=== PATIENT | male | born 1945 | race Caucasian/White ===

== ENCOUNTER → 2016-05-07 | Outpatient (REF) | payer MEDICARE ==
[~2016-05-07] MED LIST: ASPI81TA45 PO; CITA20TA4 PO; CO Q1CAP PO; CORE3.12 PO; ECHI80CA PO; FURO40TA2 PO; GLIP10TA6 PO; VITAD1000T PO
[2016-05-08 11:35] LABS: ALBUMIN 3.4 GM/DL (3.2-5.2); ALBUMIN/GLOBULIN RATIO 0.87 (1.00-1.93); BILIRUBIN,TOTAL 0.4 MG/DL (0.2-1.0); CALCIUM LEVEL 8.8 MG/DL (8.8-10.2); CREATININE FOR GFR 1.91 MG/DL (0.70-1.30); FOLATE 6.1 NG/ML (>5.4); GLOMERULAR FILTRATION RATE 37.2 (>42); POTASSIUM SERUM 4.4 MEQ/L (3.5-5.1); TOTAL PROTEIN 7.3 GM/DL (6.4-8.2)
[2016-05-08 11:41] LABS: BASO # 0.1 K/mm3 (0.0-0.2); BASO % 1.1 % (0.0-1.0); EOS # 0.2 K/mm3 (0.0-0.50); EOS % 2.7 % (0.0-3.0); LARGE UNSTAINED CELL # 0.2 K/mm3 (0.0-0.4); LARGE UNSTAINED CELL % 3.1 % (0.0-4.0); LYMPH # 1.5 K/mm3 (1.5-4.5); LYMPH % 21.2 % (24.0-44.0); MEAN CORPUSCULAR HEMOGLOBIN 31.5 pg (27.0-33.0); MEAN CORPUSCULAR HGB CONC 32.8 g/dl (32.0-36.5); MONO # 0.4 K/mm3 (0.0-0.8); MONO % 4.9 % (0.0-5.0); NEUTROPHILS # 4.8 K/mm3 (1.8-7.7); NEUTROPHILS % 67.1 % (36.0-66.0); PLATELET COUNT, AUTOMATED 149 k/mm3 (150-450); RED CELL DISTRIBUTION WIDTH 12.4 % (11.5-14.5); WHITE BLOOD COUNT 7.1 K/mm3 (4.0-10.0)
== END ==
LOC: M SFHCCLAY 14:51
PROVIDERS: ATTEND Family Medicine
DX: R06.02 Shortness of breath (principal); D64.9 Anemia, unspecified; E11.9 Type 2 diabetes mellitus without complications

== ENCOUNTER → 2016-05-07 | Outpatient (CLI) | payer MEDICARE ==
--- NOTE | 2016-05-07 15:59 | REP ---
Chest x-ray: Two views: History: Shortness of breath and dizziness. Findings: There is a granulomatous calcification projecting in the right upper lobe. The lungs are otherwise well inflated and clear. Pleural angles are sharp. Heart size is normal. There are degenerative changes in the thoracic spine. Impression: No active disease.
== END ==
LOC: M CLY 15:07
PROVIDERS: ATTEND Family Medicine
DX: R06.02 Shortness of breath (principal); D64.9 Anemia, unspecified; Z79.82 Long term (current) use of aspirin; Z79.899 Other long term (current) drug therapy
CPT/HCPCS: 71020; 80053; 82607; 82746; 83540; 85025; 93005; G0463

== ENCOUNTER → 2016-05-30 | Outpatient (REF) | payer MEDICARE ==
[2016-05-30 11:55] LABS: CALCIUM LEVEL 8.9 MG/DL (8.8-10.2); CREATININE FOR GFR 1.67 MG/DL (0.70-1.30); GLOMERULAR FILTRATION RATE 43.4 (>42); POTASSIUM SERUM 4.7 MEQ/L (3.5-5.1)
== END ==
LOC: M LABDRAWC 11:23
PROVIDERS: ATTEND Internal Medicine Cardiovascular Disease
DX: N18.9 Chronic kidney disease, unspecified (principal); I12.9 Hypertensive chronic kidney disease with stage 1 through stage 4 chronic kidney disease, or unspecified chronic kidney disease

== ENCOUNTER 2016-08-01 17:51 | Emergency (ER) | payer MEDICARE ==
[~2016-08-01] VITALS: Ht 177.8 cm; Wt 90.7 kg
[2016-08-01 17:53] VITALS: BP 159/81
[2016-08-01] MEDS ORDERED: TOUJ1.2I SQ (18:19)
[2016-08-01] MEDS ORDERED: CLEO300C2 PO (19:08)
== END 2016-08-01 20:09 | disposition home or self-care (01) ==
LOC: M ED 19:07
DX: L97.929 Non-pressure chronic ulcer of unspecified part of left lower leg with unspecified severity (principal); I25.10 Atherosclerotic heart disease of native coronary artery without angina pectoris; I10 Essential (primary) hypertension; E10.9 Type 1 diabetes mellitus without complications; Z79.82 Long term (current) use of aspirin; Z79.899 Other long term (current) drug therapy; Z91.018 Allergy to other foods; Z88.0 Allergy status to penicillin

== ENCOUNTER → 2016-10-18 | Outpatient (REF) | payer MEDICARE ==
[~2016-10-18] MED LIST changes: +CLEO300C2 PO; +CO Q100C PO; -CO Q1CAP PO; +TOUJ1.2I SQ
[2016-10-18 11:39] LABS: CALCIUM LEVEL 8.7 MG/DL (8.8-10.2); CREATININE FOR GFR 1.61 MG/DL (0.70-1.30); GLOMERULAR FILTRATION RATE 45.3 (>42); POTASSIUM SERUM 4.3 MEQ/L (3.5-5.1)
== END ==
LOC: M SFHCCLAY 07:40
PROVIDERS: ATTEND Family Medicine
DX: E11.9 Type 2 diabetes mellitus without complications (principal)
CPT/HCPCS: 80048; 83036; G0463

== ENCOUNTER → 2017-04-23 | Outpatient (REF) | payer MEDICARE ==
[2017-04-23 11:32] LABS: BASO # 0.1 10^3/uL (0.0-0.2); BASO % 0.7 % (0.0-1.0); EOS # 0.3 10^3/uL (0.0-0.50); EOS % 2.9 % (0.0-3.0); HEMATOCRIT 36.8 % (42.0-52.0); HEMOGLOBIN 12.2 g/dl (14.0-18.0); IMMATURE GRANULOCYTE % 0.4 % (0-0); LYMPH # 1.4 10^3/uL (1.5-4.5); LYMPH % 14.3 % (24.0-44.0); MEAN CORPUSCULAR HEMOGLOBIN 31.6 pg (27.0-33.0); MEAN CORPUSCULAR HGB CONC 33.2 g/dl (32.0-36.5); MEAN CORPUSCULAR VOLUME 95.3 fl (80.0-96.0); MONO # 0.9 10^3/uL (0.0-0.8); NEUTROPHILS % 72.7 % (36.0-66.0); PLATELET COUNT, AUTOMATED 169 10^3/uL (150-450); RED BLOOD COUNT 3.86 10^6/uL (4.30-6.10); RED CELL DISTRIBUTION WIDTH 13.7 % (11.5-14.5); WHITE BLOOD COUNT 9.7 10^3/uL (4.0-10.0)
[2017-04-23 11:51] LABS: ALBUMIN 3.2 GM/DL (3.2-5.2); ALBUMIN/GLOBULIN RATIO 0.73 (1.00-1.93); ALKALINE PHOSPHATASE 65 U/L (45-117); ALT/SGPT 16 U/L (12-78); ANION GAP 7 MEQ/L (8-16); AST/SGOT 20 U/L (7-37); BILIRUBIN,TOTAL 0.5 MG/DL (0.2-1.0); BLOOD UREA NITROGEN 35 MG/DL (7-18); CALCIUM LEVEL 8.8 MG/DL (8.8-10.2); CARBON DIOXIDE LEVEL 29 MEQ/L (21-32); CHLORIDE LEVEL 103 MEQ/L (98-107); CHOLESTEROL LEVEL 229 MG/DL (<200); CHOLESTEROL RISK RATIO 6.542 (<5); GLOMERULAR FILTRATION RATE 39.7 (>42); GLUCOSE, FASTING 230 MG/DL (83-110); HDL CHOLESTEROL 35 MG/DL (>40); IRON (FE) 68 UG/DL (65-175); NON-HDL-C 194 MG/DL; POTASSIUM SERUM 4.5 MEQ/L (3.5-5.1); SODIUM LEVEL 139 MEQ/L (136-145); TOTAL PROTEIN 7.6 GM/DL (6.4-8.2); TRIGLYCERIDES LEVEL 180 MG/DL (<150)
[2017-04-23 12:39] LABS: ESTIMATED AVERAGE GLUCOSE 235 MG/DL (60-110); HEMOGLOBIN A1c 9.8 %
== END ==
LOC: M SFHCCLAY 07:32
DX: E11.29 Type 2 diabetes mellitus with other diabetic kidney complication (principal); D64.9 Anemia, unspecified
CPT/HCPCS: 83540

== ENCOUNTER → 2017-05-10 | Outpatient (REF) | payer MEDICARE ==
[2017-05-10 12:57] LABS: INFLUENZA A AMPLIFICATION NEGATIVE (NEGATIVE); INFLUENZA B AMPLIFICATION NEGATIVE (NEGATIVE); RSV AMPLIFICATION NEGATIVE (NEGATIVE)
== END ==
LOC: M LAB REF 11:58
DX: J09.X2 Influenza due to identified novel influenza A virus with other respiratory manifestations (principal)
CPT/HCPCS: 87631

== ENCOUNTER → 2017-06-28 | Outpatient (CLI) | payer MEDICARE | LOC: M RAD 12:23 | DX: R06.02 Shortness of breath (principal); I27.20 Pulmonary hypertension, unspecified | CPT/HCPCS: 71046 ==

== ENCOUNTER → 2017-07-30 | Outpatient (REF) | payer MEDICARE ==
[2017-07-31 11:40] LABS: HEMATOCRIT 35.8 % (42.0-52.0); HEMOGLOBIN 11.9 g/dl (13.5-17.5); MEAN CORPUSCULAR HEMOGLOBIN 30.8 pg (27.0-33.0); MEAN CORPUSCULAR HGB CONC 33.2 g/dl (32.0-36.5); MEAN CORPUSCULAR VOLUME 92.7 fl (80.0-96.0); PLATELET COUNT, AUTOMATED 161 10^3/uL (150-450); RED BLOOD COUNT 3.86 10^6/uL (4.30-6.10); WHITE BLOOD COUNT 8.5 10^3/uL (4.0-10.0)
[2017-07-31 11:54] LABS: ANION GAP 8 MEQ/L (8-16); BLOOD UREA NITROGEN 31 MG/DL (7-18); CALCIUM LEVEL 8.8 MG/DL (8.8-10.2); CARBON DIOXIDE LEVEL 25 MEQ/L (21-32); CHLORIDE LEVEL 107 MEQ/L (98-107); CREATININE FOR GFR 1.77 MG/DL (0.70-1.30); GLOMERULAR FILTRATION RATE 40.5 (>42); GLUCOSE, FASTING 238 MG/DL (70-100); POTASSIUM SERUM 4.4 MEQ/L (3.5-5.1); SODIUM LEVEL 140 MEQ/L (136-145)
== END ==
LOC: M SFHCCLAY 15:21
DX: R53.83 Other fatigue (principal); E11.9 Type 2 diabetes mellitus without complications; F41.9 Anxiety disorder, unspecified
CPT/HCPCS: 84443

== ENCOUNTER → 2017-10-14 | Outpatient (CLI) | payer MEDICARE | LOC: M CLY 08:06 | DX: R06.02 Shortness of breath (principal); E11.9 Type 2 diabetes mellitus without complications; D64.9 Anemia, unspecified | CPT/HCPCS: 71046; 80053 ==

== ENCOUNTER → 2017-10-14 | Outpatient (REF) | payer MEDICARE ==
[2017-10-14 11:55] LABS: BASO # 0.1 10^3/uL (0.0-0.2); BASO % 0.6 % (0.0-1.0); EOS # 0.2 10^3/uL (0.0-0.50); EOS % 2.6 % (0.0-3.0); HEMATOCRIT 34.3 % (42.0-52.0); IMMATURE GRANULOCYTE % 0.4 % (0-3.0); LYMPH # 1.1 10^3/uL (1.5-4.5); LYMPH % 12.3 % (24.0-44.0); MEAN CORPUSCULAR HEMOGLOBIN 31.1 pg (27.0-33.0); MEAN CORPUSCULAR HGB CONC 32.1 g/dl (32.0-36.5); MEAN CORPUSCULAR VOLUME 96.9 fl (80.0-96.0); MONO # 0.8 10^3/uL (0.0-0.8); MONO % 8.3 % (0.0-5.0); NEUTROPHILS # 6.9 10^3/uL (1.8-7.7); NEUTROPHILS % 75.8 % (36.0-66.0); PLATELET COUNT, AUTOMATED 171 10^3/uL (150-450); RED BLOOD COUNT 3.54 10^6/uL (4.30-6.10); RED CELL DISTRIBUTION WIDTH 14.3 % (11.5-14.5); WHITE BLOOD COUNT 9.1 10^3/uL (4.0-10.0)
[2017-10-14 12:42] LABS: ALBUMIN 2.9 GM/DL (3.2-5.2); ALBUMIN/GLOBULIN RATIO 0.78 (1.00-1.93); ALKALINE PHOSPHATASE 85 U/L (45-117); ALT/SGPT 30 U/L (12-78); ANION GAP 7 MEQ/L (8-16); AST/SGOT 14 U/L (7-37); BILIRUBIN,TOTAL 0.9 MG/DL (0.2-1.0); BLOOD UREA NITROGEN 31 MG/DL (7-18); CALCIUM LEVEL 8.6 MG/DL (8.8-10.2); CARBON DIOXIDE LEVEL 26 MEQ/L (21-32); CHLORIDE LEVEL 110 MEQ/L (98-107); CREATININE FOR GFR 1.74 MG/DL (0.70-1.30); GLOMERULAR FILTRATION RATE 41.3 (>42); GLUCOSE, FASTING 233 MG/DL (70-100); POTASSIUM SERUM 5.1 MEQ/L (3.5-5.1); SODIUM LEVEL 143 MEQ/L (136-145); TOTAL PROTEIN 6.6 GM/DL (6.4-8.2)
[2017-10-14 13:49] LABS: ESTIMATED AVERAGE GLUCOSE 192 MG/DL (60-110); HEMOGLOBIN A1c 8.3 %
== END ==
LOC: M SFHCCLAY 07:51
DX: E11.9 Type 2 diabetes mellitus without complications (principal); D64.9 Anemia, unspecified
CPT/HCPCS: 80053

== ENCOUNTER → 2017-10-18 | Outpatient (REF) | payer MEDICARE ==
[2017-10-18 11:45] LABS: ANION GAP 8 MEQ/L (8-16); BLOOD UREA NITROGEN 37 MG/DL (7-18); CARBON DIOXIDE LEVEL 29 MEQ/L (21-32); CHLORIDE LEVEL 102 MEQ/L (98-107); CREATININE FOR GFR 1.84 MG/DL (0.70-1.30); GLOMERULAR FILTRATION RATE 38.7 (>42); GLUCOSE, FASTING 334 MG/DL (70-100); POTASSIUM SERUM 4.1 MEQ/L (3.5-5.1); SODIUM LEVEL 139 MEQ/L (136-145)
== END ==
LOC: M SFHCCLAY 08:02
DX: E11.9 Type 2 diabetes mellitus without complications (principal)
CPT/HCPCS: 80048

== ENCOUNTER → 2017-12-18 | Outpatient (REF) | payer MEDICARE ==
[2017-12-18 13:08] LABS: CREATININE FOR GFR 1.67 MG/DL (0.70-1.30); GLOMERULAR FILTRATION RATE 43.3 (>42)
== END ==
LOC: M LABDRAWC 12:01
DX: Z00.00 Encounter for general adult medical examination without abnormal findings (principal)
CPT/HCPCS: 82565

== ENCOUNTER → 2018-02-13 | Outpatient (CLI) | payer MEDICARE | LOC: M SMT 09:25 | DX: J90 Pleural effusion, not elsewhere classified (principal); J98.4 Other disorders of lung; R06.02 Shortness of breath ==

== ENCOUNTER → 2018-02-13 | Outpatient (CLI) | payer MEDICARE | LOC: M CARPUL 06:40 | DX: J90 Pleural effusion, not elsewhere classified (principal); J98.4 Other disorders of lung; R06.02 Shortness of breath | CPT/HCPCS: 94060 ==

== ENCOUNTER 2018-02-16 20:20 | Inpatient (IN) | payer MEDICARE ==
[2018-02-16 20:50] LABS: BASO % 0.4 % (0.0-1.0); EOS # 0.2 10^3/uL (0.0-0.50); EOS % 2.2 % (0.0-3.0); HEMATOCRIT 34.5 % (42.0-52.0); HEMOGLOBIN 11.7 g/dl (13.5-17.5); IMMATURE GRANULOCYTE % 0.9 % (0-3.0); LYMPH # 1.1 10^3/uL (1.5-4.5); LYMPH % 12.5 % (24.0-44.0); MEAN CORPUSCULAR HEMOGLOBIN 32.3 pg (27.0-33.0); MEAN CORPUSCULAR HGB CONC 33.9 g/dl (32.0-36.5); MEAN CORPUSCULAR VOLUME 95.3 fl (80.0-96.0); MONO # 0.7 10^3/uL (0.0-0.8); NEUTROPHILS # 6.8 10^3/uL (1.8-7.7); PLATELET COUNT, AUTOMATED 139 10^3/uL (150-450); RED BLOOD COUNT 3.62 10^6/uL (4.30-6.10); RED CELL DISTRIBUTION WIDTH 13.9 % (11.5-14.5)
[2018-02-16 21:00] LABS: PROTHROMBIN TIME 13.3 SECONDS (12.1-14.4)
[2018-02-16 21:01] LABS: PARTIAL THROMBOPLASTIN TIME 30.5 SECONDS (25.4-37.6)
[2018-02-16 21:10] LABS: ABG BASE EXCESS -1.6 (-2.0-2.0); ABG HCO3 21.1 MEQ/L (22.0-26.0); ABG O2 SATURATION 93.2 % (95.0-99.0); ABG PARTIAL PRESSURE CO2 29.9 mmHg (35.0-45.0); ABG PARTIAL PRESSURE O2 65.6 mmHg (75.0-100.0); ABG pH (ARTERIAL) 7.467 UNITS (7.350-7.450)
[2018-02-16] MEDS: NORCO, ANEXSIA 5/325MG TABLET (HYDROcodone/ACETAMINOPHEN) PO (21:10)
[2018-02-16 21:52] LABS: LACTIC ACID SEPSIS PROTOCOL 2.4 MMOL/L (0.4-2.0)
[2018-02-16 21:55] LABS: ANION GAP 9 MEQ/L (8-16); BLOOD UREA NITROGEN 42 MG/DL (7-18); CALCIUM LEVEL 8.6 MG/DL (8.8-10.2); CARBON DIOXIDE LEVEL 25 MEQ/L (21-32); CHLORIDE LEVEL 105 MEQ/L (98-107); CPK CREATINE PHOSPHOKINASE 138 U/L (39-308); CREATININE FOR GFR 1.94 MG/DL (0.70-1.30); GLOMERULAR FILTRATION RATE 36.3 (>42); GLUCOSE, FASTING 299 MG/DL (70-100); MB/CK RELATIVE INDEX 3.26 (< OR =4); NT-PRO BNP 1777 PG/ML (<125); POTASSIUM SERUM 3.9 MEQ/L (3.5-5.1); SODIUM LEVEL 139 MEQ/L (136-145); TROPONIN I 0.04 NG/ML (< 0.10)
[2018-02-16] MEDS: NS 1,000 ML IV (23:28)
[2018-02-16 23:30] LABS: APPEARANCE, URINE CLEAR (CLEAR); BACTERIA, URINE AUTO NEGATIVE (NEGATIVE); BILIRUBIN, URINE AUTO NEGATIVE (NEGATIVE); BLOOD, URINE BLOOD 1+ (NEGATIVE); COLOR, URINE YELLOW (YELLOW); GLUCOSE, URINE (UA) AUTO 3+ mg/dL (NEGATIVE); KETONE, URINE AUTO NEGATIVE (NEGATIVE); LEUKOCYTE ESTERASE, URINE AUTO NEGATIVE (NEGATIVE); NITRITE, URINE AUTO NEGATIVE (NEGATIVE); PROTEIN, URINE AUTO 2+ mg/dL (NEGATIVE); RBC, URINE AUTO 4 /HPF (0-3); SPECIFIC GRAVITY URINE AUTO 1.012 (1.002-1.035); SQUAMOUS EPITHELIAL CELL UR AU 0 /HPF (0-6); UROBILINOGEN, URINE AUTO 0.2 mg/dL (0.0-2.0); WBC, URINE AUTO 2 /HPF (0-3)
[2018-02-17 00:24] LABS: D-DIMER QUANT > 4000.0 ng/ml (<500)
[2018-02-17] MEDS: LABETALOL HCL 100 MG/20 ML VIAL IV (00:26)
[2018-02-17] MEDS ORDERED: ISOVUE-370 76% 100ML VIAL (Q9967) As Ordered (00:34)
[2018-02-17] MEDS ORDERED: LORazepam 2 MG TAB PO (01:30)
[2018-02-17] MEDS ORDERED: ACETAMINOPHEN TAB 650MG DOSE (2X325MG) PO (01:30)
[2018-02-17] MEDS: CARVedilol 3.125 MG TAB PO ×2 (01:37→08:52)
[2018-02-17] MEDS: CitaloPRAM (CeleXA) 20 MG TAB PO (01:37)
[2018-02-17] MEDS: POTASSIUM CHLORIDE 10 MEQ SR TABLET PO (01:38)
[2018-02-17] MEDS: ASPIRIN 81 MG ENTERIC TAB PO ×2 (01:45→09:02)
[2018-02-17] MEDS ORDERED: GLUCAGON FOR INJ 1 MG VIAL (J1610) SC (01:45)
[2018-02-17] MEDS ORDERED: DEXTROSE 50% 50 ML SYRINGE IV (01:45)
[2018-02-17] MEDS ORDERED: GLUCOSE 4 GM CHEW TABLET PO (01:45)
[2018-02-17 02:28] LABS: BEDSIDE GLUCOSE 239 MG/DL (83-110)
[2018-02-17] MEDS: NS 1,000 ML IV (04:29)
[2018-02-17] MEDS: PERCOCET 5MG/325MG TAB PO ×2 (04:33→11:58)
[2018-02-17] MEDS: HEPARIN SOD (PORCINE) 5000 UNITS/ML VIAL SC (05:34)
[2018-02-17 06:46] LABS: HEMATOCRIT 30.6 % (42.0-52.0); HEMOGLOBIN 10.6 g/dl (13.5-17.5); MEAN CORPUSCULAR HEMOGLOBIN 32.1 pg (27.0-33.0); MEAN CORPUSCULAR HGB CONC 34.6 g/dl (32.0-36.5); MEAN CORPUSCULAR VOLUME 92.7 fl (80.0-96.0); PLATELET COUNT, AUTOMATED 132 10^3/uL (150-450); WHITE BLOOD COUNT 9.7 10^3/uL (4.0-10.0)
[2018-02-17 07:14] LABS: ALBUMIN 2.6 GM/DL (3.2-5.2); ALKALINE PHOSPHATASE 66 U/L (45-117); ALT/SGPT 23 U/L (12-78); ANION GAP 9 MEQ/L (8-16); AST/SGOT 22 U/L (7-37); BILIRUBIN,TOTAL 0.6 MG/DL (0.2-1.0); BLOOD UREA NITROGEN 41 MG/DL (7-18); CALCIUM LEVEL 7.8 MG/DL (8.8-10.2); CARBON DIOXIDE LEVEL 22 MEQ/L (21-32); CHLORIDE LEVEL 109 MEQ/L (98-107); CREATININE FOR GFR 1.67 MG/DL (0.70-1.30); FREE T4 1.02 NG/DL (0.76-1.46); GLOMERULAR FILTRATION RATE 43.1 (>42); GLUCOSE, FASTING 210 MG/DL (70-100); NT-PRO BNP 2488 PG/ML (<125); POTASSIUM SERUM 4.1 MEQ/L (3.5-5.1); SODIUM LEVEL 140 MEQ/L (136-145); TOTAL PROTEIN 6.3 GM/DL (6.4-8.2)
[2018-02-17] MEDS: HumaLOG INSULIN (NovoLOG) PER UNIT SC ×2 (08:50→12:00)
[2018-02-17] MEDS: VITAMIN D 1,000 INTERNATIONAL UNITS TABLET PO (08:51)
[2018-02-17] MEDS: glipiZIDE (GLUCOTROL) 5 MG TAB PO (08:51)
[2018-02-17] MEDS: TORSEMIDE 20 MG TAB PO (08:52)
[2018-02-17] MEDS ORDERED: PANTOPRAZOLE 40MG INJ (PROTONIX) (C9113) IV (09:00)
[2018-02-17] MEDS ORDERED: SLF 3 ML SYR IV ×2 (11:30→14:00)
[2018-02-17 11:53] LABS: BEDSIDE GLUCOSE 184 MG/DL (83-110)
[2018-02-17 14:31] LABS: ESTIMATED AVERAGE GLUCOSE 206 MG/DL (60-110); HEMOGLOBIN A1c 8.8 %
[2018-02-17 14:58] LABS: LDH LACTATE DEHYDROGENASE 225 U/L (87-241)
[2018-02-17] MEDS ORDERED: MIDAZOLAM HCL 100 MG in D5W 80 ML IV (15:09)
[2018-02-17] MEDS ORDERED: MIDAZOLAM INJ 2 MG/2 ML VIAL (J2250) As Ordered (15:11)
[2018-02-17] MEDS: MIDAZOLAM INJ 2 MG/2 ML VIAL (J2250) IV (15:13)
[2018-02-17] MEDS ORDERED: REFRIGERATOR IV KEYS XX ×2 (15:15)
[2018-02-17] MEDS ORDERED: LIDOCAINE 2% MDV 20 ML VIAL As Ordered (15:20)
[2018-02-17] MEDS ORDERED: NOREPINEPHRINE 4 MG/4 ML AMP As Ordered (15:22)
[2018-02-17] MEDS: NOREPINEPHRINE BITARTRATE 8 MG in D5W 492 ML IV (15:32)
[2018-02-17] MEDS: MIDAZOLAM HCL 100 MG in D5W 80 ML IV (15:34)
[2018-02-17 15:59] LABS: BASO # 0.1 10^3/uL (0.0-0.2); BASO % 0.5 % (0.0-1.0); EOS # 0.3 10^3/uL (0.0-0.50); HEMATOCRIT 33.4 % (42.0-52.0); IMMATURE GRANULOCYTE % 3.1 % (0-3.0); LYMPH # 3.2 10^3/uL (1.5-4.5); LYMPH % 24.4 % (24.0-44.0); MEAN CORPUSCULAR HEMOGLOBIN 32.3 pg (27.0-33.0); MEAN CORPUSCULAR HGB CONC 32.9 g/dl (32.0-36.5); MEAN CORPUSCULAR VOLUME 97.9 fl (80.0-96.0); MONO # 0.6 10^3/uL (0.0-0.8); MONO % 4.8 % (0.0-5.0); NEUTROPHILS # 8.5 10^3/uL (1.8-7.7); NEUTROPHILS % 65.2 % (36.0-66.0); PLATELET COUNT, AUTOMATED 144 10^3/uL (150-450); RED BLOOD COUNT 3.41 10^6/uL (4.30-6.10); RED CELL DISTRIBUTION WIDTH 14.4 % (11.5-14.5); WHITE BLOOD COUNT 13.1 10^3/uL (4.0-10.0)
[2018-02-17 16:15] LABS: ABG BASE EXCESS -11.6 (-2.0-2.0); ABG HCO3 12.7 MEQ/L (22.0-26.0); ABG O2 SATURATION 99.4 % (95.0-99.0); ABG PARTIAL PRESSURE CO2 24.9 mmHg (35.0-45.0); ABG PARTIAL PRESSURE O2 295.6 mmHg (75.0-100.0); ABG STANDARD HCO3 15.4 MEQ/L (22.0-26.0); ABG TOTAL CO2 13.5 MEQ/L (23.0-31.0); ABG pH (ARTERIAL) 7.327 UNITS (7.350-7.450)
[2018-02-17] MEDS ORDERED: CISATRACURIUM 200 MG in NS 480 ML IV (16:30)
[2018-02-17 16:31] LABS: ALBUMIN 2.6 GM/DL (3.2-5.2); ALBUMIN/GLOBULIN RATIO 0.58 (1.00-1.93); ALKALINE PHOSPHATASE 88 U/L (45-117); ALT/SGPT 228 U/L (12-78); ANION GAP 15 MEQ/L (8-16); AST/SGOT 269 U/L (7-37); BF MONONUCLEAR CELL % 82.2 % (0-0); BF POLYMORPHONUCLEAR CELL % 17.8 % (0-0); BILIRUBIN,TOTAL 0.6 MG/DL (0.2-1.0); BLOOD UREA NITROGEN 40 MG/DL (7-18); CALCIUM LEVEL 8.3 MG/DL (8.8-10.2); CARBON DIOXIDE LEVEL 20 MEQ/L (21-32); CHLORIDE LEVEL 103 MEQ/L (98-107); CPK CREATINE PHOSPHOKINASE 307 U/L (39-308); GLOMERULAR FILTRATION RATE 33.1 (>42); GLUCOSE, FASTING 229 MG/DL (70-100); MAGNESIUM LEVEL 2.2 MG/DL (1.8-2.4); MB/CK RELATIVE INDEX 1.56 (< OR =4); POTASSIUM SERUM 3.4 MEQ/L (3.5-5.1); RBC BODY FLUID 9 10^3/uL (<2); SODIUM LEVEL 138 MEQ/L (136-145); TOTAL PROTEIN 7.1 GM/DL (6.4-8.2); TROPONIN I 0.08 NG/ML (< 0.10); WBC BODY FLUID 404 /uL (0-10)
[2018-02-17 16:33] LABS: APPEARANCE, BODY FLUID HAZY (CLEAR); BF DIFF IF INDICATED? YES (NO); PLEURAL FL COLOR YELLOW (COLORLESS); SOURCE, BODY FLUID PLEURAL
[2018-02-17 16:37] LABS: LACTIC ACID SEPSIS PROTOCOL 7.4 MMOL/L (0.4-2.0)
[2018-02-17 16:37] LABS: AMYLASE, BODY FLUID 39 U/L (NOT ESTABLISHED); CHOLESTEROL, BODY FLUID 70 MG/DL (NOT ESTABLISHED); LDH, BODY FLUID 111 U/L (NOT ESTABLISHED); SOURCE, BODY FLUID ALBUMIN PLEURAL; SOURCE, BODY FLUID AMYLASE PLEURAL; SOURCE, BODY FLUID CHOL PLEURAL; SOURCE, BODY FLUID GLUCOSE PLEURAL; SOURCE, BODY FLUID LDH PLEURAL; SOURCE, BODY FLUID TOT PROTEIN PLEURAL; SOURCE, BODY FLUID TRIG PLEURAL; TOTAL PROTEIN, BODY FLUID 4.2 G/DL (NOT ESTABLISHED); TRIGLYCERIDE, BODY FLUID 33 MG/DL (NOT ESTABLISHED)
[2018-02-17 16:47] LABS: PH BODY FLUID 7.587 UNITS (NOT ESTABLISHED); SOURCE, BODY FLUID pH PLEURAL
[2018-02-17] MEDS ORDERED: HumaLOG INSULIN (NovoLOG) PER UNIT SC ×2 (18:00→21:00)
[2018-02-17] MEDS ORDERED: EPINEPHrine 1MG/10ML SYRINGE 1.5IN (18:34)
[2018-02-17] MEDS ORDERED: CHLORHEXIDINE ORAL RINSE 0.12%/15ML 120ML BOTTLE MT (21:00)
[2018-02-18] MEDS ORDERED: NOREPINEPHRINE BITARTRATE 8 MG in D5W 492 ML IV (03:30)
== END 2018-02-17 18:35 | disposition short-term general hospital (02) | DRG 306 ==
LOC: M ED INP 02-17 01:24 → M MSPAV 02-17 03:03 → M ED 20:20 → M PCU 02-17 11:04 → M ICU 02-17 15:04
PROC: 5A1935Z Respiratory Ventilation, Less than 24 Consecutive Hours (ICD-10-PCS; principal; 2018-02-17)
PROC: 0W9930Z Drainage of Right Pleural Cavity with Drainage Device, Percutaneous Approach (ICD-10-PCS; 2018-02-17)
PROC: 04HY32Z Insertion of Monitoring Device into Lower Artery, Percutaneous Approach (ICD-10-PCS; 2018-02-17)
PROC: 0BH17YZ Insertion of Other Device into Trachea, Via Natural or Artificial Opening (ICD-10-PCS; 2018-02-17)
DX: I35.0 Nonrheumatic aortic (valve) stenosis (principal); I46.2 Cardiac arrest due to underlying cardiac condition; I49.01 Ventricular fibrillation; J90 Pleural effusion, not elsewhere classified; Q25.1 Coarctation of aorta; R55 Syncope and collapse; I50.9 Heart failure, unspecified; E11.9 Type 2 diabetes mellitus without complications; I25.10 Atherosclerotic heart disease of native coronary artery without angina pectoris; N18.9 Chronic kidney disease, unspecified; Z79.82 Long term (current) use of aspirin; Z79.899 Other long term (current) drug therapy; Z88.0 Allergy status to penicillin; Z91.018 Allergy to other foods; I95.9 Hypotension, unspecified; I25.2 Old myocardial infarction

== ENCOUNTER 2018-04-11 10:40 | Inpatient (IN) | payer MEDICARE ==
[~2018-04-11] VITALS: Ht 177.8 cm; Wt 75.4 kg
[~2018-04-11 10:40] MED LIST changes: +ASPI1TAB PO; +Acetaminophen Tab PO; +DEXT50IN6 IV; +GLUC1INJ21 SC; +GLUC4CHW19 PO; +INSUHUMDS SC; +MAGN200T PO; +Non-Formulary Medication XX; +PERCOCET PO; +PERI12LIQ MT; +POTA10TA67 PO; +PROT40IN4 IV; +SLF3ML IV; +TORS10TA3 PO; +TORS20TA2 PO; +[UNRECOGNIZED DRUG - CODE] IV; +[UNRECOGNIZED DRUG - CODE] SC
[2018-04-11 14:00] VITALS: BP 111/60
[2018-04-11] MEDS ORDERED: AMLO10TA5 GT (15:12)
[2018-04-11] MEDS ORDERED: AMMO12LO TOP (15:19)
[2018-04-11] MEDS ORDERED: LACROIN OU (15:19)
[2018-04-11] MEDS ORDERED: DOCU5LIQ GT (15:19)
[2018-04-11] MEDS ORDERED: ASPI81CH3 GT (15:19)
[2018-04-11] MEDS ORDERED: CLON-412 GT (15:19)
[2018-04-11] MEDS ORDERED: EPOG1000 SC (15:19)
[2018-04-11] MEDS ORDERED: FURO20TA2 GT (15:24)
[2018-04-11] MEDS ORDERED: FOLI1TAB11 GT (15:24)
[2018-04-11] MEDS ORDERED: FERR325T16 GT (15:24)
[2018-04-11] MEDS ORDERED: LANTINJ4 SC (15:24)
[2018-04-11] MEDS ORDERED: INSUN SC ×2 (15:24→15:31)
[2018-04-11] MEDS ORDERED: HYDR50TA GT (15:24)
[2018-04-11] MEDS ORDERED: GLUCAGON FOR INJ 1 MG VIAL (J1610) SC PRN (15:30)
[2018-04-11] MEDS ORDERED: traZODone 25MG PER 1/2 TABLET PEG PRN (15:30)
[2018-04-11] MEDS ORDERED: POLYVINYL ALCOHOL OPHTH SOLN 15 ML(LIQUITEARS) OU PRN (15:30)
[2018-04-11] MEDS ORDERED: DEXTROSE 50% 50 ML SYRINGE IV PRN (15:30)
[2018-04-11] MEDS ORDERED: ONDANSETRON 4MG/2ML VIAL (J2405) IM PRN (15:30)
[2018-04-11] MEDS ORDERED: GLUCOSE 4 GM CHEW TABLET PO PRN (15:30)
[2018-04-11] MEDS ORDERED: METO50TA7 GT (15:31)
[2018-04-11] MEDS ORDERED: OCEA0.654 NARES (15:31)
[2018-04-11] MEDS ORDERED: RAMI1CAP21 GT (15:31)
[2018-04-11] MEDS ORDERED: QUET1TAB7 GT (15:31)
[2018-04-11] MEDS ORDERED: NYST50SS SSP (15:31)
[2018-04-11] MEDS ORDERED: RANI1SYP GT (15:31)
[2018-04-11] MEDS ORDERED: NITR0.4S14 SL (15:31)
[2018-04-11] MEDS ORDERED: COUM1TAB14 GT (15:31)
[2018-04-11] MEDS ORDERED: VITA100066 GT (15:33)
[2018-04-11] MEDS ORDERED: APAP325T4 GT (15:33)
[2018-04-11] MEDS ORDERED: CITA-230 GT (15:33)
[2018-04-11] MEDS ORDERED: VITA500T GT (15:37)
[2018-04-11] MEDS ORDERED: GUAI100S27 PO (15:37)
[2018-04-11] MEDS ORDERED: THERTAB30 GT (15:37)
[2018-04-11] MEDS ORDERED: HEPA10004 INJ (15:42)
[2018-04-11] MEDS ORDERED: MIRA3350 PO (15:42)
[2018-04-11] MEDS ORDERED: SYST1SOL OU (15:42)
[2018-04-11] MEDS ORDERED: INSUR SC (15:56)
[2018-04-11] MEDS ORDERED: WARFARIN SOD 4 MG TAB PO ONE (17:00)
[2018-04-11] MEDS: CHLORHEXIDINE GLUCONATE 0.12 % 15ML UDC (PERIDEX ORAL RINSE) MT SCH ×2 (17:09→20:06)
--- NOTE | 2018-04-11 17:19 | CR.PDOC ---
General Date of Consultation: Apr 11, 2017 Consultation REASON FOR CONSULTATION/CHIEF COMPLAINT: This is a 73 y/o male here for acute rehab s/p 6-vessel bypass and aortic valve replacement at [facility] on 02/21/18. HISTORY OF PRESENT ILLNESS: This patient initially was hospitalized at our facility in Feb 2018 for syncope work up and found incidentally to have a pleural effusion of which he ultimately ended up receiving a chest tube for. He unfortunately sustained a cardiac event in the hospital at that time, he went into coarse ventricular fibrillation requiring defibrillation and ICU stay with intubation, the ultimate decision was made to life flight the patient out of the hospital to [facility] for cardiac procedure and aortic valve replacement. Upon review of patients lengthy hospital stay in [facility] it seems like he had under gone 6 vessel bypass and AV replacement but this was complicated post-op by anuria, and difficulty with weaning from vent. IABP was apparently placed POD #3. He was also given TPN. He ultimately received a tracheostomy POD #7 according to records. He was maintained on vasopressors as well in ICU and treated with ciprofloxacin, vancomycin and aztreonam for supposed sepsis, he did have a sputum culture that was positive for GNR and was found to have a possible left sided pneumonia. He had poor output post-op anuric and received CRRT while hospitalized at [facility] ICU. Hematology was also consulted for thrombocytopenia and placed on IV argatroban due to worsening thrombocytopenia until a repeat (first KITTY negative) KITTY confirmed negative HIT. He did experience bradycardia and junctional rhythm while in ICU, AV paced. According to notes, he was eventually weaned off of vasopressors and renal function did improve. PEG tube had been placed on 03.14.18. B/L chest tubes were removed on 04.10.18. He also experienced post-op a. fib and was started on and remains on Coumadin for this. ALLERGIES: Please see below. HOME MEDICATIONS: Please see below. PAST MEDICAL HISTORY: CHF Squamous cell cancer Depression DM PAST SURGICAL HISTORY: cardiac cath back surgery skin biopsies FAMILY HISTORY: mother had DM2 and HTN Father had history of [facility] SOCIAL HISTORY: non smoker, no ETOH use or drug use REVIEW OF SYSTEMS: CONSTITUTIONAL: patient denies discomfort on exam, states he feels well HEENT: no change in vision or headache CARDIOVASCULAR: no chest pain, palpitations or syncope RESPIRATORY: no cough or wheezing or SOB GENITOURINARY: no pain with urination, patient is making good urine output MUSCULOSKELETAL: no new muscle aches or joint pain GASTROINTESTINAL: no constipation PHYSICAL EXAMINATION: VITAL SIGNS: Please see below. GENERAL APPEARANCE: NAD, comfortable, no complaints on exam HEENT: EOMI, nares patent b/l, moist mucus membranes RESPIRATORY: cta b/l, no wheezing, rales or rhonchi CARDIOVASCULAR: normal s1, s2, no murmurs, rubs or gallops ABDOMEN: nabsx4, no pain on palpitation, peg tube in place with good ouput of tube feeds without surrounding erythema or pus/blood exudation, no distension, no rebound, no guarding EXTREMITIES: no swelling, cyanosis or mottling NEUROLOGICAL: no focal deficits PSYCHIATRIC: affect appropriate SKIN: well healed chest tube insertion sites b/l lower thoracic posteriorly, well healed mid-line sternotomy site without hypertrophy, erythema, pus or blood exudation, peg tube site as described above, right femoral access line site is well healed LABORATORY DATA: Please see below. ASSESSMENT/PLAN: 1. CAD s/p cardiac cath and CABG -continue Coumadin, daily INR'v-wav-mrifyzccnto this morning 1.26, recheck in AM, dose adjustment recommendation based upon that -continue with aspirin daily -CBC with diff pending, pt documented to be thrombocytopenic on recent hospitalization at [facility] 2. HTN -BP appears acceptable at this time, can c/w Norvasc, hydralazine, clonidine, Lasix and ramipril with Lopressor 3. DM2 -c/w sliding scale insulin -c/w 12 units levemir daily -monitor BS -HgA1C pending, BMP pending 4. PEG tube -would consider this admission bed side swallow eval and pending results possible PO trial if able -continue tube feeds as ordered for now 5. Constipation -can continue with bowel regimen mediations 6. History of AKF s/p CABG/AV replacement -kidney function seems improved, he is making good urine output without difficulty, continue to monitor cr/gfr with bmp 7. History of a. fib post-operatively -appears to be in NSR now, c/w coumidin at current dose, noted to be sub- therapeutic, await INR in AM, possible adjustments based upon that 8. Depression -can continue with home celexa 9. DVT px -pt is on Coumadin therapy Vital Signs/I&O Vital Signs Date Time Temp Pulse Resp B/P (MAP) Pulse Ox O2 Delivery O2 Flow Rate FiO2 04/11/18 14:00 97.5 67 20 111/60 (77) 99 Room Air Allergies Coded Allergies: [place] (Verified Allergy, Severe, ANAPHYLAXIS, 11/09/14) Penicillins (Verified Allergy, Severe, ANAPHYLAXIS, 08/04/14) Metformin (Verified Allergy, Unknown, 02/16/18) Statins (Verified Allergy, Unknown, 02/16/18) Duloxetine (Unverified Adverse Reaction, Unknown, N/V, 04/11/18) Home Medications Scheduled (Aspirin Childrens) 81 Mg Chw, 81 MG GT DAILY, (Reported) (Theragran-M) 1 Tab Tab, 1 TAB GT DAILY, (Reported) Amlodipine Besylate (Amlodipine Besylate) 10 Mg Tab, 10 MG GT DAILY, (Reported) Ascorbic Acid (Vitamin C) 500 Mg Tab, 500 MG GT DAILY, (Reported) Cholecalciferol (Vitamin D) 1,000 Unit Tab, 1,000 UNIT GT DAILY, (Reported) Citalopram Hydrobromide (Citalopram) 20 Mg Tab, 10 MG GT DAILY, (Reported) Clonidine Hydrochloride (Clonidine HCl) 0.1 Mg Tab, 0.1 MG GT BID, (Reported) HOLD FOR SYSTOLIC BP <120 Docusate Sodium (Docusate Sodium) 50 Mg/5 Ml Liq, 10 ML GT BID, (Reported) Epoetin Jos (Epogen) 10,000 Unit/Ml Inj, 0.3 ML SC 3XW, (Reported) NEXT DOSE DUE 04/11/18 AT 1999. SAT/SAT/SAT Ferrous Gluconate (Ferrous Gluconate) 324 Mg Tab, 324 MG GT BID, (Reported) Folic Acid (Folic Acid) 1 Mg Tab, 1 MG GT DAILY, (Reported) Furosemide (Furosemide) 20 Mg Tab, 20 MG GT DAILY, (Reported) Guaifenesin (Guaifenesin) 100 Mg/5 Ml Syp, 5 ML PO QID, (Reported) Heparin Sodium (Porcine) (Heparin Sodium) 5,000 Unit/0.5 Ml Inj, 5,000 UNIT INJ Q8H, (Reported) Hydralazine HCl (Hydralazine HCl) 50 Mg Tab, 50 MG GT Q8H, (Reported) Insulin Glargine (Lantus Solostar) 100 Unit/Ml Inj, 18 UNITS SC QHS, (Reported) Insulin Human Regular (Novolin R) 1 Ml Soln, 1 DOSE SC Q6H, (Reported) PER SLIDING SCALE, 2-9 UNITS Metoprolol Tartrate (Metoprolol Tartrate) 50 Mg Tab, 50 MG GT BID, (Reported) Nystatin (Nystatin Oral Susp) 5 Ml Susp, 5 ML SSP QID, (Reported) X 7 DAYS. Polyethylene Glycol (Systane 0.4-0.3 %) 15 Ml Mehreen, 1-2 DROP OU Q4H, (Reported) Polyethylene Glycol (Miralax) 1 Pow Pow, 17 GM PO DAILY, (Reported) dilute in 8 ounces of water or juice Ramipril (Ramipril) 1.25 Mg Cap, 1.25 MG GT QHS, (Reported) Ranitidine Hcl (Ranitidine HCl) 15 Mg/Ml Syrp, 10 ML GT QHS, (Reported) Warfarin Sod (Coumadin) 4 Mg Tab, 8 MG GT DAILY, (Reported) Scheduled PRN (Refresh Lacri-Lube) 1 Oin Oin, 1 APLCT OU DAILY PRN for DRY EYES, (Reported) Acetaminophen (Apap) 325 Mg Tab, 650 MG GT Q6H PRN for FEVER, (Reported) Ammonium Lactate (Ammonium Lactate) 12 % Lot, 1 APLCT TOP BID PRN for DRY SKIN, (Reported) Insulin Human NPH (Novolin N) 1 Ml Susp, 1 DOSE SC Q6H PRN for HIGH BLOOD SUGAR, (Reported) FOR HIGH BLOOD PRESSURE IF ENTERAL FEEDING IS INTERRUPTED. Nitroglycerin (Nitroglycerin) 0.4 Mg Sub, 0.4 MG SL Q5MP PRN for CHEST PAIN, (Reported) Quetiapine Fumerate (Quetiapine Fumarate) 25 Mg Tab, 12.5 MG GT QHS PRN for SLEEP, (Reported) Sodium Chloride ([place] Nasal [place]) 0.65 % Spr, 2 SPRAY NARES PRN PRN for ALPA, (Reported) EACH NOSTRIL GME ATTESTATION GME ATTESTATION My faculty preceptor for this patient encounter was physically present during the encounter and was fully available. All aspects of the patient interview, examination, medical decision making process, and medical care plan development were reviewed and approved by the faculty preceptor. The faculty preceptor is aware and concurs with the plan as stated in the body of this note and will attest to such by his/her cosignature. ATTENDING NOTE I have both independently examined this patient as well as reviewed the H and P. I have discussed in detail with the resident the findings and plan of treatment as documented in the resident's note. AYAN BLISS DO Apr 11, 2018 17:19 ELY BOWERS MD Apr 11, 2018 22:28
[2018-04-11] MEDS ORDERED: HumaLOG INSULIN (NovoLOG) PER UNIT SC SCH (17:30)
[2018-04-11] MEDS: HumaLOG INSULIN (NovoLOG) PER UNIT SC SCH ×2 (18:05→23:04)
[2018-04-11 19:03] LABS: CALCIUM LEVEL 8.8 MG/DL (8.8-10.2); CREATININE FOR GFR 1.77 MG/DL (0.70-1.30); GLOMERULAR FILTRATION RATE 40.3 (>42); POTASSIUM SERUM 4.9 MEQ/L (3.5-5.1)
[2018-04-11 19:13] LABS: BASO # 0.1 10^3/uL (0.0-0.2); BASO % 0.9 % (0.0-1.0); EOS # 0.3 10^3/uL (0.0-0.50); EOS % 3.6 % (0.0-3.0); HEMATOCRIT 27.9 % (42.0-52.0); LYMPH # 1.8 10^3/uL (1.5-4.5); LYMPH % 22.4 % (24.0-44.0); MEAN CORPUSCULAR HEMOGLOBIN 32.4 pg (27.0-33.0); MEAN CORPUSCULAR HGB CONC 32.3 g/dl (32.0-36.5); MEAN CORPUSCULAR VOLUME 100.4 fl (80.0-96.0); MONO # 0.6 10^3/uL (0.0-0.8); NEUTROPHILS # 5.1 10^3/uL (1.8-7.7); NEUTROPHILS % 64.5 % (36.0-66.0); PLATELET COUNT, AUTOMATED 137 10^3/uL (150-450); RED BLOOD COUNT 2.78 10^6/uL (4.30-6.10); WHITE BLOOD COUNT 7.9 10^3/uL (4.0-10.0)
[2018-04-11 20:00] VITALS: BP 132/68
[2018-04-11] MEDS: RAMIPRIL 1.25 MG CAP PO SCH (20:04)
[2018-04-11] MEDS: FERROUS GLUCONATE 324 MG TAB PEG SCH (20:04)
[2018-04-11] MEDS: cloNIDine 0.1 MG TAB GT SCH (20:05)
[2018-04-11] MEDS: CitaloPRAM (CeleXA) 10 MG TABLET PEG SCH (20:05)
[2018-04-11] MEDS: ASCORBIC ACID 500 MG TAB PEG SCH (20:05)
[2018-04-11] MEDS: METOPROLOL TART 50 MG TAB PO SCH (20:05)
[2018-04-11] MEDS: raNITIdine SYRUP 150 MG/10 ML UDC GT SCH (20:06)
[2018-04-11] MEDS: SODIUM CHLORIDE NASAL 0.65% SPRAY BTL (OCEAN) SCH ×2 (20:06→20:36)
[2018-04-11] MEDS: LEVEMIR (INSULIN DETEMIR) 1 UNITS/0.01ML SC SCH ×2 (20:06→21:26)
[2018-04-11] MEDS: traZODone 25MG PER 1/2 TABLET PEG SCH (20:06)
[2018-04-11] MEDS: BOUDREAUX'S BUTT PASTE 4OZ TOP SCH (20:08)
[2018-04-11] MEDS: **hydrALAZINE HCL** 25 MG TAB PO SCH (22:00)
[2018-04-12 06:00] VITALS: BP 142/73
[2018-04-12] MEDS: **hydrALAZINE HCL** 25 MG TAB PO SCH ×3 (06:19→20:59)
[2018-04-12] MEDS: HumaLOG INSULIN (NovoLOG) PER UNIT SC SCH ×4 (06:20→23:56)
[2018-04-12 06:43] LABS: BASO # 0.1 10^3/uL (0.0-0.2); BASO % 0.9 % (0.0-1.0); EOS # 0.3 10^3/uL (0.0-0.50); EOS % 5.3 % (0.0-3.0); HEMATOCRIT 27.8 % (42.0-52.0); HEMOGLOBIN 8.9 g/dl (13.5-17.5); LYMPH # 1.4 10^3/uL (1.5-4.5); LYMPH % 21.1 % (24.0-44.0); MEAN CORPUSCULAR HEMOGLOBIN 32.8 pg (27.0-33.0); MEAN CORPUSCULAR VOLUME 102.6 fl (80.0-96.0); MONO # 0.6 10^3/uL (0.0-0.8); MONO % 8.6 % (0.0-5.0); NEUTROPHILS # 4.1 10^3/uL (1.8-7.7); NEUTROPHILS % 63.6 % (36.0-66.0); PLATELET COUNT, AUTOMATED 143 10^3/uL (150-450); RED BLOOD COUNT 2.71 10^6/uL (4.30-6.10); WHITE BLOOD COUNT 6.4 10^3/uL (4.0-10.0)
[2018-04-12 06:48] LABS: APPEARANCE, URINE CLEAR (CLEAR); BACTERIA, URINE AUTO NEGATIVE (NEGATIVE); BILIRUBIN, URINE AUTO NEGATIVE (NEGATIVE); BLOOD, URINE BLOOD NEGATIVE (NEGATIVE); COLOR, URINE YELLOW (YELLOW); GLUCOSE, URINE (UA) AUTO NEGATIVE (NEGATIVE); KETONE, URINE AUTO NEGATIVE (NEGATIVE); LEUKOCYTE ESTERASE, URINE AUTO NEGATIVE (NEGATIVE); MUCUS, URINE SMALL (NEGATIVE); NITRITE, URINE AUTO NEGATIVE (NEGATIVE); PROTEIN, URINE AUTO 1+ mg/dL (NEGATIVE); RBC, URINE AUTO 2 /HPF (0-3); SPECIFIC GRAVITY URINE AUTO 1.013 (1.002-1.035); SQUAMOUS EPITHELIAL CELL UR AU 0 /HPF (0-6); UROBILINOGEN, URINE AUTO 0.2 mg/dL (0.0-2.0); WBC, URINE AUTO 1 /HPF (0-3)
[2018-04-12 06:57] LABS: INR 1.42; PROTHROMBIN TIME 17.5 SECONDS (12.1-14.4)
[2018-04-12 07:16] LABS: ALBUMIN 2.5 GM/DL (3.2-5.2); BILIRUBIN,TOTAL 0.6 MG/DL (0.2-1.0); CREATININE FOR GFR 1.71 MG/DL (0.70-1.30); POTASSIUM SERUM 4.3 MEQ/L (3.5-5.1); TOTAL PROTEIN 8.7 GM/DL (6.4-8.2)
[2018-04-12] MEDS: ASPIRIN 81 MG ENTERIC TAB PEG SCH (09:00)
[2018-04-12] MEDS: FERROUS GLUCONATE 324 MG TAB PEG SCH ×2 (09:00→21:00)
[2018-04-12] MEDS: CHLORHEXIDINE GLUCONATE 0.12 % 15ML UDC (PERIDEX ORAL RINSE) MT SCH ×3 (09:51→20:58)
[2018-04-12] MEDS: raNITIdine SYRUP 150 MG/10 ML UDC GT SCH ×2 (09:51→20:58)
[2018-04-12] MEDS: FOLIC ACID 1 MG TAB PEG SCH (09:51)
[2018-04-12] MEDS: amLODIPine 10 MG TAB PEG SCH (09:51)
[2018-04-12] MEDS: METOPROLOL TART 50 MG TAB PO SCH ×2 (09:52→20:59)
[2018-04-12] MEDS: FUROSEMIDE 20 MG TAB PEG SCH (09:52)
[2018-04-12] MEDS: SODIUM CHLORIDE NASAL 0.65% SPRAY BTL (OCEAN) SCH ×2 (09:52→21:00)
[2018-04-12] MEDS: cloNIDine 0.1 MG TAB GT SCH ×2 (09:52→21:01)
[2018-04-12] MEDS: ASCORBIC ACID 500 MG TAB PEG SCH ×2 (09:52→21:00)
[2018-04-12] MEDS: BOUDREAUX'S BUTT PASTE 4OZ TOP SCH ×2 (09:53→21:00)
--- NOTE | 2018-04-12 12:29 | NUR ---
Recommend continuing NPO status at this time with PEG tube continuous feedings as primary source of nutrition. Carl free nectar thick water protocol in place with the following recommendations: Pt. may consume nectar thick water, straws ok, once oral care has been completed and while in an upright position. Pt. demonstrates post-extubation dysphagia characterized by: delayed swallow onset, decreased laryngeal elevation, and throat clearance with thin liquid intake Addendum: 04/12/18 at 1232 by JANINA HUITRON Amended: Links added.
[2018-04-12 14:00] VITALS: BP 123/64
--- NOTE | 2018-04-12 15:13 | HPEPDOC ---
Handling Tech Note DATE OF ADMISSION: Apr 11, 2018 at 13:45 SOURCE OF ADMISSION INFORMATION: Patient and [facility] records CHIEF COMPLAINT: debility secondary to CABG, AVR, and vent-dependent respiratory failure HISTORY OF PRESENT ILLNESS: 73M pmh Aortic stenosis, CAD, DM2, CKD who presented initially to [facility] ED with a syncopal episode and went into cardiac arrest twice, was resuscitated and transferred to [facility] on vasopressors. He was admitted to the ICU where a chest tube was placed for a right sided pleural effusion. Cardiology was consulted for severe aortic stenosis and EF of 40% noted on his ROSEANN. He underwent a 6 vessel CABG on 02-21-18 in addition to an aortic valve replacement performed by Dr. Mccloud. He continued to require ventilatory and v asopressors/inotrope support and an intra-aortic balloon pump was placed on 02-24-18. There was concern for a possible pneumonia for which he was placed on empiric antibiotics. He was seen by renal for worsening creatinine and a had PermCath placement for dialysis in addition to being diuresed. He had episodes of junctional rhythm with bradycardia and was unable to tolerate beta-blockers for many days, however this did resolve. He had a PEG tube placed on 03-14-18 and he was weaned off of the vent with eventual decannulation on 04-04-18. He developed post-op Afib and was started on COumadin. Additionally he had thrombocytopenaia and was treated with argatroban. On POD43 he was transferred out of the ICU, chest tubes removed on 04-10-18, was evaluated by therapy and found to have significant deconditioning and deemed medically appropriate for discharge to ARU on 04-11-18. REVIEW OF SYSTEMS: The following is a completed review of systems and has been reviewed. Review of systems otherwise unremarkable. PAIN: Patient self reports no pain EYES: Negative for recent vision changes or pain EARS, NOSE, & THROAT: +dysphagia CARDIOVASCULAR: denies chest pain or palpitations, +CABG PULMONARY: Negative. Denies shortness of breath, +trach stoma GASTROINTESTINAL: Negative for diarrhea/constipation, +PEG GENITOURINARY: Negative for dysuria MUSCULOSKELETAL: +LE weakness NEUROLOGICAL: no seizure or tremor SKIN: multiple chest tube incisions, sternotomy scar, trach stoma PSYCHIATRIC: Unremarkable All other review of systems found to be negative. PAST MEDICAL HISTORY: Aortic stenosis, CAD, DM2, CKD, HTN, recent respiratory failure, HTN PAST SURGICAL HISTORY: CABGx6 vessels, and AVR , left LE vein harvesting ALLERGIES: Please see below. MEDICATIONS: Please see below. FAMILY HISTORY: non-contributory SOCIAL HISTORY: Lives with , denies smoking or ETOH, retired, enjoys hunting DIET: NPO, PEG feeds PHYSICAL EXAMINATION: VITAL SIGNS: Please see below. GENERAL: Pleasant and cooperative. No acute distress. HEENT: PERRL. Extraocular movements intact. Clear conjunctiva, +trach stoma CARDIOVASCULAR: Iregular rate and rhythm. No murmurs, rubs, or gallops, +sternal incision LUNGS: Clear to auscultation bilaterally. No wheezes. No rhonchi ABDOMEN: Soft, nontender, nondistended. Positive bowel sounds., +PEG skin c/d/i NEUROLOGICAL: Alert and oriented times three. Cranial nerves II through XII grossly intact. Sensation grossly intact EXTREMITIES: 5\5 strength bilateral upper extremities. 4+\5 strength right lower extremity. 4+/5 strength in left lower extremity. intact range of motion in left lower extremity SKIN: bilateral chest tube incisions healing well, +sacral stage 1 ulcer, trach site and PEG site c/d/i IMAGING: Imaging documentation personally reviewed by record FUNCTIONAL STATUS: Premorbid: Independent with all activities of daily life as well as mobility On Admission: Mod Assist for ambulation with RW, mid-Mod assist for bed mobility and Mod for functional transfers. GOALS: Mod-I with RW for ambulation, Mod for grooming, bathing, dressing, showering, medical optimization, family training, assess for DMEs. ASSESSMENT:73-year-old M with past medical history of DM and aortic stenosis who presents status post CABGx6, aortic valve replacement complicated by long hospital course s/p vent-dependence and PEG for dysphagia admitted for debility. PLAN: 1. Rehab: PT/OT, METAL DRESSER- no need for sternal precautions at this time as incision >6 weeks old, plan for MBS and advance diet -Max HR 120 bpm 2. Neuro: stable 3. CArdio: s/p CABG x6 with AVR with post-op Afib- continue on metoprolol and warfarin, daily weights, medicine consulted pmh HTN-continue BP meds 4. Resp: s/p vent-dependent respiratory failure, 02 prn, Incentive spirometry and monitor for signs of infection 5. GI ppx: protonix 6. DVT ppx: on Warfarin 7. : f/u admission UA and Ucx, monitor pVRs 8. Endo: pmh DM, continue insulin coverage 9. Nutrition: continue PEG feeds with aspiration precautions 10. Skin: daily dressing changes for trach/PEG, chest tube incisions, +stage one sacral ulcer, balmex and mepilex 11. Dispo: TBD POST ADMISSION PHYSICIAN EVALUATION: Medical and functional status: Description of medical status, medical assessment: As above. Rehabilitation diagnosis and current and prior cold morbid medical conditions as above. Risk of complications and plans to mitigate them as above. Description of functional status current status is as above. Prior status as above. Status compared to preadmission: There are no clinically significant differences between the patient's current status and the information described on the preadmission screening document. Treatment plan anticipated: Treatment plan is as described above. Required disciplines including physical therapy, occupational therapy, others as noted above. Intensity of services: 3 hours a day, 6 days a week. Special considerations: There are no specific special or safety considerations that would likely preclude immediate implementation of an intensive rehabilitation program or subsequently influence the plan of care ATTESTATION: Considering all the information above, it is my best judgment that this patient requires intensive rehabilitation therapy as described above and an inpatient hospital environment due to the complexity of nursing, medical, and rehabilitation needs required by the patient. Furthermore, this patient can reasonably be expected to participate in an benefit from an inpatient rehabilitation stay with an interdisciplinary team approach to the delivery of rehabilitation care under the direction and supervision of rehabilitation physician PROGNOSIS: Excellent ESTIMATED LENGTH OF STAY:14-18 days. PROJECTED DISCHARGE DESTINATION: Home with family support and any durable medical equipment required to increase functional safety and mobility. TIME SPENT COUNSELING AND COORDINATING INITIAL CARE: Greater than 70 minutes. Vital Signs Vital Sign - Last 24 Hours 04/11/18 04/11/18 04/11/18 04/11/18 14:00 20:00 20:04 20:05 Temp 97.5 97.5 Pulse 67 72 72 Resp 20 18 B/P (MAP) 111/60 (77) 132/68 (89) 132/68 132/68 Pulse Ox 99 99 O2 Delivery Room Air Room Air 04/11/18 04/12/18 04/12/18 04/12/18 22:00 06:00 06:19 09:51 Temp 97.3 Pulse 71 71 Resp 18 B/P (MAP) 109/58 142/73 (96) 142/73 142/73 Pulse Ox 96 O2 Delivery Room Air 04/12/18 09:52 Pulse 71 B/P (MAP) 142/73 Laboratory Data CBC/BMP Laboratory Tests 04/11/18 18:32 Red Blood Count 2.78 L, Mean Corpuscular Volume 100.4 H, Mean Corpuscular Hemog lobin 32.4, Mean Corpuscular Hemoglobin Concent 32.3, Red Cell Distribution Width 19.9 H, Neutrophils (%) (Auto) 64.5, Lymphocytes (%) (Auto) 22.4 L, Monocytes (%) (Auto) 8.0 H, Eosinophils (%) (Auto) 3.6 H, Basophils (%) (Auto) 0.9, Neutrophils # (Auto) 5.1, Lymphocytes # (Auto) 1.8, Monocytes # (Auto) 0.6, Eosinophils # (Auto) 0.3, Basophils # (Auto) 0.1, Calcium Level 8.8 04/12/18 06:23 Red Blood Count 2.71 L, Mean Corpuscular Volume 102.6 H, Mean Corpuscular Hemoglobin 32.8, Mean Corpuscular Hemoglobin Concent 32.0, Red Cell Distribution Width 20.0 H, Neutrophils (%) (Auto) 63.6, Lymphocytes (%) (Auto) 21.1 L, Monocytes (%) (Auto) 8.6 H, Eosinophils (%) (Auto) 5.3 H, Basophils (%) (Auto) 0.9, Neutrophils # (Auto) 4.1, Lymphocytes # (Auto) 1.4 L, Monocytes # (Auto) 0.6, Eosinophils # (Auto) 0.3, Basophils # (Auto) 0.1, Calcium Level 9.0, Aspartate Amino Transf (AST/SGOT) 22, Alanine Aminotransferase (ALT/SGPT) 23, Alkaline Phosphatase 130 H, Total Bilirubin 0.6, Total Protein 8.7 H, Albumin 2.5 L Labs 24H Laboratory Tests 2 04/11/18 17:54: Bedside Glucose (Misc Panel) 174H 04/11/18 18:32: Immature Granulocyte % (Auto) 0.6, White Blood Count 7.9, Red Blood Count 2.78L, Hemoglobin 9.0L, Hematocrit 27.9L, Mean Corpuscular Volume 100.4H, Mean Corpuscular Hemoglobin 32.4, Mean Corpuscular Hemoglobin Concent 32.3, Red Cell Distribution Width 19.9H, Platelet Count 137L, Neutrophils (%) (Auto) 64.5, Lymphocytes (%) (Auto) 22.4L, Monocytes (%) (Auto) 8.0H, Eosinophils (%) (Auto) 3.6H, Basophils (%) (Auto) 0.9, Neutrophils # (Auto) 5.1, Lymphocytes # (Auto) 1.8, Monocytes # (Auto) 0.6, Eosinophils # (Auto) 0.3, Basophils # (Auto) 0.1, Nucleated Red Blood Cells % (auto) 0.0, Anion Gap 6L, Glomerular Filtration Rate 40.3L, Estimated Mean Plasma Glucose 126H, Hemoglobin A1c 6.0, Blood Urea Nitrogen 59H, Creatinine 1.77H, Sodium Level 139, Potassium Level 4.9, Chloride Level 106, Carbon Dioxide Level 27, Calcium Level 8.8 04/11/18 19:54: Bedside Glucose (Misc Panel) 177H 04/11/18 22:54: Bedside Glucose (Misc Panel) 166H 04/12/18 06:08: Bedside Glucose (Misc Panel) 178H 04/12/18 06:21: Urine Appearance CLEAR, Urine Color YELLOW, Urine pH 7.0, Urine Specific [place] 1.013, Urine Protein 1+H, Urine Glucose (UA) NEGATIVE, Urine Ketones NEGATIVE, Urine Urobilinogen 0.2, Urine Bilirubin NEGATIVE, Urine Leukocyte Esterase NEGATIVE, Urine Blood NEGATIVE, Urine Nitrite NEGATIVE, Urine WBC (Auto) 1, Urine RBC (Auto) 2, Urine Hyaline Casts (Auto) 0, Urine Bacteria (Auto) NEGATIVE, Urine Squamous Epithelial Cells 0, Urine Mucus (Auto) SMALL, Urine Sperm (Auto) 04/12/18 06:23: Immature Granulocyte % (Auto) 0.5, White Blood Count 6.4, Red Blood Count 2.71L, Hemoglobin 8.9L, Hematocrit 27.8L, Mean Corpuscular Volume 102.6H, Mean Corpuscular Hemoglobin 32.8, Mean Corpuscular Hemoglobin Concent 32.0, Red Cell Distribution Width 20.0H, Platelet Count 143L, Neutrophils (%) (Auto) 63.6, Lymphocytes (%) (Auto) 21.1L, Monocytes (%) (Auto) 8.6H, Eosinophils (%) (Auto) 5.3H, Basophils (%) (Auto) 0.9, Neutrophils # (Auto) 4.1, Lymphocytes # (Auto) 1.4L, Monocytes # (Auto) 0.6, Eosinophils # (Auto) 0.3, Basophils # (Auto) 0.1, Nucleated Red Blood Cells % (auto) 0.3H, Prothrombin Time 17.5H, Prothromb Time International Ratio 1.42, Anion Gap 7L, Glomerular Filtration Rate 42.0, Blood Urea Nitrogen 56H, Creatinine 1.71H, Sodium Level 141, Potassium Level 4.3, Chloride Level 107, Carbon Dioxide Level 27, Calcium Level 9.0, Aspartate Amino Transf (AST/SGOT) 22, Alanine Aminotransferase (ALT/SGPT) 23, Alkaline Phosphatase 130H, Total Bilirubin 0.6, Total Protein 8.7H, Albumin 2.5L, Albumin/Globulin Ratio 0.40L 04/12/18 11:32: Bedside Glucose (Misc Panel) 145H FSBS Laboratory Tests Test 04/11/18 17:54 04/11/18 19:54 04/11/18 22:54 04/12/18 06:08 Range/Units Bedside Glucose (Misc Panel) 174 177 166 178 83-110 MG/DL Test 04/12/18 11:32 Range/Units Bedside Glucose (Misc Panel) 145 83-110 MG/DL Microbiology Microbiology 04/12/18 Urine Culture, Received Pending Home Medications Scheduled (Aspirin Childrens) 81 Mg Chw, 81 MG GT DAILY, (Reported) (Theragran-M) 1 Tab Tab, 1 TAB GT DAILY, (Reported) Amlodipine Besylate (Amlodipine Besylate) 10 Mg Tab, 10 MG GT DAILY, (Reported) Ascorbic Acid (Vitamin C) 500 Mg Tab, 500 MG GT DAILY, (Reported) Cholecalciferol (Vitamin D) 1,000 Unit Tab, 1,000 UNIT GT DAILY, (Reported) Citalopram Hydrobromide (Citalopram) 20 Mg Tab, 10 MG GT DAILY, (Reported) Clonidine Hydrochloride (Clonidine HCl) 0.1 Mg Tab, 0.1 MG GT BID, (Reported) HOLD FOR SYSTOLIC BP <120 Docusate Sodium (Docusate Sodium) 50 Mg/5 Ml Liq, 10 ML GT BID, (Reported) Epoetin Jos (Epogen) 10,000 Unit/Ml Inj, 0.3 ML SC 3XW, (Reported) NEXT DOSE DUE 04/11/18 AT 2000. MON/WED/FRI Ferrous Gluconate (Ferrous Gluconate) 324 Mg Tab, 324 MG GT BID, (Reported) Folic Acid (Folic Acid) 1 Mg Tab, 1 MG GT DAILY, (Reported) Furosemide (Furosemide) 20 Mg Tab, 20 MG GT DAILY, (Reported) Guaifenesin (Guaifenesin) 100 Mg/5 Ml Syp, 5 ML PO QID, (Reported) Heparin Sodium (Porcine) (Heparin Sodium) 5,000 Unit/0.5 Ml Inj, 5,000 UNIT INJ Q8H, (Reported) Hydralazine HCl (Hydralazine HCl) 50 Mg Tab, 50 MG GT Q8H, (Reported) Insulin Glargine (Lantus Solostar) 100 Unit/Ml Inj, 18 UNITS SC QHS, (Reported) Insulin Human Regular (Novolin R) 1 Ml Soln, 1 DOSE SC Q6H, (Reported) PER SLIDING SCALE, 2-9 UNITS Metoprolol Tartrate (Metoprolol Tartrate) 50 Mg Tab, 50 MG GT BID, (Reported) Nystatin (Nystatin Oral Susp) 5 Ml Susp, 5 ML SSP QID, (Reported) X 7 DAYS. Polyethylene Glycol (Systane 0.4-0.3 %) 15 Ml Mehreen, 1-2 DROP OU Q4H, (Reported) Polyethylene Glycol (Miralax) 1 Pow Pow, 17 GM PO DAILY, (Reported) dilute in 8 ounces of water or juice Ramipril (Ramipril) 1.25 Mg Cap, 1.25 MG GT QHS, (Reported) Ranitidine Hcl (Ranitidine HCl) 15 Mg/Ml Syrp, 10 ML GT QHS, (Reported) Warfarin Sod (Coumadin) 4 Mg Tab, 8 MG GT DAILY, (Reported) Scheduled PRN (Refresh Lacri-Lube) 1 Oin Oin, 1 APLCT OU DAILY PRN for DRY EYES, (Reported) Acetaminophen (Apap) 325 Mg Tab, 650 MG GT Q6H PRN for FEVER, (Reported) Ammonium Lactate (Ammonium Lactate) 12 % Lot, 1 APLCT TOP BID PRN for DRY SKIN, (Reported) Insulin Human NPH (Novolin N) 1 Ml Susp, 1 DOSE SC Q6H PRN for HIGH BLOOD SUGAR, (Reported) FOR HIGH BLOOD PRESSURE IF ENTERAL FEEDING IS INTERRUPTED. Nitroglycerin (Nitroglycerin) 0.4 Mg Sub, 0.4 MG SL Q5MP PRN for CHEST PAIN, (Reported) Quetiapine Fumerate (Quetiapine Fumarate) 25 Mg Tab, 12.5 MG GT QHS PRN for SLEEP, (Reported) Sodium Chloride ([place] Nasal [place]) 0.65 % Spr, 2 SPRAY NARES PRN PRN for ALPA, (Reported) EACH NOSTRIL Allergies Coded Allergies: [place] (Verified Allergy, Severe, ANAPHYLAXIS, 11/09/14) Penicillins (Verified Allergy, Severe, ANAPHYLAXIS, 08/04/14) Metformin (Verified Allergy, Unknown, 02/16/18) Statins (Verified Allergy, Unknown, 02/16/18) Duloxetine (Unverified Adverse Reaction, Unknown, N/V, 04/11/18) CACHORRO MEDEL MD Apr 12, 2018 13:58
[2018-04-12] MEDS ORDERED: SALIVA SUBSTITUTE(MOUTHKOTE) BTL MT PRN (15:15)
[2018-04-12 20:00] VITALS: BP 136/71
[2018-04-12] MEDS: LEVEMIR (INSULIN DETEMIR) 1 UNITS/0.01ML SC SCH (20:58)
[2018-04-12] MEDS: RAMIPRIL 1.25 MG CAP PO SCH (20:59)
[2018-04-12] MEDS: CitaloPRAM (CeleXA) 10 MG TABLET PEG SCH (20:59)
[2018-04-12] MEDS: traZODone 25MG PER 1/2 TABLET PEG SCH (21:00)
[2018-04-13 06:00] VITALS: BP 124/68
[2018-04-13] MEDS: HumaLOG INSULIN (NovoLOG) PER UNIT SC SCH ×3 (06:37→18:00)
[2018-04-13 06:38] VITALS: BP 124/70
[2018-04-13] MEDS: **hydrALAZINE HCL** 25 MG TAB PO SCH ×3 (06:38→22:00)
[2018-04-13 06:57] LABS: INR 1.54; PROTHROMBIN TIME 18.7 SECONDS (12.1-14.4)
[2018-04-13] MEDS: FERROUS GLUCONATE 324 MG TAB PEG SCH ×2 (09:00→21:00)
[2018-04-13] MEDS: ASPIRIN 81 MG ENTERIC TAB PEG SCH (09:00)
[2018-04-13] MEDS: FOLIC ACID 1 MG TAB PEG SCH (10:01)
[2018-04-13] MEDS: CHLORHEXIDINE GLUCONATE 0.12 % 15ML UDC (PERIDEX ORAL RINSE) MT SCH ×3 (10:01→21:00)
[2018-04-13] MEDS: ASCORBIC ACID 500 MG TAB PEG SCH ×2 (10:02→21:09)
[2018-04-13] MEDS: cloNIDine 0.1 MG TAB GT SCH ×2 (10:02→21:07)
[2018-04-13] MEDS: FUROSEMIDE 20 MG TAB PEG SCH (10:02)
[2018-04-13] MEDS: amLODIPine 10 MG TAB PEG SCH (10:02)
[2018-04-13] MEDS: SODIUM CHLORIDE NASAL 0.65% SPRAY BTL (OCEAN) SCH ×2 (10:03→21:00)
[2018-04-13] MEDS: BOUDREAUX'S BUTT PASTE 4OZ TOP SCH ×2 (10:03→21:11)
[2018-04-13] MEDS: METOPROLOL TART 50 MG TAB PO SCH ×2 (10:03→21:10)
--- NOTE | 2018-04-13 10:12 | NUR ---
Recommend pureed pleasure feedings and to continue [place]ito free nectar thick water protocol pending MBS completion. Addendum: 04/13/18 at 1013 by JANINA HUITRON JR Amended: Links added.
[2018-04-13] MEDS: raNITIdine SYRUP 150 MG/10 ML UDC GT SCH ×2 (10:13→21:07)
[2018-04-13 14:00] VITALS: BP 129/68
[2018-04-13 20:00] VITALS: BP 126/64
[2018-04-13] MEDS: traZODone 25MG PER 1/2 TABLET PEG SCH (21:08)
[2018-04-13] MEDS: CitaloPRAM (CeleXA) 10 MG TABLET PEG SCH (21:08)
[2018-04-13] MEDS: RAMIPRIL 1.25 MG CAP PO SCH (21:09)
[2018-04-13] MEDS: LEVEMIR (INSULIN DETEMIR) 1 UNITS/0.01ML SC SCH (21:11)
[2018-04-14] MEDS: HumaLOG INSULIN (NovoLOG) PER UNIT SC SCH ×4 (01:58→18:40)
[2018-04-14 06:00] VITALS: BP 142/72
[2018-04-14] MEDS: **hydrALAZINE HCL** 25 MG TAB PO SCH ×3 (06:03→21:40)
[2018-04-14 07:02] LABS: INR 1.47
[2018-04-14] MEDS: ASCORBIC ACID 500 MG TAB PEG SCH ×2 (08:26→21:37)
[2018-04-14] MEDS: raNITIdine SYRUP 150 MG/10 ML UDC GT SCH ×2 (08:26→21:37)
[2018-04-14] MEDS: FOLIC ACID 1 MG TAB PEG SCH (08:26)
[2018-04-14] MEDS: amLODIPine 10 MG TAB PEG SCH (08:27)
[2018-04-14] MEDS: FUROSEMIDE 20 MG TAB PEG SCH (08:27)
[2018-04-14] MEDS: cloNIDine 0.1 MG TAB GT SCH ×2 (08:27→21:00)
[2018-04-14] MEDS: METOPROLOL TART 50 MG TAB PO SCH ×2 (08:28→21:36)
[2018-04-14] MEDS: ASPIRIN 81 MG ENTERIC TAB PEG SCH (08:28)
[2018-04-14] MEDS: CHLORHEXIDINE GLUCONATE 0.12 % 15ML UDC (PERIDEX ORAL RINSE) MT SCH ×3 (08:28→21:38)
[2018-04-14] MEDS: FERROUS GLUCONATE 324 MG TAB PEG SCH (08:28)
[2018-04-14] MEDS: BOUDREAUX'S BUTT PASTE 4OZ TOP SCH ×2 (08:29→21:40)
[2018-04-14] MEDS: SODIUM CHLORIDE NASAL 0.65% SPRAY BTL (OCEAN) SCH ×2 (08:29→21:39)
[2018-04-14] MEDS ORDERED: VARIBAR PUDDING 40% w/v 230ML TUBE As Ordered ONE (12:37)
[2018-04-14] MEDS ORDERED: E-Z-PAQUE 96% w/w SUSP 176GM BTL As Ordered ONE (12:38)
[2018-04-14] MEDS ORDERED: VARIBAR NECTAR 40% w/v 240ML SUSP BTL As Ordered ONE (12:38)
--- NOTE | 2018-04-14 13:22 | IPNPDOC ---
Date Seen The patient was seen on 04/14/18. Progress Note HPI: This patient initially was hospitalized at our facility in Feb 2018 for syncope work up and found incidentally to have a pleural effusion of which he ultimately ended up receiving a chest tube for. He unfortunately sustained a cardiac event in the hospital at that time, he went into coarse ventricular fibrillation requiring defibrillation and ICU stay with intubation, the ultimate decision was made to life flight the [facility] and aortic valve replacement. Upon review of patients lengthy [facility] stay [facility] it seems like he had undergone 6 vessel bypass and AV replacement but this was complicated post-op by anuria, and difficulty with weaning from vent. IABP was apparently placed POD #3. He was also given TPN. He ultimately received a tracheostomy POD #7 according to records. He was maintained on vasopressors as well in ICU and treated with ciprofloxacin, vancomycin and aztreonam for supposed sepsis, he did have a sputum culture that was positive for GNR and was found to have a possible left sided pneumonia. He had poor output post-op anuric and received CRRT while hospitalized [facility]. Hematology was also consulted for thrombocytopenia and placed on IV argatroban due to worsening thrombocytopenia until a repeat (first KITTY negative) KITTY confirmed negative HIT. He did experience bradycardia and junctional rhythm while in ICU, AV paced. According to notes, he was eventually weaned off of vasopressors and renal function did improve. PEG tube had been placed on . B/L chest tubes were removed on 04.10.18. He also experienced post-op a. fib and was started on and remains on Coumadin for this. Denies any fevers, chills, weakness, fatigue, Headache, Chest Pain, Shortness of breath, cough, palpitations, abdominal pain, N/V/D or changes in bowel or bladder habits. PAST MEDICAL HISTORY: CHF Squamous cell cancer Depression DM PAST SURGICAL HISTORY: cardiac cath back surgery skin biopsies PE: GEN: 73yoM, appears stated age. Alert and oriented x 3. Pleasant, interactive. NAD, comfortable, no complaints on exam. HEENT: EOMI, nares patent b/l, moist mucus membranes RESPIRATORY: cta b/l, no wheezing, rales or rhonchi CARDIOVASCULAR: normal s1, s2, no murmurs, rubs or gallops ABDOMEN: no pain on palpitation, peg tube in place without surrounding erythema or pus/blood exudation, no distension, no rebound, no guarding EXTREMITIES: no swelling, cyanosis or mottling NEUROLOGICAL: no focal deficits PSYCHIATRIC: affect appropriate SKIN: well healed chest tube insertion sites b/l lower thoracic posteriorly, well healed mid-line sternotomy site, no erythema. A&P: This patient initially was hospitalized at our facility in Feb 2018 for syncope work up and found incidentally to have a pleural effusion of which he ultimately ended up receiving a chest tube for. He unfortunately sustained a cardiac event in the hospital at that time, he went into coarse ventricular fibrillation requiring defibrillation and ICU stay with intubation, the ultimate decision was made to life flight the patient out of the [facility] cardiac procedure and aortic valve replacement. Upon review of patients lengthy hospital stay [facility] it seems like he had undergone 6 vessel bypass and AV replacement but this was complicated post-op by anuria, and difficulty with weaning from vent. IABP was apparently placed POD #3. He was also given TPN. He ultimately received a tracheostomy POD #7 according to records. He was maintained on vasopressors as well in ICU and treated with ciprofloxacin, vancomycin and aztreonam for supposed sepsis, he did have a sputum culture that was positive for GNR and was found to have a possible left sided pneumonia. He had poor output post-op anuric and received CRRT while hospitalized [facility]. Hematology was also consulted for thrombocytopenia and placed on IV argatroban due to worsening thrombocytopenia until a repeat (first KITTY negative) KITTY confirmed negative HIT. He did experience bradycardia and junctional rhythm while in ICU, AV paced. According to notes, he was eventually weaned off of vasopressors and renal function did improve. PEG tube had been placed on 03.14.18. B/L chest tubes were removed on 04.10.18. He also experienced post-op a. fib and was started on and remains on Coumadin for this. 1. CAD s/p cardiac cath and CABG Continue Coumadin, received 8 mg 04/11/18, 10 mg ordered today. Continue daily INR'[id number] this morning 1.47, recheck in AM. continue with aspirin daily Plt 143. Monitor. ARU as per Dr Lezama. Pain control as per Dr Lezama. Bowel care as per Dr Lezama. ST/Peg tube as per Dr Lezama. 2. HTN Continue Norvasc, hydralazine, clonidine, Lasix, ramipril, Lopressor 3. DM2 sliding scale insulin levemir daily monitor BS HgA1C 6.0 4. History of AKF s/p CABG/AV replacement SCr 1.71. Monitor. 5. History of a. fib post-operatively Coumadin, noted to be sub-therapeutic, 10 mg po x [address] Lezama. await INR in AM, further dosing pending INR. 6. Depression Celexa 7. DVT px -pt is on Coumadin therapy VS, I&O, 24H, Fishbone Vital Signs/I&O Vital Signs Date Time Temp Pulse Resp B/P (MAP) Pulse Ox O2 Delivery O2 Flow Rate FiO2 04/14/18 08:27 120/67 04/14/18 08:27 66 04/14/18 06:00 97.3 16 99 Room Air I&O- Last 24 Hours up to 6 AM 04/14/18 06:00 Intake Total 948 ml Output Total 501 ml Balance 447 ml Laboratory Data 24H LABS Laboratory Tests 2 04/13/18 17:20: Bedside Glucose (Misc Panel) 56L 04/13/18 18:48: Bedside Glucose (Misc Panel) 116H 04/14/18 06:32: Prothrombin Time 18.0H, Prothromb Time International Ratio 1.47 Microbiology Microbiology 04/12/18 Urine Culture - Final, Complete Indy Lewis Apr 14, 2018 13:22 ABHILASH NUÑEZ MD Apr 19, 2018 13:59
[2018-04-14 14:00] VITALS: BP 122/63
--- NOTE | 2018-04-14 15:48 | NUR ---
[facility] completed this date to assess tolerance of oral intake. Pt presents with moderate pharyngeal phase dysphagia as characterized by pooling in the vallecular space. Pooling clears with compensatory strategies only. Recommend: Continue puree solids and upgrade liquids to thin liquids. Alternate solids and liquids frequently throughout meal. Meds crushed in puree assist followed by liquid wash using a chin tuck. Therapy to target pharyngeal strengthening exercises and mastering compensatory strategy for possible upgrade Addendum: 04/14/18 at 1551 by SOL [facility] JR Amended: Links added.
--- NOTE | 2018-04-14 16:15 | IPNPDOC ---
PM&R Progress Note DATE OF SERVICE: Apr 14, 2018 [employer] Progress Note Subjective: Patient reports he has a frontal headache and feels his sinuses congested, otherwise he is happy to be able to eat. REVIEW OF SYSTEMS: The following is a completed review of systems and has been reviewed. Review of systems otherwise unremarkable. PAIN: Patient self reports no pain EYES: Negative for recent vision changes or pain EARS, NOSE, & THROAT: +dysphagia CARDIOVASCULAR: denies chest pain or palpitations, +CABG PULMONARY: Negative. Denies shortness of breath, +trach stoma GASTROINTESTINAL: Negative for diarrhea/constipation, +PEG GENITOURINARY: Negative for dysuria MUSCULOSKELETAL: +LE weakness NEUROLOGICAL: no seizure or tremor SKIN: multiple chest tube incisions, sternotomy scar, trach stoma PSYCHIATRIC: Unremarkable All other review of systems found to be negative. PHYSICAL EXAMINATION: VITAL SIGNS: Please see below. GENERAL: Pleasant and cooperative. No acute distress. HEENT: PERRL. Extraocular movements intact. Clear conjunctiva, +trach stoma CARDIOVASCULAR: Iregular rate and rhythm. No murmurs, rubs, or gallops, +sternal incision LUNGS: Clear to auscultation bilaterally. No wheezes. No rhonchi ABDOMEN: Soft, nontender, nondistended. Positive bowel sounds., +PEG skin c/d/i NEUROLOGICAL: Alert and oriented times three. Cranial nerves II through XII grossly intact. Sensation grossly intact EXTREMITIES: 5\5 strength bilateral upper extremities. 4+\5 strength right lower extremity. 4+/5 strength in left lower extremity. intact range of motion in left lower extremity SKIN: bilateral chest tube incisions healing well, +sacral stage 1 ulcer, trach site and PEG site c/d/i ASSESSMENT:73-year-old M with past medical history of DM and aortic stenosis who presents status post CABGx6, aortic valve replacement complicated by long hospital course s/p vent-dependence and PEG for dysphagia admitted for debility. PLAN: 1. 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 Neuro: stable, however concerned he has residual right eye blurred vision since he had bilateral eye infection and she is worried about possible stroke, no slurred speech, or focal weakness, however will order MRI 3. CArdio: s/p CABG x6 with AVR with post-op Afib- continue on metoprolol and warfarin, medicine consulted pmh HTN-continue BP meds 4. Resp: s/p vent-dependent respiratory failure, 02 prn, Incentive spirometry and monitor for signs of infection- breathing comfortably 5. GI ppx: protonix 6. DVT ppx: on Warfarin 7. : admission UA and Ucx negative, monitor pVRs 8. Endo: pmh DM, continue insulin coverage 9. Nutrition: s/p PEG, on puree diet 10. Skin: daily dressing changes for trach/PEG, chest tube incisions, +stage one sacral ulcer, balmex and mepilex 11. Pain: bilateral frontal headache with sinus pressure- will start Claritin, Flonase, and nasal saline 11. Dispo: TBD, progressing towards goals Allergies Coded Allergies: Clyo (Verified Allergy, Severe, ANAPHYLAXIS, 11/09/14) Penicillins (Verified Allergy, Severe, ANAPHYLAXIS, 08/04/14) Metformin (Verified Allergy, Unknown, 02/16/18) Statins (Verified Allergy, Unknown, 02/16/18) Duloxetine (Unverified Adverse Reaction, Unknown, N/V, 04/11/18) Vital Signs Vital Signs Date Time Temp Pulse Resp B/P (MAP) Pulse Ox O2 Delivery O2 Flow Rate FiO2 04/14/18 14:00 98.0 63 20 122/63 (82) 100 Room Air Laboratory Data Labs 24H Laboratory Tests 2 04/13/18 17:20: Bedside Glucose (Misc Panel) 56L 04/13/18 18:48: Bedside Glucose (Misc Panel) 116H 04/14/18 06:32: Prothrombin Time 18.0H, Prothromb Time International Ratio 1.47 Microbiology Microbiology 04/12/18 Urine Culture - Final, Complete Current Medications Current Medications Current Medications Acetaminophen (Tylenol Tab) 650 mg Q4HP PRN PEG MILD PAIN (PS 1-4); Start 04/11/18 at 15:30 Amlodipine Besylate (Norvasc) 10 mg DAILY PEG Last administered on 04/14/18at 08:27; Start 04/12/18 at 09:00 Artificial Tears ([place]wa Tears) 2 drop TIDP PRN OU DRY EYES; Start 04/11/18 at 15:30 Ascorbic Acid (Vitamin C) 500 mg BID PEG Last administered on 04/14/18at 08:26; Start 04/11/18 at 21:00 Aspirin (Ecotrin) 81 mg DAILY PEG ; Start 04/12/18 at 09:00 Chlorhexidine Gluconate (Peridex Oral Rinse) 15 ml TID MT Last administered on 04/14/18at 08:28; Start 04/11/18 at 16:00 Citalopram Hydrobromide (CeleXA) 10 mg QHS PEG Last administered on 04/13/18 21:08; Start 04/11/18 at 21:00 Clonidine HCl (Catapres) 0.1 mg BID GT Last administered on 04/13/18at 21:07; Start 04/11/18 at 21:00 Dextrose (Dextrose 50%) 25 ml ASDIRECTED PRN IV SEE LABEL COMMENTS; Start 04/11/18 at 15:30 Ferrous Gluconate (Fergon) 324 mg BID PEG Last administered on 04/12/18at 21:00; Start 04/11/18 at 21:00 Folic Acid (Folic Acid) 1 mg DAILY PEG Last administered on 04/14/18 08:26; Start 04/12/18 at 09:00 Furosemide (Lasix) 20 mg DAILY PEG Last administered on 04/14/18at 08:27; Start 04/12/18 at 09:00 Glucagon (Glucagon) 1 mg ASDIRECTED PRN SC SEE LABEL COMMENTS; Start 04/11/18 at 15:30 Glucose (Glucose) 16 GM ASDIRECTED PRN PO SEE LABEL COMMENTS; Start 04/11/18 at 15:30 Home Med (Med Rec Complete!) ASDIRECTED XX ; Start 04/11/18 at 16:00; Stop 04/11/18 at 16:06; Status DC Hydralazine HCl (Apresoline) 25 mg Q8H PO Last administered on 04/14/18at 13:57; Start 04/11/18 at 22:00 Insulin Detemir (Levemir Insulin) 5 units QHS SC ; Start 04/14/18 at 21:00 Insulin Detemir (Levemir Insulin) 12 units QHS SC Last administered on 04/13/18at 21:11; Start 04/11/18 at 21:00; Stop 04/14/18 at 10:28; Status DC Insulin Human Lispro (HumaLOG INSULIN) SEE PROTOCOL TABLE AC SC ; Start 04/11/18 at 17:30; Stop 04/11/18 at 17:30; Status DC Insulin Human Lispro (HumaLOG INSULIN) SEE PROTOCOL TABLE Q6H SC Last administered on 04/14/18at 12:15; Start 04/11/18 at 18:00 Metoprolol Tartrate (Lopressor) 50 mg BID PO Last administered on 04/14/18 08:28; Start 04/11/18 at 21:00 Nitroglycerin (Nitrostat (1/ 150)) 0.4 mg Q5MP PRN SL CHEST PAIN; Start 04/11/18 at 15:30 Ondansetron HCl (ZOFRAN INJection) 4 mg Q6HP PRN IM NAUSEA; Start 04/11/18 at 15:30 Ramipril (Altace) 1.25 mg QPM PO Last administered on 04/13/18 21:09; Start 04/11/18 at 21:00 Ranitidine HCl (Zantac) 150 mg BID GT Last administered on 04/14/18 08:26; Start 04/11/18 at 21:00 Saliva Substitute (Mouthkote) 2 sprays Q4HP PRN MT SYMPTOM RELIEF; Start 04/12/18 at 15:15 Sodium Chloride ([place] Nasal [place]) 2 spray BID NA Last administered on 04/13/18at 10:03; Start 04/11/18 at 21:00 Trazodone HCl (Desyrel) 25 mg Q6HP PRN PEG AGITATION; Start 04/11/18 at 15:30 Trazodone HCl (Desyrel) 25 mg QHS PEG Last administered on 04/13/18 21:08; Start 04/11/18 at 21:00 Zinc Oxide ([place]s Butt Paste) sacrum (inner crease) BID TOP Last administered on 04/14/18 08:29; Start 04/11/18 at 21:00 CACHORRO MEDEL MD Apr 14, 2018 16:14
[2018-04-14] MEDS: LORATADINE 10 MG TAB PO SCH (17:00)
[2018-04-14] MEDS ORDERED: WARFARIN SOD 5 MG TAB PO ONE (17:00)
[2018-04-14] MEDS: FLUTICASONE PROP 0.05% NASAL SPRAY 16 GM (FLONASE) NARES SCH ×2 (17:01→21:46)
--- NOTE | 2018-04-14 19:24 | REP ---
COOKIE SWALLOW The procedure was performed under the direct supervision of Dr. Moser. The procedure was performed with Vianney Kim from speech pathology present. 5 ml aliquots of honey, nectar, pudding, thin, solid and soft fruit consistency barium was administered. There is no evidence of penetration or aspiration. The detailed report of this examination will be provided by speech pathology. 1.5 minutes of fluoroscopy time was utilized for this procedure. Reviewed by GARRY Workman 04/14/2018 03:47 P Electronically Signed by Jesus Moser MD 04/14/2018 07:15 P
[2018-04-14 20:00] VITALS: BP 110/62
[2018-04-14] MEDS: RAMIPRIL 1.25 MG CAP PO SCH (21:00)
[2018-04-14] MEDS: CitaloPRAM (CeleXA) 10 MG TABLET PEG SCH (21:35)
[2018-04-14] MEDS: traZODone 25MG PER 1/2 TABLET PEG SCH (21:38)
[2018-04-14] MEDS: LEVEMIR (INSULIN DETEMIR) 1 UNITS/0.01ML SC SCH (21:39)
[2018-04-15 06:00] VITALS: BP 137/71
[2018-04-15] MEDS: **hydrALAZINE HCL** 25 MG TAB PO SCH ×3 (06:23→21:48)
[2018-04-15] MEDS: HumaLOG INSULIN (NovoLOG) PER UNIT SC SCH ×4 (06:23→17:41)
[2018-04-15 07:08] LABS: BASO # 0.1 10^3/uL (0.0-0.2); EOS # 0.4 10^3/uL (0.0-0.50); EOS % 6.5 % (0.0-3.0); LYMPH # 1.3 10^3/uL (1.5-4.5); LYMPH % 21.3 % (24.0-44.0); MEAN CORPUSCULAR HEMOGLOBIN 33.5 pg (27.0-33.0); MEAN CORPUSCULAR HGB CONC 33.3 g/dl (32.0-36.5); MEAN CORPUSCULAR VOLUME 100.4 fl (80.0-96.0); MONO # 0.5 10^3/uL (0.0-0.8); MONO % 8.7 % (0.0-5.0); NEUTROPHILS # 3.7 10^3/uL (1.8-7.7); NEUTROPHILS % 62.2 % (36.0-66.0); PLATELET COUNT, AUTOMATED 113 10^3/uL (150-450); RED BLOOD COUNT 2.69 10^6/uL (4.30-6.10)
[2018-04-15 07:21] LABS: INR 1.41; PROTHROMBIN TIME 17.5 SECONDS (12.1-14.4)
[2018-04-15 07:40] LABS: CALCIUM LEVEL 8.6 MG/DL (8.8-10.2); CREATININE FOR GFR 1.56 MG/DL (0.70-1.30); GLOMERULAR FILTRATION RATE 46.7 (>42); POTASSIUM SERUM 3.8 MEQ/L (3.5-5.1)
[2018-04-15] MEDS: LORATADINE 10 MG TAB PO SCH (08:16)
[2018-04-15] MEDS: amLODIPine 10 MG TAB PEG SCH (08:16)
[2018-04-15] MEDS: FOLIC ACID 1 MG TAB PEG SCH (08:16)
[2018-04-15] MEDS: cloNIDine 0.1 MG TAB GT SCH ×2 (08:16→21:00)
[2018-04-15] MEDS: METOPROLOL TART 50 MG TAB PO SCH ×2 (08:16→21:00)
[2018-04-15] MEDS: FUROSEMIDE 20 MG TAB PEG SCH (08:16)
[2018-04-15] MEDS: BOUDREAUX'S BUTT PASTE 4OZ TOP SCH ×2 (08:17→21:47)
[2018-04-15] MEDS: raNITIdine SYRUP 150 MG/10 ML UDC GT SCH (08:17)
[2018-04-15] MEDS: CHLORHEXIDINE GLUCONATE 0.12 % 15ML UDC (PERIDEX ORAL RINSE) MT SCH ×3 (08:17→21:45)
[2018-04-15] MEDS: ASCORBIC ACID 500 MG TAB PEG SCH ×2 (08:17→21:48)
[2018-04-15] MEDS: ASPIRIN 81 MG ENTERIC TAB PEG SCH (08:17)
[2018-04-15] MEDS: FLUTICASONE PROP 0.05% NASAL SPRAY 16 GM (FLONASE) NARES SCH ×2 (08:18→21:47)
[2018-04-15] MEDS: SODIUM CHLORIDE NASAL 0.65% SPRAY BTL (OCEAN) SCH ×3 (08:18→21:45)
--- NOTE | 2018-04-15 10:14 | REP ---
MR BRAIN WITHOUT CONTRAST: HISTORY: Rule out infarction. COMPARISON: CT 02/17/2018 Small areas of increased signal intensity on diffusion and T2-weighted images are present in the right frontal and left parietal lobes. These are decreased in signal intensity on ADC images and are consistent with acute infarctions. A small focus of increased signal intensity on diffusion and T2-weighted images is present on the right parietal lobe. This is isointense in signal on ADC images and is consistent with a subacute infarction. Areas of increased signal intensity on T2-weighted images are present in the periventricular and subcortical white matter and alea. This represent small vessel ischemic disease. Scattered punctate areas of decreased signal intensity on T2 gradient echo images are present in the cerebral hemispheres. This represents hemosiderin secondary to chronic micro hemorrhage. There is no acute intraparenchymal hemorrhage, mass or midline shift. The ventricular system and cortical sulci are dilated consistent with mild volume loss. There is no extracerebral collection. Mucosal thickening is present in the sphenoid sinus. IMPRESSION: 1. 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 2. Small subacute right parietal lobe infarction. 3. Small vessel ischemic disease. 4. Mild volume loss. Electronically Signed by Jl Wren MD 04/15/2018 10:18 A
[2018-04-15 14:00] VITALS: BP 116/56
[2018-04-15] MEDS: FLUoxetine 20 MG CAP PO SCH (16:34)
[2018-04-15] MEDS: ACETAMINOPHEN TAB 650MG DOSE (2X325MG) PEG PRN (16:35)
[2018-04-15] MEDS ORDERED: WARFARIN SOD 7.5 MG TAB PO ONE (17:00)
--- NOTE | 2018-04-15 18:42 | IPNPDOC ---
PM&R Progress Note DATE OF SERVICE: Apr 15, 2018 Plant Director Progress Note Subjective: Patient reports he is feeling stronger, happy to be eating food and has persistent right eye blurriness which he has had since his bilateral eye infection. REVIEW OF SYSTEMS: The following is a completed review of systems and has been reviewed. Review of systems otherwise unremarkable. PAIN: Patient self reports no pain EYES: Negative for recent vision changes or pain EARS, NOSE, & THROAT: +dysphagia CARDIOVASCULAR: denies chest pain or palpitations, +CABG PULMONARY: Negative. Denies shortness of breath, +trach stoma GASTROINTESTINAL: Negative for diarrhea/constipation, +PEG GENITOURINARY: Negative for dysuria MUSCULOSKELETAL: +LE weakness NEUROLOGICAL: no seizure or tremor SKIN: multiple chest tube incisions, sternotomy scar, trach stoma PSYCHIATRIC: Unremarkable All other review of systems found to be negative. PHYSICAL EXAMINATION: VITAL SIGNS: Please see below. GENERAL: Pleasant and cooperative. No acute distress. HEENT: PERRL. Extraocular movements intact. Clear conjunctiva, +trach stoma CARDIOVASCULAR: Iregular rate and rhythm. No murmurs, rubs, or gallops, +sternal incision LUNGS: Clear to auscultation bilaterally. No wheezes. No rhonchi ABDOMEN: Soft, nontender, nondistended. Positive bowel sounds., +PEG skin c/d/i NEUROLOGICAL: Alert and oriented times three. Cranial nerves II through XII grossly intact. Sensation grossly intact EXTREMITIES: 5\\5 strength bilateral upper extremities. 4+\\5 strength right lower extremity. 4+/5 strength in left lower extremity. intact range of motion in left lower extremity SKIN: bilateral chest tube incisions healing well, +sacral stage 1 ulcer, trach site and PEG site c/d/i ASSESSMENT:73-year-old M with past medical history of DM and aortic stenosis who presents status post CABGx6, aortic valve replacement complicated by long hospital course s/p vent-dependence and PEG for dysphagia admitted for debility. PLAN: 1. 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 CArdio: s/p CABG x6 with AVR with post-op Afib- continue on metoprolol and warfarin, medicine consulted pmh HTN-continue BP meds 4. Resp: s/p vent-dependent respiratory failure, 02 prn, Incentive spirometry and monitor for signs of infection- breathing comfortably 5. GI ppx: protonix 6. DVT ppx: on Warfarin 7. : admission UA and Ucx negative, monitor pVRs 8. Endo: pmh DM, continue insulin coverage 9. Nutrition: s/p PEG, on puree diet, tube feeds discontinued 10. Skin: daily dressing changes for trach/PEG, chest tube incisions, +stage one sacral ulcer, balmex and mepilex 11. Pain: bilateral frontal headache with sinus pressure- continue Claritin, Flonase, and nasal saline 11. Dispo: 05-01-18, progressing towards goals Allergies Coded Allergies: [place] (Verified Allergy, Severe, ANAPHYLAXIS, 11/09/14) Penicillins (Verified Allergy, Severe, ANAPHYLAXIS, 08/04/14) Metformin (Verified Allergy, Unknown, 02/16/18) Statins (Verified Allergy, Unknown, 02/16/18) Duloxetine (Unverified Adverse Reaction, Unknown, N/V, 04/11/18) Vital Signs Vital Signs Date Time Temp Pulse Resp B/P (MAP) Pulse Ox O2 Delivery O2 Flow Rate FiO2 04/15/18 14:51 116/56 04/15/18 14:00 97.9 72 21 98 Room Air Laboratory Data CBC/BMP Laboratory Tests 04/15/18 06:50 Red Blood Count 2.69 L, Mean Corpuscular Volume 100.4 H, Mean Corpuscular Hemoglobin 33.5 H, Mean Corpuscular Hemoglobin Concent 33.3, Red Cell Distribution Width 19.4 H, Neutrophils (%) (Auto) 62.2, Lymphocytes (%) (Auto) 21.3 L, Monocytes (%) (Auto) 8.7 H, Eosinophils (%) (Auto) 6.5 H, Basophils (%) (Auto) 1.0, Neutrophils # (Auto) 3.7, Lymphocytes # (Auto) 1.3 L, Monocytes # (Auto) 0.5, Eosinophils # (Auto) 0.4, Basophils # (Auto) 0.1, Calcium Level 8.6 L Labs 24H Laboratory Tests 2 04/14/18 20:45: Bedside Glucose (Misc Panel) 103 04/15/18 01:13: Bedside Glucose (Misc Panel) 143H 04/15/18 05:51: Bedside Glucose (Misc Panel) 133H 04/15/18 06:50: Immature Granulocyte % (Auto) 0.3, White Blood Count 6.0, Red Blood Count 2.69L, Hemoglobin 9.0L, Hematocrit 27.0L, Mean Corpuscular Volume 100.4H, Mean Corpuscular Hemoglobin 33.5H, Mean Corpuscular Hemoglobin Concent 33.3, Red Cell Distribution Width 19.4H, Platelet Count 113L, Neutrophils (%) (Auto) 62.2, L ymphocytes (%) (Auto) 21.3L, Monocytes (%) (Auto) 8.7H, Eosinophils (%) (Auto) 6.5H, Basophils (%) (Auto) 1.0, Neutrophils # (Auto) 3.7, Lymphocytes # (Auto) 1.3L, Monocytes # (Auto) 0.5, Eosinophils # (Auto) 0.4, Basophils # (Auto) 0.1, Nucleated Red Blood Cells % (auto) 0.0, Prothrombin Time 17.5H, Prothromb Time International Ratio 1.41, Anion Gap 7L, Glomerular Filtration Rate 46.7, Blood Urea Nitrogen 44H, Creatinine 1.56H, Sodium Level 134L, Potassium Level 3.8, Chloride Level 101, Carbon Dioxide Level 26, Calcium Level 8.6L 04/15/18 11:55: Bedside Glucose (Misc Panel) 281H 04/15/18 16:57: Bedside Glucose (Misc Panel) 188H Microbiology Microbiology 04/12/18 Urine Culture - Final, Complete Current Medications Current Medications Current Medications Acetaminophen (Tylenol Tab) 650 mg Q4HP PRN PEG MILD PAIN (PS 1-4) Last administered on 04/15/18 16:35; Start 04/11/18 at 15:30 Amlodipine Besylate (Norvasc) 10 mg DAILY PEG Last administered on 04/15/18 08:16; Start 04/12/18 at 09:00 Artificial Tears ([place] Tears) 2 drop TIDP PRN OU DRY EYES; Start 04/11/18 at 15:30 Ascorbic Acid (Vitamin C) 500 mg BID PEG Last administered on 04/15/18 08:17; Start 04/11/18 at 21:00 Aspirin (Ecotrin) 81 mg DAILY PEG Last administered on 04/15/18 08:17; Start 04/12/18 at 09:00 Chlorhexidine Gluconate (Peridex Oral Rinse) 15 ml TID MT Last administered on 04/15/18 16:35; Start 04/11/18 at 16:00 Citalopram Hydrobromide (CeleXA) 10 mg QHS PEG Last administered on 04/14/18 21:35; Start 04/11/18 at 21:00; Stop 04/15/18 at 15:58; Status DC Clonidine HCl (Catapres) 0.1 mg BID GT Last administered on 04/15/18 08:16; Start 04/11/18 at 21:00 Dextrose (Dextrose 50%) 25 ml ASDIRECTED PRN IV SEE LABEL COMMENTS; Start 04/11/18 at 15:30 Fenofibrate (Tricor) 145 mg DAILY PO ; Start 04/16/18 at 09:00 Ferrous Gluconate (Fergon) 324 mg BID PEG Last administered on 04/12/18 21:00; Start 04/11/18 at 21:00; Stop 04/14/18 at 16:16; Status DC Fluoxetine HCl (PROzac) 20 mg DAILY PO Last administered on 04/15/18 16:34; Start 04/15/18 at 16:00 Fluticasone Propionate (Flonase 0.05% Nasal Stetson) 1 spray BID NARES Last administered on 04/15/18 08:18; Start 04/14/18 at 16:15 Folic Acid (Folic Acid) 1 mg DAILY PEG Last administered on 04/15/18 08:16; Start 04/12/18 at 09:00 Furosemide (Lasix) 20 mg DAILY PEG Last administered on 04/15/18at 08:16; Start 04/12/18 at 09:00 Glucagon (Glucagon) 1 mg ASDIRECTED PRN SC SEE LABEL COMMENTS; Start 04/11/18 at 15:30 Glucose (Glucose) 16 GM ASDIRECTED PRN PO SEE LABEL COMMENTS; Start 04/11/18 at 15:30 Home Med (Med Rec Complete!) ASDIRECTED XX ; Start 04/11/18 at 16:00; Stop 04/11/18 at 16:06; Status DC Hydralazine HCl (Apresoline) 25 mg Q8H PO Last administered on 04/15/18at 06:23; Start 04/11/18 at 22:00 Insulin Detemir (Levemir Insulin) 5 units QHS SC Last administered on 04/14/18at 21:39; Start 04/14/18 at 21:00 Insulin Detemir (Levemir Insulin) 12 units QHS SC Last administered on 04/13/18at 21:11; Start 04/11/18 at 21:00; Stop 04/14/18 at 10:28; Status DC Insulin Human Lispro (HumaLOG INSULIN) SEE PROTOCOL TABLE AC SC ; Start 04/11/18 at 17:30; Stop 04/11/18 at 17:30; Status DC Insulin Human Lispro (HumaLOG INSULIN) SEE PROTOCOL TABLE Q6H SC Last administered on 04/15/18at 17:41; Start 04/11/18 at 18:00 Loratadine (Claritin) 10 mg DAILY PO Last administered on 04/15/18at 08:16; Start 04/14/18 at 16:15 Metoprolol Tartrate (Lopressor) 50 mg BID PO Last administered on 04/15/18at 08:16; Start 04/11/18 at 21:00 Nitroglycerin (Nitrostat (1/ 150)) 0.4 mg Q5MP PRN SL CHEST PAIN; Start 04/11/18 at 15:30 Ondansetron HCl (ZOFRAN INJection) 4 mg Q6HP PRN IM NAUSEA; Start 04/11/18 at 15:30 Ramipril (Altace) 1.25 mg QPM PO Last administered on 04/13/18at 21:09; Start 04/11/18 at 21:00 Ranitidine HCl (Zantac) 150 mg BID GT Last administered on 04/15/18 08:17; Start 04/11/18 at 21:00 Saliva Substitute ([place]) 2 sprays Q4HP PRN MT SYMPTOM RELIEF; Start 04/12/18 at 15:15 Sodium Chloride ([place] Nasal Stetson) 2 spray BID NA Last administered on 04/13/18 10:03; Start 04/11/18 at 21:00; Stop 04/14/18 at 16:20; Status DC Sodium Chloride ([place] Nasal Stetson) 2 spray TID NA Last administered on 04/15/18 08:18; Start 04/14/18 at 21:00 Trazodone HCl (Desyrel) 25 mg Q6HP PRN PEG AGITATION; Start 04/11/18 at 15:30 Trazodone HCl (Desyrel) 25 mg QHS PEG Last administered on 04/14/18at 21:38; Start 04/11/18 at 21:00 Zinc Oxide ([place] Butt Paste) sacrum (inner crease) BID TOP Last administered on 04/15/18 08:17; Start 04/11/18 at 21:00 CACHORRO MEDEL MD Apr 15, 2018 18:42
[2018-04-15 20:21] VITALS: BP 108/59
[2018-04-15] MEDS ORDERED: GLUCOSE 4 GM CHEW TABLET PO PRN (21:00)
[2018-04-15] MEDS ORDERED: DEXTROSE 50% 50 ML SYRINGE IV PRN (21:00)
[2018-04-15] MEDS ORDERED: GLUCAGON FOR INJ 1 MG VIAL (J1610) SC PRN (21:00)
[2018-04-15] MEDS: RAMIPRIL 1.25 MG CAP PO SCH (21:00)
[2018-04-15] MEDS: traZODone 25MG PER 1/2 TABLET PEG SCH (21:45)
[2018-04-15] MEDS: LEVEMIR (INSULIN DETEMIR) 1 UNITS/0.01ML SC SCH (21:46)
[2018-04-15] MEDS: raNITIdine SYRUP 150 MG/10 ML UDC PO SCH (21:46)
[2018-04-16] MEDS: **hydrALAZINE HCL** 25 MG TAB PO SCH ×3 (05:57→21:17)
[2018-04-16 06:03] VITALS: BP 125/70
[2018-04-16 07:08] LABS: HEMATOCRIT 24.9 % (42.0-52.0); HEMOGLOBIN 8.3 g/dl (13.5-17.5); MEAN CORPUSCULAR HEMOGLOBIN 32.8 pg (27.0-33.0); MEAN CORPUSCULAR HGB CONC 33.3 g/dl (32.0-36.5); MEAN CORPUSCULAR VOLUME 98.4 fl (80.0-96.0); PLATELET COUNT, AUTOMATED 100 10^3/uL (150-450); RED BLOOD COUNT 2.53 10^6/uL (4.30-6.10); WHITE BLOOD COUNT 7.6 10^3/uL (4.0-10.0)
[2018-04-16 07:18] LABS: INR 1.79; PROTHROMBIN TIME 21.1 SECONDS (12.1-14.4)
[2018-04-16 07:31] LABS: ALBUMIN 2.3 GM/DL (3.2-5.2); BILIRUBIN,TOTAL 0.6 MG/DL (0.2-1.0); CALCIUM LEVEL 8.3 MG/DL (8.8-10.2); CREATININE FOR GFR 1.78 MG/DL (0.70-1.30); GLOMERULAR FILTRATION RATE 40.1 (>42); POTASSIUM SERUM 3.9 MEQ/L (3.5-5.1); TOTAL PROTEIN 7.5 GM/DL (6.4-8.2)
[2018-04-16] MEDS: raNITIdine SYRUP 150 MG/10 ML UDC PO SCH (08:37)
[2018-04-16] MEDS: ACETAMINOPHEN TAB 650MG DOSE (2X325MG) PEG PRN (08:44)
[2018-04-16] MEDS: amLODIPine 10 MG TAB PEG SCH (09:00)
[2018-04-16] MEDS: FLUoxetine 20 MG CAP PO SCH (10:00)
[2018-04-16] MEDS: HumaLOG INSULIN (NovoLOG) PER UNIT SC SCH ×4 (10:00→17:30)
[2018-04-16] MEDS: METOPROLOL TART 50 MG TAB PO SCH ×2 (10:00→21:17)
[2018-04-16] MEDS: FUROSEMIDE 20 MG TAB PEG SCH (10:00)
[2018-04-16] MEDS: FOLIC ACID 1 MG TAB PEG SCH (10:00)
[2018-04-16] MEDS: LORATADINE 10 MG TAB PO SCH (10:00)
[2018-04-16] MEDS: FENOFIBRATE 145 MG TAB (TRICOR) PO SCH (10:00)
[2018-04-16] MEDS: ASCORBIC ACID 500 MG TAB PEG SCH (10:00)
[2018-04-16] MEDS: cloNIDine 0.1 MG TAB GT SCH (10:00)
[2018-04-16] MEDS: CHLORHEXIDINE GLUCONATE 0.12 % 15ML UDC (PERIDEX ORAL RINSE) MT SCH ×3 (10:00→21:15)
[2018-04-16] MEDS: ASPIRIN 81 MG ENTERIC TAB PEG SCH (11:15)
--- NOTE | 2018-04-16 11:55 | REP ---
CHEST X-RAY: Two views. HISTORY: Question infiltrate. COMPARISON CHEST X-RAY: February 17, 2018. FINDINGS: The patient is status post median sternotomy and aortic valve replacement. Heart size is normal. The left lung is clear. Pleural angles are sharp bilaterally. There is a pleural opacity projecting in the right base measuring approximately 4.5 cm in diameter which is felt to be fissural fluid or pleural thickening. This is seen on lateral film anteriorly in the minor fissure. There are degenerative changes in the thoracic spine. There is slight wedging of what appears to be the T12 vertebral body level. This appears to be a new finding from February 17, 2018. IMPRESSION: Status post aortic valve replacement. 4.5 cm pleural opacity at the right base is felt to be intrafissural fluid and/or intrafissural pleural thickening. There is interval mild wedge compression fracture deformity at T12. Otherwise no acute disease. Electronically Signed by Jesus Moser MD 04/16/2018 05:43 P
[2018-04-16] MEDS: FLUTICASONE PROP 0.05% NASAL SPRAY 16 GM (FLONASE) NARES SCH ×2 (13:03→21:18)
[2018-04-16] MEDS: SODIUM CHLORIDE NASAL 0.65% SPRAY BTL (OCEAN) SCH ×3 (13:03→21:18)
[2018-04-16] MEDS: BOUDREAUX'S BUTT PASTE 4OZ TOP SCH ×2 (13:04→21:18)
--- NOTE | 2018-04-16 13:54 | IPNPDOC ---
Date Seen The patient was seen on 04/16/18. Progress Note HPI: This patient initially was hospitalized at our facility in Feb 2018 for syncope work up and found incidentally to have a pleural effusion of which he ultimately ended up receiving a chest tube for. He unfortunately sustained a cardiac event in the hospital at that time, he went into coarse ventricular fibrillation requiring defibrillation and ICU stay with intubation, the ultimate decision was made to life flight the patient out of the hospital to [facility] for cardiac procedure and aortic valve replacement. Upon review of patients lengthy hospital stay in [facility] it seems like he had undergone 6 vessel bypass and AV replacement but this was complicated post-op by anuria, and difficulty with weaning from vent. IABP was apparently placed POD #3. He was also given TPN. He ultimately received a tracheostomy POD #7 according to records. He was maintained on vasopressors as well in ICU and treated with ciprofloxacin, vancomycin and aztreonam for supposed sepsis, he did have a sputum culture that was positive for GNR and was found to have a possible left sided pneumonia. He had poor output post-op anuric and received CRRT while hospitalized at [facility] ICU. Hematology was also consulted for thrombocytopenia and placed on IV argatroban due to worsening thrombocytopenia until a repeat (first KITTY negative) KITTY confirmed negative HIT. He did experience bradycardia and junctional rhythm while in ICU, AV paced. According to notes, he was eventually weaned off of vasopressors and renal function did improve. PEG tube had been placed on 03.14.18. B/L chest tubes were removed on 04.10.18. He also experienced post-op a. fib and was started on and remains on Coumadin for this. Pt states he woke up chilled today, denies SOB/Sputum. The pt has been afebrile. Feels tired. Denies any fevers,Headache, Chest Pain, Shortness of breath, cough, palpitations, abdominal pain, N/V/D or changes in bowel or bladder habits. PAST MEDICAL HISTORY: CHF Squamous cell cancer Depression DM PAST SURGICAL HISTORY: cardiac cath back surgery skin biopsies PE: GEN: 73yoM, appears stated age. Alert and oriented x 3. Pleasant, interactive. NAD, comfortable, no complaints on exam. HEENT: EOMI, moist mucus membranes RESPIRATORY: cta b/l, no wheezing, rales or rhonchi CARDIOVASCULAR: normal s1, s2, no murmurs, rubs or gallops ABDOMEN: no pain on palpitation, peg tube in place without surrounding erythema or pus/blood exudation, no distension, no rebound, no guarding EXTREMITIES: no swelling, cyanosis or mottling NEUROLOGICAL: no focal deficits PSYCHIATRIC: affect appropriate SKIN: well healed chest tube insertion sites b/l lower thoracic posteriorly, well healed mid-line sternotomy site, no erythema. A&P: This patient initially was hospitalized at our facility in Feb 2018 for syncope work up and found incidentally to have a pleural effusion of which he ultimately ended up receiving a chest tube for. He unfortunately sustained a cardiac event in the hospital at that time, he went into coarse ventricular fibrillation requiring defibrillation and ICU stay with intubation, the ultimate decision was made to life flight the patient out of the hospital to [facility] for cardiac procedure and aortic valve replacement. Upon review of patients lengthy hospital stay in [facility] it seems like he had undergone 6 vessel bypass and AV replacement but this was complicated post-op by anuria, and difficulty with weaning from vent. IABP was apparently placed POD #3. He was also given TPN. He ultimately received a tracheostomy POD #7 according to records. He was maintained on vasopressors as well in ICU and treated with ciprofloxacin, vancomycin and aztreonam for supposed sepsis, he did have a sputum culture that was positive for GNR and was found to have a possible left sided pneumonia. He had poor output post-op anuric and received CRRT while hospitalized at [facility] ICU. Hematology was also consulted for thrombocytopenia and placed on IV argatroban due to worsening thrombocytopenia until a repeat (first KITTY negative) KITTY confirmed negative HIT. He did experience bradycardia and junctional rhythm while in ICU, AV paced. According to notes, he was eventually weaned off of vasopressors and renal function did improve. PEG tube had been placed on 03.14.18. B/L chest tubes were removed on 04.10.18. He also experienced post-op a. fib and was started on and remains on Coumadin for this. 1. CAD s/p cardiac cath and CABG Continue Coumadin, 10 mg ordered today. Continue daily INR'a-pxy-soxevcterqd this morning 1.79, recheck in AM. continue with aspirin daily Hgb8.3, Plt 100, trending downward. Previously followed by hematology at [facility], Dr Lezama plans to Clt Hematology for any further recommendations. Fe studies, B12, folate, FOB pending. Peripheral smear pending. ARU as per Dr Lezama. Pain control as per Dr Lezama. Bowel care as per Dr Lezama. ST/Peg tube as per Dr Lezama. 2. HTN Currently Norvasc, hydralazine, clonidine, Lasix, ramipril, Lopressor with hold parameters. 3. DM2 sliding scale insulin levemir daily monitor BS HgA1C 6.0 4. History of AKF s/p CABG/AV replacement SCr 1.78. Monitor. 5. History of a. fib post-operatively Coumadin, noted to be sub-therapeutic but trending upward, 10 mg po x [address] Lezama. await INR in AM, further dosing pending INR. CVA's likely related to Afib, could consider further work to r/o other etiologies, no acute change during ARU stay 6. Depression Celexa 7. Chills. Pt states he woke up chilled today, denies SOB/Sputum. Feels tired. The pt has been afebrile. CXR requested. UA with reflex culture pending. Respiratory panel pending. Add BC and LA as well. Monitor. DVT px -pt is on Coumadin therapy VS, I&O, 24H, Libby Vital Signs/I&O Vital Signs Date Time Temp Pulse Resp B/P (MAP) Pulse Ox O2 Delivery O2 Flow Rate FiO2 04/16/18 06:03 97.7 84 18 125/70 (88) 99 Room Air I&O- Last 24 Hours up to 6 AM 04/16/18 06:00 Intake Total 1322 ml Output Total 0 ml Balance 1322 ml Laboratory Data 24H LABS Laboratory Tests 2 04/15/18 16:57: Bedside Glucose (Misc Panel) 188H 04/15/18 20:12: Bedside Glucose (Misc Panel) 186H 04/16/18 06:24: Nucleated Red Blood Cells % (auto) 0.0, Prothrombin Time 21.1H, Prothromb Time International Ratio 1.79, Anion Gap 7L, Glomerular Filtration Rate 40.1L, Blood Urea Nitrogen 43H, Creatinine 1.78H, Sodium Level 133L, Potassium Level 3.9, Chloride Level 100, Carbon Dioxide Level 26, Calcium Level 8.3L, Aspartate Amino Transf (AST/SGOT) 18, Alanine Aminotransferase (ALT/SGPT) 18, Alkaline Phosphatase 114, Total Bilirubin 0.6, Total Protein 7.5, Albumin 2.3L, Albumin/Globulin Ratio 0.44L 04/16/18 11:50: Bedside Glucose (Misc Panel) 278H CBC/BMP Laboratory Tests 04/16/18 06:24 Red Blood Count 2.53 L, Mean Corpuscular Volume 98.4 H, Mean Corpuscular Hemoglobin 32.8, Mean Corpuscular Hemoglobin Concent 33.3, Red Cell Distribution Width 19.5 H, Calcium Level 8.3 L, Aspartate Amino Transf (AST/SGOT) 18, Alanine Aminotransferase (ALT/SGPT) 18, Alkaline Phosphatase 114, Total Bilirubin 0.6, Total Protein 7.5, Albumin 2.3 L Microbiology Microbiology 04/12/18 Urine Culture - Final, Complete Indy Lewis Apr 16, 2018 13:54 ABHILASH NUÑEZ MD Apr 19, 2018 14:01
[2018-04-16 14:00] VITALS: BP 102/55
[2018-04-16] MEDS ORDERED: traZODone 25MG PER 1/2 TABLET PO PRN (14:15)
[2018-04-16] MEDS ORDERED: ACETAMINOPHEN TAB 650MG DOSE (2X325MG) PO PRN (14:15)
--- NOTE | 2018-04-16 14:36 | IPNPDOC ---
PM&R Progress Note DATE OF SERVICE: Apr 16, 2018 Placement Specialist Progress Note Subjective: Patient reports he felt nauseous this morning, denies coughing, but has sinus congestion and runny nose. He had low grade temp and his nausea improved by meaghan ch time. REVIEW OF SYSTEMS: The following is a completed review of systems and has been reviewed. Review of systems otherwise unremarkable. PAIN: Patient self reports no pain EYES: Negative for recent vision changes or pain EARS, NOSE, & THROAT: +dysphagia CARDIOVASCULAR: denies chest pain or palpitations, +CABG PULMONARY: Negative. Denies shortness of breath, +trach stoma GASTROINTESTINAL: Negative for diarrhea/constipation, +PEG GENITOURINARY: Negative for dysuria MUSCULOSKELETAL: +LE weakness-improving NEUROLOGICAL: no seizure or tremor SKIN: multiple chest tube incisions, sternotomy scar, trach stoma PSYCHIATRIC: Unremarkable All other review of systems found to be negative. PHYSICAL EXAMINATION: VITAL SIGNS: Please see below. GENERAL: Pleasant and cooperative. No acute distress. HEENT: PERRL. Extraocular movements intact. Clear conjunctiva, +trach stoma CARDIOVASCULAR: Iregular rate and rhythm. No murmurs, rubs, or gallops, +sternal incision LUNGS: Clear to auscultation bilaterally. No wheezes. No rhonchi ABDOMEN: Soft, nontender, nondistended. Positive bowel sounds., +PEG skin c/d/i NEUROLOGICAL: Alert and oriented times three. Cranial nerves II through XII grossly intact. Sensation grossly intact EXTREMITIES: 5\\5 strength bilateral upper extremities. 4+\\5 strength right lower extremity. 4+/5 strength in left lower extremity. intact range of motion in left lower extremity SKIN: bilateral chest tube incisions healing well, +sacral stage 1 ulcer, trach site and PEG site c/d/i ASSESSMENT:73-year-old M with past medical history of DM and aortic stenosis who presents status post CABGx6, aortic valve replacement complicated by long hospital course s/p vent-dependence and PEG for dysphagia admitted for debility. PLAN: 1. Rehab: PT/OT, [employer]- no need for sternal precautions at this time as incision >6 weeks old however will still avoid propelling wheelchair as not functionally necessary -19 MBS and advanced diet to puree and thins, will trial honey for sore throat -Max HR 120 bpm based on Karvonen formula 2. 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 CArdio: s/p CABG x6 with AVR with post-op Afib- continue on metoprolol and warfarin, medicine consulted pmh HTN-continue BP meds 4. Resp: s/p vent-dependent respiratory failure, 02 prn, Incentive spirometry and monitor for signs of infection- breathing comfortably -CXR ordered today to look for aspiration/infiltrate, however does not show active process, patient without cough 5. GI ppx: protonix, patient complaining of nausea today which improved 6. DVT ppx: on Warfarin 7. : admission UA and Ucx negative, monitor pVRs 8. Endo: pmh DM, continue insulin coverage 9. Nutrition: s/p PEG, on puree diet, tube feeds discontinued 10. Skin: daily dressing changes for trach/PEG, chest tube incisions, +stage one sacral ulcer, balmex and mepilex 11. Pain: bilateral frontal headache with sinus pressure- continue Claritin, Flonase, and nasal saline 12. ID: aliya order fu swab for low grade temp and repeat UA 13. Dispo: 05-01-18, progressing towards goals Allergies Coded Allergies: [place] (Verified Allergy, Severe, ANAPHYLAXIS, 11/09/14) Penicillins (Verified Allergy, Severe, ANAPHYLAXIS, 08/04/14) Metformin (Verified Allergy, Unknown, 02/16/18) Statins (Verified Allergy, Unknown, 02/16/18) Duloxetine (Unverified Adverse Reaction, Unknown, N/V, 04/11/18) Vital Signs Vital Signs Date Time Temp Pulse Resp B/P (MAP) Pulse Ox O2 Delivery O2 Flow Rate FiO2 04/16/18 14:00 102/55 04/16/18 06:03 97.7 84 18 99 Room Air Laboratory Data CBC/BMP Laboratory Tests 04/16/18 06:24 Red Blood Count 2.53 L, Mean Corpuscular Volume 98.4 H, Mean Corpuscular Hemoglobin 32.8, Mean Corpuscular Hemoglobin Concent 33.3, Red Cell Distribution Width 19.5 H, Calcium Level 8.3 L, Aspartate Amino Transf (AST/SGOT) 18, Alanine Aminotransferase (ALT/SGPT) 18, Alkaline Phosphatase 114, Total Bilirubin 0.6, Total Protein 7.5, Albumin 2.3 L Labs 24H Laboratory Tests 2 04/15/18 16:57: Bedside Glucose (Misc Panel) 188H 04/15/18 20:12: Bedside Glucose (Misc Panel) 186H 04/16/18 06:24: Nucleated Red Blood Cells % (auto) 0.0, Prothrombin Time 21.1H, Prothromb Time International Ratio 1.79, Anion Gap 7L, Glomerular Filtration Rate 40.1L, Blood Urea Nitrogen 43H, Creatinine 1.78H, Sodium Level 133L, Potassium Level 3.9, Chloride Level 100, Carbon Dioxide Level 26, Calcium Level 8.3L, Aspartate Amino Transf (AST/SGOT) 18, Alanine Aminotransferase (ALT/SGPT) 18, Alkaline Phosphatase 114, Total Bilirubin 0.6, Total Protein 7.5, Albumin 2.3L, Albumin/Globulin Ratio 0.44L 04/16/18 11:50: Bedside Glucose (Misc Panel) 278H Microbiology Microbiology 04/12/18 Urine Culture - Final, Complete Current Medications Current Medications Current Medications Acetaminophen (Tylenol Tab) 650 mg Q4HP PRN PEG MILD PAIN (PS 1-4) Last administered on 04/16/18at 08:44; Start 04/11/18 at 15:30; Stop 04/16/18 at 14:11; Status DC Acetaminophen (Tylenol Tab) 650 mg Q4HP PRN PO MILD PAIN (PS 1-4); Start 04/16/18 at 14:15 Amlodipine Besylate (Norvasc) 10 mg DAILY PEG Last administered on 04/15/18at 08:16; Start 04/12/18 at 09:00; Stop 04/16/18 at 14:11; Status DC Amlodipine Besylate (Norvasc) 10 mg DAILY PO ; Start 04/17/18 at 09:00 Artificial Tears ([place] Tears) 2 drop TIDP PRN OU DRY EYES; Start 04/11/18 at 15:30 Ascorbic Acid (Vitamin C) 500 mg BID PEG Last administered on 04/15/18at 21:48; Start 04/11/18 at 21:00; Stop 04/16/18 at 14:11; Status DC Ascorbic Acid (Vitamin C) 500 mg BID PO ; Start 04/16/18 at 21:00 Aspirin (Ecotrin) 81 mg DAILY PEG Last administered on 04/16/18at 11:15; Start 04/12/18 at 09:00 Chlorhexidine Gluconate (Peridex Oral Rinse) 15 ml TID MT Last administered on 04/15/18at 21:45; Start 04/11/18 at 16:00 Citalopram Hydrobromide (CeleXA) 10 mg QHS PEG Last administered on 04/14/18at 21:35; Start 04/11/18 at 21:00; Stop 04/15/18 at 15:58; Status DC Clonidine HCl (Catapres) 0.1 mg BID GT Last administered on 04/15/18at 08:16; Start 04/11/18 at 21:00; Stop 04/16/18 at 14:11; Status DC Clonidine HCl (Catapres) 0.1 mg BID PO ; Start 04/16/18 at 21:00 Dextrose (Dextrose 50%) 25 ml ASDIRECTED PRN IV SEE LABEL COMMENTS; Start 04/11/18 at 15:30; Stop 04/15/18 at 20:56; Status DC Dextrose (Dextrose 50%) 25 ml ASDIRECTED PRN IV SEE LABEL COMMENTS; Start 04/15/18 at 21:00 Fenofibrate (Tricor) 145 mg DAILY PO ; Start 04/16/18 at 09:00 Ferrous Gluconate (Fergon) 324 mg BID PEG Last administered on 04/12/18at 21:00; Start 04/11/18 at 21:00; Stop 04/14/18 at 16:16; Status DC Fluoxetine HCl (PROzac) 20 mg DAILY PO Last administered on 04/15/18at 16:34; Start 04/15/18 at 16:00 Fluticasone Propionate (Flonase 0.05% Nasal [place]) 1 spray BID NARES Last administered on 04/16/18at 13:03; Start 04/14/18 at 16:15 Folic Acid (Folic Acid) 1 mg DAILY PEG Last administered on 04/15/18at 08:16; Start 04/12/18 at 09:00; Stop 04/16/18 at 14:11; Status DC Folic Acid (Folic Acid) 1 mg DAILY PO ; Start 04/17/18 at 09:00 Furosemide (Lasix) 20 mg DAILY PEG Last administered on 04/15/18at 08:16; Start 04/12/18 at 09:00; Stop 04/16/18 at 14:11; Status DC Furosemide (Lasix) 20 mg DAILY PO ; Start 04/17/18 at 09:00 Glucagon (Glucagon) 1 mg ASDIRECTED PRN SC SEE LABEL COMMENTS; Start 04/11/18 at 15:30; Stop 04/15/18 at 20:56; Status DC Glucagon (Glucagon) 1 mg ASDIRECTED PRN SC SEE LABEL COMMENTS; Start 04/15/18 at 21:00 Glucose (Glucose) 16 GM ASDIRECTED PRN PO SEE LABEL COMMENTS; Start 04/11/18 at 15:30; Stop 04/15/18 at 20:56; Status DC Glucose (Glucose) 16 GM ASDIRECTED PRN PO SEE LABEL COMMENTS; Start 04/15/18 at 21:00 Home Med (Med Rec Complete!) ASDIRECTED XX ; Start 04/11/18 at 16:00; Stop 04/11/18 at 16:06; Status DC Hydralazine HCl (Apresoline) 25 mg Q8H PO Last administered on 04/16/18at 05:57; Start 04/11/18 at 22:00 Insulin Detemir (Levemir Insulin) 5 units QHS SC Last administered on 04/15/18at 21:46; Start 04/14/18 at 21:00 Insulin Detemir (Levemir Insulin) 12 units QHS SC Last administered on 04/13/18at 21:11; Start 04/11/18 at 21:00; Stop 04/14/18 at 10:28; Status DC Insulin Human Lispro (HumaLOG INSULIN) 2 units AC SC ; Start 04/16/18 at 17:30; Status UNV Insulin Human Lispro (HumaLOG INSULIN) SEE PROTOCOL TABLE AC SC ; Start 04/11/18 at 17:30; Stop 04/11/18 at 17:30; Status DC Insulin Human Lispro (HumaLOG INSULIN) SEE PROTOCOL TABLE Q6H SC Last administered on 04/15/18at 17:41; Start 04/11/18 at 18:00; Stop 04/15/18 at 20:46; Status DC Insulin Human Lispro (HumaLOG INSULIN) See Protocol Table AC SC Last administered on 04/16/18at 12:00; Start 04/16/18 at 07:30 Loratadine (Claritin) 10 mg DAILY PO Last administered on 04/15/18at 08:16; Start 04/14/18 at 16:15 Metoprolol Tartrate (Lopressor) 50 mg BID PO Last administered on 04/15/18at 08:16; Start 04/11/18 at 21:00 Nitroglycerin (Nitrostat (1/ 150)) 0.4 mg Q5MP PRN SL CHEST PAIN; Start 04/11/18 at 15:30 Ondansetron HCl (ZOFRAN INJection) 4 mg Q6HP PRN IM NAUSEA; Start 04/11/18 at 15:30 Ramipril (Altace) 1.25 mg QPM PO Last administered on 04/13/18at 21:09; Start 04/11/18 at 21:00 Ranitidine HCl (Zantac) 150 mg BID GT Last administered on 04/15/18 08:17; Start 04/11/18 at 21:00; Stop 04/15/18 at 20:58; Status DC Ranitidine HCl (Zantac) 150 mg BID PO Last administered on 04/16/18at 08:37; Start 04/15/18 at 21:00 Saliva Substitute (Mouthkote) 2 sprays Q4HP PRN MT SYMPTOM RELIEF; Start 04/12/18 at 15:15 Sodium Chloride ([place] Nasal [place]) 2 spray BID NA Last administered on 04/13/18at 10:03; Start 04/11/18 at 21:00; Stop 04/14/18 at 16:20; Status DC Sodium Chloride ([place] Nasal [place]) 2 spray TID NA Last administered on 04/16/18at 13:03; Start 04/14/18 at 21:00 Trazodone HCl (Desyrel) 25 mg Q6HP PRN PEG AGITATION; Start 04/11/18 at 15:30; Stop 04/16/18 at 14:11; Status DC Trazodone HCl (Desyrel) 25 mg Q6HP PRN PO AGITATION; Start 04/16/18 at 14:15 Trazodone HCl (Desyrel) 25 mg QHS PEG Last administered on 04/15/18at 21:45; Start 04/11/18 at 21:00; Stop 04/16/18 at 14:11; Status DC Trazodone HCl (Desyrel) 25 mg QHS PO ; Start 04/16/18 at 21:00 Zinc Oxide (Boudreauxs Butt Paste) sacrum (inner crease) BID TOP Last administered on 04/16/18at 13:04; Start 04/11/18 at 21:00 CACHORRO MEDEL MD Apr 16, 2018 14:36
[2018-04-16] MEDS ORDERED: WARFARIN SOD 5 MG TAB PO ONE (17:00)
[2018-04-16] MEDS: SUCRALFATE SUSP 1GM/10ML UD PO SCH (18:35)
[2018-04-16 20:00] VITALS: BP 146/74
[2018-04-16] MEDS ORDERED: traZODone 25MG PER 1/2 TABLET PO SCH (21:00)
[2018-04-16] MEDS ORDERED: cloNIDine 0.1 MG TAB PO SCH (21:00)
[2018-04-16] MEDS: ERYTHROMYCIN OPHTH OINT OD SCH (21:15)
[2018-04-16] MEDS: ASCORBIC ACID 500 MG TAB PO SCH (21:15)
[2018-04-16] MEDS: LEVEMIR (INSULIN DETEMIR) 1 UNITS/0.01ML SC SCH (21:15)
[2018-04-17] VITALS (7 sets, daily range): BP systolic 120–160; BP diastolic 72–80
[2018-04-17] MEDS: **hydrALAZINE HCL** 25 MG TAB PO SCH ×3 (05:43→21:37)
[2018-04-17 06:44] LABS: HEMATOCRIT 25.8 % (42.0-52.0); HEMOGLOBIN 8.7 g/dl (13.5-17.5); MEAN CORPUSCULAR HEMOGLOBIN 33.3 pg (27.0-33.0); MEAN CORPUSCULAR HGB CONC 33.7 g/dl (32.0-36.5); MEAN CORPUSCULAR VOLUME 98.9 fl (80.0-96.0); PLATELET COUNT, AUTOMATED 101 10^3/uL (150-450); RED BLOOD COUNT 2.61 10^6/uL (4.30-6.10); WHITE BLOOD COUNT 8.6 10^3/uL (4.0-10.0)
[2018-04-17 06:58] LABS: INR 2.64; PROTHROMBIN TIME 28.8 SECONDS (12.1-14.4)
[2018-04-17 07:06] LABS: ALBUMIN 2.5 GM/DL (3.2-5.2); BILIRUBIN,TOTAL 0.6 MG/DL (0.2-1.0); CALCIUM LEVEL 8.6 MG/DL (8.8-10.2); CREATININE FOR GFR 1.73 MG/DL (0.70-1.30); GLOMERULAR FILTRATION RATE 41.4 (>42); POTASSIUM SERUM 4.6 MEQ/L (3.5-5.1); TOTAL PROTEIN 8.2 GM/DL (6.4-8.2)
[2018-04-17 07:09] LABS: PERCENT SATURATION 21.8 % (19.7-50.0)
[2018-04-17] MEDS: SUCRALFATE SUSP 1GM/10ML UD PO SCH ×3 (08:53→17:06)
[2018-04-17] MEDS: CHLORHEXIDINE GLUCONATE 0.12 % 15ML UDC (PERIDEX ORAL RINSE) MT SCH ×3 (08:54→21:37)
[2018-04-17] MEDS: HumaLOG INSULIN (NovoLOG) PER UNIT SC SCH ×6 (08:54→17:08)
[2018-04-17] MEDS: FENOFIBRATE 145 MG TAB (TRICOR) PO SCH (08:55)
[2018-04-17] MEDS: ASPIRIN 81 MG ENTERIC TAB PEG SCH (08:55)
[2018-04-17] MEDS: ASCORBIC ACID 500 MG TAB PO SCH ×2 (08:55→21:37)
[2018-04-17] MEDS: FLUoxetine 20 MG CAP PO SCH (08:55)
[2018-04-17] MEDS: LORATADINE 10 MG TAB PO SCH (08:55)
[2018-04-17] MEDS: SODIUM CHLORIDE NASAL 0.65% SPRAY BTL (OCEAN) SCH ×3 (08:56→21:39)
[2018-04-17] MEDS: FLUTICASONE PROP 0.05% NASAL SPRAY 16 GM (FLONASE) NARES SCH ×2 (08:56→21:39)
[2018-04-17] MEDS: BOUDREAUX'S BUTT PASTE 4OZ TOP SCH ×2 (08:56→21:00)
[2018-04-17] MEDS: METOPROLOL TART 50 MG TAB PO SCH ×3 (08:56→21:37)
[2018-04-17] MEDS: ERYTHROMYCIN OPHTH OINT OD SCH ×3 (08:57→21:00)
[2018-04-17] MEDS ORDERED: FUROSEMIDE 20 MG TAB PO SCH (09:00)
[2018-04-17] MEDS ORDERED: FOLIC ACID 1 MG TAB PO SCH (09:00)
[2018-04-17] MEDS ORDERED: amLODIPine 10 MG TAB PO SCH (09:00)
--- NOTE | 2018-04-17 13:20 | IPNPDOC ---
Date Seen The patient was seen on 04/17/18. Progress Note HPI: This patient initially was hospitalized at our facility in Feb 2018 for syncope work up and found incidentally to have a pleural effusion of which he ultimately ended up receiving a chest tube for. He unfortunately sustained a cardiac event in the hospital at that time, he went into coarse ventricular fibrillation requiring defibrillation and ICU stay with intubation, the ultimate decision was made to life flight the patient out of the hospital to [facility] for cardiac procedure and aortic valve replacement. Upon review of patients lengthy hospital stay in [facility] it seems like he had undergone 6 vessel bypass and AV replacement but this was complicated post-op by anuria, and difficulty with weaning from vent. IABP was apparently placed POD #3. He was also given TPN. He ultimately received a tracheostomy POD #7 according to records. He was maintained on vasopressors as well in ICU and treated with ciprofloxacin, vancomycin and aztreonam for supposed sepsis, he did have a sputum culture that was positive for GNR and was found to have a possible left sided pneumonia. He had poor output post-op anuric and received CRRT while hospitalized at [facility] ICU. Hematology was also consulted for thrombocytopenia and placed on IV argatroban due to worsening thrombocytopenia until a repeat (first KITTY negative) KITTY confirmed negative HIT. He did experience bradycardia and junctional rhythm while in ICU, AV paced. According to notes, he was eventually weaned off of vasopressors and renal function did improve. PEG tube had been placed on 03.14.18. B/L chest tubes were removed on 04.10.18. He also experienced post-op a. fib and was started on and remains on Coumadin for this. The pt states he feels much better today. States he worries about getting labs drawn in AM, disturbs his sleep and feels nauseated when he gets it drawn. Denies any fevers,Headache, Chest Pain, Shortness of breath, cough, palpitations, abdominal pain, N/V/D or changes in bowel or bladder habits. PAST MEDICAL HISTORY: CHF Squamous cell cancer Depression DM PAST SURGICAL HISTORY: cardiac cath back surgery skin biopsies PE: GEN: 73yoM, appears stated age. Alert and oriented x 3. Pleasant, interactive. NAD, comfortable, no complaints on exam. HEENT: EOMI, moist mucus membranes RESPIRATORY: cta b/l, no wheezing, rales or rhonchi CARDIOVASCULAR: normal s1, s2, no murmurs, rubs or gallops ABDOMEN: no pain on palpitation, peg tube in place without surrounding erythema or drainage. no distension, no rebound, no guarding EXTREMITIES: no swelling, cyanosis or mottling NEUROLOGICAL: no focal deficits PSYCHIATRIC: affect appropriate SKIN: no rashes. A&P: This patient initially was hospitalized at our facility in Feb 2018 for syncope work up and found incidentally to have a pleural effusion of which he ultimately ended up receiving a chest tube for. He unfortunately sustained a cardiac event in the hospital at that time, he went into coarse ventricular fibrillation requiring defibrillation and ICU stay with intubation, the ultimate decision was made to life flight the patient out of the hospital to [facility] for cardiac procedure and aortic valve replacement. Upon review of patients lengthy hospital stay in [facility] it seems like he had undergone 6 vessel bypass and AV replacement but this was complicated post-op by anuria, and difficulty with weaning from vent. IABP was apparently placed POD #3. He was also given TPN. He ultimately received a tracheostomy POD #7 according to records. He was maintained on vasopressors as well in ICU and treated with ciprofloxacin, vancomycin and aztreonam for supposed sepsis, he did have a sputum culture that was positive for GNR and was found to have a possible left sided pneumonia. He had poor output post-op anuric and received CRRT while hospitalized at [facility] ICU. Hematology was also consulted for thrombocytopenia and placed on IV argatroban due to worsening thrombocytopenia until a repeat (first KITTY negative) KITTY confirmed negative HIT. He did experience bradycardia and junctional rhythm while in ICU, AV paced. According to notes, he was eventually weaned off of vasopressors and renal function did improve. PEG tube had been placed on 03.14.18. B/L chest tubes were removed on 04.10.18. He also experienced post-op a. fib and was started on and remains on Coumadin for this. 1. CAD s/p cardiac cath and CABG Continue Coumadin, 5 mg ordered today. Continue daily INR 2.64, recheck in AM. continue with aspirin daily ARU as per Dr Lezama. Pain control as per Dr Lezama. Bowel care as per Dr Lezama. ST/Peg tube as per Dr Lezama. 2. Anemia/Thrombocytopenia. Hgb stable 8.7. PLt stable 101. Fe studies, B12, folate pending. FOB pending. Peripheral smear 04/16/18 Chronic anemia, borderline macrocytic, consistent with anemia of chronic disease, Chronic thrombocytopenia, no platelet clumps are noted, correlation with clinical findings is recommended to rule out ITP. WBCs are unremarkable. Final: Electronically Signed by: Melissa Coto M.D. 04/17/18 [id number] Hematology consulted 04/16/18 re thrombocytopenia. Zantac d/cd. 3. HTN Currently hydralazine, Lasix, Lopressor with hold parameters. Norvasc, Clonidine, Ramipril d/cd. Monitor trend. 3. DM2 sliding scale insulin levemir daily BS 125-204. HgA1C 6.0 4. History of AKF s/p CABG/AV replacement SCr 1.73. Monitor. 5. History of Afib post-operatively Coumadin. 5 mg ordered today. INR this AM 2.64. await INR in AM, further dosing pending INR. CVA likely 2' to new afib while at OSH, will consider neurology cons 6. Depression Celexa 7. Chills. Pt states he woke up chilled 04/16/18, symptoms are currently resolved and he states he feels much better today. The pt has been afebrile. CXR 04/16/18 NAD. UA unremarkable. Respiratory panel neg. BC pending LA 1.5. Monitor. BP meds were adjusted and pt reports he is feeling better today. DVT px -pt is on Coumadin therapy VS, I&O, 24H, Fishbone Vital Signs/I&O Vital Signs Date Time Temp Pulse Resp B/P (MAP) Pulse Ox O2 Delivery O2 Flow Rate FiO2 04/17/18 12:48 154/72 04/17/18 08:56 80 04/17/18 05:50 98.7 16 97 04/16/18 20:00 Room Air I&O- Last 24 Hours up to 6 AM0 04/17/18 05:59 Intake Total 1580 ml Output Total 1400 ml Balance 180 ml Laboratory Data 24H LABS Laboratory Tests 2 04/16/18 15:53: Lactic Acid Level 1.5 04/16/18 16:53: Urine Color YELLOW, Urine Appearance CLEAR, Urine pH 5.0, Urine Specific Success 1.005, Urine Protein 1+H, Urine Glucose (UA) NEGATIVE, Urine Ketones NEGATIVE, Urine Blood NEGATIVE, Urine Nitrite NEGATIVE, Urine Bilirubin NEGATIVE, Urine Urobilinogen 0.2, Urine Leukocyte Esterase NEGATIVE, Urine WBC (Auto) 0, Urine RBC (Auto) 1, Urine Hyaline Casts (Auto) 0, Urine Bacteria (Auto) NEGATIVE, Urine Squamous Epithelial Cells 0, Urine Sperm (Auto) 04/16/18 17:13: Bedside Glucose (Misc Panel) 125H 04/16/18 19:44: Bedside Glucose (Misc Panel) 177H 04/17/18 06:21: Nucleated Red Blood Cells % (auto) 0.2H, Prothrombin Time 28.8H, Prothromb Time International Ratio 2.64, Anion Gap 8, Glomerular Filtration Rate 41.4L, Blood Urea Nitrogen 40H, Creatinine 1.73H, Sodium Level 134L, Potassium Level 4.6, Chloride Level 102, Carbon Dioxide Level 24, Calcium Level 8.6L, Aspartate Amino Transf (AST/SGOT) 17, Alanine Aminotransferase (ALT/SGPT) 19, Alkaline Phosphatase 121H, Total Bilirubin 0.6, Total Protein 8.2, Albumin 2.5L, Iron Level 42L, Total Iron Binding Capacity 193L, Transferrin % Saturation 21.8, Ferritin 683H, Albumin/Globulin Ratio 0.44L 04/17/18 06:41: Bedside Glucose (Misc Panel) 204H 04/17/18 12:06: Bedside Glucose (Misc Panel) 144H CBC/BMP Laboratory Tests 04/17/18 06:21 Red Blood Count 2.61 L, Mean Corpuscular Volume 98.9 H, Mean Corpuscular Hemoglobin 33.3 H, Mean Corpuscular Hemoglobin Concent 33.7, Red Cell Distribution Width 19.6 H, Calcium Level 8.6 L, Aspartate Amino Transf (AST/SGOT ) 17, Alanine Aminotransferase (ALT/SGPT) 19, Alkaline Phosphatase 121 H, Total Bilirubin 0.6, Total Protein 8.2, Albumin 2.5 L Microbiology Microbiology 04/16/18 Blood Culture, Received Pending 04/16/18 Respiratory Virus Panel (PCR) (MANDIE) - Final, Complete 04/12/18 Urine Culture - Final, Complete Indy Lewis Apr 17, 2018 13:19 ABHILASH NUÑEZ MD Apr 19, 2018 14:07
[2018-04-17] MEDS ORDERED: WARFARIN SOD 5 MG TAB PO ONE (17:00)
[2018-04-17] MEDS ORDERED: ONDANSETRON 4 MG TAB (S0181) PO PRN (19:45)
[2018-04-17] MEDS: LEVEMIR (INSULIN DETEMIR) 1 UNITS/0.01ML SC SCH (21:38)
[2018-04-18] VITALS (10 sets, daily range): BP systolic 127–192; BP diastolic 70–93; PULSE 75–82
[2018-04-18] MEDS: NITROGLYCERIN 0.4 MG SUBL TABLET SL PRN ×2 (04:42→05:02)
[2018-04-18] MEDS ORDERED: MORPHINE 4 MG/ML 1ML VIAL/SYRINGE (J2270) IM ONE (05:00)
[2018-04-18] MEDS ORDERED: MORPHINE 4 MG/ML 1ML VIAL/SYRINGE (J2270) As Ordered ONE (05:11)
[2018-04-18] MEDS ORDERED: ASPIRIN 325 MG TAB As Ordered ONE (05:12)
[2018-04-18] MEDS ORDERED: METOCLOPRAMIDE 10 MG TAB PO ONE (05:15)
[2018-04-18] MEDS ORDERED: ASPIRIN 325 MG TAB PO ONE (05:15)
[2018-04-18] MEDS: **hydrALAZINE HCL** 25 MG TAB PO SCH (05:22)
[2018-04-18 05:40] LABS: HEMATOCRIT 26.9 % (42.0-52.0); HEMOGLOBIN 9.2 g/dl (13.5-17.5); MEAN CORPUSCULAR HEMOGLOBIN 33.1 pg (27.0-33.0); MEAN CORPUSCULAR HGB CONC 34.2 g/dl (32.0-36.5); MEAN CORPUSCULAR VOLUME 96.8 fl (80.0-96.0); PLATELET COUNT, AUTOMATED 120 10^3/uL (150-450); RED BLOOD COUNT 2.78 10^6/uL (4.30-6.10); WHITE BLOOD COUNT 7.4 10^3/uL (4.0-10.0)
[2018-04-18 05:55] LABS: INR 3.33; PROTHROMBIN TIME 34.6 SECONDS (12.1-14.4)
[2018-04-18 06:04] LABS: PARTIAL THROMBOPLASTIN TIME 51.4 SECONDS (25.4-37.6)
[2018-04-18 06:10] LABS: ALBUMIN 2.6 GM/DL (3.2-5.2); ALT/SGPT 20 U/L (12-78); BILIRUBIN,TOTAL 0.8 MG/DL (0.2-1.0); BLOOD UREA NITROGEN 36 MG/DL (7-18); CALCIUM LEVEL 8.6 MG/DL (8.8-10.2); CARBON DIOXIDE LEVEL 23 MEQ/L (21-32); CHLORIDE LEVEL 100 MEQ/L (98-107); CPK CREATINE PHOSPHOKINASE 65 U/L (39-308); CREATININE FOR GFR 1.59 MG/DL (0.70-1.30); GLOMERULAR FILTRATION RATE 45.7 (>42); GLUCOSE, FASTING 205 MG/DL (70-100); MAGNESIUM LEVEL 1.9 MG/DL (1.8-2.4); MB/CK RELATIVE INDEX 5.23 (< OR =4); POTASSIUM SERUM 3.5 MEQ/L (3.5-5.1); SODIUM LEVEL 134 MEQ/L (136-145); TOTAL PROTEIN 8.6 GM/DL (6.4-8.2); TROPONIN I < 0.02 NG/ML (< 0.10)
[2018-04-18] MEDS ORDERED: PERI0.126 MT (07:32)
[2018-04-18] MEDS ORDERED: SUCR10SS GT (07:32)
[2018-04-18] MEDS ORDERED: LORA-243 GT (07:32)
[2018-04-18] MEDS ORDERED: HYDR-3910 GT (07:32)
[2018-04-18] MEDS ORDERED: FENO145T13 GT (07:32)
[2018-04-18] MEDS ORDERED: FLUO40CA GT (07:32)
[2018-04-18] MEDS ORDERED: FLUTISP (07:32)
[2018-04-18] MEDS ORDERED: CITA-230 PO (10:12)
--- NOTE | 2018-04-18 15:53 | IPNPDOC ---
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 REVIEW OF SYSTEMS: The following is a completed review of systems and has been reviewed. Review of systems otherwise unremarkable. PAIN: Patient self reports no pain EYES: Negative for recent vision changes or pain EARS, NOSE, & THROAT: +dysphagia-improving CARDIOVASCULAR: denies chest pain or palpitations, +CABG PULMONARY: Negative. Denies shortness of breath, +trach stoma GASTROINTESTINAL: Negative for diarrhea/constipation, +PEG GENITOURINARY: Negative for dysuria MUSCULOSKELETAL: +LE weakness-improving NEUROLOGICAL: no seizure or tremor SKIN: multiple chest tube incisions, sternotomy scar, trach stoma PSYCHIATRIC: Unremarkable All other review of systems found to be negative. PHYSICAL EXAMINATION: VITAL SIGNS: Please see below. GENERAL: Pleasant and cooperative. No acute distress. HEENT: PERRL. Extraocular movements intact. Clear conjunctiva, +trach stoma CARDIOVASCULAR: Iregular rate and rhythm. No murmurs, rubs, or gallops, +sternal incision LUNGS: Clear to auscultation bilaterally. No wheezes. No rhonchi ABDOMEN: Soft, nontender, nondistended. Positive bowel sounds., +PEG skin c/d/i NEUROLOGICAL: Alert and oriented times three. Cranial nerves II through XII grossly intact. Sensation grossly intact EXTREMITIES: 5\\5 strength bilateral upper extremities. 4+\\5 strength right lower extremity. 4+/5 strength in left lower extremity. intact range of motion in left lower extremity SKIN: bilateral chest tube incisions healing well, +sacral stage 1 ulcer, trach site and PEG site c/d/i ASSESSMENT:73-year-old M with past medical history of DM and aortic stenosis who presents status post CABGx6, aortic valve replacement complicated by long hospital course s/p vent-dependence and PEG for dysphagia admitted for debility. PLAN: 1. Rehab: PT/OT, [employer]- no need for sternal precautions at this time as incision >6 weeks old however will still avoid propelling wheelchair as not functionally necessary -19 MBS and advanced diet to puree and thins, will trial honey for sore throat -Max HR 120 bpm based on Karvonen formula 2. 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 CArdio: s/p CABG x6 with AVR with post-op Afib- continue on metoprolol and warfarin, medicine consulted pmh HTN-continue BP meds 4. Resp: s/p vent-dependent respiratory failure, 02 prn, Incentive spirometry and monitor for signs of infection- breathing comfortably -CXR ordered today to look for aspiration/infiltrate, however does not show active process, patient without cough 5. GI ppx: protonix, no nausea today 6. DVT ppx: on Warfarin 7. : admission UA and Ucx negative, monitor pVRs 8. Endo: pmh DM, continue insulin coverage 9. Nutrition: s/p PEG, on puree diet, tube feeds discontinued, eating well 10. Skin: daily dressing changes for trach/PEG, chest tube incisions, +stage one sacral ulcer, balmex and mepilex 11. Pain: bilateral frontal headache with sinus pressure- continue Claritin, Flonase, and nasal saline, headache also related to right eye blurry vision, instructed patient to wear eye patch while watching television and consulted ophthalmology, continue erythromycin ointment to right eye 12. ID: low grade temps, lactic acid within normal limits, blood and urine cultures no growth, negative respiratory panel- FOBT negative, clinically improved today, less nasal congestion and less nausea in the afternoon, per patient he has a needle phobia and get nauseous every morning and dizzy during the blood draws and would like to stop getting them- 13. Heme: persistent thrombocytopenia, stopped Zantac and stable around 100, no obvious infectious source, Dr. De Paz consulted 13. Dispo: 05-01-18, progressing towards goals Allergies Coded Allergies: Sequim (Verified Allergy, Severe, ANAPHYLAXIS, 11/09/14) Penicillins (Verified Allergy, Severe, ANAPHYLAXIS, 08/04/14) Metformin (Verified Allergy, Unknown, 02/16/18) Statins (Verified Allergy, Unknown, 02/16/18) Duloxetine (Unverified Adverse Reaction, Mild, N/V, 04/16/18) Vital Signs Vital Signs Date Time Temp Pulse Resp B/P (MAP) Pulse Ox O2 Delivery O2 Flow Rate FiO2 04/18/18 05:40 80 20 188/88 (121) 100 Nasal Cannula 2.0 04/17/18 20:00 97.8 Laboratory Data CBC/BMP Laboratory Tests 04/18/18 05:20 Red Blood Count 2.78 L, Mean Corpuscular Volume 96.8 H, Mean Corpuscular Hemoglobin 33.1 H, Mean Corpuscular Hemoglobin Concent 34.2, Red Cell Distribution Width 19.4 H, Calcium Level 8.6 L, Aspartate Amino Transf ( T/SGOT) 22, Alanine Aminotransferase (ALT/SGPT) 20, Total Creatine Kinase 65, Alkaline Phosphatase 128 H, Total Bilirubin 0.8, Total Protein 8.6 H, Albumin 2.6 L Labs 24H Laboratory Tests 2 04/17/18 16:39: Bedside Glucose (Misc Panel) 159H 04/17/18 18:20: Bedside Glucose (Misc Panel) 162H 04/17/18 19:38: Bedside Glucose (Misc Panel) 175H 04/18/18 05:19: Bedside Glucose (Misc Panel) 204H 04/18/18 05:20: Nucleated Red Blood Cells % (auto) 0.0, Prothrombin Time 34.6H, Prothromb Time International Ratio 3.33, Activated Partial Thromboplast Time 51.4H, Anion Gap 11, Glomerular Filtration Rate 45.7, Blood Urea Nitrogen 36H, Creatinine 1.59H, Sodium Level 134L, Potassium Level 3.5#, Chloride Level 100, Carbon Dioxide Level 23, Calcium Level 8.6L, Aspartate Amino Transf (AST/SGOT) 22, Alanine Aminotransferase (ALT/SGPT) 20, Total Creatine Kinase 65, Alkaline Phosphatase 128H, Total Bilirubin 0.8, Total Protein 8.6H, Albumin 2.6L, Magnesium Level 1.9, Creatine Kinase MB 3.0, Creatine Kinase MB Relative Index 5.23H, Troponin I < 0.02, Albumin/Globulin Ratio 0.43L Microbiology Microbiology 04/16/18 Blood Culture - Preliminary, Resulted No growth after 24 hours . All specim... 04/17/18 Stool Occult Blood (MANDIE) - Final, Complete 04/16/18 Respiratory Virus Panel (PCR) (MANDIE) - Final, Complete 04/12/18 Urine Culture - Final, Complete Current Medications Current Medications Current Medications Acetaminophen (Tylenol Tab) 650 mg Q4HP PRN PEG MILD PAIN (PS 1-4) Last administered on 04/16/18at 08:44; Start 04/11/18 at 15:30; Stop 04/16/18 at 14:11; Status DC Acetaminophen (Tylenol Tab) 650 mg Q4HP PRN PO MILD PAIN (PS 1-4) Last administered on 04/17/18at 08:55; Start 04/16/18 at 14:15; Stop 04/18/18 at 08:21; Status DC Amlodipine Besylate (Norvasc) 10 mg DAILY PEG Last administered on 04/15/18at 08:16; Start 04/12/18 at 09:00; Stop 04/16/18 at 14:11; Status DC Amlodipine Besylate (Norvasc) 10 mg DAILY PO ; Start 04/17/18 at 09:00; Stop 04/17/18 at 09:00; Status DC Artificial Tears (Akwa Tears) 2 drop TIDP PRN OU DRY EYES; Start 04/11/18 at 15: 30; Stop 04/18/18 at 08:21; Status DC Ascorbic Acid (Vitamin C) 500 mg BID PEG Last administered on 04/15/18at 21:48; Start 04/11/18 at 21:00; Stop 04/16/18 at 14:11; Status DC Ascorbic Acid (Vitamin C) 500 mg BID PO Last administered on 04/17/18at 21:37; Start 04/16/18 at 21:00; Stop 04/18/18 at 08:21; Status DC Aspirin (Ecotrin) 81 mg DAILY PEG Last administered on 04/17/18at 08:55; Start 04/12/18 at 09:00; Stop 04/18/18 at 08:21; Status DC Chlorhexidine Gluconate (Peridex Oral Rinse) 15 ml TID MT Last administered on 04/17/18at 21:37; Start 04/11/18 at 16:00; Stop 04/18/18 at 08:21; Status DC Citalopram Hydrobromide (CeleXA) 10 mg QHS PEG Last administered on 04/14/18at 21:35; Start 04/11/18 at 21:00; Stop 04/15/18 at 15:58; Status DC Clonidine HCl (Catapres) 0.1 mg BID GT Last administered on 04/15/18at 08:16; Start 04/11/18 at 21:00; Stop 04/16/18 at 14:11; Status DC Clonidine HCl (Catapres) 0.1 mg BID PO ; Start 04/16/18 at 21:00; Stop 04/16/18 at 21:00; Status DC Dextrose (Dextrose 50%) 25 ml ASDIRECTED PRN IV SEE LABEL COMMENTS; Start 04/11/18 at 15:30; Stop 04/15/18 at 20:56; Status DC Dextrose (Dextrose 50%) 25 ml ASDIRECTED PRN IV SEE LABEL COMMENTS; Start 04/15/18 at 21:00; Stop 04/18/18 at 08:21; Status DC Erythromycin (Ilotycin) 1 CM RIBBON TID OD Last administered on 04/16/18at 21:15; Start 04/16/18 at 20:00; Stop 04/18/18 at 08:21; Status DC Fenofibrate (Tricor) 145 mg DAILY PO Last administered on 04/17/18at 08:55; Start 04/16/18 at 09:00; Stop 04/18/18 at 08:21; Status DC Ferrous Gluconate (Fergon) 324 mg BID PEG Last administered on 04/12/18at 21:00; Start 04/11/18 at 21:00; Stop 04/14/18 at 16:16; Status DC Fluoxetine HCl (PROzac) 20 mg DAILY PO Last administered on 04/17/18at 08:55; Start 04/15/18 at 16:00; Stop 04/18/18 at 08:21; Status DC Fluticasone Propionate (Flonase 0.05% Nasal [place]) 1 spray BID NARES Last administered on 04/17/18at 21:39; Start 04/14/18 at 16:15; Stop 04/18/18 at 08:21; Status DC Folic Acid (Folic Acid) 1 mg DAILY PEG Last administered on 04/15/18at 08:16; Start 04/12/18 at 09:00; Stop 04/16/18 at 14:11; Status DC Folic Acid (Folic Acid) 1 mg DAILY PO Last administered on 04/17/18at 08:56; Start 04/17/18 at 09:00; Stop 04/18/18 at 08:21; Status DC Furosemide (Lasix) 20 mg DAILY PEG Last administered on 04/15/18at 08:16; Start 04/12/18 at 09:00; Stop 04/16/18 at 14:11; Status DC Furosemide (Lasix) 20 mg DAILY PO Last administered on 04/17/18at 08:55; Start 04/17/18 at 09:00; Stop 04/18/18 at 08:21; Status DC Glucagon (Glucagon) 1 mg ASDIRECTED PRN SC SEE LABEL COMMENTS; Start 04/11/18 at 15:30; Stop 04/15/18 at 20:56; Status DC Glucagon (Glucagon) 1 mg ASDIRECTED PRN SC SEE LABEL COMMENTS; Start 04/15/18 at 21:00; Stop 04/18/18 at 08:21; Status DC Glucose (Glucose) 16 GM ASDIRECTED PRN PO SEE LABEL COMMENTS; Start 04/11/18 at 15:30; Stop 04/15/18 at 20:56; Status DC Glucose (Glucose) 16 GM ASDIRECTED PRN PO SEE LABEL COMMENTS; Start 04/15/18 at 21:00; Stop 04/18/18 at 08:21; Status DC Home Med (Med Rec Complete!) ASDIRECTED XX ; Start 04/11/18 at 16:00; Stop 04/11/18 at 16:06; Status DC Hydralazine HCl (Apresoline) 25 mg Q8H PO Last administered on 04/18/18at 05:22; Start 04/11/18 at 22:00; Stop 04/18/18 at 08:21; Status DC Insulin Detemir (Levemir Insulin) 5 units QHS SC Last administered on 04/17/18at 21:38; Start 04/14/18 at 21:00; Stop 04/18/18 at 08:21; Status DC Insulin Detemir (Levemir Insulin) 12 units QHS SC Last administered on 04/13/18at 21:11; Start 04/11/18 at 21:00; Stop 04/14/18 at 10:28; Status DC Insulin Human Lispro (HumaLOG INSULIN) 2 units AC SC Last administered on 04/17/18at 17:08; Start 04/16/18 at 17:30; Stop 04/18/18 at 08:21; Status DC Insulin Human Lispro (HumaLOG INSULIN) SEE PROTOCOL TABLE AC SC ; Start 04/11/18 at 17:30; Stop 04/11/18 at 17:30; Status DC Insulin Human Lispro (HumaLOG INSULIN) SEE PROTOCOL TABLE Q6H SC Last administered on 04/15/18at 17:41; Start 04/11/18 at 18:00; Stop 04/15/18 at 20:46; Status DC Insulin Human Lispro (HumaLOG INSULIN) See Protocol Table AC SC Last administered on 04/17/18at 17:07; Start 04/16/18 at 07:30; Stop 04/18/18 at 08:21; Status DC Loratadine (Claritin) 10 mg DAILY PO Last administered on 04/17/18at 08:55; Start 04/14/18 at 16:15; Stop 04/18/18 at 08:21; Status DC Metoprolol Tartrate (Lopressor) 50 mg BID PO Last administered on 04/17/18at 08:56; Start 04/11/18 at 21:00; Stop 04/17/18 at 13:34; Status DC Metoprolol Tartrate (Lopressor) 50 mg TID PO Last administered on 04/17/18at 21:37; Start 04/17/18 at 16:00; Stop 04/18/18 at 08:21; Status DC Nitroglycerin (Nitrostat (1/ 150)) 0.4 mg Q5MP PRN SL CHEST PAIN Last administered on 04/18/18at 05:02; Start 04/11/18 at 15:30; Stop 04/18/18 at 08:21; Status DC Ondansetron HCl (ZOFRAN INJection) 4 mg Q6HP PRN IM NAUSEA; Start 04/11/18 at 15:30; Stop 04/17/18 at 19:45; Status DC Ondansetron HCl (Zofran) 4 mg Q6HP PRN PO NAUSEA OR VOMITING Last administered on 04/18/18at 03:51; Start 04/17/18 at 19:45; Stop 04/18/18 at 08:21; Status DC Ramipril (Altace) 1.25 mg QPM PO Last administered on 04/13/18at 21:09; Start 04/11/18 at 21:00; Stop 04/16/18 at 15:33; Status DC Ranitidine HCl (Zantac) 150 mg BID GT Last administered on 04/15/18at 08:17; Start 04/11/18 at 21:00; Stop 04/15/18 at 20:58; Status DC Ranitidine HCl (Zantac) 150 mg BID PO Last administered on 04/16/18at 08:37; Start 04/15/18 at 21:00; Stop 04/16/18 at 16:11; Status DC Saliva Substitute (Mouthkote) 2 sprays Q4HP PRN MT SYMPTOM RELIEF; Start 04/12/18 at 15:15; Stop 04/18/18 at 08:21; Status DC Sodium Chloride (Lewis Nasal [place]) 2 spray BID NA Last administered on 04/13/18at 10:03; Start 04/11/18 at 21:00; Stop 04/14/18 at 16:20; Status DC Sodium Chloride (Lewis Nasal [place]) 2 spray TID NA Last administered on 04/17/18at 21:39; Start 04/14/18 at 21:00; Stop 04/18/18 at 08:21; Status DC Sucralfate (Carafate Suspension) 1 gm AC PO Last administered on 04/17/18at 17:06; Start 04/16/18 at 17:30; Stop 04/18/18 at 08:21; Status DC Trazodone HCl (Desyrel) 25 mg Q6HP PRN PEG AGITATION; Start 04/11/18 at 15:30; Stop 04/16/18 at 14:11; Status DC Trazodone HCl (Desyrel) 25 mg Q6HP PRN PO AGITATION; Start 04/16/18 at 14:15; Stop 04/16/18 at 18:44; Status DC Trazodone HCl (Desyrel) 25 mg QHS PEG Last administered on 04/15/18at 21:45; Start 04/11/18 at 21:00; Stop 04/16/18 at 14:11; Status DC Trazodone HCl (Desyrel) 25 mg QHS PO ; Start 04/16/18 at 21:00; Stop 04/16/18 at 21:00; Status DC Zinc Oxide (Boudreauxs Butt Paste) sacrum (inner crease) BID TOP Last administered on 04/16/18at 21:18; Start 04/11/18 at 21:00; Stop 04/18/18 at 08:21; Status DC CACHORRO MEDEL MD Apr 18, 2018 15:53
--- NOTE | 2018-04-18 22:01 | ECGEPIP ---
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
--- NOTE | 2018-04-24 08:50 | PMRDS ---
DATE OF ADMISSION: 04/11/2018 DATE OF DISCHARGE: 04/18/2018 CHIEF COMPLAINT/DISCHARGE DIAGNOSES: Debility secondary to recent coronary artery bypass graft (CABG) and aortic valve replacement with ventilator dependent respiratory failure and stroke. HISTORY OF PRESENT ILLNESS: This is a 73-year-old man with past medical history of aortic stenosis, coronary artery disease (CAD), diabetes type 2, and chronic kidney disease (CKD) who presented initially to [facility] emergency department (ED) with a syncopal episode and went into cardiac arrest twice. He was resuscitated and transferred to [facility] on vasopressors. He was admitted to the intensive care unit (ICU) where a chest tube was placed for right sided pleural effusion. Cardiology was consulted for severe aortic stenosis and an ejection fraction (EF) of 40% noted on his transesophageal echocardiogram (ROSEANN). He underwent a successful CABG on 02/21/2018 in addition to an aortic valve replacement performed by Dr. Mccloud. He continued to require ventilatory and vasopressor/inotrope support and an intra-aortic balloon pump was placed on 02/24/2018. There was concern for a possible pneumonia for which he was placed on empiric antibiotics. He was seen by renal for worsening creatinine and had a PermaCath placed for dialysis in addition to being diuresed. He had episodes of junctional rhythm and was bradycardic and was unable to tolerate beta blockers for many days, however, this did resolve. He had a percutaneous endoscopic gastrostomy (PEG) tube placed on 03/14/2018 and was weaned off the vent with eventual decannulation on 03/25/2018. He developed postoperative atrial fibrillation and was started on Coumadin. Additionally, he had thrombocytopenia and was treated with argatroban. On postoperative day 43, he was transferred out of the ICU and chest tubes removed on 04/10/2018. He was evaluated by therapy and found to have significant deconditioning and deemed medically appropriate for discharge to acute rehabilitation unit (ARU) on 04/11/2018. PAST MEDICAL HISTORY: Aortic stenosis. CAD. Diabetes type 2. CKD. Hypertension. Respiratory failure. Hypertension. HOSPITAL COURSE: The patient was admitted and enrolled in a comprehensive physical therapy (PT), occupational therapy (OT) and speech language pathology program. 24 hour nursing supervision was provided and weekly team meetings were held to discuss his prognosis and improvements. On 04/14/2018, he underwent a modified barium swallow and his diet was advanced to pureed with thinned. His was concerned that he might have had a stroke during his hospital course at [facility] and requested a MRI which was ordered on 04/14/2018 showing "Small acute right frontal and left parietal lobe infarct... Small subacute right parietal lobe infarcts". He was continued on aspirin and Coumadin for his atrial fibrillation. Given his allergy to statins, he was started on fenofibrate for secondary stroke prevention and continued on Prozac for motor recovery and mood. His blood pressures on Coumadin were monitored by medicine. He had thrombocytopenia upon admission stable around 100 and hematology was consulted for recommendations. Infectious workup was negative. Chest x-ray showing no aspiration or infiltrate. He did not have a cough. Admission urinalysis (UA) and urine culture were negative. He had persistent right eye blurriness, reporting that during his hospital stay at [facility] he had had bilateral eye swelling with pain and was given erythromycin antibiotic ointment treatment and ever since had had right sided blurry vision without pain. He also complained of bilateral frontal headache with sinus pressure and was started on Claritin, Flonase and nasal saline with improvement in his headaches. On 04/18/2018, he developed crushing chest pain and was transferred to ICU for cardiac workup. DISCHARGE MEDICATIONS: - aspirin - Coumadin - metoprolol - amlodipine - Lasix - vitamin C - trazodone - erythromycin - insulin - sucralfate - fenofibrate - ranitidine FUNCTIONAL HISTORY: Upon discharge to ICU, he was stand by assist for functional transfers, able to ambulate 300 feet also standby assist, and he was upgraded to a level 2 diet with thin liquids.
== END 2018-04-18 05:30 | disposition short-term general hospital (02) | DRG 948 ==
LOC: M PM&R 13:45
PROVIDERS: ADMIT Physical Medicine & Rehabilitation; ATTEND Physical Medicine & Rehabilitation
DX: R53.81 Other malaise (principal); Z95.2 Presence of prosthetic heart valve; I25.10 Atherosclerotic heart disease of native coronary artery without angina pectoris; E11.22 Type 2 diabetes mellitus with diabetic chronic kidney disease; N18.9 Chronic kidney disease, unspecified; Z86.74 Personal history of sudden cardiac arrest; I48.91 Unspecified atrial fibrillation; I12.9 Hypertensive chronic kidney disease with stage 1 through stage 4 chronic kidney disease, or unspecified chronic kidney disease; Z79.4 Long term (current) use of insulin; Z79.01 Long term (current) use of 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s; Z79.899 Other long term (current) drug therapy; Z88.0 Allergy status to penicillin; Z88.8 Allergy status to other drugs, medicaments and biological substances; Z91.018 Allergy to other foods; Z93.0 Tracheostomy status; I35.0 Nonrheumatic aortic (valve) stenosis; Z79.82 Long term (current) use of aspirin; K59.00 Constipation, unspecified; F32.9 Major depressive disorder, single episode, unspecified; D69.6 Thrombocytopenia, unspecified; D64.9 Anemia, unspecified; R07.9 Chest pain, unspecified

== ENCOUNTER 2018-04-18 05:26 | Inpatient (IN) | payer MEDICARE ==
[2018-04-18] VITALS (21 sets, daily range): BP systolic 102–195; BP diastolic 59–99; PULSE 78–88
[~2018-04-18] VITALS: Ht 177.8 cm; Wt 76.9 kg
[~2018-04-18 05:26] MED LIST changes: +AMLO10TA5 GT; +AMMO12LO TOP; +APAP325T4 GT; +ASPI81CH3 GT; +CITA-230 GT; +CLON-412 GT; +COUM1TAB14 GT; +DOCU5LIQ GT; +EPOG1000 SC; +FERR325T16 GT; +FOLI1TAB11 GT; +FURO20TA2 GT; +GUAI100S27 PO; +HEPA10004 INJ; +HYDR50TA GT; +INSUN SC; +INSUR SC; +LACROIN OU; +LANTINJ4 SC; +METO50TA7 GT; +MIRA3350 PO; +NITR0.4S14 SL; +NYST50SS SSP; +OCEA0.654 NARES; +QUET1TAB7 GT; +RAMI1CAP21 GT; +RANI1SYP GT; +SYST1SOL OU; +THERTAB30 GT; +VITA100066 GT; +VITA500T GT
[2018-04-18] MEDS ORDERED: MORPHINE 4 MG/ML 1ML VIAL/SYRINGE (J2270) IV PRN (05:30)
[2018-04-18] MEDS ORDERED: LABETALOL HCL 100 MG/20 ML VIAL IV STA (05:36)
[2018-04-18] MEDS ORDERED: MORPHINE 4 MG/ML 1ML VIAL/SYRINGE (J2270) As Ordered ONE (05:37)
[2018-04-18] MEDS ORDERED: LABETALOL HCL 100 MG/20 ML VIAL As Ordered ONE (05:49)
[2018-04-18] MEDS ORDERED: SUCRALFATE SUSP 1GM/10ML UD PO SCH (06:00)
[2018-04-18] MEDS ORDERED: ENOXAPARIN 80 MG/0.8 ML SYRINGE (J1650) SC SCH (06:00)
[2018-04-18] MEDS: HumaLOG INSULIN (NovoLOG) PER UNIT SC SCH ×3 (06:00→17:53)
[2018-04-18] MEDS: ONDANSETRON 4MG/2ML VIAL (J2405) IV SCH ×5 (06:55→21:48)
[2018-04-18] MEDS ORDERED: GLUCOSE 4 GM CHEW TABLET PO PRN (07:15)
[2018-04-18] MEDS ORDERED: DEXTROSE 50% 50 ML SYRINGE IV PRN (07:15)
[2018-04-18] MEDS ORDERED: PROMETHAZINE INJ 25 MG/ML VIAL (J2550) IV PRN (07:15)
[2018-04-18] MEDS ORDERED: GLUCAGON FOR INJ 1 MG VIAL (J1610) SC PRN (07:15)
[2018-04-18] MEDS ORDERED: FLUO40CA GT (07:32)
[2018-04-18] MEDS ORDERED: FENO145T13 GT (07:32)
[2018-04-18] MEDS ORDERED: PERI0.126 MT (07:32)
[2018-04-18] MEDS ORDERED: FLUTISP (07:32)
[2018-04-18] MEDS ORDERED: LORA-243 GT (07:32)
[2018-04-18] MEDS ORDERED: HYDR-3910 GT (07:32)
[2018-04-18] MEDS ORDERED: SUCR10SS GT (07:32)
[2018-04-18] MEDS ORDERED: PANTOPRAZOLE 40MG INJ (PROTONIX) (C9113) IV SCH (08:00)
[2018-04-18] MEDS ORDERED: QUEtiapine FUMARATE 25 MG TAB GT PRN (08:45)
[2018-04-18] MEDS ORDERED: CHLORHEXIDINE GLUCONATE 0.12 % 15ML UDC (PERIDEX ORAL RINSE) MT SCH (09:00)
[2018-04-18] MEDS ORDERED: METOPROLOL TART 50 MG TAB PO SCH (09:00)
[2018-04-18] MEDS: FLUoxetine 20 MG CAP GT SCH ×2 (09:00→09:41)
[2018-04-18] MEDS ORDERED: CitaloPRAM (CeleXA) 10 MG TABLET GT SCH (09:00)
--- NOTE | 2018-04-18 09:16 | REP ---
CT abdomen and pelvis without IV contrast: History: Nausea and vomiting. Comparison CT abdomen study November 08, 2014. CT findings: Preliminary digital basketball scout radiograph shows a feeding gastrostomy tube and orally ingested barium throughout the nondilated large bowel. There are small bilateral pleural effusions, right slightly larger than left. There is some pericardial thickening and pericardial calcification. Mitral annular and vascular calcification is noted. There is evidence of an aortic valve replacement. There is a 4 mm nodule in the right middle lobe of the lung which is unchanged from the 2015 study and felt to be benign. There is some discoid atelectasis in the lower lobes bilaterally. Gastrostomy tube is seen in place along the mid stomach anteriorly. No adrenal lesion is seen. The liver and the spleen are normal in size, homogeneous in texture. There is some increased attenuation material in the dependent portion of the gallbladder suggesting sludge and/or stones. No pericholecystic fluid or gallbladder wall thickening is seen. No pancreatic abnormality is observed. Small bowel loops are normal in caliber. No obstructive lesion is seen. The colon is fairly well opacified by the previously ingested oral contrast. No acute colonic abnormality is appreciated. The appendix is not separately identified but no inflammatory changes are seen adjacent to the cecum. There is no evidence of hydronephrosis or intrarenal calculus on either side. No renal mass lesion is observed. Urinary bladder is somewhat distended but appears intact. Dystrophic calcifications are noted in the prostate. No abdominal wall defect is seen. No acute bony abnormality is observed. Impression: The colon is opacified from previously administered oral contrast but appears unremarkable. No obstructive gastrointestinal lesion is seen. Mildly distended urinary bladder and dystrophic calcifications in the prostate. No hydronephrosis. Small bilateral pleural effusions, right a little larger than left. Gastrostomy tube in place. Electronically Signed by Jesus Moser MD 04/18/2018 10:21 A
--- NOTE | 2018-04-18 09:21 | HPEPDOC ---
[facility] Medical History & Physical Date of Admission Apr 18, 2018 Attending Physician: ABHILASH NUÑEZ MD History and Physical CHIEF COMPLAINT: Nausea, vomiting chest discomfort. HISTORY OF PRESENT ILLNESS: 73 y/o male with multiple co-morbidities who was admitted to ARU on 04/11/18 s/p 6-vessel bypass and aortic valve replacement at [facility] on 02/21/18. I was called at bedside on the morning of 04/16/17 because the patient was complaining of nausea and chest discomfort. The patient has been been complaining of nausea throughout the night but 5o-clock in the morning he began to experience chest discomfort that he rated 10/10. He stated the chest discomfort felt heavy on his chest and has this feeling in the past when he had his LA. He was given 1 0.4SL nitroglycerin which reduced the pain 5/10. His blood pressure at the time was elevated systolic in 180 and he was placed on oxygen and given 2 mg IM morphine. The patient was continue to be diaphoretic, nausea with vomiting that was not improved with Zofran and Phenergan. EKG at bedside was done but because of the patient extensive recent cardiac history and no improvement of symptoms patient was transfer to ICU for ACS rule out. PAST MEDICAL HISTORY: 1. Congestive Heart Failure 2. Hx of Squamous cell cancer 3. Coronary Artery Disease with angina pectoris 4. Hx Cardiopulmonary Arrest 02/2018 5. Type 2 Diabetes Mellitus 6. Hx Of Postoperative Cardiogenic Shock 7. Hx of Post Op Atrial Fibrillation 8. Depression 9. Hx of LA (2007) PAST SURGICAL HISTORY: 1. CABG X 6 vessels 02/2018 2. Percutaneous Endogastrostomy Tube Trip 3. Aortic Valve Bioprosthetic Bovine Replacement #25 Magna Ease 02/2018 4. Hx of Skin biopsies . SOCIAL HISTORY: Marital status: Tobacco use: non smoker ETOH: Denies Etoh use Illicit drug use: Denies FAMILY HISTORY: Father: Hx of LA Mother: HTN and DM2 ALLERGIES: Please see below. REVIEW OF SYSTEMS: CONSTITUTIONAL: HEENT: Denies Vision change, rhinorrhea. CARDIOVASCULAR: Admits to chest discomfort/pressure and lightheadedness. denies palpitations. RESPIRATORY: Denies shortness of breath, GASTROINTESTINAL: Admits to Nausea, Vomiting. Denies abdominal Discomfort MUSCULOSKELETAL: no new muscle aches or joint pain. Admits to chronic low back pain. HOME MEDICATIONS: Please see below. PHYSICAL EXAMINATION: VITAL SIGNS: Please see below. GENERAL APPEARANCE: Diaphoretic, Nausea pale in color. RESPIRATORY: Clear to auscultate bilateral b/l, no wheezing, rales or rhonchi CARDIOVASCULAR: normal s1, s2, no murmurs, rubs or gallops. ABDOMEN: Bowl sounds in all four quadrants. peg tube in place without surrounding erythema or pus/blood exudation, no distension, no rebound, no guarding EXTREMITIES: no swelling, cyanosis or mottling. Chronic venous changes on the shins. PSYCHIATRIC: slightly anxious SKIN: Well healed chest tube insertion sites b/l lower thoracic posteriorly, well healed mid-line sternotomy site without hypertrophy, erythema, pus or blood exudation LABORATORY DATA: See below. MICROBIOLOGY: Please see below. ASSESSMENT/PLAN: 1. Nausea, vomiting chest discomfort. Unsure if this is an NSTEMI or acid reflux. with the patient extensive cardiac history and that he got relief with nitroglycerin, morphine and oxygen. I would like to rule an underlying cardiac cause such as NTEMI. We will transfer him to the ICU. Trend his Troponin X3. EKG done at bedside in ARU showed poor r-wave progression but no S-T changes can be noted. Cardiology was consulted. We will also get a CT abdomen pelvis to evaluate if there is any possible GI pathology such gastroparesis. Will start him on Pantoprazole and Carafate and keep him NPO. 2. CAD s/p cardiac cath and CABG. -c/w coumadin and aspirin daily. 3. HTN -c/w hydralazine, clonidine, Lasix, Lopressor and ramipril 4. DM2 -c/w sliding scale insulin and 5 units levemir daily -NPO currently because of N/V. FSBS Q6H. 5. PEG tube -continue tube feeds when Diet changes. 6. History of AKF s/p CABG/AV replacement -Good urine output -kidney function improving. will continue to monitor 7. History of a. fib post-operatively -Normal Sinus rhythm currently c/w coumidin at current dose, 8. Depression -Continue with fluroxene 9 Hx severe Aortic stenosis s/p Bovine Aortic Valve replacement. Continue with Coumadin with daily INR check. Therapeutic levels for tissue valve is in 2.0-3.0 10. Abnormal Brain MRI. 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 As well as small subacute right parietal lobe infarction. -Was working with ARU for failure to thrive. currently not complaining of neuro deficit. Will need to look into about possible cause of multiple stoke once current acute condition is managed. 11. DVT px c/w Coumadin therapy Disposition: The patient will be admitted to Dr. Serna Service at 04/18/18 at 7 AM . Vital Signs Vital Signs Date Time Temp Pulse Resp B/P (MAP) Pulse Ox O2 Delivery O2 Flow Rate FiO2 04/18/18 06:26 76 19 174/90 (118) 100 Nasal Cannula 2.0 04/18/18 05:57 98.8 Home Medications Scheduled (Aspirin Childrens) 81 Mg Chw, 81 MG GT DAILY (Theragran-M) 1 Tab Tab, 1 TAB GT DAILY Amlodipine Besylate (Amlodipine Besylate) 10 Mg Tab, 10 MG GT DAILY D/C'D AT PMR Ascorbic Acid (Vitamin C) 500 Mg Tab, 500 MG GT BID Chlorhexidine Gluconate (Peridex) 0.12 % Mehreen, 15 ML MT TID STARTED IN PMR Cholecalciferol (Vitamin D) 1,000 Unit Tab, 1,000 UNIT GT DAILY Citalopram Hydrobromide (Citalopram) 20 Mg Tab, 10 MG PO DAILY Clonidine Hydrochloride (Clonidine HCl) 0.1 Mg Tab, 0.1 MG GT BID HOLD FOR SYSTOLIC BP <120 Docusate Sodium (Docusate Sodium) 50 Mg/5 Ml Liq, 10 ML GT BID Epoetin Jos (Epogen) 10,000 Unit/Ml Inj, 0.3 ML SC 3XW NEXT DOSE DUE 04/11/18 AT 2000. MON/WED/FRI Fenofibrate (Fenofibrate) 145 Mg Tab, 145 MG GT DAILY STARTED AT PMR Ferrous Gluconate (Ferrous Gluconate) 324 Mg Tab, 324 MG GT BID Fluticasone Propionate (Fluticasone Propionate) 50 Mcg/Act Spr, 1 SPRAY NA BID STARTED AT PMR Folic Acid (Folic Acid) 1 Mg Tab, 1 MG GT DAILY Furosemide (Furosemide) 20 Mg Tab, 20 MG GT DAILY Guaifenesin (Guaifenesin) 100 Mg/5 Ml Syp, 5 ML PO QID Heparin Sodium (Porcine) (Heparin Sodium) 5,000 Unit/0.5 Ml Inj, 5,000 UNIT INJ Q8H Hydralazine HCl (Hydralazine HCl) 25 Mg Tab, 25 MG GT Q8H CHANGE FROM 50MG TO 25MG AT PMR Insulin Glargine (Lantus Solostar) 100 Unit/Ml Inj, 5 UNITS SC QHS CHANGE FROM 18 UNITS TO 5 UNITS AT PMR Insulin Human Regular (Novolin R) 1 Ml Soln, 1 DOSE SC Q6H PER SLIDING SCALE, 2-9 UNITS Loratadine (Loratadine) 10 Mg Tab, 10 MG GT DAILY STARTED AT PMR Metoprolol Tartrate (Metoprolol Tartrate) 50 Mg Tab, 50 MG GT BID Nystatin (Nystatin Oral Susp) 5 Ml Susp, 5 ML SSP QID X 7 DAYS. Polyethylene Glycol (Systane 0.4-0.3 %) 15 Ml Mehreen, 1-2 DROP OU Q4H Polyethylene Glycol (Miralax) 1 Pow Pow, 17 GM PO DAILY dilute in 8 ounces of water or juice Ramipril (Ramipril) 1.25 Mg Cap, 1.25 MG GT QHS Ranitidine Hcl (Ranitidine HCl) 15 Mg/Ml Syrp, 10 ML GT QHS Sucralfate (Sucralfate) 1 Gm/10 Ml Marjan, 1 GM GT AC STARTED AT PMR Warfarin Sod (Coumadin) 4 Mg Tab, 8 MG GT DAILY Scheduled PRN (Refresh Lacri-Lube) 1 Oin Oin, 1 APLCT OU DAILY PRN for DRY EYES Acetaminophen (Apap) 325 Mg Tab, 650 MG GT Q4H PRN for FEVER Ammonium Lactate (Ammonium Lactate) 12 % Lot, 1 APLCT TOP BID PRN for DRY SKIN Insulin Human NPH (Novolin N) 1 Ml Susp, 1 DOSE SC Q6H PRN for HIGH BLOOD SUGAR FOR HIGH BLOOD PRESSURE IF ENTERAL FEEDING IS INTERRUPTED. Nitroglycerin (Nitroglycerin) 0.4 Mg Sub, 0.4 MG SL Q5MP PRN for CHEST PAIN Quetiapine Fumerate (Quetiapine Fumarate) 25 Mg Tab, 12.5 MG GT QHS PRN for SLEEP Sodium Chloride ([place] Nasal [place]) 0.65 % Spr, 2 SPRAY NARES TID PRN for ALPA EACH NOSTRIL Allergies Coded Allergies: [place] (Verified Allergy, Severe, ANAPHYLAXIS, 8/4/15) Penicillins (Verified Allergy, Severe, ANAPHYLAXIS, 08/04/14) Metformin (Verified Allergy, Unknown, 02/16/18) Statins (Verified Allergy, Unknown, 02/16/18) Duloxetine (Unverified Adverse Reaction, Mild, N/V, 04/16/18) GME ATTESTATION GME ATTESTATION My faculty preceptor for this patient encounter was physically present during the encounter and was fully available. All aspects of the patient interview, examination, medical decision making process, and medical care plan development were reviewed and approved by the faculty preceptor. The faculty preceptor is aware and concurs with the plan as stated in the body of this note and will attest to such by his/her cosignature. ATTENDING NOTE Attestation: I have supervised the biomedical field service engineer and discussed patients evaluation and medical management. I agree with the outlined management plan as documented in the residents note. DAKSHA ARZOLA DO Apr 18, 2018 08:52 EMILY LOPEZ MD Apr 18, 2018 19:38
[2018-04-18] MEDS: FENOFIBRATE 145 MG TAB (TRICOR) GT SCH ×2 (09:40→10:02)
[2018-04-18] MEDS: PANTOPRAZOLE 40MG INJ (PROTONIX) (C9113) IV SCH ×2 (09:40→20:28)
[2018-04-18] MEDS: LORATADINE 10 MG TAB GT SCH ×2 (09:41→10:03)
[2018-04-18] MEDS: FUROSEMIDE 20 MG TAB GT SCH ×2 (09:41→10:02)
[2018-04-18] MEDS: cloNIDine 0.1 MG TAB GT SCH ×3 (09:41→20:30)
[2018-04-18] MEDS: guaiFENesin SYRUP 200 MG/10 ML UDC PO SCH ×4 (10:01→20:28)
[2018-04-18] MEDS ORDERED: CITA-230 PO (10:12)
[2018-04-18] MEDS ORDERED: METOCLOPRAMIDE INJ 10MG/2ML VIAL (J2765) As Ordered ONE (11:59)
[2018-04-18] MEDS ORDERED: FLEET OIL RETENTION ENEMA PR PRN (12:00)
[2018-04-18] MEDS ORDERED: MIRALAX *UNIT DOSE* 17GM PACKET PO ONE (12:00)
[2018-04-18] MEDS ORDERED: METOCLOPRAMIDE INJ 10MG/2ML VIAL (J2765) IV ONE (12:00)
[2018-04-18] MEDS: CitaloPRAM (CeleXA) 10 MG TABLET PEG SCH (12:04)
[2018-04-18] MEDS: SUCRALFATE SUSP 1GM/10ML UD GT SCH ×2 (12:04→17:52)
--- NOTE | 2018-04-18 14:03 | CR ---
DATE OF CONSULTATION: 04/18/2018 REASON FOR CONSULTATION: Thrombocytopenia. This is a very pleasant 73-year-old gentleman who had been transferred from a rehab facility status post six vessel bypass, aortic valve replacement and TAVR procedure at [facility] in [place] on 02/21/2018. The patient had suffered complications regarding this procedure including a pleural effusion and atrial fibrillation requiring defibrillation, intubation, long hospital stay with thrombocytopenia and required argatroban therapy intravenously for anticoagulation until he was out of the ICU. He was then seen in the hospital here and was noted to have a platelet count of about 100,000 with some ecchymosis area. Currently, the patient is here in the ICU at [facility]. He is awake. He is alert. His is at the bedside for further discussions. He is currently on Coumadin therapy for anticoagulation and has had minimal nosebleeds. He has not required any transfusions of any platelets to date. ALLERGIES: His allergies are to: 1. Cucumbers. 2. PENICILLINS. 3. METFORMIN. 4. STATINS. 5. DULOXETINE. HOME MEDICATIONS: His medications include: - insulin one dose subcu q.6 h p.r.n. - nitroglycerin - quetiapine fumarate 25 mg he takes 12.5 mg p.o. for sleep - [place] mist nasal spray - amlodipine besylate 10 mg p.o. daily, discontinued - ascorbic acid 500 mg p.o. daily - aspirin 81 mg p.o. daily - chlorhexidine gluconate 15 mg p.o. t.i.d. - cholecalciferol 1000 units p.o. daily - citalopram hydrobromide 20 mg p.o. daily - clonidine hydrochlorothiazide 0.1 mg p.o. b.i.d. - docusate sodium 50 mg p.o. b.i.d. - Epogen rishabh 10,000 units/mL, he gets that three times a week - fenofibrate 140 mg p.o. daily - ferrous gluconate 325 mg p.o. daily - folic acid 1 mg p.o. daily - Lasix 20 mg p.o. daily - guaifenesin 100 mg p.o. q.i.d. - hydralazine 25 mg p.o. q.8 h - 5 units of insulin subcu q.h.s. - loratadine 10 mg p.o. daily - metoprolol 50 mg p.o. b.i.d. - nystatin 5 mL p.o. q.i.d.. - ranitidine 15 mg/mL q.h.s. - Carafate 1 gram GT a.c. - Coumadin PAST MEDICAL HISTORY: Includes: Above noted surgery. Congestive heart failure (CHF). Squamous cell carcinoma. Depression. Diabetes. PAST SURGICAL HISTORY: Cardiac catheterization. Bypass times six vessels. Transcatheter aortic valve replacement (TAVR). Skin biopsies. FAMILY HISTORY: Mother had diabetes type 2 and hypertension. Father has a history of an [place]. SOCIAL HISTORY: Nonsmoker. Negative for EtOH. REVIEW OF SYSTEMS: The patient currently relates that he has a scant nosebleed. He has had no visual problems. Taste is decreased. He has had constipation since he has been in the hospital. He has had no bleeding, hematuria, or any dark tarry stools. He has no signs of any current extremity swelling. He has a GT tube in place without any pain. He has generalized fatigue, weakness. PHYSICAL EXAMINATION: Vitals are per RN sheet. HEENT is normocephalic, atraumatic. Sclera is white, nonicteric. He has generalized pallor. Oropharynx is otherwise clear. His neck is supple. Chest has decreased breath sounds at the bases. Cardiovascular S1 and S2 are appreciated with no murmurs. His abdomen is somewhat globoid. He has a GT tube in place. He has some ecchymosis on the extremities. LABORATORY DATA: On his laboratories his WBC count is 7.4, hemoglobin is 9.2/26.9, MCV of 96.8, MCH is 33.1, RDW is 19.4, platelets 120,000, neutrophils of 62%, lymphocytes 21% and platelets are 120,000. A review of the patient's prior laboratories show the patient has not had a drop below 80,000. Thrombocytopenia may be secondary to medication effect, ITP is unlikely. Status post bypass the patient's usually will have some destruction of platelets, however, this should be recovering with an approximately 2-3 weeks time period and should be normalizing. The patient has a normochromic normocytic anemia which could be anemia of chronic disease. Also, he has had some blood loss from going through the bypass surgery. His ferritin is over 683 and his iron saturation is 21.8, serum iron is about 42. Would reevaluate his platelet counts and his hemoglobin/hematocrit after he has been out of the acute setting. Also continue Coumadin therapy unless the patient's platelet counts of 50,000 or below, I would continue any anticoagulation for current diagnosis of atrial fibrillation. Would be happy to see the patient if his platelet count should fall below 100,000.
[2018-04-18] MEDS ORDERED: WARFARIN SOD 4 MG TAB GT ONE (17:00)
[2018-04-18] MEDS ORDERED: MAG SULF 1GM/100ML (MAG RUN) 1 GM in APPROPRIATE DILUENT 1 EA IV ONE (18:15)
--- NOTE | 2018-04-18 18:44 | IPNPDOC ---
Date Seen The patient was seen on 04/18/18. Progress Note SUBJECTIVE: Patient is a 73-year-old male with nausea, vomiting, abdominal pain. His evaluated bedside. His is present. Brief synopsis of patient's hospital course - patient was transferred from [facility] to acute rehabilitation on 04/11/2018. Prior to his discharge from [facility] he had initially been seen at [facility] on 02/17/2018 for syncope. Patient was found to have right-sided pleural effusion with a severe aortic stenosis. He sustained cardiac arrest 2. He was intubated, right-sided chest tube was inserted, right-sided femoral arterial line placed, and left-sided central line placed in femoral vein. Head CT was obtained which did not reveal any acute hemorrhage. He was subsequently transferred to [facility]. A transesophageal echocardiogram was obtained which revealed left ejection fraction 40%. Patient underwent a 6 vessel coronary artery bypass graft on 02/21/2018 with an aortic valve replacement. She remained intubated for vasopressor/inotropic support. An intra-aortic balloon pump was placed on 02/24/2018. Started on empiric antibiotics for suspected pneumonia. In light of renal failure PermCath was placed for CRRT. Developed junctional rhythm with bradycardia with inability to tolerate beta blockers. This resolved. PEG tube was placed on 03/14/2018 with extubation on 04/04/2018. Patient developed postoperative atrial fibrillation was started on Coumadin. Was also found to be thrombocytopenic and treated with Argatroban. Chest tubes removed on 04/10/2018. Brief synopsis of patient's ARU course - patient admitted to a review on 04/11/2018. Remained on PEG feedings at that time. Metoprolol and Warfarin continued; however, patient appeared to remain subtherapeutic until 04/17/2018. is concerned with patient's right eye blurry vision and an MRI brain was obtained 04/14/2018 which did reveal an acute right-sided frontal infarction and an acute left-sided parietal infarction. Patient remained on aspirin and Coumadin. He was started on fenofibrate secondary to statin allergy. Patient was thrombocytopenic for which hematology/oncology was consulted. Zantac was discontinued. His diet was advanced as no penetration or aspiration was noted on speech evaluation. Patient developed nausea with chest discomfort 04/18/2018. He was given nitroglycerin which improved his chest discomfort. He is noted to have an elevated systolic pressure was given morphine. He remained diaphoretic with nausea and vomiting that did not improve with Zofran or Phenergan. Due to his significant cardiac history decision was made to transfer the patient to the ICU for further evaluation. OBJECTIVE PHYSICAL EXAMINATION: VITAL SIGNS: Please see below. GENERAL: Pale elderly male, alert and conversant during follow-up evaluation, laying in bed in the supine position and appears to be comfortable, appropriately dressed in hospital attire, no acute distress. HEENT: Atraumatic, normocephalic, PERRL, EOMI, oral mucosa appears pink and moist, nasal septum is midline, nares are patent, midline healed surgical anterior chest incision. CARDIOVASCULAR: Regular rate and rhythm, normal S1 and S2, no murmur, rub, click. RESPIRATORY: Clear to auscultation bilaterally, but with diminished breath sounds throughout, no audible wheeze, rhonchi, crackles. ABDOMINAL: Soft, nontender, somewhat distended, PEG tube noted, bowel sounds appreciated throughout. EXTREMITIES: Knee-high sequential compression stockings in place, no clubbing, no cyanosis, no peripheral edema. NEUROLOGICAL: No visible focal neurological deficits. PSYCHOLOGICAL: Mood and affect appropriate. LABORATORY DATA, IMAGING STUDIES, MICROBIOLOGY: Please see below. Modified barium cookie swallow on 04/14/2018 - no evidence of penetration or aspiration. MRI brain without contrast on 04/14/2018 - small acute right frontal and left parietal lobe infarctions. Small subacute right parietal lobe infarction. Small vessel ischemic disease. Mild volume loss. Chest x-ray, two-view, PA and lateral 04/16/2018 - status post aortic valve replacement. 4.5 cm pleural opacity at the right base, mild wedge compression fracture deformity T12. CT abdomen and pelvis without contrast on 04/18/2018 - colon opacified from previously administered oral contrast, no obstructive gastrointestinal lesion, mildly distended urinary bladder, dystrophic calcifications of the prostate, no hydronephrosis, small bilateral pleural effusions, gastrostomy tube. Echocardiogram: Completed. DVT prophylaxis ordered?: Warfarin 8 mg by mouth daily. ASSESSMENT AND PLAN: This is a 73-year-old male with nausea, vomiting, and abdominal pain. PROBLEMS: 1. Nausea, vomiting, and abdominal pain: General surgery consulted. Recommended Reglan 10 mg IV as one-time dose. Patient is nothing by mouth for the time being. Patient appears to have slow colonic transit if there is still oral contrast noted in his colon from the modified barium swallow from 04/14/2018. Have administered a mineral oil enema. Will administer magnesium citrate. Patient received one packet of MiraLAX. Patient remains on Protonix 40 mg IV every 12 hours. Continue with Carafate. Zofran and Phenergan IV. Fecal occult blood test was negative. Speech evaluation was negative for penetration or aspiration. 2. 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 Was started on Coumadin at that time. Appears to remain subtherapeutic until 04/17/2018. Patient was started on fenofibrate. Will continue warfarin 8 mg by mouth daily with daily INR evaluations. Ordered carotid ultrasound, transthoracic echocardiogram, and MRA brain. Neurology has been consulted. Started patient on aspirin 81 mg by mouth daily. Patient is less likely requiring 24-48 permissive hypertension. 3. Mild wedge compression fracture deformity, T12: Orthopedics consulted. No intervention at this time. Patient is hemodynamically stable. 4. Coronary artery disease status post 6 vessel coronary artery bypass graft: Continue metoprolol 50 mg via G-tube twice daily. Restarted patient's aspirin 81 mg by mouth daily. Troponins have been <0.02. No evidence of acute ischemia on EKG. Patient currently remains in the intensive care unit and on telemetry. Cardiology was consulted. 5. Postoperative atrial fibrillation: Patient was started on warfarin 8 mg at outlying facility. The patient remained subtherapeutic until 04/17/2018. Is currently supratherapeutic with INR 3.33. Will resume warfarin 8 mg by mouth daily starting tomorrow. 6. Severe aortic stenosis status post aortic valve replacement: Stable. Obtaining transthoracic echocardiogram. 7. Thrombocytopenia and anemia: Hematology/oncology consulted. Peripheral smear obtained revealed underlying chronic anemia. B12 level was above normal. Folate was within normal limits. Iron studies revealed anemia of chronic disease. No intervention needed at this time his thrombocytopenia is improving. Less likely secondary to immune thrombocytopenia this patient is also anemic without leukopenia. Anemia stable at this point. 8. Chronic kidney disease: Creatinine appears around baseline. Continue Lasix 20 mg. Supplementing magnesium for a low normal magnesium level. 9. Hypertension: Continue ramipril 1.25 mg nightly, clonidine 0.1 mg twice daily with hold parameters for systolic blood pressure < 120 and/or heart rate < 60. 10. Depression: Continue citalopram 10 mg daily. 11. Allergies: Continue loratadine 10 mg daily and Robitussin 5 mg four times daily. 12. Diabetes mellitus: Patient is nothing by mouth for the time being. Bolus i nsulin every 6 hours, fingersticks every 6 hours, and hypoglycemic protocol. DISPOSITION: Pending clinical improvement. Readmission to acute rehabilitative unit once medically stable. VS, I&O, 24H, Fishbone Vital Signs/I&O Vital Signs Date Time Temp Pulse Resp B/P (MAP) Pulse Ox O2 Delivery O2 Flow Rate FiO2 04/18/18 16:00 98.0 63 16 114/62 (79) 99 Room Air 04/18/18 10:00 2.0 Laboratory Data 24H LABS Laboratory Tests 2 04/18/18 09:19: Troponin I 0.02 04/18/18 13:54: Bedside Glucose (Misc Panel) 313H 04/18/18 14:04: Troponin I < 0.02 XU KEMP DO Apr 18, 2018 18:44
[2018-04-18] MEDS ORDERED: MAGNESIUM CITRATE 300 ML BTL GT ONE (19:00)
--- NOTE | 2018-04-18 19:32 | ECHO ---
DATE OF PROCEDURE: 04/18/2018 REFERRING PHYSICIAN: Dr. Hill INDICATION: CVA. HEIGHT: 178 cm WEIGHT: 75 kg DIMENSIONS: IVS: 1.3 LV: 4.1 LVPW: 1.3 LA: 4.3. Left atrial volume index: 34 mL per meter square. IVC: 1.9 Mitral E wave velocity: 109 A-wave: 90 E prime septal: 3.5 E prime lateral: 6.4 FINDINGS: The study is of acceptable technical quality. Left ventricle is of normal size. Mild left ventricular hypertrophy is noted. There is septal wall motion abnormality consistent with recent open heart surgery. Other than that, I cannot appreciate any distinct wall motion abnormalities based on somewhat limited views. Overall left ventricular ejection fraction (LVEF) approximately 55-60%. The right ventricle also appears grossly normal size and contractility. Left atrium is moderately enlarged, right atrium was poorly visualized but grossly appears normal. No pericardial effusion is noted. There is a bioprosthesis in aortic position; it appears structurally intact. Mitral valve exhibits prominent degenerative abnormalities with heavy mitral annular calcifications but mobility of leaflets is preserved. Tricuspid valve appears normal. Pulmonic valve was not seen. No pericardial effusion is noted. Inferior vena cava is normal size. Aortic root is normal. Aortic arch and abdominal aorta were not visualized. Doppler interrogation of aortic bioprosthesis reveals no insufficiency and normal gradient, mean gradient was 7 mmHg. There is mild mitral insufficiency and mild tricuspid insufficiency. Calculated pulmonary artery pressure is in high 40s, low 50s corresponding to moderate pulmonary hypertension. Mitral inflow pattern and tissue Doppler imaging of mitral annulus revealed grade 2 diastolic dysfunction. CONCLUSIONS: 1. Study is of acceptable technical quality. 2. Normal left ventricular (LV) size with mild left ventricular hypertrophy, overall preserved left ventricle systolic function and grade 2 diastolic dysfunction. 3. Normally functioning bioprosthesis in aortic position. 4. Mild mitral and tricuspid insufficiency. 5. Normal central venous pressure. 6. Suggestive of moderate pulmonary hypertension. COMMENT: Subacute bacterial endocarditis (SBE) prophylaxis is recommended.
--- NOTE | 2018-04-18 20:58 | REP ---
Duplex carotid sonography: History: CVA. Findings: Antegrade flow was observed in both vertebral arteries. Right carotid: The right common carotid artery shows minimal intimal thickening. There is mild mixed plaquing in the bulb and proximal ICA on two-dimensional scanning on the right side. Color flow and spectral Doppler interrogation are unremarkable however. Velocity chart right carotid: Right CCA PSV 62 cm/S Right ICA PSV 66 EDV 18 Right ECA/PSV 81 Right ICA/CCA ratio normal 1.1. Impression: 16-49% category narrowing in the right ICA by Doppler velocity criteria. Left carotid: Left common carotid artery shows mild diffuse intimal thickening. There is mixed plaquing in the bulb and proximal ICA on the left side, mild in degree. Color flow and spectral Doppler interrogation are unremarkable on the left. Velocity chart left carotid: Left CCA PSV 59 cm/S Left ICA PSV 47 EDV 12 Left ECA PSV 74 Left ICA/CCA ratio normal 0.8. Impression: 16-49% category narrowing in the left ICA by Doppler velocity criteria. Electronically Signed by Jesus Moser MD 04/19/2018 08:17 A
[2018-04-18] MEDS ORDERED: LEVEMIR (INSULIN DETEMIR) 1 UNITS/0.01ML SC SCH (21:00)
[2018-04-18] MEDS ORDERED: raNITIdine SYRUP 150 MG/10 ML UDC GT SCH (21:00)
[2018-04-18] MEDS: METOPROLOL TART 50 MG TAB GT SCH (21:00)
[2018-04-18] MEDS ORDERED: RAMIPRIL 1.25 MG CAP GT SCH (21:00)
--- NOTE | 2018-04-18 21:50 | CR ---
DATE OF CONSULTATION: 04/18/2018 INDICATION: Chest pain, nausea. REFERRING PHYSICIAN: Dr. Lisa Rain HISTORY OF PRESENT ILLNESS: Mr. Bernard is previously unknown to me. He is a 73-year-old man who has a rather dramatic an extensive recent medical history. He was in our facility in February 2018 after he suffered a syncopal event at home, then during his hospital stay he had cardiac arrest initially in the form of ventricular fibrillation and later in the form of pulseless electrical activity. Both times he was successfully resuscitated and was transferred to [facility] in [place] where coronary angiography revealed severe three-vessel coronary artery disease and transesophageal echocardiogram revealed severe aortic stenosis and estimated ejection fraction approximately 40%. He underwent aortic valve replacement with #25 Magna Ease bioprosthesis plus six-vessel coronary artery bypass graft (CABG); (LOPEZ to LAD, Y graft to diagonal, second diagonal and obtuse marginal, and sequential SVG to RCA and PDA) on February 21, [address] Mccloud. Subsequent postoperative course was very bumpy and was complicated by shock requiring placement of intra-aortic balloon pump on postoperative day #3. He had respiratory failure. He had acute renal failure that required renal replacement therapy. There was failure to thrive, which prompted eventually percutaneous endoscopic gastrostomy (PEG) tube placement. But, nevertheless, with prolonged postoperative course, he eventually improved and was transferred to our facility for rehabilitation. He was doing quite well but then at about 5 o'clock this morning he started developing fairly severe nausea with vomiting and chest discomfort. He was transferred to our intensive care, and I was asked to see him. When I saw him in the morning, he was extremely nauseated and was panting rapidly. He was complaining besides nausea also about pressure-like discomfort throughout his chest, but the nausea and vomiting was clearly the dominant complaint. He was vomiting clear fluid without any obvious particular matter it. His ECG at that point revealed left anterior fascicular hemiblock, but there were no ischemic abnormalities. His cardiac enzymes were also negative, and it was my impression that this presentation is not ischemic in nature. Subsequently, he continued to rule out for a new myocardial infarction and his troponin remained negative from 5:20 to 9:20 and 14:04. The last one is pending currently and was drawn around 8 o'clock in the evening. When I attended to him again this evening, he feels already much improved. He says that his nausea has essentially resolved after he received multiple doses of antiemetic medications. He also reports resolution of chest discomfort, and he does not feel short of breath. Besides serial ECGs, he also had an echocardiogram earlier today that I interpreted. It revealed normal function of bioprosthesis in aortic position and preserved left ventricular systolic function. PAST MEDICAL HISTORY: 1. Coronary artery disease, as above. 2. Type 2 diabetes. 3. Depression. 4. Obstructive sleep apnea. 5. History of postoperative atrial fibrillation and delirium. 6. Obesity. 7. Cerebrovascular accident. It is unclear what was the clinical manifestation but MRI in our facility on April 14, 2018 revealed acute right fontal and left parietal and subacute right parietal stroke. ALLERGIES: He reports allergies to DULOXETINE, METFORMIN, PENICILLIN, STATINS and CUCUMBERS. MEDICATIONS: Currently receiving warfarin, aspirin 81 mg, magnesium citrate, metoprolol 50 mg twice a day, ramipril 1.25 mg a day, sucralfate 1 gram every 6 hours, Protonix 40 mg IV twice a day, clonidine 1 mg through the nasogastric (NG) tube twice a day, fenofibrate 145 mg a day, furosemide 20 mg daily, Claritin 10 mg daily, Celexa 10 mg daily, plus antiemetics and insulin. FAMILY HISTORY: His father of myocardial infarction. His mother had diabetes and hypertension. SOCIAL HISTORY: The patient is a lifetime nonsmoker and does not drink alcohol. REVIEW OF SYSTEMS: He currently denies any chest pain or shortness of breath. He also denies any prior episodes of nausea or vomiting until he had his open heart surgery. There has been no diarrhea. No recent obvious bleeding. The rest as per history of the present illness or otherwise negative. PHYSICAL EXAMINATION: Mr. Bernard currently is comfortable. He dozing off but is easily arousable and answers simple questions appropriately. Blood pressure 109/66, heart rate has been in 60s. He is afebrile. Saturation 97% on room air. His jugular venous pressure (JVP) is not high. I do not appreciate carotid bruit. Lungs are clear to auscultation with good air movement. Heart: Exam reveals regular rhythm without gallop, rub or murmur. Abdomen is slightly tender in the epigastrium. There is a PEG tube in place that appears intact. Bowel sounds are positive. Extremities are free of edema. Peripheral pulses are detectable on both lower extremities even though the quality is poor. I do not appreciate any distinct trophic defects on his feet. Neurologically, I did not formally test his strengths, but he moves all four extremities and his speech is intact. LABORATORY: Basic metabolic panel: As of this morning, sodium 134, potassium 3.5, BUN 36, creatinine 1.6 for a GFR of 46 and glucose of 205, magnesium 1.7, ferritin 683, transferrin saturation 22%. Normal liver function tests. Cardiac enzymes negative. Albumin 2.6. CBC: Hemoglobin 9.2, hematocrit 26.9, and platelet count 120,000. His INR is therapeutic at 3.3. The imaging and ECG as per history of present illness. ASSESSMENT/PLAN: Mr. Bernard is a 73-year-old man who recently, specifically on February 21, 2018, underwent aortic valve replacement with bioprosthesis and six vessel coronary artery bypass graft. He today he presents to ICU with nausea and associated chest discomfort. At this point, I do not believe that his current symptoms are ischemic or cardiac in nature. My leading diagnosis would be gastroparesis consistent with his recent very stressful course and long history of type 2 diabetes. But as far as the cardiac management is concerned, I am very encouraged that he has preserved left ventricular systolic function and his valvular function is preserved. He is already on appropriate medications with the exception of no statin because he has a history of intolerance. Unfortunately, he has evidence for recent multiple ischemic strokes, most likely embolic events because he had postoperative atrial fibrillation and also episode of thrombocytopenia that ultimately was negative for heparin-induced thrombocytopenia (HIT), but I suspect that these are very likely the etiologic factors. Consequently, he will need to be anticoagulated probably permanently, but at a minimum for at least several months. Even though he is on Coumadin, and we could consider alternatives, in this situation I think it is probably most appropriate to continue with Coumadin because the absorption of alternatives is not totally guaranteed. Otherwise, I do not have much else to contribute to his medical care. His beater operator is Dr. Nair in [place]. [facility]
--- NOTE | 2018-04-18 22:02 | ECGEPIP ---
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
[2018-04-18] MEDS ORDERED: MAGNESIUM CITRATE 300 ML BTL GT PRN (23:00)
[2018-04-19] VITALS (38 sets, daily range): BP systolic 89–139; BP diastolic 50–71
[2018-04-19] MEDS: SUCRALFATE SUSP 1GM/10ML UD GT SCH ×5 (00:13→23:37)
[2018-04-19] MEDS: HumaLOG INSULIN (NovoLOG) PER UNIT SC SCH ×5 (00:13→21:00)
[2018-04-19] MEDS ORDERED: ONDANSETRON 4MG/2ML VIAL (J2405) IV PRN (01:30)
[2018-04-19] MEDS: ACETAMINOPHEN 325 MG/10.15 ML UDC GT PRN ×2 (02:09→21:07)
[2018-04-19 02:39] LABS: HEMOGLOBIN 8.8 g/dl (13.5-17.5); MEAN CORPUSCULAR HEMOGLOBIN 33.8 pg (27.0-33.0); MEAN CORPUSCULAR HGB CONC 32.6 g/dl (32.0-36.5); MEAN CORPUSCULAR VOLUME 103.8 fl (80.0-96.0); PLATELET COUNT, AUTOMATED 127 10^3/uL (150-450); WHITE BLOOD COUNT 6.7 10^3/uL (4.0-10.0)
[2018-04-19 02:50] LABS: INR 4.5; PROTHROMBIN TIME 43.8 SECONDS (12.1-14.4)
[2018-04-19 03:05] LABS: CALCIUM LEVEL 8.3 MG/DL (8.8-10.2); CREATININE FOR GFR 1.8 MG/DL (0.70-1.30); GLOMERULAR FILTRATION RATE 39.6 (>42); POTASSIUM SERUM 4.2 MEQ/L (3.5-5.1); TROPONIN I 0.02 NG/ML (< 0.10)
--- NOTE | 2018-04-19 08:50 | REP ---
MR angiography the brain without contrast: History: CVA. Technique: 3-D [id number] MR angiography of the brain is acquired in the usual fashion and maximal intensity projection images were generated in rotational format about the vertical and horizontal axes. In addition, source axial T1-weighted images are viewed in cine mode. MR angiographic findings: The distal vertebral arteries are patent and co-dominant. Basilar artery is a little tortuous but widely patent. The posterior cerebral and superior cerebellar vessels are patent, however, there is some atherosclerotic irregularity in the proximal posterior cerebral artery on the left. No high-grade stenosis. The distal internal carotid arteries are unremarkable. Anterior and middle cerebral arteries appear intact. There is no visible de aneurysm or arteriovenous malformation. Impression: Mild atherosclerotic irregularity in the proximal posterior cerebral artery on the left, otherwise unremarkable MR angiography the brain. Electronically Signed by Jesus Moser MD 04/19/2018 08:41 A
[2018-04-19] MEDS ORDERED: CitaloPRAM (CeleXA) 10 MG TABLET PEG SCH (09:00)
[2018-04-19] MEDS: METOPROLOL TART 50 MG TAB GT SCH ×2 (09:00→21:14)
[2018-04-19] MEDS ORDERED: ASPIRIN 81 MG ENTERIC TAB PO SCH (09:00)
[2018-04-19] MEDS: PANTOPRAZOLE 40MG INJ (PROTONIX) (C9113) IV SCH ×2 (09:45→21:08)
[2018-04-19] MEDS: guaiFENesin SYRUP 200 MG/10 ML UDC PO SCH ×4 (09:46→21:07)
[2018-04-19] MEDS: CitaloPRAM (CeleXA) 10 MG TABLET PEG SCH (09:46)
[2018-04-19] MEDS: ASPIRIN 81 MG CHEW TABLET PEG SCH (09:46)
[2018-04-19] MEDS: FENOFIBRATE 145 MG TAB (TRICOR) GT SCH (09:46)
[2018-04-19] MEDS: LORATADINE 10 MG TAB GT SCH (09:46)
--- NOTE | 2018-04-19 10:15 | CR ---
DATE OF CONSULTATION: 04/19/2018 CHIEF COMPLAINT: T12 compression fracture. HISTORY OF PRESENT ILLNESS: This 73-year-old man had an apparently complicated course with cardiac arrest and subsequent bypass grafting and a number of other medical issues. Apparently, he did have a fall and on his CT abdomen they found a compression fracture at T12. In speaking to the patient, apparently he does have a history of back surgery and he states that this had been done quite a few years ago in [place], [place]. He is not having any pain in his back or problems with bowel or bladder function. He is not having any numbness, tingling or weakness in his lower extremities. PAST MEDICAL HISTORY: 1. Abdominal pain. 2. Skin ulcer. 3. Lactic acidosis. 4. Congestive heart failure (CHF). 5. Pleural effusion. 6. Syncope. 7. Cardiac arrest. 8. Diabetes. 9. Atrial fibrillation (AFib). 10. Chest pain. MEDICATIONS: - acetaminophen - aspirin - citalopram - dextrose - enoxaparin sodium - fenofibrate - glucagon - glucose - guaifenesin - insulin - loratadine - metoprolol - mineral oil - morphine - ondansetron - pantoprazole - promethazine - sucralfate ALLERGIES: To CUCUMBER, DULOXETINE, METFORMIN, PENICILLINS, and STATINS. SURGICAL HISTORY: Cataracts, drainage of right pleural cavity, coronary artery bypass graft and aortic valve replacement. SOCIAL HISTORY: He is . Denies smoking, ethyl alcohol (EtOH) use or illicit drug use. PHYSICAL EXAMINATION: Vital signs: Temperature 100.9. Blood pressure 98/70, mean arterial pressure (MAP) 79, pulse rate 97, 97% on 2 liters nasal prongs. On inspection of his entire spine, there is no obvious erythema, ecchymosis, deformities, or skin changes. Palpation revealed no tenderness along the length of the cervical (C) spine, thoracic (T) spine or lumbar (L) spine in the midline or off midline. There is no obvious steps or gaps. Normal sensation from L2-S1 all 2/2. Good strength from L2-S1 again 5/5. Reflexes were 2+ and symmetric at the knees and 1+ and symmetric at the ankles. No evidence of clonus. Plantar is equivocal. Imaging was reviewed. CT scan was reviewed at the site of the fracture. There is T12 anterior compression fracture that may be new or old. There is minimal height loss. Minimal to no canal retropulsion. No evidence of pedicle or laminar fractures at this level. Overall the alignment is normal above and below the site of fracture. ASSESSMENT AND PLAN: This 73-year-old man with what may be an old or new mild compression fracture of T12 with good alignments, no neurologic deficits and no canal narrowing I believe we can treat this nonoperatively. He should be weightbearing as tolerated. If he does develop pain, I would suggest repeat imaging and/or using a thoracolumbar ortho assist. Edited: mavis 04/26/2018 1315 MTDD
--- NOTE | 2018-04-19 10:28 | REP ---
Portable chest x-ray: Single AP view. History: Fever. Question pneumonia, question aspiration. Comparison chest x-ray: April 16, 2018. Findings: The patient is status post aortic valve replacement. Today's radiograph is exposed at a lesser level of inspiration. The pleural opacity seen in the minor fissure on the April 16, 2018 study has decreased in size. There is some persistent fissural thickening. No pleural effusion is seen in the pleural angles. Heart is not unchanged in size. No new infiltrate is seen. Impression: No new infiltrate noted. Electronically Signed by Jesus Moser MD 04/19/2018 10:19 A
--- NOTE | 2018-04-19 12:28 | IPNPDOC ---
Date Seen The patient was seen on 04/19/18. Progress Note SUBJECTIVE: Patient is a 73-year-old male with nausea, vomiting, and abdominal pain. He is evaluated at bedside. His is present via Facetime. Patient reports improvement in his nausea, vomiting, abdominal pain. He has not had a bowel movement at my time of evaluation. Further denies chest pain or shortness of breath. Brief synopsis of patient's hospital course - patient was transferred from [facility] to acute rehabilitation on 04/11/2018. Prior to his discharge from [facility] he had initially been seen at [facility] on 02/17/2018 for syncope. Patient was found to have right-sided pleural effusion with a severe aortic stenosis. He sustained cardiac arrest 2. He was intubated, right-sided chest tube was inserted, right-sided femoral arterial line placed, and left-sided central line placed in femoral vein. Head CT was obtained which did not reveal any acute hemorrhage. He was subsequently transferred to [facility]. A transesophageal echocardiogram was obtained which revealed left ejection fraction 40%. Patient underwent a 6 vessel coronary artery bypass graft on 02/21/2018 with an aortic valve replacement. She remained intubated for vasopressor/inotropic support. An intra-aortic balloon pump was placed on 02/24/2018. Started on empiric antibiotics for suspected pneumonia. In light of renal failure PermCath was placed for CRRT. Developed junctional rhythm with bradycardia with inability to tolerate beta blockers. This resolved. PEG tube was placed on 03/14/2018 with extubation on 04/04/2018. Patient developed postoperative atrial fibrillation was started on Coumadin. Was also found to be thrombocytopenic and treated with Argatroban. Chest tubes removed on 04/10/2018. Brief synopsis of patient's ARU course - patient admitted to a review on 04/11/2018. Remained on PEG feedings at that time. Metoprolol and Warfarin continued; however, patient appeared to remain subtherapeutic until 04/17/2018. is concerned with patient's right eye blurry vision and an MRI brain was obtained 04/14/2018 which did reveal an acute right-sided frontal infarction and an acute left-sided parietal infarction. Patient remained on aspirin and Coumadin. He was started on fenofibrate secondary to statin allergy. Patient was thrombocytopenic for which hematology/oncology was consulted. Zantac was discontinued. His diet was advanced as no penetration or aspiration was noted on speech evaluation. Patient developed nausea with chest discomfort 04/18/2018. He was given nitroglycerin which improved his chest discomfort. He is noted to have an elevated systolic pressure was given morphine. He remained diaphoretic with nausea and vomiting that did not improve with Zofran or Phenergan. Due to his significant cardiac history decision was made to transfer the patient to the ICU for further evaluation. OBJECTIVE PHYSICAL EXAMINATION: VITAL SIGNS: Please see below. GENERAL: Pale elderly male, alert and conversant, laying in bed in the supine position and appears to be comfortable, appropriately dressed in hospital attire, no acute distress. HEENT: Atraumatic, normocephalic, PERRL, EOMI, oral mucosa appears somewhat dry, nasal septum is midline, nares are patent, midline healed surgical anterior chest incision. CARDIOVASCULAR: Regular rate and rhythm, normal S1 and S2, no murmur, rub, click no significant or appreciable JVD. RESPIRATORY: Crackles appreciated bilaterally, left >right; otherwise adequate airway entry in the upper lobes, no wheeze, rhonchi. ABDOMINAL: Soft, nontender, nondistended, confluent portable and red ecchymoses noted in the bilateral lower quadrants, bowel sounds appreciated throughout. EXTREMITIES: Knee-high sequential compression stockings in place, no clubbing, no cyanosis, no peripheral edema, significantly dry skin noted on lower extremities bilaterally. NEUROLOGICAL: No focal neurological deficits. PSYCHOLOGICAL: Mood and affect appropriate. LABORATORY DATA, IMAGING STUDIES, MICROBIOLOGY: Please see below. Modified barium cookie swallow on 04/14/2018 - no evidence of penetration or aspiration. MRI brain without contrast on 04/14/2018 - small acute right frontal and left parietal lobe infarctions. Small subacute right parietal lobe infarction. Small vessel ischemic disease. Mild volume loss. Chest x-ray, two-view, PA and lateral 04/16/2018 - status post aortic valve replacement. 4.5 cm pleural opacity at the right base, mild wedge compression fracture deformity T12. CT abdomen and pelvis without contrast on 04/18/2018 - colon opacified from previously administered oral contrast, no obstructive gastrointestinal lesion, mildly distended urinary bladder, dystrophic calcifications of the prostate, no hydronephrosis, small bilateral pleural effusions, gastrostomy tube. Brain MRI without contrast a without contrast on 04/18/2018 - mild atherosclerotic irregularity in the proximal posterior cerebral artery on the left, otherwise unremarkable. Portable chest x-ray on 04/19/2018 - no new infiltrate. Echocardiogram - mild left ventricular hypertrophy, grade 2 diastolic dysfunction, preserved left ventricular systolic function, bioprosthetic aortic valve, mild mitral and tricuspid insufficiency, moderate pulmonary hypertension. DVT prophylaxis ordered?: Warfarin 8 mg by mouth daily; on hold as patient's INR is supratherapeutic. ASSESSMENT AND PLAN: This is a 73-year-old male with nausea, vomiting, and abdominal pain likely secondary to constipation. PROBLEMS: 1. Fever, hypotension, and lactic acidosis: Blood cultures pending. Urinalysis and urine culture ordered. Chest x-ray reveals no acute infiltrate. Aggressive bowel regimen resulted in patient having a bowel movement this morning. Repeat lactic acid this morning was 2, down from 4. No intravenous fluid resuscitation at this time. 2. Nausea, vomiting, and abdominal pain: Likely secondary to constipation. General surgery consulted. Received one-time dose of Reglan 10 mg IV. Patient received significant bowel regimen yesterday, including magnesium citrate, mineral oil enema, and MiraLAX. Patient subsequently had a bowel movement and symptoms are somewhat improved. Patient may start with clear liquid diet and advanced as tolerated. Patient appears to have slow colonic transit if there is still oral contrast noted in his colon from the modified barium swallow from 04/14/2018. Patient remains on Protonix 40 mg IV every 12 hours. Continue with Carafate, Zofran, and Phenergan IV. Fecal occult blood test was negative. Speech evaluation was negative for penetration or aspiration. 3. 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 Was started on Coumadin at that time. Appeared to remain subtherapeutic until 04/17/2018. Patient was started on fenofibrate. Warfarin on hold as patient's INR is supratherapeutic at 4.50. Carotid ultrasound revealed bilateral 16-49% internal carotid artery narrowing. No intervention required at this time. Transthoracic echocardiogram with results as above. Brain MRA reveals mild atherosclerotic irregularity in the proximal posterior cerebral artery on the left. Neurology has been consulted. Started patient on aspirin 81 mg by mouth daily. Patient is less likely requiring 24-48 permissive hypertension. 4. Mild wedge compression fracture deformity, T12: Orthopedics consulted. Recommendations include weightbearing as tolerated. If patient does experience pain the suggestion is to repeat imaging and/or use a thoracolumbar orthopedic assist. 5. Coronary artery disease status post 6 vessel coronary artery bypass graft: Continue metoprolol 50 mg via G-tube twice daily. Restarted patient's aspirin 81 mg by mouth daily. Troponins have been <0.02. No evidence of acute ischemia on EKG. Patient currently remains in the intensive care unit and on telemetry. Cardiology consulted. 6. Postoperative atrial fibrillation: Patient was started on warfarin 8 mg at outlying facility. The patient remained subtherapeutic until 04/17/2018. Is currently supratherapeutic with INR 4.50. Will continue to hold Warfarin. Daily INR. 7. Severe aortic stenosis status post aortic valve replacement: Stable. Transthoracic echocardiogram obtained with results above. 8. Thrombocytopenia and anemia: Hematology/oncology consulted. Peripheral smear obtained revealed underlying chronic anemia. B12 level was above normal. Folate was within normal limits. Iron studies revealed anemia of chronic disease. No intervention needed at this time his thrombocytopenia is improving. Less likely secondary to immune thrombocytopenia this patient is also anemic without leukopenia. Anemia stable at this point. 9. Chronic kidney disease: Slight increase in creatinine to 1.8. Holding ramipril and Lasix at this time. 10. Hypertension: Blood pressure appears somewhat labile. Holding ramipril and Lasix. 11. Depression: Continue citalopram 10 mg daily. 12. Allergies: Continue loratadine 10 mg daily and Robitussin 5 mg four times daily. 13. Diabetes mellitus: Patient is nothing by mouth for the time being. Bolus insulin every 6 hours, fingersticks every 6 hours, and hypoglycemic protocol. DISPOSITION: Pending clinical improvement. Readmission to acute rehabilitative unit once medically stable. VS, I&O, 24H, Libby Vital Signs/I&O Vital Signs Date Time Temp Pulse Resp B/P (MAP) Pulse Ox O2 Delivery O2 Flow Rate FiO2 04/19/18 09:00 99 103/54 04/19/18 08:00 100.9 26 97 Nasal Cannula 2.0 I&O- Last 24 Hours up to 6 AM 04/19/18 06:00 Intake Total 530 ml Output Total 1140 ml Balance -610 ml Laboratory Data 24H LABS Laboratory Tests 2 04/18/18 13:54: Bedside Glucose (Misc Panel) 313H 04/18/18 14:04: Troponin I < 0.02 04/18/18 17:47: Bedside Glucose (Misc Panel) 280H 04/18/18 19:50: Troponin I < 0.02 04/19/18 00:10: Bedside Glucose (Misc Panel) 113H 04/19/18 02:30: Nucleated Red Blood Cells % (auto) 0.0, Prothrombin Time 43.8H, Prothromb Time International Ratio 4.50, Anion Gap 9, Glomerular Filtration Rate 39.6L, Lactic Acid Level 4.0*H, Blood Urea Nitrogen 43H, Creatinine 1.80H, Sodium Level 137, Potassium Level 4.2, Chloride Level 104, Carbon Dioxide Level 24, Calcium Level 8.3L, Troponin I 0.02 04/19/18 06:04: Bedside Glucose (Misc Panel) 151H 04/19/18 06:55: Lactic Acid Followup at 4 Hours 2.0 CBC/BMP Laboratory Tests 04/19/18 02:30 Red Blood Count 2.60 L, Mean Corpuscular Volume 103.8 H, Mean Corpuscular Hemoglobin 33.8 H, Mean Corpuscular Hemoglobin Concent 32.6, Red Cell Distribution Width 19.9 H, Calcium Level 8.3 L Microbiology Microbiology 04/19/18 Blood Culture, Received Pending 04/19/18 Blood Culture, Received Pending XU KEMP DO Apr 19, 2018 12:28
--- NOTE | 2018-04-19 13:10 | IPN ---
DATE: 04/19/2018 Mr. Zheng is feeling much better. He had bowel movement this morning and his nausea is completely gone, but he has not eaten since yesterday. Denies any chest pain or shortness of breath. Vital signs: This morning blood pressure 103/54, heart rate has been mostly in 80s and 90s. He is slightly febrile. Maximum temperature (Tmax) this morning was 100.9. Saturation 97% on liters of oxygen. Weight 76.5 kg. He is a alert and oriented appropriate. His jugular venous pulse (JVP) is not up. Lungs are clear. Good air movement. Heart exam reveals regular rhythm. I do not appreciate any gallop, rub or murmur. Abdomen is soft. I do not appreciate distinct tenderness, maybe slightly about his percutaneous endoscopic gastrostomy (PEG) tube. No guarding. Extremities are free of edema. Neurologically, he is intact. Laboratory almazan: As of this morning, potassium 4.2, BUN 43, creatinine 1.8 for GFR 40 and glucose 94. Troponin was 0.02. CBC: Hemoglobin 8 with hematocrit 27, platelet count 127,000. INR was high at 4.5 today. ASSESSMENT AND PLAN: Mr. Zheng is a 73-year-old man who underwent extensive cardiac surgery in February that involved aortic valve replacement and six- vessel bypass grafting that was complicated by numerous problems, including shock, recurrent pleural effusions. He was having repeated thoracenteses, had a PEG tube placed and had intraaortic balloon pump temporarily. He eventually reasonably well recovered and was transferred to our facility for rehab where he was doing very well, but when he started being fed he developed nausea. He developed nausea, vomiting and chest pain. I do think that the chest pain was purely due to the stress from vomiting. His symptoms pretty much resolved by today. There was no evolution ECG and his cardiac enzymes stayed normal. Echocardiogram revealed preserved LV systolic function and normal valvular function. I do not think that the presentation is cardiac in nature. Numerous other services are involved. I am going to sign off his care. He will follow with cardiology in [place] after discharge. Please contact me back if any assistance is desired. FABRICIO
--- NOTE | 2018-04-19 13:34 | IPNPDOC ---
Subjective General Date/Time Seen The patient was seen on 04/19/18 at 13:30. Subject Chief Complaint/History The patient is a 73-year-old male admitted with a reason for visit of Nstemi. Patient seen this morning. He feels much better today. He reports his nausea has resolved about last night. His gastrostomy tube has been clamped since last night. He has had 2 bowel movements this morning. Current Medications Current Medications Current Medications Acetaminophen (Tylenol Suspension) 650 mg Q4H PRN GT FEVER Last administered on 04/19/18at 02:09; Start 04/18/18 at 08:45 Aspirin (Aspirin Chewable) 81 mg DAILY PEG Last administered on 04/19/18at 09:46; Start 04/19/18 at 09:00 Aspirin (Ecotrin) 81 mg DAILY PO ; Start 04/19/18 at 09:00; Status Cancel Chlorhexidine Gluconate (Peridex Oral Rinse) 15 ml TID MT ; Start 04/18/18 at 09:00; Stop 04/18/18 at 18:17; Status DC Citalopram Hydrobromide (CeleXA) 10 mg DAILY PEG Last administered on 04/19/18at 09:46; Start 04/18/18 at 09:00 Citalopram Hydrobromide (CeleXA) 15 mg DAILY GT ; Start 04/18/18 at 09:00; Stop 04/18/18 at 09:07; Status DC Citalopram Hydrobromide (CeleXA) 15 mg DAILY PEG ; Start 04/19/18 at 09:00; Stop 04/19/18 at 09:00; Status DC Clonidine HCl (Catapres) 0.1 mg BID GT Last administered on 04/18/18at 10:02; Start 04/18/18 at 09:00; Stop 04/19/18 at 06:58; Status DC Dextrose (Dextrose 50%) 25 ml ASDIRECTED PRN IV SEE LABEL COMMENTS; Start 04/18/18 at 07:15 Enoxaparin Sodium (Lovenox) 75 mg Q12H SC ; Start 04/18/18 at 06:00; Stop 04/18/18 at 06:56; Status DC Fenofibrate (Tricor) 145 mg DAILY GT Last administered on 04/19/18at 09:46; Start 04/18/18 at 09:00 Fluoxetine HCl (PROzac) 40 mg DAILY GT ; Start 04/18/18 at 09:00; Stop 04/18/18 at 10:12; Status DC Furosemide (Lasix) 20 mg DAILY GT Last administered on 04/18/18at 10:02; Start 04/18/18 at 09:00; Stop 04/19/18 at 06:58; Status DC Glucagon (Glucagon) 1 mg ASDIRECTED PRN SC SEE LABEL COMMENTS; Start 04/18/18 at 07:15 Glucose (Glucose) 16 GM ASDIRECTED PRN PO SEE LABEL COMMENTS; Start 04/18/18 at 07:15 Guaifenesin (Robitussin) 5 ml QID PO Last administered on 04/19/18at 09:46; Start 04/18/18 at 09:00 Home Med (Med Rec Complete!) ASDIRECTED XX ; Start 04/18/18 at 07:45; Stop 04/18/18 at 07:45; Status DC Insulin Detemir (Levemir Insulin) 5 units QHS SC ; Start 04/18/18 at 21:00; Stop 04/18/18 at 21:00; Status DC Insulin Human Lispro (HumaLOG INSULIN) SEE PROTOCOL TABLE Q6H SC Last administered on 04/19/18at 06:08; Start 04/18/18 at 06:00 Labetalol HCl (Normodyne, Trandate) 20 mg STAT STAT IV Last administered on 04/18/18at 05:55; Start 04/18/18 at 05:36; Stop 04/18/18 at 05:37; Status DC Loratadine (Claritin) 10 mg DAILY GT Last administered on 04/19/18at 09:46; Start 04/18/18 at 09:00 Magnesium Citrate (Citrate Of Magnesia) 150 ml ONCE PRN GT if no results Last administered on 04/19/18at 01:23; Start 04/18/18 at 23:00; Stop 04/19/18 at 03:00; Status DC Metoprolol Tartrate (Lopressor) 50 mg BID GT ; Start 04/18/18 at 21:00 Metoprolol Tartrate (Lopressor) 50 mg TID PO Last administered on 04/18/18at 08:21; Start 04/18/18 at 09:00; Stop 04/18/18 at 09:00; Status DC Mineral Oil (Fleet Oil Retention Enema) 1 ea DAILYPRN PRN GA CONSTIPATION Last administered on 04/18/18at 16:49; Start 04/18/18 at 12:00 Morphine Sulfate (Morphine Sulfate Inj) 2 mg Q5MP PRN IV SEE LABEL COMMENTS; Start 04/18/18 at 05:30 Ondansetron HCl (ZOFRAN INJection) 4 mg Q4H IV Last administered on 04/18/18at 21:48; Start 04/18/18 at 06:00; Stop 04/19/18 at 01:22; Status DC Ondansetron HCl (ZOFRAN INJection) 4 mg Q4H PRN IV NAUSEA; Start 04/19/18 at 01:30 Pantoprazole Sodium (Protonix) 40 mg Q12H IV Last administered on 04/19/18at 09:45; Start 04/18/18 at 09:00 Pantoprazole Sodium (Protonix) 40 mg Q24H IV ; Start 04/18/18 at 08:00; Stop 04/18/18 at 08:13; Status DC Promethazine HCl (PHENERGAN INJection) 25 mg Q6HP PRN IV NAUSEA Last administered on 04/18/18at 07:37; Start 04/18/18 at 07:15 Quetiapine Fumarate (SEROquel) 12.5 mg QHS PRN GT SLEEP; Start 04/18/18 at 08:45; Stop 04/18/18 at 09:07; Status DC Ramipril (Altace) 1.25 mg QHS GT Last administered on 04/18/18at 20:30; Start 04/18/18 at 21:00; Stop 04/19/18 at 06:58; Status DC Ranitidine HCl (Zantac) 150 mg QHS GT ; Start 04/18/18 at 21:00; Stop 04/18/18 at 21:00; Status DC Sucralfate (Carafate Suspension) 1 gm Q6H GT Last administered on 04/19/18at 06:08; Start 04/18/18 at 12:00 Sucralfate (Carafate Suspension) 1 gm Q6H PO ; Start 04/18/18 at 06:00; Stop 04/18/18 at 08:38; Status DC Warfarin Sodium (Coumadin) 8 mg DAILY@17 PO ; Start 04/19/18 at 17:00; Stop 04/19/18 at 17:00; Status DC Allergies Coded Allergies: [place] (Verified Allergy, Severe, ANAPHYLAXIS, 11/09/14) Penicillins (Verified Allergy, Severe, ANAPHYLAXIS, 08/04/14) Metformin (Verified Allergy, Unknown, 02/16/18) Statins (Verified Allergy, Unknown, 02/16/18) Duloxetine (Unverified Adverse Reaction, Mild, N/V, 04/16/18) Objective Physical Examination Examination GENERAL APPEARANCE: Looks comfortable. SKIN: Warm and moist. ABDOMEN: Abdomen is mild obese, nondistended, soft, gastrostomy tube site without any infection. Nontender on palpation.. Vital Signs Vital Signs Date Time Temp Pulse Resp B/P (MAP) Pulse Ox O2 Delivery O2 Flow Rate FiO2 04/19/18 13:00 97 100/52 (68) 04/19/18 12:00 100.6 22 97 Nasal Cannula 2.0 I&Os I&O- Last 24 Hours up to 6 AM 04/19/18 06:00 Intake Total 530 ml Output Total 1140 ml Balance -610 ml Laboratory Data Labs 24H Laboratory Tests 2 04/18/18 13:54: Bedside Glucose (Misc Panel) 313H 04/18/18 14:04: Troponin I < 0.02 04/18/18 17:47: Bedside Glucose (Misc Panel) 280H 04/18/18 19:50: Troponin I < 0.02 04/19/18 00:10: Bedside Glucose (Misc Panel) 113H 04/19/18 02:30: Nucleated Red Blood Cells % (auto) 0.0, Prothrombin Time 43.8H, Prothromb Time International Ratio 4.50, Anion Gap 9, Glomerular Filtration Rate 39.6L, Lactic Acid Level 4.0*H, Blood Urea Nitrogen 43H, Creatinine 1.80H, Sodium Level 137, Potassium Level 4.2, Chloride Level 104, Carbon Dioxide Level 24, Calcium Level 8.3L, Troponin I 0.02 04/19/18 06:04: Bedside Glucose (Misc Panel) 151H 04/19/18 06:55: Lactic Acid Followup at 4 Hours 2.0 04/19/18 13:22: Bedside Glucose (Misc Panel) 201H CBC/BMP Laboratory Tests 04/19/18 02:30 Red Blood Count 2.60 L, Mean Corpuscular Volume 103.8 H, Mean Corpuscular Hemoglobin 33.8 H, Mean Corpuscular Hemoglobin Concent 32.6, Red Cell Distributi on Width 19.9 H, Calcium Level 8.3 L Microbiology Microbiology 04/19/18 Blood Culture, Received Pending 04/19/18 Blood Culture, Received Pending Impression Nausea Constipation He has 2 bowel movements today. He has already been improving urine prior to bowel movement. I did not think that the constipation is causing the nausea. Still unexplained Y he had some exacerbation of the nausea. He could have some element of gastroparesis. I think we can advance his diet. He tells me he takes MiraLAX every night prior to him getting sick. He has a long-standing history of constipation. If he gets nauseated, I told him that we can vent and the gastrostomy tube and allow the nausea or gastric distention to pass. At this point I don't think he has any surgical issues left. I'll sign off. Plan / VTE VTE Prophylaxis Ordered?: Yes KRAIG PACHECO MD Apr 19, 2018 13:33
[2018-04-19] MEDS: SENOKOT S TAB PO SCH (14:51)
[2018-04-19] MEDS ORDERED: WARFARIN SOD 4 MG TAB PO SCH (17:00)
[2018-04-19] MEDS: CEFEPIME HCL 2 GM in D5W MINI-BAG PLUS 50 ML IV SCH (17:53)
[2018-04-19] MEDS ORDERED: NS 1,000 ML IV SCH (23:00)
[2018-04-19] MEDS ORDERED: NS 500 ML IV ONE (23:00)
[2018-04-20] VITALS (20 sets, daily range): BP systolic 92–135; BP diastolic 49–79
[2018-04-20 04:53] LABS: HEMATOCRIT 23.5 % (42.0-52.0); HEMOGLOBIN 7.5 g/dl (13.5-17.5); MEAN CORPUSCULAR HEMOGLOBIN 32.8 pg (27.0-33.0); MEAN CORPUSCULAR HGB CONC 31.9 g/dl (32.0-36.5); MEAN CORPUSCULAR VOLUME 102.6 fl (80.0-96.0); RED BLOOD COUNT 2.29 10^6/uL (4.30-6.10); WHITE BLOOD COUNT 10.6 10^3/uL (4.0-10.0)
[2018-04-20 04:54] LABS: CALCIUM LEVEL 8.1 MG/DL (8.8-10.2); CREATININE FOR GFR 2.3 MG/DL (0.70-1.30); GLOMERULAR FILTRATION RATE 29.8 (>42); POTASSIUM SERUM 4.7 MEQ/L (3.5-5.1)
[2018-04-20 05:04] LABS: PLATELET COUNT, AUTOMATED 98 10^3/uL (150-450); PROTHROMBIN TIME 89.8 SECONDS (12.1-14.4)
[2018-04-20 05:07] LABS: INR 11.09
[2018-04-20 05:41] LABS: INR 11.59
[2018-04-20 05:43] LABS: PARTIAL THROMBOPLASTIN TIME 85.1 SECONDS (25.4-37.6); PROTHROMBIN TIME 92.7 SECONDS (12.1-14.4)
[2018-04-20 05:45] LABS: D-DIMER QUANT 3528.61 ng/ml (<500)
[2018-04-20 05:49] LABS: INR 11.54
[2018-04-20] MEDS: CEFEPIME HCL 2 GM in D5W MINI-BAG PLUS 50 ML IV SCH ×2 (05:55→17:12)
[2018-04-20] MEDS: SUCRALFATE SUSP 1GM/10ML UD GT SCH (05:55)
[2018-04-20 06:04] LABS: ALBUMIN 1.9 GM/DL (3.2-5.2); BILIRUBIN,DIRECT 0.4 MG/DL (0.0-0.2); BILIRUBIN,TOTAL 0.6 MG/DL (0.2-1.0); TOTAL PROTEIN 6.8 GM/DL (6.4-8.2)
[2018-04-20 06:23] LABS: MAGNESIUM LEVEL 2.3 MG/DL (1.8-2.4)
[2018-04-20] MEDS ORDERED: VANCOMYCIN HCL 1,000 MG, VIAL MATE ADAPTER 1 EACH in D5W 250 ML IV ONE (07:15)
--- NOTE | 2018-04-20 07:34 | REPVR ---
EXAM: CT Chest Without Contrast EXAM DATE/TIME: 04/20/2018 6:40 AM CLINICAL HISTORY: 73 years old, male; Signs and symptoms; Other: Potential infection; Additional info: R/O lung infection TECHNIQUE: Axial computed tomography images of the chest without intravenous contrast. All CT scans at this facility use at least one of these dose optimization techniques: automated exposure control; mA and/or kV adjustment per patient size (includes targeted exams where dose is matched to clinical indication); or iterative reconstruction. Coronal and sagittal reformatted images were created and reviewed. COMPARISON: CT ANGIO CHEST 02/17/2018 12:37 AM FINDINGS: Limitations: Evaluation is somewhat limited by lack of IV contrast. Lungs: Dense infiltrate involves most of the left lower lobe. Lesser patchy infiltrates are present in the right upper and lower lobes. A 5 mm nodule in the left lower lobe appears stable (image [id number]). Previous left upper lobe nodule is presently not evident. A 5 mm nodule is now present in the right middle lobe (image [id number]). Pleural space: There are small bilateral pleural effusions. No pneumothorax is identified. Heart: Coronary artery calcifications are again present. There has been interval replacement of the aortic valve. Aorta: The thoracic aorta is nonaneurysmal. Atherosclerotic vascular calcifications are again present. Lymph nodes: There are densely calcified mediastinal and right hilar lymph nodes. There is mild new subcarinal lymphadenopathy, measuring up to 1.6 cm short axis. Bones/joints: There has been interval median sternotomy. Minimal callus formation is present. Degenerative changes again involve the spine. There are new chronic appearing fractures of the right second through sixth and the left fourth through seventh ribs anteriorly. There is also mild new anterior compression of the T12 vertebral body, which appears recent. Soft tissues: Unremarkable. Upper abdomen: Dedicated abdominal CT has been performed, and findings below the diaphragm will be reported separately. IMPRESSION: 1. Dense left lower lobe infiltrate with lesser patchy infiltrates in the right upper and lower lobes, suggesting multifocal pneumonia. 2. Small bilateral pleural effusions. 3. 5 mm left lower lobe nodule, stable since 02/17/18, with a newly apparent 5 mm right middle lobe nodule. For patients at low risk (minimal or absent history of smoking and of other known risk factors), no routine follow-up is indicated. For patients at high risk (history of smoking or of other known risk factors), consider optional CT at 12 months. (Ger et al., Fleischner Society, 2017). 4. Mild new subcarinal lymphadenopathy, could be reactive. Attention to this on followup. 5. Interval median sternotomy and aortic valve replacement. 6. Multiple new, but chronic appearing bilateral rib fractures. 7. Mild anterior compression of the T12 vertebral body, appears recent. Electronically signed by: Hari Chamberlain On 04/20/2018 07:34:31 AM
--- NOTE | 2018-04-20 07:42 | REPVR ---
EXAM: CT Abdomen and Pelvis Without Contrast EXAM DATE/TIME: 04/20/2018 6:40 AM CLINICAL HISTORY: 73 years old, male; Signs and symptoms; Other: Potential infection; Additional info: R/O abdominal infection TECHNIQUE: Axial computed tomography images of the abdomen and pelvis without contrast. All CT scans at this facility use at least one of these dose optimization techniques: automated exposure control; mA and/or kV adjustment per patient size (includes targeted exams where dose is matched to clinical indication); or iterative reconstruction. Coronal and sagittal reformatted images were created and reviewed. COMPARISON: CT ABD PELVIS W/O CONTRAST 04/18/2018 8:31 AM FINDINGS: Limitations: Evaluation is somewhat limited by lack of IV contrast. Tubes, catheters and devices: A PEG tube is again present. Lower thorax: See separate chest CT report for findings above the diaphragm. ABDOMEN: Liver: The liver contains a calcified granuloma. It appears otherwise grossly unremarkable. Gallbladder and bile ducts: No gallstones are evident, but ultrasound would be more sensitive. No gross biliary ductal dilatation. Pancreas: Grossly unremarkable. Spleen: Grossly unremarkable. Adrenals: Grossly unremarkable. Kidneys and ureters: The left kidney again contains a punctate nonobstructing stone. It appears otherwise grossly unremarkable. There is a stable 2.0 cm cystic lesion in the right kidney anteriorly with thin mural calcification. Kidney appears otherwise grossly unremarkable. There is no hydronephrosis or ureteral calculus on either side. Stomach and bowel: The small bowel is not significantly distended to suggest obstruction, but contrast has not yet reached the large bowel. The large bowel is grossly unremarkable in appearance. Appendix: The appendix appears normal. PELVIS: Bladder: Unremarkable as visualized. Reproductive: The prostate again contains coarse calcifications. ABDOMEN and PELVIS: Intraperitoneal space: Normal. No free air. No significant fluid collection. Bones/joints: Degenerative changes again involve the spine, hips and sacroiliac joints. There is similar mild, recent appearing compression of the T12 vertebral body superiorly. Soft tissues: A small fat-containing umbilical hernia is again present. Vasculature: The abdominal aorta is nonaneurysmal. Atherosclerotic vascular calcifications are again present. Lymph nodes: No gross pathologic lymphadenopathy. IMPRESSION: No gross acute abnormality, aside from mild recent appearing compression of the T12 vertebral body, which is similar to 04/18/18. Nonurgent findings are similar as above. Electronically signed by: Hari Chamberlain On 04/20/2018 07:42:10 AM
[2018-04-20 07:45] LABS: BASOPHILS 1 % (0-4); LYMPHOCYTES 17 % (16-52); MONOCYTES 8 % (0-8); NEUTROPHILS 52 % (35-75)
[2018-04-20 07:47] LABS: ANISOCYTOSIS 1+; PLATELET ESTIMATE DECREASED (NORMAL)
[2018-04-20 07:48] LABS: DOHLE BODIES 1+; HYPOCHROMASIA 1+; POIKILOCYTOSIS 1+; POLYCHROMASIA 1+
[2018-04-20] MEDS ORDERED: PHYTONADIONE 2.5 MG **1/2 TAB PO ONE (08:00)
[2018-04-20] MEDS: PANTOPRAZOLE 40MG INJ (PROTONIX) (C9113) IV SCH (08:02)
[2018-04-20] MEDS: CitaloPRAM (CeleXA) 10 MG TABLET PEG SCH (08:02)
[2018-04-20] MEDS: HumaLOG INSULIN (NovoLOG) PER UNIT SC SCH ×4 (08:02→20:42)
[2018-04-20] MEDS: LORATADINE 10 MG TAB GT SCH (08:02)
[2018-04-20] MEDS: FENOFIBRATE 145 MG TAB (TRICOR) GT SCH (08:02)
[2018-04-20] MEDS: SENOKOT S TAB PO SCH (08:03)
[2018-04-20] MEDS: guaiFENesin SYRUP 200 MG/10 ML UDC PO SCH ×4 (08:03→20:41)
[2018-04-20] MEDS ORDERED: PHYTONADIONE 5 MG TAB PO ONE (08:15)
[2018-04-20] MEDS: ASPIRIN 81 MG CHEW TABLET PEG SCH (08:44)
[2018-04-20] MEDS: METOPROLOL TART 50 MG TAB GT SCH ×2 (08:45→20:42)
--- NOTE | 2018-04-20 09:20 | PHACANCOPD ---
PHARMACY VANCOMYCIN DOSING Pt Demographics Demographics Patient Age:73 , Weight:76.700 , Gender: male Adjusted Body Weight Date: 04/20/18, Adjusted Body Weight: [NA] Kg Events Past 24 Hours Events Past 24 Hours: YES: Change in CrCl, Elevation in WBC; NO: Dialysis, Diuretic Therapy, Fever, Pending Diagnostics, Pending Procedures, Other Vancomycin Vancomycin indication: HCAP Vancomycin Target Ranges: 10-20 mcg/ml Vancomycin Load Y/N: Yes Load Dose Date Time Vancomycin Load Dose: 1000MG Date: 04/20 Time: ~08:00 Vancomycin Dose Date: 04/20/18. Current Vancomycin Dose: [1g IV q24h @11] Intermittent Dosing?: No Labs Labs Item Value Date Time Creatinine 2.30 MG/DL H 04/20/18 042 Creatinine 1.80 MG/DL H 04/19/18 0230 White Blood Count 6.7 10^3/uL 04/19/18 0230 White Blood Count 10.6 10^3/uL H 04/20/18 0421 Micro Microbiology 04/19/18 Blood Culture, Received Pending 04/19/18 Blood Culture - Preliminary, Resulted 04/20/18 MRSA Screen, Received Pending Creatinine Clearance Date:04/20/18. Creatinine Clearance: [~29 ml/min]. Pending Labs Random vancomycin level ordered 04/21 in AM Assessment and Plan Maintaining Current Dose?: No Reason for dose change: Change in serum Cr Pharmacist Note Pharmacist Note Date: 04/20/18. Pharmacist note: pt has been started on Vancomycin for HCAP. Chest CT suggests multifocal pneumonia. Pt was also started on Cefepime last evening. He has not been on vancomycin at our facility in the past, nor does he have an apparent Hx of MRSA. Blood cultures 1/2 is preliminary positive for gram + cocci cl, MRSA screen is pending. He was transferred from [facility] a few days ago. SCr is trending up, he received vancomycin 1g at ~08:00 this morning and I will start 1g q24h dosing ~3 hours later this morning. I have a random scheduled for tomorrow morning. We will continue to monitor and follow up with his level tomorrow. Rashard Mahajan Pharm.D. Apr 20, 2018 09:20
--- NOTE | 2018-04-20 12:11 | CR ---
DATE OF CONSULTATION: 04/19/2018 REFERRING PHYSICIAN: Dr. Romulo Duke HISTORY OF PRESENT ILLNESS: Newton Bernard is a 73-year-old man who was admitted at [facility] in February 2018 and had six vessel coronary artery bypass and aortic valve replacement with bioprosthetic valve. He was in cardiac rehabilitation at [facility] since 04/11/2018. According to the patient's , he has been appearing off since his heart surgery in February 2018. He had reactions to different medications when he was admitted there. At some point, he was seen by psychiatry who recommended to take him off a couple of medications. There was an episode of confusion and agitation when he was admitted at [facility]. He had another episode of nausea, vomiting, chest discomfort, and agitation on 09/14/2017. He complained of nausea throughout the night and in the morning felt chest discomfort. He felt heaviness on his chest. His chest pain improved with nitroglycerin. His systolic blood pressure was 180. He was given oxygen and morphine. He had nausea, vomiting, diaphoresis. Patient's international normalized ratio (INR) was running between 1.4 - 1.7 between 04/12/2018 - . He had MRI scan of his brain on 04/14/2018, which showed small acute left parietal and frontal small ischemic strokes. The patient also felt blurred vision on right side. He also had severe headache. He denies any neck pain. He has off-and-on back pain. He has trouble sleeping at night. Over last few days, he had noted that his right side was slightly weaker than left side. He denies any dysphagia, dysarthria, diplopia or urinary incontinence. He denies any falls or loss of consciousness. PAST MEDICAL HISTORY: 1. Congestive heart failure. 2. History of squamous cell carcinoma. 3. Coronary artery disease status post myocardial infarction (NM) and six vessel coronary artery bypass graft. 4. History of cardiopulmonary arrest in February 2018. 5. Type 2 diabetes. 6. Postoperative cardiogenic shock. 7. Postoperative atrial fibrillation. 8. Depression. 9. Aortic valve replacement with a bioprosthetic bovine valve. 10. Percutaneous Endo gastrostomy tube. 11. Skin biopsies. SOCIAL HISTORY: Patient is . There are no reports of smoking currently. FAMILY HISTORY: Father had coronary disease. Mother had diabetes. REVIEW OF SYSTEMS: All systems were reviewed and found to be noncontributory except as mentioned history present illness. HOME MEDICATIONS; - aspirin 81 mg p.o. daily - amlodipine 10 mg by mouth daily - Celexa 20 mg by mouth daily - clonidine 0.1 mg by mouth twice a day - fenofibrate 145 mg daily - Colace 10 mL gastrostomy (G) tube twice a day - Epogen 0.3 mL subcutaneous three times a week - ferrous gluconate 35 mg G-tube twice a day - folic acid 1 mg daily - Lasix 20 mg by mouth in the morning - hydralazine 25 mg every 8 hours - insulin Lantus 5 units subcutaneous daily - insulin Novolin sliding scale - Claritin 10 mg daily - metoprolol 50 mg twice a day - ramipril 1.25 mg daily - Zantac 10 mL twice a day - Coumadin 8 mg daily - sucralfate 1 gram daily - nitroglycerin as needed - quetiapine 12.5 mg nightly as needed ALLERGIES: PENICILLIN, METFORMIN, STATINS, DULOXETINE. PHYSICAL EXAMINATION: Temperature 99, blood pressure 103/54, respiratory rate 26, pulse 95. Heart: Regular rate rhythm. Lungs: Clear to auscultation. Abdomen: Soft, nontender, nondistended. No pedal edema. No musculoskeletal abnormalities. No rash. No signs of meningeal irritation. No tremor. The patient is awake, alert, oriented to place, person and time. Normal speech comprehension and repetition. Extraocular muscles are intact. No facial weakness. Tongue and uvula are midline. 5/5 strength in all four extremities. Deep tendon flexes are 1+ throughout. He has decreased cold pinprick vibration sensation in his feet. Gait could not be tested. DIAGNOSTIC STUDIES: His MRI scan of brain showed small acute left parietal and right frontal ischemic strokes. MRA brain showed mild atherosclerosis of posterior cerebral arteries. Carotid ultrasound showed 15-49% bilateral carotid stenosis. His INR range between 1.4 - 1.7 between 04/12/2018 - . His current INR is 4.5. His Coumadin is currently on hold. ASSESSMENT: 1. Small left parietal and right frontal acute ischemic strokes, likely embolic. 2. Paroxysmal atrial fibrillation. 3. Six vessel coronary artery bypass and aortic bioprosthetic valve. 4. Mild-moderate bilateral carotid artery stenosis and posterior cerebral artery atherosclerosis. PLAN: 1. Aspirin 81 mg by mouth daily. 2. Continue Coumadin with target INR 2-3. His Coumadin is currently on hold due to his high capital INR. It was running low before. 3. Followup cardiology and follow with our office in 1 month after hospital discharge.
--- NOTE | 2018-04-20 12:45 | IPNPDOC ---
Date Seen The patient was seen on 04/20/18. Progress Note SUBJECTIVE: Patient tells me that he is feeling better today he denies any nausea or vomiting or any pain whatsoever. He complains of cough which is new within the last couple of days OBJECTIVE PHYSICAL EXAMINATION: VITAL SIGNS: Please see below. GENERAL: Frail elderly man sitting up in bed he is awake alert and asked appropriate questions she does not appear to be in any acute distress HEENT: Cranial nerves appear to be grossly intact he has moist mucous membranes CARDIOVASCULAR: S1-S2 regular she is not tachycardic at the time of my exam. RESPIRATORY: Clear to auscultation bilaterally there transmitted upper airway sounds some's possibly some scattered rales at the bases bilaterally he gives a poor effort. ABDOMINAL: Bowel sounds are present abdomen soft and nontender today EXTREMITIES: No clubbing cyanosis or edema LABORATORY DATA, IMAGING STUDIES, MICROBIOLOGY: Please see below. Echocardiogram: 1. Study is of acceptable technical quality. 2. Normal left ventricular (LV) size with mild left ventricular hypertrophy, overall preserved left ventricle systolic function and grade 2 diastolic dysfunction. 3. Normally functioning bioprosthesis in aortic position. 4. Mild mitral and tricuspid insufficiency. 5. Normal central venous pressure. 6. Suggestive of moderate pulmonary hypertension.. DVT prophylaxis ordered?: Supratherapeutic INR ASSESSMENT AND PLAN: This is a 73-year-old male with recent CABG and aortic valve replacement, complicated by renal failure respiratory failure who developed nausea and vomiting while on acute rehabilitation PROBLEMS: 1. Fever, hypotension, and lactic acidosis: Blood cultures pending. My suspicion is for aspiration pneumonia related to his episodes of vomiting. Urinalysis is quite benign. We'll have this swallow evaluation completed transition him to more digestible diet at this time. Lactic acid is normal at this time. We did provide some gentle hydration overnight he is continued on ceftaroline and cefepime today 2. Nausea, vomiting, and abdominal pain: Likely secondary to constipation. Appears of resolved at this time with having a bowel movement we'll continue him on a standing bowel regimen and monitor closely 3. 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 Was started on Coumadin at that time CVA likely related to this. Otherwise stroke workup has thus far been negative. Aspirin and Coumadin are currently on hold given his low platelets and elevated INR. He is on fenofibrate he has a statin allergy. His blood pressures were well-controlled in fact it is slightly low related to problem 1 4. Mild wedge compression fracture deformity, T12: Orthopedics consulted. Recommendations include weightbearing as tolerated. If patient does experience pain the suggestion is to repeat imaging and/or use a thoracolumbar orthopedic assist. Continue with rehabilitation when able 5. Coronary artery disease status post 6 vessel coronary artery bypass graft: Continue metoprolol 50 mg with holding parameters via G-tube continue fenofibrate aspirin on hold as outlined above. Cardiology consult appreciated did not feel symptoms are related to acute coronary issues 6. Postoperative atrial fibrillation: As outlined above INR supratherapeutic with provide a one-time dose of 2-1/2 mg of vitamin K monitors INR daily rate controlled with metoprolol 7. Severe aortic stenosis status post aortic valve replacement: Stable. Transthoracic echocardiogram obtained with results above. 8. Thrombocytopenia and anemia: Hematology/oncology consulted. He'll receive 1 unit of PRBCs we will have to monitor his bone status closely, platelets appear to be fairly stable over the last 4 days we'll continue to monitor daily I'm less suspicious for DIC at this point and suspect that is around is related to his significantly elevated INR. I'll check an occult stool for blood a peripheral smear has been ordered I feel hemolytic anemia is less likely given his normal potassium and T bili. We'll continue to monitor closely 9. Acute on chronic Chronic kidney disease: Slight increase in creatinine again today possibly related to sepsis he did have an elevated lactic acid he may have some prerenal azotemia with providing him with blood cautiously watching her volume status and renal function should he continue to worsen tomorrow would consider inpatient nephrology consultation 10. Hypertension: Blood pressure appears somewhat labile. Holding ramipril and Lasix. Premature placed on metoprolol as well as outlined above 11. Depression: Continue citalopram 10 mg daily. 12. Allergies: Continue loratadine 10 mg daily and Robitussin 5 mg four times daily. 13. Diabetes mellitus: hypoglycemic protocol. An insulin sliding scale DISPOSITION: Pending clinical improvement. Given his multitude of problems and, complicated hospital course as his prognosis is currently guarded. I did have a lengthy discussion with the patient's today who explained to be her frustrations with [facility] care he is [place] at [facility] [place] greater than 2 months and prior to his initial cardiac arrest I did my best answer questions to her satisfaction I explained to her current state of his care DISPOSITION: . VS, I&O, 24H, Fishbone Vital Signs/I&O Vital Signs Date Time Temp Pulse Resp B/P (MAP) Pulse Ox O2 Delivery O2 Flow Rate FiO2 04/20/18 11:00 95 135/79 (97) 04/20/18 08:00 99.3 18 97 Nasal Cannula 2.0 I&O- Last 24 Hours up to 6 AM 04/20/18 06:00 Intake Total 2040 ml Output Total 500 ml Balance 1540 ml Laboratory Data 24H LABS Laboratory Tests 2 04/19/18 13:22: Bedside Glucose (Misc Panel) 201H 04/19/18 16:55: Bedside Glucose (Misc Panel) 224H 04/19/18 21:14: Bedside Glucose (Misc Panel) 221H 04/20/18 04:15: Urine Color YELLOW, Urine Appearance CLEAR, Urine pH 5.0, Urine Specific Edmondson 1.015, Urine Protein 2+H, Urine Glucose (UA) 1+H, Urine Ketones NEGATIVE, Urine Blood NEGATIVE, Urine Nitrite NEGATIVE, Urine Bilirubin NEGATIVE, Urine Urobilinogen 0.2, Urine Leukocyte Esterase NEGATIVE, Urine WBC (Auto) 2, Urine RBC (Auto) 2, Urine Hyaline Casts (Auto) 1, Urine Bacteria (Auto) NEGATIVE, Urine Squamous Epithelial Cells 0, Urine Transitional Epithelial Cells <1, Urine Mucus (Auto) SMALL, Urine Sperm (Auto) 04/20/18 04:21: Reticulocyte # (auto) 100.8H, Nucleated Red Blood Cells % (auto) 0.0, Neutrophils 52, Band Neutrophils 22H, Lymphocytes (Manual) 17, Monocytes (Manual) 8, Basophils (Manual) 1, Polychromasia 1+, Hypochromasia 1+, Poikilocytosis 1+, Anisocytosis 1+, Macrocytosis 1+, Dohle Bodies 1+, Platelet Estimate DECREASED, Immature Platelet Fraction 1.3, Percent Reticulocyte Count 4.4H, Reticulocyte Hemoglobin Equivalent 33.5, Prothrombin Time 89.8H, Prothromb Time International Ratio 11.09*H, Anion Gap 7L, Glomerular Filtration Rate 29.8L, Blood Urea Nitrogen 51H, Creatinine 2.30H, Sodium Level 138, Potassium Level 4.7, Chloride Level 107, Carbon Dioxide Level 24, Calcium Level 8.1L 04/20/18 05:17: Prothrombin Time 92.7H, Prothromb Time International Ratio 11.54*H, Activated Partial Thromboplast Time 85.1H, Fibrinogen 613H, D-Dimer, Quantitative 3528.61H, Magnesium Level 2.3, Aspartate Amino Transf (AST/SGOT) 12, Alanine Aminotransferase (ALT/SGPT) 13, Alkaline Phosphatase 83, Total Bilirubin 0.6, Direct Bilirubin 0.4H, Total Protein 6.8#, Albumin 1.9#L, Albumin/Globulin Ratio 0.39L 04/20/18 06:17: Differential Slide Review Report, Peripheral Blood Smear Path Consult PERIPHERAL SMEAR 04/20/18 07:03: Lactic Acid Level 2.6*H 04/20/18 11:19: Lactic Acid Followup at 4 Hours 2.0 CBC/BMP Laboratory Tests 04/20/18 04:21 Red Blood Count 2.29 L, Mean Corpuscular Volume 102.6 H, Mean Corpuscular Hemoglobin 32.8, Mean Corpuscular Hemoglobin Concent 31.9 L, Red Cell Distribution Width 20.6 H, Calcium Level 8.1 L Microbiology Microbiology 04/20/18 Blood Culture, Received Pending 04/19/18 Blood Culture - Preliminary, Resulted No growth after 24 hours . All specim... 04/19/18 Blood Culture - Preliminary, Resulted 04/20/18 MRSA Screen, Received Pending ABHILASH NUÑEZ MD Apr 20, 2018 12:45
[2018-04-20] MEDS: VANCOMYCIN HCL 1,000 MG, VIAL MATE ADAPTER 1 EACH in D5W 250 ML IV SCH (15:45)
[2018-04-20] MEDS: ACETYLCYSTEINE 10% 30 ML VIAL INH SCH (20:00)
[2018-04-21] VITALS (8 sets, daily range): BP systolic 104–142; BP diastolic 54–72
[2018-04-21 04:39] LABS: HEMATOCRIT 24.2 % (42.0-52.0); HEMOGLOBIN 8.1 g/dl (13.5-17.5); MEAN CORPUSCULAR HEMOGLOBIN 33.2 pg (27.0-33.0); MEAN CORPUSCULAR HGB CONC 33.5 g/dl (32.0-36.5); MEAN CORPUSCULAR VOLUME 99.2 fl (80.0-96.0); RED BLOOD COUNT 2.44 10^6/uL (4.30-6.10); WHITE BLOOD COUNT 11.6 10^3/uL (4.0-10.0)
[2018-04-21 04:40] LABS: PLATELET COUNT, AUTOMATED 69 10^3/uL (150-450)
[2018-04-21 04:48] LABS: INR 3.31; PROTHROMBIN TIME 34.4 SECONDS (12.1-14.4)
[2018-04-21 05:04] LABS: CREATININE FOR GFR 1.9 MG/DL (0.70-1.30); GLOMERULAR FILTRATION RATE 37.2 (>42); POTASSIUM SERUM 3.9 MEQ/L (3.5-5.1); VANCOMYCIN RANDOM 17.5 UG/ML
[2018-04-21] MEDS: CEFEPIME HCL 2 GM in D5W MINI-BAG PLUS 50 ML IV SCH ×2 (05:15→18:31)
--- NOTE | 2018-04-21 05:23 | PHACANCOPD ---
PHARMACY VANCOMYCIN DOSING Pt Demographics Demographics Patient Age:73 , Weight:76.700 , Gender: male Adjusted Body Weight Date: 04/20/18, Adjusted Body Weight: [NA] Kg Vancomycin Vancomycin indication: HCAP Vancomycin Target Ranges: 10-20 mcg/ml Vancomycin Load Y/N: Yes Load Dose Date Time Vancomycin Load Dose: 1000MG Date: 04/20 Time: ~08:00 Vancomycin Dose Date: 04/20/18. Current Vancomycin Dose: [1g IV q24h @11] Intermittent Dosing?: No Labs Micro Microbiology 04/20/18 Blood Culture, Received Pending 04/19/18 Blood Culture - Preliminary, Resulted No growth after 24 hours . All specim... 04/19/18 Blood Culture - Preliminary, Resulted 04/20/18 MRSA Screen, Received Pending Creatinine Clearance Date:04/20/18. Creatinine Clearance: [~29 ml/min]. Pending Labs Random vancomycin level ordered 04/21 in AM Assessment and Plan Maintaining Current Dose?: Yes Reason for dose change: No Dose Change Pharmacist Note Pharmacist Note Date: 04/21/18. Pharmacist note:Vancomycin level drawn @4:19 this morning reported as 17.5-will maintain current regimen of Vancomycin 1 gram iv [id number] at this time-will continue to follow Date: 04/20/18. Pharmacist note: pt has been started on Vancomycin for HCAP. Chest CT suggests multifocal pneumonia. Pt was also started on Cefepime last evening. He has not been on vancomycin at our facility in the past, nor does he have an apparent Hx of MRSA. Blood cultures 1/2 is preliminary positive for gram + cocci cl, MRSA screen is pending. He was transferred from [facility] a few days ago. SCr is trending up, he received vancomycin 1g at ~08:00 this morning and I will start 1g q24h dosing ~3 hours later this morning. I have a random scheduled for tomorrow morning. We will continue to monitor and follow up with his level tomorrow. KRISTYN AKHTAR PHARMACY Apr 21, 2018 05:23
[2018-04-21] MEDS: ACETYLCYSTEINE 10% 30 ML VIAL INH SCH ×2 (08:00→19:53)
[2018-04-21] MEDS: PANTOPRAZOLE 40MG INJ (PROTONIX) (C9113) IV SCH (08:30)
[2018-04-21] MEDS: ASPIRIN 81 MG CHEW TABLET PEG SCH (08:30)
[2018-04-21] MEDS: HumaLOG INSULIN (NovoLOG) PER UNIT SC SCH ×4 (08:30→20:33)
[2018-04-21] MEDS: FENOFIBRATE 145 MG TAB (TRICOR) GT SCH (08:31)
[2018-04-21] MEDS: CitaloPRAM (CeleXA) 10 MG TABLET PEG SCH (08:31)
[2018-04-21] MEDS: guaiFENesin SYRUP 200 MG/10 ML UDC PO SCH ×4 (08:31→20:33)
[2018-04-21] MEDS: LORATADINE 10 MG TAB GT SCH (08:31)
[2018-04-21] MEDS: SENOKOT S TAB PO SCH (08:32)
[2018-04-21] MEDS: METOPROLOL TART 50 MG TAB GT SCH (08:33)
--- NOTE | 2018-04-21 09:15 | NUR ---
Pt w/o s/sx aspiration/penetration during clinical swallow evaluation today. Results of MBSS 04/14/18 revealed mild pharyngeal phase dysphagia characterized by vallecular pooling which was only cleared with compensatory strategy use. Pt has been trained on compensatory strategies and uses these independently. Recommend mechanical soft diet and thin liquids w/ chin tuck, effortful swallow, and alternating solids and liquids. Addendum: 04/21/[address] [facility] Amended: Links added.
[2018-04-21] MEDS: VANCOMYCIN HCL 1,000 MG, VIAL MATE ADAPTER 1 EACH in D5W 250 ML IV SCH (11:33)
[2018-04-21] MEDS: FUROSEMIDE 20 MG TAB PO SCH (11:34)
--- NOTE | 2018-04-21 15:21 | REP ---
Duplex extremity venous ultrasound: Left lower extremity. History: Ecchymosis. History of left greater saphenous vein harvest for coronary artery bypass graft, February 25, 2018. Findings: The deep veins are anechoic and fully compressible from the groin to the popliteal fossa in the left lower extremity. Color flow imaging is homogeneous. Spectral Doppler interrogation demonstrates intact respiratory variation in flow and normal manual augmentation of flow. There is no evidence of deep vein thrombosis. Impression: Negative left lower extremity duplex venous ultrasound. No evidence of deep vein thrombosis. Electronically Signed by Jesus Moser MD 04/21/2018 03:12 P
[2018-04-21 15:24] LABS: HEMATOCRIT 22.3 % (42.0-52.0); HEMOGLOBIN 7.6 g/dl (13.5-17.5); MEAN CORPUSCULAR HEMOGLOBIN 32.8 pg (27.0-33.0); MEAN CORPUSCULAR HGB CONC 34.1 g/dl (32.0-36.5); MEAN CORPUSCULAR VOLUME 96.1 fl (80.0-96.0); RED BLOOD COUNT 2.32 10^6/uL (4.30-6.10); WHITE BLOOD COUNT 12.2 10^3/uL (4.0-10.0)
[2018-04-21 15:29] LABS: PLATELET COUNT, AUTOMATED 60 10^3/uL (150-450)
[2018-04-21 15:43] LABS: EOSINOPHILS 3 % (0-5); LYMPHOCYTES 10 % (16-52); NEUTROPHILS 87 % (35-75)
[2018-04-21 15:44] LABS: PLATELET ESTIMATE DECREASED (NORMAL)
--- NOTE | 2018-04-21 16:28 | IPNPDOC ---
Date Seen The patient was seen on 04/21/18. Progress Note SUBJECTIVE: Patient is a 73-year-old male with nausea, vomiting, and abdominal pain. He is evaluated at bedside. He states that he feels much improved from the gastrointestinal standpoint; however, he is currently experiencing nosebleeds. He does not feel short of breath or having chest pain. He has bruising of his left lower extremity, but states that was from his recent vein grafting for coronary artery bypass graft. He is not having pain in his leg or any swelling. OBJECTIVE PHYSICAL EXAMINATION: VITAL SIGNS: Please see below. GENERAL: Pale elderly male, alert and conversant, sitting up in the hospital bed, answers questions appropriately, no acute distress. HEENT: Normocephalic, PERRL, EOMI, bright red blood noted on mustache proximal to right nares, oral mucosa appears pink and moist, nasal septum is midline, midline healed surgical anterior chest incision. CARDIOVASCULAR: Regular rate and rhythm, normal S1 and S2, no murmur, rub. RESPIRATORY: Improvement in crackles, more clear to auscultation bilaterally, no wheeze or rhonchi. ABDOMINAL: Soft, nontender, nondistended, improvement in lower abdominal ecchymoses, bowel sounds appreciated. EXTREMITIES: Purple confluent ecchymoses noted on left lower extremity that appear almost circumferential around the ankle extending up the leg, eschar on medial aspect of left lower leg from vein grafting, skin is dry, no appreciable edema, no clubbing, no cyanosis. NEUROLOGICAL: No focal neurological deficits. PSYCHOLOGICAL: Mood and affect appropriate. LABORATORY DATA, IMAGING STUDIES, MICROBIOLOGY: Please see below. Modified barium cookie swallow on 04/14/2018 - no evidence of penetration or aspiration. MRI brain without contrast on 04/14/2018 - small acute right frontal and left parietal lobe infarctions. Small subacute right parietal lobe infarction. Small vessel ischemic disease. Mild volume loss. Chest x-ray, two-view, PA and lateral 04/16/2018 - status post aortic valve replacement. 4.5 cm pleural opacity at the right base, mild wedge compression fracture deformity T12. CT abdomen and pelvis without contrast on 04/18/2018 - colon opacified from previously administered oral contrast, no obstructive gastrointestinal lesion, mildly distended urinary bladder, dystrophic calcifications of the prostate, no hydronephrosis, small bilateral pleural effusions, gastrostomy tube. Brain MRA without contrast a without contrast on 04/18/2018 - mild atherosclerotic irregularity in the proximal posterior cerebral artery on the left, otherwise unremarkable. Portable chest x-ray on 04/19/2018 - no new infiltrate. CT chest without contrast 04/20/2018 - Dense left lower lobe infiltrate with lesser patchy infiltrates in the right upper and lower lobes. Small bilateral pleural effusions. 5 mm left lower lobe nodule (stable) with a newly apparent 5 mm right middle lobe nodule. Mild new subcarinal lymphadenopathy, could be reactive. Interval median sternotomy and aortic valve replacement. Multiple new, but chronic appearing bilateral rib fractures. Mild anterior compression of the T12 vertebral body, appears recent. Echocardiogram - mild left ventricular hypertrophy, grade 2 diastolic dysfunction, preserved left ventricular systolic function, bioprosthetic aortic valve, mild mitral and tricuspid insufficiency, moderate pulmonary hypertension. DVT prophylaxis ordered?: Warfarin 8 mg by mouth daily; on hold as patient's INR is supratherapeutic. ASSESSMENT AND PLAN: This is a 73-year-old male with nausea, vomiting, and abdominal pain likely secondary to constipation; sepsis secondary to multifocal pneumonia. PROBLEMS: 1. Sepsis secondary to multifocal pneumonia from possible aspiration: One blood culture tube from 04/19/2018 positive for Staphylococcus aureus. Monitor for the time being. Subsequent blood cultures have been negative. Currently on Vancomycin and Cefepime. CT chest indicates multifocal pneumonia. Afebrile since 04/20/2018. Last documented fever on 04/19/2018 at 8PM of 102.6. Blood pressure improved. MRSA screen pending. Urinalysis negative. Continue EZPap and incentive spirometer. Continue Mucomyst twice daily. Continue with Guaifenesin. Sputum culture and gram stain ordered. 2. Nausea, vomiting, and abdominal pain: Significantly improved. Speech therapy consulted. Modified barium swallow study on 04/14/2018 revealed "mild pharyngeal phase dysphagia characterized by vallecular pooling which was only cleared with compensatory strategy use." Patient has been trained on compensatory strategies and uses them. ST recommends mechanical soft diet which has been instituted. Continue with Senokot S scheduled daily and mineral oil enema as needed. Discontinued Phenergan as last use was on 04/18/2018. Continue with Zofran as needed. General surgery have completed their consultation. Continue with Protonix 40 mg IV every 12 hours. Fecal occult blood test was negative. 3. 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 Was started on Coumadin at that time. Appeared to remain subtherapeutic until 04/17/2018. Patient was started on fenofibrate. Warfarin on hold as patient's INR is supratherapeutic at 11.54 on 04/20/2018. Given Vitamin K. INR today is 3.31. Carotid ultrasound revealed bilateral 16-49% internal carotid artery narrowing. No intervention required at this time. Transthoracic echocardiogram with results as above. Brain MRA reveals mild atherosclerotic irregularity in the proximal posterior cerebral artery on the left. Neurology has been consulted. Continue aspirin 81 mg by mouth daily. 4. Mild wedge compression fracture deformity, T12: Orthopedics consulted. Recommendations include weightbearing as tolerated. If patient does experience pain the suggestion is to repeat imaging and/or use a thoracolumbar orthopedic assist. 5. Coronary artery disease status post 6 vessel coronary artery bypass graft: Continue metoprolol 50 mg by mouth twice daily. Continue aspirin 81 mg by mouth daily. Troponins have been <0.02. No evidence of acute ischemia on EKG. Patient currently remains in the intensive care unit and on telemetry. Cardiology completed consultation. 6. Postoperative atrial fibrillation: Patient was started on warfarin 8 mg at outlying facility. The patient remained subtherapeutic until 04/17/2018. Supratherapeutic at 11.54 on 04/20/2018 requiring Vitamin K administration. Currently 3.31. Continue to hold Warfarin. Daily INR. 7. Severe aortic stenosis status post aortic valve replacement: Stable. Transthoracic echocardiogram obtained with results above. 8. Thrombocytopenia and anemia: Worsening thrombocytopenia. Hematology/oncology consulted. Peripheral smear obtained revealed underlying chronic anemia. B12 level was above normal. Folate was within normal limits. Iron studies revealed anemia of chronic disease. 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 Ordered HIT Ab. Repeat platelet count pending. 9. Acute on chronic kidney disease with hyponatremia: Hypervolemic hypovolemia. Restarted Lasix. Continue to hold Ramipril. 10. Urinary retention: Worsening renal function. Decreasing urinary output. Urinary catheter inserted. Adequate urinary output. Would consider post-void residual bladder scan once Pittman catheter is removed to observe any retention. 11. Hypertension: Blood pressure appears somewhat labile. Holding ramipril. Restarted Lasix. 12. Depression: Continue citalopram 10 mg daily. 13. Allergies: Continue loratadine 10 mg daily and Robitussin 5 mg four times daily. 14. Diabetes mellitus: Mechanical soft diet per ST recommendations. Insulin and fingersticks before meals and at bedtime. Hypoglycemic protocol. DISPOSITION: Pending improvement from pneumonia, urinary retention. Readmission to acute rehabilitative unit once medically stable. VS, I&O, 24H, Fishbone Vital Signs/I&O Vital Signs Date Time Temp Pulse Resp B/P (MAP) Pulse Ox O2 Delivery O2 Flow Rate FiO2 04/21/18 11:43 98.0 81 18 113/60 (77) 94 Room Air 04/21/18 08:00 2.0 I&O- Last 24 Hours up to 6 AM 04/21/18 06:00 Intake Total 1550 ml Output Total 1650 ml Balance -100 ml Laboratory Data 24H LABS Laboratory Tests 2 04/20/18 16:58: Bedside Glucose (Misc Panel) 215H 04/20/18 20:39: Bedside Glucose (Misc Panel) 167H 04/21/18 04:19: Nucleated Red Blood Cells % (auto) 0.0, Prothrombin Time 34.4H, Prothromb Time International Ratio 3.31, Anion Gap 10, Glomerular Filtration Rate 37.2L, Blood Urea Nitrogen 49H, Creatinine 1.90H, Sodium Level 131#L, Potassium Level 3.9, Chloride Level 101, Carbon Dioxide Level 20L, Calcium Level 8.0L, Random Vancomycin Level 17.5 04/21/18 11:17: Bedside Glucose (Misc Panel) 224H 04/21/18 14:31: CBC/BMP Laboratory Tests 04/21/18 04:19 Red Blood Count 2.44 L, Mean Corpuscular Volume 99.2 H, Mean Corpuscular Hemoglobin 33.2 H, Mean Corpuscular Hemoglobin Concent 33.5, Red Cell Distribution Width 20.1 H, Calcium Level 8.0 L Microbiology Microbiology 04/20/18 Blood Culture - Preliminary, Resulted No growth after 24 hours . All specim... 04/19/18 Blood Culture - Preliminary, Resulted No Growth after 48 hours. All Specime... 04/19/18 Blood Culture - Preliminary, Resulted Staphylococcus Aureus 04/20/18 MRSA Screen - Final, Complete OOSTHUIZEN,XU DO Apr 21, 2018 16:28
[2018-04-21] MEDS ORDERED: ACETAMINOPHEN 325 MG/10.15 ML UDC PO PRN (16:45)
[2018-04-21] MEDS: METOPROLOL TART 50 MG TAB PO SCH (20:17)
[2018-04-22] VITALS: BP 121/63
[2018-04-22 04:00] VITALS: BP 141/77
[2018-04-22 04:46] LABS: HEMATOCRIT 24.2 % (42.0-52.0); HEMOGLOBIN 8.1 g/dl (13.5-17.5); MEAN CORPUSCULAR HEMOGLOBIN 32.1 pg (27.0-33.0); MEAN CORPUSCULAR HGB CONC 33.5 g/dl (32.0-36.5); RED BLOOD COUNT 2.52 10^6/uL (4.30-6.10); WHITE BLOOD COUNT 14.5 10^3/uL (4.0-10.0)
[2018-04-22 04:51] LABS: PLATELET COUNT, AUTOMATED 54 10^3/uL (150-450)
[2018-04-22 04:58] LABS: CREATININE FOR GFR 1.69 MG/DL (0.70-1.30); GLOMERULAR FILTRATION RATE 42.6 (>42); POTASSIUM SERUM 3.6 MEQ/L (3.5-5.1)
[2018-04-22 05:04] LABS: INR 1.78; PROTHROMBIN TIME 21.1 SECONDS (12.1-14.4)
[2018-04-22] MEDS: CEFEPIME HCL 2 GM in D5W MINI-BAG PLUS 50 ML IV SCH (05:14)
[2018-04-22 08:00] VITALS: BP 145/74
[2018-04-22] MEDS: HumaLOG INSULIN (NovoLOG) PER UNIT SC SCH ×4 (08:22→20:27)
[2018-04-22] MEDS: CitaloPRAM (CeleXA) 10 MG TABLET PO SCH (08:24)
[2018-04-22] MEDS: FENOFIBRATE 145 MG TAB (TRICOR) PO SCH (08:24)
[2018-04-22] MEDS: SENOKOT S TAB PO SCH (08:24)
[2018-04-22] MEDS: LORATADINE 10 MG TAB PO SCH (08:25)
[2018-04-22] MEDS: FUROSEMIDE 20 MG TAB PO SCH (08:25)
[2018-04-22] MEDS: METOPROLOL TART 50 MG TAB PO SCH ×2 (08:26→20:20)
[2018-04-22] MEDS: PANTOPRAZOLE 40MG INJ (PROTONIX) (C9113) IV SCH (08:26)
[2018-04-22] MEDS: guaiFENesin SYRUP 200 MG/10 ML UDC PO SCH ×4 (08:26→20:19)
[2018-04-22] MEDS ORDERED: ASPIRIN 81 MG CHEW TABLET PO SCH (09:00)
--- NOTE | 2018-04-22 09:28 | REP ---
Portable chest x-ray: Single view. History: Shortness of breath. Comparison study: April 19, 2018. Findings: The patient is status post prior median sternotomy and aortic valve replacement. EKG monitoring electrodes are seen overlying the chest. There is fissural thickening on the right and some pleural opacity is seen inferior to the minor fissure. This has increased slightly since April 19, 2018 indicating slight increased in the right pleural fluid. There is also blunting of the left pleural angle which has increased. Impression: Small but increased bilateral pleural effusions. Electronically Signed by Jesus Moser MD 04/22/2018 10:45 A
[2018-04-22 12:00] VITALS: BP 123/60
[2018-04-22] MEDS: VANCOMYCIN HCL 1,000 MG, VIAL MATE ADAPTER 1 EACH in D5W 250 ML IV SCH (12:32)
[2018-04-22] MEDS: ACETYLCYSTEINE 10% 30 ML VIAL INH SCH ×2 (15:00→19:04)
[2018-04-22 15:32] LABS: C REACTIVE PROTEIN QUANTITATIV 23.6 MG/DL (0.00-0.30)
--- NOTE | 2018-04-22 15:40 | IPNPDOC ---
Date Seen The patient was seen on 04/22/18. Progress Note SUBJECTIVE: Patient is a 73-year-old male with nausea, vomiting, and abdominal pain. He is evaluated at bedside. He states that from a gastrointestinal standpoint he is much improved. He feels short of breath. He is not having chest pain. OBJECTIVE PHYSICAL EXAMINATION: VITAL SIGNS: Please see below. GENERAL: Pale elderly male, alert and conversant, sitting up in the ho spital bed, answers questions appropriately, appears to be having some difficulty catching his breath. HEENT: Normocephalic, PERRL, EOMI, oral mucosa appears pink and moist, nasal septum is midline, nares are patent. CARDIOVASCULAR: Regular rate and rhythm, normal S1 and S2, no murmur, rub, healed midline anterior mediastinal surgical incision. RESPIRATORY: Crackles appreciated on the left side of the posterior chest, course breath sounds noted in the superior portions of the posterior chest, di minished pulmonary auscultation in the right lower lobes, no wheeze or rhonchi. ABDOMINAL: Soft, nontender, nondistended, improvement in lower abdominal ecchymoses, bowel sounds appreciated, PEG tube. EXTREMITIES: Purple confluent ecchymoses noted on left lower extremity that appear almost circumferential around the ankle extending up the leg, eschar on medial aspect of left lower leg from vein grafting, skin is dry, no appreciable edema, no clubbing, no cyanosis. NEUROLOGICAL: No focal neurological deficits. PSYCHOLOGICAL: Mood and affect appropriate. LABORATORY DATA, IMAGING STUDIES, MICROBIOLOGY: Please see below. Modified barium cookie swallow on 04/14/2018 - no evidence of penetration or aspiration. MRI brain without contrast on 04/14/2018 - small acute right frontal and left parietal lobe infarctions. Small subacute right parietal lobe infarction. Small vessel ischemic disease. Mild volume loss. Chest x-ray, two-view, PA and lateral 04/16/2018 - status post aortic valve replacement. 4.5 cm pleural opacity at the right base, mild wedge compression fracture deformity T12. CT abdomen and pelvis without contrast on 04/18/2018 - colon opacified from previously administered oral contrast, no obstructive gastrointestinal lesion, mildly distended urinary bladder, dystrophic calcifications of the prostate, no hydronephrosis, small bilateral pleural effusions, gastrostomy tube. Brain MRA without contrast a without contrast on 04/18/2018 - mild atherosclerotic irregularity in the proximal posterior cerebral artery on the left, otherwise unremarkable. Portable chest x-ray on 04/19/2018 - no new infiltrate. CT chest without contrast 04/20/2018 - Dense left lower lobe infiltrate with lesser patchy infiltrates in the right upper and lower lobes. Small bilateral pleural effusions. 5 mm left lower lobe nodule (stable) with a newly apparent 5 mm right middle lobe nodule. Mild new subcarinal lymphadenopathy, could be reactive. Interval median sternotomy and aortic valve replacement. Multiple new, but chronic appearing bilateral rib fractures. Mild anterior compression of the T12 vertebral body, appears recent. Left lower extremity duplex ultrasound on 04/21/2018 - Negative left lower extremity duplex venous ultrasound. Portable chest x-ray on 04/22/2018 - Small, but increased bilateral pleural effusions. Echocardiogram - mild left ventricular hypertrophy, grade 2 diastolic dysfunction, preserved left ventricular systolic function, bioprosthetic aortic valve, mild mitral and tricuspid insufficiency, moderate pulmonary hypertension. DVT prophylaxis ordered?: Warfarin 4 mg by mouth daily. ASSESSMENT AND PLAN: This is a 73-year-old male with nausea, vomiting, and abdominal pain likely secondary to constipation; sepsis secondary to multifocal pneumonia. PROBLEMS: 1. Sepsis secondary to multifocal pneumonia from possible aspiration: One blood culture tube from 04/19/2018 positive for methicillin resistant Staphylococcus aureus. Infectious disease consulted. Repeat blood cultures ordered. Second blood culture from 04/19/2018 10:03 is negative after 72 hours of growth. Blood culture form 04/20/2018 11:19 is negative after 48 hours of growth. Currently on Vancomycin and Cefepime. CT chest indicates multifocal pneumonia. Afebrile since 04/20/2018. Last documented fever on 04/19/2018 at 8PM of 102.6. Blood pressure improved. MRSA screen negative. Urinalysis negative. Continue EZPap and incentive spirometer. Continue Mucomyst twice daily. Continue with Guaifenesin. Sputum culture and gram stain ordered. Repeat lactic acid is within normal limits. Increasing leukocytosis. Mildly hypertensive and tachycardiac. 2. Thrombocytopenia and anemia: Worsening thrombocytopenia. Hematology/oncology consulted. Peripheral smear obtained revealed underlying chronic anemia. B12 level was above normal. Folate was within normal limits. Iron studies revealed anemia of chronic disease. 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 Ordered HIT Ab. Discontinued Aspirin. 3. Acute on chronic kidney disease with hyponatremia: Patient has received 5.9L of intravenous fluid. Bilateral pleural effusions noted on imaging. Continue Lasix 20mg by mouth daily. Monitor strict I/Os, daily weights. Holding Ramipril. Improving creatinine. 4. Nausea, vomiting, and abdominal pain: Significantly improved. Speech therapy consulted. Modified barium swallow study on 04/14/2018 revealed "mild pharyngeal phase dysphagia characterized by vallecular pooling which was only cleared with compensatory strategy use." Patient has been trained on compensatory strategies and uses them. ST recommends mechanical soft diet which has been instituted. Continue with Senokot S scheduled daily and mineral oil enema as needed. Continue with Zofran as needed. General surgery have completed their consultation. Continue with Protonix 40 mg IV every 12 hours. Fecal occult blood test was negative. 5. 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 Was started on Coumadin at that time. Appeared to remain subtherap eutic until 04/17/2018. Patient was started on fenofibrate. Warfarin on hold as patient's INR is supratherapeutic at 11.54 on 04/20/2018. Given Vitamin K. INR today is subtherapeutic. Will reinstitute Warfarin at 4mg by mouth daily. Monitor INR daily. Carotid ultrasound revealed bilateral 16-49% internal carotid artery narrowing. No intervention required at this time. Transthoracic echocardiogram with results as above. Brain MRA reveals mild atherosclerotic irregularity in the proximal posterior cerebral artery on the left. Neurology has been consulted. Aspirin discontinued due to worsening platelet level. 6. Mild wedge compression fracture deformity, T12: Orthopedics consulted. Recomm endations include weightbearing as tolerated. If patient does experience pain the suggestion is to repeat imaging and/or use a thoracolumbar orthopedic assist. 7. Coronary artery disease status post 6 vessel coronary artery bypass graft: Continue metoprolol 50 mg by mouth twice daily. Continue aspirin 81 mg by mouth daily. Troponins have been <0.02. No evidence of acute ischemia on EKG. Patient currently remains in the intensive care unit and on telemetry. Cardiology completed consultation. 8. Postoperative atrial fibrillation: Patient was started on warfarin 8 mg at outlying facility. The patient remained subtherapeutic until 04/17/2018. Supratherapeutic at 11.54 on 04/20/2018 requiring Vitamin K administration. Currently 3.31. Continue to hold Warfarin. Daily INR. 9. Severe aortic stenosis status post aortic valve replacement: Stable. Transthoracic echocardiogram obtained with results above. 10. Urinary retention: Worsening renal function. Decreasing urinary output. Urinary catheter inserted. Adequate urinary output. Would consider post-void residual bladder scan once Pittman catheter is removed to observe any retention. 11. Hypertension: Blood pressure appears somewhat labile. Holding ramipril. Continue Lasix. 12. Depression: Continue citalopram 10 mg daily. 13. Allergies: Continue loratadine 10 mg daily and Robitussin 5 mg four times daily. 14. Diabetes mellitus: Mechanical soft diet per ST recommendations. Insulin and fingersticks before meals and at bedtime. Hypoglycemic protocol. DISPOSITION: Pending improvement from pneumonia, urinary retention. Readmission to acute rehabilitative unit once medically stable. VS, I&O, 24H, Fishbone Vital Signs/I&O Vital Signs Date Time Temp Pulse Resp B/P (MAP) Pulse Ox O2 Delivery O2 Flow Rate FiO2 04/22/18 08:26 104 145/74 04/22/18 04:00 98.6 16 94 Room Air 04/21/18 08:00 2.0 I&O- Last 24 Hours up to 6 AM 04/22/18 06:00 Intake Total 1752 ml Output Total 1425 ml Balance 327 ml Laboratory Data 24H LABS Laboratory Tests 2 04/21/18 17:17: Bedside Glucose (Misc Panel) 144H 04/21/18 20:30: Bedside Glucose (Misc Panel) 170H 04/22/18 04:27: Nucleated Red Blood Cells % (auto) 0.0, Prothrombin Time 21.1H, Prothromb Time International Ratio 1.78, Anion Gap 10, Glomerular Filtration Rate 42.6, Blood Urea Nitrogen 51H, Creatinine 1.69H, Sodium Level 130L, Potassium Level 3.6, Chloride Level 99, Carbon Dioxide Level 21, Calcium Level 8.0L 04/22/18 08:48: Osmolality 295, Lactic Acid Level 1.1 04/22/18 08:58: Urine Random Osmolality 362L 04/22/18 12:19: Bedside Glucose (Misc Panel) 246H CBC/BMP Laboratory Tests 04/22/18 04:27 Red Blood Count 2.52 L, Mean Corpuscular Volume 96.0, Mean Corpuscular Hemoglobin 32.1, Mean Corpuscular Hemoglobin Concent 33.5, Red Cell Distribution Width 18.7 H, Calcium Level 8.0 L Microbiology Microbiology 04/22/18 Blood Culture, Received Pending 04/22/18 Blood Culture, Received Pending 04/20/18 Blood Culture - Preliminary, Resulted No Growth after 48 hours. All Specime... 04/19/18 Blood Culture - Preliminary, Resulted No Growth after 72 hours. All specime... 04/19/18 Blood Culture - Final, Complete Staph.aureus Methicillin Resis 04/20/18 MRSA Screen - Final, Complete XU KEMP DO Apr 22, 2018 15:40
[2018-04-22 15:50] LABS: CHOLESTEROL RISK RATIO 10.363 (<5)
[2018-04-22 16:00] VITALS: BP 135/77
[2018-04-22] MEDS ORDERED: METOCLOPRAMIDE INJ 10MG/2ML VIAL (J2765) IV ONE (16:45)
--- NOTE | 2018-04-22 16:50 | IPN ---
DATE OF SERVICE: 04/22/2018 REASON FOR VISIT: Dropping platelet counts. Follow up hospital visit Subsequent hospital care The patient and his , who is at his bedside, had discussions regarding his low platelet count. He had been noted to have a platelet count of 98,000 on April 20 and has dropped down to 54,000. Heparin has subsequently been discontinued. The patient had been on Coumadin but had this held due to an elevated PT/INR that was over 11. His PT/INR today is 1.78. He has had no bleeding and no petechiae. Has some old ecchymoses that are currently in different stages of healing. His medications still and include: - acetaminophen - amlodipine besylate - ascorbic acid - 81 mg of aspirin - chlorhexidine gluconate - clonidine hydrochlorothiazide - EPO - fenofibrate - ferrous gluconate 324 mg by mouth daily - Flonase - folic acid 1 mg by mouth daily - hydralazine 25 mg per GT tube - insulin 5 units subcutaneous - loratadine 10 mg - metoprolol 50 mg - nitroglycerin - nystatin - quetiapine - ramipril - Carafate PHYSICAL EXAMINATION: The patient appears to be tired, fatigued, lethargic. Reports that patient had been up and walking around the room with physical therapy, as reported by the . The patient is now on his supine position. His temperature is 98.6, his blood pressure (BP) is 141/77, pulse oximetry is 94, respiratory rate is 16. HEENT is normocephalic, atraumatic, pupils equal, round, and reactive to light (PERRL), extraocular muscles intact (EOMI). Sclerae are otherwise white and nonicteric. Oropharynx is otherwise clear. NECK: Supple. CHEST: Clear to auscultation and percussion. CARDIOVASCULAR: S1 and S2 are appreciated. ABDOMEN: Large, globoid, soft. EXTREMITIES: Show some ecchymosis. On his current laboratories, his WBC count is 14.5, hemoglobin is 8.1/24.2, RDW of 33.5, platelet count is 54,000. His serotonin release assay was sent off as well as his heparin-induced antibody. Both of these results are pending. 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 PLAN: Hold any heparin, even in the flushes that the patient may have with his intravenous, as this can cause thrombocytopenia. He shows no signs of any thrombosis and currently has been resumed back on Coumadin. Currently, his value is subtherapeutic, and with his aortic valve, his values should be between 2.5 and 3.5 INR results. Plan is to repeat complete blood count (CBC) on a daily basis, monitor for any bleeding, and monitor for thrombosis. If the serotonin release assay is positive, the patient definitely has heparin-induced thrombocytopenia. Due to the patient's exposure to heparin, with his multiple cardiac procedures it would not be unusual for him to have heparin-induced antibodies. Although patients may have positive heparin-induced antibodies, this does not mean that they have heparin-induced thrombocytopenia. It is simply that they have been exposed prior. The serotonin release assay is the more accurate diagnosis of heparin-induced thrombocytopenia (HIT) along with clinical presentation. Restart coumadin ( done ) Edited: mavis 04/26/2018 1315 MTDD
[2018-04-22] MEDS ORDERED: WARFARIN SOD 4 MG TAB PO SCH (17:00)
[2018-04-22] MEDS: ONDANSETRON 4MG/2ML VIAL (J2405) IV SCH (19:04)
[2018-04-22 20:00] VITALS: BP 135/71
[2018-04-23] VITALS: BP 116/64
[2018-04-23] MEDS: ONDANSETRON 4MG/2ML VIAL (J2405) IV SCH ×4 (00:36→20:18)
[2018-04-23 04:00] VITALS: BP 156/79
[2018-04-23 05:16] LABS: HEMATOCRIT 24.5 % (42.0-52.0); HEMOGLOBIN 8.2 g/dl (13.5-17.5); MEAN CORPUSCULAR HEMOGLOBIN 32.3 pg (27.0-33.0); MEAN CORPUSCULAR HGB CONC 33.5 g/dl (32.0-36.5); MEAN CORPUSCULAR VOLUME 96.5 fl (80.0-96.0); RED BLOOD COUNT 2.54 10^6/uL (4.30-6.10); WHITE BLOOD COUNT 10.9 10^3/uL (4.0-10.0)
[2018-04-23 05:17] LABS: PLATELET COUNT, AUTOMATED 66 10^3/uL (150-450)
[2018-04-23 05:29] LABS: INR 1.75; PROTHROMBIN TIME 20.7 SECONDS (12.1-14.4)
[2018-04-23 05:33] LABS: CALCIUM LEVEL 7.7 MG/DL (8.8-10.2); CREATININE FOR GFR 1.51 MG/DL (0.70-1.30); GLOMERULAR FILTRATION RATE 48.5 (>42); POTASSIUM SERUM 3.5 MEQ/L (3.5-5.1)
[2018-04-23 05:38] LABS: ERYTHROCYTE SEDIMENTATION RATE 129 mm/hr (0-20)
--- NOTE | 2018-04-23 07:19 | CR ---
DATE OF CONSULTATION: 04/22/2018 REQUESTING PROVIDER: Dr. Delilah Clements REASON FOR CONSULTATION: Multifocal pneumonia, concern for methicillin- resistant Staphylococcus aureus (MRSA) bacteremia in the setting of a replaced mitral valve Mr. Bernard is a very pleasant 73-year-old male who has had a very unfortunate last few months. In February 2018, he was admitted for a syncopal episode at home and then during his hospital stay had cardiac arrest initially in the form of ventricular fibrillation and then later in the form of pulseless electrical activity. Both times he had been successfully resuscitated and was subsequently transferred to [facility] in [place] where he underwent a successful coronary artery bypass graft (CABG) an aortic valve replacement, and developed atrial fibrillation that required defibrillation. His postoperative course was complicated by respiratory failure that required tracheostomy, acute renal failure that required renal replacement therapy, and failure to thrive which prompted a percutaneous endoscopic gastrostomy (PEG) tube placement. He also had hematology consulted during his postoperative course for thrombocytopenia, though blood work did not confirm heparin-induced thrombocytopenia (HIT). He eventually improved and was transferred to our facility for rehabilitation on 04/11/2018. On the morning of 04/18/2018, the patient was complaining of nausea and chest discomfort that the patient had described as similar to when he had his heart attack. He had been given one 0.4 sublingual nitroglycerin which reduced his pain to 5 out of 10, his blood pressure was elevated and he was placed on oxygen and given 2 mg of IM morphine. To rule out acute coronary syndrome (ACS), he was transferred to the intensive care unit (ICU) and subsequently seen by cardiology as well as by hematology for thrombocytopenia. His workup ruled out a new myocardial infarction, though his electrocardiogram (EKG) showed a left anterior fascicular hemiblock. He had been vomiting clear fluid without any obvious particulate matter and his nausea eventually resolved after receiving multiple doses of antiemetic medications. Transthoracic echocardiogram revealed normal function of bioprosthesis in aortic position and preserved left ventricular systolic function. Since then, he has been complaining of nausea intermittently. On 04/19/2018, neurology was consulted due to weakness of the right side. MRI showed a small acute left parietal and frontal ischemic stroke which may have happened during his hospitalization in [place]. Of note, the patient does have a history of diabetes and gastroparesis remains on the differential for his persistent nausea. His G-tube has been clamped and is vented as needed. Speech therapy has recommended a mechanical soft diet with thin liquids. The patient has had an increasing white count during his hospital stay. He had one culture on the that positive for MRSA, the other culture was negative. Repeat blood culture on the was negative. Chest x-ray on 04/19/2018 showed no infiltrate; however, chest CT done 04/20/2018 showed left lower lobe infiltrates with lesser patchy infiltrates in the right upper and lower lobes suggesting multifocal pneumonia with small bilateral pleural effusions. The patient was started on cefepime 2 grams every 12 hours IV on the and vancomycin 1 gram every 24 hours IV was added on the . Chest x-ray on 04/22/2018 showed small but increased bilateral pleural effusions, thus infectious disease was called for consultation. This afternoon, the patient is still complaining of being nauseous. He currently has Zofran ordered every 4 hours p.r.n., which it seems like he has not been using. He does cough periodically, but does not think he is bringing anything up. Despite having nausea, he has not vomited, though he does have a vomit bag ready. He denies diarrhea. He denies any chest pain. He denies any fevers or chills. He denies any new lumps or bumps anywhere, or rashes. REVIEW OF SYSTEMS Constitutional: Denies fevers, chills, night sweats. HEENT: Denies headache, double vision, sinus pain or odynophagia. Does admit to epistaxis and of feeling like blood is running down the back of his throat. Cardiovascular: Denies any chest pain, shortness of breath, paroxysmal nocturnal dyspnea (PND), orthopnea, edema or palpitations. Respiratory: Positive for cough and hemoptysis. Negative for sputum, wheezes or shortness of breath Gastrointestinal: Positive for nausea. Negative for vomiting, diarrhea, constipation, obstipation, hematemesis, hematochezia, melena or tenesmus. Genitourinary: Patient admits to having a Pittman catheter. Denies hematuria, hesitancy, dribbling or dysuria. Musculoskeletal: Denies joint swelling, decreased range of motion, crepitus or stiffness. Integumentary: Denies pruritus, rashes, striae, lesions, or wounds. He has a healing incision on his chest from his cardiac surgery. Neurological: Admits to right-sided weakness, especially in his right lower leg. Otherwise denies changes in sight, smell, hearing, taste, seizures, headaches, or paresthesias. Psychiatric: Denies paranoia, anhedonia, manic episodes, or anxiety Endocrine: Denies diarrhea, tremor, palpitations, constipation, dry skin or polydipsia. Hematologic: Positive for easy bruising and epistaxis. The patient is unsure as to whether or not he bleeds easily. Lymphatic: No new lumps or bumps anywhere. PAST MEDICAL HISTORY 1. Congestive heart failure. 2. History of squamous cell cancer. 3. Coronary artery disease with a history of cardiopulmonary arrest times two in February with subsequent successful CABG, aortic valve replacement, and atrial fibrillation requiring defibrillation. 4. Severe aortic stenosis status post transcatheter aortic valve replacement in February. 5. Type 2 diabetes mellitus. 6. Depression. 6. History of myocardial infarction in 2007. PAST SURGICAL HISTORY: 1. Successful CABG in February with aortic valve bioprosthetic replacement. 2. Percutaneous gastrostomy tube. 3. Tracheostomy 4. History of skin biopsies. SOCIAL HISTORY: The patient is and is a nonsmoker. Denies alcohol or drug use. FAMILY HISTORY: His father of myocardial fraction and his mother had diabetes and hypertension. ALLERGIES: - CUCUMBER - DULOXETINE - METFORMIN - PENICILLINS - STATINS PHYSICAL EXAMINATION: Vitals: Pulse is 88 and regular. Respiratory rate is 18. Blood pressure is 114/57. Pulse oximetry 97% on room air. General: Elderly male lying in his bed in the ICU in no apparent distress. HEENT: Atraumatic, normocephalic. Mucous membranes are moist. Eyes are clear. There are no sores or ulcers inside the mouth. The patient has some dried blood on the inside of his nose. Posterior pharynx does show a little bit of erythema. Neck: Supple. No neck stiffness. No masses. Lungs: Bilateral crackles appreciate at the bases. No wheezing or rhonchi were noted. Otherwise clear to auscultation at the apices. Heart: Regular rate and rhythm with a systolic murmur 2/6 heard best at the left sternal border in the second intercostal space. Chest: The patient has a long vertical incision down his chest from his CABG surgery that is well healing. There is no surrounding erythema or exudate. There is no sternal tenderness. Abdomen: Soft. No masses are palpated. No organomegaly is appreciated. Extremities: There is some bruising on the extremities. Pulses are intact bilaterally. No rashes or erythema is noted. Back: No costovertebral angle (CVA) tenderness bilaterally. Psych: Appropriate mood and affect. Neurologic: Speech is intact. The patient is alert and oriented. Muscle strength was not formally tested, the patient can move all four of his extremities independently. LABORATORY DATA: CBC: WBC 14.5, hemoglobin 8.1, hematocrit 24.2, platelets 54. Chemistry: Sodium 130, potassium 3.6, chloride 99, carbon dioxide 21, BUN 51, creatinine 1.69, fasting glucose 170, osmolality 295, lactic acid 1.1, calcium 8.0, CRP 23.6, triglycerides 207, total cholesterol 114, LDL 62, non HDL 103, total HDL 11. Coagulation Studies: PT 21.1, INR 1.78. Urine (04/20/2018): Yellow and clear with a specific gravity of 1.015, pH of 5.0, 2+ protein, 1+ glucose. IMMUNOLOGY: Heparin-induced antibodies pending, KITTY pending. MICROBIOLOGY: 1/2 blood cultures from 04/19/2018 positive for Staph aureus, the other was negative. MRSA screen on 04/20/2018 was negative. Blood culture on 04/20/2018 was negative. Repeat blood cultures from 04/22/2018 are pending. IMAGING STUDIES: CT of abdomen and pelvis from 04/18/2018 showed small bilateral pleural effusions, the right slightly larger than the left. An unremarkable colon. No obstructive gastrointestinal lesion. Mildly distended urinary bladder and dystrophic calcifications in the prostate. No hydronephrosis. Gastrostomy tube in place. Vascular ultrasound from 04/18/2018 of the carotids showed 16-49% category narrowing in the right internal carotid artery (ICA) by Doppler velocity criteria and 16-49% category narrowing in the left ICA by Doppler velocity criteria. Brain MRA from 04/18/2018 showed mild atherosclerotic irregularity in the proximal posterior cerebral artery on the left, otherwise unremarkable. Chest x-ray from 04/19/2018 showed no new infiltrate. Abdomen and pelvis CT from 04/20/2018 showed no gross acute abnormality aside from a mild recent appearing compression of the T12 vertebral body similar to 04/18/2018. Vascular ultrasound of the left lower extremity on 04/21/2018 was negative for a deep vein thrombosis (DVT). Chest x-ray from 04/22/2018 showed small, but increased bilateral pleural effusions. ASSESSMENT/PLAN: This is a 73-year-old gentleman with a very unfortunate past medical history over the last 2 months as described above. He has had an increasing white count and has a significantly elevated CRP. There is a question as to whether or not he might have aspiration pneumonia. He also had one positive blood culture for MRSA on 04/19/2017. In light of the recent aortic valve replacement, we recommend getting a transesophageal echocardiogram as the patient is 2 months status post his replacement and could have seeded his new valve. We have stopped his cefepime; however, will continue the vancomycin 1 gram every 24 hours. If his transesophageal echocardiogram (ROSAENN) is negative, vancomycin should be continued IV for about 2 weeks from the first negative culture. End date of antibiotic therapy will be on 05/04/2018 as long as the patient's ROSEANN is negative. My faculty preceptor for this patient encounter was physically present during the encounter and was fully available. All aspects of the patient interview, examination, medical decision making process, and medical care plan development were reviewed and approved by the faculty preceptor. The faculty preceptor is aware and concurs with the plan as stated in the body of this note and will attest to such by his/her co-signature. FABRICIO
[2018-04-23] MEDS: HumaLOG INSULIN (NovoLOG) PER UNIT SC SCH ×4 (07:57→21:00)
[2018-04-23 08:00] VITALS: BP 155/76
[2018-04-23 08:13] LABS: ALBUMIN 1.8 GM/DL (3.2-5.2)
[2018-04-23] MEDS: PANTOPRAZOLE 40MG TAB (PROTONIX) PO SCH (09:01)
[2018-04-23] MEDS: METOPROLOL TART 50 MG TAB PO SCH ×2 (09:01→21:01)
[2018-04-23] MEDS: SENOKOT S TAB PO SCH (09:01)
[2018-04-23] MEDS: CitaloPRAM (CeleXA) 10 MG TABLET PO SCH (09:02)
[2018-04-23] MEDS: FUROSEMIDE 20 MG TAB PO SCH (09:02)
[2018-04-23] MEDS: METOCLOPRAMIDE 5 MG TAB PO SCH ×3 (09:02→18:01)
[2018-04-23] MEDS: LORATADINE 10 MG TAB PO SCH (09:02)
[2018-04-23] MEDS: FENOFIBRATE 145 MG TAB (TRICOR) PO SCH (09:02)
[2018-04-23] MEDS: guaiFENesin SYRUP 200 MG/10 ML UDC PO SCH ×4 (09:03→21:02)
[2018-04-23 12:00] VITALS: BP 148/77
[2018-04-23] MEDS: ASPIRIN 81 MG CHEW TABLET PO SCH (12:41)
[2018-04-23] MEDS: ALBUTEROL SULFATE 2.5 MG/0.5 ML INH NEB SOLN NEB PRN (12:47)
[2018-04-23] MEDS: ACETYLCYSTEINE 20% 4 ML VIAL (200MG/ML) INH SCH ×2 (12:47→20:00)
--- NOTE | 2018-04-23 12:55 | IPNPDOC ---
Date Seen The patient was seen on 04/23/18. Progress Note SUBJECTIVE: Patient is a 73-year-old male with nausea, vomiting, and abdominal pain. He is evaluated at bedside. Patient states that he feels somewhat nauseous and has the sensation of fullness after only a few bites of food. He is not vomiting. He denies chest pain, shortness of breath, or fever. He is alert and conversant during my evaluation. OBJECTIVE PHYSICAL EXAMINATION: VITAL SIGNS: Please see below. GENERAL: Pale elderly male, alert and conversant, laying in hospital bed, answers questions appropriately, no acute distress. HEENT: Normocephalic, PERRL, EOMI, oral mucosa appears pink and moist, nasal septum is midline, nares are patent. CARDIOVASCULAR: Regular rate and rhythm, normal S1 and S2, no murmur, rub, healed midline anterior mediastinal surgical incision. RESPIRATORY: Crackles appreciated on the left side of the posterior chest, course breath sounds noted in the superior portions of the posterior chest, diminished pulmonary auscultation in the right lower lobes, no wheeze or rhonchi. ABDOMINAL: Soft, nontender, nondistended, improvement in lower abdominal ecchymoses, bowel sounds appreciated, PEG tube. EXTREMITIES: Purple confluent ecchymoses noted on left lower extremity that appear almost circumferential around the ankle extending up the leg, eschar on medial aspect of left lower leg from vein grafting, skin is dry, trace edema in left lower extremity, no clubbing, no cyanosis. NEUROLOGICAL: No focal neurological deficits. PSYCHOLOGICAL: Mood and affect appropriate. LABORATORY DATA, IMAGING STUDIES, MICROBIOLOGY: Please see below. Modified barium cookie swallow on 04/14/2018 - no evidence of penetration or aspiration. MRI brain without contrast on 04/14/2018 - small acute right frontal and left parietal lobe infarctions. Small subacute right parietal lobe infarction. Small vessel ischemic disease. Mild volume loss. Chest x-ray, two-view, PA and lateral 04/16/2018 - status post aortic valve replacement. 4.5 cm pleural opacity at the right base, mild wedge compression fracture deformity T12. CT abdomen and pelvis without contrast on 04/18/2018 - colon opacified from previously administered oral contrast, no obstructive gastrointestinal lesion, mildly distended urinary bladder, dystrophic calcifications of the prostate, no hydronephrosis, small bilateral pleural effusions, gastrostomy tube. Brain MRA without contrast a without contrast on 04/18/2018 - mild atherosclerotic irregularity in the proximal posterior cerebral artery on the left, otherwise unremarkable. Portable chest x-ray on 04/19/2018 - no new infiltrate. CT chest without contrast 04/20/2018 - Dense left lower lobe infiltrate with lesser patchy infiltrates in the right upper and lower lobes. Small bilateral pleural effusions. 5 mm left lower lobe nodule (stable) with a newly apparent 5 mm right middle lobe nodule. Mild new subcarinal lymphadenopathy, could be reactive. Interval median sternotomy and aortic valve replacement. Multiple new, but chronic appearing bilateral rib fractures. Mild anterior compression of the T12 vertebral body, appears recent. Left lower extremity duplex ultrasound on 04/21/2018 - Negative left lower extremity duplex venous ultrasound. Portable chest x-ray on 04/22/2018 - Small, but increased bilateral pleural effusions. Echocardiogram - mild left ventricular hypertrophy, grade 2 diastolic dysfu nction, preserved left ventricular systolic function, bioprosthetic aortic valve, mild mitral and tricuspid insufficiency, moderate pulmonary hypertension. DVT prophylaxis ordered?: Warfarin 4 mg by mouth daily. ASSESSMENT AND PLAN: This is a 73-year-old male with nausea, vomiting, and abdominal pain likely secondary to constipation; sepsis secondary to multifocal pneumonia. PROBLEMS: 1. Sepsis secondary to multifocal pneumonia from possible aspiration: One blood culture tube from 04/19/2018 positive for methicillin resistant Staphylococcus aureus. Infectious disease consulted. Recommended transesophageal echocardiogram. Cefepime has been discontinued. If ROSEANN is negative, then patient should receive 2 weeks of IV Vancomycin from first negative culture result which would be 05/04/2018. Repeat blood cultures ordered. Second blood culture from 04/19/2018 10:03 is negative after 72 hours of growth. Blood culture form 04/20/2018 11:19 is negative after 72 hours of growth. Blood cultures from 04/22/2018 are both negative after 24 hours of growth. Continue Vancomycin CT chest indicates multifocal pneumonia. Afebrile since 04/20/2018. Last documented fever on 04/19/2018 at 8PM of 102.6. Blood pressure improved. MRSA screen negative. Urinalysis negative. Continue EZPap and incentive spirometer. Continue Mucomyst twice daily. Continue with Guaifenesin. Sputum culture and gram stain ordered. Repeat lactic acid is within normal limits. Improving leukocytosis. Mildly hypertensive. Inflammatory markers (CRP, ESR) are significantly elevated. 2. Thrombocytopenia and anemia: Hematology/oncology consulted. Mild improvement in platelet count. Peripheral smear obtained revealed underlying chronic anemia. B12 level was above normal. Folate was within normal limits. Iron studies revealed anemia of chronic disease. 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 Ordered HIT Ab. Platelet count is > 50, so Aspirin has been reinitiated. 3. Acute on chronic kidney disease with hyponatremia: Patient has received 7.6L of intravenous fluid. Bilateral pleural effusions noted on imaging. Continue Lasix 20mg by mouth daily. Monitor strict I/Os, daily weights. Holding Ramipril. Improving creatinine. 4. Nausea, vomiting, and abdominal pain with possible underlying gastroparesis: Have started Metoclopramide 5mg by mouth before meals. Speech therapy have recommended mechanical soft diet based on modified barium swallow study on 04/14/2018 which revealed "mild pharyngeal phase dysphagia characterized by vallecular pooling which was only cleared with compensatory strategy use." Patient has been trained on compensatory strategies and uses them. Continue with Senokot S scheduled daily and mineral oil enema as needed. Zofran has been discontinued. Adjusted Protonix to 40mg by mouth daily. Fecal occult blood test was negative. 5. 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 Was started on Coumadin at that time. Appeared to remain subtherapeutic until 04/17/2018. Patient was started on fenofibrate. Warfarin on hold as patient's INR is supratherapeutic at 11.54 on 04/20/2018. Given Vitamin K. INR today is subtherapeutic. Monitor INR daily. Will increase Warfarin to 6mg. Carotid ultrasound revealed bilateral 16-49% internal carotid artery narrowing. No intervention required at this time. Transthoracic echocardiogram with results as above. Brain MRA reveals mild atherosclerotic irregularity in the proximal posterior cerebral artery on the left. Neurology has been consulted. Aspirin restarted as platelet count is > 50. 6. Mild wedge compression fracture deformity, T12: Orthopedics consulted. Recommendations include weightbearing as tolerated. If patient does experience pain the suggestion is to repeat imaging and/or use a thoracolumbar orthopedic assist. 7. Coronary artery disease status post 6 vessel coronary artery bypass graft: Continue metoprolol 50 mg by mouth twice daily. Continue aspirin 81 mg by mouth daily. Troponins have been <0.02. No evidence of acute ischemia on EKG. Patient currently remains in the intensive care unit and on telemetry. Cardiology completed consultation. 8. Postoperative atrial fibrillation: Patient was started on warfarin 8 mg at outlying facility. The patient remained subtherapeutic until 04/17/2018. Supratherapeutic at 11.54 on 04/20/2018 requiring Vitamin K administration. Currently 1.75. Received one dose of Warfarin 4mg yesterday. Will increase Wa rfarin to 6mg for today's dose. Daily INR. 9. Severe aortic stenosis status post aortic valve replacement: Stable. Transthoracic echocardiogram obtained with results above. Due to bacteremia with MRSA detected in one blood culture tube, will obtain ROSEANN. 10. Urinary retention: Improving renal function. Attempt to discontinue urinary catheter today. Post-void residual to be obtained. 11. Hypertension: Blood pressure appears somewhat labile. Holding ramipril. Continue Lasix. 12. Depression: Continue citalopram 10 mg daily. 13. Allergies: Continue loratadine 10 mg daily and Robitussin 5 mg four times daily. 14. Diabetes mellitus: Mechanical soft diet per ST recommendations. Insulin and fingersticks before meals and at bedtime. Hypoglycemic protocol. DISPOSITION: Transfer to PCU. Discontinue urinary catheter. ROSEANN. Readmission to acute rehabilitative unit once medically stable. VS, I&O, 24H, [facility] Vital Signs/I&O Vital Signs Date Time Temp Pulse Resp B/P (MAP) Pulse Ox O2 Delivery O2 Flow Rate FiO2 04/23/18 09:01 97 155/76 04/23/18 08:00 98.3 22 94 Room Air 04/21/18 08:00 2.0 I&O- Last 24 Hours up to 6 AM 04/23/18 06:00 Intake Total 1800 ml Output Total 1850 ml Balance -50 ml Laboratory Data 24H LABS Laboratory Tests 2 04/22/18 16:15: Bedside Glucose (Misc Panel) 195H 04/22/18 20:26: Bedside Glucose (Misc Panel) 232H 04/23/18 04:57: Nucleated Red Blood Cells % (auto) 0.0, Immature Platelet Fraction 2.4, Erythrocyte Sedimentation Rate 129H, Prothrombin Time 20.7H, Prothromb Time International Ratio 1.75, Anion Gap 10, Glomerular Filtration Rate 48.5, Blood Urea Nitrogen 39H, Creatinine 1.51H, Sodium Level 132L, Potassium Level 3.5, Chloride Level 101, Carbon Dioxide Level 21, Calcium Level 7.7L, Albumin 1.8L 04/23/18 07:23: Bedside Glucose (Misc Panel) 228H 04/23/18 09:56: Vancomycin Level Trough 19.7 04/23/18 12:23: Bedside Glucose (Misc Panel) 261H CBC/BMP Laboratory Tests 04/23/18 04:57 Red Blood Count 2.54 L, Mean Corpuscular Volume 96.5 H, Mean Corpuscular Hemoglobin 32.3, Mean Corpuscular Hemoglobin Concent 33.5, Red Cell Distribution Width 18.5 H, Calcium Level 7.7 L Microbiology Microbiology 04/22/18 Blood Culture - Preliminary, Resulted No growth after 24 hours . All specim... 04/22/18 Blood Culture - Preliminary, Resulted No growth after 24 hours . All specim... 04/20/18 Blood Culture - Preliminary, Resulted No Growth after 72 hours. All specime... 04/19/18 Blood Culture - Preliminary, Resulted No Growth after 72 hours. All specime... 04/19/18 Blood Culture - Final, Complete Staph.aureus Methicillin Resis 04/20/18 MRSA Screen - Final, Complete XU KEMP DO Apr 23, 2018 12:55
[2018-04-23] MEDS: VANCOMYCIN HCL 1,000 MG, VIAL MATE ADAPTER 1 EACH in D5W 250 ML IV SCH (14:49)
[2018-04-23 15:30] VITALS: BP 150/68
[2018-04-23] MEDS: WARFARIN SOD 3 MG TAB PO SCH (18:01)
[2018-04-23 20:00] VITALS: BP 131/78
[2018-04-24] VITALS (10 sets, daily range): BP systolic 120–177; BP diastolic 56–94
[2018-04-24 06:11] LABS: HEMATOCRIT 23.7 % (42.0-52.0); MEAN CORPUSCULAR HEMOGLOBIN 32.1 pg (27.0-33.0); MEAN CORPUSCULAR HGB CONC 33.8 g/dl (32.0-36.5); MEAN CORPUSCULAR VOLUME 95.2 fl (80.0-96.0); RED BLOOD COUNT 2.49 10^6/uL (4.30-6.10); WHITE BLOOD COUNT 11.2 10^3/uL (4.0-10.0)
[2018-04-24 06:12] LABS: PLATELET COUNT, AUTOMATED 91 10^3/uL (150-450)
[2018-04-24 06:22] LABS: INR 2.04; PROTHROMBIN TIME 23.4 SECONDS (12.1-14.4)
[2018-04-24 06:37] LABS: CALCIUM LEVEL 8.1 MG/DL (8.8-10.2); CREATININE FOR GFR 1.62 MG/DL (0.70-1.30); GLOMERULAR FILTRATION RATE 44.7 (>42); POTASSIUM SERUM 3.4 MEQ/L (3.5-5.1)
[2018-04-24] MEDS: HumaLOG INSULIN (NovoLOG) PER UNIT SC SCH ×4 (06:50→21:00)
[2018-04-24] MEDS: METOCLOPRAMIDE 5 MG TAB PO SCH ×3 (06:50→19:38)
[2018-04-24] MEDS: ALBUTEROL SULFATE 2.5 MG/0.5 ML INH NEB SOLN NEB PRN ×2 (07:17→20:49)
[2018-04-24] MEDS: ACETYLCYSTEINE 20% 4 ML VIAL (200MG/ML) INH SCH ×2 (07:17→20:48)
[2018-04-24] MEDS ORDERED: POTASSIUM CHLORIDE 10 MEQ SR TABLET PO ONE (08:00)
[2018-04-24] MEDS: CitaloPRAM (CeleXA) 10 MG TABLET PO SCH (08:15)
[2018-04-24] MEDS: guaiFENesin SYRUP 200 MG/10 ML UDC PO SCH ×4 (08:15→22:29)
[2018-04-24] MEDS: SENOKOT S TAB PO SCH (08:16)
[2018-04-24] MEDS: ASPIRIN 81 MG CHEW TABLET PO SCH (08:16)
[2018-04-24] MEDS: LORATADINE 10 MG TAB PO SCH (08:16)
[2018-04-24] MEDS: METOPROLOL TART 50 MG TAB PO SCH ×2 (08:17→22:30)
[2018-04-24] MEDS: FUROSEMIDE 20 MG TAB PO SCH (08:17)
[2018-04-24] MEDS: PANTOPRAZOLE 40MG TAB (PROTONIX) PO SCH (08:17)
[2018-04-24] MEDS: FENOFIBRATE 145 MG TAB (TRICOR) PO SCH (08:17)
--- NOTE | 2018-04-24 09:26 | IPN ---
DATE: 04/24/2018 I met with Mr. Pabon to discuss transesophageal echocardiogram planned for this afternoon. I already talked to him about the procedure yesterday extensively. I was able to reach Dr. Mccloud in [place], as was the patient's 's wish and got his blessing to proceed with the procedure. The patient himself seems to be improving. His platelet count is improving as well. His examination is unchanged compared to previous. I do not appreciate any murmur by cardiac exam. I answered the patient's questions. Procedure is scheduled for later today.
--- NOTE | 2018-04-24 10:58 | IPNPDOC ---
Date Seen The patient was seen on 04/24/18. Progress Note SUBJECTIVE: Patient is a 73-year-old male with nausea, vomiting, and abdominal pain. He is evaluated at bedside. Patient is laying in bed in supine position appears to be comfortable. He denies nausea, vomiting, abdominal pain, chest pain. He is alert and conversant during my evaluation. OBJECTIVE PHYSICAL EXAMINATION: VITAL SIGNS: Please see below. GENERAL: Pale elderly male, alert and conversant, laying in hospital bed, answers questions appropriately, no acute distress. HEENT: Normocephalic, PERRL, EOMI, oral mucosa appears pink and moist, nasal septum is midline, nares are patent. CARDIOVASCULAR: Regular rate and rhythm, normal S1 and S2, no murmur, rub, heal ed midline anterior mediastinal surgical incision. RESPIRATORY: Improved crackles appreciated on the left side of the posterior chest, course breath sounds noted in the superior portions of the posterior chest, diminished pulmonary auscultation in the right lower lobes, no wheeze or rhonchi. ABDOMINAL: Soft, nontender, nondistended, improvement in lower abdominal ecchymoses, bowel sounds appreciated, PEG tube. EXTREMITIES: Purple confluent ecchymoses noted on left lower extremity that appear almost circumferential around the ankle extending up the leg, eschar on medial aspect of left lower leg from vein grafting, skin is dry, trace bilateral lower extremity edema, no clubbing, no cyanosis. NEUROLOGICAL: No focal neurological deficits. PSYCHOLOGICAL: Mood and affect appropriate. LABORATORY DATA, IMAGING STUDIES, MICROBIOLOGY: Please see below. Modified barium cookie swallow on 04/14/2018 - no evidence of penetration or aspiration. MRI brain without contrast on 04/14/2018 - small acute right frontal and left parietal lobe infarctions. Small subacute right parietal lobe infarction. Small vessel ischemic disease. Mild volume loss. Chest x-ray, two-view, PA and lateral 04/16/2018 - status post aortic valve replacement. 4.5 cm pleural opacity at the right base, mild wedge compression fracture deformity T12. CT abdomen and pelvis without contrast on 04/18/2018 - colon opacified from previously administered oral contrast, no obstructive gastrointestinal lesion, mildly distended urinary bladder, dystrophic calcifications of the prostate, no hydronephrosis, small bilateral pleural effusions, gastrostomy tube. Brain MRA without contrast a without contrast on 04/18/2018 - mild atherosclerotic irregularity in the proximal posterior cerebral artery on the left, otherwise unremarkable. Portable chest x-ray on 04/19/2018 - no new infiltrate. CT chest without contrast 04/20/2018 - Dense left lower lobe infiltrate with lesser patchy infiltrates in the right upper and lower lobes. Small bilateral pleural effusions. 5 mm left lower lobe nodule (stable) with a newly apparent 5 mm right middle lobe nodule. Mild new subcarinal lymphadenopathy, could be reactive. Interval median sternotomy and aortic valve replacement. Multiple new, but chronic appearing bilateral rib fractures. Mild anterior compression of the T12 vertebral body, appears recent. Left lower extremity duplex ultrasound on 04/21/2018 - Negative left lower extremity duplex venous ultrasound. Portable chest x-ray on 04/22/2018 - Small, but increased bilateral pleural effusions. Echocardiogram - mild left ventricular hypertrophy, grade 2 diastolic dysfunction, preserved left ventricular systolic function, bioprosthetic aortic valve, mild mitral and tricuspid insufficiency, moderate pulmonary hypertension. DVT prophylaxis ordered?: Warfarin 6 mg by mouth daily. ASSESSMENT AND PLAN: This is a 73-year-old male with nausea, vomiting, and abdominal pain likely secondary to constipation; sepsis secondary to multifocal pneumonia. PROBLEMS: 1. Sepsis secondary to multifocal pneumonia from possible aspiration with underlying bacteremia: One blood culture tube from 04/19/2018 positive for m ethicillin resistant Staphylococcus aureus. Infectious disease consulted. Recommended transesophageal echocardiogram which is scheduled for 04/24/2018 at 5 PM. If ROSEANN is negative, then patient should receive 2 weeks of IV Vancomycin from first negative culture result which would be 05/04/2018. Repeat blood cultures ordered. Second blood culture from 04/19/2018 10:03 is negative. Blood culture form 04/20/2018 11:19 is negative after 72 hours of growth. Blood cultures from 04/22/2018 are both negative after 48 hours of growth. Continue Vancomycin. CT chest indicates multifocal pneumonia. Afebrile since 04/20/2018. Last documented fever on 04/19/2018 at 8PM of 102.6. Blood pressure improved. MRSA screen negative. Urinalysis negative. Continue EZPap and incentive spirometer. Continue Mucomyst twice daily. Continue with Guaifenesin. Sputum culture and gram stain ordered. Repeat lactic acid is within normal limits. Improving leukocytosis. Mildly hypertensive. Inflammato ry markers (CRP, ESR) are significantly elevated. 2. Thrombocytopenia and anemia: Hematology/oncology consulted. Mild improvement in platelet count. Peripheral smear obtained revealed underlying chronic anemia. B12 level was above normal. Folate was within normal limits. Iron studies revealed anemia of chronic disease. Heparin-induced antibodies were positive at 1.155. Serotonin release assays are pending. Platelet count is 91. Continue with aspirin. 3. Acute on chronic kidney disease with hyponatremia: Patient has received 8.8L of intravenous fluid. Bilateral pleural effusions noted on imaging. Continue Lasix 20mg by mouth daily. Monitor strict I/Os, daily weights. Holding Ramipril. Creatinine appears stable. 4. Nausea, vomiting, and abdominal pain with possible underlying gastroparesis: Continue Metoclopramide 5mg by mouth before meals. Speech therapy have recommended mechanical soft diet based on modified barium swallow study on 04/14/2018 which revealed "mild pharyngeal phase dysphagia characterized by vallecular pooling which was only cleared with compensatory strategy use." Patient has been trained on compensatory strategies and uses them. Continue with Senokot S scheduled daily and mineral oil enema as needed. Zofran has been discontinued. Continue Protonix to 40mg by mouth daily. Fecal occult blood test was negative. 5. 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 Was started on Coumadin at that time. Appeared to remain subtherapeut ic until 04/17/2018. Patient was started on fenofibrate. Warfarin on hold as patient's INR is supratherapeutic at 11.54 on 04/20/2018. Given Vitamin K. INR today is subtherapeutic. Monitor INR daily. Will increase Warfarin to 6mg. Carotid ultrasound revealed bilateral 16-49% internal carotid artery narrowing. No intervention required at this time. Transthoracic echocardiogram with results as above. Brain MRA reveals mild atherosclerotic irregularity in the proximal posterior cerebral artery on the left. Neurology has been consulted. Continue Aspirin as platelet count is > 50. 6. Mild wedge compression fracture deformity, T12: Orthopedics consulted. Recommendations include weightbearing as tolerated. If patient does experience pain the suggestion is to repeat imaging and/or use a thoracolumbar orthopedic assist. 7. Coronary artery disease status post 6 vessel coronary artery bypass graft: Continue metoprolol 50 mg by mouth twice daily. Continue aspirin 81 mg by mouth daily. Troponins have been <0.02. No evidence of acute ischemia on EKG. Patient currently remains in the intensive care unit and on telemetry. Cardiology completed consultation. 8. Postoperative atrial fibrillation: Patient was started on warfarin 8 mg at outlying facility. The patient remained subtherapeutic until 04/17/2018. Supratherapeutic at 11.54 on 04/20/2018 requiring Vitamin K administration. Currently 1.75. Received one dose of Warfarin 4mg yesterday. Will increase Warfarin to 6mg for today's dose. Daily INR. 9. Severe aortic stenosis status post aortic valve replacement: Stable. Transthoracic echocardiogram obtained with results above. Due to bacteremia with MRSA detected in one blood culture tube, transesophageal echocardiogram will be obtained today, 04/24/2018. 10. Urinary retention: Pittman catheter was removed yesterday following protocol. Patient is producing urine independently and able to void independently without difficulty. 11. Hypertension: Blood pressure appears somewhat labile. Holding ramipril. Continue Lasix. 12. Depression: Continue citalopram 10 mg daily. 13. Allergies: Continue loratadine 10 mg daily and Robitussin 5 mg four times daily. 14. Diabetes mellitus: Mechanical soft diet per ST recommendations. Insulin and fingersticks before meals and at bedtime. Hypoglycemic protocol. DISPOSITION: Transesophageal echocardiogram today, 04/24/2018. Readmission to acute rehabilitative unit once medically stable. VS, I&O, 24H, [facility] Vital Signs/I&O Vital Signs Date Time Temp Pulse Resp B/P (MAP) Pulse Ox O2 Delivery O2 Flow Rate FiO2 04/24/18 08:17 70 124/68 04/24/18 08:00 97.5 18 97 Room Air 04/21/18 08:00 2.0 I&O- Last 24 Hours up to 6 AM 04/24/18 05:59 Intake Total 1670 ml Output Total 1975 ml Balance -305 ml Laboratory Data 24H LABS Laboratory Tests 2 04/23/18 12:23: Bedside Glucose (Misc Panel) 261H 04/23/18 16:58: Bedside Glucose (Misc Panel) 120H 04/23/18 20:19: Bedside Glucose (Misc Panel) 156H 04/24/18 05:29: Nucleated Red Blood Cells % (auto) 0.0, Immature Platelet Fraction 3.0, Prothrombin Time 23.4H, Prothromb Time International Ratio 2.04, Anion Gap 9, Glomerular Filtration Rate 44.7, Blood Urea Nitrogen 33H, Creatinine 1.62H, Sodium Level 134L, Potassium Level 3.4L, Chloride Level 103, Carbon Dioxide Level 22, Calcium Level 8.1L CBC/BMP Laboratory Tests 04/24/18 05:29 Red Blood Count 2.49 L, Mean Corpuscular Volume 95.2, Mean Corpuscular Hemoglobin 32.1, Mean Corpuscular Hemoglobin Concent 33.8, Red Cell Distribution Width 18.6 H, Calcium Level 8.1 L Microbiology Microbiology 04/22/18 Blood Culture - Preliminary, Resulted No growth after 24 hours . All specim... 04/22/18 Blood Culture - Preliminary, Resulted No Growth after 48 hours. All Specime... 04/20/18 Blood Culture - Preliminary, Resulted No Growth after 72 hours. All specime... 04/19/18 Blood Culture - Final, Complete NO GROWTH AFTER 5 DAYS 04/19/18 Blood Culture - Final, Complete Staph.aureus Methicillin Resis 04/20/18 MRSA Screen - Final, Complete XU KEMP DO Apr 24, 2018 10:46
[2018-04-24] MEDS: VANCOMYCIN HCL 1,000 MG, VIAL MATE ADAPTER 1 EACH in D5W 250 ML IV SCH (14:26)
[2018-04-24] MEDS ORDERED: PROPOFOL 200 MG/20 ML VIAL As Ordered ONE ×2 (15:36→16:38)
[2018-04-24] MEDS ORDERED: ONDANSETRON 4MG/2ML VIAL (J2405) As Ordered ONE (15:36)
[2018-04-24] MEDS ORDERED: LIDOCAINE 2% INJ 100 MG/5 ML SDV (FOR ANES.) As Ordered ONE ×2 (15:36→16:38)
[2018-04-24] MEDS ORDERED: dexameTHASONE 4 MG/ML 1ML VIAL (J1100) As Ordered ONE (15:36)
[2018-04-24] MEDS ORDERED: PROPOFOL 500 MG/50 ML VIAL As Ordered ONE (15:37)
[2018-04-24] MEDS ORDERED: MIDAZOLAM INJ 2 MG/2 ML VIAL (J2250) As Ordered ONE ×2 (15:37→16:38)
[2018-04-24] MEDS ORDERED: fentaNYL 100 MCG/2 ML INJECTION (J3010) As Ordered ONE ×2 (15:37→16:38)
[2018-04-24] MEDS ORDERED: CETACAINE SPRAY 5GM As Ordered ONE (15:47)
[2018-04-24] MEDS ORDERED: LIDOCAINE VISCOUS 2% SOLN 15ML UDC As Ordered ONE (16:21)
[2018-04-24] MEDS ORDERED: LR 1,000 ML IV SCH (18:30)
[2018-04-24] MEDS ORDERED: ONDANSETRON 4MG/2ML VIAL (J2405) IV PRN (18:30)
--- NOTE | 2018-04-24 19:49 | RO ---
DATE OF PROCEDURE: 04/24/2018 REFERRING PHYSICIAN: Dr. Cevallos and Dr. Duke INDICATION: Bacteremia, suspicion for endocarditis. PROCEDURE: Transesophageal echocardiogram. Anesthesiology provided by Roshan Mahajan CRNA BRIEF HISTORY: Mr. Zheng is 73-year-old man who has underwent extensive cardiac surgery in February 2018 after suffering cardiac arrest. It was aortic valve replacement and six-vessel coronary artery bypass graft. He had very bumpy postoperative course that included numerous complications, but eventually was able to leave [facility] and was transferred to rehab at [facility] but then condition deteriorated with nausea or vomiting and chest discomfort, together with intermittent fever and thrombocytopenia. Because he grew staph aureus from his blood transesophageal echocardiogram was requested by ID service with suspicion for endocarditis. I discussed the nature of the procedure with the patient and his on two separate occasions prior to prior he is signed appropriate consent. The procedure was then done in the operating room. PROCEDURE NOTE: The patient was brought to OR in fasting condition. His posterior pharynx was anesthetized using viscous lidocaine and Cetacaine spray. After a time-out was obtained he was sedated after he was previously positioned in left lateral decubitus position. Probe was introduced into esophagus and later stomach. After appropriate images were obtained it was withdrawn. There were no obvious complications and the patient tolerated the procedure hemodynamically well. There were no desaturations. FINDINGS: Left ventricle is of normal systolic function. I estimate EF around 60%. No segmental wall motion abnormalities are appreciated. Right ventricle also appears normal systolic function. Both atria are likely severely enlarged. There is a bioprosthetic valve in aortic position. It has normal mobility, no vegetations were seen by color Doppler imaging. There is no stenosis and trivial insufficiency. No perivalvular insufficiency. Mitral valve appears structurally grossly normal but for mild degenerative abnormalities. I do not appreciate any prolapse. I do not appreciate any vegetations. By color Doppler imaging there is moderate mitral insufficiency. Tricuspid valve appears normal. Mild tricuspid insufficiency is seen. Calculated pulmonary artery pressure is in 30s corresponding to mild pulmonary hypertension. Pulmonic valve was relatively poorly seen but by color Doppler imaging there is no stenosis or insufficiency. Atrial septum is intact based on 2-D and color Doppler imaging. Left atrial appendage is large and free of thrombi. There is no flow reversal in left-sided or right-sided pulmonary veins. There is diffuse but mild atherosclerosis of aortic arch and visualized segment of descending aorta. CONCLUSIONS: 1. Preserved LV systolic function. 2. Normal function of aortic bioprosthesis. 3. Moderate mitral insufficiency. 4. Mild tricuspid insufficiency. 5. Intact atrial septum. 6. Normal flow in right-sided and left-sided pulmonary veins. 7. Atherosclerosis of aortic arch and descending aorta. COMMENT: SBE prophylaxis is recommended. No evidence for vegetations. Results of the study were communicated to Dr. Cevallos. FABRICIO
[2018-04-24] MEDS: WARFARIN SOD 3 MG TAB PO SCH (22:29)
[2018-04-24] MEDS ORDERED: EUCERIN 120GM CREAM TOP PRN (23:15)
[2018-04-25] VITALS: BP 166/88
[2018-04-25 04:00] VITALS: BP 143/79
[2018-04-25 06:02] LABS: HEMATOCRIT 25.1 % (42.0-52.0); HEMOGLOBIN 8.2 g/dl (13.5-17.5); MEAN CORPUSCULAR HEMOGLOBIN 32.5 pg (27.0-33.0); MEAN CORPUSCULAR HGB CONC 32.7 g/dl (32.0-36.5); MEAN CORPUSCULAR VOLUME 99.6 fl (80.0-96.0); PLATELET COUNT, AUTOMATED 116 10^3/uL (150-450); RED BLOOD COUNT 2.52 10^6/uL (4.30-6.10); WHITE BLOOD COUNT 9.8 10^3/uL (4.0-10.0)
[2018-04-25 06:13] LABS: INR 2.61; PROTHROMBIN TIME 28.5 SECONDS (12.1-14.4)
[2018-04-25 06:46] LABS: CALCIUM LEVEL 8.1 MG/DL (8.8-10.2); CREATININE FOR GFR 1.59 MG/DL (0.70-1.30); GLOMERULAR FILTRATION RATE 45.7 (>42); POTASSIUM SERUM 4.5 MEQ/L (3.5-5.1)
[2018-04-25] MEDS: ACETYLCYSTEINE 20% 4 ML VIAL (200MG/ML) INH SCH (07:27)
[2018-04-25] MEDS: ALBUTEROL SULFATE 2.5 MG/0.5 ML INH NEB SOLN NEB PRN (07:27)
[2018-04-25 07:28] VITALS: O2SAT 99
[2018-04-25 08:00] VITALS: BP 169/89
[2018-04-25] MEDS: HumaLOG INSULIN (NovoLOG) PER UNIT SC SCH ×3 (08:07→17:25)
[2018-04-25] MEDS: ASPIRIN 81 MG CHEW TABLET PO SCH (08:08)
[2018-04-25] MEDS: SENOKOT S TAB PO SCH (08:08)
[2018-04-25] MEDS: FENOFIBRATE 145 MG TAB (TRICOR) PO SCH (08:08)
[2018-04-25] MEDS: CitaloPRAM (CeleXA) 10 MG TABLET PO SCH (08:08)
[2018-04-25] MEDS: guaiFENesin SYRUP 200 MG/10 ML UDC PO SCH ×3 (08:08→17:23)
[2018-04-25] MEDS: METOCLOPRAMIDE 5 MG TAB PO SCH ×3 (08:08→17:23)
[2018-04-25] MEDS: LORATADINE 10 MG TAB PO SCH (08:08)
[2018-04-25] MEDS: FUROSEMIDE 20 MG TAB PO SCH (08:08)
[2018-04-25 08:09] VITALS: BP 136/66
[2018-04-25] MEDS: PANTOPRAZOLE 40MG TAB (PROTONIX) PO SCH (08:09)
[2018-04-25] MEDS: METOPROLOL TART 50 MG TAB PO SCH (08:09)
[2018-04-25 10:23] LABS: UNFRACTIONATED HEPARIN HI DOSE 1 % (0-20); UNFRACTIONATED HEPARIN LOW DOS 1 % (0-20)
[2018-04-25 12:00] VITALS: BP 132/73
[2018-04-25] MEDS ORDERED: CEPACOL LOZENGE PO PRN (14:00)
--- NOTE | 2018-04-25 14:20 | PHACANCOPD ---
PHARMACY VANCOMYCIN DOSING Pt Demographics Demographics Patient Age:73 , Weight:76.900 , Gender: male Adjusted Body Weight Date: 04/20/18, Adjusted Body Weight: [NA] Kg Events Past 24 Hours Events Past 24 Hours: YES: Pending Diagnostics; NO: Dialysis, Diuretic Therapy, Change in CrCl, Fever, Elevation in WBC, Pending Procedures, Other Vancomycin Vancomycin indication: HCAP Vancomycin Target Ranges: 10-20 mcg/ml Vancomycin Load Y/N: Yes Load Dose Date Time Vancomycin Load Dose: 1000MG Date: 04/20 Time: ~08:00 Vancomycin Dose Date: 04/25/18. Current Vancomycin Dose: [750mg IV q24h @15] Date: 04/23/18. Current Vancomycin Dose: [1g IV q24h @14] Date: 04/20/18. Current Vancomycin Dose: [1g IV q24h @11] Intermittent Dosing?: No Labs Labs Item Value Date Time Vancomycin Level Trough 20.5 UG/ML H 04/25/18 1311 Vancomycin Level Trough 19.7 UG/ML 04/23/18 0956 Creatinine 1.51 MG/DL H 04/23/18 0457 Creatinine 1.62 MG/DL H 04/24/18 0529 Creatinine 1.59 MG/DL H 04/25/18 0524 Micro Microbiology 04/22/18 Blood Culture - Preliminary, Resulted No Growth after 72 hours. All specime... 04/22/18 Blood Culture - Preliminary, Resulted No Growth after 72 hours. All specime... 04/20/18 Blood Culture - Final, Complete NO GROWTH AFTER 5 DAYS 04/19/18 Blood Culture - Final, Complete NO GROWTH AFTER 5 DAYS 04/19/18 Blood Culture - Final, Complete Staph.aureus Methicillin Resis 04/20/18 MRSA Screen - Final, Complete Creatinine Clearance Date:04/25/18. Creatinine Clearance: [~42 ml/min]. Date:04/20/18. Creatinine Clearance: [~29 ml/min]. Assessment and Plan Maintaining Current Dose?: No Reason for dose change: Trough too high Pharmacist Note Pharmacist Note Date: 04/25/18. Pharmacist note: Repeat vancomycin level drawn ~45 min before the dose came back at 20.5mcg/ml. I have reduced vancomycin to 750mg IV q24h, SCr has been holding at ~1.6 mg/dl. One of two of the first set of blood cultures was positive for MRSA (MANDIE = 1); repeat blood cultures have been negative. ROSEANN done today showed no evidence for vegetation per Dr. Peng, end date for Vancomycin per Dr. Cevallos is 05/04/18. Pt is currently on day #6 of vancomycin therapy. We will continue to monitor and make adjustments as necessary. Date: 04/21/18. Pharmacist note:Vancomycin level drawn @4:19 this morning reported as 17.5-will maintain current regimen of Vancomycin 1 gram iv [id number] at this time-will continue to follow Date: 04/20/18. Pharmacist note: pt has been started on Vancomycin for HCAP. Chest CT suggests multifocal pneumonia. Pt was also started on Cefepime last evening. He has not been on vancomycin at our facility in the past, nor does he have an apparent Hx of MRSA. Blood cultures 2 is preliminary positive for gram + cocci cl, MRSA screen is pending. He was transferred from ARU a few days ago. SCr is trending up, he received vancomycin 1g at ~08:00 this morning and I will start 1g q24h dosing ~3 hours later this morning. I have a random scheduled for tomorrow morning. We will continue to monitor and follow up with his level tomorrow. Rashard Mahajan Pharm.D. Apr 25, 2018 14:20
[2018-04-25] MEDS ORDERED: VANCOMYCIN HCL 750 MG, VIAL MATE ADAPTER 1 EACH in D5W 250 ML IV SCH (15:00)
[2018-04-25] MEDS ORDERED: PANT40TA3 PO (15:37)
[2018-04-25] MEDS ORDERED: CELE10TA PO (15:37)
[2018-04-25] MEDS ORDERED: FURO20TA2 PO (15:37)
[2018-04-25] MEDS ORDERED: METO5TAB2 PO (15:37)
[2018-04-25] MEDS ORDERED: EUCE12CR TOP (15:37)
[2018-04-25] MEDS ORDERED: CHIL81CH2 PO (15:37)
[2018-04-25] MEDS ORDERED: GLUC4CHW19 PO (15:37)
[2018-04-25] MEDS ORDERED: Docusate Sod/Senna PO (15:37)
[2018-04-25] MEDS ORDERED: ACET20%4ML INH (15:37)
[2018-04-25] MEDS ORDERED: INSUHUMDS SC ×2 (15:37)
[2018-04-25] MEDS ORDERED: DEXT50IN6 IV (15:37)
[2018-04-25] MEDS ORDERED: LOPR1TAB6 PO (15:37)
[2018-04-25] MEDS ORDERED: ALB2.5NEB NEB (15:37)
[2018-04-25] MEDS ORDERED: GUAI5EL PO (15:37)
[2018-04-25] MEDS ORDERED: CLAR1TAB2 PO (15:37)
[2018-04-25] MEDS ORDERED: FLEETOIL PR (15:37)
[2018-04-25] MEDS ORDERED: ACET160S3 PO (15:37)
[2018-04-25] MEDS ORDERED: FENO145T13 PO (15:37)
[2018-04-25] MEDS ORDERED: CEPA1LOZ2 PO (15:37)
[2018-04-25] MEDS ORDERED: GLUC1INJ21 SC (15:37)
[2018-04-25] MEDS ORDERED: COUM1TAB19 PO (15:37)
[2018-04-25] MEDS ORDERED: INSUDET SC (15:37)
[2018-04-25] MEDS: WARFARIN SOD 3 MG TAB PO SCH (17:24)
--- NOTE | 2018-04-25 17:30 | DS.PDOC ---
Discharge Summary General Date of Admission Apr 18, 2018 at 05:46 Date of Discharge 04/25/2018 Attending Physician: RYLAND NEAL MD Specialist/Consultants Involve: KRAIG PACHECO MD Specialist/Consultants Involve Neurology: Dr. Nagel Orthopedics: Dr. Eisenberg Infectious disease: Dr. Renetta Cevallos Discharge Summary PROCEDURES PERFORMED DURING STAY: 1. Transthoracic echocardiogram - Study is of acceptable technical quality. Normal left ventricular (LV) size with mild left ventricular hypertrophy, overall preserved left ventricle systolic function and grade 2 diastolic dysfunction. Normally functioning bioprosthesis in aortic position. Mild mitral and tricuspid insufficiency. Normal central venous pressure. Suggestive of moderate pulmonary hypertension. ADMITTING DIAGNOSES: 1. N/V, chest discomfort. 2. HTN. 3. DM2. 4. PEG tube. 5. History of AKF status-post CABG/AV replacement. 6. History of atrial fibrillation post-operatively. 7. Depression. 8. History of severe aortic stenosis status-post bovine aortic valve replacement. 9. Abnormal brain MRI. DISCHARGE DIAGNOSES: 1. Sepsis secondary to multifocal pneumonia. 2. MRSA bacteremia. 3. Constipation. 4. Probable gastroparesis. 5. T12 mild wedge compression fracture. 6. 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 7. Post-operative atrial fibrillation. 8. Acute on chronic disease. 9. Severe aortic stenosis status-post bovine prosthetic valve replacement. 10. Coronary artery disease status-post 6-vessel coronary artery bypass grafting. COMPLICATIONS/CHIEF COMPLAINT: NSTEMI. HISTORY OF PRESENT ILLNESS: Mr. Pabon is a 73-year-old male with multiple co-morbidities who was admitted to ARU on 04/11/18 status-post 6-vessel bypass and aortic valve replacement at [facility] on 02/21/18. I was called at bedside on the morning of 04/16/17 because the patient was complaining of nausea and chest discomfort. The patient has been been complaining of nausea throughout the night but 5o-clock in the morning he began to experience chest discomfort that he rated 10/10. He stated the chest discomfort felt heavy on his chest and has this feeling in the past when he had his [place]. He was given 1 0.4SL nitroglycerin which reduced the pain 5/10. His blood pressure at the time was elevated systolic in 180 and he was placed on oxygen and given 2 mg IM morphine. The patient was continue to be diaphoretic, nausea with vomiting that was not improved with Zofran and Phenergan. EKG at bedside was done but because of the patient extensive recent cardiac history and no improvement of symptoms patient was transfer to ICU for ACS rule out. HOSPITAL COURSE: Patient was transferred to the ICU for further evaluation. Was given Nitroglycerin, Morphine, and oxygen with relief of chest discomfort. Troponins were trended and were negative. Restarted patient's Aspirin and continued patient's Metoprolol. No evidence of ischemia on EKG. Cardiology was consulted. Recommended possible lifelong anticoagulation based multiple ischemic strokes noted on imaging. Abdominal imaging revealed possible slow colonic transit based on retained contrast form esophagram completed on 04/16/18 and constipation. Administered mineral oil enema, Magnesium Citrate, MiraLAX. Continued Protonix and Carafate. Zofran and Phenergan for nausea. General surgery consulted. Metoclopramide was started for probable underlying gastroparesis with improvement in patient's symptoms. Speech therapy consulted and recommended a soft mechanical diet. T12 wedge compression fracture noted on imaging. Orthopedics was consulted with no intervention recommended. Patient may be weight-bearing as tolerated. If pain develops, orthopedics recommends repeat imaging and/or using a thoracolumbar ortho-assist. Patient was on Warfarin 8mg for post-operative atrial fibrillation and was subtherapeutic until 04/17/18, but then became supratherapeutic. Vitamin K was administered. Became subtherapeutic. Restarted Warfarin at 4mg and increased to 6mg based on daily INR levels. Patient is currently therapeutic. Brain MRI ordered in ARU did reveal acute right frontal and left parietal lobe infarctions. Started on Fenofibrate. Ordered follow-up imaging as resulted below. Started Aspirin, but discontinued due to worsening thrombocytopenia, and restarted once it improved. Neurology consulted. Recommend out-patient follow-up in 1 month after discharge. Patient found to be thrombocytopenic. Peripheral smear and iron studies revealed anemia of chronic disease. Hematology/oncology consulted. Thrombocytopenia worsened. HIT antibodies were ordered (which were positive; although serotonin release assay was negative) and Aspirin was discontinued. Patient also noted to have blurry vision with ophthalmology consulted. Recommended out-patient follow-up. Patient became septic from possible underlying multifocal pneumonia. Started on Vancomycin and Cefepime. Cefepime eventually discontinued. MRSA screen (negative), urinalysis (negative), sputum gram stain and culture ordered. Started on EZPap, incentive spirometer, and Mucomyst (although patient has been refusing it). Continued Guaifenesin. One blood culture tube from 04/19/18 was positive for MRSA. Subsequent blood cultures were negative. Infectious disease was consulted. ROSEANN was recommended and was found to be negative. Cefepime was discontinued. Since ROSEANN was negative, recommendation was to continue Vancomycin from last negative blood culture until 05/04/18. Developed urinary retention. Urinary catheter inserted and eventually discontinued with patient able to void without difficulty. Ramip ril was on hold during acute hospitalization due to acute on chronic kidney disease. Physical and occupational therapy were ordered and patient participated. Improvements made in therapy sessions with recommendation for patient to return to ARU for continued rehabilitation once medically stable. Patient made clinical and symptomatic improvements and was stable for transfer to ARU for continued rehabilitation. DISCHARGE MEDICATIONS: Please see below. ALLERGIES: Please see below. PHYSICAL EXAMINATION ON DISCHARGE: VITAL SIGNS: Please see below. GENERAL: Pale elderly male, alert and conversant, laying in hospital bed, answers questions appropriately, no acute distress. HEENT: Normocephalic, PERRL, EOMI, oral mucosa appears pink and moist, nasal septum is midline, nares are patent. CARDIOVASCULAR: Regular rate and rhythm, normal S1 and S2, no murmur, rub, healed midline anterior mediastinal surgical incision. RESPIRATORY: Improved crackles appreciated on the left side of the posterior chest, course breath sounds noted in the superior portions of the posterior chest, diminished pulmonary auscultation in the right lower lobes, no wheeze or rhonchi. ABDOMINAL: Soft, nontender, nondistended, improvement in lower abdominal ecchymoses, bowel sounds appreciated, PEG tube. EXTREMITIES: Purple confluent ecchymoses noted on left lower extremity that appear almost circumferential around the ankle extending up the leg, eschar on medial aspect of left lower leg from vein grafting, skin is dry, trace bilateral lower extremity edema, no clubbing, no cyanosis. NEUROLOGICAL: No focal neurological deficits. PSYCHOLOGICAL: Mood and affect appropriate. LABORATORY DATA: Please see below. IMAGIN. CT abdomen and pelvis without contrast on 04/18/2018 - The colon is opacified from previously administered oral contrast but appears unremarkable. No obstructive gastrointestinal lesion is seen. Mildly distended urinary bladder and dystrophic calcifications in the prostate. No hydronephrosis. Small bilateral pleural effusions, right a little larger than left. Gastrostomy tube in place. 2. Carotid duplex ultrasound on 04/18/2018 - 16-49% category narrowing in the bilateral ICA by Doppler velocity criteria. 3. MRA brain without contrast on 04/18/2018 - Mild atherosclerotic irregularity in the proximal posterior cerebral artery on the left, otherwise unremarkable MR angiography the brain. 4. Portable chest x-ray on 04/19/2018 - No new infiltrate noted. 5. CT abdomen and pelvis without contrast 04/20/2018 - No gross acute abnormality, aside from mild recent appearing compression of the T12 vertebral body, which is similar to 04/18/18. Nonurgent findings are similar as above. 6. CT chest without contrast 04/20/2018 - Dense left lower lobe infiltrate with lesser patchy infiltrates in the right upper and lower lobes. Small bilateral pleural effusions. 5 mm left lower lobe nodule, stable since 02/17/18, with a newly apparent 5 mm right middle lobe nodule. Mild new subcarinal lymphadenopathy. Interval median sternotomy and aortic valve replacement. Multiple new, but chronic appearing bilateral rib fractures. Mild anterior compression of the T12 vertebral body, appears recent. 7. Left lower extremity duplex ultrasound 04/21/2018 - Negative. Lower extremity duplex venous ultrasound. No evidence of deep venous thrombosis. 8. Portable chest x-ray on 04/22/2018 - Small but increased bilateral pleural effusions. PROGNOSIS: Stable. ACTIVITY: Per physical and occupational therapy recommendations. DIET: Soft mechanical. DISCHARGE PLAN: Problem: Managing health at home Goal: Improve health & wellness Instructions: Follow DC Instruction DISPOSITION: ARU. DISCHARGE INSTRUCTIONS: 1. Continued rehabilitation at ARU. 2. Continue current medical therapy. 3. Monitor INR daily due to Warfarin use. ITEMS TO FOLLOWUP ON ON OUTPATIENT: 1. Physical therapy. 2. Occupational therapy. DISCHARGE CONDITION: Stable. TIME SPENT ON DISCHARGE: Greater than 60 minutes. Vital Signs/I&Os Vital Signs Date Time Temp Pulse Resp B/P (MAP) Pulse Ox O2 Delivery O2 Flow Rate FiO2 04/25/18 12:00 97.6 85 22 132/73 (92) 95 Room Air 04/25/18 07:28 1.0 I&O- Last 24 Hours up to 6 AM 04/25/18 06:00 Intake Total 570 ml Output Total 1500 ml Balance -930 ml Laboratory Data Labs 24H Laboratory Tests 2 04/24/18 20:37: Bedside Glucose (Misc Panel) 238H 04/25/18 05:24: Nucleated Red Blood Cells % (auto) 0.0, Prothrombin Time 28.5H, Prothromb Time International Ratio 2.61, Anion Gap 12, Glomerular Filtration Rate 45.7, Blood Urea Nitrogen 35H, Creatinine 1.59H, Sodium Level 134L, Potassium Level 4.5#, Chloride Level 102, Carbon Dioxide Level 20L, Calcium Level 8.1L 04/25/18 11:33: Bedside Glucose (Misc Panel) 298H 04/25/18 13:11: Vancomycin Level Trough 20.5H CBC/BMP Laboratory Tests 04/25/18 05:24 Red Blood Count 2.52 L, Mean Corpuscular Volume 99.6 H, Mean Corpuscular Hemoglobin 32.5, Mean Corpuscular Hemoglobin Concent 32.7, Red Cell Distribution Width 19.0 H, Calcium Level 8.1 L FSBS Laboratory Tests Test 04/24/18 20:37 04/25/18 11:33 Range/Units Bedside Glucose (Misc Panel) 238 298 83-110 MG/DL Microbiology Microbiology 04/22/18 Blood Culture - Preliminary, Resulted No Growth after 72 hours. All specime... 04/22/18 Blood Culture - Preliminary, Resulted No Growth after 72 hours. All specime... 04/20/18 Blood Culture - Final, Complete NO GROWTH AFTER 5 DAYS 04/19/18 Blood Culture - Final, Complete NO GROWTH AFTER 5 DAYS 04/19/18 Blood Culture - Final, Complete Staph.aureus Methicillin Resis 04/20/18 MRSA Screen - Final, Complete Discharge Medications Scheduled Acetylcysteine (Acetylcysteine) 800 Mg/4 Ml Mehreen, 400 MG INH RBID Aspirin (Childrens Aspirin) 81 Mg Chew, 81 MG PO DAILY Citalopram Hydrobromide (Celexa) 10 Mg Tab, 10 MG PO DAILY Fenofibrate (Fenofibrate) 145 Mg Tab, 145 MG PO DAILY Furosemide (Furosemide) 20 Mg Tab, 20 MG PO DAILY Guaifenesin (Guaifenesin) 5 Ml Syrp, 5 ML PO QID Insulin Detemir (Levemir) 1 Units/0.01 Ml Susp, 5 UNITS SC QHS Insulin Human Lispro (Humalog) 1 Units/0.01 Ml Inj, 0 UNITS SC AC Insulin Human Lispro (Humalog) 1 Units/0.01 Ml Inj, 0 UNITS SC QHS Loratadine (Claritin) 10 Mg Tab, 10 MG PO DAILY Metoclopramide HCl (Metoclopramide HCl) 5 Mg Tab, 5 MG PO AC Metoprolol Tartrate (Lopressor) 50 Mg Tab, 50 MG PO BID Pantoprazole Sodium (Pantoprazole Sodium) 40 Mg Tab, 40 MG PO DAILY Warfarin Sod (Coumadin) 3 Mg Tab, 6 MG PO DAILY@17 [Docusate Sod/Senna] 1 TAB TAB, 2 TAB PO DAILY Scheduled PRN (Hydrocerin) 1 Cre Cre, 0 DOSE TOP BIDP PRN for Dry/Flaking (Cepacol Sore Throat Extra 15-3.6 mg) 1 Angella Angella, 1 ANGELLA PO Q2HP PRN for COUGH/SORE THROAT Acetaminophen (Acetaminophen) 160 Mg/5 Ml Mehreen, 650 MG PO Q4H PRN for FEVER Albuterol Sulfate (Albuterol Sulfate) 2.5 Mg/0.5 Ml Neb, 2.5 MG NEB Q6HP PRN for SOB/WHEEZING Dextrose (Dextrose 50%) 50 % Inj, 25 ML IV ASDIRECTED PRN for SEE LABEL COMMENTS Glucagon (Glucagen Diagnostic) 1 Mg Inj, 1 MG SC ASDIRECTED PRN for SEE LABEL COMMENTS Glucose (Glucose) 4 Gm Chw, 0 GM PO ASDIRECTED PRN for SEE LABEL COMMENTS Mineral Oil (Fleet Oil) 0 Mehreen, 1 EA NV DAILYPRN PRN for CONSTIPATION Allergies Coded Allergies: [place] (Verified Allergy, Severe, ANAPHYLAXIS, 11/09/14) Penicillins (Verified Allergy, Severe, ANAPHYLAXIS, 08/04/14) Metformin (Verified Allergy, Unknown, 02/16/18) Statins (Verified Allergy, Unknown, 02/16/18) Duloxetine (Unverified Adverse Reaction, Mild, N/V, 04/16/18) XU KEMP DO Apr 25, 2018 17:30
[2018-04-25] MEDS ORDERED: LEVEMIR (INSULIN DETEMIR) 1 UNITS/0.01ML SC SCH (21:00)
--- NOTE | 2018-04-26 07:09 | IPN ---
DATE: 04/25/2018 Mr. Bernard seems to be doing fairly well except for being sleepy. He denied any complaint of chest pain, shortness of breath, nausea, vomiting or diarrhea. He just stated that he was tired. Yesterday, he had a transesophageal echocardiogram with some sedation. He tolerated that well. He showed a well functioning aortic bioprosthetic valve with no evidence of vegetation. Labs: White count is 9.8, hemoglobin 8.2, hematocrit 25.1, platelets 116 with lowest being 54. Sodium 134, potassium 4.5, chloride 102, bicarb 20, BUN 35, creatinine 1.59, glucose 322, calcium 8.1, albumin 1.8. Blood culture one out of two sets was positive on April 19. On April 20, one blood culture was negative. On April 22, two sets of blood cultures were negative. Transesophageal echocardiogram (ROSEANN) with no evidence of vegetation, well functioning valve. Chest x-ray shows small but increased bilateral pleural effusions. Chest CT done on April 20 showed multifocal pneumonia and lower lobe infiltrates with lesser patchy infiltrates in the right upper and lower lobe. Pulmonary nodules are stable. Mild subcarinal adenopathy. IMPRESSION: 1. Multifocal pneumonia with methicillin-resistant Staphylococcus aureus (MRSA) bacteremia. The patient is being treated for MRSA bursa pneumonia with IV vancomycin 750 mg every 24 hours. Most recent vancomycin trough was 20.5 on April 25. The patient is doing well. Transesophageal echocardiogram showed no evidence of vegetation. My only concern is that the patient has a sed rate of 129 and a CRP of 23.6. ROSEANN was done 5 days after bacteremia and showed no vegetation. The fact that he only had transient bacteremia with only set that was positive out of two on April 19, being afebrile within 24 hours with negative blood cultures and improvement, makes the diagnosis of endocarditis very unlikely, but his aortic valve is very freshly placed and the patient is at very high risk of a complication if he gets an infection of his valve, and therefore I am somewhat reluctant to treat him for only 2 weeks. I will discuss the case with infectious disease at [facility] to make sure that 2 weeks of IV vancomycin will be sufficient in this patient with multiple complications. 2. Acute on chronic kidney disease. Seems to be improving. Creatinine is 1.59. Plan for the time being is to continue IV vancomycin at least until May 04. Monitor CBC, basic profile, vancomycin trough on Saturday, sed rate and CRP. Will review the case with infectious disease at [facility] prior to making final recommendations.
== END 2018-04-25 19:57 | DRG 871 ==
LOC: M ICU 05:46 → EEVIPCON 05:46 → M PCU 04-23 13:36
PROVIDERS: ADMIT Internal Medicine; ATTEND Internal Medicine
PROC: B246ZZ4 Ultrasonography of Right and Left Heart, Transesophageal (ICD-10-PCS; principal; 2018-04-24 17:00)
DX: A41.9 Sepsis, unspecified organism (principal); J69.0 Pneumonitis due to inhalation of food and vomit; I63.9 Cerebral infarction, unspecified; M48.54XA Collapsed vertebra, not elsewhere classified, thoracic region, initial encounter for fracture; I13.0 Hypertensive heart and chronic kidney disease with heart failure and stage 1 through stage 4 chronic kidney disease, or unspecified chronic kidney disease; E11.43 Type 2 diabetes mellitus with diabetic autonomic (poly)neuropathy; K59.00 Constipation, unspecified; I27.20 Pulmonary hypertension, unspecified; I48.0 Paroxysmal atrial fibrillation; Z95.1 Presence of aortocoronary bypass graft; Z95.2 Presence of prosthetic heart valve; I35.0 Nonrheumatic aortic (valve) stenosis; I25.10 Atherosclerotic heart disease of native coronary artery without angina pectoris; D69.6 Thrombocytopenia, unspecified; Z79.82 Long term (current) use of aspirin; Z79.899 Other long term (current) drug therapy; Z79.4 Long term (current) use of insulin; Z88.0 Allergy status to penicillin; Z88.8 Allergy status to other drugs, medicaments and biological substances; Z91.018 Allergy to other foods; I50.9 Heart failure, unspecified; I25.2 Old myocardial infarction; Z93.1 Gastrostomy status; Z79.01 Long term (current) use of 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s; N18.9 Chronic kidney disease, unspecified; G47.33 Obstructive sleep apnea (adult) (pediatric); E66.9 Obesity, unspecified

== ENCOUNTER 2018-04-25 16:24 | Inpatient (IN) | payer MEDICARE ==
[~2018-04-25] VITALS: Ht 177.8 cm; Wt 81.5 kg
[~2018-04-25 16:24] MED LIST changes: +ACET160S3 PO; +ACET20%4ML INH; +ALB2.5NEB NEB; +CELE10TA PO; +CEPA1LOZ2 PO; +CHIL81CH2 PO; +CITA-230 PO; +CLAR1TAB2 PO; +COUM1TAB19 PO; +Docusate Sod/Senna PO; +EUCE12CR TOP; +FENO145T13 GT; +FENO145T13 PO; +FLEETOIL PR; +FLUO40CA GT; +FLUTISP; +FURO20TA2 PO; +GUAI5EL PO; +HYDR-3910 GT; +INSUDET SC; +LOPR1TAB6 PO; +LORA-243 GT; +METO5TAB2 PO; +PANT40TA3 PO; +PERI0.126 MT; +SUCR10SS GT
[2018-04-25] MEDS ORDERED: CEPACOL LOZENGE PO PRN (17:00)
[2018-04-25] MEDS ORDERED: guaiFENesin 200 MG TAB PO PRN (17:00)
[2018-04-25] MEDS ORDERED: BISACODYL 10 MG SUPP PR PRN (17:00)
[2018-04-25] MEDS ORDERED: GLUCOSE 4 GM CHEW TABLET PO PRN (17:00)
[2018-04-25] MEDS ORDERED: ALBUTEROL 90 MCG/ACT 8GM HFA INHALER INH PRN (17:00)
[2018-04-25] MEDS ORDERED: DEXTROSE 50% 50 ML SYRINGE IV PRN (17:00)
[2018-04-25] MEDS ORDERED: GLUCAGON FOR INJ 1 MG VIAL (J1610) SC PRN (17:00)
[2018-04-25 18:15] VITALS: BP 158/79
[2018-04-25 20:00] VITALS: BP 140/78
[2018-04-25] MEDS: ACETYLCYSTEINE 10% 30 ML VIAL INH SCH (20:00)
[2018-04-25] MEDS: ALBUTEROL SULFATE 2.5 MG/0.5 ML INH NEB SOLN NEB PRN (20:58)
[2018-04-25] MEDS ORDERED: LEVEMIR (INSULIN DETEMIR) 1 UNITS/0.01ML SC SCH (21:00)
[2018-04-25] MEDS ORDERED: HumaLOG INSULIN (NovoLOG) PER UNIT SC SCH (21:00)
[2018-04-25] MEDS: BOUDREAUX'S BUTT PASTE 4OZ TOP SCH (22:18)
[2018-04-25] MEDS: FERROUS GLUCONATE 324 MG TAB PO SCH (22:44)
[2018-04-25] MEDS: METOCLOPRAMIDE 5 MG TAB PO SCH (22:44)
[2018-04-25] MEDS: METOPROLOL TART 50 MG TAB PO SCH (22:44)
[2018-04-25] MEDS: SENOKOT S TAB PO SCH (22:44)
[2018-04-26 06:00] VITALS: BP 135/70
[2018-04-26 07:54] LABS: BASO % 0.2 % (0.0-1.0); EOS # 0.1 10^3/uL (0.0-0.50); EOS % 0.8 % (0.0-3.0); HEMATOCRIT 23.1 % (42.0-52.0); HEMOGLOBIN 7.6 g/dl (13.5-17.5); LYMPH # 1.4 10^3/uL (1.5-4.5); MEAN CORPUSCULAR HEMOGLOBIN 32.2 pg (27.0-33.0); MEAN CORPUSCULAR HGB CONC 32.9 g/dl (32.0-36.5); MEAN CORPUSCULAR VOLUME 97.9 fl (80.0-96.0); MONO # 0.7 10^3/uL (0.0-0.8); MONO % 4.6 % (0.0-5.0); NEUTROPHILS # 12.7 10^3/uL (1.8-7.7); NEUTROPHILS % 81.5 % (36.0-66.0); PLATELET COUNT, AUTOMATED 150 10^3/uL (150-450); RED BLOOD COUNT 2.36 10^6/uL (4.30-6.10); WHITE BLOOD COUNT 15.6 10^3/uL (4.0-10.0)
[2018-04-26 07:56] LABS: ALBUMIN 1.8 GM/DL (3.2-5.2); BILIRUBIN,TOTAL 0.6 MG/DL (0.2-1.0); C REACTIVE PROTEIN QUANTITATIV 9.2 MG/DL (0.00-0.30); CALCIUM LEVEL 7.7 MG/DL (8.8-10.2); CREATININE FOR GFR 1.56 MG/DL (0.70-1.30); GLOMERULAR FILTRATION RATE 46.7 (>42); POTASSIUM SERUM 3.9 MEQ/L (3.5-5.1); TOTAL PROTEIN 6.3 GM/DL (6.4-8.2)
[2018-04-26] MEDS: ALBUTEROL SULFATE 2.5 MG/0.5 ML INH NEB SOLN NEB PRN (08:07)
[2018-04-26] MEDS: ACETYLCYSTEINE 10% 30 ML VIAL INH SCH (08:07)
[2018-04-26] MEDS: HumaLOG INSULIN (NovoLOG) PER UNIT SC SCH ×4 (09:30→22:27)
[2018-04-26] MEDS: ASPIRIN 81 MG ENTERIC TAB PO SCH (09:30)
[2018-04-26] MEDS: CitaloPRAM (CeleXA) 10 MG TABLET PO SCH (09:30)
[2018-04-26] MEDS: FENOFIBRATE 145 MG TAB (TRICOR) PO SCH (09:30)
[2018-04-26] MEDS: FERROUS GLUCONATE 324 MG TAB PO SCH ×2 (09:31→22:25)
[2018-04-26] MEDS: PANTOPRAZOLE 40MG TAB (PROTONIX) PO SCH (09:31)
[2018-04-26] MEDS: FUROSEMIDE 20 MG TAB PO SCH (09:31)
[2018-04-26] MEDS: METOPROLOL TART 50 MG TAB PO SCH ×2 (09:31→22:26)
[2018-04-26] MEDS: LORATADINE 10 MG TAB PO SCH (09:31)
[2018-04-26] MEDS: SENOKOT S TAB PO SCH ×2 (09:32→21:00)
[2018-04-26] MEDS: BOUDREAUX'S BUTT PASTE 4OZ TOP SCH ×3 (09:32→21:00)
[2018-04-26] MEDS: METOCLOPRAMIDE 5 MG TAB PO SCH ×4 (09:32→22:26)
[2018-04-26 10:18] LABS: INR 4.32; PROTHROMBIN TIME 42.5 SECONDS (12.1-14.4)
--- NOTE | 2018-04-26 11:28 | NUR ---
Pt seen upon admission to ARU for a clinical swallow evaluation to r/o aspiration. Cough noted prior to exam. Noted hoarse/breathy voice quality. Slow but purposeful and effective mastication. Inconsistent throat clear/mild cough noted s/p thin liquids. Recommend: Mechanical soft solids (level 3) and regular thin liquids. Please ensure Pt is in full upright position for all meals and medication administration. Oral care 3x a day. Addendum: 04/26/18 at 1141 by SOL ORTIZ [facility] Amended: Links added.
[2018-04-26 12:28] LABS: HEMATOCRIT 25.2 % (42.0-52.0)
[2018-04-26 14:00] VITALS: BP 119/69
--- NOTE | 2018-04-26 14:30 | IPNPDOC ---
Date Seen The patient was seen on 04/26/18. Progress Note SUBJECTIVE: Patient is a 73-year-old male with MRSA bacteremia, multifocal pneumonia, gastroparesis, and constipation. He is evaluated at bedside in ARU. He is currently receiving a nebulized treatment. Phlebotomy is also present to draw his morning INR. Speech therapy is also present. Patient states that he is well, but does not like getting blood draws and experiences anxiety associated with it. Denies chest pain, shortness of breath, abdominal pain, nausea, or vomiting. Brief synopsis of patient's [facility] and [facility] course - patient was transferred from [facility] to acute rehabilitation on 04/11/2018. Prior to his discharge from [facility] he had initially been seen at [facility] on 02/17/2018 for syncope. Patient was found to have right-sided pleural effusion with a severe aortic stenosis. He sustained cardiac arrest 2. He was intubated, right-sided chest tube was inserted, right-sided femoral arterial line placed, and left-sided central line placed in femoral vein. Head CT was obtained which did not reveal any acute hemorrhage. He was subsequently transferred to [facility]. A transesophageal echocardiogram was obtained which revealed left ejection fraction 40%. Patient underwent a 6 vessel coronary artery bypass graft on 02/21/2018 with an aortic valve replacement. She remained intubated for vasopressor/inotropic support. An intra-aortic balloon pump was placed on 02/24/2018. Started on empiric antibiotics for suspected pneumonia. In light of renal failure PermCath was placed for CRRT. Developed hugh ctional rhythm with bradycardia with inability to tolerate beta blockers. This resolved. PEG tube was placed on 03/14/2018 with extubation on 04/04/2018. Patient developed postoperative atrial fibrillation was started on Coumadin. Was also found to be thrombocytopenic and treated with Argatroban. Chest tubes removed on 04/10/2018. Brief synopsis of patient's ARU course - patient admitted to a review on 04/11/2018. Remained on PEG feedings at that time. Metoprolol and Warfarin continued; however, patient appeared to remain subtherapeutic until 04/17/2018. is concerned with patient's right eye blurry vision and an MRI brain was obtained 04/14/2018 which did reveal an acute right-sided frontal infarction and an acute left-sided parietal infarction. Patient remained on aspirin and Coumad in. He was started on fenofibrate secondary to statin allergy. Patient was thrombocytopenic for which hematology/oncology was consulted. Zantac was discontinued. His diet was advanced as no penetration or aspiration was noted on speech evaluation. Patient developed nausea with chest discomfort 04/18/2018. He was given nitroglycerin which improved his chest discomfort. He is noted to have an elevated systolic pressure was given morphine. He remained diaphoretic with nausea and vomiting that did not improve with Zofran or Phenergan. Due to his significant cardiac history decision was made to transfer the patient to the ICU for further evaluation. Brief synopsis of patient's acute [facility] hospital course - Patient was transferred to the ICU for further evaluation. Was given Nitroglycerin, Morphine, and oxygen with relief of chest discomfort. Troponins were trended and were negative. Restarted patient's Aspirin and continued patient's Metoprolol. No evidence of ischemia on EKG. Cardiology was consulted. Recommended possible lifelong anticoagulation based multiple ischemic strokes noted on imaging. Abdominal imaging revealed possible slow colonic transit based on retained contrast form esophagram completed on 04/16/18 and constipation. Administered mineral oil enema, Magnesium Citrate, MiraLAX. Continued Protonix and Carafate. Zofran and Phenergan for nausea. General surgery consulted. Metoclopramide was started for probable underlying gastroparesis with improvement in patient's symptoms. Speech therapy consulted and recommended a soft mechanical diet. T12 wedge compression fracture noted on imaging. Orthopedics was consulted with no intervention recommended. Patient may be weight-bearing as tolerated. If pain develops, orthopedics recommends repeat imaging and/or using a thoracolumbar ortho-assist. Patient was on Warfarin 8mg for post-operative atrial fibr illation and was subtherapeutic until 04/17/18, but then became supratherapeutic. Vitamin K was administered. Became subtherapeutic. Restarted Warfarin at 4mg and increased to 6mg based on daily INR levels. Patient is currently therapeutic. Brain MRI ordered in ARU did reveal acute right frontal and left parietal lobe infarctions. Started on Fenofibrate. Ordered follow-up imaging as resulted below. Started Aspirin, but discontinued due to worsening thrombocytopenia, and restarted once it improved. Neurology consulted. Recommend out-patient follow-up in 1 month after discharge. Patient found to be thrombocytopenic. Peripheral smear and iron studies revealed anemia of chronic disease. Hematology/oncology consulted. Thrombocytopenia worsened. HIT antibodies were ordered (which were positive; although serotonin release assay was negative) and Aspirin was discontinued. Patient also noted to have blurry vision with ophthalmology consulted. Recommended out-patient follow-up. Patient became septic from possible underlying multifocal pneumonia. Started on Vancomycin and Cefepime. Cefepime eventually discontinued. MRSA screen (negative), urinalysis (negative), sputum gram stain and culture ordered. Started on EZPap, incentive spirometer, and Mucomyst (although patient has been refusing it). Continued Guaifenesin. One blood culture tube from 04/19/18 was positive for MRSA. Subsequent blood cultures were negative. Infectious disease was consulted. ROSEANN was recommended and was found to be negative. Cefepime was discontinued. Since ROSEANN was negative, recommendation was to continue Vancomycin from last negative blood culture until 05/04/18. Developed urinary retention. Urinary catheter inserted and eventually discontinued with patient able to void without difficulty. Ramipril was on hold during acute hospitalization due to acute on chronic kidney disease. Physical and occupational therapy were ordered and patient participated. Improvements made in therapy sessions with recommendation for patient to return to ARU for continued rehabilitation once m edically stable. Patient made clinical and symptomatic improvements and was stable for transfer to ARU for continued rehabilitation. OBJECTIVE PHYSICAL EXAMINATION: VITAL SIGNS: Please see below. GENERAL: Pale elderly male, alert and conversant, laying in hospital bed with nebulizer mask in place, answers questions appropriately, no acute distress. HEENT: Normocephalic, PERRL, EOMI, oral mucosa appears pink and moist, nasal septum is midline, nares are patent. CARDIOVASCULAR: Regular rate and rhythm, normal S1 and S2, no murmur, rub, healed midline anterior mediastinal surgical incision. RESPIRATORY: Improved crackles appreciated on the left side of the posterior chest, course breath sounds noted in the superior portions of the posterior chest, diminished pulmonary auscultation in the right lower lobes, no wheeze or rhonchi. ABDOMINAL: Soft, nontender, nondistended, bowel sounds appreciated, PEG tube with 4x4 in place around PEG tube insertion. EXTREMITIES: Purple confluent ecchymoses noted on left lower extremity that appear almost circumferential around the ankle extending up the leg, eschar on medial aspect of left lower leg from vein grafting, skin is dry, no peripheral edema, no clubbing, no cyanosis. NEUROLOGICAL: No focal neurological deficits. PSYCHOLOGICAL: Mood and affect appropriate. LABORATORY DATA, IMAGING STUDIES, MICROBIOLOGY: Please see below. Modified barium cookie swallow on 04/14/2018 - no evidence of penetration or aspiration. MRI brain without contrast on 04/14/2018 - small acute right frontal and left parietal lobe infarctions. Small subacute right parietal lobe infarction. Small vessel ischemic disease. Mild volume loss. Chest x-ray, two-view, PA and lateral 04/16/2018 - status post aortic valve replacement. 4.5 cm pleural opacity at the right base, mild wedge compression fracture deformity T12. CT abdomen and pelvis without contrast on 04/18/2018 - colon opacified from previously administered oral contrast, no obstructive gastrointestinal lesion, mildly distended urinary bladder, dystrophic calcifications of the prostate, no hydronephrosis, small bilateral pleural effusions, gastrostomy tube. Brain MRA without contrast a without contrast on 04/18/2018 - mild atherosclerotic irregularity in the proximal posterior cerebral artery on the left, otherwise unremarkable. Portable chest x-ray on 04/19/2018 - no new infiltrate. CT chest without contrast 04/20/2018 - Dense left lower lobe infiltrate with lesser patchy infiltrates in the right upper and lower lobes. Small bilateral pleural effusions. 5 mm left lower lobe nodule (stable) with a newly apparent 5 mm right middle lobe nodule. Mild new subcarinal lymphadenopathy, could be reactive. Interval median sternotomy and aortic valve replacement. Multiple new, but chronic appearing bilateral rib fractures. Mild anterior compression of the T12 vertebral body, appears recent. Left lower extremity duplex ultrasound on 04/21/2018 - Negative left lower extremity duplex venous ultrasound. Portable chest x-ray on 04/22/2018 - Small, but increased bilateral pleural effusions. Echocardiogram - mild left ventricular hypertrophy, grade 2 diastolic dysfunction, preserved left ventricular systolic function, bioprosthetic aortic valve, mild mitral and tricuspid insufficiency, moderate pulmonary hypertension. DVT prophylaxis ordered?: Warfarin 6 mg by mouth daily; currently on hold due to supratherapeutic INR. 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 PROBLEMS: 1. Sepsis secondary to multifocal pneumonia with MRSA bacteremia: Blood culture from 04/19/2018 positive for methicillin resistant Staphylococcus aureus (MRSA). Continue Vancomycin 1gm IV every 24 hours with completion on 05/04/2018. TTE negative for vegetations. PICC line has been ordered. 2. Thrombocytopenia and anemia: Significantly improved thrombocytopenia. Peripheral smear from 04/21/2018 revealed underlying chronic anemia. B12 level was above normal. Folate was within normal limits. Iron studies revealed anemia of chronic disease. Heparin-induced antibodies were positive at 1.155. Serotonin release assays are negative. Warfarin on hold due to supratherapeutic INR. Monitor daily INR and adjust Warfarin dose based on result. Continue ASA. Continue Ferrous Gluconate. 3. Acute on chronic kidney disease: Continue Lasix 20mg by mouth daily. Creatinine appears at baseline. Could consider adding Ramipril should blood pressure require management. 4. Diabetes mellitus with probably gastroparesis: Continue Metoclopramide 5mg by mouth before meals. Continue with mechanical soft diet. Follow speech therapy recommendations. Modified barium swallow study on 04/14/2018 which revealed "mild pharyngeal phase dysphagia characterized by vallecular pooling which was only cleared with compensatory strategy use." Patient has been trained on compensatory strategies and uses them. Added Levemir 5 units subcutaneously nightly. Continue hypoglycemic protocol, fingersticks before meals and at bed time, and insulin sliding scale. 5. Constipation: Continue with Senokot S scheduled daily. 6. Acute right frontal and acute left parietal infarctions: Noted on MRI brain from 04/14/2018. On Warfarin for post-operative atrial fibrillation; however, on hold due to supratherapeutic INR. Monitor daily for adjustments. Continue Aspirin and Fenofibrate. 7. Coronary artery disease status post 6 vessel coronary artery bypass graft: Continue metoprolol 50 mg by mouth twice daily. Continue aspirin 81 mg by mouth daily. Troponins have been <0.02. No evidence of acute ischemia on EKG. 8. Postoperative atrial fibrillation: Warfarin 6mg by mouth daily on hold due to supratherapeutic INR. Monitor INR daily and adjust Warfarin as needed. 9. Severe aortic stenosis status post aortic valve replacement: Stable. TTE revealed stable prosthetic valve. 10. Mild wedge compression fracture deformity, T12: Weightbearing as tolerated. If patient does experience pain the suggestion is to repeat imaging and/or use a thoracolumbar orthopedic assist. 11. Hypertension: Continue Lasix. Restart Ramipril is blood pressure requires further management. Creatinine appears at baseline. 12. Depression: Continue citalopram 10 mg daily. 13. Allergies: Continue loratadine 10 mg daily and Robitussin 5 mg four times daily. 14. Gastroesophageal reflux disease: Continue Protonix 40mg by mouth daily. 15. Critical illness myopathy: Requiring PT/OT/ST. Currently admitted to ARU for continued rehabilitation. Defer further recommendations to physiotherapist and treatment team. DISPOSITION: Further improvements with ARU team, continued IV antibiotic treatment for MRSA bacteremia, PICC line placement. VS, I&O, 24H, [facility] Vital Signs/I&O Vital Signs Date Time Temp Pulse Resp B/P (MAP) Pulse Ox O2 Delivery O2 Flow Rate FiO2 04/26/18 09:31 93 135/70 04/26/18 06:00 98.6 18 91 Room Air I&O- Last 24 Hours up to 6 AM 04/26/18 06:00 Intake Total 240 ml Output Total 0 ml Balance 240 ml Laboratory Data 24H LABS Laboratory Tests 2 04/25/18 20:24: Bedside Glucose (Misc Panel) 180H 04/26/18 05:16: Bedside Glucose (Misc Panel) 335H 04/26/18 06:24: Immature Granulocyte % (Auto) 3.9H, White Blood Count 15.6H, Red Blood Count 2.36L, Hemoglobin 7.6L, Hematocrit 23.1L, Mean Corpuscular Volume 97.9H, Mean Corpuscular Hemoglobin 32.2, Mean Corpuscular Hemoglobin Concent 32.9, Red Cell Distribution Width 19.7H, Platelet Count 150, Neutrophils (%) (Auto) 81.5H, Lymphocytes (%) (Auto) 9.0L, Monocytes (%) (Auto) 4.6, Eosinophils (%) (Auto) 0.8, Basophils (%) (Auto) 0.2, Neutrophils # (Auto) 12.7H, Lymphocytes # (Auto) 1.4L, Monocytes # (Auto) 0.7, Eosinophils # (Auto) 0.1, Basophils # (Auto) 0.0, Nucleated Red Blood Cells % (auto) 0.0, Anion Gap 7L, Glomerular Filtration Rate 46.7, Blood Urea Nitrogen 32H, Creatinine 1.56H, Sodium Level 135L, Potassium Level 3.9, Chloride Level 105, Carbon Dioxide Level 23, Calcium Level 7.7L, Aspartate Amino Transf (AST/SGOT) 12, Alanine Aminotransferase (ALT/SGPT) 10L, Alkaline Phosphatase 85, Total Bilirubin 0.6, Total Protein 6.3L, Albumin 1.8L, C-Reactive Protein, Quantitative 9.20H, Albumin/Globulin Ratio 0.40L 04/26/18 09:30: Prothrombin Time 42.5H, Prothromb Time International Ratio 4.32 04/26/18 11:44: Bedside Glucose (Misc Panel) 277H CBC/BMP Laboratory Tests 04/26/18 06:24 Red Blood Count 2.36 L, Mean Corpuscular Volume 97.9 H, Mean Corpuscular Hemoglobin 32.2, Mean Corpuscular Hemoglobin Concent 32.9, Red Cell Distribution Width 19.7 H, Neutrophils (%) (Auto) 81.5 H, Lymphocytes (%) (Auto) 9.0 L, Monocytes (%) (Auto) 4.6, Eosinophils (%) (Auto) 0.8, Basophils (%) (Auto) 0.2, Neutrophils # (Auto) 12.7 H, Lymphocytes # (Auto) 1.4 L, Monocytes # (Auto) 0.7, Eosinophils # (Auto) 0.1, Basophils # (Auto) 0.0, Calcium Level 7.7 L, Aspartate Amino Transf (AST/SGOT) 12, Alanine Aminotransferase (ALT/SGPT) 10 L, Alkaline Phosphatase 85, Total Bilirubin 0.6, Total Protein 6.3 L, Albumin 1.8 L 04/26/18 12:15 GME ATTESTATION GME ATTESTATION My faculty preceptor for this patient encounter was physically present during the encounter and was fully available. All aspects of the patient interview, examination, medical decision making process, and medical care plan development were reviewed and approved by the faculty preceptor. The faculty preceptor is aware and concurs with the plan as stated in the body of this note and will attest to such by his/her cosignature. ATTENDING NOTE I, Delilah Neal, have both independently examined this patient as well as reviewed the documentation. I have discussed in detail with the resident the findings and plan of treatment as documented in the residents documentation. I will continue to follow the patient and offer further guidance to the patients care as necessary during this hospital stay. XU KEMP DO Apr 26, 2018 14:30 DELILAH NEAL MD May 21, 2018 19:05
[2018-04-26] MEDS: VANCOMYCIN HCL 750 MG, VIAL MATE ADAPTER 1 EACH in D5W 250 ML IV SCH (15:34)
--- NOTE | 2018-04-26 15:39 | HPEPDOC ---
Horse Trainer Note DATE OF ADMISSION: Apr 25, 2018 at 18:15 SOURCE OF ADMISSION INFORMATION: [facility] records, patient SOURCE OF ADMISSION INFORMATION: Patient and [place] [facility] CHIEF COMPLAINT: Multifocal MRSA pneumonia in setting of debility secondary to CABG, AVR, and vent-dependent respiratory failure and recently diagnosed CVA HISTORY OF PRESENT ILLNESS: 73M pmh Aortic stenosis, CAD, DM2, CKD who presented initially to [facility] ED with a syncopal episode and went into cardiac arrest twice, was resuscitated and transferred to [facility] on vasopressors. He was admitted to the ICU where a chest tube was placed for a right sided pleural effusion. Cardiology was consulted for severe aortic stenosis and EF of 40% noted on his ROSEANN. He underwent a 6 vessel CABG on 02-21-18 in addition to an aortic valve replacement performed by Dr. Mccloud. He continued to require ventilatory and vasopressors/inotrope support and an intra-aortic balloon pump was placed on 02-24-18. There was concern for a possible pneumonia for which he was placed on empiric antibiotics. He was seen by renal for worsening creatinine and a had PermCath placement for dialysis in addition to being diuresed. He had episodes of junctional rhythm with bradycardia and was unable to tolerate beta-blockers for many days, however this did resolve. He had a PEG tube placed on 03-14-18 and he was weaned off of the vent with eventual decannulation on 04-04-18. He developed post-op Afib and was started on COumadin. Additionally he had thrombocytopenaia and was treated with argatroban. On POD43 he was transferred out of the ICU, chest tubes removed on 04-10-18, was evaluated by therapy and found to have significant deconditioning and deemed medically appropriate for discharge to ARU on 04-11-18. During his initial rehab stay his requested an MRI of his brain because she was concerned he might have had a stroke at [facility] where imaging of the brain was not performed, and so MRI on 04-14-18 was ordered revealing, "small acute right frontal and left parietal lobe infarc tions. Small subacute right parietal lobe infarction. Small vessel ischemic disease. Mild volume loss." Patient had no focal deficits or sensory impairments at the time, his dysphagia was presumed to be from terminal supervisor ventilation and likely critical illness myopathy, but had improved immediately on admission to ARU once po trials were started. He was started on Fenofibrate, continued on ASA and Coumadin for his recently diagnosed Afib for stroke prevention. He performed well in therapy, however his thrombocytopenia worsened, initially infectious work-up was negative, but he had episodes of vomiting with chills, then urgently transferred out to the ICU on 04-18-18 for chest pain for NSTEMI work-up where ultimately he was not found to have elevated cardiac enzymes. However, blood cultures on 04-19-[address] chest revealed multifocal pneumonia, "Dense left lower lobe infiltrate with lesser patchy infiltrates in the right upper and lower lobes. Small bilateral pleural effusions. 5 mm left lower lobe nodule (stable) with a newly apparent 5 mm right middle lobe nodule. Mild new ren bcarinal lymphadenopathy, could be reactive. Interval median sternotomy and aortic valve replacement. Multiple new, but chronic appearing bilateral rib fractures. Mild anterior compression of the T12 vertebral body, appears recent" and he was started on IV Vancomycin. He had a supratherapeutic INR, was given vitamin K, had worsening thrombocytopenia for which Hematology recommended discontinuing any heparin flushes and his thrombocytopenia gradually improved. Infectious disease recommended a ROSEANN to rule out vegetations which on 04-24-18 was negative for vegetations. His leuokocytosis improved, he was re-evaluated by therapy and deemed medically appropriate for discharge to ARU on 04-25-18. REVIEW OF SYSTEMS: The following is a completed review of systems and has been reviewed. Review of systems otherwise unremarkable. PAIN: Patient self reports no pain EYES: Negative for recent vision changes or pain EARS, NOSE, & THROAT: blurred vision in right eye (for 2 months), mild dysphagia, +sore throat CARDIOVASCULAR: denies chest pain or palpitations, +CABG and AVR PULMONARY: Negative. Denies shortness of breath, +trach stoma GASTROINTESTINAL: Negative for diarrhea/constipation, +PEG, +nausea with meals GENITOURINARY: Negative for dysuria MUSCULOSKELETAL: general weakness NEUROLOGICAL: no seizure or tremor SKIN: multiple healed chest tube incisions, sternotomy scar, trach stoma, PEG s ite, sacral ulcer PSYCHIATRIC: Unremarkable All other review of systems found to be negative. PAST MEDICAL HISTORY: Aortic stenosis, CAD, DM2, CKD, HTN, recent respiratory failure, HTN, multifocal PNA, CVAs PAST SURGICAL HISTORY: CABGx6 vessels, and AVR , left LE vein harvesting ALLERGIES: Please see below. MEDICATIONS: Please see below. 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 GENERAL: Pleasant and cooperative. No acute distress. HEENT: PERRL. Extraocular movements intact. Clear conjunctiva, +trach stoma CARDIOVASCULAR: Irregular rate and rhythm. No murmurs, rubs, or gallops, +sternal incision-healed LUNGS: Clear to auscultation bilaterally. No wheezes. +LLL rhonchi ABDOMEN: Soft, nontender, nondistended. Positive bowel sounds., +PEG skin with exudate NEUROLOGICAL: Alert and oriented times three. Cranial nerves II through XII grossly intact. Sensation grossly intact EXTREMITIES: 5-\\5 strength bilateral upper extremities. 5-\\5 strength right lower extremity. 5-/5 strength in left lower extremity. intact range of motion in left lower extremity SKIN: bilateral chest tube incisions healing well, +sacral stage 1 ulcer, trach site -diffuse echymosis in UE and abdomen with bilat UE petechia IMAGING: Imaging documentation personally reviewed by record FUNCTIONAL STATUS: Premorbid: Independent with all activities of daily life as well as mobility On Admission: Min Assist for ambulation with RW, mid assist for bed mobility and CG for functional transfers. GOALS: Mod-I with RW for ambulation, Mod for grooming, bathing, dressing, showering, medical optimization, family training, assess for DMEs. ASSESSMENT:73-year-old M with past medical history of DM and aortic stenosis who presents status post CABGx6, aortic valve replacement complicated by long hospital course s/p vent-dependence and PEG for dysphagia admitted for debility secondary to multifocal MRSA pneumonia of recent 6vessel CABG, AVR, and vent-dep endent respiratory failure and recently diagnosed CVAs. PLAN: 1. 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 Neuro: diagnosed with Acute right frontal and acute left parietal infarctions on 04-14-18 sustained at [facility] -Carotid ultrasound revealed bilateral 16-49% internal carotid artery narrowing. -Brain MRA reveals mild atherosclerotic irregularity in the proximal posterior cerebral artery on the left. -continue Coumadin for Afib, ASA, and Fenofribrate (allergy to satins) for secondary stroke prevention 2. CArdio: s/p CABG6 vessel and AVR, TTE positive for diastolic CHF, ROSEANN 04-24-18 negative for vegetations, recently diagnosed post-op Afib continue beta-christian, coumadin and ASA 3. Resp: Sepsis secondary to Multifocal PNA with MRSA bacteremia on Vancomycin, ID following, recs appreciated-DUonebs 4. Endo: pmh DM with possible gastropareisis, continue insulin therapy and Metoclopramide pre-meals, encouraging smaller meals for possible SMA syndrome in setting of recent weight loss, will monitor and pursue further work-up if post- prandial cramping and nausea persists. 5. : f/u admission UA and Ucx, monitor PVRs 6. DVT ppx: on Coumadin, recent Dopplers negative for DVT, TEds 7. Ortho: T12 compression fracture, no surgery recommended 8. GI: protonix for ppx, will defer PEG removal for [facility] surgeon in setting of fluctuating INRs and thrombocytopenia 9. Skin: daily PEG site cleaning, and butt paste to sacrum with turning q2h 10. Dispo: TBD POST ADMISSION PHYSICIAN EVALUATION: Medical and functional status: Description of medical status, medical assessment: As above. Rehabilitation diagnosis and current and prior cold morbid medical conditions as above. Risk of complications and plans to mitigate them as above. Description of functional status current status is as above. Prior status as above. Status compared to preadmission: There are no clinically significant differences between the patient's current status and the information described on the preadmission screening document. Treatment plan anticipated: Treatment plan is as described above. Required dis ciplines including physical therapy, occupational therapy, others as noted above. Intensity of services: 3 hours a day, 6 days a week. Special considerations: There are no specific special or safety considerations that would likely preclude immediate implementation of an intensive rehabilitation program or subsequently influence the plan of care ATTESTATION: Considering all the information above, it is my best judgment that this patient requires intensive rehabilitation therapy as described above and an inpatient hospital environment due to the complexity of nursing, medical, and rehabilitation needs required by the patient. Furthermore, this patient can reasonably be expected to participate in an benefit from an inpatient rehabilitation stay with an interdisciplinary team approach to the delivery of rehabilitation care under the direction and supervision of rehabilitation physician PROGNOSIS: Good ESTIMATED LENGTH OF STAY:14-18 days. PROJECTED DISCHARGE DESTINATION: Home with family support and any durable medical equipment required to increase functional safety and mobility. TIME SPENT COUNSELING AND COORDINATING INITIAL CARE: Greater than 70 minutes. Vital Signs Vital Sign - Last 24 Hours 04/25/18 04/25/18 04/25/18 04/26/18 18:15 20:00 22:44 06:00 Temp 97.2 98.3 98.6 Pulse 82 88 84 93 Resp 15 17 18 B/P (MAP) 158/79 (105) 140/78 (98) 118/60 135/70 (91) Pulse Ox 97 98 91 O2 Delivery Room Air Room Air Room Air 04/26/18 09:31 Pulse 93 B/P (MAP) 135/70 Laboratory Data CBC/BMP Laboratory Tests 04/26/18 06:24 Red Blood Count 2.36 L, Mean Corpuscular Volume 97.9 H, Mean Corpuscular Hemoglobin 32.2, Mean Corpuscular Hemoglobin Concent 32.9, Red Cell Distribution Width 19.7 H, Neutrophils (%) (Auto) 81.5 H, Lymphocytes (%) (Auto) 9.0 L, Monocytes (%) (Auto) 4.6, Eosinophils (%) (Auto) 0.8, Basophils (%) (Auto) 0.2, Neutrophils # (Auto) 12.7 H, Lymphocytes # (Auto) 1.4 L, Monocytes # (Auto) 0.7, Eosinophils # (Auto) 0.1, Basophils # (Auto) 0.0, Calcium Level 7.7 L, Aspartate Amino Transf (AST/SGOT) 12, Alanine Aminotransferase (ALT/SGPT) 10 L, Alkaline Phosphatase 85, Total Bilirubin 0.6, Total Protein 6.3 L, Albumin 1.8 L 04/26/18 12:15 Labs 24H Laboratory Tests 2 04/25/18 20:24: Bedside Glucose (Misc Panel) 180H 04/26/18 05:16: Bedside Glucose (Misc Panel) 335H 04/26/18 06:24: Immature Granulocyte % (Auto) 3.9H, White Blood Count 15.6H, Red Blood Count 2.36L, Hemoglobin 7.6L, Hematocrit 23.1L, Mean Corpuscular Volume 97.9H, Mean Corpuscular Hemoglobin 32.2, Mean Corpuscular Hemoglobin Concent 32.9, Red Cell Distribution Width 19.7H, Platelet Count 150, Neutrophils (%) (Auto) 81.5H, Lymphocytes (%) (Auto) 9.0L, Monocytes (%) (Auto) 4.6, Eosinophils (%) (Auto) 0.8, Basophils (%) (Auto) 0.2, Neutrophils # (Auto) 12.7H, Lymphocytes # (Auto) 1.4L, Monocytes # (Auto) 0.7, Eosinophils # (Auto) 0.1, Basophils # (Auto) 0.0, Nucleated Red Blood Cells % (auto) 0.0, Anion Gap 7L, Glomerular Filtration Rate 46.7, Blood Urea Nitrogen 32H, Creatinine 1.56H, Sodium Level 135L, Potassium Level 3.9, Chloride Level 105, Carbon Dioxide Level 23, Calcium Level 7.7L, Aspartate Amino Transf (AST/SGOT) 12, Alanine Aminotransferase (ALT/SGPT) 10L, Alkaline Phosphatase 85, Total Bilirubin 0.6, Total Protein 6.3L, Albumin 1.8L, C-Reactive Protein, Quantitative 9.20H, Albumin/Globulin Ratio 0.40L 04/26/18 09:30: Prothrombin Time 42.5H, Prothromb Time International Ratio 4.32 04/26/18 11:44: Bedside Glucose (Misc Panel) 277H FSBS Laboratory Tests Test 04/25/18 20:24 04/26/18 05:16 04/26/18 11:44 Range/Units Bedside Glucose (Misc Panel) 180 335 277 83-110 MG/DL Home Medications Scheduled Acetylcysteine (Acetylcysteine) 800 Mg/4 Ml Mehreen, 400 MG INH RBID Aspirin (Childrens Aspirin) 81 Mg Chew, 81 MG PO DAILY Citalopram Hydrobromide (Celexa) 10 Mg Tab, 10 MG PO DAILY Fenofibrate (Fenofibrate) 145 Mg Tab, 145 MG PO DAILY Furosemide (Furosemide) 20 Mg Tab, 20 MG PO DAILY Guaifenesin (Guaifenesin) 5 Ml Syrp, 5 ML PO QID Insulin Detemir (Levemir) 1 Units/0.01 Ml Susp, 5 UNITS SC QHS Insulin Human Lispro (Humalog) 1 Units/0.01 Ml Inj, 0 UNITS SC AC Insulin Human Lispro (Humalog) 1 Units/0.01 Ml Inj, 0 UNITS SC QHS Loratadine (Claritin) 10 Mg Tab, 10 MG PO DAILY Metoclopramide HCl (Metoclopramide HCl) 5 Mg Tab, 5 MG PO AC Metoprolol Tartrate (Lopressor) 50 Mg Tab, 50 MG PO BID Pantoprazole Sodium (Pantoprazole Sodium) 40 Mg Tab, 40 MG PO DAILY Warfarin Sod (Coumadin) 3 Mg Tab, 6 MG PO DAILY@17 [Docusate Sod/Senna] 1 TAB TAB, 2 TAB PO DAILY Scheduled PRN (Hydrocerin) 1 Cre Cre, 0 DOSE TOP BIDP PRN for Dry/Flaking (Cepacol Sore Throat Extra 15-3.6 mg) 1 Angella Angella, 1 ANGELLA PO Q2HP PRN for COUGH/SORE THROAT Acetaminophen (Acetaminophen) 160 Mg/5 Ml Mehreen, 650 MG PO Q4H PRN for FEVER Albuterol Sulfate (Albuterol Sulfate) 2.5 Mg/0.5 Ml Neb, 2.5 MG NEB Q6HP PRN for SOB/WHEEZING Dextrose (Dextrose 50%) 50 % Inj, 25 ML IV ASDIRECTED PRN for SEE LABEL COMMENTS Glucagon (Glucagen Diagnostic) 1 Mg Inj, 1 MG SC ASDIRECTED PRN for SEE LABEL COMMENTS Glucose (Glucose) 4 Gm Chw, 0 GM PO ASDIRECTED PRN for SEE LABEL COMMENTS Mineral Oil (Fleet Oil) 0 Mehreen, 1 EA RI DAILYPRN PRN for CONSTIPATION Allergies Coded Allergies: [place] (Verified Allergy, Severe, ANAPHYLAXIS, 11/09/14) Penicillins (Verified Allergy, Severe, ANAPHYLAXIS, 08/04/14) Metformin (Verified Allergy, Unknown, 02/16/18) Statins (Verified Allergy, Unknown, 02/16/18) Duloxetine (Unverified Adverse Reaction, Mild, N/V, 04/16/18) CACHORRO MEDEL MD Apr 26, 2018 14:26
[2018-04-26] MEDS: SODIUM CHLORIDE NASAL 0.65% SPRAY BTL (OCEAN) SCH ×2 (16:00→22:26)
[2018-04-26] MEDS ORDERED: WARFARIN SOD 3 MG TAB PO SCH (17:00)
[2018-04-26] MEDS: IPRATROPIUM 0.5MG/ALBUTEROL 2.5MG INH SOL UD 3ML (DUONEB)(J7620) NEB SCH (19:53)
[2018-04-26 20:00] VITALS: BP 116/61
[2018-04-26] MEDS: LEVEMIR (INSULIN DETEMIR) 1 UNITS/0.01ML SC SCH (22:27)
[2018-04-27 06:00] VITALS: BP 138/66
[2018-04-27 06:22] LABS: BASO % 0.3 % (0.0-1.0); EOS # 0.3 10^3/uL (0.0-0.50); EOS % 1.8 % (0.0-3.0); HEMATOCRIT 22.9 % (42.0-52.0); HEMOGLOBIN 7.6 g/dl (13.5-17.5); LYMPH # 1.9 10^3/uL (1.5-4.5); LYMPH % 13.1 % (24.0-44.0); MEAN CORPUSCULAR HEMOGLOBIN 32.9 pg (27.0-33.0); MEAN CORPUSCULAR HGB CONC 33.2 g/dl (32.0-36.5); MEAN CORPUSCULAR VOLUME 99.1 fl (80.0-96.0); MONO # 0.7 10^3/uL (0.0-0.8); MONO % 5.2 % (0.0-5.0); NEUTROPHILS # 10.8 10^3/uL (1.8-7.7); NEUTROPHILS % 75.8 % (36.0-66.0); PLATELET COUNT, AUTOMATED 151 10^3/uL (150-450); RED BLOOD COUNT 2.31 10^6/uL (4.30-6.10); WHITE BLOOD COUNT 14.2 10^3/uL (4.0-10.0)
[2018-04-27 06:32] LABS: INR 3.54; PROTHROMBIN TIME 36.3 SECONDS (12.1-14.4)
[2018-04-27 06:50] LABS: CALCIUM LEVEL 7.9 MG/DL (8.8-10.2); CREATININE FOR GFR 1.45 MG/DL (0.70-1.30); GLOMERULAR FILTRATION RATE 50.8 (>42); POTASSIUM SERUM 3.6 MEQ/L (3.5-5.1)
[2018-04-27] MEDS: IPRATROPIUM 0.5MG/ALBUTEROL 2.5MG INH SOL UD 3ML (DUONEB)(J7620) NEB SCH ×2 (07:23→20:00)
[2018-04-27] MEDS: FERROUS GLUCONATE 324 MG TAB PO SCH ×2 (09:00→22:18)
[2018-04-27] MEDS: SODIUM CHLORIDE NASAL 0.65% SPRAY BTL (OCEAN) SCH ×3 (09:00→22:20)
[2018-04-27] MEDS: PANTOPRAZOLE 40MG TAB (PROTONIX) PO SCH (09:04)
[2018-04-27] MEDS: FENOFIBRATE 145 MG TAB (TRICOR) PO SCH (09:05)
[2018-04-27] MEDS: HumaLOG INSULIN (NovoLOG) PER UNIT SC SCH ×4 (09:05→21:00)
[2018-04-27] MEDS: CitaloPRAM (CeleXA) 10 MG TABLET PO SCH (09:05)
[2018-04-27] MEDS: SENOKOT S TAB PO SCH ×2 (09:05→22:19)
[2018-04-27] MEDS: FUROSEMIDE 20 MG TAB PO SCH (09:07)
[2018-04-27] MEDS: LORATADINE 10 MG TAB PO SCH (09:07)
[2018-04-27] MEDS: METOPROLOL TART 50 MG TAB PO SCH ×2 (09:07→22:19)
[2018-04-27] MEDS: ASPIRIN 81 MG ENTERIC TAB PO SCH (09:07)
[2018-04-27] MEDS: METOCLOPRAMIDE 5 MG TAB PO SCH ×4 (09:07→22:19)
[2018-04-27] MEDS: FLUTICASONE PROP 0.05% NASAL SPRAY 16 GM (FLONASE) NARES SCH (09:08)
[2018-04-27] MEDS: BOUDREAUX'S BUTT PASTE 4OZ TOP SCH ×3 (09:09→22:20)
[2018-04-27 12:20] LABS: HEMATOCRIT 24.2 % (42.0-52.0); HEMOGLOBIN 7.8 g/dl (13.5-17.5)
--- NOTE | 2018-04-27 14:47 | IPNPDOC ---
Text Note Date of Service The patient was seen on 04/27/18. NOTE Subjective: Patient was seen and examined at the bedside. Currently patient denies any chest pain, short of breath or palpitations. He denies nausea, vomiting, abdominal pain, constipation, diarrhea or discomfort with urination Objective: Vitals (See below) General: Lying in bed, no acute distress, comfortable, AAOx3 HEENT: NC, AT CVS: RRR, +S1S2 Lungs: Fair air entry b/l, auscultation does reveal mild rhonchi at left lung base. There does not appear to be any wheezing or rales Abdomen: Soft, ND, NT, + PEG Extremities: - Edema, - Calf tenderness Assessment and plan: s/p Sepsis - 2/2 multifocal pneumonia, and MRSA bacteremia - Clinically patient does not improve in his breathing, still expresses mild cough - Remains afebrile and hemodynamically stable - Leukocytosis appears to be improving; CRP is been downtrending - Review blood cultures have been negative - Transesophageal echocardiogram does not reveal any signs of vegetations - Infectious disease has recommended vancomycin IV for 2 weeks duration (to be completed on 05/04/2018) - Will get PICC line s/p Thrombocytopenia Macrocytic anemia - No signs of bleeding - Folate and B12 remain normal - s/p 1 unit PRBC transfusion on 04/20/2018 - Will follow H&H for now CKD3 - Creatinine appears to be at baseline DM2 - c/w ISS and Levemir Possible gastroparesis - c/w Modified diet Constipation - c/w Bowel regimen Acute R frontal / Acute L parietal infarctions - likely 2/2 atrial fibrillation - MRI on 04/14/2018 - c/w ASA and Fenofibrate - c/w Warfarin CAD s/p 6 vessel CABG and AV replacement - c/w ASA, Fenofibrate - c/w Warfarin HTN - BP well controlled - c/w Metoprolol, Lasix Post-operative atrial fibrillation - c/w rate / rhythm control with metoprolol - c/w Warfarin Mild wedge compression fracture at T12 - c/w PT / OT Depression - c/w Citalopram Allergies - c/w Loratadine GERD - c/w Protonix DVT prophylaxis - c/w full anticoagulation with Warfarin VS,Fishbone, I+O VS, Fishbone, I+O Laboratory Tests 04/27/18 06:00 Red Blood Count 2.31 L, Mean Corpuscular Volume 99.1 H, Mean Corpuscular Hemoglobin 32.9, Mean Corpuscular Hemoglobin Concent 33.2, Red Cell Distribution Width 19.1 H, Neutrophils (%) (Auto) 75.8 H, Lymphocytes (%) (Auto) 13.1 L, Monocytes (%) (Auto) 5.2 H, Eosinophils (%) (Auto) 1.8, Basophils (%) (Auto) 0.3, Neutrophils # (Auto) 10.8 H, Lymphocytes # (Auto) 1.9, Monocytes # (Auto) 0.7, Eosinophils # (Auto) 0.3, Basophils # (Auto) 0.0, Calcium Level 7.9 L 04/27/18 12:10 Vital Signs Date Time Temp Pulse Resp B/P (MAP) Pulse Ox O2 Delivery O2 Flow Rate FiO2 04/27/18 09:07 88 140/66 04/27/18 06:00 98.6 18 92 Room Air I&O- Last 24 Hours up to 6 AM 04/27/18 06:00 Intake Total 960 ml Balance 960 ml RYLAND NEAL MD Apr 27, 2018 14:47
[2018-04-27 16:00] VITALS: BP 129/60
[2018-04-27] MEDS: VANCOMYCIN HCL 750 MG, VIAL MATE ADAPTER 1 EACH in D5W 250 ML IV SCH (16:25)
[2018-04-27 20:00] VITALS: BP 162/90
[2018-04-27] MEDS: LEVEMIR (INSULIN DETEMIR) 1 UNITS/0.01ML SC SCH (22:20)
[2018-04-28 06:00] VITALS: BP 141/68
[2018-04-28 06:08] LABS: BASO % 0.2 % (0.0-1.0); EOS # 0.2 10^3/uL (0.0-0.50); EOS % 1.7 % (0.0-3.0); HEMATOCRIT 22.5 % (42.0-52.0); HEMOGLOBIN 7.4 g/dl (13.5-17.5); LYMPH # 1.8 10^3/uL (1.5-4.5); LYMPH % 13.5 % (24.0-44.0); MEAN CORPUSCULAR HGB CONC 32.9 g/dl (32.0-36.5); MEAN CORPUSCULAR VOLUME 97.4 fl (80.0-96.0); MONO # 0.6 10^3/uL (0.0-0.8); MONO % 4.2 % (0.0-5.0); NEUTROPHILS # 10.3 10^3/uL (1.8-7.7); NEUTROPHILS % 77.5 % (36.0-66.0); PLATELET COUNT, AUTOMATED 177 10^3/uL (150-450); RED BLOOD COUNT 2.31 10^6/uL (4.30-6.10); WHITE BLOOD COUNT 13.3 10^3/uL (4.0-10.0)
[2018-04-28 06:23] LABS: INR 3.14
[2018-04-28 06:39] LABS: CALCIUM LEVEL 7.6 MG/DL (8.8-10.2); CREATININE FOR GFR 1.42 MG/DL (0.70-1.30); POTASSIUM SERUM 3.6 MEQ/L (3.5-5.1)
[2018-04-28] MEDS: IPRATROPIUM 0.5MG/ALBUTEROL 2.5MG INH SOL UD 3ML (DUONEB)(J7620) NEB SCH ×2 (07:17→20:09)
[2018-04-28] MEDS: CitaloPRAM (CeleXA) 10 MG TABLET PO SCH (07:55)
[2018-04-28] MEDS: METOCLOPRAMIDE 5 MG TAB PO SCH ×4 (07:55→22:17)
[2018-04-28] MEDS: FUROSEMIDE 20 MG TAB PO SCH (07:55)
[2018-04-28] MEDS: PANTOPRAZOLE 40MG TAB (PROTONIX) PO SCH (07:55)
[2018-04-28] MEDS: LORATADINE 10 MG TAB PO SCH (07:55)
[2018-04-28] MEDS: HumaLOG INSULIN (NovoLOG) PER UNIT SC SCH ×4 (07:55→21:00)
[2018-04-28] MEDS: SENOKOT S TAB PO SCH ×2 (07:55→22:16)
[2018-04-28] MEDS: FENOFIBRATE 145 MG TAB (TRICOR) PO SCH (07:55)
[2018-04-28] MEDS: SODIUM CHLORIDE NASAL 0.65% SPRAY BTL (OCEAN) SCH ×3 (07:56→22:17)
[2018-04-28] MEDS: METOPROLOL TART 50 MG TAB PO SCH ×2 (07:56→22:17)
[2018-04-28] MEDS: FERROUS GLUCONATE 324 MG TAB PO SCH ×2 (07:56→22:16)
[2018-04-28] MEDS: ASPIRIN 81 MG ENTERIC TAB PO SCH (07:56)
[2018-04-28] MEDS: FLUTICASONE PROP 0.05% NASAL SPRAY 16 GM (FLONASE) NARES SCH (07:57)
[2018-04-28] MEDS: BOUDREAUX'S BUTT PASTE 4OZ TOP SCH ×3 (07:57→21:00)
--- NOTE | 2018-04-28 11:28 | IPNPDOC ---
Date Seen The patient was seen on 04/28/18. Progress Note HPI: This patient initially was hospitalized at our facility in Feb 2018 for syncope work up and found incidentally to have a pleural effusion of which he ultimately ended up receiving a chest tube for. He unfortunately sustained a cardiac event in the hospital at that time, he went into coarse ventricular fibrillation requiring defibrillation and ICU stay with intubation, the ultimate decision was made to life flight the patient out of the hospital to [facility] for cardiac procedure and aortic valve replacement. The pt underwent 6 vessel bypass and AV replacement 02/21/18 complicated post-op by anuria, and difficulty with weaning from vent. IABP was apparently placed POD #3. He was also given TPN. He ultimately received a tracheostomy POD #7 according to records. He was maintained on vasopressors as well in ICU and treated with ciprofloxacin, vancomycin and aztreonam for supposed sepsis, he did have a sputum culture that was positive for GNR and was found to have a possible left sided pneumonia. He had poor output post-op anuric and received CRRT while hospitalized at [facility] ICU. Hematology was also consulted for thrombocytopenia and placed on IV argatroban due to worsening thrombocytopenia until a repeat (first KITTY negative) KITTY confirmed negative HIT. He did experience bradycardia and junctional rhythm while in ICU, AV paced. According to notes, he was eventually weaned off of vasopressors and renal function did improve. PEG tube had been placed on 03.14.18. B/L chest tubes were removed on 04.10.18. He also experienced post-op a. fib and was started on and remains on Coumadin for this. The pt was transferred to ARU, Dr Lezama, 04/11/18-04/18/18. The pt was treated 04/18/18-04/25/18 [facility] for multifocal pneumonia and gastroparesis. Now transferred back to ARU, Dr Lezama to continue rehabilitation. No acute medical complaints today. OOB to chair. Denies any fevers, chills, weakness, fatigue, Headache, Chest Pain, Shortness of breath, cough, palpitations, abdominal pain, N/V/D or changes in bowel or bladder habits. PE: GEN: 73yoM, appears stated age. No acute distress. Alert and oriented x 3. HEENT: Normocephalic, atraumatic. Sclera are nonicteric. Conjunctiva without injection. No facial asymmetry. Moist mucous membranes. Neck supple. CHEST: Regular rate and rhythm, +S1, +S2 LUNGS: Clear to auscultation bilaterally. No wheezes, rales, or rhonchi. Breathing appears symmetric and easy. ABD: Round, soft, non-tender, non-distended. +Bowel sounds throughout. No rebound or guarding. EXT: No lower extremity edema appreciated. SKIN: [place], dry, warm. No rashes. NEURO: Alert and oriented x 3. No focal deficits appreciated. A&P: Debility. PT/OT as per ARU Disposition as per ARU DVT prophylaxis. Pt is on Coumadin. s/p Sepsis - 2/2 multifocal pneumonia, and MRSA bacteremia Tmax 99.6 Leukocytosis appears to be improving; CRP is been downtrending Blood cultures have been negative Transesophageal echocardiogram does not reveal any signs of vegetations Infectious disease has recommended vancomycin IV for 2 weeks duration (to be completed on 05/04/2018) PICC line pending. Resp panel this AM pending PCXR pending UC 04/27/18 pending s/p Thrombocytopenia Macrocytic anemia No signs of bleeding Folate and B12 remain normal s/p 1 unit PRBC transfusion on 04/20/2018 Will follow H&H for now, monitor need for transfusion. CKD3 Creatinine appears to be at baseline DM2 ISS and Levemir Possible gastroparesis c/w Modified diet Constipation c/w Bowel regimen Acute R frontal / Acute L parietal infarctions - likely 2/2 atrial fibrillation MRI on 04/14/2018 c/w ASA and Fenofibrate c/w Warfarin CAD s/p 6 vessel CABG and AV replacement c/w ASA, Fenofibrate c/w Warfarin HTN BP well controlled c/w Metoprolol, Lasix Post-operative atrial fibrillation c/w rate / rhythm control with metoprolol c/w Warfarin On hold currently, INR 3.14. Monitor daily INR. Mild wedge compression fracture at T12 c/w PT / OT Depression c/w Citalopram Allergies c/w Loratadine GERD c/w Protonix VS, I&O, 24H, Fishbone Vital Signs/I&O Vital Signs Date Time Temp Pulse Resp B/P (MAP) Pulse Ox O2 Delivery O2 Flow Rate FiO2 04/28/18 07:56 83 141/68 04/28/18 06:00 99.2 18 93 Room Air I&O- Last 24 Hours up to 6 AM 04/28/18 06:00 Intake Total 1815 ml Output Total 650 ml Balance 1165 ml Laboratory Data 24H LABS Laboratory Tests 2 04/27/18 11:46: Bedside Glucose (Misc Panel) 229H 04/27/18 17:12: Bedside Glucose (Misc Panel) 146H 04/27/18 21:44: Bedside Glucose (Misc Panel) 251H 04/28/18 05:21: Immature Granulocyte % (Auto) 2.9, White Blood Count 13.3H, Red Blood Count 2.31L, Hemoglobin 7.4L, Hematocrit 22.5L, Mean Corpuscular Volume 97.4H, Mean Corpuscular Hemoglobin 32.0, Mean Corpuscular Hemoglobin Concent 32.9, Red Cell Distribution Width 18.6H, Platelet Count 177, Neutrophils (%) (Auto) 77.5H, Lymphocytes (%) (Auto) 13.5L, Monocytes (%) (Auto) 4.2, Eosinophils (%) (Auto) 1.7, Basophils (%) (Auto) 0.2, Neutrophils # (Auto) 10.3H, Lymphocytes # (Auto) 1.8, Monocytes # (Auto) 0.6, Eosinophils # (Auto) 0.2, Basophils # (Auto) 0.0, Nucleated Red Blood Cells % (auto) 0.0, Prothrombin Time 33.0H, Prothromb Time International Ratio 3.14, Anion Gap 7L, Glomerular Filtration Rate 52.0, Blood Urea Nitrogen 22H, Creatinine 1.42H, Sodium Level 134L, Potassium Level 3.6, Chloride Level 103, Carbon Dioxide Level 24, Calcium Level 7.6L 04/28/18 06:52: Bedside Glucose (Misc Panel) 164H CBC/BMP Laboratory Tests 04/27/18 12:10 04/28/18 05:21 Red Blood Count 2.31 L, Mean Corpuscular Volume 97.4 H, Mean Corpuscular Hemoglobin 32.0, Mean Corpuscular Hemoglobin Concent 32.9, Red Cell Distribution Width 18.6 H, Neutrophils (%) (Auto) 77.5 H, Lymphocytes (%) (Auto) 13.5 L, Monocytes (%) (Auto) 4.2, Eosinophils (%) (Auto) 1.7, Basophils (%) (Auto) 0.2, Neutrophils # (Auto) 10.3 H, Lymphocytes # (Auto) 1.8, Monocytes # (Auto) 0.6, Eosinophils # (Auto) 0.2, Basophils # (Auto) 0.0, Calcium Level 7.6 L Microbiology Microbiology 04/27/18 Urine Culture, Received Pending Indy Lewis Apr 28, 2018 11:28
--- NOTE | 2018-04-28 12:31 | REP ---
PORTABLE CHEST, ONE VIEW: HISTORY: Rule out infiltrate. COMPARISON: 04/22/2018. The lungs are clear. There is a decrease in the right pleural effusion compared to the previous study. The heart is normal in size. The pulmonary vasculature is normal in appearance. IMPRESSION: Right pleural effusion decreased compared to the previous study. Electronically Signed by Jl Wren MD 04/28/2018 12:39 P
[2018-04-28] MEDS ORDERED: diphenhydrAMINE INJ 50MG/ML VIAL (J1200) IM ONE (13:00)
[2018-04-28] MEDS ORDERED: FUROSEMIDE 40 MG/4 ML VIAL (J1940) IV ONE (13:00)
[2018-04-28] MEDS ORDERED: ACETAMINOPHEN TAB 650MG DOSE (2X325MG) PO ONE (13:00)
[2018-04-28] MEDS ORDERED: LIDOCAINE 1% MDV 20ML VIAL As Ordered ONE (13:06)
[2018-04-28 14:00] VITALS: BP 144/74
[2018-04-28] MEDS: VANCOMYCIN HCL 750 MG, VIAL MATE ADAPTER 1 EACH in D5W 250 ML IV SCH (16:49)
[2018-04-28] MEDS: SODIUM CHLORIDE 0.9% INJ 10 ML SYR IV SCH (18:00)
--- NOTE | 2018-04-28 18:58 | IPNPDOC ---
PM&R Progress Note DATE OF SERVICE: Apr 28, 2018 Park Activities Coordinator Progress Note Subjective: Patient reports feeling fatigued with ambulation, but overall better and denies fevers or chills, no significant cough. REVIEW OF SYSTEMS: The following is a completed review of systems and has been reviewed. Review of systems otherwise unremarkable. PAIN: Patient self reports no pain EYES: Negative for recent vision changes or pain EARS, NOSE, & THROAT: blurred vision in right eye (for 2 months), mild dysphagia, +sore throat CARDIOVASCULAR: denies chest pain or palpitations, +CABG and AVR PULMONARY: Negative. Denies shortness of breath, +trach stoma GASTROINTESTINAL: Negative for diarrhea/constipation, +PEG, +nausea with meals- improving GENITOURINARY: Negative for dysuria MUSCULOSKELETAL: general weakness NEUROLOGICAL: no seizure or tremor SKIN: multiple healed chest tube incisions, sternotomy scar, trach stoma, PEG site, sacral ulcer PSYCHIATRIC: Unremarkable All other review of systems found to be negative. PHYSICAL EXAMINATION: VITAL SIGNS: Please see below. GENERAL: Pleasant and cooperative. No acute distress. HEENT: PERRL. Extraocular movements intact. Clear conjunctiva, +trach stoma CARDIOVASCULAR: Irregular rate and rhythm. No murmurs, rubs, or gallops, +sternal incision-healed LUNGS: Clear to auscultation bilaterally. No wheezes. +LLL rhonchi ABDOMEN: Soft, nontender, nondistended. Positive bowel sounds., +PEG skin with exudate NEUROLOGICAL: Alert and oriented times three. Cranial nerves II through XII grossly intact. Sensation grossly intact EXTREMITIES: 5-\5 strength bilateral upper extremities. 5-\5 strength right lower extremity. 5-/5 strength in left lower extremity. intact range of motion in left lower extremity SKIN: bilateral chest tube incisions healing well, +sacral stage 1 ulcer, trach site -diffuse echymosis in UE and abdomen with bilat UE petechia +RUE PICC in place ASSESSMENT:73-year-old M with past medical history of DM and aortic stenosis who presents status post CABGx6, aortic valve replacement complicated by long hospital course s/p vent-dependence and PEG for dysphagia admitted for debility secondary to multifocal MRSA pneumonia of recent 6vessel CABG, AVR, and vent- dependent respiratory failure and recently diagnosed CVAs. PLAN: 1. 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 Neuro: diagnosed with Acute right frontal and acute left parietal infarctions on 04-14-18 sustained at [facility] -Carotid ultrasound revealed bilateral 16-49% internal carotid artery narrowing. -Brain MRA reveals mild atherosclerotic irregularity in the proximal posterior cerebral artery on the left. -continue Coumadin for Afib, ASA, and Fenofribrate (allergy to satins) for se condary stroke prevention 2. CArdio: s/p CABG6 vessel and AVR, TTE positive for diastolic CHF, ROSEANN 04-24-18 negative for vegetations, recently diagnosed post-op Afib continue beta-christian, coumadin and ASA 3. Resp: Sepsis secondary to Multifocal PNA with MRSA bacteremia on Vancomycin, ID following, recs appreciated-DUonebs -repeat CXR ordered tor leukocytosis, no infiltrate -Respiratory panel ordered for leukocytosis, negative 04/28/18 4. Endo: pmh DM with possible gastroparesis, continue insulin therapy and Metoclopramide pre-meals, encouraging smaller meals for possible SMA syndrome in setting of recent weight loss, will monitor and pursue further work-up if post- prandial cramping and nausea persists. 5. : f/u admission UA and Ucx, monitor PVRs 6. DVT ppx: on Coumadin, recent Dopplers negative for DVT, TEds 7. Ortho: T12 compression fracture, no surgery recommended 8. GI: protonix for ppx, will defer PEG removal for [place]'s surgeon in setting of fluctuating INRs and thrombocytopenia 9. Skin: daily PEG site cleaning, and butt paste to sacrum with turning q2h 10. Heme: recent history of thrombocytopenia, improving, however Hgb around 7 and fatiguing in therapy, will give 2 units prbcs with lasix to avoid fluid overloading 10. Dispo: TBD Allergies Coded Allergies: [place] (Verified Allergy, Severe, ANAPHYLAXIS, 11/09/14) Penicillins (Verified Allergy, Severe, ANAPHYLAXIS, 08/04/14) Metformin (Verified Allergy, Unknown, 02/16/18) Statins (Verified Allergy, Unknown, 02/16/18) Duloxetine (Unverified Adverse Reaction, Mild, N/V, 04/16/18) Vital Signs Vital Signs Date Time Temp Pulse Resp B/P (MAP) Pulse Ox O2 Delivery O2 Flow Rate FiO2 04/28/18 14:00 98.1 77 18 144/74 (97) 99 04/28/18 06:00 Room Air Laboratory Data CBC/BMP Laboratory Tests 04/28/18 05:21 Red Blood Count 2.31 L, Mean Corpuscular Volume 97.4 H, Mean Corpuscular Hemoglobin 32.0, Mean Corpuscular Hemoglobin Concent 32.9, Red Cell Distribution Width 18.6 H, Neutrophils (%) (Auto) 77.5 H, Lymphocytes (%) (Auto) 13.5 L, Monocytes (%) (Auto) 4.2, Eosinophils (%) (Auto) 1.7, Basophils (%) (Auto) 0.2, Neutrophils # (Auto) 10.3 H, Lymphocytes # (Auto) 1.8, Monocytes # (Auto) 0.6, Eosinophils # (Auto) 0.2, Basophils # (Auto) 0.0, Calcium Level 7.6 L Labs 24H Laboratory Tests 2 04/27/18 21:44: Bedside Glucose (Misc Panel) 251H 04/28/18 05:21: Immature Granulocyte % (Auto) 2.9, White Blood Count 13.3H, Red Blood Count 2.31L, Hemoglobin 7.4L, Hematocrit 22.5L, Mean Corpuscular Volume 97.4H, Mean Corpuscular Hemoglobin 32.0, Mean Corpuscular Hemoglobin Concent 32.9, Red Cell Distribution Width 18.6H, Platelet Count 177, Neutrophils (%) (Auto) 77.5H, Lymphocytes (%) (Auto) 13.5L, Monocytes (%) (Auto) 4.2, Eosinophils (%) (Auto) 1.7, Basophils (%) (Auto) 0.2, Neutrophils # (Auto) 10.3H, Lymphocytes # (Auto) 1.8, Monocytes # (Auto) 0.6, Eosinophils # (Auto) 0.2, Basophils # (Auto) 0.0, Nucleated Red Blood Cells % (auto) 0.0, Prothrombin Time 33.0H, Prothromb Time International Ratio 3.14, Anion Gap 7L, Glomerular Filtration Rate 52.0, Blood Urea Nitrogen 22H, Creatinine 1.42H, Sodium Level 134L, Potassium Level 3.6, Chloride Level 103, Carbon Dioxide Level 24, Calcium Level 7.6L 04/28/18 06:52: Bedside Glucose (Misc Panel) 164H 04/28/18 11:57: Bedside Glucose (Misc Panel) 223H 04/28/18 15:31: Vancomycin Level Trough 15.6 04/28/18 17:09: Bedside Glucose (Misc Panel) 135H Microbiology Microbiology 04/28/18 Respiratory Virus Panel (PCR) (MANDIE) - Final, Complete 04/27/18 Urine Culture - Final, Complete Current Medications Current Medications Current Medications Acetaminophen (Tylenol Tab) 650 mg Q4HP PRN PO MILD PAIN (PS 1-4); Start 04/25/18 at 17:00 Acetylcysteine (Mucomyst 10 % (100mg/ml)) 400 mg RBID INH Last administered on 04/26/18at 08:07; Start 04/25/18 at 20:00; Stop 04/26/18 at 09:24; Status DC Albuterol Sulfate (Proventil Neb) 2.5 mg Q6HP PRN NEB SOB/WHEEZING Last administered on 04/26/18at 08:07; Start 04/25/18 at 20:30 Albuterol Sulfate (Proventil, Ventolin Hfa) 2 puff Q4HP PRN INH SHORTNESS OF BREATH; Start 04/25/18 at 17:00 Albuterol/ Ipratropium (Duoneb (Ipr 0.5mg/Alb 2.5mg)) 3 ml RBID NEB Last administered on 04/28/18at 07:17; Start 04/26/18 at 20:00 Aspirin (Ecotrin) 81 mg DAILY PO Last administered on 04/28/18at 07:56; Start 04/26/18 at 09:00 Bisacodyl (Dulcolax Suppository) 10 mg DAILYPRN PRN [place] CONSTIPATION; Start 04/25/18 at 17:00 Cetylpyridinium Chloride (Cepacol) 1 chuck Q2HP PRN PO COUGH; Start 04/25/18 at 17:00 Citalopram Hydrobromide (CeleXA) 10 mg DAILY PO Last administered on 04/28/18at 07:55; Start 04/26/18 at 09:00 Dextrose (Dextrose 50%) 25 ml ASDIRECTED PRN IV SEE LABEL COMMENTS; Start 04/25/18 at 17:00 Fenofibrate (Tricor) 145 mg DAILY PO Last administered on 04/28/18at 07:55; Start 04/26/18 at 09:00 Ferrous Gluconate (Fergon) 324 mg BID PO Last administered on 04/28/18at 07:56; Start 04/25/18 at 21:00 Fluticasone Propionate (Flonase 0.05% Nasal [place]) 2 spray DAILY NARES Last administered on 04/28/18at 07:57; Start 04/27/18 at 09:00 Furosemide (Lasix) 20 mg DAILY PO Last administered on 04/28/18at 07:55; Start 04/26/18 at 09:00 Glucagon (Glucagon) 1 mg ASDIRECTED PRN SC SEE LABEL COMMENTS; Start 04/25/18 at 17:00 Glucose (Glucose) 16 GM ASDIRECTED PRN PO SEE LABEL COMMENTS; Start 04/25/18 at 17:00 Guaifenesin (Robitussin Tab) 200 mg Q4HP PRN PO COUGH; Start 04/25/18 at 17:00 Heparin Sodium (Heparin (Flush)) 200 units ASDIRECTED PRN IV SEE LABEL COMMENTS; Start 04/28/18 at 16:45 Heparin Sodium (Heparin (Flush)) 200 units PICC IV ; Start 04/28/18 at 18:00 Home Med (Med Rec Complete!) ASDIRECTED XX ; Start 04/25/18 at 19:00; Stop 04/25/18 at 19:00; Status DC Insulin Detemir (Levemir Insulin) 5 units QHS SC ; Start 04/25/18 at 21:00; Stop 04/25/18 at 22:17; Status DC Insulin Detemir (Levemir Insulin) 5 units QHS SC Last administered on 04/27/18at 22:20; Start 04/26/18 at 21:00 Insulin Human Lispro (HumaLOG INSULIN) SEE PROTOCOL TABLE AC SC Last administered on 04/28/18at 17:33; Start 04/26/18 at 07:30 Insulin Human Lispro (HumaLOG INSULIN) SEE PROTOCOL TABLE QHS SC Last administered on 04/26/18at 22:27; Start 04/26/18 at 21:00 Insulin Human Lispro (HumaLOG INSULIN) See Protocol Table QHS SC ; Start 04/25/18 at 21:00; Stop 04/25/18 at 22:17; Status DC Loratadine (Claritin) 10 mg DAILY PO Last administered on 04/28/18at 07:55; Start 04/26/18 at 09:00 Metoclopramide HCl (Reglan) 5 mg ACHS PO Last administered on 04/28/18at 18:20; Start 04/25/18 at 21:00 Metoprolol Tartrate (Lopressor) 50 mg BID PO Last administered on 04/28/18 07:56; Start 04/25/18 at 21:00 Pantoprazole Sodium (Protonix) 40 mg DAILY PO Last administered on 04/28/18 07:55; Start 04/26/18 at 09:00 Senna/Docusate Sodium (Senokot S) 1 tab BID PO Last administered on 04/28/18 07:55; Start 04/25/18 at 21:00 Sodium Chloride ([place] Nasal [place]) 2 spray TID NA Last administered on 04/28/18at 16:49; Start 04/26/18 at 16:00 Sodium Chloride (Saline Lock Flush) 10 ml ASDIRECTED PRN IV SEE LABEL COMMENTS; Start 04/28/18 at 16:45 Sodium Chloride (Saline Lock Flush) 10 ml PICC IV ; Start 04/28/18 at 18:00 Vancomycin HCl 750 mg/IV Miscellaneous Supplies 1 each/ Dextrose 275 ml @ 275 mls/hr Q24H IV Last administered on 04/28/18at 16:49; Start 04/26/18 at 15:00; Stop 05/04/18 at 14:59 Warfarin Sodium (Coumadin) 6 mg DAILY@17 PO ; Start 04/26/18 at 17:00; Stop 04/27/18 at 14:44; Status DC Zinc Oxide (Boudreauxs Butt Paste) sacrum TID TOP Last administered on 04/28/18at 07:57; Start 04/25/18 at 22:18 CACHORRO MEDEL MD Apr 28, 2018 18:58
--- NOTE | 2018-04-28 19:14 | REP ---
Procedure: PICC line insertion with Antonio The procedure was performed under the direct supervision of Dr. Moser. The risks and benefits of the procedure were explained to the patient and informed consent was obtained. The right basilic vein was localized using ultrasound guidance. The skin was prepped and draped in a sterile fashion. 2% lidocaine was used as a local anesthetic. Using ultrasound guidance the basilic vein was cannulated and a 0.018 guidewire was inserted and advanced to the SVC using fluoroscopic guidance. The needle was removed and a 5.5 German dilator and peel-away sheath was inserted over the guide wire. A 5.5 German dual lumen catheter was cut to length of 40 cm. The dilator was removed and the catheter was inserted over the guide wire with the tip ending in the SVC. The peel-away sheath was removed and the catheter was flushed with heparinized saline as per Hospital protocol. The catheter was affixed to the skin and a sterile dressing was applied. The patient tolerated the procedure well and there were no immediate complications. 0.2 minutes of fluoro time was utilized for this procedure. Reviewed by GARRY Workman 04/28/2018 04:26 P Electronically Signed by Jesus Moser MD 04/28/2018 07:05 P
[2018-04-28 20:00] VITALS: BP 164/98
[2018-04-28] MEDS: LEVEMIR (INSULIN DETEMIR) 1 UNITS/0.01ML SC SCH (22:16)
[2018-04-29] MEDS: SODIUM CHLORIDE 0.9% INJ 10 ML SYR IV PRN (01:56)
[2018-04-29] MEDS: SODIUM CHLORIDE 0.9% INJ 10 ML SYR IV SCH ×2 (05:39→17:24)
[2018-04-29 05:58] LABS: BASO # 0.1 10^3/uL (0.0-0.2); BASO % 0.4 % (0.0-1.0); EOS # 0.2 10^3/uL (0.0-0.50); EOS % 1.7 % (0.0-3.0); HEMATOCRIT 29.9 % (42.0-52.0); HEMOGLOBIN 9.9 g/dl (13.5-17.5); LYMPH # 1.4 10^3/uL (1.5-4.5); MEAN CORPUSCULAR HEMOGLOBIN 31.3 pg (27.0-33.0); MEAN CORPUSCULAR HGB CONC 33.1 g/dl (32.0-36.5); MEAN CORPUSCULAR VOLUME 94.6 fl (80.0-96.0); MONO # 0.6 10^3/uL (0.0-0.8); MONO % 4.9 % (0.0-5.0); NEUTROPHILS # 9.2 10^3/uL (1.8-7.7); NEUTROPHILS % 78.6 % (36.0-66.0); PLATELET COUNT, AUTOMATED 189 10^3/uL (150-450); RED BLOOD COUNT 3.16 10^6/uL (4.30-6.10); WHITE BLOOD COUNT 11.7 10^3/uL (4.0-10.0)
[2018-04-29 06:00] VITALS: BP 160/88
[2018-04-29 06:22] LABS: CALCIUM LEVEL 7.9 MG/DL (8.8-10.2); CREATININE FOR GFR 1.55 MG/DL (0.70-1.30); POTASSIUM SERUM 3.6 MEQ/L (3.5-5.1)
[2018-04-29 06:35] LABS: INR 1.82; PROTHROMBIN TIME 21.4 SECONDS (12.1-14.4)
[2018-04-29] MEDS: IPRATROPIUM 0.5MG/ALBUTEROL 2.5MG INH SOL UD 3ML (DUONEB)(J7620) NEB SCH ×2 (07:13→19:20)
[2018-04-29] MEDS: FERROUS GLUCONATE 324 MG TAB PO SCH ×2 (08:08→21:12)
[2018-04-29] MEDS: CitaloPRAM (CeleXA) 10 MG TABLET PO SCH (08:08)
[2018-04-29] MEDS: FUROSEMIDE 20 MG TAB PO SCH (08:08)
[2018-04-29] MEDS: SENOKOT S TAB PO SCH ×2 (08:08→21:12)
[2018-04-29] MEDS: ASPIRIN 81 MG ENTERIC TAB PO SCH (08:08)
[2018-04-29] MEDS: FENOFIBRATE 145 MG TAB (TRICOR) PO SCH (08:09)
[2018-04-29] MEDS: METOCLOPRAMIDE 5 MG TAB PO SCH ×4 (08:09→21:12)
[2018-04-29] MEDS: PANTOPRAZOLE 40MG TAB (PROTONIX) PO SCH (08:09)
[2018-04-29] MEDS: HumaLOG INSULIN (NovoLOG) PER UNIT SC SCH ×4 (08:09→21:05)
[2018-04-29] MEDS: METOPROLOL TART 50 MG TAB PO SCH ×2 (08:09→21:12)
[2018-04-29] MEDS: LORATADINE 10 MG TAB PO SCH (08:09)
[2018-04-29] MEDS: FLUTICASONE PROP 0.05% NASAL SPRAY 16 GM (FLONASE) NARES SCH (08:10)
[2018-04-29] MEDS: BOUDREAUX'S BUTT PASTE 4OZ TOP SCH ×3 (08:10→21:13)
[2018-04-29] MEDS: SODIUM CHLORIDE NASAL 0.65% SPRAY BTL (OCEAN) SCH ×3 (08:10→21:13)
[2018-04-29 14:00] VITALS: BP 126/72
[2018-04-29] MEDS: VANCOMYCIN HCL 750 MG, VIAL MATE ADAPTER 1 EACH in D5W 250 ML IV SCH (15:19)
--- NOTE | 2018-04-29 19:08 | IPNPDOC ---
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 REVIEW OF SYSTEMS: The following is a completed review of systems and has been reviewed. Review of systems otherwise unremarkable. PAIN: Patient self reports no pain EYES: Negative for recent vision changes or pain EARS, NOSE, & THROAT: blurred vision in right eye (for 2 months), mild dysphagia(improving) CARDIOVASCULAR: denies chest pain or palpitations, +CABG and AVR PULMONARY: Negative. Denies shortness of breath, +trach stoma GASTROINTESTINAL: Negative for diarrhea/constipation, +PEG, +nausea with meals- improving GENITOURINARY: Negative for dysuria MUSCULOSKELETAL: general weakness NEUROLOGICAL: no seizure or tremor SKIN: multiple healed chest tube incisions, sternotomy scar, trach stoma, PEG site, sacral ulcer PSYCHIATRIC: Unremarkable All other review of systems found to be negative. PHYSICAL EXAMINATION: VITAL SIGNS: Please see below. GENERAL: Pleasant and cooperative. No acute distress. HEENT: PERRL. Extraocular movements intact. Clear conjunctiva, +trach stoma CARDIOVASCULAR: Irregular rate and rhythm. No murmurs, rubs, or gallops, +sternal incision-healed LUNGS: Clear to auscultation bilaterally. No wheezes. +LLL rhonchi ABDOMEN: Soft, nontender, nondistended. Positive bowel sounds., +PEG skin c/d/i NEUROLOGICAL: Alert and oriented times three. Cranial nerves II through XII grossly intact. Sensation grossly intact EXTREMITIES: 5-\5 strength bilateral upper extremities. 5-\5 strength right lower extremity. 5-/5 strength in left lower extremity. intact range of motion in left lower extremity SKIN: bilateral chest tube incisions healing well, +sacral stage 1 ulcer, trach site -diffuse ecchymosis in UE and abdomen +RUE PICC in place ASSESSMENT:73-year-old M with past medical history of DM and aortic stenosis who presents status post CABGx6, aortic valve replacement complicated by long hospital course s/p vent-dependence and PEG for dysphagia admitted for debility secondary to multifocal MRSA pneumonia of recent 6vessel CABG, AVR, and vent- dependent respiratory failure and recently diagnosed CVAs. PLAN: 1. 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 Neuro: diagnosed with Acute right frontal and acute left parietal infarctions on 04-14-[address] [facility] -Carotid ultrasound revealed bilateral 16-49% internal carotid artery narrowing. -Brain MRA reveals mild atherosclerotic irregularity in the proximal posterior cerebral artery on the left. -continue Coumadin for Afib, ASA, and Fenofribrate (allergy to satins) for secondary stroke prevention 2. CArdio: s/p CABG6 vessel and AVR, TTE positive for diastolic CHF, ROSEANN 04-24-18 negative for vegetations, recently diagnosed post-op Afib continue beta-christian, coumadin and ASA- INR management per medicine 3. Resp: Sepsis secondary to Multifocal PNA with MRSA bacteremia on Vancomycin, ID following, recs appreciated-DUonebs -repeat CXR ordered for leukocytosis, no infiltrate on 04/28/18 negative for active disease -Respiratory panel ordered for leukocytosis, negative 04/28/18 4. Endo: pmh DM with possible gastroparesis, continue insulin therapy and Metoclopramide pre-meals, encouraging smaller meals for possible SMA syndrome in setting of recent weight loss, will monitor and pursue further work-up if post- prandial cramping and nausea persists. 5. : admission UA and Ucx negative, monitor PVRs 6. DVT ppx: on Coumadin, recent Dopplers negative for DVT, TEds 7. Ortho: T12 compression fracture, no surgery recommended 8. GI: protonix for ppx, will defer PEG removal for [place]'s surgeon in setting of fluctuating INRs and thrombocytopenia 9. Skin: daily PEG site cleaning, and butt paste to sacrum with turning q2h 10. Heme: recent history of thrombocytopenia, improving, s/p 2 units prbcs on 04/28/18 with Hgb around 9, more energetic and feeling well 10. Dispo: 05/06/18, progressing towards goals Allergies Coded Allergies: [place] (Verified Allergy, Severe, ANAPHYLAXIS, 11/09/14) Penicillins (Verified Allergy, Severe, ANAPHYLAXIS, 08/04/14) Metformin (Verified Allergy, Unknown, 02/16/18) Statins (Verified Allergy, Unknown, 02/16/18) Duloxetine (Unverified Adverse Reaction, Mild, N/V, 04/16/18) Vital Signs Vital Signs Date Time Temp Pulse Resp B/P (MAP) Pulse Ox O2 Delivery O2 Flow Rate FiO2 04/29/18 14:00 98.0 78 19 126/72 (90) 96 Room Air Laboratory Data CBC/BMP Laboratory Tests 04/29/18 05:48 Red Blood Count 3.16 L, Mean Corpuscular Volume 94.6, Mean Corpuscular Hemoglobin 31.3, Mean Corpuscular Hemoglobin Concent 33.1, Red Cell Distribution Width 19.2 H, Neutrophils (%) (Auto) 78.6 H, Lymphocytes (%) (Auto) 12.0 L, Monocytes (%) (Auto) 4.9, Eosinophils (%) (Auto) 1.7, Basophils (%) (Auto) 0.4, Neutrophils # (Auto) 9.2 H, Lymphocytes # (Auto) 1.4 L, Monocytes # (Auto) 0.6, Eosinophils # (Auto) 0.2, Basophils # (Auto) 0.1, Calcium Level 7.9 L Labs 24H Laboratory Tests 2 04/28/18 21:57: Bedside Glucose (Misc Panel) 198H 04/29/18 05:48: Immature Granulocyte % (Auto) 2.4, White Blood Count 11.7H, Red Blood Count 3.16L, Hemoglobin 9.9#L, Hematocrit 29.9L, Mean Corpuscular Volume 94.6, Mean C orpuscular Hemoglobin 31.3, Mean Corpuscular Hemoglobin Concent 33.1, Red Cell Distribution Width 19.2H, Platelet Count 189, Neutrophils (%) (Auto) 78.6H, Lymphocytes (%) (Auto) 12.0L, Monocytes (%) (Auto) 4.9, Eosinophils (%) (Auto) 1.7, Basophils (%) (Auto) 0.4, Neutrophils # (Auto) 9.2H, Lymphocytes # (Auto) 1.4L, Monocytes # (Auto) 0.6, Eosinophils # (Auto) 0.2, Basophils # (Auto) 0.1, Nucleated Red Blood Cells % (auto) 0.0, Prothrombin Time 21.4H, Prothromb Time International Ratio 1.82, Anion Gap 6L, Glomerular Filtration Rate 47.0, Blood Urea Nitrogen 22H, Creatinine 1.55H, Sodium Level 137, Potassium Level 3.6, Chloride Level 103, Carbon Dioxide Level 28, Calcium Level 7.9L 04/29/18 11:22: Bedside Glucose (Misc Panel) 182H 04/29/18 16:46: Bedside Glucose (Misc Panel) 163H Microbiology Microbiology 04/28/18 Respiratory Virus Panel (PCR) (MANDIE) - Final, Complete 04/27/18 Urine Culture - Final, Complete Current Medications Current Medications Current Medications Acetaminophen (Tylenol Tab) 650 mg Q4HP PRN PO MILD PAIN (PS 1-4); Start 04/25/18 at 17:00 Acetylcysteine (Mucomyst 10 % (100mg/ml)) 400 mg RBID INH Last administered on 04/26/18at 08:07; Start 04/25/18 at 20:00; Stop 04/26/18 at 09:24; Status DC Albuterol Sulfate (Proventil Neb) 2.5 mg Q6HP PRN NEB SOB/WHEEZING Last administered on 04/26/18at 08:07; Start 04/25/18 at 20:30 Albuterol Sulfate (Proventil, Ventolin Hfa) 2 puff Q4HP PRN INH SHORTNESS OF BREATH; Start 04/25/18 at 17:00 Albuterol/ Ipratropium (Duoneb (Ipr 0.5mg/Alb 2.5mg)) 3 ml RBID NEB Last administered on 04/29/18at 07:13; Start 04/26/18 at 20:00 Aspirin (Ecotrin) 81 mg DAILY PO Last administered on 04/29/18at 08:08; Start 04/26/18 at 09:00 Bisacodyl (Dulcolax Suppository) 10 mg DAILYPRN PRN [place] CONSTIPATION; Start 04/25/18 at 17:00 Cetylpyridinium Chloride (Cepacol) 1 chuck Q2HP PRN PO COUGH; Start 04/25/18 at 17:00 Citalopram Hydrobromide (CeleXA) 10 mg DAILY PO Last administered on 04/29/18at 08:08; Start 04/26/18 at 09:00 Dextrose (Dextrose 50%) 25 ml ASDIRECTED PRN IV SEE LABEL COMMENTS; Start 04/25/18 at 17:00 Fenofibrate (Tricor) 145 mg DAILY PO Last administered on 04/29/18at 08:09; Start 04/26/18 at 09:00 Ferrous Gluconate (Fergon) 324 mg BID PO Last administered on 04/29/18at 08:08; Start 04/25/18 at 21:00 Fluticasone Propionate (Flonase 0.05% Nasal [place]) 2 spray DAILY NARES Last administered on 04/29/18at 08:10; Start 04/27/18 at 09:00 Furosemide (Lasix) 20 mg DAILY PO Last administered on 04/29/18at 08:08; Start 04/26/18 at 09:00 Glucagon (Glucagon) 1 mg ASDIRECTED PRN SC SEE LABEL COMMENTS; Start 04/25/18 at 17:00 Glucose (Glucose) 16 GM ASDIRECTED PRN PO SEE LABEL COMMENTS; Start 04/25/18 at 17:00 Guaifenesin (Robitussin Tab) 200 mg Q4HP PRN PO COUGH; Start 04/25/18 at 17:00 Heparin Sodium (Heparin (Flush)) 200 units ASDIRECTED PRN IV SEE LABEL COMMENTS Last administered on 04/29/18at 01:56; Start 04/28/18 at 16:45 Heparin Sodium (Heparin (Flush)) 200 units PICC IV Last administered on 04/29/18at 17:24; Start 04/28/18 at 18:00 Home Med (Med Rec Complete!) ASDIRECTED XX ; Start 04/25/18 at 19:00; Stop 04/25/18 at 19:00; Status DC Insulin Detemir (Levemir Insulin) 5 units QHS SC ; Start 04/25/18 at 21:00; Stop 04/25/18 at 22:17; Status DC Insulin Detemir (Levemir Insulin) 5 units QHS SC Last administered on 04/28/18at 22:16; Start 04/26/18 at 21:00 Insulin Human Lispro (HumaLOG INSULIN) SEE PROTOCOL TABLE AC SC Last administered on 04/29/18at 17:03; Start 04/26/18 at 07:30 Insulin Human Lispro (HumaLOG INSULIN) SEE PROTOCOL TABLE QHS SC Last administered on 04/26/18at 22:27; Start 04/26/18 at 21:00 Insulin Human Lispro (HumaLOG INSULIN) See Protocol Table QHS SC ; Start 04/25/18 at 21:00; Stop 04/25/18 at 22:17; Status DC Loratadine (Claritin) 10 mg DAILY PO Last administered on 04/29/18 08:09; Start 04/26/18 at 09:00 Metoclopramide HCl (Reglan) 5 mg ACHS PO Last administered on 04/29/18 17:02; Start 04/25/18 at 21:00 Metoprolol Tartrate (Lopressor) 50 mg BID PO Last administered on 04/29/18 08:09; Start 04/25/18 at 21:00 Pantoprazole Sodium (Protonix) 40 mg DAILY PO Last administered on 04/29/18 08:09; Start 04/26/18 at 09:00 Senna/Docusate Sodium (Senokot S) 1 tab BID PO Last administered on 04/29/18 08:08; Start 04/25/18 at 21:00 Sodium Chloride ([place] Nasal [place]) 2 spray TID NA Last administered on 04/29/18 17:03; Start 04/26/18 at 16:00 Sodium Chloride (Saline Lock Flush) 10 ml ASDIRECTED PRN IV SEE LABEL COMMENTS Last administered on 04/29/18 01:56; Start 04/28/18 at 16:45 Sodium Chloride (Saline Lock Flush) 10 ml PICC IV Last administered on 04/29/18 17:24; Start 04/28/18 at 18:00 Vancomycin HCl 750 mg/IV Miscellaneous Supplies 1 each/ Dextrose 275 ml @ 275 mls/hr Q24H IV Last administered on 04/29/18 15:19; Start 04/26/18 at 15:00; Stop 05/04/18 at 14:59 Warfarin Sodium (Coumadin) 6 mg DAILY@17 PO ; Start 04/26/18 at 17:00; Stop 04/27/18 at 14:44; Status DC Zinc Oxide (Boudreauxs Butt Paste) sacrum TID TOP Last administered on 04/29/18 08:10; Start 04/25/18 at 22:18 CACHORRO MEDEL MD Apr 29, 2018 19:08
[2018-04-29 20:00] VITALS: BP 166/84
[2018-04-29] MEDS: LEVEMIR (INSULIN DETEMIR) 1 UNITS/0.01ML SC SCH (21:12)
[2018-04-30] MEDS: SODIUM CHLORIDE 0.9% INJ 10 ML SYR IV SCH ×2 (05:21→17:41)
[2018-04-30 05:40] LABS: BASO % 0.3 % (0.0-1.0); EOS # 0.2 10^3/uL (0.0-0.50); EOS % 1.2 % (0.0-3.0); HEMATOCRIT 30.1 % (42.0-52.0); HEMOGLOBIN 9.8 g/dl (13.5-17.5); LYMPH # 1.5 10^3/uL (1.5-4.5); LYMPH % 11.9 % (24.0-44.0); MEAN CORPUSCULAR HEMOGLOBIN 31.1 pg (27.0-33.0); MEAN CORPUSCULAR HGB CONC 32.6 g/dl (32.0-36.5); MEAN CORPUSCULAR VOLUME 95.6 fl (80.0-96.0); MONO # 0.7 10^3/uL (0.0-0.8); MONO % 5.2 % (0.0-5.0); NEUTROPHILS # 10.4 10^3/uL (1.8-7.7); NEUTROPHILS % 80.2 % (36.0-66.0); PLATELET COUNT, AUTOMATED 211 10^3/uL (150-450); RED BLOOD COUNT 3.15 10^6/uL (4.30-6.10)
[2018-04-30 05:51] LABS: INR 1.72; PROTHROMBIN TIME 20.5 SECONDS (12.1-14.4)
[2018-04-30 06:00] VITALS: BP 162/80
[2018-04-30] MEDS: IPRATROPIUM 0.5MG/ALBUTEROL 2.5MG INH SOL UD 3ML (DUONEB)(J7620) NEB SCH ×3 (06:08→20:00)
[2018-04-30 06:10] LABS: CALCIUM LEVEL 7.7 MG/DL (8.8-10.2); CREATININE FOR GFR 1.56 MG/DL (0.70-1.30); GLOMERULAR FILTRATION RATE 46.7 (>42)
[2018-04-30] MEDS: METOCLOPRAMIDE 5 MG TAB PO SCH ×2 (08:27→12:20)
[2018-04-30] MEDS: ASPIRIN 81 MG ENTERIC TAB PO SCH (08:27)
[2018-04-30] MEDS: HumaLOG INSULIN (NovoLOG) PER UNIT SC SCH ×4 (08:27→21:00)
[2018-04-30] MEDS: FERROUS GLUCONATE 324 MG TAB PO SCH ×2 (08:27→22:13)
[2018-04-30] MEDS: PANTOPRAZOLE 40MG TAB (PROTONIX) PO SCH (08:28)
[2018-04-30] MEDS: LORATADINE 10 MG TAB PO SCH (08:28)
[2018-04-30] MEDS: FUROSEMIDE 20 MG TAB PO SCH (08:28)
[2018-04-30] MEDS: FENOFIBRATE 145 MG TAB (TRICOR) PO SCH (08:28)
[2018-04-30] MEDS: METOPROLOL TART 50 MG TAB PO SCH ×3 (08:28→22:17)
[2018-04-30] MEDS: SENOKOT S TAB PO SCH ×2 (08:28→21:00)
[2018-04-30] MEDS: CitaloPRAM (CeleXA) 10 MG TABLET PO SCH (08:28)
[2018-04-30] MEDS: SODIUM CHLORIDE NASAL 0.65% SPRAY BTL (OCEAN) SCH ×3 (08:29→21:00)
[2018-04-30] MEDS: FLUTICASONE PROP 0.05% NASAL SPRAY 16 GM (FLONASE) NARES SCH (08:29)
[2018-04-30] MEDS: BOUDREAUX'S BUTT PASTE 4OZ TOP SCH ×3 (08:30→21:00)
[2018-04-30 12:32] LABS: C REACTIVE PROTEIN QUANTITATIV 8.18 MG/DL (0.00-0.30)
--- NOTE | 2018-04-30 12:58 | IPNPDOC ---
Date Seen The patient was seen on 04/30/18. Progress Note HPI: This patient initially was hospitalized at our facility in Feb 2018 for syncope work up and found incidentally to have a pleural effusion of which he ultimately ended up receiving a chest tube for. He unfortunately sustained a cardiac event in the hospital at that time, he went into coarse ventricular fibrillation requiring defibrillation and ICU stay with intubation, the ultimate decision was made to life flight the patient out of the hospital to [facility] for cardiac procedure and aortic valve replacement. The pt underwent 6 vessel bypass and AV replacement 02/21/18 complicated post-op by anuria, and difficulty with weaning from vent. IABP was apparently placed POD #3. He was also given TPN. He ultimately received a tracheostomy POD #7 according to records. He was maintained on vasopressors as well in ICU and treated with ciprofloxacin, vancomycin and aztreonam for supposed sepsis, he did have a sputum culture that was positive for GNR and was found to have a possible left sided pneumonia. He had poor output post-op anuric and received CRRT while hospitalized at [facility] ICU. Hematology was also consulted for thrombocytopenia and placed on IV argatroban due to worsening thrombocytopenia until a repeat (first KITTY negative) KITTY confirmed negative HIT. He did experience bradycardia and junctional rhythm while in ICU, AV paced. According to notes, he was eventually weaned off of vasopressors and renal function did improve. PEG tube had been placed on 03.14.18. B/L chest tubes were removed on 04.10.18. He also experienced post-op a. fib and was started on and remains on Coumadin for this. The pt was transferred to ARU, Dr Lezama, 04/11/18-04/18/18. The pt was treated 04/18/18-04/25/18 [facility] for multifocal pneumonia and gastroparesis. Now transferred back to ARU, Dr Lezama to continue rehabilitation. Pt is OOB to chair, feeling well. No concerns at this time. Denies any fevers, chills, weakness, fatigue, Headache, Chest Pain, Shortness of breath, cough, palpitations, abdominal pain, N/V/D or changes in bowel or bladder habits. PE: GEN: 73yoM, appears stated age. No acute distress. Alert and oriented x 3. HEENT: Normocephalic, atraumatic. Sclera are nonicteric. Conjunctiva without injection. No facial asymmetry. Moist mucous membranes. Neck supple. CHEST: Regular rate and rhythm, +S1, +S2 LUNGS: Clear to auscultation bilaterally. No wheezes, rales, or rhonchi. Breathing appears symmetric and easy. ABD: Round, soft, non-tender, non-distended. +Bowel sounds throughout. No rebound or guarding. EXT: No lower extremity edema appreciated. SKIN: [place], dry, warm. No rashes. NEURO: Alert and oriented x 3. No focal deficits appreciated. A&P: Debility. PT/OT/ST as per ARU Disposition as per ARU DVT prophylaxis. Pt is on Coumadin. Bowel care as per ARU. pain control as per ARU. s/p Sepsis - 2/2 multifocal pneumonia, and MRSA bacteremia Tmax 99.2 WBC 13.0 CRP has been downtrending, 8.18. Blood cultures have been negative Transesophageal echocardiogram does not reveal any signs of vegetations Infectious disease has recommended vancomycin IV for 2 weeks duration (to be completed on 05/04/2018) s/p Thrombocytopenia. Resolved. Macrocytic anemia No signs of bleeding Folate and B12 remain normal s/p 1 unit PRBC transfusion on 04/20/2018, 2U 04/28/18 monitor need for transfusion. CKD3 Creatinine appears to be at baseline SCr 1.56 DM2 ISS Levemir Possible gastroparesis Modified diet Acute R frontal / Acute L parietal infarctions - likely 2/2 atrial fibrillation MRI on 04/14/2018 ASA and Fenofibrate Warfarin CAD s/p 6 vessel CABG and AV replacement ASA, Fenofibrate Warfarin HTN BP well controlled Metoprolol, Lasix Post-operative atrial fibrillation rate / rhythm control with metoprolol INR 1.72. Coumadin 5 mg today. Monitor daily INR. Mild wedge compression fracture at T12 PT / OT Depression Citalopram Allergies Loratadine GERD Protonix VS, I&O, 24H, Fishbone Vital Signs/I&O Vital Signs Date Time Temp Pulse Resp B/P (MAP) Pulse Ox O2 Delivery O2 Flow Rate FiO2 04/30/18 08:28 86 162/80 04/30/18 06:00 98.1 19 93 Room Air I&O- Last 24 Hours up to 6 AM 04/30/18 06:00 Intake Total 825 ml Output Total 200 ml Balance 625 ml Laboratory Data 24H LABS Laboratory Tests 2 04/29/18 16:46: Bedside Glucose (Misc Panel) 163H 04/29/18 19:36: Bedside Glucose (Misc Panel) 138H 04/30/18 05:23: Immature Granulocyte % (Auto) 1.2, White Blood Count 13.0H, Red Blood Count 3.15L, Hemoglobin 9.8L, Hematocrit 30.1L, Mean Corpuscular Volume 95.6, Mean Corpuscular Hemoglobin 31.1, Mean Corpuscular Hemoglobin Concent 32.6, Red Cell Distribution Width 19.1H, Platelet Count 211, Neutrophils (%) (Auto) 80.2H, Lymphocytes (%) (Auto) 11.9L, Monocytes (%) (Auto) 5.2H, Eosinophils (%) (Auto) 1.2, Basophils (%) (Auto) 0.3, Neutrophils # (Auto) 10.4H, Lymphocytes # (Auto) 1.5, Monocytes # (Auto) 0.7, Eosinophils # (Auto) 0.2, Basophils # (Auto) 0.0, Nucleated Red Blood Cells % (auto) 0.0, Anion Gap 7L, Glomerular Filtration Rate 46.7, Blood Urea Nitrogen 20H, Creatinine 1.56H, Sodium Level 136, Potassium Level 4.0, Chloride Level 101, Carbon Dioxide Level 28, Calcium Level 7.7L, C-R eactive Protein, Quantitative 8.18H 04/30/18 05:24: Prothrombin Time 20.5H, Prothromb Time International Ratio 1.72 CBC/BMP Laboratory Tests 04/30/18 05:23 Red Blood Count 3.15 L, Mean Corpuscular Volume 95.6, Mean Corpuscular Hemoglobin 31.1, Mean Corpuscular Hemoglobin Concent 32.6, Red Cell Distribution Width 19.1 H, Neutrophils (%) (Auto) 80.2 H, Lymphocytes (%) (Auto) 11.9 L, Monocytes (%) (Auto) 5.2 H, Eosinophils (%) (Auto) 1.2, Basophils (%) (Auto) 0.3, Neutrophils # (Auto) 10.4 H, Lymphocytes # (Auto) 1.5, Monocytes # (Auto) 0.7, Eosinophils # (Auto) 0.2, Basophils # (Auto) 0.0, Calcium Level 7.7 L Microbiology Microbiology 04/28/18 Respiratory Virus Panel (PCR) (MANDIE) - Final, Complete 04/27/18 Urine Culture - Final, Complete Indy Lewis Apr 30, 2018 12:58
[2018-04-30 14:00] VITALS: BP 160/80
[2018-04-30] MEDS: VANCOMYCIN HCL 750 MG, VIAL MATE ADAPTER 1 EACH in D5W 250 ML IV SCH (16:25)
[2018-04-30] MEDS ORDERED: WARFARIN SOD 5 MG TAB PO ONE (17:00)
--- NOTE | 2018-04-30 19:26 | IPNPDOC ---
PM&R Progress Note DATE OF SERVICE: Apr 30, 2018 [employer] [employer] Progress Note Subjective: Patient reports he has no significant cough, no fevers or chills, rufus is digesting his meal well. He would like room privileges soon. REVIEW OF SYSTEMS: The following is a completed review of systems and has been reviewed. Review of systems otherwise unremarkable. PAIN: Patient self reports no pain EYES: Negative for recent vision changes or pain EARS, NOSE, & THROAT: blurred vision in right eye (for 2 months), mild dysphagia(improving) CARDIOVASCULAR: denies chest pain or palpitations, +CABG and AVR PULMONARY: Negative. Denies shortness of breath, +trach stoma GASTROINTESTINAL: Negative for diarrhea/constipation, +PEG, +nausea with meals-improving GENITOURINARY: Negative for dysuria MUSCULOSKELETAL: general weakness NEUROLOGICAL: no seizure or tremor SKIN: multiple healed chest tube incisions, sternotomy scar, trach stoma, PEG site, sacral ulcer PSYCHIATRIC: Unremarkable All other review of systems found to be negative. PHYSICAL EXAMINATION: VITAL SIGNS: Please see below. GENERAL: Pleasant and cooperative. No acute distress. HEENT: PERRL. Extraocular movements intact. Clear conjunctiva, +trach stoma CARDIOVASCULAR: Irregular rate and rhythm. No murmurs, rubs, or gallops, +sternal incision-healed LUNGS: Clear to auscultation bilaterally. No wheezes. +LLL rhonchi ABDOMEN: Soft, nontender, nondistended. Positive bowel sounds., +PEG skin c/d/i NEUROLOGICAL: Alert and oriented times three. Cranial nerves II through XII grossly intact. Sensation grossly intact EXTREMITIES: 5-\5 strength bilateral upper extremities. 5-\5 strength right lower extremity. 5-/5 strength in left lower extremity. intact range of motion in left lower extremity SKIN: bilateral chest tube incisions healing well, +sacral stage 1 ulcer, trach site -diffuse ecchymosis in UE and abdomen +RUE PICC in place ASSESSMENT:73-year-old M with past medical history of DM and aortic stenosis who presents status post CABGx6, aortic valve replacement complicated by long hospital course s/p vent-dependence and PEG for dysphagia admitted for debility secondary to multifocal MRSA pneumonia of recent 6vessel CABG, AVR, and vent- dependent respiratory failure and recently diagnosed CVAs. PLAN: 1. Rehab: PT/OT, [facility]- no need for sternal precautions at this time as incision >6 weeks old, advanced diet to regular -Max HR 120 bpm 1. Neuro: diagnosed with Acute right frontal and acute left parietal infarctions on 04-14-18 sustained at [facility] -Carotid ultrasound revealed bilateral 16-49% internal carotid artery narrowing. -Brain MRA reveals mild atherosclerotic irregularity in the proximal posterior cerebral artery on the left. -continue Coumadin for Afib, ASA, and Fenofribrate (allergy to satins) for secondary stroke prevention 2. CArdio: s/p CABG6 vessel and AVR, TTE positive for diastolic CHF, ROSEANN 04-24-18 negative for vegetations, recently diagnosed post-op Afib continue beta-christian, coumadin and ASA- INR management per medicine 3. Resp: Sepsis secondary to Multifocal PNA with MRSA bacteremia on Vancomycin, ID following, recs appreciated-DUonebs -repeat CXR ordered for leukocytosis, no infiltrate on 04/28/18 negative for active disease -Respiratory panel ordered for leukocytosis, negative 04/28/18 4. Endo: pmh DM with possible gastroparesis, continue insulin therapy and will trial off of Metoclopramide, continue to encouraging smaller meals 5. : admission UA and Ucx negative, monitor PVRs 6. DVT ppx: on Coumadin, recent Dopplers negative for DVT, TEds 7. Ortho: T12 compression fracture, no surgery recommended 8. GI: protonix for ppx, [facility] in setting of fluctuating INRs and thrombocytopenia 9. Skin: daily PEG site cleaning- will add bacitracin, and butt paste to sacrum with turning q2h 10. Heme: recent history of thrombocytopenia, improving, s/p 2 units prbcs on 04/28/18 with Hgb around 9, more energetic and feeling well 10. Dispo: 05/06/18, progressing towards goals- will obtain Cardiac outpatient rehab consult for building endurance Allergies Coded Allergies: [place] (Verified Allergy, Severe, ANAPHYLAXIS, 11/09/14) Penicillins (Verified Allergy, Severe, ANAPHYLAXIS, 08/04/14) Metformin (Verified Allergy, Unknown, 02/16/18) Statins (Verified Allergy, Unknown, 02/16/18) Duloxetine (Unverified Adverse Reaction, Mild, N/V, 04/16/18) Vital Signs Vital Signs Date Time Temp Pulse Resp B/P (MAP) Pulse Ox O2 Delivery O2 Flow Rate FiO2 04/30/18 16:29 75 160/80 04/30/18 14:00 97.7 18 97 Room Air Laboratory Data CBC/BMP Laboratory Tests 04/30/18 05:23 Red Blood Count 3.15 L, Mean Corpuscular Volume 95.6, Mean Corpuscular Hemoglobin 31.1, Mean Corpuscular Hemoglobin Concent 32.6, Red Cell Distribution Width 19.1 H, Neutrophils (%) (Auto) 80.2 H, Lymphocytes (%) (Auto) 11.9 L, Monocytes (%) (Auto) 5.2 H, Eosinophils (%) (Auto) 1.2, Basophils (%) (Auto) 0.3, Neutrophils # (Auto) 10.4 H, Lymphocytes # (Auto) 1.5, Monocytes # (Auto) 0.7, Eosinophils # (Auto) 0.2, Basophils # (Auto) 0.0, Calcium Level 7.7 L Labs 24H Laboratory Tests 2 04/29/18 19:36: Bedside Glucose (Misc Panel) 138H 04/30/18 05:23: Immature Granulocyte % (Auto) 1.2, White Blood Count 13.0H, Red Blood Count 3.15L, Hemoglobin 9.8L, Hematocrit 30.1L, Mean Corpuscular Volume 95.6, Mean Corpuscular Hemoglobin 31.1, Mean Corpuscular Hemoglobin Concent 32.6, Red Cell Distribution Width 19.1H, Platelet Count 211, Neutrophils (%) (Auto) 80.2H, Lymphocytes (%) (Auto) 11.9L, Monocytes (%) (Auto) 5.2H, Eosinophils (%) (Auto) 1.2, Basophils (%) (Auto) 0.3, Neutrophils # (Auto) 10.4H, Lymphocytes # (Auto) 1.5, Monocytes # (Auto) 0.7, Eosinophils # (Auto) 0.2, Basophils # (Auto) 0.0, Nucleated Red Blood Cells % (auto) 0.0, Anion Gap 7L, Glomerular Filtration Rate 46.7, Blood Urea Nitrogen 20H, Creatinine 1.56H, Sodium Level 136, Potassium Level 4.0, Chloride Level 101, Carbon Dioxide Level 28, Calcium Level 7.7L, C- Reactive Protein, Quantitative 8.18H 04/30/18 05:24: Prothrombin Time 20.5H, Prothromb Time International Ratio 1.72 Microbiology Microbiology 04/28/18 Respiratory Virus Panel (PCR) (MANDIE) - Final, Complete 04/27/18 Urine Culture - Final, Complete Current Medications Current Medications Current Medications Acetaminophen (Tylenol Tab) 650 mg Q4HP PRN PO MILD PAIN (PS 1-4); Start 04/25/18 at 17:00 Acetylcysteine (Mucomyst 10 % (100mg/ml)) 400 mg RBID INH Last administered on 04/26/18at 08:07; Start 04/25/18 at 20:00; Stop 04/26/18 at 09:24; Status DC Albuterol Sulfate (Proventil Neb) 2.5 mg Q6HP PRN NEB SOB/WHEEZING Last administered on 04/26/18at 08:07; Start 04/25/18 at 20:30 Albuterol Sulfate (Proventil, Ventolin Hfa) 2 puff Q4HP PRN INH SHORTNESS OF BREATH; Start 04/25/18 at 17:00 Albuterol/ Ipratropium (Duoneb (Ipr 0.5mg/Alb 2.5mg)) 3 ml RBID NEB Last administered on 04/30/18at 06:08; Start 04/26/18 at 20:00 Albuterol/ Ipratropium (Duoneb (Ipr 0.5mg/Alb 2.5mg)) 3 ml RBID NEB ; Start 04/30/18 at 20:00 Aspirin (Ecotrin) 81 mg DAILY PO Last administered on 04/30/18at 08:27; Start 04/26/18 at 09:00 Bisacodyl (Dulcolax Suppository) 10 mg DAILYPRN PRN [place] CONSTIPATION; Start 04/25/18 at 17:00 Cetylpyridinium Chloride (Cepacol) 1 chuck Q2HP PRN PO COUGH; Start 04/25/18 at 17:00 Citalopram Hydrobromide (CeleXA) 10 mg DAILY PO Last administered on 04/30/18at 08:28; Start 04/26/18 at 09:00 Dextrose (Dextrose 50%) 25 ml ASDIRECTED PRN IV SEE LABEL COMMENTS; Start 04/25/18 at 17:00 Fenofibrate (Tricor) 145 mg DAILY PO Last administered on 04/30/18at 08:28; Start 04/26/18 at 09:00 Ferrous Gluconate (Fergon) 324 mg BID PO Last administered on 04/30/18at 08:27; Start 04/25/18 at 21:00 Fluticasone Propionate (Flonase 0.05% Nasal [place]) 2 spray DAILY NARES Last administered on 04/30/18at 08:29; Start 04/27/18 at 09:00 Furosemide (Lasix) 20 mg DAILY PO Last administered on 04/30/18at 08:28; Start 04/26/18 at 09:00 Glucagon (Glucagon) 1 mg ASDIRECTED PRN SC SEE LABEL COMMENTS; Start 04/25/18 at 17:00 Glucose (Glucose) 16 GM ASDIRECTED PRN PO SEE LABEL COMMENTS; Start 04/25/18 at 17:00 Guaifenesin (Robitussin Tab) 200 mg Q4HP PRN PO COUGH; Start 04/25/18 at 17:00; Stop 04/30/18 at 17:30; Status DC Guaifenesin (Robitussin Tab) 400 mg TID PO ; Start 04/30/18 at 21:00 Heparin Sodium (Heparin (Flush)) 200 units ASDIRECTED PRN IV SEE LABEL COMMENTS Last administered on 04/29/18at 01:56; Start 04/28/18 at 16:45 Heparin Sodium (Heparin (Flush)) 200 units PICC IV Last administered on 04/30/18at 17:41; Start 04/28/18 at 18:00 Home Med (Med Rec Complete!) ASDIRECTED XX ; Start 04/25/18 at 19:00; Stop 04/25/18 at 19:00; Status DC Insulin Detemir (Levemir Insulin) 5 units QHS SC ; Start 04/25/18 at 21:00; St op 04/25/18 at 22:17; Status DC Insulin Detemir (Levemir Insulin) 5 units QHS SC Last administered on 04/29/18at 21:12; Start 04/26/18 at 21:00 Insulin Human Lispro (HumaLOG INSULIN) SEE PROTOCOL TABLE AC SC Last administered on 04/30/18at 12:20; Start 04/26/18 at 07:30 Insulin Human Lispro (HumaLOG INSULIN) SEE PROTOCOL TABLE QHS SC Last administered on 04/26/18at 22:27; Start 04/26/18 at 21:00 Insulin Human Lispro (HumaLOG INSULIN) See Protocol Table QHS SC ; Start 04/25/18 at 21:00; Stop 04/25/18 at 22:17; Status DC Loratadine (Claritin) 10 mg DAILY PO Last administered on 04/30/18 08:28; Start 04/26/18 at 09:00 Metoclopramide HCl (Reglan) 5 mg ACHS PO Last administered on 04/30/18at 12:20; Start 04/25/18 at 21:00; Stop 04/30/18 at 17:09; Status DC Metoprolol Tartrate (Lopressor) 50 mg BID PO Last administered on 04/30/18 08:28; Start 04/25/18 at 21:00; Stop 04/30/18 at 11:08; Status DC Metoprolol Tartrate (Lopressor) 50 mg TID PO Last administered on 04/30/18at 16:29; Start 04/30/18 at 16:00 Pantoprazole Sodium (Protonix) 40 mg DAILY PO Last administered on 04/30/18 08:28; Start 04/26/18 at 09:00 Senna/Docusate Sodium (Senokot S) 1 tab BID PO Last administered on 04/30/18 08:28; Start 04/25/18 at 21:00 Sodium Chloride ([place] Nasal [place]) 2 spray TID NA Last administered on 04/30/18 16:26; Start 04/26/18 at 16:00 Sodium Chloride ([place] Flush) 10 ml ASDIRECTED PRN IV SEE LABEL COMMENTS Last administered on 04/29/18 01:56; Start 04/28/18 at 16:45 Sodium Chloride ([place] Flush) 10 ml PICC IV Last administered on 04/30/18at 17:41; Start 04/28/18 at 18:00 Vancomycin HCl 750 mg/IV Miscellaneous Supplies 1 each/ Dextrose 275 ml @ 275 mls/hr Q24H IV Last administered on 04/30/18 16:25; Start 04/26/18 at 15:00; Stop 05/04/18 at 14:59 Warfarin Sodium (Coumadin) 6 mg DAILY@17 PO ; Start 04/26/18 at 17:00; Stop 04/27/18 at 14:44; Status DC Zinc Oxide ([place] Butt Paste) sacrum TID TOP Last administered on 04/30/18at 16:26; Start 04/25/18 at 22:18 Zolpidem Tartrate (Ambien) 5 mg QHSP PRN PO INSOMNIA; Start 04/30/18 at 17:15 CACHORRO MEDEL MD Apr 30, 2018 19:26
[2018-04-30 21:00] VITALS: BP 144/78
[2018-04-30] MEDS: guaiFENesin 200 MG TAB PO SCH (22:12)
[2018-04-30] MEDS: LEVEMIR (INSULIN DETEMIR) 1 UNITS/0.01ML SC SCH (22:18)
[2018-05-01 06:00] VITALS: BP 150/80
[2018-05-01] MEDS: SODIUM CHLORIDE 0.9% INJ 10 ML SYR IV SCH ×2 (06:28→17:00)
[2018-05-01 06:48] LABS: BASO # 0.1 10^3/uL (0.0-0.2); BASO % 0.5 % (0.0-1.0); EOS # 0.1 10^3/uL (0.0-0.50); EOS % 1.3 % (0.0-3.0); HEMATOCRIT 27.8 % (42.0-52.0); HEMOGLOBIN 9.3 g/dl (13.5-17.5); LYMPH # 1.4 10^3/uL (1.5-4.5); LYMPH % 12.5 % (24.0-44.0); MEAN CORPUSCULAR HEMOGLOBIN 31.7 pg (27.0-33.0); MEAN CORPUSCULAR HGB CONC 33.5 g/dl (32.0-36.5); MEAN CORPUSCULAR VOLUME 94.9 fl (80.0-96.0); MONO # 0.7 10^3/uL (0.0-0.8); MONO % 6.8 % (0.0-5.0); NEUTROPHILS # 8.4 10^3/uL (1.8-7.7); NEUTROPHILS % 77.8 % (36.0-66.0); PLATELET COUNT, AUTOMATED 214 10^3/uL (150-450); RED BLOOD COUNT 2.93 10^6/uL (4.30-6.10); WHITE BLOOD COUNT 10.8 10^3/uL (4.0-10.0)
[2018-05-01 06:59] LABS: INR 1.48; PROTHROMBIN TIME 18.2 SECONDS (12.1-14.4)
[2018-05-01 07:14] LABS: CALCIUM LEVEL 7.9 MG/DL (8.8-10.2); CREATININE FOR GFR 1.4 MG/DL (0.70-1.30); GLOMERULAR FILTRATION RATE 52.9 (>42); POTASSIUM SERUM 3.9 MEQ/L (3.5-5.1)
[2018-05-01] MEDS: IPRATROPIUM 0.5MG/ALBUTEROL 2.5MG INH SOL UD 3ML (DUONEB)(J7620) NEB SCH ×3 (07:26→20:00)
[2018-05-01] MEDS: PANTOPRAZOLE 40MG TAB (PROTONIX) PO SCH (08:29)
[2018-05-01] MEDS: FUROSEMIDE 20 MG TAB PO SCH (08:29)
[2018-05-01] MEDS: METOPROLOL TART 50 MG TAB PO SCH ×3 (08:30→20:40)
[2018-05-01] MEDS: HumaLOG INSULIN (NovoLOG) PER UNIT SC SCH ×4 (08:30→21:00)
[2018-05-01] MEDS: guaiFENesin 200 MG TAB PO SCH ×3 (08:30→20:40)
[2018-05-01] MEDS: LORATADINE 10 MG TAB PO SCH (08:30)
[2018-05-01] MEDS: ASPIRIN 81 MG ENTERIC TAB PO SCH (08:30)
[2018-05-01] MEDS: FENOFIBRATE 145 MG TAB (TRICOR) PO SCH (08:30)
[2018-05-01] MEDS: SENOKOT S TAB PO SCH ×2 (08:30→20:40)
[2018-05-01] MEDS: FERROUS GLUCONATE 324 MG TAB PO SCH ×2 (08:30→20:40)
[2018-05-01] MEDS: CitaloPRAM (CeleXA) 10 MG TABLET PO SCH (08:30)
[2018-05-01] MEDS: BOUDREAUX'S BUTT PASTE 4OZ TOP SCH ×3 (08:31→21:00)
[2018-05-01] MEDS: FLUTICASONE PROP 0.05% NASAL SPRAY 16 GM (FLONASE) NARES SCH (08:31)
[2018-05-01] MEDS: SODIUM CHLORIDE NASAL 0.65% SPRAY BTL (OCEAN) SCH ×3 (08:31→21:00)
--- NOTE | 2018-05-01 13:31 | IPNPDOC ---
Date Seen The patient was seen on 05/01/18. Progress Note HPI: This patient initially was hospitalized at our facility in Feb 2018 for syncope work up and found incidentally to have a pleural effusion of which he ultimately ended up receiving a chest tube for. He unfortunately sustained a cardiac event in the hospital at that time, he went into coarse ventricular fibrillation requiring defibrillation and ICU stay with intubation, the ultimate decision was made to life flight the patient out of the hospital to [facility] for cardiac procedure and aortic valve replacement. The pt underwent 6 vessel bypass and AV replacement 02/21/18 complicated post-op by anuria, and difficulty with weaning from vent. IABP was apparently placed POD #3. He was also given TPN. He ultimately received a tracheostomy POD #7 according to records. He was maintained on vasopressors as well in ICU and treated with ciprofloxacin, vancomycin and aztreonam for supposed sepsis, he did have a sputum culture that was positive for GNR and was found to have a possible left sided pneumonia. He had poor output post-op anuric and received CRRT while hospitalized at [facility] ICU. Hematology was also consulted for thrombocytopenia and placed on IV argatroban due to worsening thrombocytopenia until a repeat (first KITTY negative) KITTY confirmed negative HIT. He did experience bradycardia and junctional rhythm while in ICU, AV paced. According to notes, he was eventually weaned off of vasopressors and renal function did improve. PEG tube had been placed on 03.14.18. B/L chest tubes were removed on 04.10.18. He also experienced post-op a. fib and was started on and remains on Coumadin for this. The pt was transferred to ARU, Dr Lezama, 04/11/18-04/18/18. The pt was treated 04/18/18-04/25/18 [facility] for multifocal pneumonia and gastroparesis. Now transferred back to ARU, Dr Lezama to continue rehabilitation. The pt has been OOB with therapy today, feeling stronger. Denies any fevers, chills, weakness, fatigue, Headache, Chest Pain, Shortness of breath, cough, palpitations, abdominal pain, N/V/D or changes in bowel or bladder habits. PE: GEN: 73yoM, appears stated age. No acute distress. Alert and oriented x 3. HEENT: Normocephalic, atraumatic. Sclera are nonicteric. Conjunctiva without injection. No facial asymmetry. Moist mucous membranes. Neck supple. CHEST: Regular rate and rhythm, +S1, +S2 LUNGS: Clear to auscultation bilaterally. No wheezes, rales, or rhonchi. Breathing appears symmetric and easy. ABD: Round, soft, non-tender, non-distended. +Bowel sounds throughout. No rebound or guarding. EXT: No lower extremity edema appreciated. SKIN: [place], dry, warm. No rashes. NEURO: Alert and oriented x 3. No focal deficits appreciated. A&P: Debility. PT/OT/ST as per ARU Disposition as per ARU DVT prophylaxis. Pt is on Coumadin. Bowel care as per ARU. pain control as per ARU. s/p Sepsis - 2/2 multifocal pneumonia, and MRSA bacteremia Afebrile. WBC 10.8 CRP has been downtrending, 8.18. Blood cultures have been negative Transesophageal echocardiogram 04/18/18 with no signs of vegetations Infectious disease has recommended vancomycin IV for 2 weeks duration (to be completed on 05/04/2018) s/p Thrombocytopenia. Resolved. Macrocytic anemia No signs of bleeding Folate and B12 remain normal s/p 1 unit PRBC transfusion on 04/20/2018, 2U 04/28/18 monitor need for transfusion. Hgb 9.3. CKD3 Creatinine appears to be at baseline SCr 1.48 Monitor. DM2 ISS Levemir Possible gastroparesis Modified diet ST as per ARU. Acute R frontal / Acute L parietal infarctions - likely 2/2 atrial fibrillation MRI on 04/14/2018 ASA and Fenofibrate Warfarin CAD s/p 6 vessel CABG and AV replacement ASA, Fenofibrate Warfarin HTN BP well controlled Metoprolol, Lasix Post-operative atrial fibrillation rate / rhythm control with metoprolol INR 1.48. Coumadin 6 mg today. (5 mg 04/30/18). Monitor daily INR. Mild wedge compression fracture at T12 PT / OT Depression Citalopram Allergies Loratadine GERD Protonix VS, I&O, 24H, Fishbone Vital Signs/I&O Vital Signs Date Time Temp Pulse Resp B/P (MAP) Pulse Ox O2 Delivery O2 Flow Rate FiO2 05/01/18 08:30 87 150/80 05/01/18 06:00 98.1 20 91 Room Air I&O- Last 24 Hours up to 6 AM 05/01/18 06:00 Intake Total 1220 ml Balance 1220 ml Laboratory Data 24H LABS Laboratory Tests 2 04/30/18 16:32: Bedside Glucose (Misc Panel) 93 04/30/18 21:38: Bedside Glucose (Misc Panel) 183H 05/01/18 06:35: Immature Granulocyte % (Auto) 1.1, White Blood Count 10.8H, Red Blood Count 2.93L, Hemoglobin 9.3L, Hematocrit 27.8L, Mean Corpuscular Volume 94.9, Mean Corpuscular Hemoglobin 31.7, Mean Corpuscular Hemoglobin Concent 33.5, Red Cell Distribution Width 18.3H, Platelet Count 214, Neutrophils (%) (Auto) 77.8H, Lymphocytes (%) (Auto) 12.5L, Monocytes (%) (Auto) 6.8H, Eosinophils (%) (Auto) 1.3, Basophils (%) (Auto) 0.5, Neutrophils # (Auto) 8.4H, Lymphocytes # (Auto) 1.4L, Monocytes # (Auto) 0.7, Eosinophils # (Auto) 0.1, Basophils # (Auto) 0.1, Nucleated Red Blood Cells % (auto) 0.0, Prothrombin Time 18.2H, Prothromb Time International Ratio 1.48, Anion Gap 6L, Glomerular Filtration Rate 52.9, Blood Urea Nitrogen 21H, Creatinine 1.40H, Sodium Level 135L, Potassium Level 3.9, Chloride Level 102, Carbon Dioxide Level 27, Calcium Level 7.9L CBC/BMP Laboratory Tests 05/01/18 06:35 Red Blood Count 2.93 L, Mean Corpuscular Volume 94.9, Mean Corpuscular Hemoglobin 31.7, Mean Corpuscular Hemoglobin Concent 33.5, Red Cell Distribution Width 18.3 H, Neutrophils (%) (Auto) 77.8 H, Lymphocytes (%) (Auto) 12.5 L, Monocytes (%) (Auto) 6.8 H, Eosinophils (%) (Auto) 1.3, Basophils (%) (Auto) 0.5, Neutrophils # (Auto) 8.4 H, Lymphocytes # (Auto) 1.4 L, Monocytes # (Auto) 0.7, Eosinophils # (Auto) 0.1, Basophils # (Auto) 0.1, Calcium Level 7.9 L Microbiology Microbiology 04/28/18 Respiratory Virus Panel (PCR) (MANDIE) - Final, Complete 04/27/18 Urine Culture - Final, Complete Indy Lewis May 01, 2018 13:31
[2018-05-01 14:00] VITALS: BP 156/78
--- NOTE | 2018-05-01 14:55 | PHACANCOPD ---
PHARMACY VANCOMYCIN DOSING Pt Demographics Demographics Patient Age:73 , Weight:77.800 , Gender: male Adjusted Body Weight Date: 05/01/18, Adjusted Body Weight: Kg Events Past 24 Hours Events Past 24 Hours: NO: Dialysis, Diuretic Therapy, Change in CrCl, Fever, Elevation in WBC, Pending Diagnostics, Pending Procedures, Other Vancomycin Vancomycin Target Ranges: 10-20 mcg/ml Vancomycin Load Y/N: No Load Dose Date Time Vancomycin Load Dose: Date: Time: Vancomycin Dose Date: 05/01/18. Current Vancomycin Dose: Intermittent Dosing?: No Labs Labs Vital Signs Label Value Date Time Patient Temperature 98.1 degrees F 05/01/18 0600 Temperature Source Temporal 05/01/18 0600 Patient Temperature 98.4 degrees F 04/30/18 2100 Temperature Source Temporal 04/30/18 2100 Patient Temperature 97.7 degrees F 04/30/18 1400 Temperature Source Temporal 04/30/18 1400 Item Value Date Time White Blood Count 10.8 10^3/uL H 05/01/18 0635 White Blood Count 13.0 10^3/uL H 04/30/18 0523 White Blood Count 11.7 10^3/uL H 04/29/18 0548 Creatinine 1.40 MG/DL H 05/01/18 0635 Creatinine 1.56 MG/DL H 04/30/18 0523 Creatinine 1.55 MG/DL H 04/29/18 0548 Vancomycin Level Trough 13.5 UG/ML 05/01/18 1351 Vancomycin Level Trough 15.6 UG/ML 04/28/18 1531 Micro Microbiology 04/28/18 Respiratory Virus Panel (PCR) (MANDIE) - Final, Complete 04/27/18 Urine Culture - Final, Complete Creatinine Clearance Date:05/01/18. Creatinine Clearance: . Assessment and Plan Maintaining Current Dose?: Yes Reason for dose change: No Dose Change Pharmacist Note Pharmacist Note Date: 05/01/18. Pharmacist note: Trough today resulted at 13.5mcg/ml. Pt. is nearing end of treatment. Will continue current dose until finished 05/04 unless renal function changes significantly before then. KRYSTYNA CORREIA PHARMACY May 01, 2018 14:55
[2018-05-01] MEDS: VANCOMYCIN HCL 750 MG, VIAL MATE ADAPTER 1 EACH in D5W 250 ML IV SCH (15:34)
[2018-05-01] MEDS ORDERED: WARFARIN SOD 3 MG TAB PO ONE (17:00)
[2018-05-01 20:00] VITALS: BP 158/80
--- NOTE | 2018-05-01 20:22 | IPN ---
DATE: 05/01/2018 Mr. Pabon was seen in rehab. He seems to be doing very well. He has no cough or shortness of breath. No fever or chills. No chest pain. He is on IV vancomycin and tolerating well. He is being treated for Methicillin-resistant Staphylococcus aureus (MRSA) bacteremia diagnosed on April 19 in one out of two blood cultures. The patient has been on IV vancomycin since then. He underwent a transesophageal echocardiogram done by Dr. Peng on April 24 to rule out vegetation of his prosthetic valve; that was negative. He has a normal functioning aortic bioprosthesis, moderate mitral insufficiency, mild tricuspid insufficiency and normal flow right-sided and left-sided pulmonary veins. The patient remains afebrile for the past 10 days. Temperature is 98.2, pulse 79, respirations 20, blood pressure 156/78, O2 sat 98% on room air. Heart: Normal S1,S2 with a holosystolic ejection murmur 2/6 best heard at the left upper sternal border. Lungs are clear. No wheezes, rales or rhonchi. Abdomen is soft, nontender. No hepatosplenomegaly. Extremities: No edema. LABORATORY DATA White count is 10.8, hemoglobin 9.3, hematocrit 27.8, platelets 214, 78% neutrophils, 12% lymphocytes, 7% monocytes. Sodium 135, potassium 3.9, chloride 102, bicarb 27, BUN 21, creatinine 1.4, glucose 177, calcium 7.9, CRP 8.18 down from 23.6 on April 22. Blood cultures one out of two was positive on April 19. Negative on April 20 and . IMPRESSION/ PLAN MRSA pneumonia with bacteremia in a patient who had a recent aortic bioprosthesis done February 2018. The patient has no evidence of endocarditis by transesophageal echocardiogram done 5 days after bacteremia. He will be treated with a total of 14 days of IV vancomycin from negative cultures. End of therapy would be May 04. The patient anticipated discharge home in May 05. The case has been discussed with Dr. Lezama. FABRICIO
[2018-05-01] MEDS: LEVEMIR (INSULIN DETEMIR) 1 UNITS/0.01ML SC SCH (20:39)
[2018-05-01] MEDS: zolPIDEM TARTRATE 5 MG TAB PO PRN (20:40)
--- NOTE | 2018-05-01 21:31 | IPNPDOC ---
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 He is happy to have room privileges and to attend outpatient cardiac ther apy as outpatient, REVIEW OF SYSTEMS: The following is a completed review of systems and has been r eviewed. Review of systems otherwise unremarkable. PAIN: Patient self reports no pain EYES: Negative for recent vision changes or pain EARS, NOSE, & THROAT: blurred vision in right eye (for 2 months-improving), mild dysphagia-rsolved CARDIOVASCULAR: denies chest pain or palpitations, +CABG and AVR PULMONARY: Negative. Denies shortness of breath, +trach stoma GASTROINTESTINAL: Negative for diarrhea/constipation, +PEG, +nausea with meals- improving GENITOURINARY: Negative for dysuria MUSCULOSKELETAL: general weakness NEUROLOGICAL: no seizure or tremor SKIN: multiple healed chest tube incisions, sternotomy scar, trach stoma, PEG site, sacral ulcer PSYCHIATRIC: Unremarkable All other review of systems found to be negative. PHYSICAL EXAMINATION: VITAL SIGNS: Please see below. GENERAL: Pleasant and cooperative. No acute distress. HEENT: PERRL. Extraocular movements intact. Clear conjunctiva, +trach stoma CARDIOVASCULAR: Irregular rate and rhythm. No murmurs, rubs, or gallops, +sternal incision-healed LUNGS: Clear to auscultation bilaterally. No wheezes. +LLL rhonchi ABDOMEN: Soft, nontender, nondistended. Positive bowel sounds., +PEG skin c/d/i NEUROLOGICAL: Alert and oriented times three. Cranial nerves II through XII grossly intact. Sensation grossly intact EXTREMITIES: 5-\5 strength bilateral upper extremities. 5-\5 strength right lower extremity. 5-/5 strength in left lower extremity. intact range of motion in left lower extremity SKIN: bilateral chest tube incisions healing well, +sacral stage 1 ulcer, trach site -diffuse ecchymosis in UE and abdomen +RUE PICC in place ASSESSMENT:73-year-old M with past medical history of DM and aortic stenosis who presents status post CABGx6, aortic valve replacement complicated by long hospital course s/p vent-dependence and PEG for dysphagia admitted for debility secondary to multifocal MRSA pneumonia of recent 6vessel CABG, AVR, and vent- dependent respiratory failure and recently diagnosed CVAs. PLAN: 1. 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 Neuro: diagnosed with Acute right frontal and acute left parietal infarctions on 04-14-18 sustained at [facility] -Carotid ultrasound revealed bilateral 16-49% internal carotid artery narrowing. -Brain MRA reveals mild atherosclerotic irregularity in the proximal posterior cerebral artery on the left. -continue Coumadin for Afib, ASA, and Fenofribrate (allergy to satins) for secondary stroke prevention 2. CArdio: s/p CABG6 vessel and AVR, TTE positive for diastolic CHF, ROSEANN 04-24-18 negative for vegetations, recently diagnosed post-op Afib continue beta-christian, coumadin and ASA- INR management per medicine 3. Resp: Sepsis secondary to Multifocal PNA with MRSA bacteremia on Vancomycin stop date 05/04/18, ID following, recs appreciated-DUonebs -repeat CXR ordered for leukocytosis, no infiltrate on 04/28/18 negative for active disease -Respiratory panel ordered for leukocytosis, negative 04/28/18 will reorder today for low grade temp 99.1 4. Endo: pmh DM with possible gastroparesis, continue insulin therapy and will trial off of Metoclopramide, continue to encouraging smaller meals-patient denies any postprandial nausea 5. : admission UA and Ucx negative, monitor PVRs 6. DVT ppx: on Coumadin, recent Dopplers negative for DVT, TEds 7. Ortho: T12 compression fracture, no surgery recommended 8. GI: protonix for ppx, will defer PEG removal for [facility] surgeon in setting of fluctuating INRs and thrombocytopenia 9. Skin: daily PEG site cleaning- will add bacitracin, and butt paste to sacrum with turning q2h 10. Heme: recent history of thrombocytopenia, improving, s/p 2 units prbcs on 04/28/18 with Hgb around 9, more energetic and feeling well 10. Dispo: 05/06/18, progressing towards goals- Cardiac outpatient rehab consult for building endurance Allergies Coded Allergies: Nimitz (Verified Allergy, Severe, ANAPHYLAXIS, 11/09/14) Penicillins (Verified Allergy, Severe, ANAPHYLAXIS, 08/04/14) Metformin (Verified Allergy, Unknown, 02/16/18) Statins (Verified Allergy, Unknown, 02/16/18) Duloxetine (Unverified Adverse Reaction, Mild, N/V, 04/16/18) Vital Signs Vital Signs Date Time Temp Pulse Resp B/P (MAP) Pulse Ox O2 Delivery O2 Flow Rate FiO2 05/01/18 20:40 80 158/80 05/01/18 20:00 99.1 18 95 Room Air Laboratory Data CBC/BMP Laboratory Tests 05/01/18 06:35 Red Blood Count 2.93 L, Mean Corpuscular Volume 94.9, Mean Corpuscular Hemoglobin 31.7, Mean Corpuscular Hemoglobin Concent 33.5, Red Cell Distribution Width 18.3 H, Neutrophils (%) (Auto) 77.8 H, Lymphocytes (%) (Auto) 12.5 L, Mo nocytes (%) (Auto) 6.8 H, Eosinophils (%) (Auto) 1.3, Basophils (%) (Auto) 0.5, Neutrophils # (Auto) 8.4 H, Lymphocytes # (Auto) 1.4 L, Monocytes # (Auto) 0.7, Eosinophils # (Auto) 0.1, Basophils # (Auto) 0.1, Calcium Level 7.9 L Labs 24H Laboratory Tests 2 04/30/18 21:38: Bedside Glucose (Misc Panel) 183H 05/01/18 06:35: Immature Granulocyte % (Auto) 1.1, White Blood Count 10.8H, Red Blood Count 2.93L, Hemoglobin 9.3L, Hematocrit 27.8L, Mean Corpuscular Volume 94.9, Mean Corpuscular Hemoglobin 31.7, Mean Corpuscular Hemoglobin Concent 33.5, Red Cell Distribution Width 18.3H, Platelet Count 214, Neutrophils (%) (Auto) 77.8H, Lymphocytes (%) (Auto) 12.5L, Monocytes (%) (Auto) 6.8H, Eosinophils (%) (Auto) 1.3, Basophils (%) (Auto) 0.5, Neutrophils # (Auto) 8.4H, Lymphocytes # (Auto) 1.4L, Monocytes # (Auto) 0.7, Eosinophils # (Auto) 0.1, Basophils # (Auto) 0.1, Nucleated Red Blood Cells % (auto) 0.0, Prothrombin Time 18.2H, Prothromb Time International Ratio 1.48, Anion Gap 6L, Glomerular Filtration Rate 52.9, Blood Urea Nitrogen 21H, Creatinine 1.40H, Sodium Level 135L, Potassium Level 3.9, Chloride Level 102, Carbon Dioxide Level 27, Calcium Level 7.9L 05/01/18 07:17: Bedside Glucose (Misc Panel) 179H 05/01/18 11:45: Bedside Glucose (Misc Panel) 228H 05/01/18 13:51: Vancomycin Level Trough 13.5 05/01/18 16:31: Bedside Glucose (Misc Panel) 232H 05/01/18 20:38: Bedside Glucose (Misc Panel) 167H Microbiology Microbiology 04/28/18 Respiratory Virus Panel (PCR) (MANDIE) - Final, Complete 04/27/18 Urine Culture - Final, Complete Current Medications Current Medications Current Medications Acetaminophen (Tylenol Tab) 650 mg Q4HP PRN PO MILD PAIN (PS 1-4); Start 04/25/18 at 17:00 Acetylcysteine (Mucomyst 10 % (100mg/ml)) 400 mg RBID INH Last administered on 04/26/18at 08:07; Start 04/25/18 at 20:00; Stop 04/26/18 at 09:24; Status DC Albuterol Sulfate (Proventil Neb) 2.5 mg Q6HP PRN NEB SOB/WHEEZING Last ad ministered on 04/26/18at 08:07; Start 04/25/18 at 20:30 Albuterol Sulfate (Proventil, Ventolin Hfa) 2 puff Q4HP PRN INH SHORTNESS OF BREATH; Start 04/25/18 at 17:00 Albuterol/ Ipratropium (Duoneb (Ipr 0.5mg/Alb 2.5mg)) 3 ml RBID NEB Last administered on 05/01/18at 07:26; Start 04/26/18 at 20:00; Stop 05/01/18 at 12:09; Status DC Albuterol/ Ipratropium (Duoneb (Ipr 0.5mg/Alb 2.5mg)) 3 ml RBID NEB ; Start 04/30/18 at 20:00 Aspirin (Ecotrin) 81 mg DAILY PO Last administered on 05/01/18at 08:30; Start 04/26/18 at 09:00 Bisacodyl (Dulcolax Suppository) 10 mg DAILYPRN PRN VT CONSTIPATION; Start at 17:00 Cetylpyridinium Chloride (Cepacol) 1 chuck Q2HP PRN PO COUGH; Start 04/25/18 at 17:00 Citalopram Hydrobromide (CeleXA) 10 mg DAILY PO Last administered on 05/01/18at 08:30; Start 04/26/18 at 09:00 Dextrose (Dextrose 50%) 25 ml ASDIRECTED PRN IV SEE LABEL COMMENTS; Start 04/25/18 at 17:00 Fenofibrate (Tricor) 145 mg DAILY PO Last administered on 05/01/18at 08:30; Start 04/26/18 at 09:00 Ferrous Gluconate (Fergon) 324 mg BID PO Last administered on 05/01/18at 20:40; Start 04/25/18 at 21:00 Fluticasone Propionate (Flonase 0.05% Nasal [place]) 2 spray DAILY NARES Last administered on 05/01/18at 08:31; Start 04/27/18 at 09:00 Furosemide (Lasix) 20 mg DAILY PO Last administered on 05/01/18at 08:29; Start 04/26/18 at 09:00 Glucagon (Glucagon) 1 mg ASDIRECTED PRN SC SEE LABEL COMMENTS; Start 04/25/18 at 17:00 Glucose (Glucose) 16 GM ASDIRECTED PRN PO SEE LABEL COMMENTS; Start 04/25/18 at 17:00 Guaifenesin (Robitussin Tab) 200 mg Q4HP PRN PO COUGH; Start 04/25/18 at 17:00; Stop 04/30/18 at 17:30; Status DC Guaifenesin (Robitussin Tab) 400 mg TID PO Last administered on 05/01/18at 20:40; Start 04/30/18 at 21:00 Heparin Sodium (Heparin (Flush)) 200 units ASDIRECTED PRN IV SEE LABEL COMMENTS Last administered on 04/29/18at 01:56; Start 04/28/18 at 16:45 Heparin Sodium (Heparin (Flush)) 200 units PICC IV Last administered on 05/01/18at 17:00; Start 04/28/18 at 18:00 Home Med (Med Rec Complete!) ASDIRECTED XX ; Start 04/25/18 at 19:00; Stop 04/25/18 at 19:00; Status DC Insulin Detemir (Levemir Insulin) 5 units QHS SC ; Start 04/25/18 at 21:00; Stop 04/25/18 at 22:17; Status DC Insulin Detemir (Levemir Insulin) 5 units QHS SC Last administered on 05/01/18at 20:39; Start 04/26/18 at 21:00 Insulin Human Lispro (HumaLOG INSULIN) SEE PROTOCOL TABLE AC SC Last adminis tered on 05/01/18at 16:58; Start 04/26/18 at 07:30 Insulin Human Lispro (HumaLOG INSULIN) SEE PROTOCOL TABLE QHS SC Last administered on 04/26/18at 22:27; Start 04/26/18 at 21:00 Insulin Human Lispro (HumaLOG INSULIN) See Protocol Table QHS SC ; Start 04/25/18 at 21:00; Stop 04/25/18 at 22:17; Status DC Loratadine (Claritin) 10 mg DAILY PO Last administered on 05/01/18at 08:30; Start 04/26/18 at 09:00 Metoclopramide HCl (Reglan) 5 mg ACHS PO Last administered on 04/30/18at 12:20; Start 04/25/18 at 21:00; Stop 04/30/18 at 17:09; Status DC Metoprolol Tartrate (Lopressor) 50 mg BID PO Last administered on 04/30/18at 08:28; Start 04/25/18 at 21:00; Stop 04/30/18 at 11:08; Status DC Metoprolol Tartrate (Lopressor) 50 mg TID PO Last administered on 05/01/18at 20:40; Start 04/30/18 at 16:00 Pantoprazole Sodium (Protonix) 40 mg DAILY PO Last administered on 05/01/18 08:29; Start 04/26/18 at 09:00 Senna/Docusate Sodium (Senokot S) 1 tab BID PO Last administered on 05/01/18at 20:40; Start 04/25/18 at 21:00 Sodium Chloride ([place] Nasal Railroad) 2 spray TID NA Last administered on 05/01/18at 21:00; Start 04/26/18 at 16:00 Sodium Chloride ([place] Flush) 10 ml ASDIRECTED PRN IV SEE LABEL COMMENTS Last administered on 04/29/18at 01:56; Start 04/28/18 at 16:45 Sodium Chloride (Sal[place] Flush) 10 ml PICC IV Last administered on 05/01/18at 17:00; Start 04/28/18 at 18:00 Vancomycin HCl 750 mg/IV Miscellaneous Supplies 1 each/ Dextrose 275 ml @ 275 mls/hr Q24H IV Last administered on 05/01/18 15:34; Start 04/26/18 at 15:00; Stop 05/04/18 at 14:59 Warfarin Sodium (Coumadin) 6 mg DAILY@17 PO ; Start 04/26/18 at 17:00; Stop 04/27/18 at 14:44; Status DC Zinc Oxide (B[place]auxs Butt Paste) sacrum TID TOP Last administered on 05/01/18 21:00; Start 04/25/18 at 22:18 Zolpidem Tartrate (Ambien) 5 mg QHSP PRN PO INSOMNIA Last administered on 05/01/18at 20:40; Start 04/30/18 at 17:15 CACHORRO MEDEL MD May 01, 2018 21:31
[2018-05-02] MEDS: SODIUM CHLORIDE 0.9% INJ 10 ML SYR IV SCH ×2 (05:57→16:57)
[2018-05-02 06:00] VITALS: BP 162/88
[2018-05-02 06:23] LABS: BASO # 0.1 10^3/uL (0.0-0.2); BASO % 0.5 % (0.0-1.0); EOS # 0.1 10^3/uL (0.0-0.50); EOS % 1.1 % (0.0-3.0); HEMATOCRIT 28.8 % (42.0-52.0); HEMOGLOBIN 9.3 g/dl (13.5-17.5); LYMPH # 1.4 10^3/uL (1.5-4.5); LYMPH % 12.6 % (24.0-44.0); MEAN CORPUSCULAR HEMOGLOBIN 31.5 pg (27.0-33.0); MEAN CORPUSCULAR HGB CONC 32.3 g/dl (32.0-36.5); MEAN CORPUSCULAR VOLUME 97.6 fl (80.0-96.0); MONO % 8.9 % (0.0-5.0); NEUTROPHILS # 8.4 10^3/uL (1.8-7.7); PLATELET COUNT, AUTOMATED 226 10^3/uL (150-450); RED BLOOD COUNT 2.95 10^6/uL (4.30-6.10); WHITE BLOOD COUNT 11.1 10^3/uL (4.0-10.0)
[2018-05-02 06:43] LABS: INR 1.63; PROTHROMBIN TIME 19.6 SECONDS (12.1-14.4)
[2018-05-02 06:45] LABS: CALCIUM LEVEL 7.8 MG/DL (8.8-10.2); CREATININE FOR GFR 1.46 MG/DL (0.70-1.30); GLOMERULAR FILTRATION RATE 50.4 (>42); POTASSIUM SERUM 3.8 MEQ/L (3.5-5.1)
[2018-05-02] MEDS: HumaLOG INSULIN (NovoLOG) PER UNIT SC SCH ×4 (08:05→21:00)
[2018-05-02] MEDS: PANTOPRAZOLE 40MG TAB (PROTONIX) PO SCH (08:06)
[2018-05-02] MEDS: FERROUS GLUCONATE 324 MG TAB PO SCH ×2 (08:06→20:58)
[2018-05-02] MEDS: METOPROLOL TART 50 MG TAB PO SCH ×3 (08:06→20:58)
[2018-05-02] MEDS: FUROSEMIDE 20 MG TAB PO SCH (08:06)
[2018-05-02] MEDS: LORATADINE 10 MG TAB PO SCH (08:06)
[2018-05-02] MEDS: ASPIRIN 81 MG ENTERIC TAB PO SCH (08:06)
[2018-05-02] MEDS: CitaloPRAM (CeleXA) 10 MG TABLET PO SCH (08:06)
[2018-05-02] MEDS: BOUDREAUX'S BUTT PASTE 4OZ TOP SCH ×3 (08:07→21:00)
[2018-05-02] MEDS: FENOFIBRATE 145 MG TAB (TRICOR) PO SCH (08:07)
[2018-05-02] MEDS: SENOKOT S TAB PO SCH ×2 (08:07→20:58)
[2018-05-02] MEDS: FLUTICASONE PROP 0.05% NASAL SPRAY 16 GM (FLONASE) NARES SCH (08:07)
[2018-05-02] MEDS: SODIUM CHLORIDE NASAL 0.65% SPRAY BTL (OCEAN) SCH ×3 (08:07→21:00)
[2018-05-02] MEDS: guaiFENesin 200 MG TAB PO SCH ×3 (08:07→20:59)
[2018-05-02] MEDS: BACITRACIN OINT 30GM TOP SCH (09:00)
[2018-05-02] MEDS: EUCERIN 120GM CREAM TOP SCH ×2 (09:00→20:59)
[2018-05-02 09:23] LABS: C REACTIVE PROTEIN QUANTITATIV 6.51 MG/DL (0.00-0.30)
[2018-05-02] MEDS: IPRATROPIUM 0.5MG/ALBUTEROL 2.5MG INH SOL UD 3ML (DUONEB)(J7620) NEB SCH ×2 (11:58→20:00)
--- NOTE | 2018-05-02 13:38 | IPNPDOC ---
Date Seen The patient was seen on 05/02/18. Progress Note HPI: This patient initially was hospitalized at our facility in Feb 2018 for syncope work up and found incidentally to have a pleural effusion of which he ultimately ended up receiving a chest tube for. He unfortunately sustained a cardiac event in the hospital at that time, he went into coarse ventricular fibrillation requiring defibrillation and ICU stay with intubation, the ultimate decision was made to life flight the patient out of the hospital to [facility] for cardiac procedure and aortic valve replacement. The pt underwent 6 vessel bypass and AV replacement 02/21/18 complicated post-op by anuria, and difficulty with weaning from vent. IABP was apparently placed POD #3. He was also given TPN. He ultimately received a tracheostomy POD #7 according to records. He was maintained on vasopressors as well in ICU and treated with ciprofloxacin, vancomycin and aztreonam for supposed sepsis, he did have a sputum culture that was positive for GNR and was found to have a possible left sided pneumonia. He had poor output post-op anuric and received CRRT while hospitalized at [facility] ICU. Hematology was also consulted for thrombocytopenia and placed on IV argatroban due to worsening thrombocytopenia until a repeat (first KITTY negative) KITTY confirmed negative HIT. He did experience bradycardia and junctional rhythm while in ICU, AV paced. According to notes, he was eventually weaned off of vasopressors and renal function did improve. PEG tube had been placed on 03.14.18. B/L chest tubes were removed on 04.10.18. He also experienced post-op a. fib and was started on and remains on Coumadin for this. The pt was transferred to ARU, Dr Lezama, 04/11/18-04/18/18. The pt was treated 04/18/18-04/25/18 [facility] for multifocal pneumonia and gastroparesis. Now transferred back to ARU, Dr Lezama to continue rehabilitation. The pt is sitting on the side of bed for lunch. No verbalized concerns. Denies any fevers, chills, weakness, fatigue, Headache, Chest Pain, Shortness of breath, cough, palpitations, abdominal pain, N/V/D or changes in bowel or bladder habits. PE: GEN: 73yoM, appears stated age. No acute distress. Alert and oriented x 3. HEENT: Normocephalic, atraumatic. Sclera are nonicteric. Conjunctiva without injection. No facial asymmetry. Moist mucous membranes. Neck supple. CHEST: Regular rate and rhythm, +S1, +S2 LUNGS: Clear to auscultation bilaterally. No wheezes, rales, or rhonchi. Breathing appears symmetric and easy. ABD: Round, soft, non-tender, non-distended. +Bowel sounds throughout. No rebound or guarding. EXT: No lower extremity edema appreciated. SKIN: [place], dry, warm. No rashes. NEURO: Alert and oriented x 3. No focal deficits appreciated. A&P: Debility. PT/OT/ST as per ARU Disposition as per ARU DVT prophylaxis. Pt is on Coumadin. Bowel care as per ARU. pain control as per ARU. s/p Sepsis - 2/2 multifocal pneumonia, and MRSA bacteremia Afebrile. WBC 11.1 CRP has been downtrending, 8.18. Blood cultures have been negative Transesophageal echocardiogram 04/18/18 with no signs of vegetations Infectious disease has recommended vancomycin IV for 2 weeks duration (to be completed on 05/04/2018) s/p Thrombocytopenia. Resolved. Macrocytic anemia No signs of bleeding Folate and B12 remain normal s/p 1 unit PRBC transfusion on 04/20/2018, 2U 04/28/18 monitor need for transfusion. Hgb 9.3. CKD3 Creatinine appears to be at baseline SCr 1.63 Monitor. DM2 ISS Levemir Possible gastroparesis Modified diet ST as per ARU. Acute R frontal / Acute L parietal infarctions - likely 2/2 atrial fibrillation MRI on 04/14/2018 ASA and Fenofibrate Warfarin CAD s/p 6 vessel CABG and AV replacement ASA, Fenofibrate Warfarin HTN BP well controlled Metoprolol, Lasix Post-operative atrial fibrillation rate / rhythm control with metoprolol Coumadin 6 mg today. INR 1.63 trending upward. Monitor daily INR. Mild wedge compression fracture at T12 PT / OT Depression Citalopram Allergies Loratadine GERD Protonix VS, I&O, 24H, Fishbone Vital Signs/I&O Vital Signs Date Time Temp Pulse Resp B/P (MAP) Pulse Ox O2 Delivery O2 Flow Rate FiO2 05/02/18 08:06 86 162/92 05/02/18 06:00 98.7 18 94 Room Air I&O- Last 24 Hours up to 6 AM 05/02/18 06:00 Intake Total 1920 ml Balance 1920 ml Laboratory Data 24H LABS Laboratory Tests 2 05/01/18 13:51: Vancomycin Level Trough 13.5 05/01/18 16:31: Bedside Glucose (Misc Panel) 232H 05/01/18 20:38: Bedside Glucose (Misc Panel) 167H 05/02/18 06:01: Bedside Glucose (Misc Panel) 190H 05/02/18 06:06: Immature Granulocyte % (Auto) 0.9, White Blood Count 11.1H, Red Blood Count 2.95L, Hemoglobin 9.3L, Hematocrit 28.8L, Mean Corpuscular Volume 97.6H, Mean Corpuscular Hemoglobin 31.5, Mean Corpuscular Hemoglobin Concent 32.3, Red Cell Distribution Width 18.3H, Platelet Count 226, Neutrophils (%) (Auto) 76.0H, Lymphocytes (%) (Auto) 12.6L, Monocytes (%) (Auto) 8.9H, Eosinophils (%) (Auto) 1.1, Basophils (%) (Auto) 0.5, Neutrophils # (Auto) 8.4H, Lymphocytes # (Auto) 1.4L, Monocytes # (Auto) 1.0H, Eosinophils # (Auto) 0.1, Basophils # (Auto) 0.1, Nucleated Red Blood Cells % (auto) 0.0, Prothrombin Time 19.6H, Prothromb Time International Ratio 1.63, Anion Gap 8, Glomerular Filtration Rate 50.4, Blood Ur ea Nitrogen 22H, Creatinine 1.46H, Sodium Level 138, Potassium Level 3.8, Chloride Level 104, Carbon Dioxide Level 26, Calcium Level 7.8L, C-Reactive Protein, Quantitative 6.51H 05/02/18 11:30: Bedside Glucose (Misc Panel) 216H CBC/BMP Laboratory Tests 05/02/18 06:06 Red Blood Count 2.95 L, Mean Corpuscular Volume 97.6 H, Mean Corpuscular Hemoglobin 31.5, Mean Corpuscular Hemoglobin Concent 32.3, Red Cell Distribution Width 18.3 H, Neutrophils (%) (Auto) 76.0 H, Lymphocytes (%) (Auto) 12.6 L, Monocytes (%) (Auto) 8.9 H, Eosinophils (%) (Auto) 1.1, Basophils (%) (Auto) 0.5, Neutrophils # (Auto) 8.4 H, Lymphocytes # (Auto) 1.4 L, Monocytes # (Auto) 1.0 H, Eosinophils # (Auto) 0.1, Basophils # (Auto) 0.1, Calcium Level 7.8 L Microbiology Microbiology 05/02/18 Respiratory Virus Panel (PCR) (MANIDE) - Final, Complete 04/28/18 Respiratory Virus Panel (PCR) (MANDIE) - Final, Complete 04/27/18 Urine Culture - Final, Complete Indy Lewis May 02, 2018 13:38
[2018-05-02 14:00] VITALS: BP 156/86
[2018-05-02] MEDS: VANCOMYCIN HCL 750 MG, VIAL MATE ADAPTER 1 EACH in D5W 250 ML IV SCH (14:58)
[2018-05-02] MEDS: SODIUM CHLORIDE 0.9% INJ 10 ML SYR IV PRN (16:10)
[2018-05-02] MEDS ORDERED: WARFARIN SOD 3 MG TAB PO ONE (17:00)
[2018-05-02 20:00] VITALS: BP 149/84
[2018-05-02] MEDS: zolPIDEM TARTRATE 5 MG TAB PO PRN (20:58)
[2018-05-02] MEDS: LEVEMIR (INSULIN DETEMIR) 1 UNITS/0.01ML SC SCH (20:58)
[2018-05-03] MEDS: ACETAMINOPHEN TAB 650MG DOSE (2X325MG) PO PRN ×4 (00:14→21:58)
[2018-05-03] MEDS: SODIUM CHLORIDE 0.9% INJ 10 ML SYR IV SCH ×2 (05:08→17:38)
[2018-05-03 05:27] LABS: BASO # 0.1 10^3/uL (0.0-0.2); BASO % 0.5 % (0.0-1.0); EOS # 0.1 10^3/uL (0.0-0.50); EOS % 0.9 % (0.0-3.0); HEMATOCRIT 26.9 % (42.0-52.0); HEMOGLOBIN 8.6 g/dl (13.5-17.5); LYMPH # 1.5 10^3/uL (1.5-4.5); LYMPH % 14.6 % (24.0-44.0); MEAN CORPUSCULAR HEMOGLOBIN 30.8 pg (27.0-33.0); MEAN CORPUSCULAR VOLUME 96.4 fl (80.0-96.0); MONO # 0.8 10^3/uL (0.0-0.8); NEUTROPHILS # 7.7 10^3/uL (1.8-7.7); NEUTROPHILS % 75.3 % (36.0-66.0); PLATELET COUNT, AUTOMATED 221 10^3/uL (150-450); RED BLOOD COUNT 2.79 10^6/uL (4.30-6.10); WHITE BLOOD COUNT 10.2 10^3/uL (4.0-10.0)
[2018-05-03 05:38] LABS: INR 1.95; PROTHROMBIN TIME 22.6 SECONDS (12.1-14.4)
[2018-05-03 05:45] VITALS: BP 166/88
[2018-05-03 05:46] LABS: CALCIUM LEVEL 7.5 MG/DL (8.8-10.2); CREATININE FOR GFR 1.44 MG/DL (0.70-1.30); GLOMERULAR FILTRATION RATE 51.2 (>42); POTASSIUM SERUM 3.8 MEQ/L (3.5-5.1)
[2018-05-03] MEDS: IPRATROPIUM 0.5MG/ALBUTEROL 2.5MG INH SOL UD 3ML (DUONEB)(J7620) NEB SCH ×2 (07:36→19:32)
[2018-05-03] MEDS: LORATADINE 10 MG TAB PO SCH (08:45)
[2018-05-03] MEDS: HumaLOG INSULIN (NovoLOG) PER UNIT SC SCH ×4 (08:45→20:10)
[2018-05-03] MEDS: guaiFENesin 200 MG TAB PO SCH ×3 (08:45→21:13)
[2018-05-03] MEDS: CitaloPRAM (CeleXA) 10 MG TABLET PO SCH (08:45)
[2018-05-03] MEDS: FERROUS GLUCONATE 324 MG TAB PO SCH ×2 (08:45→21:15)
[2018-05-03] MEDS: PANTOPRAZOLE 40MG TAB (PROTONIX) PO SCH (08:45)
[2018-05-03] MEDS: FENOFIBRATE 145 MG TAB (TRICOR) PO SCH (08:45)
[2018-05-03] MEDS: FUROSEMIDE 20 MG TAB PO SCH (08:45)
[2018-05-03] MEDS: FLUTICASONE PROP 0.05% NASAL SPRAY 16 GM (FLONASE) NARES SCH (08:46)
[2018-05-03] MEDS: SODIUM CHLORIDE NASAL 0.65% SPRAY BTL (OCEAN) SCH ×3 (08:46→21:16)
[2018-05-03] MEDS: METOPROLOL TART 50 MG TAB PO SCH ×3 (08:46→21:00)
[2018-05-03] MEDS: SENOKOT S TAB PO SCH ×2 (08:46→21:15)
[2018-05-03] MEDS: ASPIRIN 81 MG ENTERIC TAB PO SCH (08:46)
[2018-05-03] MEDS: BACITRACIN OINT 30GM TOP SCH (08:47)
[2018-05-03] MEDS: BOUDREAUX'S BUTT PASTE 4OZ TOP SCH ×3 (08:47→21:00)
[2018-05-03] MEDS: EUCERIN 120GM CREAM TOP SCH ×2 (08:47→21:15)
--- NOTE | 2018-05-03 12:07 | IPNPDOC ---
PM&R Progress Note DATE OF SERVICE: May 02, 2018 [employer] Progress Note Subjective: Patient reports no chest pain or shortness of breath at rest, he continues to eat well and denies any fevers or chills. REVIEW OF SYSTEMS: The following is a completed review of systems and has been reviewed. Review of systems otherwise unremarkable. PAIN: Patient self reports no pain EYES: Negative for recent vision changes or pain EARS, NOSE, & THROAT: blurred vision in right eye (for 2 months-improving), mild dysphagia-rsolved CARDIOVASCULAR: denies chest pain or palpitations, +CABG and AVR PULMONARY: Negative. Denies shortness of breath, +trach stoma GASTROINTESTINAL: Negative for diarrhea/constipation, +PEG, +nausea with meals- improving GENITOURINARY: Negative for dysuria MUSCULOSKELETAL: general weakness NEUROLOGICAL: no seizure or tremor SKIN: multiple healed chest tube incisions, sternotomy scar, trach stoma, PEG site, sacral ulcer PSYCHIATRIC: Unremarkable All other review of systems found to be negative. PHYSICAL EXAMINATION: VITAL SIGNS: Please see below. GENERAL: Pleasant and cooperative. No acute distress. HEENT: PERRL. Extraocular movements intact. Clear conjunctiva, +trach stoma CARDIOVASCULAR: Irregular rate and rhythm. No murmurs, rubs, or gallops, +sternal incision-healed LUNGS: Clear to auscultation bilaterally. No wheezes. +LLL rhonchi ABDOMEN: Soft, nontender, nondistended. Positive bowel sounds., +PEG skin mild exudate no induration NEUROLOGICAL: Alert and oriented times three. Cranial nerves II through XII grossly intact. Sensation grossly intact EXTREMITIES: 5-\5 strength bilateral upper extremities. 5-\5 strength right lower extremity. 5-/5 strength in left lower extremity. intact range of motion in left lower extremity SKIN: bilateral chest tube incisions healing well, +sacral stage 1 ulcer, trach site -diffuse ecchymosis in UE and abdomen +RUE PICC in place ASSESSMENT:73-year-old M with past medical history of DM and aortic stenosis who presents status post CABGx6, aortic valve replacement complicated by long hospital course s/p vent-dependence and PEG for dysphagia admitted for debility secondary to multifocal MRSA pneumonia of recent 6vessel CABG, AVR, and vent- dependent respiratory failure and recently diagnosed CVAs. PLAN: 1. Rehab: PT/OT, PHLEBOTOMY PROGRAM COORDINATOR- no need for sternal precautions at this time as incision >6 weeks old, advanced diet to regular- room privileges -Max HR 120 bpm 1. Neuro: diagnosed with Acute right frontal and acute left parietal infarctions on 04-14-18 sustained at [facility] -Carotid ultrasound revealed bilateral 16-49% internal carotid artery narrowing. -Brain MRA reveals mild atherosclerotic irregularity in the proximal posterior cerebral artery on the left. -continue Coumadin for Afib, ASA, and Fenofribrate (allergy to satins) for secondary stroke prevention 2. CArdio: s/p CABG6 vessel and AVR, TTE positive for diastolic CHF, ROSEANN 04-24-18 negative for vegetations, recently diagnosed post-op Afib continue beta-christian, coumadin and ASA- INR management per medicine 3. Resp: Sepsis secondary to Multifocal PNA with MRSA bacteremia on Vancomycin stop date 05/04/18, ID following, recs appreciated-DUonebs -repeat CXR ordered for leukocytosis, no infiltrate on 04/28/18 negative for active disease -Respiratory panel ordered for leukocytosis, negative 04/28/18 and negative again on 05/01/18 4. Endo: pmh DM with possible gastroparesis, continue insulin therapy, doing well off of Metoclopramide, continue to encouraging smaller meals-patient denies any postprandial nausea 5. : admission UA and Ucx negative, monitor PVRs 6. DVT ppx: on Coumadin, recent Dopplers negative for DVT, TEds 7. Ortho: T12 compression fracture, no surgery recommended 8. GI: protonix for ppx, will defer PEG removal for [facility] surgeon in setting of fluctuating INRs and thrombocytopenia 9. Skin: daily PEG site cleaning with bacitracin, and butt paste to sacrum with turning q2h 10. Heme: recent history of thrombocytopenia, improving, s/p 2 units prbcs on with Hgb around 9, more energetic and feeling well 10. Dispo: 05/06/18, progressing towards goals- Cardiac outpatient rehab consult for building endurance Allergies Coded Allergies: [place] (Verified Allergy, Severe, ANAPHYLAXIS, 11/09/14) Penicillins (Verified Allergy, Severe, ANAPHYLAXIS, 08/04/14) Metformin (Verified Allergy, Unknown, 02/16/18) Statins (Verified Allergy, Unknown, 11/11/18) Duloxetine (Unverified Adverse Reaction, Mild, N/V, 04/16/18) Vital Signs Vital Signs Date Time Temp Pulse Resp B/P (MAP) Pulse Ox O2 Delivery O2 Flow Rate FiO2 05/03/18 08:46 71 166/88 05/03/18 05:45 97.9 16 96 Room Air Laboratory Data CBC/BMP Laboratory Tests 05/03/18 05:06 Red Blood Count 2.79 L, Mean Corpuscular Volume 96.4 H, Mean Corpuscular Hemoglobin 30.8, Mean Corpuscular Hemoglobin Concent 32.0, Red Cell Distribution Width 18.2 H, Neutrophils (%) (Auto) 75.3 H, Lymphocytes (%) (Auto) 14.6 L, Monocytes (%) (Auto) 8.0 H, Eosinophils (%) (Auto) 0.9, Basophils (%) (Auto) 0.5, Neutrophils # (Auto) 7.7, Lymphocytes # (Auto) 1.5, Monocytes # (Auto) 0.8, Eosinophils # (Auto) 0.1, Basophils # (Auto) 0.1, Calcium Level 7.5 L Labs 24H Laboratory Tests 2 05/02/18 16:30: Bedside Glucose (Misc Panel) 183H 05/02/18 17:45: Urine Color YELLOW, Urine Appearance CLEAR, Urine pH 5.0, Urine Specific [place] 1.008, Urine Protein 2+H, Urine Glucose (UA) 1+H, Urine Ketones NEGATIVE, Urine Blood NEGATIVE, Urine Nitrite NEGATIVE, Urine Bilirubin NEGATIVE, Urine Urobilinogen 0.2, Urine Leukocyte Esterase NEGATIVE, Urine WBC (Auto) 2, Urine RBC (Auto) 2, Urine Hyaline Casts (Auto) 0, Urine Bacteria (Auto) NEGATIVE, Urine Squamous Epithelial Cells 0, Urine Sperm (Auto) 05/02/18 20:17: Bedside Glucose (Misc Panel) 213H 05/03/18 05:06: Immature Granulocyte % (Auto) 0.7, White Blood Count 10.2H, Red Blood Count 2.79L, Hemoglobin 8.6L, Hematocrit 26.9L, Mean Corpuscular Volume 96.4H, Mean Corpuscular Hemoglobin 30.8, Mean Corpuscular Hemoglobin Concent 32.0, Red Cell Distribution Width 18.2H, Platelet Count 221, Neutrophils (%) (Auto) 75.3H, Lymphocytes (%) (Auto) 14.6L, Monocytes (%) (Auto) 8.0H, Eosinophils (%) (Auto) 0.9, Basophils (%) (Auto) 0.5, Neutrophils # (Auto) 7.7, Lymphocytes # (Auto) 1.5, Monocytes # (Auto) 0.8, Eosinophils # (Auto) 0.1, Basophils # (Auto) 0.1, Nucleated Red Blood Cells % (auto) 0.0, Prothrombin Time 22.6H, Prothromb Time International Ratio 1.95, Anion Gap 7L, Glomerular Filtration Rate 51.2, Blood Urea Nitrogen 21H, Creatinine 1.44H, Sodium Level 137, Potassium Level 3.8, Chloride Level 103, Carbon Dioxide Level 27, Calcium Level 7.5L 05/03/18 06:44: Bedside Glucose (Misc Panel) 202H 05/03/18 11:36: Bedside Glucose (Misc Panel) 241H Microbiology Microbiology 05/02/18 Respiratory Virus Panel (PCR) (MANDIE) - Final, Complete 04/28/18 Respiratory Virus Panel (PCR) (MANDIE) - Final, Complete 04/27/18 Urine Culture - Final, Complete Current Medications Current Medications Current Medications Acetaminophen (Tylenol Tab) 650 mg Q4HP PRN PO MILD PAIN (PS 1-4) Last administered on 05/03/18at 08:54; Start 04/25/18 at 17:00 Acetylcysteine (Mucomyst 10 % (100mg/ml)) 400 mg RBID INH Last administered on 04/26/18at 08:07; Start 04/25/18 at 20:00; Stop 04/26/18 at 09:24; Status DC Albuterol Sulfate (Proventil Neb) 2.5 mg Q6HP PRN NEB SOB/WHEEZING Last administered on 04/26/18at 08:07; Start 04/25/18 at 20:30 Albuterol Sulfate (Proventil, Ventolin Hfa) 2 puff Q4HP PRN INH SHORTNESS OF BREATH; Start 04/25/18 at 17:00 Albuterol/ Ipratropium (Duoneb (Ipr 0.5mg/Alb 2.5mg)) 3 ml RBID NEB Last administered on 05/01/18at 07:26; Start 04/26/18 at 20:00; Stop 05/01/18 at 12:09; Status DC Albuterol/ Ipratropium (Duoneb (Ipr 0.5mg/Alb 2.5mg)) 3 ml RBID NEB Last administered on 05/03/18at 07:36; Start 04/30/18 at 20:00 Aspirin (Ecotrin) 81 mg DAILY PO Last administered on 05/03/18at 08:46; Start 04/26/18 at 09:00 Bacitracin (Bacitracin Oint) apply around ost... DAILY TOP Last administered on 05/03/18at 08:47; Start 05/02/18 at 09:00 Bisacodyl (Dulcolax Suppository) 10 mg DAILYPRN PRN NV CONSTIPATION; Start 04/25/18 at 17:00 Cetylpyridinium Chloride (Cepacol) 1 chuck Q2HP PRN PO COUGH; Start 04/25/18 at 17:00 Citalopram Hydrobromide (CeleXA) 10 mg DAILY PO Last administered on 05/03/18at 08:45; Start 04/26/18 at 09:00 Dextrose (Dextrose 50%) 25 ml ASDIRECTED PRN IV SEE LABEL COMMENTS; Start 04/25/18 at 17:00 Fenofibrate (Tricor) 145 mg DAILY PO Last administered on 05/03/18at 08:45; Start 04/26/18 at 09:00 Ferrous Gluconate (Fergon) 324 mg BID PO Last administered on 05/03/18at 08:45; Start 04/25/18 at 21:00 Fluticasone Propionate (Flonase 0.05% Nasal [place]) 2 spray DAILY NARES Last administered on 05/03/18at 08:46; Start 04/27/18 at 09:00 Furosemide (Lasix) 20 mg DAILY PO Last administered on 05/03/18at 08:45; Start 04/26/18 at 09:00 Glucagon (Glucagon) 1 mg ASDIRECTED PRN SC SEE LABEL COMMENTS; Start 04/25/18 at 17:00 Glucose (Glucose) 16 GM ASDIRECTED PRN PO SEE LABEL COMMENTS; Start 04/25/18 at 17:00 Guaifenesin (Robitussin Tab) 200 mg Q4HP PRN PO COUGH; Start 04/25/18 at 17:00; Stop 04/30/18 at 17:30; Status DC Guaifenesin (Robitussin Tab) 400 mg TID PO Last administered on 05/03/18at 08:45; Start 04/30/18 at 21:00 Heparin Sodium (Heparin (Flush)) 200 units ASDIRECTED PRN IV SEE LABEL COMMENTS Last administered on 05/02/18at 16:09; Start 04/28/18 at 16:45 Heparin Sodium (Heparin (Flush)) 200 units PICC IV Last administered on 05/03/18at 05:08; Start 04/28/18 at 18:00 Home Med (Med Rec Complete!) ASDIRECTED XX ; Start 04/25/18 at 19:00; Stop 04/25/18 at 19:00; Status DC Insulin Detemir (Levemir Insulin) 5 units QHS SC ; Start 04/25/18 at 21:00; Stop 04/25/18 at 22:17; Status DC Insulin Detemir (Levemir Insulin) 5 units QHS SC Last administered on 05/02/18at 20:58; Start 04/26/18 at 21:00 Insulin Human Lispro (HumaLOG INSULIN) SEE PROTOCOL TABLE AC SC Last administered on 05/03/18at 08:45; Start 04/26/18 at 07:30 Insulin Human Lispro (HumaLOG INSULIN) SEE PROTOCOL TABLE QHS SC Last admi nistered on 04/26/18at 22:27; Start 04/26/18 at 21:00 Insulin Human Lispro (HumaLOG INSULIN) See Protocol Table QHS SC ; Start 04/25/18 at 21:00; Stop 04/25/18 at 22:17; Status DC Loratadine (Claritin) 10 mg DAILY PO Last administered on 05/03/18at 08:45; Start 04/26/18 at 09:00 Metoclopramide HCl (Reglan) 5 mg ACHS PO Last administered on 04/30/18at 12:20; Start 04/25/18 at 21:00; Stop 04/30/18 at 17:09; Status DC Metoprolol Tartrate (Lopressor) 50 mg BID PO Last administered on 04/30/18at 08: 28; Start 04/25/18 at 21:00; Stop 04/30/18 at 11:08; Status DC Metoprolol Tartrate (Lopressor) 50 mg TID PO Last administered on 05/03/18 08:46; Start 04/30/18 at 16:00 Mineral Oil/White Petrolatum (Eucerin) 1 dose BID TOP Last administered on 05/03/18 08:47; Start 05/02/18 at 09:00 Pantoprazole Sodium (Protonix) 40 mg DAILY PO Last administered on 05/03/18 08:45; Start 04/26/18 at 09:00 Senna/Docusate Sodium (Senokot S) 1 tab BID PO Last administered on 05/03/18 08:46; Start 04/25/18 at 21:00 Sodium Chloride (Christian Nasal [place]) 2 spray TID NA Last administered on 05/03/18 08:46; Start 04/26/18 at 16:00 Sodium Chloride (Saline Lock Flush) 10 ml ASDIRECTED PRN IV SEE LABEL COMMENTS Last administered on 05/02/18 16:10; Start 04/28/18 at 16:45 Sodium Chloride (Saline Lock Flush) 10 ml PICC IV Last administered on 05/03/18 05:08; Start 04/28/18 at 18:00 Vancomycin HCl 750 mg/IV Miscellaneous Supplies 1 each/ Dextrose 275 ml @ 275 mls/hr Q24H IV Last administered on 05/02/18 14:58; Start 04/26/18 at 15:00; Stop 05/04/18 at 14:59 Warfarin Sodium (Coumadin) 6 mg DAILY@17 PO ; Start 04/26/18 at 17:00; Stop 04/27/18 at 14:44; Status DC Zinc Oxide (B[place]auxs Butt Paste) sacrum TID TOP Last administered on 05/03/18 08:47; Start 04/25/18 at 22:18 Zolpidem Tartrate (Ambien) 5 mg QHSP PRN PO INSOMNIA Last administered on 05/02/18 20:58; Start 04/30/18 at 17:15 CACHORRO MEDEL MD May 03, 2018 12:07
--- NOTE | 2018-05-03 12:16 | REP ---
Clinical: Acute shortness of breath. Technique: PA and lateral. Comparison: 04/28/2018. Findings: Moderate bilateral pleural effusions and diffuse bilateral alveolar and interstitial infiltrates are increased from prior examination. No pneumothorax. Mediastinum and cardiac silhouette are stable. Evidence of prior sternotomy, CABG, and valve repair again noted. Right PICC line extends into the SVC. Skeletal structures are intact. Impression: Moderate bilateral pleural effusions (right greater than left) and increased diffuse bilateral alveolar and interstitial infiltrates. Electronically Signed by Sebas Sun MD 05/03/2018 12:08 P
[2018-05-03 14:00] VITALS: BP 144/90
[2018-05-03] MEDS ORDERED: FUROSEMIDE 40 MG/4 ML VIAL (J1940) IV ONE (14:45)
[2018-05-03] MEDS: VANCOMYCIN HCL 750 MG, VIAL MATE ADAPTER 1 EACH in D5W 250 ML IV SCH (15:09)
[2018-05-03] MEDS ORDERED: WARFARIN SOD 4 MG TAB PO ONE (17:00)
[2018-05-03 20:00] VITALS: BP 158/82
[2018-05-03] MEDS: LEVEMIR (INSULIN DETEMIR) 1 UNITS/0.01ML SC SCH (21:13)
[2018-05-04 06:00] VITALS: BP 158/92
[2018-05-04] MEDS: SODIUM CHLORIDE 0.9% INJ 10 ML SYR IV SCH ×2 (06:07→17:39)
[2018-05-04 06:51] LABS: INR 2.6; PROTHROMBIN TIME 28.4 SECONDS (12.1-14.4)
[2018-05-04] MEDS: IPRATROPIUM 0.5MG/ALBUTEROL 2.5MG INH SOL UD 3ML (DUONEB)(J7620) NEB SCH ×2 (07:59→20:43)
[2018-05-04] MEDS: LORATADINE 10 MG TAB PO SCH (08:27)
[2018-05-04] MEDS: PANTOPRAZOLE 40MG TAB (PROTONIX) PO SCH (08:27)
[2018-05-04] MEDS: FENOFIBRATE 145 MG TAB (TRICOR) PO SCH (08:27)
[2018-05-04] MEDS: METOPROLOL TART 50 MG TAB PO SCH ×3 (08:27→20:34)
[2018-05-04] MEDS: guaiFENesin 200 MG TAB PO SCH ×3 (08:27→20:33)
[2018-05-04] MEDS: HumaLOG INSULIN (NovoLOG) PER UNIT SC SCH ×4 (08:27→20:35)
[2018-05-04] MEDS: SENOKOT S TAB PO SCH ×2 (08:28→20:33)
[2018-05-04] MEDS: FERROUS GLUCONATE 324 MG TAB PO SCH ×2 (08:28→20:33)
[2018-05-04] MEDS: ASPIRIN 81 MG ENTERIC TAB PO SCH (08:28)
[2018-05-04] MEDS: FUROSEMIDE 20 MG TAB PO SCH (08:28)
[2018-05-04] MEDS: CitaloPRAM (CeleXA) 10 MG TABLET PO SCH (08:28)
[2018-05-04] MEDS: ACETAMINOPHEN TAB 650MG DOSE (2X325MG) PO PRN ×3 (08:29→20:34)
[2018-05-04] MEDS: EUCERIN 120GM CREAM TOP SCH ×2 (08:29→20:36)
[2018-05-04] MEDS: BOUDREAUX'S BUTT PASTE 4OZ TOP SCH ×3 (08:29→20:36)
[2018-05-04] MEDS: BACITRACIN OINT 30GM TOP SCH (08:29)
[2018-05-04] MEDS: SODIUM CHLORIDE NASAL 0.65% SPRAY BTL (OCEAN) SCH ×3 (08:30→20:36)
[2018-05-04] MEDS: FLUTICASONE PROP 0.05% NASAL SPRAY 16 GM (FLONASE) NARES SCH (08:30)
[2018-05-04 13:43] VITALS: BP 150/78
[2018-05-04 20:00] VITALS: BP 150/86
[2018-05-04] MEDS: LEVEMIR (INSULIN DETEMIR) 1 UNITS/0.01ML SC SCH (20:35)
[2018-05-05] MEDS: SODIUM CHLORIDE 0.9% INJ 10 ML SYR IV SCH (05:10)
[2018-05-05] MEDS: SODIUM CHLORIDE 0.9% INJ 10 ML SYR IV PRN (05:11)
[2018-05-05 05:39] LABS: INR 2.55
[2018-05-05 06:00] VITALS: BP 156/58
[2018-05-05] MEDS: IPRATROPIUM 0.5MG/ALBUTEROL 2.5MG INH SOL UD 3ML (DUONEB)(J7620) NEB SCH (08:00)
[2018-05-05] MEDS: guaiFENesin 200 MG TAB PO SCH (08:05)
[2018-05-05] MEDS: EUCERIN 120GM CREAM TOP SCH (08:05)
[2018-05-05] MEDS: BACITRACIN OINT 30GM TOP SCH (08:05)
[2018-05-05] MEDS: SENOKOT S TAB PO SCH (08:06)
[2018-05-05] MEDS: ASPIRIN 81 MG ENTERIC TAB PO SCH (08:06)
[2018-05-05] MEDS: HumaLOG INSULIN (NovoLOG) PER UNIT SC SCH ×2 (08:06→12:27)
[2018-05-05] MEDS: CitaloPRAM (CeleXA) 10 MG TABLET PO SCH (08:06)
[2018-05-05] MEDS: LORATADINE 10 MG TAB PO SCH (08:06)
[2018-05-05] MEDS: FERROUS GLUCONATE 324 MG TAB PO SCH (08:06)
[2018-05-05] MEDS: PANTOPRAZOLE 40MG TAB (PROTONIX) PO SCH (08:06)
[2018-05-05] MEDS: FUROSEMIDE 20 MG TAB PO SCH (08:06)
[2018-05-05] MEDS: FENOFIBRATE 145 MG TAB (TRICOR) PO SCH (08:06)
[2018-05-05 08:07] VITALS: BP 156/58
[2018-05-05] MEDS: FLUTICASONE PROP 0.05% NASAL SPRAY 16 GM (FLONASE) NARES SCH (08:07)
[2018-05-05] MEDS: METOPROLOL TART 50 MG TAB PO SCH (08:07)
[2018-05-05] MEDS: SODIUM CHLORIDE NASAL 0.65% SPRAY BTL (OCEAN) SCH (08:07)
[2018-05-05] MEDS: BOUDREAUX'S BUTT PASTE 4OZ TOP SCH (08:08)
[2018-05-05] MEDS ORDERED: CLAR1TAB2 PO (11:17)
[2018-05-05] MEDS ORDERED: FERR32TA PO (11:17)
[2018-05-05] MEDS ORDERED: ASPI81TAEC PO (11:17)
[2018-05-05] MEDS ORDERED: VENTAER INH (11:17)
[2018-05-05] MEDS ORDERED: COUM1TAB19 PO (11:17)
[2018-05-05] MEDS ORDERED: WARF-20 PO (11:17)
[2018-05-05] MEDS ORDERED: LOPR1TAB6 PO (11:17)
[2018-05-05] MEDS ORDERED: FURO20TA2 PO (11:17)
[2018-05-05] MEDS ORDERED: INSUDET SC (11:17)
[2018-05-05] MEDS ORDERED: FLUTISP NARES (11:17)
[2018-05-05] MEDS ORDERED: FENO145T13 PO (11:17)
[2018-05-05] MEDS ORDERED: CELE10TA PO (11:17)
[2018-05-05] MEDS ORDERED: INSUHUMDS SC (11:17)
[2018-05-05] MEDS ORDERED: PANT40TA3 PO (11:17)
--- NOTE | 2018-05-20 16:16 | PMRDS ---
DATE OF ADMISSION: 04/25/2018 DATE OF DISCHARGE: 05/05/2018 CHIEF COMPLAINT/DISCHARGE DIAGNOSIS: Multifocal methicillin-resistant Staphylococcus aureus (MRSA) pneumonia in the setting of debility secondary to coronary artery bypass graft (CABG), aortic valve replacement (AVR), and recently diagnosed cerebrovascular accident (CVA). HISTORY OF PRESENT ILLNESS: This is a 73-year-old male with a past medical history of aortic stenosis, coronary artery disease (CAD), diabetes type 2, chronic kidney disease (CKD) who presented initially to [facility] Emergency Department (ED) with a syncopal episode and went into cardiac arrest twice. He was resuscitated and transferred to [facility] on vasopressors. He was admitted to the intensive care unit (ICU) where a chest tube was placed for a right-sided pleural effusion. Cardiology was consulted for severe aortic stenosis and an ejection fraction (EF) of 40% noted on his transesophageal echocardiogram (ROSEANN). He underwent a six vessel coronary artery bypass graft (CABG) on 02/21/2018 in addition to an aortic valve replacement performed by Dr. Mccloud. He continued to require ventilatory and vasopressor/ionotropic support and an intraaortic balloon pump was placed on 02/24/2018. There was concern for a possible pneumonia for which he was placed on empiric antibiotics. He was seen by renal for worsening creatinine and had PermaCath placement for dialysis in addition to being diuresed. He had episodes of junctional rhythm with bradycardia and was unable to tolerate beta blockers for many days. However, this did resolve. He had a percutaneous endoscopic gastrostomy (PEG) tube placed on 03/14/2018 and was weaned off of the ventilator and eventual decannulation on 04/04/2018. He developed postoperative atrial fibrillation and was started on Coumadin. Additionally, he had thrombocytopenia and was treated with argatroban. On postoperative day 43, he was transferred out of the ICU. Chest tube was removed on 04/10/2018. He was evaluated by therapy and found to have significant deconditioning and deemed medically appropriate to discharge to acute rehabilitation unit (ARU) on 04/11/2017. During his initial rehabilitation stay, his requested an MRI of his brain because she was concerned he might have had a stroke at [facility] where imaging of the brain was not performed. MRI on 04/14/2018 was ordered revealing "small acute right frontal and left parietal lobe infarcts, small subacute right parietal lobe infarcts, small vessel ischemic disease, mild volume loss." The patient had no focal deficits or sensory impairments at the time. His dysphagia was presumed to be from long term ventilation and likely critical illness myopathy but had improved immediately on admission to ARU once by mouth trials were started. He was started on fenofibrate, continued on aspirin and Coumadin for his recently diagnosed atrial fibrillation for stroke prevention. He performed well in therapy. However, his thrombocytopenia worsened. Initially, infectious workup was negative but he had episodes of vomiting and chills and urgently transferred back to the ICU on 04/18/2018 for chest pain for [id number] myocardial infarction (NSTEMI) workup, where ultimately he was found not to have elevated cardiac enzymes. However, blood cultures on 04/19/2018 grew methicillin-resistant Staphylococcus aureus (MRSA) and CT chest revealed multifocal pneumonia, "dense left lower lobe infiltrates with lesser patchy infiltrates in the right upper and lower lobes, small bilateral pleural effusions, 5 mm left lower lobe nodule stable with a newly apparent 5 mm right middle lobe nodule, mild new subcarinal lymphadenopathy could be reactive, median sternotomy and aortic valve replacement, multiple new but chronic-appearing bilateral rib fractures, mild anterior compression of the T12 vertebral body appears recent." He was started on IV vancomycin. He had a supratherapeutic international normalized ratio (INR) and was given vitamin K. He had worsening thrombocytopenia for which hematology recommended discontinuing any heparin flushes and his thrombocytopenia gradually improved. Infectious disease recommended a ROSEANN to rule out vegetations which on 04/24/2018 was negative for vegetations. His leukocytosis improved. He was reevaluated by therapy and deemed medically appropriate for discharge back to ARU on 04/25/2018. PAST MEDICAL HISTORY: 1. Aortic stenosis. 2. Coronary artery disease (CAD). 3. Diabetes. 4. Chronic kidney disease (CKD). 5. Hypertension. 6. Recent respiratory failure. 7. Multifocal pneumonia. 8. Cerebrovascular accident (CVA). HOSPITAL COURSE: The patient received 24-hour nursing supervision and weekly team meetings were held to discuss his progress. His diet was advanced to regular. For his recent diagnosis of acute right frontal and acute left parietal infarct, he was maintained on aspirin and fenofibrate due to an elevated statin with good blood pressure control. For his atrial fibrillation and diastolic congestive heart failure (CHF), he was continued on beta blockers, Coumadin and aspirin. He finished up a course of IV vancomycin for his methicillin-resistant Staphylococcus aureus (MRSA) bacteremia and repeat chest x-ray on 04/28/2018 was negative for active disease. Respiratory panel was ordered twice for persistent leukocytosis and was negative on 04/28/2018 and 05/01/2018. The patient initially was taking Reglan prior to meals for postprandial nausea. However, he was weaned off of this and was able to tolerate oral intake. His admission urinalysis (UA) and urine culture was negative. His percutaneous endoscopic gastrostomy (PEG) site was cleaned daily and bacitracin was applied. His thrombocytopenia resolved and he received two units of packed red blood cells (PRBCs) on 04/28/2018. After which, he felt more energetic. The patient was consulted by cardiac outpatient rehabilitation and overall did very well and was deemed medically and functionally appropriate to return to home. DISCHARGE MEDICATIONS: Albuterol, aspirin, Celexa, fenofibrate, iron, Flonase, Lasix, Levemir, loratadine, metoprolol, Protonix, warfarin. FUNCTIONAL HISTORY: Upon discharge, the patient was modified independent with all functional transfers, bed mobility, able to ambulate 100 feet with a rolling walker. He was provided with room privileges and made significant gains on his endurance during his hospital course.
== END 2018-05-05 14:30 | disposition home health service (06) | DRG 91 ==
LOC: M PM&R 18:15
PROVIDERS: ADMIT Physical Medicine & Rehabilitation; ATTEND Physical Medicine & Rehabilitation
PROC: 30233N1 Transfusion of Nonautologous Red Blood Cells into Peripheral Vein, Percutaneous Approach (ICD-10-PCS; principal; 2018-04-28)
PROC: 02HV33Z Insertion of Infusion Device into Superior Vena Cava, Percutaneous Approach (ICD-10-PCS; 2018-04-28)
DX: G72.81 Critical illness myopathy (principal); A41.02 Sepsis due to Methicillin resistant Staphylococcus aureus; I50.30 Unspecified diastolic (congestive) heart failure; R53.81 Other malaise; I25.10 Atherosclerotic heart disease of native coronary artery without angina pectoris; E11.22 Type 2 diabetes mellitus with diabetic chronic kidney disease; N18.3 Chronic kidney disease, stage 3 (moderate); Z86.74 Personal history of sudden cardiac arrest; E11.43 Type 2 diabetes mellitus with diabetic autonomic (poly)neuropathy; K31.84 Gastroparesis; D64.9 Anemia, unspecified; K59.00 Constipation, unspecified; Z79.82 Long term (current) use of aspirin; Z79.4 Long term (current) use of insulin; Z79.01 Long term (current) use of 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s; Z79.899 Other long term (current) drug therapy; Z88.0 Allergy status to penicillin; Z88.8 Allergy status to other drugs, medicaments and biological substances; Z91.018 Allergy to other foods; I48.91 Unspecified atrial fibrillation; Z95.1 Presence of aortocoronary bypass graft; Z95.2 Presence of prosthetic heart valve; I35.0 Nonrheumatic aortic (valve) stenosis; R13.10 Dysphagia, unspecified; D69.6 Thrombocytopenia, unspecified; K21.9 Gastro-esophageal reflux disease without esophagitis; F32.9 Major depressive disorder, single episode, unspecified

== ENCOUNTER → 2018-05-12 | Outpatient (REF) | payer MEDICARE ==
[~2018-05-12] MED LIST changes: +ASPI81TAEC PO; +FERR32TA PO; +FLUTISP NARES; +VENTAER INH; +WARF-20 PO
[2018-05-12 11:55] LABS: INR 1.24; PROTHROMBIN TIME 15.8 SECONDS (12.1-14.4)
== END ==
LOC: M SFHCCLAY 08:33
PROVIDERS: ATTEND Family Medicine
DX: I35.0 Nonrheumatic aortic (valve) stenosis (principal)

== ENCOUNTER → 2018-05-14 | Outpatient (REF) | payer MEDICARE ==
[2018-05-14 11:48] LABS: INR 1.27; PROTHROMBIN TIME 16.1 SECONDS (12.1-14.4)
== END ==
LOC: M SFHCCLAY 09:13
PROVIDERS: ATTEND Family Medicine
DX: I35.0 Nonrheumatic aortic (valve) stenosis (principal); Z79.01 Long term (current) use of 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s

== ENCOUNTER → 2018-05-23 | Outpatient (CLI) | payer MEDICARE ==
[~2018-05-23] MED LIST changes: +ACET1TAB55 PO; +AMLO5TAB6 PO; +DOXY-350 PO; +FURO20TA2; +GLIP10TA6; +LEVA750T7 PO; +LORA10TA3 PO; +METO50TA7 PO; +MIRA33504 PO; +OMEP20CA3 PO; +POTA99TA PO; +TYLE500T78 PO; +VITA-122 PO
--- NOTE | 2018-05-23 14:45 | REP ---
PA and lateral chest: Comparison is 05/03/2018. The previous bilateral pleural effusions have decreased. The previous bilateral interstitial and alveolar infiltrates have decreased, however, there is a persisting density inferiorly on the right. Cardiomegaly and sternotomy wires are unchanged. Electronically Signed by Loki Rivera MD 05/23/2018 02:36 P
== END ==
LOC: M CLY 13:56
PROVIDERS: ATTEND Family Medicine
DX: R91.8 Other nonspecific abnormal finding of lung field (principal); I51.7 Cardiomegaly; R06.02 Shortness of breath; Z95.818 Presence of other cardiac implants and grafts
CPT/HCPCS: 71046; G0463

== ENCOUNTER → 2018-05-29 | Outpatient (REF) | payer MEDICARE ==
[~2018-05-29] MED LIST changes: -DOXY-350 PO; -FURO20TA2; -GLIP10TA6; -LEVA750T7 PO; -MIRA33504 PO; -OMEP20CA3 PO; -TYLE500T78 PO
[2018-05-29 18:34] LABS: ALBUMIN 2.6 GM/DL (3.2-5.2); BILIRUBIN,TOTAL 0.6 MG/DL (0.2-1.0); CALCIUM LEVEL 8.4 MG/DL (8.8-10.2); CREATININE FOR GFR 1.56 MG/DL (0.70-1.30); GLOMERULAR FILTRATION RATE 46.7 (>42); MAGNESIUM LEVEL 2.3 MG/DL (1.8-2.4); POTASSIUM SERUM 4.5 MEQ/L (3.5-5.1); TOTAL PROTEIN 7.9 GM/DL (6.4-8.2)
[2018-05-29 18:37] LABS: BASO # 0.1 10^3/uL (0.0-0.2); BASO % 0.7 % (0.0-1.0); EOS # 0.2 10^3/uL (0.0-0.50); EOS % 2.2 % (0.0-3.0); HEMATOCRIT 24.4 % (42.0-52.0); HEMOGLOBIN 7.9 g/dl (13.5-17.5); LYMPH # 1.2 10^3/uL (1.5-4.5); MEAN CORPUSCULAR HEMOGLOBIN 32.2 pg (27.0-33.0); MEAN CORPUSCULAR HGB CONC 32.4 g/dl (32.0-36.5); MEAN CORPUSCULAR VOLUME 99.6 fl (80.0-96.0); MONO # 0.6 10^3/uL (0.0-0.8); MONO % 8.3 % (0.0-5.0); NEUTROPHILS # 5.2 10^3/uL (1.8-7.7); NEUTROPHILS % 71.2 % (36.0-66.0); PLATELET COUNT, AUTOMATED 158 10^3/uL (150-450); RED BLOOD COUNT 2.45 10^6/uL (4.30-6.10); WHITE BLOOD COUNT 7.3 10^3/uL (4.0-10.0)
[2018-05-29 19:01] LABS: HEMOGLOBIN A1c 6.1 %
== END ==
LOC: M LAB REF 16:42
PROVIDERS: ATTEND Family Medicine
DX: E11.22 Type 2 diabetes mellitus with diabetic chronic kidney disease (principal); N18.3 Chronic kidney disease, stage 3 (moderate)

== ENCOUNTER 2018-05-30 08:08 | Inpatient (IN) | payer MEDICARE ==
[~2018-05-30] VITALS: Ht 177.8 cm; Wt 74.4 kg
[~2018-05-30 08:08] MED LIST changes: -ACET1TAB55 PO; -AMLO5TAB6 PO; -LORA10TA3 PO; -METO50TA7 PO; -POTA99TA PO; -VITA-122 PO
[2018-05-30 08:52] LABS: BASO # 0.1 10^3/uL (0.0-0.2); BASO % 0.7 % (0.0-1.0); EOS # 0.2 10^3/uL (0.0-0.50); EOS % 2.2 % (0.0-3.0); HEMATOCRIT 26.8 % (42.0-52.0); HEMOGLOBIN 8.8 g/dl (13.5-17.5); LYMPH # 1.4 10^3/uL (1.5-4.5); LYMPH % 15.7 % (24.0-44.0); MEAN CORPUSCULAR HEMOGLOBIN 32.5 pg (27.0-33.0); MEAN CORPUSCULAR HGB CONC 32.8 g/dl (32.0-36.5); MEAN CORPUSCULAR VOLUME 98.9 fl (80.0-96.0); MONO # 0.9 10^3/uL (0.0-0.8); NEUTROPHILS # 6.2 10^3/uL (1.8-7.7); NEUTROPHILS % 71.1 % (36.0-66.0); PLATELET COUNT, AUTOMATED 142 10^3/uL (150-450); RED BLOOD COUNT 2.71 10^6/uL (4.30-6.10); WHITE BLOOD COUNT 8.7 10^3/uL (4.0-10.0)
[2018-05-30 09:20] LABS: INR 2.06; PROTHROMBIN TIME 23.6 SECONDS (12.1-14.4)
[2018-05-30 09:24] LABS: ALBUMIN 2.4 GM/DL (3.2-5.2); BILIRUBIN,DIRECT 0.1 MG/DL (0.0-0.2); BILIRUBIN,TOTAL 0.7 MG/DL (0.2-1.0); CALCIUM LEVEL 8.2 MG/DL (8.8-10.2); CREATININE FOR GFR 1.65 MG/DL (0.70-1.30); GLOMERULAR FILTRATION RATE 43.8 (>42); MB/CK RELATIVE INDEX 2.48 (< OR =4); POTASSIUM SERUM 5.5 MEQ/L (3.5-5.1); THYROID STIMULATING HORMONE 5.02 uIU/ML (0.358-3.740); TOTAL PROTEIN 7.8 GM/DL (6.4-8.2); TROPONIN I 0.03 NG/ML (< 0.10)
--- NOTE | 2018-05-30 09:32 | REP ---
Chest two views HISTORY: Short as of breath Comparison: None Parenchymal densities densities are present in the lungs consistent with infiltrates that are unchanged compared to the previous study. . There is blunting of the costophrenic angles due to small pleural effusions unchanged on the left and slightly increased on the right. The pulmonary vasculature is normal in appearance. The bony structure is intact. IMPRESSION: 1. Bilateral infiltrates unchanged compared to the previous study. 2. Bilateral pleural effusions slightly increased on the right and unchanged on the left. Electronically Signed by Jl Wren MD 05/30/2018 09:23 A
[2018-05-30] MEDS ORDERED: GLUCOSE 4 GM CHEW TABLET PO PRN (09:45)
[2018-05-30] MEDS ORDERED: FUROSEMIDE 40 MG/4 ML VIAL (J1940) IV ONE (09:45)
[2018-05-30] MEDS ORDERED: DEXTROSE 50% 50 ML SYRINGE IV PRN (09:45)
[2018-05-30] MEDS ORDERED: GLUCAGON FOR INJ 1 MG VIAL (J1610) SC PRN (09:45)
[2018-05-30] MEDS ORDERED: IPRATROPIUM 0.5MG/ALBUTEROL 2.5MG INH SOL UD 3ML (DUONEB)(J7620) NEB ONE (10:15)
[2018-05-30] MEDS ORDERED: IPRATROPIUM 0.5MG/ALBUTEROL 2.5MG INH SOL UD 3ML (DUONEB)(J7620) NEB PRN (10:15)
[2018-05-30] MEDS ORDERED: CALCIUM GLUCONATE 1,000 MG in D5W MINI-BAG PLUS 100 ML IV ONE (10:15)
[2018-05-30] MEDS ORDERED: POTA99TA PO (10:16)
[2018-05-30] MEDS ORDERED: FURO20TA2 PO (10:16)
[2018-05-30] MEDS ORDERED: ASPI81TAEC PO (10:16)
[2018-05-30] MEDS ORDERED: FERR32TA PO (10:16)
[2018-05-30] MEDS ORDERED: WARF-20 PO (10:16)
[2018-05-30] MEDS ORDERED: VITA-122 PO (10:16)
[2018-05-30] MEDS ORDERED: METO50TA7 PO (10:16)
[2018-05-30] MEDS ORDERED: CITA20TA4 PO (10:16)
[2018-05-30] MEDS ORDERED: MIRA3350 PO (10:16)
[2018-05-30] MEDS ORDERED: GLIP10TA6 PO (10:16)
[2018-05-30] MEDS ORDERED: ACET1TAB55 PO (10:16)
[2018-05-30] MEDS ORDERED: LORA10TA3 PO (10:17)
[2018-05-30 10:30] LABS: INFLUENZA A AMPLIFICATION NEGATIVE (NEGATIVE); INFLUENZA B AMPLIFICATION NEGATIVE (NEGATIVE)
--- NOTE | 2018-05-30 10:58 | REP ---
CT of the chest without IV contrast: Comparisons are 04/20/2018 and 02/17/2018. The left lower lobe, right upper lobe and right lower lobe infiltrates identified on 04/20/2018 have decreased in size. The left pleural effusion identified on 04/20 2018 is unchanged. The right pleural effusion identified on 04/20/2018 is slightly larger. There are two small ground-glass densities laterally in the right middle lobe, one measuring 8 mm measuring 7 ml. These are nonspecific and could be a small infiltrates or nodules. Follow-up is recommended. The subcarinal adenopathy identified and 04/20/2018 is unchanged. Impression: The multifocal infiltrates have decreased in size. The left pleural effusion is unchanged. The right pleural effusion is slightly larger. The sub carinal adenopathy is unchanged. Two small ground-glass densities in the right middle lobe, infiltrates versus nodules. Electronically Signed by Loki Rivera MD 05/30/2018 10:47 A
[2018-05-30 11:16] LABS: PERCENT SATURATION 21.9 % (19.7-50.0)
[2018-05-30] MEDS ORDERED: HumaLOG INSULIN (NovoLOG) PER UNIT SC SCH (12:00)
[2018-05-30] MEDS: IPRATROPIUM 0.5MG/ALBUTEROL 2.5MG INH SOL UD 3ML (DUONEB)(J7620) NEB SCH ×3 (12:00→20:00)
[2018-05-30 12:37] LABS: MB/CK RELATIVE INDEX 5.97 (< OR =4); POTASSIUM SERUM 3.8 MEQ/L (3.5-5.1); TROPONIN I 0.03 NG/ML (< 0.10)
--- NOTE | 2018-05-30 12:51 | HPEPDOC ---
[facility] Medical History & Physical Date of Admission May 30, 2018 Primary Care Physician: Magdaleno Reno History and Physical CHIEF COMPLAINT:SOB x 2 weeks worsened in the past 2 days, weight gain from 165 lbs to 176 lbs, and increased LE edema x 1 wk HISTORY OF PRESENT ILLNESS: 73M male with past medical history significant for Multifocal MRSA pneumonia in setting of debility secondary to CABG 02/2018 [facility], AVR, and vent-dependent respiratory failure and recently diagnosed CVA in April 2018 at [facility], Aortic stenosis s/p porcine valve replacement, Atrial Fibrillation on coumadin, CAD, DM2, CKD3 who presented initially to [facility] ED in 02/2018 with a syncopal episode and went into cardiac arrest twice, was resuscitated and transferred to [facility] on vasopressors. He was admitted to the ICU where a chest tube was placed for a right sided pleural effusion. Cardiology was consulted for severe aortic stenosis and EF of 40% noted on his ROSEANN. He underwent a 6 vessel CABG on 02-21-18 in addition to an aortic valve replacement performed by Dr. Mccloud. He continued to require ventilatory and vasopressors/inotrope support and an intra-aortic balloon pump was placed on 02-24-18. There was concern for a possible pneumonia for which he was placed on empiric antibiotics. He was seen by renal for worsening creatinine and a had PermCath placement for dialysis in addition to being diuresed. He had episodes of junctional rhythm with bradycardia and was unable to tolerate beta-blockers for many days, however this did resolve. He had a PEG tube placed on 03-14-18 and he was weaned off of the vent with eventual decannulation on 04-04-18. He developed post-op Afib and was started on COumadin. Additionally he had thrombocytopenaia and was treated with argatroban. On POD43 he was transferred out of the ICU, chest tubes removed on 04-10-18, was evaluated by therapy and found to have significant deconditioning and deemed [facility]. During his initial rehab stay his requested an MRI of his brain because she was concerned he might have had a stroke at [facility] where imaging of the brain was not performed, and so MRI on 04-14-18 was ordered revealing, "small acute right frontal and left parietal lobe infarctions. Small subacute right parietal lobe infarction. Small vessel ischemic disease. Mild volume loss." Patient had no focal deficits or sensory impairments at the time, his dysphagia was presumed to be from nursing home ventilation and likely critical illness myopathy, but had improved immediately on admission to ARU once po trials were started. He was started on Fenofibrate, continued on ASA and Coumadin for his recently diagnosed Afib for stroke prevention. He performed well in therapy, however his thrombocytopenia worsened, initially infectious work-up was negative, but he had episodes of vomiting with chills, then urgently transferred out to the ICU on 04-18-18 for chest pain for NSTEMI work-up where ultimately he was not found to have elevated cardiac enzymes. However, blood cultures on 04-19-[address] chest revealed multifocal pneumonia, "Dense left lower lobe infiltrate with lesser patchy infiltrates in the right upper and lower lobes. Small bilateral pleural effusions. 5 mm left lower lobe nodule (stable) with a newly apparent 5 mm right middle lobe nodule. Mild new subcarinal lymphadenopathy, could be reactive. Interval median sternotomy and aortic valve replacement. Multiple new, but chronic appearing bilateral rib fractures. Mild anterior compression of the T12 vertebral body, appears recent" and he was started on IV Vancomycin. He had a supratherapeutic INR, was given vitamin K, had worsening thrombocytopenia for which Hematology recommended discontinuing any heparin flushes and his thrombocytopenia gradually improved. Infectious disease recommended a ROSEANN to rule out vegetations which on 04-24-18 was negative for vegetations. His leuokocytosis improved, he was re-evaluated by therapy and deemed medically appropriate for discharge to ARU on 04-25-18. Since he has been home, has noted increasing weight, shortness of breath at rest and with exertion, and persistent hoarse voice since ROSEANN done by Dr. peng to rule out endocarditis. For the past 2 days, sob has worsened despite increased doses of lasix managed as outpt by [facility] from 20mg daily to 40 mg daily. Pt denied any chest pain, pressure, tightness, dizziness, or lightheadedness, and has been compliant both with his decreased salt intake as well as fluid restriction of about 4 cups of liquids daily per the . SOB prompted the to bring the patient in for further evaluation with findings of bilateral pleural effusions on cxr at [facility] er on 05/30/18. Hospitalist was called for admission for CHF. EKG showed no acute ischemia. Of note, pt was adamant about discontinuing his insulin, and had several episodes of hypoglycemia on oral glipizide given by his PCP. EMS had been called to the house on Saturday with glucose of 47 , improved on D50 iv and after eating a peanut butter sandwich and drinking green tea. PAST MEDICAL HISTORY: Aortic stenosis, CAD, DM2, CKD, HTN, recent respiratory failure, HTN, multifocal PNA with MRSA, CVAs PAST SURGICAL HISTORY: CABGx6 vessels, and AVR , left LE vein harvesting ALLERGIES: Please see below. MEDICATIONS: Please see below. 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 Review of systems otherwise unremarkable. PAIN: Patient self reports no pain EYES: Negative for recent vision changes or pain EARS, NOSE, & THROAT: blurred vision in right eye (for 2 months), mild dysphagia, +sore throat, hoarse voice since ROSEANN one month ago CARDIOVASCULAR: denies chest pain or palpitations, +CABG and AVR PULMONARY: shortness of breath at rest and with exertion, +trach stoma GASTROINTESTINAL: Negative for diarrhea/constipation, s/p +PEG, +nausea with me als GENITOURINARY: Negative for dysuria MUSCULOSKELETAL: general weakness NEUROLOGICAL: no seizure or tremor SKIN: multiple healed chest tube incisions, sternotomy scar, trach stoma, PEG site, sacral ulcer PSYCHIATRIC: Unremarkable All other review of systems found to be negative. PHYSICAL EXAMINATION: VITAL SIGNS: Please see below. GENERAL: Pleasant and cooperative. No acute distress. HEENT: PERRL. JVD positive Extraocular movements intact. Clear conjunctiva, +trach scar, no stridor, mouth breathing. hoarse voice and whispers CARDIOVASCULAR: Irregular rate and rhythm. No murmurs, rubs, or gallops, +sternal incision-healed LUNGS: diminished breath sounds, rales ABDOMEN: Soft, nontender, nondistended. Positive bowel sounds., NEUROLOGICAL: Alert and oriented times three. Cranial nerves II through XII grossly intact. Sensation grossly intact EXTREMITIES: (+) pitting edema. 5-\\5 strength bilateral upper extremities. 5-\\5 strength right lower extremity. 5-/5 strength in left lower extremity. intact range of motion in left lower extremity SKIN: bilateral chest tube incisions healing well, trach site with bilat UE petechia LABORATORY DATA: PLS SEE BELOW IMAGING: Chest two views HISTORY: Short as of breath Comparison: None Parenchymal densities densities are present in the lungs consistent with infiltrates that are unchanged compared to the previous study. . There is blunting of the costophrenic angles due to small pleural effusions unchanged on the left and slightly increased on the right. The pulmonary vasculature is normal in appearance. The bony structure is intact. IMPRESSION: 1. Bilateral infiltrates unchanged compared to the previous study. 2. Bilateral pleural effusions slightly increased on the right and unchanged on the left. Electronically Signed by Jl Wren MD 05/30/2018 09:23 A DATE OF PROCEDURE: 04/18/2018 REFERRING PHYSICIAN: Dr. Hill INDICATION: CVA. HEIGHT: 178 cm WEIGHT: 75 kg DIMENSIONS: IVS: 1.3 LV: 4.1 LVPW: 1.3 LA: 4.3. Left atrial volume index: 34 mL per meter square. IVC: 1.9 Mitral E wave velocity: 109 A-wave: 90 E prime septal: 3.5 E prime lateral: 6.4 FINDINGS: The study is of acceptable technical quality. Left ventricle is of normal size. Mild left ventricular hypertrophy is noted. There is septal wall motion abnormality consistent with recent open heart surgery. Other than that, I cannot appreciate any distinct wall motion abnormalities based on somewhat limited views. Overall left ventricular ejection fraction (LVEF) approximately 55-60%. The right ventricle also appears grossly normal size and contractility. Left atrium is moderately enlarged, right atrium was poorly visualized but grossly appears normal. No pericardial effusion is noted. There is a bioprosthesis in aortic position; it appears structurally intact. Mitral valve exhibits prominent degenerative abnormalities with heavy mitral annular calcifications but mobility of leaflets is preserved. Tricuspid valve appears normal. Pulmonic valve was not seen. No pericardial effusion is noted. Inferior vena cava is normal size. Aortic root is normal. Aortic arch and abdominal aorta were not visualized. Doppler interrogation of aortic bioprosthesis reveals no insufficiency and normal gradient, mean gradient was 7 mmHg. There is mild mitral insufficiency and mild tricuspid insufficiency. Calculated pulmonary artery pressure is in high 40s, low 50s corresponding to moderate pulmonary hypertension. Mitral inflow pattern and tissue Doppler imaging of mitral annulus revealed grade 2 diastolic dysfunction. CONCLUSIONS: 1. Study is of acceptable technical quality. 2. Normal left ventricular (LV) size with mild left ventricular hypertrophy, overall preserved left ventricle systolic function and grade 2 diastolic dysfunction. 3. Normally functioning bioprosthesis in aortic position. 4. Mild mitral and tricuspid insufficiency. 5. Normal central venous pressure. 6. Suggestive of moderate pulmonary hypertension. COMMENT: Subacute bacterial endocarditis (SBE) prophylaxis is recommended. DD: Juhi Peng MD 04/18/181900 DT: MITCH 04/18/181924 DS: ANGELA 04/20/181932 <Electronically signed by Juhi Peng MD> 04/20/181932 ASSESSMENT AND PLAN: 73M male with past medical history significant for Multifocal MRSA pneumonia in setting of debility secondary to CABG 02/2018 [facility], AVR, and vent-dependent respiratory failure and recently diagnosed CVA in April 2018 at [facility], Aortic stenosis s/p porcine valve replacement, Atrial Fibrillation on coumadin, CAD, DM2, CKD3 who presented initially to [facility] ED in 02/2018 with a syncopal episode and went into cardiac arrest twice, was resuscitated and transferred to [facility] on vasopressors. He was admitted to the ICU where a chest tube was placed for a right sided pleural effusion. Cardiology was consulted for severe aortic stenosis and EF of 40% noted on his ROSEANN. He underwent a 6 vessel CABG on 02-21-18 in addition to an aortic valve replacement performed by Dr. Mccloud. He continued to require ventilatory and vasopressors/inotrope support and an intra-aortic balloon pump was placed on 02-24-18. There was concern for a possible pneumonia for which he was placed on empiric antibiotics. He was seen by renal for worsening creatinine and a had PermCath placement for dialysis in addition to being diuresed. He had episodes of junctional rhythm with bradycardia and was unable to tolerate beta-blockers for many days, however this did resolve. He had a PEG tube placed on 03-14-18 and he was weaned off of the vent with eventual decannulation on 04-04-18. He developed post-op Afib and was started on COumadin. Additionally he had thrombocytopenaia and was treated with argatroban. On POD43 he was transferred out of the ICU, chest tubes removed on 04-10-18, was evaluated by therapy and found to have significant deconditioning and deemed medically appropriate for discharge to [facility] ARU on 04-11-18. During his initial rehab stay his requested an MRI of his brain because she was concerned he might have had a stroke at [facility] where imaging of the brain was not performed, and so MRI on 04-14-18 was ordered revealing, "small acute right frontal and left parietal lobe infarctions. Small subacute right parietal lobe infarction. Small vessel ischemic disease. Mild volume loss." Patient had no focal deficits or sensory impairments at the time, his dysphagia was presumed to be from nursing home ventilation and likely critical illness myopathy, but had improved immediately on admission to ARU once po trials were started. He was started on Fenofibrate, continued on ASA and Coumadin for his recently diagnosed Afib for stroke prevention. He performed well in therapy, however his thrombocytopenia worsened, initially infectious work-up was negative, but he had episodes of vomiting with chills, then urgently transferred out to the ICU on 04-18-18 for chest pain for NSTEMI work-up where ultimately he was not found to have elevated cardiac enzymes. However, blood cultures on 04-19-[address] chest revealed multifocal pneumonia, "Dense left lower lobe infiltrate with lesser patchy infiltrates in the right upper and lower lobes. Small bilateral pleural effusions. 5 mm left lower lobe nodule (stable) with a newly apparent 5 mm right middle lobe nodule. Mild new subcarinal lymphadenopathy, could be reactive. Interval median sternotomy and aortic valve replacement. Multiple new, but chronic appearing bilateral rib fractures. Mild anterior compression of the T12 vertebral body, appears recent" and he was started on IV Vancomycin. He had a supratherapeutic INR, was given vitamin K, had worsening thrombocytopenia for which Hematology recommended discontinuing any heparin flushes and his thrombocytopenia gradually improved. Infectious disease recommended a ROSEANN to rule out vegetations which on 04-24-18 was negative for vegetations. His leuokocytosis improved, he was re-evaluated by therapy and deemed medically appropriate for discharge to ARU on 04-25-18. Since he has been home, has noted increasing weight, shortness of breath at rest and with exertion, and persistent hoarse voice since ROSEANN done by Dr. peng to rule out endocarditis. For the past 2 days, sob has worsened despite increased doses of lasix managed as outpt by [facility] from 20mg daily to 40 mg daily. Pt denied any chest pain, pressure, tightness, dizziness, or lightheadedness, and has been compliant both with his decreased salt intake as well as fluid restriction of about 4 cups of liquids daily per the . SOB prompted the to bring the patient in for further evaluation with findings of bilateral pleural effusions on cxr at [facility] er on 05/30/18. Hospitalist was called for admission for CHF. EKG showed no acute ischemia. Of note, pt was adamant about discontinuing his insulin, and had several episodes of hypoglycemia on oral glipizide given by his PCP. EMS had been called to the house on Saturday with glucose of 47 , improved on D50 iv and after eating a peanut butter sandwich and drinking green tea. Acute on Chronic Congestive Heart Failure exacerbation Diastolic dysfunction EF 60% with good compliance with salt and water restriction, as well as medication. Per the , pt has had an increase in wt from 165 lbs to 176 lbs with 2-3 pillow orthopnea, and PATEL with worsening LE edema. EKG on admission : sinus 64, LAFB, nonspecific ST-T wave abnormality, prolonged QT. Pt has been admitted to PCU for lasix diuresis with net negative goal of 1liter daily, strict i/o, daily weights, and 1.8 liter fluid restriction. card chen checked serially, and if ischemic symptoms were to arise, recheck serial EKGS to rule out acute coronary syndrome. Telemetry to rule out uncontrolled arrhythmia with history of atrial fibrillation, but currently sinus rhythm. in light of current acute CHF, glipizide will be held. CXR: bilateral effusions left >>right and elevated bnp. If creatinine worsens, nephrology consult for fluid mgt. repeat echo if worsens clinically. Hyperkalemia due to potassium supplements. no t waves , sine wave on EKG. Atrial Fibrillation on coumadin continue with rate control medication and warfarin for anticoagulation currently at goal of 2-3. resumed home dose of coumadin CKD3 at baseline creatinine. since the patient is receiving diuresis, will need to monitor more closely to prevent worsening azotemia, and may need to consult nephrology if creatinine>2 and persistent fluid overload. pt did receive hemodialysis during his admission at [facility] in february 2018 after CABG. History of right frontal and acute left parietal infarctions on 04-14-18 sustained at [facility] -Carotid ultrasound revealed bilateral 16-49% internal carotid artery narrowing. -Brain MRA reveals mild atherosclerotic irregularity in the proximal posterior cerebral artery on the left. -continue Coumadin for Afib, ASA, and Fenofribrate (allergy to satins) for secondary stroke prevention CAD s/p CABG6 vessel and AVR, TTE positive for diastolic CHF, ROSEANN 04-24-18 negative for vegetations, recently diagnosed post-op Afib continue beta-christian, coumadin and ASA History of Multifocal PNA with MRSA bacteremia completed vanco. ROSEANN negative for endocarditis 04/26. repeat mrsa screen. contact isolation if positive DM with possible gastropareisis, continue insulin therapy and Metoclopramide pre-meals, encouraging smaller meals. in light of active CHF, will dc glipizide. Aortic stenosis s/p porcine valve replacement 02/2018 Hoarse voice DDX: tracheal stenosis. no stridor on exam and saturating well >90% on room air. once CHF is resolved, and pt is clinically stable, ENT consult for further evaluation either as inpt or outpt. DVT ppx: on Coumadin Vital Signs Vital Signs Date Time Temp Pulse Resp B/P (MAP) Pulse Ox O2 Delivery O2 Flow Rate FiO2 05/30/18 08:59 Room Air 05/30/18 08:59 05/30/18 08:08 97.9 65 18 98 Laboratory Data Labs 24H Laboratory Tests 2 05/30/18 08:33: Immature Granulocyte % (Auto) 0.3, White Blood Count 8.7, Red Blood Count 2.71L, Hemoglobin 8.8L, Hematocrit 26.8L, Mean Corpuscular Volume 98.9H, Mean Corpuscular Hemoglobin 32.5, Mean Corpuscular Hemoglobin Concent 32.8, Red Cell Distribution Width 17.4H, Platelet Count 142L, Neutrophils (%) (Auto) 71.1H, Lymphocytes (%) (Auto) 15.7L, Monocytes (%) (Auto) 10.0H, Eosinophils (%) (Auto) 2.2, Basophils (%) (Auto) 0.7, Neutrophils # (Auto) 6.2, Lymphocytes # (Auto) 1.4L, Monocytes # (Auto) 0.9H, Eosinophils # (Auto) 0.2, Basophils # (Auto) 0.1, Nucleated Red Blood Cells % (auto) 0.0, Prothrombin Time 23.6H, Prothromb Time International Ratio 2.06, Activated Partial Thromboplast Time 40.0H, Anion Gap 6L, Glomerular Filtration Rate 43.8, Calcium Level 8.2L, Aspartate Amino Transf (AST/SGOT) 43H, Alanine Aminotransferase (ALT/SGPT) 21, Alkaline Phosphatase 99, Total Bilirubin 0.7, Direct Bilirubin 0.1, Total Creatine Kinase 125, Creatine Kinase MB 3.0, Creatine Kinase MB Relative Index 2.48, Troponin I 0.03, NI-Bfd-V-Type Natriuretic Peptide 6717H, Total Protein 7.8, Albumin 2.4L, Albumin/Globulin Ratio 0.44L, Thyroid Stimulating Hormone (TSH) 5.020H CBC/BMP Laboratory Tests 05/30/18 08:33 Red Blood Count 2.71 L, Mean Corpuscular Volume 98.9 H, Mean Corpuscular Hemoglobin 32.5, Mean Corpuscular Hemoglobin Concent 32.8, Red Cell Distribution Width 17.4 H, Neutrophils (%) (Auto) 71.1 H, Lymphocytes (%) (Auto) 15.7 L, Monocytes (%) (Auto) 10.0 H, Eosinophils (%) (Auto) 2.2, Basophils (%) (Auto) 0.7, Neutrophils # (Auto) 6.2, Lymphocytes # (Auto) 1.4 L, Monocytes # (Auto) 0.9 H, Eosinophils # (Auto) 0.2, Basophils # (Auto) 0.1 Home Medications Scheduled Aspirin (Aspirin EC) 81 Mg Tabec, 81 MG PO DAILY Cholecalciferol (Vitamin D3) 1,000 Unit Tab, 1,000 UNIT PO DAILY Citalopram Hydrobromide (Citalopram Hydrobromide) 20 Mg Tab, 10 MG PO QHS Ferrous Gluconate (Ferrous Gluconate) 324 Mg Tab, 324 MG PO BID Furosemide (Furosemide) 20 Mg Tab, 20 MG PO DAILY Glipizide (Glipizide) 10 Mg Tab, 20 MG PO BID IF BLOOD SUGAR IS CONSISTENTLY ABOVE 170, PT TAKES 20MG BID, IF IT IS BELOW 170 PT WILL TAKE 10MG OR NO DOSE DEPENDING ON BLOOD SUGAR LEVEL Metoprolol Tartrate (Metoprolol Tartrate) 50 Mg Tab, 50 MG PO TID Polyethylene Glycol (Miralax) 1 Pow Pow, 17 GRAM PO QHS for constipation dissolve in water Potassium (Potassium) 99 Mg Tab, 99 MG PO DAILY Warfarin Sod (Warfarin Sodium) 4 Mg Tab, 4 MG PO QPM Scheduled PRN Acetaminophen (Acetaminophen) 325 Mg Tab, 650 MG PO Q4H PRN for PAIN Loratadine (Loratadine) 10 Mg Tab, 10 MG PO DAILY PRN for ALLERGIES Allergies Coded Allergies: [place] (Verified Allergy, Severe, ANAPHYLAXIS, 11/09/14) Penicillins (Verified Allergy, Severe, ANAPHYLAXIS, 08/04/14) Metformin (Verified Allergy, Unknown, 05/30/18) TONGUE SWELLING Statins (Verified Allergy, Unknown, 05/30/18) AMS Duloxetine (Unverified Adverse Reaction, Mild, N/V, 04/16/18) MAYELA GOULD MD May 30, 2018 09:43
[2018-05-30 13:12] VITALS: BP 143/84
[2018-05-30] MEDS: HumaLOG INSULIN (NovoLOG) PER UNIT SC SCH ×3 (13:18→20:41)
[2018-05-30] MEDS: PANTOPRAZOLE 40MG TAB (PROTONIX) PO SCH (13:43)
[2018-05-30] MEDS: FUROSEMIDE 40 MG/4 ML VIAL (J1940) IV SCH ×2 (13:43→18:10)
[2018-05-30 14:28] LABS: HEMOGLOBIN A1c 6.1 %
[2018-05-30 16:00] VITALS: BP 150/75
[2018-05-30 16:45] VITALS: BP 155/88
[2018-05-30 17:09] VITALS: BP 150/76
--- NOTE | 2018-05-30 17:36 | ECGEPIP ---
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
[2018-05-30] MEDS: WARFARIN SOD 4 MG TAB PO SCH (18:11)
[2018-05-30] MEDS: METOPROLOL TART 50 MG TAB PO SCH ×2 (18:11→20:41)
[2018-05-30 18:38] LABS: CALCIUM LEVEL 8.7 MG/DL (8.8-10.2); CREATININE FOR GFR 1.75 MG/DL (0.70-1.30); GLOMERULAR FILTRATION RATE 40.9 (>42); MAGNESIUM LEVEL 2.2 MG/DL (1.8-2.4); MB/CK RELATIVE INDEX 6.56 (< OR =4); POTASSIUM SERUM 3.5 MEQ/L (3.5-5.1); TROPONIN I 0.03 NG/ML (< 0.10)
--- NOTE | 2018-05-30 18:54 | ECGEPIP ---
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 No change from earlier the same day Electronically Signed On 05-30-2018 18:54:28 EST by Martin Nunez
[2018-05-30 20:00] VITALS: BP 161/72
[2018-05-30] MEDS: CitaloPRAM (CeleXA) 10 MG TABLET PO SCH (20:40)
[2018-05-31] VITALS (8 sets, daily range): BP systolic 140–160; BP diastolic 70–92
[2018-05-31] MEDS: FUROSEMIDE 40 MG/4 ML VIAL (J1940) IV SCH ×4 (00:45→17:18)
[2018-05-31 04:18] LABS: BASO # 0.1 10^3/uL (0.0-0.2); BASO % 0.6 % (0.0-1.0); EOS # 0.3 10^3/uL (0.0-0.50); EOS % 3.4 % (0.0-3.0); HEMATOCRIT 28.1 % (42.0-52.0); HEMOGLOBIN 9.2 g/dl (13.5-17.5); LYMPH # 1.4 10^3/uL (1.5-4.5); LYMPH % 17.1 % (24.0-44.0); MEAN CORPUSCULAR HEMOGLOBIN 32.4 pg (27.0-33.0); MEAN CORPUSCULAR HGB CONC 32.7 g/dl (32.0-36.5); MEAN CORPUSCULAR VOLUME 98.9 fl (80.0-96.0); MONO # 0.9 10^3/uL (0.0-0.8); MONO % 10.6 % (0.0-5.0); NEUTROPHILS # 5.6 10^3/uL (1.8-7.7); NEUTROPHILS % 67.8 % (36.0-66.0); PLATELET COUNT, AUTOMATED 147 10^3/uL (150-450); RED BLOOD COUNT 2.84 10^6/uL (4.30-6.10); WHITE BLOOD COUNT 8.3 10^3/uL (4.0-10.0)
[2018-05-31 04:29] LABS: INR 1.89
[2018-05-31 04:45] LABS: CALCIUM LEVEL 8.7 MG/DL (8.8-10.2); CREATININE FOR GFR 1.71 MG/DL (0.70-1.30); MB/CK RELATIVE INDEX 5.93 (< OR =4); POTASSIUM SERUM 3.7 MEQ/L (3.5-5.1); TROPONIN I 0.03 NG/ML (< 0.10)
[2018-05-31] MEDS: IPRATROPIUM 0.5MG/ALBUTEROL 2.5MG INH SOL UD 3ML (DUONEB)(J7620) NEB SCH ×4 (07:14→19:08)
[2018-05-31] MEDS: HumaLOG INSULIN (NovoLOG) PER UNIT SC SCH ×4 (07:30→20:28)
--- NOTE | 2018-05-31 08:36 | REP ---
[address] Rene portable chest, 22 a.m., 05/31/2018, single AP view, the patient semi upright: Comparisons are the portable chest dated 05/30/[address] dated 05/30/2018. There is a right pleural effusion. A portion of this pleural effusion is loculated along the right lateral chest wall. This is unchanged. By CT there is a density in the left lower lobe that could be atelectasis/infiltrate/mass and a small left pleural effusion. These findings are obscured by the left hemidiaphragm on the current portable chest. There are small nodular densities, similar to the comparison CT, nonspecific. Cardiac size is enlarged. There are sternotomy wires. Electronically Signed by Loki Rivera MD 05/31/2018 08:28 A
[2018-05-31] MEDS ORDERED: FENOFIBRATE 145 MG TAB (TRICOR) PO SCH (09:00)
[2018-05-31] MEDS ORDERED: FLUTICASONE PROP 0.05% NASAL SPRAY 16 GM (FLONASE) NARES SCH (09:00)
[2018-05-31] MEDS ORDERED: ASCORBIC ACID 500 MG TAB PO SCH (09:00)
[2018-05-31] MEDS: PANTOPRAZOLE 40MG TAB (PROTONIX) PO SCH (09:02)
[2018-05-31] MEDS: ASPIRIN 81 MG ENTERIC TAB PO SCH (09:03)
[2018-05-31] MEDS: METOPROLOL TART 50 MG TAB PO SCH ×3 (09:03→20:33)
--- NOTE | 2018-05-31 10:37 | IPNPDOC ---
Date Seen The patient was seen on 05/31/18. Progress Note SUBJECTIVE: Overnight, pt diuresed 3.4 liters out with improvement in sob. denies any chest pain,pressure,tightness, lightheadedness. TEle was unremarkable overnight. weight is 72 kg. c/o feeling thirsty. no dizziness, fever, chills, or cough. still w hoarse voice. PHYSICAL EXAMINATION: VITAL SIGNS: Please see below. GENERAL: Pleasant and cooperative. No acute distress. HEENT: PERRL. JVD positive Extraocular movements intact. Clear conjunctiva, +trach scar, no stridor, mouth breathing. hoarse voice and whispers CARDIOVASCULAR:reg rate and rhythm. No murmurs, rubs, or gallops, +sternal in cision-healed LUNGS: diminished breath sounds fine crackles at the bases ABDOMEN: Soft, nontender, nondistended. Positive bowel sounds., NEUROLOGICAL: Alert and oriented times three. Cranial nerves II through XII grossly intact. Sensation grossly intact EXTREMITIES: no pitting edema. 5-\\5 strength bilateral upper extremities. 5-\\5 strength right lower extremity. 5-/5 strength in left lower extremity. intact range of motion in left lower extremity SKIN: bilateral chest tube incisions healing well, trach site with bilat UE petechia LABORATORY DATA: PLS SEE BELOW IMAGING: Chest two views HISTORY: Short as of breath Comparison: None Parenchymal densities densities are present in the lungs consistent with infiltrates that are unchanged compared to the previous study. . There is blunting of the costophrenic angles due to small pleural effusions unchanged on the left and slightly increased on the right. The pulmonary vasculature is normal in appearance. The bony structure is intact. IMPRESSION: 1. Bilateral infiltrates unchanged compared to the previous study. 2. Bilateral pleural effusions slightly increased on the right and unchanged on the left. Electronically Signed by Jl Wren MD 05/30/2018 09:23 A DATE OF PROCEDURE: 04/18/2018 REFERRING PHYSICIAN: Dr. Hill INDICATION: CVA. HEIGHT: 178 cm WEIGHT: 75 kg DIMENSIONS: IVS: 1.3 LV: 4.1 LVPW: 1.3 LA: 4.3. Left atrial volume index: 34 mL per meter square. IVC: 1.9 Mitral E wave velocity: 109 A-wave: 90 E prime septal: 3.5 E prime lateral: 6.4 FINDINGS: The study is of acceptable technical quality. Left ventricle is of normal size. Mild left ventricular hypertrophy is noted. There is septal wall motion abnormality consistent with recent open heart surgery. Other than that, I cannot appreciate any distinct wall motion abnormalities based on somewhat limited views. Overall left ventricular ejection fraction (LVEF) approximately 55-60%. The right ventricle also appears grossly normal size and contractility. Left atrium is moderately enlarged, right atrium was poorly visualized but grossly appears normal. No pericardial effusion is noted. There is a bioprosthesis in aortic position; it appears structurally intact. Mitral valve exhibits prominent degenerative abnormalities with heavy mitral annular calcifications but mobility of leaflets is preserved. Tricuspid valve appears normal. Pulmonic valve was not seen. No pericardial effusion is noted. Inferior vena cava is normal size. Aortic root is normal. Aortic arch and abdominal aorta were not visualized. Doppler interrogation of aortic bioprosthesis reveals no insufficiency and normal gradient, mean gradient was 7 mmHg. There is mild mitral insufficiency and mild tricuspid insufficiency. Calculated pulmonary artery pressure is in high 40s, low 50s corresponding to moderate pulmonary hypertension. Mitral inflow pattern and tissue Doppler imaging of mitral annulus revealed grade 2 diastolic dysfunction. CONCLUSIONS: 1. Study is of acceptable technical quality. 2. Normal left ventricular (LV) size with mild left ventricular hypertrophy, overall preserved left ventricle systolic function and grade 2 diastolic dysfunction. 3. Normally functioning bioprosthesis in aortic position. 4. Mild mitral and tricuspid insufficiency. 5. Normal central venous pressure. 6. Suggestive of moderate pulmonary hypertension. COMMENT: Subacute bacterial endocarditis (SBE) prophylaxis is recommended. DD: Juhi Peng MD 04/18/181900 DT: MITCH 04/18/181924 DS: ANGELA 04/20/181932 <Electronically signed by Juhi Peng MD> 04/20/181932 ASSESSMENT AND PLAN: 73M male with past medical history significant for Multifocal MRSA pneumonia in setting of debility secondary to CABG 02/2018 [facility], AVR, and vent-dependent respiratory failure and recently diagnosed CVA in April 2018 at [facility], Aortic stenosis s/p porcine valve replacement, Atrial Fibrillation on coumadin, CAD, DM2, CKD3 who presented initially to [facility] ED in 02/2018 with a syncopal episode and went into cardiac arrest twice, was resuscitated and transferred to [facility] on vasopressors. He was admitted to the ICU where a chest tube was placed for a right sided pleural effusion. Cardiology was consulted for severe aortic stenosis and EF of 40% noted on his ROSEANN. He underwent a 6 vessel CABG on 02-21-18 in addition to an aortic valve replacement performed by Dr. Mccloud. He continued to require ventilatory and vasopressors/inotrope support and an intra-aortic balloon pump was placed on 02-24-18. There was concern for a possible pneumonia for which he was placed on empiric antibiotics. He was seen by renal for worsening creatinine and a had PermCath placement for dialysis in addition to being diuresed. He had episodes of junctional rhythm with bradycardia and was unable to tolerate beta-blockers for many days, however this did resolve. He had a PEG tube placed on 03-14-18 and he was weaned off of the vent with eventual decannulation on 04-04-18. He developed post-op Afib and was started on COumadin. Additionally he had thrombocytopenaia and was treated with argatroban. On POD43 he was transferred out of the ICU, chest tubes removed on 04-10-18, was evaluated by therapy and found to have significant deconditioning and deemed medically appropriate for discharge to [facility] ARU on 04-11-18. During his initial rehab stay his requested an MRI of his brain because she was concerned he might have had a stroke at [facility] where imaging of the brain was not performed, and so MRI on 04-14-18 was ordered revealing, "small acute right frontal and left parietal lobe infarctions. Small subacute right parietal lobe infarction. Small vessel ischemic disease. Mild volume loss." Patient had no focal deficits or sensory impairments at the time, his dysphagia was presumed to be from fci ventilation and likely critical illness myopathy, but had improved immediately on admission to ARU once po trials were started. He was started on Fenofibrate, continued on ASA and Coumadin for his recently diagnosed Afib for stroke prevention. He performed well in therapy, however his thrombocytopenia worsened, initially infectious work-up was negative, but he had episodes of vomiting with chills, then urgently transferred out to the ICU on 04-18-18 for chest pain for NSTEMI work-up where ultimately he was not found to have elevated cardiac enzymes. However, blood cultures on 04-19-[address] chest revealed multifocal pneumonia, "Dense left lower lobe infiltrate with lesser patchy infiltrates in the right upper and lower lobes. Small bilateral pleural effusions. 5 mm left lower lobe nodule (stable) with a newly apparent 5 mm right middle lobe nodule. Mild new subcarinal lymphadenopathy, could be reactive. Interval median sternotomy and aortic valve replacement. Multiple new, but chronic appearing bilateral rib fractures. Mild anterior compression of the T12 vertebral body, appears recent" and he was started on IV Vancomycin. He had a supratherapeutic INR, was given vitamin K, had worsening thrombocytopenia for which Hematology recommended discontinuing any heparin flushes and his thrombocytopenia gradually improved. Infectious disease recommended a ROSEANN to rule out vegetations which on 04-24-18 was negative for vegetations. His leuokocytosis improved, he was re-evaluated by therapy and deemed medically appropriate for discharge to ARU on 04-25-18. Since he has been home, has noted increasing weight, shortness of breath at rest and with exertion, and persistent hoarse voice since ROSEANN done by Dr. peng to rule out endocarditis. For the past 2 days, sob has worsened despite increased doses of lasix managed as outpt by [facility] from 20mg daily to 40 mg daily. Pt denied any chest pain, pressure, tightness, dizziness, or lightheadedness, and has been compliant both with his decreased salt intake as well as fluid restriction of about 4 cups of liquids daily per the . SOB prompted the to bring the patient in for further evaluation with findings of bilateral pleural effusions on cxr at [facility] er on 05/30/18. Hospitalist was called for admission for CHF. EKG showed no acute ischemia. Of note, pt was adamant about discontinuing his insulin, and had several episodes of hypoglycemia on oral glipizide given by his PCP. EMS had been called to the house on Saturday with glucose of 47 , improved on D50 iv and after eating a peanut butter sandwich and drinking green tea. Acute on Chronic Congestive Heart Failure exacerbation Diastolic dysfunction EF 60% with good compliance with salt and water restriction, as well as medication. Per the , pt has had an increase in wt from 165 lbs to 176 lbs with 2-3 pillow orthopnea, and PATEL with worsening LE edema. EKG on admission : sinus 64, LAFB, nonspecific ST-T wave abnormality, prolonged QT. Pt has been admitted to PCU for lasix diuresis with net negative goal of 1liter daily, strict i/o, daily weights, and 1.8 liter fluid restriction. card chen checked serially, and if ischemic symptoms were to arise, recheck serial EKGS to rule out acute coronary syndrome. Telemetry to rule out uncontrolled arrhythmia with history of atrial fibrillation, but currently sinus rhythm. in light of current acute CHF, glipizide will be held. CXR: bilateral effusions left >>right and elevated bnp. If creatinine worsens, nephrology consult for fluid mgt. repeat echo if worsens clinically. Hyperkalemia due to potassium supplements. no t waves , sine wave on EKG. Atrial Fibrillation on coumadin continue with rate control medication and warfarin for anticoagulation currently at goal of 2-3. resumed home dose of coumadin CKD3 at baseline creatinine. since the patient is receiving diuresis, will need to monitor more closely to prevent worsening azotemia, and may need to consult nephrology if creatinine>2 and persistent fluid overload. pt did receive hemodialysis during his admission at [facility] in february 2018 after CABG. History of right frontal and acute left parietal infarctions on 04-14-18 sustained at [facility] -Carotid ultrasound revealed bilateral 16-49% internal carotid artery narrowing. -Brain MRA reveals mild atherosclerotic irregularity in the proximal posterior cerebral artery on the left. -continue Coumadin for Afib, ASA, and Fenofribrate (allergy to satins) for secondary stroke prevention CAD s/p CABG6 vessel and AVR, TTE positive for diastolic CHF, ROSEANN 04-24-18 negative for vegetations, recently diagnosed post-op Afib continue beta-christian, coumadin and ASA History of Multifocal PNA with MRSA bacteremia completed vanco. ROSEANN negative for endocarditis 04/26. repeat mrsa screen. contact isolation if positive DM with possible gastropareisis, continue insulin therapy and Metoclopramide pre-meals, encouraging smaller meals. in light of active CHF, will dc glipizide. Aortic stenosis s/p porcine valve replacement 02/2018 Hoarse voice DDX: tracheal stenosis. no stridor on exam and saturating well >90% on room air. once CHF is resolved, and pt is clinically stable, ENT consult for further evaluation either as inpt or outpt. DVT ppx: on Coumadin VS, I&O, 24H, [facility] Vital Signs/I&O Vital Signs Date Time Temp Pulse Resp B/P (MAP) Pulse Ox O2 Delivery O2 Flow Rate FiO2 05/31/18 09:03 60 150/71 05/31/18 08:00 98.3 18 95 05/30/18 12:45 Room Air I&O- Last 24 Hours up to 6 AM 05/31/18 06:00 Intake Total 1424 ml Output Total 3500 ml Balance -2076 ml Laboratory Data 24H LABS Laboratory Tests 2 05/30/18 11:53: Potassium Level 3.8#, Total Creatine Kinase 62, Creatine Kinase MB 4.0H, Creatine Kinase MB Relative Index 5.97H, Troponin I 0.03 05/30/18 13:16: Bedside Glucose (Misc Panel) 67L 05/30/18 17:54: Bedside Glucose (Misc Panel) 159H 05/30/18 17:55: Potassium Level 3.5, Total Creatine Kinase 61, Creatine Kinase MB 4.0H, Creatine Kinase MB Relative Index 6.56H, Troponin I 0.03, Anion Gap 9, Glomerular Filtration Rate 40.9L, Blood Urea Nitrogen 45H, Creatinine 1.75H, Sodium Level 139, Chloride Level 101, Carbon Dioxide Level 29, Calcium Level 8.7L, Magnesium Level 2.2 05/30/18 20:29: Bedside Glucose (Misc Panel) 114H 05/30/18 23:32: Bedside Glucose (Misc Panel) 54L 05/31/18 00:01: Bedside Glucose (Misc Panel) 79L 05/31/18 04:03: Immature Granulocyte % (Auto) 0.5, White Blood Count 8.3, Red Blood Count 2.84L, Hemoglobin 9.2L, Hematocrit 28.1L, Mean Corpuscular Volume 98.9H, Mean Corpuscular Hemoglobin 32.4, Mean Corpuscular Hemoglobin Concent 32.7, Red Cell Distribution Width 17.2H, Platelet Count 147L, Neutrophils (%) (Auto) 67.8H, Lymphocytes (%) (Auto) 17.1L, Monocytes (%) (Auto) 10.6H, Eosinophils (%) (Auto) 3.4H, Basophils (%) (Auto) 0.6, Neutrophils # (Auto) 5.6, Lymphocytes # (Auto) 1.4L, Monocytes # (Auto) 0.9H, Eosinophils # (Auto) 0.3, Basophils # (Auto) 0.1, Nucleated Red Blood Cells % (auto) 0.0, Prothrombin Time 22.0H, Prothromb Time International Ratio 1.89, Anion Gap 9, Glomerular Filtration Rate 42.0, Blood Urea Nitrogen 42H, Creatinine 1.71H, Sodium Level 137, Potassium Level 3.7, Chloride Level 102, Carbon Dioxide Level 26, Calcium Level 8.7L, Total Creatine Kinase 54, Magnesium Level 2.0, Creatine Kinase MB 3.0, Creatine Kinase MB Relative Index 5.93H, Troponin I 0.03 CBC/BMP Laboratory Tests 05/30/18 11:53 Total Creatine Kinase 62 05/30/18 17:55 Total Creatine Kinase 61, Calcium Level 8.7 L 05/31/18 04:03 Total Creatine Kinase 54, Calcium Level 8.7 L, Red Blood Count 2.84 L, Mean Corpuscular Volume 98.9 H, Mean Corpuscular Hemoglobin 32.4, Mean Corpuscular Hemoglobin Concent 32.7, Red Cell Distribution Width 17.2 H, Neutrophils (%) (Auto) 67.8 H, Lymphocytes (%) (Auto) 17.1 L, Monocytes (%) (Auto) 10.6 H, Eosinophils (%) (Auto) 3.4 H, Basophils (%) (Auto) 0.6, Neutrophils # (Auto) 5.6, Lymphocytes # (Auto) 1.4 L, Monocytes # (Auto) 0.9 H, Eosinophils # (Auto) 0.3, Basophils # (Auto) 0.1 Microbiology Microbiology 05/30/18 Stool Occult Blood (MANDIE) - Final, Complete 05/30/18 MRSA Screen, Resulted Pending 05/30/18 Respiratory Virus Panel (PCR) (MANDIE) - Final, Resulted MAYELA GOULD MD May 31, 2018 10:37
[2018-05-31] MEDS: WARFARIN SOD 4 MG TAB PO SCH (16:10)
[2018-05-31] MEDS: ACETAMINOPHEN TAB 650MG DOSE (2X325MG) PO PRN ×2 (16:45→20:32)
[2018-05-31] MEDS ORDERED: POTASSIUM CHLORIDE 10 MEQ SR TABLET PO ONE (17:00)
[2018-05-31 18:51] LABS: CALCIUM LEVEL 8.6 MG/DL (8.8-10.2); CREATININE FOR GFR 1.94 MG/DL (0.70-1.30); GLOMERULAR FILTRATION RATE 36.3 (>42); MAGNESIUM LEVEL 1.9 MG/DL (1.8-2.4); POTASSIUM SERUM 3.8 MEQ/L (3.5-5.1)
[2018-05-31] MEDS: CitaloPRAM (CeleXA) 10 MG TABLET PO SCH (20:33)
[2018-05-31] MEDS: amLODIPine 5 MG TAB PO SCH (20:33)
[2018-06-01 04:00] VITALS: BP 141/70
[2018-06-01 05:41] LABS: BASO # 0.1 10^3/uL (0.0-0.2); BASO % 0.7 % (0.0-1.0); EOS # 0.3 10^3/uL (0.0-0.50); EOS % 4.4 % (0.0-3.0); HEMATOCRIT 28.2 % (42.0-52.0); HEMOGLOBIN 9.2 g/dl (13.5-17.5); LYMPH # 1.6 10^3/uL (1.5-4.5); LYMPH % 21.6 % (24.0-44.0); MEAN CORPUSCULAR HEMOGLOBIN 32.2 pg (27.0-33.0); MEAN CORPUSCULAR HGB CONC 32.6 g/dl (32.0-36.5); MEAN CORPUSCULAR VOLUME 98.6 fl (80.0-96.0); MONO # 0.8 10^3/uL (0.0-0.8); MONO % 10.6 % (0.0-5.0); NEUTROPHILS # 4.6 10^3/uL (1.8-7.7); NEUTROPHILS % 61.9 % (36.0-66.0); PLATELET COUNT, AUTOMATED 154 10^3/uL (150-450); RED BLOOD COUNT 2.86 10^6/uL (4.30-6.10); WHITE BLOOD COUNT 7.4 10^3/uL (4.0-10.0)
[2018-06-01 06:01] LABS: INR 2.02; PROTHROMBIN TIME 23.2 SECONDS (12.1-14.4)
[2018-06-01 06:09] LABS: CALCIUM LEVEL 8.7 MG/DL (8.8-10.2); CREATININE FOR GFR 1.8 MG/DL (0.70-1.30); GLOMERULAR FILTRATION RATE 39.6 (>42); MAGNESIUM LEVEL 2.1 MG/DL (1.8-2.4); POTASSIUM SERUM 3.9 MEQ/L (3.5-5.1)
[2018-06-01 07:13] LABS: C REACTIVE PROTEIN QUANTITATIV 4.06 MG/DL (0.00-0.30)
[2018-06-01] MEDS: HumaLOG INSULIN (NovoLOG) PER UNIT SC SCH ×4 (07:30→21:00)
[2018-06-01 07:37] LABS: ERYTHROCYTE SEDIMENTATION RATE 127 mm/hr (0-20)
[2018-06-01 08:00] VITALS: BP 145/71
[2018-06-01] MEDS: amLODIPine 5 MG TAB PO SCH ×2 (08:00→21:07)
[2018-06-01] MEDS: IPRATROPIUM 0.5MG/ALBUTEROL 2.5MG INH SOL UD 3ML (DUONEB)(J7620) NEB SCH ×4 (08:00→20:00)
[2018-06-01] MEDS: PANTOPRAZOLE 40MG TAB (PROTONIX) PO SCH (08:00)
[2018-06-01] MEDS: METOPROLOL TART 50 MG TAB PO SCH ×3 (08:01→21:07)
[2018-06-01] MEDS: ASPIRIN 81 MG ENTERIC TAB PO SCH (08:01)
--- NOTE | 2018-06-01 09:20 | IPNPDOC ---
Date Seen The patient was seen on 06/01/18. Progress Note SUBJECTIVE: Due to worsening creatinine, pt's q6hrs lasix was discontinued. Pt remains in net negative balance since admission with improvement in sob. denies any chest pain,pressure,tightness, lightheadedness. TEle was unremarkable overnight. weight is 69.5 kg. c/o feeling thirsty. no dizziness, fever, chills, or cough. still w hoarse voice. PHYSICAL EXAMINATION: VITAL SIGNS: Please see below. GENERAL: Pleasant and cooperative. No acute distress. HEENT: PERRL. JVD positive Extraocular movements intact. Clear conjunctiva, +trach scar, no stridor, mouth breathing. hoarse voice and whispers CARDIOVASCULAR:reg rate and rhythm. No murmurs, rubs, or gallops, +sternal incision-healed LUNGS: diminished breath sounds fine crackles at the bases ABDOMEN: Soft, nontender, nondistended. Positive bowel sounds., NEUROLOGICAL: Alert and oriented times three. Cranial nerves II through XII grossly intact. Sensation grossly intact EXTREMITIES: no pitting edema. 5-\\5 strength bilateral upper extremities. 5-\\5 strength right lower extremity. 5-/5 strength in left lower extremity. intact range of motion in left lower extremity SKIN: bilateral chest tube incisions healing well, trach site with bilat UE petechia LABORATORY DATA: PLS SEE BELOW IMAGING: Chest two views HISTORY: Short as of breath Comparison: None Parenchymal densities densities are present in the lungs consistent with infiltrates that are unchanged compared to the previous study. . There is blunting of the costophrenic angles due to small pleural effusions unchanged on the left and slightly increased on the right. The pulmonary vasculature is normal in appearance. The bony structure is intact. IMPRESSION: 1. Bilateral infiltrates unchanged compared to the previous study. 2. Bilateral pleural effusions slightly increased on the right and unchanged on the left. Electronically Signed by Jl Wren MD 05/30/2018 09:[address] of the chest without IV contrast: Comparisons are 04/20/2018 and 02/17/2018. The left lower lobe, right upper lobe and right lower lobe infiltrates identified on 04/20/2018 have decreased in size. The left pleural effusion identified on 04/20 2018 is unchanged. The right pleural effusion identified on 04/20/2018 is slightly larger. There are two small ground-glass densities laterally in the right middle lobe, one measuring 8 mm measuring 7 ml. These are nonspecific and could be a small infiltrates or nodules. Follow-up is recommended. The subcarinal adenopathy identified and 04/20/2018 is unchanged. Impression: The multifocal infiltrates have decreased in size. The left pleural effusion is unchanged. The right pleural effusion is slightly larger. The sub carinal adenopathy is unchanged. Two small ground-glass densities in the right middle lobe, infiltrates versus nodules. Electronically Signed by Loki Rivera MD 05/30/2018 10:47 A DD: Loki Rivera MD 05/30/18 1032 [id number] DS: JEIMY 05/30/18 1047 05/30/18 1047 05/31/2018, single AP view, the patient semi upright: Comparisons are the portable chest dated 05/30/[address] dated 05/30/2018. There is a right pleural effusion. A portion of this pleural effusion is loculated along the right lateral chest wall. This is unchanged. By CT there is a density in the left lower lobe that could be atelectasis/infiltrate/mass and a small left pleural effusion. These findings are obscured by the left hemidiaphragm on the current portable chest. There are small nodular densities, similar to the comparison CT, nonspecific. Cardiac size is enlarged. There are sternotomy wires. Electronically Signed by Loki Rivera MD 05/31/2018 08:28 A DD: Loki Rivera MD 05/31/18 0822 0828 DS: EJIMY 05/31/18 0828 05/31/1828 DATE OF PROCEDURE: 04/18/2018 REFERRING PHYSICIAN: Dr. Hill INDICATION: CVA. HEIGHT: 178 cm WEIGHT: 75 kg DIMENSIONS: IVS: 1.3 LV: 4.1 LVPW: 1.3 LA: 4.3. Left atrial volume index: 34 mL per meter square. IVC: 1.9 Mitral E wave velocity: 109 A-wave: 90 E prime septal: 3.5 E prime lateral: 6.4 FINDINGS: The study is of acceptable technical quality. Left ventricle is of normal size. Mild left ventricular hypertrophy is noted. There is septal wall motion abnormality consistent with recent open heart surgery. Other than that, I cannot appreciate any distinct wall motion abnormalities based on somewhat limited views. Overall left ventricular ejection fraction (LVEF) approximately 55-60%. The right ventricle also appears grossly normal size and contractility. Left atrium is moderately enlarged, right atrium was poorly visualized but grossly appears normal. No pericardial effusion is noted. There is a bioprosthesis in aortic position; it appears structurally intact. Mitral valve exhibits prominent degenerative abnormalities with heavy mitral annular calcifications but mobility of leaflets is preserved. Tricuspid valve appears normal. Pulmonic valve was not seen. No pericardial effusion is noted. Inferior vena cava is normal size. Aortic root is normal. Aortic arch and abdominal aorta were not visualized. Doppler interrogation of aortic bioprosthesis reveals no insufficiency and normal gradient, mean gradient was 7 mmHg. There is mild mitral insufficiency and mild tricuspid insufficiency. Calculated pulmonary artery pressure is in high 40s, low 50s corresponding to moderate pulmonary hypertension. Mitral inflow pattern and tissue Doppler imaging of mitral annulus revealed grade 2 diastolic dysfunction. CONCLUSIONS: 1. Study is of acceptable technical quality. 2. Normal left ventricular (LV) size with mild left ventricular hypertrophy, overall preserved left ventricle systolic function and grade 2 diastolic dysfunction. 3. Normally functioning bioprosthesis in aortic position. 4. Mild mitral and tricuspid insufficiency. 5. Normal central venous pressure. 6. Suggestive of moderate pulmonary hypertension. COMMENT: Subacute bacterial endocarditis (SBE) prophylaxis is recommended. DD: Juhi Peng MD 04/18/181900 DT: MITCH 04/18/181924 DS: ANGELA 04/20/181932 <Electronically signed by Juhi Peng MD> 04/20/181932 ASSESSMENT AND PLAN: 73M male with past medical history significant for Multifocal MRSA pneumonia in setting of debility secondary to CABG 02/2018 [facility], AVR, and vent-dependent respiratory failure and recently diagnosed CVA in April 2018 at [facility], Aortic stenosis s/p porcine valve replacement, Atrial Fibrillation on coumadin, CAD, DM2, CKD3 who presented initially to [facility] ED in 02/2018 with a syncopal episode and went into cardiac arrest twice, was resuscitated and transferred to [facility] on vasopressors. He was admitted to the ICU where a chest tube was placed for a right sided pleural effusion. Cardiology was consulted for severe aortic stenosis and EF of 40% noted on his ROSEANN. He underwent a 6 vessel CABG on 02-21-18 in addition to an aortic valve replacement performed by Dr. Mccloud. He continued to require ventilatory and vasopressors/inotrope support and an intra-aortic balloon pump was placed on 02-24-18. There was concern for a possible pneumonia for which he was placed on empiric antibiotics. He was seen by renal for worsening creatinine and a had PermCath placement for dialysis in addition to being diuresed. He had episodes of junctional rhythm with bradycardia and was unable to tolerate beta-blockers for many days, however this did resolve. He had a PEG tube placed on 03-14-18 and he was weaned off of the vent with eventual decannulation on 04-04-18. He deve loped post-op Afib and was started on COumadin. Additionally he had thrombocytopenaia and was treated with argatroban. On POD43 he was transferred out of the ICU, chest tubes removed on 04-10-18, was evaluated by therapy and found to have significant deconditioning and deemed medically appropriate for discharge to [facility] ARU on 04-11-18. During his initial rehab stay his requested an MRI of his brain because she was concerned he might have had a stroke at [facility] where imaging of the brain was not performed, and so MRI on 04-14-18 was ordered revealing, "small acute right frontal and left parietal lobe infarctions. Small subacute right parietal lobe infarction. Small vessel ischemic disease. Mild volume loss." Patient had no focal deficits or sensory impairments at the time, his dysphagia was presumed to be from jail ventilation and likely critical illness myopathy, but had improved immediately on admission to ARU once po trials were started. He was started on Fenofibrate, continued on ASA and Coumadin for his recently diagnosed Afib for stroke prevention. He performed well in therapy, however his thrombocytopenia worsened, initially infectious work-up was negative, but he had episodes of vomiting with chills, then urgently transferred out to the ICU on 04-18-18 for chest pain for NSTEMI work-up where ultimately he was not found to have elevated cardiac enzy mes. However, blood cultures on 04-19-[address] chest revealed multifocal pneumonia, "Dense left lower lobe infiltrate with lesser patchy infiltrates in the right upper and lower lobes. Small bilateral pleural effusions. 5 mm left lower lobe nodule (stable) with a newly apparent 5 mm right middle lobe nodule. Mild new subcarinal lymphadenopathy, could be reactive. Interval median sternotomy and aortic valve replacement. Multiple new, but chronic appearing bilateral rib fractures. Mild anterior compression of the T12 vertebral body, appears recent" and he was started on IV Vancomycin. He had a supratherapeutic INR, was given vitamin K, had worsening thrombocytopenia for which Hematology recommended discontinuing any heparin flushes and his thrombocytopenia gradually improved. Infectious disease recommended a ROSEANN to rule out vegetations which on 04-24-18 was negative for vegetations. His leuokocytosis improved, he was re-evaluated by therapy and deemed medically appropriate for discharge to ARU on 04-25-18. Since he has been home, has noted increasing weight, shortness of breath at rest and with exertion, and persistent hoarse voice since ROSEANN done by Dr. peng to rule out endocarditis. For the past 2 days, sob has worsened despite increased doses of lasix managed as outpt by [facility] from 20mg daily to 40 mg daily. Pt denied any chest pain, pressure, tightness, dizziness, or lightheadedness, and has been compliant both with his decreased salt intake as well as fluid restriction of about 4 cups of liquids daily per the . SOB prompted the to bring the patient in for further evaluation with findings of bilateral pleural effusions on cxr at [facility] er on 05/30/18. Hospitalist was called for admission for CHF. EKG showed no acute ischemia. Of note, pt was adamant about discontinuing his insulin, and had several episodes of hypoglycemia on oral glipizide given by his PCP. EMS had been called to the house on Saturday with glucose of 47 , improved on D50 iv and after eating a peanut butter sandwich and drinking green tea. Acute on Chronic Congestive Heart Failure exacerbation Diastolic dysfunction EF 60% with good compliance with salt and water restriction, as well as medication. Per the , pt has had an increase in wt from 165 lbs to 176 lbs with 2-3 pillow orthopnea, and PATEL with worsening LE edema. EKG on admission : sinus 64, LAFB, nonspecific ST-T wave abnormality, prolonged QT. Pt has been admitted to PCU for lasix diuresis with net negative goal of 1liter daily, strict i/o, daily weights, and 1.8 liter fluid restriction. card chen checked serially, and if ischemic symptoms were to arise, recheck serial EKGS to rule out acute coronary syndrome. Telemetry to rule out uncontrolled arrhythmia with history of atrial fibrillation, but currently sinus rhythm. in light of current acute CHF, glipizide will be held. CXR: bilateral effusions left >>right and elevated bnp. If creatinine worsens, nephrology consult for fluid mgt. repeat echo if worsens clinically. Hyperkalemia,resolved due to potassium supplements. no t waves , sine wave on EKG. discontinued outpatient potassium supplements Small loculated right pleural effusion on repeat cxr 05/31/[address] chest. Pt remains afebrile. no empiric antibiotics. Atrial Fibrillation on coumadin continue with rate control medication and warfarin for anticoagulation currently at goal of 2-3. resumed home dose of coumadin Acute on CKD baseline creatinine is usually around 1.7. since the patient is receiving diuresis, will need to monitor more closely to prevent worsening azotemia, and may need to consult nephrology if creatinine>2 and persistent fluid overload. pt did receive hemodialysis during his admission at [facility] in february 2018 after CABG. Since he has improved clinically, q6hrs lasix iv has been discontinued. His creatinine peaked at 1.9, with decrease to 1.8. will place on bid lasix. History of right frontal and acute left parietal infarctions on 04-14-18 sustained at [facility] -Carotid ultrasound revealed bilateral 16-49% internal carotid artery narrowing. -Brain MRA reveals mild atherosclerotic irregularity in the proximal posterior cerebral artery on the left. -continue Coumadin for Afib, ASA, and Fenofribrate (allergy to satins) for secondary stroke prevention CAD s/p CABG6 vessel and AVR, TTE positive for diastolic CHF, ROSEANN 04-24-18 negative for vegetations, recently diagnosed post-op Afib continue beta-christian, coumadin and ASA History of Multifocal PNA with MRSA bacteremia completed vanco. ROSEANN negative for endocarditis 04/26. repeat mrsa screen. contact isolation if positive DM with possible gastropareisis, continue insulin therapy and Metoclopramide pre-meals, encouraging smaller meals. in light of active CHF, will dc glipizide. Aortic stenosis s/p porcine valve replacement 02/2018 Hoarse voice DDX: tracheal stenosis. no stridor on exam and saturating well >90% on room air. once CHF is resolved, and pt is clinically stable and euvolemic, ENT consult for further evaluation either as inpt or outpt. DVT ppx: on Coumadin VS, I&O, 24H, Fishbone Vital Signs/I&O Vital Signs Date Time Temp Pulse Resp B/P (MAP) Pulse Ox O2 Delivery O2 Flow Rate FiO2 06/01/18 08:01 64 145/71 06/01/18 08:00 97.4 16 97 05/30/18 12:45 Room Air I&O- Last 24 Hours up to 6 AM 06/01/18 06:00 Intake Total 1060 ml Output Total 2000 ml Balance -940 ml Laboratory Data 24H LABS Laboratory Tests 2 05/31/18 12:03: Bedside Glucose (Misc Panel) 198H 05/31/18 16:38: Bedside Glucose (Misc Panel) 200H 05/31/18 18:05: Anion Gap 9, Glomerular Filtration Rate 36.3L, Blood Urea Nitrogen 44H, Creat inine 1.94H, Sodium Level 137, Potassium Level 3.8, Chloride Level 102, Carbon Dioxide Level 26, Calcium Level 8.6L, Magnesium Level 1.9 05/31/18 20:22: Bedside Glucose (Misc Panel) 107 06/01/18 05:03: Immature Granulocyte % (Auto) 0.8, White Blood Count 7.4, Red Blood Count 2.86L, Hemoglobin 9.2L, Hematocrit 28.2L, Mean Corpuscular Volume 98.6H, Mean Corpu scular Hemoglobin 32.2, Mean Corpuscular Hemoglobin Concent 32.6, Red Cell Distribution Width 17.1H, Platelet Count 154, Neutrophils (%) (Auto) 61.9, Lymphocytes (%) (Auto) 21.6L, Monocytes (%) (Auto) 10.6H, Eosinophils (%) (Auto) 4.4H, Basophils (%) (Auto) 0.7, Neutrophils # (Auto) 4.6, Lymphocytes # (Auto) 1.6, Monocytes # (Auto) 0.8, Eosinophils # (Auto) 0.3, Basophils # (Auto) 0.1, Nucleated Red Blood Cells % (auto) 0.0, Erythrocyte Sedimentation Rate 127H, Prothrombin Time 23.2H, Prothromb Time International Ratio 2.02, Anion Gap 7L, Glomerular Filtration Rate 39.6L, Blood Urea Nitrogen 47H, Creatinine 1.80H, Sodium Level 138, Potassium Level 3.9, Chloride Level 104, Carbon Dioxide Level 27, Calcium Level 8.7L, Magnesium Level 2.1, C-Reactive Protein, Quantitative 4.06H CBC/BMP Laboratory Tests 05/31/18 18:05 Calcium Level 8.6 L 06/01/18 05:03 Calcium Level 8.7 L, Red Blood Count 2.86 L, Mean Corpuscular Volume 98.6 H, Mean Corpuscular Hemoglobin 32.2, Mean Corpuscular Hemoglobin Concent 32.6, Red Cell Distribution Width 17.1 H, Neutrophils (%) (Auto) 61.9, Lymphocytes (%) (Auto) 21.6 L, Monocytes (%) (Auto) 10.6 H, Eosinophils (%) (Auto) 4.4 H, Basophils (%) (Auto) 0.7, Neutrophils # (Auto) 4.6, Lymphocytes # (Auto) 1.6, Monocytes # (Auto) 0.8, Eosinophils # (Auto) 0.3, Basophils # (Auto) 0.1 Microbiology Microbiology 05/30/18 Stool Occult Blood (MANDIE) - Final, Complete 05/30/18 MRSA Screen - Final, Complete 05/30/18 Respiratory Virus Panel (PCR) (MANDIE) - Final, Complete MAYELA GOULD MD Jun 01, 2018 09:13
[2018-06-01 12:00] VITALS: BP 144/71
[2018-06-01 16:00] VITALS: BP 138/68
[2018-06-01] MEDS: WARFARIN SOD 4 MG TAB PO SCH (16:59)
[2018-06-01 18:52] LABS: CALCIUM LEVEL 8.4 MG/DL (8.8-10.2); CREATININE FOR GFR 1.94 MG/DL (0.70-1.30); GLOMERULAR FILTRATION RATE 36.3 (>42); POTASSIUM SERUM 4.6 MEQ/L (3.5-5.1)
[2018-06-01 20:00] VITALS: BP 141/69
[2018-06-01] MEDS: CitaloPRAM (CeleXA) 10 MG TABLET PO SCH (21:06)
[2018-06-02] VITALS (7 sets, daily range): BP systolic 130–149; BP diastolic 64–75
[2018-06-02 05:30] LABS: BASO # 0.1 10^3/uL (0.0-0.2); BASO % 0.9 % (0.0-1.0); EOS # 0.3 10^3/uL (0.0-0.50); EOS % 3.4 % (0.0-3.0); HEMATOCRIT 27.8 % (42.0-52.0); HEMOGLOBIN 9.2 g/dl (13.5-17.5); LYMPH # 1.6 10^3/uL (1.5-4.5); LYMPH % 20.5 % (24.0-44.0); MEAN CORPUSCULAR HEMOGLOBIN 32.1 pg (27.0-33.0); MEAN CORPUSCULAR HGB CONC 33.1 g/dl (32.0-36.5); MEAN CORPUSCULAR VOLUME 96.9 fl (80.0-96.0); MONO # 0.8 10^3/uL (0.0-0.8); MONO % 10.1 % (0.0-5.0); NEUTROPHILS # 5.1 10^3/uL (1.8-7.7); NEUTROPHILS % 64.3 % (36.0-66.0); PLATELET COUNT, AUTOMATED 161 10^3/uL (150-450); RED BLOOD COUNT 2.87 10^6/uL (4.30-6.10)
[2018-06-02 05:34] LABS: INR 2.06; PROTHROMBIN TIME 23.6 SECONDS (12.1-14.4)
[2018-06-02 05:48] LABS: CALCIUM LEVEL 8.3 MG/DL (8.8-10.2); CREATININE FOR GFR 1.85 MG/DL (0.70-1.30); GLOMERULAR FILTRATION RATE 38.3 (>42); POTASSIUM SERUM 3.7 MEQ/L (3.5-5.1)
[2018-06-02] MEDS: HumaLOG INSULIN (NovoLOG) PER UNIT SC SCH ×4 (07:30→21:00)
[2018-06-02] MEDS: IPRATROPIUM 0.5MG/ALBUTEROL 2.5MG INH SOL UD 3ML (DUONEB)(J7620) NEB SCH ×4 (08:00→19:29)
[2018-06-02] MEDS: PANTOPRAZOLE 40MG TAB (PROTONIX) PO SCH (08:18)
[2018-06-02] MEDS: amLODIPine 5 MG TAB PO SCH ×2 (08:18→21:04)
[2018-06-02] MEDS: METOPROLOL TART 50 MG TAB PO SCH ×3 (08:18→21:04)
[2018-06-02] MEDS: ASPIRIN 81 MG ENTERIC TAB PO SCH (08:18)
[2018-06-02] MEDS: TORSEMIDE 10 MG TABLET PO SCH (13:13)
--- NOTE | 2018-06-02 14:01 | IPNPDOC ---
Date Seen The patient was seen on 06/02/18. Progress Note SUBJECTIVE: ENT consulted per patient's request for HOARSE VOICE s/p multiple intubations in the past to rule out TRACHEAL STENOSIS. No stridor on exam and saturating well on room air. He appears to be euvolemic. no c/o sob, chest pain, pressure, tightness. continues to have hoarse voice. is concerned about persistent hypoglycemia s/p oral hypoglycemics at home, and says she cannot pay for insulin at home. Review of previous CT chest and repeat CXR with radiologist: no significant change in the loculated fluid. pt has remained afebrile, with normal white count, and no cough or chills. should the pt become clinically unstable,and repeat CT chest shows enlargement of the loculated effusion, consider abx coverage and thoracic surgical consult. PHYSICAL EXAMINATION: VITAL SIGNS: Please see below. GENERAL: Pleasant and cooperative. No acute distress. hoarse voice, but no stridor HEENT: PERRL. JVD positive Extraocular movements intact. Clear conjunctiva no stridor, mouth breathing. CARDIOVASCULAR:reg rate and rhythm. No murmurs, rubs, or gallops, +sternal incision-healed LUNGS: diminished. fine crepitations at the bases. ABDOMEN: Soft, nontender, nondistended. Positive bowel sounds., NEUROLOGICAL: Alert and oriented times three. Cranial nerves II through XII grossly intact. Sensation grossly intact EXTREMITIES: no pitting edema. 5-\\5 strength bilateral upper extremities. 5-\\5 strength right lower extremity. 5-/5 strength in left lower extremity. intact range of motion in left lower extremity LABORATORY DATA: PLS SEE BELOW IMAGING: Chest two views HISTORY: Short as of breath Comparison: None Parenchymal densities densities are present in the lungs consistent with infiltrates that are unchanged compared to the previous study. . There is blunting of the costophrenic angles due to small pleural effusions unchanged on the left and slightly increased on the right. The pulmonary vasculature is normal in appearance. The bony structure is intact. IMPRESSION: 1. Bilateral infiltrates unchanged compared to the previous study. 2. Bilateral pleural effusions slightly increased on the right and unchanged on the left. Electronically Signed by Jl Wren MD 05/30/2018 09:[address] of the chest without IV contrast: Comparisons are 04/20/2018 and 02/17/2018. The left lower lobe, right upper lobe and right lower lobe infiltrates identified on 04/20/2018 have decreased in size. The left pleural effusion identified on 04/20 2018 is unchanged. The right pleural effusion identified on 04/20/2018 is slightly larger. There are two small ground-glass densities laterally in the right middle lobe, one measuring 8 mm measuring 7 ml. These are nonspecific and could be a small infiltrates or nodules. Follow-up is recommended. The subcarinal adenopathy identified and 04/20/2018 is unchanged. Impression: The multifocal infiltrates have decreased in size. The left pleural effusion is unchanged. The right pleural effusion is slightly larger. The sub carinal adenopathy is unchanged. Two small ground-glass densities in the right middle lobe, infiltrates versus nodules. Electronically Signed by Loki Rivera MD 05/30/2018 10:47 A DD: Loki Rivera MD 05/30/18 1032 [id number] DS: JEIMY 05/30/18 1047 05/30/18 1047 05/31/2018, single AP view, the patient semi upright: Comparisons are the portable chest dated 05/30/[address] dated 05/30/2018. There is a right pleural effusion. A portion of this pleural effusion is loculated along the right lateral chest wall. This is unchanged. By CT there is a density in the left lower lobe that could be atelectasis/infiltrate/mass and a small left pleural effusion. These findings are obscured by the left hemidiaphragm on the current portable chest. There are small nodular densities, similar to the comparison CT, nonspecific. Cardiac size is enlarged. There are sternotomy wires. Electronically Signed by Loki Rivera MD 05/31/2018 08:28 A DD: Loki Rivera MD 05/31/18 0822 0828 DS: JEIMY 05/31/18 0828 05/31/1828 DATE OF PROCEDURE: 04/18/2018 REFERRING PHYSICIAN: Dr. Hill INDICATION: CVA. HEIGHT: 178 cm WEIGHT: 75 kg DIMENSIONS: IVS: 1.3 LV: 4.1 LVPW: 1.3 LA: 4.3. Left atrial volume index: 34 mL per meter square. IVC: 1.9 Mitral E wave velocity: 109 A-wave: 90 E prime septal: 3.5 E prime lateral: 6.4 FINDINGS: The study is of acceptable technical quality. Left ventricle is of normal size. Mild left ventricular hypertrophy is noted. There is septal wall motion abnormality consistent with recent open heart surgery. Other than that, I cannot appreciate any distinct wall motion abnormalities based on somewhat limited views. Overall left ventricular ejection fraction (LVEF) approximately 55-60%. The right ventricle also appears grossly normal size and contractility. Left atrium is moderately enlarged, right atrium was poorly visualized but grossly appears normal. No pericardial effusion is noted. There is a bioprosthesis in aortic position; it appears structurally intact. Mitral valve exhibits prominent degenerative abnormalities with heavy mitral annular calcifications but mobility of leaflets is preserved. Tricuspid valve appears normal. Pulmonic valve was not seen. No pericardial effusion is noted. Inferior vena cava is normal size. Aortic root is normal. Aortic arch and abdominal aorta were not visualized. Doppler interrogation of aortic bioprosthesis reveals no insufficiency and normal gradient, mean gradient was 7 mmHg. There is mild mitral insufficiency and mild tricuspid insufficiency. Calculated pulmonary artery pressure is in high 40s, low 50s corresponding to moderate pulmonary hypertension. Mitral inflow pattern and tissue Doppler imaging of mitral annulus revealed grade 2 diastolic dysfunction. CONCLUSIONS: 1. Study is of acceptable technical quality. 2. Normal left ventricular (LV) size with mild left ventricular hypertrophy, overall preserved left ventricle systolic function and grade 2 diastolic dysfunction. 3. Normally functioning bioprosthesis in aortic position. 4. Mild mitral and tricuspid insufficiency. 5. Normal central venous pressure. 6. Suggestive of moderate pulmonary hypertension. COMMENT: Subacute bacterial endocarditis (SBE) prophylaxis is recommended. DD: Juhi Peng MD 04/18/181900 DT: MITCH 04/18/181924 DS: ANGELA 04/20/181932 <Electronically signed by Juhi Peng MD> 04/20/181932 ASSESSMENT AND PLAN: 73M male with past medical history significant for Multifocal MRSA pneumonia in setting of debility secondary to CABG 02/2018 [facility], AVR, and vent-dependent respiratory failure and recently diagnosed CVA in April 2018 at [facility], Aortic stenosis s/p porcine valve replacement, Atrial Fibrillation on coumadin, CAD, DM2, CKD3 who presented initially to [facility] ED in with a syncopal episode and went into cardiac arrest twice, was resuscitated and transferred to [facility] on vasopressors. He was admitted to the ICU where a chest tube was placed for a right sided pleural effusion. Cardiology was consulted for severe aortic stenosis and EF of 40% noted on his ROSEANN. He underwent a 6 vessel CABG on 02-21-18 in addition to an aortic valve replacement performed by Dr. Mccloud. He continued to require ventilatory and vasopressors/inotrope support and an intra-aortic balloon pump was placed on 02-24-18. There was concern for a possible pneumonia for which he was placed on empiric antibiotics. He was seen by renal for worsening creatinine and a had PermCath placement for dialysis in addition to being diuresed. He had episodes of junctional rhythm with bradycardia and was unable to tolerate beta-blockers for many days, however this did resolve. He had a PEG tube placed on 03-14-18 and he was weaned off of the vent with eventual decannulation on 04-04-18. He developed post-op Afib and was started on COumadin. Additionally he had thrombocytopenaia and was treated with argatroban. On POD43 he was transferred out of the ICU, chest tubes removed on 04-10-18, was evaluated by therapy and found to have significant deconditioning and deemed medically appropriate for discharge to [facility] ARU on 04-11-18. During his initial rehab stay his requested an MRI of his brain because she was concerned he might have had a stroke at [facility] where imaging of the brain was not performed, and so MRI on 04-14-18 was ordered revealing, "small acute right frontal and left parietal lobe infarctions. Small subacute right parietal lobe infarction. Small vessel ischemic disease. 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 He was started on Fenofibrate, continued on ASA and Coumadin for his recently diagnosed Afib for stroke prevention. He performed well in therapy, however his thrombocytopenia worsened, initially infectious work-up was negative, but he had episodes of vomiting with chills, then urgently transferred out to the ICU on 04-18-18 for chest pain for NSTEMI work-up where ultimately he was not found to have elevated cardiac enzymes. However, blood cultures on 04-19-[address] chest revealed multifocal pneumonia, "Dense left lower lobe infiltrate with lesser patchy infiltrates in the right upper and lower lobes. Small bilateral pleural effusions. 5 mm left lower lobe nodule (stable) with a newly apparent 5 mm right middle lobe nodule. Mild new subcarinal lymphadenopathy, could be reactive. Interval median sternotomy and aortic valve replacement. Multiple new, but chronic appearing bilateral rib fractures. Mild anterior compression of the T12 vertebral body, appears recent" and he was started on IV Vancomycin. He had a supratherapeutic INR, was given vitamin K, had worsening thrombocytopenia for which Hematology recommended discontinuing any heparin flushes and his thrombocytopenia gradually improved. Infectious disease recommended a ROSEANN to rule out vegetations which on 04-24-18 was negative for vegetations. His leuokocytosis improved, he was re-evaluated by therapy and deemed medically appropriate for discharge to ARU on 04-25-18. Since he has been home, has noted increasing weight, shortness of breath at rest and with exertion, and persistent hoarse voice since ROSEANN done by Dr. peng to rule out endocarditis. For the past 2 days, sob has worsened despite increased doses of lasix managed as outpt by [facility] from 20mg daily to 40 mg daily. Pt denied any chest pain, pressure, tightness, dizziness, or lightheadedness, and has been compliant both with his decreased salt intake as well as fluid restriction of about 4 cups of liquids daily per the . SOB prompted the to bring the patient in for further evaluation with findings of bilateral pleural effusions on cxr at [facility] er on 05/30/18. Hospitalist was called for admission for CHF. EKG showed no acute ischemia. Of note, pt was adamant about discontinuing his insulin, and had several episodes of hypoglycemia on oral glipizide given by his PCP. EMS had been called to the house on Saturday with glucose of 47 , improved on D50 iv and after eating a peanut butter sandwich and drinking green tea. Acute on Chronic Congestive Heart Failure exacerbation Diastolic dysfunction EF 60% with good compliance with salt and water restriction, as well as medication. Per the , pt has had an increase in wt from 165 lbs to 176 lbs with 2-3 pillow orthopnea, and PATEL with worsening LE edema. EKG on admission : sinus 64, LAFB, nonspecific ST-T wave abnormality, prolonged QT. Pt has been admitted to PCU for lasix diuresis with net negative goal of 1liter daily, strict i/o, daily weights, and 1.8 liter fluid restriction. card chen checked serially, and if ischemic symptoms were to arise, recheck serial EKGS to rule out acute coronary syndrome. Telemetry to rule out uncontrolled arrhythmia with history of atrial fibrillation, but currently sinus rhythm. in light of current acute CHF, glipizide will be held. CXR: bilateral effusions left >>right and elevated bnp. Hyperkalemia,resolved due to potassium supplements. no t waves , sine wave on EKG. discontinued outpatient potassium supplements Small loculated right pleural effusion on repeat cxr 05/31/[address] chest. Pt remains afebrile with no cough chills or elevated white count. no empiric antibiotics. Atrial Fibrillation on coumadin continue with rate control medication and warfarin for anticoagulation currently at goal of 2-3. resumed home dose of coumadin Acute on CKD baseline creatinine is usually around 1.7. since the patient is receiving diuresis, will need to monitor more closely to prevent worsening azotemia, and may need to consult nephrology if creatinine>2 and persistent fluid overload. pt did receive hemodialysis during his admission at [facility] in february 2018 after CABG. Since he has improved clinically, q6hrs lasix iv has been discontinued. His creatinine peaked at 1.9, with decrease to 1.8. nep hrology consulted and restarted on po torsemide daily. History of right frontal and acute left parietal infarctions on 04-14-18 sustained at [facility] -Carotid ultrasound revealed bilateral 16-49% internal carotid artery narrowing. -Brain MRA reveals mild atherosclerotic irregularity in the proximal posterior cerebral artery on the left. -continue Coumadin for Afib, ASA, and Fenofribrate (allergy to satins) for secondary stroke prevention CAD s/p CABG6 vessel and AVR, TTE positive for diastolic CHF, ROSEANN 04-24-18 negative for vegetations, recently diagnosed post-op Afib continue beta-christian, coumadin and ASA History of Multifocal PNA with MRSA bacteremia completed vanco. ROSEANN negative for endocarditis 04/26. repeat mrsa screen. contact isolation if positive DM with possible gastropareisis, continue insulin therapy and Metoclopramide pre-meals, encouraging smaller meals. in light of active CHF, will dc glipizide. Aortic stenosis s/p porcine valve replacement 02/2018 Hoarse voice DDX: tracheal stenosis. no stridor on exam and saturating well >90% on room air. once CHF is resolved, and pt is clinically stable and euvolemic, ENT consult for further evaluation either as inpt or outpt. DVT ppx: on Coumadin VS, I&O, 24H, Fishbone Vital Signs/I&O Vital Signs Date Time Temp Pulse Resp B/P (MAP) Pulse Ox O2 Delivery O2 Flow Rate FiO2 06/02/18 12:00 97.4 63 17 134/64 (87) 99 05/30/18 12:45 Room Air I&O- Last 24 Hours up to 6 AM 06/02/18 06:00 Intake Total 730 ml Output Total 1050 ml Balance -320 ml Laboratory Data 24H LABS Laboratory Tests 2 06/01/18 16:58: Bedside Glucose (Misc Panel) 105 06/01/18 18:07: Anion Gap 8, Glomerular Filtration Rate 36.3L, Blood Urea Nitrogen 53H, Cre atinine 1.94H, Sodium Level 139, Potassium Level 4.6, Chloride Level 105, Carbon Dioxide Level 26, Calcium Level 8.4L, Magnesium Level 2.0 06/01/18 20:34: Bedside Glucose (Misc Panel) 148H 06/02/18 04:54: Anion Gap 8, Glomerular Filtration Rate 38.3L, Blood Urea Nitrogen 52H, Creatinine 1.85H, Sodium Level 136, Potassium Level 3.7, Chloride Level 107, Carbon Dioxide Level 21, Calcium Level 8.3L, Magnesium Level 2.0, Immature Granulocyte % (Auto) 0.8, White Blood Count 8.0, Red Blood Count 2.87L, Hemoglobin 9.2L, Hematocrit 27.8L, Mean Corpuscular Volume 96.9H, Mean Corpuscular Hemoglobin 32.1, Mean Corpuscular Hemoglobin Concent 33.1, Red Cell Distribution Width 16.9H, Platelet Count 161, Neutrophils (%) (Auto) 64.3, Lymphocytes (%) (Auto) 20.5L, Monocytes (%) (Auto) 10.1H, Eosinophils (%) (Auto) 3.4H, Basophils (%) (Auto) 0.9, Neutrophils # (Auto) 5.1, Lymphocytes # (Auto) 1.6, Monocytes # (Auto) 0.8, Eosinophils # (Auto) 0.3, Basophils # (Auto) 0.1, Nucleated Red Blood Cells % (auto) 0.0, Prothrombin Time 23.6H, Prothromb Time International Ratio 2.06 06/02/18 12:51: Bedside Glucose (Misc Panel) 212H CBC/BMP Laboratory Tests 06/01/18 18:07 Calcium Level 8.4 L 06/02/18 04:54 Calcium Level 8.3 L, Red Blood Count 2.87 L, Mean Corpuscular Volume 96.9 H, Mean Corpuscular Hemoglobin 32.1, Mean Corpuscular Hemoglobin Concent 33.1, Red Cell Distribution Width 16.9 H, Neutrophils (%) (Auto) 64.3, Lymphocytes (%) (Auto) 20.5 L, Monocytes (%) (Auto) 10.1 H, Eosinophils (%) (Auto) 3.4 H, Basophils (%) (Auto) 0.9, Neutrophils # (Auto) 5.1, Lymphocytes # (Auto) 1.6, Monocytes # (Auto) 0.8, Eosinophils # (Auto) 0.3, Basophils # (Auto) 0.1 Microbiology Microbiology 05/30/18 Stool Occult Blood (MANDIE) - Final, Complete 05/30/18 MRSA Screen - Final, Complete 05/30/18 Respiratory Virus Panel (PCR) (MANDIE) - Final, Complete MAYELA GOULD MD Jun 02, 2018 13:56
[2018-06-02] MEDS: WARFARIN SOD 4 MG TAB PO SCH (17:10)
[2018-06-02 18:29] LABS: CALCIUM LEVEL 8.2 MG/DL (8.8-10.2); CREATININE FOR GFR 1.97 MG/DL (0.70-1.30); GLOMERULAR FILTRATION RATE 35.7 (>42); MAGNESIUM LEVEL 2.1 MG/DL (1.8-2.4); POTASSIUM SERUM 4.3 MEQ/L (3.5-5.1)
[2018-06-02] MEDS: CitaloPRAM (CeleXA) 10 MG TABLET PO SCH (21:04)
[2018-06-03 04:00] VITALS: BP 143/69
--- NOTE | 2018-06-03 04:38 | CR ---
DATE OF SERVICE: 06/02/2018 REQUESTING PHYSICIAN: Daniella Leon MD CONSULTING PHYSICIAN: Felisa Power MD REASON FOR CONSULTATION: Management of volume status and fluid overload in this patient with chronic kidney disease. CHIEF COMPLAINT: The patient presented to the hospital on May 30, 2018 with progressive shortness of breath for about 2 days. HISTORY OF PRESENT ILLNESS: Mr. Newton Bernard is a 73-year-old male with chronic kidney disease stage III, best baseline creatinine is 1.5 as per previous records, history of extensive coronary artery disease status post coronary artery bypass grafting in February of 2018 when he got aortic valve replacement and six coronary bypasses were done, history of cerebrovascular accident (CVA) times two. He recently stayed for about three months at [facility] in [place]. He was recently discharged about 3-1/2 weeks ago and he was at home where he felt progressive shortness of breath, weight gain and dyspnea on mild exertion. The patient was taking Lasix 20 mg daily at home which was not helping him. He was admitted under the hospitalist service. He was started on Intravenous (IV) diuretics. He was diuresed well on May 30 and May 31 with IV Lasix. His volume status is improving. Nephrology service was called for further help in the management of fluid status and recommendations according to hold diuretics before the patient is sent back home. I saw and evaluated the patient today morning at the bedside. The patient is afebrile, hemodynamically stable. He reports that his shortness of breath is significantly better after IV diuretics. He denies any active complaints at this point. PAST MEDICAL HISTORY: Past medical history of: 1. Aortic stenosis status post aortic valve replacement. 2. Coronary artery disease status post coronary artery bypass grafting (CABG) times six grafts. 3. Chronic kidney disease stage III. 4. Diabetes mellitus type 2. 5. Hypertension. 6. A recent ventilator dependent respiratory failure and prolonged hospital stay. 7. A recent pneumonia with methicillin-resistant Staphylococcus aureus (MRSA). 8. Cerebrovascular accident (CVA) times two. PAST SURGICAL HISTORY: 1. Status post coronary artery bypass grafting times six vessels in February of 2018. 2. Status post aortic valve replacement in February of 2018 and he required left lower extremity vein harvesting during coronary artery bypass grafting. ALLERGIES: The patient is allergic to DULOXETINE, CUCUMBER, METFORMIN, PENICILLIN, and STATINS. FAMILY HISTORY: No significant family history of end-stage renal disease requiring hemodialysis. SOCIAL HISTORY: He recently had a prolonged hospital stay for about 3 months in the hospital. He was living at home when he presented to the hospital. He denies any illicit drug abuse or alcohol abuse. REVIEW OF SYSTEMS: CONSTITUTIONAL: He denies any fevers or chills at this point. EYES: He denies any blurry vision, double vision. ENT: He denies any dysphagia, odynophagia or ear discharge. CARDIOVASCULAR: He denies any chest pain or palpitations. RESPIRATORY: He denies any shortness of breath. GASTROINTESTINAL (GI): He denies any nausea or vomiting. GENITOURINARY (): He denies any dysuria or hematuria. MUSCULOSKELETAL: He denies any muscle aches and pains. SKIN: He denies any rashes or ulcers. CENTRAL NERVOUS SYSTEM (PROCUREMENT REPRESENTATIVE): He denies any weakness. He does report recent history of cerebrovascular accident (CVA) times two. ENDOCRINE: He reports a history of diabetes mellitus type 2. HEMATOLOGICAL ONCOLOGICAL: He denies any easy bleeding or bruising. All other review of systems is negative. PHYSICAL EXAMINATION: GENERAL: The patient is awake, alert, oriented times three. Sitting up in the bed in no apparent distress. VITAL SIGNS: Temperature is 98.1 degrees Fahrenheit, blood pressure (BP) 137/73, pulse is 68, respiratory rate of 70, saturating 97% on room air. INTAKE AND OUTPUT: Urine output recorded as 1 liter yesterday. Weight on the bed scale is 73.5 kg. HEAD AND NECK EXAM: Extraocular muscles are intact. Pupils are equally round and reactive to light. Mucous membranes are moist. Neck is supple. There is mildly elevated jugular venous distention (JVD). CARDIOVASCULAR: S1, S2. No murmurs, rubs or gallops. Midline sternotomy scar is visible. Trace edema of the bilateral lower extremities. RESPIRATORY: Mildly decreased breath sounds at the bases with mild expiratory crackles at the bases on deep inspiration. Otherwise no active rales or rhonchi. ABDOMEN: Soft, positive bowel sounds. Nontender, no organomegaly. GENITOURINARY (): No hernia were noted. MUSCULOSKELETAL: No clubbing or cyanosis. Pulses are 2+. CENTRAL NERVOUS SYSTEM (PROCUREMENT REPRESENTATIVE): No focal deficits. Power is 5/5 in all extremities. LABORATORY REVIEW: Complete blood count (CBC) showed a white blood cell (WBC) of 8, hemoglobin is 9.2, platelets are 161. Basic metabolic panel (BMP) showed sodium 137, potassium 4.3, chloride 105, bicarbonate 24, BUN 52, creatinine is 1.9, calcium 8.2. Magnesium is 2.1. IMAGING: A CT of the chest was done on May 30, 2018 which showed multifocal infiltrates have decreased in size, left sided pleural effusion in unchanged, right sided pleural effusion was slightly larger. CURRENT INPATIENT MEDICATIONS: The patient's medications include: - Tylenol as needed - DuoNeb as needed for wheezing - amlodipine 5 mg by mouth twice a day - aspirin 81 mg daily - Celexa 10 mg at bedtime - insulin Humalog sliding scale - metoprolol 50 mg by mouth three times a day - Protonix 40 mg by mouth daily - He is currently not on any diuretics. - warfarin 4 mg by mouth daily ASSESSMENT AND PLAN: A 73-year-old male with chronic kidney disease stage III, coronary artery disease (CAD), atrial fibrillation admitted at this time with decompensated diastolic congestive heart failure. PLAN: 1. Chronic kidney disease stage III. The patient's renal function is stable close to baseline. His best baseline creatinine is 1.5. His creatinine right now is fluctuating around 1.6 to 1.7. It is okay to continue a low dose of diuretics. Electrolytes are within the acceptable range. 2. Acute on chronic diastolic congestive heart failure (CHF). The patient's volume status is significantly better. He responded very well to the intravenous (IV) diuretics. I have started him on low dose oral diuretic torsemide 10 mg by mouth daily. Continue to monitor intake and output and daily weight. 3. Atrial fibrillation. His heart rate is controlled with the current dose of metoprolol. He is anticoagulated with Coumadin. 4. Hypertension with chronic kidney disease and hypertensive heart disease. Continue current dose of amlodipine 5 mg by mouth daily. He is on metoprolol which is helping with atrial fibrillation and hypertension as well. Avoid use of CUONG inhibitors at this point because of chronic kidney disease (CKD). Thank you for involving me in the care of this patient. I shall be happy to follow the patient along with you tomorrow morning.
[2018-06-03 05:39] LABS: BASO # 0.1 10^3/uL (0.0-0.2); BASO % 0.7 % (0.0-1.0); EOS # 0.3 10^3/uL (0.0-0.50); EOS % 4.2 % (0.0-3.0); HEMATOCRIT 26.9 % (42.0-52.0); HEMOGLOBIN 8.7 g/dl (13.5-17.5); LYMPH # 1.3 10^3/uL (1.5-4.5); LYMPH % 18.4 % (24.0-44.0); MEAN CORPUSCULAR HEMOGLOBIN 32.1 pg (27.0-33.0); MEAN CORPUSCULAR HGB CONC 32.3 g/dl (32.0-36.5); MEAN CORPUSCULAR VOLUME 99.3 fl (80.0-96.0); MONO # 0.8 10^3/uL (0.0-0.8); MONO % 11.6 % (0.0-5.0); NEUTROPHILS # 4.6 10^3/uL (1.8-7.7); NEUTROPHILS % 64.4 % (36.0-66.0); PLATELET COUNT, AUTOMATED 154 10^3/uL (150-450); RED BLOOD COUNT 2.71 10^6/uL (4.30-6.10); WHITE BLOOD COUNT 7.2 10^3/uL (4.0-10.0)
[2018-06-03 05:48] LABS: INR 2.37; PROTHROMBIN TIME 26.4 SECONDS (12.1-14.4)
[2018-06-03 06:03] LABS: CALCIUM LEVEL 8.7 MG/DL (8.8-10.2); CREATININE FOR GFR 1.82 MG/DL (0.70-1.30); GLOMERULAR FILTRATION RATE 39.1 (>42); MAGNESIUM LEVEL 2.1 MG/DL (1.8-2.4); POTASSIUM SERUM 4.1 MEQ/L (3.5-5.1)
[2018-06-03] MEDS: HumaLOG INSULIN (NovoLOG) PER UNIT SC SCH ×3 (07:09→17:30)
[2018-06-03 08:00] VITALS: BP 126/60
[2018-06-03] MEDS: IPRATROPIUM 0.5MG/ALBUTEROL 2.5MG INH SOL UD 3ML (DUONEB)(J7620) NEB SCH ×3 (08:00→15:05)
[2018-06-03] MEDS: ASPIRIN 81 MG ENTERIC TAB PO SCH (08:44)
[2018-06-03] MEDS: PANTOPRAZOLE 40MG TAB (PROTONIX) PO SCH (08:44)
[2018-06-03] MEDS: METOPROLOL TART 50 MG TAB PO SCH ×2 (08:44→17:55)
[2018-06-03] MEDS: amLODIPine 5 MG TAB PO SCH (08:44)
[2018-06-03] MEDS: TORSEMIDE 10 MG TABLET PO SCH (08:45)
[2018-06-03 11:30] VITALS: BP 133/65
--- NOTE | 2018-06-03 12:33 | REP ---
PA and lateral chest: Comparison is 05/31/2018. There is a right pleural effusion with a portion of the effusion loculated along the inferolateral right chest wall, unchanged. There is atelectasis in the right lower lobe. There is a density in the left lower lobe, nonspecific, atelectasis, infiltrate, mass. There is a left pleural effusion. By CT there are small nodular densities throughout the lung sahu. These are better appreciated by CT and plain films. There are sternotomy wires and cardiac valve replacement. These are unchanged. Impression: Right pleural effusion, partially loculated. Left pleural effusion. Bibasilar densities. Nodular densities noted on CT are better appreciated by CT and plain films. Electronically Signed by Loki Rivera MD 06/01/2018 09:50 A
[2018-06-03] MEDS ORDERED: INSUHUMDS SC (15:34)
[2018-06-03] MEDS ORDERED: AMLO5TAB6 PO (15:34)
[2018-06-03] MEDS ORDERED: PANT40TA3 PO (15:34)
[2018-06-03] MEDS ORDERED: TORS10TA3 PO (15:34)
--- NOTE | 2018-06-03 16:04 | DS.PDOC ---
Discharge Summary General Date of Admission May 30, 2018 at 09:44 Date of Discharge 06/03/2018 Discharge Summary PROCEDURES PERFORMED DURING STAY: [None]. ADMITTING DIAGNOSES / DISCHARGE DIAGNOSES: Acute on Chronic Diastolic CHF s/p Hyperkalemia Small loculated R pleural effusion Atrial fibrillation Acute on Chronic renal failure Hx of R frontal and L parietal infarction CAD s/p CABG / Aortic stenosis s/p AVR with porcine valve; 02/2018 Hx of Multifocal PNA and MRSA bacteremia DM2 with possible gastroparesis and episodes of hypoglycemia Hoarse voice DVT prophylaxis COMPLICATIONS/CHIEF COMPLAINT: Shortness of breath HISTORY OF PRESENT ILLNESS: Patient is a 73-year-old male with a PMHx of Hx of CVA, Aortic Stenosis s/p AVR, CAD s/p CABG (02/2018), HTN, DM2, CKD3, Recent history of Multifocal PNA w/ MRSA presented to the ER with complaints of shortness of breath occurring over the last 2 weeks. Patient had noted a weight change from 165 to 176 pounds who. Patient was admitted to hospitalist service for suspected heart failure. Nephrology was called on consultation. HOSPITAL COURSE: Acute on Chronic Diastolic CHF - Clinically improved - Appears euvolemic; no signs of fluid overload - ECHO 04/2018: G2DD, Preserved EF, - c/w Torsemide - Nephrology on consultation s/p Hyperkalemia Small loculated R pleural effusion - CXR 06/01: Right pleural effusion, partially loculated. Left pleural effusion. Bibasilar densities. Nodular densities noted on CT are better appreciated by CT and plain films. - Patient has been described findings on imaging; expressed understanding and need for follow-up - Remains afebrile, No leukocytosis - Advised to f/u outpatient for follow-up and repeat imaging Atrial fibrillation - c/w rate control with metoprolol - c/w full anticoagulation with Coumadin Acute on Chronic renal failure - Baseline Cr of 1.6 to 1.7; approaching normalization - c/w Diuretics at adjusted dose Hx of R frontal and L parietal infarction - c/w ASA, Fenofibrate and anticoagulation for A. fib CAD s/p CABG / Aortic stenosis s/p AVR with porcine valve; 02/2018 - INR therapeutic - c/w ASA, - c/w Coumadin Hx of Multifocal PNA and MRSA bacteremia - ROSEANN 04/2018: Negative for vegetations - s/p Vancomycin DM2 with possible gastroparesis and episodes of hypoglycemia - Will c/w Adjusted ISS and Metoclopramide - Will DC Glipizide on discharge Hoarse voice - Patient has noted that he experienced this since his ROSEANN - Breathing without any distress, saturating well - ENT evaluated patient; but patient refused to have lidocaine spray; visualization could not be completed - Will have outpatient f/u with Dr. Zapata DVT prophylaxis - c/w full anticoagulation with Coumadin DISCHARGE MEDICATIONS: Please see below. ALLERGIES: Please see below. PHYSICAL EXAMINATION ON DISCHARGE: Vitals (See below) General: Lying in bed, no acute distress, comfortable, AAOx3 HEENT: NC, AT CVS: RRR, +S1S2 Lungs: Fair air entry b/l, -w/r/r Abdomen: Soft, ND, NT Extremities: - Edema, - Calf tenderness LABORATORY DATA: Please see below. ACTIVITY: [As tolerated]. DISCHARGE PLAN: Follow up with Dr. Melton, Dr. Mckeon and Dr. Zapata within 7 days Remain compliant with treatment plan and medications Return to the ER if you experience any problems Outpatient follow-up repeat imaging of chest DISPOSITION: Home DISCHARGE CONDITION: [Stable]. TIME SPENT ON DISCHARGE: Greater than [35] minutes. Vital Signs/I&Os Vital Signs Date Time Temp Pulse Resp B/P (MAP) Pulse Ox O2 Delivery O2 Flow Rate FiO2 06/03/18 11:30 97.8 66 18 133/65 (87) 97 05/30/18 12:45 Room Air I&O- Last 24 Hours up to 6 AM 06/03/18 06:00 Intake Total 1210 ml Output Total 1525 ml Balance -315 ml Laboratory Data Labs 24H Laboratory Tests 2 06/02/18 17:09: Bedside Glucose (Misc Panel) 236H 06/02/18 17:42: Anion Gap 8, Glomerular Filtration Rate 35.7L, Blood Urea Nitrogen 52H, Creatinine 1.97H, Sodium Level 137, Potassium Level 4.3, Chloride Level 105, Carbon Dioxide Level 24, Calcium Level 8.2L, Magnesium Level 2.1 06/02/18 21:02: Bedside Glucose (Misc Panel) 213H 06/03/18 05:17: Anion Gap 7L, Glomerular Filtration Rate 39.1L, Blood Urea Nitrogen 49H, Creatinine 1.82H, Sodium Level 137, Potassium Level 4.1, Chloride Level 105, Carbon Dioxide Level 25, Calcium Level 8.7L, Magnesium Level 2.1, Immature Granulocyte % (Auto) 0.7, White Blood Count 7.2, Red Blood Count 2.71L, Hemoglobin 8.7L, Hematocrit 26.9L, Mean Corpuscular Volume 99.3H, Mean C orpuscular Hemoglobin 32.1, Mean Corpuscular Hemoglobin Concent 32.3, Red Cell Distribution Width 17.1H, Platelet Count 154, Neutrophils (%) (Auto) 64.4, Lymphocytes (%) (Auto) 18.4L, Monocytes (%) (Auto) 11.6H, Eosinophils (%) (Auto) 4.2H, Basophils (%) (Auto) 0.7, Neutrophils # (Auto) 4.6, Lymphocytes # (Auto) 1.3L, Monocytes # (Auto) 0.8, Eosinophils # (Auto) 0.3, Basophils # (Auto) 0.1, Nucleated Red Blood Cells % (auto) 0.0, Prothrombin Time 26.4H, Prothromb Time International Ratio 2.37 06/03/18 11:54: Bedside Glucose (Misc Panel) 255H 06/03/18 15:25: Bedside Glucose (Misc Panel) 206H CBC/BMP Laboratory Tests 06/02/18 17:42 Calcium Level 8.2 L 06/03/18 05:17 Calcium Level 8.7 L, Red Blood Count 2.71 L, Mean Corpuscular Volume 99.3 H, Mean Corpuscular Hemoglobin 32.1, Mean Corpuscular Hemoglobin Concent 32.3, Red Cell Distribution Width 17.1 H, Neutrophils (%) (Auto) 64.4, Lymphocytes (%) (Auto) 18.4 L, Monocytes (%) (Auto) 11.6 H, Eosinophils (%) (Auto) 4.2 H, Basophils (%) (Auto) 0.7, Neutrophils # (Auto) 4.6, Lymphocytes # (Auto) 1.3 L, Monocytes # (Auto) 0.8, Eosinophils # (Auto) 0.3, Basophils # (Auto) 0.1 FSBS Laboratory Tests Test 06/02/18 17:09 06/02/18 21:02 06/03/18 11:54 06/03/18 15:25 Range/Units Bedside Glucose (Misc Panel) 236 213 255 206 83-110 MG/DL Microbiology Microbiology 05/30/18 Stool Occult Blood (MANDIE) - Final, Complete 05/30/18 MRSA Screen - Final, Complete 05/30/18 Respiratory Virus Panel (PCR) (MANDIE) - Final, Complete Discharge Medications Scheduled Amlodipine Besylate (Amlodipine Besylate) 5 Mg Tab, 5 MG PO BID Aspirin (Aspirin EC) 81 Mg Tabec, 81 MG PO DAILY, (Reported) Cholecalciferol (Vitamin D3) 1,000 Unit Tab, 1,000 UNIT PO DAILY, (Reported) Citalopram Hydrobromide (Citalopram Hydrobromide) 20 Mg Tab, 10 MG PO QHS, (Rep orted) Ferrous Gluconate (Ferrous Gluconate) 324 Mg Tab, 324 MG PO BID, (Reported) Insulin Human Lispro (Humalog) 1 Units/0.01 Ml Inj, 0 UNITS SC AC as per hospital adjusted sliding scale Metoprolol Tartrate (Metoprolol Tartrate) 50 Mg Tab, 50 MG PO TID, (Reported) Pantoprazole Sodium (Pantoprazole Sodium) 40 Mg Tab, 40 MG PO DAILY Polyethylene Glycol (Miralax) 1 Pow Pow, 17 GRAM PO QHS for constipation, (Reported) dissolve in water Potassium (Potassium) 99 Mg Tab, 99 MG PO DAILY, (Reported) Torsemide (Torsemide) 10 Mg Tab, 10 MG PO DAILY Warfarin Sod (Warfarin Sodium) 4 Mg Tab, 4 MG PO QPM, (Reported) Scheduled PRN Acetaminophen (Acetaminophen) 325 Mg Tab, 650 MG PO Q4H PRN for PAIN, (Reported) Loratadine (Loratadine) 10 Mg Tab, 10 MG PO DAILY PRN for ALLERGIES, (Reported) Allergies Coded Allergies: [place] (Verified Allergy, Severe, ANAPHYLAXIS, 11/09/14) Penicillins (Verified Allergy, Severe, ANAPHYLAXIS, 08/04/14) Metformin (Verified Allergy, Unknown, 05/30/18) TONGUE SWELLING Statins (Verified Allergy, Unknown, 05/30/18) AMS Duloxetine (Unverified Adverse Reaction, Mild, N/V, 04/16/18) RYLAND NEAL MD Jun 03, 2018 16:04
[2018-06-03] MEDS ORDERED: HumaLOG INSULIN (NovoLOG) PER UNIT SC SCH ×2 (17:30→21:00)
[2018-06-03 17:55] VITALS: BP 140/70
[2018-06-03] MEDS: WARFARIN SOD 4 MG TAB PO SCH (17:55)
--- NOTE | 2018-06-04 05:48 | IPN ---
DATE OF VISIT: 06/03/2018 SUBJECTIVE: The patient was seen and examined at the bed side this morning. He is afebrile and hemodynamically stable. He denies any active complaints. He was started on torsemide 10 mg by mouth daily. His renal function is stable. Creatinine is at 1.3 today. OBJECTIVE: VITAL SIGNS: Temperature 97.8 degrees Fahrenheit, blood pressure 133/65, pulse is 66, respiratory rate of 18, saturating 97% on room air. INTAKE AND OUTPUT: Urine output recorded as 1.6 liters yesterday, it is 1.2 liters so far today since over night. Weight in the bed scale is 74.4 kg. PHYSICAL EXAMINATION: GENERAL: The patient is awake, alert and oriented times three, laying in bed in no apparent distress. HEENT/NECK: Extraocular muscles intact. Pupils are equally round and reactive to light. Mucous membranes are moist. Neck is supple. There is no jugular venous distention (JVD). CARDIOVASCULAR: S1, S2. No murmurs, rubs or gallops. Midline sternotomy scar is visible. No edema of the bilateral lower extremities. RESPIRATORY: The chest is clear to auscultation bilaterally. Bilateral equal air entry, no rales or rhonchi. ABDOMEN: SOFT positive bowel sounds. Nontender, no organomegaly. MUSCULOSKELETAL: No clubbing or cyanosis. Pulses are 2+. CENTRAL NERVOUS SYSTEM (HAND CARVER): Pulses are 2+. No focal deficits. Power is 5/5 in all extremities. LABORATORY REVIEW: CBC showed WBC 7.2, hemoglobin 8.7, platelets are 154. Basic metabolic panel (BMP) showed sodium 137, potassium 4.1, chloride 105, bicarbonate 25, BUN 49, creatinine 1.8, magnesium is 2.1. CURRENT INPATIENT MEDICATIONS: The patient's medications were all reviewed by me. There is no change in the medications today as compared with yesterday. - He was started on torsemide 10 mg by mouth daily. ASSESSMENT AND PLAN: 1. Chronic diastolic congestive heart failure. The patient's volume status is opitmized, continue current dose of torsemide 10 mg daily. He needs to followup with nephrology as an outpatient. 2. Chronic kidney disease stage III. The patient's renal function is stable. Creatinine has been stable at 1.8 with a low dose of diuretic. 3. Hypertension with chronic kidney disease and hypertensive heart disease. Continue current dose of amlodipine and metoprolol. Avoid use of margaret inhibitors at this point. DISPOSITION: It is okay to discharge the patient from the nephrology standpoint. He will followup with nephrology as an outpatient.
== END 2018-06-03 18:15 | disposition home health service (06) | DRG 291 ==
LOC: M ED 08:08 → M ED INP 09:44 → M PCU 13:04
PROVIDERS: ADMIT General Practice; ATTEND Internal Medicine
DX: I13.0 Hypertensive heart and chronic kidney disease with heart failure and stage 1 through stage 4 chronic kidney disease, or unspecified chronic kidney disease (principal); I50.33 Acute on chronic diastolic (congestive) heart failure; J90 Pleural effusion, not elsewhere classified; N17.9 Acute kidney failure, unspecified; E11.22 Type 2 diabetes mellitus with diabetic chronic kidney disease; N18.3 Chronic kidney disease, stage 3 (moderate); E87.5 Hyperkalemia; I48.91 Unspecified atrial fibrillation; Z86.73 Personal history of transient ischemic attack (TIA), and cerebral infarction without residual deficits; I25.10 Atherosclerotic heart disease of native coronary artery without angina pectoris; E11.43 Type 2 diabetes mellitus with diabetic autonomic (poly)neuropathy; I35.0 Nonrheumatic aortic (valve) stenosis; Z95.2 Presence of prosthetic heart valve; E11.649 Type 2 diabetes mellitus with hypoglycemia without coma; R49.0 Dysphonia; Z79.82 Long term (current) use of aspirin; Z79.899 Other long term (current) drug therapy; Z88.0 Allergy status to penicillin; Z88.8 Allergy status to other drugs, medicaments and biological substances; Z91.018 Allergy to other foods; D63.1 Anemia in chronic kidney disease; Z79.01 Long term (current) use of 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s

== ENCOUNTER 2018-06-12 13:40 | Inpatient (IN) | payer MEDICARE ==
[~2018-06-12] VITALS: Ht 177.8 cm; Wt 80.1 kg
[~2018-06-12 13:40] MED LIST changes: +ACET1TAB55 PO; +AMLO5TAB6 PO; +LORA10TA3 PO; +METO50TA7 PO; +POTA99TA PO; +VITA-122 PO
[2018-06-12] MEDS ORDERED: FURO20TA2 (13:50)
[2018-06-12] MEDS ORDERED: GLIP10TA6 (13:50)
[2018-06-12 14:29] LABS: VENOUS BASE EXCESS 0.5 (-2.0-2.0); VENOUS HCO3 24.4 MEQ/L (23.0-27.0); VENOUS O2 SATURATION 58.8 % (60.0-80.0); VENOUS PARTIAL PRESSURE CO2 36.3 mmHg (38.0-50.0); VENOUS PARTIAL PRESSURE O2 32.2 mmHg (30.0-50.0); VENOUS PH 7.446 UNITS (7.330-7.430); VENOUS STANDARD HCO3 24.3 MEQ/L; VENOUS TOTAL CO2 25.6 MEQ/L (24.0-28.0)
[2018-06-12 14:32] LABS: BASO # 0.1 10^3/uL (0.0-0.2); BASO % 0.3 % (0.0-1.0); EOS # 0.4 10^3/uL (0.0-0.50); EOS % 2.5 % (0.0-3.0); HEMOGLOBIN 8.3 g/dl (13.5-17.5); LYMPH # 1.4 10^3/uL (1.5-4.5); LYMPH % 9.1 % (24.0-44.0); MEAN CORPUSCULAR HEMOGLOBIN 32.8 pg (27.0-33.0); MEAN CORPUSCULAR HGB CONC 33.2 g/dl (32.0-36.5); MEAN CORPUSCULAR VOLUME 98.8 fl (80.0-96.0); MONO # 1.1 10^3/uL (0.0-0.8); MONO % 7.2 % (0.0-5.0); NEUTROPHILS # 12.1 10^3/uL (1.8-7.7); NEUTROPHILS % 80.4 % (36.0-66.0); PLATELET COUNT, AUTOMATED 169 10^3/uL (150-450); RED BLOOD COUNT 2.53 10^6/uL (4.30-6.10)
--- NOTE | 2018-06-12 14:37 | REP ---
Portable chest x-ray: Single view. History: Dyspnea and cough. Comparison chest x-ray: June 01, 2018. Findings: There is pleural thickening along the left lower lateral chest wall which is essentially unchanged. There are however is a new infiltrate pattern in the right base. Some increased markings persist at the left base. Prior sternotomy wires are noted. Heart is not enlarged. Impression: New infiltrate pattern right base consistent with pneumonia. Pleural thickening changes on the left status quo. Electronically Signed by Jesus Moser MD 06/12/2018 02:29 P
[2018-06-12 15:08] LABS: ALBUMIN 2.7 GM/DL (3.2-5.2); ALT/SGPT 18 U/L (12-78); BILIRUBIN,DIRECT 0.2 MG/DL (0.0-0.2); BILIRUBIN,TOTAL 0.5 MG/DL (0.2-1.0); BLOOD UREA NITROGEN 64 MG/DL (7-18); CALCIUM LEVEL 8.3 MG/DL (8.8-10.2); CARBON DIOXIDE LEVEL 26 MEQ/L (21-32); CHLORIDE LEVEL 102 MEQ/L (98-107); CPK CREATINE PHOSPHOKINASE 50 U/L (39-308); CREATININE FOR GFR 2.08 MG/DL (0.70-1.30); GLOMERULAR FILTRATION RATE 33.5 (>42); GLUCOSE, FASTING 163 MG/DL (70-100); INR 1.56; NT-PRO BNP 2972 PG/ML (<125); POTASSIUM SERUM 4.3 MEQ/L (3.5-5.1); PROTHROMBIN TIME 18.9 SECONDS (12.1-14.4); SODIUM LEVEL 137 MEQ/L (136-145); TOTAL PROTEIN 8.2 GM/DL (6.4-8.2); TROPONIN I < 0.02 NG/ML (< 0.10)
--- NOTE | 2018-06-12 15:26 | REP ---
CT CHEST WITHOUT CONTRAST: HISTORY: Short of breath. Comparison chest x-ray from June 12, 2018. COMPARISON CT STUDY: May 30, 2018. CT FINDINGS: There are small bilateral pleural effusions again noted. The right pleural effusion is a little smaller than it was on May 30, 2018. There is some irregularity to the pleural margin bilaterally at the level of the pleural effusions which may reflect visceral pleural thickening. There are patchy areas of fairly extensive pulmonary parenchymal consolidation in the lower lobes bilaterally and in the right middle lobe. The right middle lobe disease is more extensive. The right lower lobe disease is more extensive consistent with new areas of pneumonia. The left lower lobe parenchymal consolidation is a little less prominent. There are small nodular densities in the right upper lobe which are improved compared with the May 30, 2018 study. The patient appears to be status post aortic valve replacement. Median sternotomy. There are scattered small mediastinal lymph nodes unchanged. A right subcarinal lymph node is seen unchanged from most recent prior study. There is no evidence of upper abdominal ascites. IMPRESSION: Extensive right lower lobe and right middle lobe infiltrates more prominent than on the most recent prior study May 30, 2018. Left lower lobe consolidation is a little less prominent. There are small bilateral pleural effusions. The right pleural effusion is somewhat improved from the May 30, 2018 study. Electronically Signed by Jesus Moser MD 06/12/2018 04:52 P
[2018-06-12] MEDS ORDERED: VANCOMYCIN HCL 1,000 MG, VIAL MATE ADAPTER 1 EACH in D5W 250 ML IV ONE (17:00)
[2018-06-12] MEDS ORDERED: AZTREONAM 1 GM in D5W MINI-BAG PLUS 50 ML IV ONE (17:30)
[2018-06-12] MEDS ORDERED: GLUCOSE 4 GM CHEW TABLET PO PRN (19:15)
[2018-06-12] MEDS ORDERED: ACETAMINOPHEN TAB 650MG DOSE (2X325MG) PO PRN (19:15)
[2018-06-12] MEDS ORDERED: DEXTROSE 50% 50 ML SYRINGE IV PRN (19:15)
[2018-06-12] MEDS ORDERED: GLUCAGON FOR INJ 1 MG VIAL (J1610) SC PRN (19:15)
[2018-06-12] MEDS ORDERED: TORS20TA2 PO (19:55)
[2018-06-12] MEDS ORDERED: OMEP20CA3 PO (19:55)
[2018-06-12] MEDS ORDERED: GLIP10TA6 PO (19:55)
[2018-06-12] MEDS ORDERED: TYLE500T78 PO (19:55)
[2018-06-12] MEDS ORDERED: MIRA33504 PO (19:55)
[2018-06-12] MEDS ORDERED: OMEPRAZOLE 20 MG CAP PO PRN (20:00)
[2018-06-12] MEDS ORDERED: IPRATROPIUM 0.5MG/ALBUTEROL 2.5MG INH SOL UD 3ML (DUONEB)(J7620) NEB PRN (20:30)
[2018-06-12] MEDS: HumaLOG INSULIN (NovoLOG) PER UNIT SC SCH (21:00)
--- NOTE | 2018-06-12 21:13 | HPE ---
DATE OF ADMISSION: 06/12/2018 CHIEF COMPLAINT: Fatigue, wet cough, overall weakness for the last several days. HISTORY OF PRESENT ILLNESS: This is a 73-year-old gentleman with a complicated medical history including coronary artery bypass graft (CABG) in February 2018 at [facility], aortic valve replacement secondary to aortic stenosis with a porcine valve, atrial fibrillation on Coumadin, diabetes, chronic kidney disease (CKD) stage III, coronary artery disease (CAD), postoperative complications of his CABG including prolonged intubation and trach as well as multifocal pneumonia and methicillin-resistant Staphylococcus aureus (MRSA) pneumonia who presents status post recent discharge on 06/03/2018 with several day history of weakness and wet cough. Please refer to discharge summary dictated on 06/03/2018 for hospital course during that admission. At that time, he was treated for acute on chronic diastolic heart failure as well as a small loculated right pleural effusion. He had a ROSEANN done in April 2018 as well for further evaluation of a multifocal pneumonia and MRSA bacteremia that was negative for vegetations. Patient and report that he has been hoarse and lost his voice since the ROSEANN. He reports for the last several days he has had increased weakness and his visiting nurse has noticed his profound malaise and weakness as well. He has also had a wet cough. He denies any fevers. No recent sick contacts. REVIEW OF SYSTEMS: Negative 14 out of 14 systems except as noted above. PAST MEDICAL HISTORY: As noted above in history of present illness (HPI). PAST SURGICAL HISTORY: He had the CABG in February 2018 at [facility], he had the aortic valve replacement, he has had multiple skin surgeries for squamous cell. MEDICATIONS: Patient's home medications are: - aspirin 81 mg by mouth daily - vitamin D3 2000 units daily - citalopram 10 mg at bedtime - metoprolol 50 mg three times a day - Prilosec 20 mg daily as needed for reflux - MiraLAX one packet at bedtime - torsemide 20 mg daily - Coumadin 4 mg at bedtime - glipizide 20 mg twice a day - Tylenol as needed ALLERGIES: He is allergic to METFORMIN, DULOXETINE, PENICILLIN, STATINS, and cucumber. SOCIAL HISTORY: Patient lives with his and walks with a walker. He is receiving home care currently. No smoking, alcohol, or drugs. FAMILY HISTORY: His father had a history of two heart attacks. His mother did have a history of diabetes. PHYSICAL EXAMINATION: On exam in the emergency room, patient is afebrile to 97.1, blood pressure 124/65, heart rate 66, respirations 18, saturating 97% on room air. GENERAL: He is pleasant and in no acute distress, breathing comfortably. HEENT EXAM: Oropharynx clear. CARDIOVASCULAR: Regular rate and rhythm. No murmurs, rubs, or gallops. He has a thoracotomy incision, it is well healed. LUNG EXAM: He has bilateral basilar crackles, no wheezes. ABDOMEN: Soft, nontender, nondistended, positive bowel sounds. EXTREMITIES: No clubbing, cyanosis, edema. NEUROLOGIC: He is alert and oriented times three, follows simple commands, no focal neurologic deficits. MUSCULOSKELETAL: Moves all extremities equally. SKIN: Intact. PSYCHIATRIC: Mood stable. LABORATORY DATA: He has a leukocytosis with a white count of 15, hemoglobin 8.3, hematocrit 25, platelets of 169. Chemistry reveals a creatinine of 2.08, which is at his baseline, potassium of 4.3. Troponin is negative, BNP is elevated at 2900, INR is 1.56. Blood cultures are pending. IMAGING: Patient had a chest CT done by the emergency room (ER) which shows extensive right lower lobe and right middle lobe infiltrates, more prominent than on the most recent prior study on 05/30/2018. The left lower lobe consolidation is less prominent. There are small bilateral pleural effusions. The right pleural effusion is somewhat improved compared to the prior study. Patient also had a chest x-ray done that shows new infiltrate pattern in the right base consistent with pneumonia. ASSESSMENT AND PLAN: This is a 73-year-old gentleman with a complicated past medical history including a coronary artery bypass graft (CABG) in February 2018 at [facility] complicated by respiratory failure and previous intubation/trach, history of aortic valve replacement, history of atrial fibrillation on Coumadin, recent history of methicillin-resistant Staphylococcus aureus (MRSA) bacteremia, multifocal pneumonia, now readmitted to the hospital with worsening right-sided pneumonia. 1. Healthcare-acquired pneumonia. Patient does have a worsening right-sided pneumonia with a CT scan that shows worsening infiltrate and a leukocytosis. He is not septic at this time and his vital signs are stable. Given that he has hospital exposure and a history of methicillin-resistant Staphylococcus aureus (MRSA), we will give him vancomycin and aztreonam given the penicillin allergy. Primary team can consider consulting infectious disease tomorrow. I have placed an order for sputum culture and gram stain. He has a respiratory panel pending. He has blood cultures pending. Flu A and B were sent and are also pending. We will continue to encourage ambulation and out of bed. We will place him on nebulizers as needed. Oxygen supplementation as needed. 2. History of atrial fibrillation on Coumadin. His INR is slightly subtherapeutic. We will continue his home regimen for now. We will check INRs daily. 3. History of diabetes. I have placed him on insulin sliding scale and am holding his home oral hypoglycemics. 4. History of coronary artery disease and coronary artery bypass graft (CABG). I am continuing his home aspirin, beta christian. He is also on torsemide daily which I will continue. 5. Disposition planning. Patient needs aggressive physical therapy and occupational therapy to prevent deconditioning while in the hospital. I will place a social work consult to facilitate discharge planning. 6. Deep venous thrombosis (DVT) prophylaxis. Patient is on Coumadin.
[2018-06-12] MEDS: MIRALAX *UNIT DOSE* 17GM PACKET PO SCH (22:36)
[2018-06-12] MEDS: CitaloPRAM (CeleXA) 10 MG TABLET PO SCH (22:37)
[2018-06-12] MEDS: METOPROLOL TART 50 MG TAB PO SCH (22:37)
[2018-06-12] MEDS: WARFARIN SOD 4 MG TAB PO SCH (22:37)
[2018-06-13] MEDS: AZTREONAM 1 GM in D5W MINI-BAG PLUS 50 ML IV SCH ×3 (02:00→18:01)
--- NOTE | 2018-06-13 07:04 | ECGEPIP ---
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
[2018-06-13 07:06] LABS: HEMATOCRIT 23.5 % (42.0-52.0); HEMOGLOBIN 7.9 g/dl (13.5-17.5); MEAN CORPUSCULAR HEMOGLOBIN 33.1 pg (27.0-33.0); MEAN CORPUSCULAR HGB CONC 33.6 g/dl (32.0-36.5); MEAN CORPUSCULAR VOLUME 98.3 fl (80.0-96.0); PLATELET COUNT, AUTOMATED 150 10^3/uL (150-450); RED BLOOD COUNT 2.39 10^6/uL (4.30-6.10); WHITE BLOOD COUNT 10.1 10^3/uL (4.0-10.0)
[2018-06-13 07:14] LABS: INR 1.66; PROTHROMBIN TIME 19.9 SECONDS (12.1-14.4)
[2018-06-13 07:28] LABS: CALCIUM LEVEL 8.5 MG/DL (8.8-10.2); CREATININE FOR GFR 1.94 MG/DL (0.70-1.30); GLOMERULAR FILTRATION RATE 36.3 (>42)
[2018-06-13] MEDS: HumaLOG INSULIN (NovoLOG) PER UNIT SC SCH ×4 (07:30→20:13)
[2018-06-13 08:43] VITALS: BP 142/69
[2018-06-13] MEDS: VITAMIN D 1,000 INTERNATIONAL UNITS TABLET PO SCH (09:14)
[2018-06-13] MEDS: TORSEMIDE 20 MG TAB PO SCH (09:14)
[2018-06-13] MEDS: ASPIRIN 81 MG ENTERIC TAB PO SCH (09:14)
[2018-06-13] MEDS: METOPROLOL TART 50 MG TAB PO SCH ×3 (09:15→20:47)
[2018-06-13 12:00] VITALS: BP 131/60
--- NOTE | 2018-06-13 15:28 | IPNPDOC ---
Subjective Date Seen The patient was seen on 06/13/18. Subjective Chief Complaint/HPI Patient seen and examined at the bedside. Reports that his respiratory status is improved today. Denies any acute overnight events. Objective Physical Examination General Exam: Positive: Alert, Cooperative, No Acute Distress ENT Exam: Positive: Atraumatic, Mucous membr. moist/pink Neck Exam: Negative: JVD Chest Exam: Positive: Diminished Heart Exam: Positive: Rate Normal, Normal S1, Normal S2 Abdomen Exam: Positive: Soft; Negative: Tenderness Extremity Exam: Negative: Tenderness, Swelling Psych Exam: Positive: Oriented x 3 Assessment /Plan Plan/VTE VTE Prophylaxis Ordered?: Yes Plan Healthcare-acquired pneumonia, possible MRSA Pneumonia CT scan of Chest notable for RML and RLL infiltrate Hx of MRSA--screening ordered Cont Vancomycin and Aztreonam Sputum culture and gram stain pending Patient reports improvement of symptoms today We will cont to monitor respiratory status PT ordered for functional optimization History of atrial fibrillation on Coumadin Rate Controlled on Metoprolol We will cont to adjust Coumadin dosing based on INR History of diabetes ISS ordered History of coronary artery disease and coronary artery bypass graft (CABG), AVR Cont Aspirin, Metoprolol Chronic Diastolic CHF Cont Torsemide as ordered GERD Cont PPI Anxiety/Depression Cont Celexa Deep venous thrombosis (DVT) prophylaxis On Coumadin. Disposition--pending clinical improvement, PT on board for functional optimization. VS, I&O, 24H, Jose Manuelbone Vital Signs/I&O Vital Signs Date Time Temp Pulse Resp B/P (MAP) Pulse Ox O2 Delivery O2 Flow Rate FiO2 06/13/18 12:00 97.9 65 18 131/60 (83) 98 06/13/18 07:41 Room Air I&O- Last 24 Hours up to 6 AM 06/13/18 06:00 Intake Total 550 ml Balance 550 ml Laboratory Data 24H LABS Laboratory Tests 2 06/12/18 19:47: Bedside Glucose (Misc Panel) 107 06/13/18 06:55: Nucleated Red Blood Cells % (auto) 0.0, Prothrombin Time 19.9H, Prothromb Time International Ratio 1.66, Anion Gap 11, Glomerular Filtration Rate 36.3L, Blood Urea Nitrogen 61H, Creatinine 1.94H, Sodium Level 139, Potassium Level 4.0, Chloride Level 105, Carbon Dioxide Level 23, Calcium Level 8.5L 3/8/19 12:15: Bedside Glucose (Misc Panel) 219H CBC/BMP Laboratory Tests 06/13/18 06:55 Red Blood Count 2.39 L, Mean Corpuscular Volume 98.3 H, Mean Corpuscular Hemoglobin 33.1 H, Mean Corpuscular Hemoglobin Concent 33.6, Red Cell Distribution Width 16.6 H, Calcium Level 8.5 L Microbiology Microbiology 06/12/18 Blood Culture, Received Pending 06/12/18 Blood Culture - Preliminary, Resulted No growth after 24 hours . All specim... MARILYNN DUKES MD Jun 13, 2018 15:27
[2018-06-13 16:00] VITALS: BP 132/70
[2018-06-13] MEDS: VANCOMYCIN HCL 1,000 MG, VIAL MATE ADAPTER 1 EACH in D5W 250 ML IV SCH (16:50)
[2018-06-13] MEDS ORDERED: WARFARIN SOD 2 MG TAB PO ONE (17:00)
[2018-06-13 20:00] VITALS: BP 125/59
--- NOTE | 2018-06-13 20:01 | PHACANCOPD ---
PHARMACY VANCOMYCIN DOSING Pt Demographics Demographics Patient Age:73 , Weight:77.800 , Gender: male Adjusted Body Weight Date: 06/13/18, Adjusted Body Weight: [NA] Kg Events Past 24 Hours Events Past 24 Hours: YES: Elevation in WBC; NO: Dialysis, Diuretic Therapy, Change in CrCl, Fever, Pending Diagnostics, Pending Procedures, Other Vancomycin Vancomycin indication: hcap Vancomycin Target Ranges: 15-20 mcg/ml Vancomycin Load Y/N: No Load Dose Date Time Vancomycin Load Dose: Date: Time: Vancomycin Dose Date: 06/12/18. Current Vancomycin Dose: [1g IV q24h @17] Intermittent Dosing?: No Labs Labs Item Value Date Time White Blood Count 15.0 10^3/uL H 06/12/18 1409 Creatinine 2.08 MG/DL H 06/12/18 1409 White Blood Count 10.1 10^3/uL H 06/13/18 0655 Creatinine 1.94 MG/DL H 06/13/18 0655 Micro Microbiology 06/12/18 Blood Culture - Preliminary, Resulted No growth after 24 hours . All specim... 06/12/18 Blood Culture - Preliminary, Resulted No growth after 24 hours . All specim... Creatinine Clearance Date:06/13/18. Creatinine Clearance: [~33 ml/min]. Pending Labs Vanco trough scheduled 06/14 @16:00 Assessment and Plan Maintaining Current Dose?: Yes Reason for dose change: No Dose Change Pharmacist Note Pharmacist Note Date: 06/13/18. Pharmacist note: pt was started on Vancomycin and Aztreonam yesterday for health-care associated pneumonia after being discharged from our facility on 06/03. Pt has been on vancomycin at our facility in the past and he has also had a positive blood culture for MRSA in April of this year. SCr is about at his baseline. Based on prior consults, I have started him on vancomycin 1g IV q24h. I have a trough scheduled tomorrow afternoon before the 3rd dose. We will continue to monitor and make adjustments as necessary. Rashard Mahajan Pharm.D. Jun 13, 2018 20:01
[2018-06-13] MEDS: WARFARIN SOD 4 MG TAB PO SCH (20:46)
[2018-06-13] MEDS: MIRALAX *UNIT DOSE* 17GM PACKET PO SCH (20:47)
[2018-06-13] MEDS: CitaloPRAM (CeleXA) 10 MG TABLET PO SCH (20:47)
[2018-06-13 23:59] VITALS: BP 133/63
[2018-06-14] MEDS: AZTREONAM 1 GM in D5W MINI-BAG PLUS 50 ML IV SCH ×3 (01:35→18:56)
[2018-06-14 04:00] VITALS: BP 122/65
[2018-06-14 04:39] LABS: HEMOGLOBIN 7.8 g/dl (13.5-17.5); MEAN CORPUSCULAR HEMOGLOBIN 32.4 pg (27.0-33.0); MEAN CORPUSCULAR HGB CONC 32.5 g/dl (32.0-36.5); MEAN CORPUSCULAR VOLUME 99.6 fl (80.0-96.0); PLATELET COUNT, AUTOMATED 160 10^3/uL (150-450); RED BLOOD COUNT 2.41 10^6/uL (4.30-6.10); WHITE BLOOD COUNT 8.8 10^3/uL (4.0-10.0)
[2018-06-14 04:53] LABS: INR 1.9; PROTHROMBIN TIME 22.1 SECONDS (12.1-14.4)
[2018-06-14 05:03] LABS: ALBUMIN 2.3 GM/DL (3.2-5.2); BILIRUBIN,TOTAL 0.6 MG/DL (0.2-1.0); CALCIUM LEVEL 8.1 MG/DL (8.8-10.2); CREATININE FOR GFR 1.95 MG/DL (0.70-1.30); GLOMERULAR FILTRATION RATE 36.1 (>42); POTASSIUM SERUM 4.2 MEQ/L (3.5-5.1)
[2018-06-14 08:00] VITALS: BP 129/67
[2018-06-14] MEDS: ASPIRIN 81 MG ENTERIC TAB PO SCH (08:04)
[2018-06-14] MEDS: VITAMIN D 1,000 INTERNATIONAL UNITS TABLET PO SCH (08:04)
[2018-06-14] MEDS: HumaLOG INSULIN (NovoLOG) PER UNIT SC SCH ×4 (08:04→21:00)
[2018-06-14] MEDS: TORSEMIDE 20 MG TAB PO SCH (08:04)
[2018-06-14] MEDS: METOPROLOL TART 50 MG TAB PO SCH ×3 (08:07→21:06)
[2018-06-14 12:00] VITALS: BP 123/66
--- NOTE | 2018-06-14 15:51 | IPNPDOC ---
Subjective Date Seen The patient was seen on 06/14/18. Subjective Chief Complaint/HPI Patient seen and examined at the bedside. Reports that his respiratory status continues to improve. He states that he was able to work with physical therapy this morning. 1 unit of packed red blood cells ordered for hemoglobin less than 8. No acute bleeding noted. The patient states that he has been followed by nephrology as an outpatient for iron deficiency/AOKD, and was unable to take iron tablets due to constipation/GI discomfort. He is being considered for iron transfusions as an outpatient. Objective Physical Examination General Exam: Positive: Alert, Cooperative, No Acute Distress ENT Exam: Positive: Atraumatic, Mucous membr. moist/pink Neck Exam: Negative: JVD Chest Exam: Positive: Diminished Heart Exam: Positive: Rate Normal, Normal S1, Normal S2 Abdomen Exam: Positive: Soft Extremity Exam: Negative: Tenderness, Swelling Psych Exam: Positive: Oriented x 3 Assessment /Plan Plan/VTE VTE Prophylaxis Ordered?: Yes Plan Healthcare-acquired pneumonia, possible MRSA Pneumonia CT scan of Chest notable for RML and RLL infiltrate Hx of MRSA--screening pending Cont Vancomycin and Aztreonam Sputum culture and gram stain pending Patient reports improvement of symptoms today We will cont to monitor respiratory status PT on board for functional optimization History of atrial fibrillation on Coumadin Rate Controlled on Metoprolol We will cont to adjust Coumadin dosing based on INR Macrocytic Anemia/AOKD 1 unit of packed red blood cells ordered for hemoglobin less than 8. No acute bleeding noted. Stool Occult from previous admission in May negative, repeat ordered. The patient states that he has been followed by nephrology as an outpatient for iron deficiency/AOKD, and was unable to take iron tablets due to constipation/GI discomfort. He is being considered for iron transfusions as an outpatient. We will monitor H&H History of diabetes ISS ordered History of coronary artery disease and coronary artery bypass graft (CABG), AVR Cont Aspirin, Metoprolol Chronic Diastolic CHF Cont Torsemide as ordered GERD Cont PPI Anxiety/Depression Cont Celexa Deep venous thrombosis (DVT) prophylaxis On Coumadin. Disposition--pending clinical improvement, PT on board for functional optimization. VS, I&O, 24H, Fishbone Vital Signs/I&O Vital Signs Date Time Temp Pulse Resp B/P (MAP) Pulse Ox O2 Delivery O2 Flow Rate FiO2 06/14/18 12:00 97.6 66 20 123/66 (85) 97 3/8/19 07:41 Room Air I&O- Last 24 Hours up to 6 AM 06/14/18 06:00 Intake Total 1490 ml Output Total 1200 ml Balance 290 ml Laboratory Data 24H LABS Laboratory Tests 2 06/13/18 16:47: Bedside Glucose (Misc Panel) 90 06/13/18 20:11: Bedside Glucose (Misc Panel) 210H 06/14/18 04:16: Nucleated Red Blood Cells % (auto) 0.0, Prothrombin Time 22.1H, Prothromb Time International Ratio 1.90, Anion Gap 6L, Glomerular Filtration Rate 36.1L, Blood Urea Nitrogen 65H, Creatinine 1.95H, Sodium Level 137, Potassium Level 4.2, Chloride Level 105, Carbon Dioxide Level 26, Calcium Level 8.1L, Aspartate Amino Transf (AST/SGOT) 15, Alanine Aminotransferase (ALT/SGPT) 18, Alkaline Phosphata se 94, Total Bilirubin 0.6, Total Protein 8.0, Albumin 2.3L, Albumin/Globulin Ratio 0.40L 06/14/18 11:38: Bedside Glucose (Misc Panel) 182H CBC/BMP Laboratory Tests 06/14/18 04:16 Red Blood Count 2.41 L, Mean Corpuscular Volume 99.6 H, Mean Corpuscular Hemoglo bin 32.4, Mean Corpuscular Hemoglobin Concent 32.5, Red Cell Distribution Width 15.9 H, Calcium Level 8.1 L, Aspartate Amino Transf (AST/SGOT) 15, Alanine Aminotransferase (ALT/SGPT) 18, Alkaline Phosphatase 94, Total Bilirubin 0.6, Total Protein 8.0, Albumin 2.3 L Microbiology Microbiology 06/12/18 Blood Culture - Preliminary, Resulted No growth after 24 hours . All specim... 06/12/18 Blood Culture - Preliminary, Resulted No Growth after 48 hours. All Specime... MARILYNN DUKES MD Jun 14, 2018 15:51
[2018-06-14 16:00] VITALS: BP 137/79
[2018-06-14] MEDS: VANCOMYCIN HCL 1,000 MG, VIAL MATE ADAPTER 1 EACH in D5W 250 ML IV SCH (17:31)
[2018-06-14 20:00] VITALS: BP 138/76
[2018-06-14 21:03] VITALS: BP 128/64
[2018-06-14] MEDS: WARFARIN SOD 4 MG TAB PO SCH (21:05)
[2018-06-14] MEDS: MIRALAX *UNIT DOSE* 17GM PACKET PO SCH (21:05)
[2018-06-14] MEDS: CitaloPRAM (CeleXA) 10 MG TABLET PO SCH (21:05)
[2018-06-15] VITALS: BP 144/79
[2018-06-15] MEDS: AZTREONAM 1 GM in D5W MINI-BAG PLUS 50 ML IV SCH ×2 (01:52→10:03)
[2018-06-15 04:10] VITALS: BP 130/68
[2018-06-15 04:53] LABS: HEMATOCRIT 26.7 % (42.0-52.0); HEMOGLOBIN 8.5 g/dl (13.5-17.5); MEAN CORPUSCULAR HEMOGLOBIN 31.7 pg (27.0-33.0); MEAN CORPUSCULAR HGB CONC 31.8 g/dl (32.0-36.5); MEAN CORPUSCULAR VOLUME 99.6 fl (80.0-96.0); PLATELET COUNT, AUTOMATED 159 10^3/uL (150-450); RED BLOOD COUNT 2.68 10^6/uL (4.30-6.10); WHITE BLOOD COUNT 8.6 10^3/uL (4.0-10.0)
[2018-06-15 05:04] LABS: INR 1.98; PROTHROMBIN TIME 22.9 SECONDS (12.1-14.4)
[2018-06-15 05:11] LABS: ALBUMIN 2.3 GM/DL (3.2-5.2); BILIRUBIN,TOTAL 0.6 MG/DL (0.2-1.0); CALCIUM LEVEL 8.2 MG/DL (8.8-10.2); CREATININE FOR GFR 1.91 MG/DL (0.70-1.30); POTASSIUM SERUM 4.6 MEQ/L (3.5-5.1); TOTAL PROTEIN 8.1 GM/DL (6.4-8.2)
[2018-06-15 08:00] VITALS: BP 134/63
[2018-06-15 08:15] VITALS: BP 130/68
[2018-06-15] MEDS: VITAMIN D 1,000 INTERNATIONAL UNITS TABLET PO SCH (08:15)
[2018-06-15] MEDS: ASPIRIN 81 MG ENTERIC TAB PO SCH (08:15)
[2018-06-15] MEDS: METOPROLOL TART 50 MG TAB PO SCH (08:15)
[2018-06-15] MEDS: TORSEMIDE 20 MG TAB PO SCH (08:16)
[2018-06-15] MEDS: HumaLOG INSULIN (NovoLOG) PER UNIT SC SCH ×2 (08:16→12:00)
[2018-06-15] MEDS ORDERED: LEVA750T7 PO (11:57)
--- NOTE | 2018-06-15 17:41 | DS.PDOC ---
Discharge Summary General Date of Admission Jun 12, 2018 at 19:06 Date of Discharge 06/15/18 Discharge Summary PROCEDURES PERFORMED DURING STAY: None. ADMITTING/DISCHARGE DIAGNOSES: Healthcare-acquired pneumonia History of atrial fibrillation on Coumadin Macrocytic Anemia/AOKD History of diabetes History of coronary artery disease and coronary artery bypass graft (CABG), AVR Chronic diastolic congestive heart failure COMPLICATIONS/CHIEF COMPLAINT: Pneumonia. HISTORY OF PRESENT ILLNESS: . 73-year-old male with past medical history of coronary artery disease status post CABG, aortic valve replacement secondary to aortic stenosis, atrial fibrillation on Coumadin, diabetes mellitus, chronic kidney disease, and history of MRSA pneumonia presented to the ER with a chief complaint of increased short ness of breath and productive cough. He states that he has also felt generalized fatigue and malaise during this time. He denied any complaints of fevers, chills, chest pain, palpitations, abdominal pain, or any nausea/vomiting/diarrhea. In the ER, the patient was noted to have an elevated white blood cell count. CT chest imaging revealed right middle lobe and right lower lobe infiltrates. The patient was admitted to the hospitalist service for a healthcare associated pneumonia. During hospitalization, the patient was started on empiric antibiotic therapy. The patient's respiratory status significantly improved thereafter. Also of note, the patient was noted to have acute on chronic anemia. There was no overt sources of bleeding noted. Based on previous admission it appears that the kamilla ent's stool occult study from last month was negative for any bleed. The patient does have a history of iron deficiency anemia and has been unable to tolerate by mouth iron supplementation. He is being seen by nephrology as an outpatient for possible iron transfusions in the future. The patient was transfused 1 unit of packed red blood cells and his hemoglobin remained stable. At this time, the nehemiah piedrajay states that he is feeling much better and is eager to return home. He has been transitioned to by mouth Levaquin. He has also cleared physical therapy. I have advised the patient to follow-up with his primary care physician within 7 days. Lastly, the patient has been counseled to return to the ER for any acute emergencies. DISCHARGE MEDICATIONS: Please see below. ALLERGIES: Please see below. PHYSICAL EXAMINATION ON DISCHARGE: VITAL SIGNS: Please see below. General Exam: Positive: Alert, Cooperative, No Acute Distress ENT Exam: Positive: Atraumatic, Mucous membr. moist/pink Neck Exam: Negative: JVD Chest Exam: Positive: Diminished Heart Exam: Positive: Rate Normal, Normal S1, Normal S2 Abdomen Exam: Positive: Soft Extremity Exam: Negative: Tenderness, Swelling Psych Exam: Positive: Oriented x 3 LABORATORY DATA: Please see below. IMAGING: Portable chest x-ray: Single view. History: Dyspnea and cough. Comparison chest x-ray: June 01, 2018. Findings: There is pleural thickening along the left lower lateral chest wall which is essentially unchanged. There are however is a new infiltrate pattern in the right base. Some increased markings persist at the left base. Prior sternotomy wires are noted. Heart is not enlarged. Impression: New infiltrate pattern right base consistent with pneumonia. Pleural thickening changes on the left status quo. CT CHEST WITHOUT CONTRAST: HISTORY: Short of breath. Comparison chest x-ray from June 12, 2018. COMPARISON CT STUDY: May 30, 2018. CT FINDINGS: There are small bilateral pleural effusions again noted. The right pleural effusion is a little smaller than it was on May 30, 2018. There is some irregularity to the pleural margin bilaterally at the level of the pleural effusions which may reflect visceral pleural thickening. There are patchy areas of fairly extensive pulmonary parenchymal consolidation in the lower lobes bilaterally and in the right middle lobe. The right middle lobe disease is more extensive. The right lower lobe disease is more extensive consistent with new areas of pneumonia. The left lower lobe parenchymal consolidation is a little less prominent. There are small nodular densities in the right upper lobe which are improved compared with the May 30, 2018 study. The patient appears to be status post aortic valve replacement. Median sternotomy. There are scattered small mediastinal lymph nodes unchanged. A right subcarinal lymph node is seen unchanged from most recent prior study. There is no evidence of upper abdominal ascites. IMPRESSION: Extensive right lower lobe and right middle lobe infiltrates more prominent than on the most recent prior study May 30, 2018. Left lower lobe consolidation is a little less prominent. There are small bilateral pleural effusions. The right pleural effusion is somewhat improved from the May 30, 2018 study. PROGNOSIS: Fair ACTIVITY: As tolerated. DIET: 2 g low sodium, renal diet DISCHARGE PLAN: Home DISPOSITION: Home Health Service. DISCHARGE INSTRUCTIONS: I have advised the patient to follow-up with his primary care physician within 7 days. Lastly, the patient has been counseled to return to the ER for any acute emergencies. DISCHARGE CONDITION: Stable. TIME SPENT ON DISCHARGE: Greater than 30 minutes. Vital Signs/I&Os Vital Signs Date Time Temp Pulse Resp B/P (MAP) Pulse Ox O2 Delivery O2 Flow Rate FiO2 06/15/18 08:15 66 130/68 06/15/18 08:00 97.4 20 98 06/13/18 07:41 Room Air I&O- Last 24 Hours up to 6 AM 06/15/18 06:00 Intake Total 1010 ml Output Total 1650 ml Balance -640 ml Laboratory Data Labs 24H Laboratory Tests 2 06/14/18 20:04: Bedside Glucose (Misc Panel) 223H 06/15/18 04:25: Nucleated Red Blood Cells % (auto) 0.0, Prothrombin Time 22.9H, Prothromb Time International Ratio 1.98, Anion Gap 6L, Glomerular Filtration Rate 37.0L, Blood Urea Nitrogen 63H, Creatinine 1.91H, Sodium Level 140, Potassium Level 4.6, Chloride Level 108H, Carbon Dioxide Level 26, Calcium Level 8.2L, Aspartate Amino Transf (AST/SGOT) 18, Alanine Aminotransferase (ALT/SGPT) 18, Alkaline Phosphatase 101, Total Bilirubin 0.6, Total Protein 8.1, Albumin 2.3L, Albumin/Globulin Ratio 0.40L 06/15/18 11:54: Bedside Glucose (Misc Panel) 157H CBC/BMP Laboratory Tests 06/15/18 04:25 Red Blood Count 2.68 L, Mean Corpuscular Volume 99.6 H, Mean Corpuscular Hemoglobin 31.7, Mean Corpuscular Hemoglobin Concent 31.8 L, Red Cell Distribut ion Width 16.2 H, Calcium Level 8.2 L, Aspartate Amino Transf (AST/SGOT) 18, Alanine Aminotransferase (ALT/SGPT) 18, Alkaline Phosphatase 101, Total Bilirubin 0.6, Total Protein 8.1, Albumin 2.3 L FSBS Laboratory Tests Test 06/14/18 20:04 06/15/18 11:54 Range/Units Bedside Glucose (Misc Panel) 223 157 83-110 MG/DL Microbiology Microbiology 06/12/18 Blood Culture - Preliminary, Resulted No Growth after 72 hours. All specime... 06/12/18 Blood Culture - Preliminary, Resulted No Growth after 72 hours. All specime... Discharge Medications Scheduled Aspirin (Aspirin EC) 81 Mg Tabec, 81 MG PO DAILY, (Reported) Cholecalciferol (Vitamin D3) 1,000 Unit Tab, 2,000 UNIT PO DAILY, (Reported) Citalopram Hydrobromide (Citalopram Hydrobromide) 20 Mg Tab, 10 MG PO QHS, (Reported) Glipizide (Glipizide) 10 Mg Tab, 20 MG PO BID, (Reported) Levofloxacin Hemihydrate (Levaquin) 750 Mg Tab, 750 MG PO Q2D Metoprolol Tartrate (Metoprolol Tartrate) 50 Mg Tab, 50 MG PO TID, (Reported) Polyethylene Glycol (Miralax) 1 Pow Pow, 17 GM PO QHS, (Reported) Potassium (Potassium) 99 Mg Tab, 99 MG PO DAILY, (Reported) Torsemide (Torsemide) 20 Mg Tab, 20 MG PO DAILY, (Reported) Warfarin Sod (Warfarin Sodium) 4 Mg Tab, 4 MG PO QHS, (Reported) Scheduled PRN Acetaminophen (Tylenol Extra Strength) 500 Mg Tab, 1,000 MG PO Q6H PRN for PAIN, (Reported) Omeprazole (Omeprazole) 20 Mg Cap, 20 MG PO DAILY PRN for ACID REFLUX, (Repo rted) Allergies Coded Allergies: Sherman (Verified Allergy, Severe, ANAPHYLAXIS, 11/09/14) Penicillins (Verified Allergy, Severe, ANAPHYLAXIS, 08/04/14) Metformin (Verified Allergy, Unknown, 05/30/18) TONGUE SWELLING Statins (Verified Allergy, Unknown, 05/30/18) AMS Duloxetine (Unverified Adverse Reaction, Mild, N/V, 04/16/18) MARILYNN DUKES MD Jun 15, 2018 17:41
[2018-06-15] MEDS ORDERED: DOXY-350 PO (17:42)
== END 2018-06-15 13:30 | disposition home health service (06) | DRG 178 ==
LOC: M ED 13:40 → M ED INP 19:06 → M PCU 06-13 08:44
PROVIDERS: ADMIT Internal Medicine; ATTEND Internal Medicine
PROC: 30233N1 Transfusion of Nonautologous Red Blood Cells into Peripheral Vein, Percutaneous Approach (ICD-10-PCS; principal; 2018-06-14)
DX: J15.212 Pneumonia due to Methicillin resistant Staphylococcus aureus (principal); I50.32 Chronic diastolic (congestive) heart failure; N18.3 Chronic kidney disease, stage 3 (moderate); I48.91 Unspecified atrial fibrillation; Z79.01 Long term (current) use of 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s; E11.9 Type 2 diabetes mellitus without complications; I25.10 Atherosclerotic heart disease of native coronary artery without angina pectoris; Z95.1 Presence of aortocoronary bypass graft; Z95.2 Presence of prosthetic heart valve; Z79.899 Other long term (current) drug therapy; Z79.82 Long term (current) use of aspirin; Z88.0 Allergy status to penicillin; Z91.018 Allergy to other foods; Z88.8 Allergy status to other drugs, medicaments and biological substances; F41.9 Anxiety disorder, unspecified; F32.9 Major depressive disorder, single episode, unspecified; K21.9 Gastro-esophageal reflux disease without esophagitis

== ENCOUNTER → 2018-06-20 | Outpatient (CLI) | payer MEDICARE ==
[~2018-06-20] MED LIST changes: +ASPI-286 PO; -ASPI1TAB PO; -ASPI81CH3 GT; +ASPI81CH48 GT; +ASPI81TA26 PO; -CHIL81CH2 PO; -CITA-230 GT; -CITA-230 PO; -CITA20TA4 PO; +CITA20TA6 PO; +CITA20TA7 GT; +CITA20TA7 PO; +DOXY-350 PO; +ECHI1CAP2 PO; -EUCE12CR TOP; +FURO20TA2; +GLIP10TA6; +GUAI100L6 PO; -GUAI100S27 PO; +HEPA500011 SC; +HYDR1CRE95 TOP; +LEVA750T7 PO; +MIRA33504 PO; +OMEP20CA3 PO; +TYLE500T78 PO; -[UNRECOGNIZED DRUG - CODE] SC
--- NOTE | 2018-06-20 15:09 | REP ---
Chest two views HISTORY: Right lower lobe pneumonia Comparison: 06/12/2018 Patchy density is present in the right lower lobe consistent with an infiltrate that is decreased compared to the previous study. Pleural thickening is present along the left lower lateral chest wall. The heart is normal in size. The pulmonary vasculature is normal in appearance. The bony structure is intact. There is an old compression fracture of a lower thoracic vertebral body. A heart valve is present. IMPRESSION: Right lower lobe infiltrate decreased compared to the previous study.
== END ==
LOC: M CLY 12:00
PROVIDERS: ATTEND Family Medicine
DX: J18.1 Lobar pneumonia, unspecified organism (principal)
CPT/HCPCS: 71046; 99496; G0463

== ENCOUNTER → 2018-08-28 | Outpatient (CLI) | payer MEDICARE, MEDICAID ==
--- NOTE | 2018-08-28 11:57 | REP ---
Clinical: Coronary artery disease . Comparison: 06/20/2018 . Technique: PA and lateral. Findings: The mediastinum and cardiac silhouette are stable. Evidence for prior sternotomy and valve repair. Surgical clips in the left suprahilar region unchanged. The lung sahu demonstrate diffuse chronic changes without acute consolidation, effusion, or pneumothorax. Previously noted right lower lobe infiltrate has resolved. The skeletal structures are intact and normal. Impression: 1. Diffuse chronic-appearing changes. 2. No obvious acute process. 3. Previously noted right lower lobe infiltrate resolved.
== END ==
LOC: M CLY 11:22
PROVIDERS: ATTEND Family Medicine
DX: I25.10 Atherosclerotic heart disease of native coronary artery without angina pectoris (principal); E11.22 Type 2 diabetes mellitus with diabetic chronic kidney disease
CPT/HCPCS: 71046; 80053; 83036; 85025; G0463

== ENCOUNTER → 2018-08-28 | Outpatient (REF) | payer MEDICARE, MEDICAID ==
[2018-08-28 16:52] LABS: BASO # 0.1 10^3/uL (0.0-0.2); BASO % 0.7 % (0.0-1.0); EOS # 0.3 10^3/uL (0.0-0.50); EOS % 4.5 % (0.0-3.0); HEMATOCRIT 31.5 % (42.0-52.0); HEMOGLOBIN 10.5 g/dl (13.5-17.5); LYMPH # 1.6 10^3/uL (1.5-4.5); LYMPH % 22.7 % (24.0-44.0); MEAN CORPUSCULAR HEMOGLOBIN 34.7 pg (27.0-33.0); MEAN CORPUSCULAR HGB CONC 33.3 g/dl (32.0-36.5); MONO # 0.8 10^3/uL (0.0-0.8); MONO % 11.8 % (0.0-5.0); NEUTROPHILS # 4.3 10^3/uL (1.8-7.7); NEUTROPHILS % 59.7 % (36.0-66.0); PLATELET COUNT, AUTOMATED 132 10^3/uL (150-450); RED BLOOD COUNT 3.03 10^6/uL (4.30-6.10); WHITE BLOOD COUNT 7.1 10^3/uL (4.0-10.0)
[2018-08-28 16:56] LABS: ALBUMIN 3.3 GM/DL (3.2-5.2); BILIRUBIN,TOTAL 0.4 MG/DL (0.2-1.0); CALCIUM LEVEL 9.3 MG/DL (8.8-10.2); CREATININE FOR GFR 1.98 MG/DL (0.70-1.30); GLOMERULAR FILTRATION RATE 35.4 (>42); POTASSIUM SERUM 4.7 MEQ/L (3.5-5.1); TOTAL PROTEIN 7.7 GM/DL (6.4-8.2)
[2018-08-28 18:23] LABS: HEMOGLOBIN A1c 6.1 %
== END ==
LOC: M SFHCCLAY 11:13
PROVIDERS: ATTEND Family Medicine
DX: E11.22 Type 2 diabetes mellitus with diabetic chronic kidney disease (principal); N18.3 Chronic kidney disease, stage 3 (moderate)
CPT/HCPCS: 80053; 83036; 85025; G0463

== ENCOUNTER → 2018-09-08 | Outpatient (CLI) | payer MEDICARE, MEDICAID ==
--- NOTE | 2018-09-08 12:38 | REP ---
RIGHT FOOT, FOUR VIEWS: HISTORY: Infection. There is no acute fracture or dislocation. The joint spaces are normal in appearance. Osteophytes are present on the inferior and posterior calcaneus. IMPRESSION: There is no acute fracture or dislocation.
== END ==
LOC: M CLY 11:29
PROVIDERS: ATTEND Family Medicine
DX: M25.774 Osteophyte, right foot (principal); S91.301A Unspecified open wound, right foot, initial encounter; X58.XXXA Exposure to other specified factors, initial encounter; Y92.9 Unspecified place or not applicable
CPT/HCPCS: 73630; G0463

== ENCOUNTER 2019-01-17 13:02 | Inpatient (IN) | payer MEDICARE, MEDICAID ==
[~2019-01-17] VITALS: Ht 177.8 cm; Wt 81.4 kg
[~2019-01-17 13:02] MED LIST changes: +CHOL100029 PO; -OMEP20CA3 PO; +OMEP20CA4 PO; -VITAD1000T PO
[2019-01-17] MEDS ORDERED: GABA-1171 PO (13:53)
[2019-01-17] MEDS ORDERED: AMLO5TAB6 PO (13:53)
--- NOTE | 2019-01-17 15:24 | REP ---
REASON: Weakness. COMPARISON: Multiple, the latest 08/28/2018. The cardiomediastinal silhouette is unchanged. There has been previous median sternotomy. The heart is mildly enlarged. There has been aortic valvular replacement status quo. Patchy opacities have developed in the right lower lobe since the last exam. There is a pleura-based density seen along the right lateral chest wall. There is thickening of the fissures. There is no change in the osseous structures. IMPRESSION: 1. Right lower lobe pneumonia with possible loculated pleural effusion. 2. Cardiomegaly, status quo. Electronically Signed by Vivek Euceda DO 01/17/2019 03:55 P
[2019-01-17 15:53] LABS: BASO # 0.1 10^3/uL (0.0-0.2); BASO % 0.8 % (0.0-1.0); EOS # 0.7 10^3/uL (0.0-0.5); HEMATOCRIT 33.6 % (42.0-52.0); HEMOGLOBIN 11.1 g/dl (13.5-17.5); LYMPH # 1.4 10^3/uL (1.5-5.0); LYMPH % 15.5 % (24.0-44.0); MEAN CORPUSCULAR HEMOGLOBIN 32.8 pg (27.0-33.0); MEAN CORPUSCULAR VOLUME 99.4 fl (80.0-96.0); MONO # 0.7 10^3/uL (0.0-0.8); MONO % 8.1 % (0.0-5.0); NEUTROPHILS % 66.8 % (36.0-66.0); PLATELET COUNT, AUTOMATED 159 10^3/uL (150-450); RED BLOOD COUNT 3.38 10^6/uL (4.30-6.10)
[2019-01-17 16:03] LABS: INR 2.54; PROTHROMBIN TIME 27.2 SECONDS (11.8-14.0)
[2019-01-17 16:30] LABS: CALCIUM LEVEL 8.5 MG/DL (8.8-10.2); CK-MB VALUE MASS 4.6 NG/ML (<3.6); CREATININE FOR GFR 1.83 MG/DL (0.70-1.30); GLOMERULAR FILTRATION RATE 38.8 (>42); MB/CK RELATIVE INDEX 3.87 (< OR =4); POTASSIUM SERUM 4.8 MEQ/L (3.5-5.1); TROPONIN I 0.02 NG/ML (< 0.10)
[2019-01-17] MEDS ORDERED: MIRA3350 PO (16:50)
[2019-01-17] MEDS ORDERED: HM P99TA PO (16:50)
[2019-01-17] MEDS ORDERED: GLIP10TA6 PO (16:50)
[2019-01-17] MEDS ORDERED: ACET-897 PO (16:50)
[2019-01-17] MEDS ORDERED: FUROSEMIDE 40 MG/4 ML VIAL (J1940) IV ONE (17:00)
[2019-01-17] MEDS ORDERED: CEFEPIME HCL 2 GM in D5W MINI-BAG PLUS 50 ML IV ONE (17:00)
[2019-01-17] MEDS ORDERED: METOPROLOL TART 50 MG TAB PO ONE (18:30)
[2019-01-17] MEDS ORDERED: amLODIPine 5 MG TAB PO ONE (18:45)
[2019-01-17] MEDS ORDERED: DEXTROSE 50% 50 ML SYRINGE IV PRN (20:00)
[2019-01-17] MEDS ORDERED: VANCOMYCIN HCL 1,000 MG, VIAL MATE ADAPTER 1 EACH in D5W 250 ML IV ONE (20:00)
[2019-01-17] MEDS ORDERED: GLUCAGON FOR INJ 1 MG VIAL (J1610) SC PRN (20:00)
[2019-01-17] MEDS ORDERED: GLUCOSE 4 GM CHEW TABLET PO PRN (20:00)
[2019-01-17 20:36] VITALS: BP 164/82
[2019-01-17] MEDS: HumaLOG INSULIN (NovoLOG) PER UNIT SC SCH (21:00)
[2019-01-17] MEDS: WARFARIN SOD 4 MG TAB PO SCH (21:02)
[2019-01-17] MEDS: METOPROLOL TART 50 MG TAB PO SCH (21:03)
[2019-01-17] MEDS: DOCUSATE SODIUM 100 MG CAP PO SCH (21:03)
[2019-01-17] MEDS: GABAPENTIN 100 MG CAP PO SCH (21:03)
[2019-01-17] MEDS: CitaloPRAM (CeleXA) 20 MG TAB PO SCH (21:03)
--- NOTE | 2019-01-17 21:58 | PHACANCOPD ---
PHARMACY VANCOMYCIN DOSING Pt Demographics Demographics Patient Age:73 , Weight:81.600 , Gender: male Adjusted Body Weight Date: 01/17/19, Adjusted Body Weight: Kg Events Past 24 Hours Events Past 24 Hours: NO: Dialysis, Diuretic Therapy, Change in CrCl, Fever, Elevation in WBC, Pending Diagnostics, Pending Procedures, Other Vancomycin Vancomycin Target Ranges: 15-20 mcg/ml Vancomycin Load Y/N: Yes Load Dose Date Time Vancomycin Load Dose: 1500mg Date: 01-17 Time: 2100 Vancomycin Dose Date: 01/17/19. Current Vancomycin Dose: [1000mg q24h] Intermittent Dosing?: No Labs Labs Item Value Date Time White Blood Count 9.0 10^3/uL 01/17/19 1542 Glomerular Filtration Rate 38.8 L 01/17/19 1542 Creatinine 1.83 MG/DL H 01/17/19 1542 Blood Urea Nitrogen 40 MG/DL H 01/17/19 1542 Vital Signs Label Value Date Time Patient Temperature 96.2 degrees F 01/17/192035 Temperature Source Temporal 01/17/192035 Micro Microbiology 01/17/19 Respiratory Virus Panel (PCR) (MANDIE) - Final, Complete 01/17/19 Blood Culture, Received Pending 01/17/19 Blood Culture, Received Pending Creatinine Clearance Date:01/17/19. Creatinine Clearance: [~25]. Pending Labs Trough - @1999 Assessment and Plan Maintaining Current Dose?: Yes Reason for dose change: No Dose Change Pharmacist Note Pharmacist Note Date: 01/17/19. Pharmacist note:Will monitor and make adjustments as needed. [facility] Jan 17, 2019 21:58
[2019-01-17] MEDS ORDERED: VANCOMYCIN HCL 500 MG in D5W MINI-BAG PLUS 100 ML IV ONE (22:00)
--- NOTE | 2019-01-17 22:46 | HPEPDOC ---
General Date of Admission Jan 17, 2019 at 18:29 Date of Service: Jan 17, 2019 Chief Complaint The patient is a 73-year-old male admitted with a reason for visit of Congestive Heart Failure,Loculated Pleural Effusio. Source: Patient, RN/, Old records History of Present Illness 73 year old male with extensive PMH of Severe Aortic stenosis s/p AVR, CAD s/p CABG, SIDNEY, CKD, Diabetes, Systolic CHF with EF or 40% prior to surgery , Now chronic diastolic CHF, Recurrent right Pleural effusions for 2 years, Witnessed Cardiac arrest in hospital x 2 in 02/17/2018 ( Vifib arrest and PEA) , s/p right chest tube first at [facility] in feb 2018, transferred to [facility] had urgent CABG ( 6 vessel), AVR with bioprosthetic valve 02-21-18, SHIVA on CKD requiring CVVHD, IABP, Bilateral chest tubes (removed on 04/10/18), tracheostomy, feeding tube, Critical illness myopathy, Afib started on coumadin at [facility], Discharged from hospital on 04/11/18, strokes in different distributions noted in MRI april noted while in ARU in [facility] (04/14/18) without any motor or sensory deficits, Multifocal MRSA pneumonia in Apr 2018, MRSA bacterimia then, Thrombocytopenia now resolved, Bilateral rib fractures, T12 vertebral body anterior compression, Squamous cell carcinoma of the skin, Has delayed recovery from anesthesia by history, Depression, Bilateral cataract surgeries and lens implant, Hoarseness of voice after the ROSEANN in april now resolved, Malignant melanoma removed from the back 10 to 11 years ago, right 5th toe osteomyelitis s/p amputation was told it was MRSA so was on daptomycin for 6 weeks in november and december 2018, recurrent admissions for episodes of right lower lobe pneumonia since april and diastolic CHF exacerbations and prolonged hospitalizations and rehab unit stays since February 2018 presented to the ED for recheck of abnormal blood work as was told by the nurse who does his INR check. Patient originally from [place] had moved down to [facility] 4 months ago. While down there he has had 5 admissions either for Pneumonia or CHF exacerbations or both and had also had OM of right 5 th toe reported by patient as was MRSA was on daptomycin for 6 weeks in November and december. Pateint did not like it there and he and his are in [facility] process of maving back up here. He was discharged last week 01/09/19 from the hospital in [place] where he was treated for pneumonia and fluids. He had blood work done this week for his INR and was told by the nurse that his blood count was very low that he should go to the hospital . As he was coming up here so he delayed 2 days and came to the hospital here. He also noted that he has been having a bothersome cough for the past week with some phlegm production and he has been getting progressively SOB on mild exertion. He also said he had some low grade fever at home. CXR here in the ED showed loculated pleural effusion with right lower lobe infiltrates. His Pro bnp is elevated, He was admitted for HCAP and Diastolic CHF exacerbation. Home Medications Scheduled Aspirin (Aspirin EC) 81 Mg Tabec, 81 MG PO DAILY, (Reported) Cholecalciferol (Vitamin D3) (Vitamin D3) 1,000 Unit Tab, 2,000 UNIT PO DAILY, (Reported) TAKES AT NOON Citalopram Hydrobromide (Citalopram HBr) 20 Mg Tab, 10 MG PO QHS, (Reported) Echinacea (Echinacea) 380 Mg Cap, 760 MG PO DAILY, (Reported) Gabapentin (Gabapentin) 100 Mg Capsule, 100 MG PO QHS, (Reported) Glipizide (Glipizide) 10 Mg Tab, 10 MG PO QAM, (Reported) Glipizide (Glipizide) 10 Mg Tablet, 5 MG PO QPM, (Reported) Metoprolol Tartrate (Metoprolol Tartrate) 50 Mg Tab, 50 MG PO BID, (Reported) Polyethylene Glycol 3350 (Miralax) 119 Gm Powder, 17 GM PO QHS, (Reported) Potassium Gluconate (Potassium) 99 Mg Tablet, 595 MG PO DAILY, (Reported) TAKES AT 1200 Torsemide (Torsemide) 20 Mg Tab, 20 MG PO DAILY, (Reported) Warfarin Sodium (Warfarin Sodium) 4 Mg Tab, 4 MG PO QPM, (Reported) Scheduled PRN Acetaminophen (Tylenol Extra Strength) 500 Mg Tablet, 1,000 MG PO Q6H PRN for PAIN, (Reported) Amlodipine Besylate (Amlodipine Besylate) 5 Mg Tablet, 5 MG PO DAILY PRN for BLOOD PRESSURE > 150, (Reported) Allergies Coded Allergies: Magnolia (Verified Allergy, Severe, ANAPHYLAXIS, 11/09/14) Penicillins (Verified Allergy, Severe, Anaphylaxis, 07/02/18) metformin (Verified Allergy, Severe, Tongue swelling, 07/02/18) Jvqqaib-Xql-Gwa Reductase Inhibitor (Verified Adverse Reaction, Intermediate, Altered Mental Status, 07/02/18) duloxetine (Unverified Adverse Reaction, Mild, Nausea and vomiting, 07/02/18) codeine (Verified Adverse Reaction, Unknown, "out of it". , 01/17/19) mixed with guifenasin Past Medical History Medical History H/o Severe Aortic stenosis s/p AVR, CAD s/p CABG, SIDNEY, CKD, Diabetes, Systolic CHF with EF or 40% prior to surgery , Now chronic diastolic CHF, Recurrent right Pleural effusions for 2 years, Witnessed Cardiac arrest in hospital x 2 in 02/17/2018 ( Vifib arrest and PEA) , s/p right chest tube first at [facility] in feb 2018, transferred to [facility] had urgent CABG ( 6 vessel), AVR with bioprosthetic valve 02-21-18, SHIVA on CKD requiring CVVHD, IABP, Bilateral chest tubes (removed on 04/10/18), tracheostomy, feeding tube, Critical illness myopathy, Afib started on coumadin at [facility], Discharged from hospital on 04/11/18, strokes in different distributions noted in MRI april noted while in ARU in [facility] (04/14/18), Multifocal MRSA pneumonia in Apr 2018, MRSA bacterimia then, Thrombocytopenia now resolved, Bilateral rib fractures, T12 vertebral body anterior compression, Squamous cell carcinoma of the skin, Has delayed recovery from anesthesia by history, Depression, Bilateral cataract surgeries and lens implant, Hoarseness of voice after the ROSEANN in april now resolved, Malignant melanoma removed from the back 10 to 11 years ago, right 5th toe osteomyelitis s/p amputation was told it was MRSA so was on daptomycin for 6 weeks in november and december 2018, recurrent admissions for episodes of right lower lobe pneumonia since april and diastolic CHF exacerbations Surgical History BACK SURGERY 2005, SQUAMOUS CELL RIGHT HAND 2003, LEFT EYE CATARACT SURGERY 07/07/14, SKIN CANCER REMOVAL LEFT SHOULDER AND RIGHT LOWER CALF 02/2017, CABG X 6, AORTIC VALVE REPLACEMENT- [facility] 02/2018, LEFT 5TH TOE AMPUTATION 2018 Family History FATHER: 63 YRS, DIAGNOSED WITH HEART DISEASE MOTHER: 85 YRS, CANCER, DIABETES, HYPERTENSION SIBLINGS: 43 YRS, DIABETES SON(S): ALIVE 2 BROTHER(S) , 2 SISTER(S) - HEALTHY. 2 SON(S) - HEALTHY. BROTHER HAS HYPERTENSION Social History * Smoker: Denies Alcohol: Denies Drugs: denies A-FIB/CHADSVASC A-FIB History Current/History of A-Fib/PAF?: Yes Current PO Anticoag Therapy: Yes Review of Systems Constitutional: Reports: Fever, Malaise, Fatigue Eyes: Denies: Pain, Vision change ENT: Denies: Head Aches, Ear Pain, Dysphagia Skin: Denies: Rash, Lesions, Breakdown Pulmonary: Reports: Dyspnea, Cough Cardiovascular: Reports: Edema; Denies: Chest Pain, Palpitations, Orthopnea, Paroxysmal Noc. Dyspnea, Lt Headedness Gastrointestinal: Denies: Nausea, Vomiting, Abdominal Pain, Diarrhea Genitourinary: Denies: Dysuria, Frequency, Incontinence, Retention Hematologic: Denies: Bruising, Bleeding Excessively Musculoskeletal: Reports: Back Pain; Denies: Neck Pain, Joint Pain, Muscle Pain, Spasms Physical Examination General Exam: Positive: Alert, Cooperative, Mild Distress, Other (Has 3 to 4 word conversational dyspnea) Eye Exam: Positive: PERRLA, Conjunctiva & lids normal, EOMI; Negative: Sclera icteric ENT Exam: Positive: Atraumatic, Mucous membr. moist/pink, Pharynx Normal Neck Exam: Positive: Supple, JVD; Negative: thyromegaly Chest Exam: Positive: Other (bibasal creackles > on the right) Heart Exam: Positive: Rate Normal, Regular Rhythm, Normal S1, Normal S2; Negative: Murmurs, Rubs Telemetry: Positive: No significant arrhythmia Abdomen Exam: Positive: Normal bowel sounds, Soft; Negative: Tenderness, Hepatospenomegaly Extremity Exam: Positive: Edema (1+), Normal pulses; Negative: Clubbing, Cyanosis Skin Exam: Positive: Lesion (right 5 th toe healing ulcer ) Neuro Exam: Positive: Normal Speech, Normal Tone, Cranial Nerves 3-12 NL, Reflexes 2+ Psych Exam: Positive: Oriented x 3 Vital Signs Vital Signs Date Time Temp Pulse Resp B/P (MAP) Pulse Ox O2 Delivery O2 Flow Rate FiO2 01/17/19 19:42 70 18 169/86 (113) 97 Room Air 01/17/19 13:04 96.5 Laboratory Data Labs 24H Laboratory Tests 2 01/17/19 15:42: Immature Granulocyte % (Auto) 0.8, White Blood Count 9.0, Red Blood Count 3.38L, Hemoglobin 11.1L, Hematocrit 33.6L, Mean Corpuscular Volume 99.4H, Mean Corpuscular Hemoglobin 32.8, Mean Corpuscular Hemoglobin Concent 33.0, Red Cell Distribution Width 14.9H, Platelet Count 159, Neutrophils (%) (Auto) 66.8H, Lymphocytes (%) (Auto) 15.5L, Monocytes (%) (Auto) 8.1H, Eosinophils (%) (Auto) 8.0H, Basophils (%) (Auto) 0.8, Neutrophils # (Auto) 6.0, Lymphocytes # (Auto) 1.4L, Monocytes # (Auto) 0.7, Eosinophils # (Auto) 0.7H, Basophils # (Auto) 0.1, Nucleated Red Blood Cells % (auto) 0.0, Prothrombin Time 27.2H, Prothromb Time International Ratio 2.54, Anion Gap 5L, Glomerular Filtration Rate 38.8L, Lactic Acid Level 1.2, Blood Urea Nitrogen 40H, Creatinine 1.83H, Sodium Level 140, Potassium Level 4.8, Chloride Level 107, Carbon Dioxide Level 28, Calcium Level 8.5L, Total Creatine Kinase 119, Creatine Kinase MB 4.6H, Creatine Kinase MB Relative Index 3.87, Troponin I 0.02, YN-Fko-R-Type Natriuretic Peptide 1873H CBC/BMP Laboratory Tests 01/17/19 15:42 Red Blood Count 3.38 L, Mean Corpuscular Volume 99.4 H, Mean Corpuscular Hemoglobin 32.8, Mean Corpuscular Hemoglobin Concent 33.0, Red Cell Distribution Width 14.9 H, Neutrophils (%) (Auto) 66.8 H, Lymphocytes (%) (Auto) 15.5 L, Monocytes (%) (Auto) 8.1 H, Eosinophils (%) (Auto) 8.0 H, Basophils (%) (Auto) 0.8, Neutrophils # (Auto) 6.0, Lymphocytes # (Auto) 1.4 L, Monocytes # (Auto) 0.7, Eosinophils # (Auto) 0.7 H, Basophils # (Auto) 0.1, Calcium Level 8.5 L, Total Creatine Kinase 119 Microbiology Microbiology 01/17/19 Respiratory Virus Panel (PCR) (MANDIE) - Final, Complete 01/17/19 Blood Culture, Received Pending 01/17/19 Blood Culture, Received Pending Assessment/Plan 73 year old male with extensive PMH of Severe Aortic stenosis s/p AVR, CAD s/p CABG, SIDNEY, pulmonary hypertension, CKD, Diabetes, Systolic CHF with EF or 40% prior to surgery , Now chronic diastolic CHF, Recurrent right Pleural effusions for 2 years, Witnessed Cardiac arrest in hospital x 2 in 02/17/2018 ( Vifib arrest and PEA) , s/p right chest tube first at [facility] in feb 2018, transferred to [facility] had urgent CABG ( 6 vessel), AVR with bioprosthetic valve 02-21-18, SHIVA on CKD requiring CVVHD, IABP, Bilateral chest tubes (removed on 04/10/18), tracheostomy, feeding tube, Critical illness myopathy, Afib started on coumadin at [facility], Discharged from hospital on 04/11/18, strokes in different distributions noted in MRI april noted while in ARU in [facility] (04/14/18) without any motor or sensory deficits, Multifocal MRSA pneumonia in Apr 2018, MRSA bacterimia then, Thrombocytopenia now resolved, Bilateral rib fractures, T12 vertebral body anterior compression, Squamous cell carcinoma of the skin, Has delayed recovery from anesthesia by history, Depression, Bilateral cataract surgeries and lens implant, Hoarseness of voice after the ROSEANN in april now resolved, Malignant melanoma removed from the back 10 to 11 years ago, right 5th toe osteomyelitis s/p amputation was told it was MRSA so was on daptomycin for 6 weeks in november and December 2018, recurrent admissions for episodes of right lower lobe pneumonia since April and diastolic CHF exacerbations and prolonged hospitalizations and rehab unit stays since February 2018 presented to the ED for recheck of abnormal blood work as was told by the nurse who does his INR check. Patient originally from [place] had moved down to [facility] 4 months ago. While down there he has had 5 admissions either for Pneumonia or CHF exacerbations or both and had also had OM of right 5 th toe reported by araceli jarquin as was MRSA was on daptomycin for 6 weeks in November and December. Patient did not like it there and he and his are in the process of moving back up here. He was discharged last week 01/09/19 from the hospital in [place] where he was treated for pneumonia and fluids. He had blood work done this week for his INR and was told by the nurse that his blood count was very low that he should go to the hospital . As he was coming up here so he delayed 2 days and came to the hospital here. He also noted that he has been having a bothersome cough for the past week with some phlegm production and he has been getting progressively SOB on mild exertion. He also said he had some low grade fever at home. CXR here in the ED showed loculated pleural effusion with right lower lobe infiltrates. His Pro bnp is elevated, He was admitted for HCAP and Diastolic CHF exacerbation. Diastolic CHF exacerbation will give lasix iv daily weights, I/O and fluid restriction of 1.5 liters. HCAP with h/o MRSA pneumonia and bacteremia earlier this year continue cefepime and vanco blood cultures and sputum cultures sent vanco dosage to be adjusted by pharmacy Pleural effusion recurrent with chest tubes from feb to apr had resolved as per xray in august 2018 possibly loculated at present will get a CT scan on saturday after diuresis to decide if it needs to be tapped. Diabetes continue glipizide and lispro as per sliding scale Atrial fibrillation on coumadin and betablocker for rate control will hold coumadin as may need to be tapped. Hypertension continue amlodipine and metoprolol CAD/ CABG continue asa, betablocker. allergic to statins. CKD stage 3 creatinine at baseline, continue to monitor closely h/o CVA continue asa and coumadin Full code. Plan / VTE VTE Prophylaxis Ordered?: Yes KEIRA CORDOBA MD Jan 17, 2019 20:36
[2019-01-18] VITALS (7 sets, daily range): BP systolic 108–170; BP diastolic 61–88
[2019-01-18] MEDS: CEFEPIME HCL 1 GM in D5W MINI-BAG PLUS 50 ML IV SCH ×3 (05:50→19:13)
[2019-01-18 06:18] LABS: BASO # 0.1 10^3/uL (0.0-0.2); BASO % 0.8 % (0.0-1.0); EOS % 10.2 % (0.0-3.0); HEMATOCRIT 34.1 % (42.0-52.0); LYMPH # 1.5 10^3/uL (1.5-5.0); LYMPH % 15.5 % (24.0-44.0); MEAN CORPUSCULAR HGB CONC 32.3 g/dl (32.0-36.5); MEAN CORPUSCULAR VOLUME 99.1 fl (80.0-96.0); MONO # 1.1 10^3/uL (0.0-0.8); MONO % 11.6 % (0.0-5.0); NEUTROPHILS # 5.9 10^3/uL (1.5-8.5); NEUTROPHILS % 61.2 % (36.0-66.0); PLATELET COUNT, AUTOMATED 162 10^3/uL (150-450); RED BLOOD COUNT 3.44 10^6/uL (4.30-6.10); WHITE BLOOD COUNT 9.7 10^3/uL (4.0-10.0)
[2019-01-18 06:27] LABS: INR 2.36; PROTHROMBIN TIME 25.7 SECONDS (11.8-14.0)
[2019-01-18 06:39] LABS: CALCIUM LEVEL 9.2 MG/DL (8.8-10.2); CREATININE FOR GFR 2.16 MG/DL (0.70-1.30); GLOMERULAR FILTRATION RATE 32.1 (>42); POTASSIUM SERUM 3.9 MEQ/L (3.5-5.1)
[2019-01-18] MEDS: HumaLOG INSULIN (NovoLOG) PER UNIT SC SCH ×4 (07:30→21:00)
[2019-01-18] MEDS ORDERED: FUROSEMIDE 40 MG/4 ML VIAL (J1940) IV SCH ×2 (09:00)
[2019-01-18] MEDS: DOCUSATE SODIUM 100 MG CAP PO SCH ×2 (09:25→21:01)
[2019-01-18] MEDS: ASPIRIN 81 MG ENTERIC TAB PO SCH (09:26)
[2019-01-18] MEDS: METOPROLOL TART 50 MG TAB PO SCH ×2 (09:26→21:02)
[2019-01-18] MEDS: glipiZIDE (GLUCOTROL) 5 MG TAB PO SCH ×2 (10:42→17:48)
--- NOTE | 2019-01-18 10:49 | IPNPDOC ---
Subjective Date Seen The patient was seen on 01/18/19. Subjective Chief Complaint/HPI Says he is breathing better today and his cough is a little less this morning. Says had good urine output overnight. No fever or chills, no nausea or diarrhea. Objective Physical Examination General Exam: Positive: Alert, Cooperative, Mild Distress, Other (Has 3 to 4 word conversational dyspnea) Eye Exam: Positive: PERRLA, Conjunctiva & lids normal, EOMI; Negative: Sclera icteric ENT Exam: Positive: Atraumatic, Mucous membr. moist/pink, Pharynx Normal Neck Exam: Positive: Supple, JVD; Negative: thyromegaly Chest Exam: Positive: Other (bibasal creackles > on the right) Heart Exam: Positive: Rate Normal, Regular Rhythm, Normal S1, Normal S2; Negative: Murmurs, Rubs Telemetry: Positive: No significant arrhythmia Abdomen Exam: Positive: Normal bowel sounds, Soft; Negative: Tenderness, Hepatospenomegaly Extremity Exam: Positive: Edema (1+), Normal pulses; Negative: Clubbing, Cyanosis Skin Exam: Positive: Lesion (right 5 th toe healing ulcer ) Neuro Exam: Positive: Normal Speech, Normal Tone, Cranial Nerves 3-12 NL, Reflexes 2+ Psych Exam: Positive: Oriented x 3 Assessment /Plan Assessment 73 year old male with extensive PMH of Severe Aortic stenosis s/p AVR, CAD s/p CABG, SIDNEY, pulmonary hypertension, CKD, Diabetes, Systolic CHF with EF or 40% prior to surgery , Now chronic diastolic CHF, Recurrent right Pleural effusions for 2 years, Witnessed Cardiac arrest in hospital x 2 in 02/17/2018 ( Vifib arrest and PEA) , s/p right chest tube first at [facility] in feb 2018, transferred to [facility] had urgent CABG ( 6 vessel), AVR with bioprosthetic valve 02-21-18, SHIVA on CKD requiring CVVHD, IABP, Bilateral chest tubes (removed on 04/10/18), tracheostomy, feeding tube, Critical illness myopathy, Afib started on coumadin at [facility], Discharged from hospital on 04/11/18, strokes in different d istributions noted in MRI april noted while in ARU in [facility] (04/14/18) without any motor or sensory deficits, Multifocal MRSA pneumonia in Apr 2018, MRSA bacterimia then, Thrombocytopenia now resolved, Bilateral rib fractures, T12 vertebral body anterior compression, Squamous cell carcinoma of the skin, Has delayed recovery from anesthesia by history, Depression, Bilateral cataract surgeries and lens implant, Hoarseness of voice after the ROSEANN in april now resolved, Malignant melanoma removed from the back 10 to 11 years ago, right 5th toe osteomyelitis s/p amputation was told it was MRSA so was on daptomycin for 6 weeks in november and December 2018, recurrent admissions for episodes of right lower lobe pneumonia since April and diastolic CHF exacerbations and prolonged hospitalizations and rehab unit stays since February 2018 presented to the ED for recheck of abnormal blood work as was told by the nurse who does his INR check. Patient originally from [place] had moved down to [facility] 4 months ago. While down there he has had 5 admissions either for Pneumonia or CHF exacerbations or both and had also had OM of right 5 th toe reported by patient as was MRSA was on daptomycin for 6 weeks in November and December. Patient did not like it there and he and his are in the process of moving back up here. He was discharged last week 01/09/19 from the hospital in [place] where he was treated for pneumonia and fluids. He had blood work done this week for his INR and was told by the nurse that his blood count was very low that he should go to the hospital . As he was coming up here so he delayed 2 days and came to the hospital here. He also noted that he has been having a bothersome cough for the past week with some phlegm production and he has been getting progressively SOB on mild exertion. He also said he had some low grade fever at home. CXR here in the ED showed loculated pleural effusion with right lower lobe infiltrates. His Pro bnp is elevated, He was admitted for HCAP and Diastolic CHF exacerbation. Diastolic CHF exacerbation given 1 dose of lasix creatine up today will hold off this am will give in the pm. pro bnp elevated. daily weights, I/O and fluid restriction of 1.5 liters. HCAP with h/o MRSA pneumonia and bacteremia earlier this year continue cefepime and vanco blood cultures and sputum cultures sent vanco dosage to be adjusted by pharmacy Pleural effusion recurrent with chest tubes from feb to apr had resolved as per xray in august 2018 possibly loculated at present will get a CT scan on saturday after diuresis to decide if it needs to be tapped. Diabetes continue glipizide and lispro as per sliding scale Atrial fibrillation on coumadin and betablocker for rate control will hold coumadin as may need to be tapped. Hypertension continue metoprolol CAD/ CABG continue asa, betablocker. allergic to statins. CKD stage 3 creatinine on the rise. will consult nephrology. h/o CVA continue asa and coumadin Full code. Plan/VTE VTE Prophylaxis Ordered?: Yes VS, I&O, 24H, Fishbone Vital Signs/I&O Vital Signs Date Time Temp Pulse Resp B/P (MAP) Pulse Ox O2 Delivery O2 Flow Rate FiO2 01/18/19 09:26 68 132/74 01/18/19 08:00 97.1 18 99 01/17/19 20:28 Room Air I&O- Last 24 Hours up to 6 AM 01/18/19 06:00 Intake Total 830 ml Output Total 1830 ml Balance -1000 ml Laboratory Data 24H LABS Laboratory Tests 2 01/17/19 15:42: Immature Granulocyte % (Auto) 0.8, White Blood Count 9.0, Red Blood Count 3.38L, Hemoglobin 11.1L, Hematocrit 33.6L, Mean Corpuscular Volume 99.4H, Mean Corpuscular Hemoglobin 32.8, Mean Corpuscular Hemoglobin Concent 33.0, Red Cell Distribution Width 14.9H, Platelet Count 159, Neutrophils (%) (Auto) 66.8H, Lymphocytes (%) (Auto) 15.5L, Monocytes (%) (Auto) 8.1H, Eosinophils (%) (Auto) 8.0H, Basophils (%) (Auto) 0.8, Neutrophils # (Auto) 6.0, Lymphocytes # (Auto) 1.4L, Monocytes # (Auto) 0.7, Eosinophils # (Auto) 0.7H, Basophils # (Auto) 0.1, Nucleated Red Blood Cells % (auto) 0.0, Prothrombin Time 27.2H, Prothromb Time International Ratio 2.54, Anion Gap 5L, Glomerular Filtration Rate 38.8L, Lactic Acid Level 1.2, Blood Urea Nitrogen 40H, Creatinine 1.83H, Sodium Level 140, Potassium Level 4.8, Chloride Level 107, Carbon Dioxide Level 28, Calcium Level 8.5L, Total Creatine Kinase 119, Creatine Kinase MB 4.6H, Creatine Kinase MB Relative Index 3.87, Troponin I 0.02, AM-Deu-B-Type Natriuretic Peptide 1873H 01/17/19 20:57: Bedside Glucose (Misc Panel) 181H 01/18/19 05:40: Immature Granulocyte % (Auto) 0.7, White Blood Count 9.7, Red Blood Count 3.44L, Hemoglobin 11.0L, Hematocrit 34.1L, Mean Corpuscular Volume 99.1H, Mean Corpuscular Hemoglobin 32.0, Mean Corpuscular Hemoglobin Concent 32.3, Red Cell Distribution Width 14.9H, Platelet Count 162, Neutrophils (%) (Auto) 61.2, Lymphocytes (%) (Auto) 15.5L, Monocytes (%) (Auto) 11.6H, Eosinophils (%) (Auto) 10.2H, Basophils (%) (Auto) 0.8, Neutrophils # (Auto) 5.9, Lymphocytes # (Auto) 1.5, Monocytes # (Auto) 1.1H, Eosinophils # (Auto) 1.0H, Basophils # (Auto) 0.1, Nucleated Red Blood Cells % (auto) 0.0, Prothrombin Time 25.7H, Prothromb Time International Ratio 2.36, Anion Gap 7L, Glomerular Filtration Rate 32.1L, Blood Urea Nitrogen 42H, Creatinine 2.16H, Sodium Level 140, Potassium Level 3.9, Chloride Level 107, Carbon Dioxide Level 26, Calcium Level 9.2, RR-Vmf-D-Type Natriuretic Peptide 3988H CBC/BMP Laboratory Tests 01/17/19 15:42 Red Blood Count 3.38 L, Mean Corpuscular Volume 99.4 H, Mean Corpuscular Hemoglobin 32.8, Mean Corpuscular Hemoglobin Concent 33.0, Red Cell Distribution Width 14.9 H, Neutrophils (%) (Auto) 66.8 H, Lymphocytes (%) (Auto) 15.5 L, Monocytes (%) (Auto) 8.1 H, Eosinophils (%) (Auto) 8.0 H, Basophils (%) (Auto) 0.8, Neutrophils # (Auto) 6.0, Lymphocytes # (Auto) 1.4 L, Monocytes # (Auto) 0.7, Eosinophils # (Auto) 0.7 H, Basophils # (Auto) 0.1, Calcium Level 8.5 L, Total Creatine Kinase 119 10/13/19 05:40 Red Blood Count 3.44 L, Mean Corpuscular Volume 99.1 H, Mean Corpuscular Hemoglobin 32.0, Mean Corpuscular Hemoglobin Concent 32.3, Red Cell Distribution Width 14.9 H, Neutrophils (%) (Auto) 61.2, Lymphocytes (%) (Auto) 15.5 L, Monocytes (%) (Auto) 11.6 H, Eosinophils (%) (Auto) 10.2 H, Basophils (%) (Auto) 0.8, Neutrophils # (Auto) 5.9, Lymphocytes # (Auto) 1.5, Monocytes # (Auto) 1.1 H, Eosinophils # (Auto) 1.0 H, Basophils # (Auto) 0.1, Calcium Level 9.2 Microbiology Microbiology 01/17/19 Respiratory Virus Panel (PCR) (MANDIE) - Final, Complete 01/17/19 Blood Culture, Received Pending 01/17/19 Blood Culture, Received Pending KEIRA CORDOBA MD Jan 18, 2019 10:49
[2019-01-18] MEDS: TORSEMIDE 20 MG TAB PO SCH (13:53)
--- NOTE | 2019-01-18 14:33 | REP ---
REASON: Acute kidney injury. COMPARISON: None. RENAL ULTRASOUND: FINDINGS: Multiple ultrasonographic images of the right kidney show the right kidney to measure 11.2 x 5.4 x 4.7 cm. The renal cortical echotexture is unremarkable. There are no masses. There is good corticomedullary differentiation. There is no hydronephrosis. There are no perinephric fluid collections. Multiple ultrasonographic images of the left kidney show the left kidney to measure 11.6 x 4.5 x 5.3 cm. The renal cortical echotexture is unremarkable. There are no masses. There is good corticomedullary differentiation. There is no hydronephrosis. There are no perinephric fluid collections. Incidental renal cortical cysts are seen. Two on the right in the inferior pole, the largest measuring 1.7 cm and one on the left in the superior pole measuring 7 mm. The urinary bladder was empty. As such, evaluation for urojet phenomena could not be obtained. IMPRESSION: Unremarkable renal ultrasonography. Electronically Signed by Vivek Euceda DO 01/18/2019 04:50 P
--- NOTE | 2019-01-18 15:00 | CR ---
DATE OF CONSULTATION: 01/18/2019 REQUESTING PHYSICIAN: Dr. Catie Zambrano. CONSULTING PHYSICIAN: Dr. Power. REASON FOR CONSULTATION: Management of acute kidney injury superimposed on chronic kidney disease and optimization of volume status. CHIEF COMPLAINT: Patient was admitted on 01/17/2019 for congestive heart failure and loculated right-sided pleural effusion. HISTORY OF PRESENT ILLNESS: Newton Bernard is a 73-year-old male with complex medical history of chronic kidney disease stage III, with a baseline creatinine of around 1.9, history of diastolic congestive heart failure, coronary artery disease, multiple other comorbidities, as mentioned below. He was admitted under the hospitalist service yesterday for diastolic congestive heart failure and healthcare-associated pneumonia with right-sided loculated pleural effusion. He was started on broad-spectrum intravenous (IV) antibiotics, which included cefepime and vancomycin. He was also started on Lasix 40 mg IV. His creatinine on admission was 1.8. Nephrology service was called because his creatinine bumped up to 2.1 despite getting Lasix and his BNP is still high. I saw and evaluated the patient today morning at the bedside. He still reports intermittent cough with some phlegm. He does report mild amount of shortness of breath. He denies any lower extremity edema. PAST MEDICAL HISTORY: 1. Chronic kidney disease stage III, baseline creatinine of around 1.9. 2. History of severe aortic stenosis status post aortic valve replacement. 3. History of coronary artery disease status post coronary artery bypass grafting. 4. Diabetes mellitus type 2. 5. Obstructive sleep apnea. 6. Diastolic congestive heart failure. 7. History of recurrent right-sided pleural effusions. 8. History of cardiac arrest times two in the hospital. 9. History of acute kidney injury in the past requiring continuous venovenous hemodialysis (CVVHD). 10. History of atrial fibrillation in the past. 11. Methicillin-resistant Staphylococcus aureus (MRSA) pneumonia in the past. 12. Methicillin-resistant Staphylococcus aureus (MRSA) bacteremia in the past. 13. History of squamous cell carcinoma of the skin. 14. Depression. 15. Malignant melanoma removal from the back about 10 to 11 years ago. PAST SURGICAL HISTORY: 1. History of back surgery in 2004. 2. Left eye cataract surgery. 3. Coronary artery bypass grafting; six grafts were done in the past. 4. Aortic valve replacement. Patient required continuous venovenous hemodiafiltration (CVVHDF) in the past. ALLERGIES: Patient is allergic to CUCUMBERS, PENICILLIN, STATINS, CODEINE, DULOXETINE, and METFORMIN. FAMILY HISTORY: There is no significant family history of end-stage renal disease requiring hemodialysis. There is history of heart disease in the father and cancer and diabetes in mother SOCIAL HISTORY: Patient denies any fever, smoking, drug abuse or alcohol abuse. REVIEW OF SYSTEMS: CONSTITUTIONAL: Patient denies any fevers at this time, but he did report fever and malaise at home. EYES: She denies any blurry vision, double vision. EARS, EYES, NOSE AND THROAT (ENT): Denies any dysphagia, odynophagia, ear discharge. CARDIOVASCULAR: He reported edema on presentation; however, he denies any edema at this time. RESPIRATORY: He does report cough and some phlegm and shortness of breath. GASTROINTESTINAL (GI): Denies any nausea, vomiting or diarrhea. GENITOURINARY: Denies any dysuria or hematuria. MUSCULOSKELETAL: He denies any muscle aches and pains. SKIN: He denies any rashes or ulcers. HEMATOLOGY/ONCOLOGY: He denies any easy bleeding or bruising. All other review of systems is negative. PHYSICAL EXAMINATION: GENERAL: Patient is awake, alert, oriented times three, laying in bed in no apparent distress. VITAL SIGNS: Temperature is 97.9 degrees Fahrenheit, blood pressure 108/61, pulse is 70, respiratory rate of 18, saturating 90% on room air. HEAD AND NECK EXAM: Extraocular muscles intact. Pupils equally round and reactive to light. Mucous membranes are moist. Neck is supple. There is mildly elevated jugular venous distention (JVD). CARDIOVASCULAR: S1, S2. Regular rate. No edema of the bilateral lower extremities. RESPIRATORY: Mildly decreased breath sounds at the bases with the mild expiratory rhonchi bilaterally at the bases. ABDOMEN: Soft. Positive bowel sounds. Old surgical scars in the abdomen. No organomegaly noted. GENITOURINARY: Bladder is not palpable. There is no hernia noted. MUSCULOSKELETAL: No clubbing or cyanosis. Pulses are 2+. CENTRAL NERVOUS SYSTEM (APPRENTICE MACHINIST OUTSIDE): No focal deficit. Power is 5/5 in all extremities. PSYCHIATRIC: Normal mood and affect. LABORATORY REVIEW: Complete blood count (CBC) showed a WBC 9.7, hemoglobin is 11, platelets of 162. INR is 2.36. Basic metabolic panel (BMP) showed sodium 140, potassium 3.9, chloride 107, bicarbonate 26, BUN 42, creatinine is 2.1, it was is 1.8 yesterday and glucose is 137, calcium is 9.2. BNP is 3988. Procalcitonin is pending. MICROBIOLOGY: Respiratory viral panel is negative. Blood cultures are pending. IMAGING STUDIES: A chest x-ray was done yesterday, which showed right lower lobe pneumonia with possible loculated pleural effusion, cardiomegaly. Renal ultrasound: Ultrasound was done today morning. Official report is pending. I see a cyst in each kidney. I would could not appreciate any hydronephrosis on the ultrasound. CURRENT PATIENT MEDICATIONS: The patient is currently on: - cefepime 1 gram IV every 12 hours - vancomycin 500 mg IV; one dose was given yesterday and 1 gram was given today - amlodipine 5 mg; one dose yesterday - aspirin 81 mg daily - Celexa 10 mg at bedtime - Colace 100 mg by mouth twice a day - Lasix 40 mg IV; one dose was given yesterday. - gabapentin 100 mg at bedtime - glipizide 5 mg by mouth twice a day - insulin sliding scale - metoprolol tartrate 50 mg by mouth twice a day. - He has been started on torsemide 20 mg by mouth daily - warfarin 4 mg by mouth daily is on hold. ASSESSMENT: A 73-year-old male with history of diabetes mellitus type 2, hypertension, diastolic congestive heart failure and recurrent pneumonia and right-sided pleural effusion with acute kidney injury superimposed on chronic kidney disease stage III. PLAN: 1. Acute kidney injury superimposed on chronic kidney disease stage III. Clinically, it is difficult to assess patient's volume status. Patient does not look volume overloaded to me at this time. There is no lower extremity edema. I would avoid aggressive IV diuresis at this time. I have restarted his home dose of torsemide 20 mg daily. Continue to monitor intake and output. Patient is not on any other nephrotoxic medications. 2. Recurrent right-sided lower lobe pneumonia with loculated pleural effusion. Patient is currently on vancomycin and cefepime. Dose is adequate for renal function. Okay to continue current medications. Cultures are pending. 3. History of atrial fibrillation. Heart rate is controlled. Anticoagulation management is as per primary team. Continue current dose of metoprolol 50 mg by mouth twice a day. 4. History of hypertension with hypertensive heart disease and chronic kidney disease. Continue current dose of diuretic and metoprolol. He was given a dose of amlodipine yesterday. Blood pressure is optimal at this time. 5. Anemia in chronic kidney disease. Hemoglobin is stable at 11. No need of erythropoiesis-stimulating agents (LALITHA) at this time. 6. Diabetes mellitus type 2. Avoid use of metformin. Continue glipizide and insulin sliding scale. Thank you for involving me in the care of this patient. I shall be happy to follow the patient along with you tomorrow morning.
[2019-01-18 16:19] LABS: APPEARANCE, URINE HAZY (CLEAR); BACTERIA, URINE AUTO NEGATIVE (NEGATIVE); BILIRUBIN, URINE AUTO NEGATIVE (NEGATIVE); BLOOD, URINE BLOOD 3+ (NEGATIVE); COLOR, URINE YELLOW (YELLOW); GLUCOSE, URINE (UA) AUTO 1+ mg/dL (NEGATIVE); KETONE, URINE AUTO TRACE mg/dL (NEGATIVE); LEUKOCYTE ESTERASE, URINE AUTO TRACE (NEGATIVE); MUCUS, URINE SMALL (NEGATIVE); NITRITE, URINE AUTO NEGATIVE (NEGATIVE); PROTEIN, URINE AUTO 2+ mg/dL (NEGATIVE); RBC, URINE AUTO 116 /HPF (0-3); SPECIFIC GRAVITY URINE AUTO 1.015 (1.002-1.035); SQUAMOUS EPITHELIAL CELL UR AU 0 /HPF (0-6); UROBILINOGEN, URINE AUTO 0.2 mg/dL (0.0-2.0); WBC, URINE AUTO 15 /HPF (0-3)
--- NOTE | 2019-01-18 18:56 | ECGEPIP ---
[facility] - ED Test Date: 2019-01-17 Pat Name: MARTHA LOPEZ Department: Room: - Gender: Male Ct Technologist: ZEFERINO : 1945 Requested By: Geoffrey Berkowitz Order Number: [id number] Reading MD: Prasanth Cooper Measurements Intervals West Rate: 68 P: 62 NJ: 193 QRS: -52 QRSD: 102 T: 81 QT: 439 QTc: 467 Interpretive Statements SINUS RHYTHM WITH OCCASIONAL ECTOPIC PREMATURE COMPLEXES LAD consider LAFB or inferior infarct Delayed anterior R wave progression INFERIOR MYOCARDIAL INFARCTION, PROBABLY OLD Similar to tracing done 06-12-18 Electronically Signed on 01-18-2019 18:56:29 EDT by Prasanth Cooper
--- NOTE | 2019-01-18 20:39 | PHACANCOPD ---
PHARMACY VANCOMYCIN DOSING Pt Demographics Demographics Patient Age:73 , Weight:81.600 , Gender: male Adjusted Body Weight Date: 01/17/19, Adjusted Body Weight: Kg Events Past 24 Hours Events Past 24 Hours: NO: Dialysis, Diuretic Therapy, Change in CrCl, Fever, Elevation in WBC, Pending Diagnostics, Pending Procedures, Other Vancomycin Vancomycin Target Ranges: 15-20 mcg/ml Vancomycin Load Y/N: Yes Load Dose Date Time Vancomycin Load Dose: 1500mg Date: 01-17 Time: 2100 Vancomycin Dose Date: 01/18/19. Current Vancomycin Dose: [1000mg q24h] Intermittent Dosing?: No Labs Labs Item Value Date Time White Blood Count 9.7 10^3/uL 01/18/19 0540 Glomerular Filtration Rate 32.1 L 01/18/19 0540 Creatinine 2.16 MG/DL H 01/18/19 0540 Blood Urea Nitrogen 42 MG/DL H 01/18/19 0540 Vancomycin Level Trough 15.4 UG/ML 01/18/191953 Vital Signs Label Value Date Time Patient Temperature 98.1 degrees F 01/18/191999 Temperature Source Temporal 01/18/191999 Micro Microbiology 01/17/19 Respiratory Virus Panel (PCR) (MANDIE) - Final, Complete 01/17/19 Blood Culture - Preliminary, Resulted No growth after 24 hours . All specim... 01/17/19 Blood Culture - Preliminary, Resulted No growth after 24 hours . All specim... Creatinine Clearance Date:01/17/19. Creatinine Clearance: [~25]. Pending Labs Trough - @1999 Assessment and Plan Maintaining Current Dose?: Yes Reason for dose change: No Dose Change Pharmacist Note Pharmacist Note Date: 01/18/19. Pharmacist note:Trough of 15.4 is within target range. Will continue current dosing. Will continue to monitor and make adjustments as needed. SAGE [facility]ARM[facility]Y Jan 18, 2019 20:39
[2019-01-18] MEDS ORDERED: FUROSEMIDE 100 MG/10 ML VIAL (J1940) IV ONE (20:45)
[2019-01-18] MEDS ORDERED: VANCOMYCIN HCL 1,000 MG, VIAL MATE ADAPTER 1 EACH in D5W 250 ML IV SCH (21:00)
[2019-01-18] MEDS: CitaloPRAM (CeleXA) 20 MG TAB PO SCH (21:01)
[2019-01-18] MEDS: GABAPENTIN 100 MG CAP PO SCH (21:01)
[2019-01-19 04:00] VITALS: BP 135/70
[2019-01-19] MEDS: CEFEPIME HCL 1 GM in D5W MINI-BAG PLUS 50 ML IV SCH ×2 (05:50→17:30)
[2019-01-19 06:10] LABS: BASO # 0.1 10^3/uL (0.0-0.2); BASO % 1.1 % (0.0-1.0); EOS # 0.8 10^3/uL (0.0-0.5); EOS % 8.3 % (0.0-3.0); HEMATOCRIT 36.3 % (42.0-52.0); HEMOGLOBIN 11.8 g/dl (13.5-17.5); LYMPH # 1.3 10^3/uL (1.5-5.0); LYMPH % 14.3 % (24.0-44.0); MEAN CORPUSCULAR HEMOGLOBIN 31.6 pg (27.0-33.0); MEAN CORPUSCULAR HGB CONC 32.5 g/dl (32.0-36.5); MEAN CORPUSCULAR VOLUME 97.3 fl (80.0-96.0); NEUTROPHILS # 6.1 10^3/uL (1.5-8.5); NEUTROPHILS % 64.7 % (36.0-66.0); PLATELET COUNT, AUTOMATED 168 10^3/uL (150-450); RED BLOOD COUNT 3.73 10^6/uL (4.30-6.10); WHITE BLOOD COUNT 9.4 10^3/uL (4.0-10.0)
[2019-01-19 06:13] LABS: INR 2.34; PROTHROMBIN TIME 25.5 SECONDS (11.8-14.0)
[2019-01-19 06:21] LABS: CREATININE FOR GFR 2.43 MG/DL (0.70-1.30); POTASSIUM SERUM 3.6 MEQ/L (3.5-5.1)
[2019-01-19] MEDS: HumaLOG INSULIN (NovoLOG) PER UNIT SC SCH ×4 (07:30→20:32)
[2019-01-19 08:00] VITALS: BP 144/72
--- NOTE | 2019-01-19 09:16 | REP ---
CT chest without contrast: History: Loculated effusion/pneumonia. Comparison is made with chest x-ray from January 17, 2019. Comparison chest CT study June 12, 2018. Findings: There is a small amount of loculated appearing right pleural fluid in the major fissure posterolaterally. This it is a new finding. The previously noted free pleural effusions are no longer apparent. There is some thickening of the major fissure on the left but this is minimal. There is an infiltrate in the right middle lobe with some volume loss. This is improved from the June 12, 2018 prior study although not resolved. There are some air bronchograms here. There is fissural thickening in the minor fissure on the right as well. A kevin-fissural nodule is seen on page 58 of 111 in series 201 of today's study. Subsegmental discoid atelectasis is seen in both lower lobes. There is some linear fibrosis in the left lower lobe which is improved from June 12, 2018 prior study. No new infiltrate is appreciated. The patient status post median sternotomy and aortic valve replacement. Vascular calcification is again noted. There are scattered normal-sized mediastinal lymph nodes which are unchanged. Impression: Small loculated right pleural fluid in the major fissure. Improved infiltrate with air bronchograms and some volume loss right middle lobe. Improved bibasilar scarring and bibasilar infiltrates compared with the June 12, 2018 prior study. No new infiltrate is seen. Electronically Signed by Jesus Moser MD 01/19/2019 09:46 A
[2019-01-19] MEDS: ASPIRIN 81 MG ENTERIC TAB PO SCH (09:20)
[2019-01-19] MEDS: glipiZIDE (GLUCOTROL) 5 MG TAB PO SCH ×2 (09:20→17:30)
[2019-01-19] MEDS: DOCUSATE SODIUM 100 MG CAP PO SCH ×2 (09:20→21:00)
[2019-01-19] MEDS: METOPROLOL TART 50 MG TAB PO SCH ×2 (09:20→21:13)
[2019-01-19 12:00] VITALS: BP 135/69
--- NOTE | 2019-01-19 14:33 | IPNPDOC ---
Subjective Date Seen The patient was seen on 01/19/19. Subjective Chief Complaint/HPI No complaints at rest but easily gets fatigued and sob on exertion. continues to have hoarseness of voice and cough. No fever ro chills, Objective Physical Examination General Exam: Positive: Alert, Cooperative, No Acute Distress, Other (Still with conversational dyspnea but better than before. ) Eye Exam: Positive: PERRLA, Conjunctiva & lids normal, EOMI; Negative: Sclera icteric ENT Exam: Positive: Atraumatic, Mucous membr. moist/pink, Pharynx Normal Neck Exam: Positive: Supple; Negative: thyromegaly Chest Exam: Positive: Clear to auscultation Heart Exam: Positive: Rate Normal, Regular Rhythm, Normal S1, Normal S2; Negative: Murmurs, Rubs Telemetry: Positive: No significant arrhythmia Abdomen Exam: Positive: Normal bowel sounds, Soft; Negative: Tenderness, Hepatospenomegaly Extremity Exam: Positive: Normal pulses; Negative: Clubbing, Cyanosis, Edema Skin Exam: Positive: Lesion (right 5 th toe healing ulcer ) Neuro Exam: Positive: Normal Speech, Normal Tone, Cranial Nerves 3-12 NL, Reflexes 2+ Psych Exam: Positive: Oriented x 3 Assessment /Plan Assessment 73 year old male with extensive PMH of Severe Aortic stenosis s/p AVR, CAD s/p CABG, SIDNEY, pulmonary hypertension, CKD, Diabetes, Systolic CHF with EF or 40% prior to surgery , Now chronic diastolic CHF, Recurrent right Pleural effusions for 2 years, Witnessed Cardiac arrest in hospital x 2 in 02/17/2018 ( Vifib arrest and PEA) , s/p right chest tube first at [facility] in feb 2018, transferred to [facility] had urgent CABG ( 6 vessel), AVR with bioprosthetic valve 02-21-18, SHIVA on CKD requiring CVVHD, IABP, Bilateral chest tubes (removed on 04/10/18), tracheostomy, feeding tube, Critical illness myopathy, Afib started on coumadin at [facility], Discharged from hospital on 04/11/18, strokes in different distributions noted in MRI april noted while in ARU in [facility] (04/14/18) without any motor or sensory deficits, Multifocal MRSA pneumonia in Apr 2018, MRSA bacterimia then, Thrombocytopenia now resolved, Bilateral rib fractures, T12 vertebral body anterior compression, Squamous cell carcinoma of the skin, Has delayed recovery from anesthesia by history, Depression, Bilateral cataract surgeries and lens implant, Hoarseness of voice after the ROSEANN in april now resolved, Malignant melanoma removed from the back 10 to 11 years ago, right 5th toe osteomyelitis s/p amputation was told it was MRSA so was on daptomycin for 6 weeks in november and December 2018, recurrent admissions for episodes of right lower lobe pneumonia since April and diastolic CHF exacerbations and prolonged hospitalizations and rehab unit stays since February 2018 presented to the ED for recheck of abnormal blood work as was told by the nurse who does his INR check. Patient originally from [place] had moved down to [facility] 4 months ago. While down there he has had 5 admissions either for Pneumonia or CHF exacerbations or both and had also had OM of right 5 th toe reported by patient as was MRSA was on daptomycin for 6 weeks in November and December. Patient did not like it there and he and his are in the process of moving back up here. He was discharged last week 01/09/19 from the hospital in [place] where he was treated for pneumonia and fluids. He had blood work done this week for his INR and was told by the nurse that his blood count was very low that he should go to the hospital . As he was coming up here so he delayed 2 days and came to the hospital here. He also noted that he has been having a bothersome cough for the past week with some phlegm production and he has been getting progressively SOB on mild exertion. He also said he had some low grade fever at home. CXR here in the ED showed loculated pleural effusion with right lower lobe infiltrates. His Pro bnp is elevated, He was admitted for HCAP and Diastolic CHF exacerbation. Diastolic CHF exacerbation patient is Euvolemic at present CT chest reviewed with Dr Mendoza minimal loculated effusion. Torsemide held as creatinine rising. though pro bnp elevated. daily weights, I/O and fluid restriction of 1.5 liters. Questionable HCAP with h/o MRSA pneumonia and bacteremia earlier this year blood cultures and sputum cultures sent vanco dosage to be adjusted by pharmacy However CT chest shows : Improved infiltrate with air bronchograms and some volume loss right middle lobe. Improved bibasilar scarring and bibasilar infiltrates compared with the June 12, 2018 prior study. No new infiltrate is seen. Also procalcitonin is only 0.05 I am unsure whether he actually has a pneumonia or not. will consult ID tomorrow will continue cefepime and vanco for now. Hoarseness and persistent SOab on exertion will sent for ENT evaluation for vocal cord issues. Dr Casillas consulted Pleural effusion recurrent with chest tubes from feb to apr had resolved as per xray in august [address] CT chest with minimal loculated effusion. Small loculated right pleural fluid in the major fissure. Not enough to cause SOB or to be tapped. SHIVA on CKD stage 3 creatinine on the rise. Diuretics held ? overdiuresis consulted nephrology. Diabetes continue glipizide and lispro as per sliding scale Atrial fibrillation on coumadin and betablocker for rate control will restart coumadin. INR therapeutic. Hypertension continue metoprolol CAD/ CABG continue asa, betablocker. allergic to statins. h/o CVA continue asa and coumadin Full code. Plan/VTE VTE Prophylaxis Ordered?: Yes VS, I&O, 24H, Fishbone Vital Signs/I&O Vital Signs Date Time Temp Pulse Resp B/P (MAP) Pulse Ox O2 Delivery O2 Flow Rate FiO2 01/19/19 12:00 96.9 63 18 135/69 (91) 96 01/17/19 20:28 Room Air I&O- Last 24 Hours up to 6 AM 01/19/19 06:00 Intake Total 1460 ml Output Total 1580 ml Balance -120 ml Laboratory Data 24H LABS Laboratory Tests 2 01/18/19 15:59: Urine Color YELLOW, Urine Appearance HAZY, Urine pH 5.0, Urine Specific [place] 1.015, Urine Protein 2+H, Urine Glucose (Auto)(UA) 1+H, Urine Ketones (Auto) TRACEH, Urine Blood 3+H, Urine Nitrite NEGATIVE, Urine Bilirubin NEGATIVE, Urine Urobilinogen 0.2, Urine Leukocyte Esterase (Auto) TRACEH, Urine WBC (Auto) 15H, Urine RBC (Auto) 116H, Urine Hyaline Casts (Auto) 5, Urine Bacteria (Auto) NEGATIVE, Urine Squamous Epithelial Cells 0, Urine Mucus (Auto) SMALL, Urine Sperm (Auto) 01/18/19 17:21: Bedside Glucose (Misc Panel) 146H 01/18/19 19:54: Vancomycin Level Trough 15.4 01/18/19 20:50: Bedside Glucose (Misc Panel) 171H 01/19/19 05:35: Immature Granulocyte % (Auto) 0.6, White Blood Count 9.4, Red Blood Count 3.73L, Hemoglobin 11.8L, Hematocrit 36.3L, Mean Corpuscular Volume 97.3H, Mean Corpuscular Hemoglobin 31.6, Mean Corpuscular Hemoglobin Concent 32.5, Red Cell Distribution Width 14.7H, Platelet Count 168, Neutrophils (%) (Auto) 64.7, Lymphocytes (%) (Auto) 14.3L, Monocytes (%) (Auto) 11.0H, Eosinophils (%) (Auto) 8.3H, Basophils (%) (Auto) 1.1H, Neutrophils # (Auto) 6.1, Lymphocytes # (Auto) 1.3L, Monocytes # (Auto) 1.0H, Eosinophils # (Auto) 0.8H, Basophils # (Auto) 0.1, Nucleated Red Blood Cells % (auto) 0.0, Prothrombin Time 25.5H, Prothromb Time International Ratio 2.34, Anion Gap 8, Glomerular Filtration Rate 28.0L, Blood Urea Nitrogen 53H, Creatinine 2.43H, Sodium Level 138, Potassium Level 3.6, Chloride Level 103, Carbon Dioxide Level 27, Calcium Level 9.0, CK-Esi-Y-Type Natriuretic Peptide 3633H 01/19/19 14:10: CBC/BMP Laboratory Tests 01/19/19 05:35 Red Blood Count 3.73 L, Mean Corpuscular Volume 97.3 H, Mean Corpuscular Hemoglobin 31.6, Mean Corpuscular Hemoglobin Concent 32.5, Red Cell Distribution Width 14.7 H, Neutrophils (%) (Auto) 64.7, Lymphocytes (%) (Auto) 14.3 L, Monocytes (%) (Auto) 11.0 H, Eosinophils (%) (Auto) 8.3 H, Basophils (%) (Auto) 1.1 H, Neutrophils # (Auto) 6.1, Lymphocytes # (Auto) 1.3 L, Monocytes # (Auto) 1.0 H, Eosinophils # (Auto) 0.8 H, Basophils # (Auto) 0.1, Calcium Level 9.0 Microbiology Microbiology 01/17/19 Respiratory Virus Panel (PCR) (MANDIE) - Final, Complete 01/17/19 Blood Culture - Preliminary, Resulted No growth after 24 hours . All specim... 01/17/19 Blood Culture - Preliminary, Resulted No growth after 24 hours . All specim... KEIRA CORDOBA MD Jan 19, 2019 14:33
[2019-01-19 16:00] VITALS: BP 164/82
[2019-01-19 20:00] VITALS: BP 158/79
[2019-01-19] MEDS: CitaloPRAM (CeleXA) 20 MG TAB PO SCH (21:13)
[2019-01-19] MEDS: GABAPENTIN 100 MG CAP PO SCH (21:13)
[2019-01-19 23:59] VITALS: BP 157/83
[2019-01-20 04:00] VITALS: BP 135/72
[2019-01-20] MEDS: CEFEPIME HCL 1 GM in D5W MINI-BAG PLUS 50 ML IV SCH (05:17)
[2019-01-20 05:43] LABS: BASO % 0.5 % (0.0-1.0); EOS # 0.7 10^3/uL (0.0-0.5); EOS % 8.7 % (0.0-3.0); HEMOGLOBIN 10.5 g/dl (13.5-17.5); LYMPH # 1.1 10^3/uL (1.5-5.0); LYMPH % 14.1 % (24.0-44.0); MEAN CORPUSCULAR HEMOGLOBIN 32.4 pg (27.0-33.0); MEAN CORPUSCULAR HGB CONC 32.8 g/dl (32.0-36.5); MEAN CORPUSCULAR VOLUME 98.8 fl (80.0-96.0); MONO # 0.9 10^3/uL (0.0-0.8); MONO % 11.7 % (0.0-5.0); NEUTROPHILS # 5.1 10^3/uL (1.5-8.5); NEUTROPHILS % 64.5 % (36.0-66.0); PLATELET COUNT, AUTOMATED 122 10^3/uL (150-450); RED BLOOD COUNT 3.24 10^6/uL (4.30-6.10); WHITE BLOOD COUNT 7.9 10^3/uL (4.0-10.0)
[2019-01-20 05:53] LABS: INR 2.26; PROTHROMBIN TIME 24.8 SECONDS (11.8-14.0)
[2019-01-20 06:14] LABS: CALCIUM LEVEL 8.3 MG/DL (8.8-10.2); CREATININE FOR GFR 2.51 MG/DL (0.70-1.30); POTASSIUM SERUM 3.7 MEQ/L (3.5-5.1)
--- NOTE | 2019-01-20 07:34 | IPN ---
DATE: 01/19/2019 SUBJECTIVE: The patient was seen and examined the bedside today morning. The patient is afebrile, hemodynamically stable reports that his cough is slightly better today as compared with yesterday. His procalcitonin level came back negative yesterday so he was given another dose of Lasix 60 mg IV for poor urine output. He did respond to the diuretics. However, his renal function is slightly worse today as compared with yesterday. OBJECTIVE: Vital signs: Temperature is 97 degrees Fahrenheit, blood pressure is 144/72, pulse is 67, respiratory of 16, saturating 95% on room air. Intake and output urine output recorded is of 1.7 liters yesterday 938 mL so far today since overnight. Weight in the bed scale is 81.5. PHYSICAL EXAMINATION: General: The patient is awake, alert, oriented times 3, laying in the bed in no apparent distress. Head and neck exam extraocular muscles intact. Pupils equally round and reactive to light. Mucous membranes are moist. Neck is supple. There is moderately elevated JVD. Cardiovascular: S1-S2 regular rate. No edema of the bilateral lower extremities. Respiratory: Mildly decreased breath sounds at the right base with a mild ache respiratory crackles. Abdomen: Soft, positive bowel sounds. Nontender. No organomegaly. Musculoskeletal: No clubbing or cyanosis. Pulses are 2+. [employer]: No focal deficit power is 5/5 in all extremities. LAB REVIEW: CBC showed WBC 9.4, hemoglobin is 11.8, platelets of 168. BMP showed sodium 138, potassium 3.6, chloride 103, bicarb 27, BUN 53, creatinine is 2.4, calcium is 9, BMP is 3633. Microbiology blood cultures are negative. Respiratory viral panel is negative. IMAGING STUDIES: A CT of the chest was done today showed a small loculated right pleural fluid in the major fissure. CURRENT INPATIENT MEDICATIONS: The patient's medications were all reviewed by me. He continues and IV vancomycin and cefepime his torsemide was held today morning new ASSESSMENT: 1. Acute kidney injury superimposed on chronic kidney disease stage III. Most likely secondary to use of diuretic, diuretic is being held today. 2. Right-sided loculated effusion. The patient is empirically being treated with vancomycin and cefepime procalcitonin level is negative decision to stop the antibiotic is as per primary team. 3. Hypertension with hypertensive heart disease. Continue current dose of metoprolol diuretic is being held. 4. Diabetes mellitus type 2. Continue glipizide and insulin sliding scale. MTDD
[2019-01-20 08:00] VITALS: BP 151/90
[2019-01-20] MEDS: METOPROLOL TART 50 MG TAB PO SCH ×2 (09:14→20:16)
[2019-01-20] MEDS: DOCUSATE SODIUM 100 MG CAP PO SCH ×2 (09:15→20:18)
[2019-01-20] MEDS: HumaLOG INSULIN (NovoLOG) PER UNIT SC SCH ×4 (09:15→21:00)
[2019-01-20] MEDS: glipiZIDE (GLUCOTROL) 5 MG TAB PO SCH ×2 (09:15→16:33)
[2019-01-20] MEDS: ASPIRIN 81 MG ENTERIC TAB PO SCH (09:15)
[2019-01-20] MEDS: TORSEMIDE 20 MG TAB PO SCH (09:16)
--- NOTE | 2019-01-20 11:54 | CR ---
DATE OF CONSULTATION: 01/19/2019 REFERRING PHYSICIAN: Dr. Catie Zambrano INDICATION: Coronary artery disease, congestive heart failure. HISTORY OF PRESENT ILLNESS: Mr. Pabon is known to me. He is a pleasant man who has a rather extensive and scary past medical and surgical history. He has advanced coronary artery disease and presented in February 2018 with cardiac arrest. He was resuscitated, transferred to [facility] ([facility]) where he underwent initially cardiac catheterization and then heart surgery with bypass times six and aortic valve replacement with bioprosthesis. The postoperative course was very complicated by numerous problems including pleural effusions, congestive heart failure, renal failure that temporarily required hemodialysis but eventually he slowly recovered and returned to our facility. When I saw him last time he was doing actually reasonably well but then he moved to the [facility] where he says that he spent four months. Unfortunately, he was not well and most of that time was spent in the hospital. He says that he had five hospitalizations for congestive heart failure and pneumonia. Ultimately though he returned last week and almost immediately ended up in hospital with a cough, expectoration and shortness of breath. It was felt that he was in congestive heart failure, was given intravenous (IV) diuretics which led to deterioration of his renal function. A CT of the chest though revealed evidence for fluid in his right middle fissure (a major fissure) and associated infiltrate that is not overly large. There is no convincing evidence for congestive heart failure by chest x-ray. His heart has been chronically enlargement but I do not appreciate any pleural effusions or venous redistribution. PAST MEDICAL HISTORY: 1. Coronary artery disease as above. He had an echocardiogram in our facility in April 2018 that I interpreted. It revealed preserved left ventricular systolic function, left ventricular hypertrophy, grade 2 diastolic dysfunction, mild mitral and tricuspid insufficiency and moderate pulmonary hypertension. 2. History of aortic valve replacement (normal valvular function based on echo 04/2018). 3. Chronic renal insufficiency with baseline creatinine around two. 4. Type 2 diabetes. 5. Obstructive sleep apnea (SIDNEY). 6. Hypertension. 7. Dyslipidemia. 8. Recurrent history of pneumonia. 9. History of squamous cell carcinoma of the skin. 10. History of malignant melanoma of back. 11. Depression. PAST SURGICAL HISTORY: 1. Leg surgery with resection of melanoma as above. 2. Cataract surgery. 3. Bypass surgery and aortic valve replacement. 4. Placement of dialysis catheter and its eventual removal. ALLERGIES: PENICILLIN, STATINS, CODEINE, DULOXETINE and METFORMIN. Also reports allergy to CUCUMBERS. FAMILY HISTORY: Positive for coronary artery disease in father, his mother was a diabetic. SOCIAL HISTORY: The patient is , lives with his . There has been no recent smoking or alcohol use. REVIEW OF SYSTEMS: He denies any recent fever that he is aware of. He did have some chills. He did not have chest discomfort but he has at his baseline [place] [employer] Class III dyspnea. No syncope, no palpitations, no near-syncope. No abdominal pain. No recent history of bleeding. No significant peripheral edema. At his baseline he is able to ambulate with a cane at least a block, possibly more as long as he does not go very fast. OUTPATIENT MEDICATIONS: - Amlodipine 5 mg daily as needed for blood pressure over 150 - aspirin 81 mg a day - vitamin D3 - citalopram 20 mg a day - Echinacea 380 mg twice a day - gabapentin 100 mg at bedtime - glipizide 10 mg in the morning, 5 mg at night - metoprolol 50 mg twice a day - potassium 99 mg daily - torsemide 20 mg daily - warfarin PHYSICAL EXAMINATION: Mr. Pabon is an elderly man who appears approximately his age. He appears chronically ill but not acutely ill. He is lying in the progressive care unit (PCU) bed completely flat and without any distress. VITAL SIGNS: Last set of vital signs reveal blood pressure 164/82, heart rate has been in the 60s, he is afebrile. Saturation 95% on room air. Weight is documented 81.5 kg. He is alert and oriented appropriate. NECK: His jugular venous pulse (JVP) does not look elevated. There is a scar after recent port removal. LUNGS: Lungs are clear. Good air movement. No wheezing, crackles or rhonchi are appreciated. HEART: Exam reveals regular rhythm. I would do not appreciate a gallop or rub. There is a faint murmur over the aortic valve area, may be 1/6 intensity, the second heart sound is preserved. ABDOMEN: Abdomen is soft, nontender. No hepatosplenomegaly. EXTREMITIES: Extremities are free of edema. Peripheral pulses are palpable on both lower extremities. NEUROLOGICALLY: He is intact. I do not appreciate any ecchymoses or large skin lesions. LABORATORY DATA: Hemoglobin 11.8, hematocrit 36, platelet count is 168,000, WBC count 9.4. Basic metabolic panel: Sodium 138, potassium 3.6, BUN 53, creatinine 2.4 which has worsened compared to admission BUN 40, creatinine 1.8. INR is therapeutic at 2.3. IMAGING: ECG reveals the presence of sinus rhythm with left anterior fascicular hemiblock and no significant repolarization abnormalities. Chest x-ray as per history of present illness (HPI). CT of the chest revealed an infiltrate in right middle lobe and fluid in the right major fissure but no pleural effusions and no convincing evidence for congestive heart failure. ASSESSMENT/PLAN: Mr. Pabon is an elderly man who has extensive vascular disease with history of bypass surgery, aortic valve replacement in February last year. At this point I do not appreciate any clear-cut evidence for volume overloaded state and I agree with Dr. Power that a return to his baseline diuretic use should be pursued. The acute deterioration of renal function is potentially due to over diuresis, but one has to consider also potential toxicity related to his underlying infection. There is nothing in his story to suggest that there is ongoing ischemia. I do not believe that there needs to be any adjustments made from a cardiac perspective, I will bring him back for regular followup in our clinic. I do not think that there is much else I can contribute at this moment. Please call me back if further assistance is desired.
[2019-01-20 12:00] VITALS: BP 121/72
--- NOTE | 2019-01-20 14:21 | IPNPDOC ---
Date Seen The patient was seen on 01/20/19. Progress Note NEPHROLOGY SERVICE PROGRESS NOTE: SUBJECTIVE: Patient seen and examined at the bedside this morning. He is still coughing and bringing up a lot of mucus. He does subjectively feel better. He does also notice some wheezing with his breathing. OBJECTIVE PHYSICAL EXAMINATION: VITAL SIGNS: Please see below. GENERAL: laying in bed, appears stated age, calm, cooperative, in no acute distress HEENT: EOMI, PERRLA, normocephalic/atraumatic, neck is supple with no lymphadenopathy or thyromegaly CARDIOVASCULAR: JVD is elevated, regular rate and rhythm, no murmurs/rubs/gallops RESPIRATORY: Crackles are appreciated bilaterally with otherwise no adventitious breath sounds ABDOMINAL: nontender to palpation; No guarding or rebound tenderness; +BS and no masses/organomegaly appreciated. EXTREMITIES: no clubbing/cyanosis/edema NEUROLOGICAL: CN 2-12 intact with no obvious focal deficits PSYCHOLOGICAL: AAOx3, normal mood/affect LABORATORY DATA, IMAGING STUDIES, MICROBIOLOGY: Please see below. ASSESSMENT AND PLAN: This is a 73 YO M with history of CKD III found to have R- sided loculated effusion and SHIVA PROBLEMS: 1. Acute on chronic kidney disease III: -Resume Torsemide and will give 60mg IV Lasix today as the patient still seems fluid overloaded (elevated JVD and crackles in his lungs). Once fluid status is optimized, he can resume home diuretic dosage -BNP elevation most likely 2/2 superimposed CHF -He is currently making good urine 2. R-sided loculated pleural effusion: -Treating empirically with Vancomycin and Cefepime although the procalcitonin level is low. This is up to the primary team to decide 3. HTN: BPs are within acceptable range -Continue Metoprolol 4. DM2: -Continue Glipizide and SSI DISPOSITION: pending improvement in volume status VS, I&O, 24H, Fishbone Vital Signs/I&O Vital Signs Date Time Temp Pulse Resp B/P (MAP) Pulse Ox O2 Delivery O2 Flow Rate FiO2 01/20/19 09:14 95 151/90 01/20/19 08:00 97.5 20 99 01/17/19 20:28 Room Air I&O- Last 24 Hours up to 6 AM 01/20/19 06:00 Intake Total 840 ml Output Total 975 ml Balance -135 ml Laboratory Data 24H LABS Laboratory Tests 2 01/19/19 17:23: Bedside Glucose (Misc Panel) 188H 01/19/19 20:05: Bedside Glucose (Misc Panel) 195H, Vancomycin Level Trough 21.0H 01/20/19 05:14: Immature Granulocyte % (Auto) 0.5, White Blood Count 7.9, Red Blood Count 3.24L, Hemoglobin 10.5L, Hematocrit 32.0L, Mean Corpuscular Volume 98.8H, Mean Corpuscular Hemoglobin 32.4, Mean Corpuscular Hemoglobin Concent 32.8, Red Cell Distribution Width 14.9H, Platelet Count 122L, Neutrophils (%) (Auto) 64.5, Lymphocytes (%) (Auto) 14.1L, Monocytes (%) (Auto) 11.7H, Eosinophils (%) (Auto) 8.7H, Basophils (%) (Auto) 0.5, Neutrophils # (Auto) 5.1, Lymphocytes # (Auto) 1.1L, Monocytes # (Auto) 0.9H, Eosinophils # (Auto) 0.7H, Basophils # (Auto) 0.0, Nucleated Red Blood Cells % (auto) 0.0, Prothrombin Time 24.8H, Prothromb Time International Ratio 2.26, Anion Gap 8, Glomerular Filtration Rate 27.0L, B lood Urea Nitrogen 64H, Creatinine 2.51H, Sodium Level 141, Potassium Level 3.7, Chloride Level 109H, Carbon Dioxide Level 24, Calcium Level 8.3L CBC/BMP Laboratory Tests 01/20/19 05:14 Red Blood Count 3.24 L, Mean Corpuscular Volume 98.8 H, Mean Corpuscular Hemoglobin 32.4, Mean Corpuscular Hemoglobin Concent 32.8, Red Cell Distribution Width 14.9 H, Neutrophils (%) (Auto) 64.5, Lymphocytes (%) (Auto) 14.1 L, Monocytes (%) (Auto) 11.7 H, Eosinophils (%) (Auto) 8.7 H, Basophils (%) (Auto) 0.5, Neutrophils # (Auto) 5.1, Lymphocytes # (Auto) 1.1 L, Monocytes # (Auto) 0.9 H, Eosinophils # (Auto) 0.7 H, Basophils # (Auto) 0.0, Calcium Level 8.3 L Microbiology Microbiology 01/17/19 Respiratory Virus Panel (PCR) (MANDIE) - Final, Complete 01/17/19 Blood Culture - Preliminary, Resulted No Growth after 48 hours. All Specime... 01/17/19 Blood Culture - Preliminary, Resulted No Growth after 48 hours. All Specime... GME ATTESTATION GME ATTESTATION My faculty preceptor for this patient encounter was physically present during the encounter and was fully available. All aspects of the patient interview, examination, medical decision making process, and medical care plan development were reviewed and approved by the faculty preceptor. The faculty preceptor is aware and concurs with the plan as stated in the body of this note and will attest to such by his/her cosignature. MARGARET AYALA MD Jan 20, 2019 14:21
[2019-01-20] MEDS ORDERED: FUROSEMIDE 100 MG/10 ML VIAL (J1940) IV ONE (14:30)
--- NOTE | 2019-01-20 14:35 | IPNPDOC ---
Text Note Date of Service The patient was seen on 01/20/19. NOTE ENT Patient with complex medical history, including CHF, pleural effussion, pneumonia. S/P cardiac surgery and transesophogeal procedure, but states his voice changed after this. Now it is breathy and he is slightly dyspneic He has a chronic cough. No neck surgery or pain. 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 This has created the dysphonia. No intervention needed. As he regains his strength and positvie nitrogen balance, vocal quality will improve VS,Fishbone, I+O VS, Fishbone, I+O Laboratory Tests 01/20/19 05:14 Red Blood Count 3.24 L, Mean Corpuscular Volume 98.8 H, Mean Corpuscular Hemoglobin 32.4, Mean Corpuscular Hemoglobin Concent 32.8, Red Cell Distribution Width 14.9 H, Neutrophils (%) (Auto) 64.5, Lymphocytes (%) (Auto) 14.1 L, Monocytes (%) (Auto) 11.7 H, Eosinophils (%) (Auto) 8.7 H, Basophils (%) (Auto) 0.5, Neutrophils # (Auto) 5.1, Lymphocytes # (Auto) 1.1 L, Monocytes # (Auto) 0.9 H, Eosinophils # (Auto) 0.7 H, Basophils # (Auto) 0.0, Calcium Level 8.3 L Vital Signs Date Time Temp Pulse Resp B/P (MAP) Pulse Ox O2 Delivery O2 Flow Rate FiO2 01/20/19 09:14 95 151/90 01/20/19 08:00 97.5 20 99 01/17/19 20:28 Room Air I&O- Last 24 Hours up to 6 AM 01/20/19 06:00 Intake Total 840 ml Output Total 975 ml Balance -135 ml VIRIDIANA PATEL MD Jan 20, 2019 14:35
[2019-01-20 16:00] VITALS: BP 160/92
--- NOTE | 2019-01-20 16:27 | IPN ---
DATE OF SERVICE: 01/20/2019 SUBJECTIVE: Patient denies any chest pain, pressure or tightness. Shortness of breath is significantly improved. Patient has dry cough at the moment. No fever or chills overnight. VITAL SIGNS: Temperature 97.5, pulse 95, respiratory rate 20, blood pressure 151/90, 99% on room air. Generally awake, alert, oriented to person, place and time, answering questions appropriately. No use of respiratory accessory muscles. No jugular venous distention. No carotid bruits. No stridor. Lungs are clear to auscultation. No wheezing, rales or rhonchi. Heart: S1, S2. Systolic ejection murmur in the aortic area. Abdomen is soft, nontender, nondistended. Positive bowel sounds times four quadrants. No hepatosplenomegaly. No abdominal bruits. No rebound or guarding. Extremities: No cyanosis, clubbing or pitting edema. LABORATORY DATA: White count 7.9, hemoglobin 10, hematocrit 32, platelet count 122. Sodium 141, potassium 3.7, chloride 109, bicarbonate 24, BUN 64, creatinine 2.5, glucose of 135. INTAKE AND OUTPUT: Input of 1020, output 1355, negative 335. Current weight is 82.4 from previous weight of 81.5 kg. CURRENT HOSPITAL MEDICATIONS: - aspirin - torsemide - glipizide - lispro insulin - cefepime - Colace - Celexa - Neurontin - metoprolol - hyperglycemic protocol warfarin 4 mg daily - vancomycin (is dosed by pharmacy according to patient's renal function) INR is 2.26. ASSESSMENT AND PLAN: This is a 73-year-old male admitted for shortness of breath, chest x-ray in the emergency room (ER) showed loculated pleural effusion in the right lower lobe, with dyspnea on exertion admitted for questionable HCAP and diastolic congestive heart failure (CHF) exacerbation currently on vancomycin and cefepime since 01/17/2019. IMPRESSION: 1. Congestive heart failure, diastolic and systolic dysfunction, ejection fraction (EF) of 40%, acute exacerbation. Currently managed by solid surface fabricator Dr. Power due to acute on chronic renal failure. Remains net negative balance with clear lungs at this time. He is currently on strict intake and output, daily weights and fluid restriction. Patient had a history of bypass surgery with aortic valve replacement in February. No coronary artery ischemia that is evident with this admission. Per Dr. Peng, patient may be discharged on his home dose of diuretics if okay with nephrology. 2. Acute on chronic renal failure, stage III, status post IV Lasix 60 mg. Patient is not exhibiting worsening features of renal failure. There is no metabolic acidosis, no hyperkalemia. He appears to be euvolemic at this time, had been diuresed well with net negative balance for the past 3 days. Defer to nephrology regarding further diuretics and per Dr. Peng okay to resume on home dose of diuretic. Current on torsemide 20 mg daily. 3. Coronary artery disease. Resumed on home dose of aspirin and metoprolol. 4. Type 2 diabetes. On insulin sliding scale for now. 5. Atrial fibrillation. On chronic Coumadin with therapeutic INR and currently controlled on metoprolol. 6. Hypertension. Controlled on metoprolol. 7. History of CVA. On aspirin and Coumadin. 8. Persistent right lower lobe loculated effusion. CT chest was reviewed by Dr. Mendoza and did not require any intervention. He is currently afebrile. No significant cough. No white count. Still on vancomycin and cefepime. Consult Infectious Disease, Dr. Cevallos regarding continuation of antibiotics versus stopping all antibiotics at this time. Respiratory panel and blood cultures are negative. 10. History of methicillin-resistant Staphylococcus aureus (MRSA). On contact precautions. [facility]
[2019-01-20] MEDS: WARFARIN SOD 4 MG TAB PO SCH (16:33)
[2019-01-20 16:34] LABS: C REACTIVE PROTEIN QUANTITATIV 2.11 MG/DL (0.00-0.30)
[2019-01-20 20:00] VITALS: BP 178/82
[2019-01-20] MEDS: GABAPENTIN 100 MG CAP PO SCH (20:15)
[2019-01-20] MEDS ORDERED: SLF 3 ML SYR IV PRN (20:15)
[2019-01-20] MEDS: CitaloPRAM (CeleXA) 20 MG TAB PO SCH (20:16)
[2019-01-20] MEDS: TRIAMCINOLONE ACET 0.1% OINTMENT 15 GM EXT SCH (22:25)
[2019-01-20] MEDS: SLF 3 ML SYR IV SCH (22:26)
[2019-01-20 23:59] VITALS: BP 184/87
[2019-01-21] MEDS ORDERED: amLODIPine 5 MG TAB PO ONE ×2 (02:00→08:00)
[2019-01-21 04:00] VITALS: BP 164/80
[2019-01-21] MEDS: SLF 3 ML SYR IV SCH ×3 (05:44→22:28)
[2019-01-21 06:05] LABS: BASO # 0.1 10^3/uL (0.0-0.2); BASO % 0.9 % (0.0-1.0); EOS # 0.7 10^3/uL (0.0-0.5); EOS % 9.2 % (0.0-3.0); HEMATOCRIT 31.5 % (42.0-52.0); HEMOGLOBIN 10.3 g/dl (13.5-17.5); LYMPH # 1.2 10^3/uL (1.5-5.0); LYMPH % 14.9 % (24.0-44.0); MEAN CORPUSCULAR HEMOGLOBIN 32.3 pg (27.0-33.0); MEAN CORPUSCULAR HGB CONC 32.7 g/dl (32.0-36.5); MEAN CORPUSCULAR VOLUME 98.7 fl (80.0-96.0); MONO # 1.1 10^3/uL (0.0-0.8); MONO % 13.3 % (0.0-5.0); NEUTROPHILS # 4.9 10^3/uL (1.5-8.5); NEUTROPHILS % 61.1 % (36.0-66.0); PLATELET COUNT, AUTOMATED 117 10^3/uL (150-450); RED BLOOD COUNT 3.19 10^6/uL (4.30-6.10)
[2019-01-21 06:16] LABS: INR 1.87; PROTHROMBIN TIME 21.3 SECONDS (11.8-14.0)
[2019-01-21 06:32] LABS: CALCIUM LEVEL 8.5 MG/DL (8.8-10.2); CREATININE FOR GFR 2.4 MG/DL (0.70-1.30); GLOMERULAR FILTRATION RATE 28.4 (>42); POTASSIUM SERUM 3.7 MEQ/L (3.5-5.1)
[2019-01-21 07:26] VITALS: BP 166/80
[2019-01-21] MEDS: HumaLOG INSULIN (NovoLOG) PER UNIT SC SCH ×4 (07:30→21:00)
[2019-01-21] MEDS ORDERED: ACETAMINOPHEN 500 MG TAB PO ONE (08:15)
[2019-01-21] MEDS ORDERED: ACETAMINOPHEN TAB 650MG DOSE (2X325MG) PO PRN (08:15)
--- NOTE | 2019-01-21 08:46 | CR ---
DATE OF CONSULTATION: 01/20/2019 REQUESTING PHYSICIAN: Dr. Leon REASON FOR CONSULTATION: I was asked to consult for evaluation of chronic cough in a patient with complicated medical history and loculated pleural effusion. HISTORY OF PRESENT ILLNESS: Mr. Pabon is a 73-year-old gentleman with a history of cardiac arrest in February [address] [facility], transferred to [facility] for urgent coronary artery bypass graft (CABG), six vessel, and aortic valve replacement with a bioprosthesis for severe aortic stenosis. The patient since then has had multiple complications with multiple admissions for congestive heart failure and pneumonia since then. The patient presented here with complaints of chills and increasing shortness of breath with cough. The cough was mostly productive of whitish phlegm. He had no fever. He was started on IV vancomycin and cefepime. A chest CT showed a loculated pleural effusion but it was too small to drain. He did not have a white count or fever. His procalcitonin was 0.05 and therefore the question was whether he needed the antibiotic. PAST MEDICAL HISTORY: Significant for: 1. Methicillin resistant Staphylococcus aureus (MRSA) multifocal pneumonia in April 2018 with bacteremia. 2. History of thrombocytopenia. 3. Bilateral rib fracture. 4. T12 compression fracture. 5. Squamous cell carcinoma. 6. History of depression. 7. Chronic hoarseness, seen by Dr. 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 8. Recent right toe distal osteomyelitis status post 6 weeks of IV daptomycin that ended in December 2018 through a central line. PAST SURGICAL HISTORY: 1. CABG. 2. Aortic valve replacement with a bioprosthesis. 3. Tracheostomy and feeding tube removed 04/10/2018. 4. Back surgery 2004. 5. Squamous cell right hand 2003. 6. Left eye cataract surgery 2014. 7. Aortic valve replacement and CABG in February 2018. FAMILY HISTORY: Father of heart disease at 63. Mother diabetes and cancer at 85. SOCIAL HISTORY: Denies alcohol, smoking or drug use. He lives with his . He is in the process of moving from [place], [place] back to [place], which he is originally from. ALLERGIES: PENICILLIN, CUCUMBERS, STATIN, CODEINE, DULOXETINE, METFORMIN. MEDICATIONS: - furosemide 60 mg IV times one dose today - Vancomycin 1 gram IV every 24 - cefepime 1 gram IV every 12, currently day number 3 - insulin sliding scale - torsemide 20 mg by mouth daily - glipizide 5 mg by mouth twice a day - aspirin 81 mg daily - Colace 100 mg by mouth twice a day - the patient refused citalopram 10 mg by mouth at night - gabapentin 100 mg by mouth at night - metoprolol 50 mg by mouth twice a day - insulin sliding scale - warfarin 4 mg by mouth daily PHYSICAL EXAMINATION: Heart: Normal S1, S2. No rubs or gallops. There is a faint murmur at the aortic valve 04/13. Lungs: Good air movement, slightly diminished at bases. Few crackles at the left base. Abdomen: Soft, nontender. No hepatosplenomegaly. Extremities: No edema, clubbing or cyanosis. There is a black eschar with an ulcer on the right fifth metatarsal measuring about 2 x 1 cm with no surrounding cellulitis or purulence. Neurologic: Exam normal. Upper and lower extremity strength normal. Skin: With dry, scaly callus on the feet, erythema with scaliness on the dorsal aspect of both feet suggestive of dermatitis or psoriasis. LABORATORY DATA: White count 7.9. He has been afebrile throughout this admission. Hemoglobin 10.5, hematocrit 32, platelets 122, 64% neutrophils, 14% lymphocytes, 11% monocytes, 8% eosinophils. Sodium 141, potassium 3.7, chloride 109, bicarbonate 24, BUN 64, creatinine 2.51, glucose 135, calcium 8.3, CRP 2.11 and procalcitonin 0.05, BNP 3988. Blood cultures two sets were negative. Respiratory panel was negative. MRSA screen was not detected. IMAGING STUDIES: Chest x-ray: Right lower lobe pneumonia with possibility of loculated pleural effusion and cardiomegaly. RENAL ULTRASOUND: Unremarkable. Chest CT 01/19/2019 showed a right middle lobe improved infiltrate and small loculated right pleural effusion. No new infiltrates were seen. Improved bibasilar scarring compared to 06/12/2018. IMPRESSION: This is a 73-year-old gentleman admitted with increasing shortness of breath and a cough mostly productive of whitish phlegm associated with some chills but no fever. The patient was noted to have a small loculated pleural effusion but he has had a pleural effusion on his previous hospitalization as well as, history of left lower lobe pneumonia in October 2018. He was recently hospitalized December 18 to December 22 with congestive heart failure and had 4 liters of oxygen in [place]. The patient also has finished a 6 weeks course of IV daptomycin for osteomyelitis of the right toe. At this point, I do not see any indication of pneumonia. His cough could be viral in etiology, fluid overload or reflux. With a normal white count, being afebrile and having a normal procalcitonin this is not bacterial infection, possibly viral. The pleural effusion is probably from fluid overload and old infection. PLAN: Suggest discontinuing IV vancomycin and cefepime. Continue monitoring the patient for fever, worsening symptoms. We will start triamcinolone cream and Eucerin for dermatitis of both lower extremities.
[2019-01-21] MEDS: glipiZIDE (GLUCOTROL) 5 MG TAB PO SCH ×2 (08:48→16:57)
[2019-01-21] MEDS: DOCUSATE SODIUM 100 MG CAP PO SCH ×2 (08:48→21:26)
[2019-01-21] MEDS: METOPROLOL TART 50 MG TAB PO SCH ×2 (08:49→21:28)
[2019-01-21] MEDS: ASPIRIN 81 MG ENTERIC TAB PO SCH (08:49)
[2019-01-21] MEDS: TORSEMIDE 20 MG TAB PO SCH (08:49)
[2019-01-21] MEDS: TRIAMCINOLONE ACET 0.1% OINTMENT 15 GM EXT SCH ×2 (08:49→22:28)
--- NOTE | 2019-01-21 08:49 | REP ---
Single view chest: 01/21/2019. Indication: Loculated effusion. Cough. Comparison: CT chest from 2 days earlier and plain film chest dated 01/17/2019. Findings: The right-sided loculated diffusion is less conspicuous. Minimal fluid in the minor fissure is again noted. Patchy airspace disease and atelectasis persist particularly on the right. Study is otherwise unchanged. Impression: Less conspicuous right-sided loculated effusion. Otherwise stable exam. Electronically Signed by Alex Rubio DO 01/21/2019 08:40 A
[2019-01-21] MEDS ORDERED: TORS20TA2 PO (10:33)
[2019-01-21] MEDS ORDERED: FUROSEMIDE 100 MG/10 ML VIAL (J1940) IV ONE (11:30)
--- NOTE | 2019-01-21 11:39 | DSES ---
DATE OF ADMISSION: 01/17/2019 DATE OF DISCHARGE: 01/21/19 PRIMARY DISCHARGE CONSULTANTS DURING THIS ADMISSION: Felisa Power MD, nephrology. Juhi Peng MD, cardiology. Ears, nose, and throat (ENT), Carlos Casillas MD. PRIMARY DISCHARGE DIAGNOSES: 1. Acute on chronic kidney disease stage III 2. right-sided loculated pleural effusion. 3. Uncontrolled hypertension. 4. Type 2 diabetes. 5. History of atrial fibrillation. 6. Hypertensive heart disease. 7. Anemia due to chronic kidney disease. DISCHARGE MEDICATIONS: - acetaminophen 1 gram every 6 hours as needed for pain - aspirin 81 daily - vitamin D 2000 units daily - citalopram 10 mg nightly - echinacea 760 daily - gabapentin 100 nightly - glipizide 10 every morning - glipizide 5 each evening - metoprolol 50 twice a day - warfarin 4 mg each evening - torsemide 40 daily - potassium 595 daily - MiraLAX 17 grams nightly HOSPITAL COURSE: A 73-year-old male presented to the emergency room on 01/17/2019 with complaints of persistent cough for the past week with phlegm production and some dyspnea on exertion. He had some low-grade temperature, and a chest x-ray showed persistent right lower lobe infiltrate but significantly improved from prior when he was treated for pneumonia. Pro-BNP was elevated. The patient was presumptively admitted for healthcare-associated pneumonia and diastolic congestive heart failure (CHF). He was placed on intravenous (IV) vancomycin and cefepime, kept on IV Lasix, strict intake and output (I and O), daily weighs, and fluid restriction of 1.5 liters. Due to his methicillin-resistant Staphylococcus aureus (MRSA) bacteremia, he was placed on contact isolation precautions. CT chest showed small loculation, which was not enough to perform thoracentesis or place a chest tube. The patient remained afebrile with no white count. Procalcitonin was 0.05. Per Dr. Akhil Cevallos, infectious disease specialist, the patient did not require any further antibiotics, and these were all discontinued on 01/20/2019. The patient's admission weight was 84.1 kg with discharge weight of 80.1 kg. The patient's diuresis was managed by header machine operator and monitored by his twisting department end finder. He was net negative for 3 days, was negative positive yesterday, and currently stable. Renal ultrasound to evaluate acute on chronic renal failure shows unremarkable renal ultrasound. Microbiology was negative. Respiratory panel was negative. Two sets of blood cultures were negative. LABORATORIES ON DISCHARGE: White count 8, hemoglobin 10, hematocrit 31, platelet count 117. Sodium 140, potassium 3.7, chloride 110, bicarbonate 23, BUN 64, creatinine 2.4, glucose of 97, BNP was 33, C-reactive protein 2.11, procalcitonin 0.05. IMAGING STUDIES: Chest x-ray 01/17/2019: Right lower lobe pneumonia, possible loculated pleural effusion, cardiomegaly status quo. Renal ultrasound 01/18/2019: Unremarkable renal ultrasound. Chest CT 01/19/2019: Small loculated right pleural fluid in the major fissure. Improved infiltrate with air bronchograms and some volume loss in right middle lobe. Improved bibasilar scarring and bibasilar infiltrates compared with June 12, 2018. No new infiltrate is seen. TIME SPENT ON DISCHARGE: 30 minutes. MTDD
[2019-01-21 12:00] VITALS: BP 141/71
--- NOTE | 2019-01-21 12:56 | IPN ---
DATE OF SERVICE: 01/21/2019 SUBJECTIVE: The patient was seen and examined at the bedside today morning. The patient is afebrile, hemodynamically stable. He was given a dose of Lasix 60 mg intravenous (IV) times one dose yesterday. He reports that he made a lot of urine, although it is not recorded in the patient's chart. His breathing is improving. His renal function is stable. Creatinine is down to 2.4 today. He denies any active complaints apart from mild intermittent cough. OBJECTIVE: Vital signs: Temperature is 98.2 degrees Fahrenheit, blood pressure 166/80, pulse is 60, respiratory rate of 18, saturating 96% on room air. Intake and output: Urine output recorded is only 550 mL since overnight, but the patient reports that he made more urine than that. Weight in the bed scale is 80.1, which is 2 kg below his weight yesterday. PHYSICAL EXAMINATION: General: The patient is awake, alert, oriented times three, laying in bed in no apparent distress. Head and neck examination: Extraocular muscles intact. Pupils equally round and reactive to light. Mucous membranes are moist. Neck is supple. He has moderate elevation of jugular venous distention (JVD). Cardiovascular: S1, S2, regular rate. No edema of the bilateral lower extremities. Respiratory: Mildly decreased breath sounds at the bases with inspiratory crackles at the bases bilaterally. Abdomen: Soft, positive bowel sounds. Nontender. Musculoskeletal: No clubbing or cyanosis. Pulses are 2+. Central nervous system (SENIOR TALENT MANAGEMENT CONSULTANT): No focal deficit. Power is 5/5 in all extremities. LABORATORY REVIEW: Complete blood count (CBC) showed a WBC of 8, hemoglobin 10.3, platelets are 117. Basic metabolic profile (BMP) showed sodium 140, potassium 3.7, chloride 110, bicarbonate 27, BUN 64, creatinine is 2.4 - it was 2.5 yesterday, calcium 8.5, BNP is 2773. CURRENT INPATIENT MEDICATIONS: The patient's medications were all reviewed by me. He was given a dose of Lasix 60 mg IV yesterday. I have ordered another dose to be done today morning. He is also on torsemide 20 mg daily, and I have increased it to 40 mg by mouth daily. IV cefepime has been stopped. ASSESSMENT AND PLAN: 1. Acute decompensated congestive heart failure. The patient is getting IV Lasix. His breathing has been getting better. Oral diuretics have been increased to torsemide 40 mg by mouth daily. 2. Acute kidney injury superimposed on chronic kidney disease stage III. The patient's renal function is improving. He is tolerating the diuretics. Creatinine is down to 2.4. Okay to continue the higher dose of diuretics because of pulmonary edema. 3. Hypertension with hypertensive heart disease. Continue current dose of metoprolol. DISPOSITION: If the patient is discharged, he needs to be discharged on a higher dose of torsemide 40 mg by mouth daily. He needs to follow with nephrology as outpatient within 2 weeks after discharge from the hospital.
[2019-01-21 13:23] VITALS: BP 142/80
[2019-01-21] MEDS: WARFARIN SOD 4 MG TAB PO SCH (16:57)
[2019-01-21] MEDS: CitaloPRAM (CeleXA) 20 MG TAB PO SCH (21:27)
[2019-01-21] MEDS: GABAPENTIN 100 MG CAP PO SCH (21:27)
[2019-01-21 22:00] VITALS: BP 137/77
[2019-01-22] MEDS: SLF 3 ML SYR IV SCH (05:43)
[2019-01-22 06:00] VITALS: BP 134/75
[2019-01-22 06:11] LABS: BASO # 0.1 10^3/uL (0.0-0.2); BASO % 0.8 % (0.0-1.0); EOS # 0.7 10^3/uL (0.0-0.5); EOS % 9.3 % (0.0-3.0); HEMATOCRIT 31.5 % (42.0-52.0); HEMOGLOBIN 10.3 g/dl (13.5-17.5); LYMPH # 1.4 10^3/uL (1.5-5.0); MEAN CORPUSCULAR HEMOGLOBIN 32.3 pg (27.0-33.0); MEAN CORPUSCULAR HGB CONC 32.7 g/dl (32.0-36.5); MEAN CORPUSCULAR VOLUME 98.7 fl (80.0-96.0); MONO % 13.3 % (0.0-5.0); NEUTROPHILS # 4.4 10^3/uL (1.5-8.5); NEUTROPHILS % 58.1 % (36.0-66.0); PLATELET COUNT, AUTOMATED 126 10^3/uL (150-450); RED BLOOD COUNT 3.19 10^6/uL (4.30-6.10); WHITE BLOOD COUNT 7.6 10^3/uL (4.0-10.0)
[2019-01-22 06:23] LABS: INR 1.73
[2019-01-22 06:33] LABS: CALCIUM LEVEL 8.9 MG/DL (8.8-10.2); CREATININE FOR GFR 2.51 MG/DL (0.70-1.30); POTASSIUM SERUM 3.6 MEQ/L (3.5-5.1)
[2019-01-22] MEDS: HumaLOG INSULIN (NovoLOG) PER UNIT SC SCH (07:30)
[2019-01-22] MEDS: DOCUSATE SODIUM 100 MG CAP PO SCH (07:58)
[2019-01-22] MEDS: glipiZIDE (GLUCOTROL) 5 MG TAB PO SCH (07:58)
[2019-01-22] MEDS: ASPIRIN 81 MG ENTERIC TAB PO SCH (07:58)
[2019-01-22] MEDS: TRIAMCINOLONE ACET 0.1% OINTMENT 15 GM EXT SCH (07:59)
[2019-01-22 08:01] VITALS: BP 161/88
[2019-01-22] MEDS: METOPROLOL TART 50 MG TAB PO SCH (08:01)
[2019-01-22] MEDS ORDERED: AMLO10TA5 PO (08:14)
[2019-01-22] MEDS ORDERED: amLODIPine 5 MG TAB PO SCH (09:00)
[2019-01-22] MEDS ORDERED: ENOXAPARIN 40 MG/0.4 ML SYRINGE (J1650) SC ONE (09:00)
[2019-01-22] MEDS ORDERED: TORSEMIDE 20 MG TAB PO SCH (09:00)
[2019-01-22] MEDS ORDERED: amLODIPine 5 MG TAB PO ONE (09:00)
--- NOTE | 2019-01-22 15:08 | IPN ---
DATE OF SERVICE: 01/22/2019 SUBJECTIVE: Patient was seen and examined at the bedside today morning. He is afebrile, hemodynamically stable. He reports that his shortness of breath is getting better. His was given another dose of Lasix 60 mg IV yesterday. Creatinine has been fluctuating between 2.4-2.5. Patient reports that he is able to walk in the hallways now without getting short of breath. OBJECTIVE: Vital signs: Temperature is 97.2 degrees Fahrenheit, blood pressure 137/75, pulse is 66, respiratory rate of 20, saturating 98% on room air. Intake and output: Urine output recorded is 1.3 liters yesterday and urine output since overnight is not recorded. Weight in the bed scale is 81.4 kg, which is stable. PHYSICAL EXAMINATION: General: The patient is awake, alert, oriented times three, sitting up in the bed, in no apparent distress. Head and neck exam: Extraocular muscles intact. Pupils equally round and reactive to light. Mucous membranes are moist. Neck is supple. He has a mild amount of jugular venous distention (JVD). Cardiovascular: S1, S2, regular rate. No edema of the bilateral lower extremities. Respiratory: Mild respiratory crackles at the left base. Otherwise, no active rales or rhonchi. Abdomen is soft. Positive bowel sounds. Nontender. Musculoskeletal: No clubbing or cyanosis. Pulses are 2+. Central nervous system (JBOSS DEVELOPER): No focal deficit. Power is 5/5 in all extremities. LAB REVIEW: CBC showed a WBC of 7.6, hemoglobin is 10.3, platelets are 126. BMP showed sodium 140, potassium 3.6, chloride 111, bicarbonate 25, BUN 69, creatinine is 2.5. CURRENT INPATIENT MEDICATIONS: Patient's medications were all reviewed by me. His amlodipine dose has been increased to 10 mg by mouth daily. His torsemide dose was increased to 40 mg by mouth daily. No other change in the medications today as compared with yesterday. ASSESSMENT AND PLAN: 1. Acute decompensated congestive heart failure. Patient's volume status is optimal now. No more need of IV diuretics at this time. Torsemide dose has been increased to 40 mg daily. 2. Acute kidney injury superimposed on chronic kidney disease, stage III. It is secondary to aggressive diuresis. Creatinine has been stable around 2.4-2.5. Baseline creatinine is around the 2.1. Diuretic regimen has been switched to oral diuretic only. Renal function should improve back to baseline. 3. Hypertension with hypertensive heart disease. Patient continues to be on metoprolol. Amlodipine dose has been decreased. Diuretics have been adjusted.
[2019-01-23] MEDS ORDERED: amLODIPine 10 MG TAB PO SCH (09:00)
== END 2019-01-22 11:47 | disposition home or self-care (01) | DRG 187 ==
LOC: M ED 13:02 → M ED INP 18:29 → M PCU 20:36 → M MSPAV 01-21 14:29
PROVIDERS: ADMIT Internal Medicine Nephrology; ATTEND General Practice
DX: J90 Pleural effusion, not elsewhere classified (principal); N17.9 Acute kidney failure, unspecified; I48.20 Chronic atrial fibrillation, unspecified; I12.9 Hypertensive chronic kidney disease with stage 1 through stage 4 chronic kidney disease, or unspecified chronic kidney disease; N18.3 Chronic kidney disease, stage 3 (moderate); E11.9 Type 2 diabetes mellitus without complications; D63.1 Anemia in chronic kidney disease; Z79.82 Long term (current) use of aspirin; Z79.899 Other long term (current) drug therapy; I35.0 Nonrheumatic aortic (valve) stenosis; Z95.1 Presence of aortocoronary bypass graft; G47.33 Obstructive sleep apnea (adult) (pediatric); Z79.01 Long term (current) use of 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s; Z88.0 Allergy status to penicillin; Z88.5 Allergy status to narcotic agent; Z88.8 Allergy status to other drugs, medicaments and biological substances; Z91.038 Other insect allergy status; Z86.73 Personal history of transient ischemic attack (TIA), and cerebral infarction without residual deficits; I27.20 Pulmonary hypertension, unspecified; E78.5 Hyperlipidemia, unspecified

== ENCOUNTER → 2019-02-05 | Outpatient (CLI) | payer MEDICARE, MEDICAID ==
[~2019-02-05] MED LIST changes: +ACET-897 PO; +AMLO10TA5 PO; +GABA-1171 PO; +HM P99TA PO
--- NOTE | 2019-02-05 15:39 | REP ---
Clinical: Chest pain. Pleural effusion. Technique: PA and lateral. Comparison: 01/21/2019. Findings: Mediastinum and cardiac silhouette are stable. Lingular and right middle lobe infiltrates are suggested. No effusion. No pneumothorax. Mediastinum demonstrates prior sternotomy and postsurgical changes. Cardiac silhouette is within normal limits. Skeletal structures are intact. Impression: Findings suggesting right middle lobe and possible lingular/retrocardiac infiltrates and atelectasis. Electronically Signed by Sebas Sun MD 02/05/2019 03:29 P
--- NOTE | 2019-02-05 15:40 | REP ---
Clinical: Evaluate for pleural effusions. Technique: Bilateral decubitus chest radiographs. Findings: Cardiomegaly and diffuse chronic interstitial changes are appreciated with superimposed bibasilar atelectasis suggested. No evidence for pleural effusion. No pneumothorax. Skeletal structures are intact. Impression: Chronic changes with suspected bibasilar atelectasis. No pleural effusions identified. Electronically Signed by Sebas Sun MD 02/05/2019 03:30 P
== END ==
LOC: M RAD 14:44
PROVIDERS: ATTEND Internal Medicine Pulmonary Disease
DX: J90 Pleural effusion, not elsewhere classified (principal); R91.8 Other nonspecific abnormal finding of lung field

== ENCOUNTER 2019-02-22 10:20 | Emergency (ER) | payer MEDICARE, MEDICAID ==
[~2019-02-22] VITALS: Ht 177.8 cm; Wt 83.4 kg
[2019-02-22 11:26] LABS: BASO # 0.1 10^3/uL (0.0-0.2); BASO % 0.7 % (0.0-1.0); EOS # 0.8 10^3/uL (0.0-0.5); EOS % 10.6 % (0.0-3.0); HEMATOCRIT 28.8 % (42.0-52.0); HEMOGLOBIN 9.1 g/dl (13.5-17.5); LYMPH # 1.5 10^3/uL (1.5-5.0); LYMPH % 20.4 % (24.0-44.0); MEAN CORPUSCULAR HEMOGLOBIN 31.6 pg (27.0-33.0); MEAN CORPUSCULAR HGB CONC 31.6 g/dl (32.0-36.5); MONO # 0.8 10^3/uL (0.0-0.8); MONO % 10.6 % (0.0-5.0); NEUTROPHILS # 4.3 10^3/uL (1.5-8.5); NEUTROPHILS % 57.2 % (36.0-66.0); PLATELET COUNT, AUTOMATED 123 10^3/uL (150-450); RED BLOOD COUNT 2.88 10^6/uL (4.30-6.10); WHITE BLOOD COUNT 7.4 10^3/uL (4.0-10.0)
[2019-02-22 11:38] LABS: INR 2.17
[2019-02-22 11:39] LABS: PARTIAL THROMBOPLASTIN TIME 36.7 SECONDS (25.0-38.4)
[2019-02-22 12:09] LABS: ALBUMIN 3.1 GM/DL (3.2-5.2); ALT/SGPT 25 U/L (12-78); BILIRUBIN,DIRECT < 0.1 MG/DL (0.0-0.2); BILIRUBIN,TOTAL 0.5 MG/DL (0.2-1.0); BLOOD UREA NITROGEN 56 MG/DL (7-18); CALCIUM LEVEL 8.3 MG/DL (8.8-10.2); CARBON DIOXIDE LEVEL 26 MEQ/L (21-32); CHLORIDE LEVEL 108 MEQ/L (98-107); CK-MB VALUE MASS 4.8 NG/ML (<3.6); CPK CREATINE PHOSPHOKINASE 83 U/L (39-308); CREATININE FOR GFR 2.19 MG/DL (0.70-1.30); GLOMERULAR FILTRATION RATE 31.5 (>42); GLUCOSE, FASTING 138 MG/DL (70-100); MB/CK RELATIVE INDEX 5.78 (< OR =4); POTASSIUM SERUM 4.1 MEQ/L (3.5-5.1); SODIUM LEVEL 142 MEQ/L (136-145); TOTAL PROTEIN 7.8 GM/DL (6.4-8.2); TROPONIN I < 0.02 NG/ML (< 0.10)
--- NOTE | 2019-02-22 12:17 | REP ---
Portable chest x-ray: Single view. History: Weakness. Comparison study: February 05, 2019. Findings: There is a linear density along the course of the minor fissure consistent with fissural fluid. This is unchanged. There is a infiltrate in the right base with air bronchograms below it. This is also unchanged from the January 21 and February 05 2019 prior studies. There is linear fibrosis in the left base. Prior sternotomy is wires are seen. Heart size is borderline unchanged. Pulmonary vasculature is cephalized. Impression: Cephalization of the pulmonary vasculature borderline heart size. Chronic infiltrate right base. Fissural fluid in the minor fissure. Electronically Signed by Jesus Moser MD 02/22/2019 12:08 P
[2019-02-22 13:50] LABS: IRON (FE) 71 UG/DL (65-175)
[2019-02-22 15:08] VITALS: BP 171/94
--- NOTE | 2019-02-23 06:45 | REP ---
CT chest without contrast: History: Persistent right lower lobe infiltrate. Comparison is made with today's chest x-ray. Comparison chest CT study January 19, 2019. CT findings: Cardiomegaly is observed. No pericardial effusion is seen. There is a small right pleural effusion tracking into the major fissure. There is some fluid in the minor fissure as seen on the radiographs. These findings are unchanged from the January 19, 2019 study. There is some discoid atelectasis and/or fibrosis in both lower lobes posteriorly. There is a right middle lobe infiltrate essentially unchanged from January 19, 2019 study with some collapse and air bronchograms. There is an area of linear fibrosis in the left lower lobe. No pulmonary mass lesion is seen. No new infiltrate is observed. Heavy vascular calcification is noted. The patient is status post aortic valve replacement. There are scattered stable normal-sized nodes. No adrenal lesion is seen. There is a cyst in the right kidney. Impression: Chronic pleuroparenchymal changes in the bases bilaterally including some volume loss and chronic infiltrate and air bronchograms in the right middle lobe. There is a small right pleural effusion tracking into the major fissure and minor fissure unchanged. Status post aortic valve replacement. No new infiltrate seen. Electronically Signed by Jesus Moser MD 02/23/2019 08:35 A
== END 2019-02-22 15:21 | disposition home or self-care (01) ==
LOC: M ED 10:20
DX: R04.0 Epistaxis (principal); T45.515A Adverse effect of 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s, initial encounter; I25.10 Atherosclerotic heart disease of native coronary artery without angina pectoris; I25.2 Old myocardial infarction; E11.9 Type 2 diabetes mellitus without complications; I10 Essential (primary) hypertension; E78.5 Hyperlipidemia, unspecified; Z86.14 Personal history of Methicillin resistant Staphylococcus aureus infection; Z95.4 Presence of other heart-valve replacement; Z91.018 Allergy to other foods; Z88.0 Allergy status to penicillin; Z88.5 Allergy status to narcotic agent; Z88.8 Allergy status to other drugs, medicaments and biological substances; Z79.82 Long term (current) use of aspirin; Z79.84 Long term (current) use of oral hypoglycemic drugs; Z79.01 Long term (current) use of 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s; Z79.899 Other long term (current) drug therapy

== ENCOUNTER → 2019-03-23 | Outpatient (REF) | payer MEDICARE, MEDICAID ==
[~2019-03-23] MED LIST changes: +OMEP-172 PO; -OMEP20CA4 PO
[2019-03-23 16:39] LABS: CALCIUM LEVEL 8.7 MG/DL (8.8-10.2); CHOLESTEROL RISK RATIO 5.179 (<5); CREATININE FOR GFR 2.26 MG/DL (0.70-1.30); GLOMERULAR FILTRATION RATE 30.3 (>42); POTASSIUM SERUM 4.2 MEQ/L (3.5-5.1)
[2019-03-23 16:49] LABS: HEMOGLOBIN A1c 6.6 %
== END ==
LOC: M SFHCCLAY 10:07
PROVIDERS: ATTEND Family Medicine
DX: E11.22 Type 2 diabetes mellitus with diabetic chronic kidney disease (principal)
CPT/HCPCS: 80048; 80061; 83036; G0463

== ENCOUNTER → 2019-04-17 | Outpatient (REF) | payer MEDICARE, MEDICAID ==
[2019-04-17 13:37] LABS: INR 2.79; PROTHROMBIN TIME 29.3 SECONDS (11.8-14.0)
== END ==
LOC: SKLABADC 11:02
PROVIDERS: ATTEND Family Medicine
DX: Z79.01 Long term (current) use of 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s (principal); Z95.2 Presence of prosthetic heart valve

== ENCOUNTER 2019-04-25 04:34 | Inpatient (IN) | payer MEDICARE, MEDICAID ==
[~2019-04-25] VITALS: Ht 177.8 cm; Wt 86.5 kg
[~2019-04-25 04:34] MED LIST changes: -FENO145T13 GT; -FENO145T13 PO; +FENO145T7 GT; +FENO145T7 PO; -OMEP-172 PO; +OMEP1CAP73 PO
[2019-04-25 05:15] LABS: BASO # 0.1 10^3/uL (0.0-0.2); BASO % 0.7 % (0.0-1.0); EOS # 0.4 10^3/uL (0.0-0.5); EOS % 4.7 % (0.0-3.0); HEMATOCRIT 28.3 % (42.0-52.0); HEMOGLOBIN 8.9 g/dl (13.5-17.5); LYMPH % 13.1 % (24.0-44.0); MEAN CORPUSCULAR HEMOGLOBIN 32.4 pg (27.0-33.0); MEAN CORPUSCULAR HGB CONC 31.4 g/dl (32.0-36.5); MEAN CORPUSCULAR VOLUME 102.9 fl (80.0-96.0); MONO # 0.6 10^3/uL (0.0-0.8); MONO % 8.3 % (0.0-5.0); NEUTROPHILS # 5.5 10^3/uL (1.5-8.5); NEUTROPHILS % 72.8 % (36.0-66.0); PLATELET COUNT, AUTOMATED 140 10^3/uL (150-450); RED BLOOD COUNT 2.75 10^6/uL (4.30-6.10); WHITE BLOOD COUNT 7.5 10^3/uL (4.0-10.0)
[2019-04-25 05:33] LABS: INR 3.28; PROTHROMBIN TIME 33.4 SECONDS (11.8-14.0)
[2019-04-25 05:34] LABS: PARTIAL THROMBOPLASTIN TIME 55.2 SECONDS (25.0-38.4)
[2019-04-25 05:48] LABS: CALCIUM LEVEL 8.8 MG/DL (8.8-10.2); CREATININE FOR GFR 2.64 MG/DL (0.70-1.30); GLOMERULAR FILTRATION RATE 25.4 (>42); MB/CK RELATIVE INDEX 4.72 (< OR =4); POTASSIUM SERUM 4.7 MEQ/L (3.5-5.1); TROPONIN I 0.03 NG/ML (< 0.10)
[2019-04-25] MEDS: NITROGLYCERIN 0.4 MG SUBL TABLET SL PRN ×2 (06:09→06:13)
--- NOTE | 2019-04-25 07:15 | REPVR ---
PROCEDURE INFORMATION: Exam: CT Chest Without Contrast Exam date and time: 04/25/2019 5:28 AM Age: 74 years old Clinical indication: Shortness of breath; Chest pain; Type not specified; Additional info: Chest pain, SOB TECHNIQUE: Imaging protocol: Computed tomography of the chest without contrast. 3D rendering: MIP and/or 3D reconstructed images were created by the technologist. Radiation optimization: All CT scans at this facility use at least one of these dose optimization techniques: automated exposure control; mA and/or kV adjustment per patient size (includes targeted exams where dose is matched to clinical indication); or iterative reconstruction. COMPARISON: CT Chest without contrast 02/22/2019 12:35 PM FINDINGS: Lungs: There is mild interlobular septal thickening in both lungs. There is some improvement in consolidation in the right middle lobe compared to the prior examThere are several poorly defined, small ground-glass opacities in the bilateral upper lobes which were not seen previously. There is mild mosaic attenuation of the lungs which was not seen previously. . There is an area of poorly defined opacity and associated architectural distortion in the superior segment of the left lower lobe which appears unchanged. There are several bands of density in both lung bases which are unchanged and likely represent persistent atelectasis or small scarring. Pleural space: There is a partially loculated right pleural effusion with loculated fluid extending into the right major and minor fissures, increased in size compared to the prior exam. There is a small left pleural effusion, slightly larger than on the prior exam. Heart: There is a prosthetic aortic valve. Sternotomy wires and mediastinal surgical clips are present, consistent with previous coronary arterial bypass grafting. There is mild cardiomegaly. Mediastinum: A small hiatal hernia is present. Aorta: The aorta demonstrates moderate atherosclerotic calcification. Lymph nodes: There are multiple small and borderline sized mediastinal lymph nodes. There are small calcified mediastinal and right hilar lymph nodes. Bones/joints: There are deformities from old, healed right-sided rib fractures. Degenerative endplate changes are seen at multiple levels in the visualized spine. There is loss of height of the T12 vertebral body, unchanged. Soft tissues: Unremarkable. IMPRESSION: 1. Increase in size of the partially loculated right pleural effusion. 2. Some improvement in patchy consolidation in the right middle lobe compared to the prior exam. 3. Mild interlobular septal thickening and mild mosaic attenuation of the lungs, which represents a change from the prior exam and may represent mild interstitial pulmonary edema. 4. Several more focal small areas of ground-glass opacity in the bilateral upper lobes which were not seen previously, probably representing an infectious or inflammatory process, or less likely, related to mild pulmonary edema. 5. Additional parenchymal opacities are similar to the prior exam and probably represent chronic scarring. Electronically signed by: Katie Coburn On 04/25/2019 07:14:53 AM
[2019-04-25] MEDS: ASPIRIN 81 MG ENTERIC TAB PO SCH (09:00)
[2019-04-25] MEDS ORDERED: glipiZIDE (GLUCOTROL) 5 MG TAB PO ONE ×2 (09:00→21:00)
--- NOTE | 2019-04-25 10:07 | ECGEPIP ---
[facility] - ED Test Date: 2019-04-25 Pat Name: MARTHA LOPEZ Department: Room: - Gender: Male School Clerk: : 1945 Requested By: TONY Saba Order Number: [id number] Reading MD: Lena Hoang Measurements Intervals [place] Rate: 66 P: 56 MA: 198 QRS: -44 QRSD: 104 T: 53 QT: 484 QTc: 509 Interpretive Statements SINUS RHYTHM WITH OCCASIONAL ECTOPIC PREMATURE COMPLEXES MARKED LEFT AXIS DEVIATION PATTERN CONSISTENT WITH PULMONARY DISEASE PROBABLE OLD INFERIOR INFARCT NONSPECIFIC ST & T-WAVE ABNORMALITY PROLONGED QT INTERVAL, CLINICAL CORRELATION Electronically Signed on 04-25-2019 10:06:55 EST by Lena Hoang
--- NOTE | 2019-04-25 10:07 | ECGEPIP ---
[facility] - ED Test Date: 2019-04-25 Pat Name: MARTHA LOPEZ Department: Room: - Gender: Male Gas M[employer] Prover: : 1945 Requested By: TONY Saba Order Number: [id number] Reading MD: Lena Hoang Measurements Intervals [place] Rate: 66 P: 64 ND: 198 QRS: -42 QRSD: 104 T: 75 QT: 485 QTc: 510 Interpretive Statements SINUS RHYTHM WITH OCCASIONAL ECTOPIC PREMATURE COMPLEXES MARKED LEFT AXIS DEVIATION PATTERN CONSISTENT WITH PULMONARY DISEASE NONSPECIFIC ST & T-WAVE ABNORMALITY PROLONGED QT INTERVAL OLD INFERIOR INFARCT SIMILAR 4:42 Electronically Signed on 04-25-2019 10:07:24 EST by Lena Hoang
[2019-04-25] MEDS ORDERED: D3 22000 PO (10:18)
[2019-04-25] MEDS ORDERED: TORS20TA2 PO (10:18)
[2019-04-25 10:28] LABS: CK-MB VALUE MASS 5.3 NG/ML (<3.6); MB/CK RELATIVE INDEX 4.42 (< OR =4); TROPONIN I 0.03 NG/ML (< 0.10)
[2019-04-25] MEDS ORDERED: FUROSEMIDE 40 MG/4 ML VIAL (J1940) IV ONE (10:45)
--- NOTE | 2019-04-25 10:50 | REP ---
Portable chest x-ray: Single view. History: Chest pain. Comparison study: February 22, 2019. Findings: Cardiac enlargement and prior median sternotomy wires are again seen unchanged. EKG monitoring electrodes are seen. There is a lens shaped opacity along the minor fissure on the right consistent with intra fissural fluid. Hazy opacity in the right base is again seen unchanged. There is minimal linear scarring in the left base as well. No new infiltrate is seen. Impression: Chronic pleuroparenchymal changes right base. Cardiomegaly. Mild linear fibrosis left base. Electronically Signed by Jesus Moser MD 04/25/2019 08:02 A
[2019-04-25] MEDS ORDERED: ACETAMINOPHEN 500 MG TAB PO PRN (13:15)
[2019-04-25] MEDS ORDERED: MIRALAX *UNIT DOSE* 17GM PACKET PO PRN (13:15)
--- NOTE | 2019-04-25 13:27 | HPEPDOC ---
[facility] Medical History & Physical Date of Admission Apr 25, 2019 Date of Service: Apr 25, 2019 Attending Physician: DYLON HARRINGTON MD History and Physical CHIEF COMPLAINT: chest pain HISTORY OF PRESENT ILLNESS: 74-year-old male with past medical history of CHF, coronary artery disease status post CABG, aortic valve replacement, CVA, atrial fibrillation on Coumadin, OR, diabetes mellitus and peripheral vascular disease presents from home with chest pain. Patient reports feeling well until he woke up this morning with midsternal chest pain, nonradiating, sharp/pressure like, resolved after 1 hour, has not recurred since. He had an OR one year ago with questionable cardiac arrest, was transferred to 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 Since then he has had multiple admissions for recurrent pneumonia and CHF exacerbation. Last admission was in January 2019 for pneumonia. Patient has no other symptoms at this time, denies any change in his baseline shortness of breath, cough, nausea, vomiting, abdominal pain or diarrhea. He denies fevers at home. In the ED, he is found to have increased fluid in the chronic loculated effusion on the right side. He was given Lasix 40 mg IV in the ED with good response. 10 point review of system is negative except for above PAST MEDICAL HISTORY: 1. CHF. 2. Coronary artery disease. 3. Peripheral vascular disease. 4. CVA 5. Atrial fibrillation. 6. Diabetes mellitus. 7. OR PAST SURGICAL HISTORY: 1. CABG. 2. Aortic valve replacement. 3. Back surgery. SOCIAL HISTORY: Never smoker. Denies alcohol use. Denies drug use FAMILY HISTORY: Father with history of OR. Mother with diabetes mellitus ALLERGIES: Please see below. HOME MEDICATIONS: Please see below. PHYSICAL EXAMINATION: VITAL SIGNS: Please see below. GENERAL: No distress HEENT: Normocephalic, atraumatic, moist mucous membranes NECK: Supple CARDIOVASCULAR EXAMINATION: S1, S2, no murmurs RESPIRATORY EXAMINATION: Clear to auscultation, no wheezing ABDOMINAL EXAMINATION: Soft, nontender, nondistended, positive bowel sounds EXTREMITIES: Range of motion intact SKIN: No rash NEUROLOGICAL EXAMINATION: Alert and oriented 3, no focal deficits PSYCHIATRIC EXAMINATION: Calm and cooperative LABORATORY DATA: See below. IMAGING: CT chest showing increased right sided loculated pleural effusion MICROBIOLOGY: Please see below. ASSESSMENT: 74-year-old male with multiple medical comorbidities, presents with chest pain and worsening of loculated pleural effusion. PLAN: 1. Chest pain. Unclear etiology, possibly due to worsening of loculated pleural effusion, troponin negative in the ED 2, EKG without acute ST-T wave changes, TTE ordered for further evaluation. Currently is symptomatic, will keep on telemetry monitoring. 2. Loculated pleural effusion. Chronic, possibly secondary to scarring or lung trapping, increased from prior CAT scan in February, we'll treat with diuretics for now, no clinical signs suggestive of infection at this time, pro-calcitonin and respiratory viral panel ordered, will avoid antibiotics at this time. Will trial diuretics for 24-48 hours and consider diagnostic/therapeutic thoracentesis if warranted. 3. CHF. Hold home torsemide, started on Lasix 40 mg IV daily. 4. Diabetes mellitus. Patient is adamant about not getting any insulin, wishes to continue his home oral medication, continue glipizide. 5. Atrial fibrillation. On Coumadin frantic regulation, INR is supratherapeutic, hold Coumadin for today, continue metoprolol for rate control. 6. CVA. Continue home aspirin 81 mg per day, patient is currently not on a statin. 7. Coronary artery disease. Status post CABG, continue optimal medical management, aspirin, beta hcristian, patient is not on a statin. DVT prophylaxis: On Coumadin. GI prophylaxis: Not needed Vital Signs Vital Signs Date Time Temp Pulse Resp B/P (MAP) Pulse Ox O2 Delivery O2 Flow Rate FiO2 04/25/19 12:46 188/80 (116) 04/25/19 12:45 76 99 04/25/19 06:45 16 Room Air 04/25/19 04:49 96.5 Laboratory Data Labs 24H Laboratory Tests 2 04/25/19 04:55: Immature Granulocyte % (Auto) 0.4, Neutrophils (%) (Auto) 72.8H, Lymphocytes (%) (Auto) 13.1L, Monocytes (%) (Auto) 8.3H, Eosinophils (%) (Auto) 4.7H, Basophils (%) (Auto) 0.7, Neutrophils # (Auto) 5.5, Lymphocytes # (Auto) 1.0L, Monocytes # (Auto) 0.6, Eosinophils # (Auto) 0.4, Basophils # (Auto) 0.1, Nucleated Red Blood Cells % (auto) 0.0, Prothrombin Time 33.4H, Prothromb Time International Ratio 3.28, Activated Partial Thromboplast Time 55.2H, Anion Gap 8, Glomerular Filtration Rate 25.4L, Calcium Level 8.8, Total Creatine Kinase 127, Creatine Kinase MB 6.0H, Creatine Kinase MB Relative Index 4.72H, Troponin I 0.03, EM-Cvl-Q-Type Natriuretic Peptide 4713H 04/25/19 09:33: Total Creatine Kinase 120, Creatine Kinase MB 5.3H, Creatine Kinase MB Relative Index 4.42H, Troponin I 0.03 04/25/19 11:35: Lactic Acid Level 1.7 CBC/BMP Laboratory Tests 04/25/19 04:55 Microbiology Microbiology 04/25/19 Blood Culture, Received Pending 04/25/19 Blood Culture, Received Pending Home Medications Scheduled Cholecalciferol (Vitamin D3) (Vitamin D3) 2,000 Unit Tablet, 2,000 UNIT PO DAILY NOON Citalopram Hydrobromide (Citalopram HBr) 20 Mg Tab, 10 MG PO QHS Echinacea (Echinacea) 380 Mg Cap, 760 MG PO DAILY Gabapentin (Gabapentin) 100 Mg Capsule, 100 MG PO QHS Glipizide (Glipizide) 10 Mg Tab, 10 MG PO QAM Glipizide (Glipizide) 10 Mg Tablet, 5 MG PO QPM Metoprolol Tartrate (Metoprolol Tartrate) 50 Mg Tab, 50 MG PO BID Potassium Gluconate (Potassium) 99 Mg Tablet, 595 MG PO DAILY TAKES AT 1200 Torsemide (Torsemide) 20 Mg Tablet, 20 MG PO DAILY MAY TAKE ADDITIONAL TABLET NEEDED FOR SWELLING Warfarin Sodium (Warfarin Sodium) 4 Mg Tab, 4 MG PO QPM WITH SUPPER Scheduled PRN Acetaminophen (Tylenol Extra Strength) 500 Mg Tablet, 1,000 MG PO Q6H PRN for PAIN Polyethylene Glycol 3350 (Miralax) 119 Gm Powder, 17 GM PO QHS PRN for CONSTIPATION Allergies Coded Allergies: [place] (Verified Allergy, Severe, ANAPHYLAXIS, 11/09/14) Penicillins (Verified Allergy, Severe, Anaphylaxis, 07/02/18) metformin (Verified Allergy, Severe, Tongue swelling, 07/02/18) Wdcqbox-Qwh-Ifw Reductase Inhibitor (Verified Adverse Reaction, Intermediate, Altered Mental Status, 07/02/18) duloxetine (Unverified Adverse Reaction, Mild, Nausea and vomiting, 07/02/18) codeine (Verified Adverse Reaction, Unknown, "out of it". , 01/17/19) mixed with guifenasin A-FIB/CHADSVASC A-FIB History Current/History of A-Fib/PAF?: Yes Current PO Anticoag Therapy: Yes DYLON HARRINGTON MD Apr 25, 2019 13:27
[2019-04-25 14:04] VITALS: BP 168/82
[2019-04-25] MEDS: METOPROLOL TART 50 MG TAB PO SCH ×2 (14:11→20:57)
[2019-04-25 15:41] VITALS: BP 148/88
[2019-04-25 20:00] VITALS: BP 154/90
[2019-04-25] MEDS: GABAPENTIN 100 MG CAP PO SCH (20:57)
[2019-04-25] MEDS: CitaloPRAM (CeleXA) 20 MG TAB PO SCH (20:57)
[2019-04-26] VITALS: BP 126/70
[2019-04-26] MEDS: NORCO, ANEXSIA 5/325MG TABLET (HYDROcodone/ACETAMINOPHEN) PO PRN ×2 (00:30→07:53)
[2019-04-26 04:00] VITALS: BP 122/76
[2019-04-26 05:27] LABS: HEMATOCRIT 25.6 % (42.0-52.0); HEMOGLOBIN 8.1 g/dl (13.5-17.5); MEAN CORPUSCULAR HEMOGLOBIN 32.9 pg (27.0-33.0); MEAN CORPUSCULAR HGB CONC 31.6 g/dl (32.0-36.5); MEAN CORPUSCULAR VOLUME 104.1 fl (80.0-96.0); PLATELET COUNT, AUTOMATED 127 10^3/uL (150-450); RED BLOOD COUNT 2.46 10^6/uL (4.30-6.10); WHITE BLOOD COUNT 6.5 10^3/uL (4.0-10.0)
[2019-04-26 05:37] LABS: INR 3.04; PROTHROMBIN TIME 31.4 SECONDS (11.8-14.0)
[2019-04-26 05:42] LABS: ALBUMIN 2.8 GM/DL (3.2-5.2); BILIRUBIN,TOTAL 0.7 MG/DL (0.2-1.0); CALCIUM LEVEL 8.2 MG/DL (8.8-10.2); CREATININE FOR GFR 2.54 MG/DL (0.70-1.30); GLOMERULAR FILTRATION RATE 26.5 (>42); MAGNESIUM LEVEL 2.6 MG/DL (1.8-2.4); POTASSIUM SERUM 3.9 MEQ/L (3.5-5.1); TOTAL PROTEIN 7.7 GM/DL (6.4-8.2)
[2019-04-26 07:43] VITALS: BP 138/82
[2019-04-26] MEDS: METOPROLOL TART 50 MG TAB PO SCH ×2 (07:51→20:32)
[2019-04-26] MEDS: ASPIRIN 81 MG ENTERIC TAB PO SCH (07:51)
[2019-04-26] MEDS ORDERED: FUROSEMIDE 40 MG/4 ML VIAL (J1940) IV ONE (09:00)
--- NOTE | 2019-04-26 09:55 | IPNPDOC ---
Date Seen The patient was seen on 04/26/19. Progress Note HISTORY OF PRESENT ILLNESS: 74-year-old male with past medical history of CHF, coronary artery disease status post CABG, aortic valve replacement, CVA, atrial fibrillation on Coumadin, SD, diabetes mellitus and peripheral vascular disease presents from home with chest pain. Patient reports feeling well until he woke up this morning with midsternal chest pain, nonradiating, sharp/pressure like, resolved after 1 hour, has not recurred since. He had an SD one year ago with questionable cardiac arrest, was transferred to [facility], underwent CABG and aortic valve replacement at that time, subsequently had CVA 2. Since then he has had multiple admissions for recurrent pneumonia and CHF exacerbation. Last admission was in January 2019 for pneumonia. Patient has no other symptoms at this time, denies any change in his baseline shortness of breath, cough, nausea, vomiting, abdominal pain or diarrhea. He denies fevers at home. In the ED, he is found to have increased fluid in the chronic loculated effusion on the right side. He was given Lasix 40 mg IV in the ED with good response. 04/26/19 Patient reports slight improvement in dyspnea but continues to have slight shortness of breath with cough, reports pain at debridement site in the right foot, no other complaints. He denies any chest pain, nausea, vomiting, abdominal pain or diarrhea. 10 point review of system is negative except for above HOME MEDICATIONS: Please see below. PHYSICAL EXAMINATION: VITAL SIGNS: Please see below. GENERAL: No distress HEENT: Normocephalic, atraumatic, moist mucous membranes NECK: Supple CARDIOVASCULAR EXAMINATION: S1, S2, no murmurs RESPIRATORY EXAMINATION: Bilateral rhonchi appreciated, no wheezing ABDOMINAL EXAMINATION: Soft, nontender, nondistended, positive bowel sounds EXTREMITIES: Right foot with clean based ulcer on the lateral aspect below the fifth digit with slight tenderness to palpation and minimal erythema. SKIN: No rash NEUROLOGICAL EXAMINATION: Alert and oriented 3, no focal deficits PSYCHIATRIC EXAMINATION: Calm and cooperative LABORATORY DATA: See below. IMAGING: CT chest showing increased right sided loculated pleural effusion MICROBIOLOGY: Please see below. ASSESSMENT: 74-year-old male with multiple medical comorbidities, presents with chest pain and worsening of loculated pleural effusion. PLAN: 1. Loculated pleural effusion. Chronic, possibly secondary to scarring or lung trapping, increased from prior CAT scan in February, clinically with slight improvement, increase Lasix to 40 mg twice a day, no clinical signs suggestive of infection at this time, pro- calcitonin and respiratory viral panel ordered, will avoid antibiotics at this time. 3. CHF. Hold home torsemide, continue Lasix 40 mg IV twice a day. 4. Diabetes mellitus. Patient is adamant about not getting any insulin, wishes to continue his home oral medication, continue glipizide. 5. Atrial fibrillation. On Coumadin for anticoagulation, INR 3.0 for today, ordered Coumadin 4 mg for tonight, continue metoprolol for rate control. 6. CVA. Continue home aspirin 81 mg per day, patient is currently not on a statin. 7. Coronary artery disease. Status post CABG, continue optimal medical management, aspirin, beta christian, patient is not on a statin. DVT prophylaxis: On Coumadin. GI prophylaxis: Not needed VS, I&O, 24H, Fishbone Vital Signs/I&O Vital Signs Date Time Temp Pulse Resp B/P (MAP) Pulse Ox O2 Delivery O2 Flow Rate FiO2 04/26/19 09:30 19 04/26/19 07:53 Room Air 04/26/19 07:51 60 138/82 04/26/19 07:43 97.3 96 I&O- Last 24 Hours up to 6 AM 04/26/19 06:00 Intake Total 720 ml Output Total 2625 ml Balance -1905 ml Laboratory Data 24H LABS Laboratory Tests 2 04/25/19 11:35: Lactic Acid Level 1.7 04/26/19 04:57: Nucleated Red Blood Cells % (auto) 0.0, Prothrombin Time 31.4H, Prothromb Time International Ratio 3.04, Anion Gap 6L, Glomerular Filtration Rate 26.5L, Calcium Level 8.2L, Magnesium Level 2.6H, Total Bilirubin 0.7, Aspartate Amino Transf (AST/SGOT) 8, Alanine Aminotransferase (ALT/SGPT) 15, Alkaline Phosphatase 74, Total Protein 7.7, Albumin 2.8L, Albumin/Globulin Ratio 0.57L CBC/BMP Laboratory Tests 04/26/19 04:57 Microbiology Microbiology 04/25/19 Blood Culture, Received Pending 04/25/19 Blood Culture, Received Pending DYLON HARRINGTON MD Apr 26, 2019 09:55
[2019-04-26 13:00] VITALS: BP 146/76
[2019-04-26] MEDS ORDERED: POTASSIUM CHLORIDE 10 MEQ SR TABLET PO ONE (15:00)
[2019-04-26] MEDS ORDERED: WARFARIN SOD 4 MG TAB PO ONE (17:00)
[2019-04-26] MEDS: FUROSEMIDE 40 MG/4 ML VIAL (J1940) IV SCH (18:23)
[2019-04-26] MEDS: GABAPENTIN 100 MG CAP PO SCH (20:32)
[2019-04-26] MEDS: CitaloPRAM (CeleXA) 20 MG TAB PO SCH (20:33)
[2019-04-26] MEDS ORDERED: ATORVASTATIN 20 MG TAB PO SCH (21:00)
[2019-04-27 06:00] VITALS: BP 140/75
[2019-04-27 06:11] LABS: HEMATOCRIT 26.7 % (42.0-52.0); HEMOGLOBIN 8.6 g/dl (13.5-17.5); MEAN CORPUSCULAR HEMOGLOBIN 33.5 pg (27.0-33.0); MEAN CORPUSCULAR HGB CONC 32.2 g/dl (32.0-36.5); MEAN CORPUSCULAR VOLUME 103.9 fl (80.0-96.0); PLATELET COUNT, AUTOMATED 131 10^3/uL (150-450); RED BLOOD COUNT 2.57 10^6/uL (4.30-6.10); WHITE BLOOD COUNT 8.3 10^3/uL (4.0-10.0)
--- NOTE | 2019-04-27 06:17 | ECHO ---
DATE OF STUDY: 04/25/2019 REFERRING PHYSICIAN: Dr. Mike Oliva INDICATION: Heart failure unspecified. HEIGHT: 70 inches. WEIGHT: 88 kg. 2-D MEASUREMENTS: Ventricular septum: 1.19 cm Posterior wall: 1.04 cm Left ventricle diastole: 4.6 cm Left atrium: 4.7 cm Left ventricle outflow tract dimension: 2.1 cm Aortic root: 2.7 cm Inferior vena cava: 1.7 cm DOPPLER MEASUREMENTS: Aortic valve velocity: 168 cm/sec No aortic regurgitation No aortic stenosis Moderate mitral regurgitation No mitral stenosis Mitral E velocity: 148 cm/sec (PW) Mitral V velocity: Not recorded Mitral pressure half time: 86 ms Mild tricuspid regurgitation Estimated right ventricular systolic pressure 52-57 mmHg assuming a right atrial pressure of 5-10 mmHg Trace pulmonic regurgitation Pulmonary artery acceleration time: 74 ms MITRAL ANNULAR TISSUE DOPPLER: E prime septal: 4.1 cm/sec E prime lateral: 5.2 cm/sec DESCRIPTION: The rhythm was sinus with appearance of a first degree AV block. Image quality was fair. No pericardial effusion. This was a 2-D, M-mode, color flow Doppler and pulse wave Doppler examination and included mitral annular tissue Doppler. CONCLUSIONS: 1. Normal left ventricle internal dimensions and wall thickness. Akinesis of inferobasal segment of left ventricle with normal wall motion and wall thickening elsewhere. Preserved overall LV systolic function. LVEF 60% by visual estimate. LV diastolic function determination was indeterminate due to absence of clearly identifiable A waves. However, at least some degree of LV diastolic function was present because the mitral annular tissue Doppler velocities were reduced. 2. Status post aortic valve bioprosthesis in situ which was structurally and functionally normal. No aortic regurgitation. 3. Severe mitral annular calcification. No mitral stenosis. Moderate mitral regurgitation. 4. Moderate left atrial dilatation. 5. Suggestive of moderate elevation of estimated right ventricle systolic pressure. 6. No pericardial effusion.
[2019-04-27 06:21] LABS: INR 2.84; PROTHROMBIN TIME 29.7 SECONDS (11.8-14.0)
[2019-04-27 07:08] LABS: CALCIUM LEVEL 8.4 MG/DL (8.8-10.2); CREATININE FOR GFR 2.63 MG/DL (0.70-1.30); GLOMERULAR FILTRATION RATE 25.5 (>42); MAGNESIUM LEVEL 2.6 MG/DL (1.8-2.4); PHOSPHORUS LEVEL 3.3 MG/DL (2.5-4.9); POTASSIUM SERUM 4.1 MEQ/L (3.5-5.1)
[2019-04-27 08:10] VITALS: BP 130/68
[2019-04-27] MEDS: ASPIRIN 81 MG ENTERIC TAB PO SCH ×2 (09:00→11:09)
[2019-04-27 11:10] VITALS: BP 130/68
[2019-04-27] MEDS: METOPROLOL TART 50 MG TAB PO SCH (11:10)
[2019-04-27] MEDS: FUROSEMIDE 40 MG/4 ML VIAL (J1940) IV SCH (11:11)
--- NOTE | 2019-04-27 11:36 | DS.PDOC ---
Discharge Summary General Date of Admission Apr 25, 2019 at 13:03 Date of Discharge 04/27/19 Discharge Summary PROCEDURES PERFORMED DURING STAY: None. ADMITTING DIAGNOSES: 1. Right pleural effusion. DISCHARGE DIAGNOSES: 1. Right pleural effusion,Chronich A. fib, CAD, aortic wall replacement, CVA, diabetes mellitus, PVD. COMPLICATIONS/CHIEF COMPLAINT: AFIB. HISTORY OF PRESENT ILLNESS: 74-year-old male with past medical history of CHF, coronary artery disease status post CABG, aortic valve replacement, CVA, atrial fibrillation on Coumadin, RI, diabetes mellitus and peripheral vascular disease presents from home with chest pain. Patient reports feeling well until he woke up this morning with midsternal chest pain, nonradiating, sharp/pressure like, resolved after 1 hour, has not recurred since. He had an RI one year ago with questionable cardiac arrest, was transferred to [facility], underwent CABG and aortic valve replacement at that time, subsequently had CVA 2. Since then he has had multiple admissions for recurrent pneumonia and CHF exacerbation. Last admission was in January 2019 for pneumonia. Patient has no other symptoms at this time, denies any change in his baseline shortness of breath, cough, nausea, vomiting, abdominal pain or diarrhea. He denies fevers at home. In the ED, he is found to have increased fluid in the chronic loculated effusion on the right side. He was given Lasix 40 mg IV in the ED with good response.. HOSPITAL COURSE: 1. Loculated pleural effusion. Chronic in nature, possibly secondary to scarring or lung trapping, increased from prior CAT scan in February, clinically with slight improvement, increase Lasix to 40 mg twice a day, no clinical signs suggestive of infection at this time, pro-calcitonin and respiratory viral panel ordered, will avoid antibiotics at this time. Is asymptomatic, afebrile, not a candidate for thoracentesis pr obably will be discharged home today and follow with Dr. snow an outpatient for further workup. Patient is clinically stable. Offers no new complaints and wishes to go home today 3. Acute on chronic diastolic congestive heart failure Patient was started on IV Lasix, but will change back to torsemide on discharge 4. Diabetes mellitus. Patient refuses to get any insulin in hospital and will continue his glipizide on discharge 5. Chronic atrial fibrillation. On Coumadin for anticoagulation, INR 3.0 for today, ordered Coumadin 4 mg for tonight, continue metoprolol for rate control. 6. CVA. Continue home aspirin 81 mg per day, patient is currently not on a statin. 7. Coronary artery disease. Status post CABG, continue optimal medical management, aspirin, beta christian, patient is not on a statin.. DISCHARGE MEDICATIONS: Please see below. ALLERGIES: Please see below. PHYSICAL EXAMINATION ON DISCHARGE: VITAL SIGNS: Please see below. GENERAL: Within normal limits HEENT: PERRLA. Extraocular muscles intact NECK: Supple. Negative JVD, negative lymphadenopathy CARDIOVASCULAR EXAMINATION: S1, S2, regular RESPIRATORY EXAMINATION: Clear to A&P ABDOMINAL EXAMINATION: Benign EXTREMITIES: No clubbing, cyanosis, edema SKIN: Normal NEUROLOGICAL EXAMINATION: . No focal motor sensory deficit PSYCHIATRIC EXAMINATION: Normal LABORATORY DATA: Please see below. IMAGING: Chest CT:1. Increase in size of the partially loculated right pleural effusion. 2. Some improvement in patchy consolidation in the right middle lobe compared to the prior exam. 3. Mild interlobular septal thickening and mild mosaic attenuation of the lungs, which represents a change from the prior exam and may represent mild interstitial pulmonary edema. 4. Several more focal small areas of ground-glass opacity in the bilateral upper lobes which were not seen previously, probably representing an infectious or inflammatory process, or less likely, related to mild pulmonary edema. 5. Additional parenchymal opacities are similar to the prior exam and probably EchO:1. Normal left ventricle internal dimensions and wall thickness. Akinesis of inferobasal segment of left ventricle with normal wall motion and wall thickening elsewhere. Preserved overall LV systolic function. LVEF 60% by visual estimate. LV diastolic function determination was indeterminate due to absence of clearly identifiable A waves. However, at least some degree of LV diastolic function was present because the mitral annular tissue Doppler velocities were reduced. 2. Status post aortic valve bioprosthesis in situ which was structurally and functionally normal. No aortic regurgitation. 3. Severe mitral annular calcification. No mitral stenosis. Moderate mitral regurgitation. 4. Moderate left atrial dilatation. 5. Suggestive of moderate elevation of estimated right ventricle systolic pressure. 6. No pericardial effusion. represent chronic scarring PROGNOSIS: good ACTIVITY: As tolerated. DIET: As tolerated DISCHARGE PLAN: Discharged home DISPOSITION: . Home DISCHARGE INSTRUCTIONS: 1. As per discharge instructions. ITEMS TO FOLLOWUP ON ON OUTPATIENT: 1. Follow with Dr. snow and Dr. Orellana as outpatient in one week. DISCHARGE CONDITION: Stable. TIME SPENT ON DISCHARGE: 35 minutes Vital Signs/I&Os Vital Signs Date Time Temp Pulse Resp B/P (MAP) Pulse Ox O2 Delivery O2 Flow Rate FiO2 04/27/19 11:10 70 130/68 04/27/19 08:10 98.8 18 04/27/19 06:00 93 Room Air I&O- Last 24 Hours up to 6 AM 04/27/19 06:00 Intake Total 1800 ml Output Total 2150 ml Balance -350 ml Laboratory Data Labs 24H Laboratory Tests 2 04/27/19 05:45: Nucleated Red Blood Cells % (auto) 0.0, Prothrombin Time 29.7H, Prothromb Time International Ratio 2.84, Anion Gap 7L, Glomerular Filtration Rate 25.5L, Calcium Level 8.4L, Phosphorus Level 3.3, Magnesium Level 2.6H CBC/BMP Laboratory Tests 04/27/19 05:45 Microbiology Microbiology 04/25/19 Blood Culture - Preliminary, Resulted No growth after 24 hours . All specim... 04/25/19 Blood Culture - Preliminary, Resulted No growth after 24 hours . All specim... Discharge Medications Scheduled Cholecalciferol (Vitamin D3) (Vitamin D3) 2,000 Unit Tablet, 2,000 UNIT PO DAILY, (Reported) NOON Citalopram Hydrobromide (Citalopram HBr) 20 Mg Tab, 10 MG PO QHS, (Reported) Echinacea (Echinacea) 380 Mg Cap, 760 MG PO DAILY, (Reported) Gabapentin (Gabapentin) 100 Mg Capsule, 100 MG PO QHS, (Reported) Glipizide (Glipizide) 10 Mg Tab, 10 MG PO QAM, (Reported) Glipizide (Glipizide) 10 Mg Tablet, 5 MG PO QPM, (Reported) Metoprolol Tartrate (Metoprolol Tartrate) 50 Mg Tab, 50 MG PO BID, (Reported) Potassium Gluconate (Potassium) 99 Mg Tablet, 595 MG PO DAILY, (Reported) TAKES AT 1200 Torsemide (Torsemide) 20 Mg Tablet, 20 MG PO DAILY, (Reported) MAY TAKE ADDITIONAL TABLET NEEDED FOR SWELLING Warfarin Sodium (Warfarin Sodium) 4 Mg Tab, 4 MG PO QPM, (Reported) WITH SUPPER Scheduled PRN Acetaminophen (Tylenol Extra Strength) 500 Mg Tablet, 1,000 MG PO Q6H PRN for PAIN, (Reported) Polyethylene Glycol 3350 (Miralax) 119 Gm Powder, 17 GM PO QHS PRN for CONSTIPATION, (Reported) Allergies Coded Allergies: Webb (Verified Allergy, Severe, ANAPHYLAXIS, 11/09/14) Penicillins (Verified Allergy, Severe, Anaphylaxis, 07/02/18) metformin (Verified Allergy, Severe, Tongue swelling, 07/02/18) Jizksof-Czq-Jex Reductase Inhibitor (Verified Adverse Reaction, Intermediate, Altered Mental Status, 07/02/18) duloxetine (Unverified Adverse Reaction, Mild, Nausea and vomiting, 07/02/18) codeine (Verified Adverse Reaction, Unknown, "out of it". , 01/17/19) mixed with guifenasin TIA NESBITT MD Apr 27, 2019 11:36
--- NOTE | 2019-04-27 13:04 | REP ---
Right lower extremity: Brachial: -- Dorsalis pedis: Occluded . CORRUGATED FASTENER DRIVER: 220+ LYNNE: -- Peak Systolic Phasicity Velocity CHANGE RELEASE MANAGER 95.6 biphasic Profunda 48.8. biphasic SFA prox 51.8 biphasic SFA mid 44.7 biphasic SFA dist 102.0 biphasic Pop 41.6 triphasic RONY prox occluded -- Tib/P tr 37.2 triphasic CORRUGATED FASTENER DRIVER pr 43.4 triphasic CORRUGATED FASTENER DRIVER dst 56.0 monophasic RONY dst occluded -- Left lower extremity: Brachial:-- Dorsalis pedis: 220+ LYNNE:-- Peak Systolic Phasicity Velocity CHANGE RELEASE MANAGER 49.7 biphasic Profunda 36.0 biphasic SFA prox 45.2 biphasic SFA mid 38.1 triphasic SFA dist 74.3 triphasic Pop 64.3 triphasic RONY prox 354.0 biphasic Tib/P tr 63.9 monophasic CORRUGATED FASTENER DRIVER pr 273.0 monophasic CORRUGATED FASTENER DRIVER dst 15.6 monophasic RONY dst 20.1 monophasic Right lower extremity: There is mild plaque from the C F A to the distal SFA. There is 2:1 stenosis in the distal SFA. The A T A is occluded. Left lower extremity: There is mild plaque from the C F A to the distal SFA. The distal SFA is heavily calcified. There is 4:1 stenosis of the proximal left CORRUGATED FASTENER DRIVER, there is only a trickle of flow distally. There is 6:1 stenosis in the left proximal AT A. Electronically Signed by Loki Rievra MD 04/27/2019 12:55 P
== END 2019-04-27 14:30 | disposition home or self-care (01) | DRG 292 ==
LOC: M ED 04:34 → M ED INP 13:03 → ENRESERV 13:20 → M PCU 13:53 → M MSPAV 04-26 13:55
PROVIDERS: ADMIT Internal Medicine; ATTEND Internal Medicine
DX: I50.9 Heart failure, unspecified (principal); J90 Pleural effusion, not elsewhere classified; I48.20 Chronic atrial fibrillation, unspecified; E11.51 Type 2 diabetes mellitus with diabetic peripheral angiopathy without gangrene; I25.10 Atherosclerotic heart disease of native coronary artery without angina pectoris; Z95.1 Presence of aortocoronary bypass graft; Z95.2 Presence of prosthetic heart valve; Z86.73 Personal history of transient ischemic attack (TIA), and cerebral infarction without residual deficits; Z79.01 Long term (current) use of 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s; I25.2 Old myocardial infarction; Z79.899 Other long term (current) drug therapy; Z88.0 Allergy status to penicillin; Z88.5 Allergy status to narcotic agent; Z91.018 Allergy to other foods; Z88.8 Allergy status to other drugs, medicaments and biological substances

== ENCOUNTER → 2019-05-01 | Outpatient (REF) | payer MEDICARE, MEDICAID ==
[~2019-05-01] MED LIST changes: +D3 22000 PO
[2019-05-01 13:19] LABS: INR 2.8; PROTHROMBIN TIME 29.4 SECONDS (11.8-14.0)
== END ==
LOC: SKLABADC 09:56
PROVIDERS: ATTEND Family Medicine
DX: Z86.79 Personal history of other diseases of the circulatory system (principal); Z79.01 Long term (current) use of 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s

== ENCOUNTER → 2019-05-08 | Outpatient (REF) | payer MEDICARE, MEDICAID ==
[2019-05-08 11:47] LABS: CALCIUM LEVEL 8.6 MG/DL (8.8-10.2); CREATININE FOR GFR 2.72 MG/DL (0.70-1.30); GLOMERULAR FILTRATION RATE 24.5 (>42)
== END ==
LOC: SKLABADC 09:48
PROVIDERS: ATTEND Family Medicine
DX: N18.3 Chronic kidney disease, stage 3 (moderate) (principal)

== ENCOUNTER → 2019-05-27 | Outpatient (REF) | payer MEDICARE, MEDICAID ==
[~2019-05-27] MED LIST changes: -SUCR10SS GT; +SUCR1ORA2 GT
[2019-05-27 10:43] LABS: INR 2.13; PROTHROMBIN TIME 23.6 SECONDS (11.8-14.0)
== END ==
LOC: SKLABADC 09:35
PROVIDERS: ATTEND Family Medicine
DX: I63.81 Other cerebral infarction due to occlusion or stenosis of small artery (principal); Z79.01 Long term (current) use of 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s

== ENCOUNTER 2019-05-31 11:13 | Emergency (ER) | payer MEDICARE, MEDICAID ==
[~2019-05-31] VITALS: Ht 175.3 cm; Wt 86.9 kg
[2019-05-31] MEDS ORDERED: SANT250O8 (12:06)
[2019-05-31] MEDS ORDERED: TRAM50TA2 (12:06)
[2019-05-31 12:39] LABS: BASO % 0.6 % (0.0-1.0); EOS # 0.4 10^3/uL (0.0-0.5); EOS % 5.2 % (0.0-3.0); HEMATOCRIT 30.5 % (42.0-52.0); HEMOGLOBIN 9.8 g/dl (13.5-17.5); LYMPH # 0.9 10^3/uL (1.5-5.0); LYMPH % 13.4 % (24.0-44.0); MEAN CORPUSCULAR HEMOGLOBIN 32.7 pg (27.0-33.0); MEAN CORPUSCULAR HGB CONC 32.1 g/dl (32.0-36.5); MEAN CORPUSCULAR VOLUME 101.7 fl (80.0-96.0); MONO # 0.6 10^3/uL (0.0-0.8); NEUTROPHILS # 5.1 10^3/uL (1.5-8.5); NEUTROPHILS % 72.4 % (36.0-66.0); PLATELET COUNT, AUTOMATED 113 10^3/uL (150-450)
[2019-05-31 12:49] LABS: INR 2.5; PROTHROMBIN TIME 26.9 SECONDS (11.8-14.0)
[2019-05-31 13:07] LABS: INFLUENZA A AMPLIFICATION NEGATIVE (NEGATIVE); INFLUENZA B AMPLIFICATION NEGATIVE (NEGATIVE)
[2019-05-31 13:18] LABS: ALBUMIN 3.4 GM/DL (3.2-5.2); BILIRUBIN,DIRECT 0.2 MG/DL (0.0-0.2); BILIRUBIN,TOTAL 0.6 MG/DL (0.2-1.0); CALCIUM LEVEL 8.6 MG/DL (8.8-10.2); CREATININE FOR GFR 2.34 MG/DL (0.70-1.30); GLOMERULAR FILTRATION RATE 29.2 (>42); POTASSIUM SERUM 4.1 MEQ/L (3.5-5.1); THYROID STIMULATING HORMONE 4.77 uIU/ML (0.358-3.740); TOTAL PROTEIN 8.2 GM/DL (6.4-8.2); TROPONIN I 0.02 NG/ML (< 0.10)
--- NOTE | 2019-05-31 13:20 | REP ---
PA and lateral chest: Comparisons are the portable chest dated 02/23/2020 and PA and lateral chest of 02/05/2019 as well as a chest CT dated 02/24/2020. There is a focal large density inferolaterally in the right lung. On the comparison CT. This was a partially loculated pleural fluid collection. It is unchanged in size. Lung sahu otherwise clear. Cardiac size is upper normal. There are sternotomy wires. The deisy, mediastinum, skeletal structures are unremarkable. There is a cardiac valve replacement. Impression: The partially loculated pleural fluid collection inferolaterally on the right, similar appearance to the comparison CT of 04/25/2019. Electronically Signed by Loki Rivera MD 05/31/2019 01:11 P
[2019-05-31 18:30] VITALS: BP 180/88
[2019-05-31] MEDS ORDERED: KETOROLAC 30 MG/ML VIAL (J1885) IV ONE (18:30)
--- NOTE | 2019-05-31 20:58 | ECGEPIP ---
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
--- NOTE | 2019-06-01 10:59 | ED PDOC ---
Post-Departure Follow-Up dr asher faxed formal report of cxr for fu Uri Ch MD Jun 01, 2019 10:59
== END 2019-05-31 18:37 | disposition home or self-care (01) ==
LOC: M ED 11:13
DX: E87.70 Fluid overload, unspecified (principal); I11.0 Hypertensive heart disease with heart failure; I25.10 Atherosclerotic heart disease of native coronary artery without angina pectoris; E11.9 Type 2 diabetes mellitus without complications; G47.33 Obstructive sleep apnea (adult) (pediatric); Z86.73 Personal history of transient ischemic attack (TIA), and cerebral infarction without residual deficits; Z95.1 Presence of aortocoronary bypass graft; Z87.891 Personal history of nicotine dependence; Z95.4 Presence of other heart-valve replacement; Z79.84 Long term (current) use of oral hypoglycemic drugs; Z79.02 Long term (current) use of antithrombotics/antiplatelets; Z79.899 Other long term (current) drug therapy; Z91.018 Allergy to other foods; Z88.0 Allergy status to penicillin; Z88.8 Allergy status to other drugs, medicaments and biological substances; Z88.5 Allergy status to narcotic agent

== ENCOUNTER → 2019-06-03 | Outpatient (REF) | payer MEDICARE, MEDICAID ==
[~2019-06-03] MED LIST changes: +SANT250O8; +TRAM50TA2
[2019-06-03 18:51] LABS: COMPLEMENT C3 120 MG/DL (90-180); COMPLEMENT C4 21 MG/DL (10-40)
== END ==
LOC: M LAB REF 17:46
PROVIDERS: ATTEND Internal Medicine Nephrology
DX: R80.9 Proteinuria, unspecified (principal)

== ENCOUNTER → 2019-06-22 | Outpatient (REF) | payer MEDICARE, MEDICAID ==
[2019-06-23 12:05] LABS: CALCIUM LEVEL 8.7 MG/DL (8.8-10.2); CHOLESTEROL RISK RATIO 6.571 (<5); CREATININE FOR GFR 2.5 MG/DL (0.70-1.30); POTASSIUM SERUM 4.6 MEQ/L (3.5-5.1)
[2019-06-23 13:23] LABS: HEMOGLOBIN A1c 8.1 %
== END ==
LOC: M SFHCCLAY 15:19
PROVIDERS: ATTEND Family Medicine
DX: E11.22 Type 2 diabetes mellitus with diabetic chronic kidney disease (principal)
CPT/HCPCS: 15271; 80048; 80061; 83036; 85610; G0463; Q4186

== ENCOUNTER 2019-07-16 09:51 | Emergency (ER) | payer MEDICARE, MEDICAID ==
--- NOTE | 2019-07-16 11:03 | REP ---
PORTABLE CHEST X-RAY: SINGLE VIEW. HISTORY: Dyspnea and cough. COMPARISON CHEST X-RAY: May 31, 2019. FINDINGS: The patient is status post aortic valve replacement via median sternotomy. Monitoring electrodes are seen. The previously noted fissural fluid has resolved. Heart size is borderline. Pulmonary vasculature is not increased. Pleural angles are sharp. No significant bony abnormality. IMPRESSION: Mildly prominent heart status post aortic valve replacement. No acute infiltrate seen. No evidence of pleural effusion or pulmonary edema. Electronically Signed by Jesus Moser MD 07/16/2019 11:42 A
[2019-07-16 11:05] LABS: BASO # 0.1 10^3/uL (0.0-0.2); BASO % 0.6 % (0.0-1.0); EOS # 0.3 10^3/uL (0.0-0.5); EOS % 4.2 % (0.0-3.0); HEMATOCRIT 34.7 % (42.0-52.0); HEMOGLOBIN 11.4 g/dl (13.5-17.5); LYMPH # 1.5 10^3/uL (1.5-5.0); LYMPH % 19.3 % (24.0-44.0); MEAN CORPUSCULAR HEMOGLOBIN 32.7 pg (27.0-33.0); MEAN CORPUSCULAR HGB CONC 32.9 g/dl (32.0-36.5); MEAN CORPUSCULAR VOLUME 99.4 fl (80.0-96.0); MONO # 0.8 10^3/uL (0.0-0.8); MONO % 10.4 % (0.0-5.0); NEUTROPHILS # 5.1 10^3/uL (1.5-8.5); PLATELET COUNT, AUTOMATED 123 10^3/uL (150-450); RED BLOOD COUNT 3.49 10^6/uL (4.30-6.10); WHITE BLOOD COUNT 7.8 10^3/uL (4.0-10.0)
[2019-07-16 11:31] LABS: ALBUMIN 3.2 GM/DL (3.2-5.2); ALT/SGPT 37 U/L (12-78); BILIRUBIN,DIRECT < 0.1 MG/DL (0.0-0.2); BILIRUBIN,TOTAL 0.4 MG/DL (0.2-1.0); BLOOD UREA NITROGEN 54 MG/DL (7-18); CALCIUM LEVEL 9.1 MG/DL (8.8-10.2); CARBON DIOXIDE LEVEL 26 MEQ/L (21-32); CHLORIDE LEVEL 105 MEQ/L (98-107); CK-MB VALUE MASS 4.6 NG/ML (<3.6); CPK CREATINE PHOSPHOKINASE 95 U/L (39-308); CREATININE FOR GFR 2.28 MG/DL (0.70-1.30); GLUCOSE, FASTING 178 MG/DL (70-100); MB/CK RELATIVE INDEX 4.84 (< OR =4); NT-PRO BNP 1780 PG/ML (<125); POTASSIUM SERUM 4.7 MEQ/L (3.5-5.1); SODIUM LEVEL 138 MEQ/L (136-145); TOTAL PROTEIN 8.4 GM/DL (6.4-8.2); TROPONIN I 0.02 NG/ML (< 0.10)
[2019-07-16 12:19] VITALS: BP 166/84
--- NOTE | 2019-07-17 12:25 | ECGEPIP ---
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
== END 2019-07-16 12:30 | disposition home or self-care (01) ==
LOC: M ED 09:51
DX: N18.3 Chronic kidney disease, stage 3 (moderate) (principal); R63.5 Abnormal weight gain; Z95.2 Presence of prosthetic heart valve; I48.91 Unspecified atrial fibrillation; I25.10 Atherosclerotic heart disease of native coronary artery without angina pectoris; I25.2 Old myocardial infarction; I10 Essential (primary) hypertension; E11.9 Type 2 diabetes mellitus without complications; E78.5 Hyperlipidemia, unspecified; D64.9 Anemia, unspecified; Z86.73 Personal history of transient ischemic attack (TIA), and cerebral infarction without residual deficits; Z95.1 Presence of aortocoronary bypass graft; Z86.14 Personal history of Methicillin resistant Staphylococcus aureus infection; Z79.01 Long term (current) use of 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s; Z79.84 Long term (current) use of oral hypoglycemic drugs; Z79.899 Other long term (current) drug therapy; Z88.0 Allergy status to penicillin; Z88.8 Allergy status to other drugs, medicaments and biological substances; Z88.5 Allergy status to narcotic agent; Z91.018 Allergy to other foods

== ENCOUNTER → 2019-09-22 | Outpatient (REF) | payer MEDICARE, MEDICAID ==
[~2019-09-22] MED LIST changes: -COUM1TAB14 GT; +COUM4TAB8 GT; +VITA-243 GT; -VITA500T GT
[2019-09-23 14:18] LABS: BASO # 0.1 10^3/uL (0.0-0.2); BASO % 0.7 % (0.0-1.0); EOS # 0.3 10^3/uL (0.0-0.5); EOS % 4.2 % (0.0-3.0); HEMATOCRIT 33.1 % (42.0-52.0); HEMOGLOBIN 11.3 g/dl (13.5-17.5); LYMPH # 1.3 10^3/uL (1.5-5.0); LYMPH % 18.4 % (24.0-44.0); MEAN CORPUSCULAR HEMOGLOBIN 34.3 pg (27.0-33.0); MEAN CORPUSCULAR HGB CONC 34.1 g/dl (32.0-36.5); MEAN CORPUSCULAR VOLUME 100.6 fl (80.0-96.0); MONO # 0.7 10^3/uL (0.0-0.8); MONO % 9.4 % (0.0-5.0); NEUTROPHILS # 4.8 10^3/uL (1.5-8.5); NEUTROPHILS % 66.6 % (36.0-66.0); RED BLOOD COUNT 3.29 10^6/uL (4.30-6.10); WHITE BLOOD COUNT 7.1 10^3/uL (4.0-10.0)
[2019-09-23 14:40] LABS: ALBUMIN 3.4 GM/DL (3.2-5.2); BILIRUBIN,TOTAL 0.3 MG/DL (0.2-1.0); CALCIUM LEVEL 8.5 MG/DL (8.8-10.2); CREATININE FOR GFR 2.38 MG/DL (0.70-1.30); GLOMERULAR FILTRATION RATE 28.6 (>42); POTASSIUM SERUM 4.5 MEQ/L (3.5-5.1); TOTAL PROTEIN 7.5 GM/DL (6.4-8.2)
[2019-09-23 15:21] LABS: HEMOGLOBIN A1c 8.4 %
== END ==
LOC: M SFHCCLAY 14:46
PROVIDERS: ATTEND Family Medicine
DX: E11.22 Type 2 diabetes mellitus with diabetic chronic kidney disease (principal)
CPT/HCPCS: 80053; 83036; 85025; G0463

== ENCOUNTER → 2019-10-26 | Outpatient (REF) | payer MEDICARE, MEDICAID ==
[~2019-10-26] MED LIST changes: -AMLO10TA5 GT; -AMLO10TA5 PO; +AMLO1TAB24 PO; +AMLO1TAB25 GT; +AMLO1TAB25 PO; -AMLO5TAB6 PO; +PANT40TA29 PO; -PANT40TA3 PO; +VITA200020 PO
[2019-10-26 11:57] LABS: BASO % 0.4 % (0.0-1.0); EOS # 0.3 10^3/uL (0.0-0.5); EOS % 3.9 % (0.0-3.0); HEMATOCRIT 32.7 % (42.0-52.0); HEMOGLOBIN 11.1 g/dl (13.5-17.5); LYMPH # 1.3 10^3/uL (1.5-5.0); LYMPH % 15.6 % (24.0-44.0); MEAN CORPUSCULAR HEMOGLOBIN 33.9 pg (27.0-33.0); MEAN CORPUSCULAR HGB CONC 33.9 g/dl (32.0-36.5); MONO # 0.8 10^3/uL (0.0-0.8); NEUTROPHILS # 5.7 10^3/uL (1.5-8.5); NEUTROPHILS % 69.5 % (36.0-66.0); PLATELET COUNT, AUTOMATED 111 10^3/uL (150-450); RED BLOOD COUNT 3.27 10^6/uL (4.30-6.10); WHITE BLOOD COUNT 8.2 10^3/uL (4.0-10.0)
[2019-10-26 12:16] LABS: CALCIUM LEVEL 8.6 MG/DL (8.8-10.2); CREATININE FOR GFR 2.67 MG/DL (0.70-1.30); POTASSIUM SERUM 4.3 MEQ/L (3.5-5.1)
== END ==
LOC: M SFHCCLAY 09:16
PROVIDERS: ATTEND Family Medicine
DX: E11.22 Type 2 diabetes mellitus with diabetic chronic kidney disease (principal); N18.3 Chronic kidney disease, stage 3 (moderate)
CPT/HCPCS: 80048; 85025; G0463

== ENCOUNTER 2019-11-06 09:50 | Emergency (ER) | payer MEDICARE, MEDICAID ==
[~2019-11-06 09:50] MED LIST changes: -VITA200020 PO
[2019-11-06] MEDS ORDERED: MORPHINE 2 MG/ML 1ML VIAL (J2270) As Ordered ONE (11:31)
[2019-12-13 16:09] LABS: APPEARANCE, URINE CLEAR (CLEAR); BACTERIA, URINE AUTO NEGATIVE (NEGATIVE); BILIRUBIN, URINE AUTO NEGATIVE (NEGATIVE); BLOOD, URINE BLOOD 1+ (NEGATIVE); COLOR, URINE YELLOW (YELLOW); GLUCOSE, URINE (UA) AUTO 1+ mg/dL (NEGATIVE); KETONE, URINE AUTO NEGATIVE (NEGATIVE); LEUKOCYTE ESTERASE, URINE AUTO NEGATIVE (NEGATIVE); NITRITE, URINE AUTO NEGATIVE (NEGATIVE); PROTEIN, URINE AUTO 2+ mg/dL (NEGATIVE); RBC, URINE AUTO 4 /HPF (0-3); SPECIFIC GRAVITY URINE AUTO 1.011 (1.002-1.035); SQUAMOUS EPITHELIAL CELL UR AU 0 /HPF (0-6); UROBILINOGEN, URINE AUTO 0.2 mg/dL (0.0-2.0); WBC, URINE AUTO 1 /HPF (0-3)
[2019-12-13 17:08] LABS: BASO # 0.1 10^3/uL (0.0-0.2); BASO % 0.6 % (0.0-1.0); EOS # 0.4 10^3/uL (0.0-0.5); EOS % 4.8 % (0.0-3.0); HEMATOCRIT 35.5 % (42.0-52.0); HEMOGLOBIN 11.8 g/dl (13.5-17.5); LYMPH # 1.3 10^3/uL (1.5-5.0); LYMPH % 16.4 % (24.0-44.0); MEAN CORPUSCULAR HEMOGLOBIN 33.4 pg (27.0-33.0); MEAN CORPUSCULAR HGB CONC 33.2 g/dl (32.0-36.5); MEAN CORPUSCULAR VOLUME 100.6 fl (80.0-96.0); MONO # 0.8 10^3/uL (0.0-0.8); MONO % 10.2 % (0.0-5.0); NEUTROPHILS # 5.3 10^3/uL (1.5-8.5); NEUTROPHILS % 67.4 % (36.0-66.0); PLATELET COUNT, AUTOMATED 110 10^3/uL (150-450); RED BLOOD COUNT 3.53 10^6/uL (4.30-6.10); WHITE BLOOD COUNT 7.9 10^3/uL (4.0-10.0)
[2019-12-13 18:07] LABS: INR 2.27; PARTIAL THROMBOPLASTIN TIME 37.3 SECONDS (25.0-38.4); PROTHROMBIN TIME 25.5 SECONDS (11.8-14.0)
[2020-01-16 11:26] LABS: ALBUMIN 3.4 GM/DL (3.2-5.2); BILIRUBIN,DIRECT 0.1 MG/DL (0.0-0.2); BILIRUBIN,TOTAL 0.5 MG/DL (0.2-1.0); CALCIUM LEVEL 8.7 MG/DL (8.8-10.2); CREATININE FOR GFR 2.83 MG/DL (0.70-1.30); GLOMERULAR FILTRATION RATE 23.4 (>42); POTASSIUM SERUM 4.2 MEQ/L (3.5-5.1); TOTAL PROTEIN 8.1 GM/DL (6.4-8.2)
== END 2019-11-06 14:13 | disposition home or self-care (01) ==
LOC: M ED 09:50
DX: M54.10 Radiculopathy, site unspecified (principal); K42.9 Umbilical hernia without obstruction or gangrene; N18.9 Chronic kidney disease, unspecified; E11.9 Type 2 diabetes mellitus without complications; Z79.01 Long term (current) use of 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s; Z79.84 Long term (current) use of oral hypoglycemic drugs; Z88.8 Allergy status to other drugs, medicaments and biological substances; Z88.0 Allergy status to penicillin; Z91.041 Radiographic dye allergy status; Z95.1 Presence of aortocoronary bypass graft; Z95.2 Presence of prosthetic heart valve
CPT/HCPCS: 71046; 74176; 80048; 80076; 81001; 83605; 83690; 85025; 85610; 85730; 87086; 96361; 96374; 99284; J2270

== ENCOUNTER 2019-11-09 09:09 | Emergency (ER) | payer MEDICARE, MEDICAID ==
[~2019-11-09 09:09] MED LIST changes: +MAGNESIUM CITRATE 300 ML BTL ONE; +METOPROLOL TART 50 MG TAB As Ordered ONE; +METOPROLOL TART 50 MG TAB ONE; +PROMETHAZINE INJ 25 MG/ML VIAL (J2550) As Ordered ONE; +PROMETHAZINE INJ 25 MG/ML VIAL (J2550) ONE
[2019-11-09] MEDS ORDERED: MAGNESIUM CITRATE 300 ML BTL As Ordered ONE (09:10)
[2019-11-09] MEDS ORDERED: LIDOCAINE 4% CREAM 5GM (LMX4) ONE (13:40)
[2019-11-09] MEDS ORDERED: PROMETHAZINE INJ 25 MG/ML VIAL (J2550) ONE (13:40)
[2019-11-09] MEDS ORDERED: LIDOCAINE 4% CREAM 5GM (LMX4) As Ordered ONE (13:40)
[2019-11-09] MEDS ORDERED: PROMETHAZINE INJ 25 MG/ML VIAL (J2550) As Ordered ONE (13:44)
[2019-12-06 06:57] LABS: APPEARANCE, URINE CLEAR (CLEAR); BACTERIA, URINE AUTO NEGATIVE (NEGATIVE); BILIRUBIN, URINE AUTO NEGATIVE (NEGATIVE); BLOOD, URINE BLOOD 1+ (NEGATIVE); COLOR, URINE YELLOW (YELLOW); GLUCOSE, URINE (UA) AUTO 3+ mg/dL (NEGATIVE); KETONE, URINE AUTO NEGATIVE (NEGATIVE); LEUKOCYTE ESTERASE, URINE AUTO NEGATIVE (NEGATIVE); MUCUS, URINE SMALL (NEGATIVE); NITRITE, URINE AUTO NEGATIVE (NEGATIVE); PROTEIN, URINE AUTO 2+ mg/dL (NEGATIVE); RBC, URINE AUTO 2 /HPF (0-3); SPECIFIC GRAVITY URINE AUTO 1.011 (1.002-1.035); SQUAMOUS EPITHELIAL CELL UR AU 0 /HPF (0-6); UROBILINOGEN, URINE AUTO 0.2 mg/dL (0.0-2.0); WBC, URINE AUTO 1 /HPF (0-3)
[2019-12-06 06:59] LABS: INR 2.52; PARTIAL THROMBOPLASTIN TIME 47.8 SECONDS (25.0-38.4); PROTHROMBIN TIME 27.7 SECONDS (11.8-14.0)
[2019-12-06 07:02] LABS: BASO # 0.1 10^3/uL (0.0-0.2); BASO % 0.5 % (0.0-1.0); EOS # 0.4 10^3/uL (0.0-0.5); EOS % 3.9 % (0.0-3.0); HEMATOCRIT 34.3 % (42.0-52.0); HEMOGLOBIN 11.4 g/dl (13.5-17.5); LYMPH # 1.2 10^3/uL (1.5-5.0); LYMPH % 11.9 % (24.0-44.0); MEAN CORPUSCULAR HEMOGLOBIN 33.4 pg (27.0-33.0); MEAN CORPUSCULAR HGB CONC 33.2 g/dl (32.0-36.5); MEAN CORPUSCULAR VOLUME 100.6 fl (80.0-96.0); MONO # 0.8 10^3/uL (0.0-0.8); MONO % 7.6 % (0.0-5.0); NEUTROPHILS # 7.6 10^3/uL (1.5-8.5); NEUTROPHILS % 75.5 % (36.0-66.0); RED BLOOD COUNT 3.41 10^6/uL (4.30-6.10); WHITE BLOOD COUNT 10.1 10^3/uL (4.0-10.0)
--- NOTE | 2019-12-23 15:51 | ECGEPIP ---
SINUS RHYTHM LEFT ANTERIOR FASCICULAR BLOCK NONSPECIFIC ST & T-WAVE ABNORMALITY PROLONGED QT INTERVAL ABNORMAL ECG CLINCIAL CORRELATE SEE SCANNED DOWNTIME REPORT MTDD
[2020-01-06 15:46] LABS: ALBUMIN 3.6 GM/DL (3.2-5.2); ALT/SGPT 24 U/L (12-78); BILIRUBIN,DIRECT 0.2 MG/DL (0.0-0.2); BILIRUBIN,TOTAL 0.8 MG/DL (0.2-1.0); BLOOD UREA NITROGEN 48 MG/DL (7-18); CALCIUM LEVEL 9.1 MG/DL (8.8-10.2); CARBON DIOXIDE LEVEL 24 MEQ/L (21-32); CHLORIDE LEVEL 107 MEQ/L (98-107); CK-MB VALUE MASS 4.7 NG/ML (<3.6); CPK CREATINE PHOSPHOKINASE 109 U/L (39-308); CREATININE FOR GFR 2.65 MG/DL (0.70-1.30); FREE T4 1.25 NG/DL (0.76-1.46); GLOMERULAR FILTRATION RATE 25.3 (>42); GLUCOSE, FASTING 208 MG/DL (70-100); LIPASE 90 U/L (73-393); MAGNESIUM LEVEL 2.3 MG/DL (1.8-2.4); MB/CK RELATIVE INDEX 4.31 (< OR =4); POTASSIUM SERUM 4.9 MEQ/L (3.5-5.1); SODIUM LEVEL 139 MEQ/L (136-145); TOTAL PROTEIN 8.3 GM/DL (6.4-8.2); TROPONIN I < 0.02 NG/ML (< 0.10)
== END 2019-11-09 14:30 | disposition home or self-care (01) ==
LOC: M ED 09:09
DX: B02.9 Zoster without complications (principal); E11.9 Type 2 diabetes mellitus without complications; I10 Essential (primary) hypertension; E78.5 Hyperlipidemia, unspecified; N18.9 Chronic kidney disease, unspecified; K87 Disorders of gallbladder, biliary tract and pancreas in diseases classified elsewhere; K80.20 Calculus of gallbladder without cholecystitis without obstruction; I44.4 Left anterior fascicular block; M19.012 Primary osteoarthritis, left shoulder; I25.2 Old myocardial infarction; Z86.73 Personal history of transient ischemic attack (TIA), and cerebral infarction without residual deficits; Z95.1 Presence of aortocoronary bypass graft; Z95.2 Presence of prosthetic heart valve; Z79.84 Long term (current) use of oral hypoglycemic drugs; Z79.899 Other long term (current) drug therapy; Z88.0 Allergy status to penicillin; Z88.8 Allergy status to other drugs, medicaments and biological substances; Z91.041 Radiographic dye allergy status

== ENCOUNTER → 2019-12-21 | Outpatient (REF) | payer MEDICARE, MEDICAID ==
[~2019-12-21] MED LIST changes: +CLIN150C14 PO; -MAGNESIUM CITRATE 300 ML BTL ONE; -METOPROLOL TART 50 MG TAB As Ordered ONE; -METOPROLOL TART 50 MG TAB ONE; -PROMETHAZINE INJ 25 MG/ML VIAL (J2550) As Ordered ONE; -PROMETHAZINE INJ 25 MG/ML VIAL (J2550) ONE; +VITA200020 PO
[2019-12-21 17:03] LABS: FREE T4 0.77 NG/DL (0.76-1.46); THYROID STIMULATING HORMONE 2.67 uIU/ML (0.358-3.740)
[2019-12-28 12:07] LABS: ANTINUCLEAR ANTIBODIES DIRECT Negative (Negative); VITAMIN B1 LEVEL WHOLE BLOOD 107.2 nmol/L (66.5-200.0); VITAMIN B6,PYRIDOXAL PHOSPHATE 14.5 ug/L (5.3-46.7); VITAMIN E(ALPHA TOCOPHEROL) 12.4 mg/L (9.0-29.0); VITAMIN E(GAMMA TOCOPHEROL) 1.5 mg/L (0.5-4.9)
== END ==
LOC: M LABDRAWC 16:23
PROVIDERS: ATTEND Psychiatry & Neurology Neurology
DX: F03.90 Unspecified dementia, unspecified severity, without behavioral disturbance, psychotic disturbance, mood disturbance, and anxiety (principal); E07.9 Disorder of thyroid, unspecified

== ENCOUNTER → 2020-01-04 | Outpatient (REF) | payer MEDICARE, MEDICAID ==
[2020-01-04 17:29] LABS: CALCIUM LEVEL 8.8 MG/DL (8.8-10.2); CREATININE FOR GFR 2.34 MG/DL (0.70-1.30); GLOMERULAR FILTRATION RATE 29.2 (>42)
[2020-01-04 18:37] LABS: HEMOGLOBIN A1c 7.7 %
== END ==
LOC: M SFHCCLAY 16:23
PROVIDERS: ATTEND Family Medicine
DX: E11.9 Type 2 diabetes mellitus without complications (principal); I12.9 Hypertensive chronic kidney disease with stage 1 through stage 4 chronic kidney disease, or unspecified chronic kidney disease; N18.3 Chronic kidney disease, stage 3 (moderate)
CPT/HCPCS: 36415; 80048; 83036; G0463

== ENCOUNTER 2020-02-17 11:48 | Inpatient (IN) | payer MEDICARE, MEDICAID ==
[~2020-02-17] VITALS: Ht 177.8 cm; Wt 90.5 kg
[~2020-02-17 11:48] MED LIST changes: -CLIN150C14 PO; -VITA200020 PO
[2020-02-17] MEDS ORDERED: NITROGLYCERIN 2% OINT 1 GM *U/D* PKT TOP ONE (12:30)
[2020-02-17 12:39] LABS: VENOUS BASE EXCESS -2.7 (-2.0-2.0); VENOUS HCO3 24.8 MEQ/L (23.0-27.0); VENOUS O2 SATURATION 37.2 % (60.0-80.0); VENOUS PARTIAL PRESSURE CO2 55.3 mmHg (38.0-50.0); VENOUS PARTIAL PRESSURE O2 24.9 mmHg (30.0-50.0); VENOUS TOTAL CO2 26.5 MEQ/L (24.0-28.0)
[2020-02-17 12:47] LABS: BASO % 0.3 % (0.0-1.0); EOS # 0.2 10^3/uL (0.0-0.5); HEMATOCRIT 34.8 % (42.0-52.0); HEMOGLOBIN 11.4 g/dl (13.5-17.5); LYMPH % 11.8 % (24.0-44.0); MEAN CORPUSCULAR HEMOGLOBIN 33.2 pg (27.0-33.0); MEAN CORPUSCULAR HGB CONC 32.8 g/dl (32.0-36.5); MEAN CORPUSCULAR VOLUME 101.5 fl (80.0-96.0); MONO # 0.7 10^3/uL (0.0-0.8); MONO % 7.5 % (0.0-5.0); NEUTROPHILS # 6.7 10^3/uL (1.5-8.5); NEUTROPHILS % 77.6 % (36.0-66.0); PLATELET COUNT, AUTOMATED 112 10^3/uL (150-450); RED BLOOD COUNT 3.43 10^6/uL (4.30-6.10); WHITE BLOOD COUNT 8.6 10^3/uL (4.0-10.0)
--- NOTE | 2020-02-17 12:49 | REP ---
INDICATION: DYSPNEA/COUGH. COMPARISON: Comparison chest x-ray November 06, 2019.. TECHNIQUE: Sitting AP portable exam. FINDINGS: There is a large dense lobar infiltrate in the right lower lobe consistent with pneumonia. This is a new finding. Mild interstitial fibrosis changes are noted in the left base. Patient is status post aortic valve replacement and median sternotomy wires are seen. Monitoring electrodes are noted along with oxygen delivery tubing. Pulmonary vasculature is somewhat cephalized. No other infiltrate. IMPRESSION: Lobar infiltrate with dense consolidation right lower lobe consistent with pneumonia. <Electronically signed by Ortega Moser > 02/17/20 [id number]
[2020-02-17 13:16] LABS: ALBUMIN 3.4 GM/DL (3.2-5.2); BILIRUBIN,DIRECT 0.1 MG/DL (0.0-0.2); BILIRUBIN,TOTAL 0.4 MG/DL (0.2-1.0); CALCIUM LEVEL 8.7 MG/DL (8.8-10.2); CREATININE FOR GFR 2.75 MG/DL (0.70-1.30); GLOMERULAR FILTRATION RATE 24.1 (>42); POTASSIUM SERUM 4.3 MEQ/L (3.5-5.1); TOTAL PROTEIN 7.4 GM/DL (6.4-8.2)
[2020-02-17] MEDS ORDERED: cefTRIAXone SOD 2 GM in D5W MINI-BAG PLUS 50 ML IV ONE (14:15)
[2020-02-17] MEDS ORDERED: WARF-20 PO (14:20)
[2020-02-17] MEDS ORDERED: VITA200020 PO (14:20)
--- NOTE | 2020-02-17 14:20 | REP ---
INDICATION: effusion/pneumonia right. COMPARISON: Portable chest today, PA and lateral 11/06/2019, CT 04/25/2019 TECHNIQUE: Noncontrast images of the chest with coronal sagittal reconstructions provided. FINDINGS: Lung fluid show new extensive consolidation of almost all of the right middle lobe with air bronchograms and dense opacity there also extensive consolidation changes in the right lower lobe but sparing the posterior and lateral basal segments in part. No effusion in the deep sulcus. There is fluid in the major fissure on the right. Right upper lobe only has a few scattered patchy areas of ground-glass opacity. Left lung shows some patchy ground-glass density in the superior segment along with curvilinear fibrotic changes in the lower lobes there there is cylindrical bronchiectatic change throughout. Left upper lobe is spared. Heart is enlarged with left atrial and ventricular enlargement tear there are calcifications at the aortic root ascending aorta and arch and descending aorta. Mitral valve calcifications noted, and aortic valve replacement and there are also noted coronary artery calcifications. There are granulomatous calcifications in nodes in the mediastinum. No pathologic sized adenopathy in the mediastinum. There is calcification or wall of the distal esophagus as best seen on image 79 unchanged no gross hiatal hernia. Calcified hilar and mediastinal nodes but no pathologic sized adenopathy in the mediastinal or hilar regions axillary and supraclavicular regions without mass or adenopathy. Bone windows show degenerative changes throughout the thoracic spine there is old grade 1 superior endplate compression of the T12 stable. Marginal osteophytes throughout the visualized thoracic and lower cervical spine. Sternotomy wires are seen. I do not see a solid fusion at the sternum at this time. Visualized ribs clavicles scapulae and humeral heads were without acute finding. The upper abdomen that portion of liver spleen pancreas and adrenal gland seen unremarkable gallbladder with some layering dense sludge or stones. Kidneys show some cysts, appearance unchanged IMPRESSION: 1. New and extensive lobar pneumonia involving the right middle lobe in several segments of the right lower lobe of without definite effusion in the deep sulcus but with fluid along the major fissure the right side. Few other scattered areas of ground-glass opacity and fibrotic changes superior segment of left lower lobe. Diffuse lytic or bronchiectasis. 2. Sternotomy wires with aortic valve replacement, coronary artery calcifications, mitral valve annular calcifications and aortic atherosclerotic calcifications. 3. Cardiomegaly with left atrial and ventricular enlargement and right heart enlargement no other new or acute finding. <Electronically signed by Corey Guerin > 02/17/20 1991
[2020-02-17] MEDS ORDERED: GABAPENTIN 100 MG CAP PO PRN (16:15)
--- NOTE | 2020-02-17 16:19 | HPEPDOC ---
[facility] Medical History & Physical Date of Admission Feb 17, 2020 Date of Service: Feb 17, 2020 Attending Physician: LISA RANGEL MD History and Physical CHIEF COMPLAINT: SHORTNESS OF BREATH HISTORY OF PRESENT ILLNESS: Mr. Bernrad is a pleasant, 75 yo M with a hx of CAD, CHF, afib on coumadin, CKD, DM2, Aortic valve replacement, CVA x 2 (last 05/2018, R sided deficits), presented to [facility] ED after he developed worsening dyspnea at home this morning. He reports feeling chest discomfort and profound cough, without sputum. He denies subjective fevers, chills, palpitations, as well as n/v/d. He reports that since his CVA, he has numerous bouts of pneumonia, and states ~6 admissions for same. He does not eat a mechanically modified diet. Vitals and labs reviewed. BP 190/85, T 98/2, HR 71. RR 22. SpO2 91% on 3L NC. WBC 8.6. Hgb 11.4. MCV 101.5. NA 140. K 4.3. Cr 2.75. LA 1.1. BNP 1451. COVID-[address] chest and CXR reviewed, findings c/w R middle and lower lobe pneumonia as well as likely fluid overload. Patient admitted for treatment of likely aspiration pneumonia with likely acute on chronic CHF exacerbation. PAST MEDICAL HISTORY: 1. CHF. 2. Coronary artery disease s/p CABG 3. Peripheral vascular disease. 4. CVA x2 5. Atrial fibrillation. 6. Diabetes mellitus. 7. IA 8. PAD PAST SURGICAL HISTORY: 1. CABG. 2. Aortic valve replacement. 3. Back surgery. SOCIAL HISTORY: Patient denies smoking Patient denies etoh use Patient denies illicit drug use FAMILY HISTORY: Reviewed with patient, no significant family history ALLERGIES: Please see below. REVIEW OF SYSTEMS: CONSTITUTIONAL: patient denies fevers, chills HEENT: patient denies blurred vision, loss of vision, headache,. CARDIOVASCULAR: patient denies chest pain, palpitations. RESPIRATORY: Patient or shortness of breath, cough. GASTROINTESTINAL: patient denies abdominal pain, n/v/d, blood in stool. GENITOURINARY: patient denies dysuria, discharge. SKIN: patient denies rashes. MUSCULOSKELETAL: patient denies joint pain, neck pain. NEUROLOGICAL: patient denies focal weakness, numbness, seizures. PSYCHIATRIC: patient denies SI/HI. ENDOCRINE: patient denies polyuria, heat intolerance, cold intolerance. HEMATOLOGIC/LYMPHATIC: patient denies easy bruising. HOME MEDICATIONS: Please see below. PHYSICAL EXAMINATION: VITAL SIGNS: please see below General: NAD, comfortable HEENT: PERRLA, EOMI, sclerae clear Neck: supple, normal ROM, no JVD Respiratory: R lung base reduced air entry, no wheeze, the diminished respiratory effort, bilaterally CVS: RRR, normal S1, S2, no murmurs Abdo: soft, no masses, no hepatosplenomegaly, BS+, no rebound tenderness Extremities: no edema, pulses weak, arterial disease noted MSK: no joint deformities, normal ROM Neuro: Noted for plus strength in the right upper and right lower extremity. Sequelae of prior CVA. Patient uses cane, is at bedside. Psych: calm, cooperative, AAO x 3 LABORATORY DATA: See below. IMAGING: CT chest (02/17/20): 1. New and extensive lobar pneumonia involving the right middle lobe in several segments of the right lower lobe of without definite effusion in the deep sulcus but with fluid along the major fissure the right side. Few other scattered areas of ground-glass opacity and fibrotic changes superior segment of left lower lobe. Diffuse lytic or bronchiectasis. 2. Sternotomy wires with aortic valve replacement, coronary artery calcifications, mitral valve annular calcifications and aortic atherosclerotic calcifications. 3. Cardiomegaly with left atrial and ventricular enlargement and right heart enlargement no other new or acute finding. MICROBIOLOGY: Please see below. ASSESSMENT: 75 yo M with a hx of CVA x 2, CAD, CHF, DM2, HTN, admitted for management of community acquired aspiration pneumonia. . PLAN: 1. Community acquired aspiration pneumonia: seen on CT and CXR. Ceftriaxone. Flagyl. Add vanc. MRSA screen + Duonebs prn. O2 via NC, maintain SpO2 > 92%. Incentive spirometry. Chest PT. Monitor WBC and fevers. Speech Therapy eval for likely aspiration. 2. Acute on chronic CHF exacerbation: BNP 1400. Low likelihood of exacerbation however, appears euvolemic on exam, elevation in BNP likely due to CKD. Hold home torsemide. IV lasix 40 mg once. Recent echo showing normal LVEF, suspect diastolic dysfunction. Maintain PO fluid restriction, 1500 cc/day. 3. CAD: continue home meds. ASA. Statin. Metoprolol 50 BID. 4. Chronic atrial fibrillation: AC with coumadin (4 mg SunTuWed/FriSat, 2 mg MonThur). Metoprolol 50 mg BID. 5. DM2 with neuropathy: ISS. FSBS AC and HS. Hypoglycemic precautions. Gabapenti n. Hold glipizide. 6. Hypertensive urgency: captopril PO. Resume home meds. Monitor and titrate. 7. CVA: last one in 05/2018. ASA/statin. PT eval. 8. CKD III: Cr 2.75, seems near baseline. Avoid nephrotoxins. 9. Depression: c/w citalopram 10 mg qhs. 10. PAD: follows with Dr. Orellana. Had an arterial doppler 04/2019 c/w significant PAD. ASA/Statin. DVT ppx: coumadin Vital Signs Vital Signs Date Time Temp Pulse Resp B/P (MAP) Pulse Ox O2 Delivery O2 Flow Rate FiO2 02/17/20 15:15 73 165/81 (109) 98 02/17/20 13:30 22 02/17/20 13:01 Nasal Cannula 3.0 02/17/20 11:59 98.0 Laboratory Data Labs 24H Laboratory Tests 2 02/17/20 12:24: Blood Gas Bicarbonate Standard 21.0, Venous Blood pH 7.270L, Venous Blood Partial Pressure CO2 55.3H, Venous Blood Partial Pressure O2 24.9L, Venous Blood Total Carbon Dioxide 26.5, Venous Blood HCO3 24.8, Venous Blood Oxygen Saturation 37.2L, Venous Blood Base Excess -2.7L, Anion Gap 8, Glomerular Filtration Rate 24.1L, Lactic Acid Level 1.1, Calcium Level 8.7L, Total Bilirubin 0.4, Direct Bilirubin 0.1, Aspartate Amino Transf (AST/SGOT) 20, Alanine Aminotransferase (ALT/SGPT) 24, Alkaline Phosphatase 72, XG-Hbd-H-Type Natriuretic Peptide 1451H, Total Protein 7.4, Albumin 3.4, Albumin/Globulin Ratio 0.9, Coronavirus (COVID-19)(PCR) NEGATIVE 02/17/20 12:25: Immature Granulocyte % (Auto) 0.8, Neutrophils (%) (Auto) 77.6H, Lymphocytes (%) (Auto) 11.8L, Monocytes (%) (Auto) 7.5H, Eosinophils (%) (Auto) 2.0, Basophils (%) (Auto) 0.3, Neutrophils # (Auto) 6.7, Lymphocytes # (Auto) 1.0L, Monocytes # (Auto) 0.7, Eosinophils # (Auto) 0.2, Basophils # (Auto) 0.0, Nucleated Red Blood Cells % (auto) 0.0, POC Glucose (Misc Panel) 189H, POC Sodium (Misc Panel) 139, POC Potassium (Misc Panel) 4.5, POC Chloride (Misc Panel) 107, POC Total CO2 (Misc Panel) 23.0, POC Blood Urea Nitrogen (Misc Panel 68H, POC Ionized Calcium (Misc Panel) 4.8, POC Creatinine (Misc Panel) 2.9H, POC Hematocrit (Misc Panel) 34.0L 02/17/20 12:30: POC Troponin I (Misc) 0.01 CBC/BMP Laboratory Tests 02/17/20 12:24 02/17/20 12:25 Microbiology Microbiology 02/17/20 Blood Culture, Received Pending 02/17/20 Blood Culture, Received Pending Home Medications Scheduled Cholecalciferol (Vitamin D3) (Vitamin D3) 50 Mcg Capsule, 2,000 UNITS PO DAILY TAKES AT NOON Citalopram Hydrobromide (Citalopram HBr) 20 Mg Tab, 10 MG PO QHS Clindamycin Hcl (Clindamycin HCl) 150 Mg Capsule, 450 MG PO TID Echinacea (Echinacea) 380 Mg Cap, 380 MG PO DAILY Glipizide (Glipizide) 10 Mg Tab, 10 MG PO QAM Glipizide (Glipizide) 10 Mg Tablet, 5 MG PO QPM Metoprolol Tartrate (Metoprolol Tartrate) 50 Mg Tab, 50 MG PO BID Polyethylene Glycol 3350 (Miralax) 119 Gm Powder, 17 GM PO QHS Potassium Gluconate (Potassium) 99 Mg Tablet, 595 MG PO DAILY TAKES AT 1200 Torsemide (Torsemide) 20 Mg Tablet, 20 MG PO DAILY Warfarin Sodium (Warfarin Sodium) 4 Mg Tab, 4 MG PO 5XW SUN/TUES/WED/FRI/SAT WITH DINNER Warfarin Sodium (Warfarin Sodium) 4 Mg Tablet, 2 MG PO 2XW MON/TH WITH DINNER Scheduled PRN Acetaminophen (Tylenol Extra Strength) 500 Mg Tablet, 1,000 MG PO Q6H PRN for PAIN Gabapentin (Gabapentin) 100 Mg Capsule, 100 MG PO QHS PRN for PAIN Allergies Coded Allergies: [place] (Verified Allergy, Severe, ANAPHYLAXIS, 11/09/14) Penicillins (Verified Allergy, Severe, Anaphylaxis, 02/17/20) HAS RECEIVED 2nd & 3RD GEN CEPHALOSPORINS w/o PROBLEM metformin (Verified Allergy, Severe, Tongue swelling, 07/02/18) Gjosgpv-Gsa-Gmd Reductase Inhibitor (Verified Adverse Reaction, Intermediate, Altered Mental Status, 07/02/18) codeine (Verified Adverse Reaction, Mild, "out of it". , 02/17/20) mixed with guifenasin duloxetine (Unverified Adverse Reaction, Mild, Nausea and vomiting, 07/02/18) A-FIB/CHADSVASC A-FIB History Current/History of A-Fib/PAF?: Yes Current PO Anticoag Therapy: Yes LISA RANGEL MD Feb 17, 2020 16:19
[2020-02-17] MEDS ORDERED: DEXTROSE 50% 50 ML SYRINGE IV PRN (16:30)
[2020-02-17] MEDS ORDERED: GLUCOSE 4GM CHEW TABLET PO PRN (16:30)
[2020-02-17] MEDS ORDERED: IPRATROPIUM 0.5MG/ALBUTEROL 2.5MG INH SOL UD 3ML (DUONEB) INH PRN (16:30)
[2020-02-17] MEDS ORDERED: GLUCAGON INJ 1MG VIAL SC PRN (16:30)
[2020-02-17] MEDS: FUROSEMIDE 40MG/4ML VIAL (J1940) IV SCH (16:54)
[2020-02-17] MEDS ORDERED: WARFARIN SOD 4MG TAB PO SCH (17:00)
[2020-02-17] MEDS ORDERED: HumaLOG INSULIN (NovoLOG) PER UNIT SC SCH ×2 (17:30→21:00)
[2020-02-17 17:35] VITALS: BP 156/77
[2020-02-17] MEDS: metroNIDAZOLE 500 MG in IV 1 EA IV SCH (18:37)
[2020-02-17] MEDS: MIRALAX *UNIT DOSE* 17GM PACKET PO SCH (20:43)
[2020-02-17] MEDS: METOPROLOL TART 50 MG TAB PO SCH (20:45)
[2020-02-17] MEDS: CitaloPRAM (CeleXA) 10 MG TABLET PO SCH (20:45)
[2020-02-17 22:00] VITALS: BP 149/75
[2020-02-18] MEDS ORDERED: VANCOMYCIN HCL 750 MG, VIAL MATE ADAPTER 1 EACH in D5W 250 ML IV ONE ×4 (01:00)
[2020-02-18] MEDS: metroNIDAZOLE 500 MG in IV 1 EA IV SCH ×3 (02:43→17:06)
[2020-02-18 06:00] VITALS: BP 129/67
[2020-02-18 07:51] LABS: BASO # 0.1 10^3/uL (0.0-0.2); BASO % 0.4 % (0.0-1.0); EOS # 0.4 10^3/uL (0.0-0.5); EOS % 3.1 % (0.0-3.0); HEMATOCRIT 30.3 % (42.0-52.0); LYMPH # 1.1 10^3/uL (1.5-5.0); LYMPH % 7.7 % (24.0-44.0); MEAN CORPUSCULAR HEMOGLOBIN 33.1 pg (27.0-33.0); MEAN CORPUSCULAR VOLUME 100.3 fl (80.0-96.0); MONO % 6.9 % (0.0-5.0); NEUTROPHILS # 11.5 10^3/uL (1.5-8.5); NEUTROPHILS % 81.4 % (36.0-66.0); PLATELET COUNT, AUTOMATED 105 10^3/uL (150-450); RED BLOOD COUNT 3.02 10^6/uL (4.30-6.10); WHITE BLOOD COUNT 14.1 10^3/uL (4.0-10.0)
[2020-02-18 08:05] LABS: INR 2.42; PROTHROMBIN TIME 26.9 SECONDS (12.5-14.3)
--- NOTE | 2020-02-18 08:08 | REP ---
INDICATION: Aspiration pna. COMPARISON: 11/06/2019, CT 02/17/2020 TECHNIQUE: AP portable FINDINGS: Sternotomy wires again noted the with the cardiac valve replacement and enlargement of left atrium. Pulmonary venous hypertension without pulmonary edema. Extensive consolidation in the right base involving the of the middle and lower lobes. Left lung shows some basilar fibroatelectatic change and small effusion suspected on the right. Appearance shows no significant change from airspace disease on CT yesterday. IMPRESSION: 1. Extensive consolidation in the right base involving the right middle and lower lobes as seen on CT yesterday. Some right effusion suspected. 2. Sternotomy wires with aortic valve replacement and left atrial enlargement. Some pulmonary venous hypertension. No interstitial edema. <Electronically signed by Corey Guerin > 02/18/20 0821
[2020-02-18 08:42] LABS: ALBUMIN 2.9 GM/DL (3.2-5.2); BILIRUBIN,TOTAL 0.6 MG/DL (0.2-1.0); CALCIUM LEVEL 8.2 MG/DL (8.8-10.2); CREATININE FOR GFR 2.94 MG/DL (0.70-1.30); GLOMERULAR FILTRATION RATE 22.3 (>42); MAGNESIUM LEVEL 2.2 MG/DL (1.8-2.4); POTASSIUM SERUM 4.1 MEQ/L (3.5-5.1); TOTAL PROTEIN 6.7 GM/DL (6.4-8.2)
[2020-02-18] MEDS: glipiZIDE (GLUCOTROL) 5 MG TAB PO SCH (10:38)
[2020-02-18] MEDS: FUROSEMIDE 40MG/4ML VIAL (J1940) IV SCH (10:39)
[2020-02-18] MEDS: METOPROLOL TART 50 MG TAB PO SCH ×2 (10:40→20:11)
[2020-02-18] MEDS: VANCOMYCIN HCL 1,000 MG, VIAL MATE ADAPTER 1 EACH in D5W 250 ML IV SCH (10:47)
--- NOTE | 2020-02-18 11:57 | IPNPDOC ---
Date Seen The patient was seen on 02/18/20. Progress Note SUBJECTIVE: Patient seen and examined at bedside this morning. Reports improvement in dyspnea. Cough is improved, denies chest pain. Denies fevers or chills. on 3L O2 via NC. OBJECTIVE PHYSICAL EXAMINATION: VITAL SIGNS: please see below General: NAD, comfortable HEENT: PERRLA, EOMI, sclerae clear Neck: supple, normal ROM, no JVD Respiratory: lungs CTAB, no wheeze, the diminished respiratory effort, bilaterally CVS: RRR, normal S1, S2, no murmurs Abdo: soft, no masses, no hepatosplenomegaly, BS+, no rebound tenderness Extremities: no edema, pulses 2+ MSK: no joint deformities, normal ROM Neuro: Noted for plus strength in the right upper and right lower extremity. Sequelae of prior CVA. Patient uses cane, is at bedside. Psych: calm, cooperative, AAO x 3 LABORATORY DATA, IMAGING STUDIES, MICROBIOLOGY: Please see below. Echocardiogram: Last available echo 04/27/19: 1. Normal left ventricle internal dimensions and wall thickness. Akinesis of inferobasal segment of left ventricle with normal wall motion and wall thickening elsewhere. Preserved overall LV systolic function. LVEF 60% by visual estimate. LV diastolic function determination was indeterminate due to absence of clearly identifiable A waves. However, at least some degree of LV diastolic function was present because the mitral annular tissue Doppler velocities were reduced. 2. Status post aortic valve bioprosthesis in situ which was structurally and functionally normal. No aortic regurgitation. 3. Severe mitral annular calcification. No mitral stenosis. Moderate mitral regurgitation. 4. Moderate left atrial dilatation. 5. Suggestive of moderate elevation of estimated right ventricle systolic pressure. 6. No pericardial effusion. DVT prophylaxis ordered?: Y, on coumadin ASSESSMENT: 75 yo M with a hx of CVA x 2, CAD, CHF, DM2, HTN, admitted for management of community acquired aspiration pneumonia with acute on chronic CHF exacerbation. . PLAN: 1. Community acquired aspiration pneumonia: seen on CT and CXR. WBC elevated at 14.0. Ceftriaxone. Flagyl. Add vanc. MRSA screen +. Duonebs prn. O2 via NC, maintain SpO2 > 92%. 3L 97%. Incentive spirometry. Chest PT. Speech Therapy eval for likely aspiration. 2. Acute on chronic diastolic CHF exacerbation: BNP 1400. Hold IV diuresis for now, transition to PO torsemide. BUN 68. Echo 04/27/19 normal LVEF. AVR. Severe mitral annular calcification. Maintain PO fluid restriction, 1500 cc/day. Daily weights. Keep eye on fluid balance, consider slow IVF if over diuresed. 3. CAD: continue home meds. ASA. Statin. Metoprolol 50 BID. 4. Chronic atrial fibrillation: AC with coumadin (4 mg SunTuWed/FriSat, 2 mg MonThur). Metoprolol 50 mg BID. 5. DM2 with neuropathy: ISS. FSBS AC and HS. Hypoglycemic precautions. Gabapentin. Patient is refusing ISS, will resume glipizide. 6. Hypertensive urgency: captopril PO. Resume home meds. Monitor and titrate. 7. CVA: last one in 05/2018. ASA/statin. PT eval. 8. CKD III: Cr 2.75, seems near baseline. Avoid nephrotoxins. 9. Depression: c/w citalopram 10 mg qhs. 10. Macrocytic anemia: Check B12, folate. DVT ppx: coumadin VS, I&O, 24H, [facility] Vital Signs/I&O Vital Signs Date Time Temp Pulse Resp B/P (MAP) Pulse Ox O2 Delivery O2 Flow Rate FiO2 02/18/20 10:40 72 125/64 02/18/20 09:40 3.0 02/18/20 06:00 99.0 18 97 Nasal Cannula I&O- Last 24 Hours up to 6 AM 02/18/20 06:00 Intake Total 900 ml Output Total 850 ml Balance 50 ml Laboratory Data 24H LABS Laboratory Tests 2 02/17/20 12:24: Blood Gas Bicarbonate Standard 21.0, Venous Blood pH 7.270L, Venous Blood Partial Pressure CO2 55.3H, Venous Blood Partial Pressure O2 24.9L, Venous Blood Total Carbon Dioxide 26.5, Venous Blood HCO3 24.8, Venous Blood Oxygen Saturation 37.2L, Venous Blood Base Excess -2.7L, Anion Gap 8, Glomerular Filtration Rate 24.1L, Lactic Acid Level 1.1, Calcium Level 8.7L, Total Bilirubin 0.4, Direct Bilirubin 0.1, Aspartate Amino Transf (AST/SGOT) 20, Alanine Aminotransferase (ALT/SGPT) 24, Alkaline Phosphatase 72, XX-Yrm-H-Type Natriuretic Peptide 1451H, Total Protein 7.4, Albumin 3.4, Albumin/Globulin Ratio 0.9, Procalcitonin 0.73, Coronavirus (COVID-19)(PCR) NEGATIVE 02/17/20 12:25: Immature Granulocyte % (Auto) 0.8, Neutrophils (%) (Auto) 77.6H, Lymphocytes (%) (Auto) 11.8L, Monocytes (%) (Auto) 7.5H, Eosinophils (%) (Auto) 2.0, Basophils (%) (Auto) 0.3, Neutrophils # (Auto) 6.7, Lymphocytes # (Auto) 1.0L, Monocytes # (Auto) 0.7, Eosinophils # (Auto) 0.2, Basophils # (Auto) 0.0, Nucleated Red Blood Cells % (auto) 0.0, POC Glucose (Misc Panel) 189H, POC Sodium (Misc Panel) 139, POC Potassium (Misc Panel) 4.5, POC Chloride (Misc Panel) 107, POC Total CO2 (Misc Panel) 23.0, POC Blood Urea Nitrogen (Misc Panel 68H, POC Ionized Calcium (Misc Panel) 4.8, POC Creatinine (Misc Panel) 2.9H, POC Hematocrit (Misc Panel) 34.0L 02/17/20 12:30: POC Troponin I (Misc) 0.01 02/17/20 16:58: Bedside Glucose (Misc Panel) 215H 02/17/20 19:17: Methicillin-Resist S.aureus DNA PCR DETECTEDA 02/17/20 22:17: 02/17/20 22:25: Bedside Glucose (Misc Panel) 209H 02/18/20 07:41: Immature Granulocyte % (Auto) 0.5, Neutrophils (%) (Auto) 81.4H, Lymphocytes (%) (Auto) 7.7L, Monocytes (%) (Auto) 6.9H, Eosinophils (%) (Auto) 3.1H, Basophils (%) (Auto) 0.4, Neutrophils # (Auto) 11.5H, Lymphocytes # (Auto) 1.1L, Monocytes # (Auto) 1.0H, Eosinophils # (Auto) 0.4, Basophils # (Auto) 0.1, Nucleated Red Blood Cells % (auto) 0.0, Prothrombin Time 26.9H, Prothromb Time International Ratio 2.42, Anion Gap 7L, Glomerular Filtration Rate 22.3L, Calcium Level 8.2L, Magnesium Level 2.2, Total Bilirubin 0.6, Aspartate Amino Transf (AST/SGOT) 20, Alanine Aminotransferase (ALT/SGPT) 22, Alkaline Phosphatase 66, Total Protein 6.7, Albumin 2.9L, Albumin/Globulin Ratio 0.8 02/18/20 09:50: Lab Scanned Report Miscellaneous Lab 02/18/20 09:51: Troponin I < 0.02 02/18/20 11:23: Bedside Glucose (Misc Panel) 275H CBC/BMP Laboratory Tests 02/17/20 12:24 02/17/20 12:25 02/18/20 07:41 Microbiology Microbiology 02/17/20 Blood Culture, Received Pending 02/17/20 Blood Culture, Received Pending LISA RANGEL MD Feb 18, 2020 11:57
[2020-02-18] MEDS ORDERED: OXYMETAZOLINE 0.05% NASAL SPRAY (AFRIN) PRN (12:15)
[2020-02-18 13:12] LABS: FOLATE 6.5 NG/ML
[2020-02-18 14:00] VITALS: BP 126/58
[2020-02-18] MEDS ORDERED: cefTRIAXone SOD 2 GM in D5W MINI-BAG PLUS 50 ML IV SCH (15:00)
[2020-02-18] MEDS ORDERED: WARFARIN SOD 2MG TAB PO SCH (17:00)
--- NOTE | 2020-02-18 18:53 | ECGEPIP ---
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
[2020-02-18] MEDS: MIRALAX *UNIT DOSE* 17GM PACKET PO SCH (20:09)
[2020-02-18] MEDS: CitaloPRAM (CeleXA) 10 MG TABLET PO SCH (20:11)
[2020-02-18] MEDS ORDERED: glipiZIDE (GLUCOTROL) 5 MG TAB PO SCH (21:00)
[2020-02-18 22:00] VITALS: BP 153/76
[2020-02-19] MEDS: metroNIDAZOLE 500 MG in IV 1 EA IV SCH ×2 (01:25→11:08)
[2020-02-19 06:00] VITALS: BP 149/76
[2020-02-19 07:07] LABS: BASO % 0.3 % (0.0-1.0); EOS # 0.6 10^3/uL (0.0-0.5); EOS % 5.3 % (0.0-3.0); HEMATOCRIT 29.1 % (42.0-52.0); HEMOGLOBIN 9.3 g/dl (13.5-17.5); LYMPH # 1.4 10^3/uL (1.5-5.0); LYMPH % 11.7 % (24.0-44.0); MEAN CORPUSCULAR HEMOGLOBIN 32.5 pg (27.0-33.0); MEAN CORPUSCULAR VOLUME 101.7 fl (80.0-96.0); MONO # 1.1 10^3/uL (0.0-0.8); MONO % 9.6 % (0.0-5.0); NEUTROPHILS # 8.5 10^3/uL (1.5-8.5); NEUTROPHILS % 72.6 % (36.0-66.0); PLATELET COUNT, AUTOMATED 101 10^3/uL (150-450); RED BLOOD COUNT 2.86 10^6/uL (4.30-6.10); WHITE BLOOD COUNT 11.7 10^3/uL (4.0-10.0)
[2020-02-19 08:23] LABS: ALBUMIN 2.8 GM/DL (3.2-5.2); BILIRUBIN,TOTAL 0.3 MG/DL (0.2-1.0); CALCIUM LEVEL 7.9 MG/DL (8.8-10.2); CREATININE FOR GFR 2.92 MG/DL (0.70-1.30); GLOMERULAR FILTRATION RATE 22.5 (>42); MAGNESIUM LEVEL 2.4 MG/DL (1.8-2.4); POTASSIUM SERUM 3.8 MEQ/L (3.5-5.1); TOTAL PROTEIN 6.6 GM/DL (6.4-8.2); VANCOMYCIN LEVEL PEAK 19.6 UG/ML (18.0-40.0)
[2020-02-19 09:00] VITALS: BP 109/67
[2020-02-19] MEDS ORDERED: TORSEMIDE 20 MG TAB PO SCH (09:00)
[2020-02-19] MEDS: METOPROLOL TART 50 MG TAB PO SCH (09:00)
[2020-02-19] MEDS: glipiZIDE (GLUCOTROL) 5 MG TAB PO SCH (09:12)
[2020-02-19] MEDS: VANCOMYCIN HCL 1,000 MG, VIAL MATE ADAPTER 1 EACH in D5W 250 ML IV SCH (09:13)
[2020-02-19] MEDS ORDERED: CLIN150C14 PO (11:13)
--- NOTE | 2020-02-19 11:54 | REP ---
INDICATION: Aspiration pna. COMPARISON: 02/18/2020, 02/17/2020 CT TECHNIQUE: AP semi-erect chest FINDINGS: The lungs are adequately inflated the sternotomy wires are again seen there is underlying fibrosis and COPD. Some pulmonary venous hypertension again noted. Interstitial edema may be suspected. Few Emerson B-lines are noted. The infiltrate in the right base shows improvement from yesterday's study in that the diaphragm is now partially visible where it was not on yesterday's study. The overall density of the consolidation is reduced. The cardiomediastinal silhouette and airway are unchanged. The aorta is mildly tortuous and calcified. IMPRESSION: 1. Some improvement in the density of the right base pneumonia with the diaphragm now able to be visualized through it. 2. Some underlying fibrosis, COPD, cardiomegaly, pulmonary venous hypertension and some interstitial edema unchanged. 3. I spoke to the attending physician by phone just before this dictation. <Electronically signed by Corey Guerin > 02/19/20 [id number]
--- NOTE | 2020-02-19 11:59 | DS.PDOC ---
Discharge Summary General Date of Admission Feb 17, 2020 at 16:19 Date of Discharge 02/19/20 Attending Physician: LISA RANGEL MD Discharge Summary PROCEDURES PERFORMED DURING STAY: [None]. ADMITTING DIAGNOSES: Aspiration Pneumonia R lower and middle lobes Acute on chronic diastolic CHF exacerbation Chronic atrial fibrillation DM2 with neuropathy Hypertensive urgency Hx of CVA Dysphagia CKD III Depression DISCHARGE DIAGNOSES: Aspiration Pneumonia R lower and middle lobes Acute on chronic diastolic CHF exacerbation Chronic atrial fibrillation DM2 with neuropathy Hypertensive urgency Hx of CVA Dysphagia CKD III Depression COMPLICATIONS/CHIEF COMPLAINT: Ckd Stage Iii Pneumonia. HISTORY OF PRESENT ILLNESS: Mr. Bernard is a pleasant, 75 yo M with a hx of CAD, CHF, afib on coumadin, CKD, DM2, Aortic valve replacement, CVA x 2 (last 05/2018, R sided deficits), presented to [facility] ED after he developed worsening dyspnea at home this morning. He reports feeling chest discomfort and profound cough, without sputum. He denies subjective fevers, chills, palpitations, as well as n/v/d. He reports that since his CVA, he has numerous bouts of pneumonia, and states ~6 admissions for same. He does not eat a mechanically modified diet. Vitals and labs reviewed. BP 190/85, T 98/2, HR 71. RR 22. SpO2 91% on 3L NC. WBC 8.6. Hgb 11.4. MCV 101.5. NA 140. K 4.3. Cr 2.75. LA 1.1. BNP 1451. COVID-[address] chest and CXR reviewed, findings c/w R middle and lower lobe pneumonia as well as possible fluid overload although I suspect elevated BNP likely related to CKD as he does not look fluid overloaded. Patient admitted for treatment of likely aspiration pneumonia. HOSPITAL COURSE: 1. Community acquired aspiration pneumonia: seen on CT and CXR. WBC elevated at 14.0. Ceftriaxone. Flagyl. Add vanc. MRSA screen +. Duonebs prn. O2 via NC, maintain SpO2 > 92%. 3L 97%. Incentive spirometry. Chest PT. CXR from 02/19/20 reviewed with radiology, interval improvement in consolidation. Speech Therapy recommending level II mech diet, nectar thick liquids. Discharge on PO regimen with clindamycin 450 mg PO TID for 7 days. Although augmentin would be appropriate, patient has severe PCN allergy. Prolonged QTc precludes use of fluoroquinolones. Will require repeat chest imaging 1-2 weeks after DC. 2. Acute on chronic diastolic CHF exacerbation (possible): BNP 1400. Given one dose lasix IV. Resumed torsemide 20 mg PO daily on DC. Echo 04/27/19 normal LVEF. AVR. Severe mitral annular calcification. Maintain PO fluid restriction, 1500 cc/day. Resumed torsemide 20 mg PO daily on discharge, will no increase dosage at this time given borderline BP. Will f/u with PCP. 3. CAD: continue home meds. ASA. Statin. Metoprolol 50 BID. 4. Chronic atrial fibrillation: AC with coumadin (4 mg SunTuWed/FriSat, 2 mg MonThur). Metoprolol 50 mg BID. 5. DM2 with neuropathy: ISS. FSBS AC and HS. Hypoglycemic precautions. Gabapentin. Patient is refusing ISS, will resume glipizide. 6. Hypertensive urgency: captopril PO. Resume home meds. Monitor and titrate. 7. CVA: last one in 05/2018. ASA/statin. PT eval. 8. CKD III: Cr 2.75, seems near baseline. Avoid nephrotoxins. 9. Depression: c/w citalopram 10 mg qhs. 10. Macrocytic anemia: b12, folate wnl DISCHARGE MEDICATIONS: Please see below. ALLERGIES: Please see below. PHYSICAL EXAMINATION ON DISCHARGE: VITAL SIGNS: please see below General: NAD, comfortable HEENT: PERRLA, EOMI, sclerae clear Neck: supple, normal ROM, no JVD Respiratory: R lung bases reduced air entry, L lungs clear. No wheeze. 96% on R A. 94% on RA on exertion. CVS: RRR, normal S1, S2, no murmurs Abdo: soft, no masses, no hepatosplenomegaly, BS+, no rebound tenderness Extremities: cold lower extremities pulses weak MSK: no joint deformities, normal ROM Neuro: Noted for plus strength in the right upper and right lower extremity. Se quelae of prior CVA. Patient uses cane, is at bedside. Psych: calm, cooperative, AAO x 3 LABORATORY DATA: Please see below. IMAGING: CT chest (02/17/20): 1. New and extensive lobar pneumonia involving the right middle lobe in several segments of the right lower lobe of without definite effusion in the deep sulcus but with fluid along the major fissure the right side. Few other scattered areas of ground-glass opacity and fibrotic changes superior segment of left lower lobe. Diffuse lytic or bronchiectasis. 2. Sternotomy wires with aortic valve replacement, coronary artery calcifications, mitral valve annular calcifications and aortic atherosclerotic calcifications. 3. Cardiomegaly with left atrial and ventricular enlargement and right heart enlargement no other new or acute finding. PROGNOSIS: good ACTIVITY: As tolerated DIET: [facility] altered level II, nectar thick liquids. DISCHARGE PLAN: DC home with PCP follow up in 3-5 days. Complete course of clindamycin 450 mg TID for 7 days. Have to avoid augmentin given severe PCN allergy, and avoid fluoroquinolones given QTc prolongation. DISPOSITION: . DISCHARGE INSTRUCTIONS: 1. Please follow-up with your primary care doctor within 3-5 days. Will require repeat chest imaging within 1-2 weeks after discharge. 2. Please taking medications as prescribed. 3. He was referred for outpatient physical therapy. He had been referred for outpatient speech therapy. His diet has been modified to level II. Mechanical diet, and he requires nectar thick liquids 4. If you develop bleeding, chest pain, shortness of breath, seizures, nausea, fevers, or otherwise worsening of your symptoms, please call 911 or return to the nearest emergency room ITEMS TO FOLLOWUP ON ON OUTPATIENT: Repeat chest imaging in 2-3 weeks Outpatient speech therapy Vascular surgery follow-up outpatient DISCHARGE CONDITION: Stable TIME SPENT ON DISCHARGE: 35 minutes Vital Signs/I&Os Vital Signs Date Time Temp Pulse Resp B/P (MAP) Pulse Ox O2 Delivery O2 Flow Rate FiO2 02/19/20 09:00 67 109/67 02/19/20 06:00 97.7 20 99 Nasal Cannula 3.0 I&O- Last 24 Hours up to 6 AM 02/19/20 06:00 Intake Total 1660 ml Output Total 0 ml Balance 1660 ml Laboratory Data Labs 24H Laboratory Tests 2 02/18/20 17:15: Bedside Glucose (Misc Panel) 203H 02/18/20 20:09: Bedside Glucose (Misc Panel) 149H 02/19/20 06:47: Immature Granulocyte % (Auto) 0.5, Neutrophils (%) (Auto) 72.6H, Lymphocytes (%) (Auto) 11.7L, Monocytes (%) (Auto) 9.6H, Eosinophils (%) (Auto) 5.3H, Basophils (%) (Auto) 0.3, Neutrophils # (Auto) 8.5, Lymphocytes # (Auto) 1.4L, Monocytes # (Auto) 1.1H, Eosinophils # (Auto) 0.6H, Basophils # (Auto) 0.0, Nucleated Red Blood Cells % (auto) 0.0, Anion Gap 10, Glomerular Filtration Rate 22.5L, Calcium Level 7.9L, Magnesium Level 2.4, Total Bilirubin 0.3, Aspartate Amino Transf (AST/SGOT) 16, Alanine Aminotransferase (ALT/SGPT) 20, Alkaline Phosphatase 66, Total Protein 6.6, Albumin 2.8L, Albumin/Globulin Ratio 0.7, Vancomycin Level Peak 19.6 02/19/20 11:17: Bedside Glucose (Misc Panel) 173H CBC/BMP Laboratory Tests 02/19/20 06:47 FSBS Laboratory Tests Test 02/18/20 17:15 02/18/20 20:09 02/19/20 11:17 Range/Units Bedside Glucose (Misc Panel) 203 149 173 83-110 MG/DL Microbiology Microbiology 02/17/20 Blood Culture - Preliminary, Resulted No growth after 24 hours . All specim... 02/17/20 Blood Culture - Preliminary, Resulted No growth after 24 hours . All specim... Discharge Medications Scheduled Cholecalciferol (Vitamin D3) (Vitamin D3) 50 Mcg Capsule, 2,000 UNITS PO DAILY, (Reported) TAKES AT NOON Citalopram Hydrobromide (Citalopram HBr) 20 Mg Tab, 10 MG PO QHS, (Reported) Clindamycin Hcl (Clindamycin HCl) 150 Mg Capsule, 450 MG PO TID Echinacea (Echinacea) 380 Mg Cap, 380 MG PO DAILY, (Reported) Glipizide (Glipizide) 10 Mg Tab, 10 MG PO QAM, (Reported) Glipizide (Glipizide) 10 Mg Tablet, 5 MG PO QPM, (Reported) Metoprolol Tartrate (Metoprolol Tartrate) 50 Mg Tab, 50 MG PO BID, (Reported) Polyethylene Glycol 3350 (Miralax) 119 Gm Powder, 17 GM PO QHS, (Reported) Potassium Gluconate (Potassium) 99 Mg Tablet, 595 MG PO DAILY, (Reported) TAKES AT 1200 Torsemide (Torsemide) 20 Mg Tablet, 20 MG PO DAILY, (Reported) Warfarin Sodium (Warfarin Sodium) 4 Mg Tab, 4 MG PO 5XW, (Reported) SUN//SAT/SAT/SAT WITH DINNER Warfarin Sodium (Warfarin Sodium) 4 Mg Tablet, 2 MG PO 2XW, (Reported) SAT/ WITH DINNER Scheduled PRN Acetaminophen (Tylenol Extra Strength) 500 Mg Tablet, 1,000 MG PO Q6H PRN for PAIN, (Reported) Gabapentin (Gabapentin) 100 Mg Capsule, 100 MG PO QHS PRN for PAIN, (Reported) Allergies Coded Allergies: [place] (Verified Allergy, Severe, ANAPHYLAXIS, 11/09/14) Penicillins (Verified Allergy, Severe, Anaphylaxis, 02/17/20) HAS RECEIVED 2nd & 3RD GEN CEPHALOSPORINS w/o PROBLEM metformin (Verified Allergy, Severe, Tongue swelling, 07/02/18) Hybegyy-Hpv-Byf Reductase Inhibitor (Verified Adverse Reaction, Intermediate, Altered Mental Status, 07/02/18) codeine (Verified Adverse Reaction, Mild, "out of it". , 02/17/20) mixed with guifenasin duloxetine (Unverified Adverse Reaction, Mild, Nausea and vomiting, 07/02/18) LISA RANGEL MD Feb 19, 2020 11:59
== END 2020-02-19 13:59 | disposition home or self-care (01) | DRG 177 ==
LOC: EDBD 11:48 → M ED 11:48 → M ED INP 16:19 → ENRESERV 16:43 → M MSPAV 17:22
PROVIDERS: ADMIT Family Medicine; ATTEND Family Medicine
DX: J69.0 Pneumonitis due to inhalation of food and vomit (principal); I50.33 Acute on chronic diastolic (congestive) heart failure; I13.0 Hypertensive heart and chronic kidney disease with heart failure and stage 1 through stage 4 chronic kidney disease, or unspecified chronic kidney disease; I69.351 Hemiplegia and hemiparesis following cerebral infarction affecting right dominant side; I48.20 Chronic atrial fibrillation, unspecified; N18.30 Chronic kidney disease, stage 3 unspecified; E11.51 Type 2 diabetes mellitus with diabetic peripheral angiopathy without gangrene; I16.0 Hypertensive urgency; F32.9 Major depressive disorder, single episode, unspecified; I25.10 Atherosclerotic heart disease of native coronary artery without angina pectoris; Z79.01 Long term (current) use of 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s; Z95.2 Presence of prosthetic heart valve; D64.9 Anemia, unspecified; Z79.899 Other long term (current) drug therapy; Z88.0 Allergy status to penicillin; Z88.8 Allergy status to other drugs, medicaments and biological substances; Z88.5 Allergy status to narcotic agent; Z91.018 Allergy to other foods; I25.2 Old myocardial infarction

== ENCOUNTER 2020-02-29 10:08 | Inpatient (IN) | payer MEDICARE, MEDICAID ==
[~2020-02-29] VITALS: Ht 177.8 cm; Wt 85.5 kg
[~2020-02-29 10:08] MED LIST changes: +CLIN150C14 PO; +VITA200020 PO
[2020-02-29] MEDS ORDERED: NS 1,000 ML IV ONE (10:30)
[2020-02-29 10:49] LABS: BASO # 0.1 10^3/uL (0.0-0.2); BASO % 0.9 % (0.0-1.0); EOS # 0.4 10^3/uL (0.0-0.5); EOS % 3.9 % (0.0-3.0); HEMATOCRIT 33.6 % (42.0-52.0); HEMOGLOBIN 11.1 g/dl (13.5-17.5); LYMPH # 1.8 10^3/uL (1.5-5.0); LYMPH % 19.9 % (24.0-44.0); MEAN CORPUSCULAR HEMOGLOBIN 32.8 pg (27.0-33.0); MEAN CORPUSCULAR VOLUME 99.4 fl (80.0-96.0); MONO # 0.7 10^3/uL (0.0-0.8); MONO % 7.6 % (0.0-5.0); NEUTROPHILS # 6.1 10^3/uL (1.5-8.5); NEUTROPHILS % 66.7 % (36.0-66.0); PLATELET COUNT, AUTOMATED 179 10^3/uL (150-450); RED BLOOD COUNT 3.38 10^6/uL (4.30-6.10); WHITE BLOOD COUNT 9.1 10^3/uL (4.0-10.0)
[2020-02-29 11:13] LABS: INR 1.65; PROTHROMBIN TIME 19.9 SECONDS (12.5-14.3)
[2020-02-29 11:14] LABS: PARTIAL THROMBOPLASTIN TIME 35.5 SECONDS (24.2-38.5)
--- NOTE | 2020-02-29 11:21 | REP ---
INDICATION: diarrhea. COMPARISON: 07/16/2019 and 02/19/2020. TECHNIQUE: SINGLE PORTABLE AP VIEW OF THE CHEST WAS PERFORMED. FINDINGS: The right base infiltrate continues to improved with minimal residual infiltrate still present. There are underlying chronic interstitial fibrotic changes. There is mild cardiomegaly. The mediastinal silhouette is unchanged. Multiple sternal wires and mediastinal clips are present. IMPRESSION: Chronic fibrotic changes. Continued improvement of right basilar infiltrate with minimal residual. <Electronically signed by Loki Garcia > 02/29/20 [id number]
[2020-02-29 11:22] LABS: ALBUMIN 3.4 GM/DL (3.2-5.2); ALT/SGPT 23 U/L (12-78); AMYLASE 68 U/L (25-115); BILIRUBIN,DIRECT < 0.1 MG/DL (0.0-0.2); BILIRUBIN,TOTAL 0.4 MG/DL (0.2-1.0); LIPASE 298 U/L (73-393); MAGNESIUM LEVEL 2.5 MG/DL (1.8-2.4); TOTAL PROTEIN 8.5 GM/DL (6.4-8.2)
[2020-02-29] MEDS: HumaLOG INSULIN (NovoLOG) PER UNIT SC SCH ×3 (12:00→18:00)
[2020-02-29] MEDS ORDERED: cefTRIAXone SOD 1 GM in D5W MINI-BAG PLUS 50 ML IV ONE (12:15)
--- NOTE | 2020-02-29 12:43 | HPEPDOC ---
[facility] Medical History & Physical Date of Admission Feb 29, 2020 Date of Service: Feb 29, 2020 Attending Physician: Jenna Monte MD History and Physical CHIEF COMPLAINT: Diarrhea HISTORY OF PRESENT ILLNESS: Patient is a 75-year-old male with past medical history of coronary artery disease status post CABG, hypertension, PVD/PAD, atrial fibrillation on Coumadin, diabetes mellitus, recent hospitalization (02/16-) for community acquired PNA presented with increased diarrhea over the last 10 days. The patient states after his hospitalization he was discharged home with oral clindamycin for abx treatment and ThickIt for diagnosis of dysphagia. He continued with treatment until 02/23/2020 when he stopped antibiotics due to him believing this was causing his diarrhea. He was also advised by his primary care provider to stop the thickening supplement with his foods as this had a side e ffect also of diarrhea. Despite him stopping these 2 things, he has persistently had 1015 episodes of watery diarrhea daily, nonbloody associated with lower abdominal cramping. He is also complaining of lethargy, increased weakness, increased flatulence, shortness of breath along with a nonproductive cough. He denies nausea, vomiting, fevers, chills, appetite changes, chest pains, recent exposure to sick contacts. Brought to the emergency room today to be further evaluated. Emergency room, vital signs showed his blood pressure was high with systolics ranging 172-196/77-94, other VS stable. C. diff was ordered but patient has not had bowel movement since arrival. He was noticeably weak in bed. He had mild abd pain on exam to the lower quadrants, WBC was wnl, HEENT was elevated at 2.6; how ever, baseline creatinine is 2.32.9. He has baseline anemia which is unchanged, glucose 225. ECG showed atrial fibrillation, QTC 485. Chest x-ray showed right basilar infiltrate, persistent compared to prior on file. He was saturating well on RA. He admittingly did not finish the complete course of abx treatment due to diarrhea. Was admitted for diarrhea rule out infectious source, IV treatment of community acquired PNA. REVIEW OF SYSTEMS: Please see above PAST MEDICAL HISTORY: 1. CHF. 2. Coronary artery disease s/p CABG 3. Peripheral vascular disease. 4. CVA x2 5. Atrial fibrillation on coumadin 6. Diabetes mellitus. 7. [place] 8. PAD 9. Recent PNA diagnosis PAST SURGICAL HISTORY: 1. CABG. 2. Aortic valve replacement. 3. Back surgery. SOCIAL HISTORY: Patient denies smoking Patient denies etoh use Patient denies illicit drug use FAMILY HISTORY: Reviewed with patient, no significant family history ALLERGIES: Please see below. HOME MEDICATIONS: Please see below. PHYSICAL EXAMINATION: VS: Please see below CONSTITUTIONAL: No acute distress, resting comfortably, AAO x 3 EYES: PERRLA, EOM intact HENT, MOUTH: Normocephalic, atraumatic, moist mucous membranes, NECK: SUPPLE, no JVD, no lymphadenopathy, no carotid bruit CV: Regular rate and rhythm, S1S2 normal, no murmurs/rubs/gallops RESPIRATORY: Clear to auscultation bilaterally, no rales/rhonchi/wheezes GI: mild lower left and right quadrant discomfort on exam, BS positive in 4 quadrants, soft, nondistended, no rebound or guarding, no organomegaly : Deferred MUSCULOSKELETAL: Normal ROM. No cyanosis, clubbing, swelling, joint deformity, extremity edema INTEGUMENTARY: Intact, no rashes, no lesions, no erythema NEUROLOGIC: Cranial Nerves II-XII are intact, no focal deficits PSYCHIATRIC: Mood and affect are normal LABORATORY DATA: Please see below IMAGING: CXR: Chronic fibrotic changes. Continued improvement of right basilar infiltrate with minimal residual. ASSESSMENT: 75-year-old male with past medical history of coronary artery disease status post CABG, hypertension, PVD/PAD, atrial fibrillation on Coumadin, diabetes mellitus, recent hospitalization (02/16-) for community acquired PNA admitted for diarrhea rule out infectious source, IV treatment of community acquired PNA. PLAN: #Diarrhea r/o infectious source -Recent hospitalization, abx use. r/o c. diff -Family thought it was 2/2 to PO abx as it started after discharge or ThickIt food thickening supplement. When stopped both, it did not resolve -F/u c. diff result -CLD, thickened for now -At this time with hypertensive urgency, will hold off on IVFs as patient can drink and will encourage Q2H while awake #Community acquired PNA vs. aspiration pneumonia -Did not complete prior course of abx due to diarrhea -Currently saturating well on RA -F/u sputum culture, blood culture, legionella urine -As it is unknown how effective an oral pill would be right now due to diarrhea, keep on IV abx for now, can transition later. -Restarting on IV levofloxacin daily -Aspiration precautions #Hypertensive urgency -BP improving slowly, currently 150's systolic -Resume home medications #Dysphagia, risk for aspiration -Swallowing evaluation on last admission: Recommend level II [facility] diet, nectar thick liquids -Advance to this diet as tolerated #Physical deconditioning, acute on chronic -Recently discharged to continue with home services -PT/OT ordered to reevaluate #Chronic diastolic CHF -Recent admission patient was treated for exacerbation -CXR above shows no pulmonary vasc congestion, no s/s of fluid overload -Holding torsemide 2/2 to diarrhea -Echo 04/27/19 normal LVEF. AVR. Severe mitral annular calcification. -C/w diet above. previously on PO fluid restriction, 1500 cc/day so if s/s of overload occur may wish to resume torsemide and start restrictions. -C/w BB BID with holding parameters #CAD -Stable -C/w ASA. Statin. Metoprolol 50 BID. #Chronic atrial fibrillation -INR subtherapeutic today at 1.65 -C/w AC with coumadin (4 mg SunTuWed/FriSat, 2 mg MonThur), Metoprolol 50 mg BID. -Will give 5 mg Po tonight and resume regular dosing 03/01/20. -Daily PT/INR, tele #DM2 with neuropathy -BS 255 -CLD -Q6H FS, ISS Q6H, Hypoglycemic precautions. #Peripheral neuropathy -C/w gabapentin. # Hx of CVA -C/w ASA/statin. -PT eval. #CKD III -Cr 2.6- baseline 2.3-2.9 -Avoid nephrotoxins. #Depression -Stable -C/w citalopram 10 mg qhs. #Macrocytic anemia - Last b12, folate wnl #DVT px -Warfarin. If remains subtherapeutic on 03/01/20 consider bridge. SCD, teds DISPOSITION: Admitted under inpatient status. PT/OT to reassess to help determine discharge plan when acute medical issues resolve. Vital Signs Vital Signs Date Time Temp Pulse Resp B/P (MAP) Pulse Ox O2 Delivery O2 Flow Rate FiO2 02/29/20 12:16 64 18 199/91 (127) 100 Room Air 02/29/20 10:27 98.1 Laboratory Data Labs 24H Laboratory Tests 2 02/29/20 10:28: Immature Granulocyte % (Auto) 1.0, Neutrophils (%) (Auto) 66.7H, Lymphocytes (%) (Auto) 19.9L, Monocytes (%) (Auto) 7.6H, Eosinophils (%) (Auto) 3.9H, Basophils (%) (Auto) 0.9, Neutrophils # (Auto) 6.1, Lymphocytes # (Auto) 1.8, Monocytes # (Auto) 0.7, Eosinophils # (Auto) 0.4, Basophils # (Auto) 0.1, Nucleated Red Blood Cells % (auto) 0.0, Prothrombin Time 19.9H, Prothromb Time International Ratio 1.65, Activated Partial Thromboplast Time 35.5, Magnesium Level 2.5H, Total Bilirubin 0.4, Direct Bilirubin < 0.1, Aspartate Amino Transf (AST/SGOT) 19, Alanine Aminotransferase (ALT/SGPT) 23, Alkaline Phosphatase 74, Total Protein 8.5H, Albumin 3.4, Albumin/Globulin Ratio 0.7, Amylase Level 68, Lipase 298 02/29/20 10:38: Lactic Acid Level 2.0 02/29/20 11:06: POC Glucose (Misc Panel) 225H, POC Sodium (Misc Panel) 141, POC Potassium (Misc Panel) 4.2, POC Chloride (Misc Panel) 105, POC Total CO2 (Misc Panel) 22.0L, POC Blood Urea Nitrogen (Misc Panel 50H, POC Ionized Calcium (Misc Panel) 4.7, POC Creatinine (Misc Panel) 2.6H, POC Hematocrit (Misc Panel) 35.0L 02/29/20 11:08: POC Troponin I (Misc) 0.00 CBC/BMP Laboratory Tests 02/29/20 10:28 Microbiology Microbiology 02/29/20 Blood Culture, Received Pending 02/29/20 Blood Culture, Received Pending Home Medications Scheduled Cholecalciferol (Vitamin D3) (Vitamin D3) 50 Mcg Capsule, 2,000 UNITS PO DAILY TAKES AT NOON Citalopram Hydrobromide (Citalopram HBr) 20 Mg Tab, 10 MG PO QHS Echinacea (Echinacea) 380 Mg Cap, 380 MG PO DAILY Glipizide (Glipizide) 10 Mg Tab, 10 MG PO QAM Glipizide (Glipizide) 10 Mg Tablet, 5 MG PO QPM Metoprolol Tartrate (Metoprolol Tartrate) 50 Mg Tab, 50 MG PO BID Polyethylene Glycol 3350 (Miralax) 119 Gm Powder, 17 GM PO QHS HOLD FOR DIARRHEA Potassium Gluconate (Potassium) 99 Mg Tablet, 595 MG PO DAILY TAKES AT 1200 Warfarin Sodium (Warfarin Sodium) 4 Mg Tab, 4 MG PO 5XW SUN/TU/SAT/SAT/SAT WITH DINNER Warfarin Sodium (Warfarin Sodium) 4 Mg Tablet, 2 MG PO 2XW MON/ WITH DINNER Scheduled PRN Acetaminophen (Tylenol Extra Strength) 500 Mg Tablet, 1,000 MG PO Q6H PRN for PAIN Gabapentin (Gabapentin) 100 Mg Capsule, 100 MG PO QHS PRN for PAIN Torsemide (Torsemide) 20 Mg Tablet, 20 MG PO DAILY PRN for EDEMA Allergies Coded Allergies: [place] (Verified Allergy, Severe, ANAPHYLAXIS, 11/09/14) Penicillins (Verified Allergy, Severe, Anaphylaxis, 02/17/20) HAS RECEIVED 2nd & 3RD GEN CEPHALOSPORINS w/o PROBLEM metformin (Verified Allergy, Severe, Tongue swelling, 07/02/18) [place]-Stj-Cvd Reductase Inhibitor (Verified Adverse Reaction, Intermediate, Altered Mental Status, 07/02/18) codeine (Verified Adverse Reaction, Mild, "out of it". , 02/17/20) mixed with guifenasin duloxetine (Unverified Adverse Reaction, Mild, Nausea and vomiting, 9) clindamycin (Verified Adverse Reaction, Unknown, DIARRHEA, 02/29/20) A-FIB/CHADSVASC A-FIB History Current/History of A-Fib/PAF?: Yes Current PO Anticoag Therapy: Yes Age/Risk Factor Scoring CHADSVASC: CHADSVASC Response (Comments) Value Age Risk Factor Age >/= 75 years old 2 Gender Risk Factor Male 0 Hx of CHF Yes 1 Hx of HTN Yes 1 Hx of Stroke/TIA/or VTE Yes 2 Hx of Diabetes Yes 1 Hx of Vascular Disease Yes 1 Total 8 Treatment Treatment ordered: Jenna Estes MD Feb 29, 2020 12:43
[2020-02-29] MEDS ORDERED: ACETAMINOPHEN 500 MG TAB PO PRN (13:00)
[2020-02-29] MEDS ORDERED: GLUCAGON INJ 1MG VIAL SC PRN (13:00)
[2020-02-29] MEDS ORDERED: GABAPENTIN 100 MG CAP PO PRN (13:00)
[2020-02-29] MEDS ORDERED: DEXTROSE 50% 50 ML SYRINGE IV PRN (13:00)
[2020-02-29] MEDS ORDERED: GLUCOSE 4GM CHEW TABLET PO PRN (13:00)
[2020-02-29 14:58] LABS: CLOSTRIDIUM DIFFICILE PCR NEGATIVE (NEGATIVE)
[2020-02-29 15:45] VITALS: BP 170/96
[2020-02-29] MEDS ORDERED: SLF 3 ML SYR IV PRN (16:45)
[2020-02-29] MEDS ORDERED: WARFARIN SOD 5MG TAB PO ONE (17:00)
[2020-02-29] MEDS ORDERED: WARFARIN SOD 2MG TAB PO SCH (18:00)
[2020-02-29] MEDS ORDERED: LevoFLOXacin IV 750 MG in IV 1 EA IV SCH (18:00)
[2020-02-29 20:00] VITALS: BP 142/67
[2020-02-29] MEDS: METOPROLOL TART 50 MG TAB PO SCH (20:20)
[2020-02-29] MEDS: CitaloPRAM (CeleXA) 10 MG TABLET PO SCH (20:20)
[2020-02-29] MEDS: SLF 3 ML SYR IV SCH (20:21)
--- NOTE | 2020-02-29 22:05 | ECGEPIP ---
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
[2020-03-01] VITALS: BP 168/98
[2020-03-01 06:00] VITALS: BP 173/94
[2020-03-01] MEDS: HumaLOG INSULIN (NovoLOG) PER UNIT SC SCH ×5 (06:00→23:46)
[2020-03-01] MEDS: SLF 3 ML SYR IV SCH ×3 (06:13→21:08)
[2020-03-01 07:33] LABS: HEMATOCRIT 32.2 % (42.0-52.0); HEMOGLOBIN 10.5 g/dl (13.5-17.5); MEAN CORPUSCULAR HEMOGLOBIN 32.8 pg (27.0-33.0); MEAN CORPUSCULAR HGB CONC 32.6 g/dl (32.0-36.5); MEAN CORPUSCULAR VOLUME 100.6 fl (80.0-96.0); PLATELET COUNT, AUTOMATED 167 10^3/uL (150-450)
[2020-03-01 07:46] LABS: INR 1.96; PROTHROMBIN TIME 22.8 SECONDS (12.5-14.3)
[2020-03-01 08:01] LABS: CALCIUM LEVEL 8.7 MG/DL (8.8-10.2); CREATININE FOR GFR 2.5 MG/DL (0.70-1.30); GLOMERULAR FILTRATION RATE 26.9 (>42); POTASSIUM SERUM 4.3 MEQ/L (3.5-5.1)
[2020-03-01] MEDS ORDERED: ENOXAPARIN 30MG/0.3ML SYRINGE (J1650 PER 10MG) SC SCH (09:00)
[2020-03-01] MEDS: METOPROLOL TART 50 MG TAB PO SCH ×2 (09:21→21:08)
[2020-03-01 14:00] VITALS: BP 165/93
--- NOTE | 2020-03-01 16:25 | IPNPDOC ---
Text Note Date of Service The patient was seen on 03/01/20. NOTE Subjective: -Diarrhea persists -No abdominal pain, chest pain, and breathing comfortably on room air Objective: VS: HDS, afebrile, on room air. Please see below CONSTITUTIONAL: No acute distress, resting comfortably, AAO x 3 EYES: PERRLA, EOM intact HENT, MOUTH: Normocephalic, atraumatic, moist mucous membranes NECK: SUPPLE, no JVD, no lymphadenopathy, no carotid bruit CV: Regular rate and rhythm, S1S2 normal, no murmurs/rubs/gallops RESPIRATORY: Clear to auscultation bilaterally, no rales/rhonchi/wheezes GI: NTND, normoactive sounds in all 4 quadrants, soft, no rebound or guarding, no organomegaly EXTREMITIES: Normal ROM. No cyanosis, clubbing, swelling, joint deformity, extremity edema SKIN: Intact, no rashes, no lesions, no erythema NEUROLOGIC: Cranial Nerves II-XII are intact, no focal deficits PSYCHIATRIC: Mood and affect are normal LABORATORY DATA: reviewed. Please see below IMAGING: CXR: Chronic fibrotic changes. Continued improvement of right basilar infiltrate with minimal residual. ASSESSMENT: 75-year-old male with past medical history of coronary artery disease status post CABG, hypertension, PVD/PAD, atrial fibrillation on Coumadin, diabetes mellitus, recent hospitalization (02/16-) for community acquired PNA admitted for diarrhea rule out infectious source, IV treatment of community acquired PNA. PLAN: #Diarrhea r/o infectious source -Recent hospitalization, with abx use. -r/o c. diff, stool studies pending -Family thought it was 2/2 to PO abx as it started after discharge or ThickIt food thickening supplement. -CLD, thickened for now -diarrhea appears to have resolved #Community acquired PNA vs. aspiration pneumonia -Did not complete prior course of abx due to diarrhea -Currently saturating well on RA -F/u sputum culture, blood culture, legionella urine -On IV levaquin abx for now -Aspiration precautions #Hypertensive urgency -BP improving -Resume home medications #Dysphagia, risk for aspiration -Swallowing evaluation on last admission: Recommend level II [facility] diet, nectar thick liquids. Ordered a new evaluation. -Advance to [facility] diet, nectar thick liquids diet as tolerated #Physical deconditioning, acute on chronic -Recently discharged to continue with home services -PT/OT ordered to reevaluate #Chronic diastolic CHF -Recent admission patient was treated for exacerbation -CXR above shows no pulmonary vasc congestion, no s/s of fluid overload -Holding torsemide 2/2 to diarrhea -Echo 04/27/19 normal LVEF. AVR. Severe mitral annular calcification. -C/w diet above. previously on PO fluid restriction, 1500 cc/day so if s/s of overload occur may resume torsemide and start restrictions. -C/w BB BID with holding parameters #CAD -Stable -C/w ASA. Statin. Metoprolol 50 BID. #Chronic atrial fibrillation -INR subtherapeutic today at 1.65 -C/w AC with coumadin (4 mg SunTuWed/FriSat, 2 mg MonThur) -Metoprolol 50 mg BID. -Daily PT/INR, tele #DM2 with neuropathy -FSBG AC/HS, -Hypoglycemic precautions -ISS AC/HS -may restart glipizide on discharge #Peripheral neuropathy -C/w gabapentin. # Hx of CVA -C/w ASA/statin. -PT eval. #CKD III -Cr 2.6- baseline 2.3-2.9 -Avoid nephrotoxins. #Depression -Stable -C/w citalopram 10 mg qhs. #Macrocytic anemia - Last b12, folate wnl #DVT px -Warfarin. If remains subtherapeutic on 03/01/20 consider bridge. SCD, teds DISPOSITION: Admitted under inpatient status. PT/OT to reassess to help determine discharge plan when acute medical issues resolve. Pending c.diff results and monitoring the diarrhea. Pending speech re-eval. VS,Fishbone, I+O VS, Fishbone, I+O Laboratory Tests 02/29/20 10:28 03/01/20 07:07 Vital Signs Date Time Temp Pulse Resp B/P (MAP) Pulse Ox O2 Delivery O2 Flow Rate FiO2 03/01/20 06:00 98.0 72 14 173/94 (120) 98 Room Air I&O- Last 24 Hours up to 6 AM 03/01/20 06:00 Intake Total 1170 ml Output Total 0 ml Balance 1170 ml HAYDEN MALIN MD Mar 01, 2020 09:12
[2020-03-01] MEDS ORDERED: WARFARIN SOD 4MG TAB PO SCH (17:00)
[2020-03-01 20:00] VITALS: BP 167/97
[2020-03-01] MEDS: CitaloPRAM (CeleXA) 10 MG TABLET PO SCH (21:06)
[2020-03-02 06:00] VITALS: BP 126/63
[2020-03-02] MEDS: SLF 3 ML SYR IV SCH ×2 (06:00→14:00)
[2020-03-02] MEDS: HumaLOG INSULIN (NovoLOG) PER UNIT SC SCH ×2 (06:00→12:00)
[2020-03-02 09:02] VITALS: BP 124/66
[2020-03-02] MEDS: METOPROLOL TART 50 MG TAB PO SCH (09:02)
--- NOTE | 2020-03-02 18:58 | DS.PDOC ---
Discharge Summary General Date of Admission Feb 29, 2020 at 12:14 Date of Discharge 03/02/2020 Attending Physician: HAYDEN MALIN MD Discharge Summary PROCEDURES PERFORMED DURING STAY: None ADMITTING DIAGNOSES: 1. Diarrhea DISCHARGE DIAGNOSES: 1. Acute gastroenteritis likely 2/2 antibiotic therapy for recent PNA 2. Recent CAP with incomplete treatment at admission 3. Chronic CHF. 4. Coronary artery disease s/p CABG 5. Peripheral vascular disease. 6. Atrial fibrillation on coumadin 7. Diabetes mellitus. COMPLICATIONS/CHIEF COMPLAINT: Diarrhea,Pneumonia. HISTORY OF PRESENT ILLNESS: 75-year-old man with past medical history of coronary artery disease status post CABG, hypertension, PVD/PAD, atrial fibrillation on Coumadin, diabetes mellitus, recent hospitalization (02/16-) for community acquired PNA who presented with increased diarrhea over a week. The patient states after his hospitalization he was discharged home with oral clindamycin for abx treatment and ThickIt for diagnosis of dysphagia. He continued with treatment until 02/23/2020 when he stopped antibiotics due to him believing this was causing his diarrhea. He was also advised by his primary care provider to stop the thickening supplement with his foods as this had a side effect also of diarrhea. Despite him stopping these 2 things, he has persistently had 1015 episodes of watery diarrhea daily, nonbloody associated with lower abdominal cramping. He was also complaining of lethargy, increased weakness, increased flatulence, shortness of breath along with a nonproductive cough. He denied nausea, vomiting, fevers, chills, appetite changes, chest pains, recent exposure to sick contacts. HOSPITAL COURSE: Upon admission, C. diff was negative as well was the rest of the GI panel. He had a negative covid-19 test and he was started on levaquin to complete the CAP course of which he received for 3 days. His diarrhea resolved. Was stable on room air, was hydrated, evaluated by speech and deemed safe for small sips of water slowly as he declined further use of thickit and is now being discharged home. DISCHARGE MEDICATIONS: Please see below. ALLERGIES: Please see below. PHYSICAL EXAMINATION ON DISCHARGE: VITAL SIGNS: Please see below. CONSTITUTIONAL: No acute distress, resting comfortably, AAO x 3 EYES: PERRLA, EOM intact HENT, MOUTH: Normocephalic, atraumatic, moist mucous membranes NECK: SUPPLE, no JVD, no lymphadenopathy, no carotid bruit CV: Regular rate and rhythm, S1S2 normal, no murmurs/rubs/gallops RESPIRATORY: Clear to auscultation bilaterally, no rales/rhonchi/wheezes GI: NTND, normoactive sounds in all 4 quadrants, soft, no rebound or guarding, no organomegaly EXTREMITIES: Normal ROM. No cyanosis, clubbing, swelling, joint deformity, extremity edema SKIN: Intact, no rashes, no lesions, no erythema NEUROLOGIC: Cranial Nerves II-XII are intact, no focal deficits PSYCHIATRIC: Mood and affect are normal LABORATORY DATA: Please see below IMAGING: CXR: Chronic fibrotic changes. Continued improvement of right basilar infiltrate with minimal residual. PROGNOSIS: Good ACTIVITY: As tolerated. DIET: Consistent carb DISCHARGE PLAN: Home with PCP follow up within 7d. DISPOSITION: [address] [place] [address] [facility] Service. DISCHARGE INSTRUCTIONS: 1. Home with PCP follow up within 7d. ITEMS TO FOLLOWUP ON ON OUTPATIENT: 1. PCP follow up DISCHARGE CONDITION: Stable TIME SPENT ON DISCHARGE: 44 minutes. Vital Signs/I&Os Vital Signs Date Time Temp Pulse Resp B/P (MAP) Pulse Ox O2 Delivery O2 Flow Rate FiO2 03/02/20 09:02 66 124/66 03/02/20 06:00 97.6 18 96 Room Air I&O- Last 24 Hours up to 6 AM 03/02/20 06:00 Intake Total 960 ml Output Total 0 ml Balance 960 ml Laboratory Data Labs 24H Laboratory Tests 2 03/01/20 23:36: Bedside Glucose (Misc Panel) 215H 03/02/20 06:15: Bedside Glucose (Misc Panel) 154H 03/02/20 11:18: Bedside Glucose (Misc Panel) 251H FSBS Laboratory Tests Test 03/01/20 23:36 03/02/20 06:15 03/02/20 11:18 Range/Units Bedside Glucose (Misc Panel) 215 154 251 83-110 MG/DL Microbiology Microbiology 02/29/20 Campylobacter (PCR), Received Pending 02/29/20 Clostridium difficile Toxin A&B PCR, Received Pending 02/29/20 Plesiomonas shigelloides (PCR), Received Pending 02/29/20 Salmonella (PCR)(MANDIE), Received Pending 02/29/20 Vibrio Species (PCR), Received Pending 02/29/20 Vibrio Cholerae (PCR), Received Pending 02/29/20 Yersinia enterocolitica (PCR), Received Pending 02/29/20 Enteroaggregative E. coli (PCR), Received Pending 02/29/20 Enteropathogenic E. coli (PCR), Received Pending 02/29/20 Enterotoxigenic E. coli (PCR), Received Pending 02/29/20 E. coli Shiga-like Toxin (PCR), Received Pending 02/29/20 Escherichia coli 0157 (PCR), Received Pending 02/29/20 Enteroinvasive E. coli/Shigella PCR, Received Pending 02/29/20 Cryptosporidium (PCR), Received Pending 02/29/20 Cyclospora cayetanensis (PCR), Received Pending 02/29/20 Entamoeba histolytica (PCR), Received Pending 02/29/20 Giardia lamblia (PCR), Received Pending 02/29/20 Adenovirus Type F 40/41 (PCR), Received Pending 02/29/20 Astrovirus (PCR), Received Pending 02/29/20 Norovirus GI/GII (PCR), Received Pending 02/29/20 Rotavirus A (PCR), Received Pending 02/29/20 Sapovirus I/II/IV/V (PCR), Received Pending 02/29/20 Blood Culture - Preliminary, Resulted No Growth after 48 hours. All Specime... 02/29/20 Blood Culture - Preliminary, Resulted No Growth after 48 hours. All Specime... Discharge Medications Scheduled Cholecalciferol (Vitamin D3) (Vitamin D3) 50 Mcg Capsule, 2,000 UNITS PO DAILY, (Reported) TAKES AT NOON Citalopram Hydrobromide (Citalopram HBr) 20 Mg Tab, 10 MG PO QHS, (Reported) Echinacea (Echinacea) 380 Mg Cap, 380 MG PO DAILY, (Reported) Glipizide (Glipizide) 10 Mg Tab, 10 MG PO QAM, (Reported) Glipizide (Glipizide) 10 Mg Tablet, 5 MG PO QPM, (Reported) Metoprolol Tartrate (Metoprolol Tartrate) 50 Mg Tab, 50 MG PO BID, (Reported) Polyethylene Glycol 3350 (Miralax) 119 Gm Powder, 17 GM PO QHS, (Reported) HOLD FOR DIARRHEA Potassium Gluconate (Potassium) 99 Mg Tablet, 595 MG PO DAILY, (Reported) TAKES AT 1200 Warfarin Sodium (Warfarin Sodium) 4 Mg Tab, 4 MG PO 5XW, (Reported) SUN/TU/WED/SAT/SAT WITH DINNER Warfarin Sodium (Warfarin Sodium) 4 Mg Tablet, 2 MG PO 2XW, (Reported) MON/TH WITH DINNER Scheduled PRN Acetaminophen (Tylenol Extra Strength) 500 Mg Tablet, 1,000 MG PO Q6H PRN for PAIN, (Reported) Gabapentin (Gabapentin) 100 Mg Capsule, 100 MG PO QHS PRN for PAIN, (Reported) Torsemide (Torsemide) 20 Mg Tablet, 20 MG PO DAILY PRN for EDEMA, (Reported) Allergies Coded Allergies: [place] (Verified Allergy, Severe, ANAPHYLAXIS, 11/09/14) Penicillins (Verified Allergy, Severe, Anaphylaxis, 02/17/20) HAS RECEIVED 2nd & 3RD GEN CEPHALOSPORINS w/o PROBLEM metformin (Verified Allergy, Severe, Tongue swelling, 07/02/18) Ukqorck-Ysf-Fmk Reductase Inhibitor (Verified Adverse Reaction, Intermediate, Altered Mental Status, 07/02/18) codeine (Verified Adverse Reaction, Mild, "out of it". , 02/17/20) mixed with guifenasin duloxetine (Unverified Adverse Reaction, Mild, Nausea and vomiting, 07/02/18) clindamycin (Verified Adverse Reaction, Unknown, DIARRHEA, 02/29/20) HAYDEN MALIN MD Mar 02, 2020 18:58
[2020-03-03] MEDS ORDERED: WARFARIN SOD 2MG TAB PO SCH (17:00)
== END 2020-03-02 13:55 | disposition home health service (06) | DRG 393 ==
LOC: M ED 10:08 → EDBD 10:08 → M ED INP 12:14 → ENRESERV 14:33 → M PCU 15:41 → M MS5PR 03-01 02:25
PROVIDERS: ADMIT Internal Medicine; ATTEND Internal Medicine
DX: K52.1 Toxic gastroenteritis and colitis (principal); J18.9 Pneumonia, unspecified organism; I48.20 Chronic atrial fibrillation, unspecified; T36.95XA Adverse effect of unspecified systemic antibiotic, initial encounter; E11.51 Type 2 diabetes mellitus with diabetic peripheral angiopathy without gangrene; Z79.01 Long term (current) use of 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s; I25.10 Atherosclerotic heart disease of native coronary artery without angina pectoris; I50.9 Heart failure, unspecified; Z79.899 Other long term (current) drug therapy; Z88.0 Allergy status to penicillin; Z88.8 Allergy status to other drugs, medicaments and biological substances; Z91.018 Allergy to other foods; Z88.5 Allergy status to narcotic agent; Z88.1 Allergy status to other antibiotic agents; I25.2 Old myocardial infarction; Z86.73 Personal history of transient ischemic attack (TIA), and cerebral infarction without residual deficits; Z95.2 Presence of prosthetic heart valve; F32.9 Major depressive disorder, single episode, unspecified; D64.9 Anemia, unspecified; N18.30 Chronic kidney disease, stage 3 unspecified

== ENCOUNTER → 2020-03-11 | Outpatient (REF) | payer MEDICARE, MEDICAID ==
[2020-03-11 16:44] LABS: CALCIUM LEVEL 8.9 MG/DL (8.8-10.2); CREATININE FOR GFR 2.53 MG/DL (0.70-1.30); GLOMERULAR FILTRATION RATE 26.6 (>42); POTASSIUM SERUM 4.8 MEQ/L (3.5-5.1)
== END ==
LOC: M SFHCCLAY 10:48
PROVIDERS: ATTEND Family Medicine
DX: N18.32 Chronic kidney disease, stage 3b (principal)
CPT/HCPCS: 80048; 99495; G0463

== ENCOUNTER → 2020-04-04 | Outpatient (REF) | payer MEDICARE, MEDICAID ==
[~2020-04-04] MED LIST changes: -CLIN150C14 PO; +CLIN150C15 PO; -QUET1TAB7 GT; +QUET25TA3 GT
[2020-04-04 16:46] LABS: HEMOGLOBIN A1c 7.8 %
[2020-04-04 16:57] LABS: ALBUMIN 3.4 GM/DL (3.2-5.2); BILIRUBIN,TOTAL 0.4 MG/DL (0.2-1.0); CALCIUM LEVEL 8.8 MG/DL (8.8-10.2); CREATININE FOR GFR 2.47 MG/DL (0.70-1.30); GLOMERULAR FILTRATION RATE 27.3 (>42); POTASSIUM SERUM 4.7 MEQ/L (3.5-5.1)
== END ==
LOC: M SFHCCLAY 11:04
PROVIDERS: ATTEND Family Medicine
DX: E11.22 Type 2 diabetes mellitus with diabetic chronic kidney disease (principal)
CPT/HCPCS: 80053; 83036; G0463

== ENCOUNTER → 2020-04-13 | Outpatient (CLI) | payer MEDICARE, MEDICAID ==
[~2020-04-13] MED LIST changes: +CLIN150C14 PO; -CLIN150C15 PO; +QUET1TAB7 GT; -QUET25TA3 GT
--- NOTE | 2020-04-13 14:54 | REP ---
INDICATION: DYSPHAGIA. COMPARISON: None. TECHNIQUE: The procedure was performed by Kassidy Campoverde [facility], under the direct supervision of Dr. Garcia. The procedure was performed with Vianney Viera from speech pathology present. 5 ml aliquots of thin, pudding, mixed fruit, soft food, hard food and nectar consistency barium was administered. FINDINGS: Penetration is visualized with both thin and nectar thick consistency barium. The detailed report of this examination will be provided by speech pathology. IMPRESSION: Penetration visualized with both thin and nectar thick consistency barium, a complete detailed report will be provided by speech pathology. 2.6 minutes of fluoroscopy time was utilized for this procedure. Some fluoroscopic images are performed with last image hold technology. These images require no additional radiation <Electronically signed by Kassidy Campoverde > 04/13/20 1326 <Electronically signed by Loki Garcia > 04/13/20 [id number]
== END ==
LOC: M ST 12:23
PROVIDERS: ATTEND Family Medicine
DX: R13.12 Dysphagia, oropharyngeal phase (principal)

== ENCOUNTER 2020-04-27 10:57 | Emergency (ER) | payer MEDICARE, MEDICAID ==
[~2020-04-27] VITALS: Ht 177.8 cm; Wt 87.3 kg
[~2020-04-27 10:57] MED LIST changes: -CLIN150C14 PO; +CLIN150C15 PO; -QUET1TAB7 GT; +QUET25TA3 GT
--- OUTSIDE RECORDS SUMMARY | 2020-04-27 13:10 | CCD ---
Author Author [facility] Organization [facility] Address Unknown Phone Unavailable Care Team Providers Care Rubber Flap Cutter Name Role Phone Martin Mcclure Unavailable PROBLEMS Type Condition ICD9-CM Code [id number] Code Onset Dates Condition S tatus SNOMED Code Notes Problem Major depressive disorder, single episode, unspecified F32.9 Active 90615626 Problem Essential (primary) hypertension I10 Active 04832996 Problem Lumbar disc herniation with myelopathy M51.06 A ctive 068155954 Problem Type 2 diabetes mellitus without complications E11 .9 Active 541207436 Problem 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 Active 657423087 Problem Gait disturbance R26.9 Active 20497577 Problem Anxiety F41.9 Active 59887132 Problem Type 2 diabetes mellitus with diabetic chronic kidney disease E11.22 Active 467122885046 Problem Obstructive sleep apnea syndrome G47.33 Active 06143003 Problem Nonrheumatic aortic valve stenosis I35.0 Activ e 818374178 Problem S/P aortic valve replacement Z95.2 Active 123 6243309107 Problem Gastrointestinal tube present Z93.1 Active 44 1433637 Problem roasterman current use of 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 Z79.01 A ctive 638348012 Problem Coronary artery disease invo lving [place] coronary artery of [place] heart without angina pectoris I25.10 Active 746038407037 7 Problem Atherosclerosis of [place] ar teries of left leg with ulceration of other part of foot I70.245 Active 873580000387136 Problem Type 2 diabetes mellitus with foot ulcer E11.621 Active 922183672 Problem Chronic heart failure with preserved ejection fraction I50.32 Active 239001388 Problem Oropharyngeal dysphagia R13.12 Active 05047921 Problem Type 2 diabetes mellitus with other diabetic kid quita complication E11.29 Active 48092959 Problem 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 Active 682604537 Problem Non-seasonal allergic rhinitis due to other allergic melva er J30.89 Active 93253920 Problem CKD (chronic kidney disease) stage 3, GFR 30-59 ml/min N18.3 Active 664025957 Problem Cerebrovascular accident (CVA) due to occlusion of small artery I63.81 Active 013714144 Problem 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 Acti ve 538585553 Problem 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 Activ e 942371537 Problem Chronic atrial fibrillation I48.20 Active 4267 35030 ALLERGIES Allergen (clinical drug ingredient) Drug/Non Drug Allergy do cumented on EMR Reaction Allergy Type Onset Date Status metformin Metformin HCl([facility] Code:[address]-96) anxiety Drug Chapito rgy Active Penicillin (For Allergies Use Only) Anaphylaxis Drug Aller gy Active lovastatin Lovastatin(ND Code:[address]-32) irritablity Drug Allerg y Active duloxetine Cymbalta([facility] Code:[address]-35) Nausea/vomiting Drug Chapito rgy Active atorvastatin Atorvastatin Calcium([facility] Code:[address]-25) irr itability Drug Allergy Active rosuvastatin Crestor([facility] Code:[address]-96) irritability Drug Allerg y Active ENCOUNTERS from 1945 to 2020-04-22 Encounter Location Date Provider Diagnosis [facility] [address] [place] [address] [facility]UN[facility] No Information SOCIAL HISTORY Tobacco Use: Social History Observation Description Date Details (start date - stop date) Never Smoker Sex Assigned At : Social History Observation Description Sex Assigned At Unknown Education: Question Answer Notes Level of Education: College Audit Question Answer Notes Total Score: 0 Interpretation: Alcohol Education Domestic Violence: Question Answer Notes Status: Sexual Hx: Question Answer Notes Had sex in the last 12 months (vaginal, oral, or anal)? No Have you ever had an STD? No Drug and Alcohol Question Answer Notes Total Score: 0 Interpretation: No problems reported Alcohol Screening: Question Answer Notes Did you have a drink containing alcohol in the past year? No Points 0 Interpretation Negative BMI Care Goal Follow-Up Question Answer Notes Above Normal BMI Follow-Up Dietary management educatio n, guidance, and counseling Tobacco Use: Question Answer Notes Are you a: never smoker never smoker Additional Findings: Tobacco Non-User Current non-smoker REASON FOR REFERRAL No Information VITAL SIGNS No information MEDICATIONS Medication SIG (Take, Route, Frequency, Duration) Notes Start Da te End Date Status Echinacea - as directed Orally Jan, Act rafal Potassium 99 MG 1 tablet Orally Once a day Active Polyethylene Glycol - 17 gram orally at bedtime for constipation Active Splint Wrist Brace/Left-Right - b/l carpal tunnel Spli nts for both wrists for 30 Days Active GlipiZIDE 10 MG 1 tablet in the am, 1/2 tab in the evening Orally Twice daily for 90 day(s) Active Glucometer as directed Daily for 90 day(s) Active Metoprolol Tartrate 50 MG 1 tablet with food Orally Twice a day for 90 days Active Acetaminophen 500 MG 2 tablet as needed Orally ev alyse 6 hrs as needed for pain Not to exceed 6 tablets in 24 hr period Active Tramadol HCl 50 MG 1 tablet as needed Orally Up to QID MDD#4 for 7 da y(s) Active Lancets - as directed three times daily on insulin for 90 day(s) Active Gabapentin 100 MG 1 capsule Orally Once a day for 30 day(s) Active Vitamin D-3 1000 UNIT 2 capsules Orally Once a day Active Blood Glucose Test - as directed In Vitro three t imes daily- pt on insulin for 90 day(s) Active Citalopram Hydrobromide 20 MG 1/2 tablet Orally at bedtime for 90 day (s) Active Warfarin Sodium 4 MG 1/2 tab MONDAYS AND SATURDAY and full tab SUNDAYS/ TUESDAYS/WEDNESDAYS/ FRIDAYS AND SATURDAY Orally before bedtime for 90 day(s) Active Walker - heavy duty wheeled walker with seat and hand brakes Dx R26 .9 Active Coumadin 1 MG 1 tablet Orally Once a day as directed for 90 days Mar, Active Physical Therapy evaluate and treat as directed 1-3X/w enterprise Dx Gait instability as well as upper and lower extremity weakness for 42 days Jan, 020 Active Torsemide 20 MG 1 tablet Orally Once a day for 90 day(s) Active PROCEDURES No Information RESULTS No Results REASON FOR VISIT No Information MEDICAL (GENERAL) HISTORY Type Description Date Medical History Diabetes Medical History Hypertension Medical History Depression Medical History Squamous cell cancer right h and, right shoulder, right lower leg Medical History Herniated disc,pinched sciatic nerve Medical History Myocardial infarction Medical History Aortic stenosis Medical History Sleep apnea Medical History CAD Surgical History Back surgery 2004 Surgical History Squamous cell right hand 2003 Surgical History left eye cataract surgery 07/07/14 Surgical History Colonoscopy Surgical History skin cancer removal left shoulder and ri ght lower calf 02/2017 Surgical History CABG X 6, Aortic valve replacement- [facility] 02/2018 Surgical History CVA 2018 Hospitalization History Back surgery 2004 Hospitalization History Heart attack 2005 Hospitalization History CVA- [facility], [facility] 02/2018 Hospitalization History [facility]-CHF, Pneumonia 06/2018 Hospitalization History [facility]-Pneumonia 01/2019 Hospitalization History pneumonia 04/2019 Hospitalization History [facility]- Pneumonia, CHF 02/2020 Hospitalization History [facility]- Diarrhea, pneumonia 02/2020 Goals Section No Information Health Concerns No Information MEDICAL EQUIPMENT No Information MENTAL STATUS No Information FUNCTIONAL STATUS No Information ASSESSMENTS No Information PLAN OF TREATMENT Next Appt Details Provider Name:Martin Mcclure, 11:00:00 AM, [address] [place], [address], Provider Name:Magdaleno Reno, 10:00:00 AM, [place], [address], Insurance Providers Payer Name Payer Address Payer Phone Insured Name Patient Relati onship to Insured Coverage Start Date Coverage End Date MEDICAID [place] [address] [facility] [id number] MARTHA LOPEZ MEDICARE Part A and B [address] [facility] [address] [phone] MARTHA LOPEZ
--- OUTSIDE RECORDS SUMMARY | 2020-04-27 13:10 | CCD ---
Author Author [facility] Organization [facility] Address Unknown Phone Unavailable Care Team Providers Care Press Manager Name Role Phone Magdaleno Reno Unavailable PROBLEMS Type Condition ICD9-CM Code [id number] Code Onset Dates Condition S tatus SNOMED Code Notes Problem Essential (primary) hypertension I10 Active 33239428 Problem Type 2 diabetes mellitus without complications E11 .9 Active 967286945 Problem Major depressive disorder, single episode, unspecified F32.9 Active 86271366 Problem Gait disturbance R26.9 Active 49028843 Problem skilled nursing current use of 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 Z79.01 A ctive 143639248 Problem Type 2 diabetes mellitus with diabetic chronic kidney disease E11.22 Active 392612926318 Problem CKD (chronic kidney disease) stage 3, GFR 30-59 ml/min N18.3 Active 775520712 Problem Nonrheumatic aortic valve stenosis I35.0 Activ e 441181968 Problem Anxiety F41.9 Active 05019580 Problem Gastrointestinal tube present Z93.1 Active 44 7046642 Problem Obstructive sleep apnea syndrome G47.33 Active 36609861 Problem Coronary artery disease invo lving [place] coronary artery of [place] heart without angina pectoris I25.10 Active 539505609511 7 Problem S/P aortic valve replacement Z95.2 Active 123 9414920783 Problem 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 Active 439020151 Problem Atherosclerosis of [place] teries of left leg with ulceration of other part of foot I70.245 Active 047732810507910 Problem Type 2 diabetes mellitus with foot ulcer E11.621 Active 678635697 Problem Chronic atrial fibrillation I48.20 Active 4267 35580 Problem Non-seasonal allergic rhinitis due to other allergic melva er J30.89 Active 02897277 Problem Oropharyngeal dysphagia R13.12 Active 10279727 Problem Lumbar disc herniation with myelopathy M51.06 A ctive 858693352 Problem Type 2 diabetes mellitus with other diabetic kid quita complication E11.29 Active 42887369 Problem Chronic heart failure with preserved ejection fraction I50.32 Active 022847649 Problem Cerebrovascular accident (CVA) due to occlusion of small artery I63.81 Active 680216854 Problem 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 Acti ve 648053763 Problem 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 Activ e 197429660 ALLERGIES Allergen (clinical drug ingredient) Drug/Non Drug Allergy do cumented on EMR Reaction Allergy Type Onset Date Status metformin Metformin HCl([facility] Code:[address]-63) anxiety Drug Chapito rgy Active Penicillin (For Allergies Use Only) Anaphylaxis Drug Aller gy Active lovastatin Lovastatin([facility] Code:[address]-63) irritablity Drug Allerg y Active duloxetine Cymbalta([facility] Code:[address]-53) Nausea/vomiting Drug Chapito rgy Active atorvastatin Atorvastatin Calcium([facility] Code:[address]-98) irr itability Drug Allergy Active rosuvastatin Crestor([facility] Code:[address]-61) irritability Drug Allerg y Active ENCOUNTERS from 1945 to 2020-04-13 Encounter Location Date Provider Diagnosis [facility] [address] [place] [address] Apr Magdaleno Reno Type 2 diabetes mellitus with diabetic c hronic kidney disease E11.22 ; Chronic heart failure with preserved ejection fraction I50.32 ; Anxiety F41.9 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 IMMUNIZATIONS No Information SOCIAL HISTORY Tobacco Use: [...] Notes Start Da te End Date Status Splint Wrist Brace/Left-Right - b/l carpal tunnel Spli nts for both wrists for 30 Days Active Blood Glucose Test - as directed In Vitro three t imes daily- pt on insulin for 90 day(s) Active Physical Therapy evaluate and treat as directed 1-3X/w [place] Dx Gait instability as well as upper and lower extremity weakness for 42 days Jan, 020 Active GlipiZIDE 10 MG 1 tablet in the am, 1/2 tab in the evening Orally Twice daily for 90 day(s) Active Walker - heavy duty wheeled walker with seat and hand brakes Dx R26 .9 Active Potassium 99 MG 1 tablet Orally Once a day Active Tramadol HCl 50 MG 1 tablet as needed Orally Up to QID MDD#4 for 7 da y(s) Active Citalopram Hydrobromide 20 MG 1/2 tablet Orally at bedtime for 90 day (s) Active Gabapentin 100 MG 1 capsule Orally Once a day for 30 day(s) Active Vitamin D-3 1000 UNIT 2 capsules Orally Once a day Active Lancets - as directed three times daily on insulin for 90 day(s) Active Polyethylene Glycol - 17 gram orally at bedtime for constipation Active Torsemide 20 MG 1 tablet Orally Once a day for 90 day(s) Active Glucometer as directed Daily for 90 day(s) Active Echinacea - as directed Orally Jan, Act rafal Coumadin 1 MG 1 tablet Orally Once a day as directed for 90 days Mar, Active Warfarin Sodium 4 MG 1/2 tab MONDAYS AND SATURDAY and full tab SUNDAYS/ TUESDAYS/WEDNESDAYS/ FRIDAYS AND SATURDAY Orally before bedtime for 90 day(s) Active Metoprolol Tartrate 50 MG 1 tablet with food Orally Twice a day for 90 days Active Acetaminophen 500 MG 2 tablet as needed Orally ev alyse 6 hrs as needed for pain Not to exceed 6 tablets in 24 hr period Active PROCEDURES No Information RESULTS No Results REASON FOR VISIT med refills MEDICAL (GENERAL) HISTORY Type Description Date Medical History Diabetes Medical History Hypertension Medical History Depression Medical History Squamous cell cancer right h and, right shoulder, right lower leg Medical History Herniated disc,pinched sciatic nerve Medical History Myocardial infarction Medical History Aortic stenosis Medical History Sleep apnea Medical History CAD Surgical History Back surgery 2004 Surgical History Squamous cell right hand 2004 Surgical History left eye cataract surgery 07/07/14 Surgical History Colonoscopy Surgical History skin cancer removal left shoulder and ri ght lower calf 02/2017 Surgical History CABG X 6, Aortic valve replacement- [facility] 02/2018 Surgical History CVA 2018 Hospitalization History Back surgery 2004 Hospitalization History Heart attack 2005 Hospitalization History CVA- [facility] 02/[address] [facility]-CHF, Pneumonia 06/[address] [facility]-Pneumonia 01/2019 Hospitalization History pneumonia 04/[address] [facility]- Pneumonia, CHF 02/[address] [facility]- Diarrhea, pneumonia 02/2020 Goals Section No Information Health Concerns No Information MEDICAL EQUIPMENT No Information MENTAL STATUS No Information FUNCTIONAL STATUS No Information ASSESSMENTS Encounter Date Diagnosis Assessment Notes Treatment Notes Treatm ent Clinical Notes Apr, Type 2 diabetes mellitus wit h diabetic chronic kidney disease (ICD- 10 - E11.22) Apr, Chronic heart failure with p reserved ejection fraction (ICD-10 - I50.32) Apr, Anxiety (ICD-10 - F41.9) Apr, skilled nursing current use of 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 (ICD-10 - Z79.01) PLAN OF TREATMENT Medication Medication Name Sig Start Date Stop Date Citalopram Hydrobromide 20 MG 1/2 tablet Orally at bedtime for 9 0 day(s) Warfarin Sodium 4 MG 1/2 tab MONDAYS AND SATURDAY and full tab SUNDAYS/ TUESDAYS/WEDNESDAYS/ FRIDAYS AND SATURDAY Orally before bedtime for 90 day(s) Torsemide 20 MG 1 tablet Orally Once a day for 90 day(s) Gabapentin 100 MG 1 capsule Orally Once a day for 30 day(s) GlipiZIDE 10 MG 1 tablet in the am, 1/2 tab in the evening Orally Twice daily for 90 day(s) Metoprolol Tartrate 50 MG 1 tablet with food Orally Twice a day for 90 days Tramadol HCl 50 MG 1 tablet as needed Orally Up to QID MDD#4 for 7 day(s) Next Appt Details Provider Name:Magdaleno Reno, 07:15:00 AM, [address], [place], [address], Provider Name:Martin Mcclure, 01:00:00 PM, [address] [place], [address], Provider Name:Magdaleno Reno, 10:00:00 AM, [address], [place], [address], Insurance Providers Payer Name Payer Address Payer Phone Insured Name Patient Relati onship to Insured Coverage Start Date Coverage End Date MEDICARE Part A and B [address] [facility] [phone] MARTHA LOPEZ MEDICAID [employer] [address] [facility] [id number] MARTHA LOPEZ
--- OUTSIDE RECORDS SUMMARY | 2020-04-27 13:10 | CCD ---
Author Author [facility] Organization [facility] Address Unknown Phone Unavailable Care Team Providers Care Electric Meter Tester Name Role Phone Martin Mcclure Unavailable PROBLEMS Type Condition ICD9-CM Code OON75-ME Code Onset Dates Condition S tatus SNOMED Code Notes Problem Major depressive disorder, single episode, unspecified F32.9 Active 06137503 Problem Essential (primary) hypertension I10 Active 72100982 Problem Lumbar disc herniation with myelopathy M51.06 A ctive 635589865 Problem Type 2 diabetes mellitus without complications E11 .9 Active 470501695 Problem 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 Active 252787907 Problem Gait disturbance R26.9 Active 59640080 Problem Anxiety F41.9 Active 61814861 Problem Type 2 diabetes mellitus with diabetic chronic kidney disease E11.22 Active 960838481574 Problem Obstructive sleep apnea syndrome G47.33 Active 50665571 Problem Nonrheumatic aortic valve stenosis I35.0 Activ e 306594537 Problem S/P aortic valve replacement Z95.2 Active 123 1679239914 Problem Gastrointestinal tube present Z93.1 Active 44 5862739 Problem 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 A ctive 353658068 Problem Coronary artery disease invo lving [place] coronary artery of [place] heart without angina pectoris I25.10 Active 467249055579 7 Problem Atherosclerosis of [place] ar teries of left leg with ulceration of other part of foot I70.245 Active 335730122121933 Problem Type 2 diabetes mellitus with foot ulcer E11.621 Active 884082784 Problem Chronic heart failure with preserved ejection fraction I50.32 Active 208821262 Problem Oropharyngeal dysphagia R13.12 Active 22847768 Problem Type 2 diabetes mellitus with other diabetic kid quita complication E11.29 Active 11673077 Problem 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 Active 370616119 Problem Non-seasonal allergic rhinitis due to other allergic melva er J30.89 Active 71877155 Problem CKD (chronic kidney disease) stage 3, GFR 30-59 ml/min N18.3 Active 004585941 Problem Cerebrovascular accident (CVA) due to occlusion of small artery I63.81 Active 171259917 Problem 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 Code:[address]-96) anxiety Drug Chapito rgy Active Penicillin (For Allergies Use Only) Anaphylaxis Drug Aller gy Active lovastatin Lovastatin([facility] Code:[address]-23) irritablity Drug Allerg y Active duloxetine Cymbalta([facility] Code:[address]-52) Nausea/vomiting Drug Chapito rgy Active atorvastatin Atorvastatin Calcium([facility] Code:[address]-55) irr itability Drug Allergy Active rosuvastatin Crestor([facility] Code:[address]-81) irritability Drug Allerg y Active ENCOUNTERS from 1945 to 2020-04-21 Encounter Location Date Provider Diagnosis [facility] [address] [place] [address] [facility] IMMUNIZATIONS No Information SOCIAL HISTORY Tobacco [...] Therapy evaluate and treat as directed 1-3X/w [place] Dx Gait instability as well as upper [...] History CABG X 6, Aortic valve replacement- [facility] 02/2018 Surgical History CVA 2018 Hospitalization History Back surgery 2004 Hospitalization History Heart attack 2005 Hospitalization History CVA- [facility], [facility] 02/2018 Hospitalization History [facility]-CHF, Pneumonia 06/2018 Hospitalization History [facility]-Pneumonia 01/2019 Hospitalization History pneumonia 04/2019 Hospitalization History [facility]- Pneumonia, CHF 02/2020 Hospitalization History [facility]- Diarrhea, pneumonia 02/2020 Goals Section No Information Health Concerns No Information MEDICAL EQUIPMENT No Information MENTAL STATUS No Information FUNCTIONAL STATUS No Information ASSESSMENTS No Information PLAN OF TREATMENT Next Appt Details Provider Name:Martin Mcclure, 11:00:00 AM, [address] [place], [address], Provider Name:Magdaleno Reno, 10:00:00 AM, [place], [address], Insurance Providers Payer Name Payer Address Payer Phone Insured Name Patient Relati onship to Insured Coverage Start Date Coverage End Date MEDICARE Part A and B [address] [facility] [phone] MARTHA LOPEZ MEDICAID [employer] [address] [facility] [id number] MARTHA LOPEZ
--- OUTSIDE RECORDS SUMMARY | 2020-04-27 13:10 | CCD ---
Author Author [facility] Organization [facility] Address Unknown Phone Unavailable Care Team Providers Care Associate Director Regulatory Affairs Name Role Phone Magdaleno Reno Unavailable PROBLEMS Type Condition ICD9-CM Code XST34-WA Code Onset Dates Condition S tatus SNOMED Code Notes Problem Major depressive disorder, single episode, unspecified F32.9 Active 62425418 Problem Essential (primary) hypertension I10 Active 86299334 Problem Lumbar disc herniation with myelopathy M51.06 A ctive 754420109 Problem Type 2 diabetes mellitus without complications E11 .9 Active 823961121 Problem 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 Active 944318255 Problem Gait disturbance R26.9 Active 38922487 Problem Anxiety F41.9 Active 77154682 Problem Type 2 diabetes mellitus with diabetic chronic kidney disease E11.22 Active 395320355705 Problem Obstructive sleep apnea syndrome G47.33 Active 20861758 Problem Nonrheumatic aortic valve stenosis I35.0 Activ e 804931622 Problem S/P aortic valve replacement Z95.2 Active 123 3792040678 Problem Gastrointestinal tube present Z93.1 Active 44 6932381 Problem halfway current use of 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 Z79.01 A ctive 831410118 Problem Coronary artery disease invo lving [place] coronary artery of [place] heart without angina pectoris I25.10 Active 513446709898 7 Problem Atherosclerosis of [place] ar teries of left leg with ulceration of other part of foot I70.245 Active 154480543054929 Problem Type 2 diabetes mellitus with foot ulcer E11.621 Active 738945349 Problem Chronic heart failure with preserved ejection fraction I50.32 Active 750556343 Problem Oropharyngeal dysphagia R13.12 Active 94361791 Problem Type 2 diabetes mellitus with other diabetic kid quita complication E11.29 Active 54960182 Problem 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 Active 406647091 Problem Non-seasonal allergic rhinitis due to other allergic melva er J30.89 Active 80631239 Problem CKD (chronic kidney disease) stage 3, GFR 30-59 ml/min N18.3 Active 878128594 Problem Cerebrovascular accident (CVA) due to occlusion of small artery I63.81 Active 762841145 Problem 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 Acti ve 225034100 Problem 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 Activ e 690258224 Problem Chronic atrial fibrillation I48.20 Active 4267 73005 ALLERGIES Allergen (clinical drug ingredient) Drug/Non Drug Allergy do cumented on EMR Reaction Allergy Type Onset Date Status metformin Metformin HCl([facility] Code:[address]-53) anxiety Drug Chapito rgy Active Penicillin (For Allergies Use Only) Anaphylaxis Drug Aller gy Active lovastatin Lovastatin([facility] Code:[address]-32) irritablity Drug Allerg y Active duloxetine Cymbalta([facility] Code:[address]-09) Nausea/vomiting Drug Chapito rgy Active atorvastatin Atorvastatin Calcium([facility] Code:[address]-26) irr itability Drug Allergy Active rosuvastatin Crestor([facility] Code:[address]-61) irritability Drug Allerg y Active ENCOUNTERS from 1945 to 2020-04-19 Encounter Location Date Provider Diagnosis [facility] [address] [place] [address] Apr Magdaleno Reno 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 79.01 IMMUNIZATIONS No Information SOCIAL HISTORY Tobacco Use: [...] Notes Start Da te End Date Status Torsemide 20 MG 1 tablet Orally Once a day for 90 day(s) Active Vitamin D-3 1000 UNIT 2 capsules Orally Once a day Active Polyethylene Glycol - 17 gram orally at bedtime for constipation Active Splint Wrist Brace/Left-Right - b/l carpal tunnel Spli nts for both wrists for 30 Days Active Tramadol HCl 50 MG 1 tablet as needed Orally Up to QID MDD#4 for 7 da y(s) Active Coumadin 1 MG 1 tablet Orally Once a day as directed for 90 days Mar, Active GlipiZIDE 10 MG 1 tablet in the am, 1/2 tab in the evening Orally Twice daily for 90 day(s) Active Echinacea - as directed Orally Jan, Act rafal Glucometer as directed Daily for 90 day(s) Active Lancets - as directed three times daily on insulin for 90 day(s) Active Walker - heavy duty wheeled walker with seat and hand brakes Dx R26 .9 Active Gabapentin 100 MG 1 capsule Orally Once a day for 30 day(s) Active Blood Glucose Test - as directed In Vitro three t imes daily- pt on insulin for 90 day(s) Active Potassium 99 MG 1 tablet Orally Once a day Active Warfarin Sodium 4 MG 1/2 tab MONDAYS AND SATURDAY and full tab SUNDAYS/ TUESDAYS/WEDNESDAYS/ FRIDAYS AND SATURDAY Orally before bedtime for 90 day(s) Active Citalopram Hydrobromide 20 MG 1/2 tablet Orally at bedtime for 90 day (s) Active Acetaminophen 500 MG 2 tablet as needed Orally ev alyse 6 hrs as needed for pain Not to exceed 6 tablets in 24 hr period Active Physical Therapy evaluate and treat as directed 1-3X/w [place] Dx Gait instability as well as upper and lower extremity weakness for 42 days Jan, Active Metoprolol Tartrate 50 MG 1 tablet with food Orally Twice a day for 90 days Active PROCEDURES No Information RESULTS Component Value Reference Range PT-INR Reviewed date:04/18/2020 06:43:17 Interpretation: Performing Lab:[facility], ,[place] [address] INR 2.6 Verified Patient's Name and Current Dose 1 2MG M/TH 4MG ROW Current Dose 2 Tab Strength Indication for Anticoagulation CAGB/CVA Ecchymosis or Bleeding Noted INR Range 2-3 Prothrombin Time/INR Protime Hold for Day(s) Education Given (Date / Initials) New Dose 1 no change New Dose 2 Next PT Check 1 week Comments for PT-INR REASON FOR VISIT HOME INR MEDICAL (GENERAL) HISTORY Type Description Date Medical [...] History CABG X 6, Aortic valve replacement- [facility] 02/2018 Surgical History CVA 2018 Hospitalization History Back surgery 2004 Hospitalization History Heart attack 2006 Hospitalization History CVA- [facility] 02/2018 Hospitalization History [facility]-CHF, Pneumonia 06/2018 Hospitalization History [facility]-Pneumonia 01/2019 Hospitalization History pneumonia 04/2019 Hospitalization History [facility]- Pneumonia, CHF 02/2020 Hospitalization History [facility]- Diarrhea, pneumonia 02/2020 Goals Section No Information Health Concerns No Information MEDICAL EQUIPMENT No Information MENTAL STATUS No Information FUNCTIONAL STATUS No Information ASSESSMENTS Encounter Date Diagnosis Assessment Notes Treatment Notes Treatm ent Clinical Notes Apr, halfway current use of 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 (ICD-10 - Z79.01) PLAN OF TREATMENT Next Appt Details Provider Name:Martin Mcclure, 01:15:00 PM, [address] [place], [address], Provider Name:Martin Mcclure 11:00:00 AM, [place], [address], Provider Name:Magdaleno Reno, 10:00:00 AM, [address] [place], [address], Insurance Providers Payer Name Payer Address Payer Phone Insured Name Patient Relati onship to Insured Coverage Start Date Coverage End Date MEDICAID [employer] [address] [facility] [address] MARTHA LOPEZ MEDICARE Part A and B [address] [facility] [address] [phone] MARTHA LOPEZ
--- OUTSIDE RECORDS SUMMARY | 2020-04-27 13:10 | CCD ---
Author Author [facility] Organization [facility] Address Unknown Phone Unavailable Care Team Providers Care Lighthouse Keeper Name Role Phone Martin Mcclure Unavailable PROBLEMS Type Condition ICD9-CM Code [id number] Code Onset Dates Condition S tatus SNOMED Code Notes Problem Major depressive disorder, single episode, unspecified F32.9 Active 64610302 Problem Essential (primary) hypertension I10 Active 86162471 Problem Lumbar disc herniation with myelopathy M51.06 A ctive 350010717 Problem Type 2 diabetes mellitus without complications E11 .9 Active 261449217 Problem 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 Active 083536863 Problem Gait disturbance R26.9 Active 72165634 Problem Anxiety F41.9 Active 09526127 Problem Type 2 diabetes mellitus with diabetic chronic kidney disease E11.22 Active 179236384800 Problem Obstructive sleep apnea syndrome G47.33 Active 45614935 Problem Nonrheumatic aortic valve stenosis I35.0 Activ e 398616497 Problem S/P aortic valve replacement Z95.2 Active 123 5976453767 Problem Gastrointestinal tube present Z93.1 Active 44 1814846 Problem 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 Z79.01 A ctive 828131044 Problem Coronary artery disease invo lving [place] coronary artery of [place] heart without angina pectoris I25.10 Active 447368439157 7 Problem Atherosclerosis of [place] ar teries of left leg with ulceration of other part of foot I70.245 Active 500169076610393 Problem Type 2 diabetes mellitus with foot ulcer E11.621 Active 587322600 Problem Chronic heart failure with preserved ejection fraction I50.32 Active 868804066 Problem Oropharyngeal dysphagia R13.12 Active 84870253 Problem Type 2 diabetes mellitus with other diabetic kid quita complication E11.29 Active 75796411 Problem 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 Active 415777562 Problem Non-seasonal allergic rhinitis due to other allergic melva er J30.89 Active 70736041 Problem CKD (chronic kidney disease) stage 3, GFR 30-59 ml/min N18.3 Active 719091190 Problem Cerebrovascular accident (CVA) due to occlusion of small artery I63.81 Active 775672217 Problem 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 Acti ve 341431959 Problem 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 Activ e 048657619 Problem Chronic atrial fibrillation I48.20 Active 4267 15277 ALLERGIES Allergen (clinical drug ingredient) Drug/Non Drug Allergy do cumented on EMR Reaction Allergy Type Onset Date Status metformin Metformin HCl([facility] Code:[address]-68) anxiety Drug Chapito rgy Active Penicillin (For Allergies Use Only) Anaphylaxis Drug Aller gy Active lovastatin Lovastatin([facility] Code:[address]-48) irritablity Drug Allerg y Active duloxetine Cymbalta([facility] Code:[address]-21) Nausea/vomiting Drug Chapito rgy Active atorvastatin Atorvastatin Calcium([facility] Code:[address]-31) irr itability Drug Allergy Active rosuvastatin Crestor([facility] Code:[address]-66) irritability Drug Allerg y Active ENCOUNTERS from 1945 to 2020-04-20 Encounter Location Date Provider Diagnosis [facility] Wound Care [address] [place] [address] [facility] IMMUNIZATIONS No Information SOCIAL HISTORY Tobacco [...] Therapy evaluate and treat as directed 1-3X/w [place] Dx Gait instability as well as upper and lower extremity weakness for 42 days Jan, Active Metoprolol Tartrate 50 MG 1 tablet with food Orally Twice a day for 90 days Active PROCEDURES No Information RESULTS No Results [...] History CABG X 6, Aortic valve replacement- [facility] 02/2018 Surgical History CVA 2018 Hospitalization History Back surgery 2004 Hospitalization History Heart attack 2005 Hospitalization History CVA- [facility], [facility] 02/2018 Hospitalization History [facility]-CHF, Pneumonia 06/2018 Hospitalization History [facility]-Pneumonia 01/2019 Hospitalization History pneumonia 04/2019 Hospitalization History [facility]- Pneumonia, CHF 02/2020 Hospitalization History [facility]- Diarrhea, pneumonia 02/2020 Goals Section No Information Health Concerns No Information MEDICAL EQUIPMENT No Information MENTAL STATUS No Information FUNCTIONAL STATUS No Information ASSESSMENTS No Information PLAN OF TREATMENT Next Appt Details Provider Name:Martin Mcclure, 01:15:00 PM, [address] [place], [address], Provider Name:Martin Mcclure, 11:00:00 AM, [address] [place], [address], Provider Name:Magdaleno Reno, 10:00:00 AM, [address] [place] [address], [address], Insurance Providers Payer Name Payer Address Payer Phone Insured Name Patient Relati onship to Insured Coverage Start Date Coverage End Date MEDICARE Part A and B [address] [facility] [id number] MARTHA LOPEZ MEDICAID [employer] [address] [facility] [address] MARTHA LOPEZ
--- OUTSIDE RECORDS SUMMARY | 2020-04-27 13:10 | CCD ---
Author Author [facility] Organization [facility] Address Unknown Phone Unavailable Care Team Providers Care Car Storer Name Role Phone Magdaleno Reno Unavailable PROBLEMS Type Condition ICD9-CM Code [id number] Code Onset Dates Condition S tatus SNOMED Code Notes Problem Major depressive disorder, single episode, unspecified F32.9 Active 20496711 Problem Essential (primary) hypertension I10 Active 63300038 Problem Lumbar disc herniation with myelopathy M51.06 A ctive 348968391 Problem Type 2 diabetes mellitus without complications E11 .9 Active 853402380 Problem 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 Active 302832664 Problem Gait disturbance R26.9 Active 48815476 Problem Anxiety F41.9 Active 93898492 Problem Type 2 diabetes mellitus with diabetic chronic kidney disease E11.22 Active 275258929773 Problem Obstructive sleep apnea syndrome G47.33 Active 85916488 Problem Nonrheumatic aortic valve stenosis I35.0 Activ e 300332891 Problem S/P aortic valve replacement Z95.2 Active 123 8863902016 Problem Gastrointestinal tube present Z93.1 Active 44 7146549 Problem [facility] current use of 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 Z79.01 A ctive 186813483 Problem Coronary artery disease invo lving [place] coronary artery of [place] heart without angina pectoris I25.10 Active 523122649676 7 Problem Atherosclerosis of [place] ar teries of left leg with ulceration of other part of foot I70.245 Active 706516153369138 Problem Type 2 diabetes mellitus with foot ulcer E11.621 Active 555666889 Problem Chronic heart failure with preserved ejection fraction I50.32 Active 945698154 Problem Oropharyngeal dysphagia R13.12 Active 49385902 Problem Type 2 diabetes mellitus with other diabetic kid quita complication E11.29 Active 24201033 Problem 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 Active 206673526 Problem Non-seasonal allergic rhinitis due to other allergic melva er J30.89 Active 71767748 Problem CKD (chronic kidney disease) stage 3, GFR 30-59 ml/min N18.3 Active 218547814 Problem Cerebrovascular accident (CVA) due to occlusion of small artery I63.81 Active 663074170 Problem 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 Acti ve 356699874 Problem 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 Activ e 120918184 Problem Chronic atrial fibrillation I48.20 Active 4267 53304 ALLERGIES Allergen (clinical drug ingredient) Drug/Non Drug Allergy do cumented on EMR Reaction Allergy Type Onset Date Status metformin Metformin HCl([facility] Code:[address]-27) anxiety Drug Chapito rgy Active Penicillin (For Allergies Use Only) Anaphylaxis Drug Aller gy Active lovastatin Lovastatin([facility] Code:[address]-02) irritablity Drug Allerg y Active duloxetine Cymbalta([facility] Code:[address]-67) Nausea/vomiting Drug Chapito rgy Active atorvastatin Atorvastatin Calcium([facility] Code:[address]-70) irr itability Drug Allergy Active rosuvastatin Crestor([facility] Code:[address]-42) irritability Drug Allerg y Active ENCOUNTERS from 1945 to 2020-04-21 Encounter Location Date Provider Diagnosis [place] [place] [address] Apr Magdaleno Reno IMMUNIZATIONS No Information SOCIAL HISTORY Tobacco Use: [...] Therapy evaluate and treat as directed 1-3X/w [place] Dx Gait instability as well as upper and lower extremity weakness for 42 days Jan, 020 Active Torsemide 20 MG 1 tablet Orally Once a day for 90 day(s) Active PROCEDURES No Information RESULTS No Results REASON FOR VISIT order MEDICAL (GENERAL) HISTORY Type Description Date Medical [...] History CABG X 6, Aortic valve replacement- [facility] 02/2018 Surgical History CVA 2018 Hospitalization History Back surgery 2004 Hospitalization History Heart attack 2005 Hospitalization History CVA- [facility], [facility] 02/2018 Hospitalization History [facility], Pneumonia 06/2018 Hospitalization History [facility]Pneum[facility] 01/2019 Hospitalization History pneumonia 04/2019 Hospitalization History [facility]- Pneumonia, CHF 02/2020 Hospitalization History [facility]- Diarrhea, pneumonia 02/2020 Goals Section No Information Health Concerns No Information MEDICAL EQUIPMENT No Information MENTAL STATUS No Information FUNCTIONAL STATUS No Information ASSESSMENTS No Information PLAN OF TREATMENT Next Appt Details Provider Name:Martin Mcclure, 11:00:00 AM, [address] [place], [address], Provider Name:Magdaleno Reno, 10:00:00 AM, [place], [address], Insurance Providers Payer Name Payer Address Payer Phone Insured Name Patient Relati onship to Insured Coverage Start Date Coverage End Date MEDICARE Part A and B [address] [facility] [phone] MARTHA LOPEZ MEDICAID [facility] [employer] [address] [facility] [id number] MARTHA LOPEZ
--- OUTSIDE RECORDS SUMMARY | 2020-04-27 13:10 | CCD ---
Author Author [facility] Organization [facility] Address Unknown Phone Unavailable Care Team Providers Care Salesforce Trainer Name Role Phone Martin Mcclure Unavailable PROBLEMS Type Condition ICD9-CM Code ZTZ29-VG Code Onset Dates Condition S tatus SNOMED Code Notes Problem Major depressive disorder, single episode, unspecified F32.9 Active 72765119 Problem Essential (primary) hypertension I10 Active 50743471 Problem Lumbar disc herniation with myelopathy M51.06 A ctive 196758508 Problem Type 2 diabetes mellitus without complications E11 .9 Active 917875347 Problem 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 Active 546650852 Problem Gait disturbance R26.9 Active 04684787 Problem Anxiety F41.9 Active 39903197 Problem Type 2 diabetes mellitus with diabetic chronic kidney disease E11.22 Active 238885330184 Problem Obstructive sleep apnea syndrome G47.33 Active 62035735 Problem Nonrheumatic aortic valve stenosis I35.0 Activ e 866265340 Problem S/P aortic valve replacement Z95.2 Active 123 2923969122 Problem Gastrointestinal tube present Z93.1 Active 44 0971378 Problem manager terminal 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 of 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 Z79.01 A ctive 443264989 Problem Coronary artery disease invo lving [place] coronary artery of [place] heart without angina pectoris I25.10 Active 323236901041 7 Problem Atherosclerosis of [place] ar teries of left leg with ulceration of other part of foot I70.245 Active 625701199685860 Problem Type 2 diabetes mellitus with foot ulcer E11.621 Active 866896952 Problem Chronic heart failure with preserved ejection fraction I50.32 Active 189229319 Problem Oropharyngeal dysphagia R13.12 Active 24139829 Problem Type 2 diabetes mellitus with other diabetic kid quita complication E11.29 Active 89940986 Problem 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 Active 033312636 Problem Non-seasonal allergic rhinitis due to other allergic melva er J30.89 Active 56595383 Problem CKD (chronic kidney disease) stage 3, GFR 30-59 ml/min N18.3 Active 904485606 Problem Cerebrovascular accident (CVA) due to occlusion of small artery I63.81 Active 681988844 Problem 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 Acti ve 002059446 Problem 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 Activ e 926220222 Problem Chronic atrial fibrillation I48.20 Active 4267 15276 ALLERGIES Allergen (clinical drug ingredient) Drug/Non Drug Allergy do cumented on EMR Reaction Allergy Type Onset Date Status metformin Metformin HCl([facility] Code:[address]-48) anxiety Drug Chapito rgy Active Penicillin (For Allergies Use Only) Anaphylaxis Drug Aller gy Active lovastatin Lovastatin([facility] Code:[address]-69) irritablity Drug Allerg y Active duloxetine Cymbalta([facility] Code:[address]-73) Nausea/vomiting Drug Chapito rgy Active atorvastatin Atorvastatin Calcium([facility] Code:[address]-45) irr itability Drug Allergy Active rosuvastatin Crestor([facility] Code:[address]-52) irritability Drug Allerg y Active ENCOUNTERS from 1945 to 2020-04-21 Encounter Location Date Provider Diagnosis [facility] Wound Care [address] [place] [address] [facility] T14.8XXA ; Type 2 diabetes me llitus with foot ulcer E11.621 and Non-pressure chronic ulcer of other part of left foot with fat layer exposed L97.522 IMMUNIZATIONS No Information SOCIAL HISTORY Tobacco Use: [...] REASON FOR REFERRAL No Information VITAL SIGNS Weight 195 lbs Apr, Weight-kg per pt kg Apr, Height 5'9" in Apr, BMI 28.79 kg/m2 Apr, Heart Rate 66 /min Apr, Respiratory Rate 18 /min Apr, Temperature 96.8 degrees Fahrenheit Apr, Oximetry 96 Apr, Blood pressure systolic 161 mm Hg Apr, Blood pressure diastolic 87 mm Hg Apr, MEDICATIONS Medication SIG (Take, Route, Frequency, Duration) [...] Therapy evaluate and treat as directed 1-3X/w [place] Dx Gait instability as well as upper and lower extremity weakness for 42 days Jan, Active Torsemide 20 MG 1 tablet Orally Once a day for 90 day(s) Active PROCEDURES from 1945 to 2020-04-21 Procedure Date Ordered Result Body Site LIDOCAINE 4% CREAM TOPICAL 2020-04-14 N/A RESULTS No Results REASON FOR VISIT Bilateral foot wounds MEDICAL (GENERAL) HISTORY Type Description Date Medical [...] History CABG X 6, Aortic valve replacement- [facility] 02/2018 Surgical History CVA 2018 Hospitalization History Back surgery 2004 Hospitalization History Heart attack 2005 Hospitalization History CVA- [facility] 02/[address] [facility]CHF, Pneumonia 06/[address] [facility]-Pneum[facility] 01/2019 Hospitalization History pneumonia 04/[address] [facility]- Pneumonia, CHF 02/[address] [facility]- Diarrhea, pneumonia 02/2020 Goals Section No Information Health Concerns No Information MEDICAL EQUIPMENT No Information MENTAL STATUS No Information FUNCTIONAL STATUS No Information ASSESSMENTS Encounter Date Diagnosis Assessment Notes Treatment Notes Treatm ent Clinical Notes Apr, Open wound (ICD-10 - T14.8XXA) Apr, Type 2 diabetes mellitus with foot ulcer (ICD-10 - E11.621) Apr, 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 layer exposed (ICD-10 - L97.522) Apr, Other SANTLY LOT:[id number] EXP 02/26 PLAN OF TREATMENT Treatment Notes Test Name Order Date Lower Extremity Arterial US 2020-04-21 Next Appt Details 1 Week Reason: Provider Name:Martin Mcclure, 11:00:00 AM, [address], [place], [address], Provider Name:Magdaleno Reno, 10:00:00 AM, [address], [place], [address], Insurance Providers Payer Name Payer Address Payer Phone Insured Name Patient Relati onship to Insured Coverage Start Date Coverage End Date MEDICAID [employer] [address] [facility] [address] MARTHA LOPEZ MEDICARE Part A and B [address] [facility] [phone] MARTHA LOPEZ
--- OUTSIDE RECORDS SUMMARY | 2020-04-27 13:10 | CCD ---
Author Author [facility] Organization [facility] Address Unknown Phone Unavailable Care Team Providers Care Jeep Mechanic Name Role Phone Martin Mcclure Unavailable PROBLEMS Type Condition ICD9-CM Code IJY74-QA Code Onset Dates Condition S tatus SNOMED Code Notes Problem Major depressive disorder, single episode, unspecified F32.9 Active 93138189 Problem Essential (primary) hypertension I10 Active 02457266 Problem Lumbar disc herniation with myelopathy M51.06 A ctive 852958898 Problem Type 2 diabetes mellitus without complications E11 .9 Active 899609777 Problem 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 Active 618057642 Problem Gait disturbance R26.9 Active 35284851 Problem Anxiety F41.9 Active 07477908 Problem Type 2 diabetes mellitus with diabetic chronic kidney disease E11.22 Active 303138482113 Problem Obstructive sleep apnea syndrome G47.33 Active 88389462 Problem Nonrheumatic aortic valve stenosis I35.0 Activ e 426577401 Problem S/P aortic valve replacement Z95.2 Active 123 8073487634 Problem Gastrointestinal tube present Z93.1 Active 44 9828438 Problem 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 care 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 use of 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 Z79.01 A ctive 421682955 Problem Coronary artery disease invo lving [place] coronary artery of [place] heart without angina pectoris I25.10 Active 281762549842 7 Problem Atherosclerosis of [place] ar teries of left leg with ulceration of other part of foot I70.245 Active 549054147849206 Problem Type 2 diabetes mellitus with foot ulcer E11.621 Active 416821411 Problem Chronic heart failure with preserved ejection fraction I50.32 Active 919315511 Problem Oropharyngeal dysphagia R13.12 Active 81099655 Problem Type 2 diabetes mellitus with other diabetic kid quita complication E11.29 Active 20408699 Problem 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 Active 887374530 Problem Non-seasonal allergic rhinitis due to other allergic melva er J30.89 Active 08720753 Problem CKD (chronic kidney disease) stage 3, GFR 30-59 ml/min N18.3 Active 400744752 Problem Cerebrovascular accident (CVA) due to occlusion of small artery I63.81 Active 252213330 Problem 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 Acti ve 601542843 Problem 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 Activ e 395325961 Problem Chronic atrial fibrillation I48.20 Active 4267 90318 ALLERGIES Allergen (clinical drug ingredient) Drug/Non Drug Allergy do cumented on EMR Reaction Allergy Type Onset Date Status metformin Metformin HCl([facility] Code:[address]-84) anxiety Drug Chapito rgy Active Penicillin (For Allergies Use Only) Anaphylaxis Drug Aller gy Active lovastatin Lovastatin([facility] Code:[address]-18) irritablity Drug Allerg y Active duloxetine Cymbalta([facility] Code:[address]-80) Nausea/vomiting Drug Chapito rgy Active atorvastatin Atorvastatin Calcium([facility] Code:[address]-90) irr itability Drug Allergy Active rosuvastatin Crestor([facility] Code:[address]-94) irritability Drug Allerg y Active ENCOUNTERS from 1945 to 2020-04-16 Encounter Location Date Provider Diagnosis [facility] Wound Care [address] [place] [address] Apr [facility] IMMUNIZATIONS No Information SOCIAL HISTORY Tobacco Use: [...] Therapy evaluate and treat as directed 1-3X/w [place] Dx Gait instability as well as upper and lower extremity weakness for 42 days Jan, Active Metoprolol Tartrate 50 MG 1 tablet with food Orally Twice a day for 90 days Active PROCEDURES No Information RESULTS No Results REASON FOR VISIT Inform of U/S apt. MEDICAL (GENERAL) HISTORY Type Description Date Medical [...] History Heart attack 2005 Hospitalization History CVA- [facility], [facility] 02/2018 Hospitalization History [facility], Pneumonia 06/2018 Hospitalization History [facility] 01/2019 Hospitalization History pneumonia 04/2019 Hospitalization History [facility]- Pneumonia, CHF 02/2020 Hospitalization History [facility]- Diarrhea, pneumonia 02/2020 Goals Section No Information Health Concerns No Information MEDICAL EQUIPMENT No Information MENTAL STATUS No Information FUNCTIONAL STATUS No Information ASSESSMENTS No Information PLAN OF TREATMENT Next Appt Details Provider Name:Martin Mcclure, 01:15:00 PM, [address] [place], [address], Provider Name:Magdaleno Reno, 10:00:00 AM, [place], [address], Insurance Providers Payer Name Payer Address Payer Phone Insured Name Patient Relati onship to Insured Coverage Start Date Coverage End Date MEDICARE Part A and B [address] [facility] [phone] MARTHA LOPEZ MEDICAID [employer] [address] [facility] [address] MARTHA LOPEZ
--- OUTSIDE RECORDS SUMMARY | 2020-04-27 13:11 | CCD ---
Author Author [facility] Organization [facility] Address Unknown Phone Unavailable Care Team Providers Care Outboard Motorboat Rigger Name Role Phone Magdaleno Reno Unavailable PROBLEMS Type Condition ICD9-CM Code IDE51-UA Code Onset Dates Condition S tatus SNOMED Code Notes Problem Essential (primary) hypertension I10 Active 03277367 Problem Type 2 diabetes mellitus without complications E11 .9 Active 750459597 Problem Major depressive disorder, single episode, unspecified F32.9 Active 48813016 Problem Gait disturbance R26.9 Active 89440553 Problem [facility] current use of 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 Z79.01 A ctive 839659493 Problem Type 2 diabetes mellitus with diabetic chronic kidney disease E11.22 Active 126824228874 Problem CKD (chronic kidney disease) stage 3, GFR 30-59 ml/min N18.3 Active 310774870 Problem Nonrheumatic aortic valve stenosis I35.0 Activ e 276891281 Problem Anxiety F41.9 Active 28593641 Problem Gastrointestinal tube present Z93.1 Active 44 1614110 Problem Obstructive sleep apnea syndrome G47.33 Active 87997694 Problem Coronary artery disease invo lving [place] coronary artery of [place] heart without angina pectoris I25.10 Active 474661987174 7 Problem S/P aortic valve replacement Z95.2 Active 123 1076971489 Problem 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 Active 513261573 Problem Atherosclerosis of [place] ar teries of left leg with ulceration of other part of foot I70.245 Active 027289357244283 Problem Type 2 diabetes mellitus with foot ulcer E11.621 Active 479948885 Problem Chronic atrial fibrillation I48.20 Active 4267 41012 Problem Non-seasonal allergic rhinitis due to other allergic melva er J30.89 Active 23058340 Problem Oropharyngeal dysphagia R13.12 Active 41901059 Problem Lumbar disc herniation with myelopathy M51.06 A ctive 100128963 Problem Type 2 diabetes mellitus with other diabetic kid quita complication E11.29 Active 51035513 Problem Chronic heart failure with preserved ejection fraction I50.32 Active 030235116 Problem Cerebrovascular accident (CVA) due to occlusion of small artery I63.81 Active 934963807 Problem 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 Acti ve 168697549 Problem 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 Activ e 852413756 ALLERGIES Allergen (clinical drug ingredient) Drug/Non Drug Allergy do cumented on EMR Reaction Allergy Type Onset Date Status metformin Metformin HCl([facility] Code:[address]-60) anxiety Drug Chapito rgy Active Penicillin (For Allergies Use Only) Anaphylaxis Drug Aller gy Active lovastatin Lovastatin([facility] Code:[address]-29) irritablity Drug Allerg y Active duloxetine Cymbalta([facility] Code:[address]-99) Nausea/vomiting Drug Chapito rgy Active atorvastatin Atorvastatin Calcium([facility] Code:[address]-77) irr itability Drug Allergy Active rosuvastatin Crestor([facility] Code:[address]-64) irritability Drug Allerg y Active ENCOUNTERS from 1945 to 2020-03-31 Encounter Location Date Provider Diagnosis [address] [place] [address] Mar Magdaleno Reno IMMUNIZATIONS No Information SOCIAL HISTORY [...] Notes Start Da te End Date Status Vitamin D-3 1000 UNIT 2 capsules Orally Once a day Active Echinacea - as directed Orally Jan, Act rafal Physical Therapy evaluate and treat as directed 1-3X/w [place] Dx Gait instability as well as upper and lower extremity weakness for 42 days Jan, Active Torsemide 20 MG 1 tablet Orally Once a day for 90 day(s) Active Potassium 99 MG 1 tablet Orally Once a day Active Metoprolol Tartrate 50 MG 1 tablet with food Orally Twice a day for 90 days Active Walker - heavy duty wheeled walker with seat and hand brakes Dx R26 .9 Active Glucometer as directed Daily for 90 day(s) Active Lancets - as directed three times daily on insulin for 90 day(s) Active Blood Glucose Test - as directed In Vitro three t imes daily- pt on insulin for 90 day(s) Active Acetaminophen 500 MG 2 tablet as needed Orally ev alyse 6 hrs as needed for pain Not to exceed 6 tablets in 24 hr period Active Tramadol HCl 50 MG 1 tablet as needed Orally Up to QID MDD#4 for 7 da y(s) Not-Taking Splint Wrist Brace/Left-Right - b/l carpal tunnel Spli nts for both wrists for 30 Days Active Warfarin Sodium 4 MG 1/2 tab MONDAYS AND SATURDAY and full tab SUNDAYS/ TUESDAYS/WEDNESDAYS/ FRIDAYS AND SATURDAY Orally before bedtime Active Citalopram Hydrobromide 20 MG 1/2 tablet Orally at bedtime for 90 day (s) Active Coumadin 1 MG 1 tablet Orally Once a day as directed for 90 days Mar, Active Gabapentin 100 MG 1 capsule Orally Once a day for 30 day(s) Active GlipiZIDE 10 MG 1 tablet in the am, 1/2 tab in the evening Orally Twice daily for 90 day(s) Active Polyethylene Glycol - 17 gram orally at bedtime for constipation Active PROCEDURES No Information RESULTS No Results REASON FOR VISIT ORDER MEDICAL (GENERAL) HISTORY Type Description Date Medical [...] History CABG X 6, Aortic valve replacement- [facility] 02/2018 Surgical History CVA 2017 Hospitalization History Back surgery 2004 Hospitalization History Heart attack 2005 Hospitalization History CVA- [facility] 02/2018 Hospitalization History [facility]-CHF, Pneumonia 06/2018 Hospitalization History [facility]-Pneumonia 01/2019 Hospitalization History pneumonia 04/2019 Hospitalization History [facility]- Pneumonia, CHF 02/2020 Hospitalization History [facility]- Diarrhea, pneumonia 02/2020 Goals Section No Information Health Concerns No Information MEDICAL EQUIPMENT No Information MENTAL STATUS No Information FUNCTIONAL STATUS No Information ASSESSMENTS No Information PLAN OF TREATMENT Medication Medication Name Sig Start Date Stop Date Blood Glucose Test - as directed In Vitro three t imes daily- pt on insulin for 90 day(s) Gabapentin 100 MG 1 capsule Orally Once a day for 30 day(s) Lancets - as directed three times daily on insulin for 90 day(s) Glucometer as directed Daily for 90 day(s) Next Appt Details Provider Name:Magdaleno Reno, 10:30:00 AM, [place], [address], Provider Name:Magdaleno Reno 11:30:00 AM, [address] [place], [address], Insurance Providers Payer Name Payer Address Payer Phone Insured Name Patient Relati onship to Insured Coverage Start Date Coverage End Date MEDICARE Part A and B [address] [facility] [address] MARTHA LOPEZ MEDICAID [employer] [address] [facility] [id number] MARTHA LOPEZ
--- OUTSIDE RECORDS SUMMARY | 2020-04-27 13:11 | CCD ---
Author Author [facility] Organization [facility] Address Unknown Phone Unavailable Care Team Providers Care Wreath Maker Name Role Phone Magdaleno Reno Unavailable PROBLEMS Type Condition ICD9-CM Code SQG47-ZI Code Onset Dates Condition S tatus SNOMED Code Notes Problem Essential (primary) hypertension I10 Active 73741438 Problem Type 2 diabetes mellitus without complications E11 .9 Active 593160707 Problem Major depressive disorder, single episode, unspecified F32.9 Active 11475256 Problem Gait disturbance R26.9 Active 05870487 Problem [facility] current use of 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 Z79.01 A ctive 897263607 Problem Type 2 diabetes mellitus with diabetic chronic kidney disease E11.22 Active 406212013376 Problem CKD (chronic kidney disease) stage 3, GFR 30-59 ml/min N18.3 Active 022455940 Problem Nonrheumatic aortic valve stenosis I35.0 Activ e 314359635 Problem Anxiety F41.9 Active 03066291 Problem Gastrointestinal tube present Z93.1 Active 44 6451895 Problem Obstructive sleep apnea syndrome G47.33 Active 39404991 Problem Coronary artery disease invo lving [place] coronary artery of [place] heart without angina pectoris I25.10 Active 612689222625 7 Problem S/P aortic valve replacement Z95.2 Active 123 8396275211 Problem 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 Active 445067043 Problem Atherosclerosis of [place] ar teries of left leg with ulceration of other part of foot I70.245 Active 073283476938591 Problem Type 2 diabetes mellitus with foot ulcer E11.621 Active 279453394 Problem Chronic atrial fibrillation I48.20 Active 4267 26329 Problem Non-seasonal allergic rhinitis due to other allergic melva er J30.89 Active 92999271 Problem Oropharyngeal dysphagia R13.12 Active 22081048 Problem Lumbar disc herniation with myelopathy M51.06 A ctive 833579872 Problem Type 2 diabetes mellitus with other diabetic kid quita complication E11.29 Active 02215994 Problem Chronic heart failure with preserved ejection fraction I50.32 Active 598464226 Problem Cerebrovascular accident (CVA) due to occlusion of small artery I63.81 Active 074503910 Problem 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 Acti ve 031728663 Problem 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 Activ e 166246702 ALLERGIES Allergen (clinical drug ingredient) Drug/Non Drug Allergy do cumented on EMR Reaction Allergy Type Onset Date Status metformin Metformin HCl([facility] Code:[address]-27) anxiety Drug Chapito rgy Active Penicillin (For Allergies Use Only) Anaphylaxis Drug Aller gy Active lovastatin Lovastatin([facility] Code:[address]-08) irritablity Drug Allerg y Active duloxetine Cymbalta([facility] Code:[address]-23) Nausea/vomiting Drug Chapito rgy Active atorvastatin Atorvastatin Calcium([facility] Code:[address]-27) irr itability Drug Allergy Active rosuvastatin Crestor([facility] Code:[address]-01) irritability Drug Allerg y Active ENCOUNTERS from 1945 to 2020-04-11 Encounter Location Date Provider Diagnosis [address] [place] [address] 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 79.01 IMMUNIZATIONS [...] Notes Start Da te End Date Status Walker - heavy duty wheeled walker with seat and hand brakes Dx R26 .9 Active Splint Wrist Brace/Left-Right - b/l carpal tunnel Spli nts for both wrists for 30 Days Active Gabapentin 100 MG 1 capsule Orally Once a day for 30 day(s) Active Metoprolol Tartrate 50 MG 1 tablet with food Orally Twice a day for 90 days Active Physical Therapy evaluate and treat as directed 1-3X/w [place] Dx Gait instability as well as upper and lower extremity weakness for 42 days Jan, 020 Active Polyethylene Glycol - 17 gram orally at bedtime for constipation Active Tramadol HCl 50 MG 1 tablet as needed Orally Up to QID MDD#4 for 7 da y(s) Active Warfarin Sodium 4 MG 1/2 tab MONDAYS AND SATURDAY and full tab SUNDAYS/ TUESDAYS/WEDNESDAYS/ FRIDAYS AND SATURDAY Orally before bedtime Active Echinacea - as directed Orally Jan, Act rafal Potassium 99 MG 1 tablet Orally Once a day Active Acetaminophen 500 MG 2 tablet as needed Orally ev alyse 6 hrs as needed for pain Not to exceed 6 tablets in 24 hr period Active Glucometer as directed Daily for 90 day(s) Active Citalopram Hydrobromide 20 MG 1/2 tablet Orally at bedtime for 90 day (s) Active Blood Glucose Test - as directed In Vitro three t imes daily- pt on insulin for 90 day(s) Active Coumadin 1 MG 1 tablet Orally Once a day as directed for 90 days Mar, Active Torsemide 20 MG 1 tablet Orally Once a day for 90 day(s) Active Vitamin D-3 1000 UNIT 2 capsules Orally Once a day Active Lancets - as directed three times daily on insulin for 90 day(s) Active GlipiZIDE 10 MG 1 tablet in the am, 1/2 tab in the evening Orally Twice daily for 90 day(s) Active PROCEDURES No Information RESULTS Component Value Reference Range PT-INR Reviewed date:04/07/2020 08:17:53 Interpretation: Performing Lab:[facility] [place] [address] INR 2.8 Verified Patient's Name and Current Dose 1 2mg M/TH 4mgROW Current Dose 2 Tab Strength Indication for Anticoagulation CABG/CVA Ecchymosis or Bleeding Noted INR Range 2-3 Prothrombin Time/INR Protime Hold for Day(s) Education Given (Date / Initials) New Dose 1 no change New Dose 2 Next PT Check 1 week Comments for PT-INR aware REASON FOR VISIT INR MEDICAL (GENERAL) HISTORY Type Description Date [...] History CABG X 6, Aortic valve replacement- [facility] 02/2018 Surgical History CVA 2018 Hospitalization History Back surgery 2004 Hospitalization History Heart attack 2005 Hospitalization History [facility] 02/2018 Hospitalization History [facility]CHF, Pneumonia 06/2018 Hospitalization History [facility] 01/2019 Hospitalization History pneumonia 04/2019 Hospitalization History [facility]- Pneumonia, CHF 02/2020 Hospitalization History [facility]- Diarrhea, pneumonia 02/2020 Goals Section No Information Health Concerns No Information MEDICAL EQUIPMENT No Information MENTAL STATUS No Information FUNCTIONAL STATUS No Information ASSESSMENTS Encounter Date Diagnosis Assessment Notes Treatment Notes Treatm ent Clinical Notes 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, 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 (ICD-10 - Z79.01) PLAN OF TREATMENT Medication Medication Name Sig Start Date Stop Date Tramadol HCl 50 MG 1 tablet as needed Orally Up to QID MDD#4 for 7 day(s) Next Appt Details Provider Name:Magdaleno Reno, 07:15:00 AM, [place], [address], Provider Name:Martin Mcclure, 01:00:00 PM, [address] [place], [address], Provider Name:Magdaleno Reno, 10:00:00 AM, [address] [place], [address], Insurance Providers Payer Name Payer Address Payer Phone Insured Name Patient Relati onship to Insured Coverage Start Date Coverage End Date MEDICARE Part A and B [address] [facility] [id number] MARTHA LOPEZ MEDICAID [employer] [address] [facility] [address] MARTHA LOPEZ self
--- OUTSIDE RECORDS SUMMARY | 2020-04-27 13:11 | CCD ---
Author Author [facility] Organization [facility] Address Unknown Phone Unavailable Care Team Providers Care Search Engine Optimization Manager Name Role Phone Magdaleno Reno Unavailable PROBLEMS Type Condition ICD9-CM Code GQS78-SS Code Onset Dates Condition S tatus SNOMED Code Notes Problem Essential (primary) hypertension I10 Active 19652805 Problem Type 2 diabetes mellitus without complications E11 .9 Active 351709920 Problem Major depressive disorder, single episode, unspecified F32.9 Active 32406186 Problem Gait disturbance R26.9 Active 79147136 Problem longterm current use of 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 Z79.01 A ctive 702526325 Problem Type 2 diabetes mellitus with diabetic chronic kidney disease E11.22 Active 068868996218 Problem CKD (chronic kidney disease) stage 3, GFR 30-59 ml/min N18.3 Active 429079715 Problem Nonrheumatic aortic valve stenosis I35.0 Activ e 077442500 Problem Anxiety F41.9 Active 21490695 Problem Gastrointestinal tube present Z93.1 Active 44 6181300 Problem Obstructive sleep apnea syndrome G47.33 Active 29155279 Problem Coronary artery disease invo lving [place] coronary artery of [place] heart without angina pectoris I25.10 Active 123218632999 7 Problem S/P aortic valve replacement Z95.2 Active 123 4519003231 Problem 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 Active 525646570 Problem Atherosclerosis of [place] ar teries of left leg with ulceration of other part of foot I70.245 Active 902431011201933 Problem Type 2 diabetes mellitus with foot ulcer E11.621 Active 407216097 Problem Chronic atrial fibrillation I48.20 Active 4267 54956 Problem Non-seasonal allergic rhinitis due to other allergic melva er J30.89 Active 01288147 Problem Oropharyngeal dysphagia R13.12 Active 92699520 Problem Lumbar disc herniation with myelopathy M51.06 A ctive 216080970 Problem Type 2 diabetes mellitus with other diabetic kid quita complication E11.29 Active 03115618 Problem Chronic heart failure with preserved ejection fraction I50.32 Active 674463750 Problem Cerebrovascular accident (CVA) due to occlusion of small artery I63.81 Active 533877708 Problem 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 Acti ve 271912209 Problem 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 Activ e 971450872 ALLERGIES Allergen (clinical drug ingredient) Drug/Non Drug Allergy do cumented on EMR Reaction Allergy Type Onset Date Status metformin Metformin HCl([facility] Code:[address]-43) anxiety Drug Chapito rgy Active Penicillin (For Allergies Use Only) Anaphylaxis Drug Aller gy Active lovastatin Lovastatin([facility] Code:[address]-44) irritablity Drug Allerg y Active duloxetine Cymbalta([facility] Code:[address]-36) Nausea/vomiting Drug Chapito rgy Active atorvastatin Atorvastatin Calcium([facility] Code:[address]-85) irr itability Drug Allergy Active rosuvastatin Crestor([facility] Code:[address]-00) irritability Drug Allerg y Active ENCOUNTERS from 1945 to 2020-03-28 Encounter Location Date Provider Diagnosis [address] [address] [place] [address] 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 79.01 IMMUNIZATIONS [...] Therapy evaluate and treat as directed 1-3X/w [place] Dx Gait instability as well as upper [...] for constipation Active PROCEDURES No Information RESULTS Component Value Reference Range PT-INR Reviewed date:03/24/2020 10:44:01 Interpretation: Performing Lab:[facility] [place] [address] INR 2.9 Verified Patient's Name and Current Dose 1 2MG M/TH 4MG ROW Current Dose 2 Tab Strength Indication for Anticoagulation CABG/CVA Ecchymosis or Bleeding Noted INR Range 2-3 Prothrombin Time/INR Protime Hold for Day(s) Education Given (Date / Initials) New Dose 1 no changes New Dose 2 Next PT Check 1 [...] History CABG X 6, Aortic valve replacement- [facility] 02/2018 Surgical History CVA 2018 Hospitalization History Back surgery 2005 Hospitalization History Heart attack 2005 Hospitalization History CVA- [facility] 02/2018 Hospitalization History [facility]CHF, Pneumonia 06/2018 Hospitalization History [facility] 01/2019 Hospitalization History pneumonia 04/2019 Hospitalization History [facility]- Pneumonia, CHF 02/2020 Hospitalization History [facility]- Diarrhea, pneumonia 02/2020 Goals Section No Information Health Concerns No Information MEDICAL EQUIPMENT No Information MENTAL STATUS No Information FUNCTIONAL STATUS No Information ASSESSMENTS Encounter Date Diagnosis Assessment Notes Treatment Notes Treatm ent Clinical Notes Mar, longterm current use of 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 (ICD-10 - Z79.01) [...] 90 day(s) Next Appt Details Provider Name:Magdaleno Wandy Reno, 10:30:00 AM, [address] [place], [address], Insurance Providers Payer Name Payer Address Payer Phone Insured Name Patient Relati onship to Insured Coverage Start Date Coverage End Date MEDICAID [employer] [address] [facility] [id number] MARTHA LOPEZ MEDICARE Part A and B [address] [facility] [phone] MARTHA LOPEZ self
--- OUTSIDE RECORDS SUMMARY | 2020-04-27 13:11 | CCD ---
Author Author [facility] Organization [facility] Address Unknown Phone Unavailable Care Team Providers Care Payroll Assistant Name Role Phone Magdaleno Reno Unavailable PROBLEMS Type Condition ICD9-CM Code [id number] Code Onset Dates Condition S tatus SNOMED Code Notes Problem Essential (primary) hypertension I10 Active 80663734 Problem Type 2 diabetes mellitus without complications E11 .9 Active 791586779 Problem Major depressive disorder, single episode, unspecified F32.9 Active 72187167 Problem Gait disturbance R26.9 Active 35946037 Problem USP current use of 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 Z79.01 A ctive 008467647 Problem Type 2 diabetes mellitus with diabetic chronic kidney disease E11.22 Active 720523248049 Problem CKD (chronic kidney disease) stage 3, GFR 30-59 ml/min N18.3 Active 078803239 Problem Nonrheumatic aortic valve stenosis I35.0 Activ e 424325582 Problem Anxiety F41.9 Active 62716116 Problem Gastrointestinal tube present Z93.1 Active 44 8983849 Problem Obstructive sleep apnea syndrome G47.33 Active 09480867 Problem Coronary artery disease invo lving [place] coronary artery of [place] heart without angina pectoris I25.10 Active 092826082270 7 Problem S/P aortic valve replacement Z95.2 Active 123 9026712115 Problem 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 Active 072827473 Problem Atherosclerosis of [place] ar teries of left leg with ulceration of other part of foot I70.245 Active 629874667220431 Problem Type 2 diabetes mellitus with foot ulcer E11.621 Active 505665598 Problem Chronic atrial fibrillation I48.20 Active 4267 05586 Problem Non-seasonal allergic rhinitis due to other allergic melva er J30.89 Active 32934874 Problem Oropharyngeal dysphagia R13.12 Active 95154333 Problem Lumbar disc herniation with myelopathy M51.06 A ctive 499431848 Problem Type 2 diabetes mellitus with other diabetic kid quita complication E11.29 Active 20732822 Problem Chronic heart failure with preserved ejection fraction I50.32 Active 933002829 Problem Cerebrovascular accident (CVA) due to occlusion of small artery I63.81 Active 167056972 Problem 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 Acti ve 691250072 Problem 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 Activ e 610892301 ALLERGIES Allergen (clinical drug ingredient) Drug/Non Drug Allergy do cumented on EMR Reaction Allergy Type Onset Date Status metformin Metformin HCl([facility] Code:[address]-60) anxiety Drug Chapito rgy Active Penicillin (For Allergies Use Only) Anaphylaxis Drug Aller gy Active lovastatin Lovastatin(ND Code:[address]-38) irritablity Drug Allerg y Active duloxetine Cymbalta([facility] Code:[address]-58) Nausea/vomiting Drug Chapito rgy Active atorvastatin Atorvastatin Calcium([facility] Code:[address]-73) irr itability Drug Allergy Active rosuvastatin Crestor([facility] Code:[address]-02) irritability Drug Allerg y Active ENCOUNTERS from 1945 to 2020-04-05 Encounter Location Date Provider Diagnosis [address] [place] [address] Mar Magdaleno Huizenga Wound of right foot S91.301A IMMUNIZATIONS No Information SOCIAL HISTORY Tobacco Use: [...] Therapy evaluate and treat as directed 1-3X/w [place] Dx Gait instability as well as upper and lower extremity weakness for 42 days Jan, Active Polyethylene Glycol - 17 gram orally [...] Information RESULTS No Results REASON FOR VISIT lab results MEDICAL (GENERAL) HISTORY Type Description Date Medical [...] History CABG X 6, Aortic valve replacement- [facility] 02/2018 Surgical History CVA 2018 Hospitalization History Back surgery 2004 Hospitalization History Heart attack 2005 Hospitalization History CVA- [facility], [facility] 02/2018 Hospitalization History [facility]-CHF, Pneumonia 06/2018 Hospitalization History [facility]-Pneumonia 01/2019 Hospitalization History pneumonia 04/2019 Hospitalization History [facility]- Pneumonia, CHF 02/2020 Hospitalization History [facility]- Diarrhea, pneumonia 02/2020 Goals Section No Information Health Concerns No Information MEDICAL EQUIPMENT No Information MENTAL STATUS No Information FUNCTIONAL STATUS No Information ASSESSMENTS Encounter Date Diagnosis Assessment Notes Treatment Notes Treatm ent Clinical Notes Mar, Wound of right foot (ICD-10 - S91.301A) PLAN OF TREATMENT Medication Medication Name Sig Start Date Stop Date Tramadol HCl 50 MG 1 tablet as needed Orally Up to QID MDD#4 for 7 day(s) Next Appt Details Provider Name:Magdaleno Reno, 11:30:00 AM, [address] [place], [address], Provider Name:Martin Mcclure, 01:00:00 PM, [address] [place], [address], Provider Name:Magdaleno Reno, 10:00:00 AM, [address] [place], [address], Insurance Providers Payer Name Payer Address Payer Phone Insured Name Patient Relati onship to Insured Coverage Start Date Coverage End Date MEDICAID H[employer] MOBILITY [address] [facility] [address] MARTHA LOPEZ MEDICARE Part A and B [address] [facility] [phone] MARTHA LOPEZ
--- OUTSIDE RECORDS SUMMARY | 2020-04-27 13:11 | CCD ---
Author Author [facility] Organization [facility] Address Unknown Phone Unavailable Care Team Providers Care Strapping Machine Operator Name Role Phone Magdaleno Reno Unavailable PROBLEMS Type Condition ICD9-CM Code [id number] Code Onset Dates Condition S tatus SNOMED Code Notes Problem Essential (primary) hypertension I10 Active 36575745 Problem Type 2 diabetes mellitus without complications E11 .9 Active 686319455 Problem Major depressive disorder, single episode, unspecified F32.9 Active 21703517 Problem Gait disturbance R26.9 Active 48884505 Problem [facility] current use of 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 Z79.01 A ctive 987688731 Problem Type 2 diabetes mellitus with diabetic chronic kidney disease E11.22 Active 588361152758 Problem CKD (chronic kidney disease) stage 3, GFR 30-59 ml/min N18.3 Active 258099891 Problem Nonrheumatic aortic valve stenosis I35.0 Activ e 730990606 Problem Anxiety F41.9 Active 40950546 Problem Gastrointestinal tube present Z93.1 Active 44 9271778 Problem Obstructive sleep apnea syndrome G47.33 Active 24052201 Problem Coronary artery disease invo lving [place] coronary artery of [place] heart without angina pectoris I25.10 Active 475856768003 7 Problem S/P aortic valve replacement Z95.2 Active 123 0538561080 Problem 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 Active 680478106 Problem Atherosclerosis of [place] ar teries of left leg with ulceration of other part of foot I70.245 Active 560547320933095 Problem Type 2 diabetes mellitus with foot ulcer E11.621 Active 797292035 Problem Chronic atrial fibrillation I48.20 Active 4267 89112 Problem Non-seasonal allergic rhinitis due to other allergic melva er J30.89 Active 53916985 Problem Oropharyngeal dysphagia R13.12 Active 37291633 Problem Lumbar disc herniation with myelopathy M51.06 A ctive 908360952 Problem Type 2 diabetes mellitus with other diabetic kid quita complication E11.29 Active 86249836 Problem Chronic heart failure with preserved ejection fraction I50.32 Active 040199920 Problem Cerebrovascular accident (CVA) due to occlusion of small artery I63.81 Active 601345610 Problem 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 Acti ve 430997802 Problem 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 Activ e 054122146 ALLERGIES Allergen (clinical drug ingredient) Drug/Non Drug Allergy do cumented on EMR Reaction Allergy Type Onset Date Status metformin Metformin HCl([facility] Code:[address]-04) anxiety Drug Chapito rgy Active Penicillin (For Allergies Use Only) Anaphylaxis Drug Aller gy Active lovastatin Lovastatin(ND Code:[address]-67) irritablity Drug Allerg y Active duloxetine Cymbalta([facility] Code:[address]-79) Nausea/vomiting Drug Chapito rgy Active atorvastatin Atorvastatin Calcium([facility] Code:[address]-38) irr itability Drug Allergy Active rosuvastatin Crestor([facility] Code:[address]-77) irritability Drug Allerg y Active ENCOUNTERS from 1945 to 2020-03-23 Encounter Location Date Provider Diagnosis [address] [address] [place] [address] 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 IMMUNIZATIONS [...] Therapy evaluate and treat as directed 1-3X/w [place] Dx Gait instability as well as upper [...] RESULTS Component Value Reference Range PT-INR Reviewed date:03/18/2020 13:19:57 Interpretation: Performing Lab:[facility] [place] [address] INR 3.3 Verified Patient's Name and Current Dose 1 [...] History CABG X 6, Aortic valve replacement- [facility] 02/2018 Surgical History CVA 2018 Hospitalization History Back surgery 2005 Hospitalization History Heart attack 2005 Hospitalization History CVA- [facility] 02/2018 Hospitalization History [facility]-CHF, Pneumonia 06/2018 Hospitalization History [facility]-Pneumonia 01/2019 Hospitalization History pneumonia 04/2019 Hospitalization History [facility]- Pneumonia, CHF 02/2020 Hospitalization History [facility]- Diarrhea, pneumonia 02/2020 Goals Section No Information Health Concerns No Information MEDICAL EQUIPMENT No Information MENTAL STATUS No Information FUNCTIONAL STATUS No Information ASSESSMENTS Encounter Date Diagnosis Assessment Notes Treatment Notes Treatm ent Clinical Notes Mar, [facility]CI current use of 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 (ICD-10 - Z79.01) [...] Provider Name:Magdaleno Wandy Reno, 10:30:00 AM, [address] [place], [address], Insurance Providers Payer Name Payer Address Payer Phone Insured Name Patient Relati onship to Insured Coverage Start Date Coverage End Date MEDICARE Part A and B [address] [facility] [phone] MARTHA LOPEZ MEDICAID [employer] [address] [facility] [id number] MARTHA LOPEZ
--- OUTSIDE RECORDS SUMMARY | 2020-04-27 13:11 | CCD | Continuity of Care Document ---
Author Author Newton DURANT M.D. Organization Unknown Address [address] [place] [address] Phone [phone] Care Team Providers Care Account Manager [employer] Name Role Phone Magdaleno Reno D.O. AUTM [phone] Problems Active Problems Provider Date Senile dementia of the [place] body type Cj Durant M.D. Onset: 12/17/2019 Social History Type Date Description Comments Sex Unknown Tobacco Use Start: Unknown Patient has never smoked Allergies, Adverse Reactions, Alerts Active Allergies Reaction Severity Comments Date Penicillin V 12/17/2019 Statins 12/17/2019 Medications Active Medications SIG Qnty Indications Ordering Provide r Date Warfarin Sodium 4mg Tablets Cj Durant M.D. Immunizations Description No Information Available Vital Signs Date Vital Result Comment 03/24/2020 2:37pm Respiratory Rate 12 /min Height 70 inches 5'10" Weight 187.00 lb BMI (Body Mass Index) 26.8 kg/m2 [place] Body Weight 166 lb 12/17/2019 10:39am Respiratory Rate 12 /min Height 70 inches 5'10" Weight 187.00 lb BMI (Body Mass Index) 26.8 kg/m2 [place] Body Weight 166 lb Results Test Acquired Date Facility Test Result H/L Range Note FT4&TSH Panel 12/21/2019 [facility] Thyroid Stimulating Hormone 2.670 uIU/ML Normal 0.358-3.740 Free T4 0.77 ng/dL Normal 0.76-1.46 Vitamin B12 & Folate 12/21/2019 [facility] Vitamin B12 Level 931 pg/mL Normal 1 Folate 6.0 NG/ML Normal 2 Laboratory test finding 12/21/2019 [facility] Erythrocyte Sedimentation Rate 66 mm/hr High 0-20 Vitamin E Level 12/21/2019 [facility] Vitamin E(Alpha Tocopherol) 12.4 mg/L Normal 9.0-29.0 Vitamin E(Gamma Tocopherol) 1.5 mg/L Normal 0.5-4.9 3 Laboratory test finding 12/21/2019 [facility] Vitamin B1 Level Whole Blood 107.2 nmol/L Normal 66.5-200.0 4 Vitamin B6,Pyridoxal Phosphate 14.5 ug/L Normal 5.3-46.7 5 Antinuclear Antibodies 12/21/2019 [facility] Antinuclear Antibodies Direct Negative Normal Negative 6 1 VITAMIN B12 NORMAL RANGE NORMAL 247 - 911 PG/ML INDETERMINATE 211 - 246 PG/ML DEFICIENT LESS THAN 211 PG/ML 2 FOLATE NORMAL RANGE NORMAL GREATER THAN 5.4 NG/ML INDETERMINATE 3.4-5.4 NG/ML DEFICIENT LESS THAN 3.4 NG/ML 3 Reference intervals for alph a and gamma-tocopherol determined from National Health and Nutrition Examination Survey, 7971-9243. Individuals with alpha-tocopherol levels less than 5.0 mg/L are considered vitamin E deficient. 4 Specimen Comment: Test(s) 07 0141-Vitamin E(Alpha Tocopherol); 591452- Specimen Comment: Vitamin E(Gamma Tocopherol); 699040-Iksiqrv B6; 582991- Specimen Comment: Vit. B1, Whole Blood Specimen Comment: was developed and its performance characteristics Specimen Comment: determined by [facility]. It has not been cleared or approved Specimen Comment: by the Food and Drug Administration. 5 Specimen Comment: Test(s) 07 0141-Vitamin E(Alpha Tocopherol); 354856- Specimen Comment: Vitamin E(Gamma Tocopherol); 121405-Ydcvrpn B6; 364496- Specimen Comment: Vit. B1, Whole Blood Specimen Comment: was developed and its performance characteristics Specimen Comment: determined by [facility]. It has not been cleared or approved Specimen Comment: by the Food and Drug Administration. 6 Performed at: [facility] [address] [id number] [place] Operator: Trisha Bowers MD, Phone: [phone] Performed at: [facility] [id number] [place] Operator: Isabel Moralez MD, Phone: [phone] Procedures Date Code Description Status 01/26/2020 63572 EEG Recording Awake & Asleep Com pleted 01/26/2020 70506 EEG Recording Awake & Asleep Com pleted Medical Devices Description No Information Available Encounters Type Date Location Provider Dx Diagnosis Office Visit 12/17/2019 10:00a Main office - [place] Cj jordan M.D. G31.83 Dementia with Lewy bodies G20 Parkinson's disease R26.81 Unsteadiness on feet I73.9 Peripheral vascular disease, unspecified Assessments Date Code Description Provider 03/24/2020 R26.81 Unsteadiness on feet Cj dorman M.D. 03/24/2020 G20 Parkinson's disease Cj jordan M.D. 03/24/2020 G31.83 Dementia with Lewy bodies Cj Durant M.D. 01/26/2020 R41.82 Altered mental status, unspecifi ed Lucille Luis Malave 01/26/2020 R41.82 Altered mental status, unspecifi ed EEG 12/17/2019 G31.83 Dementia with Lewy bodies Dianna Nagel M.D. 12/17/2019 G31.83 Dementia with Lewy bodies Cj Durant M.D. 12/17/2019 G20 Parkinson's disease Dianna Nagel M.D. 12/17/2019 G20 Parkinson's disease Cj jordan M.D. 12/17/2019 R26.81 Unsteadiness on feet Dianna Nagel M.D. 12/17/2019 R26.81 Unsteadiness on feet Cj dorman M.D. 12/17/2019 I73.9 Peripheral vascular disease, uns pecified Dianna Nagel M.D. 12/17/2019 I73.9 Peripheral vascular disease, uns pecified Cj Durant M.D. Plan of Treatment No Information Available Functional Status Description No Information Available Mental Status Description No Information Available Referrals Refer to Reason for Referral Status Appt Dianna Grayson M.D. Created [facility] [address] [place] [address] [phone]
--- OUTSIDE RECORDS SUMMARY | 2020-04-27 13:11 | CCD ---
Author Author [facility] Organization [facility] Address Unknown Phone Unavailable Care Team Providers Care Customer Program Specialist Name Role Phone Magdaleno Reno Unavailable PROBLEMS Type Condition ICD9-CM Code [id number] Code Onset Dates Condition S tatus SNOMED Code Notes Problem Essential (primary) hypertension I10 Active 94020827 Problem Type 2 diabetes mellitus without complications E11 .9 Active 184191498 Problem Major depressive disorder, single episode, unspecified F32.9 Active 40369437 Problem Gait disturbance R26.9 Active 61432805 Problem correction current use of 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 Z79.01 A ctive 802055402 Problem Type 2 diabetes mellitus with diabetic chronic kidney disease E11.22 Active 238705885813 Problem CKD (chronic kidney disease) stage 3, GFR 30-59 ml/min N18.3 Active 086651920 Problem Nonrheumatic aortic valve stenosis I35.0 Activ e 440483958 Problem Anxiety F41.9 Active 47392057 Problem Gastrointestinal tube present Z93.1 Active 44 4947254 Problem Obstructive sleep apnea syndrome G47.33 Active 45531512 Problem Coronary artery disease invo lving [place] coronary artery of [place] heart without angina pectoris I25.10 Active 068838367521 7 Problem S/P aortic valve replacement Z95.2 Active 123 4030165064 Problem 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 Active 369496315 Problem Atherosclerosis of [place] ar teries of left leg with ulceration of other part of foot I70.245 Active 156313859195057 Problem Type 2 diabetes mellitus with foot ulcer E11.621 Active 198675763 Problem Chronic atrial fibrillation I48.20 Active 4267 35331 Problem Non-seasonal allergic rhinitis due to other allergic melva er J30.89 Active 37211920 Problem Oropharyngeal dysphagia R13.12 Active 41663018 Problem Lumbar disc herniation with myelopathy M51.06 A ctive 990341127 Problem Type 2 diabetes mellitus with other diabetic kid quita complication E11.29 Active 80120342 Problem Chronic heart failure with preserved ejection fraction I50.32 Active 102986971 Problem Cerebrovascular accident (CVA) due to occlusion of small artery I63.81 Active 513269908 Problem 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 Acti ve 772321937 Problem 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 Activ e 103212688 ALLERGIES Allergen (clinical drug ingredient) Drug/Non Drug Allergy do cumented on EMR Reaction Allergy Type Onset Date Status metformin Metformin HCl([facility] Code:[address]-02) anxiety Drug Chapito rgy Active Penicillin (For Allergies Use Only) Anaphylaxis Drug Aller gy Active lovastatin Lovastatin([facility] Code:[address]-55) irritablity Drug Allerg y Active duloxetine Cymbalta([facility] Code:[address]-06) Nausea/vomiting Drug Chapito rgy Active atorvastatin Atorvastatin Calcium([facility] Code:[address]-20) irr itability Drug Allergy Active rosuvastatin Crestor([facility] Code:[address]-19) irritability Drug Allerg y Active ENCOUNTERS from 1945 to 2020-03-17 Encounter Location Date Provider Diagnosis [address] [address] [place] [address] Mar Magdaleno Reno IMMUNIZATIONS No Information SOCIAL [...] Therapy evaluate and treat as directed 1-3X/w [place] Dx Gait instability as well as upper [...] Information RESULTS No Results REASON FOR VISIT speak alfonso jefferson MEDICAL (GENERAL) HISTORY Type Description Date Medical [...] History CABG X 6, Aortic valve replacement- [facility] 02/2018 Surgical History CVA 2017 Hospitalization History Back surgery 2004 Hospitalization History Heart attack 2005 Hospitalization History CVA- [facility], [facility] 02/2018 Hospitalization History [facility]-CHF, Pneumonia 06/2018 Hospitalization History [facility]-Pneumonia 01/2019 Hospitalization History pneumonia 04/2019 Hospitalization History [facility]- Pneumonia, CHF 02/2020 Hospitalization History [facility]- Diarrhea, pneumonia 02/2020 Goals Section No [...] Appt Details Provider Name:Magdaleno Reno, 10:30:00 AM, [address] [place], [address], Insurance Providers Payer Name Payer Address Payer Phone Insured Name Patient Relati onship to Insured Coverage Start Date Coverage End Date MEDICARE Part A and B [address] [facility] [id number] MARTHA LOPEZ MEDICAID [employer] [address] [facility] [address] MARTHA LOPEZ
--- OUTSIDE RECORDS SUMMARY | 2020-04-27 13:11 | CCD ---
Author Author [facility] Organization [facility] Address Unknown Phone Unavailable Care Team Providers Care Local Az Truck Driver Name Role Phone Magdaleno Reno Unavailable PROBLEMS Type Condition ICD9-CM Code [id number] Code Onset Dates Condition S tatus SNOMED Code Notes Problem Essential (primary) hypertension I10 Active 84227829 Problem Type 2 diabetes mellitus without complications E11 .9 Active 981001255 Problem Major depressive disorder, single episode, unspecified F32.9 Active 64975068 Problem Gait disturbance R26.9 Active 15005369 Problem longterm current use of 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 Z79.01 A ctive 597959668 Problem Type 2 diabetes mellitus with diabetic chronic kidney disease E11.22 Active 094153972920 Problem CKD (chronic kidney disease) stage 3, GFR 30-59 ml/min N18.3 Active 327639260 Problem Nonrheumatic aortic valve stenosis I35.0 Activ e 737617947 Problem Anxiety F41.9 Active 05154878 Problem Gastrointestinal tube present Z93.1 Active 44 2751788 Problem Obstructive sleep apnea syndrome G47.33 Active 70540237 Problem Coronary artery disease invo lving [place] coronary artery of [place] heart without angina pectoris I25.10 Active 735284164947 7 Problem S/P aortic valve replacement Z95.2 Active 123 5538323742 Problem 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 Active 278265846 Problem Atherosclerosis of [place] ar teries of left leg with ulceration of other part of foot I70.245 Active 248417306027453 Problem Type 2 diabetes mellitus with foot ulcer E11.621 Active 579069812 Problem Chronic atrial fibrillation I48.20 Active 4267 88924 Problem Non-seasonal allergic rhinitis due to other allergic melva er J30.89 Active 23935132 Problem Oropharyngeal dysphagia R13.12 Active 53997484 Problem Lumbar disc herniation with myelopathy M51.06 A ctive 546356862 Problem Type 2 diabetes mellitus with other diabetic kid quita complication E11.29 Active 04808107 Problem Chronic heart failure with preserved ejection fraction I50.32 Active 123702838 Problem Cerebrovascular accident (CVA) due to occlusion of small artery I63.81 Active 087920945 Problem 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 Acti ve 714972725 Problem 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 Activ e 523513135 ALLERGIES Allergen (clinical drug ingredient) Drug/Non Drug Allergy do cumented on EMR Reaction Allergy Type Onset Date Status metformin Metformin HCl([facility] Code:[address]-89) anxiety Drug Chapito rgy Active Penicillin (For Allergies Use Only) Anaphylaxis Drug Aller gy Active lovastatin Lovastatin(ND Code:[address]-51) irritablity Drug Allerg y Active duloxetine Cymbalta([facility] Code:[address]-44) Nausea/vomiting Drug Chapito rgy Active atorvastatin Atorvastatin Calcium([facility] Code:[address]-81) irr itability Drug Allergy Active rosuvastatin Crestor([facility] Code:[address]-06) irritability Drug Allerg y Active ENCOUNTERS from 1945 to 2020-04-05 Encounter Location Date Provider Diagnosis [address] [address] [place] [address] Mar 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 Z 79.01 IMMUNIZATIONS [...] Therapy evaluate and treat as directed 1-3X/w ute Dx Gait instability as well as upper [...] RESULTS Component Value Reference Range PT-INR Reviewed date:03/31/2020 08:52:39 Interpretation: Performing Lab:[facility], [place] [address] INR 3.1 Verified Patient's Name and Current Dose 1 2MG M/TH 4MG ROW Current Dose 2 Tab Strength Indication for Anticoagulation CABG/CVA Ecchymosis or Bleeding Noted INR Range Prothrombin Time/INR Protime Hold for Day(s) Education [...] History CABG X 6, Aortic valve replacement- [facility] 02/2018 Surgical History CVA 2018 Hospitalization History Back surgery 2004 Hospitalization History Heart attack 2005 Hospitalization History CVA- [facility] 02/2018 Hospitalization History [facility], Pneumonia [...] Treatment Notes Treatm ent Clinical Notes 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, 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 (ICD-10 - Z79.01) PLAN OF TREATMENT Medication Medication Name Sig Start Date Stop Date Tramadol HCl 50 MG 1 tablet as needed Orally Up to QID MDD#4 for 7 day(s) Next Appt Details Provider Name:Magdaleno Reno, 11:30:00 AM, [address] [place], [address], Provider Name:Martin Mcclure, 01:00:00 PM, [address] [place], [address], Provider Name:Magdaleno Reno, 10:00:00 AM, [address], [place], [address], Insurance Providers Payer Name Payer Address Payer Phone Insured Name Patient Relati onship to Insured Coverage Start Date Coverage End Date MEDICAID [employer] [address] [facility] [address] MARTHA LOPEZ MEDICARE Part A and B [address] [facility] [phone] MARTHA LOPEZ
--- OUTSIDE RECORDS SUMMARY | 2020-04-27 13:11 | CCD ---
Author Author [facility] Organization [facility] Address Unknown Phone Unavailable Care Team Providers Care Cardiac Tech Name Role Phone Magdaleno Reno Unavailable PROBLEMS Type Condition ICD9-CM Code DWT36-HW Code Onset Dates Condition S tatus SNOMED Code Notes Problem Essential (primary) hypertension I10 Active 09752744 Problem Type 2 diabetes mellitus without complications E11 .9 Active 039747590 Problem Major depressive disorder, single episode, unspecified F32.9 Active 61586248 Problem Gait disturbance R26.9 Active 34543345 Problem half-way current use of 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 Z79.01 A ctive 282051763 Problem Type 2 diabetes mellitus with diabetic chronic kidney disease E11.22 Active 428500323228 Problem CKD (chronic kidney disease) stage 3, GFR 30-59 ml/min N18.3 Active 242272192 Problem Nonrheumatic aortic valve stenosis I35.0 Activ e 329389537 Problem Anxiety F41.9 Active 06758747 Problem Gastrointestinal tube present Z93.1 Active 44 9301297 Problem Obstructive sleep apnea syndrome G47.33 Active 93281656 Problem Coronary artery disease invo lving ho[place] coronary artery of [place] heart without angina pectoris I25.10 Active 537483469579 7 Problem S/P aortic valve replacement Z95.2 Active 123 5484573634 Problem 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 Active 059445440 Problem Atherosclerosis of [place] ar teries of left leg with ulceration of other part of foot I70.245 Active 635316835075139 Problem Type 2 diabetes mellitus with foot ulcer E11.621 Active 075575236 Problem Chronic atrial fibrillation I48.20 Active 4267 71802 Problem Non-seasonal allergic rhinitis due to other allergic melva er J30.89 Active 48636329 Problem Oropharyngeal dysphagia R13.12 Active 94986599 Problem Lumbar disc herniation with myelopathy M51.06 A ctive 540115616 Problem Type 2 diabetes mellitus with other diabetic kid quita complication E11.29 Active 45889369 Problem Chronic heart failure with preserved ejection fraction I50.32 Active 050553390 Problem Cerebrovascular accident (CVA) due to occlusion of small artery I63.81 Active 949762461 Problem 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 Acti ve 502275903 Problem 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 Activ e 412531430 ALLERGIES Allergen (clinical drug ingredient) Drug/Non Drug Allergy do cumented on EMR Reaction Allergy Type Onset Date Status metformin Metformin HCl([facility] Code:[address]-00) anxiety Drug Chapito rgy Active Penicillin (For Allergies Use Only) Anaphylaxis Drug Aller gy Active lovastatin Lovastatin([facility] Code:[address]-50) irritablity Drug Allerg y Active duloxetine Cymbalta([facility] Code:[address]-70) Nausea/vomiting Drug Chapito rgy Active atorvastatin Atorvastatin Calcium([facility] Code:[address]-87) irr itability Drug Allergy Active rosuvastatin Crestor([facility] Code:[address]-82) irritability Drug Allerg y Active ENCOUNTERS from 1945 to 2020-04-06 Encounter Location Date Provider Diagnosis [address] [address] Mar Magdaleno Reno Type 2 diabetes mellitus with diabetic c hronic kidney disease E11.22 ; Wound of foot S91.309A ; Stage 3b chronic kidney disease N18.32 ; Coronary artery disease involving hoopa coronary artery of hoopa heart without angina pectoris I25.10 ; Chronic heart failure with preserved ejection fraction I50.32 ; Chronic atrial fibrillation I48.20 ; Anxiety F41.9 ; Anemia, unspecified type D64.9 ; 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 and 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 IMMUNIZATIONS No Information SOCIAL HISTORY Tobacco Use: [...] FOR REFERRAL No Information VITAL SIGNS Weight 199.12 lbs Mar, Height 5'9" in Mar, BMI 29.40 kg/m2 Mar, Heart Rate 79 /min Mar, Respiratory Rate 18 /min Mar, Temperature 97.7 degrees Fahrenheit Mar, Oximetry 100ra Mar, Blood pressure systolic 170 mm Hg Mar, Blood pressure diastolic 89 mm Hg Mar, MEDICATIONS Medication SIG (Take, Route, Frequency, Duration) [...] Therapy evaluate and treat as directed 1-3X/w [place] Dx Gait instability as well as upper [...] No Information RESULTS Component Value Reference Range Comprehensive Metabolic Profile (CMP) Reviewed date:04/04/2020 17:05:21 Interpretation:Abnormal Performing Lab:[facility], [facility] [address] [facility] [address] , ,[place] [address] GLUCOSE, FASTING 214 70-100 BLOOD UREA NITROGEN 53 7-18 CREATININE FOR GFR 2.47 0.70-1.30 GLOMERULAR FILTRATION RATE 27.3 >42 SODIUM LEVEL 140 136-145 POTASSIUM SERUM 4.7 3.5-5.1 CHLORIDE LEVEL 108 98-107 CARBON DIOXIDE LEVEL 24 21-32 CALCIUM LEVEL 8.8 8.8-10.2 AST/SGOT 22 7-37 ALT/SGPT 29 12-78 ALKALINE PHOSPHATASE 71 45-117 BILIRUBIN,TOTAL 0.4 0.2-1.0 TOTAL PROTEIN 8.0 6.4-8.2 ALBUMIN 3.4 3.2-5.2 ALBUMIN/GLOBULIN RATIO 0.7 HEMOGLOBIN A1c Reviewed date:04/04/2020 17:05:21 Interpretation:Abnormal Performing Lab:[facility], [facility] [address] [facility] [address] , ,[facility] HEMOGLOBIN A1c 7.8 ESTIMATED AVERAGE GLUCOSE 177 60-110 REASON FOR VISIT 3 mo f/u, Patient states left foot has some sore areas, states sores have b roken out- so she made appt with Dr. Mcclure, cant get in until 04/20 though MEDICAL (GENERAL) HISTORY Type Description Date Medical [...] History CABG X 6, Aortic valve replacement- [facility] 02/2018 Surgical History CVA 2018 Hospitalization History Back surgery 2004 Hospitalization History Heart attack 2005 Hospitalization History CVA- [facility], [facility] 02/2018 Hospitalization History [facility], Pneumonia 06/2018 Hospitalization History [facility]-Pneumonia 01/2019 Hospitalization History pneumonia 04/2019 Hospitalization History [facility]- Pneumonia, CHF 02/2020 Hospitalization History [facility]- Diarrhea, pneumonia 02/2020 Goals Section No Information Health Concerns No Information MEDICAL EQUIPMENT No Information MENTAL STATUS No Information FUNCTIONAL STATUS No Information ASSESSMENTS Encounter Date Diagnosis Assessment Notes Treatment Notes Treatm ent Clinical Notes Mar, Type 2 diabetes mellitus wit h diabetic chronic kidney disease (ICD- 10 - E11.22) Sugar still slightly higher than idea, reinforced diet. and pt well aware of goals and she is really trying. Pt will work on diet. _update labs today. Mar, Wound of foot (ICD-10 - S91.309A) He has some foam dressing that has re-intiated from previour right foot wound so will cont and has wound care appt pending. Mar, Stage 3b chronic kidney disease (ICD-10 - N18.32 ) Update labs and cont with nephrology as scheduled. Mar, Coronary artery disease invo lving hoopa coronary artery of ho[place] heart without angina pectoris (ICD-10 - I25.10) Cont with cardiology as scheduled. Mar, Chronic heart failure with p reserved ejection fraction (ICD-10 - I50.32) Stable. Mar, Chronic atrial fibrillation (ICD-10 - I48.20) Stable- cont with cardiology. Mar, Anxiety (ICD-10 - F41.9) Currently okay overall. Mar, Anemia, unspecified type (ICD-10 - D64.9) Stable. Mar, Neuropathy of right upper extremity (ICD-10 - G5 6.91) is monitoring feet very closely. Mar, Neuropathy of left upper extremity (ICD-10 - G56 .92) is monitoring feet very closely. PLAN OF TREATMENT Medication Medication Name Sig Start Date Stop Date Tramadol HCl 50 MG 1 tablet as needed Orally Up to QID MDD#4 for 7 day(s) Treatment Notes Assessment Notes Clinical Notes Type 2 diabetes mellitus with diabetic chronic kidney diseas e Sugar still slightly higher than idea, reinforced diet. and pt well aware of goals and she is really trying. Pt will work on diet. _update labs today. Wound of foot He has some foam raymond ssing that has re-intiated from previour right foot wound so will cont and has wound care appt pending. Stage 3b chronic kidney disease Update l abs and cont with nephrology as scheduled. Coronary artery disease involving hoopa coronary artery of hoopa heart without angina pectoris Cont with cardiology as sche duled. Chronic heart failure with preserved ejection fraction Stable. Chronic atrial fibrillation Stable- cont with cardiology. Anxiety Currently okay overa ll. Anemia, unspecified type Stable. Neuropathy of right upper extremity is monitoring feet very closely. Neuropathy of left upper extremity is monitoring feet very closely. Next Appt Details 2 Months-3 Months Reason:30 minutes Provider Name:Magdaleno Reno, 11:30:00 AM, [address] [place], [address], Provider Name:Martin Mcclure, 01:00:00 PM, [address] [place], [address], Provider Name:Magdaleno Reno, 10:00:00 AM, [address] [place], [address], Follow Up:2 Months-3 [id number] minutes Insurance Providers Payer Name Payer Address Payer Phone Insured Name Patient Relati onship to Insured Coverage Start Date Coverage End Date MEDICARE Part A and B [address] [facility] [phone] MARTHA LOPEZ self MEDICAID [employer] [address] [facility] [id number] MARTHA LOPEZ self
--- OUTSIDE RECORDS SUMMARY | 2020-04-27 13:11 | CCD | Continuity of Care Document ---
Author Author Newton DURANT M.D. Organization Unknown Address [address] [place] [address] Phone [phone] Care Team Providers Care Tractor Mechanic Helper Name Role Phone Magdaleno Reno D.O. AUTM [phone] Problems Active Problems Provider Date Senile dementia [...] lb BMI (Body Mass Index) 26.8 kg/m2 [place] Body Weight 166 lb 12/17/2019 10:39am Respiratory Rate 12 /min Height 70 inches 5'10" Weight 187.00 lb BMI (Body Mass Index) 26.8 kg/m2 [place] Body Weight 166 lb Results Test Acquired Date Facility Test Result H/L Range Note FT4&TSH Panel 12/21/2019 [facility] Thyroid Stimulating Hormone 2.670 uIU/ML Normal 0.358-3.740 Free T4 0.77 ng/dL Normal 0.76-1.46 Vitamin B12 & Folate 12/21/2019 [facility] Vitamin B12 Level 931 pg/mL Normal 1 Folate 6.0 NG/ML Normal 2 Laboratory test finding 12/21/2019 [facility] Erythrocyte Sedimentation Rate 66 mm/hr High 0-20 Vitamin E Level 12/21/2019 [facility] Vitamin E(Alpha Tocopherol) 12.4 mg/L Normal 9.0-29.0 Vitamin E(Gamma Tocopherol) 1.5 mg/L Normal 0.5-4.9 3 Laboratory test finding 12/21/2019 [facility] Vitamin B1 Level Whole Blood 107.2 nmol/L Normal 66.5-200.0 4 Vitamin B6,Pyridoxal Phosphate 14.5 ug/L Normal 5.3-46.7 5 Antinuclear Antibodies 12/21/2019 [facility] Antinuclear Antibodies Direct Negative Normal Negative 6 1 VITAMIN B12 NORMAL RANGE NORMAL 247 - 911 PG/ML INDETERMINATE 211 - 246 PG/ML DEFICIENT LESS THAN 211 PG/ML 2 FOLATE NORMAL RANGE NORMAL GREATER THAN 5.4 NG/ML INDETERMINATE 3.4-5.4 NG/ML DEFICIENT LESS THAN 3.4 NG/ML 3 Reference intervals for alph a and gamma-tocopherol determined from National Health and Nutrition Examination Survey, 9885-0400. Individuals with alpha-tocopherol levels less than 5.0 mg/L are considered vitamin E deficient. 4 Specimen Comment: Test(s) 07 0141-Vitamin E(Alpha Tocopherol); 052610- Specimen Comment: Vitamin E(Gamma Tocopherol); 720135-Sfpzbma B6; 965754- Specimen Comment: Vit. B1, Whole Blood Specimen Comment: was developed and its performance characteristics Specimen Comment: determined by [facility]. It has not been cleared or approved Specimen Comment: by the Food and Drug Administration. 5 Specimen Comment: Test(s) 07 0141-Vitamin E(Alpha Tocopherol); 066692- Specimen Comment: Vitamin E(Gamma Tocopherol); 728329-Gtovibz B6; 368157- Specimen Comment: Vit. B1, Whole Blood Specimen Comment: was developed and its performance characteristics Specimen Comment: determined by [facility]. It has not been cleared or approved Specimen Comment: by the Food and Drug Administration. 6 Performed at: [facility] [address] [id number] Boiler Tube Reamer: Trisha Bowers MD, Phone: [phone] Performed at: [facility] [id number] Boiler Tube Reamer: Isabel Moralez MD, Phone: [phone] Procedures Date Code Description Status 01/26/2020 79118 EEG Recording Awake & Asleep Com pleted 01/26/2020 01229 EEG Recording Awake & Asleep Com pleted Medical Devices Description No Information Available Encounters Type Date Location Provider Dx Diagnosis Office Visit 03/24/2020 2:15p Main office - [place] Cj jordan M.D. R26.81 Unsteadiness on feet G20 Parkinson's disease Office Visit 12/17/2019 10:00a Main office - [place] Cj jordan M.D. G31.83 Dementia with Lewy bodies G20 Parkinson's disease R26.81 Unsteadiness on feet I73.9 Peripheral vascular disease, unspecified Assessments Date Code Description Provider 03/24/2020 R26.81 Unsteadiness on feet Cj dorman M.D. 03/24/2020 G20 Parkinson's disease Cj jordan M.D. 01/26/2020 R41.82 Altered mental status, unspecifi ed Lucille Luis Malave 01/26/2020 R41.82 Altered mental status, unspecifi ed EEG 12/17/2019 G31.83 Dementia with Lewy bodies Dianna Nagel M.D. 12/17/2019 G31.83 Dementia with Lewy bodies Cj Durant M.D. 12/17/2019 G20 Parkinson's disease iDanna Nagel M.D. 12/17/2019 G20 Parkinson's disease Cj [...] Description No Information Available Referrals Refer to Dr Reason for Referral Status Appt Date Dianna Nagel M.D. Created [facility] [address] [id number] [phone]
--- OUTSIDE RECORDS SUMMARY | 2020-04-27 13:12 | CCD ---
Author Author [facility] Organization [facility] Address Unknown Phone Unavailable Care Team Providers Care Chief Innovation Officer Name Role Phone Magdaleno Reno Unavailable PROBLEMS Type Condition ICD9-CM Code SDT94-BT Code Onset Dates Condition S tatus SNOMED Code Notes Problem Essential (primary) hypertension I10 Active 76858168 Problem Type 2 diabetes mellitus without complications E11 .9 Active 004386533 Problem Major depressive disorder, single episode, unspecified F32.9 Active 78535273 Problem Gait disturbance R26.9 Active 71948592 Problem [facility] current use of 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 Z79.01 A ctive 165761115 Problem Type 2 diabetes mellitus with diabetic chronic kidney disease E11.22 Active 364717265599 Problem CKD (chronic kidney disease) stage 3, GFR 30-59 ml/min N18.3 Active 538191801 Problem Nonrheumatic aortic valve stenosis I35.0 Activ e 716225477 Problem Anxiety F41.9 Active 68815630 Problem Gastrointestinal tube present Z93.1 Active 44 9607438 Problem Obstructive sleep apnea syndrome G47.33 Active 75024951 Problem Coronary artery disease invo lving [place] coronary artery of [place] heart without angina pectoris I25.10 Active 864566120881 7 Problem S/P aortic valve replacement Z95.2 Active 123 5675717262 Problem 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 Active 701492117 Problem Atherosclerosis of [place] ar teries of left leg with ulceration of other part of foot I70.245 Active 895470027884869 Problem Type 2 diabetes mellitus with foot ulcer E11.621 Active 939052826 Problem Chronic atrial fibrillation I48.20 Active 4267 10840 Problem Non-seasonal allergic rhinitis due to other allergic melva er J30.89 Active 40581826 Problem Oropharyngeal dysphagia R13.12 Active 27966231 Problem Lumbar disc herniation with myelopathy M51.06 A ctive 688733448 Problem Type 2 diabetes mellitus with other diabetic kid quita complication E11.29 Active 47081773 Problem Chronic heart failure with preserved ejection fraction I50.32 Active 790448329 Problem Cerebrovascular accident (CVA) due to occlusion of small artery I63.81 Active 489706039 Problem 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 Acti ve 893661135 Problem 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 Activ e 348896280 ALLERGIES Allergen (clinical drug ingredient) Drug/Non Drug Allergy do cumented on EMR Reaction Allergy Type Onset Date Status metformin Metformin HCl([facility] Code:[address]-28) anxiety Drug Chapito rgy Active Penicillin (For Allergies Use Only) Anaphylaxis Drug Aller gy Active lovastatin Lovastatin(ND Code:[address]-73) irritablity Drug Allerg y Active duloxetine Cymbalta([facility] Code:[address]-00) Nausea/vomiting Drug Chapito rgy Active atorvastatin Atorvastatin Calcium([facility] Code:[address]-22) irr itability Drug Allergy Active rosuvastatin Crestor([facility] Code:[address]-47) irritability Drug Allerg y Active ENCOUNTERS from 1945 to 2020-03-12 Encounter Location Date Provider Diagnosis [facility] [address] [place] [address] Feb Magdaleno Reno IMMUNIZATIONS No Information SOCIAL HISTORY [...] Notes Start Da te End Date Status Gabapentin 100 MG 1 capsule Orally Once a day for 30 day(s) Active Vitamin D-3 1000 UNIT 2 capsules Orally Once a day Active Physical Therapy evaluate and treat as directed 1-3X/w [place] Dx Gait instability as well as upper and lower extremity weakness for 42 days Jan, Active Tramadol HCl 50 MG 1 tablet as needed Orally Up to QID MDD#4 for 7 da y(s) Not-Taking Potassium 99 MG 1 tablet Orally Once a day Active Splint Wrist Brace/Left-Right - b/l carpal tunnel Spli nts for both wrists for 30 Days Active Walker - heavy duty wheeled walker with seat and hand brakes Dx R26 .9 Active Lancets - as directed three times daily on insulin for 90 day(s) Active Metoprolol Tartrate 50 MG 1 tablet with food Orally Twice a day for 90 days Active Glucometer as directed Daily for 90 day(s) Active Coumadin 1 MG 1 tablet Orally Once a day as directed for 90 days Mar, Active Acetaminophen 500 MG 2 tablet as needed Orally ev alyse 6 hrs as needed for pain Not to exceed 6 tablets in 24 hr period Active GlipiZIDE 10 MG 1 tablet in the am, 1/2 tab in the evening Orally Twice daily for 90 day(s) Active Polyethylene Glycol - 17 gram orally at bedtime for constipation Active Torsemide 20 MG 1 tablet Orally Once a day for 90 day(s) Active Warfarin Sodium 4 MG 1/2 tab MONDAYS AND SATURDAY and full tab SUNDAYS/ TUESDAYS/WEDNESDAYS/ FRIDAYS AND SATURDAY Orally before bedtime Active Blood Glucose Test - as directed In Vitro three t imes daily- pt on insulin for 90 day(s) Active Citalopram Hydrobromide 20 MG 1/2 tablet Orally at bedtime for 90 day (s) Active Echinacea - as directed Orally Jan, Act rafal PROCEDURES No Information RESULTS No Results [facility] MEDICAL (GENERAL) HISTORY Type Description Date Medical [...] History CABG X 6, Aortic valve replacement- [facility] 02/2018 Surgical History CVA 2018 Hospitalization History Back surgery 2004 Hospitalization History Heart attack 2005 Hospitalization History CVA- [facility], [facility] 02/2018 Hospitalization History [facility]-CHF, Pneumonia 06/2018 Hospitalization History [facility]-Pneumonia 01/2019 Hospitalization History pneumonia 04/2019 Hospitalization History [facility]- Pneumonia, CHF 02/2020 Hospitalization History [facility]- Diarrhea, pneumonia 02/2020 Goals Section No Information Health Concerns No Information MEDICAL EQUIPMENT No Information MENTAL STATUS No Information FUNCTIONAL STATUS No Information ASSESSMENTS Encounter Date Diagnosis Assessment Notes Treatment Notes Treatm ent Clinical Notes Feb, Other Discussion with PTS spouse, hospital follow up appt confirmed, medication list reviewed and verified, Anup Leal RN 03/07/2020 1330 PLAN OF TREATMENT Medication Medication Name Sig Start Date Stop Date Glucometer as directed Daily for 90 day(s) Blood Glucose Test - as directed In Vitro three t imes daily- pt on insulin for 90 day(s) Lancets - as directed three times daily on insulin for 90 day(s) Next Appt Details Provider Name:Magdaleno Saba Alexedmundamelia, 10:30:00 AM, [address] [place] [address], [address], Insurance Providers Payer Name Payer Address Payer Phone Insured Name Patient Relati onship to Insured Coverage Start Date Coverage End Date MEDICAID [employer] [address] [facility] [address] MARTHA LOPEZ MEDICARE Part A and B [address] [facility] [address] [phone] MARTHA LOPEZ
--- OUTSIDE RECORDS SUMMARY | 2020-04-27 13:12 | CCD ---
Author Author [facility] Organization [facility] Address Unknown Phone Unavailable Care Team Providers Care Powerhouse Mechanic Helper Name Role Phone Tish Mckeon Unavailable PROBLEMS Type Condition ICD9-CM Code QRA38-LQ Code Onset Dates Condition S tatus SNOMED Code Notes Problem Essential (primary) hypertension I10 Active 31981021 Problem Type 2 diabetes mellitus without complications E11 .9 Active 583092231 Problem Major depressive disorder, single episode, unspecified F32.9 Active 01867648 Problem Gait disturbance R26.9 Active 90617068 Problem [facility] current use of 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 Z79.01 A ctive 125380702 Problem Type 2 diabetes mellitus with diabetic chronic kidney disease E11.22 Active 987263445415 Problem CKD (chronic kidney disease) stage 3, GFR 30-59 ml/min N18.3 Active 506894208 Problem Nonrheumatic aortic valve stenosis I35.0 Activ e 991460995 Problem Anxiety F41.9 Active 02952917 Problem Gastrointestinal tube present Z93.1 Active 44 1349641 Problem Obstructive sleep apnea syndrome G47.33 Active 88708872 Problem Coronary artery disease invo lving [place] coronary artery of [place] heart without angina pectoris I25.10 Active 238019585374 7 Problem S/P aortic valve replacement Z95.2 Active 123 1410668115 Problem 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 Active 309079617 Problem Atherosclerosis of [place] ar teries of left leg with ulceration of other part of foot I70.245 Active 308807220363300 Problem Type 2 diabetes mellitus with foot ulcer E11.621 Active 937131068 Problem Chronic atrial fibrillation I48.20 Active 4253 67804 Problem Non-seasonal allergic rhinitis due to other allergic melva er J30.89 Active 20908404 Problem Oropharyngeal dysphagia R13.12 Active 41999254 Problem Lumbar disc herniation with myelopathy M51.06 A ctive 166570802 Problem Type 2 diabetes mellitus with other diabetic kid quita complication E11.29 Active 40302912 Problem Chronic heart failure with preserved ejection fraction I50.32 Active 302072873 Problem Cerebrovascular accident (CVA) due to occlusion of small artery I63.81 Active 669601758 Problem 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 Code:[address]-33) anxiety Drug Chapito rgy Active Penicillin (For Allergies Use Only) Anaphylaxis Drug Aller gy Active lovastatin Lovastatin([facility] Code:[address]-05) irritablity Drug Allerg y Active duloxetine Cymbalta([facility] Code:[address]-77) Nausea/vomiting Drug Chapito rgy Active atorvastatin Atorvastatin Calcium(ND Code:[address]-52) irr itability Drug Allergy Active rosuvastatin Crestor(ND Code:[address]-80) irritability Drug Allerg y Active ENCOUNTERS from 1945 to 2020-03-10 Encounter Location Date Provider Diagnosis [facility] [address] [place] [address] Feb [place] Chronic atrial fibrillation I48.20 and L ara term current use of 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 Z79.01 IMMUNIZATIONS No [...] Notes Start Da te End Date Status Physical Therapy evaluate and treat as directed 1-3X/w [place] Dx Gait instability as well as upper and lower extremity weakness for 42 days Jan, 020 Active Pen [place] 31G X 6 MM as directed subcutaneously Daily Dx E 11.9 for 90 day(s) August, Unknown Blood Glucose Test - as directed In Vitro three t imes daily- pt on insulin for 90 day(s) Jan, Active Splint Wrist Brace/Left-Right - b/l carpal tunnel Spli nts for both wrists for 30 Days Unknown Gabapentin 100 MG 1 capsule Orally Once a day for 30 day(s) Active Tramadol HCl 50 MG 1 tablet as needed Orally Up to QID MDD#4 for 7 da y(s) Not-Taking Lancets - as directed three times daily on insulin for 90 day(s) Jan, Active Echinacea - as directed Orally Jan, Act rafal Coumadin 1 MG 1 tablet Orally Once a day as directed for 90 days Mar, Not-Taking Citalopram Hydrobromide 20 MG 1/2 tablet Orally at bedtime for 90 day (s) Active Vitamin D-3 1000 UNIT 2 capsules Orally Once a day Active GlipiZIDE 10 MG 1 tablet in the am, 1/2 tab in the evening Orally Twice daily for 90 day(s) Active Metoprolol Tartrate 50 MG 1 tablet with food Orally Twice a day for 90 days Active Polyethylene Glycol - 17 gram orally at bedtime for constipation Active Warfarin Sodium 4 MG 1/2 tab MONDAYS AND SATURDAY and full tab SUNDAYS/ TUESDAYS/WEDNESDAYS/ FRIDAYS AND SATURDAY Orally before bedtime Active Torsemide 20 MG 1 tablet Orally Once a day for 90 day(s) Active Walker - heavy duty wheeled walker with seat and hand brakes Dx R26 .9 Active Glucometer as directed Daily for 90 day(s) Jan, Active BD Insulin Syringe 29G X 1/2 as directed subcutaneously Daily fo r 30 day(s) Apr, Unknown Acetaminophen 500 MG 2 tablet as needed Orally ev alyse 6 hrs as needed for pain Not to exceed 6 tablets in 24 hr period Active Potassium 99 MG 1 tablet Orally Once a day Active PROCEDURES No Information RESULTS Component Value Reference Range PT-INR Reviewed date:02/25/2020 08:44:41 Interpretation: Performing Lab:[facility] [place] [address] INR 3.1 Verified Patient's Name and Current Dose 1 2MG M/TH 4MG ROW Current Dose 2 Tab Strength Indication for Anticoagulation CABG/CVA Ecchymosis or Bleeding Noted INR Range 2-3 Prothrombin Time/INR Protime Hold for Day(s) Education Given (Date / Initials) New Dose 1 no change New Dose 2 Next PT Check 1 week Comments for PT-INR AWARE REASON FOR VISIT INR MEDICAL (GENERAL) HISTORY Type Description Date Medical History Diabetes Medical History Hypertension Medical History Depression Medical History Squamous cell cancer right h and, right shoulder, right lower leg Medical History Herniated disc,pinched sciatic nerve Medical History Myocardial infarction Medical History Aortic stenosis Medical History Sleep apnea Medical History CAD Surgical History Back surgery 2005 Surgical History Squamous cell right hand 2004 Surgical History left eye cataract surgery 07/07/14 Surgical History Colonoscopy Surgical History skin cancer removal left shoulder and ri ght lower calf 02/2017 Surgical History CABG X 6, Aortic valve replacement- [facility] 02/2018 Surgical History CVA 2018 Hospitalization History Back surgery 2005 Hospitalization History Heart attack 2006 Hospitalization History CVA- [facility] 02/2018 Hospitalization History [facility]-CHF, Pneumonia 06/2018 Hospitalization History [facility]neum[facility] 01/2019 Hospitalization History pneumonia 04/2019 Hospitalization History [facility]- Pneumonia, CHF 02/2020 Goals Section No Information Health Concerns No Information MEDICAL EQUIPMENT No Information MENTAL STATUS No Information FUNCTIONAL STATUS No Information ASSESSMENTS Encounter Date Diagnosis Assessment Notes Treatment Notes Treatm ent Clinical Notes Feb, Chronic atrial fibrillation (ICD-10 - I48.20) 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, 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
--- OUTSIDE RECORDS SUMMARY | 2020-04-27 13:12 | CCD ---
Author Author [facility] Organization [facility] Address Unknown Phone Unavailable Care Team Providers Care Advertising Supervisor Name Role Phone Magdaleno Reno Unavailable PROBLEMS Type Condition ICD9-CM Code [id number] Code Onset Dates Condition S tatus SNOMED Code Notes Problem Essential (primary) hypertension I10 Active 50242383 Problem Type 2 diabetes mellitus without complications E11 .9 Active 639664770 Problem Major depressive disorder, single episode, unspecified F32.9 Active 97923569 Problem Gait disturbance R26.9 Active 56573685 Problem [facility] current use of 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 Z79.01 A ctive 331274529 Problem Type 2 diabetes mellitus with diabetic chronic kidney disease E11.22 Active 788499851697 Problem CKD (chronic kidney disease) stage 3, GFR 30-59 ml/min N18.3 Active 909000099 Problem Nonrheumatic aortic valve stenosis I35.0 Activ e 229789543 Problem Anxiety F41.9 Active 55070379 Problem Gastrointestinal tube present Z93.1 Active 44 4059415 Problem Obstructive sleep apnea syndrome G47.33 Active 36077223 Problem Coronary artery disease invo lving [place] coronary artery of [place] heart without angina pectoris I25.10 Active 378347889894 7 Problem S/P aortic valve replacement Z95.2 Active 123 1444775545 Problem 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 Active 242264776 Problem Atherosclerosis of [place] ar teries of left leg with ulceration of other part of foot I70.245 Active 256987830105935 Problem Type 2 diabetes mellitus with foot ulcer E11.621 Active 691926087 Problem Chronic atrial fibrillation I48.20 Active 4251 20904 Problem Non-seasonal allergic rhinitis due to other allergic melva er J30.89 Active 77340749 Problem Oropharyngeal dysphagia R13.12 Active 12477846 Problem Lumbar disc herniation with myelopathy M51.06 A ctive 801301204 Problem Type 2 diabetes mellitus with other diabetic kid quita complication E11.29 Active 62246557 Problem Chronic heart failure with preserved ejection fraction I50.32 Active 362454735 Problem Cerebrovascular accident (CVA) due to occlusion of small artery I63.81 Active 794344604 Problem 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 Acti ve 502494272 Problem 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 Activ e 689685666 ALLERGIES Allergen (clinical drug ingredient) Drug/Non Drug Allergy do cumented on EMR Reaction Allergy Type Onset Date Status metformin Metformin HCl([facility] Code:[address]-34) anxiety Drug Chapito rgy Active Penicillin (For Allergies Use Only) Anaphylaxis Drug Aller gy Active lovastatin Lovastatin([facility] Code:[address]-67) irritablity Drug Allerg y Active duloxetine Cymbalta([facility] Code:[address]-41) Nausea/vomiting Drug Chapito rgy Active atorvastatin Atorvastatin Calcium([facility] Code:[address]-83) irr itability Drug Allergy Active rosuvastatin Crestor([facility] Code:[address]-93) irritability Drug Allerg y Active ENCOUNTERS from 1945 to 2020-03-08 Encounter Location Date Provider Diagnosis [facility] [address] [place] [address] Feb Magdaleno Reno [facility] current use of 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 Z 79.01 IMMUNIZATIONS [...] Therapy evaluate and treat as directed 1-3X/w [place] Dx Gait instability as well as upper and lower extremity weakness for 42 days Jan, 020 Active Pen [place] 31G X 6 MM as directed subcutaneously [...] a day Active PROCEDURES No Information RESULTS No Results REASON FOR VISIT orders MEDICAL (GENERAL) HISTORY Type Description Date Medical [...] History CABG X 6, Aortic valve replacement- [facility] 02/2018 Surgical History CVA 2018 Hospitalization History Back surgery 2004 Hospitalization History Heart attack 2005 Hospitalization History CVA- [facility] 02/2018 Hospitalization History [facility]-CHF, Pneumonia 06/2018 Hospitalization History [facility]-Pneumonia 01/2019 Hospitalization History pneumonia 04/2019 Hospitalization History [facility]- Pneumonia, CHF 02/2020 Goals Section No Information Health Concerns No Information MEDICAL EQUIPMENT No Information MENTAL STATUS No Information FUNCTIONAL STATUS No Information ASSESSMENTS Encounter Date Diagnosis Assessment Notes Treatment Notes Treatm ent Clinical Notes 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, 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
--- OUTSIDE RECORDS SUMMARY | 2020-04-27 13:12 | CCD ---
Author Author [facility] Organization [facility] Address Unknown Phone Unavailable Care Team Providers Care Male Infertility Specialist Name Role Phone Magdaleno Reno Unavailable PROBLEMS Type Condition ICD9-CM Code ZEZ90-PA Code Onset Dates Condition S tatus SNOMED Code Notes Problem Essential (primary) hypertension I10 Active 16961889 Problem Type 2 diabetes mellitus without complications E11 .9 Active 150815198 Problem Major depressive disorder, single episode, unspecified F32.9 Active 25203586 Problem Gait disturbance R26.9 Active 54645076 Problem [facility] current use of 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 Z79.01 A ctive 069962035 Problem Type 2 diabetes mellitus with diabetic chronic kidney disease E11.22 Active 446587490681 Problem CKD (chronic kidney disease) stage 3, GFR 30-59 ml/min N18.3 Active 492839857 Problem Nonrheumatic aortic valve stenosis I35.0 Activ e 939637606 Problem Anxiety F41.9 Active 38109927 Problem Gastrointestinal tube present Z93.1 Active 44 0970664 Problem Obstructive sleep apnea syndrome G47.33 Active 37013099 Problem Coronary artery disease invo lving [place] coronary artery of [place] heart without angina pectoris I25.10 Active 604918666757 7 Problem S/P aortic valve replacement Z95.2 Active 123 2405488495 Problem 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 Active 312849555 Problem Atherosclerosis of [place] ar teries of left leg with ulceration of other part of foot I70.245 Active 107573508084764 Problem Type 2 diabetes mellitus with foot ulcer E11.621 Active 744210028 Problem Chronic atrial fibrillation I48.20 Active 4267 05428 Problem Non-seasonal allergic rhinitis due to other allergic melva er J30.89 Active 28259038 Problem Oropharyngeal dysphagia R13.12 Active 18256663 Problem Lumbar disc herniation with myelopathy M51.06 A ctive 668966956 Problem Type 2 diabetes mellitus with other diabetic kid quita complication E11.29 Active 96099666 Problem Chronic heart failure with preserved ejection fraction I50.32 Active 479820563 Problem Cerebrovascular accident (CVA) due to occlusion of small artery I63.81 Active 959259270 Problem 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 Acti ve 097897050 Problem 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 Activ e 508230604 ALLERGIES Allergen (clinical drug ingredient) Drug/Non Drug Allergy do cumented on EMR Reaction Allergy Type Onset Date Status metformin Metformin HCl([facility] Code:[address]-22) anxiety Drug Chapito rgy Active Penicillin (For Allergies Use Only) Anaphylaxis Drug Aller gy Active lovastatin Lovastatin(ND Code:[address]-34) irritablity Drug Allerg y Active duloxetine Cymbalta(ND Code:[address]-67) Nausea/vomiting Drug Chapito rgy Active atorvastatin Atorvastatin Calcium(ND Code:[address]-29) irr itability Drug Allergy Active rosuvastatin Crestor(ND Code:[address]-79) irritability Drug Allerg y Active ENCOUNTERS from 1945 to 2020-03-15 Encounter Location Date Provider Diagnosis [address] [address] Mar Magdaleno Huizenga Diarrhea, unspecified type R19.7 ; Aspir ation pneumonia of right middle lobe, unspecified aspiration pneumonia type J69.0 ; Oropharyngeal dysphagia R13.12 ; Type 2 diabetes mellitus with diabetic chronic kidney disease E11.22 ; Cerebrovascular accident (CVA) due to occlusion of small artery I63.81 ; Coronary artery disease involving [place] coronary artery of [place] heart without angina pectoris I25.10 ; Chronic heart failure with preserved ejection fraction I50.32 ; CKD stage G3b/A2, GFR 30-44 and albumin creatinine ratio 30-299 mg/g N18.32 ; Hx of coronary artery disease Z86.79 ; Chronic atrial fibrillation I48.20 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 IMMUNIZATIONS No [...] FOR REFERRAL No Information VITAL SIGNS Weight 197 lbs Mar, Height 5'9" in Mar, BMI 29.09 kg/m2 Mar, Heart Rate 60 /min Mar, Respiratory Rate 18 /min Mar, Temperature 97.6 degrees Fahrenheit Mar, Oximetry 100ra Mar, Blood pressure systolic 165 mm Hg Mar, Blood pressure diastolic 81 mm Hg Mar, MEDICATIONS Medication SIG (Take, Route, Frequency, Duration) Notes Start Da te End Date Status Gabapentin 100 MG 1 capsule Orally Once a day for 30 day(s) Active Vitamin D-3 1000 UNIT 2 capsules Orally Once a day Active Physical Therapy evaluate and treat as directed 1-3X/w [place] Dx Gait instability as well as upper and lower extremity weakness for 42 days Jan, 020 Active Tramadol HCl 50 MG 1 tablet [...] Jan, Act rafal PROCEDURES No Information RESULTS Component Value Reference Range Basic Metabolic Profile (BMP) Reviewed date:03/11/2020 17:06:51 Interpretation: Performing Lab:[facility], [facility] [address] [facility] [id number] , ,[place] [address] GLUCOSE, FASTING 254 70-100 BLOOD UREA NITROGEN 60 7-18 CREATININE FOR GFR 2.53 0.70-1.30 GLOMERULAR FILTRATION RATE 26.6 >42 SODIUM LEVEL 137 136-145 POTASSIUM SERUM 4.8 3.5-5.1 CHLORIDE LEVEL 108 98-107 CARBON DIOXIDE LEVEL 22 21-32 CALCIUM LEVEL 8.9 8.8-10.2 REASON FOR VISIT TCM Hosp F/U , Patient accompanied by . Patient getting [facility] home health PT t wice weekly, nurse once weekly and tomorrow ST will be coming into home MEDICAL (GENERAL) HISTORY Type Description Date Medical [...] History CABG X 6, Aortic valve replacement- [facility] 02/2018 Surgical History CVA 2018 Hospitalization History Back surgery 2005 Hospitalization History Heart attack 2006 Hospitalization History CVA- [facility] 02/2018 Hospitalization History [facility]-CHF, Pneumonia 06/2018 Hospitalization History [facility]-Pneumonia 01/2019 Hospitalization History pneumonia 04/2019 Hospitalization History [facility]- Pneumonia, CHF 02/2020 Hospitalization History [facility]- Diarrhea, pneumonia 02/2020 Goals Section No Information Health Concerns No Information MEDICAL EQUIPMENT No Information MENTAL STATUS No Information FUNCTIONAL STATUS No Information ASSESSMENTS Encounter Date Diagnosis Assessment Notes Treatment Notes Treatm ent Clinical Notes Mar, Diarrhea, unspecified type (ICD-10 - R19.7) Symptoms resolved, no further tx. Pt aware. Mar, Aspiration pneumonia of righ t middle lobe, unspecified aspiration pneumonia type (ICD-10 - J69.0) Symptoms appear resolved. Pt agreeable. Mar, Oropharyngeal dysphagia (ICD-10 - R13.12) Mechanical soft diet with thickened liquids but discussed trying to make sure to limit total carbohydrates. He will have ST and PT through [facility]. This is a real challenge for food options. Mar, Type 2 diabetes mellitus wit h diabetic chronic kidney disease (ICD- 10 - E11.22) Will monitor closely, will work on lower carbohydrate. Mar, Cerebrovascular accident (CV A) due to occlusion of small artery (ICD-10 - I63.81) Cont with home PT. Mar, Coronary artery disease invo lving [place] coronary artery of [place] heart without angina pectoris (ICD-10 - I25.10) Cont with cardiology. Mar, Chronic heart failure with p reserved ejection fraction (ICD-10 - I50.32) Cont with cardiology and nephrology. Mar, CKD stage G3b/A2, GFR 30-44 and albumin creatinine ratio 30-299 mg/g (ICD-10 - N18.32) Cont with nephrology. Mar, Hx of coronary artery disease (ICD-10 - Z86.79) Cont coumadin. Mar, Chronic atrial fibrillation (ICD-10 - I48.20) Cont with cardiology and coumadin. 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 Pt aware. Aspiration pneumonia of right middle lob e, unspecified aspiration pneumonia type Symptoms appear resolved. Pt agreeable. Oropharyngeal dysphagia Mechanical soft diet with thickened liquids but discussed trying to make sure to limit total carbohydrates. He will have ST and PT through [facility]. This is a real challenge for food options. Type 2 diabetes mellitus with diabetic chronic kidney diseas e Will monitor closely, will work on lower carbohydrate. Cerebrovascular accident (CVA) due to occlusion of small art alyse Cont with home PT. Coronary artery disease involving [place] coronary artery of [place] heart without angina pectoris Cont with cardiology. Chronic heart failure with preserved ejection fraction Cont with cardiology and nephrology. CKD stage G3b/A2, GFR 30-44 and albumin creatinine ratio 30- 299 mg/g Cont with nephrology. Hx of coronary artery disease Cont couma din. Chronic atrial fibrillation Cont with ca rdiology and coumadin. Next Appt Details as scheduled Reason: Provider Name:Magdaleno Reno, 10:30:00 AM, [address] [place], [address], Insurance Providers Payer Name Payer Address Payer Phone Insured Name Patient Relati onship to Insured Coverage Start Date Coverage End Date MEDICARE Part A and B [address] [facility] [address] MARTHA LOPEZ MEDICAID [place] [employer] [address] [facility] [id number] MARTHA LOPEZ
--- OUTSIDE RECORDS SUMMARY | 2020-04-27 13:12 | CCD ---
Author Author [facility] Organization [facility] Address Unknown Phone Unavailable Care Team Providers Care Linux System Admin Name Role Phone Magdaleno Reno Unavailable PROBLEMS Type Condition ICD9-CM Code HEA04-ZP Code Onset Dates Condition S tatus SNOMED Code Notes Problem Essential (primary) hypertension I10 Active 87017729 Problem Type 2 diabetes mellitus without complications E11 .9 Active 644455135 Problem Major depressive disorder, single episode, unspecified F32.9 Active 26483132 Problem Gait disturbance R26.9 Active 30982779 Problem [facility] current use of 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 Z79.01 A ctive 554518064 Problem Type 2 diabetes mellitus with diabetic chronic kidney disease E11.22 Active 607733500710 Problem CKD (chronic kidney disease) stage 3, GFR 30-59 ml/min N18.3 Active 860898504 Problem Nonrheumatic aortic valve stenosis I35.0 Activ e 889455234 Problem Anxiety F41.9 Active 95440585 Problem Gastrointestinal tube present Z93.1 Active 44 4255734 Problem Obstructive sleep apnea syndrome G47.33 Active 53755795 Problem Coronary artery disease invo lving [place] coronary artery of [place] heart without angina pectoris I25.10 Active 059909629165 7 Problem S/P aortic valve replacement Z95.2 Active 123 9396742049 Problem 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 Active 712166993 Problem Atherosclerosis of [place] ar teries of left leg with ulceration of other part of foot I70.245 Active 394360776141405 Problem Type 2 diabetes mellitus with foot ulcer E11.621 Active 920519254 Problem Chronic atrial fibrillation I48.20 Active 4267 73668 Problem Non-seasonal allergic rhinitis due to other allergic melva er J30.89 Active 56659759 Problem Oropharyngeal dysphagia R13.12 Active 61226393 Problem Lumbar disc herniation with myelopathy M51.06 A ctive 005004125 Problem Type 2 diabetes mellitus with other diabetic kid quita complication E11.29 Active 12869723 Problem Chronic heart failure with preserved ejection fraction I50.32 Active 070147869 Problem Cerebrovascular accident (CVA) due to occlusion of small artery I63.81 Active 769411482 Problem 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 Acti ve 938250219 Problem 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 Activ e 030321020 ALLERGIES Allergen (clinical drug ingredient) Drug/Non Drug Allergy do cumented on EMR Reaction Allergy Type Onset Date Status metformin Metformin HCl([facility] Code:[address]-81) anxiety Drug Chapito rgy Active Penicillin (For Allergies Use Only) Anaphylaxis Drug Aller gy Active lovastatin Lovastatin(ND Code:[address]-28) irritablity Drug Allerg y Active duloxetine Cymbalta([facility] Code:[address]-43) Nausea/vomiting Drug Chapito rgy Active atorvastatin Atorvastatin Calcium([facility] Code:[address]-94) irr itability Drug Allergy Active rosuvastatin Crestor([facility] Code:[address]-71) irritability Drug Allerg y Active ENCOUNTERS from 1945 to 2020-03-14 Encounter Location Date Provider Diagnosis [address] [address] [place] [address] Mar Magdaleno Reno IMMUNIZATIONS No Information SOCIAL [...] Therapy evaluate and treat as directed 1-3X/w [place] Dx Gait instability as well as upper [...] History CABG X 6, Aortic valve replacement- [facility] 02/2018 Surgical History CVA 2017 Hospitalization History Back surgery 2004 Hospitalization History Heart attack 2005 Hospitalization History CVA- [facility] 02/2018 Hospitalization History [facility]-CHF, Pneumonia 06/2018 Hospitalization History [facility]-Pneumonia 01/2019 Hospitalization History pneumonia 04/2019 Hospitalization History [facility]- Pneumonia, CHF 02/2020 Hospitalization History [facility]- Diarrhea, pneumonia 02/2020 Goals Section No [...] Details Provider Name:Magdaleno Wandy Reno, 10:30:00 AM, [address] [place], [address], Insurance Providers Payer Name Payer Address Payer Phone Insured Name Patient Relati onship to Insured Coverage Start Date Coverage End Date MEDICAID [place] [address] [facility] [address] MARTHA LOPEZ MEDICARE Part A and B [address] [facility] [address] [phone] MARTHA LOPEZ
--- OUTSIDE RECORDS SUMMARY | 2020-04-27 13:12 | CCD ---
Author Author [facility] Organization [facility] Address Unknown Phone Unavailable Care Team Providers Care Job Lithographer Name Role Phone Magdaleno Reno Unavailable PROBLEMS Type Condition ICD9-CM Code LUE75-FR Code Onset Dates Condition S tatus SNOMED Code Notes Problem Essential (primary) hypertension I10 Active 84256557 Problem Type 2 diabetes mellitus without complications E11 .9 Active 079569833 Problem Major depressive disorder, single episode, unspecified F32.9 Active 08429397 Problem Gait disturbance R26.9 Active 82951863 Problem skilled nursing current use of 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 Z79.01 A ctive 220816423 Problem Type 2 diabetes mellitus with diabetic chronic kidney disease E11.22 Active 826316398516 Problem CKD (chronic kidney disease) stage 3, GFR 30-59 ml/min N18.3 Active 275878585 Problem Nonrheumatic aortic valve stenosis I35.0 Activ e 062948998 Problem Anxiety F41.9 Active 79436835 Problem Gastrointestinal tube present Z93.1 Active 44 4181485 Problem Obstructive sleep apnea syndrome G47.33 Active 02211218 Problem Coronary artery disease invo lving [place] coronary artery of [place] heart without angina pectoris I25.10 Active 147080179913 7 Problem S/P aortic valve replacement Z95.2 Active 123 1831705246 Problem 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 Active 029467935 Problem Atherosclerosis of [place] ar teries of left leg with ulceration of other part of foot I70.245 Active 481689135706494 Problem Type 2 diabetes mellitus with foot ulcer E11.621 Active 473146372 Problem Chronic atrial fibrillation I48.20 Active 4267 23067 Problem Non-seasonal allergic rhinitis due to other allergic melva er J30.89 Active 33296963 Problem Oropharyngeal dysphagia R13.12 Active 52829053 Problem Lumbar disc herniation with myelopathy M51.06 A ctive 955282897 Problem Type 2 diabetes mellitus with other diabetic kid quita complication E11.29 Active 51205734 Problem Chronic heart failure with preserved ejection fraction I50.32 Active 327518768 Problem Cerebrovascular accident (CVA) due to occlusion of small artery I63.81 Active 041594049 Problem 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 Acti ve 596191901 Problem 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 Activ e 139710148 ALLERGIES Allergen (clinical drug ingredient) Drug/Non Drug Allergy do cumented on EMR Reaction Allergy Type Onset Date Status metformin Metformin HCl([facility] Code:[address]-48) anxiety Drug Chapito rgy Active Penicillin (For Allergies Use Only) Anaphylaxis Drug Aller gy Active lovastatin Lovastatin(ND Code:[address]-62) irritablity Drug Allerg y Active duloxetine Cymbalta([facility] Code:[address]-43) Nausea/vomiting Drug Chapito rgy Active atorvastatin Atorvastatin Calcium([facility] Code:[address]-15) irr itability Drug Allergy Active rosuvastatin Crestor(ND Code:[address]-11) irritability Drug Allerg y Active ENCOUNTERS from 1945 to 2020-03-14 Encounter Location Date Provider Diagnosis [facility] [address] [place] [address] Mar Magdaleno Reno meterman current use of 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 Z 79.01 IMMUNIZATIONS [...] Therapy evaluate and treat as directed 1-3X/w [place] Dx Gait instability as well as upper [...] RESULTS Component Value Reference Range PT-INR Reviewed date:03/10/2020 10:15:28 Interpretation: Performing Lab:[facility], [place] [address] INR 3.0 Verified Patient's Name and Current Dose 1 2MG M/TH, 4MG ROW Current Dose 2 Tab Strength [...] CABG X 6, Aortic valve replacement- [facility] 02/2018 Surgical History CVA 2018 Hospitalization History Back surgery 2004 Hospitalization History Heart attack 2005 Hospitalization History CVA- [facility], [facility] 02/2018 Hospitalization History [facility]-CHF, Pneumonia 06/2018 Hospitalization History [facility]-Pneumonia 01/2019 Hospitalization History pneumonia 04/2019 Hospitalization History [facility]- Pneumonia, CHF 02/2020 Hospitalization History [facility]- Diarrhea, pneumonia 02/2020 Goals Section No Information Health Concerns No Information MEDICAL EQUIPMENT No Information MENTAL STATUS No Information FUNCTIONAL STATUS No Information ASSESSMENTS Encounter Date Diagnosis Assessment Notes Treatment Notes Treatm ent Clinical Notes Mar, skilled nursing current use of 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 (ICD-10 [...] Appt Details Provider Name:Magdaleno Reno, 10:30:00 AM, [address] [place], [address], Insurance Providers Payer Name Payer Address Payer Phone Insured Name Patient Relati onship to Insured Coverage Start Date Coverage End Date MEDICAID [place] [employer] Program [address] [facility] [address] MARTHA LOPEZ MEDICARE Part A and B [address] [facility] [address] [phone] MARTHA LOPEZ
--- OUTSIDE RECORDS SUMMARY | 2020-04-27 13:12 | CCD ---
Author Author [facility] Organization [facility] Address Unknown Phone Unavailable Care Team Providers Care Business System Manager Name Role Phone Magdaleno Reno Unavailable PROBLEMS Type Condition ICD9-CM Code DTE16-FK Code Onset Dates Condition S tatus SNOMED Code Notes Problem Essential (primary) hypertension I10 Active 57866522 Problem Type 2 diabetes mellitus without complications E11 .9 Active 722220816 Problem Major depressive disorder, single episode, unspecified F32.9 Active 86343040 Problem Gait disturbance R26.9 Active 04589387 Problem group home current use of 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 Z79.01 A ctive 334296764 Problem Type 2 diabetes mellitus with diabetic chronic kidney disease E11.22 Active 703366687057 Problem CKD (chronic kidney disease) stage 3, GFR 30-59 ml/min N18.3 Active 695362424 Problem Nonrheumatic aortic valve stenosis I35.0 Activ e 647283396 Problem Anxiety F41.9 Active 20165265 Problem Gastrointestinal tube present Z93.1 Active 44 2875642 Problem Obstructive sleep apnea syndrome G47.33 Active 59876347 Problem Coronary artery disease invo lving [place] coronary artery of [place] heart without angina pectoris I25.10 Active 863695609767 7 Problem S/P aortic valve replacement Z95.2 Active 123 9293544801 Problem 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 Active 096443490 Problem Atherosclerosis of [place] ar teries of left leg with ulceration of other part of foot I70.245 Active 702764828048072 Problem Type 2 diabetes mellitus with foot ulcer E11.621 Active 925119189 Problem Chronic atrial fibrillation I48.20 Active 4267 21461 Problem Non-seasonal allergic rhinitis due to other allergic melva er J30.89 Active 61853060 Problem Oropharyngeal dysphagia R13.12 Active 64981472 Problem Lumbar disc herniation with myelopathy M51.06 A ctive 938606870 Problem Type 2 diabetes mellitus with other diabetic kid quita complication E11.29 Active 39505351 Problem Chronic heart failure with preserved ejection fraction I50.32 Active 972762009 Problem Cerebrovascular accident (CVA) due to occlusion of small artery I63.81 Active 700482786 Problem 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 Acti ve 377934522 Problem 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 Activ e 532533673 ALLERGIES Allergen (clinical drug ingredient) Drug/Non Drug Allergy do cumented on EMR Reaction Allergy Type Onset Date Status metformin Metformin HCl([facility] Code:[address]-35) anxiety Drug Chapito rgy Active Penicillin (For Allergies Use Only) Anaphylaxis Drug Aller gy Active lovastatin Lovastatin(ND Code:[address]-79) irritablity Drug Allerg y Active duloxetine Cymbalta([facility] Code:[address]-48) Nausea/vomiting Drug Chapito rgy Active atorvastatin Atorvastatin Calcium([facility] Code:[address]-96) irr itability Drug Allergy Active rosuvastatin Crestor([facility] Code:[address]-40) irritability Drug Allerg y Active ENCOUNTERS from 1945 to 2020-03-17 Encounter Location Date Provider Diagnosis [address] [address] [place] [address] Mar Magdaleno Reno IMMUNIZATIONS No Information SOCIAL [...] No Drug and Alcohol Question Answer Notes Interpretation: No problems reported Total Score: 0 Alcohol Screening: Question Answer Notes Did you [...] Therapy evaluate and treat as directed 1-3X/w [place] Dx Gait instability as well as upper [...] CABG X 6, Aortic valve replacement- [facility] 02/2018 Surgical History CVA 2017 Hospitalization History Back surgery 2004 Hospitalization History Heart attack 2005 Hospitalization History CVA- [facility] 02/2018 Hospitalization History [facility]-CHF, Pneumonia 06/2018 Hospitalization History [facility]-Pneumonia 01/2019 Hospitalization History pneumonia 04/2019 Hospitalization History [facility]- Pneumonia, CHF 02/2020 Hospitalization History [facility]- Diarrhea, pneumonia 02/2020 Goals Section No Information [...] Provider Name:Magdaleno Reno, 10:30:00 AM, [place], [address], Insurance Providers Payer Name Payer Address Payer Phone Insured Name Patient Relati onship to Insured Coverage Start Date Coverage End Date MEDICAID [employer] [address] [facility] [id number] [phone] MARTHA LOPEZ MEDICARE Part A and B [address] [facility] [address] [phone] MARTHA LOPEZ
[2020-04-27 13:16] LABS: HEMATOCRIT 29.6 % (42.0-52.0); HEMOGLOBIN 9.9 g/dl (13.5-17.5); MEAN CORPUSCULAR HEMOGLOBIN 33.1 pg (27.0-33.0); MEAN CORPUSCULAR HGB CONC 33.4 g/dl (32.0-36.5); PLATELET COUNT, AUTOMATED 136 10^3/uL (150-450); RED BLOOD COUNT 2.99 10^6/uL (4.30-6.10); WHITE BLOOD COUNT 7.9 10^3/uL (4.0-10.0)
--- NOTE | 2020-04-27 13:17 | REP ---
INDICATION: AMS. COMPARISON: Comparison chest x-ray 29 February 2020.. TECHNIQUE: Semi-erect AP portable chest x-ray. FINDINGS: Monitoring electrodes are seen. Median sternotomy wires are again noted. Heart size is borderline. There is some fissural thickening in the minor fissure. No laure pleural effusion is seen. Minimal linear fibrosis left base laterally unchanged. No acute infiltrate is seen. Pulmonary vasculature is not increased. IMPRESSION: No acute infiltrate. Minimal linear fibrosis left base. Borderline heart size. Fissural thickening in the minor fissure. Status post aortic valve replacement. <Electronically signed by Ortega Moser > 04/27/20 [id number]
[2020-04-27 13:27] LABS: INR 2.17; PROTHROMBIN TIME 24.7 SECONDS (12.5-14.3)
[2020-04-27 13:46] LABS: ALBUMIN 3.3 GM/DL (3.2-5.2); BILIRUBIN,TOTAL 0.6 MG/DL (0.2-1.0); CALCIUM LEVEL 9.2 MG/DL (8.8-10.2); CREATININE FOR GFR 3.14 MG/DL (0.70-1.30); GLOMERULAR FILTRATION RATE 20.7 (>42); MAGNESIUM LEVEL 2.4 MG/DL (1.8-2.4); POTASSIUM SERUM 4.2 MEQ/L (3.5-5.1); TOTAL PROTEIN 7.8 GM/DL (6.4-8.2)
[2020-04-27 15:01] VITALS: BP 166/73
== END 2020-04-27 15:25 | disposition home or self-care (01) ==
LOC: M ED 10:57
DX: G31.83 Neurocognitive disorder with Lewy bodies (principal); N18.4 Chronic kidney disease, stage 4 (severe); I25.10 Atherosclerotic heart disease of native coronary artery without angina pectoris; I25.2 Old myocardial infarction; I50.9 Heart failure, unspecified; I48.91 Unspecified atrial fibrillation; E11.9 Type 2 diabetes mellitus without complications; I10 Essential (primary) hypertension; Z86.73 Personal history of transient ischemic attack (TIA), and cerebral infarction without residual deficits; F32.9 Major depressive disorder, single episode, unspecified; Z95.4 Presence of other heart-valve replacement; Z79.84 Long term (current) use of oral hypoglycemic drugs; Z79.899 Other long term (current) drug therapy; Z88.0 Allergy status to penicillin; Z88.8 Allergy status to other drugs, medicaments and biological substances; Z88.5 Allergy status to narcotic agent; Z91.018 Allergy to other foods

== ENCOUNTER → 2020-05-02 | Outpatient (CLI) | payer MEDICARE, MEDICAID ==
--- NOTE | 2020-05-02 10:28 | REP ---
INDICATION: NON-PRS CHRONIC ULCER OTH PRT LT FOOT W FAT LAYER. COMPARISON: Comparison study is from 27 April 2019.. TECHNIQUE: Left lower extremity duplex arterial ultrasound. FINDINGS: Ankle brachial index could not be obtained due to inaudible posterior tibial and occluded dorsalis pedis. Monophasic waveforms are noted in the arterial tree at and below the tibial-peroneal trunk. The distal anterior tibial artery is noted to be occluded. A trickle of flow is observed in the distal posterior tibial artery today. Left lower extremity arterial Doppler velocity chart: Left SHUTTLE INSPECTOR PSV 61 cm/S Profundal 47 Proximal SFA 58 Mid SFA 53 Distal SFA 98 Popliteal 74 Proximal RONY 92 Tibial-peroneal trunk 38 Proximal MANAGER GENERATION 21 Distal MANAGER GENERATION 18 Distal RONY occluded IMPRESSION: Atherosclerotic changes in the left lower extremity as above. Occlusion of the distal anterior tibial artery and trickle flow in the distal posterior tibial artery. <Electronically signed by Ortega Moser > 05/02/20 [id number]
== END ==
LOC: M RAD 09:33
PROVIDERS: ATTEND Surgery
DX: L97.522 Non-pressure chronic ulcer of other part of left foot with fat layer exposed (principal)

== ENCOUNTER → 2020-05-09 | Outpatient (REF) | payer MEDICARE, MEDICAID ==
[~2020-05-09] MED LIST changes: +QUET1TAB7 GT; -QUET25TA3 GT
[2020-05-09 16:26] LABS: CALCIUM LEVEL 8.7 MG/DL (8.8-10.2); CREATININE FOR GFR 2.46 MG/DL (0.70-1.30); GLOMERULAR FILTRATION RATE 27.4 (>42)
== END ==
LOC: M SFHCCLAY 10:04
PROVIDERS: ATTEND Family Medicine
DX: N18.32 Chronic kidney disease, stage 3b (principal)

== ENCOUNTER → 2020-05-23 | Outpatient (CLI) | payer MEDICARE, MEDICAID ==
[~2020-05-23] MED LIST changes: -QUET1TAB7 GT; +QUET25TA3 GT
--- NOTE | 2020-05-23 09:54 | REP ---
INDICATION: R/O SURYA COMPARISON: None TECHNIQUE: Real time reeves scale ultrasound examination using curved array transducer followed by color Doppler evaluation of the renal vasculature. FINDINGS: Kidneys demonstrate normal renal shape with mildly increased central sinus fat and small renovascular calcifications. Right kidney measures 10.8 x 6.3 x 4.7 cm with 1.8 cm peripelvic cyst demonstrating small amount of layering milk of calcium. Left kidney measures 10.6 x 5.1 x 5.2 cm and includes 7 mm upper pole cyst. Color Doppler evaluation is somewhat limited due to overlying bowel gas.. Peak aortic velocity: 78 centimeters/second RIGHT KIDNEY Renal arterial velocity: 90 centimeters/second Renal-aortic ratio: 1.15 Intrarenal resistive indices: 0.83-0.88 Intrarenal acceleration times: 0.034-0.046 LEFT KIDNEY Renal arterial velocity: 59 centimeters/second Renal-aortic ratio: 0.77 Intrarenal resistive indices: 0.79-0.85 Intrarenal acceleration times: 0.034-0.036 IMPRESSION: 1. Findings related to age-related renal disease and small cysts without hydronephrosis. 2. Doppler interegation without sonographic evidence for renal arterial stenosis. <Electronically signed by Sebas Sun > 05/23/20 [id number]
== END ==
LOC: M RAD 08:41
PROVIDERS: ATTEND Radiology Diagnostic Radiology
DX: I70.1 Atherosclerosis of renal artery (principal); N28.1 Cyst of kidney, acquired

== ENCOUNTER → 2020-06-02 | Outpatient (CLI) | payer MEDICARE, MEDICAID ==
[~2020-06-02] MED LIST changes: +COMMENTS; +ISOVUE-300 61% 50ML VIAL As Ordered ONE; +LIDOCAINE 1% MDV 20ML VIAL As Ordered ONE; +MIDAZOLAM INJ 2MG/2ML VIAL (J2250 PER 1MG) As Ordered ONE; +PROMETHAZINE INJ 25 MG/ML VIAL (J2550) As Ordered ONE; +SANT250O8 TOP; +diphenhydrAMINE 50MG/ML VIAL (J1200) As Ordered ONE; +fentaNYL 100 MCG/2 ML INJECTION (J3010) As Ordered ONE
[2020-06-02 08:09] LABS: HEMATOCRIT 28.2 % (42.0-52.0); HEMOGLOBIN 8.9 g/dl (13.5-17.5); MEAN CORPUSCULAR HEMOGLOBIN 32.8 pg (27.0-33.0); MEAN CORPUSCULAR HGB CONC 31.6 g/dl (32.0-36.5); MEAN CORPUSCULAR VOLUME 104.1 fl (80.0-96.0); PLATELET COUNT, AUTOMATED 149 10^3/uL (150-450); RED BLOOD COUNT 2.71 10^6/uL (4.30-6.10); WHITE BLOOD COUNT 10.3 10^3/uL (4.0-10.0)
[2020-06-02 08:23] LABS: CALCIUM LEVEL 8.6 MG/DL (8.8-10.2); CREATININE FOR GFR 2.55 MG/DL (0.70-1.30); GLOMERULAR FILTRATION RATE 26.3 (>42); POTASSIUM SERUM 4.7 MEQ/L (3.5-5.1)
--- NOTE | 2020-06-02 08:38 | IRHP ---
[facility] IR Pre-Procedure H & P General Date of Service: Jun 02, 2020 Procedure: Same Day Surgery Interval History and Physical I have seen the patient and reviewed last H & P performed within 30 days. There is no significant interval change. History of Present Illness Chief Complaint The patient is a 75-year-old male admitted with a reason for visit of PAD. PRE-PROCEDURE DIAGNOSIS: PAD HEART: normal rate. LUNGS: normal breathing at rest. ASA Classification ASA Classification: III-Severe systemic dis. Mallampati Score: II NPO: Yes Problems with prior sedation: No Obstructive Sleep Apnea: No Plan moderate sedation Allergies Coded Allergies: [place] (Verified Allergy, Severe, ANAPHYLAXIS, 11/09/14) Penicillins (Verified Allergy, Severe, Anaphylaxis, 02/17/20) HAS RECEIVED 2nd & 3RD GEN CEPHALOSPORINS w/o PROBLEM metformin (Verified Allergy, Severe, Tongue swelling, 07/02/18) Jvdytlp-Ngk-Ibq Reductase Inhibitor (Verified Adverse Reaction, Intermediate, Altered Mental Status, 07/02/18) codeine (Verified Adverse Reaction, Mild, "out of it". , 02/17/20) mixed with guifenasin duloxetine (Unverified Adverse Reaction, Mild, Nausea and vomiting, ) clindamycin (Verified Adverse Reaction, Unknown, DIARRHEA, 02/29/20) Home Medications Scheduled Cholecalciferol (Vitamin D3) (Vitamin D3), 2,000 UNITS PO DAILY, (Reported) Citalopram Hydrobromide (Citalopram HBr), 10 MG PO QHS, (Reported) Echinacea (Echinacea), 380 MG PO DAILY, (Reported) Glipizide (Glipizide), 10 MG PO QAM, (Reported) Glipizide (Glipizide), 5 MG PO QPM, (Reported) Metoprolol Tartrate (Metoprolol Tartrate), 50 MG PO BID, (Reported) Polyethylene Glycol 3350 (Miralax), 17 GM PO QHS, (Reported) Potassium Gluconate (Potassium), 595 MG PO DAILY, (Reported) Warfarin Sodium (Warfarin Sodium), 4 MG PO 5XW, (Reported) Warfarin Sodium (Warfarin Sodium), 2 MG PO 2XW, (Reported) Scheduled PRN Acetaminophen (Tylenol Extra Strength), 1,000 MG PO Q6H PRN for PAIN, (Reported) Torsemide (Torsemide), 20 MG PO DAILY PRN for EDEMA, (Reported) Discontinued Medications Gabapentin (Gabapentin), 100 MG PO QHS PRN for PAIN, (Reported) Discontinued Reason: Pt states not taking VS, I&O, 24H, Fishbone Vital Signs/I&O Vital Signs Date Time Temp Pulse Resp B/P (MAP) Pulse Ox O2 Delivery O2 Flow Rate FiO2 06/02/20 07:40 18 06/02/20 07:40 98.1 67 96 Room Air Laboratory Data 24H LABS Laboratory Tests 2 06/02/20 07:35: Nucleated Red Blood Cells % (auto) 0.0, Anion Gap 6L, Glomerular Filtration Rate 26.3L, Calcium Level 8.6L CBC/BMP Laboratory Tests 06/02/20 07:35 LESLIE DEL VALLE MD Jun 02, 2020 08:38
[2020-06-02 08:51] LABS: INR 2.51; PROTHROMBIN TIME 27.7 SECONDS (12.5-14.3)
[2020-06-02 15:45] VITALS: BP 161/88
--- NOTE | 2020-06-06 11:18 | POST-OPPD ---
Postoperative Procedure Note Date Of Procedure: Jun 02, 2020 Time Of Procedure: 16:00 IR Left leg angiogram. IR Left below-knee runoff arteriogram. IR Ultrasound-guided right common femoral artery access. IR Moderate sedation. Clinical Information:Nonhealing left lower extremity ulcers. Physician: Dr. Tafoya. Procedure: The patient was advised of the benefits, risks, and alternatives of the procedure and informed consent was obtained. A time out was performed with verification of the patient's name, MRN, site of procedure, and type of procedure to be performed. The patient was positioned in the supine position on the angiographic table. The site was prepped and draped in the usual sterile fashion. Moderate sedation was performed by the physician including the presence of an independent trained RN, who assisted in monitoring the patient's level of consciousness and physiological status. Following the administration of fen tanyl and Versed, the physician spent 60 minutes of continuous [id number] time with the patient. A tire balancer radiograph reveals no gross abnormality. Ultrasound of the right groin demonstrates patent right common femoral artery. Lidocaine was used for local anesthesia. The right common femoral artery was accessed, under ultrasound guidance with a microintroducer set. A short 0.018" [place] wire was inserted and the needle was exchanged for a 4 Fr microintroducer sheath. The guidewire and dilator were removed and a 0.035" Bentson wire was placed into the abdominal aorta. A 4 Fr sheath was placed over the wire. An Omni flush first catheter was advanced over the wire under fluoroscopy guidance and used to catheterize the infrarenal abdominal aorta. A pelvic arteriogram was performed and this demonstrates patent infrarenal abdominal aorta: Patent bilateral common iliac, internal iliac and external iliac arteries. The guidewire was advanced through the catheter and used under fluoroscopy guidance to gain up and over access into the left common iliac artery. The catheter was exchanged over the wire for a Glidecath. The Glidecath in conjunction with wire was used to and catheterize the left common femoral artery. A left leg angiogram was performed and this demonstrates patent left common femoral, superficial femoral and profunda femoris. Angiography further down the left leg was performed and this demonstrates irregularity and greater than 80% stenosis in the distal SFA. Multifocal greater than 80% stenosis in the left popliteal artery. A below-knee runoff arteriogram was performed and this demonstrates irregularity and stenosis at the tibia peroneal trunk. Complete occlusion of the entire anterior tibial artery and posterior tibial artery. Multifocal short segment occlusions in the peroneal artery. The peroneal artery continues to the ankle where it collateralizes to reconstitute the distal posterior tibial artery, plantar and calcaneal branches. No in-line anterior tibial flow into the left foot. Collaterals reconstitute dorsalis pedis. Catheter, wire and sheath were removed, pressure held and hemostasis achieved. A sterile dressing was applied to the site. The patient tolerated the procedure well and was returned to the PRU in stable condition. EBL: < 5 mL. Complications:None. Impression: 1. Left leg angiogram demonstrates multifocal stenosis of the distal SFA and popliteal artery. 2. Below-knee arterial runoff demonstrates complete occlusion of the anterior tibial and posterior tibial artery. There is distal reconstitution of dorsalis pedis, calcaneal and plantar branches off the peroneal artery. Poor in-line flow to the left foot. 3. Microvascular disease in the left foot. 4. Angioplasty of the SFA, popliteal artery and recanalization of anterior tibial artery and posterior tibial artery was not possible today due to patient's INR being greater than 2.5. Patient to remain off Coumadin and return on Saturday for intervention providing INR is less than 2. Thank you for this referral. Cc LESLIE Whitmore MD Jun 06, 2020 11:18
== END ==
LOC: M IRPRO 07:12
PROVIDERS: ATTEND Radiology Diagnostic Radiology
DX: I70.202 Unspecified atherosclerosis of native arteries of extremities, left leg (principal); I70.92 Chronic total occlusion of artery of the extremities; I71.4 Abdominal aortic aneurysm, without rupture; Z79.01 Long term (current) use of 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s; Z79.899 Other long term (current) drug therapy; Z88.0 Allergy status to penicillin; Z91.018 Allergy to other foods
CPT/HCPCS: 36246; 75710; 80048; 85027; 85610; 99152; 99153; C1769; C1887; C1894; G0269; J1200; J1644; J2250; J3010; Q9967

== ENCOUNTER 2020-06-06 09:55 | Inpatient (IN) | payer MEDICARE, MEDICAID ==
[~2020-06-06] VITALS: Ht 177.8 cm; Wt 93.3 kg
[~2020-06-06 09:55] MED LIST changes: -COMMENTS; -SANT250O8 TOP
--- NOTE | 2020-06-06 10:42 | REP ---
INDICATION: DYSPNEA/COUGH COMPARISON: 04/27/2020 TECHNIQUE: Portable AP view of the chest FINDINGS: Mediastinum and cardiac silhouette are stable. Trapped fluid in the right major fissure creating pseudotumor appearance is suggested in the right midlung zone. Underlying elements of pulmonary vascular congestion and or atelectasis cannot be excluded. No definite effusion. No pneumothorax. Skeletal structures are stable. IMPRESSION: Presumed trapped fluid in the right major fissure creating pseudotumor appearance along with possible atelectasis and pulmonary vascular congestion. <Electronically signed by Sebas Sun > 06/06/20 [id number]
[2020-06-06] MEDS ORDERED: FUROSEMIDE 40MG/4ML VIAL (J1940) IV ONE (10:50)
[2020-06-06 11:01] LABS: ABG BASE EXCESS -8.2 (-2.0-2.0); ABG HCO3 15.4 MEQ/L (22.0-26.0); ABG O2 SATURATION 97.5 % (95.0-99.0); ABG PARTIAL PRESSURE CO2 25.6 mmHg (35.0-45.0); ABG PARTIAL PRESSURE O2 99.4 mmHg (75.0-100.0); ABG STANDARD HCO3 17.8 MEQ/L (22.0-26.0); ABG TOTAL CO2 16.1 MEQ/L (23.0-31.0); ABG pH (ARTERIAL) 7.396 UNITS (7.350-7.450)
[2020-06-06 11:11] LABS: BASO % 0.5 % (0.0-1.0); EOS # 0.3 10^3/uL (0.0-0.5); EOS % 3.4 % (0.0-3.0); HEMATOCRIT 24.2 % (42.0-52.0); HEMOGLOBIN 7.6 g/dl (13.5-17.5); LYMPH # 1.2 10^3/uL (1.5-5.0); LYMPH % 13.7 % (24.0-44.0); MEAN CORPUSCULAR HGB CONC 31.4 g/dl (32.0-36.5); MEAN CORPUSCULAR VOLUME 105.2 fl (80.0-96.0); MONO # 0.6 10^3/uL (0.0-0.8); MONO % 7.1 % (2.0-8.0); NEUTROPHILS # 6.5 10^3/uL (1.5-8.5); NEUTROPHILS % 74.7 % (36.0-66.0); PLATELET COUNT, AUTOMATED 144 10^3/uL (150-450); WHITE BLOOD COUNT 8.7 10^3/uL (4.0-10.0)
[2020-06-06 11:44] LABS: ALBUMIN 3.1 GM/DL (3.2-5.2); BILIRUBIN,DIRECT 0.2 MG/DL (0.0-0.2); BILIRUBIN,TOTAL 0.5 MG/DL (0.2-1.0); CALCIUM LEVEL 8.4 MG/DL (8.8-10.2); CK-MB VALUE MASS 7.3 NG/ML (<3.6); CREATININE FOR GFR 2.56 MG/DL (0.70-1.30); GLOMERULAR FILTRATION RATE 26.2 (>42); MB/CK RELATIVE INDEX 6.35 (< OR =4); POTASSIUM SERUM 4.3 MEQ/L (3.5-5.1); THYROID STIMULATING HORMONE 3.09 uIU/ML (0.358-3.740); THYROXINE (T4) 5.8 UG/DL (4.5-12.0); TOTAL PROTEIN 7.3 GM/DL (6.4-8.2); TROPONIN I 0.03 NG/ML (< 0.10)
[2020-06-06] MEDS ORDERED: SANT250O8 TOP (13:09)
[2020-06-06] MEDS ORDERED: COMMENTS (13:10)
[2020-06-06] MEDS ORDERED: DEXTROSE 50% 50 ML SYRINGE IV PRN (13:55)
[2020-06-06] MEDS ORDERED: GLUCAGON INJ 1MG VIAL SC PRN (13:55)
[2020-06-06] MEDS ORDERED: GLUCOSE 4GM CHEW TABLET PO PRN (13:55)
[2020-06-06 14:55] VITALS: BP 171/77
[2020-06-06 15:00] VITALS: BP 158/72
[2020-06-06] MEDS: HEPARIN SOD (PORCINE) 5000UNITS/ML 1ML VIAL/SYRINGE SC SCH (15:00)
--- NOTE | 2020-06-06 16:33 | HPEPDOC ---
General Date of Admission 06/06/20 Date of Service: Jun 06, 2020 Chief Complaint The patient is a 75-year-old male admitted with a reason for visit of Short Of Breath. History of Present Illness 75 year old male with CAD s/p CABG, s/p AVR by bioprosthetic valve, PAD with rest pain and ischemic ulcers of legs, CKD stage 4, diabetes, Afib on coumadin, diastolic CHF h/o cardiac arrest in 2018 had a angiography done on 06/02/20 and was found to have occlusions of left distal SFA, left Tibial, left Popliteal arteries however angioplasty could not be done due to his INR being > 2.5. He was hydrated for the procedure with 1600 cc of NS in view of his CKD stage 4. He came back today for evaluation for possible angioplasty to be done if his INR was ok. His INR was at 1.29 but he was noted to be SOB and felt to be in CHF so was sent to the ED. Patient complained of increased swelling of both of his legs extending up to his thighs. He complained of shortness of breath, which he says is a chronic, but he feels that it has been more in the past couple days. He does not use oxygen at home. CXR presumed trapped fluid in the right major fissure creating pseudotumor appearance along with possible atelectasis and pulmonary vascular congestion. Patient was admitted for CHF exacerbation. Home Medications Scheduled Cholecalciferol (Vitamin D3) (Vitamin D3) 50 Mcg Capsule, 2,000 UNITS PO DAILY, (Reported) TAKES AT NOON Citalopram Hydrobromide (Citalopram HBr) 20 Mg Tab, 10 MG PO QHS, (Reported) Collagenase Clostridium Hist. (Santyl) 30 Gm Oint...g., 1 APPLIC TOP DAILY, (Reported) APPLY TO FEET Echinacea (Echinacea) 380 Mg Cap, 380 MG PO DAILY, (Reported) Glipizide (Glipizide) 10 Mg Tab, 10 MG PO QAM, (Reported) Glipizide (Glipizide) 10 Mg Tablet, 5 MG PO QPM, (Reported) Metoprolol Tartrate (Metoprolol Tartrate) 50 Mg Tab, 50 MG PO BID, (Reported) Polyethylene Glycol 3350 (Miralax) 119 Gm Powder, 17 GM PO QHS, (Reported) HOLD FOR DIARRHEA Potassium Gluconate (Potassium) 99 Mg Tablet, 595 MG PO DAILY, (Reported) TAKES AT 1200 Warfarin Sodium (Warfarin Sodium) 4 Mg Tab, 4 MG PO 5XW, (Reported) SUN//SAT/SAT/SAT WITH DINNER Warfarin Sodium (Warfarin Sodium) 4 Mg Tablet, 2 MG PO 2XW, (Reported) MON/TH WITH DINNER Scheduled PRN Acetaminophen (Tylenol Extra Strength) 500 Mg Tablet, 1,000 MG PO Q6H PRN for PAIN, (Reported) Torsemide (Torsemide) 20 Mg Tablet, 20 MG PO DAILY PRN for EDEMA, (Reported) Miscellaneous Medications [Comments] , (Reported) PT WAS TOLD TO STOP WARFARIN 05/31/20 BY DOCTOR BECAUSE OF PROCEDURE SCHEDULED FOR 06/09/20 Allergies Coded Allergies: [place] (Verified Allergy, Severe, ANAPHYLAXIS, 11/09/14) Penicillins (Verified Allergy, Severe, Anaphylaxis, 02/17/20) HAS RECEIVED 2nd & 3RD GEN CEPHALOSPORINS w/o PROBLEM metformin (Verified Allergy, Severe, Tongue swelling, 07/02/18) Wrlylex-Yov-Qid Reductase Inhibitor (Verified Adverse Reaction, Intermediate, Altered Mental Status, 07/02/18) codeine (Verified Adverse Reaction, Mild, "out of it". , 02/17/20) mixed with guifenasin duloxetine (Unverified Adverse Reaction, Mild, Nausea and vomiting, 07/02) clindamycin (Verified Adverse Reaction, Unknown, DIARRHEA, 02/29/20) Past Medical History Medical History H/o Severe Aortic stenosis s/p AVR with bioprosthetic valve 02-21-18, CAD s/p CABG ( 6 vessel) SIDNEY, CKD stage IV with h/o CVVHD in 2018. Diabetes, PAD bilateral lower extremities with rest pain and ischemic ulcers. h/o Systolic CHF with EF or 40% prior to surgery Now chronic diastolic CHF, Moderate Mitral regurgitation Moderate to severe pulmonary hypertension Lewy body dementia newly diagnosed by neurology. Parkinson,s disease Dysphagia Anemia of chronic disease. H/o Recurrent right Pleural effusions several chest tubes in the past. Witnessed Cardiac arrest in [facility] x 2 in 02/17/2018 ( Vifib arrest and PEA) H/o tracheostomy, feeding tube, H/o Critical illness myopathy, Afib on AC H/o Strokes in different distributions noted in MRI april noted while in ARU in [facility] (04/14/18), Multifocal MRSA pneumonia in Apr 2018, Bilateral rib fractures, T12 vertebral body anterior compression, Squamous cell carcinoma of the skin, Has delayed recovery from anesthesia by history, Depression, Bilateral cataract surgeries and lens implant Malignant melanoma removed from the back 10 to 11 years ago, Chronic Hoarseness after laryngeal injury during a procedure. Surgical History CABG X 6, AORTIC VALVE REPLACEMENT- [facility] 02/2018, BACK SURGERY 2004, SQUAMOUS CELL RIGHT HAND 2003, LEFT EYE CATARACT SURGERY 07/07/14, SKIN CANCER REMOVAL LEFT SHOULDER AND RIGHT LOWER CALF 02/2017, LEFT 5TH TOE AMPUTATION 2019 Right 5th toe amputation in 2017 Family History FATHER: 63 YRS, DIAGNOSED WITH UNSPECIFIED HEART DISEASE MOTHER: 85 YRS, DIABETES, OTHER MALIGNANT NEOPLASM OF UNSPECIFIED SITE, HYPERTENSION SIBLINGS: 43 YRS, DIABETES Social History * Smoker: former Smoker Alcohol: Denies Drugs: denies A-FIB/CHADSVASC A-FIB History Current/History of A-Fib/PAF?: Yes Current PO Anticoag Therapy: Yes Review of Systems Constitutional: Reports: Fatigue; Denies: Chills, Fever, Night Sweats Eyes: Denies: Pain, Vision change ENT: Denies: Head Aches, Ear Pain, Dysphagia Skin: Reports: Breakdown, Other (bilateral foot ulcers. ); Denies: Rash, Lesions Pulmonary: Reports: Dyspnea, Cough Cardiovascular: Reports: Edema Gastrointestinal: Denies: Nausea, Vomiting, Abdominal Pain, Diarrhea Genitourinary: Denies: Dysuria, Frequency, Incontinence, Retention Hematologic: Denies: Bruising, Bleeding Excessively Musculoskeletal: Reports: Leg Pain Physical Examination General Exam: Positive: Alert, Cooperative, No Acute Distress Eye Exam: Positive: PERRLA, Conjunctiva & lids normal, EOMI; Negative: Sclera icteric ENT Exam: Positive: Atraumatic, Mucous membr. moist/pink, Pharynx Normal Neck Exam: Positive: Supple, JVD; Negative: thyromegaly Chest Exam: Positive: Diminished, Other (bilateral basal crackles more on domenico left) Heart Exam: Positive: Rate Normal, Regular Rhythm, Normal S1, Normal S2, Murmurs (systolic murmur most prominent inmitral area); Negative: Rubs Abdomen Exam: Positive: Normal bowel sounds, Soft; Negative: Tenderness, Hepatospenomegaly Extremity Exam: Positive: Edema; Negative: Clubbing, Cyanosis Skin Exam: Positive: Breakdown (ulcer int he right big toe, ulcers inteh left first and second toes and the left lateral side of the foot. ) Vital Signs Vital Signs Date Time Temp Pulse Resp B/P (MAP) Pulse Ox O2 Delivery O2 Flow Rate FiO2 06/06/20 10:11 96.8 67 22 183/88 (119) 99 Room Air Laboratory Data Labs 24H Laboratory Tests 2 06/06/20 10:38: Immature Granulocyte % (Auto) 0.6, Neutrophils (%) (Auto) 74.7H, Lymphocytes (%) (Auto) 13.7L, Monocytes (%) (Auto) 7.1, Eosinophils (%) (Auto) 3.4H, Basophils (%) (Auto) 0.5, Neutrophils # (Auto) 6.5, Lymphocytes # (Auto) 1.2L, Monocytes # (Auto) 0.6, Eosinophils # (Auto) 0.3, Basophils # (Auto) 0.0, Nucleated Red Blood Cells % (auto) 0.0, Anion Gap 7L, Glomerular Filtration Rate 26.2L, Lactic Acid Level 1.0, Calcium Level 8.4L, Total Bilirubin 0.5, Direct Bilirubin 0.2, Aspartate Amino Transf (AST/SGOT) 14, Alanine Aminotransferase (ALT/SGPT) 32, Alkaline Phosphatase 89, Total Creatine Kinase 115, Creatine Kinase MB 7.3H, Creatine Kinase MB Relative Index 6.35H, Troponin I 0.03, SY-Kod-W-Type Natriuretic Peptide 5914H, Total Protein 7.3, Albumin 3.1L, Albumin/Globulin Ratio 0.7, Thyroid Stimulating Hormone (TSH) 3.090, Thyroxine (T4) 5.8 06/06/20 10:50: Blood Gas Bicarbonate Standard 17.8L, Arterial Blood pH 7.396, Arterial Blood Partial Pressure CO2 25.6L, Arterial Blood Partial Pressure O2 99.4, Arterial Blood Total CO2 16.1L, Arterial Blood HCO3 15.4L, Arterial Blood Base Excess - 8.2L, Arterial Blood Oxygen Saturation 97.5 CBC/BMP Laboratory Tests 06/06/20 10:38 Microbiology Microbiology 06/06/20 Respiratory Virus Panel (PCR) (MANDIE), Received Pending 06/06/20 Blood Culture, Received Pending 06/06/20 Blood Culture, Received Pending Assessment/Plan 75 year old male with CAD s/p CABG, s/p AVR by bioprosthetic valve, PAD with rest pain and ischemic ulcers of legs, CKD stage 4, diabetes, Afib on coumadin, diastolic CHF h/o cardiac arrest in 2018 had a angiography done on 06/02/20 and was found to have occlusions of left distal SFA, left Tibial, left Popliteal arteries however angioplasty could not be done due to his INR being > 2.5. He was hydrated for the procedure with 1600 cc of NS in view of his CKD stage 4. He came back today for evaluation for possible angioplasty to be done if his INR was ok. His INR was at 1.29 but he was noted to be SOB and felt to be in CHF so was sent to the ED. Patient complained of increased swelling of both of his legs extending up to his thighs. He complained of shortness of breath, which he says is a chronic, but he feels that it has been more in the past couple days. He does not use oxygen at home. CXR presumed trapped fluid in the right major fissure creating pseudotumor appearance along with possible atelectasis and pulmonary vascular congestion. Patient was admitted for CHF exacerbation. Diastolic CHF exacerbation Will place the patient on IV Lasix Fluid restriction 1500 mL, intake output, daily weights CKD stage IV Creatinine and at her baseline. We'll continue to monitor Had to contrast dye. On June 02, but does not seem to have developed any issues after that. Hypertension. Will continue with metoprolol Diabetes with neuropathy Will continue with Glipizide as per home regimen fingerstick before breakfast and before dinner Patient is not taking gabapentin Paroxysmal A. fib right now in sinus rhythm. Patient's Coumadin has been held in anticipation of the interventional radiology procedure will not restart Coumadin at present. Place the patient on not Lovenox for DVT prophylaxis. Peripheral arterial disease with chronic ischemic foot ulcers Patient was supposed to have an angioplasty and possible stent placement today, but was canceled because of some fluid overload I reached out to interventional radiology. Dr Tafoya is planning to do the procedure either later this week or next week as outpatient after he is discharged. In the meantime she recommended to continue to hold Coumadin Wound care as per Dr. Mcclure's outpatient advice CAD status post CABG Continue beta christian the patient is not on statin. Tried several kinds but was having side effects so stopped. Valvular heart disease History of severe aortic stenosis status post aortic valve replacement with bioprosthetic valve. Patient also has moderate mitral regurgitation Continue diuresis Depression. Continue Celexa Recent diagnosis of Lewy body dementia and Parkinson's disease by [facility] neurology Patient says that he has good days and bad days and today was a good day not on any medications at present Dysphagia level 2 mechanical soft diet with necter thick liquids. Plan / VTE VTE Prophylaxis Ordered?: Yes KEIRA CORDOBA MD Jun 06, 2020 12:49
[2020-06-06] MEDS: glipiZIDE (GLUCOTROL) 5 MG TAB PO SCH (17:18)
[2020-06-06] MEDS ORDERED: FUROSEMIDE 100MG/10ML VIAL (J1940) IV SCH (18:00)
--- NOTE | 2020-06-06 19:30 | ECGEPIP ---
[facility] - ED Test Date: 2020-06-06 Pat Name: MARTHA LOPEZ Department: Room: - Gender: Male Home Health Outreach Coordinator: KELI : 1945 Requested By: Uri Mcneal Order Number: [id number] Reading MD: Uri Mcneal Measurements Intervals [place] Rate: 66 P: 42 SC: 196 QRS: -41 QRSD: 98 T: 108 QT: 484 QTc: 507 Interpretive Statements Normal sinus rhythm Left axis deviation LEFT ANTERIOR FASCICULAR BLOCK Inferior infarct , age undetermined Prolonged QT delayed r wave progression NONSPECIFIC ST T WAVE CHANGES cw 02/29/20 rate increased Electronically Signed on 06-06-2020 19:31:13 EST by Uri Mcneal
[2020-06-06 20:00] VITALS: BP 134/80
[2020-06-06] MEDS: ACETAMINOPHEN TAB 650MG DOSE (2X325MG) PO PRN (20:19)
[2020-06-06] MEDS: METOPROLOL TART 50 MG TAB PO SCH (20:20)
[2020-06-06] MEDS ORDERED: glipiZIDE (GLUCOTROL) 5 MG TAB PO SCH (21:00)
[2020-06-06] MEDS: CitaloPRAM (CeleXA) 10 MG TABLET PO SCH (21:15)
[2020-06-07] VITALS (13 sets, daily range): BP systolic 110–176; BP diastolic 62–93
[2020-06-07] MEDS: HEPARIN SOD (PORCINE) 5000UNITS/ML 1ML VIAL/SYRINGE SC SCH ×3 (02:24→20:32)
[2020-06-07] MEDS: ACETAMINOPHEN TAB 650MG DOSE (2X325MG) PO PRN ×2 (02:37→10:56)
[2020-06-07 05:18] LABS: BASO # 0.1 10^3/uL (0.0-0.2); BASO % 0.9 % (0.0-1.0); EOS # 0.3 10^3/uL (0.0-0.5); HEMATOCRIT 23.4 % (42.0-52.0); HEMOGLOBIN 7.4 g/dl (13.5-17.5); LYMPH % 14.9 % (24.0-44.0); MEAN CORPUSCULAR HEMOGLOBIN 32.6 pg (27.0-33.0); MEAN CORPUSCULAR HGB CONC 31.6 g/dl (32.0-36.5); MEAN CORPUSCULAR VOLUME 103.1 fl (80.0-96.0); MONO # 0.7 10^3/uL (0.0-0.8); MONO % 9.9 % (2.0-8.0); NEUTROPHILS # 4.9 10^3/uL (1.5-8.5); NEUTROPHILS % 69.7 % (36.0-66.0); PLATELET COUNT, AUTOMATED 140 10^3/uL (150-450); RED BLOOD COUNT 2.27 10^6/uL (4.30-6.10)
[2020-06-07 05:33] LABS: CALCIUM LEVEL 7.7 MG/DL (8.8-10.2); CREATININE FOR GFR 2.68 MG/DL (0.70-1.30); GLOMERULAR FILTRATION RATE 24.9 (>42); POTASSIUM SERUM 3.7 MEQ/L (3.5-5.1)
[2020-06-07] MEDS: FUROSEMIDE 100MG/10ML VIAL (J1940) IV SCH ×2 (08:13→17:15)
[2020-06-07] MEDS: METOPROLOL TART 50 MG TAB PO SCH ×2 (08:14→20:33)
[2020-06-07] MEDS: glipiZIDE (GLUCOTROL) 5 MG TAB PO SCH ×2 (08:14→17:21)
--- NOTE | 2020-06-07 10:19 | IPNPDOC ---
Text Note Date of Service The patient was seen on 06/07/20. NOTE Subjective: Patient seen and examined at bedside. No acute overnight events reported. Patient states he feels much better this morning. Denies shortness of breath. Objective: General: NAD, lying comfortably in bed HEENT: NC/AT, EOMI Lungs: CTA B/L Heart: +S1S2, RRR Abd: soft, NT, +BS Ext: trace edema, ulcer right big toe, left first/second toe, bandages in place A/P: 75 year old male with CAD s/p CABG, s/p AVR by bioprosthetic valve, PAD with rest pain and ischemic ulcers of legs, CKD stage 4, diabetes, Afib on coumadin, diastolic CHF h/o cardiac arrest in 2018 had a angiography done on 06/02/20 and was found to have occlusions of left distal SFA, left Tibial, left Popliteal arteries however angioplasty could not be done due to his INR being > 2.5. He was hydrated for the procedure with 1600 cc of NS in view of his CKD stage 4. He came back today for evaluation for possible angioplasty to be done if his INR was ok. His INR was at 1.29 but he was noted to be SOB and felt to be in CHF so was sent to the ED. Patient complained of increased swelling of both of his legs extending up to his thighs. He complained of shortness of breath, which he says is a chronic, but he feels that it has been more in the past couple days. He does not use oxygen at home. CXR presumed trapped fluid in the right major fissure creating pseudotumor appearance along with possible atelectasis and pulmonary vascular congestion. Patient was admitted for CHF exacerbation. #acute on chronic HFpEF exacerbation - transition to oral lasix - Fluid restriction 1500 mL, intake output, daily weights #Peripheral arterial disease with chronic ischemic foot ulcers - discussed with Dr. Beltran - ok to discharge home - anticipate intervention on - continue to hold coumadin - Patient was supposed to have an angioplasty and possible stent placement but was canceled because of some fluid overload - Wound care as per Dr. Mcclure's outpatient advice #CKD stage IV - Creatinine grossly at baseline - Had contrast dye - June 02 - nephro c/s pending #anemia - type and screen - possible transfusion today 2 PRBC - will f/u nephrology #HTN - continue metoprolol #Diabetes with neuropathy Will continue with Glipizide as per home regimen Patient is not taking gabapentin #Paroxysmal A. fib - Patient's Coumadin has been held in anticipation of the interventional radiology procedure will not restart Coumadin at present. #CAD status post CABG Continue beta christian the patient is not on statin. Tried several kinds but was having side effects so stopped. #Valvular heart disease History of severe aortic stenosis status post aortic valve replacement with bioprosthetic valve. Patient also has moderate mitral regurgitation #Depression. Continue Celexa #Recent diagnosis of Lewy body dementia and Parkinson's disease by [facility] neurology Patient says that he has good days and bad days and today was a good day not on any medications at present #Dysphagia level 2 mechanical soft diet with necter thick liquids. #DVT prophylaxis - heparin Dispo: nephrology c/s, PT/OT eval, anticipate d/c in 24 hours VS,Fishbone, I+O VS, Fishbone, I+O Laboratory Tests 06/06/20 10:38 06/07/20 04:55 Vital Signs Date Time Temp Pulse Resp B/P (MAP) Pulse Ox O2 Delivery O2 Flow Rate FiO2 06/07/20 07:23 97.3 73 18 137/66 (89) 92 Room Air I&O- Last 24 Hours up to 6 AM 06/07/20 06:00 Intake Total 0 ml Output Total 2250 ml Balance -2250 ml ALPHONSO HAMILTON MD Jun 07, 2020 10:19
[2020-06-07 10:59] LABS: CK-MB VALUE MASS 6.5 NG/ML (<3.6); MB/CK RELATIVE INDEX 6.25 (< OR =4); TROPONIN I 0.04 NG/ML (< 0.10)
[2020-06-07] MEDS: CitaloPRAM (CeleXA) 10 MG TABLET PO SCH (20:32)
[2020-06-08] VITALS: BP 170/77
[2020-06-08 04:00] VITALS: BP 160/85
[2020-06-08 04:33] LABS: BASO # 0.1 10^3/uL (0.0-0.2); BASO % 0.7 % (0.0-1.0); EOS # 0.3 10^3/uL (0.0-0.5); EOS % 3.8 % (0.0-3.0); HEMATOCRIT 29.7 % (42.0-52.0); LYMPH % 14.2 % (24.0-44.0); MEAN CORPUSCULAR HEMOGLOBIN 31.9 pg (27.0-33.0); MEAN CORPUSCULAR VOLUME 99.7 fl (80.0-96.0); MONO # 0.6 10^3/uL (0.0-0.8); MONO % 8.7 % (2.0-8.0); NEUTROPHILS # 4.9 10^3/uL (1.5-8.5); NEUTROPHILS % 72.2 % (36.0-66.0); PLATELET COUNT, AUTOMATED 141 10^3/uL (150-450); RED BLOOD COUNT 2.98 10^6/uL (4.30-6.10); WHITE BLOOD COUNT 6.8 10^3/uL (4.0-10.0)
[2020-06-08 04:42] LABS: HEMOGLOBIN 9.5 g/dl (13.5-17.5)
[2020-06-08 04:55] LABS: CALCIUM LEVEL 8.6 MG/DL (8.8-10.2); CREATININE FOR GFR 2.63 MG/DL (0.70-1.30); GLOMERULAR FILTRATION RATE 25.4 (>42); POTASSIUM SERUM 4.1 MEQ/L (3.5-5.1)
[2020-06-08 08:00] VITALS: BP 140/62
[2020-06-08 09:12] VITALS: BP 140/62
[2020-06-08] MEDS: METOPROLOL TART 50 MG TAB PO SCH (09:12)
[2020-06-08] MEDS: FUROSEMIDE 100MG/10ML VIAL (J1940) IV SCH (09:12)
[2020-06-08] MEDS: glipiZIDE (GLUCOTROL) 5 MG TAB PO SCH (09:13)
--- NOTE | 2020-06-08 09:42 | ECHO ---
DATE OF PROCEDURE: 06/07/2020 Age: 75 Gender: Male Height: 177 cm Weight: 92 kg REFERRING PHYSICIAN: Dr. Catie Zambrano. INDICATION: Congestive heart failure. MEASUREMENTS: IVS 1.4 cm LV 4.3 cm LVPW 1.3 cm LA 5.3 cm IVC 2.2 cm Mitral E wave velocity 143 A wave 44 E prime septal 4.6 E prime lateral 8.3 FINDINGS: This study is of acceptable technical quality. Underlying sinus rhythm with heart rate around 65-70 beats per minute with wide QRS complex. Left ventricle is normal size. Mild left ventricular hypertrophy is present. Overall there is hyperdynamic LV systolic function with estimated LVEF approximately 70%. I do not appreciate any distinct segmental wall motion abnormalities. Right ventricle is mildly dilated and appears at least mildly hypokinetic. There is biatrial enlargement. Aortic valve is sclerotic, but it is tricuspid and has a preserved mobility. There are very prominent degenerative abnormalities of mitral valve with very prominent mitral annular calcifications and thickening of mitral leaflets. Mobility appears to be grossly preserved at least in anterior mitral leaflet. Posterior mitral leaflet appears to have at least mildly limited motion. Tricuspid valve appears normal. Pulmonic valve was not seen. No pericardial effusion was noted. Inferior vena cava is dilated, and there is no appreciable collapse with inspiration indicative of very high central venous pressure. Aortic root is normal. Aortic arch and abdominal aorta were poorly visualized. Doppler interrogation of aortic valve reveals trivial stenosis with mean gradient 5 mmHg and no insufficiency. There is mild mitral stenosis (mean gradient 3 mmHg) and mild to moderate mitral insufficiency. Mild to moderate tricuspid insufficiency is seen. Calculated pulmonary artery pressure is at least in 60-65 mmHg range corresponding to moderately severe pulmonary hypertension. Trace pulmonic insufficiency is seen. Mitral inflow pattern on tissue Doppler imaging of mitral annulus revealed grade 2 diastolic dysfunction. CONCLUSIONS: 1. Study is of fair technical quality, underlying sinus rhythm with wide QRS complex and heart rate approximately 65-70 BPM. 2. Normal LV size with mild LVH, hyperdynamic LV systolic function, estimated LVEF approximately 65-70%. Grade 2 diastolic dysfunction. 3. Dilated hypokinetic right ventricle. 4. Biatrial enlargement. 5. Aortic sclerosis with trivial stenosis and no insufficiency. 6. Very prominent degenerative abnormalities of mitral valve with mitral annular calcifications resulting in mild to moderate insufficiency and mild mitral stenosis. 7. Mild to moderate tricuspid insufficiency. 8. Very high central venous pressure and likely moderately severe pulmonary hypertension (estimated PAP approximately 65 mmHg). MTDD
--- NOTE | 2020-06-09 10:30 | DS.PDOC ---
Discharge Summary General Date of Admission Jun 06, 2020 at 13:13 Date of Discharge 06/08/20 Discharge Summary PROCEDURES PERFORMED DURING STAY: [None]. DISCHARGE DIAGNOSES: #acute on chronic HFpEF exacerbation #Peripheral arterial disease with chronic ischemic foot ulcers #CKD stage IV #anemia #HTN #Diabetes with neuropathy #Paroxysmal A. fib #CAD status post CABG #Valvular heart disease #Depression. #Recent diagnosis of Lewy body dementia and Parkinson's disease by [facility] neurology #Dysphagia COMPLICATIONS/CHIEF COMPLAINT: Short Of Breath. HISTORY OF PRESENT ILLNESS: 75 year old male with CAD s/p CABG, s/p AVR by bioprosthetic valve, PAD with rest pain and ischemic ulcers of legs, CKD stage 4, diabetes, Afib on coumadin, diastolic CHF h/o cardiac arrest in 2018 had a angiography done on 06/02/20 and was found to have occlusions of left distal SFA, left Tibial, left Popliteal arteries however angioplasty could not be done due to his INR being > 2.5. He was hydrated for the procedure with 1600 cc of NS in view of his CKD stage 4. He came back today for evaluation for possible angioplasty to be done if his INR was ok. His INR was at 1.29 but he was noted to be SOB and felt to be in CHF so was sent to the ED. Patient complained of increased swelling of both of his legs extending up to his thighs. He complained of shortness of breath, which he says is a chronic, but he feels that it has been more in the past couple days. He does not use oxygen at home. CXR presumed trapped fluid in the right major fissure creating pseudotumor appearance along with possible atelectasis and pulmonary vascular congestion. Patient was admitted for CHF exacerbation. HOSPITAL COURSE: #acute on chronic HFpEF exacerbation - transitioned to oral lasix - Fluid restriction 1500 mL, intake output, daily weights #Peripheral arterial disease with chronic ischemic foot ulcers - discussed with Dr. Beltran - ok to discharge home - anticipate intervention on - continue to hold coumadin - Patient was supposed to have an angioplasty and possible stent placement but was canceled because of some fluid overload - Wound care as per Dr. Mcclure's outpatient advice #CKD stage IV - Creatinine grossly at baseline - Had contrast dye - June 02 - nephro c/s appreciated #anemia - s/p 2 units PRBC #HTN - continue metoprolol #Diabetes with neuropathy Will continue with Glipizide as per home regimen Patient is not taking gabapentin #Paroxysmal A. fib - Patient's Coumadin has been held in anticipation of the interventional radiology procedure will not restart Coumadin at present. #CAD status post CABG Continue beta christian the patient is not on statin. Tried several kinds but was having side effects so stopped. #Valvular heart disease History of severe aortic stenosis status post aortic valve replacement with bioprosthetic valve. Patient also has moderate mitral regurgitation #Depression. Continue Celexa #Recent diagnosis of Lewy body dementia and Parkinson's disease by [facility] neurology Patient says that he has good days and bad days and today was a good day not on any medications at present #Dysphagia level 2 mechanical soft diet with nectar thick liquids. DISCHARGE MEDICATIONS: Please see below. ALLERGIES: Please see below. PHYSICAL EXAMINATION ON DISCHARGE: VITAL SIGNS: Please see below. General: NAD, lying comfortably in bed HEENT: NC/AT, EOMI Lungs: CTA B/L Heart: +S1S2, RRR Abd: soft, NT, +BS Ext: trace edema, ulcer right big toe, left first/second toe, bandages in place LABORATORY DATA: Please see below. ACTIVITY: [As tolerated]. DISPOSITION: Home, Self-Care. DISCHARGE INSTRUCTIONS: 1. Follow up with PCP in 3-5 days. 2. Follow up with IR as scheduled 06/09/20 for procedure 3. Resume coumadin as per IR instruction with PCP DISCHARGE CONDITION: [Stable]. TIME SPENT ON DISCHARGE: 35 minutes. Vital Signs/I&Os Vital Signs Date Time Temp Pulse Resp B/P (MAP) Pulse Ox O2 Delivery O2 Flow Rate FiO2 06/08/20 09:12 71 140/62 06/08/20 08:00 98.6 16 97 Room Air I&O- Last 24 Hours up to 6 AM 06/09/20 06:00 Intake Total 120 ml Balance 120 ml Microbiology Microbiology 06/06/20 Respiratory Virus Panel (PCR) (MANDIE) - Final, Complete 06/06/20 Blood Culture - Preliminary, Resulted No Growth after 48 hours. All Specime... 06/06/20 Blood Culture - Preliminary, Resulted No Growth after 48 hours. All Specime... Discharge Medications Scheduled Cholecalciferol (Vitamin D3) (Vitamin D3) 50 Mcg Capsule, 2,000 UNITS PO DAILY, (Reported) TAKES AT NOON Citalopram Hydrobromide (Citalopram HBr) 20 Mg Tab, 10 MG PO QHS, (Reported) Collagenase Clostridium Hist. (Santyl) 30 Gm Oint...g., 1 APPLIC TOP DAILY, (Reported) APPLY TO FEET Echinacea (Echinacea) 380 Mg Cap, 380 MG PO DAILY, (Reported) Glipizide (Glipizide) 10 Mg Tab, 10 MG PO QAM, (Reported) Glipizide (Glipizide) 10 Mg Tablet, 5 MG PO QPM, (Reported) Metoprolol Tartrate (Metoprolol Tartrate) 50 Mg Tab, 50 MG PO BID, (Reported) Polyethylene Glycol 3350 (Miralax) 119 Gm Powder, 17 GM PO QHS, (Reported) HOLD FOR DIARRHEA Potassium Gluconate (Potassium) 99 Mg Tablet, 595 MG PO DAILY, (Reported) TAKES AT 1200 Scheduled PRN Acetaminophen (Tylenol Extra Strength) 500 Mg Tablet, 1,000 MG PO Q6H PRN for PAIN, (Reported) Torsemide (Torsemide) 20 Mg Tablet, 20 MG PO DAILY PRN for EDEMA, (Reported) Miscellaneous Medications [Comments] , (Reported) PT WAS TOLD TO STOP WARFARIN 05/31/20 BY DOCTOR BECAUSE OF PROCEDURE SCHEDULED FOR 06/09/20 Allergies Coded Allergies: [place] (Verified Allergy, Severe, ANAPHYLAXIS, 11/09/14) Penicillins (Verified Allergy, Severe, Anaphylaxis, 02/17/20) HAS RECEIVED 2nd & 3RD GEN CEPHALOSPORINS w/o PROBLEM metformin (Verified Allergy, Severe, Tongue swelling, 07/02/18) Nymneui-Fzc-Wjr Reductase Inhibitor (Verified Adverse Reaction, Intermediate, Altered Mental Status, 07/02/18) codeine (Verified Adverse Reaction, Mild, "out of it". , 02/17/20) mixed with guifenasin duloxetine (Unverified Adverse Reaction, Mild, Nausea and vomiting, 07/02/18) clindamycin (Verified Adverse Reaction, Unknown, DIARRHEA, 02/29/20) ALPHONSO HAMILTON MD Jun 09, 2020 10:30
--- NOTE | 2020-06-09 10:31 | IPN ---
INPATIENT PROGRESS NOTE DATE: 06/08/2020 SUBJECTIVE: Patient seen and examined this morning at the bedside. He offers no complaints. No shortness of breath, no dyspnea with exertion. Reports his legs are back to their usual state. He is discharge pending with a plan to see interventional radiology for a probable angioplasty on . He received 2 units of packed red blood cells yesterday. PHYSICAL EXAMINATION: Vital signs: Temperature 98.6, pulse 71, respiratory rate 16, blood pressure 140/62, saturating 97% on room air. Intake yesterday was 2 liters. Urine output yesterday was 2 liters. Urine output thus far today is more than 1 liter. Weight on the bed scale today is not recorded. General: Patient is seen sitting out of bed to the chair, awake, alert, oriented and in no apparent distress. HEENT: Extraocular muscles are intact. Tongue is moist. Neck: Supple. There is a healed midline sternal old scar. Jugular veins are not elevated. Heart: Sounds are regular S1 and S2. There is a systolic murmur. Lungs: Clear to auscultation bilaterally. He is seen comfortable on room air. Abdomen: Soft and nontender, there are bowel sounds. Extremities: Show trace edema bilaterally and there are bandages and dressings over his toes. Neurologic: He is oriented times 3, interactive and at baseline mentation. LABORATORY DATA: Laboratory studies today show sodium 144, potassium 4.1, bicarbonate 24, BUN 53, creatinine 2.6. Hemoglobin 9.5. INPATIENT MEDICATIONS: Unchanged as compared to yesterday. PROBLEMS/PLAN: 1. CKD stage 4: Patient is at his baseline renal function. He was diuresed with I.V. Lasix the past two days and his volume status is much improved. He can now go back to his usual home diuretic regimen of torsemide 20 mg daily as needed for leg edema. He is going to have further contrast based procedure likely on with fluid administration to reduce risk of contrast nephropathy. 2. Diastolic congestive heart failure status post recent exacerbation, status post Lasix 80 mg I.V. twice a day: Now okay to transition back to his usual home diuretic regimen of torsemide 20 mg daily p.r.n. leg edema and he will continue on his usual moderate fluid restriction and it is okay for him to receive kevin-contrast I.V. fluids. 3. Anemia related to chronic renal failure: He received 2 units of packed red blood cells yesterday. His hemoglobin has come up nicely. He will likely need to start LALITHA therapy from the nephrology office. 4. Hypertension: Continue metoprolol. Blood pressure well controlled. 5. Paroxysmal atrial fibrillation: Coumadin has been on-hold in view of planned IR procedure likely to be on . 6. Disposition: Patient is suitable for discharge from a nephrology point of view and will follow up in the office within one week.
== END 2020-06-08 13:27 | disposition home or self-care (01) | DRG 291 ==
LOC: M ED 09:55 → M ED INP 13:13 → M PCU 14:46
PROVIDERS: ADMIT Internal Medicine Nephrology; ATTEND Internal Medicine
PROC: 30233N1 Transfusion of Nonautologous Red Blood Cells into Peripheral Vein, Percutaneous Approach (ICD-10-PCS; principal; 2020-06-07)
DX: I13.0 Hypertensive heart and chronic kidney disease with heart failure and stage 1 through stage 4 chronic kidney disease, or unspecified chronic kidney disease (principal); I50.33 Acute on chronic diastolic (congestive) heart failure; N18.4 Chronic kidney disease, stage 4 (severe); I70.203 Unspecified atherosclerosis of native arteries of extremities, bilateral legs; I48.0 Paroxysmal atrial fibrillation; D64.9 Anemia, unspecified; I25.10 Atherosclerotic heart disease of native coronary artery without angina pectoris; F32.9 Major depressive disorder, single episode, unspecified; E11.51 Type 2 diabetes mellitus with diabetic peripheral angiopathy without gangrene; I70.25 Atherosclerosis of native arteries of other extremities with ulceration; G20 Parkinson's disease; G31.83 Neurocognitive disorder with Lewy bodies; F02.80 Dementia in other diseases classified elsewhere, unspecified severity, without behavioral disturbance, psychotic disturbance, mood disturbance, and anxiety; R13.10 Dysphagia, unspecified; I70.223 Atherosclerosis of native arteries of extremities with rest pain, bilateral legs; I08.0 Rheumatic disorders of both mitral and aortic valves; Z95.2 Presence of prosthetic heart valve; Z79.899 Other long term (current) drug therapy; Z88.0 Allergy status to penicillin; Z91.018 Allergy to other foods; Z88.5 Allergy status to narcotic agent; Z88.8 Allergy status to other drugs, medicaments and biological substances; G47.33 Obstructive sleep apnea (adult) (pediatric); Z86.73 Personal history of transient ischemic attack (TIA), and cerebral infarction without residual deficits; Z98.41 Cataract extraction status, right eye; Z98.42 Cataract extraction status, left eye; Z85.820 Personal history of malignant melanoma of skin; Z89.422 Acquired absence of other left toe(s); I27.20 Pulmonary hypertension, unspecified

== ENCOUNTER → 2020-06-06 | Outpatient (CLI) | payer MEDICARE, MEDICAID ==
[~2020-06-06] MED LIST changes: +ASPI-569 PO; -ASPI81TAEC PO; +DEXT4TAB2 PO; -GLUC4CHW19 PO; -ISOVUE-300 61% 50ML VIAL As Ordered ONE; -LIDOCAINE 1% MDV 20ML VIAL As Ordered ONE; -MIDAZOLAM INJ 2MG/2ML VIAL (J2250 PER 1MG) As Ordered ONE; -PROMETHAZINE INJ 25 MG/ML VIAL (J2550) As Ordered ONE; -diphenhydrAMINE 50MG/ML VIAL (J1200) As Ordered ONE; -fentaNYL 100 MCG/2 ML INJECTION (J3010) As Ordered ONE
[2020-06-06 08:50] VITALS: BP 158/76
[2020-06-06 09:27] LABS: HEMATOCRIT 26.2 % (42.0-52.0); HEMOGLOBIN 8.2 g/dl (13.5-17.5); MEAN CORPUSCULAR HEMOGLOBIN 33.1 pg (27.0-33.0); MEAN CORPUSCULAR HGB CONC 31.3 g/dl (32.0-36.5); MEAN CORPUSCULAR VOLUME 105.6 fl (80.0-96.0); PLATELET COUNT, AUTOMATED 158 10^3/uL (150-450); RED BLOOD COUNT 2.48 10^6/uL (4.30-6.10); WHITE BLOOD COUNT 10.1 10^3/uL (4.0-10.0)
[2020-06-06 09:36] LABS: INR 1.29; PROTHROMBIN TIME 16.4 SECONDS (12.5-14.3)
[2020-06-06 09:56] LABS: CALCIUM LEVEL 8.7 MG/DL (8.8-10.2); CREATININE FOR GFR 2.67 MG/DL (0.70-1.30); POTASSIUM SERUM 4.2 MEQ/L (3.5-5.1)
--- NOTE | 2020-06-09 00:56 | CR ---
INPATIENT CONSULTATION DATE: 06/07/2020 REQUESTING PHYSICIAN: Dr. Jl Romero. REASON FOR CONSULTATION: Diuretic management in this patient with CKD stage 4 and history of diastolic congestive heart failure. HISTORY OF PRESENT ILLNESS: Mr. Bernard is a 75-year-old male, office patient of Dr. Monroe Mckeon, with a past medical history of CKD stage 4, CAD; status post CABG, aortic stenosis; status post aortic valve replacement, peripheral arterial disease with rest pain and ischemic ulcers of his legs, diabetes mellitus type 2, atrial fibrillation on Coumadin, diastolic congestive heart failure with history of cardiac arrest in 2018, that was also complicated by acute renal failure requiring temporary hemodialysis. Patient had an angiography done recently on June 02, 2020, and was found to have occlusions of his left distal superior femoral artery, left tibial and left popliteal arteries. Patient came back on June 06 for reevaluation for possible angioplasty to be done after holding Coumadin. His INR was found to be acceptable, however, patient was short of breath and found to be in decompensated congestive heart failure and so interventional radiology sent him to the Emergency Room for further evaluation. Patient was admitted for CHF exacerbation. He was also found to be severely anemic with hemoglobin down to 7.4 on the latest labs and he was started on Lasix diuresis and nephrology evaluation was requested. Patient is seen and examined today at the bedside and he reports his shortness of breath and peripheral edema are much improved since being on I.V. Lasix and he offers no complaints. PAST MEDICAL AND SURGICAL HISTORY: CKD stage 4, anemia of chronic renal failure, secondary hyperparathyroidism of renal origin, CAD; status post CABG, aortic stenosis; status post bioprosthetic aortic valve replacement, peripheral arterial disease with history of multiple angioplasties, type 2 diabetes mellitus, atrial fibrillation, diastolic congestive heart failure, history of cardiac arrest, history of temporary hemodialysis, Permacath placement and removal, obstructive sleep apnea, moderate mitral regurgitation, moderate to severe pulmonary hypertension, Lewy Body dementia, Parkinson's disease, dysphagia, history of recurrent right pleural effusions with several chest tubes in the past, history of tracheostomy and feeding tube, history of critical illness myopathy, history of multiple strokes, history of multifocal MRSA pneumonia, bilateral rib fractures, squamous cell carcinoma of the skin, depression, bilateral cataract surgeries and lens implant, malignant melanoma and chronic hoarseness after laryngeal injury during a procedure, left fifth toe amputation, right fifth toe amputation. ALLERGIES: [place], penicillin, statins, Clindamycin, Codeine, Duloxetine, Metformin. FAMILY HISTORY: Heart disease and diabetes. SOCIAL HISTORY: He is an ex-smoker. No alcohol. No drugs. HOME MEDICATIONS: Reviewed by myself. Vitamin D3, Citalopram, Echinacea, Glipizide, Metoprolol, MiraLax, Coumadin and Torsemide 20 mg p.o. daily p.r.n. edema. REVIEW OF SYSTEMS: CONSTITUTIONAL: He reports fatigue. He denies fevers. EYES: He reports history of cataract. He denies vision changes. ENT: Denies headache, ear pain, dysphagia. He reports chronic voice hoarseness. CARDIAC: He reports improvement in leg swelling. He denies chest pain. RESPIRATORY: He reports improvement in shortness of breath. He denies cough. GASTROINESTINAL: He denies nausea, vomiting, diarrhea. GENITOURINARY: He denies dysuria, hematuria. ENDOCRINE: He reports diabetes and secondary hyperparathyroidism. HEMATOLOGIC: He reports anemia and 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 use. MUSCULOSKELETAL: He reports leg pain. NEUROLOGIC: Has history of strokes. Denies syncope. PSYCHIATRIC: He reports depression. The remainder of review of systems is negative or as per HPI. PHYSICAL EXAMINATION: VITAL SIGNS: Temperature 98.0, pulse 70, respiratory rate 18, blood pressure 146/69, saturating 99% on room air. INTAKE AND OUTPUT: Urine output yesterday was 2.2 liters. GENERAL: Patient is seen sitting in bed, elderly male, awake, alert, oriented and in no apparent distress. HEENT: Extraocular muscles are intact. Sclerae are anicteric. Tongue is moist. Neck is supple. Jugular veins are mildly elevated. HEART: Sounds are regular S1, S2 with a systolic murmur. There is trace leg edema. LUNGS: Symmetric and diminished without crackles or rales. ABDOMEN: Soft and nontender. There are bowel sounds. EXTREMITIES: His feet ulcers are not examined. There is trace leg edema bilaterally. There is no cyanosis. GENITOURINARY: The bladder is not distended and not palpable. NEUROLOGIC: He is oriented x3. No focal deficit. He has a hoarse voice. LABORATORY DATA: Sodium 144, potassium 3.7, bicarbonate 21, BUN 53, creatinine 2.6. BNP 7800. Hemoglobin 7.4, platelets 140,000. Blood cultures no growth for 24 hours times two sets. IMAGING: Chest x-ray done yesterday shows presumed trapped fluid in the right major fissure. No definite effusion. INPATIENT MEDICATIONS: Tylenol p.r.n., Celexa 10 mg p.o. q.h.s., Lasix 80 mg I.V. b.i.d., Glipizide 5 mg q.p.m. and 10 mg q.a.m., Heparin 5,000 units subcutaneously every 12 hours, Metoprolol 50 mg p.o. b.i.d. PROBLEMS: 1. Diastolic congestive heart failure with exacerbation: Patient is in exacerbation secondary to I.V. fluid he was given kevin-contrast exposure to reduce the risk of dye induced nephropathy. He has been on Lasix 80 mg I.V. b.i.d. for the past day with good affect and has diuresed nicely and his volume status is improving. I would continue the current diuretic regimen for another day along with 1,500 cc fluid restriction. At home, he only takes Torsemide 20 mg on an as needed basis. 2. CKD stage 4: Creatinine is at known baseline. Patient is in a mild CHF exacerbation, but is diuresing nicely with stable renal function. Continue Lasix 80 mg I.V. b.i.d. He is going to have another dose of contrast exposure with plan for angioplasty later this week and he needs to be optimized for that. 3. Anemia of chronic renal failure: Patient's hemoglobin is very low at 7.4, severe anemia is a risk factor for dye induced nephropathy. The patient is going to have another contrast procedure later this week. Please transfuse 2 units packed red blood cells today and he will receive another dose of 80 mg I.V. Lasix this evening. In the outpatient nephrology office, he will likely need to start Erythropoietin stimulating agent. 4. Peripheral arterial disease with chronic ischemic foot ulcers: Patient has had two recent cancelled angioplasties; the first time it was cancelled because his INR was high and the second time it was cancelled because he was in fluid overload. He is supposed to be rescheduled at the end of this week. He needs to be optimized for contrast exposure. He is being given 2 units packed red blood cells today and his volume status is improved as compared to yesterday. 5. Paroxysmal atrial fibrillation: Coumadin is on hold in view of planned angioplasty and patient is rate controlled with Metoprolol. Thank you for involving me in the care of Mr. Bernard. I will be happy to follow him along with you.
== END ==
LOC: M IRPRO 08:13
PROVIDERS: ATTEND Radiology Diagnostic Radiology
DX: I73.9 Peripheral vascular disease, unspecified (principal)

== ENCOUNTER → 2020-06-09 | Outpatient (CLI) | payer MEDICARE, MEDICAID ==
[~2020-06-09] MED LIST changes: +COMMENTS; +ISOVUE-300 61% 50ML VIAL As Ordered ONE; +LIDOCAINE 1% MDV 20ML VIAL As Ordered ONE; +MIDAZOLAM INJ 2MG/2ML VIAL (J2250 PER 1MG) As Ordered ONE; +NITROGLYCERIN IN D5W 25MG/250ML (100MCG/ML) As Ordered ONE; +SANT250O8 TOP; +diphenhydrAMINE 50MG/ML VIAL (J1200) As Ordered ONE; +fentaNYL 100 MCG/2 ML INJECTION (J3010) As Ordered ONE
--- NOTE | 2020-06-09 09:57 | IRHP ---
[facility] IR Pre-Procedure H & P General Date of Service: Jun 09, 2020 Procedure: Same Day Surgery Interval History and Physical I have seen the patient and reviewed last H & P performed within 30 days. Patient can speak in sentences without shortness of breath. No respiratory difficulty at rest. Bilateral lower extremity pitting edema at baseline to the knees. Patient is stable for procedure. History of Present Illness Chief Complaint The patient is a 75-year-old male admitted with a reason for visit of PAD. PRE-PROCEDURE DIAGNOSIS: PAD HEART: Normal rate. LUNGS: Normal breathing at rest. ASA Classification ASA Classification: III-Severe systemic dis. Mallampati Score: II NPO: Yes Problems with prior sedation: No Obstructive Sleep Apnea: No Plan moderate sedation Allergies Coded Allergies: [place] (Verified Allergy, Severe, ANAPHYLAXIS, 11/09/14) Penicillins (Verified Allergy, Severe, Anaphylaxis, 02/17/20) HAS RECEIVED 2nd & 3RD GEN CEPHALOSPORINS w/o PROBLEM metformin (Verified Allergy, Severe, Tongue swelling, 07/02/18) Qyxmmia-Jnc-Lcd Reductase Inhibitor (Verified Adverse Reaction, Intermediate, Altered Mental Status, 07/02/18) codeine (Verified Adverse Reaction, Mild, "out of it". , 02/17/20) mixed with guifenasin duloxetine (Unverified Adverse Reaction, Mild, Nausea and vomiting, 07/02/18) clindamycin (Verified Adverse Reaction, Unknown, DIARRHEA, 02/29/20) Home Medications Scheduled Cholecalciferol (Vitamin D3) (Vitamin D3), 2,000 UNITS PO DAILY, (Reported) Citalopram Hydrobromide (Citalopram HBr), 10 MG PO QHS, (Reported) Collagenase Clostridium Hist. (Santyl), 1 APPLIC TOP DAILY, (Reported) Echinacea (Echinacea), 380 MG PO DAILY, (Reported) Glipizide (Glipizide), 10 MG PO QAM, (Reported) Glipizide (Glipizide), 5 MG PO QPM, (Reported) Metoprolol Tartrate (Metoprolol Tartrate), 50 MG PO BID, (Reported) Polyethylene Glycol 3350 (Miralax), 17 GM PO QHS, (Reported) Potassium Gluconate (Potassium), 595 MG PO DAILY, (Reported) Scheduled PRN Acetaminophen (Tylenol Extra Strength), 1,000 MG PO Q6H PRN for PAIN, (Reported) Torsemide (Torsemide), 20 MG PO DAILY PRN for EDEMA, (Reported) Miscellaneous Medications [Comments], (Reported) Discontinued Medications Warfarin Sodium (Warfarin Sodium), 4 MG PO 5XW, (Reported) Warfarin Sodium (Warfarin Sodium), 2 MG PO 2XW, (Reported) VS, I&O, 24H, Fishbone Vital Signs/I&O Vital Signs Date Time Temp Pulse Resp B/P (MAP) Pulse Ox O2 Delivery O2 Flow Rate FiO2 06/09/20 09:30 98.1 69 22 93 Room Air LESLIE DEL VALLE MD Jun 09, 2020 09:57
[2020-06-09 10:19] LABS: HEMATOCRIT 32.8 % (42.0-52.0); HEMOGLOBIN 10.6 g/dl (13.5-17.5); MEAN CORPUSCULAR HEMOGLOBIN 32.3 pg (27.0-33.0); MEAN CORPUSCULAR HGB CONC 32.3 g/dl (32.0-36.5); PLATELET COUNT, AUTOMATED 174 10^3/uL (150-450); RED BLOOD COUNT 3.28 10^6/uL (4.30-6.10); WHITE BLOOD COUNT 8.1 10^3/uL (4.0-10.0)
[2020-06-09 10:33] LABS: INR 1.12; PROTHROMBIN TIME 14.6 SECONDS (12.5-14.3)
[2020-06-09 10:42] LABS: CALCIUM LEVEL 9.3 MG/DL (8.8-10.2); CREATININE FOR GFR 2.75 MG/DL (0.70-1.30); GLOMERULAR FILTRATION RATE 24.1 (>42); POTASSIUM SERUM 4.3 MEQ/L (3.5-5.1)
--- NOTE | 2020-06-09 15:40 | POST-OPPD ---
Postoperative Procedure Note Date Of Procedure: Jun 09, 2020 Time Of Procedure: 15:19 IR Left leg angiogram. IR Left below-knee runoff arteriogram. IR Ultrasound-guided right common femoral artery access. IR Left peroneal artery angioplasty. IR Left popliteal artery angioplasty. IR Moderate sedation. Clinical Information:Nonhealing left lower extremity wounds. Diagnostic angiogram was performed on the prior visit. Patient presents for intervention. Physician: Dr. Tafoya. Procedure: The patient was advised of the benefits, risks, and alternatives of the procedure and informed consent was obtained. A time out was performed with verification of the patient's name, MRN, site of procedure, and type of procedure to be performed. The patient was positioned in the supine position on the angiographic table. The site was prepped and draped in the usual sterile fashion. Moderate sedation was performed by the physician including the presence of an independent trained RN, who assisted in monitoring the patient's level of consciousness and physiological status. Following the administration of fentanyl and Versed, the physician spent 150 minutes of continuous dlel-nf-kllo time with the patient. A special forces communications sergeant radiograph reveals no gross abnormality. Ultrasound of the right groin demonstrates patent right common femoral artery. Lidocaine was used for local anesthesia. The right common femoral artery was accessed, under ultrasound guidance with a microintroducer set. A short 0.018" [place] wire was inserted and the needle was exchanged for a 4 Fr microintroducer sheath. The guidewire and dilator were removed and a 0.035" [place] wire was advanced under fluoroscopic guidance and placed into the abdominal aorta. A 6 Fr sheath was placed over the wire. An Omni Flush catheter was advanced over the wire under fluoroscopy guidance and used to catheterize the infrarenal abdominal aorta. The catheter in conjunction with the wire was used under fluoroscopy guidance to gain up in over access into the left common iliac artery. The catheter was exchanged over the wire for a glide cath. The Glidecath in conjunction with the wire was used to catheterize the left common iliac artery. Small volume injection of contrast was performed and this demonstrate successful intraluminal catheterization of the left common iliac artery, patent internal and external iliac artery. The catheter in conjunction with the wire was used to catheterize the left superficial femoral artery. Injection of contrast confirms successful catheterization of the left superficial femoral artery. An angiogram was performed through the catheter located in the proximal SFA. This demonstrates patent mid and distal SFA. Focal areas of stenoses in the popliteal artery were again identified. Below-knee arterial runoff was performed which demonstrate complete occlusion of the anterior and posterior tibial artery. Multifocal stenosis in the peroneal artery. The catheter was exchanged over the wire for an 035 [place] catheter. The [place] catheter and and wire were used under fluoroscopy guidance to try to recanalize the anterior tibial artery. Intermittent injection of contrast confirmed intraluminal location. After multiple attempts, multiple wires and catheters were tried however the anterior tibial artery could not be recanalized. The catheter was retracted and with the wire was then used to try to recanalize the posterior tibial artery. Multiple catheter and wire combinations were used but the posterior tibial artery could not be recanalized. The catheter was exchanged over the wire for an 018 Navicross system. The Navicross catheter and wire were then used to try to recanalize the anterior tibial artery and posterior tibial artery without success. The 018 system was then used under fluoroscopy guidance to catheterize the peroneal artery. Intermittent injection of contrast confirmed intraluminal location. The mid and distal peroneal artery was catheterized successfully. A 2.5 x 220 mm angioplasty balloon was then advanced over the wire under fluoroscopy guidance and positioned in the tibia peroneal trunk and proximal peroneal artery. Angioplasty was performed. Heparin was administered. The balloon was deflated and positioned in the mid and distal peroneal artery. Angioplasty was performed. The balloon was deflated and removed over the wire. The catheter was advanced over the wire under fluoroscopic guidance and positioned in the popliteal artery. a post angioplasty follow-up arteriogram was performed which demonstrates improved flow through the peroneal artery and resolution of stenosis in the peroneal artery. The catheter was removed over the wire. A 6 x 200 mm [place] balloon was advanced over the wire under fluoroscopy guidance and positioned in the distal SFA and popliteal artery. Angioplasty was performed. The balloon was deflated and removed of the wire. A follow-up arteriogram was performed through the groin sheath. This demonstrate improved flow through the distal SFA and popliteal artery with no residual popliteal artery stenosis. Good flow in the peroneal artery proximal, mid and distal. No extravasation, vessel spasm or distal cutoff. The catheter, wire and sheath were removed. A Mynx device was used to close the arteriotomy. Pressure held and hemostasis achieved. A sterile dressing was applied to the site. The patient tolerated the procedure well and was returned to the PRU in stable condition. EBL: < 5 mL. Complications:None. Impression: 1. Left leg angiogram demonstrates patent inflow but multifocal popliteal artery stenoses. 2. Occluded anterior tibial and posterior tibial artery and multifocal stenosis in the tibia peroneal trunk and peroneal artery. 3. Unsuccessful recanalization of anterior or posterior tibial artery. 4. Successful angioplasty of popliteal artery with resolution of stenosis 5. Successful angioplasty of tibioperoneal trunk and peroneal artery with resolution of stenosis and improved single vessel flow to the left foot. Thank you for this referral Cc LESLIE Whitmore MD Jun 09, 2020 15:39
[2020-06-09 16:30] VITALS: BP 169/90
== END ==
LOC: M IRPRO 09:18
PROVIDERS: ATTEND Radiology Diagnostic Radiology
DX: I70.249 Atherosclerosis of native arteries of left leg with ulceration of unspecified site (principal); L97.829 Non-pressure chronic ulcer of other part of left lower leg with unspecified severity; I70.92 Chronic total occlusion of artery of the extremities; Z79.899 Other long term (current) drug therapy; Z88.0 Allergy status to penicillin; Z88.1 Allergy status to other antibiotic agents; Z88.5 Allergy status to narcotic agent; Z88.8 Allergy status to other drugs, medicaments and biological substances; Z91.018 Allergy to other foods
CPT/HCPCS: 37224; 37228; 75710; 80048; 85027; 85610; 99152; 99153; C1725; C1729; C1760; C1769; C1887; C1894; J1200; J1644; J2250; J3010; Q9967

== ENCOUNTER → 2020-06-13 | Outpatient (REF) | payer MEDICARE, MEDICAID ==
[~2020-06-13] MED LIST changes: -ISOVUE-300 61% 50ML VIAL As Ordered ONE; -LIDOCAINE 1% MDV 20ML VIAL As Ordered ONE; -MIDAZOLAM INJ 2MG/2ML VIAL (J2250 PER 1MG) As Ordered ONE; -NITROGLYCERIN IN D5W 25MG/250ML (100MCG/ML) As Ordered ONE; -diphenhydrAMINE 50MG/ML VIAL (J1200) As Ordered ONE; -fentaNYL 100 MCG/2 ML INJECTION (J3010) As Ordered ONE
[2020-06-14 12:43] LABS: CALCIUM LEVEL 8.8 MG/DL (8.8-10.2); CREATININE FOR GFR 2.51 MG/DL (0.70-1.30); GLOMERULAR FILTRATION RATE 26.8 (>42); POTASSIUM SERUM 4.6 MEQ/L (3.5-5.1)
== END ==
LOC: M SFHCCLAY 14:40
PROVIDERS: ATTEND Family Medicine
DX: N18.4 Chronic kidney disease, stage 4 (severe) (principal)

== ENCOUNTER → 2020-06-28 | Outpatient (REF) | payer MEDICARE, MEDICAID ==
[2020-06-28 18:16] LABS: PERCENT SATURATION 22.6 % (19.7-50.0)
== END ==
LOC: M LAB REF 16:52
PROVIDERS: ATTEND Internal Medicine Nephrology
DX: D50.9 Iron deficiency anemia, unspecified (principal)

== ENCOUNTER → 2020-07-05 | Outpatient (POV) | payer MEDICARE, MEDICAID ==
--- NOTE | 2020-07-08 09:53 | IRPN ---
[facility] IR Progress Note IR Progress Note DATE: Jul 05, 2020 Patient agreed to this telephone follow up. I spents 10 minutes talking to the patient and his . FOLLOW-UP: Status post left leg angiogram which showed popiteal , tibioperoneal and peroneal stenosis with single vessel outflow to the left foot. He underwent popiteal, TP trunk and peroneal artery angioplasty with improved flow to the left foot. AT And PT could not be recanalized. Patient states 3 of the foot ulcers are healed and the others are healing and he feels better. The groin access site has healed up without pain, swelling or mass. He cannot tolerate aspirin due to prior epistaxis but he in on coumadin for AFib. IMPRESSION: Status post left leg angiogram and angioplasty. Continue follow up with wound care and follow up in IR clinic in 6 months. Thank you for this referral. Allergies Coded Allergies: [place] (Verified Allergy, Severe, ANAPHYLAXIS, 11/09/14) Penicillins (Verified Allergy, Severe, Anaphylaxis, 02/17/20) HAS RECEIVED 2nd & 3RD GEN CEPHALOSPORINS w/o PROBLEM metformin (Verified Allergy, Severe, Tongue swelling, 07/02/18) Wqdtcmc-Hsb-Hvn Reductase Inhibitor (Verified Adverse Reaction, Intermediate, Altered Mental Status, 07/02/18) codeine (Verified Adverse Reaction, Mild, "out of it". , 02/17/20) mixed with guifenasin duloxetine (Unverified Adverse Reaction, Mild, Nausea and vomiting, 07/02/18) clindamycin (Verified Adverse Reaction, Unknown, DIARRHEA, 02/29/20) LESLIE DEL VALLE MD Jul 08, 2020 09:53
== END ==
LOC: M TMIRPOV 07:53
PROVIDERS: ATTEND Radiology Diagnostic Radiology
DX: Z48.812 Encounter for surgical aftercare following surgery on the circulatory system (principal); I70.245 Atherosclerosis of native arteries of left leg with ulceration of other part of foot; Z79.01 Long term (current) use of 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s; Z88.0 Allergy status to penicillin; Z91.018 Allergy to other foods

== ENCOUNTER → 2020-07-12 | Outpatient (CLI) | payer MEDICARE, MEDICAID ==
[~2020-07-12] MED LIST changes: -DEXT4TAB2 PO; +FERR324T21 GT; -FERR325T16 GT; +SFHGLU4TA PO
--- NOTE | 2020-07-12 14:51 | REP ---
INDICATION: I50.32. COMPARISON: None. TECHNIQUE: PA and lateral chest. FINDINGS: As noted previously, sternal wires and aortic valve replacement noted. The lungs are clear, and fully aerated. The cardiac silhouette is mildly prominent. There is mild thoracic kyphosis, vertebral heights preserved. IMPRESSION: Lungs are clear. Sternal wires and aortic valve replacement. Persistent prominent cardiovascular silhouette, improved from recent prior study of 06/06/2020 portable chest. <Electronically signed by Louis Vazquez > 07/12/20 [id number]
== END ==
LOC: M CLY 14:21
PROVIDERS: ATTEND Family Medicine
DX: M40.204 Unspecified kyphosis, thoracic region (principal); I50.32 Chronic diastolic (congestive) heart failure
CPT/HCPCS: 71046; G0463

== ENCOUNTER → 2020-07-25 | Outpatient (REF) | payer MEDICARE, MEDICAID ==
[2020-07-26 13:15] LABS: ALBUMIN 3.4 GM/DL (3.2-5.2); BILIRUBIN,TOTAL 0.4 MG/DL (0.2-1.0); CALCIUM LEVEL 8.4 MG/DL (8.8-10.2); CREATININE FOR GFR 2.68 MG/DL (0.70-1.30); GLOMERULAR FILTRATION RATE 24.9 (>42); POTASSIUM SERUM 4.7 MEQ/L (3.5-5.1); TOTAL PROTEIN 7.6 GM/DL (6.4-8.2)
[2020-07-26 14:10] LABS: HEMOGLOBIN A1c 7.2 %
== END ==
LOC: M SFHCCLAY 14:23
PROVIDERS: ATTEND Family Medicine
DX: E11.621 Type 2 diabetes mellitus with foot ulcer (principal); D50.9 Iron deficiency anemia, unspecified
CPT/HCPCS: 80053; 83036; 83540; G0463

== ENCOUNTER 2020-08-24 09:07 | Inpatient (IN) | payer MEDICARE, MEDICAID ==
[~2020-08-24] VITALS: Ht 177.8 cm; Wt 88.8 kg
[~2020-08-24 09:07] MED LIST changes: -HM P99TA PO; +POTA99TA14 PO
[2020-08-24] MEDS ORDERED: GABA-1171 (09:18)
[2020-08-24] MEDS ORDERED: PANT40TA29 PO (09:18)
[2020-08-24] MEDS ORDERED: WARF-20 PO ×2 (09:18→14:54)
--- NOTE | 2020-08-24 10:40 | REP ---
INDICATION: DYSPNEA/COUGH. COMPARISON: 07/12/2020 TECHNIQUE: Portable FINDINGS: The technique utilized in obtaining the radiograph has magnified the cardiac silhouette and accentuated the interstitial markings. The cardiomediastinal silhouette is essentially unchanged. There is mild cardiomegaly accentuated by technique. There is a new oval-shaped opacity in the right minor fissure. The interstitial markings are generally increased and pulmonary venous engorgement is noted on this limited portable exam. Once again, note is made of previous median sternotomy. The pleural angles are again seen to be sharp. There is no change in the osseous structures. IMPRESSION: CHF pattern with evidence of fluid in the right minor fissure. PA and lateral views of the chest are suggested <Electronically signed by Vivek Euceda > 08/24/20 [id number]
[2020-08-24 10:48] LABS: BASO % 0.4 % (0.0-1.0); EOS # 0.3 10^3/uL (0.0-0.5); EOS % 3.5 % (0.0-3.0); HEMATOCRIT 32.1 % (42.0-52.0); HEMOGLOBIN 10.3 g/dl (13.5-17.5); LYMPH # 1.2 10^3/uL (1.5-5.0); LYMPH % 14.9 % (24.0-44.0); MEAN CORPUSCULAR HEMOGLOBIN 32.8 pg (27.0-33.0); MEAN CORPUSCULAR HGB CONC 32.1 g/dl (32.0-36.5); MEAN CORPUSCULAR VOLUME 102.2 fl (80.0-96.0); MONO # 0.7 10^3/uL (0.0-0.8); MONO % 8.8 % (2.0-8.0); PLATELET COUNT, AUTOMATED 105 10^3/uL (150-450); RED BLOOD COUNT 3.14 10^6/uL (4.30-6.10); WHITE BLOOD COUNT 8.3 10^3/uL (4.0-10.0)
[2020-08-24 10:59] LABS: INR 2.83; PROTHROMBIN TIME 30.4 SECONDS (12.5-14.3)
[2020-08-24 11:00] LABS: PARTIAL THROMBOPLASTIN TIME 42.1 SECONDS (24.2-38.5)
[2020-08-24 11:11] LABS: ERYTHROCYTE SEDIMENTATION RATE 89 mm/hr (0-20)
[2020-08-24 11:16] LABS: ALBUMIN 3.4 GM/DL (3.2-5.2); BILIRUBIN,DIRECT 0.2 MG/DL (0.0-0.2); BILIRUBIN,TOTAL 0.5 MG/DL (0.2-1.0); C REACTIVE PROTEIN QUANTITATIV 1.3 MG/DL (0.00-0.30); CALCIUM LEVEL 8.6 MG/DL (8.8-10.2); CK-MB VALUE MASS 5.3 NG/ML (<3.6); CREATININE FOR GFR 2.82 MG/DL (0.70-1.30); GLOMERULAR FILTRATION RATE 23.4 (>42); MB/CK RELATIVE INDEX 4.91 (< OR =4); POTASSIUM SERUM 4.5 MEQ/L (3.5-5.1); THYROID STIMULATING HORMONE 3.26 uIU/ML (0.358-3.740); THYROXINE (T4) 5.4 UG/DL (4.5-12.0); TOTAL PROTEIN 7.9 GM/DL (6.4-8.2); TROPONIN I 0.03 NG/ML (< 0.10)
[2020-08-24 11:54] LABS: VENOUS BASE EXCESS -2.1 (-2.0-2.0); VENOUS HCO3 24.2 MEQ/L (23.0-27.0); VENOUS O2 SATURATION 53.6 % (60.0-80.0); VENOUS PARTIAL PRESSURE CO2 48.5 mmHg (38.0-50.0); VENOUS PARTIAL PRESSURE O2 29.7 mmHg (30.0-50.0); VENOUS PH 7.316 UNITS (7.330-7.430); VENOUS STANDARD HCO3 21.9 MEQ/L; VENOUS TOTAL CO2 25.7 MEQ/L (24.0-28.0)
--- NOTE | 2020-08-24 14:16 | REP ---
INDICATION: chf, ascites COMPARISON: 02/17/2020 the latest prior also without contrast TECHNIQUE: Standard helical technique without the administration of intravenous contrast FINDINGS: There is mediastinal and right hilar adenopathy which appears unchanged. Mild left hilar adenopathy cannot be ruled out since no intravenous contrast was administered. There are no pleural or pericardial effusions. The imaged upper abdomen is unchanged. Note is again made of cholelithiasis. There is no significant change in appearance of the imaged osseous structures. There is a grade 1 superior endplate compression deformity of T12 which is stable. Evaluation of the lung sahu shows marked improvement in the previously present right middle lobe pneumonia with only a minimal residual probably representing chronic fibrotic and subsegmental atelectatic changes. Scattered asymmetric densities are again seen throughout the lung sahu status quo no definite new abnormal nodules, masses, or opacities have developed. IMPRESSION: 1. There is adenopathy as described above. 2. Known cholelithiasis. 3. Chronic lung field changes without evidence of acute disease. 4. Other findings as described above. <Electronically signed by Vivek Euceda > 08/24/20 [id number]
--- NOTE | 2020-08-24 14:25 | REP ---
INDICATION: chf, ascites COMPARISON: 11/09/2019. TECHNIQUE: CT Scan of the abdomen and pelvis was performed without intravenous contrast. Sagittal and coronal reconstruction images performed. FINDINGS: Liver: Grossly unremarkable. Gallbladder: There are small gallstones in the gallbladder. The gallbladder is only mildly distended with no evidence of gallbladder wall edema or thickening.. Spleen: Grossly unremarkable. Adrenals: Normal. Pancreas: Grossly unremarkable.. Kidneys: No hydronephrosis or nephrolithiasis. Ureters demonstrate no dilatation or calculus. There is a stable oval cystic structure anteriorly in the mid right kidney with a thin posterior wall calcification, 2.5 x 1.4 cm. Small and large bowel: Grossly unremarkable. There is no free air or obstruction. Free fluid: None. Abdominal aorta: No aneurysm. Adenopathy: None. Appendix: Not inflamed. Osseous structures: There are degenerative changes of the spine with a chronic stable compression deformity of T12. Pelvis: No mass. No bladder calculus seen. A small right inguinal hernia and a small umbilical hernia contain noninflamed fat. IMPRESSION: No acute findings seen in the abdomen or pelvis. Small gallstones again seen in a nondistended gallbladder. Stable right renal cyst. <Electronically signed by Loki Garcia > 08/24/20 [id number]
[2020-08-24] MEDS ORDERED: FUROSEMIDE 100MG/10ML VIAL (J1940) IV ONE (14:30)
[2020-08-24] MEDS ORDERED: ACETAMINOPHEN TAB 650MG DOSE (2X325MG) PO PRN (14:55)
[2020-08-24] MEDS: FUROSEMIDE 40MG/4ML VIAL (J1940) IV SCH ×2 (16:00→21:38)
[2020-08-24] MEDS ORDERED: hydrALAZINE 20MG/ML 1ML VIAL (J0360 PER 20MG) IV PRN (16:00)
[2020-08-24] MEDS ORDERED: ACETAMINOPHEN 500 MG TAB PO PRN (16:15)
[2020-08-24] MEDS ORDERED: PANTOPRAZOLE 40MG TAB (PROTONIX) PO PRN (16:15)
--- NOTE | 2020-08-24 16:38 | HPE ---
HISTORY AND PHYSICAL DATE OF ADMISSION: 08/24/2020 The patient is seen at approximately 3:30 p.m. in the emergency room on 08/24/2020, by myself. CHIEF COMPLAINT: Increasing soft tissue edema. ADMITTING DIAGNOSIS: Mr. Pabon is a 75-year-old gentleman who has multiple medical issues that include CKD stage IV, chronic diastolic congestive heart failure, history of aortic valve replacement with bioprosthetic valve. He is chronically on Coumadin. He has a history of peripheral arterial disease status post angioplasty of the left leg. He has a history of paroxysmal atrial fibrillation and kax-npbxeyw-tfmaupzmr diabetes. The patient was last hospitalized in June for fluid overload. He reports that following his lower extremity angiogram with angioplasty, he has had increased fluid and has been following with his oracle database developer, Dr. Mckeon. The patient reports that last week, he had seen Dr. Mckeon and he was recommended to take torsemide 100 mg for two days, which he did. Then he returned to 40 mg daily and despite this, he continues to have fluid. He reports having increased abdominal fluid and his was concerned and brought him into the emergency room. The patient was having trouble urinating. His baseline creatinine apparently is 2.1 and today when they checked it, it was 2.82 with a BUN of 70. A CT of his abdomen and pelvis without contrast was done and this showed no evidence of hydronephrosis. The patient has received IV Lasix 60 mg and he has diuresed greater than 600 mL of clear yellow urine. At the present moment, he is slightly hypertensive, but otherwise quite stable. The case was discussed with the oracle database developer christmas tree contractor, Dr. Power, who recommended admitting the patient to the hospital for further diuresis. ALLERGIES: [place], PENICILLIN, STATIN, CLINDAMYCIN, CODEINE, DULOXETINE, METFORMIN. CURRENT HOME MEDICATIONS: 1. Tylenol 1000 mg q. 6 as needed. 2. Cholecalciferol 50 mcg capsule he takes 2000 units daily. 3. Citalopram 10 mg at bedtime. 4. Collagenase. 5. 6. Echinacea 300 mg p.o. daily. 7. Glipizide 10 mg in the morning and then 5 mg in the p.m. if sugars are greater than 200. 8. Metoprolol tartrate 50 mg twice a day. 9. Protonix 40 mg p.o. daily as needed for heartburn. 10. MiraLAX. 11. Potassium gluconate 595 mg p.o. daily. 12. Torsemide 40 mg daily. 13. Warfarin 4 mg on Saturday, Saturday, Saturday, , Saturday, Saturday, and then 2 mg on Saturday. PAST MEDICAL HISTORY: Extensive and includes: 1. Severe aortic stenosis status post aortic valve replacement with bioprosthetic on 02/21/2018. 2. Coronary artery disease status post CABG. 3. Obstructive sleep apnea. 4. CKD stage IV with history of CVVHD in 2018. 5. Vri-ydtokal-afpcsygse diabetes mellitus. 6. Peripheral arterial disease. 7. Chronic systolic congestive heart failure and diastolic congestive heart failure. 8. Uplqktlt-lg-ddbnfx pulmonary hypertension. 9. Lewy body dementia. 10. Parkinson's disease. 11. Dysphagia. 12. Anemia of chronic kidney disease. 13. Cardiac arrest x2 V-fib arrest and PEA. 14. Tracheostomy and feeding tube. 15. Critical illness myopathy. 16. AFib on anticoagulation. 17. Multiple strokes. 18. Multifocal MRSA pneumonia in 2019. 19. Bilateral rib fractures. 20. Chronic T12 vertebral body anterior compression. 21. Squamous cell carcinoma of the skin. 22. Bilateral cataract surgeries. 23. Malignant melanoma removed greater than 10 years ago. PAST SURGICAL HISTORY: 1. Aortic valve replacement at [facility]. 2. CABG. 3. Back surgery. 4. Excision of squamous cell from his right hand. 5. Left eye cataract surgery. 6. Left fifth toe amputation. 7. Right fifth toe amputation. SOCIAL HISTORY: The patient is . He is an ex-smoker. He does not use any alcohol, tobacco, or illicit drugs. His is his surrogate medical decision maker. He is a full code. FAMILY HISTORY: Notable for heart disease, diabetes, and high blood pressure. REVIEW OF SYSTEMS: 12 systems reviewed with the patient and otherwise negative except for what is listed in the HPI. PHYSICAL EXAMINATION: VITAL SIGNS: The patient's pulse is 65 and regular, blood pressure 188/92, O2 sat 97% on room air, respirations 20. GENERAL: The patient is alert and oriented x3. He is lying in the supine position with no visible orthopnea. His is at the bedside. SKIN: Intact and warm to touch. He has some superficial ulcers of his lower extremities, which are covered with some mild drainage. They did not appear to be infected. HEENT: Head is atraumatic. Pupils are symmetric and reactive to light. Oropharynx is clear. NECK: Supple. He has no visible jugular venous distention. LUNGS: Sounds appreciated throughout without wheezing, rales, or rhonchi. HEART: S1, S2. Normal sinus rhythm. He has evidence of previous aortic valve replacement with loud S2. No rubs or gallops appreciated. ABDOMEN: Protuberant. He has some mild ascites. Active bowel sounds. Nontender to palpation. EXTREMITIES: Without any cyanosis or clubbing. He does have some chronic lower extremity lymphedema. NEUROLOGIC: Cranial nerves 2 through 12 are grossly intact. No focal neurologic deficits. Gait was not observed. PERTINENT LABORATORY DATA: White blood cell count is 8.3, hemoglobin 10.2, hematocrit 32, platelet count 105,000. INR is 2.8. PT is 30.4. Sodium 141, potassium 4.5, chloride 111, bicarb 26, anion gap 4, BUN 70, creatinine 2.82, glucose 238, calcium 8.6, alkaline phosphatase 76. Troponin 0.03. CRP is 1.30. ProBNP is 3379. TSH is 3.26, T4 is 5.4. IMPRESSION: 1. Acute on chronic diastolic congestive heart failure. The patient will be admitted to inpatient status with telemetry to the progressive care unit (PCU). We will place him on intravenous (IV) Lasix 40 mg q. 8. He will be placed on fluid restriction at 1500 mL. We will monitor I and O (intake and output), as well as daily weights. 2. Acute on chronic renal failure with chronic kidney disease (CKD) stage IV. The patient's CT without contrast showed no evidence of hydronephrosis. Nephrology will be consulted to assist us. 3. Accelerated hypertension. The patient will be continued on metoprolol. We will also add IV hydralazine for systolic blood pressure greater than 170. 4. Diabetes mellitus with sequela of peripheral neuropathy, as well as peripheral arterial disease. Can continue patient on his glipizide as he refuses to be on insulin. 5. Paroxysmal atrial fibrillation. The patient is currently in a normal sinus rhythm. We will continue with Coumadin for now. 6. History of depression. We will continue with his Celexa. 7. Deep vein thrombosis (DVT) prophylaxis. The patient is on Coumadin therapeutic dose. 8. Code status: The patient will be a FULL CODE.
[2020-08-24 18:15] VITALS: BP 164/75
--- NOTE | 2020-08-24 20:04 | ECGEPIP ---
[facility] - ED Test Date: 2020-08-24 Pat Name: MARTHA LOPEZ Department: Room: - Gender: Male Skirt Trimmer: LR : 1945 Requested By: JOCELYNE Hebert Order Number: [id number] Reading MD: Geoffrey Christensen Measurements Intervals [place] Rate: 67 P: 66 [place]: 196 QRS: -51 QRSD: 114 T: 83 QT: 470 QTc: 496 Interpretive Statements Sinus rhythm with premature atrial complexes Left axis deviation Minimal voltage criteria for LVH, may be normal variant ( Sheng product ) Inferior infarct , age undetermined Anterior infarct , age undetermined SIMILAR TO 06/06/20 Electronically Signed on 08-24-2020 20:03:58 EDT by Geoffrey Christensen
[2020-08-24 21:00] VITALS: BP 183/80
[2020-08-24] MEDS: HumaLOG INSULIN (NovoLOG) PER UNIT SC SCH (21:00)
[2020-08-24] MEDS: MIRALAX *UNIT DOSE* 17GM PACKET PO SCH (21:00)
[2020-08-24] MEDS: CitaloPRAM (CeleXA) 10 MG TABLET PO SCH (21:36)
[2020-08-24] MEDS: METOPROLOL TART 50 MG TAB PO SCH (21:37)
[2020-08-24] MEDS: DOCUSATE SODIUM 100MG CAPSULE PO SCH (21:37)
[2020-08-24] MEDS: WARFARIN SOD 4MG TAB PO SCH (21:37)
[2020-08-24] MEDS ORDERED: GLUCOSE 4GM CHEW TABLET PO PRN (22:05)
[2020-08-24] MEDS ORDERED: GLUCAGON INJ 1MG VIAL SC PRN (22:05)
[2020-08-24] MEDS ORDERED: DEXTROSE 50% 50 ML SYRINGE IV PRN (22:05)
[2020-08-25] VITALS (7 sets, daily range): BP systolic 126–181; BP diastolic 51–83
[2020-08-25 05:19] LABS: HEMATOCRIT 30.7 % (42.0-52.0); HEMOGLOBIN 10.2 g/dl (13.5-17.5); MEAN CORPUSCULAR HGB CONC 33.2 g/dl (32.0-36.5); MEAN CORPUSCULAR VOLUME 99.4 fl (80.0-96.0); PLATELET COUNT, AUTOMATED 116 10^3/uL (150-450); RED BLOOD COUNT 3.09 10^6/uL (4.30-6.10)
[2020-08-25 05:28] LABS: INR 2.93; PROTHROMBIN TIME 31.2 SECONDS (12.5-14.3)
[2020-08-25 05:57] LABS: CALCIUM LEVEL 8.8 MG/DL (8.8-10.2); CREATININE FOR GFR 2.93 MG/DL (0.70-1.30); GLOMERULAR FILTRATION RATE 22.4 (>42); MAGNESIUM LEVEL 2.4 MG/DL (1.8-2.4)
[2020-08-25] MEDS: HumaLOG INSULIN (NovoLOG) PER UNIT SC SCH ×4 (07:30→20:59)
[2020-08-25] MEDS: DOCUSATE SODIUM 100MG CAPSULE PO SCH ×2 (08:35→20:52)
[2020-08-25] MEDS: METOPROLOL TART 50 MG TAB PO SCH ×2 (08:36→20:53)
[2020-08-25] MEDS: FUROSEMIDE 40MG/4ML VIAL (J1940) IV SCH (08:36)
[2020-08-25] MEDS ORDERED: SANTYL OINT 30GM TOP SCH (09:00)
[2020-08-25] MEDS ORDERED: FUROSEMIDE 100MG/10ML VIAL (J1940) IV SCH (12:00)
--- NOTE | 2020-08-25 14:58 | IPNPDOC ---
Subjective Date Seen The patient was seen on 08/25/20. Subjective Chief Complaint/HPI Jl is resting in bed supine position he reports that he feels way better. He has a net negative water loss of 3.4 L. He refuses to take insulin and his first assistant manager on taking his glipizide. I told him that with the increase in his creatinine by nearly 50% that he runs the risk of developing hypoglycemia with his present dose of glipizide. Objective Physical Examination General Exam: Positive: Cooperative Eye Exam: Positive: Conjunctiva & lids normal ENT Exam: Positive: Mucous membr. moist/pink Neck Exam: Positive: Supple Chest Exam: Positive: Normal air movement Heart Exam: Positive: Rate Normal Abdomen Exam: Positive: Normal bowel sounds, Soft, Other (decreased ascites) Assessment /Plan Assessment # Acute on chronic diastolic congestive heart failure. - continue with IV lasix 40 mg q8 - check labs in am (bmp, bnp) # Acute on chronic renal failure with CKD stage IV. - CT abd/pel without contrast showed no evidence of hydronephrosis - await nephro input # Accelerated hypertension. - controlled with metoprolol. - IV hydralazine prn DM2 wtih complication of peripheral neuropathy and nephropathy and PAD - glipizide 5 mg po x 1 now - will reasses in am - patient refusing SS # Paroxysmal atrial fibrillation. - nsr - INR 2.9, repeat level in am, continue coumadin Dispo: awaiting nephro recommendations Plan/VTE VTE Prophylaxis Ordered?: No (coumadin) VTE Exclusion Mechanical Proph: Other VTE Exclusion Pharmacological: Other VS, I&O, 24H, Fishbone Vital Signs/I&O Vital Signs Date Time Temp Pulse Resp B/P (MAP) Pulse Ox O2 Delivery O2 Flow Rate FiO2 08/25/20 11:58 97.4 62 18 156/74 (101) 93 Room Air I&O- Last 24 Hours up to 6 AM 08/25/20 06:00 Intake Total 700 ml Output Total 3750 ml Balance -3050 ml Laboratory Data 24H LABS Laboratory Tests 2 08/24/20 18:41: Bedside Glucose (Misc Panel) 151H 08/24/20 21:42: Bedside Glucose (Misc Panel) 206H 08/25/20 00:22: Bedside Glucose (Misc Panel) 196H 08/25/20 05:01: Nucleated Red Blood Cells % (auto) 0.0, Prothrombin Time 31.2H, Prothromb Time International Ratio 2.93, Anion Gap 8, Glomerular Filtration Rate 22.4L, Calcium Level 8.8, Magnesium Level 2.4 08/25/20 09:39: Methicillin-Resist S.aureus DNA PCR DETECTEDA 08/25/20 11:11: Bedside Glucose (Misc Panel) 261H CBC/BMP Laboratory Tests 08/25/20 05:01 Microbiology Microbiology 08/24/20 Blood Culture - Preliminary, Resulted No growth after 24 hours . All specim... 08/24/20 Respiratory Virus Panel (PCR) (MANDIE) - Final, Complete 08/24/20 Blood Culture - Preliminary, Resulted No growth after 24 hours . All specim... ONOFRE GARCIA MD August 25, 2020 14:58
[2020-08-25] MEDS ORDERED: glipiZIDE (GLUCOTROL) 5 MG TAB PO ONE (16:00)
[2020-08-25] MEDS: FUROSEMIDE 100MG/10ML VIAL (J1940) IV SCH ×2 (16:28→23:22)
[2020-08-25] MEDS: WARFARIN SOD 4MG TAB PO SCH (18:38)
[2020-08-25] MEDS: CitaloPRAM (CeleXA) 10 MG TABLET PO SCH (20:53)
[2020-08-25] MEDS: MIRALAX *UNIT DOSE* 17GM PACKET PO SCH (20:57)
[2020-08-26] VITALS: BP 163/87
[2020-08-26 04:00] VITALS: BP 163/85
[2020-08-26 06:56] LABS: HEMATOCRIT 32.4 % (42.0-52.0); HEMOGLOBIN 10.6 g/dl (13.5-17.5); MEAN CORPUSCULAR HEMOGLOBIN 32.9 pg (27.0-33.0); MEAN CORPUSCULAR HGB CONC 32.7 g/dl (32.0-36.5); MEAN CORPUSCULAR VOLUME 100.6 fl (80.0-96.0); PLATELET COUNT, AUTOMATED 127 10^3/uL (150-450); RED BLOOD COUNT 3.22 10^6/uL (4.30-6.10); WHITE BLOOD COUNT 8.5 10^3/uL (4.0-10.0)
[2020-08-26 07:06] LABS: INR 3.07; PROTHROMBIN TIME 32.4 SECONDS (12.5-14.3)
[2020-08-26 07:07] VITALS: BP 161/79
[2020-08-26 07:27] LABS: CALCIUM LEVEL 8.3 MG/DL (8.8-10.2); CREATININE FOR GFR 2.95 MG/DL (0.70-1.30); GLOMERULAR FILTRATION RATE 22.3 (>42); POTASSIUM SERUM 3.7 MEQ/L (3.5-5.1)
[2020-08-26] MEDS: HumaLOG INSULIN (NovoLOG) PER UNIT SC SCH ×2 (07:30→11:44)
[2020-08-26 08:17] VITALS: BP 161/79
[2020-08-26] MEDS: FUROSEMIDE 100MG/10ML VIAL (J1940) IV SCH (08:17)
[2020-08-26] MEDS: DOCUSATE SODIUM 100MG CAPSULE PO SCH (08:17)
[2020-08-26] MEDS: METOPROLOL TART 50 MG TAB PO SCH (08:17)
[2020-08-26] MEDS ORDERED: SLF 3 ML SYR IV PRN (09:10)
[2020-08-26] MEDS ORDERED: glipiZIDE (GLUCOTROL) 5 MG TAB PO ONE (09:50)
--- NOTE | 2020-08-26 10:20 | CR ---
NEPHROLOGY CONSULTATION DATE: 08/25/2020 REQUESTING PHYSICIAN: Dr. Forest Ortiz CONSULTING PHYSICIAN: Dr. Felisa Power REASON FOR CONSULTATION: Management of fluid overload in the patient with chronic kidney disease CHIEF COMPLAINT: The patient presented to the hospital yesterday with increasing soft tissue edema and weight gain. HISTORY OF PRESENT ILLNESS: Newton Bernard is a 75-year-old male with a past medical history of chronic kidney disease stage 4, baseline creatinine of 2.5 as per previous admissions, chronic diastolic congestive heart failure, history of bioprosthetic aortic valve replacement, and multiple other comorbidities as mentioned below. He presented to the hospital because despite taking Torsemide 100 mg for a few days, he kept on having weight gain, lower extremity edema, abdominal distention. When he presented to the hospital, he was found to have a creatinine of 2.8. He was admitted under the Hospital Service. He was started on IV diuretics. Nephrology Service was called for further help in the management of this patient. I saw and evaluated the patient today morning at the bedside. He is getting Lasix 40 mg IV three times daily but he reports that he is not making much urine at this time, and last time when he was given Lasix 80 mg twice daily, he was making more urine during previous hospitalizations. PAST MEDICAL HISTORY: The patient's past medical history is significant for: 1. Chronic kidney disease stage 4 baseline creatinine of around 2.5. 2. Chronic diastolic congestive heart failure. 3. Coronary artery disease - status post CABG. 4. Severe aortic stenosis - status post bioprosthetic aortic valve replacement in 2018. 5. Non insulin dependent diabetes. 6. Peripheral vascular disease. 7. Chronic and mild systolic and diastolic congestive heart failure. 8. Pulmonary hypertension. 9. Parkinson's disease. 10. Dysphagia. 11. Cardiac arrest secondary to V-fib and PEA. 12. History of atrial fibrillation on anticoagulation. 13. Multiple CVAs in the past. 14. Multifocal MRSA pneumonia in 2019. 15. Squamous cell carcinoma of the skin. SURGICAL HISTORY: The patient's past surgical history is significant for: 1. Status post aortic valve replacement. 2. CABG. 3. Back surgery. 4. Squamous cell cancer excision from right hand. 5. Left eye cataract surgery. 6. Left fifth toe amputation and right fifth toe amputation. ALLERGIES: He is allergic to: 1. [place]. 2. Penicillin. 3. Statins. 4. Clindamycin. 5. Codeine. 6. Duloxetine. 7. Metformin. FAMILY HISTORY: No significant family history of end-stage renal disease requiring hemodialysis. SOCIAL HISTORY: The patient is an ex-smoker. He lives with his . He denies any illicit drug abuse or alcohol abuse. REVIEW OF SYSTEMS: Constitutional: He denies any fevers or chills. Eyes: He denies any blurry vision, double vision. ENT: He denies any dysphagia or odynophagia. Cardiovascular: He reports weight gain and persistent lower extremity edema. Respiratory: He reports moderate persistent shortness of breath. GI: He reports abdominal distention. He denies any nausea or vomiting. Musculoskeletal: He reports tightening of the lower extremities and edema. Skin: He denies any rashes or ulcers. Hematological/Oncological: He denies any easy bleeding or bruising. Endocrine: He reports diabetes mellitus type 2. ACADEMIC DEAN: He denies any strokes or seizures. All other review of systems is negative. PHYSICAL EXAMINATION: GENERAL APPEARANCE: The patient is awake, alert, oriented x3, laying in bed in no apparent distress. VITAL SIGNS: Temperature is 97 degrees Fahrenheit, blood pressure 181/83, pulse is 69, respiratory rate of 18, saturating 100% on room air. INTAKE AND OUTPUT: Urine output recorded yesterday as 2.4 liters. By the time I saw him in the morning he had made 1.3 liters of urine. HEAD AND NECK: Extraocular muscles intact. Pupils are equally round and reactive to light. Mucous membranes are moist. Neck is supple. There is mildly elevated jugular venous distention noted. CARDIOVASCULAR: S1, S2, regular rate. EXTREMITIES: 1+ edema of the bilateral lower extremities. RESPIRATORY: Mildly decreased breath sounds at the bases, otherwise no active rales or rhonchi. ABDOMEN: Soft, positive bowel sounds, abdominal wall edema was noted. MUSCULOSKELETAL: Edema of the lower extremities as mentioned above. No clubbing or cyanosis. ACADEMIC DEAN: No focal deficits. Power is 5/5 in all extremities. LAB REVIEW: CBC showed a WBC count of 9, hemoglobin 10.2, platelet count of 116. Urinalysis done showed 2+ protein, no blood, no leukocyte esterase. VBG done yesterday showed a pH of 7.31. BMP done today morning showed sodium 142, potassium 4, chloride 112, bicarbonate 22, BUN 71, creatinine is 2.9. Calcium is 8.8, magnesium is 2.4. IMAGING: A CT of the chest was done yesterday which showed non cholelithiasis, chronic lung few changes without evidence of acute disease. CAT scan of the abdomen and pelvis was done yesterday which showed no acute findings in the abdomen and pelvis, small gallstones are again noted, nondistended gallbladder, stable right renal cyst. CURRENT INPATIENT MEDICATIONS: The patient's medications were all reviewed by myself. He is on Tylenol p.r.n., Celexa 10 mg q. h.s., Fentanyl one dose topical q. 2 days, Colace 100 mg p.o. twice daily. He was getting Lasix 40 mg IV three times daily. I have changed it 60 mg IV q. 8 hourly. He is on Glipizide 5 mg p.o. times one dose, insulin Lispro sliding scale, Metoprolol 50 mg p.o. twice daily, Protonix 40 mg p.o. daily, Warfarin 5 mg p.o. Mondays, 4 mg the rest of the days. ASSESSMENT AND PLAN: 1. Acute renal failure superimposed on chronic kidney disease - creatinine is slightly higher than baseline. Most likely it is cardiorenal in nature. Okay to continue diuretics as mentioned below. 2. Cucqj-rg-kquengw decompensated combined systolic and diastolic congestive heart failure I have changed the diuretic as mentioned above. Continue to monitor intake and output. The rest of the diuretic regimen will be adjusted tomorrow morning. 3. Hypertension - blood pressures are elevated. He continues to be on Metoprolol. Diuretics are being given for optimization of fluid status. Continue IV Hydralazine p.r.n. 4. Diabetes mellitus type 2 - continue insulin sliding scale. Okay to continue Glipizide. Avoid use of Metformin. 5. Paroxysmal atrial fibrillation - INR is therapeutic. He continues to be on Coumadin. Heart rate is controlled with Metoprolol at this time. 6. Disposition Thank you for involving me in the care of this patient. I shall be happy to follow the patient along with you tomorrow morning.
[2020-08-26 11:09] VITALS: BP 144/74
[2020-08-26] MEDS ORDERED: TORS20TA2 PO (12:05)
[2020-08-26] MEDS ORDERED: SLF 3 ML SYR IV SCH (14:00)
[2020-08-26 15:39] VITALS: BP 164/77
[2020-08-26] MEDS ORDERED: WARFARIN SOD 2MG TAB PO ONE (17:00)
[2020-08-26] MEDS ORDERED: TORSEMIDE 20 MG TAB PO SCH (17:00)
--- NOTE | 2020-08-26 18:25 | DSES ---
DISCHARGE SUMMARY DATE OF ADMISSION: 08/24/2020 DATE OF DISCHARGE: 08/26/2020 DISCHARGE DIAGNOSES: 1. Acute on chronic diastolic congestive heart failure. 2. Acute on chronic renal failure with chronic kidney disease (CKD) stage IV. 3. Accelerated hypertension. 4. Diabetes mellitus type 2 with complication of peripheral neuropathy, nephropathy, and peripheral arterial disease. 5. Paroxysmal atrial fibrillation. 6. Therapeutic INR on warfarin therapy. CONSULTANTS DURING THIS HOSPITALIZATION: Dr. Power of nephrology. PROCEDURES PERFORMED DURING THIS HOSPITALIZATION: None. DISCHARGE DISPOSITION: The patient is discharged home. CONDITION ON DISCHARGE: Stable and improved. DISCHARGE INSTRUCTIONS: The patient is instructed to follow-up with Dr. Mckeon in approximately one week. He is to obtain a BMP at that time. IMAGING STUDIES OBTAINED DURING THIS HOSPITALIZATION: Chest x-ray, which showed no acute findings. CT of the abdomen and pelvis without contrast showed no acute findings other than small gallstones, a nondistended gallbladder, and stable right renal cyst. CT of the chest without contrast showed no adenopathy and chronic lung field changes without any evidence of acute disease. RELEVANT LABORATORY DATA: White count 8.5, hemoglobin 10.6, hematocrit 32.4, platelet count 127,000. ESR was 89. INR was 3.0 with a PT of 32.4. Sodium 141, potassium 2.7, chloride 108, bicarb 24, anion gap 9, BUN 66, creatinine 2.95, glucose 167, calcium 8.3. NT-proBNP was 3627. Troponin marker negative. TSH was 3.2 and free T4 was 5.4. CPK was 108. Urinalysis was otherwise unremarkable. COVID swab was negative. Blood cultures x48 hours showed no growth. HOSPITAL COURSE: Mr. Pabon is a 75-year-old gentleman who has CKD stage IV along with chronic diastolic congestive heart failure, diabetes, and paroxysmal atrial fibrillation for which he is on Coumadin. He had presented to the hospital with increasing lower extremity and abdominal swelling. He had recently failed outpatient treatment for his fluid overload with his correctional guard, Dr. Mckeon and presented to the hospital with worsening symptoms. He was found to be hemodynamically stable with an elevated creatinine (it looks like his baseline is approximately 2.1 and he was 2.8 when he arrived). A CT of the abdomen and pelvis without contrast showed no evidence of obstructive uropathy. The patient was admitted to the step-down unit. He was placed on intravenous Lasix. He diuresed effectively. He was seen by Dr. Power. His creatinine edged up slightly higher, but clinically the patient improved. The patient was cleared to be discharged home from a nephrology standpoint and was transitioned to oral torsemide twice a day and asked to follow-up with Dr. Mckeon. DISCHARGE PHYSICAL EXAMINATION: VITAL SIGNS: Temperature 97.8, pulse 61 and regular, respirations 18, blood pressure 144/74, O2 sat 98% on room air. GENERAL: The patient is an elderly gentleman who appeared his stated age. He is in no acute distress. His breathing is nonlabored. HEENT: He is acyanotic without any jaundicing. His pupils are symmetric and reactive to light. Oropharynx is clear. NECK: Supple. No jugular venous distention. LUNGS: Sounds are appreciated without rales, wheezing, or rhonchi. Breathing is nonlabored. HEART: S1, S2. No murmurs, rubs, or gallops. He is currently in a sinus rhythm. ABDOMEN: Soft and nondistended with decrease in abdominal fluid. EXTREMITIES: Without any significant cyanosis, clubbing, or edema at this time. DISCHARGE MEDICATIONS: 1. Torsemide 40 mg twice a day. 2. Tylenol 1000 mg every six hours as needed for pain. 3. Cholecalciferol 2000 units daily. 4. Citalopram 10 mg at bedtime. 5. Santyl applied topically every two days. 6. Echinacea 300 mg daily. 7. Glipizide 10 mg daily. 8. Glipizide 5 mg. 9. Metoprolol 50 mg twice a day. 10. Protonix 40 mg daily. 11. MiraLAX 17 grams. 12. Potassium gluconate 595 mg daily. 13. Coumadin 4 mg p.o. six times a week and then 2 mg on Mondays. Total of 30 minutes spent completing all discharge paperwork.
--- NOTE | 2020-08-26 23:26 | IPN ---
NEPHROLOGY PROGRESS NOTE DATE: 08/26/2020 SUBJECTIVE: The patient was seen and examined at the bedside today morning. He is afebrile and hemodynamically stable. His creatinine is stable at 2.9 as compared with yesterday. He had a good urine output with the IV diuretics. He reports his shortness of breath is getting better. He wants to go home today. He denies any other active complaints. OBJECTIVE: VITAL SIGNS: Her temperature is 96.5 degrees Fahrenheit, blood pressure 164/77, pulse is 61, respiratory rate of 18, saturating 98% on room air. INTAKE AND OUTPUT: Urine output recorded as 3.4 liters yesterday, 760 mL so far today since overnight. Weight in the bed scale is 88.8 kg which is lower than his weight yesterday. PHYSICAL EXAMINATION: GENERAL APPEARANCE: The patient is awake, alert, oriented x3, laying in bed in no apparent distress. HEAD AND NECK: Extraocular muscles intact. Pupils are equally round and reactive to light. Mucous membranes are moist. Neck is supple. There is no jugular venous distention. CARDIOVASCULAR: He has a surgical scar. RESPIRATORY: Chest is clear to auscultation bilaterally. Bilaterally currently no rales or rhonchi. ABDOMEN: Soft, positive bowel sounds, nontender, no organomegaly. MUSCULOSKELETAL: No clubbing, no cyanosis. Pulses are 2+. ASSISTANT PROFESSOR OF COMMUNICATION: No focal deficits. Power is 5/5 in all extremities. LAB REVIEW: CBC showed a white blood cell count of 8.5, hemoglobin 10.6, platelet count of 127. BMP showed sodium of 141, potassium 3.7, chloride 108, bicarbonate 28, BUN 66, creatinine is 2.9. Pro BNP is 3,627. CURRENT INPATIENT MEDICATIONS: The patient's medications were all reviewed by myself. I have stopped his IV diuretic and I have started him on Torsemide 40 mg p.o. twice daily. There is no significant change in the medications. ASSESSMENT AND PLAN: 1. Acute decompensated combined systolic and diastolic congestive heart failure - The patient is responding well to the IV diuretics, however he does not want to stay in the hospital. I have started him on oral Torsemide. He can be discharged home on this dose. 2. Chronic kidney disease stage 4 his creatinine is staying stable since yesterday at 2.9. Okay to continue the diuretics at this time. 3. Hypertension - blood pressure is controlled. Continue Metoprolol and diuretics at this time. 4. Diabetes mellitus type 2 - continue Glipizide and insulin. Avoid Metformin as an outpatient. 5. Disposition - The patient is optimized to be discharged from a Nephrology standpoint. He can follow up with Dr. Mckeon as an outpatient in the Nephrology Clinic.
[2020-08-29] MEDS ORDERED: WARFARIN SOD 2MG TAB PO SCH (17:00)
== END 2020-08-26 16:31 | disposition home or self-care (01) | DRG 291 ==
LOC: M ED 09:07 → M ED INP 14:53 → ENRESERV 15:37 → M PCU 18:15
PROVIDERS: ADMIT Internal Medicine; ATTEND Internal Medicine
DX: I13.0 Hypertensive heart and chronic kidney disease with heart failure and stage 1 through stage 4 chronic kidney disease, or unspecified chronic kidney disease (principal); I50.33 Acute on chronic diastolic (congestive) heart failure; N18.4 Chronic kidney disease, stage 4 (severe); N17.9 Acute kidney failure, unspecified; I48.0 Paroxysmal atrial fibrillation; E11.51 Type 2 diabetes mellitus with diabetic peripheral angiopathy without gangrene; E11.21 Type 2 diabetes mellitus with diabetic nephropathy; Z79.899 Other long term (current) drug therapy; Z79.01 Long term (current) use of 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s; Z95.2 Presence of prosthetic heart valve; Z88.0 Allergy status to penicillin; Z88.5 Allergy status to narcotic agent; Z88.8 Allergy status to other drugs, medicaments and biological substances; I27.20 Pulmonary hypertension, unspecified; G20 Parkinson's disease; Z86.73 Personal history of transient ischemic attack (TIA), and cerebral infarction without residual deficits; Z91.018 Allergy to other foods; Z98.41 Cataract extraction status, right eye; Z98.42 Cataract extraction status, left eye; Z85.828 Personal history of other malignant neoplasm of skin

== ENCOUNTER 2020-09-10 14:09 | Emergency (ER) | payer MEDICARE, MEDICAID ==
[~2020-09-10] VITALS: Ht 177.8 cm; Wt 87.3 kg
[~2020-09-10 14:09] MED LIST changes: +GABA-1171
[2020-09-10] MEDS ORDERED: TRAM50TA2 (14:27)
[2020-09-10 16:53] VITALS: BP 139/71
== END 2020-09-10 16:54 | disposition home or self-care (01) ==
LOC: M ED 14:09
DX: L97.911 Non-pressure chronic ulcer of unspecified part of right lower leg limited to breakdown of skin (principal); E11.622 Type 2 diabetes mellitus with other skin ulcer; E78.5 Hyperlipidemia, unspecified; F32.9 Major depressive disorder, single episode, unspecified; F41.9 Anxiety disorder, unspecified; H54.8 Legal blindness, as defined in USA; I10 Essential (primary) hypertension; J90 Pleural effusion, not elsewhere classified; K21.9 Gastro-esophageal reflux disease without esophagitis; N18.30 Chronic kidney disease, stage 3 unspecified; R13.10 Dysphagia, unspecified; Z79.01 Long term (current) use of 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s; Z79.84 Long term (current) use of oral hypoglycemic drugs; Z79.899 Other long term (current) drug therapy; Z88.0 Allergy status to penicillin; Z88.1 Allergy status to other antibiotic agents; Z88.6 Allergy status to analgesic agent; Z88.8 Allergy status to other drugs, medicaments and biological substances; Z91.018 Allergy to other foods; Z95.828 Presence of other vascular implants and grafts

== ENCOUNTER → 2020-09-27 | Outpatient (REF) | payer MEDICARE, MEDICAID ==
[2020-09-27 16:55] LABS: BASO # 0.1 10^3/uL (0.0-0.2); BASO % 0.6 % (0.0-1.0); EOS # 0.3 10^3/uL (0.0-0.5); EOS % 3.3 % (0.0-3.0); HEMATOCRIT 31.4 % (42.0-52.0); HEMOGLOBIN 10.1 g/dl (13.5-17.5); LYMPH # 1.5 10^3/uL (1.5-5.0); LYMPH % 16.7 % (24.0-44.0); MEAN CORPUSCULAR HGB CONC 32.2 g/dl (32.0-36.5); MEAN CORPUSCULAR VOLUME 102.6 fl (80.0-96.0); MONO # 0.8 10^3/uL (0.0-0.8); MONO % 9.1 % (2.0-8.0); NEUTROPHILS % 69.5 % (36.0-66.0); PLATELET COUNT, AUTOMATED 137 10^3/uL (150-450); RED BLOOD COUNT 3.06 10^6/uL (4.30-6.10); WHITE BLOOD COUNT 8.7 10^3/uL (4.0-10.0)
[2020-09-27 17:06] LABS: HEMOGLOBIN A1c 8.3 %
[2020-09-27 17:19] LABS: ALBUMIN 3.3 GM/DL (3.2-5.2); BILIRUBIN,TOTAL 0.4 MG/DL (0.2-1.0); CALCIUM LEVEL 8.8 MG/DL (8.8-10.2); CHOLESTEROL RISK RATIO 6.888 (<5); CREATININE FOR GFR 3.1 MG/DL (0.70-1.30); POTASSIUM SERUM 4.7 MEQ/L (3.5-5.1); TOTAL PROTEIN 7.8 GM/DL (6.4-8.2)
== END ==
LOC: M SFHCCLAY 13:22
PROVIDERS: ATTEND Family Medicine
DX: D50.9 Iron deficiency anemia, unspecified (principal); N18.4 Chronic kidney disease, stage 4 (severe); E11.22 Type 2 diabetes mellitus with diabetic chronic kidney disease
CPT/HCPCS: 80053; 80061; 83036; 83540; 85025; G0463

== ENCOUNTER 2020-10-22 10:47 | Inpatient (IN) | payer MEDICARE, MEDICAID ==
[~2020-10-22] VITALS: Ht 177.8 cm; Wt 92.0 kg
[~2020-10-22 10:47] MED LIST changes: -CLIN150C15 PO; +CLIN150C17 PO; +QUET1TAB17 GT; -QUET25TA3 GT
[2020-10-22 11:33] LABS: BASO % 0.5 % (0.0-1.0); EOS # 0.2 10^3/uL (0.0-0.5); EOS % 2.1 % (0.0-3.0); HEMATOCRIT 26.9 % (42.0-52.0); HEMOGLOBIN 8.6 g/dl (13.5-17.5); LYMPH % 11.6 % (24.0-44.0); MEAN CORPUSCULAR HEMOGLOBIN 33.7 pg (27.0-33.0); MEAN CORPUSCULAR VOLUME 105.5 fl (80.0-96.0); MONO # 0.6 10^3/uL (0.0-0.8); MONO % 7.4 % (2.0-8.0); NEUTROPHILS # 6.8 10^3/uL (1.5-8.5); NEUTROPHILS % 77.9 % (36.0-66.0); PLATELET COUNT, AUTOMATED 141 10^3/uL (150-450); RED BLOOD COUNT 2.55 10^6/uL (4.30-6.10); WHITE BLOOD COUNT 8.7 10^3/uL (4.0-10.0)
[2020-10-22 12:12] LABS: ALBUMIN 3.4 GM/DL (3.2-5.2); BILIRUBIN,DIRECT 0.3 MG/DL (0.0-0.2); BILIRUBIN,TOTAL 0.9 MG/DL (0.2-1.0); CALCIUM LEVEL 8.2 MG/DL (8.8-10.2); CK-MB VALUE MASS 6.3 NG/ML (<3.6); CREATININE FOR GFR 3.03 MG/DL (0.70-1.30); GLOMERULAR FILTRATION RATE 21.6 (>42); MB/CK RELATIVE INDEX 5.73 (< OR =4); POTASSIUM SERUM 4.3 MEQ/L (3.5-5.1); THYROID STIMULATING HORMONE 2.7 uIU/ML (0.358-3.740); TOTAL PROTEIN 7.6 GM/DL (6.4-8.2); TROPONIN I 0.04 NG/ML (< 0.10)
[2020-10-22] MEDS ORDERED: FUROSEMIDE 40MG/4ML VIAL (J1940) IV ONE (13:00)
[2020-10-22] MEDS ORDERED: MAALOX 30 ML SUSP *UDC PO PRN (14:05)
[2020-10-22] MEDS ORDERED: MOM 30ML SUSPENSION UDC PO PRN (14:05)
[2020-10-22] MEDS ORDERED: GLUCAGON INJ 1MG VIAL SC PRN (14:15)
[2020-10-22] MEDS ORDERED: DEXTROSE 50% 50 ML SYRINGE IV PRN (14:15)
[2020-10-22] MEDS ORDERED: GLUCOSE 4GM CHEW TABLET PO PRN (14:15)
[2020-10-22 14:28] LABS: INR 2.28; PROTHROMBIN TIME 25.6 SECONDS (12.5-14.3)
[2020-10-22 14:29] LABS: PARTIAL THROMBOPLASTIN TIME 44.8 SECONDS (24.2-38.5)
[2020-10-22] MEDS ORDERED: TORS20TA2 PO (14:35)
[2020-10-22] MEDS ORDERED: HOME MED LIST COMPLETE! XX SCH (14:40)
[2020-10-22 14:56] LABS: RSV AMPLIFICATION NEGATIVE (NEGATIVE)
[2020-10-22] MEDS: ACETAMINOPHEN TAB 650MG DOSE (2X325MG) PO PRN (15:15)
[2020-10-22] MEDS ORDERED: PANTOPRAZOLE 40MG TAB (PROTONIX) PO PRN (15:30)
[2020-10-22 16:25] VITALS: BP 139/85
[2020-10-22 17:15] VITALS: O2SAT 100
[2020-10-22] MEDS: HumaLOG INSULIN (NovoLOG) PER UNIT SC SCH (17:16)
[2020-10-22] MEDS: FUROSEMIDE 40MG/4ML VIAL (J1940) IV SCH ×2 (17:28→21:40)
[2020-10-22] MEDS: WARFARIN SOD 4MG TAB PO SCH (17:28)
[2020-10-22] MEDS: glipiZIDE (GLUCOTROL) 5 MG TAB PO SCH (17:28)
[2020-10-22] MEDS ORDERED: METOPROLOL SUCC (TopROL XL) 50MG **XL** TAB PO SCH (21:00)
[2020-10-22] MEDS: METOPROLOL TART 50 MG TAB PO SCH (21:38)
[2020-10-22] MEDS: DOCUSATE SODIUM 100MG CAPSULE PO SCH (21:38)
[2020-10-22] MEDS: CitaloPRAM (CeleXA) 10 MG TABLET PO SCH (21:38)
[2020-10-22] MEDS: MIRALAX *UNIT DOSE* 17GM PACKET PO SCH (21:40)
[2020-10-22 22:00] VITALS: BP 188/83
[2020-10-23] VITALS (7 sets, daily range): BP systolic 150–163; BP diastolic 60–82; O2SAT 93–94
[2020-10-23] MEDS: FUROSEMIDE 40MG/4ML VIAL (J1940) IV SCH ×6 (01:39→21:56)
[2020-10-23] MEDS: ACETAMINOPHEN TAB 650MG DOSE (2X325MG) PO PRN ×3 (01:40→21:49)
[2020-10-23 06:12] LABS: HEMATOCRIT 25.3 % (42.0-52.0); HEMOGLOBIN 8.1 g/dl (13.5-17.5); MEAN CORPUSCULAR HEMOGLOBIN 33.5 pg (27.0-33.0); MEAN CORPUSCULAR VOLUME 104.5 fl (80.0-96.0); PLATELET COUNT, AUTOMATED 135 10^3/uL (150-450); RED BLOOD COUNT 2.42 10^6/uL (4.30-6.10); WHITE BLOOD COUNT 7.3 10^3/uL (4.0-10.0)
[2020-10-23 06:41] LABS: BILIRUBIN,TOTAL 0.9 MG/DL (0.2-1.0); CREATININE FOR GFR 3.26 MG/DL (0.70-1.30); GLOMERULAR FILTRATION RATE 19.8 (>42); MAGNESIUM LEVEL 2.3 MG/DL (1.8-2.4); POTASSIUM SERUM 3.9 MEQ/L (3.5-5.1); TOTAL PROTEIN 7.1 GM/DL (6.4-8.2); TROPONIN I 0.04 NG/ML (< 0.10)
[2020-10-23] MEDS: HumaLOG INSULIN (NovoLOG) PER UNIT SC SCH ×3 (07:30→17:10)
[2020-10-23] MEDS: DOCUSATE SODIUM 100MG CAPSULE PO SCH ×2 (08:59→21:49)
[2020-10-23] MEDS: glipiZIDE (GLUCOTROL) 5 MG TAB PO SCH ×2 (09:00→18:01)
[2020-10-23] MEDS: METOPROLOL TART 50 MG TAB PO SCH ×2 (09:04→21:49)
[2020-10-23] MEDS: WARFARIN SOD 4MG TAB PO SCH (18:01)
[2020-10-23] MEDS: CitaloPRAM (CeleXA) 10 MG TABLET PO SCH (21:48)
[2020-10-23] MEDS: MIRALAX *UNIT DOSE* 17GM PACKET PO SCH (21:49)
[2020-10-24] MEDS: FUROSEMIDE 40MG/4ML VIAL (J1940) IV SCH ×4 (02:19→14:00)
[2020-10-24 06:00] VITALS: BP 145/76
[2020-10-24 08:00] VITALS: BP 141/73
[2020-10-24 10:04] LABS: HEMATOCRIT 29.3 % (42.0-52.0); HEMOGLOBIN 9.4 g/dl (13.5-17.5); MEAN CORPUSCULAR HEMOGLOBIN 34.1 pg (27.0-33.0); MEAN CORPUSCULAR HGB CONC 32.1 g/dl (32.0-36.5); MEAN CORPUSCULAR VOLUME 106.2 fl (80.0-96.0); PLATELET COUNT, AUTOMATED 168 10^3/uL (150-450); RED BLOOD COUNT 2.76 10^6/uL (4.30-6.10); WHITE BLOOD COUNT 8.1 10^3/uL (4.0-10.0)
[2020-10-24 10:08] VITALS: BP 143/71
[2020-10-24] MEDS: glipiZIDE (GLUCOTROL) 5 MG TAB PO SCH (10:08)
[2020-10-24] MEDS: DOCUSATE SODIUM 100MG CAPSULE PO SCH (10:08)
[2020-10-24] MEDS: METOPROLOL TART 50 MG TAB PO SCH (10:08)
[2020-10-24] MEDS: HumaLOG INSULIN (NovoLOG) PER UNIT SC SCH ×2 (10:09→12:19)
[2020-10-24 10:42] LABS: CALCIUM LEVEL 8.7 MG/DL (8.8-10.2); CREATININE FOR GFR 3.35 MG/DL (0.70-1.30); GLOMERULAR FILTRATION RATE 19.2 (>42); POTASSIUM SERUM 4.2 MEQ/L (3.5-5.1)
[2020-10-24 11:30] VITALS: BP 159/73
[2020-10-24] MEDS ORDERED: cefTRIAXone SOD 2 GM in D5W MINI-BAG PLUS 50 ML IV SCH (13:30)
[2020-10-24] MEDS ORDERED: TORS20TA2 PO (13:49)
[2020-10-24 14:04] VITALS: BP 158/74
[2020-10-24 14:07] VITALS: BP 158/74
[2020-10-24] MEDS ORDERED: WARFARIN SOD 2MG TAB PO SCH (17:00)
== END 2020-10-24 15:17 | disposition home or self-care (01) | DRG 291 ==
LOC: M ED 10:47 → M ED INP 14:05 → ENRESERV 14:57 → M MSPAV 16:22
PROVIDERS: ADMIT Internal Medicine; ATTEND General Practice
DX: I13.0 Hypertensive heart and chronic kidney disease with heart failure and stage 1 through stage 4 chronic kidney disease, or unspecified chronic kidney disease (principal); I50.33 Acute on chronic diastolic (congestive) heart failure; N18.4 Chronic kidney disease, stage 4 (severe); I48.20 Chronic atrial fibrillation, unspecified; N17.9 Acute kidney failure, unspecified; E11.22 Type 2 diabetes mellitus with diabetic chronic kidney disease; G31.83 Neurocognitive disorder with Lewy bodies; G47.33 Obstructive sleep apnea (adult) (pediatric); G20 Parkinson's disease; Z79.01 Long term (current) use of 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s; Z79.899 Other long term (current) drug therapy; Z91.018 Allergy to other foods; Z98.41 Cataract extraction status, right eye; Z98.42 Cataract extraction status, left eye; Z89.421 Acquired absence of other right toe(s); Z89.422 Acquired absence of other left toe(s)

== ENCOUNTER → 2020-11-08 | Outpatient (REF) | payer MEDICARE, MEDICAID ==
[2020-11-08 18:42] LABS: HEMOGLOBIN A1c 8.4 %
[2020-11-08 18:44] LABS: CALCIUM LEVEL 9.2 MG/DL (8.8-10.2); CREATININE FOR GFR 3.1 MG/DL (0.70-1.30); POTASSIUM SERUM 4.3 MEQ/L (3.5-5.1)
== END ==
LOC: M SFHCCLAY 10:39
PROVIDERS: ATTEND Family Medicine
DX: E11.22 Type 2 diabetes mellitus with diabetic chronic kidney disease (principal)
CPT/HCPCS: 80048; 83036; G0463

== ENCOUNTER 2020-11-24 09:45 | Inpatient (IN) | payer MEDICARE, MEDICAID ==
[~2020-11-24] VITALS: Ht 177.8 cm; Wt 91.6 kg
[2020-11-24] MEDS ORDERED: ONDANSETRON 4MG/2ML VIAL IV ONE (10:30)
[2020-11-24] MEDS: MORPHINE 4 MG/ML 1ML VIAL/SYRINGE (J2270) IV PRN ×2 (10:48→12:21)
[2020-11-24 11:20] LABS: BASO # 0.1 10^3/uL (0.0-0.2); BASO % 0.6 % (0.0-1.0); EOS # 0.4 10^3/uL (0.0-0.5); EOS % 4.4 % (0.0-3.0); HEMATOCRIT 31.6 % (42.0-52.0); HEMOGLOBIN 10.1 g/dl (13.5-17.5); LYMPH % 12.2 % (24.0-44.0); MEAN CORPUSCULAR HEMOGLOBIN 34.2 pg (27.0-33.0); MEAN CORPUSCULAR VOLUME 107.1 fl (80.0-96.0); MONO # 0.6 10^3/uL (0.0-0.8); MONO % 6.7 % (2.0-8.0); NEUTROPHILS # 6.2 10^3/uL (1.5-8.5); NEUTROPHILS % 75.5 % (36.0-66.0); PLATELET COUNT, AUTOMATED 139 10^3/uL (150-450); RED BLOOD COUNT 2.95 10^6/uL (4.30-6.10); WHITE BLOOD COUNT 8.2 10^3/uL (4.0-10.0)
[2020-11-24 11:31] LABS: INR 2.41; PROTHROMBIN TIME 26.6 SECONDS (12.7-14.5)
[2020-11-24 11:38] LABS: ERYTHROCYTE SEDIMENTATION RATE > 140 mm/hr (0-20)
[2020-11-24 11:46] LABS: ALBUMIN 3.2 GM/DL (3.2-5.2); BILIRUBIN,DIRECT 0.2 MG/DL (0.0-0.2); BILIRUBIN,TOTAL 0.6 MG/DL (0.2-1.0); C REACTIVE PROTEIN QUANTITATIV 2.48 MG/DL (0.00-0.30); CALCIUM LEVEL 8.5 MG/DL (8.8-10.2); CREATININE FOR GFR 3.26 MG/DL (0.70-1.30); GLOMERULAR FILTRATION RATE 19.8 (>42); TOTAL PROTEIN 8.7 GM/DL (6.4-8.2)
[2020-11-24 12:03] LABS: RSV AMPLIFICATION NEGATIVE (NEGATIVE)
--- NOTE | 2020-11-24 12:23 | REP ---
INDICATION: sob. COMPARISON: 10/22/2020. TECHNIQUE: Single portable AP view of the chest was performed. FINDINGS: Cardiomegaly and venous hypertension are again noted unchanged. There is mild interstitial prominence diffusely, which is stable. Stable fluid is again seen in the minor fissure.There are multiple sternal wires. The mediastinal silhouette is unchanged. IMPRESSION: No significant change when compared to the prior exam, as discussed above. <Electronically signed by Loki Garcia > 11/24/20 [id number]
[2020-11-24] MEDS ORDERED: PREG25CA2 PO (12:26)
[2020-11-24] MEDS ORDERED: AMMO12CR7 TOP (12:49)
[2020-11-24] MEDS ORDERED: HOME MED LIST COMPLETE! XX SCH (12:50)
[2020-11-24] MEDS ORDERED: MAALOX 30 ML SUSP *UDC PO PRN (13:25)
[2020-11-24] MEDS ORDERED: MOM 30ML SUSPENSION UDC PO PRN (13:25)
--- NOTE | 2020-11-24 14:21 | HPEPDOC ---
[facility] Medical History & Physical Date of Admission Nov 24, 2020 Date of Service: Nov 24, 2020 History and Physical CHIEF COMPLAINT: bilateral leg pain HISTORY OF PRESENT ILLNESS: 75-year-old male with a history of coronary artery disease status post CABG, severe aortic stenosis status post AVR with bioprosthetic valve on Coumadin, atrial fibrillation, biventricular heart failure CKD stage IV, diabetes type 2, peripheral arterial disease status post angioplasty of the left lower extremity by Dr. Tafoya, CVA and numerous other conditions as shown below. Patient presents to the ER with intractable pain of the bilateral lower extremities overlying numerous arterial ulcers. He denies chest pain, palpitations, shortness of breath, n/v/d. Patient is followed by Dr. Hinson in the clinic and is seen once every 2 weeks. Patient underwent left leg angiogram in June [address] Tafoya which showed popliteal tibioperoneal and peroneal stenosis with single-vessel outflow of the left foot. He underwent popliteal TP trunk and peroneal artery angioplasty which improved flow to the left foot. AT and PT could not be recanalized. Patient received 8 mg of IV morphine in the ER with no improvement in his pain. At this time he does not report any chest pain shortness of breath palpitations nausea vomiting diarrhea subjective fevers or chills. Patient will be admitted to hospitalist service for management of intractable pain secondary to numerous arterial ulcers on bilateral lower extremities. PAST MEDICAL HISTORY: 1. Severe aortic stenosis status post aortic valve replacement with bioprosthetic on 02/21/2018. 2. Coronary artery disease status post CABG. 3. Obstructive sleep apnea. 4. CKD stage IV with history of CVVHD in 2018. 5. Jmu-maxsjyi-krkzevnmc diabetes mellitus. 6. Peripheral arterial disease. 7. Chronic systolic congestive heart failure and diastolic congestive heart failure. 8. Mceklpxb-st-qhchov pulmonary hypertension. 9. Lewy body dementia. 10. Parkinson's disease. 11. Dysphagia. 12. Anemia of chronic kidney disease. 13. Cardiac arrest x2 V-fib arrest and PEA. 14. Tracheostomy and feeding tube. 15. Critical illness myopathy. 16. AFib on anticoagulation. 17. Multiple strokes. 18. Multifocal MRSA pneumonia in 2019. 19. Bilateral rib fractures. 20. Chronic T12 vertebral body anterior compression. 21. Squamous cell carcinoma of the skin. 22. Bilateral cataract surgeries. 23. Malignant melanoma removed greater than 10 years ago. PAST SURGICAL HISTORY: 1. Aortic valve replacement at [facility]. 2. CABG. 3. Back surgery. 4. Excision of squamous cell from his right hand. 5. Left eye cataract surgery. 6. Left fifth toe amputation. 7. Right fifth toe amputation. SOCIAL HISTORY: patient denies smoking Patient denies etoh use Patient denies illicit drug use FAMILY HISTORY: Family history of heart disease diabetes and hypertension ALLERGIES: Please see below. REVIEW OF SYSTEMS: 10 point ROS conducted, relevant findings are noted in the HPI. HOME MEDICATIONS: Please see below. PHYSICAL EXAMINATION: VITAL SIGNS: please see below General: NAD, comfortable HEENT: PERRLA, EOMI, sclerae clear Neck: supple, normal ROM, no JVD Respiratory: lungs CTAB, no wheeze, no rales, no crackles CVS: RRR, normal S1, S2, no murmurs Abdo: soft, no masses, no hepatosplenomegaly, BS+, no rebound tenderness Extremities: no edema, pulses 2+ MSK: no joint deformities, normal ROM Neuro: no focal neuro deficits, moving all 4 extremities, CN2-12 intact. Strength 5/5 in all 4 extremities. No nystagmus. Psych: calm, cooperative, AAO x 3 LABORATORY DATA: See below. IMAGING: CXR (11/24/20): FINDINGS: Cardiomegaly and venous hypertension are again noted unchanged. There is mild interstitial prominence diffusely, which is stable. Stable fluid is again seen in the minor fissure.There are multiple sternal wires. The mediastinal silhouette is unchanged. IMPRESSION: No significant change when compared to the prior exam, as discussed above. MICROBIOLOGY: Please see below. ASSESSMENT: 75-year-old male with a history of coronary artery disease status post CABG, severe aortic stenosis status post AVR with bioprosthetic valve on Coumadin, atrial fibrillation, biventricular heart failure CKD stage IV, diabetes type 2, peripheral arterial disease status post angioplasty of the left lower extremity by Dr. Tafoya, CVA and numerous other conditions as shown below. Patient presents to the ER with intractable pain of the bilateral lower extremities overlying numerous arterial ulcers. Patient is followed by Dr. Hinson in the clinic and is seen once every 2 weeks. Patient underwent left leg angiogram in June [address] Tafoya which showed popliteal tibioperoneal and peroneal stenosis with single-vessel outflow of the left foot. He underwent popliteal TP trunk and peroneal artery angioplasty which improved flow to the left foot. AT and PT could not be recanalized. Patient received 8 mg of IV morphine in the ER with no improvement in his pain. At this time he does not report any chest pain shortness of breath palpitations nausea vomiting diarrhea subjective fevers or chills. Patient will be admitted to hospitalist service for management of intractable pain secondary to numerous arterial ulcers on bilateral lower extremities. . PLAN: Intractable pain of the lower extremities 2/2 numerous arterial ulcers: - received 8 mg IV morphine in ER, without marked improvement - ordered dilaudid in monitored setting - Dr. Mcclure advanced wound consult placed. Will apply santyl, cover with foam dressing PAD - s/p angioplasty in 06/[address] Tafoya of [facility] - ordered arterial dopplers of BLEs - will consult vascular surgery or IR depending on results - bedside dopplers identified DP on both legs CKDIV - Cr 3.29 at baseline - Dr. Mora Mckeon consulted - avoid contrast media, nephrotoxins Biventricular CHF - resume home meds - appears clinically euvolemic CAD with AVR on coumadin - resume coumadin, daily INR - resume lipitor Afib - tele - resume warfarin, rate control with metoprolol DM2 - ISS and FSBS AC and HS - CC diet - hypoglycemic precautions DVT ppx: on coumadin Dispo: pending clinical improvement. Vital Signs Vital Signs Date Time Temp Pulse Resp B/P (MAP) Pulse Ox O2 Delivery O2 Flow Rate FiO2 11/24/20 12:31 18 95 Room Air Laboratory Data Labs 24H Laboratory Tests 2 11/24/20 10:26: Immature Granulocyte % (Auto) 0.6, Neutrophils (%) (Auto) 75.5H, Lymphocytes (%) (Auto) 12.2L, Monocytes (%) (Auto) 6.7, Eosinophils (%) (Auto) 4.4H, Basophils (%) (Auto) 0.6, Neutrophils # (Auto) 6.2, Lymphocytes # (Auto) 1.0L, Monocytes # (Auto) 0.6, Eosinophils # (Auto) 0.4, Basophils # (Auto) 0.1, Nucleated Red Blood Cells % (auto) 0.0, Erythrocyte Sedimentation Rate > 140H, Prothrombin Time 26.6H, Prothromb Time International Ratio 2.41, Anion Gap 8, Glomerular Filtration Rate 19.8L, Lactic Acid Level 2.5*H, Calcium Level 8.5L, Total Bilirubin 0.6, Direct Bilirubin 0.2, Aspartate Amino Transf (AST/SGOT) 14, Alanine Aminotransferase (ALT/SGPT) 22, Alkaline Phosphatase 78, C-Reactive Protein, Quantitative 2.48H, Total Protein 8.7H, Albumin 3.2, Albumin/Globulin Ratio 0.6 11/24/20 10:44: Coronavirus (COVID-19)(PCR) NEGATIVE, Influenza Type A (RT-PCR) NEGATIVE, Influenza Type B (RT-PCR) NEGATIVE, Respiratory Syncytial Virus (PCR) NEGATIVE CBC/BMP Laboratory Tests 11/24/20 10:26 Microbiology Microbiology 11/24/20 Blood Culture, Received Pending 11/24/20 Blood Culture, Received Pending Home Medications Scheduled Aspirin (Aspirin EC) 81 Mg Tablet.dr, 81 MG PO DAILY Cholecalciferol (Vitamin D3) (Vitamin D3) 50 Mcg Capsule, 2,000 UNITS PO DAILY TAKES AT NOON Citalopram Hydrobromide (Citalopram HBr) 20 Mg Tab, 10 MG PO QHS Collagenase Clostridium Hist. (Santyl) 30 Gm Oint...g., 1 APLCT TOP Q2D APPLY TO SHINS AND OPEN WOUNDS Echinacea (Echinacea) 380 Mg Cap, 380 MG PO DAILY Glipizide (Glipizide) 10 Mg Tab, 1.5 TABS PO BID Metoprolol Tartrate (Metoprolol Tartrate) 50 Mg Tab, 50 MG PO BID Polyethylene Glycol 3350 (Miralax) 119 Gm Powder, 17 GM PO QHS HOLD FOR DIARRHEA Potassium Gluconate (Potassium) 99 Mg Tablet, 595 MG PO DAILY TAKES AT 1200 Pregabalin (Pregabalin) 25 Mg Capsule, 25 MG PO BID Warfarin Sodium (Warfarin Sodium) 4 Mg Tablet, 4 MG PO 6XWK SUN/MON/TU/SAT/SAT/SAT EVENINGS Warfarin Sodium (Warfarin Sodium) 4 Mg Tablet, 2 MG PO QWEEK SATURDAY EVENINGS Scheduled PRN Acetaminophen (Tylenol Extra Strength) 500 Mg Tablet, 1,000 MG PO Q6H PRN for PAIN Ammonium Lactate (Ammonium Lactate) 12% Cream..g., 1 DOSE TOP DAILY PRN for DRY SKIN APPLY TO FEET Pantoprazole Sodium (Pantoprazole Sodium) 40 Mg Tablet.dr, 40 MG PO DAILY PRN for HEARTBURN Tramadol HCl (Tramadol HCl) 50 Mg Tablet, 100 MG PO Q6HP PRN for SEVERE PAIN (PS 8-10) Allergies Coded Allergies: [place] (Verified Allergy, Severe, ANAPHYLAXIS, 11/09/14) Penicillins (Verified Allergy, Severe, Anaphylaxis, 02/17/20) HAS RECEIVED 2nd & 3RD GEN CEPHALOSPORINS w/o PROBLEM metformin (Verified Allergy, Severe, Tongue swelling, 07/02/18) Cxtxmqr-Doo-Ief Reductase Inhibitor (Verified Adverse Reaction, Intermediate, Altered Mental Status, 07/02/18) codeine (Verified Adverse Reaction, Mild, "out of it". , 02/17/20) mixed with guifenasin duloxetine (Unverified Adverse Reaction, Mild, Nausea and vomiting, 07/02/18) clindamycin (Verified Adverse Reaction, Unknown, DIARRHEA, 02/29/20) A-FIB/CHADSVASC A-FIB History Current/History of A-Fib/PAF?: Yes Current PO Anticoag Therapy: Yes LISA RANGEL MD Nov 24, 2020 14:21
[2020-11-24] MEDS ORDERED: PANTOPRAZOLE 40MG TAB (PROTONIX) PO PRN (14:25)
[2020-11-24] MEDS: ACETAMINOPHEN TAB 650MG DOSE (2X325MG) PO PRN ×2 (15:33→20:11)
[2020-11-24 15:56] VITALS: BP 146/74
[2020-11-24 15:57] VITALS: O2SAT 99
[2020-11-24] MEDS: WARFARIN SOD 2MG TAB PO SCH (17:05)
[2020-11-24] MEDS: TORSEMIDE 20 MG TAB PO SCH (17:05)
[2020-11-24] MEDS: MIRALAX *UNIT DOSE* 17GM PACKET PO SCH (20:11)
[2020-11-24] MEDS: PREGABALIN 25 MG CAP (LYRICA) PO SCH (20:11)
[2020-11-24] MEDS: CitaloPRAM (CeleXA) 10 MG TABLET PO SCH (20:11)
[2020-11-24] MEDS: METOPROLOL TART 50 MG TAB PO SCH (20:12)
[2020-11-24 21:00] VITALS: O2SAT 91
[2020-11-24 22:00] VITALS: BP 137/71
[2020-11-25 06:00] VITALS: BP 132/70
[2020-11-25 06:33] LABS: BASO # 0.1 10^3/uL (0.0-0.2); BASO % 0.6 % (0.0-1.0); EOS # 0.3 10^3/uL (0.0-0.5); EOS % 3.8 % (0.0-3.0); HEMATOCRIT 28.6 % (42.0-52.0); LYMPH # 0.9 10^3/uL (1.5-5.0); LYMPH % 11.4 % (24.0-44.0); MEAN CORPUSCULAR HEMOGLOBIN 33.8 pg (27.0-33.0); MEAN CORPUSCULAR HGB CONC 31.5 g/dl (32.0-36.5); MEAN CORPUSCULAR VOLUME 107.5 fl (80.0-96.0); MONO # 0.7 10^3/uL (0.0-0.8); MONO % 8.3 % (2.0-8.0); NEUTROPHILS # 6.2 10^3/uL (1.5-8.5); NEUTROPHILS % 75.5 % (36.0-66.0); PLATELET COUNT, AUTOMATED 121 10^3/uL (150-450); RED BLOOD COUNT 2.66 10^6/uL (4.30-6.10); WHITE BLOOD COUNT 8.2 10^3/uL (4.0-10.0)
[2020-11-25 06:46] LABS: INR 2.62; PROTHROMBIN TIME 28.4 SECONDS (12.7-14.5)
[2020-11-25 07:07] LABS: ALBUMIN 2.8 GM/DL (3.2-5.2); BILIRUBIN,TOTAL 0.5 MG/DL (0.2-1.0); CALCIUM LEVEL 8.3 MG/DL (8.8-10.2); CREATININE FOR GFR 3.37 MG/DL (0.70-1.30); GLOMERULAR FILTRATION RATE 19.1 (>42); MAGNESIUM LEVEL 2.6 MG/DL (1.8-2.4); POTASSIUM SERUM 4.8 MEQ/L (3.5-5.1); TOTAL PROTEIN 7.2 GM/DL (6.4-8.2)
--- NOTE | 2020-11-25 08:56 | REPVR ---
PROCEDURE INFORMATION: Exam: CT Head Without Contrast Exam date and time: 11/25/2020 8:48 AM Age: 75 years old Clinical indication: Other: Stroke symptoms TECHNIQUE: Imaging protocol: Computed tomography of the head without contrast. Radiation optimization: All CT scans at this facility use at least one of these dose optimization techniques: automated exposure control; mA and/or kV adjustment per patient size (includes targeted exams where dose is matched to clinical indication); or iterative reconstruction. Other technique: STROKE PROTOCOL was implemented. COMPARISON: CT Head without contrast 11/09/2019 7:28 AM images only, there is no report. Examination is being read stat due to the emergent nature of the study. FINDINGS: Brain: Stable central cortical atrophy. Intracranial hemorrhage. Cerebral ventricles: No ventriculomegaly. Paranasal sinuses: Visualized sinuses are unremarkable. No fluid levels. Mastoid air cells: Visualized mastoid air cells are well aerated. Vasculature: There are vascular stable calcifications. Bones/joints: Unremarkable. No acute fracture. Soft tissues: Unremarkable. IMPRESSION: No acute abnormality without the benefit of having the old report. ASSESSMENT: ASPECTS ([place] Stroke Program Early CT Score) is 10. Electronically signed by: Eric Stephens On 11/25/2020 08:56:12 AM
[2020-11-25] MEDS ORDERED: ASPIRIN 81MG ENTERIC TABLET PO SCH (09:00)
[2020-11-25] MEDS: PREGABALIN 25 MG CAP (LYRICA) PO SCH ×2 (10:03→20:48)
[2020-11-25] MEDS: TORSEMIDE 20 MG TAB PO SCH ×2 (10:03→17:44)
[2020-11-25] MEDS: METOPROLOL TART 50 MG TAB PO SCH (10:04)
--- NOTE | 2020-11-25 10:25 | REP ---
INDICATION: please add LYNNE TECHNIQUE: Real-time sonographic evaluation of the right and left lower extremity arteries with Doppler FINDINGS: On the right: Ankle brachial index was unobtainable due to occlusion. LEAF TINNER: 56.7 biphasic Profunda: 39.6 biphasic SFA proximal: 37.8 biphasic SFA mid: 42.8 triphasic SFA distal: 34.8 triphasic Popliteal: 69.6-39.0 triphasic RONY proximal: Occluded Tibioperoneal trunk: 38.0 monophasic RADIATOR REPAIRER proximal: Occluded RADIATOR REPAIRER distal: Occluded RONY distal: Occluded On the left: The ankle brachial index could not be obtained due to occlusion. LEAF TINNER: 45.2 biphasic Profunda: 43.7 biphasic SFA proximal: 44.3 biphasic SFA mid: 48.9 biphasic SFA distal: 41.2 triphasic Popliteal: 71.3 monophasic RONY proximal: Occluded Tibioperoneal trunk: 87.6 monophasic RADIATOR REPAIRER proximal: Occluded RADIATOR REPAIRER distal: Occluded RONY distal: Occluded Heavily calcified vessel trotter were seen bilaterally IMPRESSION: As above <Electronically signed by Vivek Euceda > 11/25/20 1021
--- NOTE | 2020-11-25 11:44 | REPVR ---
PROCEDURE INFORMATION: Exam: MR Head Without Contrast Exam date and time: 11/25/2020 11:19 AM Age: 75 years old Clinical indication: Altered mental status/memory loss; Patient HX: AMS; Additional info: R/O CVA TECHNIQUE: Imaging protocol: MR of the head without contrast. COMPARISON: CT Head without contrast 11/25/2020 8:53 AM FINDINGS: Brain: Moderate to severe central and cortical atrophy and small vessel ischemic disease identified. There is evidence of hemorrhage. There is a small punctate acute CVA within the right parietal lobe image 304/20. There are areas on gradient echo imaging which are well rounded dark all sequences specifically the gradient echo right side. These measure 5 mm in the right temporal lobe, 6 mm in the right parietal lobe as well as 3 mm medially within right occipital lobe. These could be sequelae of prior bleeds and hemosiderin versus small cryptic vascular malformations. The acute infarct, punctate, is adjacent to the right temporal lobe abnormality. Cerebral ventricles: Normal. No ventriculomegaly. Bones/joints: Unremarkable. Paranasal sinuses: Normal as visualized. No acute sinusitis. Mastoid air cells: Normal as visualized. No mastoid effusion. Orbital cavity: Unremarkable. Soft tissues: Unremarkable. IMPRESSION: Punctate right parietal acute CVA. No intracranial acute hemorrhage. Electronically signed by: Eric Stephens On 11/25/2020 11:43:30 AM
--- NOTE | 2020-11-25 11:52 | REPVR ---
PROCEDURE INFORMATION: Exam: MRA Head Without Contrast; Arteriography Exam date and time: 11/25/2020 11:19 AM Age: 75 years old Clinical indication: Cognitive deficit; Altered mental status; Patient HX: AMS; Additional info: R/O CVA TECHNIQUE: Imaging protocol: Magnetic resonance angiography head without contrast. Exam focused on the arteries. COMPARISON: MRA BRAIN W/O CONTRAST 04/18/2018 10:02 PM FINDINGS: ANTERIOR CIRCULATION: Right internal carotid artery: Intracranial segment is patent with no significant stenosis. No aneurysm. Right middle cerebral artery: No occlusion or significant stenosis. No aneurysm. Right anterior cerebral artery: No occlusion or significant stenosis. No aneurysm. Left internal carotid artery: Intracranial segment is patent with no significant stenosis. No aneurysm. Left middle cerebral artery: No occlusion or significant stenosis. No aneurysm. Left anterior cerebral artery: No occlusion or significant stenosis. No aneurysm. POSTERIOR CIRCULATION: Right vertebral artery: No occlusion or significant stenosis. No aneurysm. Left vertebral artery: No occlusion or significant stenosis. No aneurysm. Basilar artery: No occlusion or significant stenosis. No aneurysm. Right posterior cerebral artery: No occlusion or significant stenosis. No aneurysm. Left posterior cerebral artery: There is narrowing of the proximal left posterior cerebral artery with a suspected 70+% stenosis seen on image 201/92. The rest of the posterior cerebral artery does have normal signal. IMPRESSION: Suspect a severe stenosis involving the proximal aspect of the posterior cerebral artery. Electronically signed by: Eric Stephens On 11/25/2020 11:52:35 AM
[2020-11-25] MEDS: SANTYL OINT 30GM TOP SCH ×2 (12:36→23:46)
[2020-11-25] MEDS: ACETAMINOPHEN TAB 650MG DOSE (2X325MG) PO PRN (12:36)
[2020-11-25] MEDS: HYDROMORPHONE HCL 0.5 MG/ 0.5 ML SYRINGE (J1170 PER 1) IV PRN (13:50)
[2020-11-25 14:00] VITALS: BP 117/63
[2020-11-25] MEDS ORDERED: GLUCAGON INJ 1MG VIAL SC PRN (14:20)
[2020-11-25] MEDS ORDERED: DEXTROSE 50% 50 ML SYRINGE IV PRN (14:20)
[2020-11-25] MEDS ORDERED: GLUCOSE 4GM CHEW TABLET PO PRN (14:20)
[2020-11-25] MEDS ORDERED: FIORICET TAB PO ONE (14:55)
--- NOTE | 2020-11-25 15:24 | IPNPDOC ---
Date Seen The patient was seen on 11/25/20. Progress Note SUBJECTIVE: I was called to examine patient urgently on rounds by his nurse. Upon standing to work with physical therapy patient became dizzy and developed a posterior headache with blurred vision. Patient's NIH stroke scale was 0 at the time of exam. Patient states that he has poor vision at baseline and is difficult to determine if this is actually worsening. Patient was taken down for stat CT scan. OBJECTIVE PHYSICAL EXAMINATION: VITAL SIGNS: please see below General: NAD, comfortable HEENT: PERRLA, EOMI, sclerae clear Neck: supple, normal ROM, no JVD Respiratory: lungs CTAB, no wheeze, no rales, no crackles CVS: RRR, normal S1, S2, no murmurs Abdo: soft, no masses, no hepatosplenomegaly, BS+, no rebound tenderness Extremities: no edema, pulses 2+ MSK: no joint deformities, normal ROM Neuro: no focal neuro deficits, moving all 4 extremities, CN2-12 intact. Strength 5/5 in all 4 extremities. No nystagmus. No facial asymmetry no pupillary asymmetry no tongue deviation no uvular deviation. Psych: calm, cooperative, AAO x 3 LABORATORY DATA, IMAGING STUDIES, MICROBIOLOGY: Please see below. MRA brain (11/25/20): FINDINGS: ANTERIOR CIRCULATION: Right internal carotid artery: Intracranial segment is patent with no significant stenosis. No aneurysm. Right middle cerebral artery: No occlusion or significant stenosis. No aneurysm. Right anterior cerebral artery: No occlusion or significant stenosis. No aneurysm. Left internal carotid artery: Intracranial segment is patent with no significant stenosis. No aneurysm. Left middle cerebral artery: No occlusion or significant stenosis. No aneurysm. Left anterior cerebral artery: No occlusion or significant stenosis. No aneurysm. POSTERIOR CIRCULATION: Right vertebral artery: No occlusion or significant stenosis. No aneurysm. Left vertebral artery: No occlusion or significant stenosis. No aneurysm. Basilar artery: No occlusion or significant stenosis. No aneurysm. Right posterior cerebral artery: No occlusion or significant stenosis. No aneurysm. Left posterior cerebral artery: There is narrowing of the proximal left posterior cerebral artery with a suspected 70+% stenosis seen on image 201/92. The rest of the posterior cerebral artery does have normal signal. IMPRESSION: Suspect a severe stenosis involving the proximal aspect of the posterior cerebral artery. Echocardiogram: Ordered on 11/25/2020 DVT prophylaxis ordered?: She is on Coumadin ASSESSMENT AND PLAN: 75-year-old male with a history of coronary artery disease status post CABG, severe aortic stenosis status post AVR with bioprosthetic valve on Coumadin, atrial fibrillation, biventricular heart failure CKD stage IV, diabetes type 2, peripheral arterial disease status post angioplasty of the left lower extremity by Dr. Tafoya, CVA and numerous other conditions as shown below. Patient presents to the ER with intractable pain of the bilateral lower extremities overlying numerous arterial ulcers. Patient is followed by Dr. Hinson in the clinic and is seen once every 2 weeks. Patient underwent left leg angiogram in June [address] Tafoya which showed popliteal tibioperoneal and peroneal stenosis with single-vessel outflow of the left foot. He underwent popliteal TP trunk and peroneal artery angioplasty which improved flow to the left foot. AT and PT could not be recanalized. Patient received 8 mg of IV morphine in the ER with no improvement in his pain. At this time he does not report any chest pain shortness of breath palpitations nausea vomiting diarrhea subjective fevers or chills. Patient will be admitted to hospitalist service for management of intractable pain secondary to numerous arterial ulcers on bilateral lower extremities. Patient developed dizziness and posterior headache on the morning of 11/25/2020. While CT head was unrevealing MRI did show a punctate R parital acute CVA, as well severe stenosis involving the proximal aspect of the posterior cerebral artery. . PLAN: R parietal acute CVA - patient developed dizziness on the morning of 11/25/20 at ~815 am - NIH score at the time of exam 0 - stat CT head wo contrast showed no ICH or acute CVA - MRI showed a punctate R parietal acute CVA - MRA showed severe stenosis of proximal aspect of posterior cerebral artery - Neurology consult placed with Dr. Nagel - as patient is anticoagulated with warfarin, with a therapeutic INR of 2.6, he is inelible for tPA - neurology recommendations are greatly appreciated. Added ASA 81 mg. Ordered carotid US. Ordered 2D echo - will practice permissive HTN x 48 hours, will hold BB bu c/w torsemide in setting of afib and congestive heart failure. Posterior headache - trial fioricet Intractable pain of the lower extremities 2/2 numerous arterial ulcers: - received 8 mg IV morphine in ER, without marked improvement - ordered dilaudid in monitored setting - Dr. Mcclure advanced wound consult placed. Will apply santyl, cover with foam dressing PAD - s/p angioplasty in 06/[address] Tafoya of [facility] - ordered arterial dopplers of BLEs - will consult vascular surgery or IR depending on results - bedside dopplers identified DP on both legs - vascular surgery consult palced with Dr. Gross. Recommendations are greatly appreciate.d CKDIV - Cr 3.29 at baseline - Dr. Mora Mckeon consulted - avoid contrast media, nephrotoxins Biventricular CHF - resume home meds - appears clinically euvolemic CAD with AVR on coumadin - resume coumadin, daily INR - resume lipitor Afib - tele - resume warfarin, rate control with metoprolol DM2 - ISS and FSBS AC and HS - CC diet - hypoglycemic precautions DVT ppx: on coumadin Dispo: pending clinical improvement. VS, I&O, 24H, Fishbone Vital Signs/I&O Vital Signs Date Time Temp Pulse Resp B/P (MAP) Pulse Ox O2 Delivery O2 Flow Rate FiO2 11/25/20 14:20 18 Room Air 11/25/20 14:00 97.5 64 117/63 (81) 97 I&O- Last 24 Hours up to 6 AM 11/25/20 06:00 Intake Total 390 ml Balance 390 ml Laboratory Data 24H LABS Laboratory Tests 2 11/24/20 15:39: Lactic Acid Followup at 4 Hours 1.5 11/24/20 16:55: Bedside Glucose (Misc Panel) 166H 11/24/20 18:06: Bedside Glucose (Misc Panel) 204H 11/24/20 19:50: Bedside Glucose (Misc Panel) 216H 11/25/20 06:15: Immature Granulocyte % (Auto) 0.4, Neutrophils (%) (Auto) 75.5H, Lymphocytes (%) (Auto) 11.4L, Monocytes (%) (Auto) 8.3H, Eosinophils (%) (Auto) 3.8H, Basophils (%) (Auto) 0.6, Neutrophils # (Auto) 6.2, Lymphocytes # (Auto) 0.9L, Monocytes # (Auto) 0.7, Eosinophils # (Auto) 0.3, Basophils # (Auto) 0.1, Nucleated Red Blood Cells % (auto) 0.0, Prothrombin Time 28.4H, Prothromb Time International Ratio 2.62, Anion Gap 5L, Glomerular Filtration Rate 19.1L, Calcium Level 8.3L, Magnesium Level 2.6H, Total Bilirubin 0.5, Aspartate Amino Transf (AST/SGOT) 6L, Alanine Aminotransferase (ALT/SGPT) 19, Alkaline Phosphatase 72, Total Protein 7.2, Albumin 2.8L, Albumin/Globulin Ratio 0.6 11/25/20 11:58: Bedside Glucose (Misc Panel) 271H CBC/BMP Laboratory Tests 11/25/20 06:15 Microbiology Microbiology 11/24/20 Blood Culture - Preliminary, Resulted No growth after 24 hours . All specim... 11/24/20 Blood Culture - Preliminary, Resulted No growth after 24 hours . All specim... LISA RANGEL MD Nov 25, 2020 15:24
[2020-11-25] MEDS: ASPIRIN 81MG ENTERIC TABLET PO SCH (15:43)
[2020-11-25] MEDS: HumaLOG INSULIN (NovoLOG) PER UNIT SC SCH ×2 (17:30→20:31)
[2020-11-25] MEDS: WARFARIN SOD 4MG TAB PO SCH (17:44)
--- NOTE | 2020-11-25 18:16 | REP ---
INDICATION: CVA COMPARISON: None. TECHNIQUE: Garcia scale and color Doppler evaluation using linear high frequency transducer Findings: FINDINGS: Two-dimensional garcia scale and color images demonstrate moderate amounts of mixed atheromatous plaquing without significant stenosis or occlusion. Color Doppler interrogation demonstrates normal arterial wave patterns and velocities with no significant spectral broadening. Normal flow direction is appreciated in the bilateral vertebral arteries. ICA peak systolic velocity: Right 88.9 cm/s; Left 85.3 cm/s ICA diastolic velocity: Right 18.5 cm/s; Left 23.7 cm/s ECA peak systolic velocity: Right 72.0 cm/s; Left 60.4 cm/s CCA peak systolic velocity: Right 66.3 cm/s; Left 78.7 cm/s ICA/CCA ratio: Right 1.3 cm/s; Left 1.10 cm/s IMPRESSION: No hemodynamically significant areas of narrowing or stenosis appreciated. Based on set standards narrowing falls within the less than 50% range. <Electronically signed by Sebas Sun > 11/25/20 [id number]
--- NOTE | 2020-11-25 18:44 | CR.PDOC ---
General Date of Consultation: Nov 25, 2020 Consultation REASON FOR CONSULTATION/CHIEF COMPLAINT: bilateral lower extremity ulcers with pain and PAD HISTORY OF PRESENT ILLNESS: 75 year old man with multiple medical problems. Longstanding diabetes. non smoker, who presents with progressive worsening of wounds on his bilateral calves. He is at this point in a cycle of swelling due to heart failure -->blistering --> non healing wounds due to arterial insufficiency and has had at least one successful angioplasty with Dr. Pate who knows him well. The last angiogram showed that the foot is basically void of vessels with a PT at the arch but not much more. Of note he was admitted with leg pain and blisters and vascular consult was obt ained. Since the consult was placed he then developed stroke like symptoms and has been diagnosed by CT with a small right parieto/occipital infarct. A carotid duplex was ordered and is pending although on initial interpretation to my eye there does not appear to be stenosis >50% in either ICA. ALLERGIES: Please see below. HOME MEDICATIONS: Please see below. PAST MEDICAL HISTORY: 1. Hypertention, chf, cad, chronic kidney disease stage IV, PAD with ulceration and CLI PAST SURGICAL HISTORY: 1. Recent tibial angioplasty in left leg 2. remote history of 5x CABG and heart valve at [facility] FAMILY HISTORY: Unremarkable. SOCIAL HISTORY: , lives with his , walks with a walker outdoors and cane indoors, no longer smoking, no alcohol. REVIEW OF SYSTEMS: All systems reviewed were negative except stated above. PHYSICAL EXAMINATION: VITAL SIGNS: Please see below. GENERAL APPEARANCE: Awake comfortable. Somewhat slow deliberate speech but cognitively intact. HEENT: NCAT EXTREMITIES: Bilateral lower extremities have chronic venous stasis changes, hemosiderin deposition and hardening and hourglass deformities suggestive of chronic venous or chf wounds that have healed over time and recurred. Overlying this are areas of new blisters which are open and dressed with telfa along the anterior macedo medial calf and even at the toes and dorsum of the foot. More consistent with volume overload and blisters than venous hypertension. NEUROLOGICAL: Grossly appears to be intact, no obvious residual deficits. able to move both upper and lower extremities without difficulty. Slow speech. maybe a mild dysarthria is present otherwise no facial droop or memory/vision deficits noted grossly. PSYCHIATRIC: normal mood and affect. LABORATORY DATA: Please see below. ASSESSMENT/PLAN: 75 year old man with multiple cardiovascular risk factors now presents with worsening CLI in the bilateral lower extremities. I am not sure if the best course of action here is continued attempts at angioplasty or just conservative management and attempts to reduce edema/swelling. Ultimately I will leave this to Dr. Pate who already has a relationship with the patient. From a neurovascular standpoint. The Carotids appear mildly diseased with <50% stenosis bilaterally. No additional surgical intervention recommended. Consider additing additional antiplatelet to his coumadin (but risk should be weighed carefully with his fall risks) - Would also consider addition of a statin at high dose if he can tolerate it. Vital Signs/I&O Vital Signs Date Time Temp Pulse Resp B/P (MAP) Pulse Ox O2 Delivery O2 Flow Rate FiO2 11/25/20 16:22 18 Room Air 11/25/20 15:44 18 11/25/20 14:00 97.5 64 117/63 (81) I&O- Last 24 Hours up to 6 AM 11/25/20 06:00 Intake Total 390 ml Balance 390 ml Laboratory Data Labs 24H Laboratory Tests 2 11/24/20 19:50: Bedside Glucose (Misc Panel) 216H 11/25/20 06:15: Immature Granulocyte % (Auto) 0.4, Neutrophils (%) (Auto) 75.5H, Lymphocytes (%) (Auto) 11.4L, Monocytes (%) (Auto) 8.3H, Eosinophils (%) (Auto) 3.8H, Basophils (%) (Auto) 0.6, Neutrophils # (Auto) 6.2, Lymphocytes # (Auto) 0.9L, Monocytes # (Auto) 0.7, Eosinophils # (Auto) 0.3, Basophils # (Auto) 0.1, Nucleated Red Blood Cells % (auto) 0.0, Prothrombin Time 28.4H, Prothromb Time International Ratio 2.62, Anion Gap 5L, Glomerular Filtration Rate 19.1L, Calcium Level 8.3L, Magnesium Level 2.6H, Total Bilirubin 0.5, Aspartate Amino Transf (AST/SGOT) 6L, Alanine Aminotransferase (ALT/SGPT) 19, Alkaline Phosphatase 72, Total Protein 7.2, Albumin 2.8L, Albumin/Globulin Ratio 0.6 11/25/20 11:58: Bedside Glucose (Misc Panel) 271H 11/25/20 17:20: Bedside Glucose ([facility] Panel) 205H CBC/BMP Laboratory Tests 11/25/20 06:15 Microbiology Microbiology 11/24/20 Blood Culture - Preliminary, Resulted No growth after 24 hours . All specim... 11/24/20 Blood Culture - Preliminary, Resulted No growth after 24 hours . All specim... Allergies Coded Allergies: [place] (Verified Allergy, Severe, ANAPHYLAXIS, 11/09/14) Penicillins (Verified Allergy, Severe, Anaphylaxis, 02/17/20) HAS RECEIVED 2nd & 3RD GEN CEPHALOSPORINS w/o PROBLEM metformin (Verified Allergy, Severe, Tongue swelling, 07/02/18) Aslauan-Llb-Fgc Reductase Inhibitor (Verified Adverse Reaction, Intermediate, Altered Mental Status, 07/02/18) codeine (Verified Adverse Reaction, Mild, "out of it". , 02/17/20) mixed with guifenasin duloxetine (Unverified Adverse Reaction, Mild, Nausea and vomiting, 07/02/18) clindamycin (Verified Adverse Reaction, Unknown, DIARRHEA, 02/29/20) Home Medications Scheduled Cholecalciferol (Vitamin D3) (Vitamin D3) 50 Mcg Capsule, 2,000 UNITS PO DAILY, (Reported) TAKES AT NOON Citalopram Hydrobromide (Citalopram HBr) 20 Mg Tab, 10 MG PO QHS, (Reported) Collagenase Clostridium Hist. (Santyl) 30 Gm Oint...g., 1 APLCT TOP Q2D, (Reported) APPLY TO SHINS AND OPEN WOUNDS Echinacea (Echinacea) 380 Mg Cap, 380 MG PO DAILY, (Reported) Glipizide (Glipizide) 10 Mg Tab, 1.5 TABS PO BID, (Reported) Metoprolol Tartrate (Metoprolol Tartrate) 50 Mg Tab, 50 MG PO BID, (Reported) Polyethylene Glycol 3350 (Miralax) 119 Gm Powder, 17 GM PO QHS, (Reported) HOLD FOR DIARRHEA Potassium Gluconate (Potassium) 99 Mg Tablet, 595 MG PO DAILY, (Reported) TAKES AT 1200 Pregabalin (Pregabalin) 25 Mg Capsule, 25 MG PO BID, (Reported) Torsemide (Torsemide) 20 Mg Tablet, 20 MG PO BID, (Reported) TAKES WITH BREAKFAST AND DINNER Warfarin Sodium (Warfarin Sodium) 4 Mg Tablet, 4 MG PO 6XWK, (Reported) SUN/MON//SAT/SAT/SAT EVENINGS Warfarin Sodium (Warfarin Sodium) 4 Mg Tablet, 2 MG PO QWEEK, (Reported) SATURDAY EVENINGS Scheduled PRN Acetaminophen (Tylenol Extra Strength) 500 Mg Tablet, 1,000 MG PO Q6H PRN for PAIN, (Reported) Ammonium Lactate (Ammonium Lactate) 12% Cream..g., 1 DOSE TOP DAILY PRN for DRY SKIN, (Reported) APPLY TO FEET Pantoprazole Sodium (Pantoprazole Sodium) 40 Mg Tablet.dr, 40 MG PO DAILY PRN for HEARTBURN, (Reported) Dwaine Gross MD Nov 25, 2020 18:44
[2020-11-25 20:10] VITALS: BP 129/66
[2020-11-25] MEDS: MIRALAX *UNIT DOSE* 17GM PACKET PO SCH (20:48)
[2020-11-25] MEDS: CitaloPRAM (CeleXA) 10 MG TABLET PO SCH (20:49)
--- NOTE | 2020-11-25 22:33 | REPVR ---
PROCEDURE INFORMATION: Exam: MRA Neck Without Contrast Exam date and time: 11/25/2020 9:41 PM Age: 75 years old Clinical indication: Condition or disease; Patient HX: CVA found on mri earlier in the day; Additional info: Stroke TECHNIQUE: Imaging protocol: Magnetic resonance angiography of the neck without contrast. COMPARISON: MRA BRAIN W/O CONTRAST 11/25/2020 10:47 AM FINDINGS: Limitations: Patient motion. Right common carotid artery: No stenosis. No dissection or occlusion. Right internal carotid artery: No stenosis of the extracranial segment. No dissection or occlusion. Right external carotid artery: No stenosis. No dissection or occlusion of the origin. Right vertebral artery: No stenosis. No dissection or occlusion. Left common carotid artery: No stenosis. No dissection or occlusion. Left internal carotid artery: No stenosis of the extracranial segment. No dissection or occlusion. Left external carotid artery: No stenosis. No dissection or occlusion of the origin. Left vertebral artery: No stenosis. No dissection or occlusion. IMPRESSION: No hemodynamically significant stenosis. REFERENCES: NASCET CRITERIA. The degree of internal carotid artery stenosis is based on NASCET criteria. Normal is no stenosis. Mild is less than 50% stenosis. Moderate is 50-69% stenosis. Severe is 70% to 99% stenosis. Total occlusion is no detectable patent lumen. Electronically signed by: Lalo Coburn On 11/25/2020 22:33:22 PM
[2020-11-26] VITALS (7 sets, daily range): BP systolic 123–153; BP diastolic 66–76; O2SAT 94–96
[2020-11-26] MEDS: ACETAMINOPHEN TAB 650MG DOSE (2X325MG) PO PRN (01:51)
[2020-11-26] MEDS ORDERED: FIORICET TAB PO ONE (04:45)
[2020-11-26 07:08] LABS: BASO % 0.4 % (0.0-1.0); EOS # 0.3 10^3/uL (0.0-0.5); EOS % 2.6 % (0.0-3.0); HEMATOCRIT 26.2 % (42.0-52.0); HEMOGLOBIN 8.4 g/dl (13.5-17.5); LYMPH # 0.9 10^3/uL (1.5-5.0); MEAN CORPUSCULAR HEMOGLOBIN 33.6 pg (27.0-33.0); MEAN CORPUSCULAR HGB CONC 32.1 g/dl (32.0-36.5); MEAN CORPUSCULAR VOLUME 104.8 fl (80.0-96.0); MONO # 0.7 10^3/uL (0.0-0.8); MONO % 6.8 % (2.0-8.0); NEUTROPHILS % 80.8 % (36.0-66.0); PLATELET COUNT, AUTOMATED 111 10^3/uL (150-450); WHITE BLOOD COUNT 9.9 10^3/uL (4.0-10.0)
[2020-11-26 07:24] LABS: INR 3.23; PROTHROMBIN TIME 33.3 SECONDS (12.7-14.5)
[2020-11-26 07:33] LABS: ALBUMIN 2.5 GM/DL (3.2-5.2); BILIRUBIN,TOTAL 0.6 MG/DL (0.2-1.0); CALCIUM LEVEL 7.4 MG/DL (8.8-10.2); CREATININE FOR GFR 3.64 MG/DL (0.70-1.30); GLOMERULAR FILTRATION RATE 17.5 (>42); MAGNESIUM LEVEL 2.5 MG/DL (1.8-2.4); POTASSIUM SERUM 4.9 MEQ/L (3.5-5.1); TOTAL PROTEIN 6.7 GM/DL (6.4-8.2)
--- NOTE | 2020-11-26 08:46 | REP ---
INDICATION: hypoxia COMPARISON: 11/24/2020 TECHNIQUE: Portable AP view of the chest FINDINGS: Vague bibasilar opacities appear increased from prior examination. No obvious effusion or pneumothorax. Mediastinum and cardiac silhouette stable with mild cardiomegaly again suspected. Skeletal structures stable. IMPRESSION: Decreased inspiratory effort with increased bibasilar opacities suspected. <Electronically signed by Sebas Sun > 11/26/20 [id number]
[2020-11-26] MEDS: TORSEMIDE 20 MG TAB PO SCH ×2 (09:01→17:17)
[2020-11-26] MEDS: ASPIRIN 81MG ENTERIC TABLET PO SCH (09:01)
[2020-11-26] MEDS: HumaLOG INSULIN (NovoLOG) PER UNIT SC SCH ×4 (09:01→20:15)
[2020-11-26] MEDS: PREGABALIN 25 MG CAP (LYRICA) PO SCH ×2 (09:04→20:15)
[2020-11-26] MEDS: HYDROMORPHONE HCL 0.5 MG/ 0.5 ML SYRINGE (J1170 PER 1) IV PRN ×2 (09:04→22:36)
[2020-11-26] MEDS ORDERED: D5W/0.45% SODIUM CHLORIDE 1,000 ML IV SCH (11:00)
--- NOTE | 2020-11-26 11:13 | IPNPDOC ---
Date Seen The patient was seen on 11/26/20. Progress Note SUBJECTIVE: I was called to examine patient urgently on rounds by his nurse. Upon standing to work with physical therapy patient became dizzy and developed a posterior headache with blurred vision. Patient's NIH stroke scale was 0 at the time of exam. Patient states that he has poor vision at baseline and is difficult to determine if this is actually worsening. Patient was taken down for stat CT scan. OBJECTIVE PHYSICAL EXAMINATION: VITAL SIGNS: please see below General: NAD, comfortable HEENT: PERRLA, EOMI, sclerae clear Neck: supple, normal ROM, no JVD Respiratory: lungs CTAB, no wheeze, no rales, no crackles CVS: RRR, normal S1, S2, no murmurs Abdo: soft, no masses, no hepatosplenomegaly, BS+, no rebound tenderness Extremities: no edema, pulses 2+ MSK: no joint deformities, normal ROM Neuro: no focal neuro deficits, moving all 4 extremities, CN2-12 intact. Strength 5/5 in all 4 extremities. No nystagmus. No facial asymmetry no pupillary asymmetry no tongue deviation no uvular deviation. Psych: calm, cooperative, AAO x 3 LABORATORY DATA, IMAGING STUDIES, MICROBIOLOGY: Please see below. MRA brain (11/25/20): FINDINGS: ANTERIOR CIRCULATION: Right internal carotid artery: Intracranial segment is patent with no significant stenosis. No aneurysm. Right middle cerebral artery: No occlusion or significant stenosis. No aneurysm. Right anterior cerebral artery: No occlusion or significant stenosis. No aneurysm. Left internal carotid artery: Intracranial segment is patent with no significant stenosis. No aneurysm. Left middle cerebral artery: No occlusion or significant stenosis. No aneurysm. Left anterior cerebral artery: No occlusion or significant stenosis. No aneurysm. POSTERIOR CIRCULATION: Right vertebral artery: No occlusion or significant stenosis. No aneurysm. Left vertebral artery: No occlusion or significant stenosis. No aneurysm. Basilar artery: No occlusion or significant stenosis. No aneurysm. Right posterior cerebral artery: No occlusion or significant stenosis. No aneurysm. Left posterior cerebral artery: There is narrowing of the proximal left posterior cerebral artery with a suspected 70+% stenosis seen on image 201/92. The rest of the posterior cerebral artery does have normal signal. IMPRESSION: Suspect a severe stenosis involving the proximal aspect of the posterior cerebral artery. Echocardiogram: Ordered on 11/25/2020 DVT prophylaxis ordered?: She is on Coumadin ASSESSMENT AND PLAN: 75-year-old male with a history of coronary artery disease status post CABG, severe aortic stenosis status post AVR with bioprosthetic valve on Coumadin, atrial fibrillation, biventricular heart failure CKD stage IV, diabetes type 2, peripheral arterial disease status post angioplasty of the left lower extremity by Dr. Tafoya, CVA and numerous other conditions as shown below. Patient presents to the ER with intractable pain of the bilateral lower extremities overlying numerous arterial ulcers. Patient is followed by Dr. Hinson in the clinic and is seen once every 2 weeks. Patient underwent left leg angiogram in June [address] Tafoya which showed popliteal tibioperoneal and peroneal stenosis with single-vessel outflow of the left foot. He underwent popliteal TP trunk and peroneal artery angioplasty which improved flow to the left foot. AT and PT could not be recanalized. Patient received 8 mg of IV morphine in the ER with no improvement in his pain. At this time he does not report any chest pain shortness of breath palpitations nausea vomiting diarrhea subjective fevers or chills. Patient will be admitted to hospitalist service for management of intractable pain secondary to numerous arterial ulcers on bilateral lower extremities. Patient developed dizziness and posterior headache on the morning of 11/25/2020. While CT head was unrevealing MRI did show a punctate R parital acute CVA, as well severe stenosis involving the proximal aspect of the posterior cerebral artery. . PLAN: R parietal acute CVA - patient developed dizziness on the morning of 11/25/20 at ~815 am - NIH score at the time of exam 0, but developing issues with word finding and p osterior lean upon PT evaluation later in the day. - stat CT head wo contrast showed no ICH or acute CVA - MRI showed a punctate R parietal acute CVA - MRA showed severe stenosis of proximal aspect of posterior cerebral artery - Neurology consult placed with Dr. Nagel - speech therapy evaluation is placed. Given new pulmonary infiltrates, concern for aspiration. Will change diet to mech soft with thickened liquids while awaiting speech therapy eval, as nutrition is paramount to wound healing. - as patient is anticoagulated with warfarin, with a therapeutic INR of 2.6, he is inelible for tPA - neurology recommendations are greatly appreciated. Added ASA 81 mg. Ordered carotid US. Ordered 2D echo - will practice permissive HTN x 48 hours, will hold BB bu c/w torsemide in setting of afib and congestive heart failure. Hypoxia on 2L possibly 2/2 new aspiration pneumonia - CXR showing increased bibasilar opacities, possibly related to atelectasis? - at this time patient has not cough, no leukocytosis and no fever - will defer antibiotic therapy at this time - will obtain a procalcitonin level to help differentiate between infection - monitor clinically Posterior headache - trial fioricet, resolved headahce. Intractable pain of the lower extremities 2/2 numerous arterial ulcers: - received 8 mg IV morphine in ER, without marked improvement - ordered dilaudid in monitored setting - Dr. Mcclure advanced wound consult placed. Will apply santyl, cover with foam dressing PAD - s/p angioplasty in 06/[address] Tafoya of [facility] - ordered arterial dopplers of BLEs - will consult vascular surgery or IR depending on results - bedside dopplers identified DP on both legs - vascular surgery consult palced with Dr. Gross. Recommendations are greatly appreciated - consult reviewed. Added ASA. - will d/w Dr. Tafoya on Saturday11/28/20 regarding future plans for angiography CKDIV - Cr 3.64, trending up, BU 100. - Dr. Mckeon consulted - avoid contrast media, nephrotoxins - will obtain renal US, UA Biventricular CHF - resume home meds - appears clinically euvolemic CAD with AVR on coumadin - resume coumadin, daily INR - resume lipitor Afib - tele - resume warfarin, rate control with metoprolol DM2 - ISS and FSBS AC and HS - CC diet - hypoglycemic precautions DVT ppx: on coumadin Dispo: pending clinical improvement. VS, I&O, 24H, Fishbone Vital Signs/I&O Vital Signs Date Time Temp Pulse Resp B/P (MAP) Pulse Ox O2 Delivery O2 Flow Rate FiO2 11/26/20 09:04 18 Room Air 11/26/20 06:00 98.3 71 125/66 (85) 95 2.0 I&O- Last 24 Hours up to 6 AM 11/26/20 06:00 Intake Total 1320 ml Balance 1320 ml Laboratory Data 24H LABS Laboratory Tests 2 11/25/20 11:58: Bedside Glucose (Misc Panel) 271H 11/25/20 17:20: Bedside Glucose (Misc Panel) 205H 11/25/20 20:06: Bedside Glucose (Misc Panel) 211H 11/26/20 06:18: Immature Granulocyte % (Auto) 0.4, Neutrophils (%) (Auto) 80.8H, Lymphocytes (%) (Auto) 9.0L, Monocytes (%) (Auto) 6.8, Eosinophils (%) (Auto) 2.6, Basophils (%) (Auto) 0.4, Neutrophils # (Auto) 8.0, Lymphocytes # (Auto) 0.9L, Monocytes # (Auto) 0.7, Eosinophils # (Auto) 0.3, Basophils # (Auto) 0.0, Nucleated Red Blood Cells % (auto) 0.0, Prothrombin Time 33.3H, Prothromb Time International Ratio 3.23, Anion Gap 9, Glomerular Filtration Rate 17.5L, Calcium Level 7.4L, Magnesium Level 2.5H, Total Bilirubin 0.6, Aspartate Amino Transf (AST/SGOT) 15, Alanine Aminotransferase (ALT/SGPT) 18, Alkaline Phosphatase 64, Total Protein 6.7, Albumin 2.5L, Albumin/Globulin Ratio 0.6 CBC/BMP Laboratory Tests 11/26/20 06:18 Microbiology Microbiology 11/24/20 Blood Culture - Preliminary, Resulted No growth after 24 hours . All specim... 11/24/20 Blood Culture - Preliminary, Resulted No growth after 24 hours . All specim... LISA RANGEL MD Nov 26, 2020 11:13
[2020-11-26 11:37] LABS: PERCENT SATURATION 12.5 % (19.7-50.0)
--- NOTE | 2020-11-26 13:01 | REP ---
INDICATION: renal disease COMPARISON: 01/18/2019, 05/23/2020 TECHNIQUE: Real time reeves scale ultrasound examination using curved array transducer. FINDINGS: Bilateral kidneys are normal in contour, size, and reniform shape with increased central sinus fat and renovascular calcifications consistent with medical renal disease. No hydronephrosis, nephrolithiasis, obvious cystic or renal mass lesion identified. Small amount of perinephric fluid adjacent to the lower pole of the right kidney is essentially unchanged as compared with ultrasound dated 05/23/2020 and likely incidental. Right kidney measures 10.8 x 4.9 x 5.5 cm. Left kidney measures 11.3 x 4.4 x 5.8 cm. IMPRESSION: Chronic medical renal disease. No hydronephrosis. <Electronically signed by Sebas Sun > 11/26/20 [id number]
[2020-11-26] MEDS ORDERED: FERRIC CARBOXYMALTOSE INJ 750 MG, VIAL MATE ADAPTER 1 EACH in NS 250 ML IV ONE (15:00)
--- NOTE | 2020-11-26 16:36 | IPN ---
NEPHROLOGY PROGRESS NOTE DATE: 11/26/2020 SUBJECTIVE: Mr. Pabon was seen this morning at this bedside. He has pain and ulcers in his bilateral lower extremities. The patient had some altered mentation yesterday and MRI of his brain was done which did show an acute stroke. The patient feels that he has some memory deficit. He is still able to move all his limbs. The patient is known to have severe peripheral vascular disease in both lower extremities with prior angioplasty. He had a lower extremity arterial study done on 11/24 which did show multiple occluded arteries in his lower legs. The patient was seen by Vascular Surgery and was not felt to be in any urgent need for angiogram as the patient is not felt to be a suitable candidate for bypass surgery due to completely occluded distal arteries. The patient is also known to have significant chronic kidney disease and is a high risk for any dye studies. He also has a history of congestive heart failure and requires a significant amount of diuretics. OBJECTIVE: PHYSICAL EXAMINATION: VITAL SIGNS: Temperature is 98.3 degrees Fahrenheit, heart rate 70 per minute, respiratory rate 18 per minute, blood pressure 125/66 mm of mercury and oxygen saturation is 97% on 2 liters oxygen. HEENT: His head is atraumatic. NECK: Supple and JVD difficult to be assessed. HEART: Regular. LUNGS: Diminished breath sounds at the bases. ABDOMEN: Soft and nontender and bowel sounds are normal. EXTREMITIES: Without any cyanosis or clubbing. Bilateral lower extremity ulcers are covered with dressings. There is mild edema present on both legs. NEUROLOGICAL: He seems to be grossly intact. LABORATORY STUDIES: Today's labs show sodium of 139, potassium 4.9, CO2 19, BUN 101 and creatinine 3.64. Glucose 252 and calcium 7.4. A BNP level is 7,025. Total protein 6.7 and albumin 2.5. Hemoglobin is 8.4 and hematocrit 26.2. PROBLEMS: 1. Acute kidney injury superimposed on chronic kidney disease - The patient is known to have significant underlying chronic kidney disease. At this point I do not feel that the patient is over diuresed. I am going to stop his IV fluids due to risk of congestive heart failure. 2. Congestive heart failure - The patient is known to have congestive heart failure and he remains on Torsemide 20 mg twice daily. He is probably still slightly decompensated. He is high risk for acute renal failure due to aggressive diuresis, so I am going to leave him on the same amount. 3. Anemia at present the patient's anemia is slightly worse since admission. This could be hemodilutional effect. His iron level is only 28 and saturation 12.5%. He will need iron supplement. 4. Peripheral vascular disease - The patient is known to have significant peripheral vascular disease with prior angioplasty. He is high risk for any dye studies and is not considered a candidate for bypass due to occluded distal arteries. 5. 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
[2020-11-26] MEDS: WARFARIN SOD 4MG TAB PO SCH (17:17)
[2020-11-26] MEDS: MIRALAX *UNIT DOSE* 17GM PACKET PO SCH (20:09)
[2020-11-26] MEDS: CitaloPRAM (CeleXA) 10 MG TABLET PO SCH (20:15)
[2020-11-26] MEDS: METOPROLOL TART 50 MG TAB PO SCH (21:04)
[2020-11-27 06:00] VITALS: BP 132/70
[2020-11-27 07:11] LABS: BASO % 0.4 % (0.0-1.0); EOS # 0.5 10^3/uL (0.0-0.5); EOS % 5.3 % (0.0-3.0); HEMATOCRIT 25.7 % (42.0-52.0); HEMOGLOBIN 8.4 g/dl (13.5-17.5); LYMPH # 0.8 10^3/uL (1.5-5.0); LYMPH % 8.6 % (24.0-44.0); MEAN CORPUSCULAR HEMOGLOBIN 34.6 pg (27.0-33.0); MEAN CORPUSCULAR HGB CONC 32.7 g/dl (32.0-36.5); MEAN CORPUSCULAR VOLUME 105.8 fl (80.0-96.0); MONO # 0.6 10^3/uL (0.0-0.8); MONO % 7.1 % (2.0-8.0); NEUTROPHILS % 78.2 % (36.0-66.0); PLATELET COUNT, AUTOMATED 105 10^3/uL (150-450); RED BLOOD COUNT 2.43 10^6/uL (4.30-6.10)
[2020-11-27 07:23] LABS: INR 2.94
[2020-11-27 07:37] LABS: ALBUMIN 2.6 GM/DL (3.2-5.2); BILIRUBIN,TOTAL 0.5 MG/DL (0.2-1.0); CALCIUM LEVEL 7.8 MG/DL (8.8-10.2); CREATININE FOR GFR 3.89 MG/DL (0.70-1.30); GLOMERULAR FILTRATION RATE 16.2 (>42); MAGNESIUM LEVEL 2.6 MG/DL (1.8-2.4); POTASSIUM SERUM 4.7 MEQ/L (3.5-5.1); TOTAL PROTEIN 6.8 GM/DL (6.4-8.2)
[2020-11-27] MEDS: METOPROLOL TART 50 MG TAB PO SCH ×2 (09:01→21:31)
[2020-11-27] MEDS: ASPIRIN 81MG ENTERIC TABLET PO SCH (09:01)
[2020-11-27] MEDS: PREGABALIN 25 MG CAP (LYRICA) PO SCH ×2 (09:01→21:31)
[2020-11-27] MEDS: HumaLOG INSULIN (NovoLOG) PER UNIT SC SCH ×4 (09:01→21:31)
[2020-11-27] MEDS: SANTYL OINT 30GM TOP SCH (09:02)
[2020-11-27] MEDS: HYDROMORPHONE HCL 0.5 MG/ 0.5 ML SYRINGE (J1170 PER 1) IV PRN (09:02)
--- NOTE | 2020-11-27 10:15 | ECHO ---
ECHOCARDIOGRAM DATE OF PROCEDURE: 11/26/2020 Age: Gender: Height: 175 cm Weight: 91 kg REFERRING PHYSICIAN: LISA RANGEL MD INDICATION: Cerebral vascular accident DIMENSIONS: IV 1.2 cm LV 4.2 cm LVPW 1.3 cm RV 3.2 cm Aorta 3.4 cm Left atrium 5.8 cm Mitral E wave velocity 130 Mitral A wave 52 E prime septal 4.5 E prime lateral 6.9 FINDINGS: This study is of acceptable technical quality. The patient is in sinus rhythm. Left ventricle has normal size and normal systolic function. I estimate overall LV EF 65% to 70%. There appears to be subtle septal wall motion abnormality possibly related to conductive system disease. The right ventricle appears to have normal size and systolic function. The left atrium is severely enlarged. The right atrium was poorly visualized, but appears at least mildly enlarged too. Aortic valve was poorly seen. It is sclerotic, but I cannot comment on details of its anatomy. There are also degenerative abnormalities of mitral valve with prominent mitral valve calcifications, but based on limited views, mobility of the leaflets seems preserved. Tricuspid valve appears normal. Pulmonic valve was not well visualized. No pericardial effusion is noted. The inferior vena cava was not seen. The aortic root is normal. The aortic arch and abdominal aorta were not visualized. Doppler interrogation of the aortic valve reveals no significant stenosis; mean gradient is only 8 mmHg. There is trivial aortic insufficiency. There is also trivial mitral stenosis with mean gradient 3 mmHg and mild mitral insufficiency. There is [id number] tricuspid insufficiency with calculated pulmonary artery pressure of 50 mmHg corresponding to moderate pulmonary hypertension. Mitral inflow pattern and tissue Doppler imaging of the mitral annulus revealed grade 2 diastolic dysfunction. CONCLUSIONS: 1. Study is of fair technical quality. Underlying sinus rhythm with wide QRS complex. 2. Normal LV size with mild LVH and preserved LV systolic function, estimated LVEF of 65% to 70%. Grade 2 diastolic dysfunction. 3. Aortic sclerosis with trace insufficiency and trivial stenosis. 4. Degenerative abnormalities of mitral valve with mild mitral stenosis and mild mitral insufficiency. 5. Unable to estimate central venous pressure, but at least pulmonary hypertension. 6. Severe left atrial enlargement. 7. Inferior vena cava, aortic arch, and abdominal aorta were not visualized. [facility]
--- NOTE | 2020-11-27 10:37 | IPNPDOC ---
Date Seen The patient was seen on 11/27/20. Progress Note SUBJECTIVE: Patient was seen and examined at the bedside this morning. No acute events overnight. Patient continues to complain of significant pain in the bilateral lower extremities overlying the ulcers. He does not have any chest pain no shortness of breath or palpitation no fever no chills. He does not endorse any new neurological findings such as new weakness new numbness. Patient's headaches have resolved. He appears to be alert oriented and comfortable in bed. Legs are elevated on pillows as we have no offloading boots until Saturday. OBJECTIVE PHYSICAL EXAMINATION: VITAL SIGNS: please see below General: NAD, comfortable HEENT: PERRLA, EOMI, sclerae clear Neck: supple, normal ROM, distended neck veins Respiratory: lungs CTAB, no wheeze, no rales, no crackles CVS: RRR, normal S1, S2, no murmurs Abdo: soft, no masses, no hepatosplenomegaly, BS+, no rebound tenderness Extremities: no edema, pulses 2+ MSK: no joint deformities, normal ROM Neuro: no focal neuro deficits, moving all 4 extremities, CN2-12 intact. Strength 5/5 in all 4 extremities. No nystagmus. No facial asymmetry no pupillary asymmetry no tongue deviation no uvular deviation. Psych: calm, cooperative, AAO x 3 LABORATORY DATA, IMAGING STUDIES, MICROBIOLOGY: Please see below. MRA brain (11/25/20): FINDINGS: ANTERIOR CIRCULATION: Right internal carotid artery: Intracranial segment is patent with no significant stenosis. No aneurysm. Right middle cerebral artery: No occlusion or significant stenosis. No aneurysm. Right anterior cerebral artery: No occlusion or significant stenosis. No aneurysm. Left internal carotid artery: Intracranial segment is patent with no significant stenosis. No aneurysm. Left middle cerebral artery: No occlusion or significant stenosis. No aneurysm. Left anterior cerebral artery: No occlusion or significant stenosis. No aneurysm. POSTERIOR CIRCULATION: Right vertebral artery: No occlusion or significant stenosis. No aneurysm. Left vertebral artery: No occlusion or significant stenosis. No aneurysm. Basilar artery: No occlusion or significant stenosis. No aneurysm. Right posterior cerebral artery: No occlusion or significant stenosis. No aneurysm. Left posterior cerebral artery: There is narrowing of the proximal left posterior cerebral artery with a suspected 70+% stenosis seen on image 201/92. The rest of the posterior cerebral artery does have normal signal. IMPRESSION: Suspect a severe stenosis involving the proximal aspect of the posterior cerebral artery. Echocardiogram: 11/25/20 1. Study is of fair technical quality. Underlying sinus rhythm with wide QRS complex. 2. Normal LV size with mild LVH and preserved LV systolic function, estimated LVEF of 65% to 70%. Grade 2 diastolic dysfunction. 3. Aortic sclerosis with trace insufficiency and trivial stenosis. 4. Degenerative abnormalities of mitral valve with mild mitral stenosis and mild mitral insufficiency. 5. Unable to estimate central venous pressure, but at least pulmonary hypertension. 6. Severe left atrial enlargement. 7. Inferior vena cava, aortic arch, and abdominal aorta were not visualized. DVT prophylaxis ordered?: She is on Coumadin ASSESSMENT AND PLAN: 75-year-old male with a history of coronary artery disease status post CABG, severe aortic stenosis status post AVR with bioprosthetic valve on Coumadin, atrial fibrillation, biventricular heart failure CKD stage IV, diabetes type 2, peripheral arterial disease status post angioplasty of the left lower extremity by Dr. Tafoya, CVA and numerous other conditions as shown below. Patient presents to the ER with intractable pain of the bilateral lower extremities overlying numerous arterial ulcers. Patient is followed by Dr. Hinson in the clinic and is seen once every 2 weeks. Patient underwent left leg angiogram in June [address] Tafoya which showed popliteal tibioperoneal and peroneal stenosis with single-vessel outflow of the left foot. He underwent popliteal TP trunk and peroneal artery angioplasty which improved flow to the left foot. AT and PT could not be recanalized. Patient received 8 mg of IV morphine in the ER with no improvement in his pain. At this time he does not report any chest pain shortness of breath palpitations nausea vomiting diarrhea subjective fevers or chills. Patient will be admitted to hospitalist service for management of intractable pain secondary to numerous arterial ulcers on bilateral lower extremities. Patient developed dizziness and posterior headache on the morning of 11/25/2020. While CT head was unrevealing MRI did show a punctate R parital acute CVA, as well severe stenosis involving the proximal aspect of the posterior cerebral artery. . PLAN: R parietal acute CVA - patient developed dizziness on the morning of 11/25/20 at ~815 am - NIH score at the time of exam 0, but developing issues with word finding and posterior lean upon PT evaluation later in the day. - stat CT head wo contrast showed no ICH or acute CVA - MRI showed a punctate R parietal acute CVA - MRA showed severe stenosis of proximal aspect of posterior cerebral artery - Neurology consult placed with Dr. Nagel - speech therapy evaluation is placed. Given new pulmonary infiltrates, concern for aspiration. Will change diet to mech soft with thickened liquids while awaiting speech therapy eval, as nutrition is paramount to wound healing. - as patient is anticoagulated with warfarin, with a therapeutic INR of 2.6, he is ineligible for tPA - neurology recommendations are greatly appreciated. Added ASA 81 mg. Ordered carotid US. Ordered 2D echo. - will practice permissive HTN x 48 hours, will hold BB bu c/w torsemide in setting of afib and congestive heart failure. - 2D echo reviewed as above. Hypoxia on 2L possibly 2/2 new aspiration pneumonia - CXR showing increased bibasilar opacities, possibly related to atelectasis? - at this time patient has not cough, no leukocytosis and no fever - will defer antibiotic therapy at this time - will obtain a procalcitonin level to help differentiate between infection - monitor clinically Posterior headache - trial fioricet, resolved headahce. Intractable pain of the lower extremities 2/2 numerous arterial ulcers: - received 8 mg IV morphine in ER, without marked improvement - ordered dilaudid in monitored setting - Dr. Mcclure advanced wound consult placed. Will apply santyl, cover with foam dressing PAD - s/p angioplasty in 06/[address] Tafoya of [facility] - ordered arterial dopplers of BLEs - will consult vascular surgery or IR depending on results - bedside dopplers identified DP on both legs - vascular surgery consult palced with Dr. Gross. Recommendations are greatly appreciated - consult reviewed. Added ASA. No surgical intervention is offered at this time due to occuluded distal arteries. - will d/w Dr. Tafoya on Saturday11/28/20 regarding future plans for angiography SHIVA on CKDIV - Cr 3.89. baseline ~3.2 - Dr. Mckeon consulted - avoid contrast media, nephrotoxins - renal US shows no acute findings. - review Dr. Mckeon's note, patient may need dialysis. If so, may need to hold warfarin Diastolic CHF - resume home meds. Stop IVF. - distended neck veins suggest decompensation - given worsening kidney function, Dr. Mckeon would prefer to avoid diuretics for now. - last echo on 11/25/20. LVEF 65-80%. G2DD. - systolic function intact. - BNP is elevated to 7025., but patient appears to be clinically euvolemic. BNP elevation in older age and CKD IV with SHIVA. CAD with AVR on coumadin - resume coumadin, daily INR - resume lipitor Afib - tele - resume warfarin, rate control with metoprolol DM2 - ISS and FSBS AC and HS - CC diet - hypoglycemic precautions DVT ppx: on coumadin Dispo: pending clinical improvement. VS, I&O, 24H, Fishbone Vital Signs/I&O Vital Signs Date Time Temp Pulse Resp B/P (MAP) Pulse Ox O2 Delivery O2 Flow Rate FiO2 11/27/20 09:02 18 Nasal Cannula 11/27/20 09:01 73 136/72 11/27/20 06:00 98.4 95 1.0 I&O- Last 24 Hours up to 6 AM 11/27/20 06:00 Intake Total 1710 ml Balance 1710 ml Laboratory Data 24H LABS Laboratory Tests 2 11/26/20 12:00: Urine Color YELLOW, Urine Appearance HAZY, Urine pH 5.0, Urine Specific [place] 1.012, Urine Protein 2+H, Urine Glucose (UA) 1+H, Urine Ketones NEGATIVE, Urine Blood NEGATIVE, Urine Nitrite NEGATIVE, Urine Bilirubin NEGATIVE, Urine Urobilinogen 0.2, Urine Leukocyte Esterase 1+H, Urine WBC (Auto) 4H, Urine RBC (Auto) 1, Urine Hyaline Casts (Auto) 7, Urine Bacteria (Auto) NEGATIVE, Urine Squamous Epithelial Cells 0, Urine Sperm (Auto) 11/26/20 12:06: Bedside Glucose (Misc Panel) 191H 11/26/20 16:25: Bedside Glucose (Misc Panel) 282H 11/26/20 19:49: Bedside Glucose (Misc Panel) 336H 11/27/20 06:29: Immature Granulocyte % (Auto) 0.4, Neutrophils (%) (Auto) 78.2H, Lymphocytes (%) (Auto) 8.6L, Monocytes (%) (Auto) 7.1, Eosinophils (%) (Auto) 5.3H, Basophils (%) (Auto) 0.4, Neutrophils # (Auto) 7.0, Lymphocytes # (Auto) 0.8L, Monocytes # (Auto) 0.6, Eosinophils # (Auto) 0.5, Basophils # (Auto) 0.0, Nucleated Red Blood Cells % (auto) 0.0, Prothrombin Time 31.0H, Prothromb Time International Ratio 2.94, Anion Gap 8, Glomerular Filtration Rate 16.2L, Calcium Level 7.8L, Magnesium Level 2.6H, Total Bilirubin 0.5, Aspartate Amino Transf (AST/SGOT) 11, Alanine Aminotransferase (ALT/SGPT) 20, Alkaline Phosphatase 72, Total Protein 6.8, Albumin 2.6L, Albumin/Globulin Ratio 0.6 CBC/BMP Laboratory Tests 11/27/20 06:29 Microbiology Microbiology 11/26/20 Urine Culture - Final, Complete 11/24/20 Blood Culture - Preliminary, Resulted No Growth after 48 hours. All Specime... 11/24/20 Blood Culture - Preliminary, Resulted No Growth after 48 hours. All Specime... LISA RANGEL MD Nov 27, 2020 10:37
--- NOTE | 2020-11-27 10:56 | CR ---
CONSULTATION DATE: 11/26/2020 REFERRING PHYSICIAN: Marvin Mccray MD REASON FOR CONSULTATION: Headache and speech alteration. HISTORY OF PRESENT ILLNESS: Newton Bernard is a 75-year-old man with a history of Lewy body, coronary artery disease, aortic stenosis, status post bioprosthetic valve replacement, atrial fibrillation, chronic kidney disease, diabetes, peripheral arterial disease, who was admitted at [facility] due to numerous bilateral lower extremity arterial ulcers. He follows at wound clinic. He had arteriography of legs in 2020 which showed peripheral arterial disease and he had angioplasty. He developed slurred speech during his hospital stay. I was contacted four hours after his symptoms of onset. He is fully anticoagulated and was not a candidate for TPA. He also had headache. I recommended MRI, brain and DRBrijesh MRA, brain and neck. MRI of brain showed a small right parietal acute ischemic stroke. MRA, brain showed left posterior cerebral artery stenosis and MRA of neck was unremarkable. Carotid ultrasound showed less than 50% bilateral carotid artery stenosis. His ESR was 140. The patient that he follows with Dr. Piña for Lewy body dementia. He has pain in his feet and legs. PAST MEDICAL HISTORY: 1. Lewy body dementia/Parkinsonism. 2. Aortic valve stenosis, status post bioprosthetic valve replacement. 3. Coronary artery disease. 4. Status post CABG. 5. Obstructive sleep apnea syndrome. 6. Chronic kidney disease, stage 4. 7. Type 2 diabetes. 8. Peripheral arterial disease. 9. Pulmonary hypertension. 10. Dysphagia. 11. Anemia of chronic kidney disease. 12. History of cardiac arrest with ventricular fibrillation and a pulseless electrical activity. 13. Tracheostomy. 14. Critical illness myopathy. 15. Atrial fibrillation. 16. Strokes. 17. History of rib fracture. 18. T12 vertebral fracture. 19. Squamous cell carcinoma of skin. 20. Malignant melanoma. 21. Back surgery. 22. Amputation of toes. 23. Cataract surgery. SOCIAL HISTORY: He denies smoking, alcohol or illicit drugs. FAMILY HISTORY: There is a family history of heart disease, diabetes and hypertension. REVIEW OF SYSTEMS: All systems were reviewed and found to be noncontributory except as mentioned in history of present illness. ALLERGIES: PENICILLIN, METFORMIN, STATINS, CODEINE, CYMBALTA, CLINDAMYCIN, CUCUMBERS. HOME MEDICATIONS: 1. Protonix 40 mg p.o. daily p.r.n. for heartburn. 2. Tylenol as needed. 3. Coumadin 2-4 mg daily. 4. Torsemide 20 mg p.o. b.i.d. 5. Glipizide 1.5 mg p.o. b.i.d. 6. Metoprolol 50 mg p.o. b.i.d. 7. Lyrica 25 mg p.o. b.i.d. 8. Potassium gluconate. 9. Vitamin D3 2000 units p.o. daily. 10. Citalopram 10 mg p.o. daily. REVIEW OF SYSTEMS: All systems are reviewed and found to be noncontributory except as mentioned in history of present illness. PHYSICAL EXAMINATION: VITAL SIGNS: Temperature 97.5, pulse 64, respiratory rate 18, blood pressure 117/63, 97% saturation on room air. Creatinine 3.37, GFR 19, hemoglobin 9, platelet count 121. HEART: Irregularly irregular. LUNGS: Clear to auscultation. ABDOMEN: Soft, nontender, nondistended. EXTREMITIES: No pedal edema. He has ulcers of his feet, ankles due to peripheral arterial disease. NEUROLOGICAL: No nystagmus, tremor or dysmetria. The patient is awake, alert, oriented to place, year, name of president. Speech is normal with normal comprehension, repetition and no difficulty in the clarity and word finding of speech. Extraocular muscles are intact. No facial weakness. Tongue and uvula are midline. 5/5 strength in all four extremities. Deep tendon reflexes are 1+ in arms and knees and absent at ankles. He has decreased cold, pinprick, vibration sensation in his feet. Gait is mildly unsteady. ASSESSMENT: 1. Right parietal tiny acute lacunar stroke. 2. Moderate left posterior cerebral artery stenosis. 3. Atrial fibrillation, bioprosthetic aortic valve. 4. Coronary and peripheral arterial disease. 5. Lewy body dementia/Parkinsonism. PLAN: 1. Aspirin 81 mg p.o. daily and continue anticoagulation with Coumadin with target INR between 2-3. 2. Check fasting lipid profile. 3. His symptoms have resolved and likely he will not have any deficit from this tiny acute lacunar stroke. 4. Physical and occupational therapy. 5. Follow with Dr. Piña as planned.
[2020-11-27 12:36] VITALS: O2SAT 96
--- NOTE | 2020-11-27 12:43 | IPN ---
NEPHROLOGY PROGRESS NOTE DATE: 11/27/2020 SUBJECTIVE: Mr. Pabon is seen this morning on his bedside. He just had his dressing changes done and reports severe pain in both feet and legs. He denies any nausea or vomiting. His chronic dyspnea is unchanged. There is no fever or chills. PHYSICAL EXAMINATION: VITAL SIGNS: Temperature 98.4 degrees Fahrenheit, heart rate 72 per minute, respiratory rate 18 per minute, blood pressure 136/72 mmHg, oxygen saturation 95% on 1 liter oxygen. HEAD: Atraumatic. NECK: Supple and jugular venous distention (JVD) is elevated at least about 12-13 cm above sternal angle. HEART SOUNDS: Regular. LUNGS: Dismissed breath sounds at bases.. ABDOMEN: Soft and nontender. Bowel sounds are normal. EXTREMITIES: Without any cyanosis or clubbing. Both legs have ulcers which are covered with dressings at present. NEUROLOGIC: He is at his baseline mentation. LABORATORY REVIEW: Today's labs show WBC 9.0, hemoglobin 8.4, hematocrit 25.7, platelets 105. Sodium 142, potassium 4.7, CO2 20, BUN 95, creatinine 3.89, glucose 219, calcium 7.8. Albumin level is 2.6. PROBLEMS: 1. Acute kidney injury superimposed on chronic kidney disease. Kidney function is gradually worsening. He is not on any nephrotoxic medications at present. I am holding his diuretic for now to see if his kidney function would improve, though he does not look dehydrated to me on clinical exam. It is quite likely that he will need dialysis and I have discussed with the patient. He is willing to undergo dialysis if needed. 2. Congestive heart failure. His neck veins are quite elevated. I am holding diuretic today to see if his kidney function would improve. I would not give him any intravenous (IV) fluid. 3. Anemia. At present, his anemia is stable. He was given a dose of intravenous iron yesterday and we will watch him. 4. Peripheral vascular disease. Patient has significant peripheral vascular disease in both lower extremities. His ulcers on the legs are not healing. He is not a candidate for any bypass procedure, as most of the blood vessels are completely occluded. 5. Atrial fibrillation. Patient remains on metoprolol and Coumadin. Will have to hold Coumadin if dialysis becomes imminent and we need to get Permacath placed. We will watch him for the next 24 hours and then make a decision.
[2020-11-27 14:00] VITALS: BP 131/96
[2020-11-27] MEDS: WARFARIN SOD 4MG TAB PO SCH (17:31)
[2020-11-27 21:00] VITALS: O2SAT 90
[2020-11-27] MEDS: MIRALAX *UNIT DOSE* 17GM PACKET PO SCH (21:31)
[2020-11-27] MEDS: CitaloPRAM (CeleXA) 10 MG TABLET PO SCH (21:31)
[2020-11-27 22:00] VITALS: BP 160/75
[2020-11-28 01:20] VITALS: BP 160/72
--- NOTE | 2020-11-28 02:49 | REPVR ---
PROCEDURE INFORMATION: Exam: CT Head Without Contrast Exam date and time: 11/28/2020 2:32 AM Age: 75 years old Clinical indication: Injury or trauma; Fall; Blunt trauma (contusions or hematomas); Consciousness not specified; Injury details: PT on blood thinners; Additional info: Fall, struck head, on warfarin TECHNIQUE: Imaging protocol: Computed tomography of the head without contrast. Radiation optimization: All CT scans at this facility use at least one of these dose optimization techniques: automated exposure control; mA and/or kV adjustment per patient size (includes targeted exams where dose is matched to clinical indication); or iterative reconstruction. COMPARISON: MRI-Brain without Contrast 11/25/2020 10:47 AM FINDINGS: Brain: Decreased attenuation of the supratentorial white matter is likely secondary to chronic microvascular ischemia. No acute intracranial hemorrhage. Cerebral ventricles: Ventricular and subarachnoid spaces are age appropriate. Paranasal sinuses: Minimal paranasal sinus disease. Mastoid air cells: Mild partial opacification of the mastoid air cells. Vasculature: Intracranial vascular calcification. Bones/joints: Unremarkable. No acute fracture. Soft tissues: Unremarkable. IMPRESSION: No acute intracranial abnormality. Electronically signed by: Lalo Coburn On 11/28/2020 02:48:29 AM
[2020-11-28 06:00] VITALS: BP 136/73
[2020-11-28 07:11] LABS: BASO % 0.4 % (0.0-1.0); EOS # 0.3 10^3/uL (0.0-0.5); EOS % 3.1 % (0.0-3.0); HEMATOCRIT 24.9 % (42.0-52.0); LYMPH % 10.7 % (24.0-44.0); MEAN CORPUSCULAR HEMOGLOBIN 33.8 pg (27.0-33.0); MEAN CORPUSCULAR HGB CONC 32.1 g/dl (32.0-36.5); MEAN CORPUSCULAR VOLUME 105.1 fl (80.0-96.0); MONO # 0.8 10^3/uL (0.0-0.8); MONO % 7.8 % (2.0-8.0); NEUTROPHILS # 7.5 10^3/uL (1.5-8.5); NEUTROPHILS % 77.4 % (36.0-66.0); PLATELET COUNT, AUTOMATED 111 10^3/uL (150-450); RED BLOOD COUNT 2.37 10^6/uL (4.30-6.10); WHITE BLOOD COUNT 9.6 10^3/uL (4.0-10.0)
[2020-11-28 07:20] LABS: PROTHROMBIN TIME 31.5 SECONDS (12.7-14.5)
[2020-11-28 07:24] LABS: ALBUMIN 2.5 GM/DL (3.2-5.2); ALT/SGPT 22 U/L (12-78); BILIRUBIN,TOTAL 0.7 MG/DL (0.2-1.0); BLOOD UREA NITROGEN 91 MG/DL (7-18); CALCIUM LEVEL 7.9 MG/DL (8.8-10.2); CARBON DIOXIDE LEVEL 21 MEQ/L (21-32); CHLORIDE LEVEL 112 MEQ/L (98-107); CREATININE FOR GFR 3.67 MG/DL (0.70-1.30); GLOMERULAR FILTRATION RATE 17.3 (>42); GLUCOSE, FASTING 199 MG/DL (70-100); MAGNESIUM LEVEL 2.7 MG/DL (1.8-2.4); POTASSIUM SERUM 4.9 MEQ/L (3.5-5.1); SODIUM LEVEL 140 MEQ/L (136-145); TOTAL PROTEIN 6.7 GM/DL (6.4-8.2)
[2020-11-28] MEDS: HumaLOG INSULIN (NovoLOG) PER UNIT SC SCH ×4 (08:40→20:46)
[2020-11-28] MEDS: ASPIRIN 81MG ENTERIC TABLET PO SCH (08:40)
[2020-11-28] MEDS: PREGABALIN 25 MG CAP (LYRICA) PO SCH ×2 (08:40→20:45)
[2020-11-28] MEDS: METOPROLOL TART 50 MG TAB PO SCH ×2 (08:44→20:45)
[2020-11-28 09:00] VITALS: O2SAT 93
--- NOTE | 2020-11-28 10:18 | IPNPDOC ---
Date Seen The patient was seen on 11/28/20. Progress Note SUBJECTIVE: Patient was seen and examined at the bedside this morning. No acute events overnight. Patient continues to complain of significant pain in the bilateral lower extremities overlying the ulcers. He does not have any chest pain no shortness of breath or palpitation no fever no chills. He does not endorse any new neurological findings such as new weakness new numbness. Patient's headaches have resolved OBJECTIVE PHYSICAL EXAMINATION: VITAL SIGNS: please see below General: NAD, comfortable HEENT: PERRLA, EOMI, sclerae clear Neck: supple, normal ROM, distended neck veins Respiratory: crackles at lung bases. CVS: RRR, normal S1, S2, no murmurs Abdo: soft, no masses, no hepatosplenomegaly, BS+, no rebound tenderness Extremities: no edema, pulses not palpable. No mottling of toes. MSK: no joint deformities, normal ROM Neuro: no focal neuro deficits, moving all 4 extremities, CN2-12 intact. Strength 5/5 in all 4 extremities. No nystagmus. No facial asymmetry no pupillary asymmetry no tongue deviation no uvular deviation. Psych: calm, cooperative, AAO x 3 LABORATORY DATA, IMAGING STUDIES, MICROBIOLOGY: Please see below. MRA brain (11/25/20): FINDINGS: ANTERIOR CIRCULATION: Right internal carotid artery: Intracranial segment is patent with no significant stenosis. No aneurysm. Right middle cerebral artery: No occlusion or significant stenosis. No aneurysm. Right anterior cerebral artery: No occlusion or significant stenosis. No aneurysm. Left internal carotid artery: Intracranial segment is patent with no significant stenosis. No aneurysm. Left middle cerebral artery: No occlusion or significant stenosis. No aneurysm. Left anterior cerebral artery: No occlusion or significant stenosis. No aneurysm. POSTERIOR CIRCULATION: Right vertebral artery: No occlusion or significant stenosis. No aneurysm. Left vertebral artery: No occlusion or significant stenosis. No aneurysm. Basilar artery: No occlusion or significant stenosis. No aneurysm. Right posterior cerebral artery: No occlusion or significant stenosis. No aneurysm. Left posterior cerebral artery: There is narrowing of the proximal left posterior cerebral artery with a suspected 70+% stenosis seen on image 201/92. The rest of the posterior cerebral artery does have normal signal. IMPRESSION: Suspect a severe stenosis involving the proximal aspect of the posterior cerebral artery. Echocardiogram: 11/25/20 1. Study is of fair technical quality. Underlying sinus rhythm with wide QRS complex. 2. Normal LV size with mild LVH and preserved LV systolic function, estimated LVEF of 65% to 70%. Grade 2 diastolic dysfunction. 3. Aortic sclerosis with trace insufficiency and trivial stenosis. 4. Degenerative abnormalities of mitral valve with mild mitral stenosis and mild mitral insufficiency. 5. Unable to estimate central venous pressure, but at least pulmonary hypertension. 6. Severe left atrial enlargement. 7. Inferior vena cava, aortic arch, and abdominal aorta were not visualized. DVT prophylaxis ordered?: She is on Coumadin ASSESSMENT AND PLAN: 75-year-old male with a history of coronary artery disease status post CABG, severe aortic stenosis status post AVR with bioprosthetic valve on Coumadin, atrial fibrillation, biventricular heart failure CKD stage IV, diabetes type 2, peripheral arterial disease status post angioplasty of the left lower extremity by Dr. Tafoya, CVA and numerous other conditions as shown below. Patient presents to the ER with intractable pain of the bilateral lower extremities overlying numerous arterial ulcers. Patient is followed by Dr. Hinson in the clinic and is seen once every 2 weeks. Patient underwent left leg angiogram in June [address] Tafoya which showed popliteal tibioperoneal and peroneal stenosis with single-vessel outflow of the left foot. He underwent popliteal TP trunk and peroneal artery angioplasty which improved flow to the left foot. AT and PT could not be recanalized. Patient received 8 mg of IV mor phine in the ER with no improvement in his pain. At this time he does not report any chest pain shortness of breath palpitations nausea vomiting diarrhea subjective fevers or chills. Patient will be admitted to hospitalist service for management of intractable pain secondary to numerous arterial ulcers on bilateral lower extremities. Patient developed dizziness and posterior headache on the morning of 11/25/2020. While CT head was unrevealing MRI did show a punctate R parital acute CVA, as well severe stenosis involving the proximal aspect of the posterior cerebral artery. . PLAN: R parietal acute CVA - patient developed dizziness on the morning of 11/25/20 at ~815 am - NIH score at the time of exam 0, but developing issues with word finding and posterior lean upon PT evaluation later in the day. - stat CT head wo contrast showed no ICH or acute CVA - MRI showed a punctate R parietal acute CVA - MRA showed severe stenosis of proximal aspect of posterior cerebral artery - Neurology consult placed with Dr. Nagel - speech therapy evaluation is placed. Given new pulmonary infiltrates, concern for aspiration. Will change diet to mech soft with thickened liquids while awaiting speech therapy eval, as nutrition is paramount to wound healing. - as patient is anticoagulated with warfarin, with a therapeutic INR of 2.6, he is ineligible for tPA - neurology recommendations are greatly appreciated. Added ASA 81 mg. carotid US shows no significant stenosis. 2D echo reviewed as above. - resumed metoprolol. - 2D echo reviewed as above. Hypoxia on 2L possibly 2/2 new aspiration pneumonia - CXR showing increased bibasilar opacities, possibly related to atelectasis? - at this time patient has not cough, no leukocytosis and no fever - will defer antibiotic therapy at this time - will obtain a procalcitonin level to help differentiate between infection - monitor clinically Posterior headache - trial fioricet, resolved headahce. Intractable pain of the lower extremities 2/2 numerous arterial ulcers: - received 8 mg IV morphine in ER, without marked improvement - ordered dilaudid in monitored setting - Dr. Mcclure advanced wound consult placed. Will apply santyl, cover with foam dressing PAD - s/p angioplasty in 06/[address] Tafoya of [facility] - ordered arterial dopplers of BLEs - will consult vascular surgery or IR depending on results - bedside dopplers identified DP on both legs - vascular surgery consult palced with Dr. Gross. Recommendations are greatly appreciated - consult reviewed. Added ASA. No surgical intervention is offered at this time due to occluded distal arteries. - attempted to reach Dr. Tafoya regarding future plans for angiography on 11/07 06/26, however she is not watermelon inspector. SHIVA on CKDIV - Cr 3.67 today - Dr. Mckeon consulted - avoid contrast media, nephrotoxins - renal US shows no acute findings. - d/w Dr. Mckeon. Plan for HD - I d/w Dr. Gross, plan to insert permacath for HD today. INR of 3.[address] Gross. - will c/w warfarin this evening. Diastolic CHF - resume home meds. Stop IVF. - distended neck veins suggest decompensation - given worsening kidney function, Dr. Mckeon would prefer to avoid diuretics for now. - last echo on 11/25/20. LVEF 65-80%. G2DD. - systolic function intact. - BNP is elevated to 7025., but patient appears to be fluid overloaded. - d/w Dr. Mckeon, plan to start patient on dialysis, which will help control fluid status. CAD with AVR on coumadin - resume coumadin, daily INR - resume lipitor Afib - tele - resume warfarin, rate control with metoprolol DM2 - ISS and FSBS AC and HS - CC diet - hypoglycemic precautions DVT ppx: on coumadin Dispo: pending clinical improvement. VS, I&O, 24H, Fishbone Vital Signs/I&O Vital Signs Date Time Temp Pulse Resp B/P (MAP) Pulse Ox O2 Delivery O2 Flow Rate FiO2 11/28/20 08:44 73 156/75 11/28/20 06:00 97.2 18 94 Nasal Cannula 1.0 I&O- Last 24 Hours up to 6 AM 11/28/20 06:00 Intake Total 1560 ml Output Total 1850 ml Balance -290 ml Laboratory Data 24H LABS Laboratory Tests 2 11/27/20 12:32: Bedside Glucose (Misc Panel) 237H 11/27/20 16:26: Bedside Glucose (Misc Panel) 251H 11/27/20 21:23: Bedside Glucose (Misc Panel) 285H 11/28/20 06:32: Immature Granulocyte % (Auto) 0.6, Neutrophils (%) (Auto) 77.4H, Lymphocytes (%) (Auto) 10.7L, Monocytes (%) (Auto) 7.8, Eosinophils (%) (Auto) 3.1H, Basophils (%) (Auto) 0.4, Neutrophils # (Auto) 7.5, Lymphocytes # (Auto) 1.0L, Monocytes # (Auto) 0.8, Eosinophils # (Auto) 0.3, Basophils # (Auto) 0.0, Nucleated Red Blood Cells % (auto) 0.0, Prothrombin Time 31.5H, Prothromb Time International Ratio 3.00, Anion Gap 7L, Glomerular Filtration Rate 17.3L, Calcium Level 7.9L, Magnesium Level 2.7H, Total Bilirubin 0.7, Aspartate Amino Transf (AST/SGOT) 14, Alanine Aminotransferase (ALT/SGPT) 22, Alkaline Phosphatase 80, Total Protein 6.7, Albumin 2.5L, Albumin/Globulin Ratio 0.6 CBC/BMP Laboratory Tests 11/28/20 06:32 Microbiology Microbiology 11/26/20 Urine Culture - Final, Complete 11/24/20 Blood Culture - Preliminary, Resulted No Growth after 72 hours. All specime... 11/24/20 Blood Culture - Preliminary, Resulted No Growth after 72 hours. All specime... LISA RANGEL MD Nov 28, 2020 10:18
[2020-11-28] MEDS ORDERED: FUROSEMIDE 100MG/10ML VIAL (J1940) IV ONE (10:50)
--- NOTE | 2020-11-28 12:14 | IPN ---
PROGRESS NOTE DATE: 11/28/2020 SUBJECTIVE: Mr. Pabon is seen this morning on his bedside. He looks more tachypneic and fatigued today. He has no nausea or vomiting. His diuretic was stopped yesterday due to worsening kidney function but he seems to be more short of breath today. I also discussed with him about potential need for dialysis yesterday and he did agree for it. Today, the Hospitalist have also discussed with him and his both and they have again consented for dialysis. OBJECTIVE: VITAL SIGNS: Temperature is 97.2 degrees Fahrenheit, heart rate is 72 per minute, and respiratory rate is 18 per minute. Blood pressure is 156/75 mmHg and oxygen saturation 94% on 1 liter oxygen. HEENT: Head is atraumatic. NECK: Supple. JVD is markedly elevated. HEART: His heart sounds are regular and without a pericardial friction rub. LUNGS: Diminished breath sounds and basilar rales. ABDOMEN: Soft and nontender. Bowel sounds are normal. EXTREMITIES: No cyanosis or clubbing. Lower extremity edema is trace. Bilateral lower extremity ulcers are covered with dressings. NEUROLOGIC: He is awake and without any focal deficit. LABORATORY DATA: Today's labs shows a WBC count of 9.6, hemoglobin 8.0 and hematocrit 24.9. INR is 3.0 today. Sodium is 140, potassium is 4.9, CO2 21, BUN 91, creatinine 3.67, glucose 199 and calcium is 7.9. Total protein 6.7 and albumin 2.5. PROBLEMS: 1. Congestive heart failure. His volume status seems to be decompensated now. His diuretic was held, however he got volume overloaded. I am going to give him Lasix 100 mg intravenous one dose now and then we will prepare for dialysis. 2. Acute on chronic kidney disease. Patient has a known history of advanced chronic kidney disease and now kidney function is slightly worse. I discussed with him again about potential need for dialysis. I also discussed with his over the phone and explained to her at length about his options. I answered all her questions. Both the patient and his consented for dialysis. Vascular Surgery has been consulted for a Perm-A-Cath placement. Patient will be dialyzed tomorrow morning. 3. Anemia, at present this anemia is stable and does not need any urgent transfusion. He is volume overloaded due to which his hemoglobin is slightly lower than yesterday. 4. Chronic anticoagulation, patient has been on chronic anticoagulation and INR is 3.0. Vascular Surgery is willing to go ahead with the catheter placement. 5. Peripheral vascular disease. Patient has significant peripheral vascular disease with multiple occluded small arteries in the lower legs. He is not considered a suitable candidate for a bypass procedure, however angioplasty could be an option. As he is now starting dialysis, there will be no contraindication for using dye for any angioplasty procedures.
[2020-11-28 12:43] LABS: HEPATITIS B SURFACE ANTIBODY NEGATIVE (POSITIVE)
[2020-11-28 12:52] LABS: FOLATE 7.1 NG/ML
[2020-11-28 12:53] LABS: HEPATITIS B SURFACE ANTIGEN NEGATIVE (NEGATIVE)
[2020-11-28 13:21] LABS: HEPATITIS C VIRUS ABY INDEX 0.1 INDEX (<0.8)
[2020-11-28 13:22] LABS: HEPATITIS B CORE ANTIBODY IGM NEGATIVE (NEGATIVE)
[2020-11-28] MEDS ORDERED: LIDOCAINE 1% MDV 20ML VIAL As Ordered ONE (13:42)
[2020-11-28] MEDS ORDERED: fentaNYL 100 MCG/2 ML INJECTION (J3010) As Ordered ONE (13:45)
[2020-11-28] MEDS ORDERED: MIDAZOLAM INJ 2MG/2ML VIAL (J2250 PER 1MG) As Ordered ONE (13:45)
--- NOTE | 2020-11-28 15:42 | RO ---
OPERATIVE NOTE DATE OF OPERATION: 11/28/2020 TIME: Approximately 2 p.m. PREOPERATIVE DIAGNOSIS: End-stage renal disease with need for permanent hemodialysis access. POSTOPERATIVE DIAGNOSIS: End-stage renal disease with need for permanent hemodialysis access. PROCEDURE PERFORMED: Tunneled IJ 19 cm dual-lumen GlidePath hemodialysis catheter for permanent hemodialysis. SURGEON: Dwaine Gross MD TRADE RECRUITER: No qualified rn surgical was available for the procedure. ANESTHESIA: ESTIMATED BLOOD LOSS: Minimal. SPECIMEN: None COMPLICATIONS: None. INDICATIONS: Mr. Bernard is a 75-year-old gentleman known to Dr. Tafoya for PVD. I saw him for PVD over the weekend. He was also incidentally having a stroke and ultimately as his hospitalization progressed, he developed worsening chronic renal insufficiency. The newspaper press operator apprentice thought he would benefit from a permanent hemodialysis access and thus I was consulted. We decided to move forward with a PermCath despite his INR being 3. The patient agreed to move forward. PROCEDURE IN DETAIL: The patient was taken to the operating room to the interventional suite and his right neck and chest were prepped and draped in standard sterile fashion. Ultrasound-guided access into the right internal jugular vein was obtained. A micropuncture needle and sheath were inserted. Following this, an Amplatz wire was inserted into the IVC under fluoroscopic guidance. With the Amplatz wire now in place, I then made a separate skin patti on the chest wall after anesthetizing this with lidocaine and a tunneling device was used to carry the guidewire catheter underneath the skin, taking care not to twist or kink. We then dilated up serially and ultimately placed a 12 Kiswahili peel-away sheath in the IJ with the tip at the SVC-right atrial junction. Then the catheter was inserted, taking care not to twist or kink through the peel-away sheath. Once complete that I passed the Amplatz through the lumens and flushed and withdrew from both lumens with heparinized saline. The catheter was now in positioning. A spot image was taken to confirm the tip was at the SVC-right atrial junction and at this point, I then secured the catheter to the skin with 2-0 Prolene and closed the jugular venotomy skin site with a Monocryl suture. The patient tolerated the entire procedure without any difficulty, a heparin lock on the ports, capped the catheter sterilely and the patient was transferred to the recovery room in stable condition. I was present and performed all critical portions of the procedure. OUTCOME: Successful placement of a right tunneled IJ the dual lumen hemodialysis catheter for hemodialysis. He may use this catheter immediately. FABRICIO
[2020-11-28] MEDS: WARFARIN SOD 4MG TAB PO SCH (18:06)
[2020-11-28 20:00] VITALS: BP 155/75
[2020-11-28] MEDS ORDERED: BALMEX CREAM 60GM TOP PRN (20:00)
[2020-11-28] MEDS: MIRALAX *UNIT DOSE* 17GM PACKET PO SCH (20:32)
[2020-11-28] MEDS: CitaloPRAM (CeleXA) 10 MG TABLET PO SCH (20:45)
[2020-11-29 06:00] VITALS: BP 153/75
[2020-11-29 06:08] LABS: BASO % 0.5 % (0.0-1.0); EOS # 0.4 10^3/uL (0.0-0.5); HEMATOCRIT 24.8 % (42.0-52.0); HEMOGLOBIN 7.9 g/dl (13.5-17.5); LYMPH # 0.9 10^3/uL (1.5-5.0); LYMPH % 9.9 % (24.0-44.0); MEAN CORPUSCULAR HEMOGLOBIN 33.6 pg (27.0-33.0); MEAN CORPUSCULAR HGB CONC 31.9 g/dl (32.0-36.5); MEAN CORPUSCULAR VOLUME 105.5 fl (80.0-96.0); MONO # 0.7 10^3/uL (0.0-0.8); NEUTROPHILS # 6.8 10^3/uL (1.5-8.5); NEUTROPHILS % 76.8 % (36.0-66.0); PLATELET COUNT, AUTOMATED 119 10^3/uL (150-450); RED BLOOD COUNT 2.35 10^6/uL (4.30-6.10); WHITE BLOOD COUNT 8.8 10^3/uL (4.0-10.0)
[2020-11-29 06:26] LABS: INR 2.67; PROTHROMBIN TIME 28.7 SECONDS (12.7-14.5)
[2020-11-29 06:36] LABS: ALBUMIN 2.4 GM/DL (3.2-5.2); BILIRUBIN,TOTAL 0.7 MG/DL (0.2-1.0); CALCIUM LEVEL 8.4 MG/DL (8.8-10.2); CREATININE FOR GFR 3.42 MG/DL (0.70-1.30); GLOMERULAR FILTRATION RATE 18.8 (>42); MAGNESIUM LEVEL 2.6 MG/DL (1.8-2.4); POTASSIUM SERUM 4.6 MEQ/L (3.5-5.1); TOTAL PROTEIN 7.3 GM/DL (6.4-8.2)
[2020-11-29] MEDS: ASPIRIN 81MG ENTERIC TABLET PO SCH (08:21)
[2020-11-29] MEDS: PREGABALIN 25 MG CAP (LYRICA) PO SCH ×2 (08:21→20:29)
[2020-11-29] MEDS: METOPROLOL TART 50 MG TAB PO SCH ×2 (08:22→20:30)
[2020-11-29] MEDS: HumaLOG INSULIN (NovoLOG) PER UNIT SC SCH ×4 (08:22→20:30)
[2020-11-29] MEDS: SANTYL OINT 30GM TOP SCH (08:23)
[2020-11-29] MEDS: ACETAMINOPHEN TAB 650MG DOSE (2X325MG) PO PRN (08:24)
[2020-11-29 11:17] VITALS: O2SAT 92
[2020-11-29] MEDS ORDERED: DARBEPOETIN 100 MCG/0.5 ML *DIALYSIS* SYRINGE (J0882) IV SCH (11:30)
--- NOTE | 2020-11-29 12:49 | IPN ---
NEPHROLOGY PROGRESS NOTE DATE: 11/29/2020 SUBJECTIVE: Mr. Bernard is seen this morning during hemodialysis. He underwent a right internal jugular vein Permacath placement yesterday by vascular surgery and patient is being dialyzed today for his first treatment. He has a known history of advanced chronic kidney disease, congestive heart failure and severe peripheral vascular disease with bilateral lower extremity superficial ischemic ulcers. Patient denies any nausea or vomiting this morning. Yesterday we also gave him 1 dose of diuretic in order to diurese him and he did diurese about 1.5 liters. PHYSICAL EXAMINATION: Temperature 97 degrees Fahrenheit, heart rate 72 per minute and respiratory rate 16 per minute. Blood pressure 151/75 mmHg and oxygen saturation between 92 and 98% on 2 liters oxygen. Head: Atraumatic. Neck: Supple and JVD about 9 cm above sternal angle. A new Permacath is present in the right internal jugular vein without any active bleeding. Heart: Sounds are regular. Lungs: Diminished breath sounds at dependent parts. Abdomen: Soft and nontender and bowel sounds are normal. Extremities: Without any cyanosis or clubbing. Bilateral lower extremity ulcers are covered with dressings. Neurologically: He is at his baseline mentation. LABORATORY DATA: Today's labs show WBC count 8.8, hemoglobin 7.9, hematocrit 24.8. Sodium 141, potassium 4.6, CO2 21, BUN 91, creatinine 3.42. PROBLEMS/PLAN: 1. Congestive heart failure: Volume status still decompensated. He is advanced in the disease so we are not going to try to diurese him anymore as he is being dialyzed today. We are trying to remove 1.5 liters of fluid today. 2. Acute on chronic kidney disease: Patient has advanced chronic kidney disease even at baseline. He has worsening kidney function and also has decompensated congestive heart failure. He is being dialyzed today for the first time and he is tolerating dialysis well. 3. Anemia: Patient has anemia due to iron deficiency and advanced chronic kidney disease. He was given Injectafer 750 mg just a couple of days ago and we will start with Aranesp 100 mcg once a week with the first dose probably tomorrow. 4. Bilateral lower extremity ulcers with peripheral vascular disease: Patient has significant peripheral vascular disease with superficial ulcers on both lower extremities. He continues to get dressing changes. 5. Chronic anticoagulation: Patient remains on Coumadin and low dose aspirin was also started due to a recent stroke.
[2020-11-29 14:00] VITALS: BP 141/64
--- NOTE | 2020-11-29 14:13 | CR ---
ADVANCED WOUND CARE CONSULTATION DATE: 11/29/2020 REQUESTING PHYSICIAN: LISA RANGEL MD REASON FOR CONSULTATION: Lower extremity wound care. Wound care telemedicine provides a visual assessment of a wound without the benefit of physical examination. It can assist with establishing a diagnosis and etiology. This allows for an initial treatment plan. As wounds often change, it may be necessary to modify the original care. Our recommendation is periodic wound reassessment to monitor treatment. Failure to comply may result in non-healing of the wound, wounds, or possible complications and/or a poor outcome. The recommendations given will serve as treatment options. As I will not be following this patient, this care plan will require the attending physician to give and sign orders. Upon discharge, outpatient follow-up can be scheduled at our [facility]. HISTORY OF PRESENT ILLNESS: A 75-year-old neuropathic diabetic male with advanced peripheral vascular disease, previous angioplasty of the left lower extremity, borderline renal failure now on dialysis was admitted for suicidal tendencies and declining health. It is my understanding that the patient had a CVA recently and has been diagnosed with early dementia. Patient has had significant bilateral lower extremity pain in the past which appears somewhat improved since dialysis. The dialysis has allowed for decompression of the lower extremities, improved gravitational dependent edema, improved cardiac output which allows for better oxygenation of tissues involving the feet and lower extremities. PHYSICAL EXAMINATION: On physical examination, the right lower extremity shows a wound cluster from the supramalleolar area down to the toes. There are multiple small punctate wounds with a serosanguinous drainage. There is one perimalleolar wound which appears somewhat larger than the others. The wound base of this larger wound shows fibrin slough with underlying superficial necrotic subcutaneous tissue. On the left lower extremity, the patient has scaling throughout the dorsal aspect of the foot. There is capillary refill bilaterally. The patient's nutritional status appears satisfactory. TREATMENT SUGGESTIONS: Adequate pain control is important and the patient appears more comfortable after dialysis. Non-narcotic pain medications such as tramadol may be helpful. In terms of the wounds, clean right and left lower extremities with Vashe for 10 minutes. Santyl a nickel-thick should be applied to all draining wounds. It works best on wound without dry eschar.. Santyl ideally is applied and changed once daily, however in this case it can be utilized every other day. In terms of the right medial supramalleolar wound, a consult with Dr. Thomas for bedside debridement would be helpful. Patient should have a hemoglobin A1c drawn for baseline and ideally the patient's blood glucose should be 180 or less. Moisturizer can be used on a p.r.n. basis for the lower extremities. Patient's diet should be supplemented with Glucerna and Paul on a daily basis. Arterial ultrasounds of right and left lower extremities should be obtained prior to discharge. Patient has been seen in our clinic in the past and we would be glad to follow-up once he has stabilized and is ready for discharge. Thank you for this consult. FABRICIO
--- NOTE | 2020-11-29 15:33 | IPNPDOC ---
Text Note Date of Service The patient was seen on 11/29/20. NOTE Subjective: No any acute events overnight. Patient had visual hallucinations in the morning Objective: GENERAL APPEARANCE: NAD HEENT: no scleral icterus, plus JVD, EOMI CARDIOVASCULAR: Irregularly irregular LUNGS: Diminished lung sounds bilaterally ABDOMEN: soft & not tender w palpation MUSCULOSKELETAL: no cyanosis, no swelling INTEGUMENT: no generalized pallor NEUROLOGICAL: cranial nerve function from 2-12 intact, follows commands, speech not dysarthric Assessment and plan Patient 75 years old male with past medical history of coronary artery disease status post CABG, severe aortic stenosis status post AVR with bioprosthetic valve on Coumadin, atrial fibrillation, biventricular heart failure CKD stage IV, diabetes type 2, peripheral arterial disease status post angioplasty of the left lower extremity by Dr. Tafoya presented to hospital with intractable pain of both legs. During the hospital stay patient developed CVA on 11/25/2020. MRI did show a punctate R parietal acute CVA, as well severe stenosis involving the proximal aspect of the posterior cerebral artery. R parietal acute CVA Diet was modified Continue warfarin and aspirin Continue PT/OT Hypoxia Most likely secondary to fluid overload. today resolved after dialysis Posterior headache Resolved Intractable pain of the lower extremities/multiple superficial wounds/peripheral artery diseases Pain management Follow field sales specialist recommendation Appreciate/agree with levers lace machine operator consult for possible debridement of the right leg Vascular surgeon recommended Dr Arellano consult who is now on vacation till next week Procalcitonin elevated to 1.8, I started cefazolin IV Acute on chronic kidney disease Dialysis was done today, 1.5 L was removed. Acute diastolic CHF Echo showed Normal LV size with mild LVH and preserved LV systolic function, estimated LVEF of 65% to 70%. Grade 2 diastolic dysfunction Patient overloaded, volume regulated by dialysis Anemia of chronic diseases Superimposed with iron deficiency anemia start Aranesp tomorrow as per nephro team Atrial fibrillation/coronary artery disease Continue Coumadin, monitor INR Continue statin, metoprolol Type 2 diabetes Insulin sliding scale Diabetes diet Palliative care encounter Libby ROMERO, I+O Libby ROMERO, I+O Laboratory Tests 11/29/20 05:51 Vital Signs Date Time Temp Pulse Resp B/P (MAP) Pulse Ox O2 Delivery O2 Flow Rate FiO2 11/29/20 15:08 95 Room Air 11/29/20 14:00 98.1 63 22 141/64 (89) 2.0 I&O- Last 24 Hours up to 6 AM 11/29/20 06:00 Intake Total 1260 ml Output Total 1550 ml Balance -290 ml SRAVANTHI LORENZANA DO Nov 29, 2020 15:33
[2020-11-29] MEDS ORDERED: ceFAZolin SOD 500 MG in D5W MINI-BAG PLUS 50 ML IV SCH (17:00)
[2020-11-29] MEDS: WARFARIN SOD 4MG TAB PO SCH (17:16)
[2020-11-29] MEDS: ceFAZolin SOD 1 GM in D5W MINI-BAG PLUS 50 ML IV SCH (17:18)
[2020-11-29] MEDS: CitaloPRAM (CeleXA) 10 MG TABLET PO SCH (20:29)
[2020-11-29] MEDS: MIRALAX *UNIT DOSE* 17GM PACKET PO SCH (20:30)
[2020-11-29] MEDS ORDERED: LEVEMIR (INSULIN DETEMIR) 1 UNITS/0.01ML SC SCH (21:00)
[2020-11-29 22:00] VITALS: BP 141/71
[2020-11-30] VITALS (8 sets, daily range): BP systolic 121–140; BP diastolic 64–70; O2SAT 93
[2020-11-30] MEDS: ACETAMINOPHEN TAB 650MG DOSE (2X325MG) PO PRN (01:59)
[2020-11-30 06:16] LABS: BASO # 0.1 10^3/uL (0.0-0.2); BASO % 0.7 % (0.0-1.0); EOS # 0.4 10^3/uL (0.0-0.5); EOS % 4.7 % (0.0-3.0); HEMATOCRIT 23.7 % (42.0-52.0); HEMOGLOBIN 7.7 g/dl (13.5-17.5); LYMPH % 11.7 % (24.0-44.0); MEAN CORPUSCULAR HEMOGLOBIN 34.1 pg (27.0-33.0); MEAN CORPUSCULAR HGB CONC 32.5 g/dl (32.0-36.5); MEAN CORPUSCULAR VOLUME 104.9 fl (80.0-96.0); MONO # 0.8 10^3/uL (0.0-0.8); MONO % 9.2 % (2.0-8.0); PLATELET COUNT, AUTOMATED 122 10^3/uL (150-450); RED BLOOD COUNT 2.26 10^6/uL (4.30-6.10); WHITE BLOOD COUNT 8.3 10^3/uL (4.0-10.0)
[2020-11-30 06:42] LABS: CREATININE FOR GFR 2.78 MG/DL (0.70-1.30); GLOMERULAR FILTRATION RATE 23.8 (>42); POTASSIUM SERUM 4.6 MEQ/L (3.5-5.1)
[2020-11-30 06:43] LABS: ALBUMIN 2.3 GM/DL (3.2-5.2); BILIRUBIN,TOTAL 0.7 MG/DL (0.2-1.0); CALCIUM LEVEL 7.7 MG/DL (8.8-10.2); MAGNESIUM LEVEL 2.3 MG/DL (1.8-2.4); TOTAL PROTEIN 6.6 GM/DL (6.4-8.2)
[2020-11-30] MEDS: ASPIRIN 81MG ENTERIC TABLET PO SCH (08:23)
[2020-11-30] MEDS: METOPROLOL TART 50 MG TAB PO SCH ×2 (08:23→20:10)
[2020-11-30] MEDS: HumaLOG INSULIN (NovoLOG) PER UNIT SC SCH ×4 (08:24→21:00)
[2020-11-30] MEDS: PREGABALIN 25 MG CAP (LYRICA) PO SCH ×2 (08:26→20:06)
[2020-11-30] MEDS ORDERED: LEVEMIR (INSULIN DETEMIR) 1 UNITS/0.01ML SC SCH (09:00)
--- NOTE | 2020-11-30 11:20 | IPN ---
PROGRESS NOTE DATE: 11/30/2020 SUBJECTIVE: Mr. Pabon is seen this morning on his bedside during hemodialysis. He was dialyzed yesterday for the first time and today is his second dialysis treatment. He is feeling better and denies any nausea or vomiting, dyspnea or chest pain. We removed 1.5 liters of fluid yesterday which he tolerated very well. OBJECTIVE: VITAL SIGNS: Temperature is 98.5 degrees Fahrenheit, heart rate is 66 per minute and respiratory rate is 16 per minute. Blood pressure is 127/68 mmHg and oxygen saturation is 92% on room air. HEENT: His head is atraumatic. NECK: Supple. JVD is difficult to be assessed. He has an internal jugular vein catheter on the right side. HEART: His heart sounds are regular. LUNGS: Slightly diminished breath sounds at the bases. ABDOMEN: Soft and nontender. Bowel sounds are normal. EXTREMITIES: Without any cyanosis or clubbing. Ulcers on both legs and feet are covered with dressings. NEUROLOGIC: He is at his baseline mentation without any focal deficit. LABORATORY DATA: Today's labs shows WBC count of 8.3, hemoglobin 7.7 and hematocrit 23.7. Platelets 122,000. Sodium 140, potassium 4.6, BUN 59 and creatinine 2.78. Glucose 197. Calcium 7.7. Albumin is 2.3. PROBLEMS: 1. Endstage renal disease, patient has just started dialysis yesterday. He has a known history of advanced chronic kidney disease at baseline. He is not likely to have an improvement in kidney function and will continue with long-term dialysis. 2. Congestive heart failure, volume status improved significantly. Yesterday, we removed 1.5 liters of fluid and today we are removing another 1.5 liters. He is tolerating it well. His diuretic has been stopped. 3. Anemia. His anemia did not improve, I was anticipating that with fluid removal his anemia would improve. He is going to be transfused 1 unit of packed RBCs today during dialysis. He was given intravenous iron dose over the weekend and he is also going to receive a first dose of Aranesp today. 4. Peripheral vascular disease and lower extremity ulcers. Patient has advanced and chronic peripheral vascular disease with significant issues which are not correctable due to complete occlusion of multiple arteries. He is going to be seen by podiatry for possible debridement of his ulcers. 5. Generalized weakness and deconditioning. Patient is mostly in the bed. He will probably need subacute rehab.
[2020-11-30 11:50] LABS: HEMOGLOBIN A1c 8.9 %
[2020-11-30] MEDS: HYDROMORPHONE HCL 0.5 MG/ 0.5 ML SYRINGE (J1170 PER 1) IV PRN ×2 (14:43→20:10)
[2020-11-30] MEDS: traMADol 50 MG TAB PO PRN (16:49)
[2020-11-30] MEDS: WARFARIN SOD 4MG TAB PO SCH (16:49)
--- NOTE | 2020-11-30 17:19 | CR.PDOC ---
General Date of Consultation: Nov 30, 2020 Referring Provider: SRAVANTHI LORENZANA DO Primary Care Physician: Magdaleno Reno Attending Physician: SRAVANTHI LORENZANA DO Consultation REASON FOR CONSULTATION/CHIEF COMPLAINT: Clarification of goals of care requested by Dr. Lorenzana, hospitalist. HISTORY OF PRESENT ILLNESS: 75 year old male with multiple medical problems including Type 2 DM, Stage 4 CKD, PAD s/p angioplasty LLE, CVA, CHF admitted to [facility]. He came to ED with intractable pain in his legs and had told his he could not live with the pain he was experiencing. He now has a port for dialysis and has started dialysis which has reduced his fluid overload which in turn improved some of the pain in his legs, but he is still having significant constant pain in his legs. He stated "I have a hard decision to make, I either have to lose my legs or my kidneys". He stated he is not happy about being on dialysis but feels he has no choice but to have it. He further stated he has had 2 AR's, and he "" after the second one but was resusciated after multiple shocks. Since that time he has not ever felt as well and has been progressively more fatigued. He has suffered from multiple episodes of pneumonia. ALLERGIES: Please see below. HOME MEDICATIONS: Please see below. PAST MEDICAL HISTORY: 1. End stage renal disease on dialysis 2. CAD s/p CABG 3. severe aortic stenosis s/p aoritc valve replacement 4. SIDNEY 5. Type 2 DM 6. peripheral arterial disease 7. chronic CHF 8. moderate to severe pulmonary hypertension 9. Lewy body dementia 10. Parkinsons disease 11. dysphagia 12. anemia of chronic kidney disease 13. cardiac arrest x V fib and PEA 14. tracheostomy/feeding tube 15 critical illness myopathy 16. afib on coumadin 17. history of CVA 18. multifocal MRSA PN 19. bilateral rib fractures 20. chronic T 12 vertebra lbody compression fracture 21. SCC skin 22. bilateral cataract surgeries 23. 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 aortic valve replacement 2. CABG 3. laminectomy 4. exc. SCC right hand 5. left eye cataract 6. left 5th toe amp 7. right 5th toe amp FAMILY HISTORY: heart disease DM SOCIAL HISTORY: Marital status and/or living arrangements: to Arlene. 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 Tobacco use: no ETOH: no Illicit drug use: no IV drug use: no Other relevant social factors: adult children do not live locally and do not have much contact with patient or his REVIEW OF SYSTEMS: CONSTITUTIONAL: fatigue HEENT: dysphagia, hoarse voice from laryngeal injury CARDIOVASCULAR: denies chest pain, + edema previously; lower extremtiy pain from PAD RESPIRATORY: dyspnea with activity GENITOURINARY: denies dysuria, hematuria MUSCULOSKELETAL: back discomfort GASTROINTESTINAL: appetite fair, denies n/v/c/d SKIN: wounds lower legs NEUROLOGICAL: weakness, difficulty concentrating PSYCHIATRIC: admits to depression over his chronic medical problems ENDOCRINE: type 2 DM PHYSICAL EXAMINATION: VITAL SIGNS: Please see below. GENERAL APPEARANCE: alert, oriented, able to make his needs known. Resting in bed, receiving PRBC transfusion HEENT: EOMI, nonicteric, mucous membranes moist RESPIRATORY: CTA CARDIOVASCULAR: RRR, no edema lower ext ABDOMEN: +BS, nontender EXTREMITIES: wound dressings on bilateral lower ext, no edema or clubbing NEUROLOGICAL: Good motor strength, no tremor or pill rolling noted PSYCHIATRIC: pleasant, cooperative, reasonably good historian LABORATORY DATA: Please see below. ASSESSMENT/PLAN: 1. ESRD 2. CHF 3. PAD I had a 30 minute discussion with Newton about what he would or would not want to have done at this point if his heart was to stop beating. He stated his Xin is HCP and she would make the decision; he would not want CPR if there was "no hope of pulling through" but would want it tried. He also stated unequivocally, he would not want to go on a ventilator for any reason. He has already experienced a feeding tube but was uncertain if he would want to have another one if he could not swallow safely or was unconscious. I explained to him that without documentation about what he would or would not want done, medical staff are compelled to do everything unless directed otherwise by HCP. He stated his knows what he would want. Iasked his permission to give her a call and he indicated that would be fine. I called Xin and we spent 45 minutes talking on the telephone about Newton's current medical condition, the fact he has been admitted 4 times in the past yea r compared to 3 times all of last year and what plan might make the most sense for him at this point. Xin is clearly overwhelmed, angry and frustrated. She does acknowledge his health has failed, and has thought about having him go on hospice but does not want him to stop dialysis. She seems to understand his vascular disease will likely get worse and that eventually he may likely develop gangrene and when that happens "that will be the end". She has a history of caring for a former 's father who of vascular disease. She stated she feels like "everyone fights me about what I need for him" and indicated she has been doing his wound care at home without any assistance from home nursing "becuase there isn't anyone available". She also stated she thinks she probably needs to consult with the local credit director as she feels Newton's "time is probably limited and I know he wants to be cremated." I offered to have Dena Mcneill [facility] call her for psychosocial support but could not get an affirmative answer about wanting this support. I did tell her I would inform her transportation planner about her desire to have Newton come home with some additional nursing support. Xin did state she does not want him to in the hospital, rather at home. Both Newton and Xin appear to understand his medical condition is tenuous at best but neither seem able to place limitations on his care. Both stated that among all the medical providers Newton has seen, no one has told him what his life expectancy might be. Xin feels Dr. Reno did a fantastic job of "keeping him on an even keel" for a few months before this latest decline, but at this point he seems to be much closer to the end of his life. I will send her information about my clinic but frankly I think travel to my clinic would be burden for them. He appears to be hospice appropriate should he decide to stop dialysis and commit to limitations on his medical care. Time in 1600 TIme out 1720 Vital Signs/I&O Vital Signs Date Time Temp Pulse Resp B/P (MAP) Pulse Ox O2 Delivery O2 Flow Rate FiO2 11/30/20 15:10 98.2 68 18 134/68 93 Room Air 11/29/20 14:00 2.0 I&O- Last 24 Hours up to 6 AM 11/30/20 06:00 Intake Total 1880 ml Output Total 2100 ml Balance -220 ml Laboratory Data Labs 24H Laboratory Tests 2 11/29/20 16:37: Bedside Glucose (Misc Panel) 191H 11/29/20 20:03: Bedside Glucose (Misc Panel) 248H 11/30/20 05:49: Immature Granulocyte % (Auto) 0.7, Neutrophils (%) (Auto) 73.0H, Lymphocytes (%) (Auto) 11.7L, Monocytes (%) (Auto) 9.2H, Eosinophils (%) (Auto) 4.7H, Basophils (%) (Auto) 0.7, Neutrophils # (Auto) 6.0, Lymphocytes # (Auto) 1.0L, Monocytes # (Auto) 0.8, Eosinophils # (Auto) 0.4, Basophils # (Auto) 0.1, Nucleated Red Blood Cells % (auto) 0.0, Anion Gap 6L, Glomerular Filtration Rate 23.8L, Estimated Mean Plasma Glucose 209H, Hemoglobin A1c 8.9, Calcium Level 7.7L, Magnesium Level 2.3, Total Bilirubin 0.7, Aspartate Amino Transf (AST/SGOT) 13, Alanine Aminotransferase (ALT/SGPT) 22, Alkaline Phosphatase 78, Total Protein 6.6, Albumin 2.3L, Albumin/Globulin Ratio 0.5 11/30/20 12:20: Bedside Glucose (Misc Panel) 156H CBC/BMP Laboratory Tests 11/30/20 05:49 Microbiology Microbiology 11/26/20 Urine Culture - Final, Complete 11/24/20 Blood Culture - Final, Complete NO GROWTH AFTER 5 DAYS 11/24/20 Blood Culture - Final, Complete NO GROWTH AFTER 5 DAYS Allergies Coded Allergies: Lucas (Verified Allergy, Severe, ANAPHYLAXIS, 11/09/14) Penicillins (Verified Allergy, Severe, Anaphylaxis, 02/17/20) HAS RECEIVED 2nd & 3RD GEN CEPHALOSPORINS w/o PROBLEM metformin (Verified Allergy, Severe, Tongue swelling, 07/02/18) Teewgnd-Cjx-Jio Reductase Inhibitor (Verified Adverse Reaction, Intermediate, Altered Mental Status, 07/02/18) codeine (Verified Adverse Reaction, Mild, "out of it". , 02/17/20) mixed with guifenasin duloxetine (Unverified Adverse Reaction, Mild, Nausea and vomiting, 07/02/18) clindamycin (Verified Adverse Reaction, Unknown, DIARRHEA, 02/29/20) Home Medications Scheduled Cholecalciferol (Vitamin D3) (Vitamin D3) 50 Mcg Capsule, 2,000 UNITS PO DAILY, (Reported) TAKES AT NOON Citalopram Hydrobromide (Citalopram HBr) 20 Mg Tab, 10 MG PO QHS, (Reported) Collagenase Clostridium Hist. (Santyl) 30 Gm Oint...g., 1 APLCT TOP Q2D, (Reported) APPLY TO SHINS AND OPEN WOUNDS Echinacea (Echinacea) 380 Mg Cap, 380 MG PO DAILY, (Reported) Glipizide (Glipizide) 10 Mg Tab, 1.5 TABS PO BID, (Reported) Metoprolol Tartrate (Metoprolol Tartrate) 50 Mg Tab, 50 MG PO BID, (Reported) Polyethylene Glycol 3350 (Miralax) 119 Gm Powder, 17 GM PO QHS, (Reported) HOLD FOR DIARRHEA Potassium Gluconate (Potassium) 99 Mg Tablet, 595 MG PO DAILY, (Reported) TAKES AT 1200 Pregabalin (Pregabalin) 25 Mg Capsule, 25 MG PO BID, (Reported) Torsemide (Torsemide) 20 Mg Tablet, 20 MG PO BID, (Reported) TAKES WITH BREAKFAST AND DINNER Warfarin Sodium (Warfarin Sodium) 4 Mg Tablet, 4 MG PO 6XWK, (Reported) SUN/MON//SAT/SAT/SAT EVENINGS Warfarin Sodium (Warfarin Sodium) 4 Mg Tablet, 2 MG PO QWEEK, (Reported) SATURDAY EVENINGS Scheduled PRN Acetaminophen (Tylenol Extra Strength) 500 Mg Tablet, 1,000 MG PO Q6H PRN for PAIN, (Reported) Ammonium Lactate (Ammonium Lactate) 12% Cream..g., 1 DOSE TOP DAILY PRN for DRY SKIN, (Reported) APPLY TO FEET Pantoprazole Sodium (Pantoprazole Sodium) 40 Mg Tablet., 40 MG PO DAILY PRN for HEARTBURN, (Reported) Pamela BAILEY AUDIT DIRECTOR Nov 30, 2020 17:19
[2020-11-30] MEDS: ceFAZolin SOD 1 GM in D5W MINI-BAG PLUS 50 ML IV SCH (18:15)
--- NOTE | 2020-11-30 19:42 | IPNPDOC ---
Text Note Date of Service The patient was seen on 11/30/20. NOTE Subjective: No any acute events overnight. Patient awake and alert in the mo rning. He denies any pain. No fever or chills Objective: GENERAL APPEARANCE: NAD HEENT: no scleral icterus, plus JVD, EOMI CARDIOVASCULAR: Irregularly irregular LUNGS: Diminished lung sounds bilaterally ABDOMEN: soft & not tender w palpation MUSCULOSKELETAL: no cyanosis, no swelling INTEGUMENT: no generalized pallor NEUROLOGICAL: cranial nerve function from 2-12 intact, follows commands, speech not dysarthric Assessment and plan Patient 75 years old male with past medical history of coronary artery disease status post CABG, severe aortic stenosis status post AVR with bioprosthetic valve on Coumadin, atrial fibrillation, biventricular heart failure CKD stage IV, diabetes type 2, peripheral arterial disease status post angioplasty of the left lower extremity by Dr. Tafoya presented to hospital with intractable pain of both legs. During the hospital stay patient developed CVA on 11/25/2020. MRI did show a punctate R parietal acute CVA, as well severe stenosis involving the proximal aspect of the posterior cerebral artery. R parietal acute CVA Diet was modified Continue warfarin and aspirin Continue to monitor INR Continue PT/OT Hypoxia Most likely secondary to fluid overload. Resolved Posterior headache Resolved Intractable pain of the lower extremities/multiple superficial wounds/peripheral artery diseases Pain management Follow lubricating specialist recommendation Appreciate/agree with partner integration planner consult for possible debridement of the right leg Vascular surgeon recommended Dr Arellano consult who is now on vacation till next week Procalcitonin elevated to 1.8, continue cefazolin IV Acute on chronic kidney disease Dialysis was done today. 1.5 L was removed today Acute diastolic CHF Echo showed Normal LV size with mild LVH and preserved LV systolic function, estimated LVEF of 65% to 70%. Grade 2 diastolic dysfunction Patient overloaded, volume regulated by dialysis Anemia of chronic diseases Superimposed with iron deficiency anemia start Aranesp tomorrow as per nephro team Patient received 1 unit of blood today Atrial fibrillation/coronary artery disease Continue Coumadin, monitor INR Continue statin, metoprolol Type 2 diabetes Insulin sliding scale Diabetes diet Deconditioning PT/OT Palliative care encounter VS,Fishbone, I+O VS, Fishbone, I+O Laboratory Tests 11/30/20 05:49 Vital Signs Date Time Temp Pulse Resp B/P (MAP) Pulse Ox O2 Delivery O2 Flow Rate FiO2 11/30/20 18:11 98.4 71 18 132/65 91 11/30/20 17:16 Room Air 11/29/20 14:00 2.0 I&O- Last 24 Hours up to 6 AM 11/30/20 06:00 Intake Total 1880 ml Output Total 2100 ml Balance -220 ml SRAVANTHI LORENZANA DO Nov 30, 2020 19:42
[2020-11-30] MEDS: CitaloPRAM (CeleXA) 10 MG TABLET PO SCH (20:06)
[2020-11-30] MEDS: MIRALAX *UNIT DOSE* 17GM PACKET PO SCH (20:06)
[2020-11-30] MEDS: LEVEMIR (INSULIN DETEMIR) 1 UNITS/0.01ML SC SCH (22:01)
[2020-12-01 06:00] VITALS: BP 104/60
--- NOTE | 2020-12-01 06:26 | CR ---
CONSULTATION DATE: 11/30/2020 REASON FOR CONSULTATION: Leg ulcerations. HISTORY OF PRESENT ILLNESS: Newton Pabon is a patient with longstanding ulcerations to both legs with significant pain. He has been a patient of Dr. Mcclure. He has had recent intervention by Dr. Tafoya for his peripheral vascular disease. I was asked to see him in consultation for debridement of leg ulcerations. PAST MEDICAL HISTORY: Significant for severe aortic stenosis status post aortic valve replacement with bioprosthetic, coronary artery disease status post CABG, obstructive sleep apnea, kidney disease Stage IV on hemodialysis, non-insulin dependent diabetes, peripheral arterial disease, chronic systolic congestive heart failure and diastolic congestive heart failure, mild moderate severe pulmonary hypertension, Lewy-Body dementia, Parkinson's, dysphagia, anemia, history of cardiac arrest, tracheostomy, history of atrial fibrillation, history of strokes, history of squamous cell carcinoma, cataracts, melanoma. PAST SURGICAL HISTORY: Aortic valve replacement, CABG, back surgery, squamous cell excision, cataract, left fifth and then right fifth amputations, angioplasties and stents. SOCIAL HISTORY: Denies smoking or alcohol use. FAMILY HISTORY: Noncontributory. ALLERGIES: [place], penicillin, statins, Clindamycin, codeine, Duloxetine, Metformin. REVIEW OF SYSTEMS: He denies nausea or vomiting. Notes significant pain in both legs. OBJECTIVE: Vitals are examined. He has been afebrile. Labs are reviewed. White blood cell count is 8.3. Hemoglobin A1c is 8.9. Lower extremity examination: Pedal pulses are nonpalpable. There is ulcerations to bilateral lower extremities with a fibrous ulcer to the right leg. ASSESSMENT: Patient with significant peripheral vascular disease with lower leg arterial ulcerations. PLAN: A bedside wound debridement was performed using a dermal curette including subcutaneous tissue. Wound care orders per Dr. Mcclure. Overall, the prognosis for these legs is poor given his multiple comorbidities and peripheral vascular disease that have not been amenable to intervention. May ultimately end up with leg amputation, however I do not feel he would do well with this either given his other health conditions. For now, will continue conservative management.
[2020-12-01 07:24] LABS: BASO # 0.1 10^3/uL (0.0-0.2); BASO % 0.7 % (0.0-1.0); EOS # 0.5 10^3/uL (0.0-0.5); EOS % 5.3 % (0.0-3.0); HEMATOCRIT 27.9 % (42.0-52.0); HEMOGLOBIN 9.1 g/dl (13.5-17.5); LYMPH # 1.1 10^3/uL (1.5-5.0); MEAN CORPUSCULAR HEMOGLOBIN 33.6 pg (27.0-33.0); MEAN CORPUSCULAR HGB CONC 32.6 g/dl (32.0-36.5); MONO # 0.8 10^3/uL (0.0-0.8); MONO % 8.9 % (2.0-8.0); NEUTROPHILS # 6.1 10^3/uL (1.5-8.5); NEUTROPHILS % 71.3 % (36.0-66.0); PLATELET COUNT, AUTOMATED 136 10^3/uL (150-450); RED BLOOD COUNT 2.71 10^6/uL (4.30-6.10); WHITE BLOOD COUNT 8.5 10^3/uL (4.0-10.0)
[2020-12-01 07:55] LABS: ALBUMIN 2.3 GM/DL (3.2-5.2); BILIRUBIN,TOTAL 0.7 MG/DL (0.2-1.0); CALCIUM LEVEL 8.3 MG/DL (8.8-10.2); CREATININE FOR GFR 2.39 MG/DL (0.70-1.30); GLOMERULAR FILTRATION RATE 28.4 (>42); MAGNESIUM LEVEL 2.1 MG/DL (1.8-2.4); POTASSIUM SERUM 4.3 MEQ/L (3.5-5.1); TOTAL PROTEIN 7.4 GM/DL (6.4-8.2)
[2020-12-01] MEDS: HumaLOG INSULIN (NovoLOG) PER UNIT SC SCH ×4 (08:52→19:56)
[2020-12-01] MEDS: LEVEMIR (INSULIN DETEMIR) 1 UNITS/0.01ML SC SCH ×2 (08:52→20:35)
[2020-12-01] MEDS: PREGABALIN 25 MG CAP (LYRICA) PO SCH ×2 (08:52→20:35)
[2020-12-01] MEDS: ASPIRIN 81MG ENTERIC TABLET PO SCH (08:52)
[2020-12-01] MEDS: METOPROLOL TART 50 MG TAB PO SCH ×2 (08:54→20:34)
[2020-12-01] MEDS: SANTYL OINT 30GM TOP SCH (08:54)
[2020-12-01 10:21] VITALS: O2SAT 93
--- NOTE | 2020-12-01 13:27 | IPNPDOC ---
Text Note Date of Service The patient was seen on 12/01/20. Newton reported he is feeling "100% better today." He thinks the dialysis helped as well as getting blood transfusion. He reported he had a lot of pain when he had wound careearlier today, however, was given some IV hydromorphone that "really helped a lot." I told him I spoke with Xin yesterday and we had discussed hydromorphone po as a possible option for pain management when he is discharged. Newton appeared to be in much better spirits today. He is uncertain of his discharge date at this time. Prior to discharge he could be converted from IV to po hydromorphone 2 to 4 mg po qid prn pain and also a dose given 30-45 minutes prior to aggressive wound care. I will contact Xin and let her know about his condtiion/appearance today. VS,Taje, I+O VS, Jose Manuelbone, I+O Laboratory Tests 12/01/20 06:57 Vital Signs Date Time Temp Pulse Resp B/P (MAP) Pulse Ox O2 Delivery O2 Flow Rate FiO2 12/01/20 10:21 93 Room Air 12/01/20 08:54 70 125/59 12/01/20 06:00 97.6 18 11/29/20 14:00 2.0 I&O- Last 24 Hours up to 6 AM 12/01/20 06:00 Intake Total 1300 ml Output Total 1800 ml Balance -500 ml Pamela BAILEY TABLE KEEPER Dec 01, 2020 13:27
--- NOTE | 2020-12-01 13:30 | IPN ---
NEPHRLOGY PROGRESS NOTE DATE: 12/01/2020 SUBJECTIVE: Mr. Bernard is seen this morning on his bedside. He reports feeling much better and denies any dyspnea, chest pain, nausea or vomiting. Patient reports that he slept all night and this is the first time he slept through the night. He was dialyzed yesterday again which he tolerated very well. Patient had debridement of his lower extremity wounds by passport support manager yesterday. PHYSICAL EXAMINATION: Temperature 97.6 degrees Fahrenheit, heart rate 70 per minute and respiratory rate 18 per minute. Blood pressure 125/60 mmHg and oxygen saturation between 93 and 97% on room air. Head: Atraumatic. Neck: Supple and without JVD or thyroid enlargement. Hemodialysis catheter is present in the right internal jugular vein. Heart: Sounds are regular. Lungs: Clear to auscultation. Abdomen: Soft and nontender and bowel sounds are normal. Extremities: Without any cyanosis or clubbing. Lower extremity ulcers are covered with dressing. Neurologically: He is at his baseline mentation without any focal deficit. LABORATORY DATA: Today's labs show: WBC count 8.5, hemoglobin 9.1, hematocrit 27.9. Sodium 139, potassium 4.3, CO2 24, BUN 38, creatinine 2.39, glucose 123 and calcium 8.3. PROBLEMS/PLAN: 1. End-stage renal disease: Patient was dialyzed yesterday and he tolerated his second dialysis well. Next dialysis will be scheduled for tomorrow. There is no emergent indication for dialysis today. 2. Congestive heart failure: Volume status seems well compensated and he is oxygenating well on room air. Patient is currently off diuretics and we will continue to manage his volume with hemodialysis. Patient will be dialyzed tomorrow. I will try to remove about 1.5 liters of fluid. 3. Anemia: His anemia improved following transfusion of 1 unit of packed RBCs yesterday. He will continue with a weekly dose of Aranesp with dialysis. 4. Peripheral vascular disease and lower extremity ulcers: Patient had wound debridement done by a passport support manager yesterday and he continues with local wound care. He is currently not on any antibiotics. 5. Generalized weakness and deconditioning: Patient is likely to require some rehab as he has been in the bed for several days. He does get out of bed in the chair.
[2020-12-01 14:00] VITALS: BP 149/74
--- NOTE | 2020-12-01 16:18 | IPNPDOC ---
Text Note Date of Service The patient was seen on 12/01/20. NOTE Subjective: No any acute events overnight. Right foot debridement was done y esterday. Objective: GENERAL APPEARANCE: NAD HEENT: no scleral icterus, plus JVD, EOMI CARDIOVASCULAR: Irregularly irregular LUNGS: Diminished lung sounds bilaterally ABDOMEN: soft & not tender w palpation MUSCULOSKELETAL: no cyanosis, no swelling, multiple superficial wounds of both legs INTEGUMENT: no generalized pallor NEUROLOGICAL: cranial nerve function from 2-12 intact, follows commands, speech not dysarthric Assessment and plan Patient 75 years old male with past medical history of coronary artery disease status post CABG, severe aortic stenosis status post AVR with bioprosthetic valve on Coumadin, atrial fibrillation, biventricular heart failure CKD stage IV, diabetes type 2, peripheral arterial disease status post angioplasty of the left lower extremity by Dr. Tafoya presented to hospital with intractable pain of both legs. During the hospital stay patient developed CVA on 11/25/2020. MRI did show a punctate R parietal acute CVA, as well severe stenosis involving the proximal aspect of the posterior cerebral artery. R parietal acute CVA Diet was modified Continue warfarin and aspirin Continue to monitor INR Continue PT/OT Hypoxia Most likely secondary to fluid overload. Resolved Posterior headache Resolved Intractable pain of the lower extremities/multiple superficial wounds/peripheral artery diseases Pain management Follow on site services specialist recommendation [employer] Basis Trader team did debridement yesterday Vascular surgeon recommended Dr Arellano consult who is now on vacation till next week Procalcitonin elevated to 1.8, continue cefazolin IV Acute on chronic kidney disease Dialysis was done today. 1.5 L was removed today Acute diastolic CHF Echo showed Normal LV size with mild LVH and preserved LV systolic function, estimated LVEF of 65% to 70%. Grade 2 diastolic dysfunction Patient overloaded, volume regulated by dialysis Anemia of chronic diseases Superimposed with iron deficiency anemia Aranesp as per nephro team Patient received 1 unit of blood yesterday. Hemoglobin stable Atrial fibrillation/coronary artery disease Continue Coumadin, monitor INR Continue statin, metoprolol Type 2 diabetes Insulin sliding scale Diabetes diet Deconditioning/generalized weakness PT/OT Palliative care encounter VS,Fishbone, I+O VS, Fishbone, I+O Laboratory Tests 12/01/20 06:57 Vital Signs Date Time Temp Pulse Resp B/P (MAP) Pulse Ox O2 Delivery O2 Flow Rate FiO2 12/01/20 14:00 98.0 80 19 149/74 (99) 95 Room Air 11/29/20 14:00 2.0 I&O- Last 24 Hours up to 6 AM 12/01/20 06:00 Intake Total 1300 ml Output Total 1800 ml Balance -500 ml SRAVANTHI LORENZANA DO Dec 01, 2020 16:18
[2020-12-01] MEDS: WARFARIN SOD 2MG TAB PO SCH (17:25)
[2020-12-01] MEDS: ceFAZolin SOD 1 GM in D5W MINI-BAG PLUS 50 ML IV SCH (17:25)
[2020-12-01 20:00] VITALS: BP 147/74
[2020-12-01] MEDS: CitaloPRAM (CeleXA) 10 MG TABLET PO SCH (20:35)
[2020-12-01] MEDS: MIRALAX *UNIT DOSE* 17GM PACKET PO SCH (20:35)
[2020-12-02] MEDS: traMADol 50 MG TAB PO PRN ×2 (01:16→01:21)
[2020-12-02] MEDS: HYDROMORPHONE HCL 0.5 MG/ 0.5 ML SYRINGE (J1170 PER 1) IV PRN (02:28)
[2020-12-02 05:52] VITALS: BP 120/61
[2020-12-02 06:42] LABS: BASO # 0.1 10^3/uL (0.0-0.2); BASO % 0.6 % (0.0-1.0); EOS # 0.5 10^3/uL (0.0-0.5); EOS % 5.6 % (0.0-3.0); HEMATOCRIT 27.3 % (42.0-52.0); HEMOGLOBIN 8.8 g/dl (13.5-17.5); LYMPH # 1.2 10^3/uL (1.5-5.0); LYMPH % 13.9 % (24.0-44.0); MEAN CORPUSCULAR HEMOGLOBIN 33.6 pg (27.0-33.0); MEAN CORPUSCULAR HGB CONC 32.2 g/dl (32.0-36.5); MEAN CORPUSCULAR VOLUME 104.2 fl (80.0-96.0); MONO # 0.8 10^3/uL (0.0-0.8); MONO % 8.9 % (2.0-8.0); NEUTROPHILS # 6.2 10^3/uL (1.5-8.5); NEUTROPHILS % 69.8 % (36.0-66.0); PLATELET COUNT, AUTOMATED 128 10^3/uL (150-450); RED BLOOD COUNT 2.62 10^6/uL (4.30-6.10); WHITE BLOOD COUNT 8.9 10^3/uL (4.0-10.0)
[2020-12-02 07:05] LABS: ALBUMIN 2.2 GM/DL (3.2-5.2); BILIRUBIN,TOTAL 0.6 MG/DL (0.2-1.0); CALCIUM LEVEL 7.4 MG/DL (8.8-10.2); CREATININE FOR GFR 2.86 MG/DL (0.70-1.30); GLOMERULAR FILTRATION RATE 23.1 (>42); MAGNESIUM LEVEL 2.2 MG/DL (1.8-2.4); POTASSIUM SERUM 4.2 MEQ/L (3.5-5.1); TOTAL PROTEIN 6.4 GM/DL (6.4-8.2)
[2020-12-02] MEDS: PREGABALIN 25 MG CAP (LYRICA) PO SCH (08:48)
[2020-12-02] MEDS: ASPIRIN 81MG ENTERIC TABLET PO SCH (08:48)
[2020-12-02] MEDS: HumaLOG INSULIN (NovoLOG) PER UNIT SC SCH ×3 (08:48→16:44)
[2020-12-02] MEDS: LEVEMIR (INSULIN DETEMIR) 1 UNITS/0.01ML SC SCH (08:48)
[2020-12-02 08:51] VITALS: BP 139/69
[2020-12-02] MEDS: METOPROLOL TART 50 MG TAB PO SCH (08:51)
[2020-12-02] MEDS ORDERED: ASPI-551 PO (10:54)
[2020-12-02] MEDS ORDERED: IRON SUCROSE 100MG 5ML VIAL (J1756 PER 1MG) IV SCH (11:45)
[2020-12-02] MEDS ORDERED: TRAM50TA2 PO (14:17)
--- NOTE | 2020-12-02 15:50 | DS.PDOC ---
Discharge Summary General Date of Admission Nov 24, 2020 at 13:21 Date of Discharge 12/02/20 Discharge Summary PROCEDURES PERFORMED DURING STAY: [None]. ADMITTING DIAGNOSES: 1. . DISCHARGE DIAGNOSES: 1. . COMPLICATIONS/CHIEF COMPLAINT: Afib,Chronic Wound Extremity,Diabetes,Intractable. HISTORY OF PRESENT ILLNESS:75-year-old male with a history of coronary artery disease status post CABG, severe aortic stenosis status post AVR with bioprosthetic valve on Coumadin, atrial fibrillation, biventricular heart failure CKD stage IV, diabetes type 2, peripheral arterial disease status post angioplasty of the left lower extremity by Dr. Tafoya, CVA and numerous other conditions as shown below. Patient presents to the ER with intractable pain of the bilateral lower extremities overlying numerous arterial ulcers. Patient is followed by Dr. Hinson in the clinic and is seen once every 2 weeks. Patient underwent left leg angiogram in June [address] Tafoya which showed popliteal tibioperoneal and peroneal stenosis with single-vessel outflow of the left foot. He underwent popliteal TP trunk and peroneal artery angioplasty which improved flow to the left foot. AT and PT could not be recanalized. Patient received 8 mg of IV morphine in the ER with no improvement in his pain. At this time he does not report any chest pain shortness of breath palpitations nausea vomiting diarrhea subjective fevers or chills. Patient will be admitted to hospitalist service for management of intractable pain secondary to numerous arterial ulcers on bilateral lower extremities. Patient developed dizziness and posterior headache on the morning of 11/25/2020. While CT head was unrevealing MRI did show a punctate R parital acute CVA, as well severe stenosis involving the proximal aspect of the posterior HOSPITAL COURSE: During the hospital stay the following issue addressed R parietal acute CVA Diet was modified We continued warfarin and started aspirin Hypoxia Most likely secondary to fluid overload. Resolved after dialysis Posterior headache Resolved Intractable pain of the lower extremities/multiple superficial wounds/peripheral artery diseases Patient received pain management regulatory submissions specialist consulted patient and gave recommendation [facility] Handler team did debridement of right ankle Vascular surgeon recommended Dr Arellano consult who is now on vacation till nex t week Procalcitonin elevated to 1.8, patient received cefazolin IV. Patient afebrile, normotensive Acute on chronic kidney disease Patient developed end-stage renal disease. And nephrology team recommended treatment with dialysis. Continue dialysis. Follow-up with nephrology team Acute diastolic CHF Echo showed Normal LV size with mild LVH and preserved LV systolic function, estimated LVEF of 65% to 70%. Grade 2 diastolic dysfunction Patient was overloaded, volume regulated by dialysis. Patient currently euvolemic Anemia of chronic diseases Superimposed with iron deficiency anemia Aranesp as per nephro team Hemoglobin stable Atrial fibrillation/coronary artery disease Coumadin, monitor INR Continue statin, metoprolol Type 2 diabetes Insulin sliding scale Diabetes diet DISCHARGE MEDICATIONS: Please see below. ALLERGIES: Please see below. PHYSICAL EXAMINATION ON DISCHARGE: VITAL SIGNS: Please see below. GENERAL APPEARANCE: NAD HEENT: no scleral icterus, plus JVD, EOMI CARDIOVASCULAR: Irregularly irregular LUNGS: Diminished lung sounds bilaterally ABDOMEN: soft & not tender w palpation MUSCULOSKELETAL: no cyanosis, no swelling, multiple superficial wounds of both legs INTEGUMENT: no generalized pallor NEUROLOGICAL: cranial nerve function from 2-12 intact, follows commands, speech not dysarthric LABORATORY DATA: Please see below. IMAGING: See above PROGNOSIS: Guarded ACTIVITY: [As tolerated]. DIET: Cardiac/renal DISPOSITION: ARU ITEMS TO FOLLOWUP ON ON OUTPATIENT: Follow-up with newspaper editor, PCP, vascular surgeon and neurologist DISCHARGE CONDITION: [Stable]. TIME SPENT ON DISCHARGE: 40minutes. Vital Signs/I&Os Vital Signs Date Time Temp Pulse Resp B/P (MAP) Pulse Ox O2 Delivery O2 Flow Rate FiO2 12/02/20 08:51 74 139/69 12/02/20 05:52 97.9 17 94 Room Air 11/29/20 14:00 2.0 I&O- Last 24 Hours up to 6 AM 12/02/20 06:00 Intake Total 1240 ml Output Total 500 ml Balance 740 ml Laboratory Data Labs 24H Laboratory Tests 2 12/01/20 16:29: Bedside Glucose (Misc Panel) 170H 12/01/20 19:55: Bedside Glucose (Misc Panel) 156H 12/02/20 06:26: Immature Granulocyte % (Auto) 1.2, Neutrophils (%) (Auto) 69.8H, Lymphocytes (%) (Auto) 13.9L, Monocytes (%) (Auto) 8.9H, Eosinophils (%) (Auto) 5.6H, Basophils (%) (Auto) 0.6, Neutrophils # (Auto) 6.2, Lymphocytes # (Auto) 1.2L, Monocytes # (Auto) 0.8, Eosinophils # (Auto) 0.5, Basophils # (Auto) 0.1, Nucleated Red Blood Cells % (auto) 0.3H, Anion Gap 10, Glomerular Filtration Rate 23.1L, Calcium Level 7.4L, Magnesium Level 2.2, Total Bilirubin 0.6, Aspartate Amino Transf (AST/SGOT) 16, Alanine Aminotransferase (ALT/SGPT) 18, Alkaline Phosphatase 91, Total Protein 6.4, Albumin 2.2L, Albumin/Globulin Ratio 0.5 12/02/20 13:55: Bedside Glucose (Misc Panel) 123H CBC/BMP Laboratory Tests 12/02/20 06:26 FSBS Laboratory Tests Test 12/01/20 16:29 12/01/20 19:55 12/02/20 13:55 Range/Units Bedside Glucose (Misc Panel) 170 156 123 83-110 MG/DL Microbiology Microbiology 11/26/20 Urine Culture - Final, Complete 11/24/20 Blood Culture - Final, Complete NO GROWTH AFTER 5 DAYS 11/24/20 Blood Culture - Final, Complete NO GROWTH AFTER 5 DAYS Discharge Medications Scheduled Aspirin (Aspirin EC) 81 Mg Tablet.dr, 81 MG PO DAILY Cholecalciferol (Vitamin D3) (Vitamin D3) 50 Mcg Capsule, 2,000 UNITS PO DAILY, (Reported) TAKES AT NOON Citalopram Hydrobromide (Citalopram HBr) 20 Mg Tab, 10 MG PO QHS, (Reported) Collagenase Clostridium Hist. (Santyl) 30 Gm Oint...g., 1 APLCT TOP Q2D, (Reported) APPLY TO SHINS AND OPEN WOUNDS Echinacea (Echinacea) 380 Mg Cap, 380 MG PO DAILY, (Reported) Glipizide (Glipizide) 10 Mg Tab, 1.5 TABS PO BID, (Reported) Metoprolol Tartrate (Metoprolol Tartrate) 50 Mg Tab, 50 MG PO BID, (Reported) Polyethylene Glycol 3350 (Miralax) 119 Gm Powder, 17 GM PO QHS, (Reported) HOLD FOR DIARRHEA Potassium Gluconate (Potassium) 99 Mg Tablet, 595 MG PO DAILY, (Reported) TAKES AT 1200 Pregabalin (Pregabalin) 25 Mg Capsule, 25 MG PO BID, (Reported) Warfarin Sodium (Warfarin Sodium) 4 Mg Tablet, 4 MG PO 6XWK, (Reported) SUN/MON//SAT/SAT/SAT EVENINGS Warfarin Sodium (Warfarin Sodium) 4 Mg Tablet, 2 MG PO QWEEK, (Reported) SATURDAY EVENINGS Scheduled PRN Acetaminophen (Tylenol Extra Strength) 500 Mg Tablet, 1,000 MG PO Q6H PRN for PAIN, (Reported) Ammonium Lactate (Ammonium Lactate) 12% Cream..g., 1 DOSE TOP DAILY PRN for DRY SKIN, (Reported) APPLY TO FEET Pantoprazole Sodium (Pantoprazole Sodium) 40 Mg Tablet.dr, 40 MG PO DAILY PRN for HEARTBURN, (Reported) Tramadol HCl (Tramadol HCl) 50 Mg Tablet, 100 MG PO Q6HP PRN for SEVERE PAIN (PS 8-10) Allergies Coded Allergies: [place] (Verified Allergy, Severe, ANAPHYLAXIS, 11/09/14) Penicillins (Verified Allergy, Severe, Anaphylaxis, 02/17/20) HAS RECEIVED 2nd & 3RD GEN CEPHALOSPORINS w/o PROBLEM metformin (Verified Allergy, Severe, Tongue swelling, 07/02/18) Utmqcql-Cmu-Dcx Reductase Inhibitor (Verified Adverse Reaction, Intermediate, Altered Mental Status, 07/02/18) codeine (Verified Adverse Reaction, Mild, "out of it". , 02/17/20) mixed with guifenasin duloxetine (Unverified Adverse Reaction, Mild, Nausea and vomiting, 07/02/18) clindamycin (Verified Adverse Reaction, Unknown, DIARRHEA, 02/29/20) SRAVANTHI LORENZANA DO Dec 02, 2020 15:50
[2020-12-02 16:00] VITALS: BP 137/69
[2020-12-02] MEDS: ceFAZolin SOD 1 GM in D5W MINI-BAG PLUS 50 ML IV SCH (16:44)
[2020-12-02] MEDS: WARFARIN SOD 4MG TAB PO SCH (17:23)
--- NOTE | 2020-12-03 16:11 | IPN ---
NEPHROLOGY PROGRESS NOTE DATE: 12/03/2020 SUBJECTIVE: Mr. Pabon is seen this morning at his bedside. He has been transferred to the acute rehab floor since yesterday. He was dialyzed yesterday morning which he tolerated very well. The patient is sitting in the chair today and he reports that he did get up and walk with the help of a walker. He denies any dyspnea, chest pain, nausea or vomiting. Since starting dialysis, his energy level has improved and he is much more alert and active now. OBJECTIVE: PHYSICAL EXAMINATION: VITAL SIGNS: Temperature is 97.0 degrees Fahrenheit, heart rate 60 per minute and respiratory rate 18 per minute, blood pressure 129/67 mm of mercury and oxygen saturation is 95% on room air. HEENT: His head is atraumatic. NECK: Supple and without JVD or thyroid enlargement. Right internal jugular vein dialysis catheter is present. HEART: Irregular in rhythm. LUNGS: Clear to auscultation. ABDOMEN: Soft and nontender and bowel sounds are normal. EXTREMITIES: Without any cyanosis or clubbing. NEUROLOGICAL: He is at his baseline mentation. LABORATORY STUDIES: Today's labs show a WBC count of 10.1, hemoglobin 9.4 and hematocrit 29.5. Sodium 136, potassium 4.4, CO2 25, BUN 30 and creatinine 2.47. Calcium level is 8.4. PROBLEMS: 1. End-stage renal disease - The patient has started maintenance hemodialysis and he was dialyzed yesterday. His next dialysis will be scheduled for Saturday. At present is volume status is well compensated and electrolytes are stable. There is no emergent need for dialysis today. 2. Congestive heart failure volume status is well compensated and his volume is being managed with dialysis. He should continue with fluid restriction of 1,500 mL per day. Currently is not on any diuretics. 3. Anemia his anemia is stable and he is receiving a weekly dose of Aranesp with hemodialysis. I have also ordered Venofer 100 mg with each dialysis for 10 doses. 4. Peripheral vascular disease with lower extremity ulcers - The patient is now on Cephazolin and also getting his wound care. 5. Generalized weakness and deconditioning - The patient has been transferred to the acute rehab floor now.
--- NOTE | 2020-12-15 16:37 | CR ---
NEPHROLOGY CONSULTATION DATE: 11/25/2020 REQUESTING PHYSICIAN: Marvin Mccray MD. CONSULTING PHYSICIAN: Ramesh Mckeon DO. REASONS FOR CONSULTATION: 1. CKD stage 4. 2. Chronic diastolic congestive heart failure. HISTORY OF PRESENT ILLNESS: Mr. Bernard is previously known to me. He is a 75-year-old male with a past medical history of CKD stage 4, chronic diastolic congestive heart failure, coronary artery disease status post CABG, aortic stenosis status post bioprosthetic aortic valve replacement, Lewy Body dementia, anemia of chronic renal failure and multiple other comorbid conditions mentioned below. Patient was admitted to [facility] yesterday because of bilateral leg pain. He has a history of peripheral arterial disease status post multiple angiograms and angioplasties. Patient presented to the ER with complaint of intractable pain of the bilateral lower extremities overlying numerous arterial ulcers. His renal function has been at his chronic baseline and he has been admitted for management of the intractable pain of the numerous arterial ulcers on his bilateral lower extremities. A nephrology evaluation is requested for help in the management of his CKD stage 4, congestive heart failure and possible chance of contrast exposure if any vascular interventions are going to be performed on this admission. PAST MEDICAL HISTORY: 1. CKD stage 4 with history of CRRT in the past. 2. Coronary artery disease status post CABG. 3. Aortic stenosis status post bioprosthetic aortic valve replacement in 2018. 4. Obstructive sleep apnea. 5. Non-insulin dependent diabetes mellitus. 6. Peripheral arterial disease. 7. Diastolic congestive heart failure. 8. Pulmonary hypertension. 9. Lewy Body dementia. 10. Parkinson's disease. 11. Dysphagia. 12. Anemia of chronic kidney disease. 13. History of cardiac arrest in the past. 14. Tracheostomy history. 15. Feeding tube history. 16. Critical illness myopathy. 17. Afib on anticoagulation. 18. History of multiple strokes. 19. History of multifocal MRSA pneumonia in 2019. 20. History of bilateral rib fractures. 21. Squamous cell carcinoma. 22. History of malignant melanoma. 23. Bilateral cataracts. PAST SURGICAL HISTORY: 1. Bilateral cataract surgeries. 2. Aortic valve replacement. 3. CABG. 4. Back surgery. 5. Excision of squamous cells from various areas. 6. Cataract surgery. 7. Left fifth toe amputation. 8. Right fifth toe amputation. ALLERGIES: 1. CUCUMBER. 2. PENICILLIN. 3. STATIN. 4. CLINDAMYCIN. 5. CODEINE. 6. DULOXETINE. 7. METFORMIN. HOME MEDICATIONS: Reviewed and include: 1. Aspirin 81 mg by mouth daily. 2. Vitamin D3 2000 units daily. 3. Citalopram 10 mg by mouth at bedtime. 4. Glipizide 1.5 mg in a day. 5. Metoprolol 50 mg by mouth twice a day. 6. Pregabalin 25 mg by mouth twice daily. 7. Coumadin. 8. Torsemide as directed. SOCIAL HISTORY: He is , lives with his . No smoking, alcohol or drugs. FAMILY HISTORY: Significant for heart disease in both his parents. REVIEW OF SYSTEMS: Constitutional: Denies fever or chills. HEENT: He reports history of cataracts. Denies any acute tearing. Denies epistaxis or tinnitus. Cardiac: History of aortic valve replacement and coronary artery disease status post CABG and is compliant with diuretic. Patient reports history of peripheral arterial disease. Respiratory: History of sleep apnea. Denies any worsening shortness of breath beyond his usual baseline. Gastrointestinal: Denies vomiting or diarrhea. Genitourinary: Denies dysuria or hematuria. Endocrine: Reports diabetes. Hematologic: Reports anemia of chronic kidney disease. Reports chronic anticoagulation. Musculoskeletal: Reports chronic stable edema in the legs. Reports lower back pain. Skin: Reports a history of melanoma and squamous cell carcinoma. Neurologic: Reports ambulatory dysfunction and history of stroke. The remainder of the review of systems is negative or as per HPI. PHYSICAL EXAMINATION: Vital signs: Temperature 97.5, pulse 64, respiratory rate 18, blood pressure 117/63, saturating 97% on room air. General: Patient is seen lying in bed awake, alert, oriented and in no acute distress. HEENT: Extraocular muscles are intact. Tongue is moist. Neck: Supple. Jugular veins are not elevated. Heart sounds: Regular. There is a faint systolic murmur. Legs show dressings and I did not take the dressings down. Lungs: Clear to auscultation, no crackle or rale. Abdomen: Soft and nontender. Neurologic: He is oriented times 3, moves extremities on command. LABORATORY DATA: Sodium 141, potassium 4.8, BUN 88, creatinine 3.3, glucose 209, magnesium 2.6. Hemoglobin 9, platelets 121, white count 8.2. Blood cultures done yesterday November 24 with no growth for 24 hours times 2 sets. RADIOLOGY STUDIES: Chest x-ray done November 24 shows mild interstitial prominence diffusely which is stable. INPATIENT MEDICATIONS: Reviewed. Patient is on: 1. Aspirin 81 mg by mouth daily. 2. Fioricet times 1 dose. 3. Citalopram 10 mg by mouth at bedtime. 4. Insulin. 5. Morphine sulfate. 6. Zofran p.r.n. 7. Lyrica 20 mg by mouth twice a day. 8. Coumadin as directed. PROBLEMS: 1. CKD stage 4: Patient's renal function is stable at his usual baseline. We will watch him closely. He is presently not on any diuretics and volume status is acceptable and electrolytes are within normal limits as well. If there is any need for contrast exposure on this admission we will continue to give supportive care because of risk of dye induced nephropathy. 2. Diastolic congestive heart failure: The patient is usually on torsemide 20 mg by mouth twice a day. Volume status is presently fairly compensated and we will keep an eye on his volume status while he is admitted for pain management. 3. Anemia with iron deficiency: Hemoglobin is low at 9 and iron panel shows deficiency and he will receive iron supplementation while he is here. 4. Peripheral arterial disease with a history of prior angioplasties: He is pending arterial duplex and has chronic bilateral lower extremity ulcers being managed by the primary team. Thank you for involving in the care of Mr. Bernard. I will be happy to follow him along with you.
== END 2020-12-02 17:30 | DRG 264 ==
LOC: M ED 09:45 → M ED INP 13:21 → ENRESERV 13:49 → M MSPAV 15:59
PROVIDERS: ADMIT Family Medicine; ATTEND Internal Medicine
PROC: 02HV33Z Insertion of Infusion Device into Superior Vena Cava, Percutaneous Approach (ICD-10-PCS; 2020-11-28)
PROC: 0JH63XZ Insertion of Tunneled Vascular Access Device into Chest Subcutaneous Tissue and Fascia, Percutaneous Approach (ICD-10-PCS; principal; 2020-11-28 16:30)
PROC: 0JBP0ZZ Excision of Left Lower Leg Subcutaneous Tissue and Fascia, Open Approach (ICD-10-PCS; 2020-11-30)
PROC: 0JBN0ZZ Excision of Right Lower Leg Subcutaneous Tissue and Fascia, Open Approach (ICD-10-PCS; 2020-11-30)
PROC: 5A1D70Z Performance of Urinary Filtration, Intermittent, Less than 6 Hours Per Day (ICD-10-PCS; 2020-12-02)
DX: E11.51 Type 2 diabetes mellitus with diabetic peripheral angiopathy without gangrene (principal); I50.33 Acute on chronic diastolic (congestive) heart failure; I63.532 Cerebral infarction due to unspecified occlusion or stenosis of left posterior cerebral artery; N18.6 End stage renal disease; L97.219 Non-pressure chronic ulcer of right calf with unspecified severity; L97.229 Non-pressure chronic ulcer of left calf with unspecified severity; I35.0 Nonrheumatic aortic (valve) stenosis; Z95.2 Presence of prosthetic heart valve; I25.10 Atherosclerotic heart disease of native coronary artery without angina pectoris; Z95.5 Presence of coronary angioplasty implant and graft; Z79.01 Long term (current) use of 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s; I48.91 Unspecified atrial fibrillation; E11.22 Type 2 diabetes mellitus with diabetic chronic kidney disease; I73.9 Peripheral vascular disease, unspecified; I27.20 Pulmonary hypertension, unspecified; F02.80 Dementia in other diseases classified elsewhere, unspecified severity, without behavioral disturbance, psychotic disturbance, mood disturbance, and anxiety; G20 Parkinson's disease; D63.1 Anemia in chronic kidney disease; Z98.41 Cataract extraction status, right eye; Z98.42 Cataract extraction status, left eye; Z20.822 Contact with and (suspected) exposure to COVID-19; Z79.82 Long term (current) use of aspirin; Z79.84 Long term (current) use of oral hypoglycemic drugs; Z79.899 Other long term (current) drug therapy; Z88.0 Allergy status to penicillin; Z88.5 Allergy status to narcotic agent; Z88.1 Allergy status to other antibiotic agents; Z88.8 Allergy status to other drugs, medicaments and biological substances; Z91.018 Allergy to other foods; E11.622 Type 2 diabetes mellitus with other skin ulcer; R09.02 Hypoxemia

== ENCOUNTER 2020-12-02 11:18 | Inpatient (IN) | payer MEDICARE, MEDICAID ==
[~2020-12-02] VITALS: Ht 177.8 cm; Wt 89.0 kg
[~2020-12-02 11:18] MED LIST changes: +AMMO12CR7 TOP; +ASPI-551 PO; +PREG25CA2 PO
--- NOTE | 2020-12-02 12:34 | IPN ---
PROGRESS NOTE DATE: 12/02/2020 SUBJECTIVE: Mr. Bernard is seen this morning during hemodialysis. He is feeling well and denies any dyspnea, chest pain, nausea, vomiting, fever or chills. He feels that the pain in his legs and feet is better with the pain medication that he received this morning. Today is his third dialysis treatment. PHYSICAL EXAMINATION: VITALS: Temperature 97.9 degrees Fahrenheit, heart rate 74 per minute, respiratory rate 17 per minute, blood pressure 139/69 mmHg and oxygen saturation 94% on room air. HEENT: Head is atraumatic. Neck is supple and JVD difficult to be assessed. He has a Perma-cath in his right internal jugular vein. LUNGS: Sound clear to auscultation. HEART: Sounds are regular. ABDOMEN: Soft and nontender. Bowel sounds are normal. EXTREMITIES: Without any cyanosis or clubbing. Bilateral lower extremity ulcers are covered with dressing. NEUROLOGIC: He is at his baseline mentation without a focal deficit. LABORATORY STUDIES: Today's labs show WBC 8.9, hemoglobin 8.8, hematocrit 27.3, platelets 128,000. Sodium 140, potassium 4.2, CO2 21, BUN 48, creatinine 2.86, glucose 153 and calcium 7.4. PROBLEMS: 1. End-stage renal disease: Patient is being dialyzed again today and he is tolerating his dialysis well. He will continue with outpatient dialysis after discharge. 2. Congestive heart failure: His volume status is now well compensated and we are removing 1.5 liters of fluid today with dialysis. He is tolerating it well so far. He is oxygenating without any need for supplemental oxygen. 3. Anemia: His anemia has improved since he was transfused a couple of days ago. He received Aranesp 100 mcg once a week and has also received one dose of intravenous iron. Now we will give him Venofer 100 mg with each dialysis for 10 doses. 4. Bilateral lower extremity ulcers: Patient continues with wound care, he already had a debridement done on one of his leg wounds, not on any systemic antibiotics. DISPOSITION: Patient is going to be discharged from medical floor and admitted to acute rehab floor.
[2020-12-02] MEDS ORDERED: TRAM50TA2 PO (14:17)
[2020-12-02] MEDS ORDERED: GLUCOSE 4GM CHEW TABLET PO PRN (15:05)
[2020-12-02] MEDS ORDERED: BISACODYL 10 MG SUPP PR PRN (15:05)
[2020-12-02] MEDS ORDERED: DEXTROSE 50% 50 ML SYRINGE IV PRN (15:05)
[2020-12-02] MEDS ORDERED: traMADol 50 MG TAB PO PRN (15:05)
[2020-12-02] MEDS ORDERED: GLUCAGON INJ 1MG VIAL SC PRN (15:05)
--- NOTE | 2020-12-02 15:18 | HPEPDOC ---
Legal Recruiter Note DATE OF ADMISSION: 12-02-20 DATE OF SERVICE: 12-02-20 TIME OF ADMISSION: Please refer to physician's admission order. SOURCE OF ADMISSION INFORMATION: [facility] record and patient CHIEF COMPLAINT: stroke HISTORY OF PRESENT ILLNESS: 75M pmh CAD s/p CABG, severe aortic stenosis s/p AVR on Coumadin, Afib, chronic systolic and diastolic CHF, CKD4, DM2, PAD, pulmonary HTN, lewy body dementia, CVA, dysphagia, bilateral LE arterial ulcers followed by Dr. Mcclure, recent tibial angioplasty performed by Dr. Tafoya 06/2020 presented to [facility] ED on 11-24-20 with worsening lower extremity pain and difficulty walking. He was given IV pain medication and Dr. Mcclure was consulted for wound management. Arterial dopplers of his lower extremities were performed showing occluded distal arteries and vascular surgery recommended addition of ASA. Patient developed headache and dysarthria for which MRI on 11-25-20 showed an acute right parietal lacunar infarct. Neurology was consulted and recommended baby ASA and to continue Coumadin. His diet was downgraded for dysphagia in setting of stroke. His leg wounds were debrided by Dr. Thomas, his pain was also addressed by Pamela Kerr. His kidney function declined and he was transitioned to dialysis which helped with fluid management and renal also managed his anemia. He had ongoing mobility and ADL deficits noted in therapy and deemed medically and functionally appropriate for discharge to ARU on 12-02-20. REVIEW OF SYSTEMS: The following is a completed review of systems and has been reviewed. Review of systems otherwise unremarkable. PAIN: Patient self reports bilat LE pain EYES: No recent vision changes EARS, NOSE, & THROAT: +dysphagia CARDIOVASCULAR: Denies chest pain or palpitations PULMONARY: Denies shortness of breath GASTROINTESTINAL: Denies constipation/diarrhea GENITOURINARY: denies dysuria MUSCULOSKELETAL: generalized weakness NEUROLOGICAL: +recent stroke HEMATOLOGICAL: +anemia SKIN: bilat LE wounds PSYCHIATRIC: Unremarkable All other review of systems found to be negative. PAST MEDICAL HISTORY: as per HPI PAST SURGICAL HISTORY: As per HPI, left eye cataract surgery, right hand squamous removal left 5th toe amputation, right 5th toe amputation, back surgery ALLERGIES: Please see below. MEDICATIONS: Please see below. FAMILY HISTORY: cardiac SOCIAL HISTORY:No etoh/illicit drugs/smoking DIET:level 2 and nectar PHYSICAL EXAMINATION: VITAL SIGNS: Please see below. GENERAL: Pleasant and cooperative. No acute distress. HEENT: PERRL. Extraocular movements intact. Clear conjunctiva CARDIOVASCULAR: Regular rate and rhythm. No murmurs, rubs, or gallops LUNGS: Clear to auscultation bilaterally. No wheezes. No rhonchi ABDOMEN: Soft, nontender, nondistended. Positive bowel sounds. Normal active bowel sounds NEUROLOGICAL: Alert and oriented times three. Cranial nerves II through XII grossly intact. Sensation diminished to light touch in LE stocking pattern EXTREMITIES: 5\\5 strength bilateral upper extremities. bilat hip flexors and knee extension 4/5, ankle DF/PF difficult to assess given swelling and copious wounds SKIN: right chest wall permacath in place left medial calf ulcer, right D1 toe ulcer left calf scattered ulcers, left foot and toe region with macerated tissue, exudative ulcers LABORATORY DATA: Please see below. IMAGING: Imaging documentation personally reviewed by record FUNCTIONAL STATUS: Premorbid: Independent with all activities of daily life as well as mobility On Admission: Contact guard for ambulation, toileting, grooming, dressing GOALS: Mod-I for bed mobility, functional transfers, ambulation community distance, dressing, bathing, toileting ASSESSMENT:75-year-old M with complex PMH who presents status post right parietal infarct and recent transition to ESRD with dialysys PLAN: 1. REhab- PT/OT advance mobility and ADLs, strengthen/stretch/maintain ROM all 4l limbs- post-op shoes to be work with ambulation -ESCALATION ENGINEER for dysphagia in setting of stroke 2. Neuro- s/p right parietal lacunar infarct with weakness and mobility impairments, cont aspirin and coumadin for secondary stroke prevention 3. VAsc- patient with severe LE arterial stenosis with wounds, f/u Dr. Mcclure for wound care, Dr. Burton for possible further angioplasty cont ASA as per vascular surgeon recs 4. CArdiac- hx of chronic CHF with recent ECHO significant for grade 2 diastolic dysfunction- will avoid fluid restriction due to dysphagia diet, fluid management per renal with dialysis -Afib and TAVR on couamdin, metoprolol 5. Resp- monitor fo infection 6. Endo- hx of DM with peripheral vascular complications- cont Levemir and ISS, adjust prn 7. GI ppx- protonix 8. DVT ppx- on coumadin 9. Skin- Bilat LE wounds, wound care instructions in place 10. Psych- depression cont celexa 11. Pain- Lyrica 25mg BID, dilaudid 2mg q4h prn, will trial low dose of pamelor for neuropathic pain and cross taper with celexa if effective 12. Renal- ESRD on HD, renal consulted 13. heme- anemia of chronic disease, renal following 14. Skin- LE wounds, please see dressing change ordered, received Cefazolin on inpatient 11/29-12/02, wounds appear infected and wbc count slightly elevated today, will resume Cefazolin, add bacid, monitor CRP/ESR, and consult Dr. Cevallos Saturday 15. Dispo- TBD - POST ADMISSION PHYSICIAN EVALUATION: Medical and functional status: Description of medical status, medical assessment: As above. Rehabilitation diagnosis and current and prior cold morbid medical conditions as above. Risk of complications and plans to mitigate them as above. Description of functional status current status is as above. Prior status as above. Status compared to preadmission: There are no clinically significant differences between the patient's current status and the information described on the preadmission screening document. Treatment plan anticipated: Treatment plan is as described above. Required disciplines including physical therapy, occupational therapy, others as noted above Intensity of services: 3 hours a day, 6 days a week. Special considerations: There are no specific special or safety considerations that would likely preclude immediate implementation of an intensive rehabilitation program or subsequently influence the plan of care. ATTESTATION: Considering all the information above, it is my best judgment that this patient requires intensive rehabilitation therapy as described above and an inpatient hospital environment due to the complexity of nursing, medical, and rehabilitation needs required by the patient. Furthermore, this patient can reasonably be expected to participate in an benefit from an inpatient rehabilitation stay with an interdisciplinary team approach to the delivery of rehabilitation care under the direction and supervision of rehabilitation physician. PROGNOSIS: good ESTIMATED LENGTH OF STAY: 10-12 days. PROJECTED DISCHARGE DESTINATION: Home with family support and any durable medical equipment required to increase functional safety and mobility. TIME SPENT COUNSELING AND COORDINATING INITIAL CARE: Greater than 70 minutes. Vital Signs Vital Signs Date Time Temp Pulse Resp B/P (MAP) Pulse Ox O2 Delivery O2 Flow Rate FiO2 12/02/20 17:41 97.5 67 17 144/69 (94) 95 Room Air Home Medications Scheduled Aspirin (Aspirin EC) 81 Mg Tablet., 81 MG PO DAILY Cholecalciferol (Vitamin D3) (Vitamin D3) 50 Mcg Capsule, 2,000 UNITS PO DAILY, (Reported) TAKES AT NOON Citalopram Hydrobromide (Citalopram HBr) 20 Mg Tab, 10 MG PO QHS, (Reported) Collagenase Clostridium Hist. (Santyl) 30 Gm Oint...g., 1 APLCT TOP Q2D, (Reported) APPLY TO SHINS AND OPEN WOUNDS Echinacea (Echinacea) 380 Mg Cap, 380 MG PO DAILY, (Reported) Glipizide (Glipizide) 10 Mg Tab, 1.5 TABS PO BID, (Reported) Metoprolol Tartrate (Metoprolol Tartrate) 50 Mg Tab, 50 MG PO BID, (Reported) Polyethylene Glycol 3350 (Miralax) 119 Gm Powder, 17 GM PO QHS, (Reported) HOLD FOR DIARRHEA Potassium Gluconate (Potassium) 99 Mg Tablet, 595 MG PO DAILY, (Reported) TAKES AT 1200 Pregabalin (Pregabalin) 25 Mg Capsule, 25 MG PO BID, (Reported) Warfarin Sodium (Warfarin Sodium) 4 Mg Tablet, 4 MG PO 6XWK, (Reported) SUN/SAT//SAT/SAT/SAT EVENINGS Warfarin Sodium (Warfarin Sodium) 4 Mg Tablet, 2 MG PO QWEEK, (Reported) SATURDAY EVENINGS Scheduled PRN Acetaminophen (Tylenol Extra Strength) 500 Mg Tablet, 1,000 MG PO Q6H PRN for PAIN, (Reported) Ammonium Lactate (Ammonium Lactate) 12% Cream..g., 1 DOSE TOP DAILY PRN for DRY SKIN, (Reported) APPLY TO FEET Pantoprazole Sodium (Pantoprazole Sodium) 40 Mg Tablet.dr, 40 MG PO DAILY PRN for HEARTBURN, (Reported) Tramadol HCl (Tramadol HCl) 50 Mg Tablet, 100 MG PO Q6HP PRN for SEVERE PAIN (PS 8-10) Allergies Coded Allergies: [place] (Verified Allergy, Severe, ANAPHYLAXIS, 11/09/14) Penicillins (Verified Allergy, Severe, Anaphylaxis, 02/17/20) HAS RECEIVED 2nd & 3RD GEN CEPHALOSPORINS w/o PROBLEM metformin (Verified Allergy, Severe, Tongue swelling, 07/02/18) Jectphb-Gom-Tvf Reductase Inhibitor (Verified Adverse Reaction, Intermediate, Altered Mental Status, 07/02/18) codeine (Verified Adverse Reaction, Mild, "out of it". , 02/17/20) mixed with guifenasin duloxetine (Unverified Adverse Reaction, Mild, Nausea and vomiting, 07/02/18) clindamycin (Verified Adverse Reaction, Unknown, DIARRHEA, 02/29/20) A-FIB/CHADSVASC A-FIB History Current/History of A-Fib/PAF?: Yes Current PO Anticoag Therapy: Yes CACHORRO MEDEL MD Dec 02, 2020 15:18
[2020-12-02] MEDS: MAGIC MOUTHWASH SUSPENSION BTL SSP SCH (17:30)
[2020-12-02] MEDS: HumaLOG INSULIN (NovoLOG) PER UNIT SC SCH ×2 (17:30→21:00)
[2020-12-02 17:41] VITALS: BP 144/69
[2020-12-02] MEDS ORDERED: oxyCODONE 5MG TAB PO PRN (19:20)
[2020-12-02] MEDS ORDERED: VANICREAM MOISTURIZING SKIN CREAM 113GM TUBE TOP SCH (21:00)
[2020-12-02] MEDS: METOPROLOL TART 50 MG TAB PO SCH (21:10)
[2020-12-02] MEDS: PREGABALIN 25 MG CAP (LYRICA) PO SCH (21:10)
[2020-12-02] MEDS: DOCUSATE SODIUM 100MG CAPSULE PO SCH (21:10)
[2020-12-02] MEDS: SENNA 8.6 MG TAB (SENOKOT) PO SCH (21:10)
[2020-12-02] MEDS: ACETAMINOPHEN 500 MG TAB PO SCH (21:11)
[2020-12-02] MEDS: HYDROmorphone 2 MG TAB PO PRN (21:11)
[2020-12-02] MEDS: LEVEMIR (INSULIN DETEMIR) 1 UNITS/0.01ML SC SCH (21:12)
[2020-12-02] MEDS: REMEDY PHYTOPLEX Z-GUARD PASTE 113GM TUBE (FROM STOREROOM PRODUCT) TOP SCH (21:13)
[2020-12-02 22:00] VITALS: BP 132/63
[2020-12-03 05:30] VITALS: BP 129/67
[2020-12-03] MEDS: MAGIC MOUTHWASH SUSPENSION BTL SSP SCH ×3 (07:30→17:30)
[2020-12-03] MEDS: HumaLOG INSULIN (NovoLOG) PER UNIT SC SCH ×4 (07:30→20:29)
[2020-12-03 08:00] LABS: BASO # 0.1 10^3/uL (0.0-0.2); BASO % 0.6 % (0.0-1.0); EOS # 0.6 10^3/uL (0.0-0.5); EOS % 5.8 % (0.0-3.0); HEMATOCRIT 29.5 % (42.0-52.0); HEMOGLOBIN 9.4 g/dl (13.5-17.5); LYMPH # 1.1 10^3/uL (1.5-5.0); LYMPH % 11.1 % (24.0-44.0); MEAN CORPUSCULAR HEMOGLOBIN 33.7 pg (27.0-33.0); MEAN CORPUSCULAR HGB CONC 31.9 g/dl (32.0-36.5); MEAN CORPUSCULAR VOLUME 105.7 fl (80.0-96.0); MONO # 0.8 10^3/uL (0.0-0.8); NEUTROPHILS # 7.3 10^3/uL (1.5-8.5); NEUTROPHILS % 72.6 % (36.0-66.0); PLATELET COUNT, AUTOMATED 126 10^3/uL (150-450); RED BLOOD COUNT 2.79 10^6/uL (4.30-6.10); WHITE BLOOD COUNT 10.1 10^3/uL (4.0-10.0)
[2020-12-03 08:11] LABS: INR 1.8; PROTHROMBIN TIME 21.3 SECONDS (12.7-14.5)
[2020-12-03 08:23] LABS: ALBUMIN 2.4 GM/DL (3.2-5.2); BILIRUBIN,TOTAL 0.9 MG/DL (0.2-1.0); CALCIUM LEVEL 8.4 MG/DL (8.8-10.2); CREATININE FOR GFR 2.47 MG/DL (0.70-1.30); GLOMERULAR FILTRATION RATE 27.3 (>42); POTASSIUM SERUM 4.4 MEQ/L (3.5-5.1); TOTAL PROTEIN 7.1 GM/DL (6.4-8.2)
[2020-12-03] MEDS: SODIUM CHLORIDE NASAL 0.65% SPRAY BTL (OCEAN) SCH ×3 (09:00→21:00)
[2020-12-03] MEDS: SANTYL OINT 30GM TOP SCH (09:00)
[2020-12-03] MEDS: FLUTICASONE PROP 0.05% NASAL SPRAY 16 GM (FLONASE) NARES SCH ×2 (09:00→21:00)
[2020-12-03] MEDS: DOCUSATE SODIUM 100MG CAPSULE PO SCH ×2 (09:00→21:22)
[2020-12-03] MEDS: LEVEMIR (INSULIN DETEMIR) 1 UNITS/0.01ML SC SCH ×2 (09:08→21:24)
[2020-12-03] MEDS: METOPROLOL TART 50 MG TAB PO SCH ×2 (09:09→21:23)
[2020-12-03] MEDS: ASPIRIN 81MG ENTERIC TABLET PO SCH (09:11)
[2020-12-03] MEDS: PANTOPRAZOLE 40MG TAB (PROTONIX) PO SCH (09:11)
[2020-12-03] MEDS: ACETAMINOPHEN 500 MG TAB PO SCH ×3 (09:11→21:22)
[2020-12-03] MEDS: PREGABALIN 25 MG CAP (LYRICA) PO SCH ×2 (09:11→21:21)
[2020-12-03] MEDS: CitaloPRAM (CeleXA) 10 MG TABLET PO SCH (09:11)
[2020-12-03] MEDS: REMEDY PHYTOPLEX Z-GUARD PASTE 113GM TUBE (FROM STOREROOM PRODUCT) TOP SCH ×3 (09:12→21:24)
[2020-12-03] MEDS: HYDROmorphone 2 MG TAB PO PRN ×2 (09:18→21:22)
[2020-12-03] MEDS ORDERED: ceFAZolin SOD 1 GM in D5W MINI-BAG PLUS 50 ML IV ONE (13:00)
[2020-12-03] MEDS: LACTOBACILLUS ACIDOPHILUS CAP (BACID) PO SCH ×3 (13:02→21:21)
[2020-12-03 14:00] VITALS: BP 134/60
[2020-12-03] MEDS ORDERED: DARBEPOETIN 100 MCG/0.5 ML *DIALYSIS* SYRINGE (J0882) IV SCH (15:05)
--- NOTE | 2020-12-03 15:39 | IPNPDOC ---
Text Note Date of Service The patient was seen on 12/03/20. NOTE Subjective: No any acute events overnight. Right foot debridement was done y . Objective: GENERAL APPEARANCE: NAD HEENT: no scleral icterus, plus JVD, EOMI CARDIOVASCULAR: Irregularly irregular LUNGS: Diminished lung sounds bilaterally ABDOMEN: soft & not tender w palpation MUSCULOSKELETAL: no cyanosis, no swelling, multiple superficial wounds of both legs INTEGUMENT: no generalized pallor NEUROLOGICAL: cranial nerve function from 2-12 intact, follows commands, speech not dysarthric Assessment and plan Patient 75 years old male with past medical history of coronary artery disease status post CABG, severe aortic stenosis status post AVR with bioprosthetic valv e on Coumadin, atrial fibrillation, biventricular heart failure CKD stage IV, diabetes type 2, peripheral arterial disease status post angioplasty of the left lower extremity by Dr. Tafoya presented to hospital with intractable pain of both legs. During the hospital stay patient developed CVA on 11/25/2020. MRI did show a punctate R parietal acute CVA, as well severe stenosis involving the proximal aspect of the posterior cerebral artery. Patient was transferred to ARU on 12/02/2020 R parietal acute CVA Diet was modified Continue warfarin and aspirin Continue to monitor INR Continue PT/OT lower extremities/multiple superficial wounds/peripheral artery diseases Pain management Follow disease education specialist recommendation Vascular surgeon recommended Dr Arellano consult who is now on vacation till next week ESRD Continue dialysis, nephrology team follows him diastolic CHF Echo showed Normal LV size with mild LVH and preserved LV systolic function, estimated LVEF of 65% to 70%. Grade 2 diastolic dysfunction volume regulated by dialysis Patient euvolemic Anemia of chronic diseases Superimposed with iron deficiency anemia Aranesp as per nephro team Hemoglobin stable Atrial fibrillation/coronary artery disease Continue Coumadin, monitor INR Continue statin, metoprolol Type 2 diabetes Insulin sliding scale Diabetes diet Deconditioning/generalized weakness PT/OT VS,Fishbone, I+O VS, Fishbone, I+O Laboratory Tests 12/03/20 07:42 Vital Signs Date Time Temp Pulse Resp B/P (MAP) Pulse Ox O2 Delivery O2 Flow Rate FiO2 12/03/20 14:00 97.3 59 18 134/60 (84) 99 Room Air I&O- Last 24 Hours up to 6 AM 12/03/20 06:00 Intake Total 0 ml Output Total 225 ml Balance -225 ml DROZHZHIN,SRAVANTHI DO Dec 03, 2020 15:39
[2020-12-03] MEDS: MAGNESIUM SULFATE GRANULES(EPSOM SALT) 1LB TOP SCH (17:00)
[2020-12-03] MEDS: WARFARIN SOD 4MG TAB PO SCH (17:31)
[2020-12-03 20:00] VITALS: BP 125/64
[2020-12-03] MEDS: SENNA 8.6 MG TAB (SENOKOT) PO SCH (21:22)
[2020-12-03] MEDS: NORTRIPTYLINE 10 MG CAP PO SCH (21:23)
[2020-12-04] MEDS: HYDROmorphone 2 MG TAB PO PRN ×2 (04:29→20:31)
[2020-12-04 06:00] VITALS: BP 132/66
[2020-12-04 07:01] LABS: INR 1.82; PROTHROMBIN TIME 21.5 SECONDS (12.7-14.5)
[2020-12-04] MEDS: MAGIC MOUTHWASH SUSPENSION BTL SSP SCH ×3 (07:30→17:30)
[2020-12-04] MEDS: LEVEMIR (INSULIN DETEMIR) 1 UNITS/0.01ML SC SCH ×2 (08:16→20:32)
[2020-12-04] MEDS: HumaLOG INSULIN (NovoLOG) PER UNIT SC SCH ×4 (08:16→20:33)
[2020-12-04] MEDS: ACETAMINOPHEN 500 MG TAB PO SCH ×3 (08:17→20:31)
[2020-12-04] MEDS: ASPIRIN 81MG ENTERIC TABLET PO SCH (08:17)
[2020-12-04] MEDS: CitaloPRAM (CeleXA) 10 MG TABLET PO SCH (08:18)
[2020-12-04] MEDS: DOCUSATE SODIUM 100MG CAPSULE PO SCH ×2 (08:18→20:31)
[2020-12-04] MEDS: PREGABALIN 25 MG CAP (LYRICA) PO SCH ×2 (08:18→20:31)
[2020-12-04] MEDS: METOPROLOL TART 50 MG TAB PO SCH ×2 (08:18→20:34)
[2020-12-04] MEDS: LACTOBACILLUS ACIDOPHILUS CAP (BACID) PO SCH ×4 (08:18→20:31)
[2020-12-04] MEDS: SODIUM CHLORIDE NASAL 0.65% SPRAY BTL (OCEAN) SCH ×3 (08:18→20:32)
[2020-12-04] MEDS: PANTOPRAZOLE 40MG TAB (PROTONIX) PO SCH (08:18)
[2020-12-04] MEDS: REMEDY PHYTOPLEX Z-GUARD PASTE 113GM TUBE (FROM STOREROOM PRODUCT) TOP SCH ×3 (08:19→20:33)
[2020-12-04] MEDS: FLUTICASONE PROP 0.05% NASAL SPRAY 16 GM (FLONASE) NARES SCH ×2 (08:19→20:32)
[2020-12-04 14:00] VITALS: BP 128/63
[2020-12-04] MEDS: ceFAZolin SOD 1 GM in D5W MINI-BAG PLUS 50 ML IV SCH (18:25)
[2020-12-04] MEDS: SANTYL OINT 30GM TOP SCH (18:27)
[2020-12-04] MEDS: WARFARIN SOD 4MG TAB PO SCH (18:28)
[2020-12-04] MEDS: MAGNESIUM SULFATE GRANULES(EPSOM SALT) 1LB TOP SCH (18:28)
--- NOTE | 2020-12-04 19:57 | IPN ---
PROGRESS NOTE DATE: 12/04/2020 SUBJECTIVE: Mr. Bernard is seen this afternoon at his bedside. He is sitting on the edge of the bed eating his lunch. He denies any nausea, vomiting, dyspnea or chest pain. OBJECTIVE: PHYSICAL EXAMINATION: VITAL SIGNS: Temperature 97.7 degrees Fahrenheit, heart rate 66 per minute and respiratory rate 18 per minute, blood pressure 132/66 mm of mercury and oxygen saturation is 98% on room air. HEENT: His head is atraumatic. NECK: Supple JVD not accessible. He has a right sided internal jugular vein permacath in place. HEART: Regular. LUNGS: Slightly diminished at the left base. No wheezing or rales. ABDOMEN: Soft and nontender and bowel sounds are normal. EXTREMITIES: Without any cyanosis or clubbing. Lower extremity ulcers are covered with dressings. NEUROLOGICAL: He is at his baseline mentation. LABORATORY STUDIES: The patient did not have any new labs today. Yesterday his BUN was 30 and creatinine 2.47, potassium level 4.4 and sodium 136. PROBLEMS: 1. End-stage renal disease - The patient recently started dialysis. He has been dialyzed 3 times so far and he tolerated it very well. Next dialysis will be scheduled for December 05. 2. Congestive heart failure his volume status seems reasonably well compensated. We will continue to manage it with dialysis. So far he has tolerated fluid removal very well. He is not on any diuretics at present. 3. Anemia his anemia is stable and he will continue to receive Venofer 100 mg after each dialysis for a total of 10 doses. He is also receiving Aranesp 100 mcg once a week. 4. Peripheral vascular disease and ischemic ulcers - The patient has bilateral lower extremity ulcers which are being treated topically. He has also been receiving Cefazolin one gram every 24 hours now. He has had angioplasty on his left leg in the past. Dr. Tafoya has performed the procedure in the past. Now there is no contraindication for IV contrast use and further angioplasty can be performed as needed.
[2020-12-04 20:00] VITALS: BP 135/67
[2020-12-04] MEDS: SENNA 8.6 MG TAB (SENOKOT) PO SCH (20:31)
[2020-12-04] MEDS: NORTRIPTYLINE 10 MG CAP PO SCH (20:31)
[2020-12-05 06:00] VITALS: BP 128/64
[2020-12-05 07:03] LABS: BASO # 0.1 10^3/uL (0.0-0.2); BASO % 0.6 % (0.0-1.0); EOS # 0.7 10^3/uL (0.0-0.5); EOS % 7.5 % (0.0-3.0); HEMATOCRIT 29.1 % (42.0-52.0); HEMOGLOBIN 9.2 g/dl (13.5-17.5); LYMPH # 0.9 10^3/uL (1.5-5.0); LYMPH % 10.5 % (24.0-44.0); MEAN CORPUSCULAR HEMOGLOBIN 33.3 pg (27.0-33.0); MEAN CORPUSCULAR HGB CONC 31.6 g/dl (32.0-36.5); MEAN CORPUSCULAR VOLUME 105.4 fl (80.0-96.0); MONO # 0.8 10^3/uL (0.0-0.8); MONO % 8.7 % (2.0-8.0); NEUTROPHILS # 6.2 10^3/uL (1.5-8.5); NEUTROPHILS % 71.3 % (36.0-66.0); PLATELET COUNT, AUTOMATED 120 10^3/uL (150-450); RED BLOOD COUNT 2.76 10^6/uL (4.30-6.10); WHITE BLOOD COUNT 8.7 10^3/uL (4.0-10.0)
[2020-12-05 07:15] LABS: INR 1.89; PROTHROMBIN TIME 22.1 SECONDS (12.7-14.5)
[2020-12-05 07:21] LABS: ALBUMIN 2.1 GM/DL (3.2-5.2); CALCIUM LEVEL 8.2 MG/DL (8.8-10.2); CREATININE FOR GFR 3.46 MG/DL (0.70-1.30); GLOMERULAR FILTRATION RATE 18.5 (>42); PHOSPHORUS LEVEL 4.8 MG/DL (2.5-4.9); POTASSIUM SERUM 4.6 MEQ/L (3.5-5.1)
[2020-12-05] MEDS: PANTOPRAZOLE 40MG TAB (PROTONIX) PO SCH (08:41)
[2020-12-05] MEDS: LACTOBACILLUS ACIDOPHILUS CAP (BACID) PO SCH ×4 (08:42→21:17)
[2020-12-05] MEDS: FLUTICASONE PROP 0.05% NASAL SPRAY 16 GM (FLONASE) NARES SCH ×2 (08:42→21:20)
[2020-12-05] MEDS: PREGABALIN 25 MG CAP (LYRICA) PO SCH ×2 (08:42→21:18)
[2020-12-05] MEDS: MAGIC MOUTHWASH SUSPENSION BTL SSP SCH ×3 (08:42→17:09)
[2020-12-05] MEDS: REMEDY PHYTOPLEX Z-GUARD PASTE 113GM TUBE (FROM STOREROOM PRODUCT) TOP SCH ×3 (08:42→21:21)
[2020-12-05] MEDS: ACETAMINOPHEN 500 MG TAB PO SCH ×3 (08:42→21:19)
[2020-12-05] MEDS: SODIUM CHLORIDE NASAL 0.65% SPRAY BTL (OCEAN) SCH ×3 (08:42→21:20)
[2020-12-05] MEDS: LEVEMIR (INSULIN DETEMIR) 1 UNITS/0.01ML SC SCH ×2 (08:43→21:00)
[2020-12-05] MEDS: METOPROLOL TART 50 MG TAB PO SCH ×2 (08:43→21:18)
[2020-12-05] MEDS: ASPIRIN 81MG ENTERIC TABLET PO SCH (08:43)
[2020-12-05] MEDS: CitaloPRAM (CeleXA) 10 MG TABLET PO SCH (08:43)
[2020-12-05] MEDS: SANTYL OINT 30GM TOP SCH (08:44)
[2020-12-05] MEDS: HumaLOG INSULIN (NovoLOG) PER UNIT SC SCH ×4 (08:56→21:00)
[2020-12-05] MEDS: DOCUSATE SODIUM 100MG CAPSULE PO SCH ×2 (08:59→21:18)
[2020-12-05] MEDS: HYDROmorphone 2 MG TAB PO PRN ×3 (09:00→21:19)
--- NOTE | 2020-12-05 10:36 | IPNPDOC ---
PM&R Progress Note DATE OF SERVICE: Dec 05, 2020 Refuge Manager Progress Note Subjective: Patient seen in his room soaking his feet stating he felt his feet looked much better and his pain was improving. was on the phone with Rebeccaime and expressed concern that she had not been told her was on antibiotics and that she was told that her should not soak his feet. She was reassured that ID was seeing her patient to advise on wounds and that his feet were getting dried off after each soaking just prior to wound care dressings and that overall his feet were much less macerated than on admission to ARU She was encouraged to come in to review wound care and to see her 's feet in person. REVIEW OF SYSTEMS: The following is a completed review of systems and has been reviewed. Review of systems otherwise unremarkable. PAIN: Patient self reports bilat LE pain EYES: No recent vision changes EARS, NOSE, & THROAT: +dysphagia CARDIOVASCULAR: Denies chest pain or palpitations PULMONARY: Denies shortness of breath GASTROINTESTINAL: Denies constipation/diarrhea GENITOURINARY: denies dysuria MUSCULOSKELETAL: generalized weakness NEUROLOGICAL: +recent stroke HEMATOLOGICAL: +anemia SKIN: bilat LE wounds PSYCHIATRIC: Unremarkable All other review of systems found to be negative. PHYSICAL EXAMINATION: VITAL SIGNS: Please see below. GENERAL: Pleasant and cooperative. No acute distress. HEENT: PERRL. Extraocular movements intact. Clear conjunctiva CARDIOVASCULAR: Regular rate and rhythm. No murmurs, rubs, or gallops LUNGS: Clear to auscultation bilaterally. No wheezes. No rhonchi ABDOMEN: Soft, nontender, nondistended. Positive bowel sounds. Normal active bowel sounds NEUROLOGICAL: Alert and oriented times three. Cranial nerves II through XII grossly intact. Sensation diminished to light touch in LE stocking pattern EXTREMITIES: 5\\5 strength bilateral upper extremities. bilat hip flexors and knee extension 4/5, ankle DF/PF difficult to assess given swelling and copious wounds SKIN: right chest wall permacath in place right medial calf ulcer (scant exudate), right D1 toe ulcer left calf scattered ulcers, left foot and toe region with (less) macerated tissue, exudative ulcers on toes with less exudate ASSESSMENT:75-year-old M with complex PMH who presents status post right parietal infarct and recent transition to ESRD with dialysys PLAN: 1. REhab- PT/OT advance mobility and ADLs, strengthen/stretch/maintain ROM all 4l limbs- post-op shoes to be work with ambulation -REGISTER CLERK for dysphagia in setting of stroke 2. Neuro- s/p right parietal lacunar infarct with weakness and mobility impairments, cont aspirin and coumadin for secondary stroke prevention 3. VAsc- patient with severe LE arterial stenosis with wounds, f/u Dr. Mcclure for wound care, Dr. Burton for possible further angioplasty cont ASA as per vascular surgeon recs 4. CArdiac- hx of chronic CHF with recent ECHO significant for grade 2 diastolic dysfunction- will avoid fluid restriction due to dysphagia diet, fluid management per renal with dialysis -Afib and TAVR on couamdin, metoprolol 5. Resp- monitor fo infection 6. Endo- hx of DM with peripheral vascular complications- cont Levemir and ISS, adjust prn 7. GI ppx- protonix 8. DVT ppx- on coumadin 10. Psych- depression cont celexa 11. Pain- Lyrica 25mg BID, dilaudid 2mg q4h prn, cont low dose of pamelor for neuropathic pain and cross taper with celexa- so far pamelor is effective 12. Renal- ESRD on HD, renal consulted 13. heme- anemia of chronic disease, renal following 14. Skin- LE wounds improved on today's exam, please see dressing change or dered, received Cefazolin on inpatient 11/29-12/02, cont Cefazolin, Dr. Mart patten appreciated -cont bacid, monitor CRP/ESR 15. Dispo- TBD Allergies Coded Allergies: [place] (Verified Allergy, Severe, ANAPHYLAXIS, 11/09/14) Penicillins (Verified Allergy, Severe, Anaphylaxis, 02/17/20) HAS RECEIVED 2nd & 3RD GEN CEPHALOSPORINS w/o PROBLEM metformin (Verified Allergy, Severe, Tongue swelling, 07/02/18) Oxplecv-Cnq-[id number] Reductase Inhibitor (Verified Adverse Reaction, Intermediate, Altered Mental Status, 07/02/18) codeine (Verified Adverse Reaction, Mild, "out of it". , 02/17/20) mixed with guifenasin duloxetine (Unverified Adverse Reaction, Mild, Nausea and vomiting, 07/02/18) clindamycin (Verified Adverse Reaction, Unknown, DIARRHEA, 11/23/20) Vital Signs Vital Signs Date Time Temp Pulse Resp B/P (MAP) Pulse Ox O2 Delivery O2 Flow Rate FiO2 12/05/20 09:30 14 12/05/20 08:43 66 128/64 12/05/20 06:00 97.6 98 Room Air Laboratory Data CBC/BMP Laboratory Tests 12/05/20 06:47 Labs 24H Laboratory Tests 2 12/04/20 12:24: Bedside Glucose (Misc Panel) 139H 12/04/20 16:31: Bedside Glucose (Misc Panel) 144H 12/04/20 19:53: Bedside Glucose (Misc Panel) 173H 12/05/20 05:52: Bedside Glucose (Misc Panel) 153H 12/05/20 06:47: Immature Granulocyte % (Auto) 1.4, Neutrophils (%) (Auto) 71.3H, Lymphocytes (%) (Auto) 10.5L, Monocytes (%) (Auto) 8.7H, Eosinophils (%) (Auto) 7.5H, Basophils (%) (Auto) 0.6, Neutrophils # (Auto) 6.2, Lymphocytes # (Auto) 0.9L, Monocytes # (Auto) 0.8, Eosinophils # (Auto) 0.7H, Basophils # (Auto) 0.1, Nucleated Red Blood Cells % (auto) 0.0, Prothrombin Time 22.1H, Prothromb Time International Ratio 1.89, Anion Gap 8, Glomerular Filtration Rate 18.5L, Calcium Level 8.2L, Phosphorus Level 4.8, Albumin 2.1L Current Medications Current Medications Current Medications Medications (Trade) Dose Ordered Sig/Jackelin Route PRN Reason Start Time Stop Time Status Last Admin Dose Admin Acetaminophen (Tylenol Tab) 1,000 mg TID PO 12/02/20 21:00 12/05/20 08:42 Aspirin (Ecotrin) 81 mg DAILY PO 12/03/20 09:00 12/05/20 08:43 Bisacodyl (Dulcolax Suppository) 10 mg DAILYPRN PRN [place] CONSTIPATION 12/02/20 15:05 Cefazolin Sodium 1 gm/Dextrose 50 ml @ 100 mls/hr Q24H IV 12/04/20 16:00 12/04/20 18:25 Citalopram Hydrobromide (CeleXA) 10 mg DAILY PO 12/03/20 09:00 12/05/20 08:43 Collagenase (SantyL) per nursing wound c... DAILY TOP 12/03/20 09:00 12/05/20 08:44 Darbepoetin Jos (Aranesp (Dialysis Use)) 100 mcg HD IV 12/03/20 15:05 Dextrose (Dextrose 50%) 25 ml ASDIRECTED PRN IV SEE LABEL COMMENTS 12/02/20 15:05 Docusate Sodium (Colace) 100 mg BID PO 12/02/20 21:00 12/05/20 08:59 Emollient Cream (Vanicream) bilat LE (avoid o... BID TOP 12/02/20 21:00 12/03/20 11:46 DC 12/02/20 21:10 Fluticasone Propionate (Flonase 0.05% Nasal Sabin) 1 spray BID NARES 12/03/20 09:00 12/05/20 08:42 Glucagon (Glucagon) 1 mg ASDIRECTED PRN SC SEE LABEL COMMENTS 12/02/20 15:05 Glucose (Glucose) 16 GM ASDIRECTED PRN PO SEE LABEL COMMENTS 12/02/20 15:05 Heparin Sodium (Heparin) Please refer to ... ASDIRECTED XX 12/05/20 06:00 12/06/20 05:59 Heparin Sodium (Heparin) dose as per volume indica... ASDIRECTED PRN IV SEE LABEL COMMENTS 12/05/20 06:00 12/05/20 19:24 Hydromorphone HCl (Dilaudid) 2 mg Q4H PRN PO PAIN LEVEL 7-10 12/02/20 20:30 12/05/20 09:00 Insulin Detemir (Levemir Insulin) 15 units BID SC 12/02/20 21:00 12/05/20 08:43 Insulin Human Lispro (HumaLOG INSULIN) SEE PROTOCOL TABLE AC SC 12/02/20 17:30 12/05/20 08:56 Insulin Human Lispro (HumaLOG INSULIN) SEE PROTOCOL TABLE QHS SC 12/02/20 21:00 Iron (Venofer) 100 mg HD IV 12/03/20 15:05 Lactobacillus Acidophilus (Bacid) 1 ea WMHS PO 12/03/20 12:30 12/05/20 08:42 Lidocaine/ Diphenhydr/Alum/ Mg/Simeth (Magic Mouthwash) 5ML AC SSP 12/02/20 17:30 12/05/20 08:42 Magnesium Sulfate (Epsom Salt) soak bilateral feet ... DAILY@1700 TOP 12/03/20 17:00 12/04/20 18:28 Metoprolol Tartrate (Lopressor) 50 mg BID PO 12/02/20 21:00 12/05/20 08:43 Nortriptyline HCl (Pamelor) 10 mg QHS PO 12/03/20 21:00 12/04/20 20:31 Oxycodone HCl (Roxicodone, Oxyir) 5 mg Q4HP PRN PO MODERATE PAIN (PS 5-7) 12/02/20 19:20 Cancel Pantoprazole Sodium (Protonix) 40 mg DAILY PO 12/03/20 09:00 12/05/20 08:41 Pregabalin (Lyrica) 25 mg BID PO 12/02/20 21:00 12/05/20 08:42 Senna (Senokot) 1 tab QHS PO 12/02/20 21:00 12/04/20 20:31 Sodium Chloride ([place] Nasal Sabin) 1 spray TID NA 12/03/20 09:00 12/05/20 08:42 Tramadol HCl (Ultram) 75 mg Q4HP PRN PO MODERATE PAIN (PS 5-7) 12/02/20 15:05 Cancel Warfarin Sodium (Coumadin) 2.5 mg Th@1700 PO 12/08/20 17:00 12/05/20 10:31 DC Warfarin Sodium (Coumadin) 4 mg SuMoTuWeFrSa@1700 PO 12/03/20 17:00 12/05/20 10:31 DC 12/04/20 18:28 Warfarin Sodium (Coumadin) 5 mg DAILY@17 PO 12/05/20 17:00 CACHORRO BRANTLEY MD Dec 05, 2020 10:36
[2020-12-05 11:19] LABS: C REACTIVE PROTEIN QUANTITATIV 9.13 MG/DL (0.00-0.30)
[2020-12-05 11:42] LABS: C REACTIVE PROTEIN QUANTITATIV 8.2 MG/DL (0.00-0.30)
[2020-12-05 12:21] LABS: ERYTHROCYTE SEDIMENTATION RATE 94 mm/hr (0-20)
--- NOTE | 2020-12-05 13:10 | IPN ---
PROGRESS NOTE DATE: 12/05/2020 SUBJECTIVE: Patient was seen and examined at the bedside today morning in the Rehab Unit. He was getting ready to do his physical therapy when I saw him. He denies any other active complaints. Patient is doing to have his hemodialysis today in the afternoon. He reports that he feels much better after starting on hemodialysis. OBJECTIVE: VITAL SIGNS: Temperature is 97.6 degrees Fahrenheit, blood pressure is 128/64, pulse is 66, respiratory rate is 16, saturating 98% on room air. INTAKE AND OUTPUT: Urine output is not recorded. Weight on the bed scale is 89.1 kg. GENERAL: Patient is awake, alert and oriented x3 sitting up, in no apparent distress. HEAD AND NECK: Extraocular muscles intact. Pupils equally round and reactive to light. Mucous membranes are moist. Neck is supple. He has a right IJ tunneled hemodialysis catheter. CARDIOVASCULAR: S1 and S2, regular rate. There is 1+ edema of the bilateral lower extremities. RESPIRATORY: Chest is clear to auscultation bilaterally. Bilateral equal air entry. No rales or rhonchi. ABDOMEN: Soft, positive bowel sounds. Nontender. No organomegaly. MUSCULOSKELETAL: Patient has a dressing on the lower extremities because of ulcers. BOTTOM PRESSER: No focal deficit. Power is 5/5 in all extremities. LABORATORY DATA: CBC showed a WBC of 8.7, hemoglobin of 9.2, platelets of 120,000. BMP showed a sodium of 137, potassium of 4.6, chloride 110, bicarbonate 19, BUN 48, creatinine is 3.4. CURRENT INPATIENT MEDICATIONS: The patient's medications were all reviewed by myself. He continues to be on IV Ancef, the warfarin dose has been changed by the medical team. No other significant change in his medications today. ASSESSMENT AND PLAN: 1. Endstage renal disease. Patient will be dialyzed today in the afternoon. Ultrafiltration goal will be around 2 liters as tolerated by his blood pressure. 2. Anemia and endstage renal disease. Hemoglobin level is stable. Continue current dose of Aranesp and Venofer with dialysis. 3. Congestive heart failure. Patient has an LV ejection fraction of 65% to 70% with Grade 2 diastolic dysfunction. Volume status is being optimized for dialysis. He will get 2 liters of fluid removed today. Continue metoprolol 50 mg p.o. twice a day. 4. Peripheral vascular disease and ulcers of lower extremities. Patient continues to be on Cefazolin. The rest of the management is as per Interventional Radiology or Vascular Surgery.
[2020-12-05] MEDS: IRON SUCROSE 100MG 5ML VIAL (J1756 PER 1MG) IV SCH (13:36)
[2020-12-05] MEDS ORDERED: WARFARIN SOD 5MG TAB PO SCH (17:00)
[2020-12-05] MEDS: MAGNESIUM SULFATE GRANULES(EPSOM SALT) 1LB TOP SCH (17:08)
[2020-12-05] MEDS: ceFAZolin SOD 1 GM in D5W MINI-BAG PLUS 50 ML IV SCH (17:09)
--- NOTE | 2020-12-05 18:52 | CR ---
INFECTIOUS DISEASE CONSULTATION DATE: 12/05/2020 REASON FOR CONSULTATION: Asked to consult by Dr. Sandra Holland for evaluation of lower extremity ulceration. HISTORY OF PRESENT ILLNESS: Mr. Pabon is a 75-year-old gentleman with a complicated history including coronary artery disease status post coronary artery bypass graft (CABG), severe aortic stenosis status post aortic valve replacement with bioprosthetic valve, atrial fibrillation, biventricular heart failure, end-stage renal disease on dialysis, diabetes type 2, peripheral vascular disease status post angioplasty of left lower extremity by Dr. Tafoya. Patient presented to the emergency room with intractable lower extremity pain and multiple ulcerations with edema. The patient denied any chest pain, shortness of breath, fever, chills, nausea, vomiting or diarrhea. He followed up with Dr. Mcclure in the clinic on 11/10/2020 for wound debridement. He underwent an angiogram by Dr. Tafoya in June 2020, which showed a popliteal and peroneal stenosis of the left foot. The patient underwent angioplasty. Patient admitted for pain management and lower extremity ulcers. During the hospitalization, he did not receive any antibiotics from 11/24/2020 to 12/02/2020, was transferred to the care of Dr. Holland for rehabilitation. She started him on intravenous (IV) cefazolin due to the fact that his wounds were not healing. Erythrocyte sedimentation rate (ESR) was 94 and C-reactive protein (CRP) was 9.1. He states since he has been on dialysis, the pain is better and the ulcers have improved. PAST MEDICAL HISTORY: 1. Severe aortic stenosis, aortic valve replacement (AVR) 02/21/2018. 2. Coronary artery disease. 3. Obstructive sleep apnea. 4. End-stage renal disease. 5. Non-insulin dependent diabetes. 6. Peripheral vascular disease. 7. Congestive heart failure, moderate to severe. 8. Hypertension. 9. Lewy body dementia. 10. Anemia of chronic disease. 11. Cardiac arrest times two. 12. Ventricular fibrillation (V-fib) arrest. 13. Tracheostomy with feeding tube. 14. Atrial fibrillation on anticoagulation. 15. Multiple strokes. 16. Multifocal methicillin-resistant Staphylococcus aureus (MRSA) pneumonia in 2019. 17. Squamous cell carcinoma of the skin. PAST SURGICAL HISTORY: 1. Cataract surgery. 2. Malignant melanoma surgery. 3. Aortic valve replacement at [facility] and coronary artery bypass graft (CABG) in 02/21/2018. 4. Left fifth toe amputation. 5. Right fifth toe amputation. SOCIAL HISTORY: Denies alcohol or drug use. He lives with his . PHYSICAL EXAMINATION: GENERAL: Patient was seen in dialysis. He is a frail, elderly man in no acute distress. He states he is hard of hearing and has difficulty seeing, but he is alert, oriented and is able to respond appropriately. VITAL SIGNS: Temperature 97.8, pulse 69, respirations 16, blood pressure 137/69, oxygen saturation 95% on room air. HEART: Normal S1, S2. Distant with systolic ejection murmur 04/13. Coronary artery bypass graft (CABG) surgery well-healed. LUNGS: Clear. No wheezes, rales or rhonchi. ABDOMEN: Soft, nontender. No hepatosplenomegaly. EXTREMITIES: 1+ edema bilaterally. Multiple ulcerations on both lower extremities with ischemic ulcers on the toes. There is a large supramalleolar ulcer on the right leg, measuring about 4 x 2 cm. There is a necrotic black eschar on the right big toe measuring 1 cm, dry with no purulence. Dry scaliness with purplish discoloration of the skin on the right foot. Left leg has smaller ulceration measuring about 2 x 1 cm without evidence of infection. Left foot has multiple ulcerations all over the toes, especially the second, fourth and fifth. The ulcers measure about 1-2 cm in size. There is onychomycosis times ten. Pulses could not be appreciated without a Doppler. MUSCULOSKELETAL: Hemodialysis catheter placed in the upper chest by Dr. Gross on 11/28/2020 with no redness. LABORATORY DATA: White count 8.9, hemoglobin 8.8, hematocrit 27.3, platelets 128, 69% neutrophils, 14% lymphocytes, 9% monocytes. Erythrocyte sedimentation rate (ESR) more than 140 on 11/24/2020 and currently 94. Sodium 137, potassium 4.6, chloride 110, bicarbonate 19, BUN 48, creatinine 3.46, glucose 146, calcium 8.2. C-reactive protein (CRP) 8.2, down from 9.13. Albumin 2.1. Parathyroid hormone (PTH) 9.1. Blood cultures two sets are negative. Urine culture negative. IMPRESSION: This is a 75-year-old gentleman with a history of peripheral vascular disease, coronary artery disease, congestive heart failure, aortic valve replacement with multiple comorbidities, now with end-stage renal disease on dialysis. He has multiple ischemic leg ulcers, which are mostly due to peripheral vascular disease. He may have a superimposed wound infection. The patient was started on IV cefazolin and dialysis with improvement of his symptoms. PLAN: Continue with IV cefazolin for seven days. Continue with wound dressing changes per Dr. Mcclure. At this point, I do not see any reason for amputation. Continue with conservative management. We will obtain wound culture from the right medial wound to decide whether cefazolin is appropriate coverage or he may need some other coverage for methicillin-resistant Staphylococcus aureus (MRSA). He has a previous history of MRSA. We will discuss the case with Dr. Mcclure. At this point, the patient seems to have clinically improved with dialysis and conservative management.
[2020-12-05 20:00] VITALS: BP 130/63
[2020-12-05] MEDS: NORTRIPTYLINE 10 MG CAP PO SCH (21:18)
[2020-12-05] MEDS: SENNA 8.6 MG TAB (SENOKOT) PO SCH (21:18)
[2020-12-06] MEDS: HYDROmorphone 2 MG TAB PO PRN ×3 (01:26→16:24)
[2020-12-06 06:00] VITALS: BP 123/60
[2020-12-06 07:22] LABS: INR 1.8; PROTHROMBIN TIME 21.3 SECONDS (12.7-14.5)
[2020-12-06] MEDS: LEVEMIR (INSULIN DETEMIR) 1 UNITS/0.01ML SC SCH ×2 (08:55→22:00)
[2020-12-06] MEDS: PREGABALIN 25 MG CAP (LYRICA) PO SCH ×2 (08:56→21:59)
[2020-12-06] MEDS: DOCUSATE SODIUM 100MG CAPSULE PO SCH ×2 (08:56→21:59)
[2020-12-06] MEDS: ASPIRIN 81MG ENTERIC TABLET PO SCH (08:56)
[2020-12-06] MEDS: PANTOPRAZOLE 40MG TAB (PROTONIX) PO SCH (08:56)
[2020-12-06] MEDS: METOPROLOL TART 50 MG TAB PO SCH ×2 (08:56→22:00)
[2020-12-06] MEDS: HumaLOG INSULIN (NovoLOG) PER UNIT SC SCH ×4 (08:56→21:00)
[2020-12-06] MEDS: LACTOBACILLUS ACIDOPHILUS CAP (BACID) PO SCH ×4 (08:56→21:59)
[2020-12-06] MEDS: MAGIC MOUTHWASH SUSPENSION BTL SSP SCH ×3 (08:56→18:18)
[2020-12-06] MEDS: ACETAMINOPHEN 500 MG TAB PO SCH ×3 (08:57→21:59)
[2020-12-06] MEDS: FLUTICASONE PROP 0.05% NASAL SPRAY 16 GM (FLONASE) NARES SCH ×2 (08:57→21:00)
[2020-12-06] MEDS: SODIUM CHLORIDE NASAL 0.65% SPRAY BTL (OCEAN) SCH ×3 (08:57→21:00)
[2020-12-06] MEDS: REMEDY PHYTOPLEX Z-GUARD PASTE 113GM TUBE (FROM STOREROOM PRODUCT) TOP SCH ×3 (08:57→21:00)
[2020-12-06] MEDS: SANTYL OINT 30GM TOP SCH (09:01)
[2020-12-06 14:00] VITALS: BP 145/67
[2020-12-06] MEDS: WARFARIN SOD 3MG TAB PO SCH (16:21)
[2020-12-06] MEDS: ceFAZolin SOD 1 GM in D5W MINI-BAG PLUS 50 ML IV SCH (16:21)
[2020-12-06] MEDS: MAGNESIUM SULFATE GRANULES(EPSOM SALT) 1LB TOP SCH (16:22)
--- NOTE | 2020-12-06 18:06 | IPN ---
NEPHROLOGY PROGRESS NOTE DATE: 12/06/2020 SUBJECTIVE: Patient was seen and examined at the bedside today morning. He was actually getting his physical therapy when I saw him in the rehabilitation unit. He was dialyzed yesterday. He tolerated the hemodialysis procedure well. OBJECTIVE: VITAL SIGNS: Temperature 97.3 degrees Fahrenheit, blood pressure 145/67, pulse 69, respiratory rate 18, saturating 96% on room air. INTAKE AND OUTPUT: Urine output is not recorded. Ultrafiltration with hemodialysis was 2 liters. Weight in the bed scale is 89.1 kg. PHYSICAL EXAMINATION: GENERAL: Patient is awake, alert, oriented times three. HEAD AND NECK EXAM: Extraocular muscles intact. Pupils equally round and reactive to light. Mucous membranes are moist. Neck is supple. He has a tunneled hemodialysis catheter. CARDIOVASCULAR: S1, S2. Regular rate. Trace edema of the bilateral lower extremities. RESPIRATORY: Chest is clear to auscultation bilaterally. Bilateral equal air entry. No rales or rhonchi. ABDOMEN: Soft. Positive bowel sounds. Nontender. No organomegaly MUSCULOSKELETAL: Patient has dressings on the bilateral feet because of ulcers. CENTRAL NERVOUS SYSTEM (FURNACE COMBUSTION ANALYST): No focal deficit. Power is 5/5 in all extremities. LABORATORY REVIEW: CBC from yesterday showed WBC 8.7, hemoglobin 9.2, platelets 120. BMP is from yesterday. There are no new labs available from today. CURRENT INPATIENT MEDICATIONS: Patient's medications were all reviewed by myself. There is no significant change in the medications today as compared with yesterday. His Celexa has been stopped. He has been started on nortriptyline 20 mg at bedtime. Warfarin dose has been changed to 6 mg by mouth daily. ASSESSMENT AND PLAN: 1. End-stage renal disease. Patient was dialyzed yesterday. His volume status is stable. Next hemodialysis will be done tomorrow morning. 2. Anemia in end-stage renal disease. Continue Venofer and Aranesp. 3. Diastolic congestive heart failure. Volume status is optimal. Currently, he is not on any diuretics. Continue current dose of metoprolol. 4. Peripheral vascular disease and ulcers of lower extremities. Patient is on cefazolin. The rest of the management is as per interventional radiology.
[2020-12-06 20:00] VITALS: BP 124/60
[2020-12-06] MEDS ORDERED: NORTRIPTYLINE 10 MG CAP PO ONE (21:00)
[2020-12-06] MEDS: SENNA 8.6 MG TAB (SENOKOT) PO SCH (21:59)
[2020-12-07 06:22] VITALS: BP 124/63
[2020-12-07 06:46] LABS: INR 1.98; PROTHROMBIN TIME 22.9 SECONDS (12.7-14.5)
[2020-12-07] MEDS: REMEDY PHYTOPLEX Z-GUARD PASTE 113GM TUBE (FROM STOREROOM PRODUCT) TOP SCH ×3 (09:00→20:26)
[2020-12-07 09:07] LABS: ALBUMIN 2.2 GM/DL (3.2-5.2); BILIRUBIN,TOTAL 0.6 MG/DL (0.2-1.0); CALCIUM LEVEL 7.5 MG/DL (8.8-10.2); CREATININE FOR GFR 3.61 MG/DL (0.70-1.30); GLOMERULAR FILTRATION RATE 17.6 (>42); POTASSIUM SERUM 3.8 MEQ/L (3.5-5.1); TOTAL PROTEIN 6.6 GM/DL (6.4-8.2)
[2020-12-07 09:15] LABS: BASO # 0.1 10^3/uL (0.0-0.2); BASO % 0.6 % (0.0-1.0); EOS # 0.6 10^3/uL (0.0-0.5); EOS % 7.2 % (0.0-3.0); HEMATOCRIT 27.6 % (42.0-52.0); HEMOGLOBIN 8.8 g/dl (13.5-17.5); LYMPH # 0.9 10^3/uL (1.5-5.0); LYMPH % 11.2 % (24.0-44.0); MEAN CORPUSCULAR HEMOGLOBIN 33.8 pg (27.0-33.0); MEAN CORPUSCULAR HGB CONC 31.9 g/dl (32.0-36.5); MEAN CORPUSCULAR VOLUME 106.2 fl (80.0-96.0); MONO % 11.8 % (2.0-8.0); NEUTROPHILS # 5.6 10^3/uL (1.5-8.5); NEUTROPHILS % 68.3 % (36.0-66.0); PLATELET COUNT, AUTOMATED 123 10^3/uL (150-450); WHITE BLOOD COUNT 8.2 10^3/uL (4.0-10.0)
[2020-12-07] MEDS: PANTOPRAZOLE 40MG TAB (PROTONIX) PO SCH (09:50)
[2020-12-07] MEDS: ASPIRIN 81MG ENTERIC TABLET PO SCH (09:50)
[2020-12-07] MEDS: LACTOBACILLUS ACIDOPHILUS CAP (BACID) PO SCH ×4 (09:50→20:17)
[2020-12-07] MEDS: PREGABALIN 25 MG CAP (LYRICA) PO SCH ×2 (09:50→20:17)
[2020-12-07] MEDS: DOCUSATE SODIUM 100MG CAPSULE PO SCH ×2 (09:50→20:17)
[2020-12-07] MEDS: LEVEMIR (INSULIN DETEMIR) 1 UNITS/0.01ML SC SCH ×2 (09:51→20:21)
[2020-12-07] MEDS: HumaLOG INSULIN (NovoLOG) PER UNIT SC SCH ×4 (09:51→20:20)
[2020-12-07] MEDS: ACETAMINOPHEN 500 MG TAB PO SCH ×3 (09:52→20:19)
[2020-12-07] MEDS: METOPROLOL TART 50 MG TAB PO SCH ×2 (09:53→20:20)
[2020-12-07] MEDS: MAGIC MOUTHWASH SUSPENSION BTL SSP SCH ×3 (10:00→17:18)
[2020-12-07] MEDS: SODIUM CHLORIDE NASAL 0.65% SPRAY BTL (OCEAN) SCH ×3 (10:02→20:26)
[2020-12-07] MEDS: FLUTICASONE PROP 0.05% NASAL SPRAY 16 GM (FLONASE) NARES SCH ×2 (10:02→20:26)
[2020-12-07] MEDS: IRON SUCROSE 100MG 5ML VIAL (J1756 PER 1MG) IV SCH (13:30)
[2020-12-07] MEDS: SANTYL OINT 30GM TOP SCH (13:39)
--- NOTE | 2020-12-07 14:06 | IPNPDOC ---
PM&R Progress Note DATE OF SERVICE: Dec 07, 2020 [employer]um Container T[employer] Progress Note Subjective: Patient seen in his room stating he feels ok and that he is having less pain. His was bedside and she was able to see his left foot/leg which was redr essed and was educated on importance of applying skin prep to macerated tissue and to keep the areas between the toes dry and . REVIEW OF SYSTEMS: The following is a completed review of systems and has been reviewed. Review of systems otherwise unremarkable. PAIN: Patient self reports bilat LE pain EYES: No recent vision changes EARS, NOSE, & THROAT: +dysphagia CARDIOVASCULAR: Denies chest pain or palpitations PULMONARY: Denies shortness of breath GASTROINTESTINAL: Denies constipation/diarrhea GENITOURINARY: denies dysuria MUSCULOSKELETAL: generalized weakness NEUROLOGICAL: +recent stroke HEMATOLOGICAL: +anemia SKIN: bilat LE wounds PSYCHIATRIC: Unremarkable All other review of systems found to be negative. PHYSICAL EXAMINATION: VITAL SIGNS: Please see below. GENERAL: Pleasant and cooperative. No acute distress. HEENT: PERRL. Extraocular movements intact. Clear conjunctiva CARDIOVASCULAR: Regular rate and rhythm. No murmurs, rubs, or gallops LUNGS: Clear to auscultation bilaterally. No wheezes. No rhonchi ABDOMEN: Soft, nontender, nondistended. Positive bowel sounds. Normal active bowel sounds NEUROLOGICAL: Alert and oriented times three. Cranial nerves II through XII grossly intact. Sensation diminished to light touch in LE stocking pattern EXTREMITIES: 5\\5 strength bilateral upper extremities. bilat hip flexors and knee extension 4/5, ankle DF/PF difficult to assess given swelling and copious wounds SKIN: right chest wall permacath in place right medial calf ulcer (scant exudate), right D1 toe ulcer left calf scattered ulcers (dry), left foot and toe region with (scant) macerated tissue, ulcers on toes with scant exudate ASSESSMENT:75-year-old M with complex PMH who presents status post right parietal infarct and recent transition to ESRD with dialysys PLAN: 1. 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 Neuro- s/p right parietal lacunar infarct with weakness and mobility impairments, cont aspirin and coumadin for secondary stroke prevention 3. [facility]sc- patient with severe LE arterial stenosis with wounds, f/u Dr. Mcclure for wound care, Dr. Burton for possible further angioplasty cont ASA as per vascular surgeon recs 4. CArdiac- hx of chronic CHF with recent ECHO significant for grade 2 diastolic dysfunction- will avoid fluid restriction due to dysphagia diet, fluid management per renal with dialysis -Afib and TAVR on couamdin, metoprolol 5. Resp- monitor fo infection 6. Endo- hx of DM with peripheral vascular complications- cont Levemir and ISS, adjust prn 7. GI ppx- protonix 8. DVT ppx- on coumadin 10. Psych- depression cross-tapering with Pamelor to better treat neuropathic pain 11. Pain- Lyrica 25mg BID, dilaudid 2mg q4h prn, will complete cross taper pamelor for neuropathic pain and d/c celexa as nerve pain is improving on this regimen 12. Renal- ESRD on HD, renal consulted 13. heme- anemia of chronic disease, renal following 14. Skin- LE wounds cont to improve, dressing change orders updated, spoke with Dr. Mcclure about wound care at length and he is ok with use of hydrofera and skin prep to debride tissue and protect kevin-wound skin respectively, Dr. Mcclure does not typically advise soaking feet due to concern for maceration, I will stop epsom salt baths although I think it has been helpful to date and that because the soaking has been followed directly by dressing changes, his feet have not become more macerate, but instead less, overall patients feet are improving since admission to ARU with daily dressing changes, I spoke with at length today over the phone about her concerns regarding his wounds and then asked her to come in to review the dressing changes and show her how skin prep can be very helpful to prevent maceration of periwound region and the importance of keeping the area between the toes dry, patient continues to say he thinks his feet look better than they did on admission to ARU -cont Cefazolin, Dr. Mart patten appreciated -cont bacid, monitor CRP/ESR -patient will need to follow-up with Dr. Tafoya who is not in-house at this time 15. Dispo- 12-13-20 to home, progressing towards goals Allergies Coded Allergies: [place] (Verified Allergy, Severe, ANAPHYLAXIS, 11/09/14) Penicillins (Verified Allergy, Severe, Anaphylaxis, 02/17/20) HAS RECEIVED 2nd & 3RD GEN CEPHALOSPORINS w/o PROBLEM metformin (Verified Allergy, Severe, Tongue swelling, 07/02/18) Lkgcmlw-Oxe-Qrg Reductase Inhibitor (Verified Adverse Reaction, Intermediate, Altered Mental Status, 07/02/18) codeine (Verified Adverse Reaction, Mild, "out of it". , 02/17/20) mixed with guifenasin duloxetine (Unverified Adverse Reaction, Mild, Nausea and vomiting, 07/02/18) clindamycin (Verified Adverse Reaction, Unknown, DIARRHEA, 02/29/20) Vital Signs Vital Signs Date Time Temp Pulse Resp B/P (MAP) Pulse Ox O2 Delivery O2 Flow Rate FiO2 12/07/20 09:53 71 132/68 12/07/20 06:22 98.2 18 96 Room Air Laboratory Data CBC/BMP Laboratory Tests 12/07/20 05:50 12/07/20 08:27 Labs 24H Laboratory Tests 2 12/06/20 17:38: Bedside Glucose (Misc Panel) 153H 12/06/20 19:58: Bedside Glucose (Misc Panel) 191H 12/07/20 04:58: Bedside Glucose (Misc Panel) 146H 12/07/20 05:50: Anion Gap 9, Glomerular Filtration Rate 17.6L, Calcium Level 7.5L, Total Bilirubin 0.6, Aspartate Amino Transf (AST/SGOT) 11, Alanine Aminotransferase (ALT/SGPT) 9L, Alkaline Phosphatase 110, Total Protein 6.6, Albumin 2.2L, Albumin/Globulin Ratio 0.5 12/07/20 05:51: Prothrombin Time 22.9H, Prothromb Time International Ratio 1.98 12/07/20 08:27: Immature Granulocyte % (Auto) 0.9, Neutrophils (%) (Auto) 68.3H, Lymphocytes (%) (Auto) 11.2L, Monocytes (%) (Auto) 11.8H, Eosinophils (%) (Auto) 7.2H, Basophils (%) (Auto) 0.6, Neutrophils # (Auto) 5.6, Lymphocytes # (Auto) 0.9L, Monocytes # (Auto) 1.0H, Eosinophils # (Auto) 0.6H, Basophils # (Auto) 0.1, Nucleated Red Blood Cells % (auto) 0.0 12/07/20 11:52: Bedside Glucose (Misc Panel) 197H Current Medications Current Medications Current Medications Medications (Trade) Dose Ordered Sig/Jackelin Route PRN Reason Start Time Stop Time Status Last Admin Dose Admin Acetaminophen (Tylenol Tab) 1,000 mg TID PO 12/02/20 21:00 12/07/20 09:52 Aspirin (Ecotrin) 81 mg DAILY PO 12/03/20 09:00 12/07/20 09:50 Bisacodyl (Dulcolax Suppository) 10 mg DAILYPRN PRN DC CONSTIPATION 12/02/20 15:05 Cefazolin Sodium 1 gm/Dextrose 50 ml @ 100 mls/hr Q24H IV 12/04/20 16:00 12/06/20 16:21 Citalopram Hydrobromide (CeleXA) 10 mg DAILY PO 12/03/20 09:00 12/06/20 08:55 DC 12/05/20 08:43 Collagenase (SantyL) per nursing wound c... DAILY TOP 12/03/20 09:00 12/07/20 13:39 Darbepoetin Jos (Aranesp (Dialysis Use)) 100 mcg HD IV 12/03/20 15:05 Dextrose (Dextrose 50%) 25 ml ASDIRECTED PRN IV SEE LABEL COMMENTS 12/02/20 15:05 Docusate Sodium (Colace) 100 mg BID PO 12/02/20 21:00 12/07/20 09:50 Emollient Cream (Vanicream) bilat LE (avoid o... BID TOP 12/02/20 21:00 12/03/20 11:46 DC 12/02/20 21:10 Fluticasone Propionate (Flonase 0.05% Nasal Delta) 1 spray BID NARES 12/03/20 09:00 12/07/20 10:02 Glucagon (Glucagon) 1 mg ASDIRECTED PRN SC SEE LABEL COMMENTS 12/02/20 15:05 Glucose (Glucose) 16 GM ASDIRECTED PRN PO SEE LABEL COMMENTS 12/02/20 15:05 Heparin Sodium (Heparin) Please refer to ... ASDIRECTED XX 12/05/20 06:00 12/06/20 05:59 DC Heparin Sodium (Heparin) Please refer to ... ASDIRECTED XX 12/07/20 06:00 12/08/20 05:59 Heparin Sodium (Heparin) dose as per volume indica... ASDIRECTED PRN IV SEE LABEL COMMENTS 12/05/20 06:00 12/05/20 19:24 DC Heparin Sodium (Heparin) dose as per volume indica... ASDIRECTED PRN IV SEE LABEL COMMENTS 12/07/20 06:00 12/07/20 17:54 Hydromorphone HCl (Dilaudid) 2 mg Q4H PRN PO PAIN LEVEL 7-10 12/02/20 20:30 12/06/20 16:24 Insulin Detemir (Levemir Insulin) 15 units BID SC 12/02/20 21:00 12/07/20 09:51 Insulin Human Lispro (HumaLOG INSULIN) SEE PROTOCOL TABLE AC SC 12/02/20 17:30 12/07/20 12:55 Insulin Human Lispro (HumaLOG INSULIN) SEE PROTOCOL TABLE QHS SC 12/02/20 21:00 Iron (Venofer) 100 mg HD IV 12/03/20 15:05 12/07/20 13:30 Lactobacillus Acidophilus (Bacid) 1 ea WMHS PO 12/03/20 12:30 12/07/20 12:55 Lidocaine/ Diphenhydr/Alum/ Mg/Simeth (Magic Mouthwash) 5ML AC SSP 12/02/20 17:30 12/07/20 10:00 Magnesium Sulfate (Epsom Salt) soak bilateral feet ... DAILY@1700 TOP 12/03/20 17:00 12/07/20 09:21 DC 12/06/20 16:22 Metoprolol Tartrate (Lopressor) 50 mg BID PO 12/02/20 21:00 12/07/20 09:53 Nortriptyline HCl (Pamelor) 10 mg QHS PO 12/03/20 21:00 12/06/20 08:55 DC 12/05/20 21:18 Nortriptyline HCl (Pamelor) 20 mg QHS PO 12/07/20 21:00 Oxycodone HCl (Roxicodone, Oxyir) 5 mg Q4HP PRN PO MODERATE PAIN (PS 5-7) 12/02/20 19:20 Cancel Pantoprazole Sodium (Protonix) 40 mg DAILY PO 12/03/20 09:00 12/07/20 09:50 Pregabalin (Lyrica) 25 mg BID PO 12/02/20 21:00 12/07/20 09:50 Senna (Senokot) 1 tab QHS PO 12/02/20 21:00 12/06/20 21:59 Sodium Chloride (Garza Nasal Delta) 1 spray TID NA 12/03/20 09:00 12/07/20 10:02 Tramadol HCl (Ultram) 75 mg Q4HP PRN PO MODERATE PAIN (PS 5-7) 12/02/20 15:05 Cancel Warfarin Sodium (Coumadin) 2.5 mg Th@1700 PO 12/08/20 17:00 12/05/20 10:31 DC Warfarin Sodium (Coumadin) 4 mg SuMoTuWeFrSa@1700 PO 12/03/20 17:00 12/05/20 10:31 DC 12/04/20 18:28 Warfarin Sodium (Coumadin) 5 mg DAILY@17 PO 12/05/20 17:00 12/06/20 08:55 DC 12/05/20 17:07 Warfarin Sodium (Coumadin) 6 mg DAILY@17 PO 12/06/20 17:00 12/06/20 16:21 CACHORRO MEDEL MD Dec 07, 2020 14:06
--- NOTE | 2020-12-07 14:06 | IPNPDOC ---
PM&R Progress Note DATE OF SERVICE: Dec 06, 2020 [employer] Progress Note Subjective: Patient seen in his room stating his pain is better in his feet and he is agreeable to staying until next Saturday. He says he is tolerating dialysis. REVIEW OF SYSTEMS: The following is a completed review of systems and has been reviewed. Review of systems otherwise unremarkable. PAIN: Patient self reports bilat LE pain EYES: No recent vision changes EARS, NOSE, & THROAT: +dysphagia CARDIOVASCULAR: Denies chest pain or palpitations PULMONARY: Denies shortness of breath GASTROINTESTINAL: Denies constipation/diarrhea GENITOURINARY: denies dysuria MUSCULOSKELETAL: generalized weakness NEUROLOGICAL: +recent stroke HEMATOLOGICAL: +anemia SKIN: bilat LE wounds PSYCHIATRIC: Unremarkable All other review of systems found to be negative. PHYSICAL EXAMINATION: VITAL SIGNS: Please see below. GENERAL: Pleasant and cooperative. No acute distress. HEENT: PERRL. Extraocular movements intact. Clear conjunctiva CARDIOVASCULAR: Regular rate and rhythm. No murmurs, rubs, or gallops LUNGS: Clear to auscultation bilaterally. No wheezes. No rhonchi ABDOMEN: Soft, nontender, nondistended. Positive bowel sounds. Normal active bowel sounds NEUROLOGICAL: Alert and oriented times three. Cranial nerves II through XII grossly intact. Sensation diminished to light touch in LE stocking pattern EXTREMITIES: 5\\5 strength bilateral upper extremities. bilat hip flexors and knee extension 4/5, ankle DF/PF difficult to assess given swelling and copious wounds SKIN: right chest wall permacath in place wounds not examined today ASSESSMENT:75-year-old M with complex PMH who presents status post right parietal infarct and recent transition to ESRD with dialysys PLAN: 1. 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 Neuro- s/p right parietal lacunar infarct with weakness and mobility impairments, cont aspirin and coumadin for secondary stroke prevention 3. [facility]- patient with severe LE arterial stenosis with wounds, f/u Dr. Mcclure for wound care, Dr. Burton for possible further angioplasty cont ASA as per vascular surgeon recs 4. CArdiac- hx of chronic CHF with recent ECHO significant for grade 2 diastolic dysfunction- will avoid fluid restriction due to dysphagia diet, fluid management per renal with dialysis -Afib and TAVR on couamdin, metoprolol 5. Resp- monitor fo infection 6. Endo- hx of DM with peripheral vascular complications- cont Levemir and ISS, adjust prn 7. GI ppx- protonix 8. DVT ppx- on coumadin 10. Psych- depression cross-tapering with Pamelor to better treat neuropathic pain 11. Pain- Lyrica 25mg BID, dilaudid 2mg q4h prn, will complete cross taper pamelor for neuropathic pain and d/c celexa as nerve pain is improving on this regimen 12. Renal- ESRD on HD, renal consulted 13. heme- anemia of chronic disease, renal following 14. Skin- LE wounds improving, please see dressing change ordered, received Cefazolin on inpatient 11/29-12/02, cont Cefazolin, Dr. Mart patten appreciated -cont bacid, monitor CRP/ESR 15. Dispo- 12-13-20 to home, progressing towards goals Allergies Coded Allergies: [place] (Verified Allergy, Severe, ANAPHYLAXIS, 11/09/14) Penicillins (Verified Allergy, Severe, Anaphylaxis, 02/17/20) HAS RECEIVED 2nd & 3RD GEN CEPHALOSPORINS w/o PROBLEM metformin (Verified Allergy, Severe, Tongue swelling, 07/02/18) Vnsohfi-Eik-Nrn Reductase Inhibitor (Verified Adverse Reaction, Intermediate, Altered Mental Status, 07/02/18) codeine (Verified Adverse Reaction, Mild, "out of it". , 02/17/20) mixed with guifenasin duloxetine (Unverified Adverse Reaction, Mild, Nausea and vomiting, 07/02/18) clindamycin (Verified Adverse Reaction, Unknown, DIARRHEA, 02/29/20) Vital Signs Vital Signs Date Time Temp Pulse Resp B/P (MAP) Pulse Ox O2 Delivery O2 Flow Rate FiO2 12/07/20 09:53 71 132/68 12/07/20 06:22 98.2 18 96 Room Air Laboratory Data CBC/BMP Laboratory Tests 12/07/20 05:50 12/07/20 08:27 Labs 24H Laboratory Tests 2 12/06/20 17:38: Bedside Glucose (Misc Panel) 153H 12/06/20 19:58: Bedside Glucose (Misc Panel) 191H 12/07/20 04:58: Bedside Glucose (Misc Panel) 146H 12/07/20 05:50: Anion Gap 9, Glomerular Filtration Rate 17.6L, Calcium Level 7.5L, Total Bilirubin 0.6, Aspartate Amino Transf (AST/SGOT) 11, Alanine Aminotransferase (ALT/SGPT) 9L, Alkaline Phosphatase 110, Total Protein 6.6, Albumin 2.2L, Albumin/Globulin Ratio 0.5 12/07/20 05:51: Prothrombin Time 22.9H, Prothromb Time International Ratio 1.98 12/07/20 08:27: Immature Granulocyte % (Auto) 0.9, Neutrophils (%) (Auto) 68.3H, Lymphocytes (%) (Auto) 11.2L, Monocytes (%) (Auto) 11.8H, Eosinophils (%) (Auto) 7.2H, Basophils (%) (Auto) 0.6, Neutrophils # (Auto) 5.6, Lymphocytes # (Auto) 0.9L, Monocytes # (Auto) 1.0H, Eosinophils # (Auto) 0.6H, Basophils # (Auto) 0.1, Nucleated Red Blood Cells % (auto) 0.0 12/07/20 11:52: Bedside Glucose (Misc Panel) 197H Current Medications Current Medications Current Medications Medications (Trade) Dose Ordered Sig/Jackelin Route PRN Reason Start Time Stop Time Status Last Admin Dose Admin Acetaminophen (Tylenol Tab) 1,000 mg TID PO 12/02/20 21:00 12/07/20 09:52 Aspirin (Ecotrin) 81 mg DAILY PO 12/03/20 09:00 12/07/20 09:50 Bisacodyl (Dulcolax Suppository) 10 mg DAILYPRN PRN [place] CONSTIPATION 12/02/20 15:05 Cefazolin Sodium 1 gm/Dextrose 50 ml @ 100 mls/hr Q24H IV 12/04/20 16:00 12/06/20 16:21 Citalopram Hydrobromide (CeleXA) 10 mg DAILY PO 12/03/20 09:00 12/06/20 08:55 DC 12/05/20 08:43 Collagenase (SantyL) per nursing wound c... DAILY TOP 12/03/20 09:00 12/07/20 13:39 Darbepoetin Jos (Aranesp (Dialysis Use)) 100 mcg HD IV 12/03/20 15:05 Dextrose (Dextrose 50%) 25 ml ASDIRECTED PRN IV SEE LABEL COMMENTS 12/02/20 15:05 Docusate Sodium (Colace) 100 mg BID PO 12/02/20 21:00 12/07/20 09:50 Emollient Cream (Vanicream) bilat LE (avoid o... BID TOP 12/02/20 21:00 12/03/20 11:46 DC 12/02/20 21:10 Fluticasone Propionate (Flonase 0.05% Nasal Miles) 1 spray BID NARES 12/03/20 09:00 12/07/20 10:02 Glucagon (Glucagon) 1 mg ASDIRECTED PRN SC SEE LABEL COMMENTS 12/02/20 15:05 Glucose (Glucose) 16 GM ASDIRECTED PRN PO SEE LABEL COMMENTS 12/02/20 15:05 Heparin Sodium (Heparin) Please refer to ... ASDIRECTED XX 12/05/20 06:00 12/06/20 05:59 DC Heparin Sodium (Heparin) Please refer to ... ASDIRECTED XX 12/07/20 06:00 12/08/20 05:59 Heparin Sodium (Heparin) dose as per volume indica... ASDIRECTED PRN IV SEE LABEL COMMENTS 12/05/20 06:00 12/05/20 19:24 DC Heparin Sodium (Heparin) dose as per volume indica... ASDIRECTED PRN IV SEE LABEL COMMENTS 12/07/20 06:00 12/07/20 17:54 Hydromorphone HCl (Dilaudid) 2 mg Q4H PRN PO PAIN LEVEL 7-10 12/02/20 20:30 12/06/20 16:24 Insulin Detemir (Levemir Insulin) 15 units BID SC 12/02/20 21:00 12/07/20 09:51 Insulin Human Lispro (HumaLOG INSULIN) SEE PROTOCOL TABLE AC SC 12/02/20 17:30 12/07/20 12:55 Insulin Human Lispro (HumaLOG INSULIN) SEE PROTOCOL TABLE QHS SC 12/02/20 21:00 Iron (Venofer) 100 mg HD IV 12/03/20 15:05 12/07/20 13:30 Lactobacillus Acidophilus (Bacid) 1 ea WMHS PO 12/03/20 12:30 12/07/20 12:55 Lidocaine/ Diphenhydr/Alum/ Mg/Simeth (Magic Mouthwash) 5ML AC SSP 12/02/20 17:30 12/07/20 10:00 Magnesium Sulfate (Epsom Salt) soak bilateral feet ... DAILY@1700 TOP 12/03/20 17:00 12/07/20 09:21 DC 12/06/20 16:22 Metoprolol Tartrate (Lopressor) 50 mg BID PO 12/02/20 21:00 12/07/20 09:53 Nortriptyline HCl (Pamelor) 10 mg QHS PO 12/03/20 21:00 12/06/20 08:55 DC 12/05/20 21:18 Nortriptyline HCl (Pamelor) 20 mg QHS PO 12/07/20 21:00 Oxycodone HCl (Roxicodone, Oxyir) 5 mg Q4HP PRN PO MODERATE PAIN (PS 5-7) 12/02/20 19:20 Cancel Pantoprazole Sodium (Protonix) 40 mg DAILY PO 12/03/20 09:00 12/07/20 09:50 Pregabalin (Lyrica) 25 mg BID PO 12/02/20 21:00 12/07/20 09:50 Senna (Senokot) 1 tab QHS PO 12/02/20 21:00 12/06/20 21:59 Sodium Chloride ([place] Nasal Miles) 1 spray TID NA 12/03/20 09:00 12/07/20 10:02 Tramadol HCl (Ultram) 75 mg Q4HP PRN PO MODERATE PAIN (PS 5-7) 12/02/20 15:05 Cancel Warfarin Sodium (Coumadin) 2.5 mg Th@1700 PO 12/08/20 17:00 12/05/20 10:31 DC Warfarin Sodium (Coumadin) 4 mg SuMoTuWeFrSa@1700 PO 12/03/20 17:00 12/05/20 10:31 DC 12/04/20 18:28 Warfarin Sodium (Coumadin) 5 mg DAILY@17 PO 12/05/20 17:00 12/06/20 08:55 DC 12/05/20 17:07 Warfarin Sodium (Coumadin) 6 mg DAILY@17 PO 12/06/20 17:00 12/06/20 16:21 CACHORRO MEDEL MD Dec 07, 2020 14:06
--- NOTE | 2020-12-07 16:50 | IPNPDOC ---
Text Note Date of Service The patient was seen on 12/07/20. NOTE SUBJECTIVE: Mr. Hernandez was sitting by his bedside this morning. His had come to visit him. However he was then moderate distress because of the pain of his ischemic ulcers bilateral feet. He states the pain started when the dressing came off his feet after walking with physical therapy this morning. OBJECTIVE: PHYSICAL EXAMINATION: GENERAL: Patient is awake, alert, oriented times three. HEAD AND NECK EXAM: Extraocular muscles intact. Pupils equally round and reactive to light. Mucous membranes are moist. Neck is supple. He has a tunneled hemodialysis catheter. CARDIOVASCULAR: S1, S2. Regular rate. Trace edema of the bilateral lower extremities. RESPIRATORY: Chest is clear to auscultation bilaterally. Bilateral equal air entry. No rales or rhonchi. ABDOMEN: Soft. Positive bowel sounds. Nontender. No organomegaly MUSCULOSKELETAL: Patient has dressings on the bilateral feet because of ulcers. CENTRAL NERVOUS SYSTEM (COMPOUND FINISHER): No focal deficit. Power is 5/5 in all extremities. ASSESSMENT AND PLAN: 1. End-stage renal disease. Patient is due for dialysis this afternoon. Patient's renal function is stable with normal electrolytes. Patient's labs were ordered this morning. 2. Anemia in end-stage renal disease. Continue Venofer and Aranesp. 3. Diastolic congestive heart failure. Volume status is optimal. Currently, he is not on any diuretics. Continue current dose of metoprolol. 4. Peripheral vascular disease and ulcers of lower extremities. Patient is on cefazolin. The rest of the management is as per interventional radiology. Patient was complaining of pain in his ischemic ulcers this morning. Patient was given appropriate pain medication for that. VS,Fishbone, I+O VS, Fishbone, I+O Laboratory Tests 12/07/20 05:50 12/07/20 08:27 Vital Signs Date Time Temp Pulse Resp B/P (MAP) Pulse Ox O2 Delivery O2 Flow Rate FiO2 12/07/20 09:53 71 132/68 12/07/20 06:22 98.2 18 96 Room Air I&O- Last 24 Hours up to 6 AM 12/07/20 06:00 Intake Total 750 ml Balance 750 ml Breezy Sterling MD Dec 07, 2020 16:50
[2020-12-07] MEDS: WARFARIN SOD 3MG TAB PO SCH (17:17)
[2020-12-07] MEDS: ceFAZolin SOD 1 GM in D5W MINI-BAG PLUS 50 ML IV SCH (17:18)
[2020-12-07 20:00] VITALS: BP 156/72
[2020-12-07] MEDS: SENNA 8.6 MG TAB (SENOKOT) PO SCH (20:17)
[2020-12-07] MEDS: HYDROmorphone 2 MG TAB PO PRN (20:19)
[2020-12-07] MEDS: NORTRIPTYLINE 10 MG CAP PO SCH (20:19)
[2020-12-08] MEDS: HYDROmorphone 2 MG TAB PO PRN ×2 (00:27→16:04)
[2020-12-08 05:24] VITALS: BP 131/68
[2020-12-08 06:00] VITALS: BP 131/68
[2020-12-08] MEDS: HumaLOG INSULIN (NovoLOG) PER UNIT SC SCH ×4 (07:30→20:39)
[2020-12-08] MEDS: MAGIC MOUTHWASH SUSPENSION BTL SSP SCH ×3 (07:30→17:30)
[2020-12-08] MEDS: LEVEMIR (INSULIN DETEMIR) 1 UNITS/0.01ML SC SCH ×2 (09:00→20:38)
[2020-12-08] MEDS: FLUTICASONE PROP 0.05% NASAL SPRAY 16 GM (FLONASE) NARES SCH ×2 (09:00→20:39)
[2020-12-08] MEDS: REMEDY PHYTOPLEX Z-GUARD PASTE 113GM TUBE (FROM STOREROOM PRODUCT) TOP SCH ×3 (09:00→20:39)
[2020-12-08] MEDS: SODIUM CHLORIDE NASAL 0.65% SPRAY BTL (OCEAN) SCH ×3 (09:00→20:39)
[2020-12-08] MEDS: PREGABALIN 25 MG CAP (LYRICA) PO SCH ×2 (10:21→20:37)
[2020-12-08] MEDS: ASPIRIN 81MG ENTERIC TABLET PO SCH (10:21)
[2020-12-08] MEDS: PANTOPRAZOLE 40MG TAB (PROTONIX) PO SCH (10:21)
[2020-12-08] MEDS: DOCUSATE SODIUM 100MG CAPSULE PO SCH ×2 (10:21→20:37)
[2020-12-08] MEDS: LACTOBACILLUS ACIDOPHILUS CAP (BACID) PO SCH ×4 (10:21→20:37)
[2020-12-08] MEDS: METOPROLOL TART 50 MG TAB PO SCH ×2 (10:21→20:38)
[2020-12-08] MEDS: ACETAMINOPHEN 500 MG TAB PO SCH ×3 (10:22→20:38)
[2020-12-08 11:18] LABS: INR 2.2; PROTHROMBIN TIME 24.8 SECONDS (12.7-14.5)
--- NOTE | 2020-12-08 13:11 | IPNPDOC ---
PM&R Progress Note DATE OF SERVICE: Dec 08, 2020 Cartographic Aide Progress Note Subjective: REVIEW OF SYSTEMS: The following is a completed review of systems and has been reviewed. Review of systems otherwise unremarkable. PAIN: Patient self reports bilat LE pain EYES: No recent vision changes EARS, NOSE, & THROAT: +dysphagia CARDIOVASCULAR: Denies chest pain or palpitations PULMONARY: Denies shortness of breath GASTROINTESTINAL: Denies constipation/diarrhea GENITOURINARY: denies dysuria MUSCULOSKELETAL: generalized weakness NEUROLOGICAL: +recent stroke HEMATOLOGICAL: +anemia SKIN: bilat LE wounds PSYCHIATRIC: Unremarkable All other review of systems found to be negative. PHYSICAL EXAMINATION: VITAL SIGNS: Please see below. GENERAL: Pleasant and cooperative. No acute distress. HEENT: PERRL. Extraocular movements intact. Clear conjunctiva CARDIOVASCULAR: Regular rate and rhythm. No murmurs, rubs, or gallops LUNGS: Clear to auscultation bilaterally. No wheezes. No rhonchi ABDOMEN: Soft, nontender, nondistended. Positive bowel sounds. Normal active bowel sounds NEUROLOGICAL: Alert and oriented times three. Cranial nerves II through XII grossly intact. Sensation diminished to light touch in LE stocking pattern EXTREMITIES: 5\\5 strength bilateral upper extremities. bilat hip flexors and knee extension 4/5, ankle DF/PF difficult to assess given swelling and copious wounds SKIN: right chest wall permacath in place right medial calf ulcer (scant exudate), right D1 toe ulcer left calf scattered ulcers (dry), left foot and toe region with (scant) macerated tissue, ulcers on toes with scant exudate ASSESSMENT:75-year-old M with complex PMH who presents status post right parietal infarct and recent transition to ESRD with dialysys PLAN: 1. 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 Neuro- s/p right parietal lacunar infarct with weakness and mobility impairments, cont aspirin and coumadin for secondary stroke prevention 3. VAsc- patient with severe LE arterial stenosis with wounds, f/u Dr. Mcclure for wound care, Dr. Burton for possible further angioplasty cont ASA as per vascular surgeon recs -made appointment with Dr. Tafoya 12-13-20, called who is aware and will bring patient to this appointment right after discharge from ARU 4. CArdiac- hx of chronic CHF with recent ECHO significant for grade 2 diastolic dysfunction- will avoid fluid restriction due to dysphagia diet, fluid management per renal with dialysis -Afib and TAVR on couamdin, metoprolol 5. Resp- monitor fo infection 6. Endo- hx of DM with peripheral vascular complications- cont Levemir and ISS, adjust prn 7. GI ppx- protonix 8. DVT ppx- on coumadin 10. Psych- depression cross-tapering with Pamelor to better treat neuropathic pain 11. Pain- Lyrica 25mg BID, dilaudid 2mg q4h prn, will complete cross taper pamelor for neuropathic pain and d/c celexa as nerve pain is improving on this regimen 12. Renal- ESRD on HD, renal consulted 13. heme- anemia of chronic disease, renal following 14. Skin- LE wounds cont to improve, dressing change orders updated, spoke with Dr. Mcclure about wound care at length and he is ok with use of hydrofera and skin prep to debride tissue and protect kevin-wound skin respectively, Dr. Mcclure does not typically advise soaking feet due to concern for maceration, I will stop epsom salt baths although I think it has been helpful to date and that because the soaking has been followed directly by dressing changes, his feet have not become more macerate, but instead less, overall patients feet are improving since admission to ARU with daily dressing changes, I spoke with at length today over the phone about her concerns regarding his wounds and then asked her to come in to review the dressing changes and show her how skin prep can be very helpful to prevent maceration of periwound region and the importance of keeping the area between the toes dry, patient continues to say he thinks his feet look better than they did on admission to ARU -cont Cefazolin, Dr. Mart patten appreciated -cont bacid, monitor CRP/ESR -patient will need to follow-up with Dr. Tafoya who is not in-house at this time 15. Dispo- 12-13-20 to home, progressing towards goals Allergies Coded Allergies: [place] (Verified Allergy, Severe, ANAPHYLAXIS, 11/09/14) Penicillins (Verified Allergy, Severe, Anaphylaxis, 02/17/20) HAS RECEIVED 2nd & 3RD GEN CEPHALOSPORINS w/o PROBLEM metformin (Verified Allergy, Severe, Tongue swelling, 07/02/18) [place]-Tby Reductase Inhibitor (Verified Adverse Reaction, Intermediate, Altered Mental Status, 07/02/18) codeine (Verified Adverse Reaction, Mild, "out of it". , 02/17/20) mixed with guifenasin duloxetine (Unverified Adverse Reaction, Mild, Nausea and vomiting, 07/02/18) clindamycin (Verified Adverse Reaction, Unknown, DIARRHEA, 02/29/20) Vital Signs Vital Signs Date Time Temp Pulse Resp B/P (MAP) Pulse Ox O2 Delivery O2 Flow Rate FiO2 12/08/20 10:21 71 133/63 12/08/20 06:00 98.3 18 97 Room Air Laboratory Data Labs 24H Laboratory Tests 2 12/07/20 18:01: Bedside Glucose (Misc Panel) 99 12/07/20 19:55: Bedside Glucose (Misc Panel) 117H 12/08/20 05:17: Bedside Glucose (Misc Panel) 100 12/08/20 10:27: Prothrombin Time 24.8H, Prothromb Time International Ratio 2.20 12/08/20 11:26: Bedside Glucose (Misc Panel) 215H Current Medications Current Medications Current Medications Medications (Trade) Dose Ordered Sig/Jackelin Route PRN Reason Start Time Stop Time Status Last Admin Dose Admin Acetaminophen (Tylenol Tab) 1,000 mg TID PO 12/02/20 21:00 12/08/20 10:22 Aspirin (Ecotrin) 81 mg DAILY PO 12/03/20 09:00 12/08/20 10:21 Bisacodyl (Dulcolax Suppository) 10 mg DAILYPRN PRN IN CONSTIPATION 12/02/20 15:05 Cefazolin Sodium 1 gm/Dextrose 50 ml @ 100 mls/hr Q24H IV 12/04/20 16:00 12/10/20 16:29 12/07/20 17:18 Citalopram Hydrobromide (CeleXA) 10 mg DAILY PO 12/03/20 09:00 12/06/20 08:55 DC 12/05/20 08:43 Collagenase (SantyL) per nursing wound c... DAILY TOP 12/03/20 09:00 12/07/20 15:14 DC 12/07/20 13:39 Darbepoetin Jos (Aranesp (Dialysis Use)) 100 mcg HD IV 12/03/20 15:05 12/07/20 15:07 Dextrose (Dextrose 50%) 25 ml ASDIRECTED PRN IV SEE LABEL COMMENTS 12/02/20 15:05 Docusate Sodium (Colace) 100 mg BID PO 12/02/20 21:00 12/08/20 10:21 Emollient Cream (Vanicream) bilat LE (avoid o... BID TOP 12/02/20 21:00 12/03/20 11:46 DC 12/02/20 21:10 Fluticasone Propionate (Flonase 0.05% Nasal [place]) 1 spray BID NARES 12/03/20 09:00 12/07/20 10:02 Glucagon (Glucagon) 1 mg ASDIRECTED PRN SC SEE LABEL COMMENTS 12/02/20 15:05 Glucose (Glucose) 16 GM ASDIRECTED PRN PO SEE LABEL COMMENTS 12/02/20 15:05 Heparin Sodium (Heparin) Please refer to ... ASDIRECTED XX 12/05/20 06:00 12/06/20 05:59 DC Heparin Sodium (Heparin) Please refer to ... ASDIRECTED XX 12/07/20 06:00 12/08/20 05:59 DC Heparin Sodium (Heparin) Please refer to ... ASDIRECTED XX 12/09/20 06:00 12/10/20 05:59 Heparin Sodium (Heparin) dose as per volume indica... ASDIRECTED PRN IV SEE LABEL COMMENTS 12/05/20 06:00 12/05/20 19:24 DC Heparin Sodium (Heparin) dose as per volume indica... ASDIRECTED PRN IV SEE LABEL COMMENTS 12/07/20 06:00 12/07/20 17:54 DC Heparin Sodium (Heparin) dose as per volume indica... ASDIRECTED PRN IV SEE LABEL COMMENTS 12/09/20 06:00 12/09/20 10:59 Hydromorphone HCl (Dilaudid) 2 mg Q4H PRN PO PAIN LEVEL 7-10 12/02/20 20:30 12/08/20 00:27 Insulin Detemir (Levemir Insulin) 15 units BID SC 12/02/20 21:00 12/07/20 20:21 Insulin Human Lispro (HumaLOG INSULIN) SEE PROTOCOL TABLE AC SC 12/02/20 17:30 12/08/20 12:23 Insulin Human Lispro (HumaLOG INSULIN) SEE PROTOCOL TABLE QHS SC 12/02/20 21:00 Iron (Venofer) 100 mg HD IV 12/03/20 15:05 12/07/20 13:30 Lactobacillus Acidophilus (Bacid) 1 ea WMHS PO 12/03/20 12:30 12/08/20 12:22 Lidocaine/ Diphenhydr/Alum/ Mg/Simeth (Magic Mouthwash) 5ML AC SSP 12/02/20 17:30 12/07/20 10:00 Magnesium Sulfate (Epsom Salt) soak bilateral feet ... DAILY@1700 TOP 12/03/20 17:00 12/07/20 09:21 DC 12/06/20 16:22 Metoprolol Tartrate (Lopressor) 50 mg BID PO 12/02/20 21:00 12/08/20 10:21 Nortriptyline HCl (Pamelor) 10 mg QHS PO 12/03/20 21:00 12/06/20 08:55 DC 12/05/20 21:18 Nortriptyline HCl (Pamelor) 20 mg QHS PO 12/07/20 21:00 12/07/20 20:19 Oxycodone HCl (Roxicodone, Oxyir) 5 mg Q4HP PRN PO MODERATE PAIN (PS 5-7) 12/02/20 19:20 Cancel Pantoprazole Sodium (Protonix) 40 mg DAILY PO 12/03/20 09:00 12/08/20 10:21 Pregabalin (Lyrica) 25 mg BID PO 12/02/20 21:00 12/08/20 10:21 Senna (Senokot) 1 tab QHS PO 12/02/20 21:00 12/07/20 20:17 Sodium Chloride ([place] Nasal [place]) 1 spray TID NA 12/03/20 09:00 12/07/20 10:02 Tramadol HCl (Ultram) 75 mg Q4HP PRN PO MODERATE PAIN (PS 5-7) 12/02/20 15:05 Cancel Warfarin Sodium (Coumadin) 2.5 mg Th@1700 PO 12/08/20 17:00 12/05/20 10:31 DC Warfarin Sodium (Coumadin) 4 mg SuMoTuWeFrSa@1700 PO 12/03/20 17:00 12/05/20 10:31 DC 12/04/20 18:28 Warfarin Sodium (Coumadin) 5 mg DAILY@17 PO 12/05/20 17:00 12/06/20 08:55 DC 12/05/20 17:07 Warfarin Sodium (Coumadin) 6 mg DAILY@17 PO 12/06/20 17:00 12/07/20 17:17 CACHORRO MEDEL MD Dec 08, 2020 13:11
[2020-12-08 13:22] VITALS: BP 126/58
[2020-12-08] MEDS: ceFAZolin SOD 1 GM in D5W MINI-BAG PLUS 50 ML IV SCH (16:03)
[2020-12-08] MEDS ORDERED: WARFARIN SOD 2.5MG TAB PO SCH (17:00)
[2020-12-08] MEDS: WARFARIN SOD 3MG TAB PO SCH (18:36)
[2020-12-08 20:00] VITALS: BP 131/64
[2020-12-08] MEDS: NORTRIPTYLINE 10 MG CAP PO SCH (20:37)
[2020-12-08] MEDS: SENNA 8.6 MG TAB (SENOKOT) PO SCH (20:37)
[2020-12-09 06:00] VITALS: BP 132/70
[2020-12-09] MEDS: MAGIC MOUTHWASH SUSPENSION BTL SSP SCH ×3 (07:30→17:01)
[2020-12-09] MEDS: ASPIRIN 81MG ENTERIC TABLET PO SCH (08:36)
[2020-12-09] MEDS: HYDROmorphone 2 MG TAB PO PRN ×2 (08:37→16:12)
[2020-12-09] MEDS: METOPROLOL TART 50 MG TAB PO SCH ×2 (08:37→20:34)
[2020-12-09] MEDS: PREGABALIN 25 MG CAP (LYRICA) PO SCH ×2 (08:37→20:31)
[2020-12-09] MEDS: DOCUSATE SODIUM 100MG CAPSULE PO SCH ×2 (08:37→20:31)
[2020-12-09] MEDS: PANTOPRAZOLE 40MG TAB (PROTONIX) PO SCH (08:37)
[2020-12-09] MEDS: LEVEMIR (INSULIN DETEMIR) 1 UNITS/0.01ML SC SCH ×2 (08:38→20:33)
[2020-12-09] MEDS: ACETAMINOPHEN 500 MG TAB PO SCH ×3 (08:38→20:32)
[2020-12-09] MEDS: LACTOBACILLUS ACIDOPHILUS CAP (BACID) PO SCH ×4 (08:38→20:31)
[2020-12-09] MEDS: HumaLOG INSULIN (NovoLOG) PER UNIT SC SCH ×4 (08:39→20:32)
[2020-12-09] MEDS: REMEDY PHYTOPLEX Z-GUARD PASTE 113GM TUBE (FROM STOREROOM PRODUCT) TOP SCH ×3 (09:00→20:34)
[2020-12-09] MEDS: FLUTICASONE PROP 0.05% NASAL SPRAY 16 GM (FLONASE) NARES SCH ×2 (09:00→20:33)
[2020-12-09] MEDS: SODIUM CHLORIDE NASAL 0.65% SPRAY BTL (OCEAN) SCH ×3 (09:00→20:33)
--- NOTE | 2020-12-09 10:22 | IPNPDOC ---
PM&R Progress Note Nuclear Physicist Progress Note DATE OF ADMISSION: Dec 02, 2020 at 17:30 INPATIENT REHABILITATION ADMISSION DAY: # SUBJECTIVE: Patient is a -year-old with . ALLERGIES: See Below MEDICATIONS: Reviewed, see below. OBJECTIVE: VITAL SIGNS: Please see below. PHYSICAL EXAMINATION: GENERAL: [Cachectic, well developed, sitting up in bed, no acute distress]. HEENT: [Normocephalic, atraumatic]. [No facial droop]. [Poor dentition, missing teeth. PERRL, EOMI]. CARDIOVASCULAR: [S1, S2, irregular rate]. [No lower limb edema or calf tenderness]. LUNGS: [Decreased breath sounds, coarse throughout]. ABDOMEN: [Soft, nontender, nondistended. Normoactive bowel sounds throughout]. MUSCULOSKELETAL: MMT: /5 strength proximally bilateral shoulder abduction, forward flexion and bilateral hip flexion. /5 strength bilateral elbow flexion, knee flexion, /5 bilateral elbow extension and knee extension. /5 bone drier operator, dorsiflexion, plantar flexion. NEUROLOGICAL: [Alert and oriented times three]. [Answers all question appropriately]. SKIN: . LABORATORY DATA: Reviewed. Please see below. MICROBIOLOGY: Please see below. IMAGING: ASSESSMENT AND PLAN: 1. . 2. . 3. . TIME SPENT: Chart Review, examination and documentation minutes. Allergies Coded Allergies: [place] (Verified Allergy, Severe, ANAPHYLAXIS, 11/09/14) Penicillins (Verified Allergy, Severe, Anaphylaxis, 02/17/20) HAS RECEIVED 2nd & 3RD GEN CEPHALOSPORINS w/o PROBLEM metformin (Verified Allergy, Severe, Tongue swelling, 07/02/18) Nexhrrh-Cih-Cct Reductase Inhibitor (Verified Adverse Reaction, Inte rmediate, Altered Mental Status, 07/02/18) codeine (Verified Adverse Reaction, Mild, "out of it". , 02/17/20) mixed with guifenasin duloxetine (Unverified Adverse Reaction, Mild, Nausea and vomiting, 07/02/18) clindamycin (Verified Adverse Reaction, Unknown, DIARRHEA, 02/29/20) Vital Signs Vital Signs Date Time Temp Pulse Resp B/P (MAP) Pulse Ox O2 Delivery O2 Flow Rate FiO2 12/09/20 08:37 16 12/09/20 08:37 78 128/62 12/09/20 06:00 98.0 93 Room Air Laboratory Data Labs 24H Laboratory Tests 2 12/08/20 10:27: Prothrombin Time 24.8H, Prothromb Time International Ratio 2.20 12/08/20 11:26: Bedside Glucose (Misc Panel) 215H 12/08/20 16:51: Bedside Glucose (Misc Panel) 145H 12/08/20 19:55: Bedside Glucose (Misc Panel) 208H 12/09/20 06:18: Bedside Glucose (Misc Panel) 152H Current Medications Current Medications Current Medications Medications (Trade) Dose Ordered Sig/Jackelin Route PRN Reason Start Time Stop Time Status Last Admin Dose Admin Acetaminophen (Tylenol Tab) 1,000 mg TID PO 12/02/20 21:00 12/09/20 08:38 Aspirin (Ecotrin) 81 mg DAILY PO 12/03/20 09:00 12/09/20 08:36 Bisacodyl (Dulcolax Suppository) 10 mg DAILYPRN PRN [place] CONSTIPATION 12/02/20 15:05 Cefazolin Sodium 1 gm/Dextrose 50 ml @ 100 mls/hr Q24H IV 12/04/20 16:00 12/10/20 16:29 12/08/20 16:03 Citalopram Hydrobromide (CeleXA) 10 mg DAILY PO 12/03/20 09:00 12/06/20 08:55 DC 12/05/20 08:43 Collagenase (SantyL) per nursing wound c... DAILY TOP 12/03/20 09:00 12/07/20 15:14 DC 12/07/20 13:39 Darbepoetin Jos (Aranesp (Dialysis Use)) 100 mcg HD IV 12/03/20 15:05 12/07/20 15:07 Dextrose (Dextrose 50%) 25 ml ASDIRECTED PRN IV SEE LABEL COMMENTS 12/02/20 15:05 Docusate Sodium (Colace) 100 mg BID PO 12/02/20 21:00 12/09/20 08:37 Emollient Cream (Vanicream) 1 dose DAILY TOP 12/09/20 09:00 Emollient Cream (Vanicream) bilat LE (avoid o... BID TOP 12/02/20 21:00 12/03/20 11:46 DC 12/02/20 21:10 Fluticasone Propionate (Flonase 0.05% Nasal [place]) 1 spray BID NARES 12/03/20 09:00 12/07/20 10:02 Glucagon (Glucagon) 1 mg ASDIRECTED PRN SC SEE LABEL COMMENTS 12/02/20 15:05 Glucose (Glucose) 16 GM ASDIRECTED PRN PO SEE LABEL COMMENTS 12/02/20 15:05 Heparin Sodium (Heparin) Please refer to ... ASDIRECTED XX 12/05/20 06:00 12/06/20 05:59 DC Heparin Sodium (Heparin) Please refer to ... ASDIRECTED XX 12/07/20 06:00 12/08/20 05:59 DC Heparin Sodium (Heparin) Please refer to ... ASDIRECTED XX 12/09/20 06:00 12/10/20 05:59 Heparin Sodium (Heparin) dose as per volume indica... ASDIRECTED PRN IV SEE LABEL COMMENTS 12/05/20 06:00 12/05/20 19:24 DC Heparin Sodium (Heparin) dose as per volume indica... ASDIRECTED PRN IV SEE LABEL COMMENTS 12/07/20 06:00 12/07/20 17:54 DC Heparin Sodium (Heparin) dose as per volume indica... ASDIRECTED PRN IV SEE LABEL COMMENTS 12/09/20 06:00 12/09/20 10:59 Hydromorphone HCl (Dilaudid) 2 mg Q4H PRN PO PAIN LEVEL 7-10 12/02/20 20:30 12/09/20 08:37 Insulin Detemir (Levemir Insulin) 15 units BID SC 12/02/20 21:00 12/09/20 08:38 Insulin Human Lispro (HumaLOG INSULIN) SEE PROTOCOL TABLE AC SC 12/02/20 17:30 12/09/20 08:39 Insulin Human Lispro (HumaLOG INSULIN) SEE PROTOCOL TABLE QHS SC 12/02/20 21:00 Iron (Venofer) 100 mg HD IV 12/03/20 15:05 12/07/20 13:30 Lactobacillus Acidophilus (Bacid) 1 ea WMHS PO 12/03/20 12:30 12/09/20 08:38 Lidocaine/ Diphenhydr/Alum/ Mg/Simeth (Magic Mouthwash) 5ML AC SSP 12/02/20 17:30 12/07/20 10:00 Magnesium Sulfate (Epsom Salt) soak bilateral feet ... DAILY@1700 TOP 12/03/20 17:00 12/07/20 09:21 DC 12/06/20 16:22 Metoprolol Tartrate (Lopressor) 50 mg BID PO 12/02/20 21:00 12/09/20 08:37 Nortriptyline HCl (Pamelor) 10 mg QHS PO 12/03/20 21:00 12/06/20 08:55 DC 12/05/20 21:18 Nortriptyline HCl (Pamelor) 20 mg QHS PO 12/07/20 21:00 12/08/20 20:37 Oxycodone HCl (Roxicodone, Oxyir) 5 mg Q4HP PRN PO MODERATE PAIN (PS 5-7) 12/02/20 19:20 Cancel Pantoprazole Sodium (Protonix) 40 mg DAILY PO 12/03/20 09:00 12/09/20 08:37 Pregabalin (Lyrica) 25 mg BID PO 12/02/20 21:00 12/09/20 08:37 Senna (Senokot) 1 tab QHS PO 12/02/20 21:00 12/08/20 20:37 Sodium Chloride ([place] Nasal [place]) 1 spray TID NA 12/03/20 09:00 12/07/20 10:02 Tramadol HCl (Ultram) 75 mg Q4HP PRN PO MODERATE PAIN (PS 5-7) 12/02/20 15:05 Cancel Warfarin Sodium (Coumadin) 2.5 mg Th@1700 PO 12/08/20 17:00 12/05/20 10:31 DC Warfarin Sodium (Coumadin) 4 mg SuMoTuWeFrSa@1700 PO 12/03/20 17:00 12/05/20 10:31 DC 12/04/20 18:28 Warfarin Sodium (Coumadin) 5 mg DAILY@17 PO 12/05/20 17:00 12/06/20 08:55 DC 12/05/20 17:07 Warfarin Sodium (Coumadin) 6 mg DAILY@17 PO 12/06/20 17:00 12/08/20 18:36 CACHORRO MEDEL MD Dec 09, 2020 10:22
[2020-12-09] MEDS: VANICREAM MOISTURIZING SKIN CREAM 113GM TUBE TOP SCH (11:35)
[2020-12-09] MEDS: IRON SUCROSE 100MG 5ML VIAL (J1756 PER 1MG) IV SCH (11:54)
[2020-12-09 12:14] LABS: BASO # 0.1 10^3/uL (0.0-0.2); BASO % 0.7 % (0.0-1.0); EOS # 0.5 10^3/uL (0.0-0.5); EOS % 5.8 % (0.0-3.0); HEMATOCRIT 27.9 % (42.0-52.0); HEMOGLOBIN 8.8 g/dl (13.5-17.5); LYMPH # 0.9 10^3/uL (1.5-5.0); LYMPH % 10.5 % (24.0-44.0); MEAN CORPUSCULAR HEMOGLOBIN 33.5 pg (27.0-33.0); MEAN CORPUSCULAR HGB CONC 31.5 g/dl (32.0-36.5); MEAN CORPUSCULAR VOLUME 106.1 fl (80.0-96.0); MONO # 0.9 10^3/uL (0.0-0.8); MONO % 10.4 % (2.0-8.0); NEUTROPHILS # 6.3 10^3/uL (1.5-8.5); NEUTROPHILS % 71.7 % (36.0-66.0); PLATELET COUNT, AUTOMATED 148 10^3/uL (150-450); RED BLOOD COUNT 2.63 10^6/uL (4.30-6.10); WHITE BLOOD COUNT 8.8 10^3/uL (4.0-10.0)
[2020-12-09 12:37] LABS: CALCIUM LEVEL 8.2 MG/DL (8.8-10.2); CREATININE FOR GFR 3.83 MG/DL (0.70-1.30); GLOMERULAR FILTRATION RATE 16.5 (>42); POTASSIUM SERUM 3.9 MEQ/L (3.5-5.1)
[2020-12-09 12:42] LABS: INR 2.62; PROTHROMBIN TIME 28.3 SECONDS (12.7-14.5)
[2020-12-09] MEDS: ceFAZolin SOD 1 GM in D5W MINI-BAG PLUS 50 ML IV SCH (15:52)
[2020-12-09 16:00] VITALS: BP 150/88
[2020-12-09] MEDS: WARFARIN SOD 3MG TAB PO SCH (16:11)
[2020-12-09 16:55] LABS: C REACTIVE PROTEIN QUANTITATIV 11.3 MG/DL (0.00-0.30)
[2020-12-09 20:00] VITALS: BP 121/61
[2020-12-09] MEDS: NORTRIPTYLINE 10 MG CAP PO SCH (20:31)
[2020-12-09] MEDS: SENNA 8.6 MG TAB (SENOKOT) PO SCH (20:31)
[2020-12-10 06:00] VITALS: BP 133/73
[2020-12-10 06:33] LABS: INR 2.42; PROTHROMBIN TIME 26.7 SECONDS (12.7-14.5)
[2020-12-10] MEDS: HumaLOG INSULIN (NovoLOG) PER UNIT SC SCH ×4 (07:27→20:38)
[2020-12-10] MEDS: MAGIC MOUTHWASH SUSPENSION BTL SSP SCH ×4 (07:30→17:30)
[2020-12-10] MEDS: ACETAMINOPHEN 500 MG TAB PO SCH ×3 (07:55→20:35)
[2020-12-10] MEDS: HYDROmorphone 2 MG TAB PO PRN ×2 (07:55→13:00)
[2020-12-10] MEDS: METOPROLOL TART 50 MG TAB PO SCH ×2 (07:55→20:37)
[2020-12-10] MEDS: PREGABALIN 25 MG CAP (LYRICA) PO SCH ×2 (07:56→20:36)
[2020-12-10] MEDS: LACTOBACILLUS ACIDOPHILUS CAP (BACID) PO SCH ×4 (07:56→20:35)
[2020-12-10] MEDS: VANICREAM MOISTURIZING SKIN CREAM 113GM TUBE TOP SCH (07:56)
[2020-12-10] MEDS: ASPIRIN 81MG ENTERIC TABLET PO SCH (07:56)
[2020-12-10] MEDS: SODIUM CHLORIDE NASAL 0.65% SPRAY BTL (OCEAN) SCH ×4 (07:56→20:37)
[2020-12-10] MEDS: DOCUSATE SODIUM 100MG CAPSULE PO SCH ×2 (07:56→20:39)
[2020-12-10] MEDS: FLUTICASONE PROP 0.05% NASAL SPRAY 16 GM (FLONASE) NARES SCH ×3 (07:56→20:37)
[2020-12-10] MEDS: PANTOPRAZOLE 40MG TAB (PROTONIX) PO SCH (07:56)
[2020-12-10] MEDS: REMEDY PHYTOPLEX Z-GUARD PASTE 113GM TUBE (FROM STOREROOM PRODUCT) TOP SCH ×3 (07:57→20:37)
--- NOTE | 2020-12-10 11:05 | IPNPDOC ---
Text Note Date of Service The patient was seen on 12/09/20. NOTE SUBJECTIVE: Mr. Hernandez was sleeping when we came in to see him this morning. Pt states that his pain has started to get better with adequate pain control . Pt states normal breathing today, remains off oxygen . OBJECTIVE: PHYSICAL EXAMINATION: GENERAL: Patient is awake, alert, oriented times three. HEAD AND NECK EXAM: Extraocular muscles intact. Pupils equally round and reactive to light. Mucous membranes are moist. Neck is supple. He has a tunneled hemodialysis catheter. CARDIOVASCULAR: S1, S2. Regular rate. Trace edema of the bilateral lower extremities. RESPIRATORY: Chest is clear to auscultation bilaterally. Bilateral equal air entry. No rales or rhonchi. ABDOMEN: Soft. Positive bowel sounds. Nontender. No organomegaly MUSCULOSKELETAL: Patient has dressings on the bilateral feet because of ulcers. CENTRAL NERVOUS SYSTEM (COURT SUPERVISOR): No focal deficit. Power is 5/5 in all extremities. ASSESSMENT AND PLAN: 1. End-stage renal disease. Patient is due for dialysis this afternoon. Patient's renal function is stable with normal electrolytes. Patient's labs were ordered this morning. 2. Anemia in end-stage renal disease. Continue Venofer and Aranesp. 3. Diastolic congestive heart failure. Volume status is optimal. Currently, he is not on any diuretics. Continue current dose of metoprolol. 4. Peripheral vascular disease and ulcers of lower extremities. Patient is on cefazolin. The rest of the management is as per interventional radiology. VS,Fishbone, I+O VS, Fishbone, I+O Vital Signs Date Time Temp Pulse Resp B/P (MAP) Pulse Ox O2 Delivery O2 Flow Rate FiO2 12/09/20 08:37 16 12/09/20 08:37 78 128/62 12/09/20 06:00 98.0 93 Room Air I&O- Last 24 Hours up to 6 AM 12/09/20 06:00 Intake Total 920 ml Balance 920 ml GME ATTESTATION GME ATTESTATION My faculty preceptor for this patient encounter was physically present during the encounter and was fully available. All aspects of the patient interview, examination, medical decision making process, and medical care plan development were reviewed and approved by the faculty preceptor. The faculty preceptor is aware and concurs with the plan as stated in the body of this note and will attest to such by his/her cosignature. Breezy Sterling MD Dec 09, 2020 11:05
--- NOTE | 2020-12-10 13:00 | IPN ---
PROGRESS NOTE DATE: 12/10/2020 Mr. Bernard is seen this morning on his bedside. He reports that he has been making good progress with rehabilitation and was able to walk to the gym and back to his room. He reports that ulcers on his feet are healing. He denies any dyspnea, chest pain, nausea, or vomiting. PHYSICAL EXAMINATION: Temperature 98.4 degrees Fahrenheit, heart rate 77 per minute, respiratory rate 18 per minute, blood pressure 106/60 mmHg, and oxygen saturation 92% on room air. Head is atraumatic. Neck supple and without jugular venous distention (JVD) or thyroid enlargement. Internal jugular vein catheter on right side is present. Heart sounds are irregular in rhythm and lungs clear to auscultation. Abdomen soft and nontender, and bowel sounds are normal. Extremities without any cyanosis or clubbing. Neurologically he is awake, alert, and at his baseline mentation. Patient did not have any new labs done today. His blood sugars are 112 and 142 today. PROBLEMS: 1. End-stage renal disease. Patient was dialyzed yesterday, and next dialysis will be scheduled for Saturday. No urgent need for dialysis today. 2. Anemia. His anemia has been stable and essentially unchanged. He will continue to receive intravenous iron and Aranesp during dialysis. 3. Peripheral vascular disease and lower extremity ulcers. Patient feels that his ulcers are healing. His C-reactive protein is slightly higher. 4. Congestive heart failure. Volume status very well compensated and no urgent intervention needed at present.
[2020-12-10 14:00] VITALS: BP 115/58
[2020-12-10] MEDS: WARFARIN SOD 3MG TAB PO SCH (17:15)
[2020-12-10] MEDS: ceFAZolin SOD 1 GM in D5W MINI-BAG PLUS 50 ML IV SCH (17:15)
[2020-12-10 20:00] VITALS: BP 121/64
[2020-12-10] MEDS: SENNA 8.6 MG TAB (SENOKOT) PO SCH (20:36)
[2020-12-10] MEDS: LEVEMIR (INSULIN DETEMIR) 1 UNITS/0.01ML SC SCH (20:38)
[2020-12-10] MEDS: NORTRIPTYLINE 10 MG CAP PO SCH (20:39)
[2020-12-11 05:56] LABS: INR 3.23; PROTHROMBIN TIME 33.3 SECONDS (12.7-14.5)
[2020-12-11 06:00] VITALS: BP 141/74
[2020-12-11] MEDS: MAGIC MOUTHWASH SUSPENSION BTL SSP SCH ×3 (07:24→15:35)
[2020-12-11] MEDS: HumaLOG INSULIN (NovoLOG) PER UNIT SC SCH ×4 (08:26→20:54)
[2020-12-11] MEDS: ACETAMINOPHEN 500 MG TAB PO SCH ×3 (08:29→21:03)
[2020-12-11] MEDS: ASPIRIN 81MG ENTERIC TABLET PO SCH (08:29)
[2020-12-11] MEDS: LACTOBACILLUS ACIDOPHILUS CAP (BACID) PO SCH ×4 (08:29→21:01)
[2020-12-11] MEDS: HYDROmorphone 2 MG TAB PO PRN ×2 (08:29→21:05)
[2020-12-11] MEDS: PREGABALIN 25 MG CAP (LYRICA) PO SCH ×2 (08:29→21:02)
[2020-12-11] MEDS: DOCUSATE SODIUM 100MG CAPSULE PO SCH ×2 (08:29→21:01)
[2020-12-11] MEDS: PANTOPRAZOLE 40MG TAB (PROTONIX) PO SCH (08:29)
[2020-12-11] MEDS: SODIUM CHLORIDE NASAL 0.65% SPRAY BTL (OCEAN) SCH ×4 (08:33→21:01)
[2020-12-11] MEDS: REMEDY PHYTOPLEX Z-GUARD PASTE 113GM TUBE (FROM STOREROOM PRODUCT) TOP SCH ×3 (08:33→21:01)
[2020-12-11] MEDS: METOPROLOL TART 50 MG TAB PO SCH ×2 (08:33→21:02)
[2020-12-11] MEDS: FLUTICASONE PROP 0.05% NASAL SPRAY 16 GM (FLONASE) NARES SCH ×3 (08:33→21:01)
[2020-12-11] MEDS: VANICREAM MOISTURIZING SKIN CREAM 113GM TUBE TOP SCH (08:34)
[2020-12-11 14:00] VITALS: BP 111/58
[2020-12-11] MEDS: WARFARIN SOD 3MG TAB PO SCH (15:35)
--- NOTE | 2020-12-11 17:44 | IPN ---
PROGRESS NOTE DATE: 12/11/2020 SUBJECTIVE: Mr. Bernard is seen this morning on his bedside. He is lying in his bed and reports that today he has a day off from rehab. He denies any dyspnea, chest pain, nausea or vomiting. PHYSICAL EXAMINATION: VITALS: Temperature 98.1 degrees Fahrenheit, heart rate 80 per minute, respiratory rate 20 per minute, blood pressure 120/82 mmHg and oxygen saturation 93% on room air. HEENT: Head is atraumatic. Neck supple and without JVD or thyroid enlargement. Permacath is present in his right internal jugular vein. HEART: Heart sounds are irregular. LUNGS: Clear to auscultation. ABDOMEN: Soft and nontender. Bowel sounds are normal. EXTREMITIES: Without any cyanosis or clubbing. Bilateral lower extremity ulcers are covered with dressing. NEUROLOGIC: He is at his baseline mentation without a focal deficit. LABORATORY DATA: Patient did not have any new labs done today again. PROBLEMS: 1. End-stage renal disease: Patient is dialyzed on Saturday, Saturday and Saturday schedule. He will be scheduled for next dialysis tomorrow. His electrolytes were stable and volume status has been well compensated with dialysis. 2. Congestive heart failure: At present he is very well compensated and we will continue to manage it with dialysis. He does not need diuretic. 3. Anemia: Patient has been on intravenous iron supplement and also weekly dose of Aranesp. CBC should be checked tomorrow morning. 4. Bilateral lower extremity ulcers and peripheral vascular disease: Patient has significant vascular disease in lower extremities and also has small superficial ulcers. He continues to receive his wound care and dressings. 5. Acute deconditioning: Patient is currently receiving acute rehab and he is pleased with his progress.
[2020-12-11 20:30] VITALS: BP 125/60
[2020-12-11] MEDS: LEVEMIR (INSULIN DETEMIR) 1 UNITS/0.01ML SC SCH (21:01)
[2020-12-11] MEDS: NORTRIPTYLINE 10 MG CAP PO SCH (21:02)
[2020-12-11] MEDS: SENNA 8.6 MG TAB (SENOKOT) PO SCH (21:02)
[2020-12-12] MEDS: HYDROmorphone 2 MG TAB PO PRN ×2 (01:40→21:16)
[2020-12-12 06:10] LABS: HEMOGLOBIN 9.1 g/dl (13.5-17.5); MEAN CORPUSCULAR HEMOGLOBIN 33.5 pg (27.0-33.0); MEAN CORPUSCULAR HGB CONC 31.4 g/dl (32.0-36.5); MEAN CORPUSCULAR VOLUME 106.6 fl (80.0-96.0); PLATELET COUNT, AUTOMATED 160 10^3/uL (150-450); RED BLOOD COUNT 2.72 10^6/uL (4.30-6.10); WHITE BLOOD COUNT 4.8 10^3/uL (4.0-10.0)
[2020-12-12 06:14] VITALS: BP 140/74
[2020-12-12 06:25] LABS: INR 3.67; PROTHROMBIN TIME 36.7 SECONDS (12.7-14.5)
[2020-12-12 06:35] LABS: ALBUMIN 2.3 GM/DL (3.2-5.2); CALCIUM LEVEL 7.9 MG/DL (8.8-10.2); CREATININE FOR GFR 4.17 MG/DL (0.70-1.30); GLOMERULAR FILTRATION RATE 14.9 (>42); PHOSPHORUS LEVEL 5.4 MG/DL (2.5-4.9); POTASSIUM SERUM 4.6 MEQ/L (3.5-5.1)
[2020-12-12] MEDS: HumaLOG INSULIN (NovoLOG) PER UNIT SC SCH ×4 (07:30→21:00)
[2020-12-12] MEDS: MAGIC MOUTHWASH SUSPENSION BTL SSP SCH ×3 (07:30→17:27)
[2020-12-12] MEDS: ASPIRIN 81MG ENTERIC TABLET PO SCH (09:00)
[2020-12-12] MEDS: DOCUSATE SODIUM 100MG CAPSULE PO SCH ×2 (09:00→21:15)
[2020-12-12] MEDS: PANTOPRAZOLE 40MG TAB (PROTONIX) PO SCH (09:01)
[2020-12-12] MEDS: ACETAMINOPHEN 500 MG TAB PO SCH ×3 (09:01→21:15)
[2020-12-12] MEDS: LACTOBACILLUS ACIDOPHILUS CAP (BACID) PO SCH ×4 (09:01→21:14)
[2020-12-12] MEDS: PREGABALIN 25 MG CAP (LYRICA) PO SCH ×2 (09:01→21:14)
[2020-12-12] MEDS: METOPROLOL TART 50 MG TAB PO SCH ×2 (09:02→21:16)
[2020-12-12] MEDS: SODIUM CHLORIDE NASAL 0.65% SPRAY BTL (OCEAN) SCH ×3 (09:03→21:00)
[2020-12-12] MEDS: VANICREAM MOISTURIZING SKIN CREAM 113GM TUBE TOP SCH (09:03)
[2020-12-12] MEDS: FLUTICASONE PROP 0.05% NASAL SPRAY 16 GM (FLONASE) NARES SCH ×2 (09:03→21:00)
[2020-12-12] MEDS: REMEDY PHYTOPLEX Z-GUARD PASTE 113GM TUBE (FROM STOREROOM PRODUCT) TOP SCH ×3 (09:03→21:00)
[2020-12-12] MEDS ORDERED: ASPI-551 PO (12:03)
[2020-12-12] MEDS ORDERED: PREG25CA2 PO (12:03)
[2020-12-12] MEDS ORDERED: PANT40TA29 PO (12:03)
[2020-12-12] MEDS ORDERED: DILA2TAB6 PO (12:03)
[2020-12-12] MEDS ORDERED: METO50TA7 PO (12:03)
[2020-12-12] MEDS ORDERED: NORT10CA2 PO (12:03)
[2020-12-12] MEDS: IRON SUCROSE 100MG 5ML VIAL (J1756 PER 1MG) IV SCH (12:58)
--- NOTE | 2020-12-12 13:02 | IPNPDOC ---
Date Seen The patient was seen on 12/12/20. Progress Note SUBJECTIVE: Patient denies any shortness of breath chest pain pressure tightness nausea vomiting abdominal pain diarrhea fever chills. He has chronic lower extremity ulcers which are bandaged OBJECTIVE PHYSICAL EXAMINATION: VITAL SIGNS: Please see below. GENERAL: Awake alert oriented to person place and time answering questions appropriately speech is fluent HEENT: No JVD thyromegaly or cervical lymphadenopathy CARDIOVASCULAR: S1-S2 irregularly irregular not tachycardic RESPIRATORY: Clear to auscultation air entry is equal bilaterally no wheezing or rales ABDOMINAL: Positive bowel sounds soft nontender nondistended no rebound or guarding EXTREMITIES: Bilateral lower extremities are bandaged with chronic ulcers NEUROLOGICAL: Awake alert oriented to person place and time face is symmetric tongue is midline speech is fluent. Gait was not tested. Motor function is 5 out of 5 x 4 extremities no sensory disturbance. LABORATORY DATA, IMAGING STUDIES, MICROBIOLOGY: Please see below. ASSESSMENT AND PLAN: 75-year-old male with history of severe aortic stenosis status post aortic valve replacement with bioprosthetic valve atrial fibrillation biventricular heart failure CAD CABG end-stage renal disease on dialysis diabetes type 2 peripheral vascular disease status post angioplasty of left lower extremity by Dr. Tafoya with chronic multiple ulcerations and chronic edema angiogram in June 2020 showed popliteal and. Needle stenosis of the left foot status post angioplasty developed a CVA during medical admission and transferred to rehab services he has received maintenance hemodialysis during the admission. Right parietal lobe CVA -On chronic warfarin and aspirin -Target INR of 2.5-3.5 due to bioprosthetic aortic valve -Acute rehab services Peripheral arterial disease with chronic venous ulcers -ID consulted dressing changes and wound care End-stage renal disease on maintenance dialysis nephrology consulted to manage dialysis needs Diastolic CHF EF of 65 to 70% grade 2 diastolic dysfunction preserved systolic function -Volume regulated by nephrology via dialysis Anemia of chronic disease with chronic iron deficiency anemia -RNS per nephrology team hemoglobin stable no signs of bleeding VS, I&O, 24H, Fishbone Vital Signs/I&O Vital Signs Date Time Temp Pulse Resp B/P (MAP) Pulse Ox O2 Delivery O2 Flow Rate FiO2 12/12/20 09:02 80 138/72 12/12/20 06:14 99.3 16 96 Room Air I&O- Last 24 Hours up to 6 AM 12/12/20 06:00 Intake Total 540 ml Balance 540 ml Laboratory Data 24H LABS Laboratory Tests 2 12/11/20 16:31: Bedside Glucose (Misc Panel) 150H 12/11/20 20:25: Bedside Glucose (Misc Panel) 118H 12/12/20 05:45: Bedside Glucose (Misc Panel) 92 12/12/20 05:48: Nucleated Red Blood Cells % (auto) 0.0, Prothrombin Time 36.7H, Prothromb Time International Ratio 3.67, Anion Gap 8, Glomerular Filtration Rate 14.9L, Calcium Level 7.9L, Phosphorus Level 5.4H, Albumin 2.3L 12/12/20 11:39: Bedside Glucose (Misc Panel) 181H CBC/BMP Laboratory Tests 12/12/20 05:48 MAYELA GOULD MD Dec 12, 2020 13:02
--- NOTE | 2020-12-12 15:11 | IPNPDOC ---
Text Note Date of Service The patient was seen on 12/12/20. NOTE SUBJECTIVE: Mr. Hernandez was sleeping when I came in to see him this morning. Pt states that his pain has started to get better with adequate pain control . Pt states normal breathing today, remains off oxygen . Pt is getting better and better with Physical therapy walking from the room to the exercise room without getting short of breath. OBJECTIVE: PHYSICAL EXAMINATION: GENERAL: Patient is awake, alert, oriented times three. HEAD AND NECK EXAM: Extraocular muscles intact. Pupils equally round and reactive to light. Mucous membranes are moist. Neck is supple. He has a tunneled hemodialysis catheter. CARDIOVASCULAR: S1, S2. Regular rate. Trace edema of the bilateral lower extremities. RESPIRATORY: Chest is clear to auscultation bilaterally. Bilateral equal air entry. No rales or rhonchi. ABDOMEN: Soft. Positive bowel sounds. Nontender. No organomegaly MUSCULOSKELETAL: Patient has dressings on the bilateral feet because of ulcers. CENTRAL NERVOUS SYSTEM (SUPER[employer]ING): No focal deficit. Power is 5/5 in all extremities. ASSESSMENT AND PLAN: 1. End-stage renal disease: Patient is due for dialysis this afternoon. Patient's electrolytes are optimized on hemodialysis. Volume status is optimal. 2. Anemia in end-stage renal disease. Continue Venofer and Aranesp. 3. Diastolic congestive heart failure. Volume status is optimal. Currently, he is not on any diuretics. Continue current dose of metoprolol. 4. Peripheral vascular disease and ulcers of lower extremities. Patient is on cefazolin. The rest of the management is as per interventional radiology. VS,Fishbone, I+O VS, Fishbone, I+O Laboratory Tests 12/12/20 05:48 Vital Signs Date Time Temp Pulse Resp B/P (MAP) Pulse Ox O2 Delivery O2 Flow Rate FiO2 12/12/20 09:02 80 138/72 12/12/20 06:14 99.3 16 96 Room Air I&O- Last 24 Hours up to 6 AM 12/12/20 06:00 Intake Total 540 ml Balance 540 ml GME ATTESTATION GME ATTESTATION My faculty preceptor for this patient encounter was physically present during the encounter and was fully available. All aspects of the patient interview, examination, medical decision making process, and medical care plan development were reviewed and approved by the faculty preceptor. The faculty preceptor is aware and concurs with the plan as stated in the body of this note and will attest to such by his/her cosignature. Breezy Sterling MD Dec 12, 2020 15:11
[2020-12-12] MEDS: WARFARIN SOD 3MG TAB PO SCH (17:00)
[2020-12-12 20:00] VITALS: BP 119/62
[2020-12-12] MEDS: NORTRIPTYLINE 10 MG CAP PO SCH (21:15)
[2020-12-12] MEDS: SENNA 8.6 MG TAB (SENOKOT) PO SCH (21:15)
[2020-12-12] MEDS: LEVEMIR (INSULIN DETEMIR) 1 UNITS/0.01ML SC SCH (21:17)
[2020-12-13 06:00] VITALS: BP 124/66
[2020-12-13 06:49] LABS: INR 3.23; PROTHROMBIN TIME 33.3 SECONDS (12.7-14.5)
[2020-12-13] MEDS: MAGIC MOUTHWASH SUSPENSION BTL SSP SCH ×2 (07:30→11:46)
[2020-12-13] MEDS: REMEDY PHYTOPLEX Z-GUARD PASTE 113GM TUBE (FROM STOREROOM PRODUCT) TOP SCH (08:42)
[2020-12-13] MEDS: HumaLOG INSULIN (NovoLOG) PER UNIT SC SCH ×2 (08:45→12:00)
[2020-12-13] MEDS: PREGABALIN 25 MG CAP (LYRICA) PO SCH (08:46)
[2020-12-13] MEDS: DOCUSATE SODIUM 100MG CAPSULE PO SCH (08:46)
[2020-12-13] MEDS: ASPIRIN 81MG ENTERIC TABLET PO SCH (08:46)
[2020-12-13] MEDS: LACTOBACILLUS ACIDOPHILUS CAP (BACID) PO SCH ×2 (08:46→11:55)
[2020-12-13] MEDS: PANTOPRAZOLE 40MG TAB (PROTONIX) PO SCH (08:46)
[2020-12-13] MEDS: ACETAMINOPHEN 500 MG TAB PO SCH (08:46)
[2020-12-13 08:47] VITALS: BP 127/65
[2020-12-13] MEDS: HYDROmorphone 2 MG TAB PO PRN (08:47)
[2020-12-13] MEDS: METOPROLOL TART 50 MG TAB PO SCH (08:47)
[2020-12-13] MEDS: SODIUM CHLORIDE NASAL 0.65% SPRAY BTL (OCEAN) SCH (08:48)
[2020-12-13] MEDS: VANICREAM MOISTURIZING SKIN CREAM 113GM TUBE TOP SCH (08:48)
[2020-12-13] MEDS: FLUTICASONE PROP 0.05% NASAL SPRAY 16 GM (FLONASE) NARES SCH (08:48)
--- NOTE | 2020-12-13 14:24 | IPNPDOC ---
Text Note Date of Service The patient was seen on 12/13/20. NOTE SUBJECTIVE: Mr. Pabon was seen at bedside this morning. He is eager to go home to his . Patient was feeling his usual self under no acute distress. Patient states that he will follow-up nephrology hemodialysis outpatient. His schedule was explained to him and he will see nephrology outpatient this . OBJECTIVE: PHYSICAL EXAMINATION: GENERAL: Patient is awake, alert, oriented times three. HEAD AND NECK EXAM: Extraocular muscles intact. Pupils equally round and reactive to light. Mucous membranes are moist. Neck is supple. He has a tunneled hemodialysis catheter. CARDIOVASCULAR: S1, S2. Regular rate. Trace edema of the bilateral lower extremities. RESPIRATORY: Chest is clear to auscultation bilaterally. Bilateral equal air entry. No rales or rhonchi. ABDOMEN: Soft. Positive bowel sounds. Nontender. No organomegaly MUSCULOSKELETAL: Patient has dressings on the bilateral feet because of ulcers. CENTRAL NERVOUS SYSTEM (RACK CLEANER): No focal deficit. Power is 5/5 in all extremities. ASSESSMENT AND PLAN: Patient is a 75-year-old male with a past medical history of coronary artery disease s/p coronary artery bypass grafting, severe aortic stenosis s/p AVR on Coumadin, atrial fibrillation, chronic systolic and diastolic congestive heart failure, chronic kidney disease stage IV, diabetes mellitus type 2, peripheral artery disease, pulmonary hypertension, Lewy body dementia, cerebrovascular accident, dysphagia, bilateral lower extremity arterial ulcers who is being seen by nephrology service for hemodialysis started during his hospital course due to worsening kidney function. 1. ESRD initiated on HD on this admission Patient is most likely to be discharged this afternoon. Patient's electrolytes are optimized on hemodialysis. Volume status is optimal as per the physical exam. Patient is being dialyzed on a perma - catheter. He tolerated hemodialysis in the hospital really well and improved his breathing status dramatically from being on 3 L of oxygen to breathing normally on room air. Patient is recommended to follow-up as outpatient to receive dialysis. He has been scheduled for Saturday and Saturdays. Patient will be seen outpatient this . 2. Anemia secondary to end-stage renal disease: Continue Venofer and Aranesp. 3. Diastolic congestive heart failure: Volume status is optimal. Currently,he is not on any diuretics. Continue current dose of metoprolol. Continue to monitor I's and O's. Patient is on 1800 mL of fluid restriction. Patient's pedal edema is grade +1. 4. Peripheral vascular disease and ulcers of lower extremities. Patient is on cefazolin. The rest of the management is as per interventional radiology. VS,Fishbone, I+O VS, Fishbone, I+O Vital Signs Date Time Temp Pulse Resp B/P (MAP) Pulse Ox O2 Delivery O2 Flow Rate FiO2 12/13/20 09:17 18 12/13/20 08:47 79 127/65 12/13/20 06:00 98.0 96 Room Air I&O- Last 24 Hours up to 6 AM 12/13/20 06:00 Intake Total 300 ml Output Total 2000 ml Balance -1700 ml GME ATTESTATION GME ATTESTATION My faculty preceptor for this patient encounter was physically present during the encounter and was fully available. All aspects of the patient interview, examination, medical decision making process, and medical care plan development were reviewed and approved by the faculty preceptor. The faculty preceptor is aware and concurs with the plan as stated in the body of this note and will attest to such by his/her cosignature. ATTENDING NOTE Ok for discharge from nephrology point of view. pt seen and examined w/ resident today. Set up for TTS schedule HD outpt. Breezy Sterling MD Dec 13, 2020 11:58 PTEER SANCHEZ DO Dec 15, 2020 12:17
[2020-12-14] MEDS ORDERED: METO50TA7 PO (22:09)
[2020-12-14] MEDS ORDERED: NORT10CA2 PO (22:09)
[2020-12-14] MEDS ORDERED: DILA2TAB6 PO (22:09)
[2020-12-14] MEDS ORDERED: GLIP10TA6 PO (22:09)
[2020-12-14] MEDS ORDERED: PREG25CA PO (22:09)
[2020-12-14] MEDS ORDERED: ASPI-161 PO (22:09)
[2020-12-14] MEDS ORDERED: PANT40TA29 PO (22:10)
== END 2020-12-13 12:05 | disposition home health service (06) | DRG 56 ==
LOC: M PM&R 17:30
PROVIDERS: ADMIT Physical Medicine & Rehabilitation; ATTEND Physical Medicine & Rehabilitation
PROC: 5A1D70Z Performance of Urinary Filtration, Intermittent, Less than 6 Hours Per Day (ICD-10-PCS; principal; 2020-12-09)
DX: I69.398 Other sequelae of cerebral infarction (principal); N18.6 End stage renal disease; I50.42 Chronic combined systolic (congestive) and diastolic (congestive) heart failure; L97.819 Non-pressure chronic ulcer of other part of right lower leg with unspecified severity; L97.829 Non-pressure chronic ulcer of other part of left lower leg with unspecified severity; R53.1 Weakness; I25.10 Atherosclerotic heart disease of native coronary artery without angina pectoris; I48.91 Unspecified atrial fibrillation; E11.22 Type 2 diabetes mellitus with diabetic chronic kidney disease; E11.51 Type 2 diabetes mellitus with diabetic peripheral angiopathy without gangrene; I27.20 Pulmonary hypertension, unspecified; G31.83 Neurocognitive disorder with Lewy bodies; F02.80 Dementia in other diseases classified elsewhere, unspecified severity, without behavioral disturbance, psychotic disturbance, mood disturbance, and anxiety; R13.10 Dysphagia, unspecified; I69.391 Dysphagia following cerebral infarction; R26.2 Difficulty in walking, not elsewhere classified; Z74.09 Other reduced mobility; Z74.1 Need for assistance with personal care; D64.9 Anemia, unspecified; Z98.41 Cataract extraction status, right eye; Z89.421 Acquired absence of other right toe(s); Z89.422 Acquired absence of other left toe(s); Z99.2 Dependence on renal dialysis; Z79.82 Long term (current) use of aspirin; Z79.01 Long term (current) use of 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s; Z79.899 Other long term (current) drug therapy; Z95.2 Presence of prosthetic heart valve; Z95.1 Presence of aortocoronary bypass graft; Z88.0 Allergy status to penicillin; Z88.1 Allergy status to other antibiotic agents; Z88.5 Allergy status to narcotic agent; Z88.8 Allergy status to other drugs, medicaments and biological substances; Z91.018 Allergy to other foods; D63.1 Anemia in chronic kidney disease; G47.33 Obstructive sleep apnea (adult) (pediatric)

== ENCOUNTER → 2020-12-13 | Outpatient (POV) | payer MEDICARE, MEDICAID ==
[~2020-12-13] VITALS: Ht 177.8 cm; Wt 86.3 kg
[~2020-12-13] MED LIST changes: +ASPI-161 PO; +DILA2TAB6 PO; +MIDAZOLAM INJ 2MG/2ML VIAL (J2250 PER 1MG) As Ordered ONE; +NORT10CA2 PO; +PREG25CA PO; +TRAM50TA2 PO; +diphenhydrAMINE 50MG/ML VIAL (J1200) As Ordered ONE; +fentaNYL 100 MCG/2 ML INJECTION (J3010) As Ordered ONE
[2020-12-13 13:15] VITALS: BP 123/60
--- NOTE | 2020-12-16 12:06 | IRPN ---
[facility] IR Progress Note IR Progress Note DATE: Dec 13, 2020 FOLLOW-UP: 75-year-old male with coronary artery disease, atrial fibrillation, hypertension and diabetes, presents for worsening right lower extremity ulcers. Patient is known to me. He suffers with chronic bilateral lower extremity PAD with multiple ulcers. He underwent left lower extremity angiography with me, in June 2020. This demonstrated single vessel peroneal artery outflow to the left foot. Anterior tibial and posterior tibial artery recanalization attempts were unsuccessful. However, patient did have multifocal popliteal artery stenosis and tibioperoneal artery stenosis which responded to angioplasty. Since that time, patient is still struggling with wound healing on the left lower extremity. However, multiple painful ulcers in the right lower extremity are getting worse. Patient reports recently, he was admitted to the hospital and his feet were soaked in Epsom salt. Patient and his feel strongly, that this has worsened his ulcers and now he has black spots on his right lower leg. Patient has not undergone right lower extremity angiography thus far. Patient is on Coumadin for a atrial fibrillation. Patient does have a pig valve. Patient is under the care of php mysql developer Dr. Peng. Patient's states his blood sugars have been out of control in the hospital. Patient was recently started on dialysis. He reports 2 prior strokes, 2 years ago and has been diagnosed with Lewy body dementia and Parkinson's. Patient denies chest pain, shortness of breath, orthopnea or paroxysmal nocturnal dyspnea. PAST MEDICAL HISTORY: CHF Renal failure dialysis CAD Peripheral vascular disease Stroke 2 Atrial fibrillation Diabetes [place] Pneumonia PAST SURGICAL HISTORY: CABG Aortic valve placement - pig valve Back surgery ON EXAMINATION: Right lower extremity: Warm to touch. Popliteal pulses 1+ DP PT negative sensation intact motor 5 out of 5. Tender ulcerations on the right foot. I reviewed serial images of the ulcerations of the right foot provided to me by the patient's . There is progressive worsening in the right lower extremity ulcers. There are areas of focal eschar on the right foot. Left lower extremity: Warm to touch. Popliteal pulses 1+ DP PT negative, sensation intact, motor 5 out of 5. Tender ulcerations on the left foot. I reviewed serial images of the ulcerations of the left foot provided to me by the patient's . The left foot ulcers appear unchanged. No focal eschar. IMPRESSION: 75-year-old male with significant comorbidities and severe left lower extremity PAD with single vessel peroneal artery runoff to the left foot, presents for right lower extremity evaluation. I agree patient requires at least diagnostic angiogram and/or intervention in the same setting if possible. We dis cussed the risks and benefits of the procedure and patient is willing to proceed. We'll schedule the patient for right lower extremity angiography and intervention. Patient would have to stop his Coumadin prior to the procedure for goal INR 1.5. This would put him at risk of a stroke, secondary to his atrial fibrillation. Patient to discuss this with his php mysql developer before stopping any medication. Thank you for this referral Cc Dr. Peng cardiology Cc Dr. Rowdy Dolan Cc Dr. Mcclure Allergies Coded Allergies: [place] (Verified Allergy, Severe, ANAPHYLAXIS, 11/09/14) Penicillins (Verified Allergy, Severe, Anaphylaxis, 02/17/20) HAS RECEIVED 2nd & 3RD GEN CEPHALOSPORINS w/o PROBLEM metformin (Verified Allergy, Severe, Tongue swelling, 07/02/18) Mqehydx-Bwv-Tzh Reductase Inhibitor (Verified Adverse Reaction, Intermed iate, Altered Mental Status, 07/02/18) codeine (Verified Adverse Reaction, Mild, "out of it". , 02/17/20) mixed with guifenasin duloxetine (Unverified Adverse Reaction, Mild, Nausea and vomiting, 07/02/18) clindamycin (Verified Adverse Reaction, Unknown, DIARRHEA, 02/29/20) VS,Fishbone, I+O VS, Fishbone, I+O Vital Signs Date Time Temp Pulse Resp B/P (MAP) Pulse Ox O2 Delivery O2 Flow Rate FiO2 12/13/20 13:15 97.8 77 18 123/60 (81) 100 Room Air LESLIE DEL VALLE MD Dec 16, 2020 12:06
== END ==
LOC: M IRPOV 12:22
PROVIDERS: ATTEND Radiology Diagnostic Radiology
DX: I70.245 Atherosclerosis of native arteries of left leg with ulceration of other part of foot (principal); L97.519 Non-pressure chronic ulcer of other part of right foot with unspecified severity; L97.529 Non-pressure chronic ulcer of other part of left foot with unspecified severity; I25.10 Atherosclerotic heart disease of native coronary artery without angina pectoris; G20 Parkinson's disease; G31.83 Neurocognitive disorder with Lewy bodies; I13.2 Hypertensive heart and chronic kidney disease with heart failure and with stage 5 chronic kidney disease, or end stage renal disease; E11.22 Type 2 diabetes mellitus with diabetic chronic kidney disease; E11.622 Type 2 diabetes mellitus with other skin ulcer; I25.2 Old myocardial infarction; I50.9 Heart failure, unspecified; N18.6 End stage renal disease; Z79.01 Long term (current) use of 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s; Z86.73 Personal history of transient ischemic attack (TIA), and cerebral infarction without residual deficits; Z88.0 Allergy status to penicillin; Z88.1 Allergy status to other antibiotic agents; Z88.5 Allergy status to narcotic agent; Z88.8 Allergy status to other drugs, medicaments and biological substances; Z91.018 Allergy to other foods; Z95.1 Presence of aortocoronary bypass graft; Z95.3 Presence of xenogenic heart valve

== ENCOUNTER 2020-12-14 14:21 | Inpatient (IN) | payer MEDICARE, MEDICAID ==
[~2020-12-14] VITALS: Ht 177.8 cm; Wt 94.0 kg
[~2020-12-14 14:21] MED LIST changes: -ASPI-161 PO; -MIDAZOLAM INJ 2MG/2ML VIAL (J2250 PER 1MG) As Ordered ONE; -PREG25CA PO; -diphenhydrAMINE 50MG/ML VIAL (J1200) As Ordered ONE; -fentaNYL 100 MCG/2 ML INJECTION (J3010) As Ordered ONE
[2020-12-14 16:28] LABS: BASO % 0.4 % (0.0-1.0); EOS # 0.2 10^3/uL (0.0-0.5); EOS % 1.6 % (0.0-3.0); HEMOGLOBIN 9.6 g/dl (13.5-17.5); LYMPH # 0.9 10^3/uL (1.5-5.0); LYMPH % 8.2 % (24.0-44.0); MEAN CORPUSCULAR HEMOGLOBIN 33.9 pg (27.0-33.0); MONO # 0.9 10^3/uL (0.0-0.8); MONO % 8.6 % (2.0-8.0); NEUTROPHILS # 8.5 10^3/uL (1.5-8.5); NEUTROPHILS % 80.3 % (36.0-66.0); PLATELET COUNT, AUTOMATED 188 10^3/uL (150-450); RED BLOOD COUNT 2.83 10^6/uL (4.30-6.10); WHITE BLOOD COUNT 10.6 10^3/uL (4.0-10.0)
--- NOTE | 2020-12-14 17:01 | REP ---
INDICATION: DYSPNEA/COUGH. COMPARISON: Comparison chest x-ray November 26, 2020. TECHNIQUE: Portable upright AP chest radiograph. FINDINGS: A right-sided tunnel central venous catheter is seen terminating in the expected location of the superior vena cava. The patient is status post median sternotomy and what appears to be aortic valve replacement. Mildly prominent heart is again noted unchanged. There is fissural fluid versus platelike atelectasis along the minor fissure on the right. Linear fibrosis is seen in the left base. Vascular congestion is noted. There is no evidence of pneumothorax. IMPRESSION: Central venous catheter noted in place. No complication is seen. Fissural fluid versus platelike atelectasis along the minor fissure. Linear fibrosis left base. <Electronically signed by Ortega Moser > 12/14/20 [id number]
[2020-12-14 17:13] LABS: ALBUMIN 2.5 GM/DL (3.2-5.2); BILIRUBIN,DIRECT 0.3 MG/DL (0.0-0.2); BILIRUBIN,TOTAL 0.6 MG/DL (0.2-1.0); CALCIUM LEVEL 7.9 MG/DL (8.8-10.2); CK-MB VALUE MASS 3.5 NG/ML (<3.6); CREATININE FOR GFR 4.42 MG/DL (0.70-1.30); MB/CK RELATIVE INDEX 7.61 (< OR =4); POTASSIUM SERUM 4.7 MEQ/L (3.5-5.1); THYROID STIMULATING HORMONE 2.1 uIU/ML (0.358-3.740); THYROXINE (T4) 6.7 UG/DL (4.5-12.0); TOTAL PROTEIN 7.4 GM/DL (6.4-8.2); TROPONIN I 0.02 NG/ML (< 0.10)
--- NOTE | 2020-12-14 17:34 | REPVR ---
PROCEDURE INFORMATION: Exam: CT Head Without Contrast Exam date and time: 12/14/2020 5:08 PM Age: 75 years old Clinical indication: Altered mental status/memory loss; Additional info: AMS TECHNIQUE: Imaging protocol: Computed tomography of the head without contrast. Radiation optimization: All CT scans at this facility use at least one of these dose optimization techniques: automated exposure control; mA and/or kV adjustment per patient size (includes targeted exams where dose is matched to clinical indication); or iterative reconstruction. COMPARISON: CT Head without contrast 11/28/2020 2:30 AM FINDINGS: Brain: There is no acute intracranial hemorrhage, cerebral edema, or midline shift. Chronic microvascular ischemic changes are seen in the periventricular white matter. Age-related cerebral and cerebellar volume loss is present. Cerebral ventricles: No hydrocephalus. Paranasal sinuses: There is no acute sinusitis. Mastoid air cells: The mastoid air cells are clear. Orbital cavity: The included orbital structures are unremarkable. Vasculature: Extensive vascular calcifications are present. Bones/joints: No acute fracture. Soft tissues: Unremarkable. IMPRESSION: 1. No acute intracranial abnormality. 2. Atrophy and chronic deep white matter ischemic changes. Electronically signed by: Yong Alves On 12/14/2020 17:33:42 PM
[2020-12-14 17:55] LABS: RSV AMPLIFICATION NEGATIVE (NEGATIVE)
--- NOTE | 2020-12-14 21:48 | HPEPDOC ---
[facility] Medical History & Physical Date of Admission Dec 14, 2020 Date of Service: Dec 14, 2020 Attending Physician: PEDRO VASQUEZ MD History and Physical TIME OF SERVICE: 1040pm CHIEF COMPLAINT: confusion, weakness and shortness of breath HISTORY OF PRESENT ILLNESS: The history was obtained from Eduardo Rudd and via chart review; the patient couldnt recall the events leading up to his arrival in the hospital. Mr. Fernandes noticed that he was more confused than usual today; he has Lewy Body dementia but today he was hallucinating more than usual. She also had difficulties getting him to stand up and noticed that he was short of breath. Based on ER intake notes he was noted to have an O2 sat in the 80s on RA and was placed on O2. At the time of my evaluation the patient was initially not sure where we were and admitted to not being able to remember what happened today. He denied having any pain or discomfort. REVIEW OF SYSTEMS: unable to obtain because the patient couldnt remember PAST MEDICAL/ SURGICAL HISTORY: Lewy Body dementia, ESRD w placement of perm a cath, Anemia of chronic disease, NIDDM, Chronic CAD s/p CABG, Hx of severe Aortic stenosis s/p AVR on warfarin, PVD w s/p LLE angiograms, Chronic BLE ulcers, Multiple CVAs w residual right sided weakness and right vision impairment, essential HTN, chronic HFpEF (grade 3), Moderate Pulm HTN (PASP 50), DLP, SIDNEY not compliant w CPAP, class 1 obesity, Sciatica s/p back surgery, hx of T12 vertebral fx /Osteoporosis, PEG tube placement w subsequent reversal, resection of SCC on the right hand, calf and shoulder, bilateral cataract surgery, resection of malignant melanoma, left 5th toe amputation, right 5th toe amputation FAMILY HISTORY: CAD, HTN and DM SOCIAL HISTORY: requires assistance w IADLs and ALDs except feeding himself, he doesnt smoke, drink or use recreational drugs ALLERGIES: Please see below. HOME MEDICATIONS: Please see below. PHYSICAL EXAMINATION: Vital Signs Date Time Temp Pulse Resp B/P (MAP) Pulse Ox O2 Delivery O2 Flow Rate FiO2 12/14/20 14:30 117/61 (79) 12/14/20 14:35 98.7 87 20 96 Room Air GENERAL APPEARANCE: well-nourished and developed/ NAD HEENT: no temporal wasting/ MMM&P CARDIOVASCULAR: RRR/NMRG LUNGS: CTAB on RA ABDOMEN: contour flat MUSCULOSKELETAL: PIA x 4 extremities INTEGUMENT: not pale or flushed / BLE arterial ulcers NEUROLOGICAL: CN 2-12 grossly intact (except visual sahu not tested) / speech not dysarthric PSYCHIATRIC: A&O x self, knew it was Dec 2020, initially he didnt know where we were and that Dianna was the president / able to understand and follow all commands LABORATORY DATA: Laboratory Tests 12/14/20 16:16 12/14/20 16:17 IMAGING: Chest xray IMPRESSION: Central venous catheter noted in place. No complication is seen. Fissural fluid versus platelike atelectasis along the minor fissure. Linear fibrosis left base. CT head IMPRESSION: 1. No acute intracranial abnormality. 2. Atrophy and chronic deep white matter ischemic changes. MICROBIOLOGY: Respiratory panel is neg ASSESSMENT: Mr. Barnett is a 75 yr old w Lewy Body dementia, ESRD, ACD, NIDDM, CAD s/p CABG, s/p AVR, PVD, Chronic BLE ulcers, Multiple CVAs w residual weakness, HTN, HFpEF, & DLP who is admitted for assessment of encephalopathy, weakness and dyspnea. PLAN: 1 Encephalopathy Possibly due to worsening Lewy body dementia or ADR to Dialudid CT of the head, ammonia, PO2, PCO2, glucose & TSH are unrevealing Plan: admit to medical floor / frequent neurochecks / will ask the day time team to call his to obtain collateral information and consider additional imaging studies if indicated / hold his home dose of Dilaudid for now 2 Weakness Plan: check phosphorus (if low can cause weakness) / will ask the day time team to consult PT 3 Dyspnea Resolved Plan; monitor vitals 4 Chronic BLE ulcers He doesnt have SIRS therefore I dont think he has an infection Plan; will ask the day time team to consult for wound care recs in the morning 5 ESRD Had dialysis 2 days ago Plan: will ask the day time team to consult the Nephrology service in the morning 6 NIDDM A1C was 8.9 a few weeks ago Plan: diabetic diet / f/u accuchecks / hypoglycemia protocol / sliding scale insulin / hold oral anti-glycemics 7 Hx of severe Aortic stenosis s/p AVR Plan: f/u INR & c/w warfarin 8 Lewy Body dementia Plan: f/u w Neurologist as scheduled 10 Anemia of chronic disease Hg stable 11 hx of Multiple CVAs Plan: warfarin and ASA, allergic to statins 12 Chronic CAD s/p CABG Plan: c/w ASA & metoprolol, allergic to statins 13 PVD Plan: ASA 14 essential HTN // chronic HFpEF (grade 3) Plan: c/w metoprolol 15 Class 1 obesity Complicates care he has SIDNEY but doesnt use CPAP DVT n/a on Warfarin Dispo: home after at least 2 midnights stay His LACE Index Score is 7 points which indicates that he is at high risk for re- admission or within the next 30 days; a PFS consult has been placed for discharge planning. Home Medications Scheduled Aspirin (Aspirin EC) 81 Mg Tablet.dr, 81 MG PO DAILY Cholecalciferol (Vitamin D3) (Vitamin D3) 50 Mcg Capsule, 2,000 UNITS PO DAILY TAKES AT NOON Echinacea (Echinacea) 380 Mg Cap, 380 MG PO DAILY Glipizide (Glipizide) 10 Mg Tab, 10 MG PO DAILY Glipizide (Glipizide) 10 Mg Tablet, 5 MG PO QHS Metoprolol Tartrate (Metoprolol Tartrate) 50 Mg Tablet, 50 MG PO BID Nortriptyline HCl (Nortriptyline HCl) 10 Mg Capsule, 20 MG PO QHS Pantoprazole Sodium (Pantoprazole Sodium) 40 Mg Tablet.dr, 40 MG PO DAILY Polyethylene Glycol 3350 (Miralax) 119 Gm Powder, 17 GM PO QHS HOLD FOR DIARRHEA Pregabalin (Lyrica) 25 Mg Capsule, 25 MG PO BID Warfarin Sodium (Warfarin Sodium) 4 Mg Tablet, 4 MG PO [id number] SUN/SAT//SAT/SAT/SAT EVENINGS Warfarin Sodium (Warfarin Sodium) 4 Mg Tablet, 2 MG PO QWEEK SATURDAY EVENINGS Scheduled PRN Acetaminophen (Tylenol Extra Strength) 500 Mg Tablet, 1,000 MG PO Q6H PRN for MILD/MODERATE PAIN (PS 1-7) Ammonium Lactate (Ammonium Lactate) 12% Cream..g., 1 DOSE TOP DAILY PRN for DRY SKIN APPLY TO FEET Hydromorphone HCl (Dilaudid) 2 Mg Tablet, 2 MG PO Q4H PRN for SEVERE PAIN (PS 8- 10) Allergies Coded Allergies: Leopold (Verified Allergy, Severe, ANAPHYLAXIS, 11/09/14) Penicillins (Verified Allergy, Severe, Anaphylaxis, 02/17/20) HAS RECEIVED 2nd & 3RD GEN CEPHALOSPORINS w/o PROBLEM metformin (Verified Allergy, Severe, Tongue swelling, 07/02/18) Upnqxxs-Scy-Jnv Reductase Inhibitor (Verified Adverse Reaction, Intermediate, Altered Mental Status, 07/02/18) codeine (Verified Adverse Reaction, Mild, "out of it". , 02/17/20) mixed with guifenasin duloxetine (Unverified Adverse Reaction, Mild, Nausea and vomiting, 07/02/18) clindamycin (Verified Adverse Reaction, Unknown, DIARRHEA, 02/29/20) A-FIB/CHADSVASC A-FIB History Current/History of A-Fib/PAF?: No Current PO Anticoag Therapy: No PEDRO VASQUEZ MD Dec 14, 2020 21:48
[2020-12-14] MEDS ORDERED: METO50TA7 PO (22:09)
[2020-12-14] MEDS ORDERED: DILA2TAB6 PO (22:09)
[2020-12-14] MEDS ORDERED: PREG25CA PO (22:09)
[2020-12-14] MEDS ORDERED: GLIP10TA6 PO (22:09)
[2020-12-14] MEDS ORDERED: ASPI-161 PO (22:09)
[2020-12-14] MEDS ORDERED: NORT10CA2 PO (22:09)
[2020-12-14] MEDS ORDERED: PANT40TA29 PO (22:10)
[2020-12-14] MEDS ORDERED: HOME MED LIST COMPLETE! XX SCH (22:10)
[2020-12-14 22:16] LABS: ABG BASE EXCESS -5.2 (-2.0-2.0); ABG HCO3 17.9 MEQ/L (22.0-26.0); ABG O2 SATURATION 97.3 % (95.0-99.0); ABG PARTIAL PRESSURE CO2 27.4 mmHg (35.0-45.0); ABG PARTIAL PRESSURE O2 95.4 mmHg (75.0-100.0); ABG STANDARD HCO3 20.1 MEQ/L (22.0-26.0); ABG TOTAL CO2 18.8 MEQ/L (23.0-31.0); ABG pH (ARTERIAL) 7.434 UNITS (7.350-7.450)
[2020-12-14 23:12] LABS: INR 3.08; PROTHROMBIN TIME 32.1 SECONDS (12.7-14.5)
[2020-12-14 23:13] LABS: PARTIAL THROMBOPLASTIN TIME 75.2 SECONDS (25.9-37.0)
[2020-12-14] MEDS: METOPROLOL TART 50 MG TAB PO SCH (23:55)
[2020-12-15] MEDS ORDERED: GLUCAGON INJ 1MG VIAL SC PRN (00:40)
[2020-12-15] MEDS ORDERED: GLUCOSE 4GM CHEW TABLET PO PRN (00:40)
[2020-12-15] MEDS ORDERED: DEXTROSE 50% 50 ML SYRINGE IV PRN (00:40)
[2020-12-15] MEDS ORDERED: LACTIC ACID 12% LOTION 225 GM BTL TOP PRN (00:40)
[2020-12-15 02:00] VITALS: BP 124/71
[2020-12-15] MEDS: HumaLOG INSULIN (NovoLOG) PER UNIT SC SCH ×5 (02:29→21:00)
[2020-12-15] MEDS: NORTRIPTYLINE 10 MG CAP PO SCH ×2 (03:10→21:18)
[2020-12-15] MEDS: MIRALAX *UNIT DOSE* 17GM PACKET PO SCH ×2 (03:24→21:19)
[2020-12-15] MEDS: PREGABALIN 25 MG CAP (LYRICA) PO SCH ×2 (03:25→08:26)
[2020-12-15 06:00] VITALS: BP 122/64
--- NOTE | 2020-12-15 06:22 | ECGEPIP ---
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: CAMILLE : 1945 Requested By: JOCELYNE ZAMORA Order Number: [id number] Reading MD: Geoffrey Christensen Measurements Intervals [place] Rate: 86 P: 74 UT: 186 QRS: -57 QRSD: 114 T: 104 QT: 406 QTc: 485 Interpretive Statements Sinus rhythm with occasional premature ventricular complexes Left axis deviation Minimal voltage criteria for LVH, may be normal variant ( Sheng product ) Inferior infarct , age undetermined Possible Anterior infarct , age undetermined ST & T wave abnormality, consider lateral ischemia SIMILAR TO 10/22/20 Electronically Signed on 12-15-2020 6:22:08 EDT by Geoffrey Christensen
[2020-12-15 08:05] LABS: HEMATOCRIT 28.1 % (42.0-52.0); MEAN CORPUSCULAR HEMOGLOBIN 33.6 pg (27.0-33.0); MEAN CORPUSCULAR VOLUME 104.9 fl (80.0-96.0); PLATELET COUNT, AUTOMATED 183 10^3/uL (150-450); RED BLOOD COUNT 2.68 10^6/uL (4.30-6.10); WHITE BLOOD COUNT 11.9 10^3/uL (4.0-10.0)
[2020-12-15] MEDS: ASPIRIN 81MG ENTERIC TABLET PO SCH (08:26)
[2020-12-15] MEDS: PANTOPRAZOLE 40MG TAB (PROTONIX) PO SCH (08:26)
[2020-12-15] MEDS: METOPROLOL TART 50 MG TAB PO SCH ×2 (08:26→21:18)
[2020-12-15 08:28] LABS: CALCIUM LEVEL 8.3 MG/DL (8.8-10.2); CREATININE FOR GFR 4.54 MG/DL (0.70-1.30); GLOMERULAR FILTRATION RATE 13.5 (>42); PHOSPHORUS LEVEL 5.9 MG/DL (2.5-4.9); POTASSIUM SERUM 3.9 MEQ/L (3.5-5.1)
--- NOTE | 2020-12-15 08:49 | IPNPDOC ---
Subjective Date Seen The patient was seen on 12/15/20. Subjective Chief Complaint/HPI This is a 75 y/o male with a pmh of lewy body dementia, esrd on TTHS dialysis, niddm, cad s/p cabg, aortic stenosis s/p avr on warfarin, pvd, multiple cva's, htn, HFpEF, pulm htn, and gloria who reported to our ED yesterday 12/14 with a cc of altered mental status, weakness and sob. Patient was briefly placed on supplemental o2 in the ED yesterday but was quickly weaned down to RA. Today, patient is rather confused and not a reliable source of history. Patient tells me that he has been being moved from room to room and everytime he wakes up he is somewhere different. Patient tells me that he knows he is in the hospital but is not sure how he got here or how long that he has been here. Patient nods off towards the end of my exam despite my verbal stimuli. Patient tells me he is in no pain. I was able to speak with patient's , Jose F ([phone]), who tells me that she believes that patient began to become altered several days ago while he was still in our acute rehab unit. states that she noticed he began to have a hard time operating his cell phone and had issues focusing on conversation. states that once home, patient began to have visual hallucinations and a markedly decreased appetite. states that she is concerned by this because in times past he has had hallucinations, but only briefly. states that these hallucinations have lasted for days. General: Reports: ROS Unobtainable Objective Physical Examination General Exam: Positive: No Acute Distress; Negative: Alert Eye Exam: Positive: Conjunctiva & lids normal, EOMI, Sclera icteric ENT Exam: Positive: Atraumatic, Mucous membr. moist/pink Chest Exam: Positive: Clear to auscultation, Rhonchi, Wheezing (scattered) Heart Exam: Positive: Rate Normal; Negative: Murmurs, Rubs Abdomen Exam: Positive: Soft; Negative: Tenderness Extremity Exam: Negative: Clubbing, Cyanosis, Edema Skin Exam: Positive: Other skin issue (many small wounds of the b/l lower extremities. no appreciable drainage. the b/l fifth toes have been surgically amputated) Neuro Exam: Positive: Normal Speech Psych Exam: Negative: Mental status NL, Oriented x 3 (oriented to person and place) Assessment /Plan Assessment This is a 75 y/o male with a pmh of lewy body dementia, esrd on TTHS dialysis, niddm, cad s/p cabg, aortic stenosis s/p avr on warfarin, pvd, multiple cva's, htn, HFpEF, pulm htn, and gloria who reported to our ED yesterday 12/14 with a cc of altered mental status, weakness and sob. Patient was briefly placed on supplemental o2 in the ED yesterday but was quickly weaned down to RA. Plan/VTE VTE Prophylaxis Ordered?: Yes Plan 1. Encephalopathy - potentially drug induced vs. occult infection - patient was on gabapentin and dilaudid at home, this was dc'ed upon admission. I have also dc'ed patients pregabalin this am - Patients wbc trended up from 10 yesterday to almost 12 today - blood cultures drawn - will give one dose of iv vanco while we await preliminary blood culture results 2. ESRD - Dr. Mora Mckeon, nephrology, has been consulted for assistance in management of esrd and dialysis. Assistance greatly appreciated 3. Dyspnea - patient saturating fine on RA - will monitor continuous pulse ox 4. Chronic b/l LE ulcers - wound care consult placed - no appreciable purulence of obvious erythema on exam this am 5. NIDDM - will recheck a1c - patient had episode of hypoglycemia this am - achs fingersticks and sliding scale coverage - hypoglycemic protocol 6. Aortic stenosis s/p avr with bioprosthetic valve - pt on warfarin - daily inr 7. Lewy Body dementia - monitor sx, patient may need sitter if he begins to become agitated 8. Hx of multiple cva's - pt on warfarin - continue asa 9. CAD s/p CABG - continue metoprolol 10. HTN - metoprolol, as stated 11. PVD - pt on asa, as stated 12. HFpEF - pt bnp is >4000, however is not clinically volume overloaded - monitor DVT prophylaxis - pt on warfarin Disposition Pending clinical improvement VS, I&O, 24H, Fishbone Vital Signs/I&O Vital Signs Date Time Temp Pulse Resp B/P (MAP) Pulse Ox O2 Delivery O2 Flow Rate FiO2 12/15/20 08:26 82 126/71 12/15/20 06:00 98.6 18 97 Room Air I&O- Last 24 Hours up to 6 AM 12/15/20 06:00 Intake Total 0 ml Output Total 0 ml Balance 0 ml Laboratory Data 24H LABS Laboratory Tests 2 12/14/20 16:16: Anion Gap 10, Glomerular Filtration Rate 14.0L, Calcium Level 7.9L, Total Bilirubin 0.6, Direct Bilirubin 0.3H, Aspartate Amino Transf (AST/SGOT) 13, Alanine Aminotransferase (ALT/SGPT) 7L, Alkaline Phosphatase 133H, Total Creatine Kinase 46, Creatine Kinase MB 3.5, Creatine Kinase MB Relative Index 7.61H, Troponin I 0.02, JY-[id number]-Type Natriuretic Peptide 4486H, Total Protein 7.4, Albumin 2.5L, Albumin/Globulin Ratio 0.5, Thyroid Stimulating Hormone (TSH) 2.100, Thyroxine (T4) 6.7 12/14/20 16:17: Immature Granulocyte % (Auto) 0.9, Neutrophils (%) (Auto) 80.3H, Lymphocytes (%) (Auto) 8.2L, Monocytes (%) (Auto) 8.6H, Eosinophils (%) (Auto) 1.6, Basophils (%) (Auto) 0.4, Neutrophils # (Auto) 8.5, Lymphocytes # (Auto) 0.9L, Monocytes # (Auto) 0.9H, Eosinophils # (Auto) 0.2, Basophils # (Auto) 0.0, Nucleated Red Blood Cells % (auto) 0.0 12/14/20 16:29: Coronavirus (COVID-19)(PCR) NEGATIVE, Influenza Type A (RT-PCR) NEGATIVE, Influenza Type B (RT-PCR) NEGATIVE, Respiratory Syncytial Virus (PCR) NEGATIVE 12/14/20 18:42: Urine Color PHOEBE, Urine Appearance HAZY, Urine pH 5.0, Urine Specific [place] 1.019, Urine Protein 2+H, Urine Glucose (UA) NEGATIVE, Urine Ketones NEGATIVE, Urine Blood 1+H, Urine Nitrite NEGATIVE, Urine Bilirubin NEGATIVE, Urine Urobilinogen 0.2, Urine Leukocyte Esterase NEGATIVE, Urine WBC (Auto) 3, Urine RBC (Auto) 0, Urine Hyaline Casts (Auto) 0, Urine Bacteria (Auto) NEGATIVE, Urine Squamous Epithelial Cells 0, Urine Mucus (Auto) SMALL, Urine Sperm (Auto) 12/14/20 21:22: Prothrombin Time 32.1H, Prothromb Time International Ratio 3.08, Activated Partial Thromboplast Time 75.2H 12/14/20 22:00: Ammonia 22, Troponin I 0.02 12/14/20 22:10: Blood Gas Bicarbonate Standard 20.1L, Arterial Blood pH 7.434, Arterial Blood Partial Pressure CO2 27.4L, Arterial Blood Partial Pressure O2 95.4, Arterial Blood Total CO2 18.8L, Arterial Blood HCO3 17.9L, Arterial Blood Base Excess - 5.2L, Arterial Blood Oxygen Saturation 97.3 12/15/20 02:26: Bedside Glucose (Misc Panel) 79L 12/15/20 07:25: Bedside Glucose (Misc Panel) 48L 12/15/20 07:37: Nucleated Red Blood Cells % (auto) 0.0, Anion Gap 10, Glomerular Filtration Rate 13.5L, Calcium Level 8.3L, Phosphorus Level 5.9H 12/15/20 08:12: Bedside Glucose (Misc Panel) 68L CBC/BMP Laboratory Tests 12/14/20 16:16 12/14/20 16:17 12/15/20 07:37 GURJIT TAMEZ Dec 15, 2020 08:49
[2020-12-15] MEDS ORDERED: SODIUM CHLORIDE 0.9% 1000ML IV PRN (12:45)
[2020-12-15] MEDS ORDERED: VANCOMYCIN HCL 1,000 MG, VIAL MATE ADAPTER 1 EACH in NS 250 ML IV ONE (13:00)
[2020-12-15 13:54] LABS: HEMOGLOBIN A1c 7.6 %
[2020-12-15] MEDS: DARBEPOETIN 100 MCG/0.5 ML *DIALYSIS* SYRINGE (J0882) IV SCH (15:56)
--- NOTE | 2020-12-15 16:37 | CR ---
CONSULTATION DATE: 12/15/2020 REQUESTING PHYSICIAN: Kristen Rubio MD REASON FOR CONSULTATION: Management of end-stage renal disease on hemodialysis. HISTORY OF PRESENT ILLNESS: Mr. Pabon is previously known to me. He is a 75-year-old male with a past medical history of end-stage renal disease who very recently started hemodialysis on his last admission to [facility] and has not yet had a first outpatient hemodialysis treatment, also history of anemia of chronic renal failure, noninsulin dependent diabetes mellitus, a history of severe aortic stenosis, status post aortic valve replacement on chronic Coumadin, significant peripheral arterial disease, chronic bilateral lower extremity ulcers, Lewy body dementia and other comorbid conditions mentioned below. The patient was recently discharged from the acute inpatient rehabilitation unit on December 13 and the patient was only home for one day prior to back to the emergency room on December 14. He was brought to the emergency room because of confusion and altered mental status and hallucinations which were concerning to his . The patient was seen and examined this morning at the bedside and he was found to be altered. He was telling me that he was by a choudhury and that there was [place] soldier present and history was obtained from chart review and discussion with his other care providers. PAST MEDICAL AND PAST SURGICAL HISTORY: 1. End-stage renal disease recently and is treated on dialysis on a Saturday, , Saturday schedule. 2. Status post Permacath placement. 3. Lewy body dementia. 4. Anemia of chronic disease. 5. Noninsulin dependent diabetes mellitus. 6. Coronary artery disease, status post CABG. 7. History of severe aortic stenosis, status post aortic valve replacement on chronic Coumadin. 8. Peripheral arterial disease, status post multiple angiograms. 9. Chronic bilateral lower extremity ulcers. 10. History of multiple CVAs with residual right-sided weakness. 11. Hypertension. 12. Diastolic congestive heart failure. 13. Pulmonary hypertension. 14. Dyslipidemia. 15. Obstructive sleep apnea. 16. Sciatica. 17. History of back surgery. 18. Osteoporosis. 19. History of PEG tube placement with subsequent reversal. 20. 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 21. Bilateral cataract surgery. 22. History of melanoma. 23. Left fifth toe amputation. 24. Right fifth toe amputation. 25. Depression. FAMILY HISTORY: Significant for heart disease in both of his parents. SOCIAL HISTORY: He is , lives with spouse. He is a never smoker, no alcohol or drug use. ALLERGIES: PENICILLIN, METFORMIN, CRESTOR, ATORVASTATIN, CYMBALTA, LOVASTATIN. HOME MEDICATIONS: 1. Tylenol p.r.n. 2. Citalopram 20 mg, take a tablet everyday. 3. Glipizide 10 mg in the morning, 5 mg in the evening. 4. Iron tablet. 5. Metoprolol one tablet b.i.d. 50 mg. 6. Torsemide 40 mg in the morning, 20 mg in the afternoon. 7. Coumadin as directed. REVIEW OF SYSTEMS: Unable to obtain secondary to patient's clinical condition. PHYSICAL EXAMINATION: Vital signs: Temperature 98.5, pulse 86, respiratory rate 18, blood pressure 122/64, saturating 97% on room air. Weight in the bed scale today is 103 kg. General: Patient is seen lying in bed sleeping but he did arouse with verbal and tactile stimulus. He was able to tell me his full name but could not tell me his date of . The patient thought he was at a sabinal and did not recognize me as a physician. HEENT: Tongue was moist. Neck was supple. Jugular veins were not elevated. There is a Port-A-Cath present in the right internal jugular vein. Heart: Heart sounds show a murmur. There are dressings on the lower extremities and probably about 1+ edema. Lungs show symmetric and clear air movement. Abdomen: Soft and nontender. Neurologic: Patient is oriented only to self. He does follow some simple commands. He is hallucinating. LABORATORY DATA: White count 11.9, hemoglobin 9.0, platelets 183. Sodium 137, potassium 3.9, bicarbonate 21, BUN 69. Glucose was only 48 on this morning's chemistry but repeat glucose done shortly thereafter was up to 130. Phosphorus 5.9. BNP 4500. Urinalysis shows negative for nitrites, negative for leukocyte esterase and negative for bacteria. Microbiology: Blood cultures pending. IMAGING: Chest x-ray done yesterday shows a permacath present and some vascular congestion as well. Head CT done yesterday shows no acute abnormalities. INPATIENT MEDICATIONS: 1. Vancomycin 1 gm IV x1 to be given postdialysis. 2. Tylenol p.r.n. 3. Mylanta 30 mL p.o. daily. 4. Aspirin 81 mg p.o. daily. 5. Insulin. 6. Metoprolol 50 mg p.o. b.i.d. 7. Nortriptyline 20 mg p.o. q.h.s. 8. Protonix 40 mg p.o. daily. 9. Coumadin as directed. 10. Miralax one packet p.o. q.h.s. PROBLEMS: 1. End-stage renal disease on hemodialysis. The patient was very recently initiated on hemodialysis on his last admission to [facility]. He has not yet had any outpatient hemodialysis treatments although he is set up for outpatient dialysis on a Saturday, , Saturday schedule. He is going to be dialyzed today with 1 to 1.5 liter of fluid for goal removal. I have requested a one-to-one sitter while he is being dialyzed because the patient is not at baseline mentation and appears to be hallucinating. His chest x-ray showed some pulmonary vascular congestion but patient is saturating well on room air and I will only try to remove around 1 to 1.5 liters as tolerated by the hemodynamics. 2. Altered mental status. Etiology is unclear. The patient does have a history of Lewy body dementia. However, when I saw him very recently when he was in the rehabilitation unit on December 13, he was oriented and appropriate and was not hallucinating at that time. His ammonia level was negative. CT, head also did not show any acute findings. Urinalysis was also negative for UTI. Further workup and management is by the primary team. At least for today we will have a one-to-one sitter with hemodialysis given the patient's encephalopathy. I agree with stopping his pregabalin. He is also going to get a dose of vancomycin x1 post-dialysis while we await preliminary blood culture results. 3. Peripheral arterial disease with chronic bilateral lower extremity ulcers. I did not remove the dressings to examine his legs. Wound care consult is pending. Mild leukocytosis is noted on blood work. 4. Noninsulin dependent diabetes mellitus. Patient did have hypoglycemia this morning with glucose down to 48. Insulin is being adjusted by the primary service. Patient may be having poor oral intake at this time given his hallucinations and altered mental status. 5. Aortic stenosis, status post valve replacement with bioprosthetic valve. Coumadin status as per primary team. 6. Chronic diastolic congestive heart failure. Patient has pulmonary vascular congestion on chest x-ray but he is saturating well on room air. I think he is probably having decreased oral intake as he is altered. He was hypoglycemic early this morning. We are only going to try and remove 1 to 1.5 liters with dialysis as tolerated by hemodynamics. Thank you for involving me in the care of Mr. Pabon. I will be happy to follow him along with you.
[2020-12-15] MEDS ORDERED: WARFARIN SOD 4MG TAB PO SCH (17:00)
[2020-12-15 22:00] VITALS: BP 128/70
[2020-12-16 06:00] VITALS: BP 134/66
[2020-12-16] MEDS: HumaLOG INSULIN (NovoLOG) PER UNIT SC SCH ×5 (07:30→21:00)
[2020-12-16] MEDS: METOPROLOL TART 50 MG TAB PO SCH ×2 (09:11→21:21)
[2020-12-16] MEDS: ASPIRIN 81MG ENTERIC TABLET PO SCH (09:11)
[2020-12-16] MEDS: PANTOPRAZOLE 40MG TAB (PROTONIX) PO SCH (09:12)
[2020-12-16 10:27] LABS: HEMOGLOBIN 9.6 g/dl (13.5-17.5); MEAN CORPUSCULAR HEMOGLOBIN 33.2 pg (27.0-33.0); MEAN CORPUSCULAR VOLUME 103.8 fl (80.0-96.0); PLATELET COUNT, AUTOMATED 198 10^3/uL (150-450); RED BLOOD COUNT 2.89 10^6/uL (4.30-6.10); WHITE BLOOD COUNT 8.7 10^3/uL (4.0-10.0)
[2020-12-16 10:35] LABS: INR 1.98; PROTHROMBIN TIME 22.9 SECONDS (12.7-14.5)
--- NOTE | 2020-12-16 10:38 | IPN ---
PROGRESS NOTE DATE: 12/16/2020 SUBJECTIVE: The patient is seen [facility], history of Lewy-Body dementia and endstage renal disease, aortic stenosis status post aortic valve replacement on warfarin therapy, history of pulmonary hypertension, congestive heart failure with preserved ejection fraction and sleep apnea. He was admitted with altered mental status. It was felt to be due to medication excess including Gabapentin, Lyrica and Dilaudid. He has multiple stasis ulcers of his lower extremities, particularly his left foot, Wound Center has been consulted. OBJECTIVE: Afebrile. Vital signs are stable. Lungs are clear. Heart: Regular rhythm. Abdomen is soft, nontender. No peripheral edema. General appearance: He is lying in bed sleeping. He arose to verbal stimulation but then fell back asleep. LABS: White count 11.9, hemoglobin 9, platelets are 183,000, sodium 137, potassium 3.9, BUN 69, creatinine 4.5. Glucose 177, hemoglobin A1c 7.6% (those are all labs from yesterday). Labs ordered for today are not back yet. It is 9:56 in the morning and they are not back. IMPRESSION: 1. Altered mental status with presumed metabolic encephalopathy from medications, hopefully these will be dialyzed away. 2. Endstage renal disease, Nephrology has been consulted. 3. Bilateral lower extremity ulcers, wound care consult has been placed. 4. Diabetes, under adequate control, concerning underlying dementia and other medical issues. 5. Status post bioprosthetic aortic valve, on warfarin, daily INRs have been ordered. 6. Lewy-Body dementia. He hallucinates from the Lewy-Body dementia, typically these are short duration. 7. Hypertension, continue current regimen. 8. Congestive heart failure with preserved ejection fraction, he is compensated on exam today.
[2020-12-16 11:04] LABS: CALCIUM LEVEL 8.4 MG/DL (8.8-10.2); CREATININE FOR GFR 3.61 MG/DL (0.70-1.30); GLOMERULAR FILTRATION RATE 17.6 (>42); POTASSIUM SERUM 4.7 MEQ/L (3.5-5.1)
[2020-12-16 14:00] VITALS: BP 139/71
[2020-12-16] MEDS ORDERED: WARFARIN SOD 4MG TAB PO SCH (17:00)
[2020-12-16] MEDS: MIRALAX *UNIT DOSE* 17GM PACKET PO SCH ×2 (21:00→21:20)
[2020-12-16] MEDS: NORTRIPTYLINE 10 MG CAP PO SCH (21:20)
[2020-12-16] MEDS: ACETAMINOPHEN TAB 650MG DOSE (2X325MG) PO PRN (21:21)
[2020-12-16 22:00] VITALS: BP 120/64
[2020-12-17 06:00] VITALS: BP 129/72
[2020-12-17] MEDS: PANTOPRAZOLE 40MG TAB (PROTONIX) PO SCH (06:33)
[2020-12-17] MEDS: ASPIRIN 81MG ENTERIC TABLET PO SCH (06:33)
[2020-12-17] MEDS: METOPROLOL TART 50 MG TAB PO SCH ×2 (06:34→21:00)
[2020-12-17 06:49] LABS: HEMATOCRIT 28.9 % (42.0-52.0); HEMOGLOBIN 9.4 g/dl (13.5-17.5); MEAN CORPUSCULAR HEMOGLOBIN 33.8 pg (27.0-33.0); MEAN CORPUSCULAR HGB CONC 32.5 g/dl (32.0-36.5); PLATELET COUNT, AUTOMATED 201 10^3/uL (150-450); RED BLOOD COUNT 2.78 10^6/uL (4.30-6.10); WHITE BLOOD COUNT 8.9 10^3/uL (4.0-10.0)
[2020-12-17 07:00] LABS: INR 1.77
[2020-12-17 07:18] LABS: CALCIUM LEVEL 8.3 MG/DL (8.8-10.2); CREATININE FOR GFR 4.08 MG/DL (0.70-1.30); GLOMERULAR FILTRATION RATE 15.3 (>42); POTASSIUM SERUM 4.1 MEQ/L (3.5-5.1)
[2020-12-17] MEDS ORDERED: SODIUM CHLORIDE 0.9% 1000ML IV PRN (07:50)
[2020-12-17] MEDS: HumaLOG INSULIN (NovoLOG) PER UNIT SC SCH ×4 (07:58→20:28)
--- NOTE | 2020-12-17 10:59 | IPN ---
PROGRESS NOTE DATE: 12/17/2020 SUBJECTIVE: [facility]. His feet are now dressed. Wound clinic has been consulted. His mental status seems a little better than yesterday, but I do not know his baseline. Denies any chest pain or shortness of breath. PHYSICAL EXAMINATION: 129/72, afebrile. Saturation 95%. He is alert, answers questions. Lungs: Clear. Heart: Regular rate and rhythm with 2/6 systolic ejection murmur. Abdomen: Soft, nontender, no masses. He has a baseline tremor. IMPRESSION: Altered mental status, probably toxic metabolic encephalopathy from medications, which are slowly being cleared. End-stage renal disease on dialysis Saturday, , Saturday, status post permacath placement. Nephrology is following him for this. Lewy body dementia. This seems to be an ongoing problem. Peripheral arterial disease with chronic lower extremity ulcers, treatment per wound center. History of severe aortic stenosis, status post aortic valve replacement. He is on daily warfarin. His INR was sub-therapeutic. I have adjusted his warfarin dose.
[2020-12-17] MEDS: ACETAMINOPHEN TAB 650MG DOSE (2X325MG) PO PRN ×2 (11:20→17:30)
[2020-12-17] MEDS: SANTYL OINT 30GM TOP SCH (13:01)
[2020-12-17 14:00] VITALS: BP 103/64
--- NOTE | 2020-12-17 14:50 | IPN ---
PROGRESS NOTE DATE: 12/17/2020 SUBJECTIVE: Mr. Bernard is seen and examined this morning in the hemodialysis unit receiving his maintenance treatment. He offers no complaints. Reports he is eating and drinking without any issue. Denies any shortness of breath. Denies any worsening pain in his legs. Dialysis has been uneventful. PHYSICAL EXAMINATION: VITAL SIGNS: Temperature 98.0, pulse 75, respiratory rate 18, blood pressure 129/72, saturating 95% on room air. INTAKE/OUTPUT: Intake yesterday was not fully recorded. Dialysis today removed 1.5 liters. GENERAL: Patient is seen awake, alert, oriented to person, place and situation, in no distress. Answers simple questions appropriately. HEENT: Extraocular muscles are intact. Tongue is moist. Neck is supple. Jugular veins were not elevated. A tunneled hemodialysis catheter is in use. HEART: Heart sounds are regular. There is a systolic murmur. There is no edema. There are dressings on his legs where his ulcers are. LUNGS: Clear to auscultation. No crackle or rale. ABDOMEN: Soft and nontender. LABORATORY DATA: Labs today show white count 8.9, hemoglobin 9.4, platelets 201,000. Sodium 136, potassium 4.1, bicarbonate 21, Blood culture shows no growth for 48 hours. INPATIENT MEDICATIONS: Reviewed by myself. His Coumadin was adjusted by the primary team. Other medications are unchanged as compared to yesterday. PROBLEMS: 1. End-stage renal disease on hemodialysis on a Saturday, , Saturday schedule: Patient has not yet had a first time outpatient hemodialysis treatment. He only stayed out of the hospital for about one day before being readmitted. He is dialyzed today with 1.5 liters of fluid removed. His electrolytes and volume status are acceptable. His next dialysis will be on Saturday. 2. Anemia related to chronic inflammatory state iron deficiency and chronic renal failure: Iron panel noted with transferrin saturation of 19% and iron level of 31. Venofer is ordered with dialysis. He is on Aranesp as well for goal hemoglobin of 10 to 11. 3. Chronic diastolic congestive heart failure: Volume status is regulated via dialysis; 1.5 liters were removed today and patient is fairly well compensated on exam. 4. Aortic stenosis: Status post bioprosthetic aortic valve replacement. INR was subtherapeutic and Coumadin was adjusted by the primary team. 5. Status post altered mental status: Patient was not hallucinating when I saw him yesterday, December 16 and again today December 17. His mentation seems to be back to baseline and his pregabalin was stopped on this admission. His blood cultures were negative. 6. Hypertension: Blood pressures are well controlled and no change is being made to the chronic antihypertension regimen he is on Metoprolol. There is no reported hypotension of hemodialysis.
[2020-12-17] MEDS: WARFARIN SOD 4MG TAB PO SCH (17:29)
--- NOTE | 2020-12-17 19:15 | IPNPDOC ---
Text Note Date of Service The patient was seen on 12/16/20. NOTE SUBJECTIVE: Pt laying in the bed, looks comfortable however in a manic state . Answered all the questions appropriately .AOX3. PHYSICAL EXAMINATION: GENERAL: Patient is awake, alert, oriented times three. HEAD AND NECK EXAM: Extraocular muscles intact. Pupils equally round and reactive to light. Mucous membranes are moist. Neck is supple. He has a tunneled hemodialysis catheter. CARDIOVASCULAR: S1, S2. Regular rate. Trace edema of the bilateral lower extremities. RESPIRATORY: Chest is clear to auscultation bilaterally. Bilateral equal air entry. No rales or rhonchi. ABDOMEN: Soft. Positive bowel sounds. Nontender. No organomegaly MUSCULOSKELETAL: Patient has ulcers on B/L feet. Look to be healing with no evidence of infection. CENTRAL NERVOUS SYSTEM (FINANCIAL REPORTING ACCOUNTANT): No focal deficit. Power is 5/5 in all extremities. ASSESSMENT AND PLAN: Patient is a 75-year-old male with a past medical history of coronary artery disease s/p coronary artery bypass grafting, severe aortic stenosis s/p AVR on Coumadin, atrial fibrillation, chronic systolic and diastol ic congestive heart failure, chronic kidney disease stage IV, diabetes mellitus type 2, peripheral artery disease, pulmonary hypertension, Lewy body dementia, cerebrovascular accident, dysphagia, bilateral lower extremity arterial ulcers who is being seen by nephrology service for hemodialysis started during his hospital course due to worsening kidney function. ASSESSMENT AND PLAN: 1. End-stage renal disease on hemodialysis on a Saturday, , Saturday: He will be dialyzed tomorrow His electrolytes and volume status are acceptable. 2. Anemia due to chronic renal failure: Iron panel done with transferrin saturation of 19% and iron level of 31. He is on Aranesp as well for goal hemoglobin of 10 to 11. 3. Chronic diastolic congestive heart failure: Maintain a fluid restriction of 1800ml. Continue monitoring I's and O's 4. Status post altered mental status: Resolved. His mentation seems to be back to baseline and his pregabalin was stopped on this admission. His blood cultures were negative. 6. Hypertension: Blood pressures are well controlled. He continues to be on Metoprolol. VS,Fishbone, I+O VS, Fishbone, I+O Laboratory Tests 12/17/20 06:10 Vital Signs Date Time Temp Pulse Resp B/P (MAP) Pulse Ox O2 Delivery O2 Flow Rate FiO2 12/17/20 14:00 97.1 75 19 103/64 (77) 98 Room Air I&O- Last 24 Hours up to 6 AM 12/17/20 06:00 Intake Total 460 ml Output Total 0 ml Balance 460 ml GME ATTESTATION GME ATTESTATION My faculty preceptor for this patient encounter was physically present during the encounter and was fully available. All aspects of the patient interview, examination, medical decision making process, and medical care plan development were reviewed and approved by the faculty preceptor. The faculty preceptor is aware and concurs with the plan as stated in the body of this note and will attest to such by his/her cosignature. Breezy Sterling MD Dec 17, 2020 19:10
[2020-12-17] MEDS: MIRALAX *UNIT DOSE* 17GM PACKET PO SCH (21:00)
[2020-12-17] MEDS: NORTRIPTYLINE 10 MG CAP PO SCH (21:09)
[2020-12-17 22:00] VITALS: BP 102/60
[2020-12-18] MEDS: ACETAMINOPHEN TAB 650MG DOSE (2X325MG) PO PRN ×3 (02:44→14:13)
[2020-12-18 05:01] LABS: HEMATOCRIT 30.4 % (42.0-52.0); MEAN CORPUSCULAR HGB CONC 32.9 g/dl (32.0-36.5); MEAN CORPUSCULAR VOLUME 103.4 fl (80.0-96.0); PLATELET COUNT, AUTOMATED 218 10^3/uL (150-450); RED BLOOD COUNT 2.94 10^6/uL (4.30-6.10)
[2020-12-18 05:16] LABS: INR 1.73; PROTHROMBIN TIME 20.7 SECONDS (12.7-14.5)
[2020-12-18 05:29] LABS: CALCIUM LEVEL 7.8 MG/DL (8.8-10.2); CREATININE FOR GFR 3.4 MG/DL (0.70-1.30); GLOMERULAR FILTRATION RATE 18.9 (>42)
[2020-12-18 06:00] VITALS: BP 127/59
[2020-12-18] MEDS: ASPIRIN 81MG ENTERIC TABLET PO SCH (09:01)
[2020-12-18] MEDS: PANTOPRAZOLE 40MG TAB (PROTONIX) PO SCH (09:01)
[2020-12-18] MEDS: HumaLOG INSULIN (NovoLOG) PER UNIT SC SCH ×4 (09:01→20:47)
[2020-12-18] MEDS: METOPROLOL TART 50 MG TAB PO SCH ×2 (09:05→20:48)
[2020-12-18] MEDS: CEFTAROLINE FOSAMIL 200 MG in D5W 50 ML IV SCH (12:49)
[2020-12-18 14:00] VITALS: BP 125/70
--- NOTE | 2020-12-18 16:36 | IPN ---
PROGRESS NOTE DATE: 12/18/2020 SUBJECTIVE: Newton is seen in [facility] [place]. Nursing staff pointed out that his right lower extremity ischemic ulcer is now increasingly erythematous. He has Lewy body dementia. His visual hallucinations have been worse at night. He has end-stage renal disease and gets dialysis three days a week. Dr. Tafoya saw him as an outpatient between his admissions and I think that intervention is planned for right lower extremity arterial insufficiency. PHYSICAL EXAMINATION: Afebrile, vital signs stable, 140/77. General appearance: He is lying in bed. He is alert, has a tremor. Lungs: Clear. Heart: Regular rhythm. Abdomen: Soft, nontender. Extremities: Decreased pulse in both feet. Scattered ulcerations both lower extremities including on the toes. Right lower extremity ulceration looks larger and there increased room of erythema surrounding it, clear exudate. LABORATORY DATA: Sodium 136, potassium 4, BUN 30, creatinine 3.4, glucose 188. White count up to 11, hemoglobin 10, platelets 218,000. INR 1.7. IMPRESSION: 1. Arterial ulcer right lower extremity: I am starting Ceftaroline; dose adjusted for renal function. Will ask Dr. Mcclure to view these wounds and work on wound care with us tomorrow. 2. Peripheral arterial disease with arterial ischemic ulcer right lower extremity: Tomorrow I will consult Dr. Tafoya to see him. I am skeptical this is going to heal without intervention on his arterial stenoses. 3. End-stage renal disease: He gets dialysis Saturday, , Saturday, status post Permacath placement. Nephrology is following him. 4. Lewy body dementia: This is an ongoing problem. I called his , Arlene, both yesterday and today. We had long discussions. She is concerned about the hallucinations. I indicated that certainly his acute illness can make these worse, but one of the features of Lewy body dementia is progressively worsening and frequent visual hallucinations. Hopefully this is not his new baseline, but at this point she needs to be open to that possibility. 5. History of severe stenosis; status post aortic valve replacement: On daily Warfarin, INR is still a little low. We will increase the dose of Warfarin tomorrow, still not therapeutic. As noted above; telephone call to his yesterday and today.
[2020-12-18] MEDS: WARFARIN SOD 4MG TAB PO SCH (17:16)
[2020-12-18] MEDS: NORTRIPTYLINE 10 MG CAP PO SCH (20:49)
[2020-12-18] MEDS: MIRALAX *UNIT DOSE* 17GM PACKET PO SCH ×2 (20:49→21:00)
--- NOTE | 2020-12-18 21:10 | IPN ---
PROGRESS NOTE DATE: 12/18/2020 SUBJECTIVE: Newton is seen and examined this morning at the bedside. He has no complaints. He was dialyzed yesterday with 1.5 liters removed. The dialysis treatment was uneventful. He answers all simple questions appropriately and is oriented to person, place and situation. He is afebrile and hemodynamically stable, and no acute events were reported overnight. PHYSICAL EXAMINATION: VITAL SIGNS: Temperature 97.9, pulse 90, respiratory rate 18, blood pressure 127/59, saturating 98% on room air. INTAKE/OUTPUT: Intake yesterday was 570. Dialysis removed 1.5 liters. Weight in the bed scale today is 102.6 kg. GENERAL: Patient is seen awake, alert, oriented, lying in bed in no distress. HEENT: Extraocular muscles are intact. Tongue is moist. A tunneled hemodialysis catheter is present in the right chest wall with a clean dressing. HEART: Heart sounds are regular with a systolic murmur. LUNGS: Clear to auscultation. No crackles or rales. ABDOMEN: Soft and nontender. EXTREMITIES: Shows scattered ulcers; more prominent on the right lower extremity, but there no peripheral edema. LABORATORY DATA: Labs today show white count 11.0, hemoglobin 10.0, platelets 218,000. Sodium 136, potassium 4.0, bicarbonate 22, BUN 30, creatinine 3.4. MICROBIOLOGY: Blood cultures no growth for 72 hours. INPATIENT MEDICATIONS: I note he was started on Ceftaroline 200 mg I.V. every 12 hours and Hydrocodone p.r.n. for pain. I started him on Venofer with dialysis. The rest of the medicines are all unchanged as compared to yesterday. PROBLEMS: 1. End-stage renal disease on hemodialysis on a Saturday, , Saturday schedule: Patient was dialyzed yesterday with 1.5 liters removed. His electrolytes and volume status are both well controlled. He has never had an outpatient hemodialysis treatment, but he does have scheduled chair time on a TTS schedule at 6:15 a.m. Next dialysis will be on Saturday. 2. Anemia related to chronic inflammatory state, iron deficiency, chronic renal failure: Transferrin saturation is 19% with Iron level of 31. Venofer is ordered with dialysis, and he is on Aranesp as well for goal hemoglobin 10 to 11. 3. Chronic diastolic congestive heart failure: Volume status is regulated via dialysis; 1.5 liters were removed yesterday and patient is fairly well compensated on exam. 4. Hypertension: Blood pressures are well controlled on Metoprolol and there is no reported hypotension of hemodialysis. 5. Peripheral arterial disease with ulcers of the lower extremities; right worse than left: Managed by the primary service and presently on Ceftaroline. It has been a chronic and ongoing issue. 6. Left term use of 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: INR is subtherapeutic. and is managed by the primary team and the patient also does receive Heparin with hemodialysis.
[2020-12-18 22:00] VITALS: BP 133/77
[2020-12-19] MEDS: CEFTAROLINE FOSAMIL 200 MG in D5W 50 ML IV SCH ×2 (00:28→14:06)
[2020-12-19 06:00] VITALS: BP 147/76
[2020-12-19] MEDS: ASPIRIN 81MG ENTERIC TABLET PO SCH (08:23)
[2020-12-19] MEDS: HumaLOG INSULIN (NovoLOG) PER UNIT SC SCH ×4 (08:23→20:55)
[2020-12-19] MEDS: METOPROLOL TART 50 MG TAB PO SCH ×2 (08:23→21:10)
[2020-12-19] MEDS: PANTOPRAZOLE 40MG TAB (PROTONIX) PO SCH (08:23)
[2020-12-19] MEDS: ACETAMINOPHEN TAB 650MG DOSE (2X325MG) PO PRN (08:28)
[2020-12-19 08:48] LABS: HEMATOCRIT 34.8 % (42.0-52.0); HEMOGLOBIN 11.1 g/dl (13.5-17.5); MEAN CORPUSCULAR HEMOGLOBIN 33.4 pg (27.0-33.0); MEAN CORPUSCULAR HGB CONC 31.9 g/dl (32.0-36.5); MEAN CORPUSCULAR VOLUME 104.8 fl (80.0-96.0); PLATELET COUNT, AUTOMATED 242 10^3/uL (150-450); RED BLOOD COUNT 3.32 10^6/uL (4.30-6.10); WHITE BLOOD COUNT 13.3 10^3/uL (4.0-10.0)
[2020-12-19 09:05] LABS: INR 1.99
[2020-12-19 09:14] LABS: CALCIUM LEVEL 8.4 MG/DL (8.8-10.2); CREATININE FOR GFR 4.06 MG/DL (0.70-1.30); GLOMERULAR FILTRATION RATE 15.4 (>42); POTASSIUM SERUM 4.4 MEQ/L (3.5-5.1)
--- NOTE | 2020-12-19 12:50 | IPN ---
PROGRESS NOTE DATE: 12/19/2020 SUBJECTIVE: Newton is [facility]. No clinical change in her status. The case has been discussed with Dr. Ioana Tafoya, Interventional Radiology. She plans a lower extremity arteriogram on December 21 after warfarin has been held for 48 hours. No clinical change today. OBJECTIVE: VITAL SIGNS: Blood pressure is 135/71, afebrile, pulse is 98, 94% O2 saturation. HEENT is unremarkable. LUNGS: Clear. HEART: Regular rhythm. ABDOMEN: Soft, nontender. EXTREMITIES: The lower extremity wounds are dressed today. LABORATORY DATA: White count is up to 13.3, hemoglobin 11, platelets are 242,000. Sodium 134, potassium is 4.4, creatinine is 4.0. Blood sugar is around 200. INR is 1.99. IMPRESSION: 1. Ischemic ulcer of right lower leg. He is on Ceftaroline [address] Tafoya plans a diagnostic arteriogram on Saturday, 12/21, patient is to be NPO after midnight on 12/20. Continue Ceftaroline. 2. Endstage renal disease, on dialysis Saturday, and Saturday schedule. 3. Chronic diastolic congestive heart failure, volume regulated by dialysis. 4. Hypertension, blood pressure is well-controlled on current regimen. 5. Peripheral artery disease as noted above. 6. Lewy-Body dementia, as noted yesterday this was getting worse with visual hallucinations which are a feature of Lewy-Body dementia and seem to be more frequent. I discussed this with his , Arlene. 7. History of aortic stenosis, status post aortic valve replacement. We are holding his warfarin in anticipation of the procedure.
[2020-12-19] MEDS: SANTYL OINT 30GM TOP SCH (12:57)
--- NOTE | 2020-12-19 18:03 | CR ---
ADVANCED WOUND CARE TELEMEDICINE CONSULTATION DATE: 12/19/2020 REQUESTING PHYSICIAN: Dr. Joce Quinteros REASON FOR CONSULTATION: Right and daily lower extremity wounds. Wound care telemedicine provides a visual assessment of the wound wound wounds without the benefit of physical examination. It can assist with establishing a diagnosis and etiology. This allows for an initial treatment plan. As wounds often change it may be necessary to modify the original care. Our recommendation is periodic wound reassessment to monitor treatment. Failure to comply may result in nonhealing of the wound, possible complications and/or a poor outcome. The recommendations given will serve as treatment options. As I will not be following this patient this care plan will require the attending physician to give and signed the orders. Upon discharge outpatient follow-up can be scheduled at our wound care center HISTORY OF PRESENT ILLNESS: A 75-year-old diabetic male adequately controlled with a hematocrit A1c of 7.6, blood glucoses between 150 and 160 while hospitalized has been in the recent past evaluated and treated for small arterial punctate wounds involving the right and left toes. The patient had borderline renal issues in the past and was reluctant to comply with the suggested arteriogram studies. He did however eventually have his left lower extremity evaluated, which showed significant disease with very poor runoff only involving the peroneal artery. The patient was recently hospitalized due to severe depression and pain involving his right and left feet. Our wound care suggestions were to minimize debridement in that these are ischemic wounds, to treat the wounds with Santyl and foam. This was initiated and the patient was later referred over to rehabilitation where according to the patient's , he was treated with antibiotics and soaking his feet in Epsom salts twice a day. This produced significant wound maceration, and as he has been a longstanding patient at our Wound Care Center, she realized that this was not appropriate care. I did take the liberty to discuss the case with Dr. Lezama his rehab physician and she indicated that she would discontinue the soaks and the antibiotics. We discussed the difference between a colonized wound and an infected wound and indicated that at this point the patient's general care is palliative. He was discharged and then recently re-admitted. When seen today, the patient has multiple dry eschar wounds involving the right and left toes. They are fixed, nonfluctuant and the periwound's show no erythema. There is no sign of purulent drainage. Additionally the right medial supramalleolar area shows a wound measuring 3.5 cm by 1.7 cm and a wound cluster of 7.0 cm by 6.0 cm. I did discuss the case with Dr. Tafoya of Interventional Radiology and she indicated that the patient is scheduled for a right lower extremity arteriogram with possible angioplasty. The left lower extremity is nonoperative. The recommended treatment for all wounds at this point is to utilize protective foam. The right medial wound can be treated with Santyl and foam dressing changes on a daily basis. Heel float boots are also recommended prophylactically to protect possible deep tissue injuries of the heels for which he is highly susceptible. FABRICIO
--- NOTE | 2020-12-19 18:51 | IPN ---
NEPHROLOGY PROGRESS NOTE DATE: 12/19/2020 SUBJECTIVE: Mr. Bernard is seen this morning at his bedside. He is laying in the bed without any acute distress. Nursing staff reports that he had a tele visit with Dr. Mcclure for his bilateral lower extremity ulcers. The patient denies any nausea, vomiting, dyspnea or chest pain. It is important to note that the patient was discharged to home just last week from acute rehab and he stayed at home only for one day and was admitted due to altered mentation. Apparently he was hallucinating at home and could not function. The patient denies any hallucinations now. His pain is controlled with medications, however his bilateral lower extremity ulcers are getting worse, particularly on the right leg. OBJECTIVE: PHYSICAL EXAMINATION: VITAL SIGNS: Temperature 97.7 degrees Fahrenheit, heart rate 86 per minute and respiratory rate 16 per minute. Blood pressure 135/70 mm of mercury and oxygen saturation 94% on room air. HEENT: His head is atraumatic. NECK: Supple and JVD not abnormally elevated. Dialysis catheter is present in the right upper chest. HEART: Regular in rhythm. LUNGS: Clear to auscultation. ABDOMEN: Soft and nontender and bowel sounds are normal. EXTREMITIES: Without any cyanosis or clubbing. He has ulcers on both lower extremities below the knees. Right leg ulcers are larger, deeper and with necrotic tissue. He has severe bilateral lower extremity vascular disease. LABORATORY STUDIES: Today's labs show a white blood cell count up to 13.3, hemoglobin 11.1 and hematocrit 34.8. Sodium 134, potassium 4.4, CO2 19, BUN 38 and creatinine 4.0. PROBLEMS: 1. End-stage renal disease The patient is currently dialyzed on a Saturday, and Saturday schedule. He was dialyzed on Saturday and we plan to dialyze him again tomorrow. At present his volume status is well compensated and electrolytes are stable. There is no emergent indication for dialysis today. 2. Anemia his anemia is currently stable and he remains on Aranesp once a week which will be continued. 3. Bilateral lower extremity ulcers and leukocytosis - The patient has severe peripheral vascular disease and his ulcers are not healing. He remains on Ceftriaxone and wound care is being directed by Dr. Mcclure. 4. Diabetes his diabetes seems to be reasonably well controlled currently in the hospital. 5. Peripheral vascular disease - The patient has a known history of severe peripheral vascular disease in the lower extremities. He has been treated by Interventional Radiology in the past with angioplasties. I would recommend consultation with Dr. Tafoya for possible angioplasty if we can improve his circulation which might help in healing of his ulcers.
[2020-12-19] MEDS: MIRALAX *UNIT DOSE* 17GM PACKET PO SCH (21:00)
[2020-12-19] MEDS: NORTRIPTYLINE 10 MG CAP PO SCH (21:10)
[2020-12-19 22:00] VITALS: BP 159/75
[2020-12-20] MEDS: CEFTAROLINE FOSAMIL 200 MG in D5W 50 ML IV SCH ×2 (00:29→13:15)
[2020-12-20] MEDS: ASPIRIN 81MG ENTERIC TABLET PO SCH (05:24)
[2020-12-20] MEDS: PANTOPRAZOLE 40MG TAB (PROTONIX) PO SCH (05:24)
[2020-12-20] MEDS: METOPROLOL TART 50 MG TAB PO SCH ×2 (05:25→20:53)
[2020-12-20 05:43] LABS: HEMATOCRIT 32.2 % (42.0-52.0); HEMOGLOBIN 10.4 g/dl (13.5-17.5); MEAN CORPUSCULAR HEMOGLOBIN 33.3 pg (27.0-33.0); MEAN CORPUSCULAR HGB CONC 32.3 g/dl (32.0-36.5); MEAN CORPUSCULAR VOLUME 103.2 fl (80.0-96.0); PLATELET COUNT, AUTOMATED 219 10^3/uL (150-450); RED BLOOD COUNT 3.12 10^6/uL (4.30-6.10); WHITE BLOOD COUNT 12.2 10^3/uL (4.0-10.0)
[2020-12-20 05:53] LABS: INR 2.01; PROTHROMBIN TIME 23.2 SECONDS (12.7-14.5)
[2020-12-20 06:00] VITALS: BP 139/68
[2020-12-20 06:06] LABS: CALCIUM LEVEL 8.6 MG/DL (8.8-10.2); CREATININE FOR GFR 4.34 MG/DL (0.70-1.30); GLOMERULAR FILTRATION RATE 14.3 (>42); POTASSIUM SERUM 4.1 MEQ/L (3.5-5.1)
[2020-12-20] MEDS: HumaLOG INSULIN (NovoLOG) PER UNIT SC SCH ×4 (08:00→20:47)
[2020-12-20] MEDS: IRON SUCROSE 100MG 5ML VIAL (J1756 PER 1MG) IV SCH (08:54)
--- NOTE | 2020-12-20 11:58 | IPNPDOC ---
Text Note Date of Service The patient was seen on 12/20/20. NOTE SUBJECTIVE: Pt laying in the bed, looks comfortable getting his dialysis. He reports no pain no acute distress and is alert oriented to time place person. He is back to his baseline since the last time I saw him. PHYSICAL EXAMINATION: GENERAL: Patient is awake, alert, oriented times three. HEAD AND NECK EXAM: Extraocular muscles intact. Pupils equally round and reactive to light. Mucous membranes are moist. Neck is supple. He has a tunneled hemodialysis catheter. CARDIOVASCULAR: S1, S2. Regular rate. Trace edema of the bilateral lower extremities. RESPIRATORY: Chest is clear to auscultation bilaterally. Bilateral equal air entry. No rales or rhonchi. ABDOMEN: Soft. Positive bowel sounds. Nontender. No organomegaly MUSCULOSKELETAL: Patient has ulcers on B/L feet. Look to be healing with no evidence of infection. CENTRAL NERVOUS SYSTEM (SLIP COVER SEWER): No focal deficit. Power is 5/5 in all extremities. ASSESSMENT AND PLAN: Patient is a 75-year-old male with a past medical history of coronary artery disease s/p coronary artery bypass grafting, severe aortic stenosis s/p AVR on Coumadin, atrial fibrillation, chronic systolic and diastolic congestive heart failure, chronic kidney disease stage IV, diabetes mellitus type 2, peripheral artery disease, pulmonary hypertension, Lewy body dementia, cerebrovascular accident, dysphagia, bilateral lower extremity arterial ulcers who is being seen by nephrology service for hemodialysis started during his hospital course due to worsening kidney function. ASSESSMENT AND PLAN: 1. End-stage renal disease on hemodialysis on a Saturday, , Saturday: He is getting dialyzed today. He is tolerating the procedure well. Is not complaining of any pain in his legs. His electrolytes and volume status are acceptable. 2. Anemia due to chronic renal failure: Iron panel done with transferrin saturation of 19% and iron level of 31. He is on Aranesp as well for goal hemoglobin of 10 to 11. 3. Chronic diastolic congestive heart failure: Maintain a fluid restriction of 1800ml. Continue monitoring I's and O's. Continuous monitoring of weight. 4. Status post altered mental status: Resolved. His mentation seems to be back to baseline and his pregabalin was stopped on this admission. His blood cultures were negative. 5. Hypertension: Blood pressures are well controlled. He continues to be on Metoprolol. 6. Peripheral arterial disease with ischemic ulcers bilateral feet: -Patient had a telemedicine visit with Dr. Mcclure yesterday, he saw the wound and directions were given for a specific way to do his dressings. -Since the patient is on dialysis now be talked to vascular surgery to attempt to revascularize blocked arteries. Dr. Tafoya agreed to do a procedure on him tomorrow. -Nephrology has no fixed limitations on the amount of contrast dye needed by vascular surgery since the patient is on dialysis now. VS,Fishbone, I+O VS, Fishbone, I+O Laboratory Tests 12/20/20 05:31 Vital Signs Date Time Temp Pulse Resp B/P (MAP) Pulse Ox O2 Delivery O2 Flow Rate FiO2 12/20/20 06:00 98.1 79 18 139/68 (91) 95 Room Air I&O- Last 24 Hours up to 6 AM 12/20/20 06:00 Intake Total 420 ml Output Total 0 ml Balance 420 ml GME ATTESTATION GME ATTESTATION My faculty preceptor for this patient encounter was physically present during the encounter and was fully available. All aspects of the patient interview, examination, medical decision making process, and medical care plan development were reviewed and approved by the faculty preceptor. The faculty preceptor is aware and concurs with the plan as stated in the body of this note and will attest to such by his/her cosignature. Breezy Sterling MD Dec 20, 2020 11:58
[2020-12-20] MEDS: NORCO, ANEXSIA 5/325MG TABLET (HYDROcodone/ACETAMINOPHEN) PO PRN (13:15)
--- NOTE | 2020-12-20 13:28 | IPN ---
PROGRESS NOTE DATE: 12/20/2020 SUBJECTIVE: Mr. Pabon is seen this morning on his bedside during hemodialysis. He denies any new complaints. He does have pain in his lower extremity ulcers. He has no dyspnea, chest pain, fever or chills. He had a telemedicine visit with Dr. Mcclure yesterday and wound care has been recommended by Dr. Mcclure. He is also scheduled for angiogram and possible angioplasty of his lower extremities by Dr. Tafoya tomorrow. OBJECTIVE: VITAL SIGNS: Temperature is 98 degrees Fahrenheit, heart rate is 80 per minute and respiratory rate is 18 per minute, blood pressure is 120/65 mmHg and oxygen saturation is 95% on room air. HEENT: Head is atraumatic. NECK: Supple and without JVD or thyroid enlargement. Dialysis catheter is present in the right upper chest. HEART: Irregular in rhythm. LUNGS: Clear to auscultation. ABDOMEN: Soft and nontender and bowel sounds are normal. EXTREMITIES: Without any cyanosis or clubbing. Both lower legs are wrapped in dressings. NEUROLOGIC: He is awake, at his baseline mentation and any focal deficit. Today's labs showed a WBC count of 12.2, hemoglobin of 10.4, hematocrit 32.2. Sodium is 135, potassium is 4.1, BUN 46 and creatinine is 4.34. PROBLEMS: 1. Endstage renal disease. Patient is being dialyzed and he is tolerating his dialysis treatment well. 2. Congestive heart failure at present, his volume status is well-compensated and we are removing only 1 liter of fluid today. 3. Peripheral vascular disease with bilateral lower extremity ulcers. Patient is already scheduled for angiogram of lower extremities with possible angioplasty by Interventional Radiology tomorrow. I have discussed with Dr. Tafoya today. 4. Anemia, his anemia has been stable and will continue to monitor closely.
[2020-12-20] MEDS: DIMETHICONE 2% OINTMENT(VANICREAM) 70GM TUBE TOP SCH (16:11)
--- NOTE | 2020-12-20 18:14 | IPNPDOC ---
Date Seen The patient was seen on 12/20/20. Progress Note SUBJECTIVE: Patient seen examined at bedside. Complains of pain in the lower extremities. No other acute events overnight. Denies chest pain shortness of breath palpitations nausea vomiting or diarrhea. Plan for right lower extremity angioplasty by Dr. Tafoya on 12/21/2020. OBJECTIVE PHYSICAL EXAMINATION: VITAL SIGNS: please see below General: NAD, comfortable HEENT: PERRLA, EOMI, sclerae clear Neck: supple, normal ROM, no JVD Respiratory: lungs CTAB, no wheeze, no rales, no crackles CVS: RRR, normal S1, S2, no murmurs Abdo: soft, no masses, no hepatosplenomegaly, BS+, no rebound tenderness Extremities: Cyanotic pulses not palpable. MSK: no joint deformities, normal ROM Neuro: no focal neuro deficits, moving all 4 extremities, CN2-12 intact. Strength 5/5 in all 4 extremities. No nystagmus. Psych: calm, cooperative, AAO x 3 LABORATORY DATA, IMAGING STUDIES, MICROBIOLOGY: Please see below. DVT prophylaxis ordered?: On warfarin held since 12/18/20 ASSESSMENT AND PLAN:This is 75-year-old male with a past medical history of Lewy body dementia, ESRD on dialysis, type 2 diabetes, CAD status post CABG, aortic stenosis status post AVR on warfarin, CVA, peripheral arterial disease, hypertension heart failure with preserved ejection fraction, pulmonary hypertension and obstructive sleep apnea. Patient was recently discharged from acute rehab unit after a stroke. Patient returned to the hospital with altered mental status weakness shortness of breath. Patient's encephalopathy has improved plan for IR for angioplasty of the right lower extremity. PROBLEMS: #Ischemic ulcer of right lower leg:He is on Ceftaroline [address] Tafoya plans a diagnostic arteriogram on Saturday, 12/21, patient is to be NPO after midnight on 12/20. Continue Ceftaroline. #Endstage renal disease, on dialysis Saturday, and Saturday schedule. #Chronic diastolic congestive heart failure, volume regulated by dialysis. #Hypertension, blood pressure is well-controlled on current regimen. #Peripheral artery disease as noted above. #Lewy-Body dementia, as noted yesterday this was getting worse with visual hallucinations which are a feature of Lewy-Body dementia and seem to be more frequent. #History of aortic stenosis, status post aortic valve replacement. We are holding his warfarin in anticipation of the procedure. VS, I&O, 24H, Fishbone Vital Signs/I&O Vital Signs Date Time Temp Pulse Resp B/P (MAP) Pulse Ox O2 Delivery O2 Flow Rate FiO2 12/20/20 14:45 18 Room Air 12/20/20 06:00 98.1 79 139/68 (91) 95 I&O- Last 24 Hours up to 6 AM 12/20/20 06:00 Intake Total 420 ml Output Total 0 ml Balance 420 ml Laboratory Data 24H LABS Laboratory Tests 2 12/19/20 20:18: Bedside Glucose (Misc Panel) 113H 12/20/20 05:31: Nucleated Red Blood Cells % (auto) 0.0, Prothrombin Time 23.2H, Prothromb Time International Ratio 2.01, Anion Gap 9, Glomerular Filtration Rate 14.3L, Calcium Level 8.6L 12/20/20 12:46: Bedside Glucose (Misc Panel) 132H 12/20/20 17:03: Bedside Glucose (Misc Panel) 200H CBC/BMP Laboratory Tests 12/20/20 05:31 Microbiology Microbiology 12/15/20 Blood Culture - Final, Complete NO GROWTH AFTER 5 DAYS LISA RANGEL MD Dec 20, 2020 18:14
[2020-12-20] MEDS: MIRALAX *UNIT DOSE* 17GM PACKET PO SCH (20:52)
[2020-12-20] MEDS: NORTRIPTYLINE 10 MG CAP PO SCH (20:53)
[2020-12-20 22:00] VITALS: BP 136/74
[2020-12-21] VITALS (8 sets, daily range): BP systolic 134–158; BP diastolic 67–83
[2020-12-21] MEDS: CEFTAROLINE FOSAMIL 200 MG in D5W 50 ML IV SCH ×2 (01:11→13:52)
[2020-12-21] MEDS ORDERED: ISOVUE-300 61% 50ML VIAL As Ordered ONE ×2 (07:28→10:48)
[2020-12-21] MEDS ORDERED: LIDOCAINE 1% MDV 20ML VIAL As Ordered ONE (07:29)
[2020-12-21] MEDS: HumaLOG INSULIN (NovoLOG) PER UNIT SC SCH ×4 (07:30→21:00)
--- NOTE | 2020-12-21 08:16 | IRMSE ---
[facility] IR Moderate Sedation Eval. Date and Time Date: Dec 21, 2020 Time: 08:15 ASA Classification ASA Classification: III-Severe systemic dis. Mallampati Score: II NPO: Yes Obstructive Sleep Apnea: No Interval Plan: moderate sedation LESLIE DEL VALLE MD Dec 21, 2020 08:16
[2020-12-21 08:25] LABS: HEMATOCRIT 33.8 % (42.0-52.0); MEAN CORPUSCULAR HEMOGLOBIN 33.8 pg (27.0-33.0); MEAN CORPUSCULAR HGB CONC 32.5 g/dl (32.0-36.5); PLATELET COUNT, AUTOMATED 230 10^3/uL (150-450); RED BLOOD COUNT 3.25 10^6/uL (4.30-6.10); WHITE BLOOD COUNT 14.6 10^3/uL (4.0-10.0)
[2020-12-21] MEDS ORDERED: MIDAZOLAM INJ 2MG/2ML VIAL (J2250 PER 1MG) ONE (08:25)
[2020-12-21] MEDS ORDERED: diphenhydrAMINE 50MG/ML VIAL (J1200) ONE (08:25)
[2020-12-21] MEDS ORDERED: fentaNYL 100 MCG/2 ML INJECTION (J3010) ONE (08:25)
[2020-12-21 08:32] LABS: INR 1.78; PROTHROMBIN TIME 21.1 SECONDS (12.7-14.5)
[2020-12-21 08:42] LABS: CALCIUM LEVEL 8.8 MG/DL (8.8-10.2); CREATININE FOR GFR 3.29 MG/DL (0.70-1.30); GLOMERULAR FILTRATION RATE 19.6 (>42); POTASSIUM SERUM 4.2 MEQ/L (3.5-5.1)
[2020-12-21] MEDS ORDERED: NS 1,000 ML IV SCH ×2 (09:10→14:05)
[2020-12-21] MEDS ORDERED: MIDAZOLAM INJ 2MG/2ML VIAL (J2250 PER 1MG) As Ordered ONE (10:00)
[2020-12-21] MEDS ORDERED: fentaNYL 100 MCG/2 ML INJECTION (J3010) As Ordered ONE (10:00)
--- NOTE | 2020-12-21 12:53 | IPNPDOC ---
Text Note Date of Service The patient was seen on 12/21/20. NOTE SUBJECTIVE: We went to see the patient in the morning he was not present in the room was being sent to interventional radiology to get her scheduled angioplasty in his lower extremities. Talk to the nurse who reported no overnight events. OBJECTIVE: Were unable to do a physical exam as the patient was in the OR. ASSESSMENT AND PLAN: Patient is a 75-year-old male with a past medical history of coronary artery disease s/p coronary artery bypass grafting, severe aortic st enosis s/p AVR on Coumadin, atrial fibrillation, chronic systolic and diastolic congestive heart failure, chronic kidney disease stage IV, diabetes mellitus type 2, peripheral artery disease, pulmonary hypertension, Lewy body dementia, cerebrovascular accident, dysphagia, bilateral lower extremity arterial ulcers who is being seen by nephrology service for hemodialysis started during his hospital course due to worsening kidney function. 1. End-stage renal disease on hemodialysis on a Saturday, , Saturday: Patient did get dialyzed yesterday without any acute events. Tolerated the procedure well Is not complaining of any pain in his legs. His electrolytes and volume status as of this morning. 2. Anemia due to chronic renal failure: Iron panel done with transferrin saturation of 19% and iron level of 31. He is on Aranesp as well for goal hemoglobin of 10 to 11. 3. Chronic diastolic congestive heart failure: Maintain a fluid restriction of 1800ml. Continue monitoring I's and O's. Continuous monitoring of weight. 4. Peripheral arterial disease with ischemic ulcers bilateral feet: -Could not see the patient since he was in the OR getting angiography done by Dr. Tafoya to revascularize any blocked vessels -We are hoping that this would ease his ischemic ulcer pain and heal his previous nonhealing ulcers. 5. Hypertension: Blood pressures are well controlled. He continues to be on Metoprolol. VS,Fishbone, I+O VS, Fishbone, I+O Laboratory Tests 12/21/20 07:51 Vital Signs Date Time Temp Pulse Resp B/P (MAP) Pulse Ox O2 Delivery O2 Flow Rate FiO2 12/21/20 11:20 72 20 100 Nasal Cannula 2.0 12/21/20 08:00 98.0 12/21/20 06:00 136/73 (94) I&O- Last 24 Hours up to 6 AM 12/21/20 06:00 Intake Total 730 ml Output Total 1000 ml Balance -270 ml GME ATTESTATION GME ATTESTATION My faculty preceptor for this patient encounter was physically present during the encounter and was fully available. All aspects of the patient interview, examination, medical decision making process, and medical care plan development were reviewed and approved by the faculty preceptor. The faculty preceptor is aware and concurs with the plan as stated in the body of this note and will attest to such by his/her cosignature. Breezy Sterling MD Dec 21, 2020 12:53
[2020-12-21] MEDS: ASPIRIN 81MG ENTERIC TABLET PO SCH (12:55)
[2020-12-21] MEDS: PANTOPRAZOLE 40MG TAB (PROTONIX) PO SCH (12:55)
[2020-12-21] MEDS: METOPROLOL TART 50 MG TAB PO SCH ×2 (12:55→22:44)
[2020-12-21] MEDS: SANTYL OINT 30GM TOP SCH (12:57)
[2020-12-21] MEDS: DIMETHICONE 2% OINTMENT(VANICREAM) 70GM TUBE TOP SCH (12:57)
--- NOTE | 2020-12-21 15:18 | IPNPDOC ---
Date Seen The patient was seen on 12/21/20. Progress Note SUBJECTIVE: Patient seen examined at bedside. Complains of pain in the lower extremities. No other acute events overnight. Denies chest pain shortness of breath palpitations nausea vomiting or diarrhea. OBJECTIVE PHYSICAL EXAMINATION: VITAL SIGNS: please see below General: NAD, comfortable HEENT: PERRLA, EOMI, sclerae clear Neck: supple, normal ROM, no JVD Respiratory: lungs CTAB, no wheeze, no rales, no crackles CVS: RRR, normal S1, S2, no murmurs Abdo: soft, no masses, no hepatosplenomegaly, BS+, no rebound tenderness Extremities: Cyanotic pulses not palpable. MSK: no joint deformities, normal ROM Neuro: no focal neuro deficits, moving all 4 extremities, CN2-12 intact. Strength 5/5 in all 4 extremities. No nystagmus. Psych: calm, cooperative, AAO x 3 LABORATORY DATA, IMAGING STUDIES, MICROBIOLOGY: Please see below. DVT prophylaxis ordered?: On warfarin held since 12/18/20 ASSESSMENT AND PLAN: This is 75-year-old male with a past medical history of Lewy body dementia, ESRD on dialysis, type 2 diabetes, CAD status post CABG, aortic stenosis status post AVR on warfarin, CVA, peripheral arterial disease, hypertension heart failure with preserved ejection fraction, pulmonary hypertension and obstructive sleep apnea. Patient was recently discharged from acute rehab unit after a stroke. Patient returned to the hospital with altered mental status weakness shortness of breath. Patient's encephalopathy has improved and Dr. Tafoya has taken the patient to IR for angioplasty of the right lower extremity. PROBLEMS: #Ischemic ulcer of right lower leg: c/w ceftaroline. Check procal, CRP, ESR. S/p R leg angiography with angioplasty by Dr. Tafoya on 12/21/20. She was able to open the R peroneal artery with angioplasty, expect improved flow to the DP and calcaneal. Ok to resume warfarin and ASA on 12/22/20. C/w wound care. #Endstage renal disease, HD: nephrology following. #Chronic diastolic congestive heart failure, volume regulated by dialysis. #Hypertension, blood pressure is well-controlled on current regimen. #Peripheral artery disease as noted above. #Lewy-Body dementia: known to family. Appears to be alert today. #History of aortic stenosis, status post aortic valve replacement: ok to resume warfarin on 12/22/[address] Tafoya. VS, I&O, 24H, Fishbone Vital Signs/I&O Vital Signs Date Time Temp Pulse Resp B/P (MAP) Pulse Ox O2 Delivery O2 Flow Rate FiO2 12/21/20 12:55 72 159/73 12/21/20 12:30 18 97 Room Air 12/21/20 11:20 2.0 12/21/20 08:00 98.0 I&O- Last 24 Hours up to 6 AM 12/21/20 05:59 Intake Total 730 ml Output Total 1000 ml Balance -270 ml Laboratory Data 24H LABS Laboratory Tests 2 12/20/20 17:03: Bedside Glucose (Misc Panel) 200H 12/20/20 20:29: Bedside Glucose (Misc Panel) 142H 12/21/20 07:51: Nucleated Red Blood Cells % (auto) 0.0, Prothrombin Time 21.1H, Prothromb Time International Ratio 1.78, Anion Gap 9, Glomerular Filtration Rate 19.6L, Calcium Level 8.8 12/21/20 13:11: Bedside Glucose (Misc Panel) 159H CBC/BMP Laboratory Tests 12/21/20 07:51 Microbiology Microbiology 12/15/20 Blood Culture - Final, Complete NO GROWTH AFTER 5 DAYS LISA RANGEL MD Dec 21, 2020 15:18
[2020-12-21] MEDS: NORCO, ANEXSIA 5/325MG TABLET (HYDROcodone/ACETAMINOPHEN) PO PRN (17:06)
[2020-12-21] MEDS: MIRALAX *UNIT DOSE* 17GM PACKET PO SCH (20:22)
[2020-12-21] MEDS: NORTRIPTYLINE 10 MG CAP PO SCH (20:22)
[2020-12-22] MEDS: CEFTAROLINE FOSAMIL 200 MG in D5W 50 ML IV SCH (01:27)
[2020-12-22 02:00] VITALS: BP 127/68
[2020-12-22] MEDS: NORCO, ANEXSIA 5/325MG TABLET (HYDROcodone/ACETAMINOPHEN) PO PRN ×3 (02:23→18:31)
[2020-12-22 06:00] VITALS: BP 129/64
[2020-12-22] MEDS: PANTOPRAZOLE 40MG TAB (PROTONIX) PO SCH (06:08)
[2020-12-22] MEDS: ASPIRIN 81MG ENTERIC TABLET PO SCH (06:08)
[2020-12-22] MEDS: METOPROLOL TART 50 MG TAB PO SCH ×2 (06:08→20:11)
[2020-12-22] MEDS: DIMETHICONE 2% OINTMENT(VANICREAM) 70GM TUBE TOP SCH (06:09)
[2020-12-22 06:19] LABS: HEMATOCRIT 28.3 % (42.0-52.0); HEMOGLOBIN 9.1 g/dl (13.5-17.5); MEAN CORPUSCULAR HEMOGLOBIN 33.5 pg (27.0-33.0); MEAN CORPUSCULAR HGB CONC 32.2 g/dl (32.0-36.5); PLATELET COUNT, AUTOMATED 198 10^3/uL (150-450); RED BLOOD COUNT 2.72 10^6/uL (4.30-6.10); WHITE BLOOD COUNT 14.5 10^3/uL (4.0-10.0)
[2020-12-22 06:31] LABS: INR 2.01; PROTHROMBIN TIME 23.2 SECONDS (12.7-14.5)
[2020-12-22 06:45] LABS: CALCIUM LEVEL 7.9 MG/DL (8.8-10.2); CREATININE FOR GFR 4.32 MG/DL (0.70-1.30); GLOMERULAR FILTRATION RATE 14.3 (>42); POTASSIUM SERUM 4.2 MEQ/L (3.5-5.1)
[2020-12-22] MEDS: HumaLOG INSULIN (NovoLOG) PER UNIT SC SCH ×4 (08:07→21:00)
[2020-12-22] MEDS: DARBEPOETIN 100 MCG/0.5 ML *DIALYSIS* SYRINGE (J0882) IV SCH (11:04)
[2020-12-22] MEDS: IRON SUCROSE 100MG 5ML VIAL (J1756 PER 1MG) IV SCH (11:39)
--- NOTE | 2020-12-22 12:28 | IRPON ---
IR Postoperative Note Date Of Procedure: Dec 21, 2020 Time Of Procedure: 16:00 IR Postoperative Note IR Right leg angiogram. IR Right below-knee runoff arteriogram. IR Ultrasound-guided left common femoral artery access. IR Ultrasound-guided right common femoral artery access. IR Right peroneal artery recanalization. IR Right peroneal artery angioplasty. IR Moderate sedation. Clinical Information:Nonhealing right lower extremity wounds. Physician: Dr. Tafoya. Procedure: The patient was advised of the benefits, risks, and alternatives of the procedure and informed consent was obtained. A time out was performed with verification of the patient's name, MRN, site of procedure, and type of procedure to be performed. The patient was positioned in the supine position on the angiographic table. The site was prepped and draped in the usual sterile fashion. Moderate sedation was performed by the physician including the presence of an independent trained RN, who assisted in monitoring the patient's level of consciousness and physiological status. Following the administration of fentanyl and Versed, the physician spent 180 minutes of continuous [id number] time with the patient. Ultrasound of the left groin demonstrates patent left common femoral artery. Lidocaine was used for local anesthesia. The left common femoral artery was accessed, under ultrasound guidance with a microintroducer set. A short 0.018" [place] wire was inserted under fluoroscopy guidance and the needle was exchanged for a 4 Fr microintroducer sheath. The guidewire and dilator were removed, and a 0.035" [place] wire was advanced under fluoroscopy guidance and placed into the abdominal aorta. A 6 Fr sheath was placed over the wire. A 5 [place] Omni Flush catheter was advanced over the wire, under fluoroscopy guidance and used to catheterize the infrarenal abdominal aorta. A pelvic arteriogram was performed. This demonstrates, patent infrarenal abdominal aorta, patent bilateral common iliac, internal iliac and external iliac arteries. Patent bilateral common femoral arteries. A Glidewire was advanced through the flush catheter and used under fluoroscopy guidance, to gain up and over access into the right external iliac artery. The catheter was removed over the wire. A 4 [place] glide cath was advanced over the wire, under fluoroscopy guidance and used to catheterize the right common femoral artery. A right leg angiogram was performed. This demonstrates patent proximal, mid and distal right superficial femoral artery. Patent profunda femoris. Angiography further down the right leg was performed. This demonstrates diffuse atherosclerotic disease in the distal SFA, proximal, mid and distal popliteal artery without focal occlusion. A below-knee runoff arteriogram was performed and this demonstrates complete oc clusion of the anterior tibial and posterior tibial arteries. Patent tibioperoneal trunk with complete occlusion of the peroneal artery. No runoff vasculature to the right foot. Given the high and steep aortic bifurcation, I decided to access the right lower extremity, ipsilateral and antegrade, for further right below-knee intervention. The left groin catheter, sheath and wire were removed. A 6 [place] Mynx device was used to close the left groin arteriotomy. Hemostasis achieved and a sterile dressing was applied to the site. Ultrasound of the right groin demonstrates patent right common femoral artery. Lidocaine was used for local anesthesia. The right common femoral artery was accessed antegrade, under ultrasound guidance, with a microintroducer set. A short 0.018" [place] wire was inserted under fluoroscopy guidance and the needle was exchanged for a 4 Fr microintroducer sheath. The guidewire and dilator were removed, and a 0.035" Bents[place] wire was advanced under fluoroscopy guidance and placed into the right superficial femoral artery. A 6 Fr sheath was placed over the wire. A glide cath was advanced over the wire and used under fluoroscopy guidance, to catheterize the right popliteal artery. A repeat below-knee runoff arteriogram was performed and this confirms, complete occlusion of the anterior tibial, posterior tibial and peroneal artery with no runoff to the right foot. An 018 wire was advanced through the glide cath and positioned in the popliteal artery. The glide cath was removed. An 018 [place] catheter was then advanced over the 018 wire, under fluoroscopy guidance and used to catheterize the tibioperoneal trunk. The catheter in conjunction with an 018 Glidewire advantage and 016 fathom wire, were then used under fluoroscopy guidance, to recanalize the peroneal artery. Intermittent injection of contrast confirmed intraluminal location. After successful catheterization of the distal peroneal artery, an arteriogram to the right foot was performed. This demonstrates antegrade flow from the distal peroneal artery, into the right foot. Collateral branches from the peroneal artery serving the territory of dorsalis pedis. Severe microvascular disease within the right foot. No significant collateral reconstitution of the distal posterior tibial artery, calcaneal or plantar branches. Absent pedal loop. The catheter was removed over the wire. A 2.5 x 220 mm Shailesh angioplasty balloon was then advanced over the wire, under fluoroscopy guidance and positioned in the proximal, mid and distal right peroneal artery. Angioplasty was performed. Heparin was administered. The angioplasty balloon was deflated and then removed over the wire. A follow-up post angioplasty arteriogram was performed, through the right groin sheath. This demonstrates successful recanalization of the peroneal artery now serving many collaterals on its way down to the ankle as well as collaterals to the dorsalis pedis territory. An 018 [place] catheter was readvanced over the wire, under fluoroscopy guidance and used to try to recanalize the occluded anterior tibial artery. Numerous combinations of wire and catheter were used to try to recanalize anterior tibial artery. However, the vessel is heavily calcified and this was not successful. The catheter was then retracted and in conjunction with a wire, was used to try to recanalize the occluded posterior tibial artery. Despite using numerous combinations of wires with different weight tip, this was also not feasible. The catheter was retracted to the popliteal artery and a final injection of contrast was used to confirm preserved antegrade flow in the right peroneal artery. Catheters wires and sheath were removed, pressure held and hemostasis achieved. A sterile dressing was applied to the site. The patient tolerated the procedure well and was returned to the PRU in stable condition. EBL: < 5 mL. Complications:None. Impression: 1. Right leg angiogram demonstrates severe below-knee disease with no arterial runoff to the right foot. 2. Successful right peroneal artery recanalization and angioplasty with improved supply to collaterals to the ankle and collateral reconstitution of dorsalis pedis territory. 3. Unsuccessful anterior tibial and posterior tibial artery recanalization. 4. There is severe microvascular disease within the right foot with some reconstitution of dorsalis pedis territory via collaterals from the peroneal artery but no significant reconstitution of distal posterior tibial artery or calcaneal or plantar branches. 5. Continue wound care. Thank you for this referral. CC LESLIE Duran Dr., Dr., MD Dec 22, 2020 12:28
--- NOTE | 2020-12-22 13:22 | IPNPDOC ---
Date Seen The patient was seen on 12/22/20. Progress Note SUBJECTIVE: Patient seen examined at bedside. Seen ambulating independently to the restroom. States pain in lower extremities has improved although there is slight nagging pulsatile pain. No other acute events overnight. Denies chest pain shortness of breath palpitations nausea vomiting or diarrhea. OBJECTIVE PHYSICAL EXAMINATION: VITAL SIGNS: please see below General: NAD, comfortable HEENT: PERRLA, EOMI, sclerae clear Neck: supple, normal ROM, no JVD Respiratory: lungs CTAB, no wheeze, no rales, no crackles CVS: RRR, normal S1, S2, no murmurs Abdo: soft, no masses, no hepatosplenomegaly, BS+, no rebound tenderness Extremities: Numerous vascular ulcers. Pulses audible with Doppler bilaterally. MSK: no joint deformities, normal ROM Neuro: no focal neuro deficits, moving all 4 extremities, CN2-12 intact. Strength 5/5 in all 4 extremities. No nystagmus. Psych: calm, cooperative, AAO x 3 LABORATORY DATA, IMAGING STUDIES, MICROBIOLOGY: Please see below. DVT prophylaxis ordered?: On warfarin held since 12/18/20 ASSESSMENT AND PLAN: This is 75-year-old male with a past medical history of Lewy body dementia, ESRD on dialysis, type 2 diabetes, CAD status post CABG, aortic stenosis status post AVR on warfarin, CVA, peripheral arterial disease, hypertension heart failure with preserved ejection fraction, pulmonary hypertension and obstructive sleep apnea. Patient was recently discharged from acute rehab unit after a stroke. Patient returned to the hospital with altered mental status weakness shortness of breath. Patient's encephalopathy has improved and Dr. Tafoya has taken the patient to IR for angioplasty of the right lower extremity. PROBLEMS: #Ischemic ulcer of right lower leg: DC ceftaroline. Start cefdinir 300 mg twice daily x5 days.. Check procal, CRP, ESR. S/p R leg angiography with angioplasty by Dr. Tafoya on 12/21/20. She was able to open the R peroneal artery with angioplasty, expect improved flow to the DP and calcaneal. Ok to resume warfarin and ASA on 12/22/20. C/w wound care. Pulses intact by doppler. #Leukocytosis: Unclear if this is true infectious process or this is reactive from recent vascular procedure. At present afebrile. We will continue with antibiotics i.e. cefdinir 300 mg twice daily. ESR and CRP are elevated again possibly in the context of recent surgery. #Endstage renal disease, HD: nephrology following. #Chronic diastolic congestive heart failure, volume regulated by dialysis. #Hypertension, blood pressure is well-controlled on current regimen. #Peripheral artery disease as noted above. #Lewy-Body dementia: known to family. Appears to be alert today. #History of aortic stenosis, status post aortic valve replacement: ok to resume warfarin on 12/22/[address] Tafoya. Goals of care: I had a discussion with the patient's Jose F Pabon regarding the patient's goals of care. I also spoke to the patient. They both agree that patient would like to remain full code at this time. Ultimately the patient's wishes to take the patient home. I have asked Pamela Kerr from palliative care services to reach out to them. I believe that the patient requires significant support at home. His states that she is able to provide adequate care currently has an RN coming to the home 3 times per week. VS, I&O, 24H, Fishbone Vital Signs/I&O Vital Signs Date Time Temp Pulse Resp B/P (MAP) Pulse Ox O2 Delivery O2 Flow Rate FiO2 12/22/20 10:55 16 12/22/20 06:08 71 129/64 12/22/20 06:00 97.8 94 Room Air 12/21/20 11:20 2.0 I&O- Last 24 Hours up to 6 AM 12/22/20 06:00 Intake Total 1520 ml Output Total 0 ml Balance 1520 ml Laboratory Data 24H LABS Laboratory Tests 2 12/21/20 16:35: Bedside Glucose (Misc Panel) 154H 12/21/20 19:47: Bedside Glucose (Misc Panel) 143H 12/22/20 05:48: Nucleated Red Blood Cells % (auto) 0.0, Prothrombin Time 23.2H, Prothromb Time International Ratio 2.01, Anion Gap 12, Glomerular Filtration Rate 14.3L, Calcium Level 7.9L 12/22/20 09:22: Erythrocyte Sedimentation Rate 126H, C-Reactive Protein, Quantitative 12.30H 12/22/20 13:20: Bedside Glucose (Misc Panel) 133H CBC/BMP Laboratory Tests 12/22/20 05:48 Microbiology Microbiology 12/22/20 Blood Culture, Received Pending 12/15/20 Blood Culture - Final, Complete NO GROWTH AFTER 5 DAYS LISA RANGEL MD Dec 22, 2020 13:22
[2020-12-22 14:00] VITALS: BP 124/61
--- NOTE | 2020-12-22 16:34 | IPN ---
PROGRESS NOTE DATE: 12/22/2020 SUBJECTIVE: Mr. Pabon is seen this morning on his bedside during hemodialysis. He underwent angiogram of the lower extremities yesterday. He was again noted to have severe vascular disease with multiple blood vessels below the knee completely occluded, particularly in his right lower extremity. He did have some angioplasty of the peroneal artery done. He denies any dyspnea, chest pain, nausea or vomiting. OBJECTIVE: VITAL SIGNS: Temperature is 97.8 degrees Fahrenheit, heart rate is 70 per minute and respiratory rate is 16 per minute, blood pressure is 129/64 mmHg and oxygen saturation 94% on room air. HEENT: Head is atraumatic. NECK: Supple and without JVD or thyroid enlargement. Right internal jugular vein dialysis catheter is present. HEART: Regular. LUNGS: Clear to auscultation. ABDOMEN: Soft and nontender and bowel sounds are normal. EXTREMITIES: Without any cyanosis or clubbing. Both lower legs are wrapped in dressings. NEUROLOGIC: He is at his baseline mentation. LABORATORY DATA: Today's labs showed a WBC count of 14.5, hemoglobin of 9.1, hematocrit 28.3. His ESR is 126. Sodium 136, potassium is 4.2, CO2 21, BUN 40 and creatinine 4.32. C-reactive protein is 12.3. PROBLEMS: 1. Endstage renal disease. Patient is currently being dialyzed and he is tolerating dialysis well. 2. Congestive heart failure, volume status seems very well compensated and we are removing about 1.5 liters of fluid today as tolerated. 3. Anemia. His anemia is stable at present and will continue to monitor closely. He will be given Aranesp once a week which he is already receiving. 4. Peripheral vascular disease. Patient has severe peripheral vascular disease and bilateral lower extremity ulcers .He remains on Ceftriaxone and wound care. It remains to be seen how angioplasty helps with the wound healing. The prognosis of his lower extremities remains questionable.
[2020-12-22] MEDS: WARFARIN SOD 4MG TAB PO SCH (17:30)
[2020-12-22] MEDS: DOXYCYCLINE HYCLATE 100MG TABLET PO SCH (20:09)
[2020-12-22] MEDS: NORTRIPTYLINE 10 MG CAP PO SCH (20:09)
[2020-12-22] MEDS: MIRALAX *UNIT DOSE* 17GM PACKET PO SCH (20:11)
[2020-12-22] MEDS ORDERED: CEFDINIR 300 MG CAP (OMNICEF) PO SCH (21:00)
[2020-12-22 22:00] VITALS: BP 118/61
[2020-12-23 06:00] VITALS: BP 123/63
[2020-12-23 06:21] LABS: HEMATOCRIT 28.5 % (42.0-52.0); HEMOGLOBIN 9.2 g/dl (13.5-17.5); MEAN CORPUSCULAR HEMOGLOBIN 33.3 pg (27.0-33.0); MEAN CORPUSCULAR HGB CONC 32.3 g/dl (32.0-36.5); MEAN CORPUSCULAR VOLUME 103.3 fl (80.0-96.0); PLATELET COUNT, AUTOMATED 187 10^3/uL (150-450); RED BLOOD COUNT 2.76 10^6/uL (4.30-6.10); WHITE BLOOD COUNT 13.7 10^3/uL (4.0-10.0)
[2020-12-23 06:44] LABS: CALCIUM LEVEL 8.3 MG/DL (8.8-10.2); CREATININE FOR GFR 3.59 MG/DL (0.70-1.30); GLOMERULAR FILTRATION RATE 17.7 (>42); POTASSIUM SERUM 4.1 MEQ/L (3.5-5.1)
[2020-12-23 06:55] LABS: INR 1.93; PROTHROMBIN TIME 22.5 SECONDS (12.7-14.5)
[2020-12-23] MEDS: HumaLOG INSULIN (NovoLOG) PER UNIT SC SCH ×4 (08:57→21:00)
[2020-12-23] MEDS: DOXYCYCLINE HYCLATE 100MG TABLET PO SCH ×2 (08:57→21:38)
[2020-12-23] MEDS: ASPIRIN 81MG ENTERIC TABLET PO SCH (08:57)
[2020-12-23] MEDS: PANTOPRAZOLE 40MG TAB (PROTONIX) PO SCH (08:57)
[2020-12-23] MEDS: METOPROLOL TART 50 MG TAB PO SCH ×2 (09:00→21:39)
[2020-12-23 14:00] VITALS: BP 121/61
[2020-12-23] MEDS: SANTYL OINT 30GM TOP SCH (14:57)
[2020-12-23] MEDS: DIMETHICONE 2% OINTMENT(VANICREAM) 70GM TUBE TOP SCH (14:57)
--- NOTE | 2020-12-23 15:35 | IPNPDOC ---
Date Seen The patient was seen on 12/23/20. Progress Note SUBJECTIVE: Patient seen examined at bedside. Seen ambulating independently to the restroom. States pain in lower extremities has improved although there is slight nagging pulsatile pain. No other acute events overnight. Denies chest pain shortness of breath palpitations nausea vomiting or diarrhea. OBJECTIVE PHYSICAL EXAMINATION: VITAL SIGNS: please see below General: NAD, comfortable HEENT: PERRLA, EOMI, sclerae clear Neck: supple, normal ROM, no JVD Respiratory: lungs CTAB, no wheeze, no rales, no crackles CVS: RRR, normal S1, S2, no murmurs Abdo: soft, no masses, no hepatosplenomegaly, BS+, no rebound tenderness Extremities: Numerous vascular ulcers. Pulses audible with Doppler bilaterally. MSK: no joint deformities, normal ROM Neuro: no focal neuro deficits, moving all 4 extremities, CN2-12 intact. Strength 5/5 in all 4 extremities. No nystagmus. Psych: calm, cooperative, AAO x 3 LABORATORY DATA, IMAGING STUDIES, MICROBIOLOGY: Please see below. DVT prophylaxis ordered?: On warfarin held since 12/18/20 ASSESSMENT AND PLAN: This is 75-year-old male with a past medical history of Lewy body dementia, ESRD on dialysis, type 2 diabetes, CAD status post CABG, aortic stenosis status post AVR on warfarin, CVA, peripheral arterial disease, hypertension heart failure with preserved ejection fraction, pulmonary hypertension and obstructive sleep apnea. Patient was recently discharged from acute rehab unit after a stroke. Patient returned to the hospital with altered mental status weakness shortness of breath. Patient's encephalopathy has improved and Dr. Tafoya has taken the patient to IR for angioplasty of the right lower extremity. PROBLEMS: #Ischemic ulcer of right lower leg: DC ceftaroline. Start cefdinir 300 mg twice daily x5 days.. Check procal, CRP, ESR. S/p R leg angiography with angioplasty by Dr. Tafoya on 12/21/20. She was able to open the R peroneal artery with angioplasty, expect improved flow to the DP and calcaneal. Ok to resume warfarin and ASA on 12/22/20. C/w wound care. Pulses intact by doppler. #Leukocytosis: Unclear if this is true infectious process or this is reactive from recent vascular procedure. At present afebrile. We will continue with antibiotics i.e. cefdinir 300 mg twice daily. ESR and CRP are elevated again possibly in the context of recent surgery. #Endstage renal disease, HD: nephrology following. #Chronic diastolic congestive heart failure, volume regulated by dialysis. #Hypertension, blood pressure is well-controlled on current regimen. #Peripheral artery disease as noted above. #Lewy-Body dementia: known to family. Appears to be alert today. #History of aortic stenosis, status post aortic valve replacement: ok to resume warfarin on 12/22/[address] Tafoya. Goals of care: discussed with PFS. Plan for DC on 12/26/20. Patient will be made ALC status as of 12/23/20. VS, I&O, 24H, Fishbone Vital Signs/I&O Vital Signs Date Time Temp Pulse Resp B/P (MAP) Pulse Ox O2 Delivery O2 Flow Rate FiO2 12/23/20 14:00 97.5 74 18 121/61 (81) 95 Room Air 12/21/20 11:20 2.0 I&O- Last 24 Hours up to 6 AM 12/23/20 06:00 Intake Total 550 ml Output Total 1500 ml Balance -950 ml Laboratory Data 24H LABS Laboratory Tests 2 12/22/20 16:44: Bedside Glucose (Misc Panel) 163H 12/22/20 21:24: Bedside Glucose (Misc Panel) 198H 12/23/20 05:54: Nucleated Red Blood Cells % (auto) 0.0, Prothrombin Time 22.5H, Prothromb Time International Ratio 1.93, Anion Gap 10, Glomerular Filtration Rate 17.7L, Calcium Level 8.3L 12/23/20 11:04: Bedside Glucose (Misc Panel) 254H CBC/BMP Laboratory Tests 12/23/20 05:54 Microbiology Microbiology 12/22/20 Blood Culture - Preliminary, Resulted No growth after 24 hours . All specim... 12/22/20 Blood Culture - Preliminary, Resulted No growth after 24 hours . All specim... 12/15/20 Blood Culture - Final, Complete NO GROWTH AFTER 5 DAYS LISA RANGEL MD Dec 23, 2020 15:35
[2020-12-23] MEDS: NORCO, ANEXSIA 5/325MG TABLET (HYDROcodone/ACETAMINOPHEN) PO PRN (16:00)
[2020-12-23] MEDS: WARFARIN SOD 4MG TAB PO SCH (16:35)
[2020-12-23] MEDS: MIRALAX *UNIT DOSE* 17GM PACKET PO SCH (21:00)
--- NOTE | 2020-12-23 21:10 | IPN ---
NEPHROLOGY PROGRESS NOTE DATE: 12/23/2020 SUBJECTIVE: Mr. Pabon is seen this morning on his bedside. He is sitting in the chair at the time of my visit. He reports that he had a very good night and slept well. He denies any nausea, vomiting, dyspnea or chest pain. PHYSICAL EXAMINATION: VITAL SIGNS: Temperature 98.2 degrees Fahrenheit, heart rate 82 per minute, respiratory rate 18 per minute, blood pressure 118/60 mmHg, oxygen saturation 95%. HEAD: Atraumatic. NECK: Supple and without jugular venous distention (JVD) or thyroid enlargement. Permacath is present on right upper chest. HEART SOUNDS: Regular. LUNGS: Clear with slightly diminished breath sounds at right base. ABDOMEN: Soft and nontender. Bowel sounds are normal. EXTREMITIES: Without any cyanosis or clubbing. Both lower legs are wrapped in dressings. NEUROLOGIC: He is at his baseline mentation. LABORATORY DATA: Today's labs show WBC 13.7, hemoglobin 9.2, hematocrit 28.5, platelets 187, Sodium 136, potassium 4.1, CO2 23, BUN 23, creatinine 3.59. PROBLEMS: 1. End-stage renal disease. Patient was dialyzed yesterday and does not need urgent dialysis today. He is scheduled for regular dialysis treatment on December 24, 2020. 2. Congestive heart failure. His volume status is very well compensated at present and we will continue to manage it with dialysis. He is currently not on any diuretic. 3. Anemia. Anemia is slightly worse. He is receiving Aranesp 100 mcg once a week with dialysis. 4. Peripheral vascular disease and bilateral lower extremity ulcers. Patient did have angioplasty and continues with wound care. He is also now on doxycycline 100 mg twice a day. 5. Hypertension. Blood pressure seems very well controlled on beta christian, metoprolol 50 mg twice a day.
[2020-12-23] MEDS: NORTRIPTYLINE 10 MG CAP PO SCH (21:38)
[2020-12-23 22:00] VITALS: BP 137/71
[2020-12-24 06:00] VITALS: BP 149/72
[2020-12-24] MEDS: METOPROLOL TART 50 MG TAB PO SCH ×2 (06:28→08:45)
[2020-12-24] MEDS: DOXYCYCLINE HYCLATE 100MG TABLET PO SCH ×2 (06:29→08:45)
[2020-12-24] MEDS: ASPIRIN 81MG ENTERIC TABLET PO SCH ×2 (06:29→08:44)
[2020-12-24] MEDS: PANTOPRAZOLE 40MG TAB (PROTONIX) PO SCH ×2 (06:29→08:45)
[2020-12-24] MEDS: HumaLOG INSULIN (NovoLOG) PER UNIT SC SCH ×4 (08:44→21:00)
[2020-12-24] MEDS: DIMETHICONE 2% OINTMENT(VANICREAM) 70GM TUBE TOP SCH (08:46)
--- NOTE | 2020-12-24 11:50 | IPNPDOC ---
Text Note Date of Service The patient was seen on 12/24/20. NOTE SUBJECTIVE: Pt laying in the bed, looks comfortable and pleasant.. He reports no pain no acute distress and is alert oriented to time place person. He will be receiving his dialysis this afternoon. OBJECTIVE: PHYSICAL EXAMINATION: GENERAL: Patient is awake, alert, oriented times three. HEAD AND NECK EXAM: Extraocular muscles intact. Pupils equally round and reactive to light. Mucous membranes are moist. Neck is supple. He has a tunneled hemodialysis catheter. CARDIOVASCULAR: S1, S2. Regular rate. Trace edema of the bilateral lower extremities. RESPIRATORY: Chest is clear to auscultation bilaterally. Bilateral equal air entry. No rales or rhonchi. ABDOMEN: Soft. Positive bowel sounds. Nontender. No organomegaly MUSCULOSKELETAL: Patient has ulcers on B/L feet. Look to be healing with no evidence of infection. CENTRAL NERVOUS SYSTEM (RETAIL MAINTENANCE TECHNICIAN): No focal deficit. Power is 5/5 in all ASSESSMENT AND PLAN: Patient is a 75-year-old male with a past medical history of coronary artery disease s/p coronary artery bypass grafting, severe aortic stenosis s/p AVR on Coumadin, atrial fibrillation, chronic systolic and diastolic congestive heart failure, chronic kidney disease stage IV, diabetes mellitus type 2, peripheral artery disease, pulmonary hypertension, Lewy body dementia, cerebrovascular accident, dysphagia, bilateral lower extremity arterial ulcers who is being seen by nephrology service for hemodialysis started during his hospital course due to worsening kidney function. 1. End-stage renal disease on hemodialysis on a Saturday, , Saturday: Patient will be dialyzed this afternoon. Is not complaining of any pain in his legs. His electrolytes and volume status as of this morning is optimized. 2. Anemia due to chronic renal failure: Iron panel done with transferrin saturation of 19% and iron level of 31. He is on Aranesp as well for goal hemoglobin of 10 to 11. His iron is still low. Continue treatment 3. Chronic diastolic congestive heart failure: Maintain a fluid restriction of 1800ml. Continue monitoring I's and O's. Continuous monitoring of weight. Volume status is very well controlled by dialysis 4. Peripheral arterial disease with ischemic ulcers bilateral feet: -Patient underwent angioplasty. Has been started on doxycycline twice a day. -No acute complaints as far as his ischemic ulcers are concerned. 5. Hypertension: Blood pressures are well controlled. He continues to be on Metoprolol. VS,Fishbone, I+O VS, Fishbone, I+O Vital Signs Date Time Temp Pulse Resp B/P (MAP) Pulse Ox O2 Delivery O2 Flow Rate FiO2 12/24/20 08:45 72 141/70 12/24/20 06:00 97.9 18 96 Room Air 12/21/20 11:20 2.0 I&O- Last 24 Hours up to 6 AM 12/24/20 06:00 Intake Total 180 ml Output Total 0 ml Balance 180 ml GME ATTESTATION GME ATTESTATION My faculty preceptor for this patient encounter was physically present during the encounter and was fully available. All aspects of the patient interview, examination, medical decision making process, and medical care plan development were reviewed and approved by the faculty preceptor. The faculty preceptor is aware and concurs with the plan as stated in the body of this note and will attest to such by his/her cosignature. Breezy Sterling MD Dec 24, 2020 11:45
[2020-12-24] MEDS: IRON SUCROSE 100MG 5ML VIAL (J1756 PER 1MG) IV SCH (12:07)
[2020-12-24 14:00] VITALS: BP 164/76
[2020-12-24] MEDS: NORCO, ANEXSIA 5/325MG TABLET (HYDROcodone/ACETAMINOPHEN) PO PRN (14:20)
--- NOTE | 2020-12-24 17:21 | IPNPDOC ---
Date Seen The patient was seen on 12/24/20. Progress Note SUBJECTIVE: Patient seen examined at bedside. Seen ambulating independently to the restroom. States pain in lower extremities has improved although there is slight nagging pulsatile pain. No other acute events overnight. Denies chest pain shortness of breath palpitations nausea vomiting or diarrhea. OBJECTIVE PHYSICAL EXAMINATION: VITAL SIGNS: please see below General: NAD, comfortable HEENT: PERRLA, EOMI, sclerae clear Neck: supple, normal ROM, no JVD Respiratory: lungs CTAB, no wheeze, no rales, no crackles CVS: RRR, normal S1, S2, no murmurs Abdo: soft, no masses, no hepatosplenomegaly, BS+, no rebound tenderness Extremities: Numerous vascular ulcers. Pulses audible with Doppler bilaterally. MSK: no joint deformities, normal ROM Neuro: no focal neuro deficits, moving all 4 extremities, CN2-12 intact. Strength 5/5 in all 4 extremities. No nystagmus. Psych: calm, cooperative, AAO x 3 LABORATORY DATA, IMAGING STUDIES, MICROBIOLOGY: Please see below. DVT prophylaxis ordered?: On warfarin held since 12/18/20 ASSESSMENT AND PLAN: This is 75-year-old male with a past medical history of Lewy body dementia, ESRD on dialysis, type 2 diabetes, CAD status post CABG, aortic stenosis status post AVR on warfarin, CVA, peripheral arterial disease, hypertension heart failure with preserved ejection fraction, pulmonary hypertension and obstructive sleep apnea. Patient was recently discharged from acute rehab unit after a stroke. Patient returned to the hospital with altered mental status weakness shortness of breath. Patient's encephalopathy has improved and Dr. Tafoya has taken the patient to IR for angioplasty of the right lower extremity. PROBLEMS: #Ischemic ulcer of right lower leg: DC ceftaroline. Start cefdinir 300 mg twice daily x5 days.. Check procal, CRP, ESR. S/p R leg angiography with angioplasty by Dr. Tafoya on 12/21/20. She was able to open the R peroneal artery with angioplasty, expect improved flow to the DP and calcaneal. Ok to resume warfarin and ASA on 12/22/20. C/w wound care. Pulses intact by doppler. #Leukocytosis: Unclear if this is true infectious process or this is reactive from recent vascular procedure. At present afebrile. We will continue with antibiotics i.e. cefdinir 300 mg twice daily. ESR and CRP are elevated again possibly in the context of recent surgery. #Endstage renal disease, HD: nephrology following. #Chronic diastolic congestive heart failure, volume regulated by dialysis. #Hypertension, blood pressure is well-controlled on current regimen. #Peripheral artery disease as noted above. #Lewy-Body dementia: known to family. Appears to be alert today. #History of aortic stenosis, status post aortic valve replacement: ok to resume warfarin on 12/22/[address] Tafoya. Goals of care: discussed with PFS. Plan for DC on 12/26/20. Patient will be made ALC status as of 12/23/20. VS, I&O, 24H, Fishbone Vital Signs/I&O Vital Signs Date Time Temp Pulse Resp B/P (MAP) Pulse Ox O2 Delivery O2 Flow Rate FiO2 12/24/20 15:11 16 12/24/20 14:00 97.5 74 164/76 (105) 98 Room Air 12/21/20 11:20 2.0 I&O- Last 24 Hours up to 6 AM 12/24/20 06:00 Intake Total 180 ml Output Total 0 ml Balance 180 ml Laboratory Data 24H LABS Laboratory Tests 2 12/23/20 19:56: Bedside Glucose (Misc Panel) 119H 12/24/20 08:35: Bedside Glucose (Misc Panel) 177H 12/24/20 11:43: Bedside Glucose (Misc Panel) 204H 12/24/20 14:15: Bedside Glucose (Misc Panel) 120H 12/24/20 16:40: Bedside Glucose (Misc Panel) 150H Microbiology Microbiology 12/22/20 Blood Culture - Preliminary, Resulted No Growth after 48 hours. All Specime... 12/22/20 Blood Culture - Preliminary, Resulted No Growth after 48 hours. All Specime... 12/15/20 Blood Culture - Final, Complete NO GROWTH AFTER 5 DAYS LISA RANGEL MD Dec 24, 2020 17:21
[2020-12-24] MEDS: WARFARIN SOD 4MG TAB PO SCH (17:54)
[2020-12-24] MEDS: MIRALAX *UNIT DOSE* 17GM PACKET PO SCH (21:00)
[2020-12-24] MEDS: NORTRIPTYLINE 10 MG CAP PO SCH (21:06)
[2020-12-24] MEDS ORDERED: DOXYCYCLINE HYCLATE 100 MG in D5W MINI-BAG PLUS 100 ML IV ONE (21:30)
[2020-12-24] MEDS ORDERED: METOPROLOL TART 25 MG TABLET PO ONE (21:30)
[2020-12-24] MEDS ORDERED: DOXYCYCLINE HYCLATE 100MG TABLET PO ONE (21:50)
[2020-12-25 06:00] VITALS: BP 143/69
[2020-12-25 06:34] LABS: BASO # 0.2 10^3/uL (0.0-0.2); BASO % 1.3 % (0.0-1.0); EOS # 0.9 10^3/uL (0.0-0.5); EOS % 7.2 % (0.0-3.0); HEMATOCRIT 30.6 % (42.0-52.0); HEMOGLOBIN 9.8 g/dl (13.5-17.5); LYMPH # 1.2 10^3/uL (1.5-5.0); LYMPH % 9.5 % (24.0-44.0); MEAN CORPUSCULAR HEMOGLOBIN 33.4 pg (27.0-33.0); MEAN CORPUSCULAR VOLUME 104.4 fl (80.0-96.0); MONO # 1.2 10^3/uL (0.0-0.8); MONO % 9.4 % (2.0-8.0); NEUTROPHILS # 8.8 10^3/uL (1.5-8.5); NEUTROPHILS % 71.6 % (36.0-66.0); PLATELET COUNT, AUTOMATED 233 10^3/uL (150-450); RED BLOOD COUNT 2.93 10^6/uL (4.30-6.10); WHITE BLOOD COUNT 12.3 10^3/uL (4.0-10.0)
[2020-12-25 06:51] LABS: CALCIUM LEVEL 9.1 MG/DL (8.8-10.2); CREATININE FOR GFR 3.03 MG/DL (0.70-1.30); GLOMERULAR FILTRATION RATE 21.6 (>42); MAGNESIUM LEVEL 1.8 MG/DL (1.8-2.4); POTASSIUM SERUM 4.6 MEQ/L (3.5-5.1)
[2020-12-25] MEDS: HumaLOG INSULIN (NovoLOG) PER UNIT SC SCH ×4 (07:30→21:00)
[2020-12-25] MEDS ORDERED: HALOPERIDOL 5MG/ML VIAL (J1630 PER 1) As Ordered ONE (08:34)
[2020-12-25] MEDS: SANTYL OINT 30GM TOP SCH (09:00)
[2020-12-25] MEDS ORDERED: PILL CUTTER 1 EACH XX PRN (10:45)
[2020-12-25] MEDS: HYDROmorphone 2 MG TAB PO PRN (11:11)
[2020-12-25] MEDS: DOXYCYCLINE HYCLATE 100MG TABLET PO SCH ×2 (12:41→21:37)
[2020-12-25] MEDS: METOPROLOL TART 50 MG TAB PO SCH ×2 (12:41→21:37)
[2020-12-25] MEDS: ASPIRIN 81MG ENTERIC TABLET PO SCH (12:43)
[2020-12-25] MEDS: PANTOPRAZOLE 40MG TAB (PROTONIX) PO SCH (12:43)
[2020-12-25] MEDS: DIMETHICONE 2% OINTMENT(VANICREAM) 70GM TUBE TOP SCH (12:43)
--- NOTE | 2020-12-25 14:40 | IPN ---
NEPHROLOGY PROGRESS NOTE DATE: 12/25/2020 SUBJECTIVE: Mr. Pabon is seen this morning on his bedside. His is present in the room. Patient's reports that he has been very confused, disoriented and agitated due to which he was called by nursing staff. Patient is constantly staring at his feet and repeatedly requesting to "remove this thing" off his feet while there is nothing attached to his feet. He became physically agitated in my presence, too. PHYSICAL EXAMINATION: VITAL SIGNS: Temperature 97.8 degrees Fahrenheit, heart rate 86 per minute, respiratory rate 18 per minute, blood pressure 147/79 mmHg, oxygen saturation 94% on room air. HEAD: Atraumatic. Oral mucosa is dry and some crusting on the lips is noticed. NECK: Supple and there is no jugular venous distention (JVD) or thyroid enlargement. Hemodialysis catheter is present in right internal jugular vein. HEART SOUNDS: Irregular in rhythm. LUNGS: Clear to auscultation. ABDOMEN: Soft and nontender. Bowel sounds are normal. EXTREMITIES: Without any cyanosis or clubbing. Both lower legs are wrapped in dressings. NEUROLOGIC: Patient is very confused, disoriented and agitated. LABORATORY DATA: Today's labs show WBC 12.3, hemoglobin 9.8, hematocrit 30.6, platelets 233. Sodium 136, potassium 4.6, CO2 23, BUN 29, creatinine 3.03, glucose 182, calcium 9.1. PROBLEMS: 1. End-stage renal disease. Patient was dialyzed yesterday and next dialysis will be scheduled for next week. There is no emergent need for dialysis today. I feel that it will all depend on his mental condition how he can tolerate dialysis. 2. Heart failure. Patient's is concerned about his abdominal bloating. I have reassured her that he does not seem to have ascites clinically and his volume status is very well compensated. He has no peripheral edema and lungs sound clear. We will continue to manage his volume status with hemodialysis. 3. Anemia. Anemia has been stable and we will continue to watch closely. He is being treated with Aranesp once a week during dialysis. 4. Altered mentation and agitation. This is new, as he was very pleasant and without any agitation yesterday when I saw him. This is most likely toxic and metabolic encephalopathy. 5. Peripheral vascular disease and lower extremity ulcers. He has significant peripheral vascular disease and bilateral lower extremity ulcers. He is currently on doxycycline and also getting wound care.
--- NOTE | 2020-12-25 15:10 | ECGEPIP ---
[facility] Test Date: 2020-12-25 Pat Name: MARTHA LOPEZ Department: Room: [place] [address] Gender: Male Corporate Communications Specialist: KRYSTINA : 1945 Requested By: LISA RANGEL Order Number: [id number] Reading MD: Juhi Peng Measurements Intervals [place] Rate: 91 P: 63 NH: 194 QRS: -56 QRSD: 122 T: 88 QT: 410 QTc: 504 Interpretive Statements Sinus rhythm with premature supraventricular complexes Left axis deviation Minimal voltage criteria for LVH, may be normal variant ( Sheng product ) Inferior infarct , old - cannot r/o Anterior infarct , old - cannot r/o Similar to 12/14/2020 Electronically Signed on 12-25-2020 15:10:21 EDT by Juhi Peng
[2020-12-25] MEDS: WARFARIN SOD 4MG TAB PO SCH (17:06)
--- NOTE | 2020-12-25 17:42 | IPNPDOC ---
Date Seen The patient was seen on 12/25/20. Progress Note SUBJECTIVE: Patient seen examined at bedside. Patient visibly agitated this morning confused. Hallucinating chocolate coming down the trotter. He would like to be discharged. Was redirected by nursing away from the front door of the unit. Patient holding onto walker threatening to hit nursing staff. OBJECTIVE PHYSICAL EXAMINATION: VITAL SIGNS: please see below General: NAD, comfortable HEENT: PERRLA, EOMI, sclerae clear Neck: supple, normal ROM, no JVD Respiratory: lungs CTAB, no wheeze, no rales, no crackles CVS: RRR, normal S1, S2, no murmurs Abdo: soft, no masses, no hepatosplenomegaly, BS+, no rebound tenderness Extremities: Numerous vascular ulcers. Pulses audible with Doppler bilaterally. MSK: no joint deformities, normal ROM Neuro: no focal neuro deficits, moving all 4 extremities, CN2-12 intact. Strength 5/5 in all 4 extremities. No nystagmus. Psych: calm, cooperative, AAO x 3 LABORATORY DATA, IMAGING STUDIES, MICROBIOLOGY: Please see below. DVT prophylaxis ordered?: On warfarin held since 12/18/20 ASSESSMENT AND PLAN: This is 75-year-old male with a past medical history of Lewy body dementia, ESRD on dialysis, type 2 diabetes, CAD status post CABG, aortic stenosis status post AVR on warfarin, CVA, peripheral arterial disease, hypertension heart failure with preserved ejection fraction, pulmonary hypertension and obstructive sleep apnea. Patient was recently discharged from acute rehab unit after a stroke. Patient returned to the hospital with altered mental status weakness shortness of breath. Patient's encephalopathy has improved and Dr. Tafoya has taken the patient to IR for angioplasty of the right lower extremity. PROBLEMS: #Lewy-Body dementia/delirium/encephalopathy: Patient hallucinating today, describes chocolate dripping down the trotter. Very agitated wanting to leave. Patient's is committed to visit. Discussed with Dr. Jacome start Seroquel nightly. We will start with a minimum dose of 12.5 and monitor QTC very closely checked EKG today QTC 505. #Ischemic ulcer of right lower leg: DC ceftaroline. Start cefdinir 300 mg twice daily x5 days.. Check procal, CRP, ESR. S/p R leg angiography with angioplasty by Dr. Tafoya on 12/21/20. She was able to open the R peroneal artery with angioplasty, expect improved flow to the DP and calcaneal. Ok to resume warfarin and ASA on 12/22/20. C/w wound care. Pulses intact by doppler. #Leukocytosis: Unclear if this is true infectious process or this is reactive from recent vascular procedure. At present afebrile. We will continue with antibiotics i.e. cefdinir 300 mg twice daily. ESR and CRP are elevated again possibly in the context of recent surgery. #Endstage renal disease, HD: nephrology following. #Chronic diastolic congestive heart failure, volume regulated by dialysis. #Hypertension, blood pressure is well-controlled on current regimen. #Peripheral artery disease as noted above. #History of aortic stenosis, status post aortic valve replacement: ok to resume warfarin on 12/22/[address] Tafoya. #Eroneous medication administration: I was informed by nursing that patient received morning medication on 12/24/2020 twice i.e. patient received a dose of metoprolol, just with the second 2 dose of aspirin and 2 doses of pantoprazole. I explained this to the patient's and offered my apologies. At this stage patient's blood pressure remains within normal limits. Hemoglobin is stable Goals of care: Change to acute status today due to encephalopathy and agitation. Discussed with regarding CODE STATUS. She feels quite guilty and as she is "bad larry". I explained to her that the patient's current life expectancy is short, and that he would not do well on a ventilator with a likely chance to be extubated extremely low. Patient's would like to think about this and make a decision tomorrow regarding CODE STATUS. VS, I&O, 24H, Fishbone Vital Signs/I&O Vital Signs Date Time Temp Pulse Resp B/P (MAP) Pulse Ox O2 Delivery O2 Flow Rate FiO2 12/25/20 12:41 86 147/79 12/25/20 11:41 18 12/25/20 11:11 Room Air 12/25/20 06:00 97.8 94 12/21/20 11:20 2.0 I&O- Last 24 Hours up to 6 AM 12/25/20 06:00 Intake Total 180 ml Output Total 1500 ml Balance -1320 ml Laboratory Data 24H LABS Laboratory Tests 2 12/24/20 21:04: Bedside Glucose (Misc Panel) 212H 12/25/20 05:25: Bedside Glucose (Misc Panel) 187H 12/25/20 05:58: Immature Granulocyte % (Auto) 1.0, Neutrophils (%) (Auto) 71.6H, Lymphocytes (%) (Auto) 9.5L, Monocytes (%) (Auto) 9.4H, Eosinophils (%) (Auto) 7.2H, Basophils (%) (Auto) 1.3H, Neutrophils # (Auto) 8.8H, Lymphocytes # (Auto) 1.2L, Monocytes # (Auto) 1.2H, Eosinophils # (Auto) 0.9H, Basophils # (Auto) 0.2, Nucleated Red Blood Cells % (auto) 0.0, Anion Gap 9, Glomerular Filtration Rate 21.6L, Calcium Level 9.1, Magnesium Level 1.8 12/25/20 11:24: Bedside Glucose (Misc Panel) 233H 12/25/20 16:20: Bedside Glucose (Misc Panel) 189H CBC/BMP Laboratory Tests 12/25/20 05:58 Microbiology Microbiology 12/22/20 Blood Culture - Preliminary, Resulted No Growth after 72 hours. All specime... 12/22/20 Blood Culture - Preliminary, Resulted No Growth after 72 hours. All specime... 12/15/20 Blood Culture - Final, Complete NO GROWTH AFTER 5 DAYS LISA RANGEL MD Dec 25, 2020 17:42
[2020-12-25 18:28] VITALS: BP 141/74
[2020-12-25] MEDS: MIRALAX *UNIT DOSE* 17GM PACKET PO SCH (21:36)
[2020-12-25] MEDS: NORTRIPTYLINE 10 MG CAP PO SCH (21:37)
[2020-12-25] MEDS: QUEtiapine FUMARATE 12.5 MG HALF-TAB PO SCH (21:37)
[2020-12-25 22:00] VITALS: BP 148/60
[2020-12-26] MEDS: HYDROmorphone 2 MG TAB PO PRN (00:57)
[2020-12-26 06:00] VITALS: BP 129/61
[2020-12-26 09:16] LABS: BASO # 0.1 10^3/uL (0.0-0.2); BASO % 1.2 % (0.0-1.0); EOS # 0.9 10^3/uL (0.0-0.5); EOS % 7.7 % (0.0-3.0); HEMATOCRIT 30.6 % (42.0-52.0); HEMOGLOBIN 9.9 g/dl (13.5-17.5); LYMPH # 1.2 10^3/uL (1.5-5.0); LYMPH % 10.9 % (24.0-44.0); MEAN CORPUSCULAR HEMOGLOBIN 33.7 pg (27.0-33.0); MEAN CORPUSCULAR HGB CONC 32.4 g/dl (32.0-36.5); MEAN CORPUSCULAR VOLUME 104.1 fl (80.0-96.0); MONO # 1.2 10^3/uL (0.0-0.8); MONO % 10.2 % (2.0-8.0); NEUTROPHILS # 7.9 10^3/uL (1.5-8.5); NEUTROPHILS % 68.9 % (36.0-66.0); PLATELET COUNT, AUTOMATED 232 10^3/uL (150-450); RED BLOOD COUNT 2.94 10^6/uL (4.30-6.10); WHITE BLOOD COUNT 11.4 10^3/uL (4.0-10.0)
[2020-12-26] MEDS: HumaLOG INSULIN (NovoLOG) PER UNIT SC SCH ×4 (09:36→21:00)
[2020-12-26 09:37] LABS: CREATININE FOR GFR 3.82 MG/DL (0.70-1.30); GLOMERULAR FILTRATION RATE 16.5 (>42); MAGNESIUM LEVEL 1.8 MG/DL (1.8-2.4); POTASSIUM SERUM 4.2 MEQ/L (3.5-5.1)
[2020-12-26] MEDS: PANTOPRAZOLE 40MG TAB (PROTONIX) PO SCH (09:37)
[2020-12-26] MEDS: ASPIRIN 81MG ENTERIC TABLET PO SCH (09:37)
[2020-12-26] MEDS: METOPROLOL TART 50 MG TAB PO SCH ×2 (09:37→22:27)
[2020-12-26] MEDS: DOXYCYCLINE HYCLATE 100MG TABLET PO SCH ×2 (09:37→22:27)
[2020-12-26] MEDS: DIMETHICONE 2% OINTMENT(VANICREAM) 70GM TUBE TOP SCH (09:38)
[2020-12-26 14:42] VITALS: BP 148/83
[2020-12-26] MEDS: WARFARIN SOD 4MG TAB PO SCH (18:08)
--- NOTE | 2020-12-26 20:13 | IPNPDOC ---
Date Seen The patient was seen on 12/26/20. Progress Note SUBJECTIVE: Patient seen examined at bedside. Patient is much more oriented today at least to person and to place. He denies any chest pain palpitations nausea vomiting diarrhea. His behavior is appropriate. Does appear slightly somnolent this morning. OBJECTIVE PHYSICAL EXAMINATION: VITAL SIGNS: please see below General: NAD, comfortable HEENT: PERRLA, EOMI, sclerae clear Neck: supple, normal ROM, no JVD Respiratory: lungs CTAB, no wheeze, no rales, no crackles CVS: RRR, normal S1, S2, no murmurs Abdo: soft, no masses, no hepatosplenomegaly, BS+, no rebound tenderness Extremities: Numerous vascular ulcers. Eschar noted on the dorsal surface of left second third fourth toes pulses audible with Doppler bilaterally. MSK: no joint deformities, normal ROM Neuro: no focal neuro deficits, moving all 4 extremities, CN2-12 intact. Strength 5/5 in all 4 extremities. No nystagmus. Psych: calm, cooperative, AAO x 3 LABORATORY DATA, IMAGING STUDIES, MICROBIOLOGY: Please see below. DVT prophylaxis ordered?: On warfarin held since 12/18/20 ASSESSMENT AND PLAN: This is 75-year-old male with a past medical history of Lewy body dementia, ESRD on dialysis, type 2 diabetes, CAD status post CABG, aortic stenosis status post AVR on warfarin, CVA, peripheral arterial disease, hypertension heart failure with preserved ejection fraction, pulmonary hypertension and obstructive sleep apnea. Patient was recently discharged from acute rehab unit after a stroke. Patient returned to the hospital with altered mental status weakness shortness of breath. Patient's encephalopathy has improved and Dr. Tafoya has taken the patient to IR for angioplasty of the right lower extremity. PROBLEMS: #Lewy-Body dementia/delirium/encephalopathy: Patient hallucinating today, describes chocolate dripping down the trotter. Very agitated wanting to leave. Patient's is committed to visit. Discussed with Dr Shona gonzalez Seroquel nightly. We will start with a minimum dose of 12.5 and monitor QTC very closely checked EKG today QTC 505. #Ischemic ulcer of right lower leg: DC ceftaroline. Presently on doxycycline check procal, CRP, ESR. S/p R leg angiography with angioplasty by Dr. Tafoya on 12/21/20. She was able to open the R peroneal artery with angioplasty, expect improved flow to the DP and calcaneal. Ok to resume warfarin and ASA on 12/22/20. C/w wound care. Pulses intact by doppler. Dr. Lo consulted for debridement of dorsal surface of toes on the second third fourth of left foot. Dr. Mcclure will be evaluated patient on 12/28/2019 #Leukocytosis: Unclear if this is true infectious process or this is reactive from recent vascular procedure. At present afebrile. We will continue with antibiotics i.e. doxycycline 100 mg twice daily. ESR and CRP are elevated again possibly in the context of recent surgery. #Endstage renal disease, HD: nephrology following. #Chronic diastolic congestive heart failure, volume regulated by dialysis. #Hypertension, blood pressure is well-controlled on current regimen. #Peripheral artery disease as noted above. #History of aortic stenosis, status post aortic valve replacement: ok to resume warfarin on 12/22/[address] Tafoya. #Eroneous medication administration: I was informed by nursing that patient received morning medication on 12/24/2020 twice i.e. patient received a dose of metoprolol, just with the second 2 dose of aspirin and 2 doses of pantoprazole. I explained this to the patient's and offered my apologies. At this stage patient's blood pressure remains within normal limits. Hemoglobin is stable Goals of care: Myself and and Gena father and from [facility] at extensive conversation with the patient's Arlene. She feels quite alone in this that she has no support from her children. They are estranged. She feels make guilty about making decision for DNR/DNI. She is not able to make the decision for UNDER CUTTER as this would mean discontinuing hemodialysis. She is not prepared for this. She wishes him to remain as full code at this time VS, I&O, 24H, Jose Manuelbone Vital Signs/I&O Vital Signs Date Time Temp Pulse Resp B/P (MAP) Pulse Ox O2 Delivery O2 Flow Rate FiO2 12/26/20 14:42 97.5 78 18 148/83 (104) 97 Room Air 12/21/20 11:20 2.0 I&O- Last 24 Hours up to 6 AM 12/26/20 06:00 Intake Total 440 ml Balance 440 ml Laboratory Data 24H LABS Laboratory Tests 2 12/25/20 21:30: Bedside Glucose (Misc Panel) 216H 12/26/20 04:48: Bedside Glucose (Misc Panel) 194H 12/26/20 09:02: Immature Granulocyte % (Auto) 1.1, Neutrophils (%) (Auto) 68.9H, Lymphocytes (%) (Auto) 10.9L, Monocytes (%) (Auto) 10.2H, Eosinophils (%) (Auto) 7.7H, Basophils (%) (Auto) 1.2H, Neutrophils # (Auto) 7.9, Lymphocytes # (Auto) 1.2L, Monocytes # (Auto) 1.2H, Eosinophils # (Auto) 0.9H, Basophils # (Auto) 0.1, Nucleated Red Blood Cells % (auto) 0.0, Anion Gap 9, Glomerular Filtration Rate 16.5L, Calcium Level 9.0, Magnesium Level 1.8 12/26/20 09:26: Bedside Glucose (Misc Panel) 213H 12/26/20 11:40: Bedside Glucose (Misc Panel) 242H 12/26/20 17:26: Bedside Glucose (Misc Panel) 229H CBC/BMP Laboratory Tests 12/26/20 09:02 Microbiology Microbiology 12/22/20 Blood Culture - Preliminary, Resulted No Growth after 72 hours. All specime... 12/22/20 Blood Culture - Preliminary, Resulted No Growth after 72 hours. All specime... LISA RANGEL MD Dec 26, 2020 20:13
[2020-12-26 21:00] VITALS: BP 150/83
--- NOTE | 2020-12-26 21:34 | IPNPDOC ---
Subjective CC/HPI The patient is a 75-year-old male admitted with a reason for visit of Dyspnea, Encephalopathy Acute, Weakness. Events since last encounter at bedside, Pt is awake but confused, HD tomorrow General: Denies: ROS Unobtainable, Chills, Night Sweats, Fatigue, Malaise, Normal Appetite, Other Symptoms Constitutional: Denies: Chills, Fever, Malaise, Night Sweats, Weakness, Fatigue , Weight Loss, Lethargy, Other Eyes: Denies: Pain, Vision change, Conjunctivae inflammation, Eyelid inflammation, Redness, Other ENT: Denies: Head Aches, Ear Pain, Dysphagia, Sinus Congestion, Post Nasal Drip, Sore Throat, Epistaxis, Other Symptoms Skin: Denies: Rash, Lesions, Jaundice, Bruising, Itching, Dry, Breakdown, Nail Changes, Other Pulmonary: Denies: Dyspnea, Cough, Pleuritic Chest Pain, Other Symptoms Cardiovascular: Denies: Chest Pain, Palpitations, Orthopnea, Paroxysmal Noc. Dyspnea, Edema, Lt Headedness, Other Symptoms Gastrointestinal: Denies: Nausea, Vomiting Genitourinary: Denies: Dysuria, Frequency, Incontinence, Hematuria, Retention, Other Symptoms Hematologic: Denies: Bruising, Bleeding Excessively, Petecchia, Purpura, Enlarged Lymph Nodes, Other Hematologic Endocrine: Denies: Polydipsia, Polyphagia, Polyuria, Heat Intolerance, Cold Intolerance, Other Endocrine Sx Musculoskeletal: Denies: Neck Pain, Back Pain, Shoulder Pain, Arm Pain, Hand Pain, Leg Pain, Foot Pain, Joint Pain, Muscle Pain, Spasms, Other Symptoms Neurological: Reports: Weakness, Confusion, Other Symptoms; Denies: Numbness, Incoordination, Change in speech, Seizures Psych: Reports: Memory Issues Objective Physical Examination General Exam: Alert, Other (Oriented to himself only) EYE EXAM: PERRLA, Conjunctiva & lids normal, EOMI ENT EXAM: Atraumatic, Mucous membr. moist/pink Neck Exam: Supple, Other (Rt IJ catheter); No: JVD Chest Exam: Clear to auscultation, Normal air movement Heart Exam: Rate Normal, Normal S1, Normal S2 ABDOMEN EXAM: Normal bowel sounds, Soft; No: Tenderness Male Exam: Normal Genital Exam Extremity Exam: Edema; No: Clubbing Skin Exam: Nl turgor and temperature Neuro Exam: Other (Awake and follows few commands) Psych Exam: No: Mental status NL Vital Signs/I&O Vital Signs Date Time Temp Pulse Resp B/P (MAP) Pulse Ox O2 Delivery O2 Flow Rate FiO2 12/26/20 14:42 97.5 78 18 148/83 (104) 97 Room Air 12/21/20 11:20 2.0 I&O- Last 24 Hours up to 6 AM 12/26/20 06:00 Intake Total 440 ml Balance 440 ml Laboratory Data Labs 24H Laboratory Tests 2 12/25/20 21:30: Bedside Glucose (Misc Panel) 216H 12/26/20 04:48: Bedside Glucose (Misc Panel) 194H 12/26/20 09:02: Immature Granulocyte % (Auto) 1.1, Neutrophils (%) (Auto) 68.9H, Lymphocytes (%) (Auto) 10.9L, Monocytes (%) (Auto) 10.2H, Eosinophils (%) (Auto) 7.7H, Basophils (%) (Auto) 1.2H, Neutrophils # (Auto) 7.9, Lymphocytes # (Auto) 1.2L, Monocytes # (Auto) 1.2H, Eosinophils # (Auto) 0.9H, Basophils # (Auto) 0.1, Nucleated Red Blood Cells % (auto) 0.0, Anion Gap 9, Glomerular Filtration Rate 16.5L, Calcium Level 9.0, Magnesium Level 1.8 12/26/20 09:26: Bedside Glucose (Misc Panel) 213H 12/26/20 11:40: Bedside Glucose (Misc Panel) 242H 12/26/20 17:26: Bedside Glucose (Misc Panel) 229H 12/26/20 20:32: Bedside Glucose (Misc Panel) 230H CBC/BMP Laboratory Tests 12/26/20 09:02 FSBS Laboratory Tests Test 12/25/20 21:30 12/26/20 04:48 12/26/20 09:26 12/26/20 11:40 Range/Units Bedside Glucose (Misc Panel) 216 194 213 242 83-110 MG/DL Test 12/26/20 17:26 12/26/20 20:32 Range/Units Bedside Glucose (Misc Panel) 229 230 83-110 MG/DL Current Medications Current Medications Medications (Trade) Dose Ordered Sig/Jackelin Route PRN Reason Start Time Stop Time Status Last Admin Dose Admin Acetaminophen (Tylenol Tab) 650 mg Q4H PRN PO MILD PAIN or TEMP > 101 12/14/20 21:45 12/19/20 08:28 Acetaminophen/ Hydrocodone Bitart (Ezel, Anexsia 5/325) 1 tab Q6HP PRN PO MODERATE PAIN (PS 5-7) 12/18/20 14:50 12/25/20 10:38 DC 12/24/20 14:20 Al Hydrox/Mg Hydrox/Simethicone (Mylanta) 30 ml DAILY PRN PO DYSPEPSIA 12/14/20 21:45 Aspirin (Ecotrin) 81 mg DAILY PO 12/15/20 09:00 12/26/20 09:37 Cefdinir (Omnicef) 300 mg BID PO 12/22/20 21:00 12/22/20 17:12 DC Ceftaroline Fosamil 200 mg/ Dextrose 50 ml @ 50 mls/hr Q12H IV 12/18/20 13:00 12/22/20 13:12 DC 12/22/20 01:27 Collagenase (SantyL) apply nickel th... Q2D TOP 12/17/20 09:00 12/23/20 14:57 Darbepoetin Jos (Aranesp (Dialysis Use)) 100 mcg HD IV 12/15/20 14:35 12/22/20 11:04 Dextrose (Dextrose 50%) 25 ml ASDIRECTED PRN IV SEE LABEL COMMENTS 12/15/20 00:40 Dimethicone (Vanicream Ointment) Apply to bilateral lo... DAILY TOP 12/20/20 09:00 12/26/20 09:38 Doxycycline Hyclate (Vibramycin) 100 mg BID PO 12/22/20 21:00 12/26/20 09:37 Glucagon (Glucagon) 1 mg ASDIRECTED PRN SC SEE LABEL COMMENTS 12/15/20 00:40 Glucose (Glucose) 16 GM ASDIRECTED PRN PO SEE LABEL COMMENTS 12/15/20 00:40 Heparin Sodium (Heparin) Please refer to ... ASDIRECTED XX 12/17/20 07:50 12/18/20 07:49 DC Heparin Sodium (Heparin) Please refer to ... ASDIRECTED XX 12/27/20 06:00 12/28/20 05:59 Heparin Sodium (Heparin) Please refer to ... ASDIRECTED XX 12/15/20 12:45 12/16/20 12:44 DC Heparin Sodium (Heparin) dose as per volume indica... ASDIRECTED PRN IV SEE LABEL COMMENTS 12/17/20 07:50 12/18/20 07:49 DC Heparin Sodium (Heparin) dose as per volume indica... ASDIRECTED PRN IV SEE LABEL COMMENTS 12/27/20 06:00 12/27/20 12:19 Heparin Sodium (Heparin) dose as per volume indica... ASDIRECTED PRN IV SEE LABEL COMMENTS 12/15/20 12:45 12/16/20 12:44 DC Home Med (Home Med List Complete!) ASDIRECTED XX 12/14/20 22:10 12/14/20 22:18 DC Hydromorphone HCl (Dilaudid) 1 mg Q6HP PRN PO MODERATE PAIN (PS 5-7) 12/25/20 10:40 12/26/20 00:57 Insulin Human Lispro (HumaLOG INSULIN) See Protocol Table AC SC 12/15/20 07:30 12/26/20 19:10 Insulin Human Lispro (HumaLOG INSULIN) See Protocol Table QHS SC 12/14/20 21:00 Iron (Venofer) 100 mg HD IV 12/17/20 13:35 12/24/20 12:07 Lactic Acid (Lac-Hydrin 12% Lotion) APPLY TO FEET DAILY PRN TOP DRY SKIN 12/15/20 00:40 Magnesium Hydroxide (Milk Of Magnesia) 30 ml DAILY PRN PO CONSTIPATION 12/14/20 21:45 Metoprolol Tartrate (Lopressor) 50 mg BID PO 12/14/20 23:55 12/26/20 09:37 Miscellaneous (Unresolved Clarification Entry) SEE LABEL COMMENTS DAILY XX 12/21/20 09:00 12/22/20 07:31 DC 12/21/20 09:00 Nortriptyline HCl (Pamelor) 20 mg QHS PO 12/14/20 23:55 12/25/20 21:37 Ondansetron HCl (ZOFRAN INJection) 4 mg Q8HP PRN IV NAUSEA 12/21/20 13:35 Pantoprazole Sodium (Protonix) 40 mg DAILY PO 12/15/20 09:00 12/26/20 09:37 Polyethylene Glycol (Miralax) 1 pkt QHS PO 12/14/20 21:00 12/25/20 21:36 Pregabalin (Lyrica) 25 mg BID PO 12/14/20 23:55 12/15/20 08:48 DC 12/15/20 08:26 Quetiapine Fumarate (SEROquel) 12.5 mg QHS PO 12/25/20 21:00 12/25/20 21:37 Sodium Chloride 1,000 ml @ 75 mls/hr [id number] IV 12/21/20 09:10 12/21/20 18:59 DC Sodium Chloride 1,000 ml @ 100 mls/hr Q10H IV 12/21/20 14:05 12/21/20 18:59 DC 12/21/20 14:14 Sodium Chloride (Nacl 0.9%) 200 ml ASDIRECTED PRN IV SEE LABEL COMMENTS 12/17/20 07:50 12/18/20 07:49 DC Sodium Chloride (Nacl 0.9%) 200 ml ASDIRECTED PRN IV SEE LABEL COMMENTS 12/15/20 12:45 12/16/20 12:44 DC Warfarin Sodium (Coumadin) 2 mg Th@1700 PO 12/15/20 17:00 12/17/20 08:10 DC 12/15/20 17:50 Warfarin Sodium (Coumadin) 4 mg DAILY@17 PO 12/17/20 17:00 12/19/20 12:30 DC 12/18/20 17:16 Warfarin Sodium (Coumadin) 4 mg DAILY@17 PO 12/22/20 17:00 12/26/20 18:08 Warfarin Sodium (Coumadin) 4 mg SuMoTuWeFrSa@1700 PO 12/16/20 17:00 12/17/20 08:10 DC 12/16/20 18:35 Allergies Coded Allergies: [place] (Verified Allergy, Severe, ANAPHYLAXIS, 11/09/14) Penicillins (Verified Allergy, Severe, Anaphylaxis, 02/17/20) HAS RECEIVED 2nd & 3RD GEN CEPHALOSPORINS w/o PROBLEM metformin (Verified Allergy, Severe, Tongue swelling, 07/02/18) tramadol (Verified Allergy, Unknown, 12/18/20) Wnianbp-Oup-Npj Reductase Inhibitor (Verified Adverse Reaction, In termediate, Altered Mental Status, 07/02/18) codeine (Verified Adverse Reaction, Mild, "out of it". , 02/17/20) mixed with guifenasin duloxetine (Unverified Adverse Reaction, Mild, Nausea and vomiting, 07/02/18) clindamycin (Verified Adverse Reaction, Unknown, DIARRHEA, 02/29/20) Assessment/Plan Date Seen The patient was seen on 12/26/20 at 21:29. Plan / VTE VTE Prophylaxis Ordered?: Yes Plan Orders past 48 Hours Orders Doxycycline Hyclate (Vibramycin) (12/24/20 21:50) Fingerstick Blood Sugar (12/25/20 05:25) Hydromorphone Hcl (Dilaudid) (12/25/20 10:40) Pill Cutter (Pill Cutter) (12/25/20 10:45) Electrocardiogram Adult (12/25/20 10:49) Quetiapine Fumarate (Seroquel) (12/25/20 21:00) Fingerstick Blood Sugar (12/25/20 11:24) Fingerstick Blood Sugar (12/25/20 16:20) Change Status: (12/25/20 17:39) Fingerstick Blood Sugar (12/25/20 21:30) Fingerstick Blood Sugar (12/26/20 04:48) Fingerstick Blood Sugar (12/26/20 09:26) Fingerstick Blood Sugar (12/26/20 11:40) Hemodialysis Acute Orders (12/27/20 06:00) Heparin (Heparin) (12/27/20 06:00) Heparin (Heparin) (12/27/20 06:00) Fingerstick Blood Sugar (12/26/20 17:26) Advanced Wound Care Consult (12/26/20 20:04) Rotor Pilot Consult (12/26/20 20:04) Fingerstick Blood Sugar (12/26/20 20:32) Plan Text ESRD on HD HFpEF,LVEF 65% with grade 2 diastolic dysfunction Anemia in ESRD Severe PVD Metabolic encephalopathy. HD in AM. UF goal about 2Kg. Cont LALITHA. Palliative care also on board because of multiple comorbidities. DILIA SCHROEDER MD Dec 26, 2020 21:34
[2020-12-26] MEDS: MIRALAX *UNIT DOSE* 17GM PACKET PO SCH (22:26)
[2020-12-26] MEDS: NORTRIPTYLINE 10 MG CAP PO SCH (22:27)
[2020-12-26] MEDS: QUEtiapine FUMARATE 12.5 MG HALF-TAB PO SCH (22:27)
[2020-12-27 06:00] VITALS: BP 158/81
[2020-12-27] MEDS: PANTOPRAZOLE 40MG TAB (PROTONIX) PO SCH (06:12)
[2020-12-27] MEDS: DOXYCYCLINE HYCLATE 100MG TABLET PO SCH ×2 (06:12→21:46)
[2020-12-27] MEDS: METOPROLOL TART 50 MG TAB PO SCH ×2 (06:13→21:47)
[2020-12-27] MEDS: ASPIRIN 81MG ENTERIC TABLET PO SCH (06:13)
[2020-12-27 06:52] LABS: BASO # 0.1 10^3/uL (0.0-0.2); BASO % 1.1 % (0.0-1.0); EOS # 0.9 10^3/uL (0.0-0.5); EOS % 7.7 % (0.0-3.0); HEMATOCRIT 31.6 % (42.0-52.0); LYMPH # 1.5 10^3/uL (1.5-5.0); LYMPH % 11.9 % (24.0-44.0); MEAN CORPUSCULAR HEMOGLOBIN 33.6 pg (27.0-33.0); MEAN CORPUSCULAR HGB CONC 31.6 g/dl (32.0-36.5); MONO # 1.2 10^3/uL (0.0-0.8); MONO % 10.2 % (2.0-8.0); NEUTROPHILS # 8.3 10^3/uL (1.5-8.5); PLATELET COUNT, AUTOMATED 243 10^3/uL (150-450); RED BLOOD COUNT 2.98 10^6/uL (4.30-6.10); WHITE BLOOD COUNT 12.2 10^3/uL (4.0-10.0)
[2020-12-27 07:23] LABS: CALCIUM LEVEL 8.8 MG/DL (8.8-10.2); CREATININE FOR GFR 3.94 MG/DL (0.70-1.30); GLOMERULAR FILTRATION RATE 15.9 (>42); MAGNESIUM LEVEL 1.8 MG/DL (1.8-2.4); POTASSIUM SERUM 4.2 MEQ/L (3.5-5.1)
[2020-12-27] MEDS: HumaLOG INSULIN (NovoLOG) PER UNIT SC SCH ×4 (08:20→21:00)
[2020-12-27] MEDS: DIMETHICONE 2% OINTMENT(VANICREAM) 70GM TUBE TOP SCH (08:21)
[2020-12-27] MEDS: SANTYL OINT 30GM TOP SCH (08:26)
--- NOTE | 2020-12-27 09:03 | IPN ---
PODIATRY PROGRESS NOTE DATE: 12/27/2019 TIME: Approximately 6:45 p.m. CHIEF COMPLAINT: Patient seen for evaluation of arterial ulcers on both feet. HISTORY: Patient is a patient of Dr. Chapman and he is seen today for evaluation. PAST MEDICAL HISTORY: 1. End-stage renal disease treated on dialysis. 2. Lewy Body dementia. 3. Anemia of chronic disease. 4. Non-insulin dependent diabetes. 5. Coronary artery disease. 6. Peripheral arterial disease. 7. Severe aortic stenosis status post aortic valve replacement. 8. History of multiple CVAs. 9. Hypertension. 10. Diastolic congestive heart failure. 11. Pulmonary hypertension. 12. Dyslipidemia. 13. Obstructive sleep apnea. 14. Osteoporosis. 15. History of melanoma. PHYSICAL EXAMINATION: Physical exam reveals a 75-year-old male who is in no acute distress. Evaluation of his foot reveals ulcerations present on the dorsal aspect of both feet. His leg ulcers are being treated by another provider. I am evaluating only his foot ulcerations. Ulceration present on the dorsal right hallux measures 2.2 cm x 0.9 cm. there was no fluctuance underneath the ulcer and the ulceration is stable with no signs of infection. Ulceration on the left hallux measures approximately 2 cm x 1.3 cm. similarly the ulceration has no discharge, no surrounding erythema; however, there is dependent rubor noted of both lower extremities. Ulceration on the second toe of the left foot measures 2.5 cm x 11 cm. The third toe has no ulcerations on the left foot. The fourth toe has an ulceration 2.1 cm x 0.8 cm. the ulceration on the fifth toe of the left foot measures 2 cm x 1 cm. the dorsalis pedis and posterior tibial pulses are not palpable. There is a popliteal pulse present bilaterally. Patient did have an angioplasty performed on December 21 with revascularization to the peroneal artery. ASSESSMENT: Vascular ulcers as noted on the digits of both feet. PLAN: 1. Continue with a foam dressing. 2. Continue to offload the patient's foot with either a foam boot or pillow underneath the lower leg to offload the heel. I do not recommend debridement since the patient has significant arterial disease as this may extend the size of his ulceration. Since the ulcer has no fluctuance under this wound no debridement is necessary. If the wound; however, does have fluctuance underneath would recommend debridement to relieve any fluid accumulation. Patient's questions were answered. Thank you for this consultation. FABRICIO
--- NOTE | 2020-12-27 12:38 | IPNPDOC ---
Subjective CC/HPI The patient is a 75-year-old male admitted with a reason for visit of Dyspnea, Encephalopathy Acute, Weakness. Events since last encounter Pt was seen and examined during HD. Mental status is better today. Tolerating HD. He was seen by podiatry as well for foot ulcers. General: Reports: ROS Unobtainable; Denies: Chills, Night Sweats, Fatigue, Malaise, Normal Appetite, Other Symptoms Constitutional: Denies: Chills, Fever, Malaise, Night Sweats, Weakness, Fatigue, Weight Loss, Lethargy, Other Eyes: Denies: Pain, Vision change, Conjunctivae inflammation, Eyelid inflammation, Redness, Other ENT: Denies: Head Aches, Ear Pain, Dysphagia, Sinus Congestion, Post Nasal Drip, Sore Throat, Epistaxis, Other Symptoms Skin: Denies: Rash, Lesions, Jaundice, Bruising, Itching, Dry, Breakdown, Nail Changes, Other Pulmonary: Denies: Dyspnea, Cough, Pleuritic Chest Pain, Other Symptoms Cardiovascular: Denies: Chest Pain, Palpitations, Orthopnea, Paroxysmal Noc. Dyspnea, Edema, Lt Headedness, Other Symptoms Gastrointestinal: Denies: Nausea, Vomiting, Abdominal Pain, Diarrhea, Constipation, Melena, Hematochezia, Other Symptoms Genitourinary: Denies: Dysuria, Frequency, Incontinence, Hematuria, Retention, Other Symptoms Hematologic: Denies: Bruising, Bleeding Excessively, Petecchia, Purpura, Enlarged Lymph Nodes, Other Hematologic Musculoskeletal: Reports: Other Symptoms (Foot ulcers); Denies: Neck Pain, Back Pain Neurological: Reports: Weakness, Confusion Psych: Reports: Mood Normal Objective Physical Examination General Exam: Alert, No Acute Distress, Other (Oriented x 2 today) EYE EXAM: PERRLA, Conjunctiva & lids normal, EOMI ENT EXAM: Atraumatic, Mucous membr. moist/pink Neck Exam: Supple, Other (Rt IJ catheter); No: JVD Chest Exam: Clear to auscultation, Normal air movement Heart Exam: Rate Normal, Normal S1, Normal S2 ABDOMEN EXAM: Normal bowel sounds, Soft; No: Tenderness Male Exam: Normal Genital Exam Extremity Exam: Other (Dressing on both feet due to ulcers); No: Clubbing Skin Exam: Nl turgor and temperature Neuro Exam: Other (Awake and follows few commands) Psych Exam: No: Mental status NL (Oriented to place and person) Vital Signs/I&O Vital Signs Date Time Temp Pulse Resp B/P (MAP) Pulse Ox O2 Delivery O2 Flow Rate FiO2 12/27/20 06:13 85 158/81 12/27/20 06:00 97.5 18 95 Room Air 12/21/20 11:20 2.0 I&O- Last 24 Hours up to 6 AM 12/27/20 06:00 Intake Total 780 ml Output Total 400 ml Balance 380 ml Laboratory Data Labs 24H Laboratory Tests 2 12/26/20 17:26: Bedside Glucose (Misc Panel) 229H 12/26/20 20:32: Bedside Glucose (Misc Panel) 230H 12/27/20 06:13: Immature Granulocyte % (Auto) 1.1, Neutrophils (%) (Auto) 68.0H, Lymphocytes (%) (Auto) 11.9L, Monocytes (%) (Auto) 10.2H, Eosinophils (%) (Auto) 7.7H, Basophils (%) (Auto) 1.1H, Neutrophils # (Auto) 8.3, Lymphocytes # (Auto) 1.5, Monocytes # (Auto) 1.2H, Eosinophils # (Auto) 0.9H, Basophils # (Auto) 0.1, Nucleated Red Blood Cells % (auto) 0.0, Anion Gap 7L, Glomerular Filtration Rate 15.9L, Calcium Level 8.8, Magnesium Level 1.8 CBC/BMP Laboratory Tests 12/27/20 06:13 FSBS Laboratory Tests Test 12/26/20 17:26 12/26/20 20:32 Range/Units Bedside Glucose (Misc Panel) 229 230 83-110 MG/DL Current Medications Current Medications Medications (Trade) Dose Ordered Sig/Jackelin Route PRN Reason Start Time Stop Time Status Last Admin Dose Admin Acetaminophen (Tylenol Tab) 650 mg Q4H PRN PO MILD PAIN or TEMP > 101 12/14/20 21:45 12/19/20 08:28 Acetaminophen/ Hydrocodone Bitart (Omer, Anexsia 5/325) 1 tab Q6HP PRN PO MODERATE PAIN (PS 5-7) 12/18/20 14:50 12/25/20 10:38 DC 12/24/20 14:20 Al Hydrox/Mg Hydrox/Simethicone (Mylanta) 30 ml DAILY PRN PO DYSPEPSIA 12/14/20 21:45 Aspirin (Ecotrin) 81 mg DAILY PO 12/15/20 09:00 12/27/20 06:13 Cefdinir (Omnicef) 300 mg BID PO 12/22/20 21:00 12/22/20 17:12 DC Ceftaroline Fosamil 200 mg/ Dextrose 50 ml @ 50 mls/hr Q12H IV 12/18/20 13:00 12/22/20 13:12 DC 12/22/20 01:27 Collagenase (SantyL) apply nickel th... Q2D TOP 12/17/20 09:00 12/23/20 14:57 Darbepoetin Jos (Aranesp (Dialysis Use)) 100 mcg HD IV 12/15/20 14:35 12/22/20 11:04 Dextrose (Dextrose 50%) 25 ml ASDIRECTED PRN IV SEE LABEL COMMENTS 12/15/20 00:40 Dimethicone (Vanicream Ointment) Apply to bilateral lo... DAILY TOP 12/20/20 09:00 12/27/20 08:21 Doxycycline Hyclate (Vibramycin) 100 mg BID PO 12/22/20 21:00 12/27/20 06:12 Glucagon (Glucagon) 1 mg ASDIRECTED PRN SC SEE LABEL COMMENTS 12/15/20 00:40 Glucose (Glucose) 16 GM ASDIRECTED PRN PO SEE LABEL COMMENTS 12/15/20 00:40 Heparin Sodium (Heparin) Please refer to ... ASDIRECTED XX 12/17/20 07:50 12/18/20 07:49 DC Heparin Sodium (Heparin) Please refer to ... ASDIRECTED XX 12/27/20 06:00 12/28/20 05:59 Heparin Sodium (Heparin) Please refer to ... ASDIRECTED XX 12/15/20 12:45 12/16/20 12:44 DC Heparin Sodium (Heparin) dose as per volume indica... ASDIRECTED PRN IV SEE LABEL COMMENTS 12/17/20 07:50 12/18/20 07:49 DC Heparin Sodium (Heparin) dose as per volume indica... ASDIRECTED PRN IV SEE LABEL COMMENTS 12/27/20 06:00 12/27/20 12:19 DC Heparin Sodium (Heparin) dose as per volume indica... ASDIRECTED PRN IV SEE LABEL COMMENTS 12/15/20 12:45 12/16/20 12:44 DC Home Med (Home Med List Complete!) ASDIRECTED XX 12/14/20 22:10 12/14/20 22:18 DC Hydromorphone HCl (Dilaudid) 1 mg Q6HP PRN PO MODERATE PAIN (PS 5-7) 12/25/20 10:40 12/26/20 00:57 Insulin Human Lispro (HumaLOG INSULIN) See Protocol Table AC SC 12/15/20 07:30 12/27/20 08:20 Insulin Human Lispro (HumaLOG INSULIN) See Protocol Table QHS SC 12/14/20 21:00 Iron (Venofer) 100 mg HD IV 12/17/20 13:35 12/24/20 12:07 Lactic Acid (Lac-Hydrin 12% Lotion) APPLY TO FEET DAILY PRN TOP DRY SKIN 12/15/20 00:40 Magnesium Hydroxide (Milk Of Magnesia) 30 ml DAILY PRN PO CONSTIPATION 12/14/20 21:45 Metoprolol Tartrate (Lopressor) 50 mg BID PO 12/14/20 23:55 12/27/20 06:13 Miscellaneous (Unresolved Clarification Entry) SEE LABEL COMMENTS DAILY XX 12/21/20 09:00 12/22/20 07:31 DC 12/21/20 09:00 Nortriptyline HCl (Pamelor) 20 mg QHS PO 12/14/20 23:55 12/26/20 22:27 Ondansetron HCl (ZOFRAN INJection) 4 mg Q8HP PRN IV NAUSEA 12/21/20 13:35 Pantoprazole Sodium (Protonix) 40 mg DAILY PO 12/15/20 09:00 12/27/20 06:12 Polyethylene Glycol (Miralax) 1 pkt QHS PO 12/14/20 21:00 12/26/20 22:26 Pregabalin (Lyrica) 25 mg BID PO 12/14/20 23:55 12/15/20 08:48 DC 12/15/20 08:26 Quetiapine Fumarate (SEROquel) 12.5 mg QHS PO 12/25/20 21:00 12/26/20 22:27 Sodium Chloride 1,000 ml @ 75 mls/hr [id number] IV 12/21/20 09:10 12/21/20 18:59 DC Sodium Chloride 1,000 ml @ 100 mls/hr Q10H IV 12/21/20 14:05 12/21/20 18:59 DC 12/21/20 14:14 Sodium Chloride (Nacl 0.9%) 200 ml ASDIRECTED PRN IV SEE LABEL COMMENTS 12/17/20 07:50 12/18/20 07:49 DC Sodium Chloride (Nacl 0.9%) 200 ml ASDIRECTED PRN IV SEE LABEL COMMENTS 12/15/20 12:45 12/16/20 12:44 DC Warfarin Sodium (Coumadin) 2 mg Th@1700 PO 12/15/20 17:00 12/17/20 08:10 DC 12/15/20 17:50 Warfarin Sodium (Coumadin) 4 mg DAILY@17 PO 12/17/20 17:00 12/19/20 12:30 DC 12/18/20 17:16 Warfarin Sodium (Coumadin) 4 mg DAILY@17 PO 12/22/20 17:00 12/26/20 18:08 Warfarin Sodium (Coumadin) 4 mg SuMoTuWeFrSa@1700 PO 12/16/20 17:00 12/17/20 08:10 DC 12/16/20 18:35 Allergies Coded Allergies: Manderson (Verified Allergy, Severe, ANAPHYLAXIS, 11/09/14) Penicillins (Verified Allergy, Severe, Anaphylaxis, 02/17/20) HAS RECEIVED 2nd & 3RD GEN CEPHALOSPORINS w/o PROBLEM metformin (Verified Allergy, Severe, Tongue swelling, 07/02/18) tramadol (Verified Allergy, Unknown, 12/18/20) Ntwdlql-Bja-Tao Reductase Inhibitor (Verified Adverse Reaction, Intermediate, Altered Mental Status, 07/02/18) codeine (Verified Adverse Reaction, Mild, "out of it". , 02/17/20) mixed with guifenasin duloxetine (Unverified Adverse Reaction, Mild, Nausea and vomiting, 07/02/18) clindamycin (Verified Adverse Reaction, Unknown, DIARRHEA, 02/29/20) Assessment/Plan Date Seen The patient was seen on 12/27/20 at 12:33. Plan / VTE VTE Prophylaxis Ordered?: Yes Plan Orders past 48 Hours Orders Fingerstick Blood Sugar (12/25/20 16:20) Change Status: (12/25/20 17:39) Fingerstick Blood Sugar (12/25/20 21:30) Fingerstick Blood Sugar (12/26/20 04:48) Fingerstick Blood Sugar (12/26/20 09:26) Fingerstick Blood Sugar (12/26/20 11:40) Hemodialysis Acute Orders (12/27/20 06:00) Heparin (Heparin) (12/27/20 06:00) Heparin (Heparin) (12/27/20 06:00) Fingerstick Blood Sugar (12/26/20 17:26) Advanced Wound Care Consult (12/26/20 20:04) Extruding Press Adjuster Consult (12/26/20 20:04) Fingerstick Blood Sugar (12/26/20 20:32) Prothrombin Time Profile\\Inr (12/27/20 09:30) Plan Text ESRD on HD HFpEF,LVEF 65% with grade 2 diastolic dysfunction Anemia in ESRD Severe PVD with foot ulcers. Metabolic encephalopathy. HD today with UF goal 2Kg. Cont LALITHA. Palliative care also on board because of multiple comorbidities. Foot ulcers seen by podiatry, no debridement advised. Mental status slightly better today. DILIA SCHROEDER MD Dec 27, 2020 12:37
--- NOTE | 2020-12-27 13:27 | IPNPDOC ---
Text Note Date of Service The patient was seen on 12/27/20. NOTE Subjective: Patient is a 75 year old male with a pMhx of Lewy Body Dementia, CAD s/p CABG, s/p TAVR (on Warfarin), HTN, Diastolic CHF / Pulmonary HTN, SIDNEY, DM2, ESRD on HD, Hx of CVA, Hx of PAD, who presented one day after discharge from acute rehabilitation with confusion and reported shortness of breath. Patient was admitted to hospital service for further evaluation and treatment. Patient's confusion had improved relatively quickly and patient was taken for an angioplasty of his RLE with Dr. Tafoya on 12/21. Patient was seen and examined at the bedside. Patient reports that he has not experience any chest pain, shortness breath, palpitations, nausea, vomiting, abdominal pain or diarrhea. He reports some tenderness of his toes. Objective: Vitals (See below) General: Lying in bed, appears comfortable, Awake / Alert HEENT: NC, AT CVS: +S1S2 Lungs: Fair air entry b/l, no wheezing, rales or rhonchi Abdomen: Soft, ND, NT Extremities: - Edema, - Calf tenderness Skin: Left foot first, second, fourth and fifth digits with areas of necrosis right foot first digit with area of necrosis, right leg, medial aspect with 2 areas of necrosis / ulceration Imaging: CXR 12/14: Central venous catheter noted in place. No complication is seen. Fissural fluid versus platelike atelectasis along the minor fissure. Linear fibrosis left base. Head CT 12/14: 1. No acute intracranial abnormality. 2. Atrophy and chronic deep white matter ischemic changes. Guidance fluoro 12/21: Assessment and plan: Delirium on dementia in the setting of Lewy Body Dementia - Clinically patient appears to be functioning at his baseline - No focal neurologic deficits noted - Imaging negative - Case was initially discussed with neurology who recommended starting Seroquel - c/w Seroquel QHS RLE with ulceration of medial aspect of leg and LLE with ulceration of toes - Patient remains hemodynamically stable and afebrile - Persistent amount of leukocytosis relatively unchanged - Blood cultures 12/15: No growth at 5 days - Blood cultures 12/22: No growth at 5 days - Will check Wound cultures - PCT of 2.74 - Will trend CRP - c/w Doxycycline - c/w dressing changes as ordered - c/w ASA and Coumadin; INR pending - c/w Amador control - Dr. Pate on consultation; s/p Angioplasty on 12/21 of RLE peroneal artery - Dr. Lo on consultation; appreciate their input - no plans for debridement at this time - Dr. Mcclure has been consulted; awaiting evaluation today ESRD on HD - Nephrology consulted; appreciate their input Chronic diastolic congestive heart failure - No evidence of exacerbation / appears euvolemic HTN - BP remains well controlled - c/w Metoprolol Peripheral artery disease - See above Aortic stenosis s/p TAVR - c/w Warfarin DM2 - c/w ISS Mood disorder - c.w Nortriptyline GI prophylaxis - c/w Protonix DVT prophylaxis - c/w full anticoagulation with Warfarin (INR pending) Code status: - Full code Disposition: - Awaiting evaluation from Dr. Mcclure VS,Libby, I+O VS, Libby, I+O Laboratory Tests 12/27/20 06:13 Vital Signs Date Time Temp Pulse Resp B/P (MAP) Pulse Ox O2 Delivery O2 Flow Rate FiO2 12/27/20 06:13 85 158/81 12/27/20 06:00 97.5 18 95 Room Air 12/21/20 11:20 2.0 I&O- Last 24 Hours up to 6 AM 12/27/20 06:00 Intake Total 780 ml Output Total 400 ml Balance 380 ml RYLAND NEAL MD Dec 27, 2020 13:27
[2020-12-27 14:00] VITALS: BP 113/63
[2020-12-27 15:57] LABS: INR 2.6; PROTHROMBIN TIME 28.2 SECONDS (12.7-14.5)
[2020-12-27] MEDS: WARFARIN SOD 4MG TAB PO SCH (16:43)
[2020-12-27] MEDS: HYDROmorphone 2 MG TAB PO PRN (16:44)
[2020-12-27] MEDS: MIRALAX *UNIT DOSE* 17GM PACKET PO SCH (21:46)
[2020-12-27] MEDS: MOM 30ML SUSPENSION UDC PO PRN (21:46)
[2020-12-27] MEDS: NORTRIPTYLINE 10 MG CAP PO SCH (21:46)
[2020-12-27] MEDS: QUEtiapine FUMARATE 12.5 MG HALF-TAB PO SCH (21:47)
[2020-12-27 22:00] VITALS: BP 122/67
[2020-12-28 06:00] VITALS: BP 114/65
[2020-12-28 06:26] LABS: BASO # 0.1 10^3/uL (0.0-0.2); BASO % 1.1 % (0.0-1.0); EOS # 0.9 10^3/uL (0.0-0.5); EOS % 7.4 % (0.0-3.0); HEMATOCRIT 33.2 % (42.0-52.0); HEMOGLOBIN 10.4 g/dl (13.5-17.5); LYMPH # 1.6 10^3/uL (1.5-5.0); LYMPH % 13.3 % (24.0-44.0); MEAN CORPUSCULAR HGB CONC 31.3 g/dl (32.0-36.5); MEAN CORPUSCULAR VOLUME 105.4 fl (80.0-96.0); MONO # 1.3 10^3/uL (0.0-0.8); MONO % 10.8 % (2.0-8.0); NEUTROPHILS % 66.2 % (36.0-66.0); PLATELET COUNT, AUTOMATED 244 10^3/uL (150-450); RED BLOOD COUNT 3.15 10^6/uL (4.30-6.10); WHITE BLOOD COUNT 12.1 10^3/uL (4.0-10.0)
[2020-12-28 06:46] LABS: BLOOD UREA NITROGEN 28 MG/DL (7-18); CARBON DIOXIDE LEVEL 25 MEQ/L (21-32); CHLORIDE LEVEL 103 MEQ/L (98-107); CREATININE FOR GFR 3.29 MG/DL (0.70-1.30); GLOMERULAR FILTRATION RATE 19.6 (>42); GLUCOSE, FASTING 158 MG/DL (70-100); MAGNESIUM LEVEL 2.1 MG/DL (1.8-2.4); POTASSIUM SERUM 4.7 MEQ/L (3.5-5.1); SODIUM LEVEL 136 MEQ/L (136-145)
[2020-12-28 06:51] LABS: INR 2.68; PROTHROMBIN TIME 28.9 SECONDS (12.7-14.5)
[2020-12-28] MEDS: PANTOPRAZOLE 40MG TAB (PROTONIX) PO SCH (08:56)
[2020-12-28] MEDS: HumaLOG INSULIN (NovoLOG) PER UNIT SC SCH ×4 (08:56→21:00)
[2020-12-28] MEDS: ASPIRIN 81MG ENTERIC TABLET PO SCH (08:56)
[2020-12-28] MEDS: DOXYCYCLINE HYCLATE 100MG TABLET PO SCH ×2 (08:56→21:47)
[2020-12-28] MEDS: METOPROLOL TART 50 MG TAB PO SCH ×2 (08:58→21:47)
[2020-12-28] MEDS: DIMETHICONE 2% OINTMENT(VANICREAM) 70GM TUBE TOP SCH (08:58)
--- NOTE | 2020-12-28 10:09 | CR ---
CONSULTATION DATE: 12/27/2020 Mr. Lisa is known to me from previous hospitalization. Asked to evaluate for chronic lower extremity ulcerations. HISTORY OF PRESENT ILLNESS: Mr. Lisa is a 75-year-old gentleman with a complicated history of coronary artery bypass graft (CABG), severe aortic stenosis status post aortic valve replacement with bioprosthetic valve, atrial fibrillation, biventricular heart failure, end-stage renal disease, on dialysis, diabetes, peripheral vascular disease status post angioplasty by Dr. Tafoya. Patient has been in and out of the hospital for the past month. He was home for 1 day and then came back with severe swelling of both lower extremities and pain. He came back on December 15. He had blood cultures, two sets, that were negative. Blood cultures on December 22 were also negative. He has been on ceftaroline from December 18 to December 22 and then switched to oral doxycycline. He also received one dose of intravenous (IV) vancomycin. He was seen in consultation by Dr. Mcclure for wound care, who recommended antibiotics be discontinued. His erythrocyte sedimentation rate (ESR) was 126, C-reactive protein (CRP) 12. Dr. Clements was concerned about discontinuing antibiotics and therefore asked me for a consult. The patient complains of severe pain in his feet, which is chronic. He has had no fever or chills. No nausea, vomiting, or diarrhea. In November the patient received 10 days of IV cefazolin. MEDICAL HISTORY: As previous mentioned: 1. Severe aortic stenosis. 2. Aortic valve replacement. 3. Coronary artery disease. 4. Obstructive sleep apnea. 5. End-stage renal disease, on hemodialysis. 6. Cde-Flqqgnd-udjlvoebm diabetes mellitus. 7 peripheral vascular disease. 8. Congestive heart failure, moderate to severe. 9. Hypertension. 10. Lewy body dementia. 11. Anemia of chronic disease. 12. V-fib arrest. 13. Tracheostomy with a feeding tube in the past. 14. Atrial fibrillation. 15. History of methicillin-resistant Staphylococcus aureus (MRSA) pneumonia. SURGICAL HISTORY: 1. Cataract surgery. 2. Malignant melanoma. 3. Aortic valve replacement with CABG at [facility] on 02/21/2018. 4. Left 5th and right 5th toe distal amputations. SOCIAL HISTORY: He lives with his . He denies alcohol or drug use. PHYSICAL EXAMINATION: He is a frail gentleman in no acute distress. [id number]. HEART: Normal S1, S2 with a systolic ejection murmur, /. CABG surgery well healed. LUNGS: Clear. No wheezes, rales, or rhonchi. ABDOMEN: Soft, nontender. No hepatosplenomegaly. EXTREMITIES: No edema, clubbing, or cyanosis. Multiple ulcerations are present on both feet. Left has black eschars on toe #1, 2, 4, and 5. The ulcers are along the anterior aspect of the toes and measure about 2-3 cm in length and about 1 cm in width. They have no surrounding erythema or purulence. Right big toe has a 2 x 1-1/2 black eschar that is not infected, ischemic in nature. Right calf has multiple ulcerations conglomerating together. Measure about 8 x 5 cm, erythematous, tender with purulent discharge. Superior to this bigger ulcer there are two smaller scabs, measuring 1 x 0.5 cm and 1 x 0.3 cm. ALLERGIES: PENICILLIN, STATINS, CLINDAMYCIN, CODEINE, DULOXETINE, METFORMIN, TRAMADOL. MEDICATIONS: - doxycycline 100 mg by mouth twice a day - hydromorphone as needed - Seroquel 12.5 mg by mouth every night - Zofran as needed - iron 100 mg intravenous (IV) with dialysis - Aranesp 100 mcg IV with dialysis - Protonix 40 mg daily - aspirin 81 mg daily - lactic acid - Lac-Hydrin to feet - nortriptyline 20 mg by mouth every night - polyethylene glycol one packet by mouth every night - warfarin 4 mg by mouth daily IMPRESSION: This is a 75-year-old gentleman with chronic ulcerations of both legs who has been seen in consultation by myself on December 05. The leg ulcers look much better with conservative management through the help of Dr. Mcclure and some antibiotics. There has never been a culture done. All his blood cultures have been negative. There has not been a culture done in a month. The only ulcer that looks infected is the right medial calf. A wound culture will be obtained from the purulent discharge. Continue with by mouth doxycycline in the meantime PLAN: Continue by mouth doxycycline 100 mg twice a day. Wound Gram stain and culture has been ordered. If pathogen is resistant to doxycycline, we can give him a short course, 7-10 days, for the calf ulcer. The rest of the toes are ischemic ulcerations and are not infected. Case discussed with . LABORATORY DATA: White count 12.2, hemoglobin 10, hematocrit 31.6, platelets 243. ESR 126, sodium 137, potassium 4.2, chloride 105, bicarbonate 25, BUN 43, creatinine 3.94, glucose 197, CRP 10.9. MTDD
[2020-12-28 13:09] LABS: HEPATITIS B SURFACE ANTIGEN NEGATIVE (NEGATIVE)
--- NOTE | 2020-12-28 13:27 | IPNPDOC ---
Subjective CC/HPI The patient is a 75-year-old male admitted with a reason for visit of Dyspnea, Encephalopathy Acute, Weakness. Events since last encounter HD done yesterday, Feels better. He is more alert and awake. General: Denies: ROS Unobtainable, Chills, Night Sweats, Fatigue, Malaise, Normal Appetite, Other Symptoms Constitutional: Denies: Chills, Fever, Malaise, Night Sweats, Weakness, F atigue, Weight Loss, Lethargy, Other Eyes: Denies: Pain, Vision change, Conjunctivae inflammation, Eyelid inflammation, Redness, Other ENT: Denies: Head Aches, Ear Pain, Dysphagia, Sinus Congestion, Post Nasal Drip, Sore Throat, Epistaxis, Other Symptoms Skin: Denies: Rash, Lesions, Jaundice, Bruising, Itching, Dry, Breakdown, Nail Changes, Other Pulmonary: Denies: Dyspnea, Cough, Pleuritic Chest Pain, Other Symptoms Cardiovascular: Denies: Chest Pain, Palpitations, Orthopnea, Paroxysmal Noc. Dyspnea, Edema, Lt Headedness, Other Symptoms Gastrointestinal: Denies: Nausea, Vomiting, Abdominal Pain, Diarrhea, Constipation, Melena, Hematochezia, Other Symptoms Genitourinary: Denies: Dysuria, Frequency, Incontinence, Hematuria, Retention, Other Symptoms Hematologic: Denies: Bruising, Bleeding Excessively, Petecchia, Purpura, Enlarged Lymph Nodes, Other Hematologic Musculoskeletal: Reports: Other Symptoms (Foot ulcers) Neurological: Reports: Weakness Psych: Reports: Mood Normal Objective Physical Examination General Exam: Alert (Oriented x 3), No Acute Distress, Other (Oriented x 2 today) EYE EXAM: PERRLA, Conjunctiva & lids normal, EOMI ENT EXAM: Atraumatic, Mucous membr. moist/pink Neck Exam: Supple, Other (Rt IJ catheter); No: JVD Chest Exam: Clear to auscultation, Normal air movement Heart Exam: Rate Normal, Normal S1, Normal S2 ABDOMEN EXAM: Normal bowel sounds, Soft; No: Tenderness Male Exam: Normal Genital Exam Extremity Exam: Other (Dressing on both feet due to ulcers); No: Clubbing Skin Exam: Nl turgor and temperature Neuro Exam: Other (Awake and follows few commands) Psych Exam: No: Mental status NL (Oriented to place and person) Vital Signs/I&O Vital Signs Date Time Temp Pulse Resp B/P (MAP) Pulse Ox O2 Delivery O2 Flow Rate FiO2 12/28/20 08:58 85 115/67 12/28/20 06:00 97.3 18 97 Room Air I&O- Last 24 Hours up to 6 AM 12/28/20 06:00 Intake Total 660 ml Output Total 1000 ml Balance -340 ml Laboratory Data Labs 24H Laboratory Tests 2 12/27/20 15:26: Prothrombin Time 28.2H, Prothromb Time International Ratio 2.60 12/27/20 15:27: C-Reactive Protein, Quantitative 10.90H 12/27/20 16:30: Bedside Glucose (Misc Panel) 201H 12/27/20 21:20: Bedside Glucose (Misc Panel) 121H 12/28/20 05:19: Bedside Glucose (Misc Panel) 157H 12/28/20 05:40: Immature Granulocyte % (Auto) 1.2, Neutrophils (%) (Auto) 66.2H, Lymphocytes (%) (Auto) 13.3L, Monocytes (%) (Auto) 10.8H, Eosinophils (%) (Auto) 7.4H, Basophils (%) (Auto) 1.1H, Neutrophils # (Auto) 8.0, Lymphocytes # (Auto) 1.6, Monocytes # (Auto) 1.3H, Eosinophils # (Auto) 0.9H, Basophils # (Auto) 0.1, Nucleated Red Blood Cells % (auto) 0.0, Anion Gap 8, Glomerular Filtration Rate 19.6L, Calcium Level 9.0, Magnesium Level 2.1, Hepatitis B Surface Antigen NEGATIVE 12/28/20 05:43: Prothrombin Time 28.9H, Prothromb Time International Ratio 2.68 12/28/20 11:21: Bedside Glucose (Misc Panel) 200H CBC/BMP Laboratory Tests 12/28/20 05:40 FSBS Laboratory Tests Test 12/27/20 16:30 12/27/20 21:20 12/28/20 05:19 12/28/20 11:21 Range/Units Bedside Glucose (Misc Panel) 201 121 157 200 83-110 MG/DL Current Medications Current Medications Medications (Trade) Dose Ordered Sig/Jackelin Route PRN Reason Start Time Stop Time Status Last Admin Dose Admin Acetaminophen (Tylenol Tab) 650 mg Q4H PRN PO MILD PAIN or TEMP > 101 12/14/20 21:45 12/19/20 08:28 Acetaminophen/ Hydrocodone Bitart ([place], Anexsia 5/325) 1 tab Q6HP PRN PO MODERATE PAIN (PS 5-7) 12/18/20 14:50 12/25/20 10:38 DC 12/24/20 14:20 Al Hydrox/Mg Hydrox/Simethicone (Mylanta) 30 ml DAILY PRN PO DYSPEPSIA 12/14/20 21:45 Aspirin (Ecotrin) 81 mg DAILY PO 12/15/20 09:00 12/28/20 08:56 Cefdinir (Omnicef) 300 mg BID PO 12/22/20 21:00 12/22/20 17:12 DC Ceftaroline Fosamil 200 mg/ Dextrose 50 ml @ 50 mls/hr Q12H IV 12/18/20 13:00 12/22/20 13:12 DC 12/22/20 01:27 Collagenase (SantyL) apply nickel th... Q2D TOP 12/17/20 09:00 12/23/20 14:57 Darbepoetin Jos (Aranesp (Dialysis Use)) 100 mcg HD IV 12/15/20 14:35 12/22/20 11:04 Dextrose (Dextrose 50%) 25 ml ASDIRECTED PRN IV SEE LABEL COMMENTS 12/15/20 00:40 Dimethicone (Vanicream Ointment) Apply to bilateral lo... DAILY TOP 12/20/20 09:00 12/28/20 08:58 Doxycycline Hyclate (Vibramycin) 100 mg BID PO 12/22/20 21:00 12/28/20 08:56 Glucagon (Glucagon) 1 mg ASDIRECTED PRN SC SEE LABEL COMMENTS 12/15/20 00:40 Glucose (Glucose) 16 GM ASDIRECTED PRN PO SEE LABEL COMMENTS 12/15/20 00:40 Heparin Sodium (Heparin) Please refer to ... ASDIRECTED XX 12/17/20 07:50 12/18/20 07:49 DC Heparin Sodium (Heparin) Please refer to ... ASDIRECTED XX 12/27/20 06:00 12/28/20 05:59 DC Heparin Sodium (Heparin) Please refer to ... ASDIRECTED XX 12/15/20 12:45 12/16/20 12:44 DC Heparin Sodium (Heparin) dose as per volume indica... ASDIRECTED PRN IV SEE LABEL COMMENTS 12/17/20 07:50 12/18/20 07:49 DC Heparin Sodium (Heparin) dose as per volume indica... ASDIRECTED PRN IV SEE LABEL COMMENTS 12/27/20 06:00 12/27/20 12:19 DC Heparin Sodium (Heparin) dose as per volume indica... ASDIRECTED PRN IV SEE LABEL COMMENTS 12/15/20 12:45 12/16/20 12:44 DC Home Med (Home Med List Complete!) ASDIRECTED XX 12/14/20 22:10 12/14/20 22:18 DC Hydromorphone HCl (Dilaudid) 1 mg Q6HP PRN PO MODERATE PAIN (PS 5-7) 12/25/20 10:40 12/27/20 16:44 Insulin Human Lispro (HumaLOG INSULIN) See Protocol Table AC SC 12/15/20 07:30 12/28/20 08:56 Insulin Human Lispro (HumaLOG INSULIN) See Protocol Table QHS SC 12/14/20 21:00 Iron (Venofer) 100 mg HD IV 12/17/20 13:35 12/24/20 12:07 Lactic Acid (Lac-Hydrin 12% Lotion) APPLY TO FEET DAILY PRN TOP DRY SKIN 12/15/20 00:40 Magnesium Hydroxide (Milk Of Magnesia) 30 ml DAILY PRN PO CONSTIPATION 12/14/20 21:45 12/27/20 21:46 Metoprolol Tartrate (Lopressor) 50 mg BID PO 12/14/20 23:55 12/28/20 08:58 Miscellaneous (Unresolved Clarification Entry) SEE LABEL COMMENTS DAILY XX 12/21/20 09:00 12/22/20 07:31 DC 12/21/20 09:00 Nortriptyline HCl (Pamelor) 20 mg QHS PO 12/14/20 23:55 12/27/20 21:46 Ondansetron HCl (ZOFRAN INJection) 4 mg Q8HP PRN IV NAUSEA 12/21/20 13:35 Pantoprazole Sodium (Protonix) 40 mg DAILY PO 12/15/20 09:00 12/28/20 08:56 Polyethylene Glycol (Miralax) 1 pkt QHS PO 12/14/20 21:00 12/27/20 21:46 Pregabalin (Lyrica) 25 mg BID PO 12/14/20 23:55 12/15/20 08:48 DC 12/15/20 08:26 Quetiapine Fumarate (SEROquel) 12.5 mg QHS PO 12/25/20 21:00 12/27/20 21:47 Sodium Chloride 1,000 ml @ 75 mls/hr [id number] IV 12/21/20 09:10 12/21/20 18:59 DC Sodium Chloride 1,000 ml @ 100 mls/hr Q10H IV 12/21/20 14:05 12/21/20 18:59 DC 12/21/20 14:14 Sodium Chloride (Nacl 0.9%) 200 ml ASDIRECTED PRN IV SEE LABEL COMMENTS 12/17/20 07:50 12/18/20 07:49 DC Sodium Chloride (Nacl 0.9%) 200 ml ASDIRECTED PRN IV SEE LABEL COMMENTS 12/15/20 12:45 12/16/20 12:44 DC Vitamin B Complex/ Vit C/Folic Acid (Nephro-[facility]) 1 tab DAILY PO 12/28/20 09:00 Warfarin Sodium (Coumadin) 2 mg Th@1700 PO 12/15/20 17:00 12/17/20 08:10 DC 12/15/20 17:50 Warfarin Sodium (Coumadin) 4 mg DAILY@17 PO 12/17/20 17:00 12/19/20 12:30 DC 12/18/20 17:16 Warfarin Sodium (Coumadin) 4 mg DAILY@17 PO 12/22/20 17:00 12/27/20 16:43 Warfarin Sodium (Coumadin) 4 mg SuMoTuWeFrSa@1700 PO 12/16/20 17:00 12/17/20 08:10 DC 12/16/20 18:35 Allergies Coded Allergies: Allons (Verified Allergy, Severe, ANAPHYLAXIS, 11/09/14) Penicillins (Verified Allergy, Severe, Anaphylaxis, 02/17/20) HAS RECEIVED 2nd & 3RD GEN CEPHALOSPORINS w/o PROBLEM metformin (Verified Allergy, Severe, Tongue swelling, 07/02/18) tramadol (Verified Allergy, Unknown, 12/18/20) [id number] Reductase Inhibitor (Verified Adverse Reaction, Intermediate, Altered Mental Status, 3/27/19) codeine (Verified Adverse Reaction, Mild, "out of it". , 02/17/20) mixed with guifenasin duloxetine (Unverified Adverse Reaction, Mild, Nausea and vomiting, 07/02/18) clindamycin (Verified Adverse Reaction, Unknown, DIARRHEA, 02/29/20) Assessment/Plan Date Seen The patient was seen on 12/28/20 at 13:24. Plan / VTE VTE Prophylaxis Ordered?: Yes Plan Orders past 48 Hours Orders Fingerstick Blood Sugar (12/26/20 17:26) Advanced Wound Care Consult (12/26/20 20:04) Distance Learning Administrator Consult (12/26/20 20:04) Fingerstick Blood Sugar (12/26/20 20:32) Prothrombin Time Profile\\Inr (12/27/20 09:30) Fingerstick Blood Sugar (12/27/20 12:56) C Reactive Protein Quantitativ (12/27/20 13:17) Wound Culture And Gram St (12/27/20 13:20) Prothrombin Time Profile\\Inr (12/28/20 06:00) Prothrombin Time Profile\\Inr (12/29/20 06:00) Prothrombin Time Profile\\Inr (12/30/20 06:00) Prothrombin Time Profile\\Inr (12/31/20 06:00) Infectious Disease Consult (12/27/20 15:16) Fingerstick Blood Sugar (12/27/20 16:30) Fingerstick Blood Sugar (12/27/20 21:20) Fingerstick Blood Sugar (12/28/20 05:19) Fingerstick Blood Sugar (12/28/20 11:21) Vitamin B Cmplx/Vitc/Folic Ac (Nephro-Vi (12/28/20 09:00) Hepatitis B Surface Antigen (12/28/20 05:40) Plan Text ESRD on HD HFpEF,LVEF 65% with grade 2 diastolic dysfunction Anemia in ESRD Severe PVD with foot ulcers. Metabolic encephalopathy. HD tomorrow with UF goal 2Kg. Cont LALITHA. Foot ulcers management as per wound care. Mental status better today. Check HepB S Ag DILIA SCHROEDER MD Dec 28, 2020 13:27
[2020-12-28 14:00] VITALS: BP 116/66
--- NOTE | 2020-12-28 14:16 | CR ---
ADVANCED WOUND CARE CONSULTATION VIA TELEMEDICINE DATE: 12/28/2020 REASON FOR CONSULTATION: Recommendations for right and left lower extremity wounds. CONSULT ORDERED BY: LISA RANGEL MD HISTORY OF PRESENT ILLNESS: This is a 75-year-old male diabetic with advanced peripheral vascular disease on dialysis who recently underwent angioplasty per Dr. Tafoya. Patient has been in and out of the hospital over the last month and at present placement is being considered. Right lower extremity shows a medial supramalleolar wound measuring 8.0 cm x 5.4 cm with a wound depth of 0.2 cm. This wound base shows area of fibrin slough and superficial necrotic tissue. There are areas of early granulation tissue. Wound edges appear attached without undermining or epiboli. The drainage is moderate, serosanguinous without odor. Gertrudis-wound shows minimal erythema and no maceration. The right heel shows no evidence of pressure injury. The right great toe shows a dry eschar without erythema involving the digit. There is no fluctuation. The left lower extremity shows dry eschar involving the second, fourth and fifth toes. The heel shows no wound. Patient's nutritional status is fair and he is on a supplement, Ensure and Paul. RECOMMENDATIONS: The right lower extremity medial supramalleolar wound to be dressed now with Hydrofera Blue Classic covered with an extra-absorbable dressing secured with a Kerlix or a Gal, no tape to the skin. Santyl can be applied to the wound base initially. In terms of the dry eschars involving the toes, no debridement at this time. These are dry, fixed eschars without fluctuation and there is no erythema involving the digits, therefore the eschars are acting as a biological dressing and should just be protected with foam. Dressing changes on any every other day basis. May want to consider Megace as an appetite stimulator as needed. Heel flow boots should be utilized right and left feet for protective measures. When using the heel flow boots, the Velcro strap should be padded with an ABD pad to avoid any irritation to the dorsal ankle. NOTE: Wound Care Telemedicine provides a visual assessment of a wound without the benefit of physical examination. It can assist with establishing a diagnosis and etiology. This allows for initial treatment plan. As wounds often change, it may be necessary to modify the original care. Our recommendation is periodic wound reassessment to monitor treatment. Failure to comply may result in nonhealing of a wound or wounds, possible complications, and/or a poor outcome. The recommendations given will serve as treatment options. As I will not be following this patient, this care plan will require the attending physician to give and sign the orders. Upon discharge, outpatient follow-up can be scheduled at our [facility]. FABRICIO
[2020-12-28] MEDS: HYDROmorphone 2 MG TAB PO PRN (14:34)
[2020-12-28] MEDS: NEPHRO-VIT TAB (NEPHROCAPS) PO SCH (14:38)
--- NOTE | 2020-12-28 15:11 | IPNPDOC ---
Text Note Date of Service The patient was seen on 12/28/20. NOTE Subjective: Patient is a 75 year old male with a pMhx of Lewy Body Dementia, CAD s/p CABG, s/p TAVR (on Warfarin), HTN, Diastolic CHF / Pulmonary HTN, SIDNEY, DM2, ESRD on HD, Hx of CVA, Hx of PAD, who presented one day after discharge from acute rehabilitation with confusion and reported shortness of breath. Patient was admitted to hospital service for further evaluation and treatment. Patient's confusion had improved relatively quickly and patient was taken for an angioplasty of his RLE with Dr. Tafoya on 12/21. Patient was seen and examined at the bedside. Patient reports that he has had an uneventful night. Denies any chest pain, shortness breath, palpitations, nausea, vomiting, abdominal pain or diarrhea. Reports that his feet continue to bother him. Objective: Vitals (See below) General: Patient is sitting up in bed, appears comfortable, not in any acute distress, is awake and alert HEENT: Atraumatic and normocephalic CVS: +S1S2 Lungs: Fair air entry b/l, auscultation is without wheezing, crackles, rhonchi Abdomen: Soft, nondistended, nontender Extremities: Lower extremities do not reveal edema Skin: Left foot first, second, fourth and fifth digits with areas of necrosis right foot first digit with area of necrosis, right leg, medial aspect with 2 areas of necrosis / ulceration Imaging: CXR 12/14: Central venous catheter noted in place. No complication is seen. Fissural fluid versus platelike atelectasis along the minor fissure. Linear fibrosis left base. Head CT 12/14: 1. No acute intracranial abnormality. 2. Atrophy and chronic deep white matter ischemic changes. Guidance fluoro 12/21: Assessment and plan: Delirium on dementia in the setting of Lewy Body Dementia - Patient currently appears to be functioning at baseline level of mentation - No focal neurologic deficits noted - Imaging negative - Case was initially discussed with neurology who recommended starting Seroquel - c/w Seroquel QHS RLE with ulceration of medial aspect of leg and LLE with ulceration of toes - Hemodynamically stable / Afebrile - Means relatively unchanged - Blood cultures 12/15: No growth at 5 days - Blood cultures 12/22: No growth at 5 days - Wound culture 12/22: Pending - PCT of 2.74 - CRP with slight improvement - c/w Doxycycline - c/w dressing changes as ordered - c/w ASA and Coumadin; INR pending - c/w Amador control - Dr. Tafoya on consultation; s/p Angioplasty on 12/21 of RLE peroneal artery - Dr. Lo on consultation; appreciate their input - no plans for debride ment at this time - Dr. Mcclure on consulted; appreciate their input - Dr. Cevallos on consultation; awaiting wound cultures ESRD on HD - Nephrology consulted; appreciate their input Chronic diastolic congestive heart failure - No evidence of exacerbation / appears euvolemic HTN - BP remains well controlled - c/w Metoprolol Peripheral artery disease - See above Aortic stenosis s/p TAVR - INR therapeutic - c/w Warfarin DM2 - c/w ISS Mood disorder - c/w Nortriptyline GI prophylaxis - c/w Protonix DVT prophylaxis - c/w full anticoagulation with Warfarin Code status: - Full code Disposition: - Awaiting clinical improvement - Awaiting cultures - Extensive discussion with patient and his yesterday about goals of care; presented with a hypothetical situation in which his peripheral vascular disease, worsened - Patient's family would not like to proceed with any amputation of the case overdose. However, I asked him what they would like to do as the alternative - There are still deciding what they would like to consider if that was the case; I suggested that at that time we can consider comfort if that is what they would like to do VS,Fishbone, I+O VS, Fishbone, I+O Laboratory Tests 12/28/20 05:40 Vital Signs Date Time Temp Pulse Resp B/P (MAP) Pulse Ox O2 Delivery O2 Flow Rate FiO2 12/28/20 14:34 78 18 123/68 12/28/20 14:00 97.9 97 Room Air I&O- Last 24 Hours up to 6 AM 12/28/20 06:00 Intake Total 660 ml Output Total 1000 ml Balance -340 ml RYLAND NEAL MD Dec 28, 2020 15:11
[2020-12-28] MEDS ORDERED: HYDROmorphone 2 MG TAB PO ONE (17:10)
[2020-12-28] MEDS: WARFARIN SOD 4MG TAB PO SCH (17:13)
[2020-12-28] MEDS: ACETAMINOPHEN TAB 650MG DOSE (2X325MG) PO PRN (21:48)
[2020-12-28] MEDS: QUEtiapine FUMARATE 12.5 MG HALF-TAB PO SCH (21:48)
[2020-12-28] MEDS: MIRALAX *UNIT DOSE* 17GM PACKET PO SCH (21:48)
[2020-12-28] MEDS: NORTRIPTYLINE 10 MG CAP PO SCH (21:48)
[2020-12-28 22:00] VITALS: BP 129/70
[2020-12-29 06:00] VITALS: BP 147/75
[2020-12-29] MEDS: METOPROLOL TART 50 MG TAB PO SCH ×2 (06:06→21:08)
[2020-12-29] MEDS: SANTYL OINT 30GM TOP SCH (06:07)
[2020-12-29] MEDS: NEPHRO-VIT TAB (NEPHROCAPS) PO SCH (06:07)
[2020-12-29] MEDS: PANTOPRAZOLE 40MG TAB (PROTONIX) PO SCH (06:07)
[2020-12-29] MEDS: ASPIRIN 81MG ENTERIC TABLET PO SCH (06:07)
[2020-12-29] MEDS: DOXYCYCLINE HYCLATE 100MG TABLET PO SCH (06:07)
[2020-12-29] MEDS: DIMETHICONE 2% OINTMENT(VANICREAM) 70GM TUBE TOP SCH (06:08)
[2020-12-29] MEDS: ACETAMINOPHEN TAB 650MG DOSE (2X325MG) PO PRN (06:37)
[2020-12-29 06:40] LABS: BASO # 0.1 10^3/uL (0.0-0.2); BASO % 1.3 % (0.0-1.0); EOS % 8.7 % (0.0-3.0); HEMATOCRIT 33.3 % (42.0-52.0); HEMOGLOBIN 10.6 g/dl (13.5-17.5); LYMPH # 1.4 10^3/uL (1.5-5.0); LYMPH % 12.8 % (24.0-44.0); MEAN CORPUSCULAR HEMOGLOBIN 33.3 pg (27.0-33.0); MEAN CORPUSCULAR HGB CONC 31.8 g/dl (32.0-36.5); MEAN CORPUSCULAR VOLUME 104.7 fl (80.0-96.0); MONO # 1.2 10^3/uL (0.0-0.8); MONO % 11.1 % (2.0-8.0); NEUTROPHILS # 7.1 10^3/uL (1.5-8.5); NEUTROPHILS % 64.7 % (36.0-66.0); PLATELET COUNT, AUTOMATED 238 10^3/uL (150-450); RED BLOOD COUNT 3.18 10^6/uL (4.30-6.10)
[2020-12-29 06:54] LABS: INR 2.77; PROTHROMBIN TIME 29.6 SECONDS (12.7-14.5)
[2020-12-29 07:05] LABS: CREATININE FOR GFR 4.24 MG/DL (0.70-1.30); GLOMERULAR FILTRATION RATE 14.6 (>42); POTASSIUM SERUM 4.5 MEQ/L (3.5-5.1)
[2020-12-29] MEDS: HumaLOG INSULIN (NovoLOG) PER UNIT SC SCH ×4 (07:54→21:00)
[2020-12-29 08:00] VITALS: BP 101/76
[2020-12-29] MEDS: DARBEPOETIN 100 MCG/0.5 ML *DIALYSIS* SYRINGE (J0882) IV SCH (09:59)
[2020-12-29] MEDS ORDERED: cefTRIAXone SOD 1 GM in D5W MINI-BAG PLUS 50 ML IV SCH (13:00)
[2020-12-29 14:00] VITALS: BP 135/62
--- NOTE | 2020-12-29 14:20 | IPNPDOC ---
Text Note Date of Service The patient was seen on 12/29/20. NOTE Subjective: Patient is a 75 year old male with a pMhx of Lewy Body Dementia, CAD s/p CABG, s/p TAVR (on Warfarin), HTN, Diastolic CHF / Pulmonary HTN, SIDNEY, DM2, ESRD on HD, Hx of CVA, Hx of PAD, who presented one day after discharge from acute rehabilitation with confusion and reported shortness of breath. Patient was admitted to hospital service for further evaluation and treatment. Patient's confusion had improved relatively quickly and patient was taken for an angioplasty of his RLE with Dr. Tafoya on 12/21. Patient was seen and examined at the bedside during dialysis. Currently patient denies any chest pain, shortness of breath, palpitations, nausea, vomiting or abdominal pain. He still reports pain in his feet. Objective: Vitals (See below) General: Patient is sitting up in bed, appears to be comfortable without any acute distress. He is receiving dialysis. He is awake and alert, oriented to person and place HEENT: Atraumatic and normocephalic CVS: +S1S2 Lungs: There appears to be fair air entry bilaterally without any auscultated evidence of crackles, wheezing or rhonchi Abdomen: His abdomen remains soft without any appreciated distention or tenderness Extremities: No evidence of lower extremity edema Skin: bilateral LE with dressing in place; necrosis of multiple digits noted; area of medial right leg with drainage Imaging: CXR 12/14: Central venous catheter noted in place. No complication is seen. Fissural fluid versus platelike atelectasis along the minor fissure. Linear fibrosis left base. Head CT 12/14: 1. No acute intracranial abnormality. 2. Atrophy and chronic deep white matter ischemic changes. Guidance fluoro 12/21: Assessment and plan: RLE with ulceration of medial aspect of leg and LLE with ulceration of toes - Patient has remained hemodynamically stable / Afebrile - Leukocytosis is relatively stable / Will follow up CRP tomorrow - Blood cultures 12/15: No growth at 5 days - Blood cultures 12/22: No growth at 5 days - Wound culture 12/22: E. Coli / Corynebacterium Species - PCT of 2.74 - Will start Ceftriaxone based on susceptibilities; Will DC Doxycycline - c/w dressing changes as ordered - c/w ASA and Coumadin - c/w Pain control; patient had breakthrough pain yesterday which necessitated additional pain medication - Dr. Tafoya on consultation; s/p Angioplasty on 12/21 of RLE peroneal artery - Dr. Lo on consultation; appreciate their input - no plans for debridement at this time - Dr. Mcclure on consulted; appreciate their input - Dr. Cevallos on consultation; awaiting wound cultures ESRD on HD - Nephrology consulted; appreciate their input Delirium on dementia in the setting of Lewy Body Dementia - Over the last several days. Patient has been at baseline level of mentation without any delirious episodes - Again no focal deficits were noted - Imaging negative - Case was initially discussed with Neurology; Had recommended starting Seroquel; will c/w Seroquel QHS Chronic diastolic congestive heart failure - No evidence of exacerbation / appears euvolemic HTN - BP remains well controlled - c/w Metoprolol Peripheral artery disease - See above Aortic stenosis s/p TAVR - INR therapeutic - c/w Warfarin DM2 - c/w ISS Mood disorder - c/w Nortriptyline GI prophylaxis - c/w Protonix DVT prophylaxis - c/w full anticoagulation with Warfarin Code status: - Full code Disposition: - Awaiting clinical improvement - Will continue to work with physical therapy and occupational therapy - Plan for DC tomorrow if amenable to family Libby ROMERO, I+O VSLibby I+O Laboratory Tests 12/29/20 05:55 Vital Signs Date Time Temp Pulse Resp B/P (MAP) Pulse Ox O2 Delivery O2 Flow Rate FiO2 12/29/20 06:06 71 147/75 12/29/20 06:00 97.3 18 95 Room Air I&O- Last 24 Hours up to 6 AM 12/29/20 06:00 Intake Total 450 ml Balance 450 ml RYLAND NEAL MD Dec 29, 2020 14:20
[2020-12-29] MEDS: WARFARIN SOD 4MG TAB PO SCH (17:47)
[2020-12-29 21:00] VITALS: BP 130/67
[2020-12-29] MEDS: NORTRIPTYLINE 10 MG CAP PO SCH (21:07)
[2020-12-29] MEDS: MIRALAX *UNIT DOSE* 17GM PACKET PO SCH (21:07)
[2020-12-29] MEDS: QUEtiapine FUMARATE 12.5 MG HALF-TAB PO SCH (21:07)
[2020-12-29] MEDS: HYDROmorphone 2 MG TAB PO PRN (21:16)
--- NOTE | 2020-12-29 21:39 | IPNPDOC ---
Subjective CC/HPI The patient is a 75-year-old male admitted with a reason for visit of Dyspnea, Encephalopathy Acute, Weakness. Events since last encounter Seen during HD. Bit more confused today. He c/o lower abdominal pain. Tolerating HD, goals decreased due to soft BP General: Reports: Fatigue; Denies: Chills, Night Sweats Constitutional: Reports: Malaise; Denies: Chills Eyes: Denies: Pain, Vision change ENT: Denies: Head Aches, Ear Pain Skin: Denies: Rash, Lesions Pulmonary: Denies: Dyspnea, Cough Cardiovascular: Denies: Chest Pain, Palpitations Gastrointestinal: Reports: Other Symptoms (Lower abdominal pain); Denies: Nausea Genitourinary: Denies: Dysuria, Frequency Hematologic: Denies: Bruising, Bleeding Excessively Musculoskeletal: Reports: Other Symptoms (Foot Ulcers) Neurological: Denies: Weakness, Numbness Psych: Reports: Memory Issues Objective Physical Examination General Exam: Alert (Oriented x 2), No Acute Distress EYE EXAM: PERRLA, Conjunctiva & lids normal, EOMI ENT EXAM: Atraumatic, Mucous membr. moist/pink Neck Exam: Supple, Other (Rt IJ catheter); No: JVD Chest Exam: Clear to auscultation, Normal air movement Heart Exam: Rate Normal, Normal S1, Normal S2 ABDOMEN EXAM: Normal bowel sounds, Soft; No: Tenderness Male Exam: Normal Genital Exam Extremity Exam: Other (Dressing on both feet due to ulcers); No: Clubbing Skin Exam: Nl turgor and temperature Neuro Exam: Other (Awake and follows few commands) Psych Exam: Mental status NL (Oriented to place and person) Vital Signs/I&O Vital Signs Date Time Temp Pulse Resp B/P (MAP) Pulse Ox O2 Delivery O2 Flow Rate FiO2 12/29/20 21:16 18 12/29/20 21:08 84 130/67 12/29/20 14:00 98.1 92 Room Air l I&O- Last 24 Hours up to 6 AM 12/29/20 06:00 Intake Total 450 ml Balance 450 ml Laboratory Data Labs 24H Laboratory Tests 2 12/29/20 05:55: Immature Granulocyte % (Auto) 1.4, Neutrophils (%) (Auto) 64.7, Lymphocytes (%) (Auto) 12.8L, Monocytes (%) (Auto) 11.1H, Eosinophils (%) (Auto) 8.7H, Basophils (%) (Auto) 1.3H, Neutrophils # (Auto) 7.1, Lymphocytes # (Auto) 1.4L, Monocytes # (Auto) 1.2H, Eosinophils # (Auto) 1.0H, Basophils # (Auto) 0.1, Nucleated Red Blood Cells % (auto) 0.0, Prothrombin Time 29.6H, Prothromb Time International Ratio 2.77, Anion Gap 7L, Glomerular Filtration Rate 14.6L, Calcium Level 9.0, Magnesium Level 2.0 12/29/20 13:03: Bedside Glucose (Misc Panel) 181H 12/29/20 16:25: Bedside Glucose (Misc Panel) 188H 12/29/20 19:45: Bedside Glucose (Misc Panel) 164H CBC/BMP Laboratory Tests 12/29/20 05:55 FSBS Laboratory Tests Test 12/29/20 13:03 12/29/20 16:25 12/29/20 19:45 Range/Units Bedside Glucose (Misc Panel) 181 188 164 83-110 MG/DL Current Medications Current Medications Medications (Trade) Dose Ordered Sig/Jackelin Route PRN Reason Start Time Stop Time Status Last Admin Dose Admin Acetaminophen (Tylenol Tab) 650 mg Q4H PRN PO MILD PAIN or TEMP > 101 12/14/20 21:45 12/29/20 06:37 Acetaminophen/ Hydrocodone Bitart (Pearson, Anexsia 5/325) 1 tab Q6HP PRN PO MODERATE PAIN (PS 5-7) 12/18/20 14:50 12/25/20 10:38 DC 12/24/20 14:20 Al Hydrox/Mg Hydrox/Simethicone (Mylanta) 30 ml DAILY PRN PO DYSPEPSIA 12/14/20 21:45 Aspirin (Ecotrin) 81 mg DAILY PO 12/15/20 09:00 12/29/20 06:07 Cefdinir (Omnicef) 300 mg BID PO 12/22/20 21:00 12/22/20 17:12 DC Ceftaroline Fosamil 200 mg/ Dextrose 50 ml @ 50 mls/hr Q12H IV 12/18/20 13:00 12/22/20 13:12 DC 12/22/20 01:27 Ceftriaxone Sodium 1 gm/ Dextrose 50 ml @ 100 mls/hr Q24H IV 12/29/20 13:00 12/29/20 13:56 Collagenase (SantyL) apply nickel th... Q2D TOP 12/17/20 09:00 12/29/20 06:07 Darbepoetin Jos (Aranesp (Dialysis Use)) 100 mcg HD IV 12/15/20 14:35 12/29/20 09:59 Dextrose (Dextrose 50%) 25 ml ASDIRECTED PRN IV SEE LABEL COMMENTS 12/15/20 00:40 Dimethicone (Vanicream Ointment) Apply to bilateral lo... DAILY TOP 12/20/20 09:00 12/29/20 06:08 Doxycycline Hyclate (Vibramycin) 100 mg BID PO 12/22/20 21:00 12/29/20 12:14 DC 12/29/20 06:07 Glucagon (Glucagon) 1 mg ASDIRECTED PRN SC SEE LABEL COMMENTS 12/15/20 00:40 Glucose (Glucose) 16 GM ASDIRECTED PRN PO SEE LABEL COMMENTS 12/15/20 00:40 Heparin Sodium (Heparin) Please refer to ... ASDIRECTED XX 12/17/20 07:50 12/18/20 07:49 DC Heparin Sodium (Heparin) Please refer to ... ASDIRECTED XX 12/27/20 06:00 12/28/20 05:59 DC Heparin Sodium (Heparin) Please refer to ... ASDIRECTED XX 12/29/20 06:00 12/30/20 05:59 Heparin Sodium (Heparin) Please refer to ... ASDIRECTED XX 12/15/20 12:45 12/16/20 12:44 DC Heparin Sodium (Heparin) dose as per volume indica... ASDIRECTED PRN IV SEE LABEL COMMENTS 12/17/20 07:50 12/18/20 07:49 DC Heparin Sodium (Heparin) dose as per volume indica... ASDIRECTED PRN IV SEE LABEL COMMENTS 12/27/20 06:00 12/27/20 12:19 DC Heparin Sodium (Heparin) dose as per volume indica... ASDIRECTED PRN IV SEE LABEL COMMENTS 12/29/20 06:00 12/29/20 23:19 Heparin Sodium (Heparin) dose as per volume indica... ASDIRECTED PRN IV SEE LABEL COMMENTS 12/15/20 12:45 12/16/20 12:44 DC Home Med (Home Med List Complete!) ASDIRECTED XX 12/14/20 22:10 12/14/20 22:18 DC Hydromorphone HCl (Dilaudid) 1 mg Q6HP PRN PO MODERATE PAIN (PS 5-7) 12/25/20 10:40 12/29/20 21:16 Insulin Human Lispro (HumaLOG INSULIN) See Protocol Table AC SC 12/15/20 07:30 12/29/20 18:23 Insulin Human Lispro (HumaLOG INSULIN) See Protocol Table QHS SC 12/14/20 21:00 Iron (Venofer) 100 mg HD IV 12/17/20 13:35 12/24/20 12:07 Lactic Acid (Lac-Hydrin 12% Lotion) APPLY TO FEET DAILY PRN TOP DRY SKIN 12/15/20 00:40 Magnesium Hydroxide (Milk Of Magnesia) 30 ml DAILY PRN PO CONSTIPATION 12/14/20 21:45 12/27/20 21:46 Metoprolol Tartrate (Lopressor) 50 mg BID PO 12/14/20 23:55 12/29/20 21:08 Miscellaneous (Unresolved Clarification Entry) SEE LABEL COMMENTS DAILY XX 12/21/20 09:00 12/22/20 07:31 DC 12/21/20 09:00 Nortriptyline HCl (Pamelor) 20 mg QHS PO 12/14/20 23:55 12/29/20 21:07 Ondansetron HCl (ZOFRAN INJection) 4 mg Q8HP PRN IV NAUSEA 12/21/20 13:35 Pantoprazole Sodium (Protonix) 40 mg DAILY PO 12/15/20 09:00 12/29/20 06:07 Polyethylene Glycol (Miralax) 1 pkt QHS PO 12/14/20 21:00 12/29/20 21:07 Pregabalin (Lyrica) 25 mg BID PO 12/14/20 23:55 12/15/20 08:48 DC 12/15/20 08:26 Quetiapine Fumarate (SEROquel) 12.5 mg QHS PO 12/25/20 21:00 12/29/20 21:07 Sodium Chloride 1,000 ml @ 75 mls/hr [id number] IV 12/21/20 09:10 12/21/20 18:59 DC Sodium Chloride 1,000 ml @ 100 mls/hr Q10H IV 12/21/20 14:05 12/21/20 18:59 DC 12/21/20 14:14 Sodium Chloride (Nacl 0.9%) 200 ml ASDIRECTED PRN IV SEE LABEL COMMENTS 12/17/20 07:50 12/18/20 07:49 DC Sodium Chloride (Nacl 0.9%) 200 ml ASDIRECTED PRN IV SEE LABEL COMMENTS 12/15/20 12:45 12/16/20 12:44 DC Vitamin B Complex/ Vit C/Folic Acid (Nephro-[facility]) 1 tab DAILY PO 12/28/20 09:00 12/29/20 06:07 Warfarin Sodium (Coumadin) 2 mg Th@1700 PO 12/15/20 17:00 12/17/20 08:10 DC 12/15/20 17:50 Warfarin Sodium (Coumadin) 4 mg DAILY@17 PO 12/17/20 17:00 12/19/20 12:30 DC 12/18/20 17:16 Warfarin Sodium (Coumadin) 4 mg DAILY@17 PO 12/22/20 17:00 12/29/20 17:47 Warfarin Sodium (Coumadin) 4 mg SuMoTuWeFrSa@1700 PO 12/16/20 17:00 12/17/20 08:10 DC 12/16/20 18:35 Allergies Coded Allergies: [place] (Verified Allergy, Severe, ANAPHYLAXIS, 11/09/14) Penicillins (Verified Allergy, Severe, Anaphylaxis, 02/17/20) HAS RECEIVED 2nd & 3RD GEN CEPHALOSPORINS w/o PROBLEM metformin (Verified Allergy, Severe, Tongue swelling, 07/02/18) tramadol (Verified Allergy, Unknown, 12/18/20) Oolyfuv-Fsl-Pyk Reductase Inhibitor (Verified Adverse Reaction, Intermediate, Altered Mental Status, 07/02/18) codeine (Verified Adverse Reaction, Mild, "out of it". , 02/17/20) mixed with guifenasin duloxetine (Unverified Adverse Reaction, Mild, Nausea and vomiting, 07/02/18) clindamycin (Verified Adverse Reaction, Unknown, DIARRHEA, 02/29/20) Assessment/Plan Date Seen The patient was seen on 12/29/20 in morning during HD. Plan / VTE VTE Prophylaxis Ordered?: Yes Plan Orders past 48 Hours Orders Fingerstick Blood Sugar (12/28/20 05:19) Fingerstick Blood Sugar (12/28/20 11:21) Vitamin B Cmplx/Vitc/Folic Ac (Nephro-Vi (12/28/20 09:00) Fingerstick Blood Sugar (12/28/20 16:41) Hydromorphone Hcl (Dilaudid) (12/28/20 17:10) Fingerstick Blood Sugar (12/28/20 20:23) Hemodialysis Acute Orders (12/29/20 06:00) Heparin (Heparin) (12/29/20 06:00) Heparin (Heparin) (12/29/20 06:00) Early Tray (12/29/20 06:00) Bladder Scan >300ml Notify Qmp (12/29/20 12:05) Ceftriaxone Sod (Rocephin) (12/29/20 13:00) Fingerstick Blood Sugar (12/29/20 13:03) * Nursing Order * (12/29/20 15:25) Fingerstick Blood Sugar (12/29/20 16:25) Fingerstick Blood Sugar (12/29/20 19:45) C Reactive Protein Quantitativ (12/30/20 06:00) Plan Text ESRD on HD HFpEF,LVEF 65% with grade 2 diastolic dysfunction Anemia in ESRD Severe PVD with foot ulcers. Metabolic encephalopathy. HD being doen today. UF goal decreased to 1Kg. Mental status fluctuates. Check bladder scan to r/o urinary retention and UTI. DILIA SCHROEDER MD Dec 29, 2020 21:39
[2020-12-30 05:55] VITALS: BP 148/80
[2020-12-30 06:42] LABS: BASO # 0.1 10^3/uL (0.0-0.2); BASO % 1.1 % (0.0-1.0); EOS % 9.6 % (0.0-3.0); HEMATOCRIT 33.3 % (42.0-52.0); HEMOGLOBIN 10.8 g/dl (13.5-17.5); LYMPH # 1.3 10^3/uL (1.5-5.0); LYMPH % 12.3 % (24.0-44.0); MEAN CORPUSCULAR HEMOGLOBIN 33.3 pg (27.0-33.0); MEAN CORPUSCULAR HGB CONC 32.4 g/dl (32.0-36.5); MEAN CORPUSCULAR VOLUME 102.8 fl (80.0-96.0); MONO # 1.2 10^3/uL (0.0-0.8); MONO % 11.4 % (2.0-8.0); NEUTROPHILS # 6.7 10^3/uL (1.5-8.5); NEUTROPHILS % 64.4 % (36.0-66.0); PLATELET COUNT, AUTOMATED 219 10^3/uL (150-450); RED BLOOD COUNT 3.24 10^6/uL (4.30-6.10); WHITE BLOOD COUNT 10.4 10^3/uL (4.0-10.0)
[2020-12-30 07:02] LABS: INR 3.08; PROTHROMBIN TIME 32.1 SECONDS (12.7-14.5)
[2020-12-30 07:11] LABS: C REACTIVE PROTEIN QUANTITATIV 8.83 MG/DL (0.00-0.30); CALCIUM LEVEL 8.8 MG/DL (8.8-10.2); CREATININE FOR GFR 3.3 MG/DL (0.70-1.30); GLOMERULAR FILTRATION RATE 19.6 (>42); MAGNESIUM LEVEL 2.2 MG/DL (1.8-2.4); POTASSIUM SERUM 4.5 MEQ/L (3.5-5.1)
[2020-12-30] MEDS: METOPROLOL TART 50 MG TAB PO SCH ×2 (08:28→20:47)
[2020-12-30] MEDS: PANTOPRAZOLE 40MG TAB (PROTONIX) PO SCH (08:28)
[2020-12-30] MEDS: ASPIRIN 81MG ENTERIC TABLET PO SCH (08:28)
[2020-12-30] MEDS: NEPHRO-VIT TAB (NEPHROCAPS) PO SCH (08:28)
[2020-12-30] MEDS: HumaLOG INSULIN (NovoLOG) PER UNIT SC SCH ×4 (08:28→19:56)
[2020-12-30] MEDS: ACETAMINOPHEN TAB 650MG DOSE (2X325MG) PO PRN (08:29)
[2020-12-30] MEDS: DIMETHICONE 2% OINTMENT(VANICREAM) 70GM TUBE TOP SCH (11:25)
[2020-12-30] MEDS: HYDROmorphone 2 MG TAB PO PRN (12:01)
[2020-12-30] MEDS ORDERED: QUET1TAB17 PO (12:41)
[2020-12-30] MEDS ORDERED: BACT800T5 PO (12:41)
[2020-12-30] MEDS ORDERED: BACTRIM 160MG/800MG DS TAB PO ONE (13:00)
[2020-12-30] MEDS ORDERED: CEFDINIR 300 MG CAP (OMNICEF) PO ONE (13:30)
--- NOTE | 2020-12-30 13:43 | IPNPDOC ---
Text Note Date of Service The patient was seen on 12/30/20. NOTE Subjective: Patient is a 75 year old male with a pMhx of Lewy Body Dementia, CAD s/p CABG, s/p TAVR (on Warfarin), HTN, Diastolic CHF / Pulmonary HTN, SIDNEY, DM2, ESRD on HD, Hx of CVA, Hx of PAD, who presented one day after discharge from acute rehabilitation with confusion and reported shortness of breath. Patient was admitted to hospital service for further evaluation and treatment. Patient's confusion had improved relatively quickly and patient was taken for an angioplasty of his RLE with Dr. Tafoya on 12/21. Patient was seen and examined at the bedside. Patient appears to be comfortable in bed. Denies any chest pain, shortness of breath, palpitations, nausea, vomiting, abdominal pain, so reports bilateral foot pain. Objective: Vitals (See below) General: Patient was laying in bed, appears comfortable, not in any acute distress, awake / alert HEENT: NC, AT CVS: +S1S2 Lungs: Air entry appears to be fair bilaterally without any auscultated evidence of crackles, wheezing or rhonchi Abdomen: Nondistended, nontender and soft Extremities: No edema Skin: Bilateral feet with dressing in place Imaging: CXR 12/14: Central venous catheter noted in place. No complication is seen. Fissural fluid versus platelike atelectasis along the minor fissure. Linear fibrosis left base. Head CT 12/14: 1. No acute intracranial abnormality. 2. Atrophy and chronic deep white matter ischemic changes. Guidance fluoro 12/21: Assessment and plan: RLE with ulceration of medial aspect of leg and LLE with ulceration of toes - Patient has remained hemodynamically stable / Afebrile - Leukocytosis / CRP improving - Blood cultures 12/15: No growth at 5 days - Blood cultures 12/22: No growth at 5 days - Wound culture 12/22: E. Coli / Corynebacterium Species - PCT of 2.74 - c/w Cefdinir and Doxycycline - c/w Dressing changes as ordered - c/w ASA and Coumadin - c/w Pain control - Dr. Tafoya on consultation; s/p Angioplasty on 12/21 of RLE peroneal artery - Dr. Lo on consultation; appreciate their input - no plans for debridement at this time - Dr. Mcclure on consulted; appreciate their input - Dr. Cevallos on consultation; awaiting wound cultures ESRD on HD - Nephrology consulted; appreciate their input Urinary retention - Patient with a bladder scan that revealed greater than 600 mL of urine; patient was straight catheterized; - Urine will be sent for analysis / Culture - c/w Antibiotics as stated above Delirium on dementia in the setting of Lewy Body Dementia - Over the last several days. Patient has been at baseline level of mentation without any delirious episodes - Again no focal deficits were noted - Imaging negative - Case was initially discussed with Neurology; Had recommended starting Seroquel; will c/w Seroquel QHS Chronic diastolic congestive heart failure - No evidence of exacerbation / appears euvolemic HTN - BP remains well controlled - c/w Metoprolol Peripheral artery disease - See above Aortic stenosis s/p TAVR - INR therapeutic - c/w Warfarin DM2 - c/w ISS Mood disorder - c/w Nortriptyline GI prophylaxis - c/w Protonix DVT prophylaxis - c/w full anticoagulation with Warfarin Code status: - Full code Disposition: - Awaiting clinical improvement VSLibby, I+O VSLibby I+O Laboratory Tests 12/30/20 06:26 Vital Signs Date Time Temp Pulse Resp B/P (MAP) Pulse Ox O2 Delivery O2 Flow Rate FiO2 12/30/20 12:01 18 12/30/20 08:28 87 147/78 12/30/20 05:55 97.5 97 Room Air I&O- Last 24 Hours up to 6 AM 12/30/20 06:00 Intake Total 590 ml Output Total 1000 ml Balance -410 ml RYLAND NEAL MD Dec 30, 2020 13:43
--- NOTE | 2020-12-30 13:58 | IPN ---
INFECTIOUS DISEASE PROGRESS NOTE DATE: 12/14/2020 SUBJECTIVE: Newton was complaining of still of severe pain in his feet, especially when touched. He also has a lot of anxiety and some confusion today. His is at the bedside and there was a possible discharge today. OBJECTIVE: EXTREMITIES: Right lower extremity has an ulcer measuring 8 by 6 cm with a depth of 0.2 cm. The wound base has some fibrin slough with superficial necrotic tissue but it is much better than 3 days ago. The patient has been on antibiotics with Rocephin and Doxycycline. Wound culture was positive for E-coli and MRSA Periwound has minimal erythema. There is significant tenderness. Digits of the right toe has a dry eschar without erythema. The left lower extremity toes also have dry eschars of first, second, fourth and fifth toes as well but no infection. IMPRESSION: Infected right calf ulcer with heavy growth of E-coli and MRSA. PLAN: 1. The patient has been on Rocephin and Doxycycline. He could be switched to p.o. Cefdinir 300 mg daily and Doxycycline for a total of 7 days. 2. Continue with Vashe dressings and Hydrofera Blue per Dr. Mcclure, he will follow up at the wound clinic. 3. The patient hopefully will be discharged home today. 4. He does not need any Infectious Disease follow up as outpatient. FABRICIO
[2020-12-30 14:00] VITALS: BP 144/78
[2020-12-30] MEDS: DOXYCYCLINE HYCLATE 100MG TABLET PO SCH ×2 (14:00→20:47)
[2020-12-30 20:15] VITALS: BP 127/73
[2020-12-30] MEDS: NORTRIPTYLINE 10 MG CAP PO SCH (20:47)
[2020-12-30] MEDS: MIRALAX *UNIT DOSE* 17GM PACKET PO SCH (20:47)
[2020-12-30] MEDS: QUEtiapine FUMARATE 12.5 MG HALF-TAB PO SCH (20:47)
--- NOTE | 2020-12-30 21:46 | IPNPDOC ---
Subjective CC/HPI The patient is a 75-year-old male admitted with a reason for visit of Dyspnea, Encephalopathy Acute, Weakness. Events since last encounter Pt was seen at bedside, his was also present in room. More alert today. Wound Cx with MRSA and Ecoli. Abx changed by ID. Tolerated HD well yesterday. General: Denies: Chills, Night Sweats Constitutional: Denies: Chills, Fever Eyes: Denies: Pain, Vision change ENT: Denies: Head Aches, Ear Pain Skin: Reports: Lesions, Breakdown Pulmonary: Denies: Dyspnea, Cough Cardiovascular: Denies: Chest Pain Gastrointestinal: Denies: Nausea, Vomiting Genitourinary: Reports: Dysuria, Retention Hematologic: Denies: Bruising, Bleeding Excessively Musculoskeletal: Denies: Neck Pain, Back Pain Neurological: Denies: Weakness, Numbness Psych: Reports: Mood Normal Objective Physical Examination General Exam: Alert (Oriented x 2), No Acute Distress EYE EXAM: PERRLA, Conjunctiva & lids normal, EOMI ENT EXAM: Atraumatic, Mucous membr. moist/pink Neck Exam: Supple, Other (Rt IJ catheter); No: JVD Chest Exam: Clear to auscultation, Normal air movement Heart Exam: Rate Normal, Normal S1, Normal S2 ABDOMEN EXAM: Normal bowel sounds, Soft; No: Tenderness Male Exam: No: Normal Genital Exam (Mild suprapubic tendernesss) Extremity Exam: Other (Dressing on both feet due to ulcers); No: Clubbing Skin Exam: Nl turgor and temperature Neuro Exam: Other (Awake and follows few commands) Psych Exam: Mental status NL (Oriented to place and person) Vital Signs/I&O Vital Signs Date Time Temp Pulse Resp B/P (MAP) Pulse Ox O2 Delivery O2 Flow Rate FiO2 12/30/20 20:47 88 127/73 12/30/20 20:15 98.0 20 100 Room Air I&O- Last 24 Hours up to 6 AM 12/30/20 06:00 Intake Total 590 ml Output Total 1000 ml Balance -410 ml Laboratory Data Labs 24H Laboratory Tests 2 12/30/20 06:26: Immature Granulocyte % (Auto) 1.2, Neutrophils (%) (Auto) 64.4, Lymphocytes (%) (Auto) 12.3L, Monocytes (%) (Auto) 11.4H, Eosinophils (%) (Auto) 9.6H, Basophils (%) (Auto) 1.1H, Neutrophils # (Auto) 6.7, Lymphocytes # (Auto) 1.3L, Monocytes # (Auto) 1.2H, Eosinophils # (Auto) 1.0H, Basophils # (Auto) 0.1, Nucleated Red Blood Cells % (auto) 0.0, Prothrombin Time 32.1H, Prothromb Time International Ratio 3.08, Anion Gap 10, Glomerular Filtration Rate 19.6L, Calcium Level 8.8, Magnesium Level 2.2, C-Reactive Protein, Quantitative 8.83H 12/30/20 11:47: Bedside Glucose (Misc Panel) 210H 12/30/20 13:28: Urine Color PHOEBE, Urine Appearance HAZY, Urine pH 5.0, Urine Specific [place] 1.015, Urine Protein 3+H, Urine Glucose (UA) 2+H, Urine Ketones NEGATIVE, Urine Blood NEGATIVE, Urine Nitrite NEGATIVE, Urine Bilirubin NEGATIVE, Urine Urobilinogen 0.2, Urine Leukocyte Esterase NEGATIVE, Urine WBC (Auto) 3, Urine RBC (Auto) 2, Urine Hyaline Casts (Auto) 7, Urine Bacteria (Auto) 1+H, Urine Squamous Epithelial Cells 0, Urine Amorphous Sediment SMALLH, Urine Mucus (Auto) SMALL, Urine Sperm (Auto) 12/30/20 17:04: Bedside Glucose (Misc Panel) 168H 12/30/20 19:52: Bedside Glucose (Misc Panel) 223H CBC/BMP Laboratory Tests 12/30/20 06:26 FSBS Laboratory Tests Test 12/30/20 11:47 12/30/20 17:04 12/30/20 19:52 Range/Units Bedside Glucose (Misc Panel) 210 168 223 83-110 MG/DL Current Medications Current Medications Medications (Trade) Dose Ordered Sig/Jackelin Route PRN Reason Start Time Stop Time Status Last Admin Dose Admin Acetaminophen (Tylenol Tab) 650 mg Q4H PRN PO MILD PAIN or TEMP > 101 12/14/20 21:45 12/30/20 08:29 Acetaminophen/ Hydrocodone Bitart ([place], Anexsia 5/325) 1 tab Q6HP PRN PO MODERATE PAIN (PS 5-7) 12/18/20 14:50 12/25/20 10:38 DC 12/24/20 14:20 Al Hydrox/Mg Hydrox/Simethicone (Mylanta) 30 ml DAILY PRN PO DYSPEPSIA 12/14/20 21:45 Aspirin (Ecotrin) 81 mg DAILY PO 12/15/20 09:00 12/30/20 08:28 Cefdinir (Omnicef) 300 mg BID PO 12/22/20 21:00 12/22/20 17:12 DC Cefdinir (Omnicef) 300 mg TuThSa@1600 PO 12/31/20 16:00 Ceftaroline Fosamil 200 mg/ Dextrose 50 ml @ 50 mls/hr Q12H IV 12/18/20 13:00 12/22/20 13:12 DC 12/22/20 01:27 Ceftriaxone Sodium 1 gm/ Dextrose 50 ml @ 100 mls/hr Q24H IV 12/29/20 13:00 12/30/20 12:36 DC 12/29/20 13:56 Collagenase (SantyL) apply nickel th... Q2D TOP 12/17/20 09:00 12/29/20 06:07 Darbepoetin Jos (Aranesp (Dialysis Use)) 100 mcg HD IV 12/15/20 14:35 12/29/20 09:59 Dextrose (Dextrose 50%) 25 ml ASDIRECTED PRN IV SEE LABEL COMMENTS 12/15/20 00:40 Dimethicone (Vanicream Ointment) Apply to bilateral lo... DAILY TOP 12/20/20 09:00 12/30/20 11:25 Doxycycline Hyclate (Vibramycin) 100 mg BID PO 12/22/20 21:00 12/29/20 12:14 DC 12/29/20 06:07 Doxycycline Hyclate (Vibramycin) 100 mg BID PO 12/30/20 09:00 12/30/20 20:47 Glucagon (Glucagon) 1 mg ASDIRECTED PRN SC SEE LABEL COMMENTS 12/15/20 00:40 Glucose (Glucose) 16 GM ASDIRECTED PRN PO SEE LABEL COMMENTS 12/15/20 00:40 Heparin Sodium (Heparin) Please refer to ... ASDIRECTED XX 12/17/20 07:50 12/18/20 07:49 DC Heparin Sodium (Heparin) Please refer to ... ASDIRECTED XX 12/27/20 06:00 12/28/20 05:59 DC Heparin Sodium (Heparin) Please refer to ... ASDIRECTED XX 12/29/20 06:00 12/30/20 05:59 DC Heparin Sodium (Heparin) Please refer to ... ASDIRECTED XX 12/15/20 12:45 12/16/20 12:44 DC Heparin Sodium (Heparin) dose as per volume indica... ASDIRECTED PRN IV SEE LABEL COMMENTS 12/17/20 07:50 12/18/20 07:49 DC Heparin Sodium (Heparin) dose as per volume indica... ASDIRECTED PRN IV SEE LABEL COMMENTS 12/27/20 06:00 12/27/20 12:19 DC Heparin Sodium (Heparin) dose as per volume indica... ASDIRECTED PRN IV SEE LABEL COMMENTS 12/29/20 06:00 12/29/20 23:19 DC Heparin Sodium (Heparin) dose as per volume indica... ASDIRECTED PRN IV SEE LABEL COMMENTS 12/15/20 12:45 12/16/20 12:44 DC Home Med (Home Med List Complete!) ASDIRECTED XX 12/14/20 22:10 12/14/20 22:18 DC Hydromorphone HCl (Dilaudid) 1 mg Q6HP PRN PO MODERATE PAIN (PS 5-7) 12/25/20 10:40 12/30/20 12:01 Insulin Human Lispro (HumaLOG INSULIN) See Protocol Table AC SC 12/15/20 07:30 12/30/20 18:01 Insulin Human Lispro (HumaLOG INSULIN) See Protocol Table QHS SC 12/14/20 21:00 Iron (Venofer) 100 mg HD IV 12/17/20 13:35 12/24/20 12:07 Lactic Acid (Lac-Hydrin 12% Lotion) APPLY TO FEET DAILY PRN TOP DRY SKIN 12/15/20 00:40 Magnesium Hydroxide (Milk Of Magnesia) 30 ml DAILY PRN PO CONSTIPATION 12/14/20 21:45 12/27/20 21:46 Metoprolol Tartrate (Lopressor) 50 mg BID PO 12/14/20 23:55 12/30/20 20:47 Miscellaneous (Unresolved Clarification Entry) SEE LABEL COMMENTS DAILY XX 12/21/20 09:00 12/22/20 07:31 DC 12/21/20 09:00 Nortriptyline HCl (Pamelor) 20 mg QHS PO 12/14/20 23:55 12/30/20 20:47 Ondansetron HCl (ZOFRAN INJection) 4 mg Q8HP PRN IV NAUSEA 12/21/20 13:35 Pantoprazole Sodium (Protonix) 40 mg DAILY PO 12/15/20 09:00 12/30/20 08:28 Polyethylene Glycol (Miralax) 1 pkt QHS PO 12/14/20 21:00 12/30/20 20:47 Pregabalin (Lyrica) 25 mg BID PO 12/14/20 23:55 12/15/20 08:48 DC 12/15/20 08:26 Quetiapine Fumarate (SEROquel) 12.5 mg QHS PO 12/25/20 21:00 12/30/20 20:47 Sodium Chloride 1,000 ml @ 75 mls/hr [id number] IV 12/21/20 09:10 12/21/20 18:59 DC Sodium Chloride 1,000 ml @ 100 mls/hr Q10H IV 12/21/20 14:05 12/21/20 18:59 DC 12/21/20 14:14 Sodium Chloride (Nacl 0.9%) 200 ml ASDIRECTED PRN IV SEE LABEL COMMENTS 12/17/20 07:50 12/18/20 07:49 DC Sodium Chloride (Nacl 0.9%) 200 ml ASDIRECTED PRN IV SEE LABEL COMMENTS 12/15/20 12:45 12/16/20 12:44 DC Trimethoprim/ Sulfamethoxazole (Bactrim Ds, Septra Ds 160mg/ 800mg) 1 tab DAILY@1600 PO 12/31/20 16:00 12/30/20 13:03 DC Vitamin B Complex/ Vit C/Folic Acid (Nephro-Juan Luis Rx) 1 tab DAILY PO 12/28/20 09:00 12/30/20 08:28 Warfarin Sodium (Coumadin) 2 mg Th@1700 PO 12/15/20 17:00 12/17/20 08:10 DC 12/15/20 17:50 Warfarin Sodium (Coumadin) 4 mg DAILY@17 PO 12/17/20 17:00 12/19/20 12:30 DC 12/18/20 17:16 Warfarin Sodium (Coumadin) 4 mg DAILY@17 PO 12/22/20 17:00 Hold 12/29/20 17:47 Warfarin Sodium (Coumadin) 4 mg Ney@1700 PO 12/16/20 17:00 12/17/20 08:10 DC 12/16/20 18:35 Allergies Coded Allergies: [place] (Verified Allergy, Severe, ANAPHYLAXIS, 11/09/14) Penicillins (Verified Allergy, Severe, Anaphylaxis, 02/17/20) HAS RECEIVED 2nd & 3RD GEN CEPHALOSPORINS w/o PROBLEM metformin (Verified Allergy, Severe, Tongue swelling, 07/02/18) tramadol (Verified Allergy, Unknown, 12/18/20) Ygmiqet-Otq-Gyc Reductase Inhibitor (Verified Adverse Reaction, Intermediate, Altered Mental Status, 07/02/18) codeine (Verified Adverse Reaction, Mild, "out of it". , 02/17/20) mixed with guifenasin duloxetine (Unverified Adverse Reaction, Mild, Nausea and vomiting, 07/02/18) clindamycin (Verified Adverse Reaction, Unknown, DIARRHEA, 02/29/20) Assessment/Plan Date Seen The patient was seen on 12/30/20 in AM. Plan / VTE VTE Prophylaxis Ordered?: Yes Plan Orders past 48 Hours Orders Hemodialysis Acute Orders (12/29/20 06:00) Heparin (Heparin) (12/29/20 06:00) Heparin (Heparin) (12/29/20 06:00) Early Tray (12/29/20 06:00) Bladder Scan >300ml Notify Qmp (12/29/20 12:05) Ceftriaxone Sod (Rocephin) (12/29/20 13:00) Fingerstick Blood Sugar (12/29/20 13:03) * Nursing Order * (12/29/20 15:25) Fingerstick Blood Sugar (12/29/20 16:25) Fingerstick Blood Sugar (12/29/20 19:45) C Reactive Protein Quantitativ (12/30/20 06:00) Bladder Scan (12/30/20 11:26) Fingerstick Blood Sugar (12/30/20 11:47) Discharge/Transfer Order (12/30/20 12:41) Patient Discharge Instruction (12/30/20 12:41) Catheter - Urinary Straight (12/30/20 12:50) Trimethoprim/Sulfameth 160/800 (Bactrim (12/31/20 16:00) * Nursing Order * (12/30/20 13:00) Ua W/ Reflex To Culture (12/30/20 13:00) Cefdinir (Omnicef) (12/30/20 13:30) Doxycycline Hyclate (Vibramycin) (12/30/20 09:00) Cefdinir (Omnicef) (12/31/20 16:00) Bladder Scan Frequency (12/30/20 13:01) Fingerstick Blood Sugar (12/30/20 17:04) Fingerstick Blood Sugar (12/30/20 19:52) Plan Text ESRD on HD HFpEF,LVEF 65% with grade 2 diastolic dysfunction Anemia in ESRD Severe PVD with foot ulcers--> MRSA and E Coli infection. Metabolic encephalopathy. Urinary Retention. HD tomorrow. UF goal ~1Kg. Mental status fluctuates. UA normal but 700 ml urine removed with straight cath today. Continue bladder scan. If he requires frequent straight cath then insert [place]. Doxy and Omnicef started by ID. Bactrim stopped DILIA SCHROEDER MD Dec 30, 2020 21:45
[2020-12-31 05:46] VITALS: BP 148/77
[2020-12-31] MEDS: PANTOPRAZOLE 40MG TAB (PROTONIX) PO SCH (05:59)
[2020-12-31] MEDS: DOXYCYCLINE HYCLATE 100MG TABLET PO SCH ×2 (05:59→20:38)
[2020-12-31] MEDS: METOPROLOL TART 50 MG TAB PO SCH ×2 (05:59→20:37)
[2020-12-31] MEDS: ASPIRIN 81MG ENTERIC TABLET PO SCH (05:59)
[2020-12-31] MEDS: NEPHRO-VIT TAB (NEPHROCAPS) PO SCH (05:59)
[2020-12-31 06:19] LABS: BASO # 0.1 10^3/uL (0.0-0.2); BASO % 1.1 % (0.0-1.0); EOS # 0.7 10^3/uL (0.0-0.5); EOS % 7.3 % (0.0-3.0); HEMOGLOBIN 10.9 g/dl (13.5-17.5); LYMPH # 1.3 10^3/uL (1.5-5.0); LYMPH % 12.8 % (24.0-44.0); MEAN CORPUSCULAR HEMOGLOBIN 33.3 pg (27.0-33.0); MEAN CORPUSCULAR HGB CONC 32.1 g/dl (32.0-36.5); MONO % 10.2 % (2.0-8.0); NEUTROPHILS # 6.6 10^3/uL (1.5-8.5); NEUTROPHILS % 67.4 % (36.0-66.0); PLATELET COUNT, AUTOMATED 222 10^3/uL (150-450); RED BLOOD COUNT 3.27 10^6/uL (4.30-6.10); WHITE BLOOD COUNT 9.8 10^3/uL (4.0-10.0)
[2020-12-31 06:35] LABS: INR 2.97; PROTHROMBIN TIME 31.2 SECONDS (12.7-14.5)
[2020-12-31 06:45] LABS: CALCIUM LEVEL 8.5 MG/DL (8.8-10.2); CREATININE FOR GFR 4.09 MG/DL (0.70-1.30); GLOMERULAR FILTRATION RATE 15.3 (>42); MAGNESIUM LEVEL 2.2 MG/DL (1.8-2.4); POTASSIUM SERUM 4.1 MEQ/L (3.5-5.1)
[2020-12-31 07:38] LABS: C REACTIVE PROTEIN QUANTITATIV 7.55 MG/DL (0.00-0.30)
[2020-12-31] MEDS: HumaLOG INSULIN (NovoLOG) PER UNIT SC SCH ×4 (08:14→20:30)
[2020-12-31] MEDS: SANTYL OINT 30GM TOP SCH (08:14)
[2020-12-31] MEDS: DIMETHICONE 2% OINTMENT(VANICREAM) 70GM TUBE TOP SCH (08:15)
[2020-12-31] MEDS: HYDROmorphone 2 MG TAB PO PRN (10:01)
--- NOTE | 2020-12-31 10:52 | IPNPDOC ---
Subjective CC/HPI The patient is a 75-year-old male admitted with a reason for visit of Dyspnea, Encephalopathy Acute, Weakness. Events since last encounter Pt was seen during HD in AM. Tolerating HD. Mental status at baseline. He required straight Cath for retention. No evidence of UTI on UA. General: Denies: Chills, Night Sweats Constitutional: Denies: Chills, Fever Eyes: Reports: Vision change (Hallucinates sometimes); Denies: Pain ENT: Denies: Head Aches, Ear Pain Skin: Reports: Lesions, Breakdown Pulmonary: Denies: Dyspnea, Cough Cardiovascular: Denies: Chest Pain, Palpitations Gastrointestinal: Denies: Nausea, Vomiting Genitourinary: Denies: Dysuria, Frequency Hematologic: Denies: Bruising, Bleeding Excessively Musculoskeletal: Reports: Other Symptoms (Foot ulcers) Neurological: Reports: Weakness Psych: Reports: Memory Issues Objective Physical Examination General Exam: Alert, No Acute Distress EYE EXAM: PERRLA, Conjunctiva & lids normal, EOMI ENT EXAM: Atraumatic, Mucous membr. moist/pink Neck Exam: Supple, Other; No: JVD Chest Exam: Clear to auscultation, Normal air movement Heart Exam: Rate Normal, Normal S1, Normal S2 ABDOMEN EXAM: Normal bowel sounds, Soft Extremity Exam: Other (Bilateral foot ulcers) Skin Exam: Nl turgor and temperature Neuro Exam: Other Psych Exam: Mental status NL Vital Signs/I&O Vital Signs Date Time Temp Pulse Resp B/P (MAP) Pulse Ox O2 Delivery O2 Flow Rate FiO2 12/31/20 10:01 17 12/31/20 05:59 82 148/77 12/31/20 05:46 97.9 97 Room Air I&O- Last 24 Hours up to 6 AM 12/31/20 06:00 Intake Total 380 ml Output Total 1400 ml Balance -1020 ml Laboratory Data Labs 24H Laboratory Tests 2 12/30/20 11:47: Bedside Glucose (Misc Panel) 210H 12/30/20 13:28: Urine Color PHOEBE, Urine Appearance HAZY, Urine pH 5.0, Urine Specific [place] 1.015, Urine Protein 3+H, Urine Glucose (UA) 2+H, Urine Ketones NEGATIVE, Urine Blood NEGATIVE, Urine Nitrite NEGATIVE, Urine Bilirubin NEGATIVE, Urine Urobilinogen 0.2, Urine Leukocyte Esterase NEGATIVE, Urine WBC (Auto) 3, Urine RBC (Auto) 2, Urine Hyaline Casts (Auto) 7, Urine Bacteria (Auto) 1+H, Urine Squamous Epithelial Cells 0, Urine Amorphous Sediment SMALLH, Urine Mucus (Auto) SMALL, Urine Sperm (Auto) 12/30/20 17:04: Bedside Glucose (Misc Panel) 168H 12/30/20 19:52: Bedside Glucose (Misc Panel) 223H 12/31/20 05:43: Immature Granulocyte % (Auto) 1.2, Neutrophils (%) (Auto) 67.4H, Lymphocytes (%) (Auto) 12.8L, Monocytes (%) (Auto) 10.2H, Eosinophils (%) (Auto) 7.3H, Basophils (%) (Auto) 1.1H, Neutrophils # (Auto) 6.6, Lymphocytes # (Auto) 1.3L, Monocytes # (Auto) 1.0H, Eosinophils # (Auto) 0.7H, Basophils # (Auto) 0.1, Nucleated Red Blood Cells % (auto) 0.0, Prothrombin Time 31.2H, Prothromb Time International Ratio 2.97, Anion Gap 13, Glomerular Filtration Rate 15.3L, Calcium Level 8.5L, Magnesium Level 2.2, C-Reactive Protein, Quantitative 7.55H CBC/BMP Laboratory Tests 12/31/20 05:43 FSBS Laboratory Tests Test 12/30/20 11:47 12/30/20 17:04 12/30/20 19:52 Range/Units Bedside Glucose (Misc Panel) 210 168 223 83-110 MG/DL Current Medications Current Medications Medications (Trade) Dose Ordered Sig/Jackelin Route PRN Reason Start Time Stop Time Status Last Admin Dose Admin Acetaminophen (Tylenol Tab) 650 mg Q4H PRN PO MILD PAIN or TEMP > 101 12/14/20 21:45 12/30/20 08:29 Acetaminophen/ Hydrocodone Bitart ([place], Anexsia 5/325) 1 tab Q6HP PRN PO MODERATE PAIN (PS 5-7) 12/18/20 14:50 12/25/20 10:38 DC 12/24/20 14:20 Al Hydrox/Mg Hydrox/Simethicone (Mylanta) 30 ml DAILY PRN PO DYSPEPSIA 12/14/20 21:45 Aspirin (Ecotrin) 81 mg DAILY PO 12/15/20 09:00 12/31/20 05:59 Cefdinir (Omnicef) 300 mg BID PO 12/22/20 21:00 12/22/20 17:12 DC Cefdinir (Omnicef) 300 mg TuThSa@1600 PO 12/31/20 16:00 Ceftaroline Fosamil 200 mg/ Dextrose 50 ml @ 50 mls/hr Q12H IV 12/18/20 13:00 12/22/20 13:12 DC 12/22/20 01:27 Ceftriaxone Sodium 1 gm/ Dextrose 50 ml @ 100 mls/hr Q24H IV 12/29/20 13:00 12/30/20 12:36 DC 12/29/20 13:56 Collagenase (SantyL) apply nickel th... Q2D TOP 12/17/20 09:00 12/31/20 08:14 Darbepoetin Jos (Aranesp (Dialysis Use)) 100 mcg HD IV 12/15/20 14:35 12/29/20 09:59 Dextrose (Dextrose 50%) 25 ml ASDIRECTED PRN IV SEE LABEL COMMENTS 12/15/20 00:40 Dimethicone (Vanicream Ointment) Apply to bilateral lo... DAILY TOP 12/20/20 09:00 12/31/20 08:15 Doxycycline Hyclate (Vibramycin) 100 mg BID PO 12/22/20 21:00 12/29/20 12:14 DC 12/29/20 06:07 Doxycycline Hyclate (Vibramycin) 100 mg BID PO 12/30/20 09:00 12/31/20 05:59 Glucagon (Glucagon) 1 mg ASDIRECTED PRN SC SEE LABEL COMMENTS 12/15/20 00:40 Glucose (Glucose) 16 GM ASDIRECTED PRN PO SEE LABEL COMMENTS 12/15/20 00:40 Heparin Sodium (Heparin) Please refer to ... ASDIRECTED XX 12/17/20 07:50 12/18/20 07:49 DC Heparin Sodium (Heparin) Please refer to ... ASDIRECTED XX 12/27/20 06:00 12/28/20 05:59 DC Heparin Sodium (Heparin) Please refer to ... ASDIRECTED XX 12/29/20 06:00 12/30/20 05:59 DC Heparin Sodium (Heparin) Please refer to ... ASDIRECTED XX 12/31/20 08:35 01/01/21 08:34 Heparin Sodium (Heparin) Please refer to ... ASDIRECTED XX 12/15/20 12:45 12/16/20 12:44 DC Heparin Sodium (Heparin) dose as per volume indica... ASDIRECTED PRN IV SEE LABEL COMMENTS 12/17/20 07:50 12/18/20 07:49 DC Heparin Sodium (Heparin) dose as per volume indica... ASDIRECTED PRN IV SEE LABEL COMMENTS 12/27/20 06:00 12/27/20 12:19 DC Heparin Sodium (Heparin) dose as per volume indica... ASDIRECTED PRN IV SEE LABEL COMMENTS 12/29/20 06:00 12/29/20 23:19 DC Heparin Sodium (Heparin) dose as per volume indica... ASDIRECTED PRN IV SEE LABEL COMMENTS 12/31/20 08:35 01/01/21 08:34 Heparin Sodium (Heparin) dose as per volume indica... ASDIRECTED PRN IV SEE LABEL COMMENTS 12/15/20 12:45 12/16/20 12:44 DC Home Med (Home Med List Complete!) ASDIRECTED XX 12/14/20 22:10 12/14/20 22:18 DC Hydromorphone HCl (Dilaudid) 1 mg Q6HP PRN PO MODERATE PAIN (PS 5-7) 12/25/20 10:40 12/31/20 10:01 Insulin Human Lispro (HumaLOG INSULIN) See Protocol Table AC SC 12/15/20 07:30 12/31/20 08:14 Insulin Human Lispro (HumaLOG INSULIN) See Protocol Table QHS SC 12/14/20 21:00 Iron (Venofer) 100 mg HD IV 12/17/20 13:35 12/24/20 12:07 Lactic Acid (Lac-Hydrin 12% Lotion) APPLY TO FEET DAILY PRN TOP DRY SKIN 12/15/20 00:40 Magnesium Hydroxide (Milk Of Magnesia) 30 ml DAILY PRN PO CONSTIPATION 12/14/20 21:45 12/27/20 21:46 Metoprolol Tartrate (Lopressor) 50 mg BID PO 12/14/20 23:55 12/31/20 05:59 Miscellaneous (Unresolved Clarification Entry) SEE LABEL COMMENTS DAILY XX 12/21/20 09:00 12/22/20 07:31 DC 12/21/20 09:00 Nortriptyline HCl (Pamelor) 20 mg QHS PO 12/14/20 23:55 12/30/20 20:47 Ondansetron HCl (ZOFRAN INJection) 4 mg Q8HP PRN IV NAUSEA 12/21/20 13:35 Pantoprazole Sodium (Protonix) 40 mg DAILY PO 12/15/20 09:00 12/31/20 05:59 Polyethylene Glycol (Miralax) 1 pkt QHS PO 12/14/20 21:00 12/30/20 20:47 Pregabalin (Lyrica) 25 mg BID PO 12/14/20 23:55 12/15/20 08:48 DC 12/15/20 08:26 Quetiapine Fumarate (SEROquel) 12.5 mg QHS PO 12/25/20 21:00 12/30/20 20:47 Sodium Chloride 1,000 ml @ 75 mls/hr [id number] IV 12/21/20 09:10 12/21/20 18:59 DC Sodium Chloride 1,000 ml @ 100 mls/hr Q10H IV 12/21/20 14:05 12/21/20 18:59 DC 12/21/20 14:14 Sodium Chloride (Nacl 0.9%) 200 ml ASDIRECTED PRN IV SEE LABEL COMMENTS 12/17/20 07:50 12/18/20 07:49 DC Sodium Chloride (Nacl 0.9%) 200 ml ASDIRECTED PRN IV SEE LABEL COMMENTS 12/15/20 12:45 12/16/20 12:44 DC Tamsulosin HCl (Flomax) 0.4 mg DAILY PO 12/31/20 09:00 Trimethoprim/ Sulfamethoxazole (Bactrim Ds, Septra Ds 160mg/ 800mg) 1 tab DAILY@1600 PO 12/31/20 16:00 12/30/20 13:03 DC Vitamin B Complex/ Vit C/Folic Acid (Nephro-Juan Luis Rx) 1 tab DAILY PO 12/28/20 09:00 12/31/20 05:59 Warfarin Sodium (Coumadin) 2 mg Th@1700 PO 12/15/20 17:00 12/17/20 08:10 DC 12/15/20 17:50 Warfarin Sodium (Coumadin) 4 mg DAILY@17 PO 12/17/20 17:00 12/19/20 12:30 DC 12/18/20 17:16 Warfarin Sodium (Coumadin) 4 mg DAILY@17 PO 12/22/20 17:00 Hold 12/29/20 17:47 Warfarin Sodium (Coumadin) 4 mg OlgaTJessicaa@1700 PO 12/16/20 17:00 12/17/20 08:10 DC 12/16/20 18:35 Allergies Coded Allergies: [place] (Verified Allergy, Severe, ANAPHYLAXIS, 11/09/14) Penicillins (Verified Allergy, Severe, Anaphylaxis, 02/17/20) HAS RECEIVED 2nd & 3RD GEN CEPHALOSPORINS w/o PROBLEM metformin (Verified Allergy, Severe, Tongue swelling, 07/02/18) tramadol (Verified Allergy, Unknown, 12/18/20) Irhqonr-Yqo-Xwd Reductase Inhibitor (Verified Adverse Reaction, Intermediate, Altered Mental Status, 07/02/18) codeine (Verified Adverse Reaction, Mild, "out of it". , 02/17/20) mixed with guifenasin duloxetine (Unverified Adverse Reaction, Mild, Nausea and vomiting, 07/02/18) clindamycin (Verified Adverse Reaction, Unknown, DIARRHEA, 02/29/20) Assessment/Plan Date Seen The patient was seen on 12/31/20 at 10:48. Plan / VTE VTE Prophylaxis Ordered?: Yes Plan Orders past 48 Hours Orders Bladder Scan >300ml Notify Qmp (12/29/20 12:05) Ceftriaxone Sod (Rocephin) (12/29/20 13:00) Fingerstick Blood Sugar (12/29/20 13:03) * Nursing Order * (12/29/20 15:25) Fingerstick Blood Sugar (12/29/20 16:25) Fingerstick Blood Sugar (12/29/20 19:45) C Reactive Protein Quantitativ (12/30/20 06:00) Bladder Scan (12/30/20 11:26) Fingerstick Blood Sugar (12/30/20 11:47) Discharge/Transfer Order (12/30/20 12:41) Patient Discharge Instruction (12/30/20 12:41) Catheter - Urinary Straight (12/30/20 12:50) Trimethoprim/Sulfameth 160/800 (Bactrim (12/31/20 16:00) * Nursing Order * (12/30/20 13:00) Ua W/ Reflex To Culture (12/30/20 13:00) Cefdinir (Omnicef) (12/30/20 13:30) Doxycycline Hyclate (Vibramycin) (12/30/20 09:00) Cefdinir (Omnicef) (12/31/20 16:00) Bladder Scan Frequency (12/30/20 13:01) Fingerstick Blood Sugar (12/30/20 17:04) Fingerstick Blood Sugar (12/30/20 19:52) C Reactive Protein Quantitativ (12/31/20 05:43) Hemodialysis Acute Orders (12/31/20 08:35) Heparin (Heparin) (12/31/20 08:35) Heparin (Heparin) (12/31/20 08:35) Tamsulosin Hcl (Flomax) (12/31/20 09:00) Plan Text ESRD on HD HFpEF,LVEF 65% with grade 2 diastolic dysfunction Anemia in ESRD Severe PVD with foot ulcers--> MRSA and E Coli infection. Metabolic encephalopathy. Urinary Retention. HD today UF goal ~1Kg. Mental status fluctuates but baseline. UA normal but 700 ml urine removed with straight cath. Continue bladder scan. Start Flomax. Doxy and Omnicef for wounds as per ID. OK to Dc from Nephrology standpoint if he clears PT. DILIA SCHROEDER MD Dec 31, 2020 10:52
--- NOTE | 2020-12-31 11:19 | IPNPDOC ---
Text Note Date of Service The patient was seen on 12/31/20. NOTE Subjective: Patient is a 75 year old male with a pMhx of Lewy Body Dementia, CAD s/p CABG, s/p TAVR (on Warfarin), HTN, Diastolic CHF / Pulmonary HTN, SIDNEY, DM2, ESRD on HD, Hx of CVA, Hx of PAD, who presented one day after discharge from acute rehabilitation with confusion and reported shortness of breath. Patient was admitted to hospital service for further evaluation and treatment. Patient's confusion had improved relatively quickly and patient was taken for an angioplasty of his RLE with Dr. Tafoya on 12/21. Patient was seen and examined at the bedside. He was receiving dialysis this morning. Denies any chest pain, shortness of breath or palpitations. Has not experience any nausea, vomiting, abdominal pain. Has not had any diarrhea. Still reports some bilateral pain in his feet. Objective: Vitals (See below) General: Laying in bed receiving dialysis, appears comfortable, not in any acute distress, awake and alert, oriented 3 HEENT: Atraumatic and normocephalic CVS: +S1S2 Lungs: There appears to be fair air entry bilaterally without any evidence of wheezing, crackles or rhonchi Abdomen: Abdomen remains soft without any distention or tenderness Extremities: There is no appreciable edema Skin: Bilateral dressing noted of his feet and RLE Imaging: CXR 12/14: Central venous catheter noted in place. No complication is seen. Fissural fluid versus platelike atelectasis along the minor fissure. Linear fibrosis left base. Head CT 12/14: 1. No acute intracranial abnormality. 2. Atrophy and chronic deep white matter ischemic changes. Guidance fluoro 12/21: Assessment and plan: RLE with ulceration of medial aspect of leg and LLE with ulceration of toes - Clinically patient is still reporting some leg pain, he has been able to work with physical therapy and has been cleared for discharge - He remains afebrile and hemodynamically stable - s/p Angioplasty on 12/21 of RLE peroneal artery with Dr. Tafoay - Leukocytosis has resolved and CRP continues to down trend - Blood cultures 12/15 and 12/22: No growth at 5 days - Wound culture 12/22: E. Coli / Corynebacterium Species - PCT of 2.74 - c/w Cefdinir and Doxycycline (Day #2 of 7) - c/w Dressing changes as ordered - c/w ASA and Coumadin - c/w Pain control - Dr. Tafoya, Dr. Lo, Dr. Mcclure and Dr. Cevallos on consultation; appreciate their input ESRD on HD (TTS) - Nephrology consulted; appreciate their input Urinary retention - Patient with a bladder scan that revealed greater than 600 mL of urine; patient was straight catheterized on 12/30; - UA negative for infection Delirium on dementia in the setting of Lewy Body Dementia - Appears to be at baseline level of mentation. Currently - No deficits are noted on exam - Imaging negative - Case was initially discussed with Neurology; Had recommended starting Seroquel; will c/w Seroquel QHS Chronic diastolic congestive heart failure - No evidence of exacerbation / appears euvolemic HTN - BP remains well controlled - c/w Metoprolol Peripheral artery disease - See above Aortic stenosis s/p TAVR - INR therapeutic - c/w Warfarin; will hold today and resume tomorrow DM2 - c/w ISS Mood disorder - c/w Nortriptyline GI prophylaxis - c/w Protonix DVT prophylaxis - c/w full anticoagulation with Warfarin Code status: - Full code Disposition: - Awaiting clinical improvement - Anticipate DC home within 24-48 hours VSLibby, I+O VSLibby I+O Laboratory Tests 12/31/20 05:43 Vital Signs Date Time Temp Pulse Resp B/P (MAP) Pulse Ox O2 Delivery O2 Flow Rate FiO2 12/31/20 10:01 17 12/31/20 05:59 82 148/77 12/31/20 05:46 97.9 97 Room Air I&O- Last 24 Hours up to 6 AM 12/31/20 06:00 Intake Total 380 ml Output Total 1400 ml Balance -1020 ml RYALND NEAL MD Dec 31, 2020 11:19
[2020-12-31] MEDS: TAMSULOSIN 0.4 MG CAP PO SCH (13:30)
[2020-12-31 14:00] VITALS: BP 111/79
[2020-12-31] MEDS: ONDANSETRON 4MG/2ML VIAL IV PRN (14:11)
[2020-12-31] MEDS ORDERED: BACTRIM 160MG/800MG DS TAB PO SCH (16:00)
[2020-12-31] MEDS: CEFDINIR 300 MG CAP (OMNICEF) PO SCH (16:52)
[2020-12-31] MEDS: NORTRIPTYLINE 10 MG CAP PO SCH (20:37)
[2020-12-31] MEDS: MIRALAX *UNIT DOSE* 17GM PACKET PO SCH (20:38)
[2020-12-31] MEDS: QUEtiapine FUMARATE 12.5 MG HALF-TAB PO SCH (20:38)
[2020-12-31 20:48] VITALS: BP 115/55
[2021-01-01 05:36] VITALS: BP 120/78
[2021-01-01 07:36] LABS: BASO # 0.1 10^3/uL (0.0-0.2); BASO % 1.2 % (0.0-1.0); EOS # 0.5 10^3/uL (0.0-0.5); EOS % 4.3 % (0.0-3.0); HEMATOCRIT 38.4 % (42.0-52.0); HEMOGLOBIN 12.2 g/dl (13.5-17.5); LYMPH # 1.5 10^3/uL (1.5-5.0); LYMPH % 14.1 % (24.0-44.0); MEAN CORPUSCULAR HEMOGLOBIN 33.2 pg (27.0-33.0); MEAN CORPUSCULAR HGB CONC 31.8 g/dl (32.0-36.5); MEAN CORPUSCULAR VOLUME 104.6 fl (80.0-96.0); MONO # 1.3 10^3/uL (0.0-0.8); NEUTROPHILS % 66.9 % (36.0-66.0); PLATELET COUNT, AUTOMATED 255 10^3/uL (150-450); RED BLOOD COUNT 3.67 10^6/uL (4.30-6.10); WHITE BLOOD COUNT 10.5 10^3/uL (4.0-10.0)
[2021-01-01 08:03] LABS: C REACTIVE PROTEIN QUANTITATIV 9.15 MG/DL (0.00-0.30); CALCIUM LEVEL 9.2 MG/DL (8.8-10.2); CREATININE FOR GFR 4.19 MG/DL (0.70-1.30); GLOMERULAR FILTRATION RATE 14.8 (>42); MAGNESIUM LEVEL 2.2 MG/DL (1.8-2.4); POTASSIUM SERUM 4.8 MEQ/L (3.5-5.1)
[2021-01-01] MEDS: DOXYCYCLINE HYCLATE 100MG TABLET PO SCH ×2 (08:47→20:37)
[2021-01-01] MEDS: ASPIRIN 81MG ENTERIC TABLET PO SCH (08:47)
[2021-01-01] MEDS: PANTOPRAZOLE 40MG TAB (PROTONIX) PO SCH (08:47)
[2021-01-01] MEDS: TAMSULOSIN 0.4 MG CAP PO SCH (08:48)
[2021-01-01] MEDS: METOPROLOL TART 50 MG TAB PO SCH ×2 (08:48→21:03)
[2021-01-01] MEDS: HumaLOG INSULIN (NovoLOG) PER UNIT SC SCH ×4 (08:48→20:12)
[2021-01-01] MEDS: NEPHRO-VIT TAB (NEPHROCAPS) PO SCH (08:48)
[2021-01-01] MEDS: DIMETHICONE 2% OINTMENT(VANICREAM) 70GM TUBE TOP SCH (08:49)
--- NOTE | 2021-01-01 09:47 | IPNPDOC ---
Text Note Date of Service The patient was seen on 01/01/21. NOTE Subjective: Patient is a 75 year old male with a pMhx of Lewy Body Dementia, CAD s/p CABG, s/p TAVR (on Warfarin), HTN, Diastolic CHF / Pulmonary HTN, SIDNEY, DM2, ESRD on HD, Hx of CVA, Hx of PAD, who presented one day after discharge from acute rehabilitation with confusion and reported shortness of breath. Patient was admitted to hospital service for further evaluation and treatment. Patient's confusion had improved relatively quickly and patient was taken for an angioplasty of his RLE with Dr. Tafoya on 12/21. Patient was seen and examined at the bedside. Patient seen sitting up at that edge of the bed. Denies any chest pain, shortness of breath, palpitations, nausea, vomiting, abdominal pain. He does report that he is feeling weak, still reports bilateral feet pain Objective: Vitals (See below) General: Sitting up at the edge of the bed, appears to be comfortable. He is awake and alert HEENT: NC, AT CVS: +S1S2 Lungs: Air entry appears to be fair bilaterally without any evidence of wheezing, crackles or rhonchi Abdomen: Soft, nondistended, nontender Extremities: No edema Skin: Bilateral feet with dressing in place. Right lower extremity with wrapped dressing in place Imaging: CXR 12/14: Central venous catheter noted in place. No complication is seen. Fissural fluid versus platelike atelectasis along the minor fissure. Linear fibrosis left base. Head CT 12/14: 1. No acute intracranial abnormality. 2. Atrophy and chronic deep white matter ischemic changes. Guidance fluoro 12/21: Assessment and plan: RLE with ulceration of medial aspect of leg and LLE with ulceration of toes - Clinically patient remains unchanged - He is hemodynamically stable and afebrile - s/p Angioplasty on 12/21 of RLE peroneal artery with Dr. Tafoya - There has been a slight increase in his leukocytosis and CRP - Blood cultures 12/15 and 12/22: No growth at 5 days - Wound culture 12/22: E. Coli / Corynebacterium Species - PCT of 2.74 - c/w Cefdinir and Doxycycline (Day #3 of 7) - c/w Dressing changes as ordered - c/w ASA and Coumadin - c/w Pain control - Dr. Tafoya, Dr. Lo, Dr. Mcclure and Dr. Cevallos on consultation; appreciate their input - c/w PT; family/ report that patient is too weak to go home ESRD on HD (TTS) - Nephrology consulted; appreciate their input Urinary retention - Patient with a bladder scan that revealed greater than 600 mL of urine; patient was straight catheterized on 12/30; - Continuous with bladder scans ensure that there is no additional urinary retention - UA negative for infection Delirium on dementia in the setting of Lewy Body Dementia - Appears to be at baseline level of mentation. Currently - No deficits are noted on exam - Imaging negative - Case was initially discussed with Neurology; Had recommended starting Seroquel; will c/w Seroquel QHS Chronic diastolic congestive heart failure - No evidence of exacerbation / appears euvolemic HTN - BP remains well controlled - c/w Metoprolol Peripheral artery disease - See above Aortic stenosis s/p TAVR - INR therapeutic - c/w Warfarin; will hold today and resume tomorrow DM2 - c/w ISS Mood disorder - c/w Nortriptyline GI prophylaxis - c/w Protonix DVT prophylaxis - c/w full anticoagulation with Warfarin Code status: - Full code Disposition: - Awaiting clinical improvement Libby ROMERO, I+O VSLibby, I+O Laboratory Tests 01/01/21 07:25 Vital Signs Date Time Temp Pulse Resp B/P (MAP) Pulse Ox O2 Delivery O2 Flow Rate FiO2 01/01/21 08:48 87 120/78 01/01/21 05:36 97.1 16 98 Room Air I&O- Last 24 Hours up to 6 AM 01/01/21 06:00 Intake Total 270 ml Output Total 2000 ml Balance -1730 ml RYLAND NEAL MD Jan 01, 2021 09:47
--- NOTE | 2021-01-01 10:41 | IPNPDOC ---
Subjective CC/HPI The patient is a 75-year-old male admitted with a reason for visit of Dyspnea, Encephalopathy Acute, Weakness. Events since last encounter Pt was seen in AM. Bladder scan showed PVR~248ml. He was dialyzed yesterday and tolerated well. General: Denies: Chills, Night Sweats Constitutional: Denies: Chills, Fever, Malaise Eyes: Denies: Pain, Vision change ENT: Denies: Head Aches, Ear Pain Skin: Reports: Lesions, Breakdown (Foot ulcers); Denies: Rash Pulmonary: Denies: Dyspnea, Cough Cardiovascular: Denies: Chest Pain, Palpitations Gastrointestinal: Denies: Nausea, Vomiting Genitourinary: Denies: Dysuria, Frequency Hematologic: Denies: Bruising Musculoskeletal: Denies: Neck Pain, Back Pain Neurological: Reports: Weakness, Confusion Objective Physical Examination General Exam: Alert, No Acute Distress EYE EXAM: PERRLA, Conjunctiva & lids normal, EOMI ENT EXAM: Atraumatic, Mucous membr. moist/pink Neck Exam: Supple, Other; No: JVD Chest Exam: Clear to auscultation, Normal air movement Heart Exam: Rate Normal, Normal S1, Normal S2 ABDOMEN EXAM: Normal bowel sounds, Soft Extremity Exam: Other (Bilateral foot ulcers) Skin Exam: Nl turgor and temperature Neuro Exam: Other Psych Exam: Mental status NL Vital Signs/I&O Vital Signs Date Time Temp Pulse Resp B/P (MAP) Pulse Ox O2 Delivery O2 Flow Rate FiO2 01/01/21 08:48 87 120/78 01/01/21 05:36 97.1 16 98 Room Air I&O- Last 24 Hours up to 6 AM 01/01/21 06:00 Intake Total 270 ml Output Total 2000 ml Balance -1730 ml Laboratory Data Labs 24H Laboratory Tests 2 12/31/20 12:39: Bedside Glucose (Misc Panel) 120H 12/31/20 17:13: Bedside Glucose (Misc Panel) 162H 12/31/20 19:58: Bedside Glucose (Misc Panel) 171H 01/01/21 05:30: Bedside Glucose (Misc Panel) 191H 01/01/21 07:25: Immature Granulocyte % (Auto) 1.5, Neutrophils (%) (Auto) 66.9H, Lymphocytes (%) (Auto) 14.1L, Monocytes (%) (Auto) 12.0H, Eosinophils (%) (Auto) 4.3H, Basophils (%) (Auto) 1.2H, Neutrophils # (Auto) 7.0, Lymphocytes # (Auto) 1.5, Monocytes # (Auto) 1.3H, Eosinophils # (Auto) 0.5, Basophils # (Auto) 0.1, Nucleated Red Blood Cells % (auto) 0.0, Anion Gap 10, Glomerular Filtration Rate 14.8L, Calcium Level 9.2, Magnesium Level 2.2, C-Reactive Protein, Quantitative 9.15H CBC/BMP Laboratory Tests 01/01/21 07:25 FSBS Laboratory Tests Test 12/31/20 12:39 12/31/20 17:13 12/31/20 19:58 01/01/21 05:30 Range/Units Bedside Glucose (Misc Panel) 120 162 171 191 83-110 MG/DL Current Medications Current Medications Medications (Trade) Dose Ordered Sig/Jackelin Route PRN Reason Start Time Stop Time Status Last Admin Dose Admin Acetaminophen (Tylenol Tab) 650 mg Q4H PRN PO MILD PAIN or TEMP > 101 12/14/20 21:45 12/30/20 08:29 Acetaminophen/ Hydrocodone Bitart (Harlan, Anexsia 5/325) 1 tab Q6HP PRN PO MODERATE PAIN (PS 5-7) 12/18/20 14:50 12/25/20 10:38 DC 12/24/20 14:20 Al Hydrox/Mg Hydrox/Simethicone (Mylanta) 30 ml DAILY PRN PO DYSPEPSIA 12/14/20 21:45 Aspirin (Ecotrin) 81 mg DAILY PO 12/15/20 09:00 01/01/21 08:47 Cefdinir (Omnicef) 300 mg BID PO 12/22/20 21:00 12/22/20 17:12 DC Cefdinir (Omnicef) 300 mg TuThSa@1600 PO 12/31/20 16:00 12/31/20 16:52 Ceftaroline Fosamil 200 mg/ Dextrose 50 ml @ 50 mls/hr Q12H IV 12/18/20 13:00 12/22/20 13:12 DC 12/22/20 01:27 Ceftriaxone Sodium 1 gm/ Dextrose 50 ml @ 100 mls/hr Q24H IV 12/29/20 13:00 12/30/20 12:36 DC 12/29/20 13:56 Collagenase (SantyL) apply nickel th... Q2D TOP 12/17/20 09:00 12/31/20 08:14 Darbepoetin Jos (Aranesp (Dialysis Use)) 100 mcg HD IV 12/15/20 14:35 12/29/20 09:59 Dextrose (Dextrose 50%) 25 ml ASDIRECTED PRN IV SEE LABEL COMMENTS 12/15/20 00:40 Dimethicone (Vanicream Ointment) Apply to bilateral lo... DAILY TOP 12/20/20 09:00 01/01/21 08:49 Doxycycline Hyclate (Vibramycin) 100 mg BID PO 12/22/20 21:00 12/29/20 12:14 DC 12/29/20 06:07 Doxycycline Hyclate (Vibramycin) 100 mg BID PO 12/30/20 09:00 01/01/21 08:47 Glucagon (Glucagon) 1 mg ASDIRECTED PRN SC SEE LABEL COMMENTS 12/15/20 00:40 Glucose (Glucose) 16 GM ASDIRECTED PRN PO SEE LABEL COMMENTS 12/15/20 00:40 Heparin Sodium (Heparin) Please refer to ... ASDIRECTED XX 12/17/20 07:50 12/18/20 07:49 DC Heparin Sodium (Heparin) Please refer to ... ASDIRECTED XX 12/27/20 06:00 12/28/20 05:59 DC Heparin Sodium (Heparin) Please refer to ... ASDIRECTED XX 12/29/20 06:00 12/30/20 05:59 DC Heparin Sodium (Heparin) Please refer to ... ASDIRECTED XX 12/31/20 08:35 01/01/21 08:34 DC Heparin Sodium (Heparin) Please refer to ... ASDIRECTED XX 12/15/20 12:45 12/16/20 12:44 DC Heparin Sodium (Heparin) dose as per volume indica... ASDIRECTED PRN IV SEE LABEL COMMENTS 12/17/20 07:50 12/18/20 07:49 DC Heparin Sodium (Heparin) dose as per volume indica... ASDIRECTED PRN IV SEE LABEL COMMENTS 12/27/20 06:00 12/27/20 12:19 DC Heparin Sodium (Heparin) dose as per volume indica... ASDIRECTED PRN IV SEE LABEL COMMENTS 12/29/20 06:00 12/29/20 23:19 DC Heparin Sodium (Heparin) dose as per volume indica... ASDIRECTED PRN IV SEE LABEL COMMENTS 12/31/20 08:35 01/01/21 08:34 DC Heparin Sodium (Heparin) dose as per volume indica... ASDIRECTED PRN IV SEE LABEL COMMENTS 12/15/20 12:45 12/16/20 12:44 DC Home Med (Home Med List Complete!) ASDIRECTED XX 12/14/20 22:10 12/14/20 22:18 DC Hydromorphone HCl (Dilaudid) 1 mg Q6HP PRN PO MODERATE PAIN (PS 5-7) 12/25/20 10:40 12/31/20 10:01 Insulin Human Lispro (HumaLOG INSULIN) See Protocol Table AC SC 12/15/20 07:30 01/01/21 08:48 Insulin Human Lispro (HumaLOG INSULIN) See Protocol Table QHS SC 12/14/20 21:00 Iron (Venofer) 100 mg HD IV 12/17/20 13:35 12/31/20 11:34 DC 12/24/20 12:07 Lactic Acid (Lac-Hydrin 12% Lotion) APPLY TO FEET DAILY PRN TOP DRY SKIN 12/15/20 00:40 Magnesium Hydroxide (Milk Of Magnesia) 30 ml DAILY PRN PO CONSTIPATION 12/14/20 21:45 12/27/20 21:46 Metoprolol Tartrate (Lopressor) 50 mg BID PO 12/14/20 23:55 01/01/21 08:48 Miscellaneous (Unresolved Clarification Entry) SEE LABEL COMMENTS DAILY XX 12/21/20 09:00 12/22/20 07:31 DC 12/21/20 09:00 Nortriptyline HCl (Pamelor) 20 mg QHS PO 12/14/20 23:55 12/31/20 20:37 Ondansetron HCl (ZOFRAN INJection) 4 mg Q8HP PRN IV NAUSEA 12/21/20 13:35 12/31/20 14:11 Pantoprazole Sodium (Protonix) 40 mg DAILY PO 12/15/20 09:00 01/01/21 08:47 Polyethylene Glycol (Miralax) 1 pkt QHS PO 12/14/20 21:00 12/31/20 20:38 Pregabalin (Lyrica) 25 mg BID PO 12/14/20 23:55 12/15/20 08:48 DC 12/15/20 08:26 Quetiapine Fumarate (SEROquel) 12.5 mg QHS PO 12/25/20 21:00 12/31/20 20:38 Sodium Chloride 1,000 ml @ 75 mls/hr [id number] IV 12/21/20 09:10 12/21/20 18:59 DC Sodium Chloride 1,000 ml @ 100 mls/hr Q10H IV 12/21/20 14:05 12/21/20 18:59 DC 12/21/20 14:14 Sodium Chloride (Nacl 0.9%) 200 ml ASDIRECTED PRN IV SEE LABEL COMMENTS 12/17/20 07:50 12/18/20 07:49 DC Sodium Chloride (Nacl 0.9%) 200 ml ASDIRECTED PRN IV SEE LABEL COMMENTS 12/15/20 12:45 12/16/20 12:44 DC Tamsulosin HCl (Flomax) 0.4 mg DAILY PO 12/31/20 09:00 01/01/21 08:48 Trimethoprim/ Sulfamethoxazole (Bactrim Ds, Septra Ds 160mg/ 800mg) 1 tab DAILY@1600 PO 12/31/20 16:00 12/30/20 13:03 DC Vitamin B Complex/ Vit C/Folic Acid (Nephro-[facility]) 1 tab DAILY PO 12/28/20 09:00 01/01/21 08:48 Warfarin Sodium (Coumadin) 2 mg Th@1700 PO 12/15/20 17:00 12/17/20 08:10 DC 12/15/20 17:50 Warfarin Sodium (Coumadin) 4 mg DAILY@17 PO 12/17/20 17:00 12/19/20 12:30 DC 12/18/20 17:16 Warfarin Sodium (Coumadin) 4 mg DAILY@17 PO 12/22/20 17:00 12/29/20 17:47 Warfarin Sodium (Coumadin) 4 mg SuMoTuWeFrSa@1700 PO 12/16/20 17:00 12/17/20 08:10 DC 12/16/20 18:35 Allergies Coded Allergies: [place] (Verified Allergy, Severe, ANAPHYLAXIS, 11/09/14) Penicillins (Verified Allergy, Severe, Anaphylaxis, 02/17/20) HAS RECEIVED 2nd & 3RD GEN CEPHALOSPORINS w/o PROBLEM metformin (Verified Allergy, Severe, Tongue swelling, 07/02/18) tramadol (Verified Allergy, Unknown, 12/18/20) [id number] Reductase Inhibitor (Verified Adverse Reaction, Intermediate, Altered Mental Status, 07/02/18) codeine (Verified Adverse Reaction, Mild, "out of it". , 02/17/20) mixed with guifenasin duloxetine (Unverified Adverse Reaction, Mild, Nausea and vomiting, 07/02/18) clindamycin (Verified Adverse Reaction, Unknown, DIARRHEA, 02/29/20) Assessment/Plan Date Seen The patient was seen on 01/01/21 at 10:38. Plan / VTE VTE Prophylaxis Ordered?: Yes Plan Orders past 48 Hours Orders Bladder Scan (12/30/20 11:26) Fingerstick Blood Sugar (12/30/20 11:47) Discharge/Transfer Order (12/30/20 12:41) Patient Discharge Instruction (12/30/20 12:41) Catheter - Urinary Straight (12/30/20 12:50) Trimethoprim/Sulfameth 160/800 (Bactrim (12/31/20 16:00) * Nursing Order * (12/30/20 13:00) Ua W/ Reflex To Culture (12/30/20 13:00) Cefdinir (Omnicef) (12/30/20 13:30) Doxycycline Hyclate (Vibramycin) (12/30/20 09:00) Cefdinir (Omnicef) (12/31/20 16:00) Bladder Scan Frequency (12/30/20 13:01) Fingerstick Blood Sugar (12/30/20 17:04) Fingerstick Blood Sugar (12/30/20 19:52) C Reactive Protein Quantitativ (12/31/20 05:43) Hemodialysis Acute Orders (12/31/20 08:35) Heparin (Heparin) (12/31/20 08:35) Heparin (Heparin) (12/31/20 08:35) Tamsulosin Hcl (Flomax) (12/31/20 09:00) Fingerstick Blood Sugar (12/31/20 12:39) Fingerstick Blood Sugar (12/31/20 17:13) Fingerstick Blood Sugar (12/31/20 19:58) Fingerstick Blood Sugar (01/01/21 05:30) Cbc With Differential (01/01/21 07:14) Basic Metabolic Profile (01/01/21 07:14) Magnesium Level (01/01/21 07:14) C Reactive Protein Quantitativ (01/01/21 07:14) * Nursing Order * (01/01/21 07:14) Discharge/Transfer Order (01/01/21 09:11) Pt Eval & Tx As Needed (01/01/21 09:44) Patient Discharge Instruction (01/01/21 10:16) Plan Text ESRD on HD HFpEF,LVEF 65% with grade 2 diastolic dysfunction Anemia in ESRD Severe PVD with foot ulcers--> MRSA and E Coli infection. Metabolic encephalopathy. Urinary Retention/BPH HD done saturday. Next HD on Saturday Mental status fluctuates but baseline. Cont Flomax.Continue bladder scan. Straight cath PRN for PCR>250 Doxy and Omnicef for wounds as per ID. OK to Dc from Nephrology standpoint if he clears PT. DILIA SCHROEDER MD Jan 01, 2021 10:41
[2021-01-01] MEDS: SENOKOT S TAB PO SCH ×2 (13:30→20:37)
[2021-01-01] MEDS: ONDANSETRON 4MG/2ML VIAL IV PRN (13:31)
[2021-01-01] MEDS: ACETAMINOPHEN TAB 650MG DOSE (2X325MG) PO PRN (13:31)
[2021-01-01 14:00] VITALS: BP 123/58
[2021-01-01] MEDS: WARFARIN SOD 4MG TAB PO SCH (18:05)
[2021-01-01] MEDS: HYDROmorphone 2 MG TAB PO PRN (18:05)
[2021-01-01] MEDS: MOM 30ML SUSPENSION UDC PO PRN (18:56)
[2021-01-01 20:15] VITALS: BP 95/67
[2021-01-01] MEDS: MIRALAX *UNIT DOSE* 17GM PACKET PO SCH (20:37)
[2021-01-01] MEDS: QUEtiapine FUMARATE 12.5 MG HALF-TAB PO SCH (20:37)
[2021-01-01 20:56] VITALS: BP 110/65
[2021-01-01] MEDS: NORTRIPTYLINE 10 MG CAP PO SCH (21:06)
[2021-01-02] MEDS: LACTULOSE 20 GM/30 ML SYRUP UD PO SCH ×4 (06:00→23:47)
[2021-01-02 06:02] VITALS: BP 138/75
[2021-01-02] MEDS: HumaLOG INSULIN (NovoLOG) PER UNIT SC SCH ×5 (07:30→20:59)
[2021-01-02 07:41] LABS: BASO # 0.1 10^3/uL (0.0-0.2); BASO % 1.1 % (0.0-1.0); EOS # 0.5 10^3/uL (0.0-0.5); EOS % 4.5 % (0.0-3.0); HEMATOCRIT 38.4 % (42.0-52.0); HEMOGLOBIN 12.4 g/dl (13.5-17.5); LYMPH # 1.3 10^3/uL (1.5-5.0); LYMPH % 11.4 % (24.0-44.0); MEAN CORPUSCULAR HEMOGLOBIN 34.1 pg (27.0-33.0); MEAN CORPUSCULAR HGB CONC 32.3 g/dl (32.0-36.5); MEAN CORPUSCULAR VOLUME 105.5 fl (80.0-96.0); MONO # 1.1 10^3/uL (0.0-0.8); MONO % 9.7 % (2.0-8.0); NEUTROPHILS # 8.2 10^3/uL (1.5-8.5); NEUTROPHILS % 72.1 % (36.0-66.0); PLATELET COUNT, AUTOMATED 268 10^3/uL (150-450); RED BLOOD COUNT 3.64 10^6/uL (4.30-6.10); WHITE BLOOD COUNT 11.4 10^3/uL (4.0-10.0)
[2021-01-02 08:02] LABS: ALBUMIN 2.9 GM/DL (3.2-5.2); BILIRUBIN,TOTAL 0.7 MG/DL (0.2-1.0); C REACTIVE PROTEIN QUANTITATIV 9.41 MG/DL (0.00-0.30); CALCIUM LEVEL 8.9 MG/DL (8.8-10.2); CREATININE FOR GFR 5.82 MG/DL (0.70-1.30); GLOMERULAR FILTRATION RATE 10.2 (>42); MAGNESIUM LEVEL 2.7 MG/DL (1.8-2.4)
--- NOTE | 2021-01-02 09:57 | IPNPDOC ---
Text Note Date of Service The patient was seen on 01/02/21. NOTE Subjective: Patient is a 75 year old male with a pMhx of Lewy Body Dementia, CAD s/p CABG, s/p TAVR (on Warfarin), HTN, Diastolic CHF / Pulmonary HTN, SIDNEY, DM2, ESRD on HD, Hx of CVA, Hx of PAD, who presented one day after discharge from acute rehabilitation with confusion and reported shortness of breath. Patient was admitted to hospital service for further evaluation and treatment. Patient's confusion had improved relatively quickly and patient was taken for an angioplasty of his RLE with Dr. Tafoya on 12/21. Patient was seen and examined at the bedside. Patient was reporting some back pain, reported it as an aching. He denies any chest pain, shortness of breath, cough, has not spent any nausea, vomiting, abdominal pain. He is constipated, has not had any bowel movements. He refuses a suppository. This morning he is fully oriented to person, place and time. Over the weekend, patient had developed urinary retention. However, he has been able to void after the introduction of tamsulosin. Objective: Vitals (See below) General: Laying in bed and appears to be comfortable. He is awake, alert. He is oriented to person, place and time. This morning HEENT: Normocephalic and atraumatic CVS: +S1S2 Lungs: There appears to be fair air entry bilaterally without any evidence of wheezing, crackles or rhonchi Abdomen: His abdomen is soft without any appreciated distention or tenderness Extremities: No appreciated lower extremity edema Skin: Right lower extremity with dressing in place. Bilateral feet with dressing in place Imaging: CXR 12/14: Central venous catheter noted in place. No complication is seen. Fissural fluid versus platelike atelectasis along the minor fissure. Linear fibrosis left base. Head CT 12/14: 1. No acute intracranial abnormality. 2. Atrophy and chronic deep white matter ischemic changes. Guidance fluoro 12/21: Assessment and plan: RLE with ulceration of medial aspect of leg and LLE with ulceration of toes - Patient reports that his feet this morning are not bothering him - Hemodynamically stable and afebrile - s/p Angioplasty on 12/21 of RLE peroneal artery with Dr. Tafoya - Elevated WBC / CRP ... will continue to trend - Blood cultures 12/15 and 12/22: No growth at 5 days - Wound culture 12/22: E. Coli / Corynebacterium Species - PCT of 2.74 - c/w Cefdinir and Doxycycline (Day #4 of 7) - c/w Dressing changes as ordered - c/w ASA and Coumadin - c/w Pain control - Dr. Tafoya, Dr. Lo, Dr. Mcclure and Dr. Cevallos on consultation; appreciate their input - c/w PT; family/ report that patient is too weak to go home and wanted to continue with additional PT ESRD on HD (TTS) - Nephrology consulted; appreciate their input Urinary retention - Patient with a bladder scan that revealed greater than 600 mL of urine; patient was straight catheterized on 12/30; - Continuous with bladder scans ensure that there is no additional urinary retention; he has been able to void - UA negative for infection Delirium on dementia in the setting of Lewy Body Dementia - AAOx3 this morning; no delirium noted this morning - Imaging negative - Case was initially discussed with Neurology; Had recommended starting Seroquel; will c/w Seroquel QHS - Patient's was questioning whether Seroquel would be required moving forward and the necessity of it with his underlying dementia - I have advised her that this was a recommendation from neurology and we can stop it if she requests at this point she is unsure Chronic diastolic congestive heart failure - No evidence of exacerbation / appears euvolemic HTN - BP remains well controlled - c/w Metoprolol Peripheral artery disease - See above Aortic stenosis s/p TAVR - INR pending - c/w Warfarin DM2 - c/w ISS Mood disorder - c/w Nortriptyline GI prophylaxis - c/w Protonix DVT prophylaxis - c/w full anticoagulation with Warfarin Code status: - Full code Disposition: - Awaiting clinical improvement Libby ROMERO, I+O VSLibby I+O Laboratory Tests 01/02/21 06:33 Vital Signs Date Time Temp Pulse Resp B/P (MAP) Pulse Ox O2 Delivery O2 Flow Rate FiO2 01/02/21 06:02 97.0 94 18 138/75 (96) 96 Room Air I&O- Last 24 Hours up to 6 AM 01/02/21 06:00 Intake Total 320 ml Output Total 200 ml Balance 120 ml RYLAND NEAL MD Jan 02, 2021 09:57
[2021-01-02] MEDS: TAMSULOSIN 0.4 MG CAP PO SCH (10:42)
[2021-01-02] MEDS: ASPIRIN 81MG ENTERIC TABLET PO SCH (10:42)
[2021-01-02] MEDS: HYDROmorphone 2 MG TAB PO PRN (10:42)
[2021-01-02] MEDS: NEPHRO-VIT TAB (NEPHROCAPS) PO SCH (10:42)
[2021-01-02] MEDS: SENOKOT S TAB PO SCH ×2 (10:42→20:54)
[2021-01-02] MEDS: PANTOPRAZOLE 40MG TAB (PROTONIX) PO SCH (10:42)
[2021-01-02] MEDS: DOXYCYCLINE HYCLATE 100MG TABLET PO SCH ×2 (10:43→20:54)
[2021-01-02] MEDS: DIMETHICONE 2% OINTMENT(VANICREAM) 70GM TUBE TOP SCH (10:43)
[2021-01-02] MEDS: SANTYL OINT 30GM TOP SCH (10:43)
[2021-01-02] MEDS: METOPROLOL TART 50 MG TAB PO SCH ×2 (10:44→20:54)
[2021-01-02] MEDS: WARFARIN SOD 4MG TAB PO SCH (17:00)
[2021-01-02] MEDS: QUEtiapine FUMARATE 12.5 MG HALF-TAB PO SCH (20:54)
[2021-01-02] MEDS: NORTRIPTYLINE 10 MG CAP PO SCH (20:54)
[2021-01-02] MEDS: MIRALAX *UNIT DOSE* 17GM PACKET PO SCH (20:54)
[2021-01-02 22:00] VITALS: BP 142/75
[2021-01-03] MEDS: NEPHRO-VIT TAB (NEPHROCAPS) PO SCH (05:43)
[2021-01-03] MEDS: DOXYCYCLINE HYCLATE 100MG TABLET PO SCH ×2 (05:43→20:38)
[2021-01-03] MEDS: SENOKOT S TAB PO SCH ×2 (05:43→20:28)
[2021-01-03] MEDS: TAMSULOSIN 0.4 MG CAP PO SCH (05:43)
[2021-01-03] MEDS: ASPIRIN 81MG ENTERIC TABLET PO SCH (05:44)
[2021-01-03] MEDS: METOPROLOL TART 50 MG TAB PO SCH ×2 (05:44→20:38)
[2021-01-03] MEDS: PANTOPRAZOLE 40MG TAB (PROTONIX) PO SCH (05:44)
[2021-01-03 06:00] VITALS: BP 151/74
[2021-01-03 06:34] LABS: BASO # 0.1 10^3/uL (0.0-0.2); BASO % 0.7 % (0.0-1.0); EOS # 0.6 10^3/uL (0.0-0.5); EOS % 3.7 % (0.0-3.0); HEMATOCRIT 37.1 % (42.0-52.0); LYMPH # 1.1 10^3/uL (1.5-5.0); LYMPH % 7.5 % (24.0-44.0); MEAN CORPUSCULAR HEMOGLOBIN 33.3 pg (27.0-33.0); MEAN CORPUSCULAR HGB CONC 32.3 g/dl (32.0-36.5); MEAN CORPUSCULAR VOLUME 103.1 fl (80.0-96.0); MONO # 1.1 10^3/uL (0.0-0.8); MONO % 7.6 % (2.0-8.0); NEUTROPHILS % 79.6 % (36.0-66.0); PLATELET COUNT, AUTOMATED 283 10^3/uL (150-450); WHITE BLOOD COUNT 15.1 10^3/uL (4.0-10.0)
[2021-01-03 06:47] LABS: INR 3.4; PROTHROMBIN TIME 34.6 SECONDS (12.7-14.5)
[2021-01-03 07:04] LABS: ALBUMIN 2.9 GM/DL (3.2-5.2); BILIRUBIN,TOTAL 0.7 MG/DL (0.2-1.0); C REACTIVE PROTEIN QUANTITATIV 14.3 MG/DL (0.00-0.30); CALCIUM LEVEL 8.8 MG/DL (8.8-10.2); CREATININE FOR GFR 7.29 MG/DL (0.70-1.30); GLOMERULAR FILTRATION RATE 7.8 (>42); MAGNESIUM LEVEL 2.9 MG/DL (1.8-2.4); POTASSIUM SERUM 4.8 MEQ/L (3.5-5.1); TOTAL PROTEIN 8.9 GM/DL (6.4-8.2)
[2021-01-03] MEDS: HumaLOG INSULIN (NovoLOG) PER UNIT SC SCH ×5 (08:31→21:03)
[2021-01-03] MEDS: DIMETHICONE 2% OINTMENT(VANICREAM) 70GM TUBE TOP SCH (08:32)
[2021-01-03] MEDS ORDERED: SODIUM CHLORIDE 0.9% 1000ML IV PRN (10:55)
--- NOTE | 2021-01-03 12:45 | IPNPDOC ---
Text Note Date of Service The patient was seen on 01/03/21. NOTE Subjective: -No acute events overnight Objective: Vitals: See below General: Laying in bed and appears to be comfortable. He is awake, alert. He is oriented to person, place and time. This morning HEENT: Normocephalic and atraumatic CVS: +S1S2 Lungs: There appears to be fair air entry bilaterally without any evidence of wheezing, crackles or rhonchi Abdomen: His abdomen is soft without any appreciated distention or tenderness Extremities: No appreciated lower extremity edema Skin: Right lower extremity with dressing in place. Bilateral feet with dressing in place Labs: Reviewed Imaging: CXR 12/14: Central venous catheter noted in place. No complication is seen. Fissural fluid versus platelike atelectasis along the minor fissure. Linear fibrosis left base. Head CT 12/14: 1. No acute intracranial abnormality. 2. Atrophy and chronic deep white matter ischemic changes. Guidance fluoro 12/21: Assessment: 75 year old male with a history of Lewy Body Dementia, CAD s/p CABG, s/p TAVR (on Warfarin), HTN, Diastolic CHF / Pulmonary HTN, SIDNEY, DM2, ESRD on HD, Hx of CVA, Hx of PAD, who presented one day after discharge from acute rehabilitation with confusion and reported shortness of breath and was admitted to hospital service for transient encephalopathy, RLE ulcers with PVD s/p angioplasty of his RLE with Dr. Tafoya on 12/21 on antibiotic therapy to complete on 01/05. His course was c/b urinary retention that improved with tamsulosin and he is now pending safe discharge with expressing c/f inability to care for him at home but also does not want him placed in a SNF at this time. RLE with ulceration of medial aspect of leg and LLE with ulceration of toes - s/p Angioplasty on 12/21 of RLE peroneal artery with Dr. Tafoya - Elevated WBC / CRP - Blood cultures 12/15 and 12/22: No growth at 5 days - Wound culture 12/22: E. Coli / Corynebacterium Species - PCT of 2.74 - c/w Cefdinir and Doxycycline (Day #5 of 7), completing 14d of treatment on 01/05 - c/w Dressing changes as ordered - c/w ASA and Coumadin - c/w Pain control - Dr. Tafoya, Dr. Lo, Dr. Mcclure and Dr. Cevallos were consulted, appreciate their input - c/w PT; family/ report that patient is too weak to go home and wanted to continue with additional PT ESRD on HD (TTS) - Nephrology consulted; appreciate their input Urinary retention - continue tamsulosin - UA negative for infection Lewy Body Dementia - Imaging negative for acute intracranial pathology - Case was initially discussed with Neurology; Had recommended starting Seroquel; will c/w Seroquel QHS - Patient's was questioning whether Seroquel would be required moving forward and the necessity of it with his underlying dementia -Dr. Clements advised her that this was a recommendation from neurology and we can stop it if she requests at this point she is unsure Chronic diastolic congestive heart failure - No evidence of exacerbation / appears euvolemic HTN - BP remains well controlled - c/w Metoprolol Peripheral artery disease - See above Aortic stenosis s/p TAVR - INR pending - c/w Warfarin DM2 - c/w ISS Mood disorder - c/w Nortriptyline GI prophylaxis - c/w Protonix DVT prophylaxis - c/w full anticoagulation with Warfarin Code status: - Full code Disposition: -ALC with ongoing family discussions about safe discharge plan. VS,Jose Manuelbone, I+O VS, Fishbone, I+O Laboratory Tests 01/03/21 06:19 Vital Signs Date Time Temp Pulse Resp B/P (MAP) Pulse Ox O2 Delivery O2 Flow Rate FiO2 01/03/21 06:00 97.6 88 20 151/74 (99) 96 Room Air I&O- Last 24 Hours up to 6 AM 01/03/21 05:59 Intake Total 810 ml Output Total 0 ml Balance 810 ml HAYDEN MALIN MD Jan 03, 2021 12:45
[2021-01-03] MEDS: WARFARIN SOD 4MG TAB PO SCH (17:00)
--- NOTE | 2021-01-03 17:59 | IPN ---
PROGRESS NOTE DATE: 01/03/2021 SUBJECTIVE: Mr. Lisa is seen and examined this morning at the bedside in the hemodialysis unit. His blood pressure is persistently soft during hemodialysis, and we were unable to remove any significant fluid with his dialysis treatment today. Patient has been having suboptimal oral intake as well. He does not really participate much in conversation with me during his dialysis treatment today but tells me he is not in any pain and denies any shortness of breath. VITAL SIGNS: Temperature 97.6, pulse 88, respiratory rate 20, blood pressure 151/74, saturating 96% on room air. Intake yesterday was 660. Dialysis today only removed 300 mL. Weight in the bed scale today is 93.4 kg. GENERAL: Patient is seen in the hemodialysis unit lying in bed, comfortably awake and alert but minimally conversational. Only answers with short one or two words to repeated questions with multiple prompting. Blood pressure is persistently soft during dialysis. Pupils are reactive to light. Tongue is moist. Neck is supple. Jugular veins are not elevated. Tunneled hemodialysis catheter is in use. HEART: Sounds are regular, S1, S2. There is no lower extremity edema. LUNGS: Show symmetric air entry. No crackle, rales, or rhonchus. ABDOMEN: Soft and nontender to palpation. EXTREMITIES: There are dressings on the right lower extremity and on the feet, and there is no significant edema. LABORATORY DATA: Sodium 129, potassium 4.8, bicarbonate 21, BUN 69, creatinine 7.2, glucose 355, magnesium 2.9. CRP has gone up to 14. Hemoglobin 12.0. White count has gone up to 15. INPATIENT MEDICATIONS: Reviewed by myself. I did stop the milk of magnesia because of elevated magnesium level. His remainder of medications is unchanged as compared to yesterday with the exception that I note that lactulose was stopped after three doses. PROBLEMS: 1. End-stage renal disease, on hemodialysis on a Saturday, , Saturday schedule. Patient had minimal fluid removed with dialysis today (300 mL only) because his blood pressures were quite soft during his hemodialysis treatment with systolic repeatedly down into the 70s. Patient has had poor oral intake, and I would plan to remove less fluid with his next treatment if his intake remains poor as such. 2. Anemia of chronic renal failure. Hemoglobin is at goal, and he is not requiring Aranesp at this time. 3. Hypertension. Blood pressures were repeatedly soft during hemodialysis today, but I think that is more reflective of his suboptimal oral intake. He is only on metoprolol twice a day, and blood pressures off of dialysis have been reasonable. I made no change to the current regimen. 4. Hypermagnesemia. Milk of magnesia was stopped. Latest magnesium level is 2.9. 5. Hyponatremia. Corrected sodium level is around 133. Hyponatremia is mild and stable. No intervention is needed beyond hemodialysis. 6. Peripheral vascular disease with right lower extremity ulceration. White count is rising. C-reactive protein (CRP) is rising. He is on antibiotics managed by primary service and Dr. Cevallos. 7. Chronic diastolic congestive heart failure. Patient is euvolemic on exam. Minimal fluid was removed with dialysis today.
[2021-01-03] MEDS: CEFDINIR 300 MG CAP (OMNICEF) PO SCH (18:04)
--- NOTE | 2021-01-03 18:11 | IPN ---
PROGRESS NOTE DATE: 01/03/2021 Newton is doing fairly well this afternoon. He has no complaints. His wound dressings were changed twice today. He has had no fever or chills. No nausea, vomiting, or diarrhea. No cough or shortness of breath, but his white count has increased. Temperature is 97.6, pulse 88, respirations 20, blood pressure 151/74, oxygen saturation 96% on room air. HEART: Normal S1, S2. No murmurs appreciated. LUNGS: Clear anteriorly. No wheezes, rales, or rhonchi. ABDOMEN: Soft, nontender. No hepatosplenomegaly. EXTREMITIES: No edema. He has erythema of both feet with slight peeling. All ulcerations of four toes on the left foot unchanged with dry black eschars, but also there are smaller new ulcerations distal to the toe ulcers that are new, measuring about 1 cm without black eschar, which are probably ischemic in nature. Right leg with a medial ulcer on the calf, measuring about 6 x 3 cm with mild purulent discharge. There is some granulation tissue, and the purulence has markedly decreased. Right foot big toe has a black eschar with no drainage. LABORATORY DATA: White count 15.1, hemoglobin 12, hemoglobin 37.1, platelets 283, 79% neutrophils, 7% lymphocytes, 7% monocytes. Sodium 129, potassium 4.8, chloride 97, bicarbonate 21, BUN 69, creatinine 7.3, glucose 355, calcium 8.8, CRP 14.3. Wound cultures: Escherichia (E) coli, methicillin-resistant Staphylococcus aureus (MRSA), and Corynebacterium species. Patient is on cefdinir 300 mg Saturday, , Saturday only and doxycycline 100 mg by mouth twice a day. He is currently day #5 of antibiotic. IMPRESSION: 1- Infected ischemic ulcer of the right calf with multiple ischemic ulcers of the toes. The only one that looks infected is the right medial calf. Culture was positive for MRSA and E. coli. Patient has worsening leukocytosis and elevated C-reactive protein (CRP), although clinically the wounds look better. 2. Worsening leukocytosis and increased CRP. Needs to be followed and monitored for any other infectious process. 3. Peripheral vascular disease with new ulcerations proximal to the toes, which are concerning for worsening ischemia. PLAN: Continue with cefdinir. I would suggest using 300 mg daily after dialysis. With severe peripheral vascular disease wonder how much of the antibiotic is reaching his legs. Continue doxycycline 100 mg by mouth twice a day. Continue antibiotics for another 5 days. Monitor for diarrhea and Clostridium (C) difficile colitis. MTDD
[2021-01-03] MEDS: MIRALAX *UNIT DOSE* 17GM PACKET PO SCH (20:36)
[2021-01-03] MEDS: QUEtiapine FUMARATE 12.5 MG HALF-TAB PO SCH (20:38)
[2021-01-03] MEDS: NORTRIPTYLINE 10 MG CAP PO SCH (20:38)
[2021-01-04 06:00] VITALS: BP 154/76
[2021-01-04] MEDS: TAMSULOSIN 0.4 MG CAP PO SCH (08:18)
[2021-01-04] MEDS: HumaLOG INSULIN (NovoLOG) PER UNIT SC SCH ×4 (08:18→21:00)
[2021-01-04] MEDS: ASPIRIN 81MG ENTERIC TABLET PO SCH (08:18)
[2021-01-04] MEDS: DOXYCYCLINE HYCLATE 100MG TABLET PO SCH ×2 (08:19→21:33)
[2021-01-04] MEDS: NEPHRO-VIT TAB (NEPHROCAPS) PO SCH (08:19)
[2021-01-04] MEDS: METOPROLOL TART 50 MG TAB PO SCH ×2 (08:19→21:33)
[2021-01-04] MEDS: PANTOPRAZOLE 40MG TAB (PROTONIX) PO SCH (08:19)
[2021-01-04] MEDS: SENOKOT S TAB PO SCH ×2 (08:19→21:00)
[2021-01-04] MEDS: SANTYL OINT 30GM TOP SCH (08:21)
[2021-01-04] MEDS: DIMETHICONE 2% OINTMENT(VANICREAM) 70GM TUBE TOP SCH (08:21)
[2021-01-04 10:30] LABS: BASO # 0.1 10^3/uL (0.0-0.2); BASO % 1.2 % (0.0-1.0); EOS # 0.8 10^3/uL (0.0-0.5); EOS % 8.1 % (0.0-3.0); HEMATOCRIT 34.3 % (42.0-52.0); HEMOGLOBIN 11.1 g/dl (13.5-17.5); LYMPH # 1.2 10^3/uL (1.5-5.0); LYMPH % 11.2 % (24.0-44.0); MEAN CORPUSCULAR HEMOGLOBIN 33.4 pg (27.0-33.0); MEAN CORPUSCULAR HGB CONC 32.4 g/dl (32.0-36.5); MEAN CORPUSCULAR VOLUME 103.3 fl (80.0-96.0); MONO # 1.1 10^3/uL (0.0-0.8); NEUTROPHILS # 6.9 10^3/uL (1.5-8.5); NEUTROPHILS % 67.2 % (36.0-66.0); PLATELET COUNT, AUTOMATED 250 10^3/uL (150-450); RED BLOOD COUNT 3.32 10^6/uL (4.30-6.10); WHITE BLOOD COUNT 10.2 10^3/uL (4.0-10.0)
[2021-01-04 10:38] LABS: INR 3.19
[2021-01-04 11:12] LABS: ALBUMIN 2.5 GM/DL (3.2-5.2); BILIRUBIN,TOTAL 0.6 MG/DL (0.2-1.0); C REACTIVE PROTEIN QUANTITATIV 11.4 MG/DL (0.00-0.30); CALCIUM LEVEL 8.4 MG/DL (8.8-10.2); CREATININE FOR GFR 4.93 MG/DL (0.70-1.30); GLOMERULAR FILTRATION RATE 12.3 (>42); MAGNESIUM LEVEL 2.2 MG/DL (1.8-2.4); TOTAL PROTEIN 8.1 GM/DL (6.4-8.2)
[2021-01-04] MEDS: WARFARIN SOD 4MG TAB PO SCH (17:33)
[2021-01-04] MEDS: MIRALAX *UNIT DOSE* 17GM PACKET PO SCH (21:00)
[2021-01-04] MEDS: QUEtiapine FUMARATE 12.5 MG HALF-TAB PO SCH (21:33)
[2021-01-04] MEDS: NORTRIPTYLINE 10 MG CAP PO SCH (21:33)
[2021-01-05 06:00] VITALS: BP 126/64
[2021-01-05] MEDS: NEPHRO-VIT TAB (NEPHROCAPS) PO SCH (06:26)
[2021-01-05] MEDS: TAMSULOSIN 0.4 MG CAP PO SCH (06:26)
[2021-01-05] MEDS: ASPIRIN 81MG ENTERIC TABLET PO SCH (06:26)
[2021-01-05] MEDS: PANTOPRAZOLE 40MG TAB (PROTONIX) PO SCH (06:26)
[2021-01-05] MEDS: SENOKOT S TAB PO SCH ×2 (06:27→20:27)
[2021-01-05 07:12] LABS: BASO # 0.1 10^3/uL (0.0-0.2); BASO % 0.9 % (0.0-1.0); EOS % 8.8 % (0.0-3.0); HEMATOCRIT 33.9 % (42.0-52.0); HEMOGLOBIN 10.9 g/dl (13.5-17.5); LYMPH # 1.4 10^3/uL (1.5-5.0); LYMPH % 12.3 % (24.0-44.0); MEAN CORPUSCULAR HEMOGLOBIN 33.1 pg (27.0-33.0); MEAN CORPUSCULAR HGB CONC 32.2 g/dl (32.0-36.5); MONO # 1.1 10^3/uL (0.0-0.8); NEUTROPHILS # 7.4 10^3/uL (1.5-8.5); PLATELET COUNT, AUTOMATED 251 10^3/uL (150-450); RED BLOOD COUNT 3.29 10^6/uL (4.30-6.10); WHITE BLOOD COUNT 11.1 10^3/uL (4.0-10.0)
[2021-01-05 07:22] LABS: INR 2.86; PROTHROMBIN TIME 30.3 SECONDS (12.7-14.5)
[2021-01-05] MEDS ORDERED: SODIUM CHLORIDE 0.9% 1000ML IV PRN (07:40)
[2021-01-05 07:45] LABS: ALBUMIN 2.4 GM/DL (3.2-5.2); BILIRUBIN,TOTAL 0.6 MG/DL (0.2-1.0); C REACTIVE PROTEIN QUANTITATIV 11.7 MG/DL (0.00-0.30); CALCIUM LEVEL 8.2 MG/DL (8.8-10.2); CREATININE FOR GFR 5.26 MG/DL (0.70-1.30); GLOMERULAR FILTRATION RATE 11.4 (>42); MAGNESIUM LEVEL 2.4 MG/DL (1.8-2.4); POTASSIUM SERUM 4.3 MEQ/L (3.5-5.1); TOTAL PROTEIN 7.9 GM/DL (6.4-8.2)
[2021-01-05] MEDS: HumaLOG INSULIN (NovoLOG) PER UNIT SC SCH ×4 (07:59→20:22)
[2021-01-05] MEDS: DOXYCYCLINE HYCLATE 100MG TABLET PO SCH ×2 (08:00→20:27)
[2021-01-05] MEDS: DIMETHICONE 2% OINTMENT(VANICREAM) 70GM TUBE TOP SCH (08:00)
[2021-01-05] MEDS: METOPROLOL TART 50 MG TAB PO SCH ×2 (08:00→20:17)
[2021-01-05] MEDS: HYDROmorphone 2 MG TAB PO PRN (14:06)
[2021-01-05] MEDS: CEFDINIR 300 MG CAP (OMNICEF) PO SCH (17:14)
[2021-01-05] MEDS: WARFARIN SOD 4MG TAB PO SCH (17:14)
--- NOTE | 2021-01-05 20:12 | IPN ---
PROGRESS NOTE DATE: 01/05/2021 SUBJECTIVE: Mr. Bernard is seen and examined in the hemodialysis unit this morning receiving his treatment. He is tolerating dialysis without any issue and we are able to remove fluid today. He reports no pain. I do note that his white count has gone down the past two days. OBJECTIVE: VITAL SIGNS: Temperature 97.6, pulse 76, respiratory rate 16, blood pressure 126/64, saturating 97% on room air. Intake yesterday was 660, dialysis today removed 1.5 liters. Weight in the bed scale today is 94 kg. General: The patient is seen, awake, alert, oriented receiving his dialysis treatment in no distress. Extraocular muscles are intact. Tongue is moist. Neck is supple. Jugular veins are not elevated. Hemodialysis catheter is presently in use. Heart sounds are regular, S1, S2. There is no peripheral edema. Lungs show symmetric air entry, anterior auscultation only. No crackle or rale. Abdomen: Soft and nontender. Extremities: There are dressings on the right lower extremity and on the feet and there is no significant edema. Neurologic: He is somewhat slow to respond, but answers all simple questions appropriately and follows commands. LABORATORY STUDIES: Today show white count 11, hemoglobin 10.9, platelets 251. Sodium 134, potassium 4.3, BUN 52, glucose 206, magnesium 2.4. INPATIENT MEDICATIONS: Reviewed by myself and no change is noted over the past 24 hours. PROBLEMS: 1. End-stage renal disease on hemodialysis on Saturday, , Saturday scheduled. The patient was dialyzed today, 1.5 liters of fluid were moved. His electrolytes and volume status are all acceptable. His next dialysis will be on Saturday. 2. Chronic mild urinary retention. Post void residuals bladder scan today was just over 500 mL. Nursing staff did try to straight catheterize the patient. However, the patient refused and I discussed it with him. They will continue with regular post residual bladder scan and the patient is advised to have straight catheterization done if there is significant retention of urine. He does continue on Flomax. 3. Anemia of chronic renal failure. Hemoglobin is 10.9 on the most recent labs and not on Aranesp at present. 4. Hypertension. Blood pressures were better today. We were able to remove 1.5 liters without any significant or persistent hypotension of hemodialysis. I made no change to his current regimen of metoprolol twice a day. 5. Hypermagnesemia. It has improved. Magnesium level has come down to 2.4 from 2.9. 6. Peripheral vascular disease. He has right lower extremity ulceration. He is on antibiotics (cefdinir and doxycycline) managed by Dr. Cevallos.
[2021-01-05] MEDS: MIRALAX *UNIT DOSE* 17GM PACKET PO SCH (20:27)
[2021-01-05] MEDS: QUEtiapine FUMARATE 12.5 MG HALF-TAB PO SCH (20:27)
[2021-01-05] MEDS: NORTRIPTYLINE 10 MG CAP PO SCH (20:27)
[2021-01-06 06:00] VITALS: BP 141/76
[2021-01-06 06:47] LABS: BASO # 0.1 10^3/uL (0.0-0.2); BASO % 0.8 % (0.0-1.0); EOS # 0.9 10^3/uL (0.0-0.5); EOS % 8.9 % (0.0-3.0); HEMATOCRIT 34.9 % (42.0-52.0); HEMOGLOBIN 11.3 g/dl (13.5-17.5); LYMPH # 1.3 10^3/uL (1.5-5.0); LYMPH % 12.5 % (24.0-44.0); MEAN CORPUSCULAR HEMOGLOBIN 33.2 pg (27.0-33.0); MEAN CORPUSCULAR HGB CONC 32.4 g/dl (32.0-36.5); MEAN CORPUSCULAR VOLUME 102.6 fl (80.0-96.0); MONO % 9.8 % (2.0-8.0); NEUTROPHILS # 6.7 10^3/uL (1.5-8.5); NEUTROPHILS % 66.6 % (36.0-66.0); PLATELET COUNT, AUTOMATED 249 10^3/uL (150-450); WHITE BLOOD COUNT 10.1 10^3/uL (4.0-10.0)
[2021-01-06 07:06] LABS: INR 3.1; PROTHROMBIN TIME 32.2 SECONDS (12.7-14.5)
[2021-01-06 07:18] LABS: ALBUMIN 2.4 GM/DL (3.2-5.2); BILIRUBIN,TOTAL 0.6 MG/DL (0.2-1.0); C REACTIVE PROTEIN QUANTITATIV 10.5 MG/DL (0.00-0.30); CALCIUM LEVEL 8.4 MG/DL (8.8-10.2); CREATININE FOR GFR 3.58 MG/DL (0.70-1.30); GLOMERULAR FILTRATION RATE 17.8 (>42); MAGNESIUM LEVEL 2.1 MG/DL (1.8-2.4); POTASSIUM SERUM 4.1 MEQ/L (3.5-5.1)
[2021-01-06] MEDS: SANTYL OINT 30GM TOP SCH (09:00)
[2021-01-06] MEDS: HumaLOG INSULIN (NovoLOG) PER UNIT SC SCH ×4 (09:03→21:00)
[2021-01-06] MEDS: SENOKOT S TAB PO SCH ×2 (09:04→22:10)
[2021-01-06] MEDS: TAMSULOSIN 0.4 MG CAP PO SCH (09:04)
[2021-01-06] MEDS: PANTOPRAZOLE 40MG TAB (PROTONIX) PO SCH (09:04)
[2021-01-06] MEDS: ASPIRIN 81MG ENTERIC TABLET PO SCH (09:04)
[2021-01-06] MEDS: DIMETHICONE 2% OINTMENT(VANICREAM) 70GM TUBE TOP SCH (09:06)
[2021-01-06] MEDS: METOPROLOL TART 50 MG TAB PO SCH ×2 (09:06→22:10)
[2021-01-06] MEDS: NEPHRO-VIT TAB (NEPHROCAPS) PO SCH (09:14)
[2021-01-06] MEDS ORDERED: PILL CUTTER 1 EACH XX PRN (11:35)
[2021-01-06] MEDS: HYDROmorphone 2 MG TAB PO PRN (11:38)
--- NOTE | 2021-01-06 12:18 | IPNPDOC ---
Text Note Date of Service The patient was seen on 01/06/21. NOTE Per nursing report, Mr. Bernard L 2nd toe appears dusky colored and I examined it and concur with concern that the also shared of vascular insuffiency given his own peripheral vascular disease s/p various angioplasties and recent lengthy discussions about potential surgery for necrotic wounds. The plan had been that were preparing for a tentative discharge home on Saturday with home services and appropriate hardware. Unfortunately, at this time, given the potential smoldering ischemic damage of the L 2nd toe, the requested that IR be consulted and I plan to consult Dr. Yi on 01/09/2021 when she is back as she is off duty at this time. VS,Libby, I+O VS, Libby, I+O Laboratory Tests 01/06/21 06:04 Vital Signs Date Time Temp Pulse Resp B/P (MAP) Pulse Ox O2 Delivery O2 Flow Rate FiO2 01/06/21 11:38 18 140/77 01/06/21 09:06 100 01/06/21 06:00 97.3 96 Room Air I&O- Last 24 Hours up to 6 AM 01/06/21 06:00 Intake Total 1090 ml Output Total 1500 ml Balance -410 ml HAYDEN MALIN MD Jan 06, 2021 12:18
[2021-01-06] MEDS: WARFARIN SOD 4MG TAB PO SCH (17:03)
[2021-01-06] MEDS: NORTRIPTYLINE 10 MG CAP PO SCH (22:09)
[2021-01-06] MEDS: QUEtiapine FUMARATE 12.5 MG HALF-TAB PO SCH (22:09)
[2021-01-06] MEDS: MIRALAX *UNIT DOSE* 17GM PACKET PO SCH (22:09)
[2021-01-07 06:00] VITALS: BP 148/81
[2021-01-07] MEDS: SENOKOT S TAB PO SCH ×2 (06:12→21:41)
[2021-01-07] MEDS: NEPHRO-VIT TAB (NEPHROCAPS) PO SCH (06:12)
[2021-01-07] MEDS: ASPIRIN 81MG ENTERIC TABLET PO SCH (06:12)
[2021-01-07] MEDS: METOPROLOL TART 50 MG TAB PO SCH ×2 (06:13→21:41)
[2021-01-07] MEDS: TAMSULOSIN 0.4 MG CAP PO SCH (06:13)
[2021-01-07] MEDS: PANTOPRAZOLE 40MG TAB (PROTONIX) PO SCH (06:14)
[2021-01-07 07:17] LABS: BASO # 0.1 10^3/uL (0.0-0.2); BASO % 0.8 % (0.0-1.0); EOS # 0.9 10^3/uL (0.0-0.5); EOS % 8.1 % (0.0-3.0); HEMATOCRIT 33.4 % (42.0-52.0); HEMOGLOBIN 10.8 g/dl (13.5-17.5); LYMPH # 1.3 10^3/uL (1.5-5.0); MEAN CORPUSCULAR HEMOGLOBIN 33.1 pg (27.0-33.0); MEAN CORPUSCULAR HGB CONC 32.3 g/dl (32.0-36.5); MEAN CORPUSCULAR VOLUME 102.5 fl (80.0-96.0); MONO # 1.2 10^3/uL (0.0-0.8); MONO % 11.8 % (2.0-8.0); PLATELET COUNT, AUTOMATED 238 10^3/uL (150-450); RED BLOOD COUNT 3.26 10^6/uL (4.30-6.10); WHITE BLOOD COUNT 10.5 10^3/uL (4.0-10.0)
[2021-01-07 07:33] LABS: INR 3.64; PROTHROMBIN TIME 36.5 SECONDS (12.7-14.5)
[2021-01-07 07:50] LABS: ALBUMIN 2.4 GM/DL (3.2-5.2); BILIRUBIN,TOTAL 0.5 MG/DL (0.2-1.0); C REACTIVE PROTEIN QUANTITATIV 10.8 MG/DL (0.00-0.30); CALCIUM LEVEL 8.6 MG/DL (8.8-10.2); CREATININE FOR GFR 4.37 MG/DL (0.70-1.30); GLOMERULAR FILTRATION RATE 14.1 (>42); MAGNESIUM LEVEL 2.2 MG/DL (1.8-2.4); POTASSIUM SERUM 4.3 MEQ/L (3.5-5.1); TOTAL PROTEIN 7.9 GM/DL (6.4-8.2)
[2021-01-07] MEDS: HumaLOG INSULIN (NovoLOG) PER UNIT SC SCH ×4 (08:04→21:42)
[2021-01-07] MEDS: DIMETHICONE 2% OINTMENT(VANICREAM) 70GM TUBE TOP SCH (09:47)
[2021-01-07] MEDS: HYDROmorphone 2 MG TAB PO PRN (14:14)
--- NOTE | 2021-01-07 14:37 | IPN ---
PROGRESS NOTE DATE: 01/07/2021 Mr. Lisa is seen this morning during hemodialysis. He is feeling well and denies any new complaints. He denies any dyspnea, chest pain, nausea, or vomiting. He is currently being dialyzed via right internal jugular vein Perm-A-Cath. PHYSICAL EXAMINATION: Temperature 98.0 degrees Fahrenheit, heart rate 80 per minute, respiratory rate 16 per minute, blood pressure 148/80 mmHg, and oxygen saturation 98% on room air. Head is atraumatic. Neck supple, and jugular venous distention (JVD) not abnormally elevated. Perm-A-Cath is present in right internal jugular vein. Heart sounds are irregular in rhythm and lungs with slightly diminished breath sounds at bases. Abdomen soft and nontender, and bowel sounds are normal. Extremities without any cyanosis or clubbing. Lower extremities are both in dressings. Neurologically he is at his baseline mentation. Today's labs show WBC count 10.5, hemoglobin 10.8, hematocrit 33.4, platelets 238. Sodium 131, potassium 4.3, CO2 of 24, BUN 43, and creatinine 4.37. Glucose 251 and calcium 8.6. C-reactive protein is 10.8. PROBLEMS: 1. End-stage renal disease. Patient is being dialyzed, and he is tolerating dialysis treatment very well. We are anticipating to remove about 1.5 liters of fluid with dialysis today. Patient tolerating it well so far. 2. Anemia. His anemia is stable, and we will continue to manage with hemodialysis. At present it is optimally corrected. 3. Peripheral vascular disease and bilateral lower extremity ulcers. Patient has severe bilateral vascular disease in lower extremities and nonhealing ischemic ulcers. Wound care is in progress.
[2021-01-07] MEDS ORDERED: SENOKOT S TAB PO SCH (16:15)
[2021-01-07] MEDS: WARFARIN SOD 4MG TAB PO SCH (18:34)
[2021-01-07] MEDS: NORTRIPTYLINE 10 MG CAP PO SCH (21:40)
[2021-01-07] MEDS: QUEtiapine FUMARATE 12.5 MG HALF-TAB PO SCH (21:40)
[2021-01-07] MEDS: MIRALAX *UNIT DOSE* 17GM PACKET PO SCH (21:41)
[2021-01-08 06:00] VITALS: BP 143/79
[2021-01-08 06:17] LABS: BASO # 0.1 10^3/uL (0.0-0.2); BASO % 0.9 % (0.0-1.0); EOS # 0.9 10^3/uL (0.0-0.5); EOS % 7.7 % (0.0-3.0); HEMATOCRIT 36.6 % (42.0-52.0); HEMOGLOBIN 11.5 g/dl (13.5-17.5); LYMPH # 1.4 10^3/uL (1.5-5.0); LYMPH % 12.3 % (24.0-44.0); MEAN CORPUSCULAR HEMOGLOBIN 32.9 pg (27.0-33.0); MEAN CORPUSCULAR HGB CONC 31.4 g/dl (32.0-36.5); MEAN CORPUSCULAR VOLUME 104.6 fl (80.0-96.0); MONO # 1.2 10^3/uL (0.0-0.8); MONO % 10.5 % (2.0-8.0); NEUTROPHILS # 7.5 10^3/uL (1.5-8.5); NEUTROPHILS % 66.7 % (36.0-66.0); PLATELET COUNT, AUTOMATED 237 10^3/uL (150-450); WHITE BLOOD COUNT 11.3 10^3/uL (4.0-10.0)
[2021-01-08 06:33] LABS: INR 3.24; PROTHROMBIN TIME 33.4 SECONDS (12.7-14.5)
[2021-01-08 06:41] LABS: ALBUMIN 2.6 GM/DL (3.2-5.2); BILIRUBIN,TOTAL 0.6 MG/DL (0.2-1.0); C REACTIVE PROTEIN QUANTITATIV 10.1 MG/DL (0.00-0.30); CALCIUM LEVEL 8.7 MG/DL (8.8-10.2); CREATININE FOR GFR 3.61 MG/DL (0.70-1.30); GLOMERULAR FILTRATION RATE 17.6 (>42); MAGNESIUM LEVEL 2.1 MG/DL (1.8-2.4); POTASSIUM SERUM 4.5 MEQ/L (3.5-5.1); TOTAL PROTEIN 8.7 GM/DL (6.4-8.2)
[2021-01-08] MEDS: HumaLOG INSULIN (NovoLOG) PER UNIT SC SCH ×4 (07:30→20:48)
[2021-01-08] MEDS: SANTYL OINT 30GM TOP SCH (09:00)
[2021-01-08] MEDS: SENOKOT S TAB PO SCH ×2 (09:22→20:58)
[2021-01-08] MEDS: ASPIRIN 81MG ENTERIC TABLET PO SCH (09:23)
[2021-01-08] MEDS: TAMSULOSIN 0.4 MG CAP PO SCH (09:23)
[2021-01-08] MEDS: NEPHRO-VIT TAB (NEPHROCAPS) PO SCH (09:23)
[2021-01-08] MEDS: PANTOPRAZOLE 40MG TAB (PROTONIX) PO SCH (09:23)
[2021-01-08] MEDS: METOPROLOL TART 50 MG TAB PO SCH ×2 (09:25→20:58)
[2021-01-08] MEDS: DIMETHICONE 2% OINTMENT(VANICREAM) 70GM TUBE TOP SCH (09:25)
[2021-01-08] MEDS: WARFARIN SOD 4MG TAB PO SCH (18:10)
[2021-01-08] MEDS: MIRALAX *UNIT DOSE* 17GM PACKET PO SCH (20:58)
[2021-01-08] MEDS: NORTRIPTYLINE 10 MG CAP PO SCH (20:58)
[2021-01-08] MEDS: QUEtiapine FUMARATE 12.5 MG HALF-TAB PO SCH (20:58)
[2021-01-09 06:00] VITALS: BP 138/67
[2021-01-09 06:24] LABS: INR 3.5; PROTHROMBIN TIME 35.4 SECONDS (12.7-14.5)
[2021-01-09] MEDS: ASPIRIN 81MG ENTERIC TABLET PO SCH (09:20)
[2021-01-09] MEDS: SENOKOT S TAB PO SCH ×2 (09:21→21:41)
[2021-01-09] MEDS: NEPHRO-VIT TAB (NEPHROCAPS) PO SCH (09:21)
[2021-01-09] MEDS: METOPROLOL TART 50 MG TAB PO SCH ×2 (09:22→21:40)
[2021-01-09] MEDS: PANTOPRAZOLE 40MG TAB (PROTONIX) PO SCH (09:22)
[2021-01-09] MEDS: TAMSULOSIN 0.4 MG CAP PO SCH (09:23)
[2021-01-09] MEDS: DIMETHICONE 2% OINTMENT(VANICREAM) 70GM TUBE TOP SCH (09:23)
[2021-01-09] MEDS: HumaLOG INSULIN (NovoLOG) PER UNIT SC SCH ×4 (09:24→21:00)
[2021-01-09] MEDS: HYDROmorphone 2 MG TAB PO PRN (12:05)
[2021-01-09] MEDS: WARFARIN SOD 4MG TAB PO SCH (16:20)
[2021-01-09] MEDS: MIRALAX *UNIT DOSE* 17GM PACKET PO SCH (21:40)
[2021-01-09] MEDS: NORTRIPTYLINE 10 MG CAP PO SCH (21:41)
[2021-01-09] MEDS: QUEtiapine FUMARATE 12.5 MG HALF-TAB PO SCH (21:42)
[2021-01-09 21:53] VITALS: BP 135/67
[2021-01-10 06:00] VITALS: BP 123/72
[2021-01-10] MEDS: ASPIRIN 81MG ENTERIC TABLET PO SCH (06:27)
[2021-01-10] MEDS: PANTOPRAZOLE 40MG TAB (PROTONIX) PO SCH (06:27)
[2021-01-10] MEDS: TAMSULOSIN 0.4 MG CAP PO SCH (06:28)
[2021-01-10] MEDS: SENOKOT S TAB PO SCH ×2 (06:28→22:17)
[2021-01-10] MEDS: METOPROLOL TART 50 MG TAB PO SCH ×2 (06:29→22:16)
[2021-01-10] MEDS: NEPHRO-VIT TAB (NEPHROCAPS) PO SCH (06:32)
[2021-01-10] MEDS: HumaLOG INSULIN (NovoLOG) PER UNIT SC SCH ×4 (07:50→22:03)
[2021-01-10] MEDS: ACETAMINOPHEN TAB 650MG DOSE (2X325MG) PO PRN (07:51)
[2021-01-10] MEDS: SANTYL OINT 30GM TOP SCH (08:07)
[2021-01-10] MEDS: HYDROmorphone 2 MG TAB PO PRN (08:55)
--- NOTE | 2021-01-10 11:55 | IPNPDOC ---
Text Note Date of Service The patient was seen on 01/10/21. NOTE Subjective: Patient is a 75 year old male with a pMhx of Lewy Body Dementia, CAD s/p CABG, s/p TAVR (on Warfarin), HTN, Diastolic CHF / Pulmonary HTN, SIDNEY, DM2, ESRD on HD, Hx of CVA, Hx of PAD, who presented one day after discharge f [facility] acute rehabilitation with confusion and reported shortness of breath. Patient was admitted to hospital service for further evaluation and treatment. Patient's confusion had improved relatively quickly and patient was taken for an angioplasty of his RLE with Dr. Tafoya on 12/21. Patient was seen and examined at the bedside and dialysis. Patient denies any chest pain, shortness of breath, palpitations, nausea, vomiting or abdominal pain. He reports weakness. Denies any significant pain of his feet. Does report that he has been working with physical therapy. Objective: Vitals (See below) General: Patient is laying in bed receiving dialysis appears to be comfortable, not in any acute distress, is awake and alert HEENT: AT, NC CVS: +S1S2 Lungs: Air entry appears to be fair bilaterally without any auscultated evidence of crackles, wheezing or rhonchi Abdomen: His abdomen is soft without any appreciated tenderness or distention Extremities: Her extremities are without any edema Skin: Left foot with necrosis of 1st, 2nd, 4th and 5th digits - 4th digit appears to have worsening necrosis / 2nd digit appears to be dusky; right foot 1st digit with necrosis, R leg medial aspect with ulceration / drainage Imaging: CXR 12/14: Central venous catheter noted in place. No complication is seen. Fissural fluid versus platelike atelectasis along the minor fissure. Linear fibrosis left base. Head CT 12/14: 1. No acute intracranial abnormality. 2. Atrophy and chronic deep white matter ischemic changes. Guidance fluoro 12/21: Assessment and plan: RLE with ulceration of medial aspect of leg and LLE with ulceration of toes - Patient denies any significant pain of his feet - Remains hemodynamically stable and afebrile - s/p Angioplasty on 12/21 of RLE peroneal artery with Dr. Tafoya - WBC / CRP count remain elevated but stable - Blood cultures 12/15 and 12/22: No growth at 5 days - Wound culture 12/22: E. Coli / Corynebacterium Species - PCT of 2.74 - s/p Cefdinir and Doxycycline (Completed 7 day course) - c/w Dressing changes as ordered - c/w ASA and Coumadin - c/w Pain control - Dr. Tafoya, Dr. Lo, Dr. Mcclure and Dr. Cevallos on consultation; appreciate their input - Reconsulted Dr. Lo and Dr. Tafoya - Dr. Tafoya is planning. Additional angioplasty on Saturday01/16/21 - Will discontinue Coumadin and Start Lovenox bridge in the meantime (Will hold Lovenox therapeutic starting Saturday in anticipation of procedure on Saturday) ESRD on HD (TTS) - Nephrology consulted; appreciate their input s/p Urinary retention - Patient with a bladder scan that revealed greater than 600 mL of urine; patient was straight catheterized on 12/30; - Continuous with bladder scans ensure that there is no additional urinary retention; he has been able to void - UA negative for infection Delirium on dementia in the setting of Lewy Body Dementia - Does not appear to be delirious this morning, conversing appropriately - Imaging negative - Case was initially discussed with Neurology; Had recommended starting Seroquel; will c/w Seroquel QHS Chronic diastolic congestive heart failure - No evidence of exacerbation / appears euvolemic HTN - BP remains well controlled - c/w Metoprolol Peripheral artery disease - See above Aortic stenosis s/p TAVR - INR elevated - Will discontinue warfarin; will start Lovenox therapeutic (re: Planned intervention with Dr. Tafoya on Saturday ) DM2 - c/w ISS Mood disorder - c/w Nortriptyline GI prophylaxis - c/w Protonix DVT prophylaxis - c/w full anticoagulation with Lovenox; s/p Warfarin Code status: - Full code Disposition: - Awaiting clinical improvement - c/w ALC status VS,Fishbone, I+O VS, Fishbone, I+O Vital Signs Date Time Temp Pulse Resp B/P (MAP) Pulse Ox O2 Delivery O2 Flow Rate FiO2 01/10/21 08:55 20 01/10/21 06:29 77 123/72 01/10/21 06:00 97.6 97 Room Air I&O- Last 24 Hours up to 6 AM 01/10/21 06:00 Intake Total 1000 ml Balance 1000 ml RYLAND NEAL MD Jan 10, 2021 11:55
[2021-01-10] MEDS: DIMETHICONE 2% OINTMENT(VANICREAM) 70GM TUBE TOP SCH (12:32)
[2021-01-10] MEDS: ENOXAPARIN 100MG/1ML SYRINGE (J1650 PER 10MG) SC SCH (12:32)
--- NOTE | 2021-01-10 12:56 | IPN ---
NEPHROLOGY PROGRESS NOTE DATE: 01/10/2021 SUBJECTIVE: Mr. Bernard is seen during hemodialysis this morning. He remains about the same and denies any dyspnea, chest pain, nausea or vomiting. He is tolerating his dialysis very well. PHYSICAL EXAMINATION: Temperature 97.6 degrees Fahrenheit, heart rate 77 per minute and respiratory rate 16 per minute. Blood pressure 123/72 mmHg and oxygen saturation 97% on room air. Head: Atraumatic. Neck: Supple and without JVD or thyroid enlargement. Hemodialysis catheter is present in his right internal jugular vein. Heart: Sounds are irregular. Lungs: Clear to auscultation. Abdomen: Soft and nontender and bowel sounds are normal. Extremities: Without any cyanosis or clubbing. Both lower legs and feet are wrapped in dressings. He does have ulcers on both legs. Neurologically: He is at his baseline mentation without any focal deficit, but does get confused and disoriented at times. LABORATORY DATA: Patient did not have any new labs done today. PROBLEMS/PLAN: 1. End-stage renal disease: Patient is currently being dialyzed and is tolerating dialysis very well. 2. Congestive heart failure: Volume status remains very well compensated and we are removing 1.5 liters of fluid today. His congestive heart failure is being managed with dialysis and no need for diuretic. 3. Peripheral vascular disease and ischemic ulcers on both legs: Patient is likely to require further angioplasty procedure. Dr. Tafoya has been following him. He is also getting wound care for his ulcers. 4. Anemia: His anemia has been stable and does not need any urgent intervention.
[2021-01-10 14:00] VITALS: BP 92/62
[2021-01-10] MEDS: MIRALAX *UNIT DOSE* 17GM PACKET PO SCH (22:17)
[2021-01-10] MEDS: QUEtiapine FUMARATE 12.5 MG HALF-TAB PO SCH (22:17)
[2021-01-10] MEDS: NORTRIPTYLINE 10 MG CAP PO SCH (22:19)
[2021-01-11 06:00] VITALS: BP 118/67
[2021-01-11 08:36] LABS: BASO # 0.1 10^3/uL (0.0-0.2); BASO % 0.8 % (0.0-1.0); EOS # 0.6 10^3/uL (0.0-0.5); EOS % 5.4 % (0.0-3.0); HEMATOCRIT 35.8 % (42.0-52.0); HEMOGLOBIN 11.5 g/dl (13.5-17.5); LYMPH # 1.7 10^3/uL (1.5-5.0); LYMPH % 15.5 % (24.0-44.0); MEAN CORPUSCULAR HGB CONC 32.1 g/dl (32.0-36.5); MEAN CORPUSCULAR VOLUME 102.6 fl (80.0-96.0); MONO # 1.1 10^3/uL (0.0-0.8); MONO % 10.4 % (2.0-8.0); NEUTROPHILS # 7.1 10^3/uL (1.5-8.5); PLATELET COUNT, AUTOMATED 202 10^3/uL (150-450); RED BLOOD COUNT 3.49 10^6/uL (4.30-6.10); WHITE BLOOD COUNT 10.8 10^3/uL (4.0-10.0)
[2021-01-11 09:05] LABS: ALBUMIN 2.4 GM/DL (3.2-5.2); BILIRUBIN,TOTAL 0.6 MG/DL (0.2-1.0); C REACTIVE PROTEIN QUANTITATIV 9.07 MG/DL (0.00-0.30); CALCIUM LEVEL 8.7 MG/DL (8.8-10.2); CREATININE FOR GFR 3.45 MG/DL (0.70-1.30); GLOMERULAR FILTRATION RATE 18.6 (>42); POTASSIUM SERUM 4.8 MEQ/L (3.5-5.1); TOTAL PROTEIN 8.2 GM/DL (6.4-8.2)
[2021-01-11] MEDS: HumaLOG INSULIN (NovoLOG) PER UNIT SC SCH ×4 (09:18→20:56)
[2021-01-11] MEDS: NEPHRO-VIT TAB (NEPHROCAPS) PO SCH (09:18)
[2021-01-11] MEDS: ASPIRIN 81MG ENTERIC TABLET PO SCH (09:18)
[2021-01-11] MEDS: SENOKOT S TAB PO SCH ×2 (09:18→21:04)
[2021-01-11] MEDS: PANTOPRAZOLE 40MG TAB (PROTONIX) PO SCH (09:18)
[2021-01-11] MEDS: TAMSULOSIN 0.4 MG CAP PO SCH (09:18)
[2021-01-11] MEDS: METOPROLOL TART 50 MG TAB PO SCH ×2 (09:20→21:03)
[2021-01-11] MEDS: DIMETHICONE 2% OINTMENT(VANICREAM) 70GM TUBE TOP SCH (09:21)
[2021-01-11 09:24] LABS: INR 3.25; INR 3.34; PROTHROMBIN TIME 33.5 SECONDS (12.7-14.5); PROTHROMBIN TIME 34.1 SECONDS (12.7-14.5)
--- NOTE | 2021-01-11 10:37 | IPN ---
PODIATRY PROGRESS NOTE DATE/TIME: 01/11/2021 at approximately 7:30 a.m. CHIEF COMPLAINT: Patient was seen today at bedside for evaluation of his foot ulcers. Patient states he is in no pain and he states his feet are not painful. States the only time his feet are painful "if someone pulls on my feet." Patient is in no acute distress. PHYSICAL EXAMINATION: Evaluation of his left foot: Patient has a foam dressing on the left foot. This was removed and his foot was evaluated. The third toe was relatively spared; however, there was black eschars on the first, second, fourth and fifth toes. This is firm to bone consistent with ischemic and necrotic change of the left foot. The distal aspect of the foot to the proximal is Lichenified and with no elastic recoil to the skin. The skin is firmly adhered to the deeper structures. The area of black eschar is approximately 5 cm on the dorsal aspect of the foot. Evaluation of the right foot reveals an ulceration of the dorsal aspect of the hallux. This measures 3 cm. There is no fluctuance under this ulcer and there are no signs of infection in this area. The leg was not evaluated since this is being treated by another provider. His pedal pulses are not palpable. There was no discharge today from either foot wounds. ASSESSMENT/PLAN: Necrotic changes of the left foot; however, due to the Lichenification of the skin a transmetatarsal amputation would most likely not be salvageable. This may require a BK amputation on the left side. The right side since it is not painful and not infected would continue with local wound care consisting of foam dressings. The ulceration appears more superficial. If this does demarcate he most likely on the right side would be able to heal a local hallux amputation; however, there is a chance that this ulceration could heal with treatment. Patient does have a visit with Dr. Mcclure. His input would be appreciated. Thank you for this consultation.
--- NOTE | 2021-01-11 11:30 | IPNPDOC ---
Text Note Date of Service The patient was seen on 01/11/21. NOTE Subjective: Patient is a 75 year old male with a PMhx of Lewy Body Dementia, CAD s/p CABG, s/p TAVR (on Warfarin), HTN, Diastolic CHF / Pulmonary HTN, SIDNEY, DM2, ESRD on HD, Hx of CVA, Hx of PAD, who presented one day after discharge from acute rehabilitation with confusion and reported shortness of breath. Patient was admitted to hospital service for further evaluation and treatment. Patient's confusion had improved relatively quickly and patient was taken for an angioplasty of his RLE with Dr. Tafoya on 12/21. Patient was seen and examined at the bedside. Patient appears to be awake, alert, oriented to person, place and time. This morning he denies any chest pain, shortness of breath, palpitations, nausea, vomiting or abdominal pain. He did report some constipation, although he does have a small bowel movement yesterday Objective: Vitals (See below) General: Patient sitting up in bed, appears to be comfortable, not in acute distress, is awake, alert. He is oriented to person, place and time HEENT: AT, NC CVS: +S1S2 Lungs: Appears to be fair bilaterally without any auscultated evidence of crackles, wheezing, rhonchi Abdomen: Nondistended, nontender, soft Extremities: No edema Skin: Bilateral feet with dressing in place. Right medial leg with dressing in place Imaging: CXR 12/14: Central venous catheter noted in place. No complication is seen. Fissural fluid versus platelike atelectasis along the minor fissure. Linear fibrosis left base. Head CT 12/14: 1. No acute intracranial abnormality. 2. Atrophy and chronic deep white matter ischemic changes. Guidance fluoro 12/21: Assessment and plan: RLE with ulceration of medial aspect of leg and LLE with ulceration of toes - Has reported improvement of his feet pain - Hemodynamically stable and afebrile - s/p Angioplasty on 12/21 of RLE peroneal artery with Dr. Tafoya - WBC / CRP count have remained essentially unchanged - Blood cultures 12/15 and 12/22: No growth at 5 days - Wound culture 12/22: E. Coli / Corynebacterium Species - PCT of 2.74 - s/p Cefdinir and Doxycycline (Completed 7 day course) - c/w Dressing changes as ordered - c/w ASA and Lovenox therapeutic (Coumadin on hold) - c/w Pain control - Dr. Tafoya, Dr. Lo, Dr. Mcclure and Dr. Cevallos on consultation; appreciate their input - Reconsulted Dr. Lo and Dr. Tafoya - Dr. Tafoya is planning additional angioplasty on Saturday01/16/21 - c/w Lovenox bridge in the meantime (Will hold Lovenox therapeutic starting Saturday in anticipation of procedure on Saturday) - Dr. Mcclure has been reconsulted and will evaluate tomorrow. Case was discussed with him today; advised that further amputation might be worse for his outcome given poor wound healing ESRD on HD (TTS) - Nephrology consulted; appreciate their input s/p Urinary retention - Patient with a bladder scan that revealed greater than 600 mL of urine; patient was straight catheterized on 12/30; - Continuous with bladder scans ensure that there is no additional urinary retention; he has been able to void - UA negative for infection Delirium on dementia in the setting of Lewy Body Dementia - Does not appear to be delirious this morning, conversing appropriately - Imaging negative - Case was initially discussed with Neurology; Had recommended starting Seroquel; will c/w Seroquel QHS Chronic diastolic congestive heart failure - No evidence of exacerbation / appears euvolemic HTN - BP remains well controlled - c/w Metoprolol Peripheral artery disease - See above Aortic stenosis s/p TAVR - INR elevated - Will discontinue warfarin; will start Lovenox therapeutic (re: Planned intervention with Dr. aTfoya on Saturday ) DM2 - c/w ISS Mood disorder - s/p Citalopram - c/w Nortriptyline GI prophylaxis - c/w Protonix DVT prophylaxis - c/w full anticoagulation with Lovenox; s/p Warfarin Code status: - Full code Disposition: - Awaiting clinical improvement Libby ROMERO I+O Libby ROMERO I+O Laboratory Tests 01/11/21 07:39 Vital Signs Date Time Temp Pulse Resp B/P (MAP) Pulse Ox O2 Delivery O2 Flow Rate FiO2 01/11/21 09:20 85 118/89 01/11/21 06:00 97.2 19 96 Room Air I&O- Last 24 Hours up to 6 AM 01/11/21 05:59 Intake Total 530 ml Output Total 2200 ml Balance -1670 ml RYLAND NEAL MD Jan 11, 2021 11:30
[2021-01-11] MEDS: HYDROmorphone 2 MG TAB PO PRN (11:39)
[2021-01-11] MEDS: ENOXAPARIN 100MG/1ML SYRINGE (J1650 PER 10MG) SC SCH (11:40)
--- NOTE | 2021-01-11 17:54 | IPN ---
NEPHROLOGY PROGRESS NOTE DATE: 01/11/2021 SUBJECTIVE: Mr. Bernard is seen this morning at his bedside. He is laying in the bed and not in any acute distress. He denies any dyspnea, chest pain, nausea or vomiting. He is mildly demented but cooperative. OBJECTIVE: PHYSICAL EXAMINATION: VITAL SIGNS: Temperature 97.2 degrees Fahrenheit, heart rate 84 per minute and respiratory rate 18 per minute, blood pressure 118/89 mm of mercury and oxygen saturation is 96% on room air. HEENT: His head is atraumatic. NECK: Supple and without JVD or thyroid enlargement. HEART: Sounds are irregular. LUNGS: Clear to auscultation. ABDOMEN: Soft and nontender and bowel sounds are normal. EXTREMITIES: Without any cyanosis or clubbing. NEUROLOGICAL: He is at his baseline mentation without any focal deficits. LABORATORY STUDIES: Today's labs show a WBC count of 10.8, hemoglobin 11.5 and hematocrit 35.8. Sodium 133, potassium 4.8, BUN 28 and creatinine 3.45. PROBLEMS: 1. End-stage renal disease - The patient was dialyzed yesterday and we plan his next dialysis tomorrow. Electrolytes are stable. 2. Congestive heart failure volume status is very well compensated with dialysis. We removed 1.5 liters of fluid yesterday which he tolerated well. 3. Hyponatremia slight improvement in hyponatremia noted with dialysis yesterday. We will continue to manage it with dialysis and no other intervention is needed. 4. Peripheral vascular disease and ischemic ulcers on both lower extremities - The patient has significant peripheral vascular disease and ischemic ulcers. He continues to see Wound Care. He is being followed by Interventional Radiology for angioplasties.
[2021-01-11] MEDS: MIRALAX *UNIT DOSE* 17GM PACKET PO SCH (21:03)
[2021-01-11] MEDS: NORTRIPTYLINE 10 MG CAP PO SCH (21:03)
[2021-01-11] MEDS: QUEtiapine FUMARATE 12.5 MG HALF-TAB PO SCH (21:04)
[2021-01-11] MEDS: ACETAMINOPHEN TAB 650MG DOSE (2X325MG) PO PRN (22:49)
[2021-01-11] MEDS ORDERED: TAMSULOSIN 0.4 MG CAP PO ONE (23:00)
[2021-01-12] MEDS: HYDROmorphone 2 MG TAB PO PRN ×2 (00:16→14:16)
[2021-01-12 06:00] VITALS: BP 141/82
[2021-01-12] MEDS: METOPROLOL TART 50 MG TAB PO SCH ×2 (06:27→21:29)
[2021-01-12] MEDS: ASPIRIN 81MG ENTERIC TABLET PO SCH (06:27)
[2021-01-12] MEDS: SENOKOT S TAB PO SCH ×2 (06:28→21:28)
[2021-01-12] MEDS: NEPHRO-VIT TAB (NEPHROCAPS) PO SCH (06:28)
[2021-01-12] MEDS: PANTOPRAZOLE 40MG TAB (PROTONIX) PO SCH (06:28)
[2021-01-12 07:10] LABS: BASO # 0.1 10^3/uL (0.0-0.2); BASO % 0.6 % (0.0-1.0); EOS # 0.6 10^3/uL (0.0-0.5); EOS % 5.8 % (0.0-3.0); HEMOGLOBIN 10.9 g/dl (13.5-17.5); LYMPH # 1.7 10^3/uL (1.5-5.0); LYMPH % 18.1 % (24.0-44.0); MEAN CORPUSCULAR HEMOGLOBIN 32.9 pg (27.0-33.0); MEAN CORPUSCULAR HGB CONC 32.1 g/dl (32.0-36.5); MEAN CORPUSCULAR VOLUME 102.7 fl (80.0-96.0); MONO # 1.1 10^3/uL (0.0-0.8); MONO % 11.4 % (2.0-8.0); NEUTROPHILS % 62.5 % (36.0-66.0); PLATELET COUNT, AUTOMATED 178 10^3/uL (150-450); RED BLOOD COUNT 3.31 10^6/uL (4.30-6.10); WHITE BLOOD COUNT 9.6 10^3/uL (4.0-10.0)
[2021-01-12 07:16] LABS: INR 2.82
[2021-01-12 07:30] LABS: ALBUMIN 2.4 GM/DL (3.2-5.2); BILIRUBIN,TOTAL 0.5 MG/DL (0.2-1.0); C REACTIVE PROTEIN QUANTITATIV 8.04 MG/DL (0.00-0.30); CALCIUM LEVEL 8.7 MG/DL (8.8-10.2); CREATININE FOR GFR 4.12 MG/DL (0.70-1.30); GLOMERULAR FILTRATION RATE 15.1 (>42); MAGNESIUM LEVEL 2.1 MG/DL (1.8-2.4); POTASSIUM SERUM 4.9 MEQ/L (3.5-5.1)
[2021-01-12] MEDS: HumaLOG INSULIN (NovoLOG) PER UNIT SC SCH ×4 (08:19→21:00)
[2021-01-12] MEDS: SANTYL OINT 30GM TOP SCH (08:42)
[2021-01-12] MEDS: DIMETHICONE 2% OINTMENT(VANICREAM) 70GM TUBE TOP SCH (08:51)
--- NOTE | 2021-01-12 11:52 | IPN ---
PROGRESS NOTE DATE: 01/12/2021 SUBJECTIVE: Mr. Bernard is seen this morning on his bedside. He is lying in his bed without any acute distress. He denies any nausea, vomiting, dyspnea or chest pain. Bilateral foot pain persist due to ulcers. OBJECTIVE: Temperature is 97.5 degrees Fahrenheit, heart rate 82 per minute and respiratory rate 17 per minute. Blood pressure 140/82 mmHg and oxygen saturation 99% on room air. His head is atraumatic. Neck is supple and without any jugular venous distention (JVD) or thyroid enlargement. Right internal jugular vein hemodialysis catheter is in place. Abdomen is soft and nontender and bowel sounds are normal. Extremities without any cyanosis or clubbing. Neurologically, he is at his baseline mentation without any focal deficits. He does get confused at times. LABORATORY DATA: Today's labs show WBC count 9.6, hemoglobin 10.9 and hematocrit 34. Sodium 134, potassium 4.9, BUN 36 and creatinine 4.12. Glucose 176 and calcium 8.7. C-reactive protein is slightly better at 8.0. INR 2.82 . PROBLEMS: 1. End-stage renal disease. The patient has been dialysis dependent and was last dialyzed on January 10. He is due to dialysis today, however, we may have to postpone his dialysis tomorrow due to scheduling and staffing issues. His electrolytes are stable and volume status is well compensated, so there will be no harm in postponing his dialysis by one day. If we could get him on this afternoon, they we will dialyze him today. 2. Anemia. His anemia is stable and does not need any urgent intervention. 3. Hyponatremia. Slight improvement in his sodium level is noted. We will anticipate further improvement with dialysis. No intervention is needed. 4. Peripheral vascular disease and bilateral lower extremity ischemic ulcers. The patient continues to get wound care and waiting for further angioplasty.
[2021-01-12] MEDS: ENOXAPARIN 100MG/1ML SYRINGE (J1650 PER 10MG) SC SCH (12:31)
--- NOTE | 2021-01-12 18:45 | CR ---
ADVANCED WOUND CARE CONSULTATION DATE: 01/12/2021 REQUESTING PHYSICIAN: Dr. Delilah Clements REASON FOR CONSULTATION: Bilateral lower extremity wounds. Wound care telemedicine provides a visual assessment of a wound or wounds without the benefit of physical examination. This can assist with establishing a diagnosis and etiology. This allows for an initial treatment plan. As wounds often change, it may be necessary to modify the original care. Our recommendation is periodic wound reassessment to monitor treatment. Failure to comply may result in non healing of the wounds, possible complications and/or a poor outcome. The recommendations given will serve as treatment options. As I will not be following this patient, this care plan will require the attending physician to give and sign the orders. Upon discharge, outpatient follow up can be scheduled at our [facility]. HISTORY OF PRESENT ILLNESS: A 75-year-old male in declining health with multiple comorbidities including advanced peripheral vascular disease, on dialysis, diabetes. The patient is declining in health and has been hospitalized intermittently multiple times over the last month. Specifically, left lower extremity shows a medial supramalleolar wound with black eschar, measuring 2.0 cm by 2.0 cm and ischemic necrosis involving the left great toe, second toe, skipping the third toe and involving the fourth and fifth toes. On the right lower extremity medial supramalleolar, there is a wound cluster measuring 11.0 cm by 5.0 cm and 40% of the cluster area showing wounds and a wound involving the right great toe, medial aspect, measuring 5.5 cm by 5.0 cm. Right and left heels are free of ulceration. 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 This presents a treatment dilemma in that ideally these should be amputated, however with poor blood supply and his multiple comorbidities, digital amputation which would require a transmetatarsal of all digits on the left and great toe on the right have a high probability of non-healing. This can lead to a higher amputation, significant morbidity and could lead to ultimate mortality. Palliative care, meaning the wound should be treated without major surgical intervention if possible would be appropriate at this time. The idea is to prevent further extension and try to avoid a major amputation. TREATMENT PLAN: Wounds should be cleansed with Vashe cleaning and then all necrotic areas painted with Betadine. Foam dressings for protection should be utilized and if possible, foams between the toes. More proximal wounds can be treated with Vashe and foam dressings. Adequate analgesia for pain management is also necessary along with appropriate nutritional supplements. Any local debridement at the wound edges would be desirable to promote any potential drainage and allow for drainage and to prevent any potential extension. This is ischemic necrosis and antibiotic therapy at this time is of limited value. Close observation is needed, and the patient should be checked for temperature elevation, high white count, and ascending erythema producing cellulitis bilaterally. All of these would indicate worsening of his condition. If this does occur, consideration for open amputation would be required. However this would require anesthesia which is a further complication. This case was discussed in detail with Dr. Tyree REGALADO
[2021-01-12] MEDS: TAMSULOSIN 0.4 MG CAP PO SCH (21:28)
[2021-01-12] MEDS: MIRALAX *UNIT DOSE* 17GM PACKET PO SCH (21:28)
[2021-01-12] MEDS: QUEtiapine FUMARATE 12.5 MG HALF-TAB PO SCH (21:28)
[2021-01-12] MEDS: NORTRIPTYLINE 10 MG CAP PO SCH (21:29)
[2021-01-13 06:00] VITALS: BP 132/73
[2021-01-13] MEDS: SENOKOT S TAB PO SCH ×2 (07:25→21:07)
[2021-01-13] MEDS: PANTOPRAZOLE 40MG TAB (PROTONIX) PO SCH (07:25)
[2021-01-13] MEDS: NEPHRO-VIT TAB (NEPHROCAPS) PO SCH (07:25)
[2021-01-13] MEDS: ASPIRIN 81MG ENTERIC TABLET PO SCH (07:25)
[2021-01-13] MEDS: METOPROLOL TART 50 MG TAB PO SCH ×2 (07:26→21:09)
[2021-01-13] MEDS: DIMETHICONE 2% OINTMENT(VANICREAM) 70GM TUBE TOP SCH (07:31)
[2021-01-13] MEDS: HumaLOG INSULIN (NovoLOG) PER UNIT SC SCH ×4 (08:05→22:27)
[2021-01-13 11:29] LABS: BASO # 0.1 10^3/uL (0.0-0.2); BASO % 0.5 % (0.0-1.0); EOS # 0.5 10^3/uL (0.0-0.5); EOS % 5.5 % (0.0-3.0); LYMPH # 1.1 10^3/uL (1.5-5.0); LYMPH % 11.3 % (24.0-44.0); MEAN CORPUSCULAR HEMOGLOBIN 33.6 pg (27.0-33.0); MEAN CORPUSCULAR HGB CONC 32.3 g/dl (32.0-36.5); MONO # 0.9 10^3/uL (0.0-0.8); MONO % 9.6 % (2.0-8.0); NEUTROPHILS # 7.1 10^3/uL (1.5-8.5); NEUTROPHILS % 72.1 % (36.0-66.0); PLATELET COUNT, AUTOMATED 163 10^3/uL (150-450); RED BLOOD COUNT 2.98 10^6/uL (4.30-6.10); WHITE BLOOD COUNT 9.8 10^3/uL (4.0-10.0)
[2021-01-13 11:40] LABS: INR 2.22
[2021-01-13 12:00] LABS: ALBUMIN 2.1 GM/DL (3.2-5.2); BILIRUBIN,TOTAL 0.5 MG/DL (0.2-1.0); C REACTIVE PROTEIN QUANTITATIV 7.86 MG/DL (0.00-0.30); CALCIUM LEVEL 8.7 MG/DL (8.8-10.2); CREATININE FOR GFR 3.83 MG/DL (0.70-1.30); GLOMERULAR FILTRATION RATE 16.5 (>42); POTASSIUM SERUM 4.6 MEQ/L (3.5-5.1); TOTAL PROTEIN 7.9 GM/DL (6.4-8.2)
--- NOTE | 2021-01-13 12:06 | IPN ---
PROGRESS NOTE DATE: 01/13/2021 SUBJECTIVE: Mr. Pabon is seen this morning on his bedside. We could not dialyze him yesterday due to staffing issues. He will be dialyzed this afternoon. He denies any dyspnea, chest pain, nausea or vomiting. OBJECTIVE: VITAL SIGNS: Temperature is 97.6 degrees Fahrenheit, heart rate is 82 per minute and respiratory rate is 18 per minute. Blood pressure is 132/73 mmHg and oxygen saturation 96% on room air. HEENT: His head is atraumatic. NECK: Supple. JVD is not abnormally elevated. Right sided internal jugular vein hemodialysis catheter is intact. HEART: Heart sounds are regular. LUNGS: Clear to auscultation. ABDOMEN: Soft and nontender. Bowel sounds are normal. EXTREMITIES: Without any cyanosis or clubbing. NEUROLOGIC: He is at his baseline mentation. LABORATORY DATA: WBC 9.8, hemoglobin 10.0 and hematocrit 31. Platelets are 163,000. Chemistry is still pending. PROBLEMS: 1. Endstage renal disease. Patient has been dialysis dependent. He was scheduled for dialysis yesterday, however could not be dialyzed due to staffing and scheduling issues. He will be dialyzed this afternoon. His volume status is well-compensated. 2. Anemia, his anemia has been stable and does not need any urgent intervention. 3. Hyponatremia. His sodium level has been stable and yesterday his sodium was 134. Today's labs are still pending. 4. Peripheral vascular disease with ulcers on both lower extremities. Patient has ischemic ulcers with significant peripheral vascular disease. He is being followed by Dr. Tafoya for angioplasties. 5. Deconditioning and weakness. Patient is very weak and mostly bed-bound. He might require subacute rehab.
[2021-01-13] MEDS: ENOXAPARIN 100MG/1ML SYRINGE (J1650 PER 10MG) SC SCH ×2 (14:30→15:13)
[2021-01-13] MEDS: HYDROmorphone 2 MG TAB PO PRN (18:57)
[2021-01-13] MEDS: QUEtiapine FUMARATE 12.5 MG HALF-TAB PO SCH (21:07)
[2021-01-13] MEDS: MIRALAX *UNIT DOSE* 17GM PACKET PO SCH (21:07)
[2021-01-13] MEDS: TAMSULOSIN 0.4 MG CAP PO SCH (21:07)
[2021-01-13] MEDS: NORTRIPTYLINE 10 MG CAP PO SCH (21:07)
[2021-01-14 06:00] VITALS: BP 125/68
[2021-01-14 07:09] LABS: BASO # 0.1 10^3/uL (0.0-0.2); BASO % 0.6 % (0.0-1.0); EOS # 0.3 10^3/uL (0.0-0.5); EOS % 3.2 % (0.0-3.0); HEMATOCRIT 34.9 % (42.0-52.0); HEMOGLOBIN 11.1 g/dl (13.5-17.5); LYMPH # 1.6 10^3/uL (1.5-5.0); LYMPH % 14.5 % (24.0-44.0); MEAN CORPUSCULAR HEMOGLOBIN 32.9 pg (27.0-33.0); MEAN CORPUSCULAR HGB CONC 31.8 g/dl (32.0-36.5); MEAN CORPUSCULAR VOLUME 103.6 fl (80.0-96.0); MONO # 1.1 10^3/uL (0.0-0.8); MONO % 10.2 % (2.0-8.0); NEUTROPHILS # 7.5 10^3/uL (1.5-8.5); NEUTROPHILS % 70.2 % (36.0-66.0); PLATELET COUNT, AUTOMATED 164 10^3/uL (150-450); RED BLOOD COUNT 3.37 10^6/uL (4.30-6.10); WHITE BLOOD COUNT 10.7 10^3/uL (4.0-10.0)
[2021-01-14 07:20] LABS: INR 1.62; PROTHROMBIN TIME 19.6 SECONDS (12.7-14.5)
[2021-01-14 07:35] LABS: ALBUMIN 2.4 GM/DL (3.2-5.2); BILIRUBIN,TOTAL 0.6 MG/DL (0.2-1.0); C REACTIVE PROTEIN QUANTITATIV 9.47 MG/DL (0.00-0.30); CALCIUM LEVEL 8.4 MG/DL (8.8-10.2); CREATININE FOR GFR 3.19 MG/DL (0.70-1.30); GLOMERULAR FILTRATION RATE 20.3 (>42); MAGNESIUM LEVEL 1.9 MG/DL (1.8-2.4); POTASSIUM SERUM 4.5 MEQ/L (3.5-5.1); TOTAL PROTEIN 8.1 GM/DL (6.4-8.2)
[2021-01-14] MEDS: HumaLOG INSULIN (NovoLOG) PER UNIT SC SCH ×4 (07:58→21:00)
[2021-01-14] MEDS: SENOKOT S TAB PO SCH ×2 (07:59→21:40)
[2021-01-14] MEDS: NEPHRO-VIT TAB (NEPHROCAPS) PO SCH (07:59)
[2021-01-14] MEDS: PANTOPRAZOLE 40MG TAB (PROTONIX) PO SCH (07:59)
[2021-01-14] MEDS: ASPIRIN 81MG ENTERIC TABLET PO SCH (07:59)
[2021-01-14] MEDS: HYDROmorphone 2 MG TAB PO PRN ×2 (07:59→16:02)
[2021-01-14] MEDS: METOPROLOL TART 50 MG TAB PO SCH ×2 (07:59→21:39)
[2021-01-14] MEDS: DIMETHICONE 2% OINTMENT(VANICREAM) 70GM TUBE TOP SCH (08:00)
[2021-01-14] MEDS: SANTYL OINT 30GM TOP SCH (08:00)
[2021-01-14] MEDS: ENOXAPARIN 100MG/1ML SYRINGE (J1650 PER 10MG) SC SCH ×2 (12:38→12:43)
[2021-01-14] MEDS: TAMSULOSIN 0.4 MG CAP PO SCH (21:39)
[2021-01-14] MEDS: QUEtiapine FUMARATE 12.5 MG HALF-TAB PO SCH (21:40)
[2021-01-14] MEDS: NORTRIPTYLINE 10 MG CAP PO SCH (21:40)
[2021-01-14] MEDS: MIRALAX *UNIT DOSE* 17GM PACKET PO SCH (21:40)
[2021-01-15] MEDS: SENOKOT S TAB PO SCH ×2 (09:36→21:27)
[2021-01-15] MEDS: ASPIRIN 81MG ENTERIC TABLET PO SCH (09:36)
[2021-01-15] MEDS: NEPHRO-VIT TAB (NEPHROCAPS) PO SCH (09:36)
[2021-01-15] MEDS: PANTOPRAZOLE 40MG TAB (PROTONIX) PO SCH (09:36)
[2021-01-15] MEDS: METOPROLOL TART 50 MG TAB PO SCH ×2 (09:37→21:30)
[2021-01-15] MEDS: DIMETHICONE 2% OINTMENT(VANICREAM) 70GM TUBE TOP SCH (09:47)
[2021-01-15] MEDS: HumaLOG INSULIN (NovoLOG) PER UNIT SC SCH ×4 (09:47→21:00)
[2021-01-15 13:40] LABS: BASO # 0.1 10^3/uL (0.0-0.2); BASO % 0.7 % (0.0-1.0); EOS # 0.5 10^3/uL (0.0-0.5); EOS % 3.9 % (0.0-3.0); HEMATOCRIT 33.2 % (42.0-52.0); HEMOGLOBIN 10.7 g/dl (13.5-17.5); LYMPH # 1.1 10^3/uL (1.5-5.0); LYMPH % 9.3 % (24.0-44.0); MEAN CORPUSCULAR HEMOGLOBIN 33.2 pg (27.0-33.0); MEAN CORPUSCULAR HGB CONC 32.2 g/dl (32.0-36.5); MEAN CORPUSCULAR VOLUME 103.1 fl (80.0-96.0); MONO # 0.9 10^3/uL (0.0-0.8); MONO % 7.2 % (2.0-8.0); NEUTROPHILS # 9.1 10^3/uL (1.5-8.5); NEUTROPHILS % 77.8 % (36.0-66.0); PLATELET COUNT, AUTOMATED 158 10^3/uL (150-450); RED BLOOD COUNT 3.22 10^6/uL (4.30-6.10); WHITE BLOOD COUNT 11.7 10^3/uL (4.0-10.0)
[2021-01-15 14:17] LABS: ALBUMIN 2.2 GM/DL (3.2-5.2); BILIRUBIN,TOTAL 0.5 MG/DL (0.2-1.0); C REACTIVE PROTEIN QUANTITATIV 10.9 MG/DL (0.00-0.30); CALCIUM LEVEL 8.1 MG/DL (8.8-10.2); CREATININE FOR GFR 4.07 MG/DL (0.70-1.30); GLOMERULAR FILTRATION RATE 15.4 (>42); MAGNESIUM LEVEL 2.1 MG/DL (1.8-2.4); POTASSIUM SERUM 5.3 MEQ/L (3.5-5.1); TOTAL PROTEIN 7.7 GM/DL (6.4-8.2)
[2021-01-15] MEDS: HYDROmorphone 2 MG TAB PO PRN (15:16)
[2021-01-15] MEDS ORDERED: SOD POLYSTYRENE SULFONATE SUSP 15 GM/60 ML UD PO ONE (16:00)
[2021-01-15] MEDS: QUEtiapine FUMARATE 12.5 MG HALF-TAB PO SCH (21:27)
[2021-01-15] MEDS: MIRALAX *UNIT DOSE* 17GM PACKET PO SCH (21:27)
[2021-01-15] MEDS: TAMSULOSIN 0.4 MG CAP PO SCH (21:27)
[2021-01-15] MEDS: NORTRIPTYLINE 10 MG CAP PO SCH (21:27)
[2021-01-16] MEDS: HYDROmorphone 2 MG TAB PO PRN ×2 (02:46→12:50)
[2021-01-16 06:00] VITALS: BP 135/70
[2021-01-16] MEDS: ASPIRIN 81MG ENTERIC TABLET PO SCH (06:02)
[2021-01-16] MEDS: NEPHRO-VIT TAB (NEPHROCAPS) PO SCH (06:02)
[2021-01-16] MEDS: METOPROLOL TART 50 MG TAB PO SCH ×2 (06:03→21:39)
[2021-01-16] MEDS: SENOKOT S TAB PO SCH ×2 (06:03→21:39)
[2021-01-16] MEDS: PANTOPRAZOLE 40MG TAB (PROTONIX) PO SCH (06:03)
[2021-01-16] MEDS: ACETAMINOPHEN TAB 650MG DOSE (2X325MG) PO PRN (06:04)
[2021-01-16] MEDS: HumaLOG INSULIN (NovoLOG) PER UNIT SC SCH ×4 (07:56→21:00)
[2021-01-16 08:05] LABS: BASO # 0.1 10^3/uL (0.0-0.2); BASO % 0.7 % (0.0-1.0); EOS # 0.5 10^3/uL (0.0-0.5); EOS % 4.6 % (0.0-3.0); HEMATOCRIT 30.9 % (42.0-52.0); HEMOGLOBIN 9.8 g/dl (13.5-17.5); LYMPH # 1.2 10^3/uL (1.5-5.0); LYMPH % 11.3 % (24.0-44.0); MEAN CORPUSCULAR HEMOGLOBIN 32.8 pg (27.0-33.0); MEAN CORPUSCULAR HGB CONC 31.7 g/dl (32.0-36.5); MEAN CORPUSCULAR VOLUME 103.3 fl (80.0-96.0); MONO % 9.1 % (2.0-8.0); NEUTROPHILS % 73.2 % (36.0-66.0); PLATELET COUNT, AUTOMATED 160 10^3/uL (150-450); RED BLOOD COUNT 2.99 10^6/uL (4.30-6.10); WHITE BLOOD COUNT 10.9 10^3/uL (4.0-10.0)
[2021-01-16 08:19] LABS: INR 1.27; PROTHROMBIN TIME 16.4 SECONDS (12.7-14.5)
[2021-01-16 08:37] LABS: ALBUMIN 2.2 GM/DL (3.2-5.2); BILIRUBIN,TOTAL 0.6 MG/DL (0.2-1.0); C REACTIVE PROTEIN QUANTITATIV 10.1 MG/DL (0.00-0.30); CALCIUM LEVEL 8.3 MG/DL (8.8-10.2); CREATININE FOR GFR 3.87 MG/DL (0.70-1.30); GLOMERULAR FILTRATION RATE 16.3 (>42); MAGNESIUM LEVEL 1.9 MG/DL (1.8-2.4); TOTAL PROTEIN 7.4 GM/DL (6.4-8.2)
[2021-01-16] MEDS: SANTYL OINT 30GM TOP SCH (09:00)
[2021-01-16] MEDS: DIMETHICONE 2% OINTMENT(VANICREAM) 70GM TUBE TOP SCH (13:32)
[2021-01-16] MEDS ORDERED: ISOVUE-300 61% 50ML VIAL As Ordered ONE ×2 (14:16→14:17)
[2021-01-16] MEDS ORDERED: LIDOCAINE 1% MDV 20ML VIAL As Ordered ONE (14:17)
[2021-01-16] MEDS ORDERED: fentaNYL 100 MCG/2 ML INJECTION (J3010) As Ordered ONE (14:42)
[2021-01-16] MEDS ORDERED: MIDAZOLAM INJ 2MG/2ML VIAL (J2250 PER 1MG) As Ordered ONE (14:42)
[2021-01-16] MEDS ORDERED: diphenhydrAMINE 50MG/ML VIAL (J1200) As Ordered ONE (14:42)
--- NOTE | 2021-01-16 14:50 | IRMSE ---
[facility] IR Moderate Sedation Eval. Date and Time Date: Jan 16, 2021 Time: 14:49 ASA Classification ASA Classification: III-Severe systemic dis. Mallampati Score: II NPO: Yes Obstructive Sleep Apnea: No Interval Plan: moderate sedation LESLIE DEL VALLE MD Jan 16, 2021 14:50
[2021-01-16 17:45] VITALS: BP 159/78
[2021-01-16 18:15] VITALS: BP 132/63
[2021-01-16 18:45] VITALS: BP 107/59
--- NOTE | 2021-01-16 21:19 | IPNPDOC ---
Subjective CC/HPI The patient is a 75-year-old male admitted with a reason for visit of Dyspnea, Encephalopathy Acute, Weakness. Events since last encounter Pt was seen during HD. Mental status is at baseline. Tolerating HD well. General: Denies: Chills, Night Sweats Constitutional: Denies: Chills, Fever Eyes: Denies: Pain, Vision change ENT: Denies: Ear Pain Skin: Reports: Lesions (Leg ulcers) Pulmonary: Denies: Dyspnea, Cough Cardiovascular: Denies: Chest Pain Gastrointestinal: Denies: Vomiting Hematologic: Denies: Bruising, Bleeding Excessively Musculoskeletal: Denies: Neck Pain Psych: Reports: Memory Issues Objective Physical Examination General Exam: Alert, No Acute Distress EYE EXAM: PERRLA, Conjunctiva & lids normal, EOMI ENT EXAM: Atraumatic, Mucous membr. moist/pink Neck Exam: Supple, Other; No: JVD Chest Exam: Clear to auscultation, Normal air movement Heart Exam: Rate Normal, Normal S1, Normal S2 ABDOMEN EXAM: Normal bowel sounds, Soft Extremity Exam: Other (Bilateral foot ulcers) Skin Exam: Nl turgor and temperature Neuro Exam: Other Psych Exam: Mental status NL Vital Signs/I&O Vital Signs Date Time Temp Pulse Resp B/P (MAP) Pulse Ox O2 Delivery O2 Flow Rate FiO2 01/16/21 18:45 97.3 89 16 107/59 (75) 98 Room Air 01/16/21 17:06 2.0 I&O- Last 24 Hours up to 6 AM 01/16/21 06:00 Intake Total 700 ml Output Total 650 ml Balance 50 ml Laboratory Data Labs 24H Laboratory Tests 2 01/16/21 06:47: Immature Granulocyte % (Auto) 1.1, Neutrophils (%) (Auto) 73.2H, Lymphocytes (%) (Auto) 11.3L, Monocytes (%) (Auto) 9.1H, Eosinophils (%) (Auto) 4.6H, Basophils (%) (Auto) 0.7, Neutrophils # (Auto) 8.0, Lymphocytes # (Auto) 1.2L, Monocytes # (Auto) 1.0H, Eosinophils # (Auto) 0.5, Basophils # (Auto) 0.1, Nucleated Red Blood Cells % (auto) 0.0, Prothrombin Time 16.4H, Prothromb Time International Ratio 1.27, Anion Gap 7L, Glomerular Filtration Rate 16.3L, Calcium Level 8.3L, Magnesium Level 1.9, Total Bilirubin 0.6, Aspartate Amino Transf (AST/SGOT) 13, Alanine Aminotransferase (ALT/SGPT) 13, Alkaline Phosphatase 90, C-Reactive Protein, Quantitative 10.10H, Total Protein 7.4, Albumin 2.2L, Albumin/Globulin Ratio 0.4 01/16/21 07:38: Bedside Glucose (Misc Panel) 233H 01/16/21 11:59: Bedside Glucose (Misc Panel) 170H 01/16/21 18:30: Bedside Glucose (Misc Panel) 243H 01/16/21 20:44: Bedside Glucose (Misc Panel) 190H CBC/BMP Laboratory Tests 01/16/21 06:47 FSBS Laboratory Tests Test 01/16/21 07:38 01/16/21 11:59 01/16/21 18:30 01/16/21 20:44 Range/Units Bedside Glucose (Misc Panel) 233 170 243 190 83-110 MG/DL Current Medications Current Medications Medications (Trade) Dose Ordered Sig/Jackelin Route PRN Reason Start Time Stop Time Status Last Admin Dose Admin Acetaminophen (Tylenol Tab) 650 mg Q4H PRN PO MILD PAIN or TEMP > 101 12/14/20 21:45 01/16/21 06:04 Acetaminophen/ Hydrocodone Bitart ([place], [place] 5/325) 1 tab Q6HP PRN PO MODERATE PAIN (PS 5-7) 12/18/20 14:50 12/25/20 10:38 DC 12/24/20 14:20 Al Hydrox/Mg Hydrox/Simethicone (Mylanta) 30 ml DAILY PRN PO DYSPEPSIA 12/14/20 21:45 Aspirin (Ecotrin) 81 mg DAILY PO 12/15/20 09:00 01/16/21 06:02 Cefdinir (Omnicef) 300 mg BID PO 12/22/20 21:00 12/22/20 17:12 DC Cefdinir (Omnicef) 300 mg TuThSa@1600 PO 12/31/20 16:00 01/05/21 23:59 DC 01/05/21 17:14 Ceftaroline Fosamil 200 mg/ Dextrose 50 ml @ 50 mls/hr Q12H IV 12/18/20 13:00 12/22/20 13:12 DC 12/22/20 01:27 Ceftriaxone Sodium 1 gm/ Dextrose 50 ml @ 100 mls/hr Q24H IV 12/29/20 13:00 12/30/20 12:36 DC 12/29/20 13:56 Collagenase (SantyL) apply nickel th... Q2D TOP 12/17/20 09:00 01/14/21 08:00 Darbepoetin Jos (Aranesp (Dialysis Use)) 100 mcg HD IV 12/15/20 14:35 01/02/21 11:15 DC 12/29/20 09:59 Dextrose (Dextrose 50%) 25 ml ASDIRECTED PRN IV SEE LABEL COMMENTS 12/15/20 00:40 Dimethicone (Vanicream Ointment) Apply to bilateral lo... DAILY TOP 12/20/20 09:00 01/16/21 13:32 Doxycycline Hyclate (Vibramycin) 100 mg BID PO 12/22/20 21:00 12/29/20 12:14 DC 12/29/20 06:07 Doxycycline Hyclate (Vibramycin) 100 mg BID PO 12/30/20 09:00 01/05/21 21:01 DC 01/05/21 20:27 Enoxaparin Sodium (Lovenox) 100 mg Q24H SC 01/17/21 09:00 Enoxaparin Sodium (Lovenox) 100 mg Q24H SC 01/10/21 13:00 01/14/21 23:59 DC 01/12/21 12:31 Glucagon (Glucagon) 1 mg ASDIRECTED PRN SC SEE LABEL COMMENTS 12/15/20 00:40 Glucose (Glucose) 16 GM ASDIRECTED PRN PO SEE LABEL COMMENTS 12/15/20 00:40 Heparin Sodium (Heparin) Please refer to ... ASDIRECTED XX 12/17/20 07:50 12/18/20 07:49 DC Heparin Sodium (Heparin) Please refer to ... ASDIRECTED XX 12/27/20 06:00 12/28/20 05:59 DC Heparin Sodium (Heparin) Please refer to ... ASDIRECTED XX 12/29/20 06:00 12/30/20 05:59 DC Heparin Sodium (Heparin) Please refer to ... ASDIRECTED XX 12/31/20 08:35 01/01/21 08:34 DC Heparin Sodium (Heparin) Please refer to ... ASDIRECTED XX 01/03/21 10:55 01/04/21 10:54 DC Heparin Sodium (Heparin) Please refer to ... ASDIRECTED XX 01/05/21 07:40 01/06/21 07:39 DC Heparin Sodium (Heparin) Please refer to ... ASDIRECTED XX 12/15/20 12:45 12/16/20 12:44 DC Heparin Sodium (Heparin) Please refer to ... ASDIRECTED XX 01/16/21 06:00 01/17/21 05:59 Heparin Sodium (Heparin) dose as per volume indica... ASDIRECTED PRN IV SEE LABEL COMMENTS 12/17/20 07:50 12/18/20 07:49 DC Heparin Sodium (Heparin) dose as per volume indica... ASDIRECTED PRN IV SEE LABEL COMMENTS 12/27/20 06:00 12/27/20 12:19 DC Heparin Sodium (Heparin) dose as per volume indica... ASDIRECTED PRN IV SEE LABEL COMMENTS 12/29/20 06:00 12/29/20 23:19 DC Heparin Sodium (Heparin) dose as per volume indica... ASDIRECTED PRN IV SEE LABEL COMMENTS 12/31/20 08:35 01/01/21 08:34 DC Heparin Sodium (Heparin) dose as per volume indica... ASDIRECTED PRN IV SEE LABEL COMMENTS 01/03/21 10:55 01/04/21 10:54 DC Heparin Sodium (Heparin) dose as per volume indica... ASDIRECTED PRN IV SEE LABEL COMMENTS 01/05/21 07:40 01/06/21 07:39 DC Heparin Sodium (Heparin) dose as per volume indica... ASDIRECTED PRN IV SEE LABEL COMMENTS 12/15/20 12:45 12/16/20 12:44 DC Heparin Sodium (Heparin) dose as per volume indica... ASDIRECTED PRN IV SEE LABEL COMMENTS 01/16/21 06:00 01/16/21 13:54 DC Home Med (Home Med List Complete!) ASDIRECTED XX 12/14/20 22:10 12/14/20 22:18 DC Hydromorphone HCl (Dilaudid) 1 mg Q6HP PRN PO MODERATE PAIN (PS 5-7) 12/25/20 10:40 01/16/21 12:50 Insulin Human Lispro (HumaLOG INSULIN) See Protocol Table AC SC 12/15/20 07:30 01/16/21 07:56 Insulin Human Lispro (HumaLOG INSULIN) See Protocol Table QHS SC 12/14/20 21:00 01/07/21 21:42 Iron (Venofer) 100 mg HD IV 12/17/20 13:35 12/31/20 11:34 DC 12/24/20 12:07 Lactic Acid (Lac-Hydrin 12% Lotion) APPLY TO FEET DAILY PRN TOP DRY SKIN 12/15/20 00:40 Lactulose (Cephulac) 30 ml Q6H PO 01/02/21 06:00 01/03/21 06:09 DC 01/02/21 23:47 Magnesium Hydroxide (Milk Of Magnesia) 30 ml DAILY PRN PO CONSTIPATION 12/14/20 21:45 01/03/21 16:49 DC 01/01/21 18:56 Metoprolol Tartrate (Lopressor) 50 mg BID PO 12/14/20 23:55 01/16/21 06:03 Miscellaneous (Unresolved Clarification Entry) SEE LABEL COMMENTS DAILY XX 12/21/20 09:00 12/22/20 07:31 DC 12/21/20 09:00 Nortriptyline HCl (Pamelor) 20 mg QHS PO 12/14/20 23:55 01/15/21 21:27 Ondansetron HCl (ZOFRAN INJection) 4 mg Q8HP PRN IV NAUSEA 12/21/20 13:35 01/01/21 13:31 Pantoprazole Sodium (Protonix) 40 mg DAILY PO 12/15/20 09:00 01/16/21 06:03 Polyethylene Glycol (Miralax) 1 pkt QHS PO 12/14/20 21:00 01/15/21 21:27 Pregabalin (Lyrica) 25 mg BID PO 12/14/20 23:55 12/15/20 08:48 DC 12/15/20 08:26 Quetiapine Fumarate (SEROquel) 12.5 mg QHS PO 12/25/20 21:00 01/15/21 21:27 Senna/Docusate Sodium (Senokot S) 1 tab BID PO 01/07/21 16:15 Cancel Senna/Docusate Sodium (Senokot S) 2 tab BID PO 01/01/21 09:00 01/16/21 06:03 Sodium Chloride 1,000 ml @ 75 mls/hr [id number] IV 12/21/20 09:10 12/21/20 18:59 DC Sodium Chloride 1,000 ml @ 100 mls/hr Q10H IV 12/21/20 14:05 12/21/20 18:59 DC 12/21/20 14:14 Sodium Chloride (Nacl 0.9%) 200 ml ASDIRECTED PRN IV SEE LABEL COMMENTS 12/17/20 07:50 12/18/20 07:49 DC Sodium Chloride (Nacl 0.9%) 200 ml ASDIRECTED PRN IV SEE LABEL COMMENTS 01/03/21 10:55 01/04/21 10:54 DC Sodium Chloride (Nacl 0.9%) 200 ml ASDIRECTED PRN IV SEE LABEL COMMENTS 01/05/21 07:40 01/06/21 07:39 DC Sodium Chloride (Nacl 0.9%) 200 ml ASDIRECTED PRN IV SEE LABEL COMMENTS 12/15/20 12:45 12/16/20 12:44 DC Tamsulosin HCl (Flomax) 0.4 mg DAILY PO 12/31/20 09:00 01/11/21 22:15 DC 01/11/21 09:18 Tamsulosin HCl (Flomax) 0.8 mg DAILY@2100 PO 01/12/21 21:00 01/15/21 21:27 Trimethoprim/ Sulfamethoxazole (Bactrim Ds, Septra Ds 160mg/ 800mg) 1 tab DAILY@1600 PO 12/31/20 16:00 12/30/20 13:03 DC Vitamin B Complex/ Vit C/Folic Acid (Nephro-[facility]) 1 tab DAILY PO 12/28/20 09:00 01/16/21 06:02 Warfarin Sodium (Coumadin) 2 mg Th@1700 PO 12/15/20 17:00 12/17/20 08:10 DC 12/15/20 17:50 Warfarin Sodium (Coumadin) 4 mg DAILY@17 PO 12/17/20 17:00 12/19/20 12:30 DC 12/18/20 17:16 Warfarin Sodium (Coumadin) 4 mg DAILY@17 PO 12/22/20 17:00 01/10/21 11:37 DC 01/08/21 18:10 Warfarin Sodium (Coumadin) 4 mg Ney@1700 PO 12/16/20 17:00 12/17/20 08:10 DC 12/16/20 18:35 Allergies Coded Allergies: Tyler (Verified Allergy, Severe, ANAPHYLAXIS, 11/09/14) Penicillins (Verified Allergy, Severe, Anaphylaxis, 02/17/20) HAS RECEIVED 2nd & 3RD GEN CEPHALOSPORINS w/o PROBLEM metformin (Verified Allergy, Severe, Tongue swelling, 07/02/18) tramadol (Verified Allergy, Unknown, 12/18/20) Cxprygp-Gww-Bjj Reductase Inhibitor (Verified Adverse Reaction, Intermed iate, Altered Mental Status, 07/02/18) codeine (Verified Adverse Reaction, Mild, "out of it". , 02/17/20) mixed with guifenasin duloxetine (Unverified Adverse Reaction, Mild, Nausea and vomiting, 07/02/18) clindamycin (Verified Adverse Reaction, Unknown, DIARRHEA, 02/29/20) Assessment/Plan Date Seen The patient was seen on 01/16/2021 in AM during HD. Plan / VTE VTE Prophylaxis Ordered?: Yes Plan Orders past 48 Hours Orders Fingerstick Blood Sugar (01/14/21 21:42) Fingerstick Blood Sugar (01/15/21 09:43) Fingerstick Blood Sugar (01/15/21 11:35) Hemodialysis Acute Orders (01/16/21 06:00) Heparin (Heparin) (01/16/21 06:00) Heparin (Heparin) (01/16/21 06:00) Sodium Polystyrene Sulfonate (Kayexalate (01/15/21 16:00) Fingerstick Blood Sugar (01/15/21 16:17) C Reactive Protein Quantitativ (01/16/21 06:00) Fingerstick Blood Sugar (01/15/21 21:11) Early Tray (01/16/21 06:00) Npo Diet Except Meds (01/16/21 Breakfast) Fingerstick Blood Sugar (01/16/21 07:38) Fingerstick Blood Sugar (01/16/21 11:59) Ir Fluoro Guidance (01/16/21 ) Groin Check (01/16/21 17:41) Bedrest (01/16/21 17:41) Advance Diet As Tolerated (01/16/21 17:41) Vital Signs Freq & Parameters (01/16/21 ) Arrange Follow Up With: (01/16/21 17:41) Enoxaparin (Lovenox) (01/17/21 09:00) Mechanical Soft Diet (01/16/21 Dinner) Fingerstick Blood Sugar (01/16/21 18:30) C Reactive Protein Quantitativ (01/17/21 06:00) Fingerstick Blood Sugar (01/16/21 20:44) Plan Text 1. Endstage renal disease. Tolerating HD well. Next Hd will be on Saturday. 2. Anemia: Suboptimal Hb. Start aranesp with HD. 3. Peripheral vascular disease with ulcers on both lower extremities. Patient has ischemic ulcers with significant peripheral vascular disease. He is being followed by Dr. Tafoya for angioplasties. 4. Deconditioning and weakness. Patient is very weak and mostly bed-bound. He might require subacute rehab. DILIA SCHROEDER MD Jan 16, 2021 21:19
[2021-01-16] MEDS: TAMSULOSIN 0.4 MG CAP PO SCH (21:38)
[2021-01-16] MEDS: MIRALAX *UNIT DOSE* 17GM PACKET PO SCH (21:39)
[2021-01-16] MEDS: QUEtiapine FUMARATE 12.5 MG HALF-TAB PO SCH (21:39)
[2021-01-16] MEDS: NORTRIPTYLINE 10 MG CAP PO SCH (21:39)
[2021-01-17 06:00] VITALS: BP 136/68
[2021-01-17] MEDS: HumaLOG INSULIN (NovoLOG) PER UNIT SC SCH ×4 (08:15→21:00)
[2021-01-17] MEDS: NEPHRO-VIT TAB (NEPHROCAPS) PO SCH (08:16)
[2021-01-17] MEDS: ENOXAPARIN 100MG/1ML SYRINGE (J1650 PER 10MG) SC SCH (08:16)
[2021-01-17] MEDS: SENOKOT S TAB PO SCH ×2 (08:16→21:01)
[2021-01-17] MEDS: PANTOPRAZOLE 40MG TAB (PROTONIX) PO SCH (08:16)
[2021-01-17] MEDS: ASPIRIN 81MG ENTERIC TABLET PO SCH (08:16)
[2021-01-17] MEDS: METOPROLOL TART 50 MG TAB PO SCH ×2 (08:16→21:05)
[2021-01-17] MEDS: DIMETHICONE 2% OINTMENT(VANICREAM) 70GM TUBE TOP SCH (08:17)
--- NOTE | 2021-01-17 09:06 | IRPON ---
IR Postoperative Note Date Of Procedure: Jan 16, 2021 Time Of Procedure: 17:00 IR Postoperative Note IR Left leg angiogram IR Below-knee runoff arteriogram. IR Ultrasound-guided left common femoral artery access. IR Left superficial femoral artery angioplasty. IR Left popliteal artery angioplasty. IR Left peroneal artery angioplasty. Clinical Information:Severe PAD with nonhealing left lower extremity ulcers and gangrene of multiple toes. Patient may be a candidate for transmetatarsal amputation. Attempt at further endovascular revascularization to ensure postoperative healing and maximize limb preservation. Physician: Dr. Tfaoya. Procedure: The patient was advised of the benefits, risks, and alternatives of the procedure and informed consent was obtained. A time out was performed with verification of the patient's name, MRN, site of procedure, and type of procedure to be performed. The patient was positioned in the supine position on the angiographic table. The site was prepped and draped in the usual sterile fashion. A facility specialist radiograph reveals calcified superficial femoral artery. Ultrasound of the left groin demonstrates patent left common femoral artery. Lidocaine was used for local anesthesia. The left common femoral artery was accessed antegrade, under ultrasound guidance with a microintroducer set. A short 0.018" [place] wire was inserted under fluoroscopy guidance and the needle was exchanged for a 4 Fr microintroducer sheath. The guidewire and dilator were removed and a 0.035" Bentson wire was advanced under fluoroscopy guidance and placed into the distal superficial femoral artery. A 6 Fr sheath was placed over the wire. A left leg angiogram was performed. This demonstrates atherosclerotic disease of the distal superficial femoral artery with multifocal greater than 60% stenosis in the distal superficial femoral artery. Angiography further down the left leg was performed and this demonstrates multifocal greater than 70% stenosis in the popliteal artery. A below knee run off arteriogram was performed and this demonstrates atherosclerotic disease and multifocal stenosis in the tibioperoneal trunk. Complete occlusion of the anterior and posterior tibial artery. Multifocal occlusions in the peroneal artery which, is the single-vessel sole supply the left foot. A 6 x 200 mm Amelia balloon was then advanced over the wire, under fluoroscopy guidance and positioned in the distal superficial femoral artery and popliteal artery. Angioplasty was performed. Heparin was administered. The balloon was deflated. A post angioplasty follow-up arteriogram was performed through the groin sheath and this demonstrates improved flow through the distal superficial femoral artery and popliteal artery with some early venous filling. The angioplasty balloon was removed over the wire. An 035 Ione catheter was advanced over the wire and used in conjunction with a Glidewire to try to recanalize anterior tibial artery. This was not successful. The catheter in conjunction with the wire was then used under fluoroscopy guidance to try to recanalize the posterior tibial artery. This was not possible. The wire was exchanged for an 018 fathom wire. The 018 fathom wire in conjunction with a catheter was used under fluoroscopy guidance to catheterize the peroneal artery. Intermittent injection of contrast confirmed intraluminal location. After successful catheterization of the distal peroneal artery, an arteriogram was performed which demonstrates successful recanalization of the peroneal artery. The peroneal artery is the sole supply to the left foot. Collaterals from the peroneal artery supply the distal posterior tibial artery. There is incomplete pedal loop in the foot. There is microvascular disease in the foot. The catheter was removed over the wire. A 2 x 220 mm Shailesh balloon was then advanced over the wire and positioned in the peroneal artery. This was used to angioplasty the proximal, mid and distal left peroneal artery. The balloon was deflated. A post angioplasty follow-up arteriogram was performed which demonstrates somewhat improved flow in the peroneal artery. Repeat angioplasty of the left peroneal artery was again performed. The balloon was then deflated and removed over the wire. A post angioplasty follow-up below-knee runoff arteriogram was then performed. This demonstrates improved flow in the tibioperoneal trunk, proximal, mid and distal peroneal artery. There is preserved antegrade flow into the left foot without distal embolization. Catheter, wire and sheath were removed, pressure held and hemostasis achieved. A sterile dressing was applied to the site. The patient tolerated the procedure well and was returned to the PRU in stable condition. EBL: < 5 mL. Complications:None. Impression: 1. Left leg angiogram demonstrates multifocal stenosis in the left distal superficial femoral artery and popliteal artery. 2. Single-vessel peroneal artery outflow to the left foot with multifocal stenosis. Completely occluded anterior tibial and posterior tibial artery. 3. Successful angioplasty of distal superficial femoral artery and popliteal artery with improved flow. 4. Unsuccessful attempt at anterior tibial and posterior tibial artery recanalization. 5. Successful angioplasty of peroneal artery and tibioperoneal trunk with improved flow into the left foot via collaterals. Six. Microvascular disease in the left foot with incomplete pedal loop. CC LESLIE Whitmore MD Jan 17, 2021 09:06
[2021-01-17 13:19] LABS: BASO # 0.1 10^3/uL (0.0-0.2); BASO % 0.5 % (0.0-1.0); EOS # 0.3 10^3/uL (0.0-0.5); EOS % 3.1 % (0.0-3.0); HEMATOCRIT 30.5 % (42.0-52.0); HEMOGLOBIN 9.6 g/dl (13.5-17.5); LYMPH # 1.2 10^3/uL (1.5-5.0); LYMPH % 10.8 % (24.0-44.0); MEAN CORPUSCULAR HGB CONC 31.5 g/dl (32.0-36.5); MEAN CORPUSCULAR VOLUME 104.8 fl (80.0-96.0); MONO # 0.9 10^3/uL (0.0-0.8); MONO % 8.6 % (2.0-8.0); NEUTROPHILS # 8.3 10^3/uL (1.5-8.5); NEUTROPHILS % 75.9 % (36.0-66.0); PLATELET COUNT, AUTOMATED 176 10^3/uL (150-450); RED BLOOD COUNT 2.91 10^6/uL (4.30-6.10)
[2021-01-17 13:29] LABS: INR 1.33; PROTHROMBIN TIME 16.9 SECONDS (12.7-14.5)
[2021-01-17 15:29] LABS: ALBUMIN 2.3 GM/DL (3.2-5.2); BILIRUBIN,TOTAL 0.5 MG/DL (0.2-1.0); C REACTIVE PROTEIN QUANTITATIV 10.6 MG/DL (0.00-0.30); CALCIUM LEVEL 8.7 MG/DL (8.8-10.2); CREATININE FOR GFR 3.27 MG/DL (0.70-1.30); GLOMERULAR FILTRATION RATE 19.8 (>42); MAGNESIUM LEVEL 2.1 MG/DL (1.8-2.4); TOTAL PROTEIN 7.5 GM/DL (6.4-8.2)
[2021-01-17] MEDS: NORTRIPTYLINE 10 MG CAP PO SCH (21:01)
[2021-01-17] MEDS: QUEtiapine FUMARATE 12.5 MG HALF-TAB PO SCH (21:01)
[2021-01-17] MEDS: MIRALAX *UNIT DOSE* 17GM PACKET PO SCH (21:05)
[2021-01-17] MEDS: TAMSULOSIN 0.4 MG CAP PO SCH (21:05)
[2021-01-18] MEDS: MAALOX 30 ML SUSP *UDC PO PRN (05:58)
[2021-01-18] MEDS: SENOKOT S TAB PO SCH ×2 (05:59→19:57)
[2021-01-18] MEDS: ENOXAPARIN 100MG/1ML SYRINGE (J1650 PER 10MG) SC SCH (05:59)
[2021-01-18] MEDS: ASPIRIN 81MG ENTERIC TABLET PO SCH (05:59)
[2021-01-18 06:00] VITALS: BP 161/84
[2021-01-18] MEDS: PANTOPRAZOLE 40MG TAB (PROTONIX) PO SCH (06:00)
[2021-01-18] MEDS: METOPROLOL TART 50 MG TAB PO SCH ×2 (06:00→19:58)
[2021-01-18] MEDS: NEPHRO-VIT TAB (NEPHROCAPS) PO SCH (06:07)
[2021-01-18] MEDS: DIMETHICONE 2% OINTMENT(VANICREAM) 70GM TUBE TOP SCH (06:08)
[2021-01-18] MEDS: HumaLOG INSULIN (NovoLOG) PER UNIT SC SCH ×4 (08:25→17:42)
[2021-01-18] MEDS: DARBEPOETIN 100 MCG/0.5 ML *DIALYSIS* SYRINGE (J0882) IV SCH (09:21)
[2021-01-18 09:31] LABS: BASO # 0.1 10^3/uL (0.0-0.2); BASO % 0.6 % (0.0-1.0); EOS # 0.5 10^3/uL (0.0-0.5); EOS % 4.6 % (0.0-3.0); HEMOGLOBIN 9.1 g/dl (13.5-17.5); LYMPH # 1.3 10^3/uL (1.5-5.0); LYMPH % 12.1 % (24.0-44.0); MEAN CORPUSCULAR HEMOGLOBIN 33.5 pg (27.0-33.0); MEAN CORPUSCULAR HGB CONC 32.5 g/dl (32.0-36.5); MEAN CORPUSCULAR VOLUME 102.9 fl (80.0-96.0); MONO # 0.7 10^3/uL (0.0-0.8); MONO % 6.8 % (2.0-8.0); NEUTROPHILS # 7.7 10^3/uL (1.5-8.5); PLATELET COUNT, AUTOMATED 166 10^3/uL (150-450); RED BLOOD COUNT 2.72 10^6/uL (4.30-6.10); WHITE BLOOD COUNT 10.3 10^3/uL (4.0-10.0)
[2021-01-18 10:03] LABS: ALBUMIN 2.1 GM/DL (3.2-5.2); BILIRUBIN,TOTAL 0.5 MG/DL (0.2-1.0); CALCIUM LEVEL 8.4 MG/DL (8.8-10.2); CREATININE FOR GFR 4.05 MG/DL (0.70-1.30); GLOMERULAR FILTRATION RATE 15.4 (>42); TOTAL PROTEIN 7.7 GM/DL (6.4-8.2)
--- NOTE | 2021-01-18 16:39 | IPNPDOC ---
Date Seen The patient was seen on 01/18/21. Progress Note SUBJECTIVE: patient is seen and examined at bedside. No acute events overnight. Mentation is appropriate. Pain in feet persists. No abdo pain. Having intermitted urinary retention. Declines straight cath. OBJECTIVE PHYSICAL EXAMINATION: VITAL SIGNS: please see below General: NAD, comfortable HEENT: PERRLA, EOMI, sclerae clear Neck: supple, normal ROM, no JVD Respiratory: lungs CTAB, no wheeze, no rales, no crackles CVS: RRR, normal S1, S2, no murmurs Abdo: soft, no masses, no hepatosplenomegaly, BS+, no rebound tenderness Extremities: no edema, bilateral feet dressing intact, clean and dry. MSK: no joint deformities, normal ROM Neuro: no focal neuro deficits, moving all 4 extremities, CN2-12 intact. Strength 5/5 in all 4 extremities. No nystagmus. Psych: calm, cooperative, AAO x 3 LABORATORY DATA, IMAGING STUDIES, MICROBIOLOGY: Please see below. DVT prophylaxis ordered?: on therapeutic lovenox ASSESSMENT AND PLAN: Mhx of Lewy Body Dementia, CAD s/p CABG, s/p TAVR (on Warfarin), HTN, Diastolic CHF / Pulmonary HTN, SIDNEY, DM2, ESRD on HD, Hx of CVA, Hx of PAD, who presented one day after discharge from acute rehabilitation with confusion and reported shortness of breath. Patient was admitted to hospital service for further evaluation and treatment. Patient's confusion had improved relatively quickly and patient was taken for an angioplasty of his RLE with Dr. Tafoya on 12/21. S/p additional angioplasty of LLE on 01/16/21. RLE with ulceration of medial aspect of leg and LLE with ulceration of toes - Patient denies any significant pain of his feet - Remains hemodynamically stable and afebrile - s/p Angioplasty on 12/21 of RLE peroneal artery with Dr. Tafoya - WBC / CRP count remain elevated but stable - Blood cultures 12/15 and 12/22: No growth at 5 days - Wound culture 12/22: E. Coli / Corynebacterium Species - PCT of 2.74 - s/p Cefdinir and Doxycycline (Completed 7 day course) - c/w Dressing changes as ordered - c/w ASA and Coumadin - c/w Pain control - Dr. Tafoya, Dr. Lo, Dr. Mcclure and Dr. Cevallos on consultation; appreciate their input - Dr. Tafoya performed additional angioplasty on Saturday01/17/21 - successful angioplasty of distal superficial femoral artery and popliteal artery with improved flow. Unsuccessful attempt at anterior tibial and posterior tibial artery recanalization. - presently on lovenox, will d/w Dr. Tafoya re any additional procedures. Will resume warfarin and end lovenox at end of bridge. ESRD on HD (TTS) - Nephrology consulted; appreciate their input s/p Urinary retention - has had several episodes - overnight, had 800 cc drained - repeat bladder scan showing < 5 mL - will defer insertion of osborn cath, repeat bladder scan - if continues to retain, will insert osborn. Delirium on dementia in the setting of Lewy Body Dementia - Does not appear to be delirious this morning, conversing appropriately - Imaging negative - Case was initially discussed with Neurology; Had recommended starting Seroque l; will c/w Seroquel QHS Chronic diastolic congestive heart failure - No evidence of exacerbation / appears euvolemic HTN - BP remains well controlled - c/w Metoprolol Peripheral artery disease - See above Aortic stenosis s/p TAVR - INR elevated - Will discontinue warfarin; will start Lovenox therapeutic (re: Planned intervention with Dr. Tafoya on Saturday ) DM2 - c/w ISS Mood disorder - c/w Nortriptyline GI prophylaxis - c/w Protonix DVT prophylaxis - c/w full anticoagulation with Lovenox; s/p Warfarin Code status: - Full code Disposition: - Awaiting clinical improvement - c/w ALC status VS, I&O, 24H, Fishbone Vital Signs/I&O Vital Signs Date Time Temp Pulse Resp B/P (MAP) Pulse Ox O2 Delivery O2 Flow Rate FiO2 01/18/21 06:00 97.8 99 18 161/84 (109) 96 Room Air 01/17/21 06:00 100.0 I&O- Last 24 Hours up to 6 AM 01/18/21 06:00 Intake Total 946 ml Output Total 800 ml Balance 146 ml Laboratory Data 24H LABS Laboratory Tests 2 01/17/21 16:42: Bedside Glucose (Misc Panel) 193H 01/17/21 21:13: Bedside Glucose (Misc Panel) 203H 01/18/21 08:20: Bedside Glucose (Misc Panel) 244H 01/18/21 09:00: Immature Granulocyte % (Auto) 0.9, Neutrophils (%) (Auto) 75.0H, Lymphocytes (%) (Auto) 12.1L, Monocytes (%) (Auto) 6.8, Eosinophils (%) (Auto) 4.6H, Basophils (%) (Auto) 0.6, Neutrophils # (Auto) 7.7, Lymphocytes # (Auto) 1.3L, Monocytes # (Auto) 0.7, Eosinophils # (Auto) 0.5, Basophils # (Auto) 0.1, Nucleated Red Blood Cells % (auto) 0.0, Anion Gap 8, Glomerular Filtration Rate 15.4L, Calcium Level 8.4L, Magnesium Level 2.0, Total Bilirubin 0.5, Aspartate Amino Transf (AST/SGOT) 12, Alanine Aminotransferase (ALT/SGPT) 11L, Alkaline Phosphatase 84, Total Protein 7.7, Albumin 2.1L, Albumin/Globulin Ratio 0.4 01/18/21 12:30: Bedside Glucose (Misc Panel) 187H CBC/BMP Laboratory Tests 01/18/21 09:00 LISA RANGEL MD Jan 18, 2021 16:39
--- NOTE | 2021-01-18 16:39 | IPNPDOC ---
Subjective CC/HPI The patient is a 75-year-old male admitted with a reason for visit of Dyspnea, Encephalopathy Acute, Weakness. Events since last encounter Pt was seen at bedside during HD. BP was low, he required NS bolus and O2 via nasal canula. Uf goal decreased. General: Reports: Fatigue, Malaise; Denies: Chills, Night Sweats Constitutional: Reports: Malaise; Denies: Chills, Fever Eyes: Denies: Pain ENT: Denies: Head Aches, Ear Pain Skin: Reports: Lesions Pulmonary: Denies: Dyspnea, Cough Cardiovascular: Denies: Chest Pain, Palpitations Gastrointestinal: Denies: Nausea, Vomiting Genitourinary: Denies: Dysuria Hematologic: Denies: Bruising Musculoskeletal: Denies: Neck Pain, Back Pain Neurological: Reports: Weakness Psych: Reports: Memory Issues Objective Physical Examination General Exam: Alert, Mild Distress (low BP) EYE EXAM: PERRLA, Conjunctiva & lids normal, EOMI ENT EXAM: Atraumatic, Mucous membr. moist/pink Neck Exam: Supple, Other; No: JVD Chest Exam: Clear to auscultation, Normal air movement Heart Exam: Rate Normal, Normal S1, Normal S2 ABDOMEN EXAM: Normal bowel sounds, Soft Extremity Exam: Other (Bilateral foot ulcers) Skin Exam: Nl turgor and temperature Neuro Exam: Other Psych Exam: Mental status NL Vital Signs/I&O Vital Signs Date Time Temp Pulse Resp B/P (MAP) Pulse Ox O2 Delivery O2 Flow Rate FiO2 01/18/21 06:00 97.8 99 18 161/84 (109) 96 Room Air 01/17/21 06:00 100.0 I&O- Last 24 Hours up to 6 AM 01/18/21 06:00 Intake Total 946 ml Output Total 800 ml Balance 146 ml Laboratory Data Labs 24H Laboratory Tests 2 01/17/21 16:42: Bedside Glucose (Misc Panel) 193H 01/17/21 21:13: Bedside Glucose (Misc Panel) 203H 01/18/21 08:20: Bedside Glucose (Misc Panel) 244H 01/18/21 09:00: Immature Granulocyte % (Auto) 0.9, Neutrophils (%) (Auto) 75.0H, Lymphocytes (%) (Auto) 12.1L, Monocytes (%) (Auto) 6.8, Eosinophils (%) (Auto) 4.6H, Basophils (%) (Auto) 0.6, Neutrophils # (Auto) 7.7, Lymphocytes # (Auto) 1.3L, Monocytes # (Auto) 0.7, Eosinophils # (Auto) 0.5, Basophils # (Auto) 0.1, Nucleated Red Blood Cells % (auto) 0.0, Anion Gap 8, Glomerular Filtration Rate 15.4L, Calcium Level 8.4L, Magnesium Level 2.0, Total Bilirubin 0.5, Aspartate Amino Transf (AST/SGOT) 12, Alanine Aminotransferase (ALT/SGPT) 11L, Alkaline Phosphatase 84, Total Protein 7.7, Albumin 2.1L, Albumin/Globulin Ratio 0.4 01/18/21 12:30: Bedside Glucose (Misc Panel) 187H 01/18/21 16:29: Bedside Glucose (Misc Panel) 132H CBC/BMP Laboratory Tests 01/18/21 09:00 FSBS Laboratory Tests Test 01/17/21 16:42 01/17/21 21:13 01/18/21 08:20 01/18/21 12:30 Range/Units Bedside Glucose (Misc Panel) 193 203 244 187 83-110 MG/DL Test 01/18/21 16:29 Range/Units Bedside Glucose (Misc Panel) 132 83-110 MG/DL Current Medications Current Medications Medications (Trade) Dose Ordered Sig/Jackelin Route PRN Reason Start Time Stop Time Status Last Admin Dose Admin Acetaminophen (Tylenol Tab) 650 mg Q4H PRN PO MILD PAIN or TEMP > 101 12/14/20 21:45 01/16/21 06:04 Acetaminophen/ Hydrocodone Bitart ([place], Anexsia 5/325) 1 tab Q6HP PRN PO MODERATE PAIN (PS 5-7) 12/18/20 14:50 12/25/20 10:38 DC 12/24/20 14:20 Al Hydrox/Mg Hydrox/Simethicone (Mylanta) 30 ml DAILY PRN PO DYSPEPSIA 12/14/20 21:45 01/18/21 05:58 Aspirin (Ecotrin) 81 mg DAILY PO 12/15/20 09:00 01/18/21 05:59 Cefdinir (Omnicef) 300 mg BID PO 12/22/20 21:00 12/22/20 17:12 DC Cefdinir (Omnicef) 300 mg TuThSa@1600 PO 12/31/20 16:00 01/05/21 23:59 DC 01/05/21 17:14 Ceftaroline Fosamil 200 mg/ Dextrose 50 ml @ 50 mls/hr Q12H IV 12/18/20 13:00 12/22/20 13:12 DC 12/22/20 01:27 Ceftriaxone Sodium 1 gm/ Dextrose 50 ml @ 100 mls/hr Q24H IV 12/29/20 13:00 12/30/20 12:36 DC 12/29/20 13:56 Collagenase (SantyL) apply nickel th... Q2D TOP 12/17/20 09:00 01/18/21 08:36 DC 01/14/21 08:00 Darbepoetin Jos (Aranesp (Dialysis Use)) 100 mcg HD IV 12/15/20 14:35 01/02/21 11:15 DC 12/29/20 09:59 Darbepoetin Jos (Aranesp (Dialysis Use)) 100 mcg HD IV 01/17/21 09:00 01/18/21 09:21 Dextrose (Dextrose 50%) 25 ml ASDIRECTED PRN IV SEE LABEL COMMENTS 12/15/20 00:40 Dimethicone (Vanicream Ointment) Apply to bilateral lo... DAILY TOP 12/20/20 09:00 01/18/21 06:08 Doxycycline Hyclate (Vibramycin) 100 mg BID PO 12/22/20 21:00 12/29/20 12:14 DC 12/29/20 06:07 Doxycycline Hyclate (Vibramycin) 100 mg BID PO 12/30/20 09:00 01/05/21 21:01 DC 01/05/21 20:27 Enoxaparin Sodium (Lovenox) 100 mg Q24H SC 01/17/21 09:00 01/18/21 05:59 Enoxaparin Sodium (Lovenox) 100 mg Q24H SC 01/10/21 13:00 01/14/21 23:59 DC 01/12/21 12:31 Glucagon (Glucagon) 1 mg ASDIRECTED PRN SC SEE LABEL COMMENTS 12/15/20 00:40 Glucose (Glucose) 16 GM ASDIRECTED PRN PO SEE LABEL COMMENTS 12/15/20 00:40 Heparin Sodium (Heparin) Please refer to ... ASDIRECTED XX 12/17/20 07:50 12/18/20 07:49 DC Heparin Sodium (Heparin) Please refer to ... ASDIRECTED XX 12/27/20 06:00 12/28/20 05:59 DC Heparin Sodium (Heparin) Please refer to ... ASDIRECTED XX 12/29/20 06:00 12/30/20 05:59 DC Heparin Sodium (Heparin) Please refer to ... ASDIRECTED XX 12/31/20 08:35 01/01/21 08:34 DC Heparin Sodium (Heparin) Please refer to ... ASDIRECTED XX 01/03/21 10:55 01/04/21 10:54 DC Heparin Sodium (Heparin) Please refer to ... ASDIRECTED XX 01/05/21 07:40 01/06/21 07:39 DC Heparin Sodium (Heparin) Please refer to ... ASDIRECTED XX 12/15/20 12:45 12/16/20 12:44 DC Heparin Sodium (Heparin) Please refer to ... ASDIRECTED XX 01/16/21 06:00 01/17/21 05:59 DC Heparin Sodium (Heparin) Please refer to ... ASDIRECTED XX 01/18/21 06:00 01/19/21 05:59 Heparin Sodium (Heparin) dose as per volume indica... ASDIRECTED PRN IV SEE LABEL COMMENTS 12/17/20 07:50 12/18/20 07:49 DC Heparin Sodium (Heparin) dose as per volume indica... ASDIRECTED PRN IV SEE LABEL COMMENTS 12/27/20 06:00 12/27/20 12:19 DC Heparin Sodium (Heparin) dose as per volume indica... ASDIRECTED PRN IV SEE LABEL COMMENTS 12/29/20 06:00 12/29/20 23:19 DC Heparin Sodium (Heparin) dose as per volume indica... ASDIRECTED PRN IV SEE LABEL COMMENTS 12/31/20 08:35 01/01/21 08:34 DC Heparin Sodium (Heparin) dose as per volume indica... ASDIRECTED PRN IV SEE LABEL COMMENTS 01/03/21 10:55 01/04/21 10:54 DC Heparin Sodium (Heparin) dose as per volume indica... ASDIRECTED PRN IV SEE LABEL COMMENTS 01/05/21 07:40 01/06/21 07:39 DC Heparin Sodium (Heparin) dose as per volume indica... ASDIRECTED PRN IV SEE LABEL COMMENTS 12/15/20 12:45 12/16/20 12:44 DC Heparin Sodium (Heparin) dose as per volume indica... ASDIRECTED PRN IV SEE LABEL COMMENTS 01/16/21 06:00 01/16/21 13:54 DC Heparin Sodium (Heparin) dose as per volume indica... ASDIRECTED PRN IV SEE LABEL COMMENTS 01/18/21 06:00 01/18/21 22:14 Home Med (Home Med List Complete!) ASDIRECTED XX 12/14/20 22:10 12/14/20 22:18 DC Hydromorphone HCl (Dilaudid) 1 mg Q6HP PRN PO MODERATE PAIN (PS 5-7) 12/25/20 10:40 01/16/21 12:50 Insulin Human Lispro (HumaLOG INSULIN) See Protocol Table AC SC 12/15/20 07:30 01/18/21 12:33 Insulin Human Lispro (HumaLOG INSULIN) See Protocol Table QHS SC 12/14/20 21:00 01/07/21 21:42 Iron (Venofer) 100 mg HD IV 12/17/20 13:35 12/31/20 11:34 DC 12/24/20 12:07 Lactic Acid (Lac-Hydrin 12% Lotion) APPLY TO FEET DAILY PRN TOP DRY SKIN 12/15/20 00:40 Lactulose (Cephulac) 30 ml Q6H PO 01/02/21 06:00 01/03/21 06:09 DC 01/02/21 23:47 Magnesium Hydroxide (Milk Of Magnesia) 30 ml DAILY PRN PO CONSTIPATION 12/14/20 21:45 01/03/21 16:49 DC 01/01/21 18:56 Metoprolol Tartrate (Lopressor) 50 mg BID PO 12/14/20 23:55 01/18/21 06:00 Miscellaneous (Unresolved Clarification Entry) SEE LABEL COMMENTS DAILY XX 12/21/20 09:00 12/22/20 07:31 DC 12/21/20 09:00 Nortriptyline HCl (Pamelor) 20 mg QHS PO 12/14/20 23:55 10/12/21 21:01 Ondansetron HCl (ZOFRAN INJection) 4 mg Q8HP PRN IV NAUSEA 12/21/20 13:35 01/18/21 15:22 DC 01/01/21 13:31 Pantoprazole Sodium (Protonix) 40 mg DAILY PO 12/15/20 09:00 01/18/21 06:00 Polyethylene Glycol (Miralax) 1 pkt QHS PO 12/14/20 21:00 01/17/21 21:05 Pregabalin (Lyrica) 25 mg BID PO 12/14/20 23:55 12/15/20 08:48 DC 12/15/20 08:26 Quetiapine Fumarate (SEROquel) 12.5 mg QHS PO 12/25/20 21:00 01/17/21 21:01 Senna/Docusate Sodium (Senokot S) 1 tab BID PO 01/07/21 16:15 Cancel Senna/Docusate Sodium (Senokot S) 2 tab BID PO 01/01/21 09:00 01/18/21 05:59 Sodium Chloride 1,000 ml @ 75 mls/hr [id number] IV 12/21/20 09:10 12/21/20 18:59 DC Sodium Chloride 1,000 ml @ 100 mls/hr Q10H IV 12/21/20 14:05 12/21/20 18:59 DC 12/21/20 14:14 Sodium Chloride (Nacl 0.9%) 200 ml ASDIRECTED PRN IV SEE LABEL COMMENTS 12/17/20 07:50 12/18/20 07:49 DC Sodium Chloride (Nacl 0.9%) 200 ml ASDIRECTED PRN IV SEE LABEL COMMENTS 01/03/21 10:55 01/04/21 10:54 DC Sodium Chloride (Nacl 0.9%) 200 ml ASDIRECTED PRN IV SEE LABEL COMMENTS 01/05/21 07:40 01/06/21 07:39 DC Sodium Chloride (Nacl 0.9%) 200 ml ASDIRECTED PRN IV SEE LABEL COMMENTS 12/15/20 12:45 12/16/20 12:44 DC Tamsulosin HCl (Flomax) 0.4 mg DAILY PO 12/31/20 09:00 01/11/21 22:15 DC 01/11/21 09:18 Tamsulosin HCl (Flomax) 0.8 mg DAILY@2100 PO 01/12/21 21:00 01/17/21 21:05 Trimethoprim/ Sulfamethoxazole (Bactrim Ds, Septra Ds 160mg/ 800mg) 1 tab DAILY@1600 PO 12/31/20 16:00 12/30/20 13:03 DC Vitamin B Complex/ Vit C/Folic Acid (Nephro-[facility]uan [facility] Rx) 1 tab DAILY PO 12/28/20 09:00 01/18/21 06:07 Warfarin Sodium (Coumadin) 2 mg Th@1700 PO 12/15/20 17:00 12/17/20 08:10 DC 12/15/20 17:50 Warfarin Sodium (Coumadin) 4 mg DAILY@17 PO 12/17/20 17:00 12/19/20 12:30 DC 12/18/20 17:16 Warfarin Sodium (Coumadin) 4 mg DAILY@17 PO 12/22/20 17:00 01/10/21 11:37 DC 01/08/21 18:10 Warfarin Sodium (Coumadin) 4 mg SuMoTuWeFrSa@1700 PO 12/16/20 17:00 12/17/20 08:10 DC 12/16/20 18:35 Allergies Coded Allergies: [place] (Verified Allergy, Severe, ANAPHYLAXIS, 11/09/14) Penicillins (Verified Allergy, Severe, Anaphylaxis, 02/17/20) HAS RECEIVED 2nd & 3RD GEN CEPHALOSPORINS w/o PROBLEM metformin (Verified Allergy, Severe, Tongue swelling, 07/02/18) tramadol (Verified Allergy, Unknown, 12/18/20) Kjshaan-Szp-Ngc Reductase Inhibitor (Verified Adverse Reaction, Intermediate, Altered Mental Status, 07/02/18) codeine (Verified Adverse Reaction, Mild, "out of it". , 02/17/20) mixed with guifenasin duloxetine (Unverified Adverse Reaction, Mild, Nausea and vomiting, 07/02/18) clindamycin (Verified Adverse Reaction, Unknown, DIARRHEA, 02/29/20) Assessment/Plan Date Seen The patient was seen on 01/18/21 in AM during HD. Plan / VTE VTE Prophylaxis Ordered?: Yes Plan Orders past 48 Hours Orders Groin Check (01/16/21 17:41) Bedrest (01/16/21 17:41) Advance Diet As Tolerated (01/16/21 17:41) Vital Signs Freq & Parameters (01/16/21 ) Arrange Follow Up With: (01/16/21 17:41) Enoxaparin (Lovenox) (01/17/21 09:00) Mechanical Soft Diet (01/16/21 Dinner) Fingerstick Blood Sugar (01/16/21 18:30) C Reactive Protein Quantitativ (01/17/21 06:00) Fingerstick Blood Sugar (01/16/21 20:44) Darbepoetin (Aranesp (Dialysis Use)) (01/17/21 09:00) Fingerstick Blood Sugar (01/17/21 05:53) Fingerstick Blood Sugar (01/17/21 11:13) Fingerstick Blood Sugar (01/17/21 16:42) Fingerstick Blood Sugar (01/17/21 21:13) Hemodialysis Acute Orders (01/18/21 06:00) Heparin (Heparin) (01/18/21 06:00) Heparin (Heparin) (01/18/21 06:00) Early Tray (01/18/21 07:00) Catheter - Urinary Straight (01/18/21 05:41) Cbc With Differential (01/18/21 07:59) Complete Comphrensive Metaboli (01/18/21 07:59) Magnesium Level (01/18/21 07:59) Fingerstick Blood Sugar (01/18/21 08:20) Fingerstick Blood Sugar (01/18/21 12:30) Fingerstick Blood Sugar (01/18/21 16:29) Plan Text 1. Endstage renal disease. Hypotensive during HD. UF goal decreased. 2. Anemia: Started aranesp with HD. 3. Peripheral vascular disease with ulcers on both lower extremities. Patient has ischemic ulcers with significant peripheral vascular disease. He is being followed by Dr. Tafoya for angioplasties. 4. Deconditioning and weakness. Patient is very weak and mostly bed-bound. Currently ALC status. DILIA SCHROEDER MD Jan 18, 2021 16:39
[2021-01-18] MEDS: MIRALAX *UNIT DOSE* 17GM PACKET PO SCH (19:56)
[2021-01-18] MEDS: HYDROmorphone 2 MG TAB PO PRN (19:56)
[2021-01-18] MEDS: QUEtiapine FUMARATE 12.5 MG HALF-TAB PO SCH (19:57)
[2021-01-18] MEDS: TAMSULOSIN 0.4 MG CAP PO SCH (19:57)
[2021-01-18] MEDS: NORTRIPTYLINE 10 MG CAP PO SCH (19:57)
[2021-01-18 22:00] VITALS: BP 160/84
[2021-01-19 06:00] VITALS: BP 124/70
[2021-01-19 08:30] VITALS: BP 130/72
[2021-01-19] MEDS: ASPIRIN 81MG ENTERIC TABLET PO SCH (08:33)
[2021-01-19] MEDS: SENOKOT S TAB PO SCH ×2 (08:33→20:14)
[2021-01-19] MEDS: PANTOPRAZOLE 40MG TAB (PROTONIX) PO SCH (08:33)
[2021-01-19] MEDS: NEPHRO-VIT TAB (NEPHROCAPS) PO SCH (08:34)
[2021-01-19] MEDS: ENOXAPARIN 100MG/1ML SYRINGE (J1650 PER 10MG) SC SCH (08:34)
[2021-01-19] MEDS: HumaLOG INSULIN (NovoLOG) PER UNIT SC SCH ×4 (08:34→21:00)
[2021-01-19] MEDS: METOPROLOL TART 50 MG TAB PO SCH ×2 (08:34→20:15)
[2021-01-19] MEDS: DIMETHICONE 2% OINTMENT(VANICREAM) 70GM TUBE TOP SCH (08:39)
[2021-01-19] MEDS: NORTRIPTYLINE 10 MG CAP PO SCH (20:14)
[2021-01-19] MEDS: TAMSULOSIN 0.4 MG CAP PO SCH (20:14)
[2021-01-19] MEDS: QUEtiapine FUMARATE 12.5 MG HALF-TAB PO SCH (20:15)
[2021-01-19] MEDS: MIRALAX *UNIT DOSE* 17GM PACKET PO SCH (20:15)
[2021-01-19] MEDS: HYDROmorphone 2 MG TAB PO PRN (20:16)
[2021-01-19 22:00] VITALS: BP 145/78
[2021-01-20 05:16] VITALS: BP 106/66
[2021-01-20] MEDS: SENOKOT S TAB PO SCH ×2 (06:02→20:36)
[2021-01-20] MEDS: MAALOX 30 ML SUSP *UDC PO PRN (06:02)
[2021-01-20] MEDS: ENOXAPARIN 100MG/1ML SYRINGE (J1650 PER 10MG) SC SCH (06:02)
[2021-01-20] MEDS: ASPIRIN 81MG ENTERIC TABLET PO SCH (06:02)
[2021-01-20] MEDS: NEPHRO-VIT TAB (NEPHROCAPS) PO SCH (06:02)
[2021-01-20] MEDS: PANTOPRAZOLE 40MG TAB (PROTONIX) PO SCH (06:02)
[2021-01-20] MEDS: DIMETHICONE 2% OINTMENT(VANICREAM) 70GM TUBE TOP SCH (06:03)
[2021-01-20] MEDS: HumaLOG INSULIN (NovoLOG) PER UNIT SC SCH ×4 (08:50→20:23)
[2021-01-20] MEDS: METOPROLOL TART 50 MG TAB PO SCH ×2 (09:00→20:36)
--- NOTE | 2021-01-20 12:53 | IPNPDOC ---
Subjective CC/HPI The patient is a 75-year-old male admitted with a reason for visit of Dyspnea, Encephalopathy Acute, Weakness. Events since last encounter Pt seen at bedside. AAOx3. No distress. General: Denies: Chills, Night Sweats Constitutional: Denies: Chills, Fever Eyes: Denies: Pain, Vision change ENT: Denies: Head Aches, Ear Pain Skin: Reports: Lesions Pulmonary: Denies: Dyspnea, Cough Cardiovascular: Denies: Chest Pain, Palpitations Gastrointestinal: Denies: Nausea, Vomiting Genitourinary: Denies: Dysuria, Frequency Hematologic: Denies: Bruising Musculoskeletal: Denies: Neck Pain, Back Pain Neurological: Reports: Weakness Psych: Reports: Memory Issues Objective Physical Examination General Exam: Alert, No Acute Distress EYE EXAM: PERRLA, Conjunctiva & lids normal, EOMI ENT EXAM: Atraumatic, Mucous membr. moist/pink Neck Exam: Supple, Other; No: JVD Chest Exam: Clear to auscultation, Normal air movement Heart Exam: Rate Normal, Normal S1, Normal S2 ABDOMEN EXAM: Normal bowel sounds, Soft Extremity Exam: Other (Bilateral foot ulcers) Skin Exam: Nl turgor and temperature Neuro Exam: Other Psych Exam: Mental status NL Vital Signs/I&O Vital Signs Date Time Temp Pulse Resp B/P (MAP) Pulse Ox O2 Delivery O2 Flow Rate FiO2 01/20/21 09:00 98/58 01/20/21 05:16 98.2 86 18 93 Room Air 01/17/21 06:00 100.0 I&O- Last 24 Hours up to 6 AM 01/20/21 05:59 Intake Total 1060 ml Output Total 0 ml Balance 1060 ml Laboratory Data Labs 24H Laboratory Tests 2 01/19/21 16:45: Bedside Glucose (Misc Panel) 193H 01/19/21 19:33: Bedside Glucose (Misc Panel) 213H 01/20/21 06:42: Bedside Glucose (Misc Panel) 189H 01/20/21 11:43: Bedside Glucose (Misc Panel) 342H FSBS Laboratory Tests Test 01/19/21 16:45 01/19/21 19:33 01/20/21 06:42 01/20/21 11:43 Range/Units Bedside Glucose (Misc Panel) 193 213 189 342 83-110 MG/DL Current Medications Current Medications Medications (Trade) Dose Ordered Sig/Jackelin Route PRN Reason Start Time Stop Time Status Last Admin Dose Admin Acetaminophen (Tylenol Tab) 650 mg Q4H PRN PO MILD PAIN or TEMP > 101 12/14/20 21:45 01/16/21 06:04 Acetaminophen/ Hydrocodone Bitart ([place], Anexsia 5/325) 1 tab Q6HP PRN PO MODERATE PAIN (PS 5-7) 12/18/20 14:50 12/25/20 10:38 DC 12/24/20 14:20 Al Hydrox/Mg Hydrox/Simethicone (Mylanta) 30 ml DAILY PRN PO DYSPEPSIA 12/14/20 21:45 01/20/21 06:02 Aspirin (Ecotrin) 81 mg DAILY PO 12/15/20 09:00 01/20/21 06:02 Cefdinir (Omnicef) 300 mg BID PO 12/22/20 21:00 12/22/20 17:12 DC Cefdinir (Omnicef) 300 mg TuThSa@1600 PO 12/31/20 16:00 01/05/21 23:59 DC 01/05/21 17:14 Ceftaroline Fosamil 200 mg/ Dextrose 50 ml @ 50 mls/hr Q12H IV 12/18/20 13:00 12/22/20 13:12 DC 12/22/20 01:27 Ceftriaxone Sodium 1 gm/ Dextrose 50 ml @ 100 mls/hr Q24H IV 12/29/20 13:00 12/30/20 12:36 DC 12/29/20 13:56 Collagenase (SantyL) apply nickel th... Q2D TOP 12/17/20 09:00 01/18/21 08:36 DC 01/14/21 08:00 Darbepoetin Jos (Aranesp (Dialysis Use)) 100 mcg HD IV 12/15/20 14:35 01/02/21 11:15 DC 12/29/20 09:59 Darbepoetin Jos (Aranesp (Dialysis Use)) 100 mcg HD IV 01/17/21 09:00 01/18/21 09:21 Dextrose (Dextrose 50%) 25 ml ASDIRECTED PRN IV SEE LABEL COMMENTS 12/15/20 00:40 Dimethicone (Vanicream Ointment) Apply to bilateral lo... DAILY TOP 12/20/20 09:00 01/20/21 06:03 Doxycycline Hyclate (Vibramycin) 100 mg BID PO 12/22/20 21:00 12/29/20 12:14 DC 12/29/20 06:07 Doxycycline Hyclate (Vibramycin) 100 mg BID PO 12/30/20 09:00 01/05/21 21:01 DC 01/05/21 20:27 Enoxaparin Sodium (Lovenox) 100 mg Q24H SC 01/17/21 09:00 01/20/21 06:02 Enoxaparin Sodium (Lovenox) 100 mg Q24H SC 01/10/21 13:00 01/14/21 23:59 DC 01/12/21 12:31 Glucagon (Glucagon) 1 mg ASDIRECTED PRN SC SEE LABEL COMMENTS 12/15/20 00:40 Glucose (Glucose) 16 GM ASDIRECTED PRN PO SEE LABEL COMMENTS 12/15/20 00:40 Heparin Sodium (Heparin) Please refer to ... ASDIRECTED XX 12/17/20 07:50 12/18/20 07:49 DC Heparin Sodium (Heparin) Please refer to ... ASDIRECTED XX 12/27/20 06:00 12/28/20 05:59 DC Heparin Sodium (Heparin) Please refer to ... ASDIRECTED XX 12/29/20 06:00 12/30/20 05:59 DC Heparin Sodium (Heparin) Please refer to ... ASDIRECTED XX 12/31/20 08:35 01/01/21 08:34 DC Heparin Sodium (Heparin) Please refer to ... ASDIRECTED XX 01/03/21 10:55 01/04/21 10:54 DC Heparin Sodium (Heparin) Please refer to ... ASDIRECTED XX 01/05/21 07:40 01/06/21 07:39 DC Heparin Sodium (Heparin) Please refer to ... ASDIRECTED XX 12/15/20 12:45 12/16/20 12:44 DC Heparin Sodium (Heparin) Please refer to ... ASDIRECTED XX 01/16/21 06:00 01/17/21 05:59 DC Heparin Sodium (Heparin) Please refer to ... ASDIRECTED XX 01/18/21 06:00 01/19/21 05:59 DC Heparin Sodium (Heparin) dose as per volume indica... ASDIRECTED PRN IV SEE LABEL COMMENTS 12/17/20 07:50 12/18/20 07:49 DC Heparin Sodium (Heparin) dose as per volume indica... ASDIRECTED PRN IV SEE LABEL COMMENTS 12/27/20 06:00 12/27/20 12:19 DC Heparin Sodium (Heparin) dose as per volume indica... ASDIRECTED PRN IV SEE LABEL COMMENTS 12/29/20 06:00 12/29/20 23:19 DC Heparin Sodium (Heparin) dose as per volume indica... ASDIRECTED PRN IV SEE LABEL COMMENTS 12/31/20 08:35 01/01/21 08:34 DC Heparin Sodium (Heparin) dose as per volume indica... ASDIRECTED PRN IV SEE LABEL COMMENTS 01/03/21 10:55 01/04/21 10:54 DC Heparin Sodium (Heparin) dose as per volume indica... ASDIRECTED PRN IV SEE LABEL COMMENTS 01/05/21 07:40 01/06/21 07:39 DC Heparin Sodium (Heparin) dose as per volume indica... ASDIRECTED PRN IV SEE LABEL COMMENTS 12/15/20 12:45 12/16/20 12:44 DC Heparin Sodium (Heparin) dose as per volume indica... ASDIRECTED PRN IV SEE LABEL COMMENTS 01/16/21 06:00 01/16/21 13:54 DC Heparin Sodium (Heparin) dose as per volume indica... ASDIRECTED PRN IV SEE LABEL COMMENTS 01/18/21 06:00 01/18/21 22:14 DC Home Med (Home Med List Complete!) ASDIRECTED XX 12/14/20 22:10 12/14/20 22:18 DC Hydromorphone HCl (Dilaudid) 1 mg Q6HP PRN PO MODERATE PAIN (PS 5-7) 12/25/20 10:40 01/19/21 20:16 Insulin Human Lispro (HumaLOG INSULIN) See Protocol Table AC SC 12/15/20 07:30 01/20/21 12:08 Insulin Human Lispro (HumaLOG INSULIN) See Protocol Table QHS SC 12/14/20 21:00 01/07/21 21:42 Iron (Venofer) 100 mg HD IV 12/17/20 13:35 12/31/20 11:34 DC 12/24/20 12:07 Lactic Acid (Lac-Hydrin 12% Lotion) APPLY TO FEET DAILY PRN TOP DRY SKIN 12/15/20 00:40 Lactulose (Cephulac) 30 ml Q6H PO 01/02/21 06:00 01/03/21 06:09 DC 01/02/21 23:47 Magnesium Hydroxide (Milk Of Magnesia) 30 ml DAILY PRN PO CONSTIPATION 12/14/20 21:45 01/03/21 16:49 DC 01/01/21 18:56 Metoprolol Tartrate (Lopressor) 50 mg BID PO 12/14/20 23:55 01/19/21 20:15 Miscellaneous (Unresolved Clarification Entry) SEE LABEL COMMENTS DAILY XX 12/21/20 09:00 12/22/20 07:31 DC 12/21/20 09:00 Nortriptyline HCl (Pamelor) 20 mg QHS PO 12/14/20 23:55 01/19/21 20:14 Ondansetron HCl (ZOFRAN INJection) 4 mg Q8HP PRN IV NAUSEA 12/21/20 13:35 01/18/21 15:22 DC 01/01/21 13:31 Pantoprazole Sodium (Protonix) 40 mg DAILY PO 12/15/20 09:00 01/20/21 06:02 Polyethylene Glycol (Miralax) 1 pkt QHS PO 12/14/20 21:00 01/19/21 20:15 Pregabalin (Lyrica) 25 mg BID PO 12/14/20 23:55 12/15/20 08:48 DC 12/15/20 08:26 Quetiapine Fumarate (SEROquel) 12.5 mg QHS PO 12/25/20 21:00 01/19/21 20:15 Senna/Docusate Sodium (Senokot S) 1 tab BID PO 01/07/21 16:15 Cancel Senna/Docusate Sodium (Senokot S) 2 tab BID PO 01/01/21 09:00 01/20/21 06:02 Sodium Chloride 1,000 ml @ 75 mls/hr [id number] IV 12/21/20 09:10 12/21/20 18:59 DC Sodium Chloride 1,000 ml @ 100 mls/hr Q10H IV 12/21/20 14:05 12/21/20 18:59 DC 12/21/20 14:14 Sodium Chloride (Nacl 0.9%) 200 ml ASDIRECTED PRN IV SEE LABEL COMMENTS 12/17/20 07:50 12/18/20 07:49 DC Sodium Chloride (Nacl 0.9%) 200 ml ASDIRECTED PRN IV SEE LABEL COMMENTS 01/03/21 10:55 01/04/21 10:54 DC Sodium Chloride (Nacl 0.9%) 200 ml ASDIRECTED PRN IV SEE LABEL COMMENTS 01/05/21 07:40 01/06/21 07:39 DC Sodium Chloride (Nacl 0.9%) 200 ml ASDIRECTED PRN IV SEE LABEL COMMENTS 12/15/20 12:45 12/16/20 12:44 DC Tamsulosin HCl (Flomax) 0.4 mg DAILY PO 12/31/20 09:00 01/11/21 22:15 DC 01/11/21 09:18 Tamsulosin HCl (Flomax) 0.8 mg DAILY@2100 PO 01/12/21 21:00 01/19/21 20:14 Trimethoprim/ Sulfamethoxazole (Bactrim Ds, Septra Ds 160mg/ 800mg) 1 tab DAILY@1600 PO 12/31/20 16:00 12/30/20 13:03 DC Vitamin B Complex/ Vit C/Folic Acid (Nephro-Juan Luis Rx) 1 tab DAILY PO 12/28/20 09:00 01/20/21 06:02 Warfarin Sodium (Coumadin) 2 mg Th@1700 PO 12/15/20 17:00 12/17/20 08:10 DC 12/15/20 17:50 Warfarin Sodium (Coumadin) 4 mg DAILY@17 PO 12/17/20 17:00 12/19/20 12:30 DC 12/18/20 17:16 Warfarin Sodium (Coumadin) 4 mg DAILY@17 PO 12/22/20 17:00 01/10/21 11:37 DC 01/08/21 18:10 Warfarin Sodium (Coumadin) 4 mg SuMoTuWeFrSa@1700 PO 12/16/20 17:00 12/17/20 08:10 DC 12/16/20 18:35 Allergies Coded Allergies: [place] (Verified Allergy, Severe, ANAPHYLAXIS, 8/4/15) Penicillins (Verified Allergy, Severe, Anaphylaxis, 02/17/20) HAS RECEIVED 2nd & 3RD GEN CEPHALOSPORINS w/o PROBLEM metformin (Verified Allergy, Severe, Tongue swelling, 07/02/18) tramadol (Verified Allergy, Unknown, 12/18/20) [id number] Reductase Inhibitor (Verified Adverse Reaction, Intermediate, Altered Mental Status, 07/02/18) codeine (Verified Adverse Reaction, Mild, "out of it". , 02/17/20) mixed with guifenasin duloxetine (Unverified Adverse Reaction, Mild, Nausea and vomiting, 06/07 10/24) clindamycin (Verified Adverse Reaction, Unknown, DIARRHEA, 02/29/20) Assessment/Plan Date Seen The patient was seen on 01/20/21 at bedside in AM. Plan / VTE VTE Prophylaxis Ordered?: Yes Plan Orders past 48 Hours Orders Fingerstick Blood Sugar (01/18/21 16:29) Fingerstick Blood Sugar (01/18/21 19:50) Fingerstick Blood Sugar (01/19/21 05:57) Fingerstick Blood Sugar (01/19/21 11:34) Pt Eval & Tx As Needed (01/19/21 15:39) Ot Eval & Treat As Needed (01/19/21 15:39) Fingerstick Blood Sugar (01/19/21 16:45) Fingerstick Blood Sugar (01/19/21 19:33) Early Tray (01/20/21 07:00) Fingerstick Blood Sugar (01/20/21 06:42) Cbc With Differential (01/21/21 06:00) Renal Profile (01/21/21 06:00) Fingerstick Blood Sugar (01/20/21 11:43) Plan Text 1. Endstage renal disease. Stable labs and volume status. HD will be done tomorrow 2. Anemia: Aranesp with HD. 3. Peripheral vascular disease with ulcers on both lower extremities. Patient has ischemic ulcers with significant peripheral vascular disease. s/p angioplasties. 4. Deconditioning and weakness. Patient is very weak and mostly bed-bound. Currently ALC status. 5. BPH and urinary retention: Cont Flomax. Straight cath DILIA MCARTHUR MD Jan 20, 2021 12:53
[2021-01-20] MEDS: HYDROmorphone 2 MG TAB PO PRN (16:54)
[2021-01-20] MEDS: NORTRIPTYLINE 10 MG CAP PO SCH (20:36)
[2021-01-20] MEDS: QUEtiapine FUMARATE 12.5 MG HALF-TAB PO SCH (20:36)
[2021-01-20] MEDS: TAMSULOSIN 0.4 MG CAP PO SCH (20:36)
[2021-01-20] MEDS: MIRALAX *UNIT DOSE* 17GM PACKET PO SCH (20:36)
[2021-01-21 06:00] VITALS: BP 136/75
[2021-01-21] MEDS: SENOKOT S TAB PO SCH ×2 (06:16→20:55)
[2021-01-21] MEDS: ENOXAPARIN 100MG/1ML SYRINGE (J1650 PER 10MG) SC SCH (06:17)
[2021-01-21] MEDS: ASPIRIN 81MG ENTERIC TABLET PO SCH (06:17)
[2021-01-21] MEDS: PANTOPRAZOLE 40MG TAB (PROTONIX) PO SCH (06:17)
[2021-01-21] MEDS: NEPHRO-VIT TAB (NEPHROCAPS) PO SCH (06:17)
[2021-01-21] MEDS: METOPROLOL TART 50 MG TAB PO SCH ×2 (06:18→20:57)
[2021-01-21 07:27] LABS: BASO # 0.1 10^3/uL (0.0-0.2); BASO % 0.6 % (0.0-1.0); EOS # 0.6 10^3/uL (0.0-0.5); EOS % 5.6 % (0.0-3.0); HEMATOCRIT 29.1 % (42.0-52.0); HEMOGLOBIN 9.3 g/dl (13.5-17.5); LYMPH # 1.3 10^3/uL (1.5-5.0); LYMPH % 12.8 % (24.0-44.0); MEAN CORPUSCULAR HEMOGLOBIN 33.2 pg (27.0-33.0); MEAN CORPUSCULAR VOLUME 103.9 fl (80.0-96.0); MONO # 0.9 10^3/uL (0.0-0.8); MONO % 8.7 % (2.0-8.0); NEUTROPHILS # 7.2 10^3/uL (1.5-8.5); NEUTROPHILS % 71.3 % (36.0-66.0); PLATELET COUNT, AUTOMATED 185 10^3/uL (150-450); WHITE BLOOD COUNT 10.1 10^3/uL (4.0-10.0)
[2021-01-21 07:50] LABS: ALBUMIN 2.1 GM/DL (3.2-5.2); CALCIUM LEVEL 8.4 MG/DL (8.8-10.2); CREATININE FOR GFR 3.08 MG/DL (0.70-1.30); GLOMERULAR FILTRATION RATE 21.2 (>42); PHOSPHORUS LEVEL 2.3 MG/DL (2.5-4.9); POTASSIUM SERUM 4.7 MEQ/L (3.5-5.1)
[2021-01-21] MEDS: HumaLOG INSULIN (NovoLOG) PER UNIT SC SCH ×4 (08:12→20:19)
[2021-01-21] MEDS: HYDROmorphone 2 MG TAB PO PRN ×2 (08:17→16:36)
--- NOTE | 2021-01-21 13:47 | IPN ---
NEPHROLOGY PROGRESS NOTE DATE: 01/21/2021 SUBJECTIVE: Mr. Pabon was seen and examined during his hemodialysis treatment this morning. He reports no complaints. Reports the pain is adequately controlled. He tells me he plans on sleeping through his dialysis treatment and reports no issues with oral intake. His dialysis today was uneventful. OBJECTIVE: VITAL SIGNS: Temperature 98.1, pulse 92, respiratory rate 16, blood pressure 136/75, saturating 96% on room air. INTAKE AND OUTPUT: Intake yesterday was 1.5 liters. Dialysis today removed 1.5 liters. Weight in the bed scale today is not recorded. GENERAL: Patient is seen lying in bed, awake, alert, receiving his dialysis treatment in no distress. HEENT: Extraocular muscles are intact. Tongue is moist. NECK: Supple. Tunneled hemodialysis catheter is in use. Jugular veins are not elevated. HEART SOUNDS: Regular. S1, S2. There is no peripheral edema. LUNGS: Show symmetric air entry. No crackle or rale. ABDOMEN: Soft and nontender. EXTREMITIES: Dressings on his wounds on his lower extremities. There is no peripheral edema. NEUROLOGIC: He is oriented to person and place. He cooperates with physical exam and answers questions appropriately. He has a very hoarse and soft voice. LABORATORY STUDIES: White count 10.1, hemoglobin 9.3, platelets 185. Sodium 135, potassium 4.7, bicarbonate 23, phosphorus 2.3. INPATIENT MEDICATIONS: Reviewed by myself and no changes noted over the past several days. PROBLEMS: 1. End-stage renal disease on hemodialysis on a Saturday, , Saturday schedule. Stable labs and volume status. He was dialyzed today with 1.5 liters fluid removed. His next dialysis will be on Saturday. His labs are intermittently checked. 2. Anemia of chronic renal failure. Hemoglobin is 9.3 on the latest labs. He continues on Aranesp with dialysis with goal hemoglobin 10-11. He did receive several doses of iron early on in this admission. He did not require any blood transfusions on this admission. 3. Benign prostatic hypertrophy (BPH) and urinary retention. He continues on Flomax. Most recent postvoid residual bladder scan was 500 mL. He oftentimes refuses straight catheterization and I have discussed straight catheterization with him previously. 4. Hypertension. Patient is on Lopressor 50 mg by mouth twice daily and blood pressures are satisfactorily controlled. He tolerates hemodialysis with fluid removal. 5. Peripheral vascular disease with ulcers on his bilateral lower extremities, which are ischemic and status post angioplasty. He continues with local wound care, aspirin. He is intolerant of statins. He reports pain is controlled. 6. Deconditioning, weakness and history of altered mentation. Patient remains very weak and bed-bound and is on alternate level of care (ALC) status and is seen on dialysis days only. Also does have underlying Lewy body dementia. 7. Chronic diastolic congestive heart failure. Volume status regulated by hemodialysis and is compensated at present.
[2021-01-21] MEDS: DIMETHICONE 2% OINTMENT(VANICREAM) 70GM TUBE TOP SCH (15:20)
--- NOTE | 2021-01-21 18:28 | IPNPDOC ---
Date Seen The patient was seen on 01/21/21. Progress Note SUBJECTIVE: patient is seen and examined at bedside. No acute events overnight. AAO x 3. Reports mild foot pain. No chest pain, no SOB, no palpitations, no subjective fevers/chills. OBJECTIVE PHYSICAL EXAMINATION: VITAL SIGNS: please see below General: NAD, comfortable HEENT: PERRLA, EOMI, sclerae clear Neck: supple, normal ROM, no JVD Respiratory: lungs CTAB, no wheeze, no rales, no crackles CVS: RRR, normal S1, S2, no murmurs Abdo: soft, no masses, no hepatosplenomegaly, BS+, no rebound tenderness Extremities: examined feet, L foot: toes 1, 3,4,5 exhibit dry gangrene, skin erythema extending upwards toward ankle. no purulence, no sharp demarcation of erythema. MSK: no joint deformities, normal ROM Neuro: no focal neuro deficits, moving all 4 extremities, CN2-12 intact. Strength 5/5 in all 4 extremities. No nystagmus. Psych: calm, cooperative, AAO x 3 LABORATORY DATA, IMAGING STUDIES, MICROBIOLOGY: Please see below. DVT prophylaxis ordered?: on therapeutic lovenox ASSESSMENT AND PLAN: Mhx of Lewy Body Dementia, CAD s/p CABG, s/p TAVR (on Warfarin), HTN, Diastolic CHF / Pulmonary HTN, SIDNEY, DM2, ESRD on HD, Hx of CVA, Hx of PAD, who presented one day after discharge from acute rehabilitation with confusion and reported shortness of breath. Patient was admitted to hospital service for further evaluation and treatment. Patient's confusion had improved relatively quickly and patient was taken for an angioplasty of his RLE with Dr. Tafoya on 12/21. S/p additional angioplasty of LLE on 01/16/21. RLE with ulceration of medial aspect of leg and LLE with ulceration of toes - Patient denies any significant pain of his feet - Remains hemodynamically stable and afebrile - s/p Angioplasty on 12/21 of RLE peroneal artery with Dr. Tafoya - WBC / CRP count remain elevated but stable - Blood cultures 12/15 and 12/22: No growth at 5 days - Wound culture 12/22: E. Coli / Corynebacterium Species - PCT of 2.74 - s/p Cefdinir and Doxycycline (Completed 7 day course) - c/w Dressing changes as ordered - c/w ASA and Coumadin - c/w Pain control - Dr. Tafoya, Dr. Lo, Dr. Mcclure and Dr. Cevallos on consultation; appreciate their input - Reconsulted Dr. Lo and Dr. Tafoya - Dr. Tafoya performed dditional angioplasty on Saturday01/17/21 - successful angioplasty of distal superficial femoral artery and popliteal artery with improved flow. Unsuccessful attempt at anteraiol tibial and posterior tibial artery recanalization. - presently on lovenox, d/w Dr. Tafoya re any additional procedures. Able to resume warfarin - D/w Dr. Lo, asked to re-examine feet. - will defer starting warfarin until podiatry re-eval. Possiblity for BKA. ESRD on HD (TTS) - Nephrology consulted; appreciate their input s/p Urinary retention - intermittent retention - on flomax - bladder scan q6h - patient has been refusing straight cath Delirium on dementia in the setting of Lewy Body Dementia - Does not appear to be delirious this morning, conversing appropriately - Imaging negative - Case was initially discussed with Neurology; Had recommended starting Ser oquel; will c/w Seroquel QHS Chronic diastolic congestive heart failure - No evidence of exacerbation / appears euvolemic HTN - BP remains well controlled - c/w Metoprolol Peripheral artery disease - See above Aortic stenosis s/p TAVR - presently on AC with lovenox (Warfarin was held due to IR angiography/angioplasty to LLE)> DM2 - c/w ISS Mood disorder - c/w Nortriptyline GI prophylaxis - c/w Protonix DVT prophylaxis - c/w full anticoagulation with Lovenox; s/p Warfarin Code status: - Full code Disposition: - Awaiting clinical improvement VS, I&O, 24H, Fishbone Vital Signs/I&O Vital Signs Date Time Temp Pulse Resp B/P (MAP) Pulse Ox O2 Delivery O2 Flow Rate FiO2 01/21/21 17:06 16 01/21/21 06:18 92 136/75 01/21/21 06:00 98.1 96 Room Air 01/17/21 06:00 100.0 I&O- Last 24 Hours up to 6 AM 01/21/21 06:00 Intake Total 1260 ml Output Total 675 ml Balance 585 ml Laboratory Data 24H LABS Laboratory Tests 2 01/20/21 19:52: Bedside Glucose (Misc Panel) 201H 01/21/21 07:05: Immature Granulocyte % (Auto) 1.0, Neutrophils (%) (Auto) 71.3H, Lymphocytes (%) (Auto) 12.8L, Monocytes (%) (Auto) 8.7H, Eosinophils (%) (Auto) 5.6H, Basophils (%) (Auto) 0.6, Neutrophils # (Auto) 7.2, Lymphocytes # (Auto) 1.3L, Monocytes # (Auto) 0.9H, Eosinophils # (Auto) 0.6H, Basophils # (Auto) 0.1, Nucleated Red Blood Cells % (auto) 0.0, Anion Gap 7L, Glomerular Filtration Rate 21.2L, Calcium Level 8.4L, Phosphorus Level 2.3L, Albumin 2.1L 01/21/21 07:14: Bedside Glucose (Misc Panel) 209H 01/21/21 12:19: Bedside Glucose (Misc Panel) 226H 01/21/21 16:56: Bedside Glucose (Misc Panel) 252H CBC/BMP Laboratory Tests 01/21/21 07:05 LISA RANGEL MD Jan 21, 2021 18:28
[2021-01-21] MEDS: QUEtiapine FUMARATE 12.5 MG HALF-TAB PO SCH (20:55)
[2021-01-21] MEDS: MIRALAX *UNIT DOSE* 17GM PACKET PO SCH (20:55)
[2021-01-21] MEDS: NORTRIPTYLINE 10 MG CAP PO SCH (20:55)
[2021-01-21] MEDS: TAMSULOSIN 0.4 MG CAP PO SCH (20:56)
[2021-01-21 22:00] VITALS: BP 110/55
[2021-01-22 06:00] VITALS: BP 135/73
[2021-01-22] MEDS: HumaLOG INSULIN (NovoLOG) PER UNIT SC SCH ×4 (08:55→21:17)
[2021-01-22] MEDS: ENOXAPARIN 100MG/1ML SYRINGE (J1650 PER 10MG) SC SCH (08:55)
[2021-01-22] MEDS: SENOKOT S TAB PO SCH ×2 (08:55→21:01)
[2021-01-22] MEDS: ASPIRIN 81MG ENTERIC TABLET PO SCH (08:56)
[2021-01-22] MEDS: METOPROLOL TART 50 MG TAB PO SCH ×2 (08:56→21:01)
[2021-01-22] MEDS: PANTOPRAZOLE 40MG TAB (PROTONIX) PO SCH (08:56)
[2021-01-22] MEDS: NEPHRO-VIT TAB (NEPHROCAPS) PO SCH (08:56)
[2021-01-22] MEDS: DIMETHICONE 2% OINTMENT(VANICREAM) 70GM TUBE TOP SCH (08:57)
--- NOTE | 2021-01-22 12:06 | IPN ---
PROGRESS NOTE DATE: 01/21/2021 TIME: Approximately 10:45 p.m. CHIEF COMPLAINT: Patient seen today for evaluation of ulcerations on both feet. Patient states his left foot is extremely painful. He has been treated with foam dressings and an offloading halo to keep the weight off his heels. The patient's pedal pulses are not palpable. The patient states he has difficulty walking and states he also gets dizzy and it makes it difficult for him to walk. He is seen by bedside for evaluation. Evaluation of his left foot reveals mummification of the fifth toe. The other toes are necrotic but no discharge. There are trophic skin changes noted of the forefoot. Laboratory studies reviewed, revealing a white count of 10.1. C reactive protein on 01/17 was 10.6. ASSESSMENT: Significant peripheral artery disease with gangrene of the digits, left side. Necrotic tissue of the right foot. However, his digits appear intact on the plantar surfaces. PLAN: We discussed with the patient with his limited ability to ambulate and trophic changes with erythema past the mid-foot, less likely that a transmetatarsal amputation would be a successful option. We discussed the [id number] amputation. Patient states he wishes to talk with his about any surgery on his feet or leg. His questions were answered.
[2021-01-22] MEDS: MIRALAX *UNIT DOSE* 17GM PACKET PO SCH (20:59)
[2021-01-22 21:00] VITALS: BP 120/57
[2021-01-22] MEDS: HYDROmorphone 2 MG TAB PO PRN (21:00)
[2021-01-22] MEDS: TAMSULOSIN 0.4 MG CAP PO SCH (21:01)
[2021-01-22] MEDS: NORTRIPTYLINE 10 MG CAP PO SCH (21:02)
[2021-01-22] MEDS: QUEtiapine FUMARATE 12.5 MG HALF-TAB PO SCH (21:02)
[2021-01-23 06:00] VITALS: BP 124/60
[2021-01-23] MEDS: MAALOX 30 ML SUSP *UDC PO PRN (06:22)
[2021-01-23] MEDS: ASPIRIN 81MG ENTERIC TABLET PO SCH (06:23)
[2021-01-23] MEDS: ENOXAPARIN 100MG/1ML SYRINGE (J1650 PER 10MG) SC SCH (06:23)
[2021-01-23] MEDS: PANTOPRAZOLE 40MG TAB (PROTONIX) PO SCH (06:24)
[2021-01-23] MEDS: SENOKOT S TAB PO SCH ×2 (06:24→20:29)
[2021-01-23] MEDS: METOPROLOL TART 50 MG TAB PO SCH ×2 (06:24→20:30)
[2021-01-23] MEDS: NEPHRO-VIT TAB (NEPHROCAPS) PO SCH (07:07)
[2021-01-23] MEDS: HumaLOG INSULIN (NovoLOG) PER UNIT SC SCH ×4 (07:45→20:31)
[2021-01-23] MEDS: DIMETHICONE 2% OINTMENT(VANICREAM) 70GM TUBE TOP SCH (11:10)
[2021-01-23] MEDS: HYDROmorphone 2 MG TAB PO PRN (18:08)
[2021-01-23] MEDS: MIRALAX *UNIT DOSE* 17GM PACKET PO SCH (20:28)
[2021-01-23] MEDS: NORTRIPTYLINE 10 MG CAP PO SCH (20:29)
[2021-01-23] MEDS: QUEtiapine FUMARATE 12.5 MG HALF-TAB PO SCH (20:29)
[2021-01-23] MEDS: TAMSULOSIN 0.4 MG CAP PO SCH (20:30)
[2021-01-23 20:57] VITALS: BP 134/54
[2021-01-24 06:00] VITALS: BP 136/76
[2021-01-24] MEDS: ENOXAPARIN 100MG/1ML SYRINGE (J1650 PER 10MG) SC SCH (06:10)
[2021-01-24] MEDS: SENOKOT S TAB PO SCH ×2 (06:10→20:17)
[2021-01-24] MEDS: NEPHRO-VIT TAB (NEPHROCAPS) PO SCH (06:11)
[2021-01-24] MEDS: ASPIRIN 81MG ENTERIC TABLET PO SCH (06:11)
[2021-01-24] MEDS: PANTOPRAZOLE 40MG TAB (PROTONIX) PO SCH (06:11)
[2021-01-24] MEDS: METOPROLOL TART 50 MG TAB PO SCH ×2 (06:11→20:18)
[2021-01-24 06:27] LABS: BASO # 0.1 10^3/uL (0.0-0.2); BASO % 0.5 % (0.0-1.0); EOS # 0.5 10^3/uL (0.0-0.5); EOS % 3.9 % (0.0-3.0); HEMATOCRIT 28.2 % (42.0-52.0); HEMOGLOBIN 9.1 g/dl (13.5-17.5); LYMPH # 1.3 10^3/uL (1.5-5.0); LYMPH % 10.7 % (24.0-44.0); MEAN CORPUSCULAR HEMOGLOBIN 33.6 pg (27.0-33.0); MEAN CORPUSCULAR HGB CONC 32.3 g/dl (32.0-36.5); MEAN CORPUSCULAR VOLUME 104.1 fl (80.0-96.0); MONO % 8.1 % (2.0-8.0); NEUTROPHILS # 9.2 10^3/uL (1.5-8.5); NEUTROPHILS % 75.9 % (36.0-66.0); PLATELET COUNT, AUTOMATED 201 10^3/uL (150-450); RED BLOOD COUNT 2.71 10^6/uL (4.30-6.10); WHITE BLOOD COUNT 12.2 10^3/uL (4.0-10.0)
[2021-01-24 06:59] LABS: ALBUMIN 2.1 GM/DL (3.2-5.2); BILIRUBIN,TOTAL 0.5 MG/DL (0.2-1.0); CALCIUM LEVEL 8.1 MG/DL (8.8-10.2); CREATININE FOR GFR 3.04 MG/DL (0.70-1.30); GLOMERULAR FILTRATION RATE 21.5 (>42); MAGNESIUM LEVEL 1.9 MG/DL (1.8-2.4); POTASSIUM SERUM 5.1 MEQ/L (3.5-5.1); TOTAL PROTEIN 7.1 GM/DL (6.4-8.2)
[2021-01-24] MEDS: HumaLOG INSULIN (NovoLOG) PER UNIT SC SCH ×4 (09:29→20:18)
[2021-01-24] MEDS: DIMETHICONE 2% OINTMENT(VANICREAM) 70GM TUBE TOP SCH (09:30)
[2021-01-24] MEDS ORDERED: SODIUM CHLORIDE 0.9% 1000ML IV PRN (09:45)
[2021-01-24] MEDS: HYDROmorphone 2 MG TAB PO PRN (10:06)
[2021-01-24 11:06] LABS: PERCENT SATURATION 24.4 % (19.7-50.0)
--- NOTE | 2021-01-24 19:35 | IPN ---
PROGRESS NOTE DATE: 01/24/2021 SUBJECTIVE: Mr. Bernard is seen and examined this afternoon receiving hemodialysis. He also has no complaints. He is being dialyzed without any issues. Goal removal today is 1.5 liters. His bladder scan today was 500 mL, but he reports he did not get any straight catheterization done. He has likely been refusing this, although he did not admit the same to me. VITAL SIGNS: Temperature 98.4, pulse 105, respiratory rate 18, blood pressure 136/76, saturating 96% on room air. Intake yesterday was 1.1 liters. Dialysis today removed 1.5 liters. Weight in the bed scale is 94 kg. GENERAL: Patient was seen lying in bed in the hemodialysis unit receiving his treatment, awake and comfortable in no distress. Extraocular muscles are intact. Tongue is moist. Neck is supple. Tunneled hemodialysis catheter is in use. HEART: Sounds are regular, S1, S2. There is no peripheral edema. LUNGS: Clear to auscultation, anterior auscultation only. No crackle, rales, or wheeze. ABDOMEN: Soft and nontender. I could not appreciate any suprapubic bladder fullness. EXTREMITIES: There is some dry gangrenous changes and erythema of the feet and proximal ankles, but there is no edema. He moves all four extremities on command. NEUROLOGIC: Patient is cooperative with physical exam and follows simple commands appropriately. He is a poor historian and speaks in a very low tone and is somewhat difficult to understand. White count 12.2, hemoglobin 9.1, platelets 201. Sodium 135, potassium 5.1, bicarbonate 26, BUN 26, creatinine 3.0. Transferrin saturation 24%. INPATIENT MEDICATIONS: Reviewed by myself. Patient continues on: - Tylenol as needed - Mylanta as needed - aspirin 81 mg daily - Aranesp with dialysis - Docusate twice a day - Lovenox 100 mg subcutaneous daily - Dilaudid as needed - insulin - metoprolol 50 mg by mouth twice a day - nortriptyline 20 mg by mouth every night - Protonix 40 mg by mouth daily - MiraLax one packet by mouth every night - Seroquel 12.5 mg by mouth every night - Flomax 0.8 mg by mouth daily - Nephro-Juan Luis one tablet by mouth daily I ordered three more doses of Venofer. PROBLEMS: 1. End-stage renal disease on hemodialysis on a Saturday, , Saturday schedule. Patient was dialyzed today. There was 1.5 liters of fluid removed. His electrolytes and volume status are acceptable. His next hemodialysis treatment will be on . 2. Anemia in the setting of iron deficiency, chronic inflammation, and end-stage renal disease. Patient continues on Aranesp with dialysis for goal hemoglobin 10-11, and three more doses of Venofer were ordered as well. 3. Aortic stenosis status post transcatheter aortic valve replacement (TAVR). I note patient is on chronic long-term anticoagulation. He was on Coumadin. For some reason he has been on Lovenox (dose of 100 mcg subcutaneous daily). I am not sure for what reason we have him on Lovenox instead of Coumadin, but if there is no further procedure planned, I would suggest to transition his anticoagulation back to Coumadin, as long-term Lovenox is not appropriate in end-stage renal disease. 4. Intermittent urinary retention and benign prostatic hypertrophy. He continues on Flomax 0.8 mg by mouth daily. He tells me that he has not refused straight catheterization, and I have advised him to get it done if his postvoid residual bladder scan is more than 500 mL. 5. Hypertension. Blood pressures are acceptably controlled on current dose of Lopressor. 6. Peripheral vascular disease with ulcers on his bilateral lower extremities, which are ischemic and status post angioplasty. He continues with local wound care and aspirin. He is intolerant of statins. He reports pain is controlled. Further treatment is as per primary team and vascular. I am not sure why he is on Lovenox anticoagulation. Are there any further procedures planned? If there is no further procedure planned, please consider changing his anticoagulation. 7. Chronic diastolic congestive heart failure. Volume status regulated by hemodialysis and is compensated at present. 8. Hyperkalemia. Potassium is 5.1, and it will improve with dialysis.
[2021-01-24 19:57] LABS: INR 1.03; PROTHROMBIN TIME 13.9 SECONDS (12.7-14.5)
[2021-01-24] MEDS: MIRALAX *UNIT DOSE* 17GM PACKET PO SCH (20:16)
[2021-01-24] MEDS: TAMSULOSIN 0.4 MG CAP PO SCH (20:17)
[2021-01-24] MEDS: QUEtiapine FUMARATE 12.5 MG HALF-TAB PO SCH (20:17)
[2021-01-25 06:00] VITALS: BP 154/83
[2021-01-25] MEDS: SENOKOT S TAB PO SCH ×2 (09:17→21:00)
[2021-01-25] MEDS: PANTOPRAZOLE 40MG TAB (PROTONIX) PO SCH (09:17)
[2021-01-25] MEDS: ASPIRIN 81MG ENTERIC TABLET PO SCH (09:17)
[2021-01-25] MEDS: NEPHRO-VIT TAB (NEPHROCAPS) PO SCH (09:17)
[2021-01-25] MEDS: HumaLOG INSULIN (NovoLOG) PER UNIT SC SCH ×4 (09:18→21:32)
[2021-01-25] MEDS: DIMETHICONE 2% OINTMENT(VANICREAM) 70GM TUBE TOP SCH (09:19)
[2021-01-25] MEDS: METOPROLOL TART 50 MG TAB PO SCH ×2 (09:24→21:32)
[2021-01-25] MEDS: HYDROmorphone 2 MG TAB PO PRN (18:14)
[2021-01-25] MEDS: WARFARIN SOD 4MG TAB PO SCH (18:15)
[2021-01-25] MEDS: QUEtiapine FUMARATE 12.5 MG HALF-TAB PO SCH (21:31)
[2021-01-25] MEDS: TAMSULOSIN 0.4 MG CAP PO SCH (21:31)
[2021-01-25] MEDS: MIRALAX *UNIT DOSE* 17GM PACKET PO SCH (21:32)
[2021-01-26] MEDS: ASPIRIN 81MG ENTERIC TABLET PO SCH (05:28)
[2021-01-26] MEDS: SENOKOT S TAB PO SCH ×2 (05:28→21:03)
[2021-01-26] MEDS: NEPHRO-VIT TAB (NEPHROCAPS) PO SCH (05:29)
[2021-01-26] MEDS: PANTOPRAZOLE 40MG TAB (PROTONIX) PO SCH (05:29)
[2021-01-26] MEDS: METOPROLOL TART 50 MG TAB PO SCH ×2 (05:29→21:03)
[2021-01-26 06:00] VITALS: BP 129/73
[2021-01-26] MEDS ORDERED: SODIUM CHLORIDE 0.9% 1000ML IV PRN (07:25)
[2021-01-26] MEDS: HumaLOG INSULIN (NovoLOG) PER UNIT SC SCH ×4 (07:45→20:37)
[2021-01-26 09:14] LABS: HEMATOCRIT 28.2 % (42.0-52.0); MEAN CORPUSCULAR HEMOGLOBIN 33.7 pg (27.0-33.0); MEAN CORPUSCULAR HGB CONC 31.9 g/dl (32.0-36.5); MEAN CORPUSCULAR VOLUME 105.6 fl (80.0-96.0); PLATELET COUNT, AUTOMATED 208 10^3/uL (150-450); RED BLOOD COUNT 2.67 10^6/uL (4.30-6.10); WHITE BLOOD COUNT 12.5 10^3/uL (4.0-10.0)
[2021-01-26] MEDS: IRON SUCROSE 100MG 5ML VIAL (J1756 PER 1MG) IV SCH (09:16)
[2021-01-26] MEDS ORDERED: ONDANSETRON 4MG/2ML VIAL IV PRN (09:30)
[2021-01-26] MEDS ORDERED: ONDANSETRON 4 MG TAB PO PRN (10:00)
[2021-01-26 10:05] LABS: BLOOD UREA NITROGEN 27 MG/DL (7-18); CALCIUM LEVEL 8.4 MG/DL (8.8-10.2); CARBON DIOXIDE LEVEL 24 MEQ/L (21-32); CHLORIDE LEVEL 104 MEQ/L (98-107); CREATININE FOR GFR 3.13 MG/DL (0.70-1.30); GLOMERULAR FILTRATION RATE 20.8 (>42); GLUCOSE, FASTING 266 MG/DL (70-100); POTASSIUM SERUM 4.5 MEQ/L (3.5-5.1); SODIUM LEVEL 135 MEQ/L (136-145)
[2021-01-26] MEDS: DARBEPOETIN 100 MCG/0.5 ML *DIALYSIS* SYRINGE (J0882) IV SCH (10:18)
[2021-01-26] MEDS: DIMETHICONE 2% OINTMENT(VANICREAM) 70GM TUBE TOP SCH (13:14)
--- NOTE | 2021-01-26 15:53 | CR.PDOC ---
General Date of Consultation: Jan 26, 2021 Consultation REASON FOR CONSULTATION/CHIEF COMPLAINT: Evaluation for left BKA. HISTORY OF PRESENT ILLNESS: 75-year-old male with multiple comorbidities recently had left leg angiogram with angioplasty of the SFA and popliteal artery patient only has 1 vessel runoff to the ankle via the peroneal artery the anterior tibial artery and posterior tibial artery are occluded with minimal blood flow to the foot. Patient has dry gangrene of fourth and fifth digits with no signs of active infection at this time. ALLERGIES: Please see below. HOME MEDICATIONS: Please see below. PAST MEDICAL HISTORY: See H&P PAST SURGICAL HISTORY: See H&P FAMILY HISTORY: See H&P SOCIAL HISTORY: See H&P REVIEW OF SYSTEMS: Left foot dry gangrene and as per H&P PHYSICAL EXAMINATION: VITAL SIGNS: Please see below. GENERAL APPEARANCE: Resting in bed, no complaints. HEENT: Normocephalic atraumatic neck supple. RESPIRATORY: CTA B/L. CARDIOVASCULAR: S1 & S2. ABDOMEN: Soft, ND, NT. EXTREMITIES: Nonpalpable pulses bilaterally, sluggish cap refill, dry gangrene and ischemic toes bilaterally, dry eschars bilaterally NEUROLOGICAL: Alert and oriented x3. PSYCHIATRIC: Cooperative. LABORATORY DATA: Please see below. ASSESSMENT/PLAN: 75-year-old male with significant comorbidities and complicated hospital course, has dry gangrene of left digits with necrotic eschar without any signs of active infection. Patient is status post left SFA and popliteal angioplasty which provided improved blood flow to the foot via the peroneal artery only. Because of the patient's overall status, recommend local wound care only. If left foot became infected only at that time should a left below-knee amputation be cons idered. Resume anticoagulation with Coumadin. Reconsult as needed Vital Signs/I&O Vital Signs Date Time Temp Pulse Resp B/P (MAP) Pulse Ox O2 Delivery O2 Flow Rate FiO2 01/26/21 06:00 98.0 86 18 129/73 (91) 96 Room Air I&O- Last 24 Hours up to 6 AM 01/26/21 05:59 Intake Total 570 ml Output Total 640 ml Balance -70 ml Laboratory Data Labs 24H Laboratory Tests 2 01/25/21 16:43: Bedside Glucose (Misc Panel) 301H 01/25/21 20:44: Bedside Glucose (Misc Panel) 387H 01/26/21 06:12: Bedside Glucose (Misc Panel) 268H 01/26/21 08:43: Nucleated Red Blood Cells % (auto) 0.0, Anion Gap 7L, Glomerular Filtration Rate 20.8L, Calcium Level 8.4L 01/26/21 12:54: Bedside Glucose (Misc Panel) 190H CBC/BMP Laboratory Tests 01/26/21 08:43 Allergies Coded Allergies: Carlotta (Verified Allergy, Severe, ANAPHYLAXIS, 11/09/14) Penicillins (Verified Allergy, Severe, Anaphylaxis, 02/17/20) HAS RECEIVED 2nd & 3RD GEN CEPHALOSPORINS w/o PROBLEM metformin (Verified Allergy, Severe, Tongue swelling, 07/02/18) tramadol (Verified Allergy, Unknown, 12/18/20) Ncbwafn-Rdo-Osc Reductase Inhibitor (Verified Adverse Reaction, Intermediate, Altered Mental Status, 07/02/18) codeine (Verified Adverse Reaction, Mild, "out of it". , 02/17/20) mixed with guifenasin duloxetine (Unverified Adverse Reaction, Mild, Nausea and vomiting, 07/02/18) clindamycin (Verified Adverse Reaction, Unknown, DIARRHEA, 02/29/20) Home Medications Scheduled Aspirin (Aspirin EC) 81 Mg Tablet.dr, 81 MG PO DAILY, (Reported) Cholecalciferol (Vitamin D3) (Vitamin D3) 50 Mcg Capsule, 2,000 UNITS PO DAILY, (Reported) TAKES AT NOON Echinacea (Echinacea) 380 Mg Cap, 380 MG PO DAILY, (Reported) Glipizide (Glipizide) 10 Mg Tab, 10 MG PO DAILY, (Reported) Glipizide (Glipizide) 10 Mg Tablet, 5 MG PO QHS, (Reported) Metoprolol Tartrate (Metoprolol Tartrate) 50 Mg Tablet, 50 MG PO BID, (Reported) Nortriptyline HCl (Nortriptyline HCl) 10 Mg Capsule, 20 MG PO QHS, (Reported) Pantoprazole Sodium (Pantoprazole Sodium) 40 Mg Tablet.dr, 40 MG PO DAILY, (Reported) Polyethylene Glycol 3350 (Miralax) 119 Gm Powder, 17 GM PO QHS, (Reported) HOLD FOR DIARRHEA Quetiapine Fumarate (Quetiapine Fumarate) 25 Mg Tablet, 12.5 MG PO QHS for 30 Days, #30 Sulfamethoxazole/Trimethoprim (Bactrim Ds Tablet) 1 Each Tablet, 1 TAB PO DAILY for 10 Days, #10 Warfarin Sodium (Warfarin Sodium) 4 Mg Tablet, 4 MG PO 6XWK, (Reported) SUN/MON//SAT/SAT/SAT EVENINGS Warfarin Sodium (Warfarin Sodium) 4 Mg Tablet, 2 MG PO QWEEK, (Reported) SATURDAY EVENINGS Scheduled PRN Acetaminophen (Tylenol Extra Strength) 500 Mg Tablet, 1,000 MG PO Q6H PRN for MILD/MODERATE PAIN (PS 1-7), (Reported) Ammonium Lactate (Ammonium Lactate) 12% Cream..g., 1 DOSE TOP DAILY PRN for DRY SKIN, (Reported) APPLY TO FEET Hydromorphone HCl (Dilaudid) 2 Mg Tablet, 2 MG PO Q4H PRN for SEVERE PAIN (PS 8- 10), (Reported) ROOSEVELT MAXWELL MD Jan 26, 2021 15:53
[2021-01-26] MEDS: WARFARIN SOD 4MG TAB PO SCH (17:18)
[2021-01-26] MEDS: HYDROmorphone 2 MG TAB PO PRN (17:23)
--- NOTE | 2021-01-26 17:56 | IPN ---
PROGRESS NOTE DATE: 12/14/2020 SUBJECTIVE: Newton is seen and examined this morning in the hemodialysis unit, receiving his treatment. He had an episode of small vomiting during dialysis and we cut down the amount of fluid removal. He was oriented to person, place and situation; however, was hallucinating that somewhat else he knows was having dialysis as well. The patient otherwise remains afebrile and hemodynamically stable. Denies shortness of breath at rest. OBJECTIVE: Vital signs: Temperature 98.0, pulse 86, respiratory rate 18, blood pressure 129/73, saturating 96% on room air. Weight in the bed scale today was not recorded. Dialysis today removed 1.2 liters. Most recent bladder scan volume was 350 mL. General: The patient was seen receiving dialysis, awake, alert and oriented to person, place and situation, but also having some strange delusions. Makes eye contact. Tongue is moist. Neck is supple. Tunnel hemodialysis catheter is in use. Heart sounds are regular. S1, S2. Lungs are clear to auscultation. No crackles or rales. Comfortable on room air. Abdomen is soft and tender. Extremities: His feet are enwrapped and there are some chronic wounds on the lower extremities. Neurologic: The patient is cooperative with simple commands and cooperative with physical examination and is oriented to person, place, but having some other delusions. LABORATORY DATA: White count 12.5, hemoglobin 9.0, platelets 208, sodium 135, potassium 4.5, bicarbonate 24, BUN 27. INPATIENT MEDICATIONS: Reviewed by myself and there are no changes noted from prior. PROBLEMS: 1. End-stage renal disease on hemodialysis on a Saturday, , Saturday schedule. The patient is dialyzed today. He had a small episode of vomiting. We cut down the fluid removal to 1.2 liters. His next dialysis will be on Saturday. His electrolytes and volume status are acceptable. 2. Anemia of chronic renal failure. Hemoglobin on the latest goal was 9.0. He continues on Aranesp with dialysis for a goal hemoglobin 10 to 11. 3. Hypertension. Blood pressures are acceptably controlled. There was no hypotension of hemodialysis and I am not making any change to the blood pressure regimen.
[2021-01-26 18:27] LABS: INR 1.03; PROTHROMBIN TIME 13.9 SECONDS (12.7-14.5)
[2021-01-26] MEDS: MIRALAX *UNIT DOSE* 17GM PACKET PO SCH (21:03)
[2021-01-26] MEDS: QUEtiapine FUMARATE 12.5 MG HALF-TAB PO SCH (21:03)
[2021-01-26] MEDS: TAMSULOSIN 0.4 MG CAP PO SCH (21:03)
[2021-01-27 06:00] VITALS: BP 133/71
[2021-01-27] MEDS: ASPIRIN 81MG ENTERIC TABLET PO SCH (09:47)
[2021-01-27] MEDS: NEPHRO-VIT TAB (NEPHROCAPS) PO SCH (09:47)
[2021-01-27] MEDS: SENOKOT S TAB PO SCH ×2 (09:48→21:55)
[2021-01-27] MEDS: METOPROLOL TART 50 MG TAB PO SCH ×2 (09:48→21:56)
[2021-01-27] MEDS: PANTOPRAZOLE 40MG TAB (PROTONIX) PO SCH (09:48)
[2021-01-27] MEDS: HumaLOG INSULIN (NovoLOG) PER UNIT SC SCH ×4 (09:48→21:55)
[2021-01-27] MEDS: DIMETHICONE 2% OINTMENT(VANICREAM) 70GM TUBE TOP SCH (09:49)
[2021-01-27 17:43] LABS: INR 1.08; PROTHROMBIN TIME 14.4 SECONDS (12.7-14.5)
[2021-01-27] MEDS: WARFARIN SOD 4MG TAB PO SCH (18:01)
[2021-01-27] MEDS: MIRALAX *UNIT DOSE* 17GM PACKET PO SCH (21:54)
[2021-01-27] MEDS: TAMSULOSIN 0.4 MG CAP PO SCH (21:55)
[2021-01-27] MEDS: QUEtiapine FUMARATE 12.5 MG HALF-TAB PO SCH (21:55)
[2021-01-28] MEDS: ASPIRIN 81MG ENTERIC TABLET PO SCH (05:25)
[2021-01-28] MEDS: METOPROLOL TART 50 MG TAB PO SCH ×2 (05:25→20:55)
[2021-01-28] MEDS: NEPHRO-VIT TAB (NEPHROCAPS) PO SCH (05:26)
[2021-01-28] MEDS: SENOKOT S TAB PO SCH ×2 (05:26→20:53)
[2021-01-28] MEDS: PANTOPRAZOLE 40MG TAB (PROTONIX) PO SCH (05:26)
[2021-01-28 06:00] VITALS: BP 141/58
[2021-01-28] MEDS: HumaLOG INSULIN (NovoLOG) PER UNIT SC SCH ×4 (07:44→20:54)
[2021-01-28] MEDS: DIMETHICONE 2% OINTMENT(VANICREAM) 70GM TUBE TOP SCH (07:45)
[2021-01-28] MEDS: HYDROmorphone 2 MG TAB PO PRN ×2 (07:46→13:42)
[2021-01-28] MEDS: IRON SUCROSE 100MG 5ML VIAL (J1756 PER 1MG) IV SCH (10:53)
[2021-01-28 16:55] LABS: INR 1.07; PROTHROMBIN TIME 14.3 SECONDS (12.7-14.5)
[2021-01-28] MEDS: WARFARIN SOD 4MG TAB PO SCH (17:15)
[2021-01-28] MEDS: MIRALAX *UNIT DOSE* 17GM PACKET PO SCH (20:53)
[2021-01-28] MEDS: QUEtiapine FUMARATE 12.5 MG HALF-TAB PO SCH (20:53)
[2021-01-28] MEDS: TAMSULOSIN 0.4 MG CAP PO SCH (20:53)
[2021-01-28 22:00] VITALS: BP 115/69
[2021-01-29 06:00] VITALS: BP 135/63
[2021-01-29] MEDS: PANTOPRAZOLE 40MG TAB (PROTONIX) PO SCH (08:19)
[2021-01-29] MEDS: ASPIRIN 81MG ENTERIC TABLET PO SCH (08:19)
[2021-01-29] MEDS: NEPHRO-VIT TAB (NEPHROCAPS) PO SCH (08:19)
[2021-01-29] MEDS: METOPROLOL TART 50 MG TAB PO SCH ×2 (08:19→20:58)
[2021-01-29] MEDS: HYDROmorphone 2 MG TAB PO PRN ×2 (08:20→14:27)
[2021-01-29] MEDS: SENOKOT S TAB PO SCH ×2 (08:22→20:57)
[2021-01-29] MEDS: HumaLOG INSULIN (NovoLOG) PER UNIT SC SCH ×4 (08:22→20:57)
[2021-01-29] MEDS: DIMETHICONE 2% OINTMENT(VANICREAM) 70GM TUBE TOP SCH (08:22)
[2021-01-29] MEDS: LIDOCAINE 2% 5ML JELLY UROJET TOP ONE ×3 (09:15→15:56)
[2021-01-29 11:00] VITALS: BP 141/73
[2021-01-29] MEDS: ACETAMINOPHEN TAB 650MG DOSE (2X325MG) PO PRN (18:33)
[2021-01-29] MEDS: WARFARIN SOD 4MG TAB PO SCH (18:33)
[2021-01-29] MEDS: TAMSULOSIN 0.4 MG CAP PO SCH (20:57)
[2021-01-29] MEDS: QUEtiapine FUMARATE 12.5 MG HALF-TAB PO SCH (20:57)
[2021-01-29] MEDS: MIRALAX *UNIT DOSE* 17GM PACKET PO SCH (20:59)
[2021-01-30 06:00] VITALS: BP 166/83
[2021-01-30] MEDS: SENOKOT S TAB PO SCH ×2 (08:05→21:22)
[2021-01-30] MEDS: ASPIRIN 81MG ENTERIC TABLET PO SCH (08:05)
[2021-01-30] MEDS: NEPHRO-VIT TAB (NEPHROCAPS) PO SCH (08:05)
[2021-01-30] MEDS: HumaLOG INSULIN (NovoLOG) PER UNIT SC SCH ×4 (08:05→21:00)
[2021-01-30] MEDS: PANTOPRAZOLE 40MG TAB (PROTONIX) PO SCH (08:05)
[2021-01-30] MEDS: DIMETHICONE 2% OINTMENT(VANICREAM) 70GM TUBE TOP SCH (08:06)
[2021-01-30] MEDS: METOPROLOL TART 50 MG TAB PO SCH ×2 (08:06→21:23)
[2021-01-30 10:15] LABS: HEPATITIS B SURFACE ANTIGEN NEGATIVE (NEGATIVE)
[2021-01-30] MEDS ORDERED: DILA2TAB6 PO (12:02)
[2021-01-30] MEDS ORDERED: TRIPCAP PO (12:02)
[2021-01-30] MEDS ORDERED: ACET1TAB55 PO (12:02)
[2021-01-30] MEDS ORDERED: ONDA-83 PO (12:02)
[2021-01-30] MEDS: HYDROmorphone 2 MG TAB PO PRN ×2 (13:57→21:22)
[2021-01-30 14:00] VITALS: BP 156/81
[2021-01-30] MEDS: WARFARIN SOD 4MG TAB PO SCH (17:44)
--- NOTE | 2021-01-30 19:32 | DS.PDOC ---
Discharge Summary General Date of Admission Dec 14, 2020 at 21:45 Date of Discharge 01/30/21 Discharge Summary PROCEDURES PERFORMED DURING STAY: IR Left leg angiogram IR Below-knee runoff arteriogram. IR Ultrasound-guided left common femoral artery access. IR Left superficial femoral artery angioplasty. IR Left popliteal artery angioplasty. IR Left peroneal artery angioplasty. IR Right leg angiogram. IR Right below-knee runoff arteriogram. IR Ultrasound-guided left common femoral artery access. IR Ultrasound-guided right common femoral artery access. IR Right peroneal artery recanalization. IR Right peroneal artery angioplasty. ADMITTING DIAGNOSES: RLE with ulceration of medial aspect of leg and LLE with ulceration of toes ESRD on HD (TTS) s/p Urinary retention HTN Chronic diastolic congestive heart failure Delirium on dementia in the setting of Lewy Body Dementia Aortic stenosis s/p TAVR Peripheral artery disease DM2 Mood disorder DISCHARGE DIAGNOSES: RLE with ulceration of medial aspect of leg and LLE with ulceration of toes ESRD on HD (TTS) s/p Urinary retention HTN Chronic diastolic congestive heart failure Delirium on dementia in the setting of Lewy Body Dementia Aortic stenosis s/p TAVR Peripheral artery disease DM2 Mood disorder COMPLICATIONS/CHIEF COMPLAINT: Dyspnea, Encephalopathy Acute, Weakness. HISTORY OF PRESENT ILLNESS: Mhx of Lewy Body Dementia, CAD s/p CABG, s/p TAVR (on Warfarin), HTN, Diastolic CHF / Pulmonary HTN, SIDNEY, DM2, ESRD on HD, Hx of CVA, Hx of PAD, who presented one day after discharge from acute rehabilitation with confusion and reported shortness of breath. Patient was admitted to hospital service for further evaluation and treatment. Patient's confusion had improved relatively quickly and patient was taken for an angioplasty of his RLE with Dr. Tafoya on 12/21. S/p additional angioplasty of LLE on 01/16/21. HOSPITAL COURSE: The hospital stay the following issues addressed RLE with ulceration of medial aspect of leg and LLE with ulceration of toes Patient had Angioplasty on 12/21 of RLE peroneal artery with Dr. Tafoya see result below Patient completed the course of antibiotics for right lower extremity infection - Dr. Tafoya performed additional angioplasty on 01/17/21 - successful angioplasty of distal superficial femoral artery and popliteal artery with improved flow. Unsuccessful attempt at anterior tibial and posterior tibial artery recanalization. See result below Dr. Lo consulted patient and he recommended right below-knee amputation. Vascular surgeon Dr. Fernandez consulted patient he recommended local wound care only. If the foot became infected only at that time should a below-knee amputa tion be considered. ESRD on HD (TTS) Patient received dialysis during hospital stay s/p Urinary retention Due to multiple episodes of urinary retention Pittman catheter was placed. Follow-up with urologist in the outpatient settings Delirium on dementia in the setting of Lewy Body Dementia Follow-up with PCP and neurologist in the outpatient settings DISCHARGE MEDICATIONS: Please see below. ALLERGIES: Please see below. PHYSICAL EXAMINATION ON DISCHARGE: VITAL SIGNS: please see below General: NAD, comfortable HEENT: PERRLA, EOMI, sclerae clear Neck: supple, normal ROM, no JVD Respiratory: lungs CTAB, no wheeze, no rales, no crackles CVS: RRR, normal S1, S2, no murmurs Abdo: soft, no masses, no hepatosplenomegaly, BS+, no rebound tenderness Extremities: examined feet, L foot: toes 1, 3,4,5 exhibit dry gangrene, skin erythema extending upwards toward ankle. no purulence, no sharp demarcation of erythema. MSK: no joint deformities, normal ROM Neuro: no focal neuro deficits, moving all 4 extremities, CN2-12 intact. Strength 5/5 in all 4 extremities. No nystagmus. Psych: calm, cooperative, AAO x 3 LABORATORY DATA: Please see below. IMAGIN. Left leg angiogram demonstrates multifocal stenosis in the left distal superficial femoral artery and popliteal artery. 2. Single-vessel peroneal artery outflow to the left foot with multifocal stenosis. Completely occluded anterior tibial and posterior tibial artery. 3. Successful angioplasty of distal superficial femoral artery and popliteal artery with improved flow. 4. Unsuccessful attempt at anterior tibial and posterior tibial artery recanalization. 5. Successful angioplasty of peroneal artery and tibioperoneal trunk with improved flow into the left foot via collaterals. Six. Microvascular disease in the left foot with incomplete pedal loop. 1. Right leg angiogram demonstrates severe below-knee disease with no arterial runoff to the right foot. 2. Successful right peroneal artery recanalization and angioplasty with improved supply to collaterals to the ankle and collateral reconstitution of dorsalis pedis territory. 3. Unsuccessful anterior tibial and posterior tibial artery recanalization. 4. There is severe microvascular disease within the right foot with some reconstitution of dorsalis pedis territory via collaterals from the peroneal artery but no significant reconstitution of distal posterior tibial artery or calcaneal or plantar branches. PROGNOSIS: Guarded ACTIVITY: [As tolerated]. DIET: Cardiac/diabetes DISPOSITION: Home with home health DISCHARGE INSTRUCTIONS: Follow-up with cash reconciliation specialist Dr. Mcclure, natural sciences manager, PCP DISCHARGE CONDITION: [Stable]. TIME SPENT ON DISCHARGE: 50minutes. Vital Signs/I&Os Vital Signs Date Time Temp Pulse Resp B/P (MAP) Pulse Ox O2 Delivery O2 Flow Rate FiO2 01/30/21 14:27 14 01/30/21 14:00 97.8 85 156/81 (106) 99 Room Air I&O- Last 24 Hours up to 6 AM 01/30/21 06:00 Intake Total 1260 ml Output Total 475 ml Balance 785 ml Laboratory Data Labs 24H Laboratory Tests 2 01/29/21 19:40: Bedside Glucose (Misc Panel) 275H 01/30/21 05:49: Bedside Glucose (Misc Panel) 231H 01/30/21 11:21: Bedside Glucose (Misc Panel) 254H 01/30/21 16:57: Bedside Glucose (Misc Panel) 226H FSBS Laboratory Tests Test 01/29/21 19:40 01/30/21 05:49 01/30/21 11:21 01/30/21 16:57 Range/Units Bedside Glucose (Misc Panel) 275 231 254 226 83-110 MG/DL Microbiology Microbiology 01/29/21 Urine Culture, Received Pending Discharge Medications Scheduled Aspirin (Aspirin EC) 81 Mg Tablet.dr, 81 MG PO DAILY, (Reported) B Complex W-C No.20/Folic Acid (Triphrocaps Softgel) 1 Mg Capsule, 1 TAB PO DAILY Cholecalciferol (Vitamin D3) (Vitamin D3) 50 Mcg Capsule, 2,000 UNITS PO DAILY, (Reported) TAKES AT NOON Echinacea (Echinacea) 380 Mg Cap, 380 MG PO DAILY, (Reported) Glipizide (Glipizide) 10 Mg Tab, 10 MG PO DAILY, (Reported) Glipizide (Glipizide) 10 Mg Tablet, 5 MG PO QHS, (Reported) Metoprolol Tartrate (Metoprolol Tartrate) 50 Mg Tablet, 50 MG PO BID, (Reported) Nortriptyline HCl (Nortriptyline HCl) 10 Mg Capsule, 20 MG PO QHS, (Reported) Pantoprazole Sodium (Pantoprazole Sodium) 40 Mg Tablet.dr, 40 MG PO DAILY, (Reported) Polyethylene Glycol 3350 (Miralax) 119 Gm Powder, 17 GM PO QHS, (Reported) HOLD FOR DIARRHEA Quetiapine Fumarate (Quetiapine Fumarate) 25 Mg Tablet, 12.5 MG PO QHS Warfarin Sodium (Warfarin Sodium) 4 Mg Tablet, 4 MG PO 6XWK, (Reported) SUN/SAT//SAT/SAT/SAT EVENINGS Warfarin Sodium (Warfarin Sodium) 4 Mg Tablet, 2 MG PO QWEEK, (Reported) SATURDAY EVENINGS Scheduled PRN Acetaminophen (Tylenol Extra Strength) 500 Mg Tablet, 1,000 MG PO Q6H PRN for MILD/MODERATE PAIN (PS 1-7), (Reported) Acetaminophen (Acetaminophen) 325 Mg Tablet, 650 MG PO Q4H PRN for MILD PAIN or TEMP > 101 Ammonium Lactate (Ammonium Lactate) 12% Cream..g., 1 DOSE TOP DAILY PRN for DRY SKIN, (Reported) APPLY TO FEET Hydromorphone HCl (Dilaudid) 2 Mg Tablet, 2 MG PO Q4H PRN for SEVERE PAIN (PS 8- 10), (Reported) Hydromorphone HCl (Dilaudid) 2 Mg Tablet, 1 MG PO Q6HP PRN for MODERATE PAIN (PS 5-7) Ondansetron HCl (Ondansetron HCl) 4 Mg Tablet, 4 MG PO Q6HP PRN for NAUSEA OR VOMITING Allergies Coded Allergies: [place] (Verified Allergy, Severe, ANAPHYLAXIS, 11/09/14) Penicillins (Verified Allergy, Severe, Anaphylaxis, 02/17/20) HAS RECEIVED 2nd & 3RD GEN CEPHALOSPORINS w/o PROBLEM metformin (Verified Allergy, Severe, Tongue swelling, 07/02/18) tramadol (Verified Allergy, Unknown, 12/18/20) Wqzuror-Igk-Zdw Reductase Inhibitor (Verified Adverse Reaction, Intermediate, Altered Mental Status, 07/02/18) codeine (Verified Adverse Reaction, Mild, "out of it". , 02/17/20) mixed with guifenasin duloxetine (Unverified Adverse Reaction, Mild, Nausea and vomiting, 07/02/18) clindamycin (Verified Adverse Reaction, Unknown, DIARRHEA, 02/29/20) SRAVANTHI LORENZANA DO Jan 30, 2021 19:31
[2021-01-30 20:00] VITALS: BP 147/69
[2021-01-30] MEDS: QUEtiapine FUMARATE 12.5 MG HALF-TAB PO SCH (21:22)
[2021-01-30] MEDS: MIRALAX *UNIT DOSE* 17GM PACKET PO SCH (21:23)
[2021-01-30] MEDS: TAMSULOSIN 0.4 MG CAP PO SCH (21:23)
[2021-01-31] MEDS: NEPHRO-VIT TAB (NEPHROCAPS) PO SCH (05:37)
[2021-01-31] MEDS: SENOKOT S TAB PO SCH (05:37)
[2021-01-31] MEDS: ASPIRIN 81MG ENTERIC TABLET PO SCH (05:37)
[2021-01-31 05:38] VITALS: BP 148/80
[2021-01-31] MEDS: METOPROLOL TART 50 MG TAB PO SCH (05:38)
[2021-01-31] MEDS: PANTOPRAZOLE 40MG TAB (PROTONIX) PO SCH (05:38)
[2021-01-31 06:00] VITALS: BP 148/80
[2021-01-31] MEDS: HumaLOG INSULIN (NovoLOG) PER UNIT SC SCH ×2 (07:39→13:15)
[2021-01-31 08:25] LABS: HEMATOCRIT 27.8 % (42.0-52.0); HEMOGLOBIN 8.9 g/dl (13.5-17.5); MEAN CORPUSCULAR HEMOGLOBIN 33.8 pg (27.0-33.0); MEAN CORPUSCULAR VOLUME 105.7 fl (80.0-96.0); PLATELET COUNT, AUTOMATED 221 10^3/uL (150-450); RED BLOOD COUNT 2.63 10^6/uL (4.30-6.10); WHITE BLOOD COUNT 11.2 10^3/uL (4.0-10.0)
[2021-01-31 08:40] LABS: INR 1.24
[2021-01-31 08:53] LABS: CALCIUM LEVEL 8.6 MG/DL (8.8-10.2); CREATININE FOR GFR 2.3 MG/DL (0.70-1.30); GLOMERULAR FILTRATION RATE 29.7 (>42); PHOSPHORUS LEVEL 2.1 MG/DL (2.5-4.9); POTASSIUM SERUM 4.6 MEQ/L (3.5-5.1)
[2021-01-31] MEDS: DIMETHICONE 2% OINTMENT(VANICREAM) 70GM TUBE TOP SCH (09:11)
[2021-01-31] MEDS: IRON SUCROSE 100MG 5ML VIAL (J1756 PER 1MG) IV SCH (09:57)
[2021-01-31] MEDS ORDERED: LEVO750T13 PO (12:04)
[2021-01-31] MEDS ORDERED: LevoFLOXacin 750 MG TABLET PO ONE (14:00)
--- NOTE | 2021-01-31 14:15 | IPN ---
PROGRESS NOTE DATE: 01/31/2021 SUBJECTIVE: Mr. Pabon is seen this morning on his bedside during hemodialysis. He was initially scheduled for discharge yesterday, however could not be discharged and is likely to be discharged later today. Patient is feeling well and denies any dyspnea, chest pain, nausea or vomiting. OBJECTIVE: VITAL SIGNS: Temperature is 98.8 degrees Fahrenheit, heart rate is 90 per minute and respiratory rate is 18 per minute, blood pressure 148/80 mmHg and oxygen saturation is 95% on room air. HEENT: Head is atraumatic. NECK: Neck is supple and JVD not abnormally elevated. There is a dialysis cathete in the right internal jugular vein without any sign of infection. HEART: Heart sounds are irregular in rhythm. LUNGS: Clear to auscultation. ABDOMEN: Soft and nontender. Bowel sounds are normal. EXTREMITIES: Without any cyanosis or clubbing. He has dressings on both feet and leg ulcers. NEUROLOGIC: He is at his baseline mentation. LABORATORY DATA: Today's labs shows a WBC count of 11.2, hemoglobin 8.9 and hematocrit 27.8. Sodium is 137, potassium is 4.6, BUN 22 and creatinine is 2.3. Glucose is 233 and calcium is 8.6. PROBLEMS: 1. Endstage renal disease: Patient is being dialyzed and tolerating dialysis well. 2. Hyponatremia, his sodium level has corrected now and will continue to manage with dialysis. 3. Anemia, his anemia persists and this is most likely related to chronic ulcers on both legs in the setting of endstage renal disease. He also had iron deficiency and will continue with intravenous iron in the dialysis unit along with LALITHA. 4. Hypertension, blood pressure is very well-controlled and he will continue with current antihypertensive medications. 5. Peripheral vascular disease with bilateral lower extremity ulcers. This is a significant issue and his peripheral vascular disease is pretty advanced and nothing could be improved with angioplasty. He remains on wound care. 6. Disposition: From a kidney standpoint, the patient can be discharged home today and follow-up in the outpatient dialysis clinic.
--- NOTE | 2021-01-31 19:42 | DS.PDOC ---
Discharge Summary General Date of Admission Dec 14, 2020 at 21:45 Date of Discharge 01/31/21 Discharge Summary DICTATED DISCHARGE SUMMARY JOB # [id number] Vital Signs/I&Os Vital Signs Date Time Temp Pulse Resp B/P (MAP) Pulse Ox O2 Delivery O2 Flow Rate FiO2 01/31/21 06:00 98.8 90 18 148/80 (102) 95 Room Air I&O- Last 24 Hours up to 6 AM 01/31/21 06:00 Intake Total 0 ml Output Total 1480 ml Balance -1480 ml Laboratory Data Labs 24H Laboratory Tests 2 01/30/21 20:47: Bedside Glucose (Misc Panel) 177H 01/31/21 07:36: Bedside Glucose (Misc Panel) 194H 01/31/21 07:40: Nucleated Red Blood Cells % (auto) 0.0, Prothrombin Time 16.0H, Prothromb Time International Ratio 1.24, Anion Gap 6L, Glomerular Filtration Rate 29.7L, Calcium Level 8.6L, Phosphorus Level 2.1L, Albumin 2.0L 01/31/21 11:41: Bedside Glucose (Misc Panel) 183H CBC/BMP Laboratory Tests 01/31/21 07:40 FSBS Laboratory Tests Test 01/30/21 20:47 01/31/21 07:36 01/31/21 11:41 Range/Units Bedside Glucose (Misc Panel) 177 194 183 83-110 MG/DL Microbiology Microbiology 01/29/21 Urine Culture - Final, Complete Enterococcus Faecalis Discharge Medications Scheduled Aspirin (Aspirin EC) 81 Mg Tablet.dr, 81 MG PO DAILY, (Reported) B Complex W-C No.20/Folic Acid (Triphrocaps Softgel) 1 Mg Capsule, 1 TAB PO DAILY Cholecalciferol (Vitamin D3) (Vitamin D3) 50 Mcg Capsule, 2,000 UNITS PO DAILY, (Reported) TAKES AT NOON Echinacea (Echinacea) 380 Mg Cap, 380 MG PO DAILY, (Reported) Glipizide (Glipizide) 10 Mg Tab, 10 MG PO DAILY, (Reported) Glipizide (Glipizide) 10 Mg Tablet, 5 MG PO QHS, (Reported) Levofloxacin (Levofloxacin) 750 Mg Tablet, 750 MG PO Q48H Metoprolol Tartrate (Metoprolol Tartrate) 50 Mg Tablet, 50 MG PO BID, (Reported) Nortriptyline HCl (Nortriptyline HCl) 10 Mg Capsule, 20 MG PO QHS, (Reported) Pantoprazole Sodium (Pantoprazole Sodium) 40 Mg Tablet.dr, 40 MG PO DAILY, (Reported) Polyethylene Glycol 3350 (Miralax) 119 Gm Powder, 17 GM PO QHS, (Reported) HOLD FOR DIARRHEA Quetiapine Fumarate (Quetiapine Fumarate) 25 Mg Tablet, 12.5 MG PO QHS Warfarin Sodium (Warfarin Sodium) 4 Mg Tablet, 4 MG PO 6XWK, (Reported) SUN/MON//SAT/SAT/SAT EVENINGS Warfarin Sodium (Warfarin Sodium) 4 Mg Tablet, 2 MG PO QWEEK, (Reported) SATURDAY EVENINGS Scheduled PRN Acetaminophen (Tylenol Extra Strength) 500 Mg Tablet, 1,000 MG PO Q6H PRN for MILD/MODERATE PAIN (PS 1-7), (Reported) Acetaminophen (Acetaminophen) 325 Mg Tablet, 650 MG PO Q4H PRN for MILD PAIN or TEMP > 101 Ammonium Lactate (Ammonium Lactate) 12% Cream..g., 1 DOSE TOP DAILY PRN for DRY SKIN, (Reported) APPLY TO FEET Hydromorphone HCl (Dilaudid) 2 Mg Tablet, 2 MG PO Q4H PRN for SEVERE PAIN (PS 8- 10), (Reported) Hydromorphone HCl (Dilaudid) 2 Mg Tablet, 1 MG PO Q6HP PRN for MODERATE PAIN (PS 5-7) Ondansetron HCl (Ondansetron HCl) 4 Mg Tablet, 4 MG PO Q6HP PRN for NAUSEA OR VOMITING Allergies Coded Allergies: [place] (Verified Allergy, Severe, ANAPHYLAXIS, 11/09/14) Penicillins (Verified Allergy, Severe, Anaphylaxis, 02/17/20) HAS RECEIVED 2nd & 3RD GEN CEPHALOSPORINS w/o PROBLEM metformin (Verified Allergy, Severe, Tongue swelling, 07/02/18) tramadol (Verified Allergy, Unknown, 12/18/20) Qkgeuaf-Mul-Xsz Reductase Inhibitor (Verified Adverse Reaction, Intermediate, Altered Mental Status, 07/02/18) codeine (Verified Adverse Reaction, Mild, "out of it". , 02/17/20) mixed with guifenasin duloxetine (Unverified Adverse Reaction, Mild, Nausea and vomiting, 07/02/18) clindamycin (Verified Adverse Reaction, Unknown, DIARRHEA, 02/29/20) MAYELA GOULD MD Jan 31, 2021 19:42
--- NOTE | 2021-02-01 14:33 | DSES ---
ADDENDUM DISCHARGE SUMMARY DATE OF ADMISSION: 12/14/2020 DATE OF DISCHARGE: 01/31/2021 NOTE: This is an Addendum to Discharge Summary dictated by Dr. Brooks. SUBJECTIVE: Patient had no issues overnight. Could not be discharged yesterday due to issues with family unable to take him home. No other issues overnight. Patient feels well this morning currently in dialysis with no new complaints. Urine culture grew out Enterococcus faecalis. Patient is being Levaquin renally dosed. He has had no flank pain. DISCHARGE DIAGNOSES (please add): Enterococcus urinary tract infection. PHYSICAL EXAMINATION ON DISCHARGE: Temperature 98.8, pulse 90, respiratory rate 18, blood pressure 148/80, 95% on room air. General: Patient is awake, alert, oriented, answering questions appropriately, in no distress. Neck: No JVD or thyromegaly. Lungs: Clear to auscultation, no wheezes, rhonchi or rales. Heart: S1 and S2, sinus rhythm. Abdomen: Soft, nontender, nondistended, positive bowel sounds. Extremities: Chronic wounds on the lower extremities. LABORATORY DATA/IMAGING STUDIES/MICROBIOLOGY: Please see the chart. DISCHARGE MEDICATION: Added Levaquin 750 q48h. Time spent on discharge: Thirty minutes
[2021-02-02] MEDS ORDERED: LevoFLOXacin 500 MG TABLET PO SCH (18:00)
== END 2021-01-31 14:32 | disposition home health service (06) | DRG 252 ==
LOC: M ED 14:21 → M ED INP 21:45 → M MSPAV 12-15 02:00
PROVIDERS: ADMIT Internal Medicine; ATTEND General Practice
PROC: 047 Lower Arteries, Dilation (ICD-10-PCS; 2021-01-16)
PROC: 047 Lower Arteries, Dilation (ICD-10-PCS; principal; 2021-01-16 15:30)
DX: I70.203 Unspecified atherosclerosis of native arteries of extremities, bilateral legs (principal); N18.6 End stage renal disease; L97.919 Non-pressure chronic ulcer of unspecified part of right lower leg with unspecified severity; I50.32 Chronic diastolic (congestive) heart failure; I13.2 Hypertensive heart and chronic kidney disease with heart failure and with stage 5 chronic kidney disease, or end stage renal disease; N39.0 Urinary tract infection, site not specified; I69.351 Hemiplegia and hemiparesis following cerebral infarction affecting right dominant side; E87.1 Hypo-osmolality and hyponatremia; L97.929 Non-pressure chronic ulcer of unspecified part of left lower leg with unspecified severity; G31.83 Neurocognitive disorder with Lewy bodies; F02.80 Dementia in other diseases classified elsewhere, unspecified severity, without behavioral disturbance, psychotic disturbance, mood disturbance, and anxiety; Z99.2 Dependence on renal dialysis; I25.10 Atherosclerotic heart disease of native coronary artery without angina pectoris; Z95.5 Presence of coronary angioplasty implant and graft; D63.1 Anemia in chronic kidney disease; E11.22 Type 2 diabetes mellitus with diabetic chronic kidney disease; E11.622 Type 2 diabetes mellitus with other skin ulcer; Z79.01 Long term (current) use of 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s; E66.9 Obesity, unspecified; G47.33 Obstructive sleep apnea (adult) (pediatric); Z79.84 Long term (current) use of oral hypoglycemic drugs; Z79.899 Other long term (current) drug therapy; Z88.0 Allergy status to penicillin; Z88.1 Allergy status to other antibiotic agents; Z88.5 Allergy status to narcotic agent; Z88.8 Allergy status to other drugs, medicaments and biological substances; I27.20 Pulmonary hypertension, unspecified; E78.5 Hyperlipidemia, unspecified; Z89.421 Acquired absence of other right toe(s); Z89.422 Acquired absence of other left toe(s); E87.6 Hypokalemia

== ENCOUNTER → 2021-02-13 | Outpatient (REF) | payer MEDICARE, MEDICAID ==
[~2021-02-13] MED LIST changes: +ASPI-161 PO; +BACT800T5 PO; +LEVO750T13 PO; +ONDA-83 PO; +PREG25CA PO; +QUET1TAB17 PO; +TRIPCAP PO
== END ==
LOC: M SFHCCLAY 15:46
PROVIDERS: ATTEND Family Medicine
DX: T83.511S Infection and inflammatory reaction due to indwelling urethral catheter, sequela (principal); Y84.6 Urinary catheterization as the cause of abnormal reaction of the patient, or of later complication, without mention of misadventure at the time of the procedure

== ENCOUNTER → 2021-03-17 | Outpatient (REF) | payer MEDICARE, MEDICAID ==
[~2021-03-17] MED LIST changes: +AQUAOIN12 TOP; +DESI13CR2 EXT; +NYSTOI TOP; +ZOFR4TAB16 PO; +[UNRECOGNIZED DRUG - CODE] EXT
[2021-03-17 15:48] LABS: BASO # 0.1 10^3/uL (0.0-0.2); BASO % 0.6 % (0.0-1.0); EOS # 0.4 10^3/uL (0.0-0.5); EOS % 5.7 % (0.0-3.0); HEMATOCRIT 25.8 % (42.0-52.0); HEMOGLOBIN 8.2 g/dl (13.5-17.5); LYMPH % 13.1 % (24.0-44.0); MEAN CORPUSCULAR HGB CONC 31.8 g/dl (32.0-36.5); MEAN CORPUSCULAR VOLUME 107.1 fl (80.0-96.0); MONO # 0.7 10^3/uL (0.0-0.8); MONO % 8.7 % (2.0-8.0); NEUTROPHILS # 5.5 10^3/uL (1.5-8.5); NEUTROPHILS % 71.1 % (36.0-66.0); PLATELET COUNT, AUTOMATED 134 10^3/uL (150-450); RED BLOOD COUNT 2.41 10^6/uL (4.30-6.10); WHITE BLOOD COUNT 7.7 10^3/uL (4.0-10.0)
[2021-03-17 16:10] LABS: HEMOGLOBIN A1c 6.4 %
[2021-03-17 16:13] LABS: ALBUMIN 2.5 GM/DL (3.2-5.2); BILIRUBIN,TOTAL 0.6 MG/DL (0.2-1.0); CALCIUM LEVEL 8.3 MG/DL (8.8-10.2); CREATININE FOR GFR 1.89 MG/DL (0.70-1.30); GLOMERULAR FILTRATION RATE 37.1 (>42); TOTAL PROTEIN 6.9 GM/DL (6.4-8.2)
== END ==
LOC: M SFHCCLAY 12:03
PROVIDERS: ATTEND Family Medicine
DX: E11.22 Type 2 diabetes mellitus with diabetic chronic kidney disease (principal); I50.32 Chronic diastolic (congestive) heart failure
CPT/HCPCS: 80053; 83036; 85025; G0463

== ENCOUNTER → 2021-03-20 | Outpatient (CLI) | payer MEDICARE, MEDICAID ==
[~2021-03-20] MED LIST changes: +AQUAOIN12 TP; +CEFP200T PO; +DOXY100T PO; +HYDR28OI7 TP
== END ==
LOC: M CLY 10:36
PROVIDERS: ATTEND Family Medicine
DX: I51.7 Cardiomegaly (principal); R05.9 Cough, unspecified; Z95.1 Presence of aortocoronary bypass graft

== ENCOUNTER 2021-04-10 18:35 | Inpatient (IN) | payer MEDICARE, MEDICAID ==
[~2021-04-10] VITALS: Ht 177.8 cm; Wt 79.8 kg
[~2021-04-10 18:35] MED LIST changes: -AQUAOIN12 TOP; -AQUAOIN12 TP; -CEFP200T PO; -DESI13CR2 EXT; -DOXY100T PO; -HYDR28OI7 TP; -NYSTOI TOP; -ZOFR4TAB16 PO; -[UNRECOGNIZED DRUG - CODE] EXT
[2021-04-10] MEDS ORDERED: LIDOCAINE 2% 5ML JELLY UROJET TOP ONE (19:35)
[2021-04-10 20:15] LABS: BASO % 0.4 % (0.0-1.0); EOS % 0.2 % (0.0-3.0); HEMATOCRIT 25.8 % (42.0-52.0); HEMOGLOBIN 8.3 g/dl (13.5-17.5); LYMPH # 0.5 10^3/uL (1.5-5.0); LYMPH % 4.2 % (24.0-44.0); MEAN CORPUSCULAR HEMOGLOBIN 34.3 pg (27.0-33.0); MEAN CORPUSCULAR HGB CONC 32.2 g/dl (32.0-36.5); MEAN CORPUSCULAR VOLUME 106.6 fl (80.0-96.0); MONO # 0.6 10^3/uL (0.0-0.8); MONO % 5.4 % (2.0-8.0); NEUTROPHILS # 9.7 10^3/uL (1.5-8.5); NEUTROPHILS % 89.2 % (36.0-66.0); PLATELET COUNT, AUTOMATED 208 10^3/uL (150-450); RED BLOOD COUNT 2.42 10^6/uL (4.30-6.10); WHITE BLOOD COUNT 10.8 10^3/uL (4.0-10.0)
[2021-04-10 20:47] LABS: ALBUMIN 2.8 GM/DL (3.2-5.2); BILIRUBIN,DIRECT 0.4 MG/DL (0.0-0.2); BILIRUBIN,TOTAL 0.8 MG/DL (0.2-1.0); CALCIUM LEVEL 8.2 MG/DL (8.8-10.2); CREATININE FOR GFR 3.06 MG/DL (0.70-1.30); GLOMERULAR FILTRATION RATE 21.3 (>42); POTASSIUM SERUM 3.8 MEQ/L (3.5-5.1); THYROID STIMULATING HORMONE 3.37 uIU/ML (0.358-3.740); TOTAL PROTEIN 7.6 GM/DL (6.4-8.2)
[2021-04-10] MEDS ORDERED: CitaloPRAM (CeleXA) 10 MG TABLET PO SCH (21:00)
[2021-04-10 21:03] LABS: RSV AMPLIFICATION NEGATIVE (NEGATIVE)
[2021-04-10] MEDS ORDERED: VANCOMYCIN HCL 1,500 MG in NS 250 ML IV ONE (21:35)
[2021-04-10] MEDS ORDERED: VANCOMYCIN HCL 750 MG, VIAL MATE ADAPTER 1 EACH in NS 250 ML IV ONE ×2 (22:00→23:00)
[2021-04-11] MEDS ORDERED: AQUAOIN12 TOP (00:24)
[2021-04-11] MEDS ORDERED: NYSTOI TOP (00:24)
[2021-04-11] MEDS ORDERED: [UNRECOGNIZED DRUG - CODE] EXT (00:24)
[2021-04-11] MEDS ORDERED: ZOFR4TAB16 PO (00:24)
[2021-04-11] MEDS ORDERED: CITA20TA7 PO (00:24)
[2021-04-11] MEDS ORDERED: DESI13CR2 EXT (00:24)
[2021-04-11] MEDS ORDERED: SANT250O8 TOP (00:24)
[2021-04-11] MEDS ORDERED: HOME MED LIST COMPLETE! XX SCH (00:25)
[2021-04-11] MEDS ORDERED: ONDANSETRON 4 MG TAB PO PRN (00:50)
[2021-04-11] MEDS ORDERED: GLUCOSE 4GM CHEW TABLET PO PRN (01:20)
[2021-04-11] MEDS ORDERED: DEXTROSE 50% 50 ML SYRINGE IV PRN (01:20)
[2021-04-11] MEDS ORDERED: GLUCAGON INJ 1MG VIAL SC PRN (01:20)
[2021-04-11 01:27] LABS: INR 1.55
[2021-04-11 01:32] LABS: MAGNESIUM LEVEL 1.8 MG/DL (1.8-2.4)
[2021-04-11] MEDS: HumaLOG INSULIN (NovoLOG) PER UNIT SC SCH ×5 (01:50→21:00)
[2021-04-11] MEDS: HYDROmorphone 2 MG TAB PO SCH ×4 (06:00→23:47)
[2021-04-11] MEDS: NYSTATIN OINTMENT 15 GM TOP SCH (08:00)
[2021-04-11] MEDS: DIAPER RELIEF PASTE (DESITIN) 60GM TOP SCH (09:00)
[2021-04-11] MEDS: SANTYL OINT 30GM TOP SCH (09:00)
[2021-04-11] MEDS: METOPROLOL TART 50 MG TAB PO SCH ×2 (09:27→21:00)
[2021-04-11] MEDS: PANTOPRAZOLE 40MG TAB (PROTONIX) PO SCH (09:27)
[2021-04-11 09:42] LABS: CALCIUM LEVEL 8.4 MG/DL (8.8-10.2); CREATININE FOR GFR 3.04 MG/DL (0.70-1.30); GLOMERULAR FILTRATION RATE 21.4 (>42); POTASSIUM SERUM 3.5 MEQ/L (3.5-5.1)
[2021-04-11 10:00] LABS: HEMATOCRIT 24.3 % (42.0-52.0); HEMOGLOBIN 7.6 g/dl (13.5-17.5); MEAN CORPUSCULAR HEMOGLOBIN 33.5 pg (27.0-33.0); MEAN CORPUSCULAR HGB CONC 31.3 g/dl (32.0-36.5); PLATELET COUNT, AUTOMATED 191 10^3/uL (150-450); RED BLOOD COUNT 2.27 10^6/uL (4.30-6.10); WHITE BLOOD COUNT 8.9 10^3/uL (4.0-10.0)
[2021-04-11] MEDS ORDERED: CIPROFLOXACIN 400 MG in IV 1 EA IV ONE (10:00)
[2021-04-11] MEDS: **VANCO AFTER HD** MISC XX SCH (16:00)
[2021-04-11] MEDS ORDERED: VANCOMYCIN HCL 1,000 MG, VIAL MATE ADAPTER 1 EACH in NS 250 ML IV SCH ×6 (16:00)
[2021-04-11] MEDS: WARFARIN SOD 4MG TAB PO SCH (18:49)
[2021-04-11 21:00] VITALS: BP 126/62
[2021-04-11] MEDS: MIRALAX *UNIT DOSE* 17GM PACKET PO SCH (21:00)
[2021-04-11] MEDS ORDERED: PERCOCET 5MG/325MG TAB PO PRN (21:20)
[2021-04-11] MEDS ORDERED: MORPHINE 2 MG/ML 1ML VIAL (J2270) IV ONE (21:20)
[2021-04-11] MEDS ORDERED: ACETAMINOPHEN TAB 650MG DOSE (2X325MG) PO PRN (21:20)
[2021-04-12] VITALS (13 sets, daily range): BP systolic 124–160; BP diastolic 60–87
[2021-04-12] MEDS: HYDROmorphone 2 MG TAB PO SCH ×4 (05:23→23:17)
[2021-04-12 05:46] LABS: HEMATOCRIT 23.3 % (42.0-52.0); HEMOGLOBIN 7.4 g/dl (13.5-17.5); MEAN CORPUSCULAR HEMOGLOBIN 33.9 pg (27.0-33.0); MEAN CORPUSCULAR HGB CONC 31.8 g/dl (32.0-36.5); MEAN CORPUSCULAR VOLUME 106.9 fl (80.0-96.0); PLATELET COUNT, AUTOMATED 176 10^3/uL (150-450); RED BLOOD COUNT 2.18 10^6/uL (4.30-6.10); WHITE BLOOD COUNT 8.3 10^3/uL (4.0-10.0)
[2021-04-12 06:07] LABS: CALCIUM LEVEL 8.2 MG/DL (8.8-10.2); CREATININE FOR GFR 3.38 MG/DL (0.70-1.30); POTASSIUM SERUM 3.2 MEQ/L (3.5-5.1)
[2021-04-12] MEDS: HumaLOG INSULIN (NovoLOG) PER UNIT SC SCH ×4 (07:30→21:00)
[2021-04-12] MEDS ORDERED: SODIUM CHLORIDE 0.9% 1000ML IV PRN (07:45)
[2021-04-12] MEDS: DIAPER RELIEF PASTE (DESITIN) 60GM TOP SCH (08:11)
[2021-04-12] MEDS: PANTOPRAZOLE 40MG TAB (PROTONIX) PO SCH (08:11)
[2021-04-12] MEDS: METOPROLOL TART 50 MG TAB PO SCH ×2 (09:00→21:52)
[2021-04-12] MEDS ORDERED: POTASSIUM CHLORIDE 10MEQ SR TABLET PO ONE (10:00)
[2021-04-12] MEDS ORDERED: CIPROFLOXACIN 400 MG in IV 1 EA IV SCH (16:00)
[2021-04-12] MEDS: **VANCO AFTER HD** MISC XX SCH (16:00)
[2021-04-12] MEDS: WARFARIN SOD 4MG TAB PO SCH (17:59)
[2021-04-12 19:31] LABS: HEMATOCRIT 30.5 % (42.0-52.0)
[2021-04-12 19:55] LABS: HEMOGLOBIN 9.7 g/dl (13.5-17.5)
[2021-04-12] MEDS: MIRALAX *UNIT DOSE* 17GM PACKET PO SCH (21:50)
[2021-04-13] VITALS: BP 134/66
[2021-04-13 04:00] VITALS: BP 131/60
[2021-04-13] MEDS: HYDROmorphone 2 MG TAB PO SCH ×4 (05:22→23:46)
[2021-04-13] MEDS: HumaLOG INSULIN (NovoLOG) PER UNIT SC SCH ×4 (07:58→20:56)
[2021-04-13] MEDS: NYSTATIN OINTMENT 15 GM TOP SCH (08:00)
[2021-04-13] MEDS: DIAPER RELIEF PASTE (DESITIN) 60GM TOP SCH (08:13)
[2021-04-13] MEDS: SANTYL OINT 30GM TOP SCH (08:13)
[2021-04-13] MEDS: METOPROLOL TART 50 MG TAB PO SCH ×2 (08:53→20:57)
[2021-04-13] MEDS: PANTOPRAZOLE 40MG TAB (PROTONIX) PO SCH (08:53)
[2021-04-13 09:19] LABS: HEMATOCRIT 29.5 % (42.0-52.0); HEMOGLOBIN 9.4 g/dl (13.5-17.5); MEAN CORPUSCULAR HEMOGLOBIN 33.1 pg (27.0-33.0); MEAN CORPUSCULAR HGB CONC 31.9 g/dl (32.0-36.5); MEAN CORPUSCULAR VOLUME 103.9 fl (80.0-96.0); PLATELET COUNT, AUTOMATED 184 10^3/uL (150-450); RED BLOOD COUNT 2.84 10^6/uL (4.30-6.10); WHITE BLOOD COUNT 8.9 10^3/uL (4.0-10.0)
[2021-04-13 09:36] LABS: INR 1.7; PROTHROMBIN TIME 20.4 SECONDS (12.7-14.5)
[2021-04-13 09:48] LABS: CALCIUM LEVEL 8.4 MG/DL (8.8-10.2); CREATININE FOR GFR 2.28 MG/DL (0.70-1.30); GLOMERULAR FILTRATION RATE 29.9 (>42); POTASSIUM SERUM 4.3 MEQ/L (3.5-5.1); VANCOMYCIN RANDOM 10.8 UG/ML
[2021-04-13 12:00] VITALS: BP 130/60
[2021-04-13] MEDS ORDERED: PERCOCET 5MG/325MG TAB PO PRN (14:05)
[2021-04-13 16:00] VITALS: BP 118/64
[2021-04-13] MEDS: CIPROFLOXACIN 250MG TAB PO SCH (17:36)
[2021-04-13] MEDS: WARFARIN SOD 4MG TAB PO SCH (17:36)
[2021-04-13 20:00] VITALS: BP 127/59
[2021-04-13] MEDS: MIRALAX *UNIT DOSE* 17GM PACKET PO SCH (20:56)
[2021-04-14] VITALS: BP 136/67
[2021-04-14 04:00] VITALS: BP 147/63
[2021-04-14 05:25] LABS: HEMATOCRIT 32.7 % (42.0-52.0); HEMOGLOBIN 10.2 g/dl (13.5-17.5); MEAN CORPUSCULAR HEMOGLOBIN 32.8 pg (27.0-33.0); MEAN CORPUSCULAR HGB CONC 31.2 g/dl (32.0-36.5); MEAN CORPUSCULAR VOLUME 105.1 fl (80.0-96.0); PLATELET COUNT, AUTOMATED 173 10^3/uL (150-450); RED BLOOD COUNT 3.11 10^6/uL (4.30-6.10); WHITE BLOOD COUNT 8.6 10^3/uL (4.0-10.0)
[2021-04-14 05:44] LABS: CALCIUM LEVEL 8.2 MG/DL (8.8-10.2); CREATININE FOR GFR 2.67 MG/DL (0.70-1.30); GLOMERULAR FILTRATION RATE 24.9 (>42); POTASSIUM SERUM 4.6 MEQ/L (3.5-5.1)
[2021-04-14] MEDS: HYDROmorphone 2 MG TAB PO SCH ×4 (05:47→23:50)
[2021-04-14 05:56] LABS: INR 1.53; PROTHROMBIN TIME 18.8 SECONDS (12.7-14.5)
[2021-04-14 07:17] VITALS: BP 163/75
[2021-04-14] MEDS ORDERED: SODIUM CHLORIDE 0.9% 1000ML IV PRN (08:05)
[2021-04-14] MEDS: PANTOPRAZOLE 40MG TAB (PROTONIX) PO SCH (08:21)
[2021-04-14] MEDS: METOPROLOL TART 50 MG TAB PO SCH ×2 (08:21→20:42)
[2021-04-14] MEDS: HumaLOG INSULIN (NovoLOG) PER UNIT SC SCH ×4 (08:29→21:00)
[2021-04-14] MEDS: DIAPER RELIEF PASTE (DESITIN) 60GM TOP SCH (08:29)
[2021-04-14 12:32] VITALS: BP 149/75
[2021-04-14] MEDS: SANTYL OINT 30GM TOP SCH (14:23)
[2021-04-14 18:07] VITALS: BP 160/80
[2021-04-14] MEDS: CIPROFLOXACIN 250MG TAB PO SCH (18:22)
[2021-04-14] MEDS: WARFARIN SOD 4MG TAB PO SCH (18:22)
[2021-04-14 20:00] VITALS: BP 126/58
[2021-04-14] MEDS: MIRALAX *UNIT DOSE* 17GM PACKET PO SCH (20:42)
[2021-04-15] VITALS: BP 155/74
[2021-04-15 04:00] VITALS: BP 135/75
[2021-04-15] MEDS: HYDROmorphone 2 MG TAB PO SCH ×3 (05:26→17:29)
[2021-04-15 05:47] LABS: HEMATOCRIT 33.2 % (42.0-52.0); HEMOGLOBIN 10.5 g/dl (13.5-17.5); MEAN CORPUSCULAR HGB CONC 31.6 g/dl (32.0-36.5); MEAN CORPUSCULAR VOLUME 104.4 fl (80.0-96.0); PLATELET COUNT, AUTOMATED 177 10^3/uL (150-450); RED BLOOD COUNT 3.18 10^6/uL (4.30-6.10); WHITE BLOOD COUNT 8.1 10^3/uL (4.0-10.0)
[2021-04-15 05:54] LABS: INR 1.64; PROTHROMBIN TIME 19.8 SECONDS (12.7-14.5)
[2021-04-15 06:05] LABS: CALCIUM LEVEL 8.7 MG/DL (8.8-10.2); CREATININE FOR GFR 1.97 MG/DL (0.70-1.30); GLOMERULAR FILTRATION RATE 35.4 (>42); POTASSIUM SERUM 4.7 MEQ/L (3.5-5.1)
[2021-04-15 08:00] VITALS: BP 146/75
[2021-04-15] MEDS: METOPROLOL TART 50 MG TAB PO SCH ×2 (08:28→20:51)
[2021-04-15] MEDS: PANTOPRAZOLE 40MG TAB (PROTONIX) PO SCH (08:28)
[2021-04-15] MEDS: HumaLOG INSULIN (NovoLOG) PER UNIT SC SCH ×4 (08:29→20:52)
[2021-04-15] MEDS: DIAPER RELIEF PASTE (DESITIN) 60GM TOP SCH ×2 (08:30→09:00)
[2021-04-15] MEDS: NYSTATIN OINTMENT 15 GM TOP SCH (08:30)
[2021-04-15 11:34] VITALS: BP 123/58
[2021-04-15] MEDS: WARFARIN SOD 4MG TAB PO SCH (17:28)
[2021-04-15] MEDS: CIPROFLOXACIN 250MG TAB PO SCH (17:28)
[2021-04-15 18:58] VITALS: BP 154/84
[2021-04-15 20:00] VITALS: BP 153/82
[2021-04-15] MEDS: MIRALAX *UNIT DOSE* 17GM PACKET PO SCH (20:51)
[2021-04-16] VITALS: BP 148/78
[2021-04-16 04:00] VITALS: BP 149/86
[2021-04-16 06:00] VITALS: BP 152/81
[2021-04-16] MEDS: HYDROmorphone 2 MG TAB PO SCH ×5 (06:00→18:00)
[2021-04-16 06:30] LABS: HEMATOCRIT 32.8 % (42.0-52.0); HEMOGLOBIN 10.4 g/dl (13.5-17.5); MEAN CORPUSCULAR HEMOGLOBIN 33.1 pg (27.0-33.0); MEAN CORPUSCULAR HGB CONC 31.7 g/dl (32.0-36.5); MEAN CORPUSCULAR VOLUME 104.5 fl (80.0-96.0); PLATELET COUNT, AUTOMATED 166 10^3/uL (150-450); RED BLOOD COUNT 3.14 10^6/uL (4.30-6.10); WHITE BLOOD COUNT 8.2 10^3/uL (4.0-10.0)
[2021-04-16 06:45] LABS: CALCIUM LEVEL 8.5 MG/DL (8.8-10.2); CREATININE FOR GFR 2.44 MG/DL (0.70-1.30); GLOMERULAR FILTRATION RATE 27.6 (>42); POTASSIUM SERUM 4.8 MEQ/L (3.5-5.1)
[2021-04-16 07:11] LABS: INR 1.59; PROTHROMBIN TIME 19.4 SECONDS (12.7-14.5)
[2021-04-16] MEDS: HumaLOG INSULIN (NovoLOG) PER UNIT SC SCH ×4 (08:55→21:00)
[2021-04-16] MEDS: PANTOPRAZOLE 40MG TAB (PROTONIX) PO SCH (08:58)
[2021-04-16] MEDS: METOPROLOL TART 50 MG TAB PO SCH ×2 (08:58→21:28)
[2021-04-16] MEDS: SANTYL OINT 30GM TOP SCH (08:59)
[2021-04-16] MEDS: DIAPER RELIEF PASTE (DESITIN) 60GM TOP SCH (08:59)
[2021-04-16 14:00] VITALS: BP 156/70
[2021-04-16] MEDS: CIPROFLOXACIN 250MG TAB PO SCH (18:11)
[2021-04-16] MEDS: WARFARIN SOD 4MG TAB PO SCH (18:11)
[2021-04-16] MEDS: MIRALAX *UNIT DOSE* 17GM PACKET PO SCH (21:28)
[2021-04-17] MEDS: HYDROmorphone 2 MG TAB PO SCH ×4 (00:07→17:28)
[2021-04-17 06:00] VITALS: BP 136/82
[2021-04-17 06:24] LABS: INR 1.67; PROTHROMBIN TIME 20.1 SECONDS (12.7-14.5)
[2021-04-17] MEDS: METOPROLOL TART 50 MG TAB PO SCH ×2 (08:24→20:30)
[2021-04-17] MEDS: DIAPER RELIEF PASTE (DESITIN) 60GM TOP SCH (08:24)
[2021-04-17] MEDS: HumaLOG INSULIN (NovoLOG) PER UNIT SC SCH ×4 (08:24→20:15)
[2021-04-17] MEDS: PANTOPRAZOLE 40MG TAB (PROTONIX) PO SCH (08:24)
[2021-04-17 14:00] VITALS: BP 156/92
[2021-04-17] MEDS: CIPROFLOXACIN 250MG TAB PO SCH (17:27)
[2021-04-17] MEDS: WARFARIN SOD 4MG TAB PO SCH (17:28)
[2021-04-17] MEDS: MIRALAX *UNIT DOSE* 17GM PACKET PO SCH (20:30)
[2021-04-18] MEDS: HYDROmorphone 2 MG TAB PO SCH ×4 (00:15→17:49)
[2021-04-18 06:00] VITALS: BP 168/72
[2021-04-18] MEDS ORDERED: SODIUM CHLORIDE 0.9% 1000ML IV PRN (07:15)
[2021-04-18] MEDS: METOPROLOL TART 50 MG TAB PO SCH ×2 (07:27→21:33)
[2021-04-18] MEDS: HumaLOG INSULIN (NovoLOG) PER UNIT SC SCH ×4 (07:48→21:00)
[2021-04-18] MEDS: PANTOPRAZOLE 40MG TAB (PROTONIX) PO SCH (07:49)
[2021-04-18] MEDS: NYSTATIN OINTMENT 15 GM TOP SCH (07:49)
[2021-04-18] MEDS: SANTYL OINT 30GM TOP SCH ×2 (07:50→19:34)
[2021-04-18] MEDS: DIAPER RELIEF PASTE (DESITIN) 60GM TOP SCH (07:50)
[2021-04-18 09:05] LABS: HEMATOCRIT 31.7 % (42.0-52.0); MEAN CORPUSCULAR HEMOGLOBIN 32.9 pg (27.0-33.0); MEAN CORPUSCULAR HGB CONC 31.5 g/dl (32.0-36.5); MEAN CORPUSCULAR VOLUME 104.3 fl (80.0-96.0); PLATELET COUNT, AUTOMATED 175 10^3/uL (150-450); RED BLOOD COUNT 3.04 10^6/uL (4.30-6.10); WHITE BLOOD COUNT 8.3 10^3/uL (4.0-10.0)
[2021-04-18 10:43] LABS: CREATININE FOR GFR 2.62 MG/DL (0.70-1.30); GLOMERULAR FILTRATION RATE 25.4 (>42); POTASSIUM SERUM 4.6 MEQ/L (3.5-5.1)
[2021-04-18 10:44] LABS: ALBUMIN 2.6 GM/DL (3.2-5.2); CALCIUM LEVEL 8.5 MG/DL (8.8-10.2); PHOSPHORUS LEVEL 2.8 MG/DL (2.5-4.9)
[2021-04-18] MEDS: WARFARIN SOD 4MG TAB PO SCH (17:48)
[2021-04-18] MEDS: MIRALAX *UNIT DOSE* 17GM PACKET PO SCH (21:32)
[2021-04-19] MEDS: HYDROmorphone 2 MG TAB PO SCH ×3 (02:10→13:13)
[2021-04-19 06:00] VITALS: BP 156/72
[2021-04-19 08:55] VITALS: BP 156/72
[2021-04-19] MEDS: METOPROLOL TART 50 MG TAB PO SCH (08:55)
[2021-04-19] MEDS: PANTOPRAZOLE 40MG TAB (PROTONIX) PO SCH (08:55)
[2021-04-19] MEDS: HumaLOG INSULIN (NovoLOG) PER UNIT SC SCH ×2 (08:56→13:13)
[2021-04-19] MEDS: DIAPER RELIEF PASTE (DESITIN) 60GM TOP SCH (08:57)
== END 2021-04-19 15:20 | disposition home or self-care (01) | DRG 871 ==
LOC: M ED 18:35 → M ED INP 22:38 → M PCU 04-11 21:00 → M MSPAV 04-15 18:48
PROVIDERS: ADMIT Family Medicine; ATTEND Internal Medicine Nephrology
PROC: 30233N1 Transfusion of Nonautologous Red Blood Cells into Peripheral Vein, Percutaneous Approach (ICD-10-PCS; principal; 2021-04-12)
DX: A41.9 Sepsis, unspecified organism (principal); N18.6 End stage renal disease; G93.41 Metabolic encephalopathy; N39.0 Urinary tract infection, site not specified; I50.32 Chronic diastolic (congestive) heart failure; E11.52 Type 2 diabetes mellitus with diabetic peripheral angiopathy with gangrene; I96 Gangrene, not elsewhere classified; I69.351 Hemiplegia and hemiparesis following cerebral infarction affecting right dominant side; I27.20 Pulmonary hypertension, unspecified; E11.621 Type 2 diabetes mellitus with foot ulcer; D63.1 Anemia in chronic kidney disease; Z98.41 Cataract extraction status, right eye; Z98.42 Cataract extraction status, left eye; K59.00 Constipation, unspecified; G47.33 Obstructive sleep apnea (adult) (pediatric); Z91.19 Patient's noncompliance with other medical treatment and regimen; I11.0 Hypertensive heart disease with heart failure; I08.0 Rheumatic disorders of both mitral and aortic valves; G31.83 Neurocognitive disorder with Lewy bodies; F02.80 Dementia in other diseases classified elsewhere, unspecified severity, without behavioral disturbance, psychotic disturbance, mood disturbance, and anxiety; I25.10 Atherosclerotic heart disease of native coronary artery without angina pectoris; Z95.1 Presence of aortocoronary bypass graft; I48.91 Unspecified atrial fibrillation; Z79.01 Long term (current) use of 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s; I69.398 Other sequelae of cerebral infarction; K21.9 Gastro-esophageal reflux disease without esophagitis; Z85.820 Personal history of malignant melanoma of skin; Z89.421 Acquired absence of other right toe(s); Z89.422 Acquired absence of other left toe(s); Z79.899 Other long term (current) drug therapy; Z88.0 Allergy status to penicillin; Z91.018 Allergy to other foods; Z88.5 Allergy status to narcotic agent; Z20.828 Contact with and (suspected) exposure to other viral communicable diseases; L97.521 Non-pressure chronic ulcer of other part of left foot limited to breakdown of skin; L97.522 Non-pressure chronic ulcer of other part of left foot with fat layer exposed

== ENCOUNTER 2021-04-30 23:25 | Inpatient (IN) | payer MEDICARE, MEDICAID ==
[~2021-04-30] VITALS: Ht 177.8 cm; Wt 82.8 kg
[~2021-04-30 23:25] MED LIST changes: +AQUAOIN12 TOP; +DESI13CR2 EXT; +NYSTOI TOP; +ZOFR4TAB16 PO; +[UNRECOGNIZED DRUG - CODE] EXT
[2021-05-01 00:20] LABS: ABG BASE EXCESS 0.7 (-2.0-2.0); ABG HCO3 22.5 MEQ/L (22.0-26.0); ABG O2 SATURATION 95.2 % (95.0-99.0); ABG PARTIAL PRESSURE CO2 27.3 mmHg (35.0-45.0); ABG PARTIAL PRESSURE O2 69.6 mmHg (75.0-100.0); ABG TOTAL CO2 23.3 MEQ/L (23.0-31.0); ABG pH (ARTERIAL) 7.533 UNITS (7.350-7.450)
[2021-05-01 00:38] LABS: BASO # 0.1 10^3/uL (0.0-0.2); BASO % 0.5 % (0.0-1.0); EOS # 0.2 10^3/uL (0.0-0.5); EOS % 1.6 % (0.0-3.0); HEMATOCRIT 31.4 % (42.0-52.0); HEMOGLOBIN 9.9 g/dl (13.5-17.5); LYMPH # 0.6 10^3/uL (1.5-5.0); LYMPH % 5.9 % (24.0-44.0); MEAN CORPUSCULAR HEMOGLOBIN 32.1 pg (27.0-33.0); MEAN CORPUSCULAR HGB CONC 31.5 g/dl (32.0-36.5); MEAN CORPUSCULAR VOLUME 101.9 fl (80.0-96.0); MONO # 0.8 10^3/uL (0.0-0.8); MONO % 7.8 % (2.0-8.0); NEUTROPHILS # 8.7 10^3/uL (1.5-8.5); NEUTROPHILS % 83.3 % (36.0-66.0); PLATELET COUNT, AUTOMATED 173 10^3/uL (150-450); RED BLOOD COUNT 3.08 10^6/uL (4.30-6.10); WHITE BLOOD COUNT 10.5 10^3/uL (4.0-10.0)
[2021-05-01] MEDS ORDERED: cefTRIAXone SOD 2 GM in D5W MINI-BAG PLUS 50 ML IV ONE (00:40)
[2021-05-01] MEDS ORDERED: ACETAMINOPHEN TAB 650MG DOSE (2X325MG) PO ONE (00:45)
[2021-05-01 00:53] LABS: INR 1.95; PROTHROMBIN TIME 22.6 SECONDS (12.7-14.5)
[2021-05-01 01:07] LABS: CK-MB VALUE MASS 1.9 NG/ML (<3.6); MB/CK RELATIVE INDEX 6.33 (< OR =4)
[2021-05-01 01:11] LABS: ALBUMIN 2.5 GM/DL (3.2-5.2); BILIRUBIN,DIRECT 0.1 MG/DL (0.0-0.2); BILIRUBIN,TOTAL 0.8 MG/DL (0.2-1.0); CALCIUM LEVEL 8.1 MG/DL (8.8-10.2); CREATININE FOR GFR 2.83 MG/DL (0.70-1.30); GLOMERULAR FILTRATION RATE 23.3 (>42); POTASSIUM SERUM 5.1 MEQ/L (3.5-5.1); TOTAL PROTEIN 7.5 GM/DL (6.4-8.2)
[2021-05-01 02:12] LABS: CK-MB VALUE MASS 1.6 NG/ML (<3.6); MB/CK RELATIVE INDEX 6.15 (< OR =4)
[2021-05-01] MEDS ORDERED: AQUAOIN12 TP (03:42)
[2021-05-01] MEDS ORDERED: HYDR28OI7 TP (03:42)
[2021-05-01] MEDS ORDERED: HOME MED LIST COMPLETE! XX SCH (03:45)
[2021-05-01] MEDS ORDERED: ACETAMINOPHEN TAB 650MG DOSE (2X325MG) PO PRN (04:05)
[2021-05-01] MEDS ORDERED: ALBUTEROL 90 MCG/ACT 8GM HFA INHALER INH PRN (04:05)
[2021-05-01] MEDS ORDERED: guaiFENesin DM LIQ 10ML UD PO PRN (04:40)
[2021-05-01] MEDS ORDERED: DEXTROSE 50% 50 ML SYRINGE IV PRN (04:40)
[2021-05-01] MEDS ORDERED: GLUCOSE 4GM CHEW TABLET PO PRN (04:40)
[2021-05-01] MEDS ORDERED: GLUCAGON INJ 1MG VIAL SC PRN (04:40)
[2021-05-01] MEDS ORDERED: VANCOMYCIN HCL 1,000 MG, VIAL MATE ADAPTER 1 EACH in NS 250 ML IV SCH ×2 (05:25→16:00)
[2021-05-01] MEDS ORDERED: VANCOMYCIN HCL 750 MG, VIAL MATE ADAPTER 1 EACH in NS 250 ML IV ONE ×2 (06:00→07:00)
[2021-05-01] MEDS: HYDROmorphone 2 MG TAB PO SCH ×3 (06:23→19:59)
[2021-05-01 06:50] LABS: HEMATOCRIT 30.2 % (42.0-52.0); HEMOGLOBIN 9.4 g/dl (13.5-17.5); MEAN CORPUSCULAR HEMOGLOBIN 32.2 pg (27.0-33.0); MEAN CORPUSCULAR HGB CONC 31.1 g/dl (32.0-36.5); MEAN CORPUSCULAR VOLUME 103.4 fl (80.0-96.0); PLATELET COUNT, AUTOMATED 164 10^3/uL (150-450); RED BLOOD COUNT 2.92 10^6/uL (4.30-6.10); WHITE BLOOD COUNT 9.9 10^3/uL (4.0-10.0)
[2021-05-01 07:03] LABS: INR 2.07; PROTHROMBIN TIME 23.7 SECONDS (12.7-14.5)
[2021-05-01 07:14] LABS: CALCIUM LEVEL 7.9 MG/DL (8.8-10.2); CREATININE FOR GFR 2.93 MG/DL (0.70-1.30); GLOMERULAR FILTRATION RATE 22.4 (>42); MAGNESIUM LEVEL 2.2 MG/DL (1.8-2.4); POTASSIUM SERUM 3.8 MEQ/L (3.5-5.1)
[2021-05-01] MEDS: HumaLOG INSULIN (NovoLOG) PER UNIT SC SCH ×3 (07:30→17:30)
[2021-05-01] MEDS: DIMETHICONE 2% OINTMENT(VANICREAM) 70GM TUBE TOP SCH (09:00)
[2021-05-01] MEDS ORDERED: NYSTATIN OINTMENT 15 GM TOP SCH (09:00)
[2021-05-01] MEDS ORDERED: HYDROCORTISONE 1% OINTMENT 30GM TOP SCH (09:00)
[2021-05-01] MEDS: DOXYCYCLINE HYCLATE 100MG TABLET PO SCH ×2 (09:56→20:00)
[2021-05-01] MEDS: METOPROLOL TART 50 MG TAB PO SCH ×2 (09:56→20:02)
[2021-05-01] MEDS: PANTOPRAZOLE 40MG TAB (PROTONIX) PO SCH (09:56)
[2021-05-01] MEDS ORDERED: **VANCO AFTER HD** MISC XX SCH (16:00)
[2021-05-01 18:55] VITALS: BP 147/76
[2021-05-01] MEDS ORDERED: WARFARIN SOD 4MG TAB PO SCH (21:00)
[2021-05-01] MEDS ORDERED: HumaLOG INSULIN (NovoLOG) PER UNIT SC SCH (21:00)
[2021-05-01 22:00] VITALS: BP 138/71
[2021-05-01 22:14] VITALS: O2SAT 96
[2021-05-02] MEDS ORDERED: cefTRIAXone SOD 2 GM in D5W MINI-BAG PLUS 50 ML IV SCH (01:00)
[2021-05-02] MEDS: HYDROmorphone 2 MG TAB PO SCH ×3 (01:11→12:00)
[2021-05-02 06:00] VITALS: BP 119/64
[2021-05-02] MEDS: PANTOPRAZOLE 40MG TAB (PROTONIX) PO SCH (06:32)
[2021-05-02] MEDS: DOXYCYCLINE HYCLATE 100MG TABLET PO SCH (06:32)
[2021-05-02 06:48] LABS: HEMATOCRIT 30.4 % (42.0-52.0); HEMOGLOBIN 9.7 g/dl (13.5-17.5); MEAN CORPUSCULAR HEMOGLOBIN 32.6 pg (27.0-33.0); MEAN CORPUSCULAR HGB CONC 31.9 g/dl (32.0-36.5); PLATELET COUNT, AUTOMATED 174 10^3/uL (150-450); RED BLOOD COUNT 2.98 10^6/uL (4.30-6.10); WHITE BLOOD COUNT 8.1 10^3/uL (4.0-10.0)
[2021-05-02 07:08] LABS: INR 2.52; PROTHROMBIN TIME 27.5 SECONDS (12.7-14.5)
[2021-05-02 07:11] LABS: CALCIUM LEVEL 8.8 MG/DL (8.8-10.2); CREATININE FOR GFR 2.89 MG/DL (0.70-1.30); GLOMERULAR FILTRATION RATE 22.7 (>42); MAGNESIUM LEVEL 2.2 MG/DL (1.8-2.4); POTASSIUM SERUM 3.5 MEQ/L (3.5-5.1); VANCOMYCIN RANDOM 17.5 UG/ML
[2021-05-02] MEDS: HumaLOG INSULIN (NovoLOG) PER UNIT SC SCH ×2 (07:30→12:00)
[2021-05-02] MEDS ORDERED: LIDOCAINE 1% SDV 5ML VIAL SC PRN (07:50)
[2021-05-02] MEDS ORDERED: SODIUM CHLORIDE 0.9% 1000ML IV PRN (07:50)
[2021-05-02 08:01] VITALS: BP 127/67
[2021-05-02] MEDS: METOPROLOL TART 50 MG TAB PO SCH (08:01)
[2021-05-02] MEDS: DIMETHICONE 2% OINTMENT(VANICREAM) 70GM TUBE TOP SCH (08:02)
[2021-05-02] MEDS ORDERED: SANTYL OINT 30GM TOP SCH (09:00)
[2021-05-02] MEDS ORDERED: DOXY100T PO (13:45)
[2021-05-02] MEDS ORDERED: CEFP200T PO (13:45)
[2021-05-02 14:00] VITALS: BP 130/65
== END 2021-05-02 16:50 | disposition home or self-care (01) | DRG 193 ==
LOC: M ED 23:25 → M ED INP 05-01 04:05 → ENRESERV 05-01 15:05 → M MSPAV 05-01 18:50
PROVIDERS: ADMIT Internal Medicine; ATTEND Internal Medicine
PROC: 5A1D70Z Performance of Urinary Filtration, Intermittent, Less than 6 Hours Per Day (ICD-10-PCS; principal; 2021-05-01)
DX: J18.9 Pneumonia, unspecified organism (principal); N18.6 End stage renal disease; E11.52 Type 2 diabetes mellitus with diabetic peripheral angiopathy with gangrene; I13.2 Hypertensive heart and chronic kidney disease with heart failure and with stage 5 chronic kidney disease, or end stage renal disease; I50.9 Heart failure, unspecified; I15.9 Secondary hypertension, unspecified; I48.91 Unspecified atrial fibrillation; E11.22 Type 2 diabetes mellitus with diabetic chronic kidney disease; G31.83 Neurocognitive disorder with Lewy bodies; K21.9 Gastro-esophageal reflux disease without esophagitis; I35.0 Nonrheumatic aortic (valve) stenosis; Z95.2 Presence of prosthetic heart valve; I25.10 Atherosclerotic heart disease of native coronary artery without angina pectoris; Z79.01 Long term (current) use of 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s; Z79.899 Other long term (current) drug therapy; Z88.0 Allergy status to penicillin; Z91.018 Allergy to other foods; Z88.5 Allergy status to narcotic agent; Z86.73 Personal history of transient ischemic attack (TIA), and cerebral infarction without residual deficits; Z98.41 Cataract extraction status, right eye; Z98.42 Cataract extraction status, left eye; Z85.828 Personal history of other malignant neoplasm of skin; E87.6 Hypokalemia

== ENCOUNTER 2021-05-10 12:00 | Emergency (ER) | payer MEDICAID, MEDICARE ==
[~2021-05-10] VITALS: Ht 177.8 cm; Wt 76.4 kg
[~2021-05-10 12:00] MED LIST changes: +AQUAOIN12 TP; +CEFP200T PO; +DOXY100T PO; +HYDR28OI7 TP
[2021-05-10 12:43] LABS: BASO % 0.2 % (0.0-1.0); EOS # 0.1 10^3/uL (0.0-0.5); EOS % 2.6 % (0.0-3.0); HEMATOCRIT 32.8 % (42.0-52.0); HEMOGLOBIN 10.2 g/dl (13.5-17.5); LYMPH # 0.8 10^3/uL (1.5-5.0); LYMPH % 17.8 % (24.0-44.0); MEAN CORPUSCULAR HEMOGLOBIN 31.6 pg (27.0-33.0); MEAN CORPUSCULAR HGB CONC 31.1 g/dl (32.0-36.5); MEAN CORPUSCULAR VOLUME 101.5 fl (80.0-96.0); MONO # 0.5 10^3/uL (0.0-0.8); MONO % 11.3 % (2.0-8.0); NEUTROPHILS # 3.1 10^3/uL (1.5-8.5); NEUTROPHILS % 67.7 % (36.0-66.0); PLATELET COUNT, AUTOMATED 118 10^3/uL (150-450); RED BLOOD COUNT 3.23 10^6/uL (4.30-6.10); WHITE BLOOD COUNT 4.6 10^3/uL (4.0-10.0)
[2021-05-10 13:26] LABS: ALBUMIN 2.6 GM/DL (3.2-5.2); BILIRUBIN,DIRECT 0.3 MG/DL (0.0-0.2); BILIRUBIN,TOTAL 0.5 MG/DL (0.2-1.0); CALCIUM LEVEL 8.3 MG/DL (8.8-10.2); CREATININE FOR GFR 2.31 MG/DL (0.70-1.30); GLOMERULAR FILTRATION RATE 29.4 (>42); POTASSIUM SERUM 4.2 MEQ/L (3.5-5.1); THYROID STIMULATING HORMONE 4.82 uIU/ML (0.358-3.740); TOTAL PROTEIN 7.6 GM/DL (6.4-8.2)
[2021-05-10 13:29] LABS: RSV AMPLIFICATION NEGATIVE (NEGATIVE)
[2021-05-10 15:15] VITALS: BP 135/70
== END 2021-05-10 15:47 | disposition home or self-care (01) ==
LOC: EDBD 12:00 → M ED 12:00
DX: U07.1 COVID-19 (principal); R53.1 Weakness; I50.9 Heart failure, unspecified; I25.2 Old myocardial infarction; E11.9 Type 2 diabetes mellitus without complications; I10 Essential (primary) hypertension; N18.30 Chronic kidney disease, stage 3 unspecified; E78.5 Hyperlipidemia, unspecified; Z95.1 Presence of aortocoronary bypass graft; Z79.01 Long term (current) use of 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s; Z79.899 Other long term (current) drug therapy; Z91.018 Allergy to other foods; Z88.0 Allergy status to penicillin; Z88.8 Allergy status to other drugs, medicaments and biological substances; Z88.1 Allergy status to other antibiotic agents; Z88.5 Allergy status to narcotic agent

== ENCOUNTER → 2021-05-31 | Outpatient (REF) | payer MEDICARE, MEDICAID ==
[~2021-05-31] MED LIST changes: -AQUAOIN12 TP; +WARF4TAB52 PO
[2021-05-31 17:58] LABS: APPEARANCE, URINE MANUAL TURBID (CLEAR)
[2021-05-31 17:59] LABS: BILIRUBIN, URINE MANUAL NEGATIVE (NEGATIVE); BLOOD URINE MANUAL POSITIVE (NEGATIVE); COLOR, URINE MANUAL AMBER (YELLOW); GLUCOSE, URINE (UA) MANUAL NEGATIVE (NEGATIVE); KETONE, URINE MANUAL NEGATIVE (NEGATIVE); LEUKOCYTE ESTERASE, URINE MAN POSITIVE (NEGATIVE); NITRITE, URINE MANUAL NEGATIVE (NEGATIVE); PROTEIN, URINE MANUAL 3+ mg/dL (NEGATIVE); UROBILINOGEN, URINE MANUAL NORMAL (NORMAL)
[2021-05-31 18:09] LABS: WBC, URINE TNTC /hpf (0-3)
[2021-05-31 18:10] LABS: BACTERIA, URINE MOD AMOUNT; HYALINE CAST, URINE NONE SEEN /lpf (0-1); RBC, URINE 30-40 /hpf (0-3); SQUAMOUS EPITHELIAL CELL URINE NONE SEEN /hpf (SMALL AMT)
== END ==
LOC: M SMT 16:48
PROVIDERS: ATTEND Nurse Practitioner Women's Health
DX: R33.9 Retention of urine, unspecified (principal)

== ENCOUNTER 2021-06-12 18:07 | Inpatient (IN) | payer MEDICAID, MEDICARE, OTHER ==
[~2021-06-12] VITALS: Ht 177.8 cm; Wt 65.8 kg
[~2021-06-12 18:07] MED LIST changes: -WARF4TAB52 PO
[2021-06-12 21:07] LABS: BASO # 0.1 10^3/uL (0.0-0.2); BASO % 0.4 % (0.0-1.0); EOS # 0.1 10^3/uL (0.0-0.5); EOS % 0.6 % (0.0-3.0); HEMATOCRIT 28.7 % (42.0-52.0); HEMOGLOBIN 9.1 g/dl (13.5-17.5); LYMPH # 0.9 10^3/uL (1.5-5.0); LYMPH % 7.4 % (24.0-44.0); MEAN CORPUSCULAR HEMOGLOBIN 31.2 pg (27.0-33.0); MEAN CORPUSCULAR HGB CONC 31.7 g/dl (32.0-36.5); MEAN CORPUSCULAR VOLUME 98.3 fl (80.0-96.0); MONO # 0.8 10^3/uL (0.0-0.8); MONO % 6.3 % (2.0-8.0); NEUTROPHILS # 10.6 10^3/uL (1.5-8.5); NEUTROPHILS % 84.6 % (36.0-66.0); PLATELET COUNT, AUTOMATED 239 10^3/uL (150-450); RED BLOOD COUNT 2.92 10^6/uL (4.30-6.10); WHITE BLOOD COUNT 12.5 10^3/uL (4.0-10.0)
[2021-06-12 21:28] LABS: ERYTHROCYTE SEDIMENTATION RATE 128 mm/hr (0-20)
[2021-06-12 21:41] LABS: ALBUMIN 2.4 GM/DL (3.2-5.2); C REACTIVE PROTEIN QUANTITATIV 21.3 MG/DL (0.00-0.30); CALCIUM LEVEL 8.2 MG/DL (8.8-10.2); CREATININE FOR GFR 4.98 MG/DL (0.70-1.30); GLOMERULAR FILTRATION RATE 12.1 (>42); MAGNESIUM LEVEL 1.8 MG/DL (1.8-2.4); POTASSIUM SERUM 3.9 MEQ/L (3.5-5.1); TOTAL PROTEIN 7.7 GM/DL (6.4-8.2)
[2021-06-12] MEDS ORDERED: HYDROMORPHONE HCL 0.5 MG/ 0.5 ML SYRINGE (J1170 PER 1) IV ONE (22:45)
[2021-06-13] MEDS ORDERED: VANCOMYCIN HCL 1,000 MG in IV FLUID PLACE HOLDER 1 EA IV SCH (00:50)
[2021-06-13] MEDS ORDERED: DEXTROSE 50% 50 ML SYRINGE IV PRN (01:10)
[2021-06-13] MEDS ORDERED: GLUCOSE 4GM CHEW TABLET PO PRN (01:10)
[2021-06-13] MEDS ORDERED: GLUCAGON INJ 1MG VIAL SC PRN (01:10)
[2021-06-13] MEDS: cefTRIAXone SOD 2 GM in D5W MINI-BAG PLUS 50 ML IV SCH (02:00)
[2021-06-13] MEDS ORDERED: VANCOMYCIN HCL 1,000 MG, VIAL MATE ADAPTER 1 EACH in NS 250 ML IV ONE (03:00)
[2021-06-13] MEDS ORDERED: ALBUTEROL 90 MCG/ACT 8GM HFA INHALER INH PRN (03:15)
[2021-06-13] MEDS ORDERED: FLUCONAZOLE 100 MG TAB PO ONE (05:00)
[2021-06-13] MEDS ORDERED: WARF4TAB52 PO (06:44)
[2021-06-13] MEDS ORDERED: [UNRECOGNIZED DRUG - CODE] EXT (06:46)
[2021-06-13] MEDS ORDERED: HOME MED LIST COMPLETE! XX SCH (06:50)
[2021-06-13 07:32] LABS: RSV AMPLIFICATION NEGATIVE (NEGATIVE)
[2021-06-13] MEDS: HYDROmorphone 2 MG TAB PO SCH ×4 (08:00→20:52)
[2021-06-13] MEDS: HumaLOG INSULIN (NovoLOG) PER UNIT SC SCH ×4 (08:15→21:00)
[2021-06-13 08:25] LABS: HEMATOCRIT 28.1 % (42.0-52.0); HEMOGLOBIN 8.9 g/dl (13.5-17.5); MEAN CORPUSCULAR HEMOGLOBIN 31.3 pg (27.0-33.0); MEAN CORPUSCULAR HGB CONC 31.7 g/dl (32.0-36.5); MEAN CORPUSCULAR VOLUME 98.9 fl (80.0-96.0); PLATELET COUNT, AUTOMATED 201 10^3/uL (150-450); RED BLOOD COUNT 2.84 10^6/uL (4.30-6.10); WHITE BLOOD COUNT 11.4 10^3/uL (4.0-10.0)
[2021-06-13] MEDS ORDERED: SODIUM CHLORIDE 0.9% 1000ML IV PRN ×2 (08:30→11:20)
[2021-06-13] MEDS ORDERED: LIDOCAINE 1% SDV 5ML VIAL SC PRN (08:30)
[2021-06-13 08:42] LABS: INR 1.88
[2021-06-13 08:53] LABS: CALCIUM LEVEL 8.1 MG/DL (8.8-10.2); CREATININE FOR GFR 5.35 MG/DL (0.70-1.30); GLOMERULAR FILTRATION RATE 11.2 (>42); MAGNESIUM LEVEL 1.8 MG/DL (1.8-2.4); POTASSIUM SERUM 3.8 MEQ/L (3.5-5.1); VANCOMYCIN RANDOM 18.7 UG/ML
[2021-06-13] MEDS: PANTOPRAZOLE 40MG TAB (PROTONIX) PO SCH (09:00)
[2021-06-13] MEDS ORDERED: NYSTATIN OINTMENT 15 GM TOP SCH (09:00)
[2021-06-13] MEDS: METOPROLOL TART 50 MG TAB PO SCH ×2 (09:29→20:51)
[2021-06-13 09:42] VITALS: BP 131/63
[2021-06-13] MEDS ORDERED: VANCOMYCIN HCL 1,000 MG, VIAL MATE ADAPTER 1 EACH in NS 250 ML IV SCH (12:00)
[2021-06-13] MEDS: WARFARIN SOD 4MG TAB PO SCH (15:47)
[2021-06-13] MEDS ORDERED: FLUCONAZOLE 40MG/ML ORAL SUSP 35ML **DRAW UP EXACT DOSE PO SCH (16:00)
[2021-06-13] MEDS ORDERED: FLUCONAZOLE 50MG TABLET PO SCH (16:00)
[2021-06-13] MEDS ORDERED: **VANCO AFTER HD** MISC XX SCH (16:00)
[2021-06-13] MEDS ORDERED: KETOROLAC 30 MG/ML 1ML VIAL IV ONE (18:00)
[2021-06-13 20:38] VITALS: BP 118/56
[2021-06-13] MEDS ORDERED: FLUCONAZOLE 100 MG TAB PO SCH (21:00)
[2021-06-14] MEDS: cefTRIAXone SOD 2 GM in D5W MINI-BAG PLUS 50 ML IV SCH (00:54)
[2021-06-14] MEDS: HYDROmorphone 2 MG TAB PO SCH ×6 (00:55→20:20)
[2021-06-14 06:06] LABS: BASO # 0.1 10^3/uL (0.0-0.2); BASO % 0.5 % (0.0-1.0); EOS # 0.4 10^3/uL (0.0-0.5); EOS % 4.2 % (0.0-3.0); HEMATOCRIT 25.9 % (42.0-52.0); HEMOGLOBIN 8.2 g/dl (13.5-17.5); LYMPH # 0.8 10^3/uL (1.5-5.0); LYMPH % 7.2 % (24.0-44.0); MEAN CORPUSCULAR HEMOGLOBIN 31.1 pg (27.0-33.0); MEAN CORPUSCULAR HGB CONC 31.7 g/dl (32.0-36.5); MEAN CORPUSCULAR VOLUME 98.1 fl (80.0-96.0); MONO # 0.7 10^3/uL (0.0-0.8); MONO % 6.6 % (2.0-8.0); NEUTROPHILS # 8.5 10^3/uL (1.5-8.5); NEUTROPHILS % 80.9 % (36.0-66.0); PLATELET COUNT, AUTOMATED 197 10^3/uL (150-450); RED BLOOD COUNT 2.64 10^6/uL (4.30-6.10); WHITE BLOOD COUNT 10.5 10^3/uL (4.0-10.0)
[2021-06-14 06:50] LABS: C REACTIVE PROTEIN QUANTITATIV 21.4 MG/DL (0.00-0.30); CALCIUM LEVEL 7.5 MG/DL (8.8-10.2); CREATININE FOR GFR 2.92 MG/DL (0.70-1.30); GLOMERULAR FILTRATION RATE 22.5 (>42); MAGNESIUM LEVEL 1.9 MG/DL (1.8-2.4); POTASSIUM SERUM 3.5 MEQ/L (3.5-5.1)
[2021-06-14 08:36] LABS: INR 2.14; PROTHROMBIN TIME 24.3 SECONDS (12.7-14.5)
[2021-06-14] MEDS: METOPROLOL TART 50 MG TAB PO SCH ×3 (09:05→20:21)
[2021-06-14] MEDS: HumaLOG INSULIN (NovoLOG) PER UNIT SC SCH ×4 (09:05→20:12)
[2021-06-14] MEDS: PANTOPRAZOLE 40MG TAB (PROTONIX) PO SCH (09:06)
[2021-06-14] MEDS: NYSTATIN 100,000 UNITS/GM TOPICAL PWD 15 GM TOP SCH ×2 (09:08→20:20)
[2021-06-14] MEDS ORDERED: DOXYCYCLINE HYCLATE 100 MG in D5W MINI-BAG PLUS 100 ML IV SCH (10:00)
[2021-06-14] MEDS: DOXYCYCLINE HYCLATE 100MG TABLET PO SCH ×2 (11:50→20:17)
[2021-06-14] MEDS: ACETAMINOPHEN TAB 650MG DOSE (2X325MG) PO PRN (13:00)
[2021-06-14 13:22] VITALS: BP 105/54
[2021-06-14 14:30] LABS: RSV AMPLIFICATION NEGATIVE (NEGATIVE)
[2021-06-14] MEDS: WARFARIN SOD 4MG TAB PO SCH (16:58)
[2021-06-14] MEDS: WARFARIN SOD 1MG TAB PO SCH (17:26)
[2021-06-14 21:00] VITALS: BP 99/51
[2021-06-15] MEDS: HYDROmorphone 2 MG TAB PO SCH ×8 (00:19→23:25)
[2021-06-15 00:36] VITALS: O2SAT 96
[2021-06-15] MEDS ORDERED: cefTRIAXone SOD 1 GM in D5W MINI-BAG PLUS 50 ML IV SCH (01:00)
[2021-06-15 05:47] VITALS: BP 129/70
[2021-06-15] MEDS ORDERED: LIDOCAINE 1% SDV 5ML VIAL SC PRN (06:00)
[2021-06-15] MEDS ORDERED: SODIUM CHLORIDE 0.9% 1000ML IV PRN (06:00)
[2021-06-15 06:40] LABS: BASO # 0.1 10^3/uL (0.0-0.2); BASO % 0.5 % (0.0-1.0); EOS # 0.5 10^3/uL (0.0-0.5); EOS % 4.2 % (0.0-3.0); HEMATOCRIT 27.4 % (42.0-52.0); HEMOGLOBIN 8.5 g/dl (13.5-17.5); LYMPH # 0.8 10^3/uL (1.5-5.0); MEAN CORPUSCULAR HEMOGLOBIN 30.8 pg (27.0-33.0); MEAN CORPUSCULAR VOLUME 99.3 fl (80.0-96.0); MONO # 0.7 10^3/uL (0.0-0.8); MONO % 6.6 % (2.0-8.0); PLATELET COUNT, AUTOMATED 210 10^3/uL (150-450); RED BLOOD COUNT 2.76 10^6/uL (4.30-6.10)
[2021-06-15 06:54] LABS: INR 2.4; PROTHROMBIN TIME 26.5 SECONDS (12.7-14.5)
[2021-06-15 07:19] LABS: C REACTIVE PROTEIN QUANTITATIV 20.6 MG/DL (0.00-0.30); CALCIUM LEVEL 7.7 MG/DL (8.8-10.2); CREATININE FOR GFR 4.21 MG/DL (0.70-1.30); GLOMERULAR FILTRATION RATE 14.7 (>42); MAGNESIUM LEVEL 1.9 MG/DL (1.8-2.4); PHOSPHORUS LEVEL 4.8 MG/DL (2.5-4.9); POTASSIUM SERUM 4.1 MEQ/L (3.5-5.1)
[2021-06-15] MEDS: PANTOPRAZOLE 40MG TAB (PROTONIX) PO SCH (08:47)
[2021-06-15] MEDS: METOPROLOL TART 50 MG TAB PO SCH ×2 (08:48→21:52)
[2021-06-15] MEDS: DOXYCYCLINE HYCLATE 100MG TABLET PO SCH ×2 (08:48→21:53)
[2021-06-15] MEDS: HumaLOG INSULIN (NovoLOG) PER UNIT SC SCH ×4 (08:49→21:45)
[2021-06-15] MEDS ORDERED: E-Z-PAQUE 96% w/w SUSP 176GM BTL As Ordered ONE (10:38)
[2021-06-15] MEDS ORDERED: VARIBAR PUDDING 40% w/v 230ML TUBE As Ordered ONE (10:38)
[2021-06-15] MEDS ORDERED: VARIBAR NECTAR 40% w/v 240ML SUSP BTL As Ordered ONE (10:38)
[2021-06-15] MEDS ORDERED: BARIUM SULFATE 700 MG TABLET (E-Z-DISK) As Ordered ONE (10:39)
[2021-06-15] MEDS: NYSTATIN 100,000 UNITS/GM TOPICAL PWD 15 GM TOP SCH ×2 (12:37→21:53)
[2021-06-15] MEDS ORDERED: QUEtiapine FUMARATE 25 MG TAB PO PRN (16:30)
[2021-06-15] MEDS: WARFARIN SOD 1MG TAB PO SCH (17:10)
[2021-06-15] MEDS: WARFARIN SOD 4MG TAB PO SCH (17:10)
[2021-06-15] MEDS ORDERED: QUEtiapine FUMARATE 25 MG TAB PO ONE (18:20)
[2021-06-15] MEDS ORDERED: OLANZapine INTRAMUSCULAR 10MG VIAL IM ONE (21:00)
[2021-06-15] MEDS: CEFDINIR 300 MG CAP (OMNICEF) PO SCH (21:52)
[2021-06-16] MEDS ORDERED: diphenhydrAMINE 50MG/ML VIAL (J1200) IV ONE
[2021-06-16] MEDS: HYDROmorphone 2 MG TAB PO SCH ×5 (04:36→21:48)
[2021-06-16] MEDS: DOXYCYCLINE HYCLATE 100MG TABLET PO SCH ×2 (08:53→21:48)
[2021-06-16] MEDS: HumaLOG INSULIN (NovoLOG) PER UNIT SC SCH ×4 (08:54→21:00)
[2021-06-16] MEDS: PANTOPRAZOLE 40MG TAB (PROTONIX) PO SCH (08:54)
[2021-06-16] MEDS: NYSTATIN 100,000 UNITS/GM TOPICAL PWD 15 GM TOP SCH ×2 (09:02→21:51)
[2021-06-16] MEDS: METOPROLOL TART 50 MG TAB PO SCH ×2 (10:13→21:50)
[2021-06-16 13:19] LABS: BASO % 0.3 % (0.0-1.0); EOS # 0.2 10^3/uL (0.0-0.5); EOS % 1.9 % (0.0-3.0); HEMATOCRIT 28.6 % (42.0-52.0); LYMPH # 0.7 10^3/uL (1.5-5.0); LYMPH % 6.5 % (24.0-44.0); MEAN CORPUSCULAR HGB CONC 31.5 g/dl (32.0-36.5); MEAN CORPUSCULAR VOLUME 98.6 fl (80.0-96.0); MONO # 0.8 10^3/uL (0.0-0.8); MONO % 6.5 % (2.0-8.0); NEUTROPHILS # 9.6 10^3/uL (1.5-8.5); NEUTROPHILS % 84.1 % (36.0-66.0); PLATELET COUNT, AUTOMATED 234 10^3/uL (150-450); WHITE BLOOD COUNT 11.5 10^3/uL (4.0-10.0)
[2021-06-16 13:29] LABS: INR 2.94
[2021-06-16] MEDS ORDERED: cefTRIAXone SOD 1 GM in D5W MINI-BAG PLUS 50 ML IV ONE (13:35)
[2021-06-16 13:52] LABS: CALCIUM LEVEL 8.3 MG/DL (8.8-10.2); CREATININE FOR GFR 3.81 MG/DL (0.70-1.30); GLOMERULAR FILTRATION RATE 16.5 (>42); MAGNESIUM LEVEL 1.9 MG/DL (1.8-2.4); POTASSIUM SERUM 4.1 MEQ/L (3.5-5.1)
[2021-06-16] MEDS: WARFARIN SOD 1MG TAB PO SCH (16:12)
[2021-06-16] MEDS: WARFARIN SOD 4MG TAB PO SCH (16:12)
[2021-06-16] MEDS: ACETAMINOPHEN TAB 650MG DOSE (2X325MG) PO PRN (21:47)
[2021-06-16] MEDS: RAMELTEON 8 MG TAB (ROZEREM) PO PRN (21:48)
[2021-06-17] MEDS: PANTOPRAZOLE 40MG TAB (PROTONIX) PO SCH (04:18)
[2021-06-17] MEDS: HYDROmorphone 2 MG TAB PO SCH ×7 (04:18→23:42)
[2021-06-17] MEDS: DOXYCYCLINE HYCLATE 100MG TABLET PO SCH ×2 (04:18→20:28)
[2021-06-17 04:22] VITALS: BP 105/58
[2021-06-17 06:13] LABS: BASO % 0.4 % (0.0-1.0); EOS # 0.4 10^3/uL (0.0-0.5); HEMATOCRIT 27.4 % (42.0-52.0); HEMOGLOBIN 8.6 g/dl (13.5-17.5); LYMPH % 10.8 % (24.0-44.0); MEAN CORPUSCULAR HEMOGLOBIN 31.3 pg (27.0-33.0); MEAN CORPUSCULAR HGB CONC 31.4 g/dl (32.0-36.5); MEAN CORPUSCULAR VOLUME 99.6 fl (80.0-96.0); MONO # 0.7 10^3/uL (0.0-0.8); MONO % 7.8 % (2.0-8.0); NEUTROPHILS # 7.1 10^3/uL (1.5-8.5); PLATELET COUNT, AUTOMATED 211 10^3/uL (150-450); RED BLOOD COUNT 2.75 10^6/uL (4.30-6.10); WHITE BLOOD COUNT 9.3 10^3/uL (4.0-10.0)
[2021-06-17 06:25] LABS: INR 3.27; PROTHROMBIN TIME 33.6 SECONDS (12.7-14.5)
[2021-06-17 06:39] LABS: BLOOD UREA NITROGEN 35 MG/DL (7-18); CALCIUM LEVEL 7.7 MG/DL (8.8-10.2); CARBON DIOXIDE LEVEL 30 MEQ/L (21-32); CHLORIDE LEVEL 100 MEQ/L (98-107); CREATININE FOR GFR 4.62 MG/DL (0.70-1.30); GLOMERULAR FILTRATION RATE 13.2 (>42); GLUCOSE, FASTING 146 MG/DL (70-100); MAGNESIUM LEVEL 1.9 MG/DL (1.8-2.4); POTASSIUM SERUM 3.7 MEQ/L (3.5-5.1); SODIUM LEVEL 136 MEQ/L (136-145)
[2021-06-17] MEDS ORDERED: SODIUM CHLORIDE 0.9% 1000ML IV PRN (06:50)
[2021-06-17] MEDS ORDERED: LIDOCAINE 1% SDV 5ML VIAL SC PRN (06:50)
[2021-06-17] MEDS ORDERED: DARBEPOETIN 100 MCG/0.5 ML *DIALYSIS* SYRINGE (J0882) IV SCH (07:05)
[2021-06-17] MEDS: HumaLOG INSULIN (NovoLOG) PER UNIT SC SCH ×4 (07:34→21:00)
[2021-06-17] MEDS ORDERED: DARBEPOETIN 200MCG/0.4ML *DIALYSIS* SYRINGE (J0882 PER 1MCG) IV SCH (07:55)
[2021-06-17] MEDS: METOPROLOL TART 50 MG TAB PO SCH ×2 (09:00→20:28)
[2021-06-17] MEDS: NYSTATIN 100,000 UNITS/GM TOPICAL PWD 15 GM TOP SCH ×2 (11:30→20:29)
[2021-06-17] MEDS: RAMELTEON 8 MG TAB (ROZEREM) PO PRN (20:27)
[2021-06-17] MEDS: CEFDINIR 300 MG CAP (OMNICEF) PO SCH (20:28)
[2021-06-18] MEDS: HYDROmorphone 2 MG TAB PO SCH ×5 (04:15→20:05)
[2021-06-18 04:16] VITALS: BP 121/67
[2021-06-18 07:35] LABS: BASO # 0.1 10^3/uL (0.0-0.2); BASO % 0.5 % (0.0-1.0); EOS # 0.4 10^3/uL (0.0-0.5); HEMATOCRIT 28.2 % (42.0-52.0); HEMOGLOBIN 8.6 g/dl (13.5-17.5); LYMPH # 1.3 10^3/uL (1.5-5.0); LYMPH % 10.7 % (24.0-44.0); MEAN CORPUSCULAR HEMOGLOBIN 30.8 pg (27.0-33.0); MEAN CORPUSCULAR HGB CONC 30.5 g/dl (32.0-36.5); MEAN CORPUSCULAR VOLUME 101.1 fl (80.0-96.0); MONO # 0.8 10^3/uL (0.0-0.8); MONO % 7.1 % (2.0-8.0); NEUTROPHILS # 9.1 10^3/uL (1.5-8.5); NEUTROPHILS % 77.7 % (36.0-66.0); PLATELET COUNT, AUTOMATED 223 10^3/uL (150-450); RED BLOOD COUNT 2.79 10^6/uL (4.30-6.10); WHITE BLOOD COUNT 11.8 10^3/uL (4.0-10.0)
[2021-06-18 07:46] LABS: INR 3.32
[2021-06-18 07:58] LABS: C REACTIVE PROTEIN QUANTITATIV 15.3 MG/DL (0.00-0.30); CALCIUM LEVEL 7.8 MG/DL (8.8-10.2); CREATININE FOR GFR 3.47 MG/DL (0.70-1.30); GLOMERULAR FILTRATION RATE 18.4 (>42); MAGNESIUM LEVEL 1.8 MG/DL (1.8-2.4); POTASSIUM SERUM 4.3 MEQ/L (3.5-5.1)
[2021-06-18] MEDS: DOXYCYCLINE HYCLATE 100MG TABLET PO SCH ×2 (08:15→20:00)
[2021-06-18] MEDS: HumaLOG INSULIN (NovoLOG) PER UNIT SC SCH ×4 (08:15→20:00)
[2021-06-18] MEDS: METOPROLOL TART 50 MG TAB PO SCH ×2 (08:15→20:00)
[2021-06-18] MEDS: PANTOPRAZOLE 40MG TAB (PROTONIX) PO SCH (08:15)
[2021-06-18] MEDS: NYSTATIN 100,000 UNITS/GM TOPICAL PWD 15 GM TOP SCH ×2 (08:15→20:01)
[2021-06-19] MEDS: HYDROmorphone 2 MG TAB PO SCH ×6 (03:21→20:42)
[2021-06-19 06:00] VITALS: BP 120/69
[2021-06-19] MEDS: PANTOPRAZOLE 40MG TAB (PROTONIX) PO SCH (08:34)
[2021-06-19] MEDS: HumaLOG INSULIN (NovoLOG) PER UNIT SC SCH ×4 (08:34→20:43)
[2021-06-19] MEDS: METOPROLOL TART 50 MG TAB PO SCH ×2 (08:36→20:42)
[2021-06-19] MEDS: NYSTATIN 100,000 UNITS/GM TOPICAL PWD 15 GM TOP SCH ×2 (08:37→20:43)
[2021-06-19 10:20] LABS: HEPATITIS B SURFACE ANTIGEN NEGATIVE (NEGATIVE)
[2021-06-19 11:57] LABS: BASO # 0.1 10^3/uL (0.0-0.2); BASO % 0.6 % (0.0-1.0); EOS # 0.3 10^3/uL (0.0-0.5); EOS % 3.1 % (0.0-3.0); HEMATOCRIT 30.7 % (42.0-52.0); HEMOGLOBIN 9.3 g/dl (13.5-17.5); MEAN CORPUSCULAR HEMOGLOBIN 30.8 pg (27.0-33.0); MEAN CORPUSCULAR HGB CONC 30.3 g/dl (32.0-36.5); MEAN CORPUSCULAR VOLUME 101.7 fl (80.0-96.0); MONO # 0.8 10^3/uL (0.0-0.8); MONO % 7.4 % (2.0-8.0); NEUTROPHILS # 8.4 10^3/uL (1.5-8.5); NEUTROPHILS % 78.8 % (36.0-66.0); PLATELET COUNT, AUTOMATED 242 10^3/uL (150-450); RED BLOOD COUNT 3.02 10^6/uL (4.30-6.10); WHITE BLOOD COUNT 10.6 10^3/uL (4.0-10.0)
[2021-06-19 12:08] LABS: INR 2.82
[2021-06-19 12:25] LABS: C REACTIVE PROTEIN QUANTITATIV 12.7 MG/DL (0.00-0.30); CALCIUM LEVEL 8.1 MG/DL (8.8-10.2); CREATININE FOR GFR 4.89 MG/DL (0.70-1.30); GLOMERULAR FILTRATION RATE 12.4 (>42); POTASSIUM SERUM 4.7 MEQ/L (3.5-5.1)
[2021-06-19] MEDS: WARFARIN SOD 1MG TAB PO SCH (17:09)
[2021-06-19] MEDS: WARFARIN SOD 4MG TAB PO SCH (17:09)
[2021-06-19 20:12] VITALS: BP 128/62
[2021-06-19] MEDS: RAMELTEON 8 MG TAB (ROZEREM) PO PRN (20:42)
[2021-06-20] MEDS: HYDROmorphone 2 MG TAB PO SCH ×6 (00:14→20:56)
[2021-06-20 06:00] VITALS: BP 123/77
[2021-06-20] MEDS: PANTOPRAZOLE 40MG TAB (PROTONIX) PO SCH (06:45)
[2021-06-20] MEDS: METOPROLOL TART 50 MG TAB PO SCH ×2 (06:46→20:56)
[2021-06-20 06:53] LABS: BASO # 0.1 10^3/uL (0.0-0.2); BASO % 0.7 % (0.0-1.0); EOS # 0.4 10^3/uL (0.0-0.5); EOS % 3.7 % (0.0-3.0); HEMATOCRIT 30.1 % (42.0-52.0); HEMOGLOBIN 9.1 g/dl (13.5-17.5); LYMPH # 1.2 10^3/uL (1.5-5.0); LYMPH % 12.3 % (24.0-44.0); MEAN CORPUSCULAR HEMOGLOBIN 30.8 pg (27.0-33.0); MEAN CORPUSCULAR HGB CONC 30.2 g/dl (32.0-36.5); MONO # 0.8 10^3/uL (0.0-0.8); MONO % 8.7 % (2.0-8.0); NEUTROPHILS # 6.9 10^3/uL (1.5-8.5); NEUTROPHILS % 73.2 % (36.0-66.0); PLATELET COUNT, AUTOMATED 233 10^3/uL (150-450); RED BLOOD COUNT 2.95 10^6/uL (4.30-6.10); WHITE BLOOD COUNT 9.4 10^3/uL (4.0-10.0)
[2021-06-20 07:04] LABS: INR 2.77; PROTHROMBIN TIME 29.6 SECONDS (12.7-14.5)
[2021-06-20 07:16] LABS: C REACTIVE PROTEIN QUANTITATIV 12.1 MG/DL (0.00-0.30); CALCIUM LEVEL 8.2 MG/DL (8.8-10.2); CREATININE FOR GFR 5.62 MG/DL (0.70-1.30); GLOMERULAR FILTRATION RATE 10.5 (>42); MAGNESIUM LEVEL 1.9 MG/DL (1.8-2.4); POTASSIUM SERUM 4.9 MEQ/L (3.5-5.1)
[2021-06-20] MEDS ORDERED: SODIUM CHLORIDE 0.9% 1000ML IV PRN (07:50)
[2021-06-20] MEDS: HumaLOG INSULIN (NovoLOG) PER UNIT SC SCH ×4 (08:01→20:56)
[2021-06-20] MEDS: NYSTATIN 100,000 UNITS/GM TOPICAL PWD 15 GM TOP SCH ×2 (08:01→20:57)
[2021-06-20] MEDS: hydrOXYzine 10 MG TAB PO PRN (18:21)
[2021-06-20] MEDS: WARFARIN SOD 4MG TAB PO SCH (18:21)
[2021-06-20] MEDS: QUEtiapine FUMARATE 12.5 MG HALF-TAB PO SCH (20:55)
[2021-06-21] MEDS: HYDROmorphone 2 MG TAB PO SCH ×6 (04:00→20:37)
[2021-06-21] MEDS: ACETAMINOPHEN TAB 650MG DOSE (2X325MG) PO PRN (08:21)
[2021-06-21] MEDS: hydrOXYzine 10 MG TAB PO PRN (08:21)
[2021-06-21 08:25] VITALS: BP 123/77
[2021-06-21] MEDS: HumaLOG INSULIN (NovoLOG) PER UNIT SC SCH ×4 (08:40→21:00)
[2021-06-21] MEDS: PANTOPRAZOLE 40MG TAB (PROTONIX) PO SCH (08:44)
[2021-06-21] MEDS: METOPROLOL TART 50 MG TAB PO SCH ×2 (08:44→22:04)
[2021-06-21] MEDS: NYSTATIN 100,000 UNITS/GM TOPICAL PWD 15 GM TOP SCH ×2 (09:03→22:04)
[2021-06-21 09:42] LABS: BASO # 0.1 10^3/uL (0.0-0.2); BASO % 0.6 % (0.0-1.0); EOS # 0.2 10^3/uL (0.0-0.5); EOS % 2.1 % (0.0-3.0); HEMATOCRIT 30.4 % (42.0-52.0); HEMOGLOBIN 9.4 g/dl (13.5-17.5); LYMPH # 1.1 10^3/uL (1.5-5.0); LYMPH % 10.4 % (24.0-44.0); MEAN CORPUSCULAR HEMOGLOBIN 30.8 pg (27.0-33.0); MEAN CORPUSCULAR HGB CONC 30.9 g/dl (32.0-36.5); MEAN CORPUSCULAR VOLUME 99.7 fl (80.0-96.0); MONO # 0.8 10^3/uL (0.0-0.8); MONO % 7.2 % (2.0-8.0); NEUTROPHILS # 8.5 10^3/uL (1.5-8.5); NEUTROPHILS % 78.8 % (36.0-66.0); PLATELET COUNT, AUTOMATED 232 10^3/uL (150-450); RED BLOOD COUNT 3.05 10^6/uL (4.30-6.10); WHITE BLOOD COUNT 10.8 10^3/uL (4.0-10.0)
[2021-06-21] MEDS: MIRALAX *UNIT DOSE* 17GM PACKET PO SCH (12:31)
[2021-06-21] MEDS: DOCUSATE SODIUM 100MG CAPSULE PO SCH ×2 (12:31→22:03)
[2021-06-21] MEDS: WARFARIN SOD 1MG TAB PO SCH (17:24)
[2021-06-21] MEDS: WARFARIN SOD 4MG TAB PO SCH (17:25)
[2021-06-21] MEDS: QUEtiapine FUMARATE 12.5 MG HALF-TAB PO SCH (22:04)
[2021-06-22] MEDS: HYDROmorphone 2 MG TAB PO SCH ×8 (00:35→21:18)
[2021-06-22 06:00] VITALS: BP 111/76
[2021-06-22] MEDS: METOPROLOL TART 50 MG TAB PO SCH ×2 (06:02→21:17)
[2021-06-22] MEDS: PANTOPRAZOLE 40MG TAB (PROTONIX) PO SCH (06:21)
[2021-06-22] MEDS: DOCUSATE SODIUM 100MG CAPSULE PO SCH ×2 (06:21→21:18)
[2021-06-22] MEDS: MIRALAX *UNIT DOSE* 17GM PACKET PO SCH (06:21)
[2021-06-22 06:41] LABS: HEMATOCRIT 30.2 % (42.0-52.0); HEMOGLOBIN 9.5 g/dl (13.5-17.5); MEAN CORPUSCULAR HEMOGLOBIN 31.7 pg (27.0-33.0); MEAN CORPUSCULAR HGB CONC 31.5 g/dl (32.0-36.5); MEAN CORPUSCULAR VOLUME 100.7 fl (80.0-96.0); PLATELET COUNT, AUTOMATED 236 10^3/uL (150-450); WHITE BLOOD COUNT 11.5 10^3/uL (4.0-10.0)
[2021-06-22 07:01] LABS: CALCIUM LEVEL 7.9 MG/DL (8.8-10.2); CREATININE FOR GFR 5.14 MG/DL (0.70-1.30); GLOMERULAR FILTRATION RATE 11.7 (>42); MAGNESIUM LEVEL 1.9 MG/DL (1.8-2.4); POTASSIUM SERUM 4.7 MEQ/L (3.5-5.1)
[2021-06-22] MEDS: HumaLOG INSULIN (NovoLOG) PER UNIT SC SCH ×4 (07:30→21:00)
[2021-06-22] MEDS ORDERED: SODIUM CHLORIDE 0.9% 1000ML IV PRN (07:50)
[2021-06-22] MEDS: NYSTATIN 100,000 UNITS/GM TOPICAL PWD 15 GM TOP SCH ×2 (08:20→21:18)
[2021-06-22 08:30] VITALS: BP 111/76
[2021-06-22] MEDS: hydrOXYzine 10 MG TAB PO PRN ×2 (13:25→21:17)
[2021-06-22] MEDS: WARFARIN SOD 1MG TAB PO SCH ×3 (16:47→16:56)
[2021-06-22] MEDS: WARFARIN SOD 4MG TAB PO SCH ×3 (16:48→16:58)
[2021-06-22] MEDS: QUEtiapine FUMARATE 25 MG TAB PO SCH ×2 (17:20→21:17)
[2021-06-23 06:00] VITALS: BP 101/74
[2021-06-23] MEDS: HYDROmorphone 2 MG TAB PO SCH ×5 (06:00→20:20)
[2021-06-23] MEDS: MIRALAX *UNIT DOSE* 17GM PACKET PO SCH (09:00)
[2021-06-23] MEDS: PANTOPRAZOLE 40MG TAB (PROTONIX) PO SCH (09:58)
[2021-06-23] MEDS: DOCUSATE SODIUM 100MG CAPSULE PO SCH ×2 (09:58→20:18)
[2021-06-23] MEDS: HumaLOG INSULIN (NovoLOG) PER UNIT SC SCH ×4 (09:59→20:21)
[2021-06-23] MEDS: NYSTATIN 100,000 UNITS/GM TOPICAL PWD 15 GM TOP SCH ×2 (10:01→20:21)
[2021-06-23] MEDS: METOPROLOL TART 50 MG TAB PO SCH ×2 (10:02→20:20)
[2021-06-23] MEDS: WARFARIN SOD 4MG TAB PO SCH (17:37)
[2021-06-23] MEDS: WARFARIN SOD 1MG TAB PO SCH (17:38)
[2021-06-23] MEDS: RAMELTEON 8 MG TAB (ROZEREM) PO PRN (20:18)
[2021-06-23] MEDS: QUEtiapine FUMARATE 25 MG TAB PO SCH (20:19)
[2021-06-23] MEDS: ACETAMINOPHEN TAB 650MG DOSE (2X325MG) PO PRN (20:20)
[2021-06-24] MEDS: PANTOPRAZOLE 40MG TAB (PROTONIX) PO SCH (04:19)
[2021-06-24] MEDS: METOPROLOL TART 50 MG TAB PO SCH ×2 (04:20→20:07)
[2021-06-24] MEDS: HYDROmorphone 2 MG TAB PO SCH ×6 (04:20→20:05)
[2021-06-24] MEDS: NYSTATIN 100,000 UNITS/GM TOPICAL PWD 15 GM TOP SCH ×2 (04:22→20:07)
[2021-06-24] MEDS: DOCUSATE SODIUM 100MG CAPSULE PO SCH ×2 (04:22→20:05)
[2021-06-24 06:00] VITALS: BP 143/74
[2021-06-24] MEDS ORDERED: SODIUM CHLORIDE 0.9% 1000ML IV PRN (06:00)
[2021-06-24 06:08] LABS: HEMOGLOBIN 9.4 g/dl (13.5-17.5); MEAN CORPUSCULAR HEMOGLOBIN 30.6 pg (27.0-33.0); MEAN CORPUSCULAR HGB CONC 30.3 g/dl (32.0-36.5); PLATELET COUNT, AUTOMATED 217 10^3/uL (150-450); RED BLOOD COUNT 3.07 10^6/uL (4.30-6.10)
[2021-06-24 06:19] LABS: INR 3.35; PROTHROMBIN TIME 34.2 SECONDS (12.7-14.5)
[2021-06-24 06:29] LABS: CALCIUM LEVEL 8.5 MG/DL (8.8-10.2); CREATININE FOR GFR 4.99 MG/DL (0.70-1.30); GLOMERULAR FILTRATION RATE 12.1 (>42)
[2021-06-24] MEDS: HumaLOG INSULIN (NovoLOG) PER UNIT SC SCH ×4 (07:30→21:00)
[2021-06-24] MEDS: MIRALAX *UNIT DOSE* 17GM PACKET PO SCH (08:52)
[2021-06-24] MEDS: RAMELTEON 8 MG TAB (ROZEREM) PO PRN (20:05)
[2021-06-24] MEDS: QUEtiapine FUMARATE 25 MG TAB PO SCH (20:05)
[2021-06-25] MEDS: HYDROmorphone 2 MG TAB PO SCH ×6 (04:14→20:39)
[2021-06-25 06:00] VITALS: BP 141/75
[2021-06-25] MEDS: HumaLOG INSULIN (NovoLOG) PER UNIT SC SCH ×4 (08:45→21:00)
[2021-06-25] MEDS: DOCUSATE SODIUM 100MG CAPSULE PO SCH ×2 (08:45→20:39)
[2021-06-25] MEDS: PANTOPRAZOLE 40MG TAB (PROTONIX) PO SCH (08:45)
[2021-06-25] MEDS: METOPROLOL TART 50 MG TAB PO SCH ×2 (08:48→20:43)
[2021-06-25] MEDS: NYSTATIN 100,000 UNITS/GM TOPICAL PWD 15 GM TOP SCH ×2 (08:49→21:00)
[2021-06-25] MEDS: SENNA 8.6 MG TAB (SENOKOT) PO PRN (20:39)
[2021-06-25] MEDS: RAMELTEON 8 MG TAB (ROZEREM) PO PRN (20:39)
[2021-06-25] MEDS: QUEtiapine FUMARATE 25 MG TAB PO SCH (20:39)
[2021-06-26] MEDS: HYDROmorphone 2 MG TAB PO SCH ×6 (04:32→20:45)
[2021-06-26 06:00] VITALS: BP 107/69
[2021-06-26 06:24] LABS: HEMATOCRIT 32.2 % (42.0-52.0); MEAN CORPUSCULAR HEMOGLOBIN 31.3 pg (27.0-33.0); MEAN CORPUSCULAR HGB CONC 31.1 g/dl (32.0-36.5); MEAN CORPUSCULAR VOLUME 100.6 fl (80.0-96.0); PLATELET COUNT, AUTOMATED 236 10^3/uL (150-450); WHITE BLOOD COUNT 12.5 10^3/uL (4.0-10.0)
[2021-06-26 06:33] LABS: INR 2.93; PROTHROMBIN TIME 30.9 SECONDS (12.7-14.5)
[2021-06-26 06:44] LABS: CALCIUM LEVEL 8.4 MG/DL (8.8-10.2); CREATININE FOR GFR 4.93 MG/DL (0.70-1.30); GLOMERULAR FILTRATION RATE 12.3 (>42); POTASSIUM SERUM 3.9 MEQ/L (3.5-5.1)
[2021-06-26] MEDS: HumaLOG INSULIN (NovoLOG) PER UNIT SC SCH ×4 (08:15→21:00)
[2021-06-26] MEDS: DOCUSATE SODIUM 100MG CAPSULE PO SCH ×2 (08:15→20:46)
[2021-06-26] MEDS: PANTOPRAZOLE 40MG TAB (PROTONIX) PO SCH (08:15)
[2021-06-26] MEDS: NYSTATIN 100,000 UNITS/GM TOPICAL PWD 15 GM TOP SCH ×2 (08:16→20:46)
[2021-06-26] MEDS: METOPROLOL TART 50 MG TAB PO SCH ×2 (08:16→20:46)
[2021-06-26] MEDS ORDERED: BISACODYL 10 MG SUPP PR ONE (12:00)
[2021-06-26] MEDS: SENNA 8.6 MG TAB (SENOKOT) PO PRN (12:48)
[2021-06-26] MEDS: WARFARIN SOD 4MG TAB PO SCH (18:05)
[2021-06-26] MEDS: WARFARIN SOD 1MG TAB PO SCH (18:26)
[2021-06-26 20:12] VITALS: BP 130/49
[2021-06-26] MEDS: QUEtiapine FUMARATE 25 MG TAB PO SCH (20:45)
[2021-06-26] MEDS: RAMELTEON 8 MG TAB (ROZEREM) PO PRN (20:45)
[2021-06-27] MEDS: HYDROmorphone 2 MG TAB PO SCH ×4 (04:43→12:00)
[2021-06-27] MEDS ORDERED: SODIUM CHLORIDE 0.9% 1000ML IV PRN (06:00)
[2021-06-27 06:14] VITALS: BP 115/67
[2021-06-27 07:48] VITALS: BP 104/56
[2021-06-27] MEDS: METOPROLOL TART 50 MG TAB PO SCH (07:48)
[2021-06-27] MEDS: DOCUSATE SODIUM 100MG CAPSULE PO SCH (07:52)
[2021-06-27] MEDS: PANTOPRAZOLE 40MG TAB (PROTONIX) PO SCH (07:52)
[2021-06-27] MEDS: NYSTATIN 100,000 UNITS/GM TOPICAL PWD 15 GM TOP SCH (07:52)
[2021-06-27] MEDS: HumaLOG INSULIN (NovoLOG) PER UNIT SC SCH ×2 (07:52→12:00)
[2021-06-27] MEDS ORDERED: QUET1TAB17 PO (10:21)
== END 2021-06-27 12:15 | DRG 299 ==
LOC: M ED 18:07 → EDBD 18:07 → M ED INP 06-13 01:09 → ENRESERV 06-13 08:41 → M 4MAIN 06-13 09:45 → M MS5PR 06-14 15:25
PROVIDERS: ADMIT Family Medicine; ATTEND Internal Medicine
PROC: 5A1D70Z Performance of Urinary Filtration, Intermittent, Less than 6 Hours Per Day (ICD-10-PCS; principal; 2021-06-23)
DX: E11.52 Type 2 diabetes mellitus with diabetic peripheral angiopathy with gangrene (principal); J18.9 Pneumonia, unspecified organism; N18.6 End stage renal disease; U07.1 COVID-19; B37.49 Other urogenital candidiasis; I13.2 Hypertensive heart and chronic kidney disease with heart failure and with stage 5 chronic kidney disease, or end stage renal disease; I50.32 Chronic diastolic (congestive) heart failure; J98.11 Atelectasis; R64 Cachexia; I48.20 Chronic atrial fibrillation, unspecified; I70.269 Atherosclerosis of native arteries of extremities with gangrene, unspecified extremity; L97.519 Non-pressure chronic ulcer of other part of right foot with unspecified severity; G20 Parkinson's disease; E11.22 Type 2 diabetes mellitus with diabetic chronic kidney disease; Z99.2 Dependence on renal dialysis; D63.1 Anemia in chronic kidney disease; I25.10 Atherosclerotic heart disease of native coronary artery without angina pectoris; E11.621 Type 2 diabetes mellitus with foot ulcer; K21.9 Gastro-esophageal reflux disease without esophagitis; F02.80 Dementia in other diseases classified elsewhere, unspecified severity, without behavioral disturbance, psychotic disturbance, mood disturbance, and anxiety; Z86.73 Personal history of transient ischemic attack (TIA), and cerebral infarction without residual deficits; Z95.1 Presence of aortocoronary bypass graft; Z79.01 Long term (current) use of 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s; Z79.899 Other long term (current) drug therapy; Z88.0 Allergy status to penicillin; Z88.5 Allergy status to narcotic agent; Z91.018 Allergy to other foods; Z88.8 Allergy status to other drugs, medicaments and biological substances; Z98.41 Cataract extraction status, right eye; Z98.42 Cataract extraction status, left eye; Z85.828 Personal history of other malignant neoplasm of skin; L97.529 Non-pressure chronic ulcer of other part of left foot with unspecified severity

== ENCOUNTER → 2021-06-29 | Outpatient (REF) ==
[~2021-06-29] MED LIST changes: +CEPH500C PO; +DULC10SU2 PR; +ENSU1LIQ36 PO; +FLEEENE12 PR; +GLIP5TAB8 PO; +HYDR-3363 PO; +MICO2CRE42 TOP; +MILKSUS3 PO; +WARF-23 PO; +WARF4TAB52 PO
[2021-06-29 13:52] LABS: APPEARANCE, URINE TURBID (CLEAR); BACTERIA, URINE AUTO 3+ (NEGATIVE); BILIRUBIN, URINE AUTO NEGATIVE (NEGATIVE); BLOOD, URINE BLOOD 2+ (NEGATIVE); COLOR, URINE YELLOW (YELLOW); GLUCOSE, URINE (UA) AUTO NEGATIVE (NEGATIVE); KETONE, URINE AUTO NEGATIVE (NEGATIVE); LEUKOCYTE ESTERASE, URINE AUTO 3+ (NEGATIVE); NITRITE, URINE AUTO NEGATIVE (NEGATIVE); PROTEIN, URINE AUTO 3+ mg/dL (NEGATIVE); RBC, URINE AUTO 79 /HPF (0-3); SPECIFIC GRAVITY URINE AUTO 1.013 (1.002-1.035); SQUAMOUS EPITHELIAL CELL UR AU 0 /HPF (0-6); UROBILINOGEN, URINE AUTO 0.2 mg/dL (0.0-2.0); WBC, URINE AUTO TNTC /HPF (0-3)
== END ==
LOC: SKLAB7 08:53
PROVIDERS: ATTEND Neuromusculoskeletal Medicine & OMM
DX: R41.0 Disorientation, unspecified (principal)

== ENCOUNTER 2021-07-03 09:54 | Inpatient (IN) | payer MEDICARE, MEDICAID ==
[~2021-07-03] VITALS: Ht 172.7 cm; Wt 62.0 kg
[~2021-07-03 09:54] MED LIST changes: -CEPH500C PO; -DULC10SU2 PR; -ENSU1LIQ36 PO; -FLEEENE12 PR; -GLIP5TAB8 PO; -HYDR-3363 PO; -MICO2CRE42 TOP; -MILKSUS3 PO; -WARF-23 PO
[2021-07-03 12:19] LABS: BASO # 0.1 10^3/uL (0.0-0.2); BASO % 0.5 % (0.0-1.0); EOS # 0.5 10^3/uL (0.0-0.5); EOS % 4.9 % (0.0-3.0); HEMATOCRIT 32.4 % (42.0-52.0); HEMOGLOBIN 9.8 g/dl (13.5-17.5); LYMPH # 1.7 10^3/uL (1.5-5.0); LYMPH % 15.6 % (24.0-44.0); MEAN CORPUSCULAR HEMOGLOBIN 30.8 pg (27.0-33.0); MEAN CORPUSCULAR HGB CONC 30.2 g/dl (32.0-36.5); MEAN CORPUSCULAR VOLUME 101.9 fl (80.0-96.0); MONO # 1.1 10^3/uL (0.0-0.8); MONO % 10.5 % (2.0-8.0); NEUTROPHILS # 7.2 10^3/uL (1.5-8.5); NEUTROPHILS % 67.8 % (36.0-66.0); PLATELET COUNT, AUTOMATED 230 10^3/uL (150-450); RED BLOOD COUNT 3.18 10^6/uL (4.30-6.10); WHITE BLOOD COUNT 10.6 10^3/uL (4.0-10.0)
[2021-07-03 12:48] LABS: CALCIUM LEVEL 8.3 MG/DL (8.8-10.2); CREATININE FOR GFR 5.49 MG/DL (0.70-1.30); GLOMERULAR FILTRATION RATE 10.8 (>42); POTASSIUM SERUM 5.3 MEQ/L (3.5-5.1)
[2021-07-03] MEDS ORDERED: GLUCAGON INJ 1MG VIAL SC PRN (15:25)
[2021-07-03] MEDS ORDERED: DEXTROSE 50% 50 ML SYRINGE IV PRN (15:25)
[2021-07-03] MEDS ORDERED: MOM 30ML SUSPENSION UDC PO PRN (15:25)
[2021-07-03] MEDS ORDERED: MAALOX 30 ML SUSP *UDC PO PRN (15:25)
[2021-07-03] MEDS ORDERED: SOD POLYSTYRENE SULFONATE SUSP 15 GM/60 ML UD PO ONE (15:25)
[2021-07-03] MEDS ORDERED: GLUCOSE 4GM CHEW TABLET PO PRN (15:25)
[2021-07-03] MEDS ORDERED: CEFEPIME HCL 2 GM in D5W MINI-BAG PLUS 50 ML IV SCH (15:30)
[2021-07-03] MEDS ORDERED: WARF-23 PO (15:46)
[2021-07-03] MEDS ORDERED: MICO2CRE42 TOP (15:46)
[2021-07-03] MEDS ORDERED: ENSU1LIQ36 PO (15:46)
[2021-07-03] MEDS ORDERED: HYDR-3363 PO (15:46)
[2021-07-03] MEDS ORDERED: CEPH500C PO (15:46)
[2021-07-03] MEDS ORDERED: MILKSUS3 PO (15:46)
[2021-07-03] MEDS ORDERED: QUET1TAB17 PO ×2 (15:46)
[2021-07-03] MEDS ORDERED: GLIP5TAB8 PO (15:46)
[2021-07-03] MEDS ORDERED: FLEEENE12 PR (15:47)
[2021-07-03] MEDS ORDERED: DULC10SU2 PR (15:47)
[2021-07-03] MEDS ORDERED: HOME MED LIST COMPLETE! XX SCH (15:50)
[2021-07-03] MEDS ORDERED: WARFARIN SOD 5MG TAB PO SCH (17:00)
[2021-07-03] MEDS ORDERED: FLEET ENEMA PR PRN (17:10)
[2021-07-03] MEDS ORDERED: NYSTATIN 100,000 UNITS/GM TOPICAL PWD 15 GM TOP PRN (17:10)
[2021-07-03] MEDS ORDERED: BISACODYL 10 MG SUPP PR PRN (17:10)
[2021-07-03] MEDS: HumaLOG INSULIN (NovoLOG) PER UNIT SC SCH ×2 (17:30→20:59)
[2021-07-03] MEDS: CEFEPIME HCL 1 GM in D5W MINI-BAG PLUS 50 ML IV SCH (17:35)
[2021-07-03] MEDS: HYDROmorphone 2 MG TAB PO SCH ×3 (17:38→18:18)
[2021-07-03 18:11] LABS: INR 6.43
[2021-07-03 18:12] LABS: PROTHROMBIN TIME 56.3 SECONDS (12.7-14.5)
[2021-07-03 18:21] LABS: NT-PRO BNP 10284 PG/ML (<450)
[2021-07-03] MEDS ORDERED: PILL CUTTER 1 EACH XX ONE (19:50)
[2021-07-03] MEDS: ACETAMINOPHEN TAB 650MG DOSE (2X325MG) PO PRN (20:00)
[2021-07-03] MEDS ORDERED: HYDROmorphone 2 MG TAB PO ONE (20:15)
[2021-07-03] MEDS: MICONAZOLE TOPICAL 2% CREAM 15GM TOP SCH (21:00)
[2021-07-03] MEDS ORDERED: HYDROCORTISONE 100 MG/2 ML VIAL (J1720 PER 1) IV ONE (21:35)
[2021-07-03 21:50] VITALS: BP 138/75
[2021-07-03 22:29] LABS: CALCIUM LEVEL 8.8 MG/DL (8.8-10.2); CREATININE FOR GFR 5.81 MG/DL (0.70-1.30); GLOMERULAR FILTRATION RATE 10.2 (>42); POTASSIUM SERUM 5.4 MEQ/L (3.5-5.1)
[2021-07-03] MEDS: QUEtiapine FUMARATE 25 MG TAB PO SCH (22:50)
[2021-07-03] MEDS: METOPROLOL TART 50 MG TAB PO SCH (22:50)
[2021-07-03] MEDS: DOCUSATE SODIUM 100MG CAPSULE PO SCH (22:51)
[2021-07-04] VITALS: BP 130/79
[2021-07-04] MEDS: HYDROmorphone 2 MG TAB PO SCH ×2 (01:25→04:58)
[2021-07-04 04:50] VITALS: BP 127/63
[2021-07-04] MEDS: HumaLOG INSULIN (NovoLOG) PER UNIT SC SCH ×4 (07:30→21:00)
[2021-07-04] MEDS ORDERED: SODIUM CHLORIDE 0.9% 1000ML IV PRN (07:45)
[2021-07-04 08:10] VITALS: BP 130/62
[2021-07-04 08:49] LABS: BASO % 0.4 % (0.0-1.0); HEMATOCRIT 29.5 % (42.0-52.0); LYMPH # 0.7 10^3/uL (1.5-5.0); LYMPH % 8.1 % (24.0-44.0); MEAN CORPUSCULAR HGB CONC 30.5 g/dl (32.0-36.5); MEAN CORPUSCULAR VOLUME 101.7 fl (80.0-96.0); MONO # 0.2 10^3/uL (0.0-0.8); MONO % 2.3 % (2.0-8.0); NEUTROPHILS # 7.3 10^3/uL (1.5-8.5); NEUTROPHILS % 88.7 % (36.0-66.0); PLATELET COUNT, AUTOMATED 212 10^3/uL (150-450); WHITE BLOOD COUNT 8.3 10^3/uL (4.0-10.0)
[2021-07-04] MEDS: MICONAZOLE TOPICAL 2% CREAM 15GM TOP SCH ×3 (09:00→21:32)
[2021-07-04 09:14] LABS: INR 7.45
[2021-07-04 09:18] LABS: C REACTIVE PROTEIN QUANTITATIV 12.2 MG/DL (0.00-0.30); CALCIUM LEVEL 8.7 MG/DL (8.8-10.2); CREATININE FOR GFR 5.74 MG/DL (0.70-1.30); GLOMERULAR FILTRATION RATE 10.3 (>42); MAGNESIUM LEVEL 2.1 MG/DL (1.8-2.4); POTASSIUM SERUM 5.5 MEQ/L (3.5-5.1)
[2021-07-04] MEDS ORDERED: PHYTONADIONE 5 MG TAB PO ONE (09:55)
[2021-07-04 12:09] LABS: HEPATITIS B SURFACE ANTIGEN NEGATIVE (NEGATIVE)
[2021-07-04 12:40] VITALS: BP 124/60
[2021-07-04] MEDS ORDERED: DARBEPOETIN 100 MCG/0.5 ML *DIALYSIS* SYRINGE (J0882) IV SCH (12:55)
[2021-07-04] MEDS: PANTOPRAZOLE 40MG TAB (PROTONIX) PO SCH (13:20)
[2021-07-04] MEDS: METOPROLOL TART 50 MG TAB PO SCH ×2 (13:20→21:31)
[2021-07-04] MEDS: hydrOXYzine 10 MG TAB PO PRN (13:20)
[2021-07-04] MEDS: DOCUSATE SODIUM 100MG CAPSULE PO SCH ×2 (13:20→21:30)
[2021-07-04] MEDS: HYDROmorphone 2 MG TAB PO PRN ×2 (13:21→17:30)
[2021-07-04 16:00] VITALS: BP 123/60
[2021-07-04] MEDS: CEFEPIME HCL 1 GM in D5W MINI-BAG PLUS 50 ML IV SCH (16:54)
[2021-07-04] MEDS: ACETAMINOPHEN TAB 650MG DOSE (2X325MG) PO PRN (16:54)
[2021-07-04] MEDS ORDERED: WARFARIN SOD 4MG TAB PO SCH (17:00)
[2021-07-04 20:00] VITALS: BP 111/62
[2021-07-04] MEDS: QUEtiapine FUMARATE 25 MG TAB PO SCH (21:30)
[2021-07-05] VITALS: BP 106/51
[2021-07-05 04:00] VITALS: BP 99/51
[2021-07-05 06:35] LABS: BASO # 0.1 10^3/uL (0.0-0.2); BASO % 0.8 % (0.0-1.0); EOS # 0.3 10^3/uL (0.0-0.5); EOS % 3.9 % (0.0-3.0); HEMATOCRIT 30.5 % (42.0-52.0); HEMOGLOBIN 9.4 g/dl (13.5-17.5); LYMPH # 1.4 10^3/uL (1.5-5.0); LYMPH % 16.1 % (24.0-44.0); MEAN CORPUSCULAR HGB CONC 30.8 g/dl (32.0-36.5); MEAN CORPUSCULAR VOLUME 100.7 fl (80.0-96.0); MONO % 11.2 % (2.0-8.0); NEUTROPHILS # 5.7 10^3/uL (1.5-8.5); NEUTROPHILS % 66.9 % (36.0-66.0); PLATELET COUNT, AUTOMATED 217 10^3/uL (150-450); RED BLOOD COUNT 3.03 10^6/uL (4.30-6.10); WHITE BLOOD COUNT 8.5 10^3/uL (4.0-10.0)
[2021-07-05 07:13] LABS: C REACTIVE PROTEIN QUANTITATIV 8.7 MG/DL (0.00-0.30); CALCIUM LEVEL 8.6 MG/DL (8.8-10.2); CREATININE FOR GFR 3.52 MG/DL (0.70-1.30); GLOMERULAR FILTRATION RATE 18.1 (>42); MAGNESIUM LEVEL 2.1 MG/DL (1.8-2.4)
[2021-07-05 07:15] LABS: INR 3.27; PROTHROMBIN TIME 33.6 SECONDS (12.7-14.5)
[2021-07-05] MEDS: HumaLOG INSULIN (NovoLOG) PER UNIT SC SCH ×4 (07:30→20:20)
[2021-07-05 08:20] VITALS: BP 132/59
[2021-07-05] MEDS: MICONAZOLE TOPICAL 2% CREAM 15GM TOP SCH ×2 (09:54→21:00)
[2021-07-05] MEDS: PANTOPRAZOLE 40MG TAB (PROTONIX) PO SCH (09:55)
[2021-07-05] MEDS: DOCUSATE SODIUM 100MG CAPSULE PO SCH ×2 (09:55→23:26)
[2021-07-05] MEDS: hydrOXYzine 10 MG TAB PO PRN (10:01)
[2021-07-05] MEDS: HYDROmorphone 2 MG TAB PO PRN ×3 (10:02→19:53)
[2021-07-05] MEDS: METOPROLOL TART 50 MG TAB PO SCH ×2 (10:03→20:21)
[2021-07-05 12:25] VITALS: BP 145/67
[2021-07-05] MEDS: CEFEPIME HCL 1 GM in D5W MINI-BAG PLUS 50 ML IV SCH (15:00)
[2021-07-05 16:10] VITALS: BP 135/64
[2021-07-05] MEDS: FLUCONAZOLE 100 MG TAB PO SCH (18:42)
[2021-07-05 19:51] VITALS: BP 100/58
[2021-07-05] MEDS: QUEtiapine FUMARATE 25 MG TAB PO SCH (23:26)
[2021-07-06] VITALS: BP 105/52
[2021-07-06 04:00] VITALS: BP 135/61
[2021-07-06 06:18] LABS: BASO # 0.1 10^3/uL (0.0-0.2); BASO % 0.7 % (0.0-1.0); EOS # 0.4 10^3/uL (0.0-0.5); EOS % 4.7 % (0.0-3.0); HEMATOCRIT 30.3 % (42.0-52.0); HEMOGLOBIN 9.5 g/dl (13.5-17.5); LYMPH # 1.3 10^3/uL (1.5-5.0); MEAN CORPUSCULAR HEMOGLOBIN 31.7 pg (27.0-33.0); MEAN CORPUSCULAR HGB CONC 31.4 g/dl (32.0-36.5); MONO # 0.8 10^3/uL (0.0-0.8); MONO % 9.9 % (2.0-8.0); NEUTROPHILS # 5.7 10^3/uL (1.5-8.5); NEUTROPHILS % 67.9 % (36.0-66.0); PLATELET COUNT, AUTOMATED 193 10^3/uL (150-450); WHITE BLOOD COUNT 8.3 10^3/uL (4.0-10.0)
[2021-07-06 06:38] LABS: C REACTIVE PROTEIN QUANTITATIV 8.51 MG/DL (0.00-0.30); CALCIUM LEVEL 8.3 MG/DL (8.8-10.2); CREATININE FOR GFR 4.47 MG/DL (0.70-1.30); GLOMERULAR FILTRATION RATE 13.7 (>42); POTASSIUM SERUM 4.3 MEQ/L (3.5-5.1)
[2021-07-06 07:31] LABS: INR 1.92; PROTHROMBIN TIME 22.4 SECONDS (12.7-14.5)
[2021-07-06] MEDS ORDERED: SODIUM CHLORIDE 0.9% 1000ML IV PRN (07:50)
[2021-07-06 08:02] VITALS: BP 129/61
[2021-07-06] MEDS: PANTOPRAZOLE 40MG TAB (PROTONIX) PO SCH (08:17)
[2021-07-06] MEDS: DOCUSATE SODIUM 100MG CAPSULE PO SCH ×2 (08:17→20:00)
[2021-07-06] MEDS: METOPROLOL TART 50 MG TAB PO SCH ×2 (08:18→20:00)
[2021-07-06] MEDS: HYDROmorphone 2 MG TAB PO PRN ×3 (08:19→19:16)
[2021-07-06] MEDS: HumaLOG INSULIN (NovoLOG) PER UNIT SC SCH ×4 (08:19→20:02)
[2021-07-06] MEDS: MICONAZOLE TOPICAL 2% CREAM 15GM TOP SCH ×2 (09:00→20:01)
[2021-07-06 12:25] VITALS: BP 120/65
[2021-07-06] MEDS ORDERED: WARFARIN SOD 5MG TAB PO SCH (17:00)
[2021-07-06] MEDS: FLUCONAZOLE 100 MG TAB PO SCH (17:55)
[2021-07-06 19:58] VITALS: BP 123/58
[2021-07-06] MEDS: QUEtiapine FUMARATE 25 MG TAB PO SCH (20:00)
[2021-07-07 01:30] VITALS: BP 136/64
[2021-07-07] MEDS: HYDROmorphone 2 MG TAB PO PRN ×2 (01:34→05:35)
[2021-07-07 05:31] VITALS: BP 120/58
[2021-07-07] MEDS: HumaLOG INSULIN (NovoLOG) PER UNIT SC SCH (07:30)
[2021-07-07 08:00] VITALS: BP 134/76
[2021-07-07] MEDS: PANTOPRAZOLE 40MG TAB (PROTONIX) PO SCH (08:06)
[2021-07-07] MEDS: DOCUSATE SODIUM 100MG CAPSULE PO SCH (08:06)
[2021-07-07 08:07] VITALS: BP 134/76
[2021-07-07] MEDS: MICONAZOLE TOPICAL 2% CREAM 15GM TOP SCH (08:07)
[2021-07-07] MEDS: METOPROLOL TART 50 MG TAB PO SCH (08:07)
[2021-07-07 08:33] LABS: BASO # 0.1 10^3/uL (0.0-0.2); EOS # 0.5 10^3/uL (0.0-0.5); EOS % 4.6 % (0.0-3.0); HEMATOCRIT 30.7 % (42.0-52.0); HEMOGLOBIN 9.6 g/dl (13.5-17.5); LYMPH # 1.9 10^3/uL (1.5-5.0); LYMPH % 17.8 % (24.0-44.0); MEAN CORPUSCULAR HEMOGLOBIN 31.5 pg (27.0-33.0); MEAN CORPUSCULAR HGB CONC 31.3 g/dl (32.0-36.5); MEAN CORPUSCULAR VOLUME 100.7 fl (80.0-96.0); MONO # 1.1 10^3/uL (0.0-0.8); MONO % 10.3 % (2.0-8.0); NEUTROPHILS % 64.7 % (36.0-66.0); PLATELET COUNT, AUTOMATED 207 10^3/uL (150-450); RED BLOOD COUNT 3.05 10^6/uL (4.30-6.10); WHITE BLOOD COUNT 10.9 10^3/uL (4.0-10.0)
[2021-07-07 08:44] LABS: INR 1.65
[2021-07-07 08:56] LABS: C REACTIVE PROTEIN QUANTITATIV 7.55 MG/DL (0.00-0.30); CALCIUM LEVEL 8.8 MG/DL (8.8-10.2); CREATININE FOR GFR 3.24 MG/DL (0.70-1.30); GLOMERULAR FILTRATION RATE 19.9 (>42); MAGNESIUM LEVEL 1.8 MG/DL (1.8-2.4); POTASSIUM SERUM 5.1 MEQ/L (3.5-5.1)
[2021-07-07] MEDS: ENOXAPARIN 60MG/0.6ML SYRINGE (J1650 PER 10MG) SC SCH ×2 (09:00→11:24)
[2021-07-07] MEDS ORDERED: FLEET ENEMA PR ONE (10:00)
[2021-07-07] MEDS ORDERED: JANT5TAB PO (10:24)
[2021-07-07] MEDS ORDERED: HYDR-3363 PO (10:24)
[2021-07-07] MEDS ORDERED: FLUC100T3 PO (10:24)
[2021-07-07] MEDS ORDERED: LOVE0.4I2 SC (10:24)
== END 2021-07-07 11:54 | DRG 698 ==
LOC: EDBD 09:54 → EDSEX 09:54 → M ED 09:54 → M ED INP 15:24 → ENRESERV 21:19 → M PCU 21:50
PROVIDERS: ADMIT Internal Medicine; ATTEND Internal Medicine
PROC: 5A1D70Z Performance of Urinary Filtration, Intermittent, Less than 6 Hours Per Day (ICD-10-PCS; principal; 2021-07-04)
DX: T83.511A Infection and inflammatory reaction due to indwelling urethral catheter, initial encounter (principal); N18.6 End stage renal disease; I50.33 Acute on chronic diastolic (congestive) heart failure; I13.2 Hypertensive heart and chronic kidney disease with heart failure and with stage 5 chronic kidney disease, or end stage renal disease; E87.2 Acidosis; E11.52 Type 2 diabetes mellitus with diabetic peripheral angiopathy with gangrene; I48.20 Chronic atrial fibrillation, unspecified; E87.1 Hypo-osmolality and hyponatremia; N39.0 Urinary tract infection, site not specified; E87.5 Hyperkalemia; Z79.01 Long term (current) use of 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s; K21.9 Gastro-esophageal reflux disease without esophagitis; E11.22 Type 2 diabetes mellitus with diabetic chronic kidney disease; I25.10 Atherosclerotic heart disease of native coronary artery without angina pectoris; G31.83 Neurocognitive disorder with Lewy bodies; Z95.2 Presence of prosthetic heart valve; D64.9 Anemia, unspecified; Z95.1 Presence of aortocoronary bypass graft; R09.02 Hypoxemia; Z99.2 Dependence on renal dialysis; Z66 Do not resuscitate; Z86.73 Personal history of transient ischemic attack (TIA), and cerebral infarction without residual deficits; F02.80 Dementia in other diseases classified elsewhere, unspecified severity, without behavioral disturbance, psychotic disturbance, mood disturbance, and anxiety; Z79.899 Other long term (current) drug therapy; Z91.018 Allergy to other foods; Z88.0 Allergy status to penicillin; Z88.8 Allergy status to other drugs, medicaments and biological substances; Z88.5 Allergy status to narcotic agent; Z98.41 Cataract extraction status, right eye; Z98.42 Cataract extraction status, left eye; Z85.828 Personal history of other malignant neoplasm of skin; Y84.6 Urinary catheterization as the cause of abnormal reaction of the patient, or of later complication, without mention of misadventure at the time of the procedure

== ENCOUNTER → 2021-07-08 | Outpatient (REF) ==
[~2021-07-08] MED LIST changes: -ASPI-286 PO; +BENZ1LOZ10 PO; -CEPA1LOZ2 PO; +CEPH500C PO; +DULC10SU2 PR; +ENSU1LIQ36 PO; +FLEEENE12 PR; +FLUC100T3 PO; +GLIP5TAB8 PO; +HYDR-3363 PO; +JANT5TAB PO; +LOVE0.4I2 SC; +MICO2CRE42 TOP; +MILKSUS3 PO; +SM C81CH2 PO; +WARF-23 PO
[2021-07-08 08:42] LABS: INR 1.95; PROTHROMBIN TIME 22.6 SECONDS (12.7-14.5)
== END ==
LOC: SKLAB4 07:00
PROVIDERS: ATTEND Neuromusculoskeletal Medicine & OMM
DX: I48.91 Unspecified atrial fibrillation (principal)

== ENCOUNTER → 2021-07-09 | Outpatient (REF) ==
[~2021-07-09] MED LIST changes: +ASPI-286 PO; -BENZ1LOZ10 PO; +CEPA1LOZ2 PO; -SM C81CH2 PO
[2021-07-09 07:34] LABS: INR 2.24; PROTHROMBIN TIME 25.2 SECONDS (12.7-14.5)
== END ==
LOC: SKLAB4 02:23
PROVIDERS: ATTEND Neuromusculoskeletal Medicine & OMM
DX: I48.91 Unspecified atrial fibrillation (principal)

== ENCOUNTER → 2021-07-10 | Outpatient (REF) ==
[~2021-07-10] MED LIST changes: -ASPI-286 PO; +BENZ1LOZ10 PO; -CEPA1LOZ2 PO; +SM C81CH2 PO
[2021-07-10 06:45] LABS: INR 2.73; PROTHROMBIN TIME 29.3 SECONDS (12.7-14.5)
== END ==
LOC: SKLAB4 07:00
PROVIDERS: ATTEND Neuromusculoskeletal Medicine & OMM
DX: I48.91 Unspecified atrial fibrillation (principal)

== ENCOUNTER → 2021-07-12 | Outpatient (REF) ==
[2021-07-12 12:14] LABS: INR 3.78; PROTHROMBIN TIME 37.5 SECONDS (12.7-14.5)
== END ==
LOC: SKLAB4 08:48
PROVIDERS: ATTEND Neuromusculoskeletal Medicine & OMM
DX: I48.91 Unspecified atrial fibrillation (principal)

== ENCOUNTER → 2021-08-20 | Outpatient (REF) | payer MEDICARE, MEDICAID, OTHER ==
[2021-08-21 11:51] LABS: APPEARANCE, URINE CLOUDY (CLEAR); BACTERIA, URINE AUTO NEGATIVE (NEGATIVE); BILIRUBIN, URINE AUTO NEGATIVE (NEGATIVE); BLOOD, URINE BLOOD 1+ (NEGATIVE); COLOR, URINE AMBER (YELLOW); GLUCOSE, URINE (UA) AUTO 1+ mg/dL (NEGATIVE); KETONE, URINE AUTO NEGATIVE (NEGATIVE); LEUKOCYTE ESTERASE, URINE AUTO 3+ (NEGATIVE); NITRITE, URINE AUTO NEGATIVE (NEGATIVE); PROTEIN, URINE AUTO 3+ mg/dL (NEGATIVE); RBC, URINE AUTO 2 /HPF (0-3); SPECIFIC GRAVITY URINE AUTO 1.014 (1.002-1.035); SQUAMOUS EPITHELIAL CELL UR AU 0 /HPF (0-6); UROBILINOGEN, URINE AUTO 0.2 mg/dL (0.0-2.0); WBC, URINE AUTO 147 /HPF (0-3)
== END ==
LOC: M SFHCCLAY 11:24
PROVIDERS: ATTEND Family Medicine
DX: R82.90 Unspecified abnormal findings in urine (principal)

== ENCOUNTER → 2021-08-23 | Outpatient (REF) | payer MEDICARE, OTHER, MEDICAID | LOC: M SFHCWOUN 16:01 | PROVIDERS: ATTEND Surgery | DX: E11.621 Type 2 diabetes mellitus with foot ulcer (principal); I96 Gangrene, not elsewhere classified; M86.172 Other acute osteomyelitis, left ankle and foot ==

== ENCOUNTER 2021-09-09 09:08 | Observation (INO) | payer MEDICAID, MEDICARE, OTHER ==
[~2021-09-09] VITALS: Ht 177.8 cm; Wt 69.6 kg
[2021-09-09 09:57] LABS: BASO % 0.3 % (0.0-1.0); EOS # 0.1 10^3/uL (0.0-0.5); EOS % 0.3 % (0.0-3.0); HEMATOCRIT 28.2 % (42.0-52.0); HEMOGLOBIN 8.4 g/dl (13.5-17.5); LYMPH % 6.3 % (24.0-44.0); MEAN CORPUSCULAR HEMOGLOBIN 30.9 pg (27.0-33.0); MEAN CORPUSCULAR HGB CONC 29.8 g/dl (32.0-36.5); MEAN CORPUSCULAR VOLUME 103.7 fl (80.0-96.0); MONO # 0.8 10^3/uL (0.0-0.8); MONO % 4.8 % (2.0-8.0); NEUTROPHILS % 87.4 % (36.0-66.0); PLATELET COUNT, AUTOMATED 233 10^3/uL (150-450); RED BLOOD COUNT 2.72 10^6/uL (4.30-6.10)
[2021-09-09 10:12] LABS: INR 2.48; PROTHROMBIN TIME 27.2 SECONDS (12.7-14.5)
[2021-09-09 10:13] LABS: PARTIAL THROMBOPLASTIN TIME 59.8 SECONDS (25.9-37.0)
[2021-09-09 10:28] LABS: CK-MB VALUE MASS 1.6 NG/ML (<3.6); MB/CK RELATIVE INDEX 8.42 (< OR =4)
[2021-09-09 10:34] LABS: ACETAMINOPHEN LEVEL < 2.0 UG/ML (10.0-30.0); ALBUMIN 1.9 GM/DL (3.2-5.2); ALT/SGPT 11 U/L (12-78); BILIRUBIN,DIRECT 0.6 MG/DL (0.0-0.2); BILIRUBIN,TOTAL 0.7 MG/DL (0.2-1.0); BLOOD UREA NITROGEN 39 MG/DL (7-18); CALCIUM LEVEL 8.6 MG/DL (8.8-10.2); CARBON DIOXIDE LEVEL 26 MEQ/L (21-32); CHLORIDE LEVEL 101 MEQ/L (98-107); CREATININE FOR GFR 4.51 MG/DL (0.70-1.30); ETHYL ALCOHOL (ETHANOL) < 0.003 % (0.000-0.010); GLOMERULAR FILTRATION RATE 13.6 (>42); GLUCOSE, FASTING 142 MG/DL (70-100); POTASSIUM SERUM 3.7 MEQ/L (3.5-5.1); SODIUM LEVEL 138 MEQ/L (136-145); TOTAL PROTEIN 8.5 GM/DL (6.4-8.2)
[2021-09-09] MEDS ORDERED: LevoFLOXacin IV 750 MG in IV 1 EA IV ONE (10:40)
[2021-09-09 10:47] LABS: RSV AMPLIFICATION NEGATIVE (NEGATIVE)
[2021-09-09] MEDS ORDERED: WARF-20 PO (10:50)
[2021-09-09] MEDS ORDERED: HYDR2TAB2 PO (10:50)
[2021-09-09] MEDS ORDERED: GLIP10TA6 PO (10:50)
[2021-09-09 11:20] LABS: SALICYLATE LEVEL < 1.7 MG/DL (5.0-30.0)
[2021-09-09] MEDS ORDERED: WARF-23 PO (11:42)
[2021-09-09] MEDS ORDERED: HOME MED LIST COMPLETE! XX SCH (11:45)
[2021-09-09] MEDS ORDERED: GLUCOSE 4GM CHEW TABLET PO PRN (12:15)
[2021-09-09] MEDS ORDERED: GLUCAGON INJ 1MG VIAL SC PRN (12:15)
[2021-09-09] MEDS ORDERED: BISACODYL 10 MG SUPP PR PRN (12:15)
[2021-09-09] MEDS ORDERED: DEXTROSE 50% 50 ML SYRINGE IV PRN (12:15)
[2021-09-09] MEDS ORDERED: DIGOXIN INJ 0.5 MG/2 ML AMP (J1160) IV STA (12:17)
[2021-09-09] MEDS: INSULIN LISPRO (NovoLOG) PER UNIT SC SCH ×2 (12:38→17:30)
[2021-09-09] MEDS: METOPROLOL TART 25 MG TABLET PO SCH ×2 (12:43→18:00)
[2021-09-09] MEDS: PANTOPRAZOLE 40MG TAB (PROTONIX) PO SCH (12:43)
[2021-09-09] MEDS: HYDROmorphone 2 MG TAB PO PRN (14:51)
[2021-09-09 15:35] VITALS: BP 108/71
[2021-09-09] MEDS ORDERED: WARFARIN SOD 4MG TAB PO SCH (17:00)
[2021-09-09 17:30] VITALS: BP 118/58
[2021-09-09] MEDS ORDERED: DEXTROSE 50% 50 ML SYRINGE IV STA (17:36)
[2021-09-09 18:26] LABS: CK-MB VALUE MASS 1.9 NG/ML (<3.6)
[2021-09-09 20:00] VITALS: BP 102/56
[2021-09-09] MEDS ORDERED: INSULIN LISPRO (NovoLOG) PER UNIT SC SCH (21:00)
[2021-09-10] VITALS: BP 106/71
[2021-09-10] MEDS: HYDROmorphone 2 MG TAB PO PRN ×4 (00:31→13:45)
[2021-09-10 02:17] LABS: CK-MB VALUE MASS 2.3 NG/ML (<3.6); MB/CK RELATIVE INDEX 13.53 (< OR =4)
[2021-09-10] MEDS ORDERED: VANCOMYCIN HCL 1,000 MG, VIAL MATE ADAPTER 1 EACH in NS 250 ML IV ONE (03:00)
[2021-09-10 03:38] LABS: CALCIUM LEVEL 8.2 MG/DL (8.8-10.2); CREATININE FOR GFR 4.92 MG/DL (0.70-1.30); GLOMERULAR FILTRATION RATE 12.3 (>42); MAGNESIUM LEVEL 1.8 MG/DL (1.8-2.4); POTASSIUM SERUM 3.6 MEQ/L (3.5-5.1)
[2021-09-10 04:00] VITALS: BP 108/63
[2021-09-10 04:48] VITALS: BP 110/58
[2021-09-10] MEDS: METOPROLOL TART 25 MG TABLET PO SCH ×3 (06:00→11:57)
[2021-09-10] MEDS: INSULIN LISPRO (NovoLOG) PER UNIT SC SCH ×2 (06:31→12:00)
[2021-09-10 07:52] VITALS: BP 121/57
[2021-09-10 08:56] LABS: HEMATOCRIT 27.9 % (42.0-52.0); HEMOGLOBIN 8.5 g/dl (13.5-17.5); MEAN CORPUSCULAR HEMOGLOBIN 31.1 pg (27.0-33.0); MEAN CORPUSCULAR HGB CONC 30.5 g/dl (32.0-36.5); MEAN CORPUSCULAR VOLUME 102.2 fl (80.0-96.0); PLATELET COUNT, AUTOMATED 192 10^3/uL (150-450); RED BLOOD COUNT 2.73 10^6/uL (4.30-6.10); WHITE BLOOD COUNT 15.7 10^3/uL (4.0-10.0)
[2021-09-10] MEDS ORDERED: DIGOXIN INJ 0.5 MG/2 ML AMP (J1160) IV SCH (09:00)
[2021-09-10] MEDS: PANTOPRAZOLE 40MG TAB (PROTONIX) PO SCH (09:05)
[2021-09-10 09:13] LABS: INR 2.97; PROTHROMBIN TIME 31.2 SECONDS (12.7-14.5)
[2021-09-10 09:32] LABS: ALBUMIN 1.7 GM/DL (3.2-5.2); CALCIUM LEVEL 8.4 MG/DL (8.8-10.2); CK-MB VALUE MASS 2.6 NG/ML (<3.6); CREATININE FOR GFR 5.03 MG/DL (0.70-1.30); MB/CK RELATIVE INDEX 10.4 (< OR =4); PHOSPHORUS LEVEL 3.2 MG/DL (2.5-4.9); POTASSIUM SERUM 4.4 MEQ/L (3.5-5.1)
[2021-09-10] MEDS ORDERED: VANCOMYCIN HCL 1,000 MG, VIAL MATE ADAPTER 1 EACH in NS 250 ML IV SCH (09:50)
[2021-09-10] MEDS ORDERED: LANO62.5 PO (10:17)
[2021-09-10 11:32] VITALS: BP 101/61
[2021-09-10 11:57] VITALS: BP 101/61
== END 2021-09-10 13:54 | disposition home or self-care (01) ==
LOC: EDBD 09:08 → M ED 09:08 → M ED INP 09:09 → ENRESERV 14:17 → M PCU 15:26
PROVIDERS: ADMIT Family Medicine; ATTEND Family Medicine
DX: R55 Syncope and collapse (principal); I48.0 Paroxysmal atrial fibrillation; N18.6 End stage renal disease; I12.0 Hypertensive chronic kidney disease with stage 5 chronic kidney disease or end stage renal disease; E11.649 Type 2 diabetes mellitus with hypoglycemia without coma; E11.621 Type 2 diabetes mellitus with foot ulcer; G20 Parkinson's disease; L97.509 Non-pressure chronic ulcer of other part of unspecified foot with unspecified severity; D63.1 Anemia in chronic kidney disease; D72.829 Elevated white blood cell count, unspecified; B95.8 Unspecified staphylococcus as the cause of diseases classified elsewhere; Z86.16 Personal history of COVID-19; I25.10 Atherosclerotic heart disease of native coronary artery without angina pectoris; I73.9 Peripheral vascular disease, unspecified; I50.9 Heart failure, unspecified; Z91.018 Allergy to other foods; Z88.0 Allergy status to penicillin; Z88.8 Allergy status to other drugs, medicaments and biological substances; Z88.5 Allergy status to narcotic agent; Z79.51 Long term (current) use of inhaled steroids; Z79.899 Other long term (current) drug therapy; Z79.84 Long term (current) use of oral hypoglycemic drugs; Z79.01 Long term (current) use of 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s; R74.02 Elevation of levels of lactic acid dehydrogenase [LDH]
CPT/HCPCS: 36415; 70450; 71045; 71250; 74176; 80048; 80069; 80076; 80143; 82077; 82140; 82550; 82553; 83605; 83735; 84443; 84484; 85025; 85027; 85610; 85730; 87040; 87077; 87186; 87631; 93005; 93041; 93970; 94760; 96365; 96367; 96375; 96376; 99285; G0378; J1160; J1956; J3370